=== PATIENT | female | born 1950 | race Caucasian/White ===

== ENCOUNTER → 2017-11-12 09:29 | Outpatient (CLI) | payer OTHER, SELFPAY ==
[2017-11-12 10:06] LABS: Hemoglobin A1c 7.7 % (4.2-6.3)
== END ==
PROVIDERS: Family Provider Family Medicine; PCP Family Medicine; Visit Provider Family Medicine
DX: E11.65 Type 2 diabetes mellitus with hyperglycemia (principal)
CPT/HCPCS: 36415; 83036

== ENCOUNTER → 2018-03-01 11:09 | Outpatient (CLI) | payer OTHER, SELFPAY ==
[2018-03-01 12:26] LABS: AST(SGOT) 36 U/L (15-37); Alanine Aminotransfer ALT/SGPT 44 U/L (13-56); Albumin, Serum 3.6 g/dL (3.2-5.0); Alkaline Phosphatase 64 U/L (45-117); Bilirubin, Direct 0.11 mg/dL (0.00-0.30); Cholesterol 213 mg/dL (200); Globulin 3.9 g/dL (2.2-4.2); High Density Lipoprotein 36 mg/dL; Protein, Total 7.5 g/dL (6.4-8.2); Triglycerides 576 mg/dL
== END ==
PROVIDERS: Family Provider Family Medicine; PCP Family Medicine; Visit Provider Family Medicine
DX: E78.5 Hyperlipidemia, unspecified (principal); E11.65 Type 2 diabetes mellitus with hyperglycemia
CPT/HCPCS: 36415; 80061; 80076

== ENCOUNTER → 2018-03-08 12:14 | Outpatient (CLI) | payer OTHER, SELFPAY ==
[2018-03-08 12:41] LABS: Erythrocyte Sedimentation Rate 14 mm/hr (0-30)
[2018-03-08 12:59] LABS: Hemoglobin A1c 8.4 % (4.2-6.3)
[2018-03-08 13:03] LABS: Rheumatoid Factor < 10.0 IU/mL (<15)
[2018-03-09 14:48] LABS: ANTINUCLEAR ANTIBODIES DIRECT Negative (Negative)
== END ==
PROVIDERS: Family Provider Family Medicine; PCP Family Medicine; Visit Provider Family Medicine
DX: E11.65 Type 2 diabetes mellitus with hyperglycemia (principal); M25.50 Pain in unspecified joint
CPT/HCPCS: 36415; 83036; 85652; 86038; 86431

== ENCOUNTER → 2018-04-25 10:04 | Outpatient (CLI) | payer OTHER, SELFPAY ==
--- NOTE | 2018-04-25 10:07 | BI_ITS ---
MAMMOGRAPHY - BILATERAL SCREENING REASON FOR EXAM: Female, 67 years old. Routine annual screening examination. PERTINENT HISTORY: Non-contributory. History of bilateral excisional breast biopsy. TECHNIQUE: Digital bilateral breast deedee (3D mammographic acquisition) in the CC and MLO projections. 2-D mediolateral oblique (MLO) and craniocaudad (CC) views of both breasts were obtained. CAD: Full Field Digital Mammography with Computer Added Detection was performed. COMPARISON: Comparison is made with prior examination dated April 22, 2017. FINDINGS: Breast Composition: The breasts are almost entirely fatty. There are no dominant masses or suspicious calcifications. Stable 6 mm well-defined nodule in the mid lateral aspect of the left breast. This most likely represents a small lymph node. No other significant abnormalities are identified. There has been no significant change since the prior study. BI/SCREENING MAMM (CAD), BILAT IMPRESSION: Stable bilateral screening mammogram. Yearly follow-up mammogram recommended. (A) ASSESSMENT CATEGORY: BIRADS Category 2: Benign. A letter regarding these results will be sent to the patient by the facility within 30 days. Approximately 10% of breast cancers are not detected by mammography. A normal mammogram should not delay biopsy of a clinically suspicious abnormality. [id number] Electronically Signed: Geoffrey Al MD at 13:20 EDT Tel [phone], Service support ,
--- NOTE | 2018-04-25 10:12 | BI_ITS ---
MAMMOGRAPHY - BILATERAL SCREENING REASON FOR EXAM: Female, 67 years old. Routine annual screening examination. PERTINENT HISTORY: Non-contributory. History of bilateral excisional breast biopsy. TECHNIQUE: Digital bilateral breast ford (3D mammographic acquisition) in the CC and MLO projections. 2-D mediolateral oblique (MLO) and craniocaudad (CC) views of both breasts were obtained. CAD: Full Field Digital Mammography with Computer Added Detection was performed. COMPARISON: Comparison is made with prior examination dated April 22, 2017. FINDINGS: Breast Composition: The breasts are almost entirely fatty. There are no dominant masses or suspicious calcifications. Stable 6 mm well-defined nodule in the mid lateral aspect of the left breast. This most likely represents a small lymph node. No other significant abnormalities are identified. There has been no significant change since the prior study. BI/Bilat Brst Screen [place] Add-On IMPRESSION: Stable bilateral screening mammogram. Yearly follow-up mammogram recommended. (A) ASSESSMENT CATEGORY: BIRADS Category 2: Benign. A letter regarding these results will be sent to the patient by the facility within 30 days. Approximately 10% of breast cancers are not detected by mammography. A normal mammogram should not delay biopsy of a clinically suspicious abnormality. [id number] Electronically Signed: Geoffrey Al MD at 13:20 EDT Tel [phone], Service support ,
== END ==
PROVIDERS: Family Provider Family Medicine; PCP Family Medicine; Visit Provider Obstetrics & Gynecology
DX: Z12.31 Encounter for screening mammogram for malignant neoplasm of breast (principal)
CPT/HCPCS: 77063; 77067

== ENCOUNTER → 2018-05-18 15:40 | Outpatient (CLI) | payer OTHER, SELFPAY ==
[2018-05-24 14:39] LABS: HPV APTIMA, High Risk Positive (Negative)
== END ==
PROVIDERS: Family Provider Family Medicine; PCP Family Medicine; Referring Provider Nurse Practitioner Women's Health; Visit Provider Nurse Practitioner Women's Health
DX: Z12.4 Encounter for screening for malignant neoplasm of cervix (principal)
CPT/HCPCS: 88175; G0145

== ENCOUNTER → 2018-06-08 08:28 | Outpatient (CLI) | payer OTHER, SELFPAY | PROVIDERS: Family Provider Family Medicine; PCP Family Medicine; Referring Provider Family Medicine; Visit Provider Family Medicine | DX: E11.65 Type 2 diabetes mellitus with hyperglycemia (principal) | CPT/HCPCS: 36415; 83036 ==

== ENCOUNTER 2018-09-28 13:00 | Outpatient (RCR) | payer OTHER, SELFPAY ==
[2018-07-22 10:37] VITALS: BMI 36.2
--- NOTE | 2018-09-06 10:14 | HP.PTEVAL_ITS ---
Patient's Visit Information JANESSA TORREZ is a 68 year old F referred to Physical Therapy by INDU Cohen with a diagnosis of lumbar IVDD, lumbar radiculopathy. Date of Evaluation: 09/01/18 Physical Therapist: Jonathan Melgoza DPT - Visit Plan Frequency: 2-3x /Week Duration: 4-6 Weeks Plan: Start with modalies to reduce symptoms. Pt. to be re assessment by Ariana Cantu PT with a more Sammy approach. Plan of care being swith to Ariana Cantu at this point in time. - Subjective Findings: Pt. is here today for here initial evaluation with diagnosis of lumbar radiculopathy, IVDD or lumbar region. Pt. reports having increased pain for a few months now, but has become worse recently. She was going to chiropractor and would have relief for 1 week or so. Pt. has stopped going to chiropractor as consistently. Pt. has pain in lumbar spine and down both legs at times,but R is worse than left. Pt. reports pain does not extend below her knee anymore. She reports she was having N/T in her feet, but has relieved since seeing chiropractor. Pt. reprots having initial relief with chiro, but is not fully better. pt. has greatest pain in her hips currently. Pt. is hopeful to reduce symptosm in order to get back to all recreational dancing. - Pain lumbar spine Pain Intensity (Out of 10): 4 Pain Intensity Range: 2, 8 BLEs Pain Intensity (Out of 10): 4 Pain Intensity Range: 2, 8 - Objective POSTURE: Pt. has generally slouched posture. Pt. has reduced lumbar lordosis. Equal illiac crest heights bilaterally. PALPATION: pt. has increasd pain with palpation of lumbar erector spine and spring testing of L1-S1 (hypomobiltiy noted). NEURO: pt. has normal sensation of bilateral LEs. Pt. has normal DTR of bilateral LEs. Pt. is able to rise on her heels and toes without LOB, but did require balance aide. ROM: LUMBAR SPINE: Flexion- min loss increase NW, Ext mod/max loss increase NW, SB min loss bilat NE, rotation min loss bilat NE. Pt. has greatest problems with attempts to extend. Pt. has tight bilateral HS. Pt. has tight bilateral hip flexors. Tight piriformis bilaterally. Pt. has pain with bilateral hip IR and ER (but not groin pain). MMT: PT. has 5/5 strength of bilateral LEs, except hip abd 4/5 and hip ext 4/5. Core strength- poor. GAIT: Pt. has reduced step length bilaterally. Pt. has minimal arm swing and gaurded posture with gait. Pt. reports increased pain with walking and standing. STAIRS: Pt. is able to negotiate with 1 HR with reciprocal pattern. - Special Tests L/S Slump test left side: Negative L/S Slump test right side: Negative L/S Left Straight Leg Raise: Negative L/S Right Straight Leg Raise: Negative Lumbar Standing: Flexion - Mechanical Response: No effect Lumbar Standing: Flexion - Symptoms During Testing: Increases Lumbar Standing: Flexion - Symptoms After Testing: No worse Lumbar Standing: Extension - Mechanical Response: No effect Lumbar Standing: Extension - Symptoms During Testing: Increases Lumbar Standing: Extension - Symptoms After Testing: No worse Comments:: limited ROM with extension Lumbar Standing: Right Side Glides - Mechanical Response: No effect Lumbar Standing: Right Side [place] - Symptoms During Testing: No effect Lumbar Standing: Right Side [place] - Symptoms After Testing: No effect Lumbar Standing: Left Side [place] - Mechanical Response: No effect Lumbar Standing: Left Side [place] - Symptoms During Testing: No effect Lumbar Standing: Left Side [place] - Symptoms After Testing: No effect Comments:: Pt. unable to lie on stomach today. Lumbar Static: Slouched Sit - Mechanical Response: No effect Lumbar Static: Slouched Sit - Symptoms During Testing: No effect Lumbar Static: Slouched Sit - Symptoms After Testing: No effect Lumbar Static: Sitting Erect - Mechanical Response: No effect Lumbar Static: Sitting Erect - Symptoms During Testing: No effect Lumbar Static: Sitting Erect - Symptoms After Testing: No effect - Goals Goal 1:: Pt. to be I with HEP. Goal Time Frame: 4-6 Weeks Goal 2:: Pt. to have increased lumbar ROM by 25% in all directions without increase in symptoms. Goal Time Frame: 4-6 Weeks Goal 3:: Pt. to sleep throughout the night with 0-2/10 pain in lumbar spine and BLEs allowing for increased quality of life. Goal Time Frame: 4-6 Weeks Goal 4:: Pt. to have increased core strength by 1/2 grade, reducing stress applied to lumbar spine with all functional mobility. Goal Time Frame: 4-6 Weeks Goal 5:: Pt. to be educated in prophalxis techniques. Goal Time Frame: 4-6 Weeks Goal 6:: Pt. to resume dancing without increase in symptoms. Goal Time Frame: 4-6 Weeks - Rehabilitation Potential Physical Therapy Diagnosis: Pt. has signs and symptoms consistent with lumbar IVDD and lumbar radiculopathy. Pt. has very limited ROM into ext and did not appear to have a dirctional preference this date. Pt. has radiating symptoms into LEs. Pt. would benefit from PT to increase lumbar ROM, increase core/BLE strengthening and to reduce her lumbar pain. Rehabilitation Potential: Good - Anticipated Interventions Patient/Client Instruction: Educate patient on: Condition, Plan of Care, Risk Factors, Benefits of Fitness Program For the Purpose of:: To improve decision making, To facilitate caregiver knowledge, To improve self management, To prevent re-injury, To improve ability to perform tasks related to life management, To improve tolerance to ADL's Therapeutic Exercise to Include: Strength training, Power training, Endurance training, Balance training, Coordination, Body mechanics, Postural training, Flexibilty training, Passive ROM, Active ROM, Dynamic Lumbar Stabilization, Sammy Exercises For the Purpose of:: To decrease pain, To decrease swelling/inflammation, To increase ROM, To increase oxygenation perfusion, To improve muscle performance and motor function, To decrease level of supervision to perform tasks, To improve health of tissue, To decrease soft tissue restriction, To increase flexibility/ROM Manual Therapy Techniques to Include: Mobilization, Passive ROM, Functional dry needling, Soft tissue mobilization For the Purpose of:: To decrease pain, To decrease swelling/inflammation, To increase ROM, To improve nutrient delivery to tissue TENS: Yes IF ES: Yes Cryotherapy (ice pack, ice massage): Yes Thermo therapy (hot pack): Yes Ultrasound (thermal/non thermal): Yes For the Purpose of:: To decrease pain, To decrease swelling/inflammation, To increase ROM, To improve nutrient delivery to tissue Thank you for the opportunity to evaluate your patient. For Medicare and Medicare HMO plans, please review the plan of care and approve it. It will need to be FAXED BACK to us at [phone] for Medicare purposes. For Medicare only, by signing this I certify the plan of care. Please let me know if there are questions or concerns regarding this plan of care. Physician Signature: Date:
--- NOTE | 2018-09-28 13:45 | HP.PTDCSUM ---
HP - PT D/C Summary It has been my pleasure to treat JANESSA TORREZ under orders from INDU Cohen, for the diagnosis of lumbar IVDD, lumbar radiculopathy for a total of 10 visit(s). Discharge Date: Please see the following information for a summary of their discharge status. - Subjective Subjective: PATIENT REPORTS HER BACK ISN'T HURTING ANYMORE AND HER LEGS AREN'T SORE. STATES SHE THINKS SHE IS GETTING MORE USE TO THE EX'S. BECOMING MORE ACTIVE AND SOMETIMES FORGETS GOOD POSTURE AND BODY MECHANICS BECAUSE SHE DOESN'T HAVE PAIN. PATIENT REPORTS SHE DID HER EX'S YESTERDAY BUT DIDN'T TRY DANCING - IS STILL SICK. I KNOW I AM A LOT BETTER. PATIENT IS REPORTING CONTINUED IMPROVEMENT. - Pain lumbar spine Pain Intensity (Out of 10): 0 BLEs Pain Intensity (Out of 10): 0 - Overall Improvement % Improvement: 90 - Objective Objective/Function: ALL GOALS MET. PATIENT NO LONGER HAS C/O LBP, HAS BEEN TAUGHT PROPER POSTURE CONROL/BODY MECHANICS AND IS INDEP WITH A HOME PROGRAM. UPON EXAM TODAY: PALPATION: NO TENDERNESS WITH PALPATION OF LUMBAR, BUTTOCK OR HIP REGIONS. ROM: LUMBAR SPINE: Flexion- NIL - NE, Ext mod- NE, RIGHT SG - MIN - NE, LEFT SG - NIL. ARSALAN TESTING - NEGATIVE KAYLA. DURAL TESTING - NEGATIVE KAYLA. MMT: KAYLA LE STRENGTH 5/5 WITH MMT'ING. Core strength- FAIR MINUS. OTHER: BACK OSWESTRY HAS IMPROVED FROM 23 TO 10. - Goals Goal 1:: Pt. to be I with HEP. Goal Progress: Goal Met Goal 2:: Pt. to have increased lumbar ROM by 25% in all directions without increase in symptoms. Goal Progress: Goal Met Goal 3:: Pt. to sleep throughout the night with 0-2/10 pain in lumbar spine and BLEs allowing for increased quality of life. Goal Progress: Goal Met Goal 4:: Pt. to have increased core strength by 1/2 grade, reducing stress applied to lumbar spine with all functional mobility. Goal Progress: Goal Met Goal 5:: Pt. to be educated in prophalxis techniques. Goal Progress: Goal Met Goal 6:: Pt. to resume dancing without increase in symptoms. Goal Progress: Progressing - Plan Plan: D/C TO [facility] HOME PROGRAM. PATIENT IS AGREEABLE. - D/C Information If there are questions or concerns regarding this patient's physical therapy, please feel free to call me at [phone]. Thank you for the referral of this patient. Sincerely, Ariana Cantu PT, Cert MDT
--- OUTSIDE RECORDS SUMMARY | 2018-11-05 20:05 | XMS RPT_ITS ---
:1950 Author Organization OHIP Care Team Providers Name Role Phone Kali Dueñas Attending Unavailable Kali Dueñas Referring Unavailable Kali Deuñas Primary Care Unavailable Sarah William Attending Unavailable Kali Dueñas Primary Care Unavailable Sarah William Attending Unavailable Kali Dueñas Referring Unavailable Kali Dueñas Attending Unavailable Kali Dueñas Referring Unavailable Kali Dueñas Primary Care Unavailable Chanda Sanz Attending Unavailable Chanda Sanz Referring Unavailable Kali Dueñas Primary Care Unavailable Kali Dueñas Attending Unavailable Kali Dueñas Referring Unavailable Kali Dueñas Primary Care Unavailable Kali Dueñas Attending Unavailable SpenserKali Primary Care Unavailable Kali Smith PA-C Attending Unavailable Grayson Dueñasmond Primary Care Unavailable Chanda Sanz Attending Unavailable Kali Dueñas Referring Unavailable PROBLEMS PROBLEMS DATE TYPE CONDITION / CODE ATTENDING STATUS SOURCE 07/22/2018 Unknown R87.619 - Marcaisha, Active [facility] abnormal Hospital cytological Repository findings in specimens from cervix uteri / R87.619(ICD-10) 06/08/2018 Unknown E11.65 - Type 2 Kali Dueñas Active [place] diabetes mellitus [facility] with hyperglycemia Hospital / E11.65(ICD-10) Repository 05/18/2018 Unknown R10.2 - Pelvic and Chanda Sanz Active [place] perineal pain / Community R10.2(ICD-10) Hospital Repository 03/08/2018 Unknown M25.50 - Pain in Kali Dueñas Active [place] unspecified joint / Community M25.50(ICD-10) Hospital Repository 03/01/2018 Unknown E78.5 - Kali Dueñas Active [place] Hyperlipidemia, [facility] unspecified / Hospital E78.5(ICD-10) Repository PROCEDURES PROCEDURES No Procedure Records FoundRESULTS RESULTS INITAL EVALUATION (1) Observed: 09/06/2018 Status: F Source: [place] - PT 10:14 AM [facility] REPOSITORY [facility] [place] [address] / REHABILITATION SERVICES INITIAL EVALUATION MR#: [id number] Acct: [id number] Name: ASHWINI TORREZ Rep #: [id number] : 1950 68 From: Jonathan Melgoza DPT Referring Dr.: Kali GRIGGS Status: REG RCR Insurance: [facility] SELF PAY INSURANCE Patient's Visit Information ASHWINI TORREZ is a 68 year old F referred to Physical Therapy by INDU Cohen with a diagnosis of lumbar IVDD, lumbar radiculopathy. Date of Evaluation: 09/01/18 Physical Therapist: Jonathan Melgoza DPT - Visit Plan Frequency: 2-3x /Week Duration: 4-6 Weeks Plan: Start with modalies to reduce symptoms. Pt. to be re assessment by Ariana Cantu PT with a more Sammy approach. Plan of care being swith to Ariana Cantu at this point in time. - Subjective Findings: Pt. is here today for here initial evaluation with diagnosis of lumbar radiculopathy, IVDD or lumbar region. Pt. reports having increased pain for a few months now, but has become worse recently. She was going to chiropractor and would have relief for 1 week or so. Pt. has stopped going to chiropractor as consistently. Pt. has pain in lumbar spine and down both legs at times,but R is worse than left. Pt. reports pain does not extend below her knee anymore. She reports she was having N/T in her feet, but has relieved since seeing chiropractor. Pt. reprots having initial relief with chiro, but is not fully better. pt. has greatest pain in her hips currently. Pt. is hopeful to reduce symptosm in order to get back to all recreational dancing. - Pain lumbar spine Pain Intensity (Out of 10): 4 Pain Intensity Range: 2, 8 BLEs Pain Intensity (Out of 10): 4 Pain Intensity Range: 2, 8 - Objective POSTURE: Pt. has generally slouched posture. Pt. has reduced lumbar lordosis. Equal illiac crest heights bilaterally. PALPATION: pt. has increasd pain with palpation of lumbar erector spine and spring testing of L1-S1 (hypomobiltiy noted). NEURO: pt. has normal sensation of bilateral LEs. Pt. has normal DTR of bilateral LEs. Pt. is able to rise on her heels and toes without LOB, but did require balance aide. ROM: LUMBAR SPINE: Flexion- min loss increase NW, Ext mod/max loss increase NW, SB min loss bilat NE, rotation min loss bilat NE. Pt. has greatest problems with attempts to extend. Pt. has tight bilateral HS. Pt. has tight bilateral hip flexors. Tight piriformis bilaterally. Pt. has pain with bilateral hip IR and ER (but not groin pain). MMT: PT. has 5/5 strength of bilateral LEs, except hip abd 4/5 and hip ext 4/5. Core strength- poor. GAIT: Pt. has reduced step length bilaterally. Pt. has minimal arm swing and gaurded posture with gait. Pt. reports increased pain with walking and standing. STAIRS: Pt. is able to negotiate with 1 HR with reciprocal pattern. - Special Tests L/S Slump test left side: Negative L/S Slump test right side: Negative L/S Left Straight Leg Raise: Negative L/S Right Straight Leg Raise: Negative Lumbar Standing: Flexion - Mechanical Response: No effect Lumbar Standing: Flexion - Symptoms During Testing: Increases Lumbar Standing: Flexion - Symptoms After Testing: No worse Lumbar Standing: Extension - Mechanical Response: No effect Lumbar Standing: Extension - Symptoms During Testing: Increases Lumbar Standing: Extension - Symptoms After Testing: No worse Comments:: limited ROM with extension Lumbar Standing: Right Side Glides - Mechanical Response: No effect Lumbar Standing: Right Side [place] - Symptoms During Testing: No effect Lumbar Standing: Right Side [place] - Symptoms After Testing: No effect Lumbar Standing: Left Side [place] - Mechanical Response: No effect Lumbar Standing: Left Side [place] - Symptoms During Testing: No effect Lumbar Standing: Left Side [place] - Symptoms After Testing: No effect Comments:: Pt. unable to lie on stomach today. Lumbar Static: Slouched Sit - Mechanical Response: No effect Lumbar Static: Slouched Sit - Symptoms During Testing: No effect Lumbar Static: Slouched Sit - Symptoms After Testing: No effect Lumbar Static: Sitting Erect - Mechanical Response: No effect Lumbar Static: Sitting Erect - Symptoms During Testing: No effect Lumbar Static: Sitting Erect - Symptoms After Testing: No effect - Goals Goal 1:: Pt. to be I with HEP. Goal Time Frame: 4-6 Weeks Goal 2:: Pt. to have increased lumbar ROM by 25% in all directions without increase in symptoms. Goal Time Frame: 4-6 Weeks Goal 3:: Pt. to sleep throughout the night with 0-2/10 pain in lumbar spine and BLEs allowing for increased quality of life. Goal Time Frame: 4-6 Weeks Goal 4:: Pt. to have increased core strength by 1/2 grade, reducing stress applied to lumbar spine with all functional mobility. Goal Time Frame: 4-6 Weeks Goal 5:: Pt. to be educated in prophalxis techniques. Goal Time Frame: 4-6 Weeks Goal 6:: Pt. to resume dancing without increase in symptoms. Goal Time Frame: 4-6 Weeks - Rehabilitation Potential Physical Therapy Diagnosis: Pt. has signs and symptoms consistent with lumbar IVDD and lumbar radiculopathy. Pt. has very limited ROM into ext and did not appear to have a dirctional preference this date. Pt. has radiating symptoms into LEs. Pt. would benefit from PT to increase lumbar ROM, increase core/BLE strengthening and to reduce her lumbar pain. Rehabilitation Potential: Good - Anticipated Interventions Patient/Client Instruction: Educate patient on: Condition, Plan of Care, Risk Factors, Benefits of Fitness Program For the Purpose of:: To improve decision making, To facilitate caregiver knowledge, To improve self management, To prevent re-injury, To improve ability to perform tasks related to life management, To improve tolerance to ADL's Therapeutic Exercise to Include: Strength training, Power training, Endurance training, Balance training, Coordination, Body mechanics, Postural training, Flexibilty training, Passive ROM, Active ROM, Dynamic Lumbar Stabilization, Sammy Exercises For the Purpose of:: To decrease pain, To decrease swelling/inflammation, To increase ROM, To increase oxygenation perfusion, To improve muscle performance and motor function, To decrease level of supervision to perform tasks, To improve health of tissue, To decrease soft tissue restriction, To increase flexibility/ROM Manual Therapy Techniques to Include: Mobilization, Passive ROM, Functional dry needling, Soft tissue mobilization For the Purpose of:: To decrease pain, To decrease swelling/inflammation, To increase ROM, To improve nutrient delivery to tissue TENS: Yes IF ES: Yes Cryotherapy (ice pack, ice massage): Yes Thermo therapy (hot pack): Yes Ultrasound (thermal/non thermal): Yes For the Purpose of:: To decrease pain, To decrease swelling/inflammation, To increase ROM, To improve nutrient delivery to tissue Thank you for the opportunity to evaluate your patient. For Medicare and Medicare HMO plans, please review the plan of care and approve it. It will need to be FAXED BACK to us at [phone] for Medicare purposes. For Medicare only, by signing this I certify the plan of care. Please let me know if there are questions or concerns regarding this plan of care. 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 [place] [address] OFFICE VISIT Date of Service: 05/18/18 MR#: [id number] Acct: [id number] Name: ASHWINI TORREZ Rep #: [id number] : 1950 Provider: JENNIFER Sanz Age/Sex: 67/F Location: [facility] Status: Signed with Addenda ADDENDUM by JENNIFER Sanz on 08/29/18 at 1640 Addendum entered and electronically signed by SHANKAR Mccabe 08/29/18 16:40: Rectal exam was deferred. No masses palpated Assessment AND Plan Problems 1. Encounter for gynecological examination with abnormal finding Z01.411 2. 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 Pelvic pain in female R10.2 4. Atrophic vaginitis N95.2 5. Recurrent UTI N39.0 Plan - SHANKAR Mccabe Completed breast and pelvic exam Reviewed diet and exercise Pap thin prep pap with HPV Mammogram recent Ultrasound Colonoscopy up to date Bone density follow with PCP Macrobid 100mg postcoidally Rx start premarin vaginal cream OTC lubricant with intercourse RTO 1 year, prn with problems Chanda Sanz CORPORATE TAX MANAGER Orders Orders: Medications New: nitrofurantoin monohyd/m-cryst 100 mg 100 mg PO after intercourse; must administer with a meal/food 30 caps 0RF Discontinued: conjugated estrogens Discontinued Reason: Peasized amount at vaginal opening every othe Order Changed r night X 4 weeks then twice a week 30 grams 2RF 08/29/18 1640 <Electronically signed by Chanda CHAPARRO> Date Chanda Sanz SPINNING FRAME CLEANER-C cc: * Signed Intake Vital Signs05/18/18 Height 5 ft 3 in 05/18/18 Weight: 201 lb 05/18/18 Body Mass Index (BMI) 35.6 05/18/18 Blood Pressure 162/98 H Intake Visit Reasons: ANNUAL Chief Complaint: est annual Respiratory Care Technician Required: No Is patient in pain?: No Allergies acetaminophen [From NyQuil] Allergy (Verified 05/18/18 09:51) Hives amoxicillin [From Augmentin] Allergy (Verified 05/18/18 09:51) Hives cefprozil [From Cefzil] Allergy (Verified 05/18/18 09:51) Hives clavulanic acid [From Augmentin] Allergy (Verified 05/18/18 09:51) Hives dextromethorphan [From NyQuil] Allergy (Verified 05/18/18 09:51) Hives doxylamine [From NyQuil] Allergy (Verified 05/18/18 09:51) Hives erythromycin base Allergy (Verified 05/18/18 09:51) Hives gatifloxacin [From Tequin] Allergy (Verified 05/18/18 09:51) Hives ibuprofen [From DayQuil Sinus Pressure/Pain] Allergy (Verified 05/18/18 09:51) Other Iodinated Contrast- Oral and IV Dye [CONTRASTS] Allergy (Verified 05/18/18 09:51) Hives lincomycin Allergy (Verified 05/18/18 09:51) Hives metoclopramide [From Reglan] Allergy (Verified 05/18/18 09:51) Other pseudoephedrine [From NyQuil] Allergy (Verified 05/18/18 09:51) Hives CHOLESTEROL MEDS Allergy (Uncoded 05/18/18 09:51) Other Medications Budesonide/Formoterol 160/4.5 [Symbicort 160/4.5 Mcg Inhaler (SP)] 2 puff INHALATION BID PRN 05/21/16 [History Confirmed 05/18/18] Calcium Carbonate [Calcium] 600 mg PO DAILY 05/21/16 [History Confirmed 05/18/18] Lisinopril/Hydrochlorothiazide [Zestoretic 20/12.5 Tablet] 1 tab PO BID 05/21/16 [History Confirmed 05/18/18] Metformin HCl [Metformin HCl ER] 1,000 mg PO DAILY 05/21/16 [History Confirmed 05/23/17] Metformin HCl [Metformin HCl ER] 500 mg PO QHS 05/21/16 [History Confirmed 05/18/18] Montelukast [Singulair] 10 mg PO DAILY 05/21/16 [History Confirmed 05/23/17] Simvastatin [Zocor] 40 mg PO DAILY 05/21/16 [History Confirmed 05/18/18] Hydroxyzine HCl 25 mg PO DAILY 01/31/17 [History Confirmed 05/23/17] Phenazopyridine HCl [Pyridium] 200 mg PO BID PRN PRN #10 tab 05/23/17 [Rx] cetirizine 10 mg capsule PO cap 05/18/18 [History Confirmed 05/18/18] conjugated estrogens 0.625 mg/gram vaginal cream See Rx Instructions .ROUTE .COMPLEX #30 g 05/18/18 [Rx Confirmed 05/18/18] methylcellulose (laxative) 500 mg tablet 500 mg PO ONCE 05/18/18 [History Confirmed 05/18/18] multivitamin,lx-dsml-ubpwnnlt tablet 1 tab PO DAILY 05/18/18 [History Confirmed 05/18/18] nitrofurantoin monohydrate/macrocrystals 100 mg capsule 100 mg PO .COMPLEX #30 cap 05/18/18 [Rx Confirmed 05/18/18] omeprazole 40 mg capsule,delayed release 40 mg PO DAILY 05/18/18 [History Confirmed 05/18/18] Is last menstrual period known: No Post menopausal: Yes Patient : No : No PFSH Medical History Arthritis (Acute) Asthma (Acute) Carotid stenosis (Acute) Diabetes (Acute) Gastrointestinal problem (Acute) High triglycerides (Acute) Hyperlipidemia (Acute) Mass of both breasts on mammogram (Acute) Hypertension (Chronic) Surgical History H/O oophorectomy (Acute) H/O tubal ligation (Acute) History of ear surgery (Acute) Hx of cholecystectomy (Acute) fallopian tube surgery (Acute) Family History Father No problems noted. Mother CVA (cerebral vascular accident) Heart disease Sister Cancer lung Social History Smoking Status: Never smoker alcohol intake: never substance use type: does not use caffeine: Yes what type of physical activity do you participate in: walking seatbelt use: always do you feel safe at home: Yes additional social history: [employer]- Patient is retired Pregancy History 3 Elective abortions Hx Para 0 Spontaneous abortions 3 HPI ANNUAL: Details: ASHWINI TORREZ is a 67 year old who presents for annual exam. Recurrent UTI but only after intercourse. Affecting marriage. Also states vaginal dryness problematic. She is also have pain in lower left abdomen and feels lumps. Sister with colon cancer/mets Last PAP: 2016 neg pap with positive HPV History of abnormal PAP: yes Last mammogram: 04/2018 History of abnormal mammogram: no Colon cancer screenin-rpt 10 years Other preventative health care screenings: BMD with PCP Female Reproductive History Menopausal Treatment: Yes HRT (Took oral short time after menopause but many years ago) ROS Const Constitutional: Denies fatigue, weight gain or weight loss Cardio Card: Denies chest pain Resp Resp: Denies cough or shortness of breath with activity GI GI: Denies abdominal pain, constipation, change in stools, vomiting or bloating : Reports as per HPI; denies urinary frequency, pelvic pain, urinary urgency, vaginal discharge, vaginal itching, urinary incontinence or difficulty urinating Exam Const General: cooperative, healthy appearing, no acute distress, well developed Orientation: alert, oriented to person, oriented to place HENMT Head: normal to inspection Neck Neck: normal visual inspection Thyroid: thyroid normal Lymphatic: no lymphadenopathy noted Chest Breast inspection: normal inspection of the breasts, normal inspection of the axillae Breast palpation: normal palpation of the breasts, normal palpation of the axillae, no axillary lymphadenopathy Resp Effort AND Inspection: normal respiratory effort GI Palpation: soft, nontender, no masses Rectal Exam: mass, deferred External Female Exam: normal external appearance Urethra: normal palpation, other (slightly dilated) Speculum Exam - Vagina: normal vaginal discharge, atrophic vaginal mucosa Speculum Exam - Cervix: normal appearance of the cervix (pap collected) Bimanual Exam- Vagina AND Uterus: normal bimanual exam, uterine size normal, uterine shape normal, uterus non-tender Bimanual Exam- Adnexa, other: normal adnexae, no adnexal masses, adnexae non-tender, cystocele Pelvic Support: cystocele mild Neuro General: alert, oriented x3 Psych Affect: normal affect Assessment AND Plan Problems 1. Encounter for gynecological examination with abnormal finding Z01.411 2. 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 Pelvic pain in female R10.2 4. Atrophic vaginitis N95.2 5. Recurrent UTI N39.0 Plan Completed breast and pelvic exam Reviewed diet and exercise Pap thin prep pap with HPV Mammogram recent Ultrasound Colonoscopy up to date Bone density follow with PCP Macrobid 100mg postcoidally Rx start premarin vaginal cream OTC lubricant with intercourse RTO 1 year, prn with problems Chanda Sanz CORPORATE TAX MANAGER Orders Orders: Medications New: nitrofurantoin monohyd/m-cryst 100 mg 100 mg PO after intercourse; must administer with a meal/food 30 caps 0RF Discontinued: Coding Level of Care Code Off vis,est,prev 65+yrs Diagnoses Encounter for gynecological examination with abnormal finding Z01.411 Gynecological examination findings: abnormal findings PRESENT History of HPV infection Z86.19 Pelvic pain in female R10.2 Atrophic vaginitis N95.2 Recurrent UTI N39.0 05/18/18 1047 <Electronically signed by Chanda CHAPARRO> Date Chanda CHAPARRO Cosigner Signature: Date (if applicable) CC: ORNAMENTAL IRONWORKING SUPERVISOR OFFICE VISIT Observed: 07/22/2018 Status: F Source: [place] REPORT 11:10 AM [facility] REPOSITORY [facility] [address] [place] [address] OFFICE VISIT Date of Service: 07/22/18 MR#: [id number] Acct: [id number] Name: ASHWINI TORREZ Lawrence Rep #: [id number] : 1950 Provider: Sarah William MD Age/Sex: 67/F Location: [facility] Status: Signed Intake Vital Signs07/22/18 Height 5 ft 3 in 07/22/18 Weight: 204 lb 8 oz 07/22/18 Body Mass Index (BMI) 36.2 07/22/18 Blood Pressure 118/80 Intake Visit Reasons: COLP Respiratory Care Technician Required: No Is patient in pain?: No Allergies acetaminophen [From NyQuil] Allergy (Verified 07/22/18 10:37) Hives amoxicillin [From Augmentin] Allergy (Verified 07/22/18 10:37) Hives cefprozil [From Cefzil] Allergy (Verified 07/22/18 10:37) Hives clavulanic acid [From Augmentin] Allergy (Verified 07/22/18 10:37) Hives dextromethorphan [From NyQuil] Allergy (Verified 07/22/18 10:37) Hives doxylamine [From NyQuil] Allergy (Verified 07/22/18 10:37) Hives erythromycin base Allergy (Verified 07/22/18 10:37) Hives gatifloxacin [From Tequin] Allergy (Verified 07/22/18 10:37) Hives ibuprofen [From DayQuil Sinus Pressure/Pain] Allergy (Verified 07/22/18 10:37) Other Iodinated Contrast- Oral and IV Dye [CONTRASTS] Allergy (Verified 07/22/18 10:37) Hives lincomycin Allergy (Verified 07/22/18 10:37) Hives metoclopramide [From Reglan] Allergy (Verified 07/22/18 10:37) Other pseudoephedrine [From NyQuil] Allergy (Verified 07/22/18 10:37) Hives CHOLESTEROL MEDS Allergy (Uncoded 05/18/18 09:51) Other Medications Budesonide/Formoterol 160/4.5 [Symbicort 160/4.5 Mcg Inhaler (SP)] 2 puff INHALATION BID PRN 05/21/16 [History Confirmed 07/22/18] Calcium Carbonate [Calcium] 600 mg PO DAILY 05/21/16 [History Confirmed 07/22/18] Lisinopril/Hydrochlorothiazide [Zestoretic 20/12.5 Tablet] 1 tab PO BID 05/21/16 [History Confirmed 07/22/18] Metformin HCl [Metformin HCl ER] 1,000 mg PO DAILY 05/21/16 [History Confirmed 07/22/18] Metformin HCl [Metformin HCl ER] 500 mg PO QHS 05/21/16 [History Confirmed 07/22/18] Montelukast [Singulair] 10 mg PO DAILY 05/21/16 [History Confirmed 07/22/18] Simvastatin [Zocor] 40 mg PO DAILY 05/21/16 [History Confirmed 07/22/18] Hydroxyzine HCl 25 mg PO DAILY 01/31/17 [History Confirmed 07/22/18] Phenazopyridine HCl [Pyridium] 200 mg PO BID PRN PRN #10 tab 05/23/17 [Rx Confirmed 07/22/18] cetirizine 10 mg capsule PO cap 05/18/18 [History Confirmed 07/22/18] estradiol 0.01% (0.1 mg/gram) vaginal cream See Rx Instructions VAGINAL .COMPLEX #42.5 g 05/18/18 [Rx Confirmed 07/22/18] methylcellulose (laxative) 500 mg tablet 500 mg PO ONCE 05/18/18 [History Confirmed 07/22/18] multivitamin,ga-fmtj-mawldbpv tablet 1 tab PO DAILY 05/18/18 [History Confirmed 07/22/18] nitrofurantoin monohydrate/macrocrystals 100 mg capsule 100 mg PO .COMPLEX #30 cap 05/18/18 [Rx Confirmed 07/22/18] omeprazole 40 mg capsule,delayed release 40 mg PO DAILY 05/18/18 [History Confirmed 07/22/18] Is last menstrual period known: No Post menopausal: No Patient : No : No PFSH PFSH Medical History Arthritis (Acute) Asthma (Acute) Carotid stenosis (Acute) Diabetes (Acute) Gastrointestinal problem (Acute) High triglycerides (Acute) Hyperlipidemia (Acute) Mass of both breasts on mammogram (Acute) Hypertension (Chronic) Surgical History H/O oophorectomy (Acute) H/O tubal ligation (Acute) History of ear surgery (Acute) Hx of cholecystectomy (Acute) fallopian tube surgery (Acute) Family History Father No problems noted. Mother CVA (cerebral vascular accident) Heart disease Sister Cancer lung Social History Smoking Status: Never smoker alcohol intake: never substance use type: does not use caffeine: Yes what type of physical activity do you participate in: walking seatbelt use: always do you feel safe at home: Yes additional social history: [employer]- Patient is retired Pregancy History 3 Elective abortions Hx Para 0 Spontaneous abortions 3 HPI COLP: Details: ASHWINI TORREZ is a 67 year old who presents for colposcopy. she has a history of normal paps but now has a new partner for several years and had an ascus hpv positive pap smear. she denies any bleeding f ROS Const Constitutional: Reports system reviewed and no additional complaints, except as docu; denies chills, fever(s), weight loss or weight gain GI GI: Reports as per HPI; denies vomiting, nausea, constipation, cramping, bloating or abdominal pain : Reports as per HPI; denies vaginal dryness, vaginal discharge, urinary urgency, urinary frequency or urinary incontinence Exam Const General: cooperative, healthy appearing, comfortable, well developed Orientation: alert HENMT Head: normal to inspection Resp Effort AND Inspection: normal respiratory effort GI Inspection: normal to inspection, non-distended Palpation: soft, no hepatosplenomegaly, no guarding External Female Exam: normal external appearance, normal appearance of the urethra Urethra: normal appearance of the urethra Speculum Exam - Vagina: normal appearance of the vagina, normal vaginal discharge, no lesions Speculum Exam - Cervix: normal appearance of the cervix, nontender Bimanual Exam- Vagina AND Uterus: No cervical tenderness, normal bimanual exam, uterine mobility normal, uterine consistency normal, uterine shape normal, uterine size normal, uterus non-tender Bimanual Exam- Adnexa, other: normal adnexae, no adnexal masses Office Procedures Colposcopy Colposcopy Reason for colposcopy: ASCUS, positive HR HPV types Pap/AILEEN history: no prior abnormal pap Consent Signed: Yes Time out performed: Yes Time: 11:07 Acetowhite epithelium (cervix): none Punctation (cervix): none Mosaicism (cervix): none Abnormal vessels (cervix): none Biopsies (cervix): none Acetowhite epithelium (vagina): none Punctation (vagina): none Mosaicism (vagina): none Cervix+upper/adj vagina: Yes biopsy Details: adequate colopscopy SCJ fully visualized repeat pap hpv in 1 year Assessment AND Plan Problems 1. ASCUS with positive high risk HPV cervical R87.610; R87.810 first abnormal pap ever, neg colp. repeat pap/hpv in 1 year due to new partner in the last few years, recommend pap/hpv until age 70-75. discussed ep management vs screening patient prefers screening Plan neg colpl see problem list details, repeat pap hpv 1 year Orders Orders: Coding Level of Care Code Off vis,est,level 3 Diagnoses ASCUS with positive high risk HPV cervical R87.610; R87.810 Additional Codes Colposcopy - Cervix+upper/adj vagina: Yes ([id number]) 07/22/18 1110 <Electronically signed by Sarah William MD> Date Sarah William MD Cosigner Signature: Date (if applicable) CC: HEMOGLOBIN A1C Collected: 06/08/2018 Status: F Source: [place] 8:35 AM [facility] REPOSITORY TYPE CODE TESTS RESULT OUT OF RANGE REFERENCE UNITS LAB L501.9985 4.2-6.3 % High HGB A1C 7.0 Performed By: #### L501.9985 #### [facility] [place], [address] PAP IG HPV APTIMA Collected: 05/18/2018 Status: F Source: [place] 18,45 10:00 AM [facility] REPOSITORY Order Comment: CYTOLOGY INFORMATION: - CLINICAL INFORMATION: - DATE LMP/MENOPAUSE: ANNUAL LMP - COLLECTION VIAL: Thin Prep Vial - R D INTERNSHIP SOURCE: CERVICAL/ENDOCERVICAL - COLLECTION TECHNIQUE: BRUSH/SPATULA Specimen Comment: [id number] Specimen Comment: Source.............Cervix;Endocervix Specimen Comment: No. of containers..01 ThinPrep Vial TYPE CODE TESTS RESULT OUT OF REFERENCE UNITS RANGE LAB L7400.0800 . High DIAGN Comment Result Comment: EPITHELIAL CELL ABNORMALITY. ATYPICAL SQUAMOUS CELLS OF UNDETERMINED SIGNIFICANCE. CELLULAR CHANGES ASSOCIATED WITH ATROPHY ARE PRESENT. LAB L7400.0900 . Normal ADEQ Comment Result Comment: Satisfactory for evaluation. Endocervical component may not be distinguished in cases of atrophy. LAB L7400.1400 . Normal PERFORM Comment Result Comment: Regina Osorio, Television Analyzer (ASCP) LAB L7400.1700 . Normal SIGN Comment Result Comment: Ned Roman MD (Charles), Pathologist LAB L7400.1720 . Normal Path prov. Comment ICD9 Result Comment: R87.610 LAB L7400.2575 . Normal TEST METHOD Comment Result Comment: This liquid based ThinPrep(R) pap test was screened with the use of an image guided system. LAB L7400.2600 . Normal . COMM LAB L7400.2700 . Normal PAPSMR Comment Result Comment: The Pap smear is a screening test designed to aid in the detection of premalignant and malignant conditions of the uterine cervix. It is not a diagnostic procedure and should not be used as the sole means of detecting cervical cancer. Both false-positive and false-negative reports do occur. LAB L7400.2760 Negative High HPV APTIMA, HR Positive Result Comment: This test detects fourteen high-risk HPV types (16/18/31/33/35/39/45/ 51/52/56/58/59/66/68) without differentiation. Performed at: [address] [place] [id number] Construction Plumber: Jessica Wang MD, Phone: [phone] Performed at: [address] [id number] Construction Plumber: Micaela Gutierrez MD, Phone: [phone] Performed at: [address] [id number] Construction Plumber: Micaela Gutierrez MD, Phone: [phone] Performed By: #### L7400.0280 #### [facility] (refer to report for specific site) refer to report for address and phone number Observed: 04/27/2018 Status: F Source: [place] URINE CULTURE 8:38 PM [facility] REPOSITORY Sp. Request/Comment: - Specimen received in preservative Culture Result - >=100,000 CFU/ml Escherichia coli --> ABNORMAL ALERT ORGANISM: Escherichia coli METHOD: Minimum inhibitory concentration(Vitek) Antibiotic Interp OTTONIEL Status Ampicillin RESISTANT >=32 F Gentamicin SUSCEPTIBLE <=1 F Trimeth sulfameth SUSCEPTIBLE <=20 F Cefazolin SUSCEPTIBLE <=4 F CLSI breakpoints for therapy of uncomplicated UTI's due to E.coli, K.pneumoniae, and P.mirabilis were applied and may be used to predict the activity of oral agents(cefaclor, cefdinir, cefpodoxime, cefp rozil, cefuroxime, cephalexin, loracarbef). Ciprofloxacin SUSCEPTIBLE <=0.25 F Nitrofurantoin SUSCEPTIBLE <=16 F Cefepime SUSCEPTIBLE <=1 F Piperacillin/Tazobac SUSCEPTIBLE <=4 F Ampicillin Sulbact INTERMEDIATE 16 F Ceftriaxone SUSCEPTIBLE <=1 F Meropenem SUSCEPTIBLE <=0.25 F Ertapenem SUSCEPTIBLE <=0.5 F Performed By: #### URCUL #### [facility] [address] [place], [place] [address] CNOV Observed: 04/27/2018 Status: COMPLETED Source: [place] 8:30 PM [facility] REPOSITORY Office Visit (WSTR) ASHWINI TORREZ ([id number]) 1950 F Date Time Provider Department 04/27/18 8:30 PM OBED FAJARDO [facility] During your visit today, we recorded the following information about you: Temperature Pulse Respiration Blood pressure 98.9 degrees 76/minute 16/minute 122/84 Weight 91.6 kg Obed Fajardo MD 04/27/2018 8:44 PM Signed Patient presents with: Urinary Frequency: burning with urination, lower back pain x 2 days HPI: Symptoms for since yesterday. Dysuria: Yes Frequency: Yes Hematuria: No Nausea: No Fever or chills: No Back pain: Yes, mid lower back Abdominal pain: suprapubic Prior UTI: Yes, feels similar Personal history of kidney stones: once in 1970s PAST MEDICAL HISTORY Diagnosis Date - Asthma - Carotid stenosis - Diabetes mellitus, type 2 (HCC) - Hyperlipidemia - Hypertension - Sliding hiatal hernia PAST SURGICAL HISTORY Procedure Laterality Date - BREAST BIOPSY Bilateral benign - CHOLECYSTECTOMY - F SALPINGO-OOPHORECTOMY Left - PAST SURGICAL HISTORY OF left TM repair - TUBAL LIGATION MEDICATIONS: Current Outpatient Prescriptions: metFORMIN (GLUCOPHAGE) 500 mg tablet Take 500 mg by mouth daily with breakfast. simvastatin (ZOCOR) 40 mg tablet Take 40 mg by mouth daily at bedtime. lisinopril-hydrochlorothiazide (PRINZIDE,ZESTORETIC) 20-12.5 mg per tablet Take 1 tablet by mouth once daily. montelukast sodium (SINGULAIR ORAL) Take by mouth. HYDROXYZINE PAMOATE ORAL Take by mouth. Omeprazole 40 mg capsule Take 40 mg by mouth once daily. FA/mv,Ca,iron,min/lycopene/lut (MULTIVITAL ORAL) Take by mouth. calcium carbonate/vitamin D3 (CALCIUM 500 + D ORAL) Take by mouth. cetirizine HCl (ZYRTEC ORAL) Take by mouth. pioglitazone (ACTOS) 30 mg tablet Take 30 mg by mouth once daily. ubidecarenone (CO Q-10 ORAL) Take by mouth. glimepiride (AMARYL) 4 mg tablet Take 4 mg by mouth daily with breakfast. No current facility-administered medications for this visit. ALLERGIES: ALLERGIES Allergen Reactions - Augmentin [Amoxicil* Rash - Cefzil [Cefprozil] Rash - Dayquil Allergy 12-* Hives - Erythromycin Rash - Ivp Dye [Iodine] Other: See Comments knot on head - Lincomycin Rash - Reglan [Metoclopram* Intolerance - Tequin [Gatifloxaci* Rash VITALS: BP 122/84 Pulse 76 Temp 37.2 ?C (98.9 ?F) (Tympanic) Resp 16 Wt 91.6 kg (202 lb) PHYSICAL EXAM: GEN: alert, uncomfortable, rocking in her seat, accompanied by her . HEENT: EOMI, conjunctiva clear, moist mucous membranes HEART: regular rate and rhythm, no murmurs LUNGS: clear to auscultation, no wheezes or crackles, no increased WOB ABDOMEN: Soft, obese, no masses, no suprapubic tenderness BACK: No CVA tenderness, points to lower lumbar as area of pain. ASSESSMENT/PLAN: 1. Urinary frequency - ICD9: 788.41, ICD10: R35.0 - UA positive for large johanny esterase and hematuria - UA DIP, URINE (POC) - URINE CULTURE - SULFAMETHOXAZOLE 800 MG-TRIMETHOPRIM 160 MG TABLET. Reports no issues with hyperkalemia, sometimes it is low. Requests - PHENAZOPYRIDINE 200 MG TABLET Obed Fajardo MD Referring Provider: SELF [200] Allergies As of Date: 04/27/2018 Noted Allergy Reaction AUGMENTIN (AMOXICILLIN-POT CLAVUL*04/27/2018 2 - Rash CEFZIL (CEFPROZIL) 04/27/2018 2 - Rash DAYQUIL ALLERGY 12-HR 04/27/2018 4 - Hives ERYTHROMYCIN 04/27/2018 2 - Rash IVP DYE (IODINE) 04/27/2018 14 - Other: See Comments Comments: knot on head LINCOMYCIN 04/27/2018 2 - Rash REGLAN (METOCLOPRAMIDE HCL) 04/27/2018 5 - Intolerance TEQUIN (GATIFLOXACIN) 04/27/2018 2 - Rash Date Reviewed: 04/27/2018 Reviewed by: Jodie Cuba Ma - Fully Assessed Reason for Visit: Urinary Frequency [1086] Cmt: burning with urination, lower back pain x 2 days Primary Visit Diagnosis:Urinary frequency [R35.0] Order(s):UA DIP, URINE (POC) [1145023] Order #: [id number] #:[id number] URINE CULTURE [SQURCUL] Order #: [id number] sulfamethoxazole-trimethoprim (BACTRIM DS) 800-160 mg per tabletTake 1 tablet by mouth twice daily for 5 days.Disp: 10 tabletRfl: 0 phenazopyridine (PYRIDIUM) 200 mg tabletTake 1 tablet by mouth three times daily as needed (bladder pain) for up to 3 days.Disp: 9 tabletRfl: 0 Prescriptions as of 04/27/2018 Sig: METFORMIN 500 MG TABLET Take 500 mg by mouth daily wi* SIMVASTATIN 40 MG TABLET Take 40 mg by mouth daily at * LISINOPRIL 20 MG-HYDROCHLOROT* Take 1 tablet by mouth once d* SINGULAIR ORAL Take by mouth. HYDROXYZINE PAMOATE ORAL Take by mouth. OMEPRAZOLE 40 MG CAPSULE,JOSE* Take 40 mg by mouth once serena* MULTIVITAL ORAL Take by mouth. CALCIUM 500 + D ORAL Take by mouth. ZYRTEC ORAL Take by mouth. PIOGLITAZONE 30 MG TABLET Take 30 mg by mouth once serena* CO Q-10 ORAL Take by mouth. GLIMEPIRIDE 4 MG TABLET Take 4 mg by mouth daily with* SULFAMETHOXAZOLE 800 MG-TRIME* Take 1 tablet by mouth twice * PHENAZOPYRIDINE 200 MG TABLET Take 1 tablet by mouth three * Problem List As Of Date: 04/27/2018 (None) Prescriptions ordered this encounter Disp Refills Start End SULFAMETHOXAZOLE 800 MG-TRIMETHOPRIM* 10 t* 0 04/27/2018 05/02/2018 Route: ORAL Sig: Take 1 tablet by mouth twice daily for 5 days. PHENAZOPYRIDINE 200 MG TABLET 9 ta* 0 04/27/2018 04/30/2018 Route: ORAL Sig: Take 1 tablet by mouth three times daily as needed (bladder pain) for up to 3 days. Encounter Status:Closed by OBED FAJARDO MD on 04/27/18 PROGRESS Observed: 04/27/2018 Status: COMPLETED Source: [place] 8:28 PM [facility] [place] REPOSITORY O ID: [id number] Author: Obed Fajardo Service: (none) Author Type: Physician Type: Progress Notes Filed: 04/27/2018 8:44 PM Note Text: Patient presents with: Urinary Frequency: burning with urination, lower back pain x 2 days HPI: Symptoms for since yesterday. Dysuria: Yes Frequency: Yes Hematuria: No Nausea: No Fever or chills: No Back pain: Yes, mid lower back Abdominal pain: suprapubic Prior UTI: Yes, feels similar Personal history of kidney stones: once in 1970s PAST MEDICAL HISTORY Diagnosis Date - Asthma - Carotid stenosis - Diabetes mellitus, type 2 (HCC) - Hyperlipidemia - Hypertension - Sliding hiatal hernia PAST SURGICAL HISTORY Procedure Laterality Date - BREAST BIOPSY Bilateral benign - CHOLECYSTECTOMY - F SALPINGO-OOPHORECTOMY Left - PAST SURGICAL HISTORY OF left TM repair - TUBAL LIGATION MEDICATIONS: Current Outpatient Prescriptions: metFORMIN (GLUCOPHAGE) 500 mg tablet Take 500 mg by mouth daily with breakfast. simvastatin (ZOCOR) 40 mg tablet Take 40 mg by mouth daily at bedtime. lisinopril-hydrochlorothiazide (PRINZIDE,ZESTORETIC) 20-12.5 mg per tablet Take 1 tablet by mouth once daily. montelukast sodium (SINGULAIR ORAL) Take by mouth. HYDROXYZINE PAMOATE ORAL Take by mouth. Omeprazole 40 mg capsule Take 40 mg by mouth once daily. FA/mv,Ca,iron,min/lycopene/lut (MULTIVITAL ORAL) Take by mouth. calcium carbonate/vitamin D3 (CALCIUM 500 + D ORAL) Take by mouth. cetirizine HCl (ZYRTEC ORAL) Take by mouth. pioglitazone (ACTOS) 30 mg tablet Take 30 mg by mouth once daily. ubidecarenone (CO Q-10 ORAL) Take by mouth. glimepiride (AMARYL) 4 mg tablet Take 4 mg by mouth daily with breakfast. No current facility-administered medications for this visit. ALLERGIES: ALLERGIES Allergen Reactions - Augmentin [Amoxicil* Rash - Cefzil [Cefprozil] Rash - Dayquil Allergy 12-* Hives - Erythromycin Rash - Ivp Dye [Iodine] Other: See Comments knot on head - Lincomycin Rash - Reglan [Metoclopram* Intolerance - Tequin [Gatifloxaci* Rash VITALS: BP 122/84 Pulse 76 Temp 37.2 ?C (98.9 ?F) (Tympanic) Resp 16 Wt 91.6 kg (202 lb) PHYSICAL EXAM: GEN: alert, uncomfortable, rocking in her seat, accompanied by her . HEENT: EOMI, conjunctiva clear, moist mucous membranes HEART: regular rate and rhythm, no murmurs LUNGS: clear to auscultation, no wheezes or crackles, no increased WOB ABDOMEN: Soft, obese, no masses, no suprapubic tenderness BACK: No CVA tenderness, points to lower lumbar as area of pain. ASSESSMENT/PLAN: 1. Urinary frequency - ICD9: 788.41, ICD10: R35.0 - UA positive for large johanny esterase and hematuria - UA DIP, URINE (POC) - URINE CULTURE - SULFAMETHOXAZOLE 800 MG-TRIMETHOPRIM 160 MG TABLET. Reports no issues with hyperkalemia, sometimes it is low. Requests - PHENAZOPYRIDINE 200 MG TABLET Obed Fajardo MD BILAT BRST SCREEN Observed: 04/25/2018 Status: F Source: [place] ADD[place]ON 10:12 AM [facility] REPOSITORY [facility] Imaging Services [address] [place] [address] Bilat Brst Screen [place] Add-On MR#: [id number] Acct: [id number] Name: ASHWINI TORREZ Rep #: [id number] : 1950 F 67 From: Geoffrey Al MD PCP: Kali Dueñas MD Status: REG CLI Study: Bilat Brst Screen [place] Add-On Date of Exam: 04/25/18 Exam# [id number] Ordering Dr: Sarah William MD MAMMOGRAPHY - BILATERAL SCREENING REASON FOR EXAM: Female, 67 years old. Routine annual screening examination. PERTINENT HISTORY: Non-contributory. History of bilateral excisional breast biopsy. TECHNIQUE: Digital bilateral breast ford (3D mammographic acquisition) in the CC and MLO projections. 2-D mediolateral oblique (MLO) and craniocaudad (CC) views of both breasts were obtained. CAD: Full Field Digital Mammography with Computer Added Detection was performed. COMPARISON: Comparison is made with prior examination dated April 22, 2017. FINDINGS: Breast Composition: The breasts are almost entirely fatty. There are no dominant masses or suspicious calcifications. Stable 6 mm well-defined nodule in the mid lateral aspect of the left breast. This most likely represents a small lymph node. No other significant abnormalities are identified. There has been no significant change since the prior study. BI/Bilat Brst Screen [place] Add-On IMPRESSION: Stable bilateral screening mammogram. Yearly follow-up mammogram recommended. (A) ASSESSMENT CATEGORY: BIRADS Category 2: Benign. A letter regarding these results will be sent to the patient by the facility within 30 days. Approximately 10% of breast cancers are not detected by mammography. A normal mammogram should not delay biopsy of a clinically suspicious abnormality. [id number] Electronically Signed: Geoffrey Al MD at 13:20 EDT Tel [phone], Service support , CC: Kali Dueñas MD; Sarah William MD Work Ticket Distributor: Signed SCREENING MAMM (CAD), Observed: 04/25/2018 Status: F Source: [place] 10:07 AM [facility] REPOSITORY [facility] Imaging Services [address] [place] [address] SCREENING MAMM (CAD), BILAT MR#: [id number] Acct: [id number] Name: ASHWINI TORREZ Rep #: [id number] : 1950 F 67 From: Geoffrey Al MD PCP: Kali Dueñas MD Status: REG CLI Study: SCREENING MAMM (CAD), BILAT Date of Exam: 04/25/18 Exam# [id number] Ordering Dr: Sarah William MD MAMMOGRAPHY - BILATERAL SCREENING REASON FOR EXAM: Female, 67 years old. Routine annual screening examination. PERTINENT HISTORY: Non-contributory. History of bilateral excisional breast biopsy. TECHNIQUE: Digital bilateral breast ford (3D mammographic acquisition) in the CC and MLO projections. 2-D mediolateral oblique (MLO) and craniocaudad (CC) views of both breasts were obtained. CAD: Full Field Digital Mammography with Computer Added Detection was performed. COMPARISON: Comparison is made with prior examination dated April 22, 2017. FINDINGS: Breast Composition: The breasts are almost entirely fatty. There are no dominant masses or suspicious calcifications. Stable 6 mm well-defined nodule in the mid lateral aspect of the left breast. This most likely represents a small lymph node. No other significant abnormalities are identified. There has been no significant change since the prior study. BI/SCREENING MAMM (CAD), BILAT IMPRESSION: Stable bilateral screening mammogram. Yearly follow-up mammogram recommended. (A) ASSESSMENT CATEGORY: BIRADS Category 2: Benign. A letter regarding these results will be sent to the patient by the facility within 30 days. Approximately 10% of breast cancers are not detected by mammography. A normal mammogram should not delay biopsy of a clinically suspicious abnormality. [id number] Electronically Signed: Geoffrey Al MD at 13:20 EDT Tel [phone], Service support , CC: Kali Dueñas MD; Sarah William MD Work Ticket Distributor: Signed ERYTHROCYTE SED RATE Collected: 03/08/2018 Status: F Source: [place] 12:20 PM [facility] REPOSITORY TYPE CODE TESTS RESULT OUT OF RANGE REFERENCE UNITS LAB L102.0000 0-30 mm/hr Normal SED RATE 14 Performed By: #### L101.9900 #### [facility] [address] [place], [place], [id number] HEMOGLOBIN A1C Collected: 03/08/2018 Status: F Source: [place] 12:20 PM [facility] REPOSITORY TYPE CODE TESTS RESULT OUT OF RANGE REFERENCE UNITS LAB L501.9985 4.2-6.3 % High HGB A1C 8.4 Performed By: #### L501.9985 #### [facility] [address] [place], [place], [address] RHEUMATOID FACTOR Collected: 03/08/2018 Status: F Source: [place] 12:20 PM [facility] REPOSITORY TYPE CODE TESTS RESULT OUT OF RANGE REFERENCE UNITS LAB L505.7010 <15 IU/mL Normal RHEUMATOID FAC < 10.0 Performed By: #### L505.7010 #### [facility] [address] [place], [place], [address] ANTINUCLEAR ANTIBODIES Collected: 03/08/2018 Status: F Source: [place] 12:20 PM [facility] REPOSITORY TYPE CODE TESTS RESULT OUT OF RANGE REFERENCE UNITS LAB L3100.5475 Negative Normal Negative ROSEMARY-DIRECT Result Comment: Performed at: - [facility] [id number] Construction Plumber: Guero Dawson PhD, Phone: [phone] Performed By: #### L3100.5475 #### [facility] (refer to report for specific site) refer to report for address and phone number LIVER PROFILE Collected: 03/01/2018 Status: F Source: [place] 11:14 AM [facility] REPOSITORY TYPE CODE TESTS RESULT OUT OF RANGE REFERENCE UNITS LAB L501.1500 6.4-8.2 g/dL Normal T PROT 7.5 LAB L501.1800 3.2-5.0 g/dL Normal ALB 3.6 LAB L501.1950 2.2-4.2 g/dL Normal GLOB 3.9 LAB L501.4100 15-37 U/L Normal AST 36 LAB L501.4305 45-117 U/L Normal ALK P 64 LAB L501.4405 13-56 U/L Normal ALT 44 LAB L501.4600 0.20-1.00 mg/dL Normal T BILI 0.50 LAB L501.4700 0.00-0.30 mg/dL Normal D BILI 0.11 Performed By: #### L500.3400, L500.4100 #### [facility] [address] [place], [place], [address] LIPID PROFILE Collected: 03/01/2018 Status: F Source: [place] 11:14 AM [facility] REPOSITORY TYPE CODE TESTS RESULT OUT OF RANGE REFERENCE UNITS LAB L501.4900 200 mg/dL High CHOL 213 Result Comment: <200 mg/dL Desirable 200-240 mg/dL Borderline >240 mg/dL High Risk LAB L501.5000 mg/dL High TRIG 576 Result Comment: The drugs N-Acetylcysteine and Metamizole may falsely depress this assay. TRIGLYCERIDE IS GREATER THAN 400 mg/dL. LDL RESULT IS INVALID AND WILL NOT BE REPORTED. Serum Triglycerides Reference Interval Normal <150 mg/dL Borderline high 150 - 199 mg/dL High 200 - 499 mg/dL Very High > or = 500 mg/dL LAB L501.6400 mg/dL Low HDL 36 Result Comment: The drugs N-Acetylcysteine and Metamizole may falsely depress this assay. Reference Range HDL <40 mg/dL Low HDL Cholesterol HDL >or= 60 mg/dL High HDL Cholesterol LAB L501.6500 0-130 mg/dL Test Normal not performed LDL LAB L501.6600 5-40 mg/dL Test Normal not performed VLDL Performed By: #### L500.3400, L500.4100 #### [facility] [address] [place], [address] HEMOGLOBIN A1C Collected: 11/12/2017 Status: F Source: [place] 9:34 AM [facility] REPOSITORY TYPE CODE TESTS RESULT OUT OF RANGE REFERENCE UNITS LAB L501.9985 4.2-6.3 % High HGB A1C 7.7 Performed By: #### L501.9985 #### [facility] [address] [place], [address] ALLERGIES ALLERGIES DATE TYPE / CODE NAME / CODE REACTION SEVERITY SOURCE Drug Iodinated Hives Unknown [place] 8 Allergy/878975767( Contrast- Oral [facility]OM[facility]) and IV Hospital Dye/G313382415(RX Repository NORM) Drug acetaminophen/F00 Hives Unknown [place] 8 Allergy/378229070( 7495185(RXNORM) [facility]) Hospital Repository Drug pseudoephedrine/F Hives Unknown [place] 8 Allergy/602202301( 785624541(RXNORM) [facility]) Hospital Repository Drug ibuprofen/W008073 Other Unknown [place] 8 Allergy/304121664( 377(RXNORM) [facility]) Hospital Repository Drug erythromycin Hives Unknown [place] 8 Allergy/119785903( base/C746025267(R [facility]OM[facility]) XNORM) Hospital Repository Drug clavulanic Hives Unknown [place] 8 Allergy/494671933( acid/Y051450062(R [facility]) XNORM) Hospital Repository Drug cefprozil/D835331 Hives Unknown [place] 8 Allergy/830028036( 623(RXNORM) [facility] SNOMED CT) Hospital Repository Drug amoxicillin/F0060 Hives Unknown [place] 8 Allergy/562427727( 35731(RXNORM) [facility] SNOMED CT) Hospital Repository Drug dextromethorphan/ Hives Unknown [place] 8 Allergy/437441888( [id number](RXNORM [facility]) ) Hospital Repository Drug metoclopramide/F0 Other Unknown [place] 8 Allergy/936196371( 13460390(RXNORM) [facility] SNOMED CT) Hospital Repository Drug doxylamine/L38768 Hives Unknown [place] 8 Allergy/952682834( 4789(RXNORM) [facility] SNOMED CT) Hospital Repository Drug lincomycin/G91811 Hives Unknown [place] 8 Allergy/984592104( 4867(RXNORM) [facility] SNOMED CT) Hospital Repository Drug gatifloxacin/F006 Hives Unknown [place] 8 Allergy/666748288( 128586(RXNORM) [facility] SNOMED CT) Hospital Repository Miscellaneous CHOLESTEROL MEDS Other Unknown [place] 8 Allergy/826537053( [facility] SNOM[facility]) Hospital Repository ENCOUNTERS ENCOUNTERS ADMIT/DISCHARGE ACCOUNT ADMITTING ENCOUNTER LOCATION SOURCE NUMBER CLASS 09/09/2018 [id number] [facility] ing:PT Repository 07/22/2018/07/22/20 [id number] Ambulatory BMSBuilding:B [place] [facility] Hospital Repository 06/08/2018 [id number] Ambulatory [facility] Hospital ing:LAB Repository 05/18/2018 [id number] Ambulatory [facility] Hospital ing:LABSPEC Repository 05/18/2018/05/18/20 [id number] Ambulatory BMSBuilding:B [place] 18 [facility] Hospital Repository 04/27/2018/04/28/20 [id number] Ambulatory [address] Repository 04/25/2018 [id number] Ambulatory [facility] Hospital ing:OPBI Repository 03/08/2018 [id number] [facility] ing:LAB Repository 03/01/2018 [id number] [facility] ing:LAB Repository 11/12/2017 [id number] [facility] ing:LAB.FUTUR Repository E PAYERS PAYERS ENCOUNTER GUARANTOR PAYER SUBSCRIBER SOURCE 09/09/2018 ASHWINI Bravo Primary RODY Jay [id number] Insurance:MEDICAL LILLEYDOB: [facility] [id number], [place] Number: Repository [address]Imw: 330 [id number] [phone] () Date:[id number] [address] [place] [id number]: 09/09/2018 Secondary NOT GIVENUNK [place] Insurance:SELF PAY [facility] Number: Effective Repository Date:2018-08-29 07/22/2018 ASHWINI Bravo Primary RODY Jay [id number] Insurance:MEDICAL LILLEYDOB: [facility] [id number], [place] Number: Repository [address]Ncg: 330 [id number] [phone] () Date:[id number] [address] [address]OX: 07/22/2018 Secondary NOT GIVENUNK [place] Insurance:SELF PAY [facility] Number: Effective Repository Date:2018-07-22 06/08/2018 ASHWINI Lawrence Primary RODY Jay [id number] Insurance:MEDICAL LILLEYDOB: [facility] [id number], [place] Number: Repository [address]Dak: 330 [id number] [phone] () Date:[id number] [address] [address]TK: 06/08/2018 Secondary NOT GIVENUNK [place] Insurance:SELF PAY [facility] Number: Effective Repository Date:2018-06-08 05/18/2018 ASHWINI C Primary Rody Alvarado [place] [id number] Insurance:MEDICAL [place]D[facility] 2128[place]08-[place], [place] Number: Repository [id number]: 330 [id number] [phone] (HP) Date:6865-01-15IW [address] [place] [phone]: 05/18/2018 Secondary NOT GIVENUNK [place] Insurance:SELF PAY [facility] Number: Effective Repository Date:2018-05-18 05/18/2018 Ashwini C Primary Rody A [place] [id number] Insurance:MEDICAL LilleyDOB: [facility] 1967-18-[place] Number: Repository [address]Wgp: 330 [id number] [phone] (HP) Date:7801-31-90GD [address] [place] [phone]: 05/18/2018 Secondary NOT GIVENUNK [place] Insurance:SELF PAY [facility] Number: Effective Repository Date:2018-05-18 04/25/2018 Ashwini C Primary Rody Alvarado [place] [id number] Insurance:MEDICAL LilleyDOB: [facility] [id number] Number: Repository [id number]: 330 [id number] [phone] (HP) Date:2916-56-25XM [address] [place] [phone]: 04/25/2018 Secondary NOT GIVENUNK [place] Insurance:SELF PAY [facility] Number: Effective Repository Date:2018-04-05 03/08/2018 Ashwini C Primary Rody Alvarado [place] [id number] Insurance:MEDICAL LilleyDOB: [facility] 0820[place]07[place] Number: Repository [id number]: 330 [id number] [phone] (HP) Date:6650-84-75YW [address] [place] [phone]: 03/08/2018 Secondary NOT GIVENUNK [place] Insurance:SELF PAY [facility] Number: Effective Repository Date:2018-03-08 03/01/2018 Ashwini Bravo Primary Rody [id number] [facility] [id number], [place] Number: Repository [id number]: 330 [id number] [phone] () Date:[id number] [address] [phone]: 03/01/2018 Secondary NOT GIVENUNK [place] Insurance:SELF PAY [facility] Number: Effective Repository Date:2018-03-01 11/12/2017 Ashwini Bravo Primary Rody Jay [id number] Insurance:MEDICAL [facility] 0768-24-[place]OX[place] Number: Repository [id number]: [phone] [id number] [phone] () Date:[id number] [address] [phone]: 11/12/2017 Secondary NOT GIVENUNK [place] Insurance:SELF PAY [facility] Number: Effective Repository Date:2017-11-10
== END 2018-09-28 19:00 | disposition home or self-care (01) ==
LOC: PT 13:00
PROVIDERS: Family Provider Family Medicine; PCP Family Medicine; Visit Provider Physician Assistant Surgical
DX: M51.36 Other intervertebral disc degeneration, lumbar region (principal); M54.16 Radiculopathy, lumbar region
CPT/HCPCS: 97014; 97035; 97110; 97161; 97530; G0283

== ENCOUNTER → 2018-11-30 07:58 | Outpatient (CLI) | payer OTHER, SELFPAY ==
[2018-07-22 10:37] VITALS: BMI 36.2
--- NOTE | 2018-11-30 08:08 | US_ITS ---
STUDY: ABDOMINAL ULTRASOUND REASON FOR EXAM: Female, 68 years old. Atherosclerotic aorta TECHNIQUE: Transabdominal ultrasound was performed with real-time and static sanders scale imaging. COMPARISON: None. FINDINGS: Liver: The liver measures 18.5 cm. Evidence of hepatic steatosis. There is no intrahepatic biliary ductal diliatation. There is no demonstrated mass lesion. Gallbladder:: Gallbladder surgically absent. Common Bile Duct (C.B.D.): The common bile duct measures 3.3 mm. Pancreas: There is normal echogenicity of the pancreas. Spleen: Normal size of the spleen. The spleen measures 9.3 cm. Right Kidney: The right kidney measures 10.3 cm. Normal renal cortex. The renal cortex measures 1.4 cm. Benign-appearing cyst 10 x 9 x 5 mm. There is no right hydronephrosis. Left Kidney: The left kidney measures 13.2 cm. Normal renal cortex. The renal cortex measures 1.3 cm. There is no demonstrated renal mass or cyst. There is no left hydronephrosis. 6 mm left renal mid polar calyceal calculus. Aorta: Nondilated, greatest dimension 19 mm. Mild to moderate calcified atherosclerotic plaque is visible. Normal flow, normal arterial waveforms. I.V.C.: The IVC is patent. US/Abdomen Complete IMPRESSION: Cholecystectomy. Evidence of hepatic steatosis with mild hepatomegaly. Simple appearing cyst of the right kidney with a greatest dimension of 10 mm. 6 mm nonobstructing calyceal calculus of the left kidney. Nondilated abdominal aorta with evidence of atherosclerosis. Electronically Signed: Todd Condon MD at 17:46 EDT Tel , Service support ,
== END ==
PROVIDERS: Family Provider Family Medicine; PCP Family Medicine; Referring Provider Family Medicine; Visit Provider Family Medicine
DX: I70.0 Atherosclerosis of aorta (principal)
CPT/HCPCS: 76700

== ENCOUNTER → 2018-12-13 08:15 | Outpatient (CLI) | payer OTHER, SELFPAY ==
[2018-07-22 10:37] VITALS: BMI 36.2
[2018-12-13 12:09] LABS: AST(SGOT) 28 U/L (15-37); Alanine Aminotransfer ALT/SGPT 33 U/L (13-56); Albumin, Serum 3.9 g/dL (3.2-5.0); Alkaline Phosphatase 79 U/L (45-117); Bilirubin, Direct 0.11 mg/dL (0.00-0.30); Cholesterol 172 mg/dL (200); Globulin 3.9 g/dL (2.2-4.2); High Density Lipoprotein 39 mg/dL; Protein, Total 7.8 g/dL (6.4-8.2); Triglycerides 267 mg/dL; Very Low Density Lipoprotein 53 mg/dL (5-40)
== END ==
PROVIDERS: Family Provider Family Medicine; PCP Family Medicine; Referring Provider Family Medicine; Visit Provider Family Medicine
DX: E78.5 Hyperlipidemia, unspecified (principal); E11.65 Type 2 diabetes mellitus with hyperglycemia
CPT/HCPCS: 36415; 80061; 80076; 83036

== ENCOUNTER → 2019-05-05 09:34 | Outpatient (CLI) | payer MEDICARE, OTHER, SELFPAY ==
[2018-07-22 10:37] VITALS: BMI 36.2
--- NOTE | 2019-05-05 09:37 | BI_ITS ---
MAMMOGRAPHY - BILATERAL SCREENING REASON FOR EXAM: Female, 68 years old. Routine annual screening examination. PERTINENT HISTORY: Non-contributory. Remote bilateral excisional breast biopsies. TECHNIQUE: Digital bilateral breast mirian (3D mammographic acquisition) in the CC and MLO projections. 2-D mediolateral oblique (MLO) and craniocaudad (CC) views of both breasts were obtained. CAD: Full Field Digital Mammography with Computer Added Detection was performed. COMPARISON: Comparison is made with prior examination of April 25, 2018 and April 22, 2017. FINDINGS: Breast Composition: The breasts are almost entirely fatty. There are no dominant masses or suspicious calcifications. Stable appearing 7.3 mm millimeter nodule in the central lateral portion of the right breast. This has the appearance of a lymph node. This is unchanged. No other significant abnormalities are identified. There has been no significant change since the prior study. BI/SCREEN MAMM (CAD) W/MIRIAN BILAT IMPRESSION: Stable bilateral screening mammogram. Yearly follow-up mammogram recommended. (A) ASSESSMENT CATEGORY: BIRADS Category 2: Benign. A letter regarding these results will be sent to the patient by the facility within 30 days. Approximately 10% of breast cancers are not detected by mammography. A normal mammogram should not delay biopsy of a clinically suspicious abnormality. [id number] Electronically Signed: Geoffrey Al, at 12:20 EDT , Service support ,
== END ==
PROVIDERS: Family Provider Family Medicine; PCP Family Medicine; Referring Provider Obstetrics & Gynecology; Visit Provider Obstetrics & Gynecology
DX: Z12.31 Encounter for screening mammogram for malignant neoplasm of breast (principal)
CPT/HCPCS: 77063; 77067

== ENCOUNTER → 2019-05-22 15:48 | Outpatient (CLI) | payer MEDICARE, OTHER, SELFPAY ==
[2019-05-22 11:36] VITALS: BMI 36.2
[2019-05-25 16:02] LABS: HPV APTIMA, High Risk Positive (Negative)
== END ==
PROVIDERS: Family Provider Family Medicine; PCP Family Medicine; Referring Provider Nurse Practitioner Women's Health; Visit Provider Nurse Practitioner Women's Health
DX: Z12.4 Encounter for screening for malignant neoplasm of cervix (principal); R87.610 Atypical squamous cells of undetermined significance on cytologic smear of cervix (ASC-US)
CPT/HCPCS: 87624; 88175; G0145

== ENCOUNTER → 2019-05-23 11:21 | Outpatient (CLI) | payer MEDICARE, OTHER, SELFPAY ==
[2019-05-22 11:36] VITALS: BMI 36.2
--- NOTE | 2019-05-23 11:24 | RAD_ITS ---
STUDY: X-RAY CHEST REASON FOR EXAM: Female, 68 years old. Cough, asthma TECHNIQUE: PA and lateral views of the chest. COMPARISON: None. FINDINGS: The lungs are clear and expanded. There is no demonstrated pleural abnormality. Normal size heart. Normal mediastinum and alonso. Normal visualized pulmonary arteries. There are calcified plaques of the aortic arch. There are diffuse degenerative changes of the visualized thoracic spine. Normal visualized ribs, clavicles, and shoulders. There is no demonstrated abnormality of the visualized soft tissue structures of the upper abdomen. RAD/Chest PA and Lateral IMPRESSION: Calcified plaques of the aortic arch. Degenerative changes of the thoracic spine. No acute cardiopulmonary disease process is seen. Electronically Signed: Gabriel Richard MD at 17:53 EDT , Service support ,
== END ==
PROVIDERS: Family Provider Family Medicine; PCP Family Medicine; Visit Provider Family Medicine
DX: R05 Cough (principal); J45.901 Unspecified asthma with (acute) exacerbation
CPT/HCPCS: 71046

== ENCOUNTER → 2019-05-29 14:41 | Outpatient (CLI) | payer MEDICARE, OTHER, SELFPAY ==
[2019-05-22 11:36] VITALS: BMI 36.2
[2019-05-29 18:03] LABS: AST(SGOT) 19 U/L (15-37); Alanine Aminotransfer ALT/SGPT 37 U/L (13-56); Albumin, Serum 3.6 g/dL (3.2-5.0); Alkaline Phosphatase 68 U/L (45-117); Bilirubin, Direct 0.09 mg/dL (0.00-0.30); Globulin 3.8 g/dL (2.2-4.2); Lipase 151 U/L (73-393); Protein, Total 7.4 g/dL (6.4-8.2)
== END ==
PROVIDERS: Family Provider Family Medicine; PCP Family Medicine; Referring Provider Internal Medicine Gastroenterology; Visit Provider Internal Medicine Gastroenterology
DX: R10.9 Unspecified abdominal pain (principal)
CPT/HCPCS: 36415; 80076; 83690

== ENCOUNTER → 2019-07-01 07:28 | Outpatient (CLI) | payer MEDICARE, OTHER, SELFPAY ==
[2019-05-22 11:36] VITALS: BMI 36.2
[2019-07-01 08:52] LABS: Absolute Lymphocyte Count 4.07 X10^3/uL (0.83-4.51); Absolute Neutrophil Count 4.7 X10^3/uL (2.0-7.7); Basophil# 0.04 X10^3/uL; Basophil% 0.4 % (0-1); Eosinophil# 0.28 X10^3/uL; Eosinophils% 2.8 % (0-5); Hematocrit 38.9 % (37-47); Hemoglobin 12.6 g/dL (12.0-15.0); Lymphocyte # 4.07 X10^3/ul (4.0); Lymphocyte % 40.6 % (19-41); Mean Corp Hgb Conc 32.4 g/dL (32-36); Mean Corpuscular Hgb 29.6 pg (27.0-32.0); Mean Corpuscular Volume 91.5 fL (81-99); Mean Platelet Vol. 9.8 fl (6.2-12.0); Monocyte# 0.85 X10^3/uL; Monocyte% 8.5 % (0-10); NRBC Flagged by Analyzer 0 % (0-5); Neutrophil # 4.74 X10^3/uL (2.7-7.7); Neutrophil % 47.3 % (47-70); POSITIVE MORPHOLOGY YES; Platelet Count 319 K/mm3 (150-450); RBC Distribution Width CV 13.6 % (11.6-14.6); RBC Distribution Width SD 45.4 fl (35.1-43.9); Red Blood Count 4.25 M/mm3 (4.2-5.4)
[2019-07-01 08:55] LABS: Color, Urine Yellow (Yellow); Glucose, Dipstick Normal (Normal); Ketone-Dipstick Negative (Negative); Leukocyte Esterase-Dipstick 100 /ul (Negative); Nitrite-Dipstick Negative (Negative); Occult Blood-Urine Negative /ul (Negative); Protein-Dipstick 15 mg/dl (Negative); Urine Bilirubin Dipstick Negative (Negative); Urine Clarity Clear (Clear); Urine Urobilinogen Normal (Normal)
[2019-07-01 08:57] LABS: Differential Indicated SCAN CRITERIA MET
[2019-07-01 09:12] LABS: Hemoglobin A1c 7.3 % (4.2-6.3)
[2019-07-01 09:19] LABS: Reactive Lymphocyte 1+
[2019-07-01 09:29] LABS: ALB/GLOB Ratio 0.9 RATIO (0.9-2.4); AST(SGOT) 23 U/L (15-37); Alanine Aminotransfer ALT/SGPT 35 U/L (13-56); Albumin, Serum 3.6 g/dL (3.2-5.0); Alkaline Phosphatase 59 U/L (45-117); Anion Gap 10 (5-15); BUN 19 mg/dL (7-18); BUN/Creat Ratio 19.7 RATIO (10-20); Calcium,Total 8.8 mg/dL (8.5-10.1); Chloride 98 mmol/L (98-107); Cholesterol 214 mg/dL (200); Creatinine, Serum 0.97 mg/dL (0.55-1.02); EST Glomerular Filtration Rate 61 mL/min (>60); Est Glom Filt Rate - Afr Amer 74 mL/min (>60); Globulin 3.8 g/dL (2.2-4.2); Glucose 144 mg/dL (74-106); High Density Lipoprotein 36 mg/dL; Potassium 3.5 mmol/L (3.5-5.1); Protein, Total 7.4 g/dL (6.4-8.2); Sodium Level 137 mmol/L (136-145); Triglycerides 368 mg/dL; Very Low Density Lipoprotein 74 mg/dL (5-40)
== END ==
PROVIDERS: Family Provider Family Medicine; PCP Family Medicine; Referring Provider Family Medicine; Visit Provider Family Medicine
DX: Z00.00 Encounter for general adult medical examination without abnormal findings (principal); E11.65 Type 2 diabetes mellitus with hyperglycemia; E78.5 Hyperlipidemia, unspecified; I10 Essential (primary) hypertension
CPT/HCPCS: 36415; 80053; 80061; 81002; 83036; 85025

== ENCOUNTER 2019-10-06 16:00 | Outpatient (RCR) | payer MEDICARE, SELFPAY ==
[2019-05-22 11:36] VITALS: BMI 36.2
--- NOTE | 2019-09-28 10:20 | HP.PTEVAL_ITS ---
Patient's Visit Information JANESSA TORREZ is a 69 year old F referred to Physical Therapy by Kali Smith PA-C with a diagnosis of LUMBAR RADICULOPATHY, LEFT HIP OA, BURSITIS. Date of Evaluation: 09/28/19 Physical Therapist: Ariana Cantu PT, Cert MDT - Visit Plan Frequency: 2-3x /Week Duration: 4-6 Weeks Plan: AQUATIC THERAPY FOR HIP AND BACK PAIN RELIEF, POSTURE CORRECTION/STRENGTHENING, INSTRUCTION IN APPROPRIATE BODY MECHANICS AND ACTIVITY MODIFICATIONS. DLS STARTING WITH A NEUTRAL SPINE PROGRESSING ROM TOLERATED. KAYLA LE ROM, STRETCHING AND STRENGTHENING. HEP INSTRUCTION. - Subjective Findings: Work/Leisure: RETIRED. LIKES TO DANCE INCLUDING LINE DANCING. Disability: NO. Present symptoms: LOW BACK PAIN, KAYLA HIP PAIN LEFT > RIGHT AND LEFT LATERAL THIGH PAIN. INTERMITTENT PAINS IN KAYLA LEGS AND FEET. LEFT THIGH NUMBNESS AND TINGLING AND LEFT FINGERS SOMETIMES. Present since: COUPLE MONTHS AGO. CHRONIC. Pain Scale: WORST 8/10, LEAST 3/10. Currently: 5/10. Commenced as a result of: NO APPARENT REASON. Symptoms at onset: INCREASED LOW BACK PAIN. Worse: LIFTING STANDING IN ONE PLACE FOR A LONG TIME, DOING DISHES, WALKING. Better: HEAT ON LOW BACK. Disturbed sleep: YES. Previous history/Previous treatment: PHYSICAL THERAPY. H/O CHIROPRACTIC TREATMENTS (ABOUT 6 VISITS TOTAL). NO INJECTIONS. NO BACK SURGERY. NO HIP SURGERY. Treatment this episode: MALOXACAM - HELPS SOME. Coughing/sneezing/straining: POSITIVE. Gait: WALKING A MILE A DAY AT THE [facility]. HAS WORKED UP TO A MILE. SEEMS TO HAVE HELPED THE HIP. GETTING TO ONE MILE IS DIFFICULT. Difficulty initiating urinatin: NO. Accidents: NO. Unexplained weight loss: NO. Imaging: RECENT HIP, KNEE AND LOW BACK X-RAYS. PATEINT REPORTS SHE HAS A LOT OF ARTHRITIS IN HER LOW BACK, A LITTLE HIP OA AND KNEES LOOKED PRETTY GOOD. MRI PENDING OF LOW BACK NEXT WEEK. PMH: HIGH CHOLESTEROL, HTN, ASTHMA, NIDDM. Recent major surgery: NO - Objective Sitting/Standing Posture: POOR. Lateral shift: NO. Active Correction of posture: BETTER. Other Observations: INDEP GAIT INTO PT WITH DECREASED KAYLA STRIDE LENGTH. NO ASSISTIVE DEVICES. NO LOB. INDEP TRANSFER SIT TO STAND WITHOUT UE ASSIST BUT DIFFICULT. Motor deficit: KAYLA LE'S GROSSLY 5/5 WITH MMT'ING EXCEPT HIPS 4/5. PATIENT DENIED INCREASED C/O HIP PAIN WITH LE MMT'ING BUT HIP TESTING PRODUCES INCREASED LBP. Sensory deficit: KAYLA LE LIGHT TOUCH SENSATION IS INTACT AND SYMMETRICAL. ROM deficit: TIGHT KAYLA HIP FLEXORS. MILD HS AND GASTROC TIGHTNESS KAYLA. Reflexes: UNABLE TO ELICIT KAYLA LE DTR'S. Dural Signs: NEGATIVE KAYLA LE DURAL TESTING. Lumbar mvmt loss: flex - NIL. ext - HAY. R SG - MOD. L SG - MOD. Core strength: POOR. Palpation: MILD TENDERNESS OF LOW BACK AND KAYLA HIPS INTO KAYLA LAT THIGHS. TREATMENT: NEUROMUSCULAR REEDUCATION - RETRAINING OF MVMT AND POSTURE FOR SITTING, LYING AND STANDING ACTIVITIES. - Goals Goal 1:: DECREASE C/O LOW BACK AND KAYLA LE SX'S. Goal Time Frame: 4-6 Weeks Goal 2:: IMPROVE LIFTING, WALKING, SITTING, STANDING, SLEEP, SOCIAL LIFE, TRAVEL AND HOMEMAKING FUNCTION Goal Time Frame: 4-6 Weeks Goal 3:: INSTRUCT IN PROPHYLAXIS Goal Time Frame: 4-6 Weeks - Rehabilitation Potential Rehabilitation Potential: Fair - Anticipated Interventions Patient/Client Instruction: Educate patient on: Condition, Plan of Care, Risk Factors, Benefits of Fitness Program For the Purpose of:: To improve self management Therapeutic Exercise to Include: Strength training, Body mechanics, Postural training, Flexibilty training, Neuromotor development, Dynamic Lumbar Stabilization For the Purpose of:: To decrease pain, To increase ROM, To improve muscle performance and motor function, To increase tolerance to activity/condition/position, To improve ability of physical actions for home/community/work/leisure Thank you for the opportunity to evaluate your patient. For Medicare and Medicare HMO plans, please review the plan of care and approve it. It will need to be FAXED BACK to us at [phone] for Medicare purposes. For Medicare only, by signing this I certify the plan of care. Please let me know if there are questions or concerns regarding this plan of care. Physician Signature:__ Date:
--- NOTE | 2019-12-17 11:22 | HP.PT.NRP ---
JANESSA TORREZ was seen in my office for initial evaluation on 09/28/19. The following Plan of Care was established for this patient: Initial Frequency: 2-3x /Week Initial Duration: 4-6 Weeks Patient/Client Instruction: Educate patient on: Condition, Plan of Care, Risk Factors, Benefits of Fitness Program For the Purpose of:: To improve self management Therapeutic Exercise to Include: Strength training, Body mechanics, Postural training, Flexibilty training, Neuromotor development, Dynamic Lumbar Stabilization For the Purpose of:: To decrease pain, To increase ROM, To improve muscle performance and motor function, To increase tolerance to activity/condition/position, To improve ability of physical actions for home/community/work/leisure This patient was last seen in our office 10/06/19. Pertinent comments regarding their Physical therapy will appear below: This patient has not returned to Physical Therapy and is appropriate to return to MD for further follow-up as needed. At this point I will be discontinuing this patient from physical therapy. I would be happy to see this patient again in the future if found appropriate by the physician. Thank you! Arinaa Cantu, PT, Cert MDT
== END 2019-10-06 19:00 | disposition home or self-care (01) ==
LOC: PT 16:00
PROVIDERS: PCP Family Medicine; Referring Provider Physician Assistant Surgical; Visit Provider Physician Assistant Surgical
DX: M70.62 Trochanteric bursitis, left hip (principal); M16.12 Unilateral primary osteoarthritis, left hip
CPT/HCPCS: 97112; 97113; 97162

== ENCOUNTER → 2020-01-05 13:15 | Outpatient (CLI) | payer MEDICARE, SELFPAY ==
[2020-01-02 15:04] VITALS: BMI 36.2
--- NOTE | 2020-01-05 13:17 | US_ITS ---
STUDY: ULTRASOUND TRANSVAGINAL CLINICAL: Female, 69 years old. PELVIC PAIN LEFT LOWER QUADRANT PAIN. TECHNIQUE: Transabdominal and Transvaginal COMPARISON: None. FINDINGS: Normal uterine size measuring 5.3 cm in maximal craniocaudal dimension. There are no myometrial masses. Normal endometrial thickness measuring 2.3 mm. There are no endometrial masses, and there is no fluid in the endometrial cavity. Normal uterine cervix. There is nonvisualization of the right ovary. The patient status post left oophorectomy. There is no free fluid in the pelvis. US/Pelvic (Non ) IMPRESSION: No discrete solid or cystic lesions identified. Nonvisualization of the right ovary. Electronically Signed: Monika Florian MD at 14:38 EDT Tel , Service support ,
--- NOTE | 2020-01-05 13:17 | US_ITS ---
STUDY: ULTRASOUND TRANSVAGINAL CLINICAL: Female, 69 years old. PELVIC PAIN LEFT LOWER QUADRANT PAIN. TECHNIQUE: Transabdominal and Transvaginal COMPARISON: None. FINDINGS: Normal uterine size measuring 5.3 cm in maximal craniocaudal dimension. There are no myometrial masses. Normal endometrial thickness measuring 2.3 mm. There are no endometrial masses, and there is no fluid in the endometrial cavity. Normal uterine cervix. There is nonvisualization of the right ovary. The patient status post left oophorectomy. There is no free fluid in the pelvis. US/Transvaginal Non- IMPRESSION: No discrete solid or cystic lesions identified. Nonvisualization of the right ovary. Electronically Signed: Monika Florian MD at 14:38 EDT Tel , Service support ,
--- OUTSIDE RECORDS SUMMARY | 2020-05-28 16:08 | XMS RPT_ITS | CCD ---
:1950 External Reference #:[id number] Author Organization [facility] Care Team Providers Name Role Phone Hollis Bacon Primary Care Provider Reyna Diaz Unavailable EBER Mena RN, A Unavailable Unavailable Yvon REHABILITATION SPECIALIST, S Unavailable Yvon REHABILITATION SPECIALIST, S Unavailable Nataliia CHANEY, E Unavailable Allergies Reported Allergen Reaction(s) Severity Date of Location Onset Amoxicillin / Rash 04-27-2018 - [facility] Clavulanate (44173) amoxicillin / Critical, 04-01-2017 - [place] clavulanate [facility] [place] (40177) cefprozil Rash 04-27-2018 - [facility] (35121) cefprozil Critical, 04-01-2017 - [facility] [place] (45868) Chlorpheniramine / Hives 04-27-2018 - [facility] Pseudoephedrine (96855) Contrast media Critical, 04-01-2017 - [facility] [place] (68405) Erythromycin Rash 04-27-2018 - [facility] (29210) erythromycin Critical, 04-01-2017 - [facility] [place] (40158) gatifloxacin Rash 04-27-2018 - [facility] (27762) gatifloxacin Critical, 04-01-2017 - [facility] [place] (64659) Iodine Other: See 04-27-2018 - [facility] Comments (92853) Lincomycin Rash Critical 04-01-2017 - [place] [facility] [place] (69603) lincomycin Critical, 04-01-2017 - [facility] [place] (85239) Metoclopramide Intolerance 04-27-2018 - [facility] kelsi (93510) metoclopramide Critical, 04-01-2017 - [place] [facility] (19911) sulfamethoxazole / Critical, [facility]-01-[facility] (40276) VICKS DAYQUIL/NYQUIL Critical, 04-01-2017 - [facility]GH [facility] (16588) Medications Medication Name Sig Date Prescriber Location Albuterol albuterol (PROVENTIL) 03-09-2020 [facility] 2.5 mg /3 mL (0.083 %) (4419 5) nebulizer solution INHALE WITH 1 VIAL IN NEBULIZER EVERY SIX HOURS NEEDED 0 03/09/2020 Active Albuterol Sulfate 0.63 mg/3 mL nebulizer [facility] Pro vider [facility] (65831) solution 1 Ampule. 0 Active Comment: 1 Ampule. INHALE WITH 1 VIAL IN NEBULI ZER EVERY SIX HOURS NEEDED budesonide / SYMBICORT 160-4.5 MCG/ACT AERO 04-01-2017 [place] [facility] formoterol use as directed C are (62199) BUDESONIDE-FORMOTEROL FUMARATE [id number] Chanda Ramirez Benson REHABILITATION SPECIALIST SYMBICORT 160-4.5 MCG/ACT AERO use as 04-01-2017 [facility] directed BUDESONIDE-FORMOTEROL (74540) FUMARATE [id number] Chanda S Yvon REHABILITATION SPECIALIST SYMBICORT 160-4.5 MCG/ACT AERO use as 04-01-2017 [facility] directed BUDESONIDE-FORMOTEROL (31061) FUMARATE [id number] Chanda S Yvon REHABILITATION SPECIALIST SYMBICORT 160-4.5 MCG/ACT AERO use as 04-01-2017 [facility] [facility] directed BUDESONIDE-FORMOTEROL (49799) FUMARATE [id number] Chanda S Yvon REHABILITATION SPECIALIST calcium carbonate / CALCIUM 500 + D 500-125 04-01-2017 [place] [facility] vitamin D MG-UNIT TABS One tablet by C are (39355) mouth daily CALCIUM CARBONATE-VITAMIN D [id number] Chanda Sanz REHABILITATION SPECIALIST CALCIUM 500 + D 500-125 MG-UNIT TABS 04-01-2017 [facility] (91117) One tablet by mouth daily CALCIUM CARBONATE-VITAMIN D [id number] Chanda Milans REHABILITATION SPECIALIST CALCIUM 500 + D 500-125 MG-UNIT TABS 04-01-2017 [facility] (16808) One tablet by mouth daily CALCIUM CARBONATE-VITAMIN D 07810804066 Chanda Milans REHABILITATION SPECIALIST CALCIUM 500 + D 500-125 MG-UNIT TABS 04-01-2017 [facility][1]s [facility] [place] (44921) One tablet by mouth daily CALCIUM CARBONATE-VITAMIN D 68900293849 Chanda Milans REHABILITATION SPECIALIST CALCIUM 500 + D 500-125 MG-UNIT TABS 04-01-2017 [facility] (13429) One tablet by mouth daily CALCIUM CARBONATE-VITAMIN D 61718142949 Chanda Sanz REHABILITATION SPECIALIST Calcium Carbonate / calcium carbonate/vitamin D3 [facility] vitamin D3 (CALCIUM 500 + D ORAL) Take (07566) by mouth. 0 Active calcium carbonate/vitamin D3 (CALCIUM 500 + D Cc f [facility] (93648) ORAL) Take by mouth. 0 Active calcium carbonate/vitamin D3 (CALCIUM 500 + D Cc f [facility] (72397) ORAL) Take by mouth. 0 Active calcium carbonate/vitamin D3 (CALCIUM 500 + D Cc f [facility] (01281) ORAL) Take by mouth. 0 Active calcium carbonate/vitamin D3 (CALCIUM 500 + D Cc f [facility] (01381) ORAL) Take by mouth. 0 Active calcium carbonate/vitamin D3 (CALCIUM 500 + D Cc f [facility] (11967) ORAL) Take by mouth. 0 Active Comment: Take by mouth. cetirizine ZYRTEC ALLERGY 10 MG CAPS use 04-01-2017 [facility]'s [facility] [place] as directed (4469 1) CETIRIZINE HCL [id number] Chanda Milans REHABILITATION SPECIALIST ZYRTEC ALLERGY 10 MG CAPS use 04-01-2017 [facility] [place] as directed (24872) CETIRIZINE HCL 10777190946 Chandasuzie Milans REHABILITATION SPECIALIST cetirizine HCl (ZYRTEC ORAL) [facility] Provider [facility] Take by mouth. 0 Active (48204) cetirizine HCl (ZYRTEC ORAL) [facility] Take by mouth. 0 Active (75906) cetirizine HCl (ZYRTEC ORAL) [facility] Take by mouth. 0 Active (16459) cetirizine HCl (ZYRTEC ORAL) [facility] Take by mouth. 0 Active (82561) cetirizine HCl (ZYRTEC ORAL) [facility] Take by mouth. 0 Active (14732) cetirizine HCl (ZYRTEC ORAL) [facility] Take by mouth. 0 Active (95576) Comment: Take by mouth. FA/mv,Ca,iron,min/lycopene/lut FA/mv,Ca,iron,min/lycopene/lut [facility] (MULTIVITAL ORAL) (MULTIVITAL ORAL) Take by mouth. [facility] 0 Active (31992) FA/mv,Ca,iron,min/lycopene/lut (MULTIVITAL [facility] (75298) ORAL) Take by mouth. 0 Active FA/mv,Ca,iron,min/lycopene/lut (MULTIVITAL [facility] (79618) ORAL) Take by mouth. 0 Active FA/mv,Ca,iron,min/lycopene/lut (MULTIVITAL [facility] (16950) ORAL) Take by mouth. 0 Active FA/mv,Ca,iron,min/lycopene/lut (MULTIVITAL [facility] (30907) ORAL) Take by mouth. 0 Active FA/mv,Ca,iron,min/lycopene/lut (MULTIVITAL [facility] (79514) ORAL) Take by mouth. 0 Active Comment: Take by mouth. glimepiride glimepiride (AMARYL) [address] [facility] (92677) Take 4 mg by mouth daily with breakfast. 0 Active Comment: Take 4 mg by mouth daily wit h breakfast. hydroCHLOROthiazide / LISINOPRIL-HYDROCHLOROTHIAZIDE 04-01-2017 [place] lisinopril 20-12.5 MG TABS One tablet by [facility]'s [facility] [place] mouth twice daily (99298) LISINOPRIL-HYDROCHLOROTHIAZIDE [id number] Chanda Sanz REHABILITATION SPECIALIST lisinopril-hydrochlorothiazide [facility] Provider [facility] (PRINZIDE,ZESTORETIC) 20-12.5 mg per tablet (38837) Take 1 tablet by mouth once daily. 0 Active Comment: Take 1 tablet by mouth once daily. hydrOXYzine HYDROXYZINE PAMOATE 25 MG CAPS 04-01-2017 [facility] One tablet by mouth daily (4 4691) HYDROXYZINE PAMOATE 35079891905 Chanda Sanz REHABILITATION SPECIALIST HYDROXYZINE PAMOATE ORAL Take by [facility] Provider [facility] (21288) mouth. 0 Active HYDROXYZINE PAMOATE ORAL Take by [facility] Provider [facility] (10220) mouth. 0 Active HYDROXYZINE PAMOATE ORAL Take by [facility] Provider [facility] (12883) mouth. 0 Active HYDROXYZINE PAMOATE ORAL Take by [facility] Provider [facility] (72407) mouth. 0 Active HYDROXYZINE PAMOATE ORAL Take by [facility] Provider [facility] (37579) mouth. 0 Active HYDROXYZINE PAMOATE ORAL Take by [facility] Provider [facility] (27873) mouth. 0 Active Comment: Take by mouth. metFORMIN METFORMIN HCL 500 MG TABS Take 04-01-2017 [facility] two tablets by mouth in the (00983) morning and one before bed METFORMIN HCL [id number] Chanda Sanz REHABILITATION SPECIALIST metFORMIN (GLUCOPHAGE) 500 mg tablet [facility] Provide r [facility] (48262) Take 500 mg by mouth twice daily with meals. 0 Active Comment: Take 500 mg by mouth twice d aily with meals. montelukast MONTELUKAST SODIUM 10 MG TABS 04-01-2017 [facility] One tablet by mouth daily (4 4691) MONTELUKAST SODIUM [id number] Chanda S Yvon REHABILITATION SPECIALIST montelukast sodium (SINGULAIR ORAL) [facility] Provider [facility] (96696) Take by mouth. 0 Active montelukast sodium (SINGULAIR ORAL) [facility] Provider [facility] (21478) Take by mouth. 0 Active montelukast sodium (SINGULAIR ORAL) [facility] Provider [facility] [place] (47343) Take by mouth. 0 Active montelukast sodium (SINGULAIR ORAL) [facility] Provider [facility] [place] (44520) Take by mouth. 0 Active montelukast sodium (SINGULAIR ORAL) [facility] Provider [facility] (16239) Take by mouth. 0 Active montelukast sodium (SINGULAIR ORAL) [facility] Provider [facility] (14539) Take by mouth. 0 Active Comment: Take by mouth. MULTIPLE VITAMINS-MINERALS CENTRUM SILVER 50+WOMEN 04-01-2017 [place] [facility] TABS One tablet by mouth Car e (65804) daily MULTIPLE VITAMINS-MINERALS [id number] Chanda S Yvon REHABILITATION SPECIALIST CENTRUM SILVER 50+WOMEN TABS One tablet 04-01-2017 [facility] [place] (63784) by mouth daily MULTIPLE VITAMINS-MINERALS [id number] Chanda S Yvon REHABILITATION SPECIALIST CENTRUM SILVER 50+WOMEN TABS One tablet 04-01-2017 [facility] [place] (87086) by mouth daily MULTIPLE VITAMINS-MINERALS [id number] Chanda S Yvon REHABILITATION SPECIALIST MULTIPLE VITAMINS-MINERALS CENTRUM SILVER 50+WOMEN 04-01-2017 [place] [facility] TABS One tablet by mouth Car e (47254) daily MULTIPLE VITAMINS-MINERALS [id number] Chanda S Benson REHABILITATION SPECIALIST CENTRUM SILVER 50+WOMEN TABS One tablet 04-01-2017 [facility] (32250) by mouth daily MULTIPLE VITAMINS-MINERALS [id number] Chanda S Benson REHABILITATION SPECIALIST omeprazole OMEPRAZOLE 40 MG CPDR One 04-01-2017 [facility] [place] tablet by mouth daily (59165 ) OMEPRAZOLE [id number] Chanda Sanz REHABILITATION SPECIALIST Comment: Take 40 mg by mouth once rosette ly. pioglitazone pioglitazone (ACTOS) 30 mg [facility] Provider [facility] (60961) tablet Take 30 mg by mouth once daily. 0 Active Comment: Take 30 mg by mouth once rosette ly. simvastatin SIMVASTATIN 40 MG TABS One 04-01-2017 [facility] [place] tablet by mouth daily (60239 ) SIMVASTATIN 54088331437 Chanda Sanz REHABILITATION SPECIALIST Comment: Take 40 mg by mouth daily at bedtime. ubidecarenone (CO Q-10 ubidecarenone (CO Q-[address] [facility] [facility] ORAL) ORAL) Take by mouth. 0 (4419 5) Active ubidecarenone (CO Q-10 ORAL) Take by mouth. 0 Cc f Provider [facility] (30510) Active ubidecarenone (CO Q-10 ORAL) Take by mouth. 0 Cc f Provider [facility] (53444) Active ubidecarenone (CO Q-10 ORAL) Take by mouth. 0 Cc f Provider [facility] (50189) Active ubidecarenone (CO Q-10 ORAL) Take by mouth. 0 Cc f Provider [facility] (31688) Active ubidecarenone (CO Q-10 ORAL) Take by mouth. 0 Cc f Provider [facility] (16784) Active Comment: Take by mouth. Problems Active Problems Category Problem Name Status Date Location Unclassified Venereal disease screening Active 04-01-2017 - [facility] [place] (15226) Unclassified Screening mammography Active 04-01-2017 - [facility] [place] (86878) Unclassified Gynecologic examination Active 04-01-2017 [facility] [place] (30278) Past or Other Problems Category Problem Name Status Date Location Viral infection Human papilloma virus Completed 04-07-2017 - [facility] [place] infection (12410) Results Result Name Value Range Unit Interpretation Flag Date Location cnpn on 2020-05-22 CNPN Telephone ([facility]) Normal 05-22-2020 [facility] ASHWINI BARON ([id number]) 1950 [facility] Date Time Provider Department (36700) 05/22/20 JAJA SANTIAGO During your visit today, we recorded the following informati on about you: Jaja Santiago RN BUS VAN DRIVER.YULY 05/22/2020 7:50 AM Signed FYI: left a message for the patient to l et her know that our system is back up and running, if she would like to keep her origi nal appointment with me (this morning at 8:40). I have asked her to call if she is coming. Otherwise, I would see her on 05/30 where she was rescheduled to. Jaja Santiago RN BUS VAN DRIVER.RESIDENTIAL THERAPIST Allergies As of Date: 05/22/2020 Noted Allergy Reaction AUGMENTIN (AMOXICILLIN-POT CLAVUL*04/27/2018 2 - Rash CEFZIL (CEFPROZIL) 04/27/2018 2 - Rash DAYQUIL ALLERGY 12-HR 04/27/2018 4 - Hives ERYTHROMYCIN 04/27/2018 2 - Rash IVP DYE (IODINE) 04/27/2018 14 - Other: See Comments Comments: knot on head LINCOMYCIN 04/27/2018 2 - Rash REGLAN (METOCLOPRAMIDE HCL) 04/27/2018 5 - Intolerance TEQUIN (GATIFLOXACIN) 04/27/2018 2 - Rash Date Reviewed: 04/29/2020 Reviewed by: Tyshawn (Rn) EBER Guevara - Fully Assessed Reason for Visit: Appointment [186] Cmt: original appointment time available Prescriptions as of 05/22/2020 Sig: ALBUTEROL SULFATE 2.5 MG/3 ML* INHALE WITH 1 VIAL IN NEBULIZ * ALBUTEROL SULFATE 0.63 MG/3 M* 1 Ampule. METFORMIN 500 MG TABLET Take 500 mg by mouth twice da* SIMVASTATIN 40 MG TABLET Take 40 mg by mouth daily at * LISINOPRIL 20 MG-HYDROCHLOROT* Take 1 tablet by mouth once d * SINGULAIR ORAL Take by mouth. HYDROXYZINE PAMOATE ORAL Take by mouth. OMEPRAZOLE 40 MG CAPSULE,JOSE* Take 40 mg by mouth once serena * MULTIVITAL ORAL Take by mouth. CALCIUM 500 + D ORAL Take by mouth. ZYRTEC ORAL Take by mouth. PIOGLITAZONE 30 MG TABLET Take 30 mg by mouth once serena* CO Q-10 ORAL Take by mouth. GLIMEPIRIDE 4 MG TABLET Take 4 mg by mouth daily with* Problem List As Of Date: 05/22/2020 (None) Encounter Status:Closed by JAJA SANTIAGO CNP on 05/22/20 surgical pathology on 2020-04-29 SURGICAL Specimen originated from [facility] Normal 04-29-2020 [facility] Specimen #: [id number] Clinic Submitting Physician: CODY EDGAR MD [facility] ([id number]) FINAL DIAGNOSIS 1. Antrum, biopsy (A) - Antral mucosa with reactive gastropa thy. - No morphologic evidence of Helicobacter pylori. 2. Random colon, biopsy (B) - Colonic mucosa with no diagn ostic alteration. - No morphologic evidence of microscopic colitis. SR/dss 05/01/2020 Joel Merida MD, Ph.D. (Electronic Signature) SPECIMEN SUBMITTED A: ANTRUM, BIOPSY H/H B: RANDOM COLON, BIOPSY CLINICAL DATA R14.0, R10.10, Z80.0 GROSS DESCRIPTION A. Received in formalin is one piece of lewis, soft tissue leila suring 0.4 x 0.2 x 0.2 cm. Totally submitted in one cassette. B. Received in formalin are multiple pieces of lewis, soft t issue aggregating to 1.5 x 1.0 x 0.1 cm. Totally submitted in three cassettes. Gross examination performed at [facility], [address] [place] [address] GMR 04/30/2020 9:19:04 AM Date of Report: 05/01/2020 Date of Procedure: 04/29/2020 Date of Receipt: 04/29/2020 Submitted by: CODY EDGAR MD Location: W010 Diagnostic interpretation performed at [facility], [address] [place] [address]. CLIA Number: [id number] pt ed on 2020-04-29 PT ED HNO ID: [id number] Normal 04-29-2020 [facility] Author: Tyshawn Guevara RN [facility] ([id number]) Service: Nursing Author Type: Registered Nurse Type: Patient Education Filed: 04/29/2020 10:21 AM Note Text: POST OP LEARNING RESPONSE INSTRUCTION PROVIDED TO: Patient METHOD OF INSTRUCTION: Individual instruction Written instruction - handouts Verbal instruction PATIENT / FAMILY RESPONSE: Information received as demonstra mya by interest and questions FOLLOW-UP PLAN: Patient instructed to call with any further issues SUPPLEMENTAL MATERIAL: None REFERRAL (RECOMMENDATION): None Electronically Signed By: Tyshawn Guevara RN In Department: AMBULATORY SURGERY PT ED HNO ID: [id number] Normal 04-29-2020 [facility] Author: Tyshawn Guevara RN [facility] ([id number]) Service: Nursing Author Type: Registered Nurse Type: Patient Education Filed: 04/29/2020 9:06 AM Note Text: PRE OP LEARNING ASSESSMENT PROCEDURE/SURGERY: GI PROCEDURES: Colonoscopy and EGD READINESS TO LEARN COGNITIVE ABILITY: Alert and oriented MOTIVATION TO LEARN: Eager Interested FAMILY SUPPORT: Unable to assess - Family not present PATIENT LEARNS BEST BY: Individual Instruction Verbal Instruction FACTORS AFFECTING LEARNING: None PHYSICAL LIMITATIONS AFFECTING LEARNING: None Electronically Signed By: Tyshawn Guevara RN In Department: AMBULATORY SURGERY Discharge Instructions were reviewed pre-operatively with th e patient. All questions and concerns were addressed. Tyshawn Guevara RN nursing prog on NURSING PROG HNO ID: [id number] Normal 04-29-20 [facility] Author: Tyshawn Guevara RN [facility] ([id number]) Service: Nursing Author Type: Registered Nurse Type: Nursing Progress Note Filed: 04/29/2020 11:12 AM Note Text: Patient did not experience a fall prior to discharge. Patient did not experience a burn prior to discharge. Tyshawn Guevara RN NURSING PROG HNO ID: [id number] Normal 04-29-20 [facility] Author: Tyshawn FloresRn) EBER Guevara [facility] ([id number]) Service: Nursing Author Type: Registered Nurse Type: Nursing Progress Note Filed: 04/29/2020 10:01 AM Note Text: Pt into Endo recovery room in satisfactory condition. Restin g on left side. Pt. sleepy but arousable. Abdomen soft, no complaints. Will continue to monitor. NURSING PROG HNO ID: [id number] Normal 04-29-20 [facility] Author: Maci FloresRnOrquidea Horowitz RN [facility] ([id number]) Service: Nursing Author Type: Registered Nurse Type: Nursing Progress Note Filed: 04/29/2020 9:51 AM Note Text: Patient did not experience a fall within the Intraoperative area. Patient did not experience a burn within the Intraoperative area. Maci Horowitz RN NURSING PROG HNO ID: [id number] Normal 04-29-20 [facility] Author: Tyshawn FloresRn) EBER Guevara [facility] ([id number]) Service: Nursing Author Type: Registered Nurse Type: Nursing Progress Note Filed: 04/29/2020 10:24 AM Note Text: [facility] PRE-OP NURSING HAND OFF NOTE [facility] Hand off given to Maci Horowitz RN. Hand off was communicated verbally and at the patient's beds benedicto and all questions were answered. FALLS/BANERJEE Patient did not experience a fall within the Preoperative ar ea. Patient did not experience a burn within the Preoperative ar ea. Tyshawn Guevara RN history physical on 2020-04-29 HISTORY HNO ID: [id number] Normal 04-29-2020 [facility] Author: Cody [facility] Service: Gastroenterology [facility] Author Type: Physician ([id number]) Type: HANDP Filed: 04/29/2020 9:21 AM Note Text: PROCEDURAL SEDATION HISTORY AND PHYSICAL EXAM SERVICE DATE: 04/29/2020 SERVICE TIME: 9:21 AM Subjective HPI: This is a 69 year old female who presents with a family history of colon cancer and multiple upper and lower GI complaints PAST ANESTHESIA HISTORY: No history of adverse event PAST MEDICAL HISTORY Diagnosis Date - Asthma - Carotid stenosis - Delayed emergence from general anesthesia deep anesthesia - Diabetes mellitus, type 2 (HCC) - Hyperlipidemia - Hypertension - Sliding hiatal hernia PAST SURGICAL HISTORY Procedure Laterality Date - BREAST BIOPSY Bilateral benign - BREAST SURGERY HX - CHOLECYSTECTOMY - COLONOSCOPY 05/2017 - EGD 04/2017 - F SALPINGO-OOPHORECTOMY Left - PAST SURGICAL HISTORY OF left TM repair - TUBAL LIGATION Prior to Admission medications as of 04/29/20 0903 Medication Sig Last Dose Taking metFORMIN (GLUCOPHAGE) 500 mg tablet Take 500 mg by mouth tw ice daily with meals. 04/28/2020 at Unknown time Yes lisinopril-hydrochlorothiazide (PRINZIDE,ZESTORETIC) 20-12.5 mg per tablet Take 1 tablet by mouth once daily. 04/28/2020 at Unknown time Yes montelukast sodium (SINGULAIR ORAL) Take by mouth. 04/28/2020 at Unknown time Yes HYDROXYZINE PAMOATE ORAL Take by mouth. 04/28/2020 at Unknown time Yes Omeprazole 40 mg capsule Take 40 mg by mouth once daily. 04/16 at Unknown time Yes FA/mv,Ca,iron,min/lycopene/lut (MULTIVITAL ORAL) Take by parish th. Past Week at Unknown time Yes cetirizine HCl (ZYRTEC ORAL) Take by mouth. Past Week at [facility] nown time Yes pioglitazone (ACTOS) 30 mg tablet Take 30 mg by mouth once d aily. 04/28/2020 at Unknown time Yes ubidecarenone (CO Q-10 ORAL) Take by mouth. 04/28/2020 at [facility] nown time Yes glimepiride (AMARYL) 4 mg tablet Take 4 mg by mouth daily wi th breakfast. 04/28/2020 at Unknown time Yes albuterol (PROVENTIL) 2.5 mg /3 mL (0.083 %) nebulizer solut ion INHALE WITH 1 VIAL IN NEBULIZER EVERY SIX HOURS NEEDED Unknown a t Unknown time Albuterol Sulfate 0.63 mg/3 mL nebulizer solution 1 Ampule. Unknown at Unknown time simvastatin (ZOCOR) 40 mg tablet Take 40 mg by mouth daily a t bedtime. calcium carbonate/vitamin D3 (CALCIUM 500 + D ORAL) Take by mouth. Unknown at Unknown time ALLERGIES Allergen Reactions - Augmentin [Amoxicil* Rash - Cefzil [Cefprozil] Rash - Dayquil Allergy 12-* Hives - Erythromycin Rash - Ivp Dye [Iodine] Other: See Comments knot on head - Lincomycin Rash - Reglan [Metoclopram* Intolerance - Tequin [Gatifloxaci* Rash Objective PHYSICAL EXAM: The remainder of the physical exam is noncont ributory. AIRWAY: Airway Visualization of Uvula: Yes Mouth opening greater than 2 fingerbreadths: Yes Neck Full Range of Motion: Yes LUNGS: Lungs clear to auscultation, Good diaphragmatic excur samara CARDIAC: Normal S1 and S2; no rubs, murmurs, or gallops Assessment/Plan ASA Class: ASA Class:: Patient with mild systemic disease Active Problems: * No active hospital problems. * Resolved Problems: * No resolved hospital problems. * Provisional Diagnosis/Treatment Plan: Family history of colo n cancer and multiple upper and lower GI complaints/EGD and colonoscopy SEDATION GOAL: Moderate SIGNATURE: Cody Edgar MD PATIENT NAME: Ashwini Baron DATE: April 29, 2020 TIME: 9:21 AM PAGER: No panel information on 2020-04-29 Supervisor Laundry Pierre [facility] 04-29-2020 [facility] Gastrointestinal Endoscopy ([id number]) Patient Name: Ashwini Baron Procedure Date: 04/29/2020 8:23 AM Date of : 1950 Admit Type: Ambulatory Age: 69 Gender: Female Note Status: Finalized Sedation Initiated: 924 AM Procedure: Colonoscopy Indications: Family history of colon cancer in a fi rst-degree relative, Change in bowel habits Providers: Cody Edgar MD Patient Profile: This is a 69 year old female. Refer to note in patient chart for documentation of hist ory and physical. Last Colonoscopy: 5 years ago . Referring Physician: Kali Bacon MD Medicines: Fentanyl 100 micrograms IV, Midazolam 5 mg IV Complications: No immediate complications. Estimated blood loss: Minimal. Requesting Provider: Procedure: Pre-Anesthesia Assessment: - Prior to the procedure, a History and Physical was performed, and patient medications and allergies were reviewed. The patient is competent . The risks and benefits of the procedure and the s edation options and risks were discussed with t he patient. All questions were answered and informe d consent was obtained. Patient identification and pr oposed procedure were verified by the physicia n in the procedure room. Mental Status Examinati on: alert and oriented. Airway Examination: normal or opharyngeal airway and neck mobility. Respiratory E xamination: clear to auscultation. CV Examination: normal. Prophylactic Antibiotics: The patient d oes not require prophylactic antibiotics. Prior Anticoagulants: The patient has taken n o previous anticoagulant or antiplatelet agents. A SA Grade Assessment: II - A patient with mild sy stemic disease. After reviewing the risks and benefits, the patient was deemed in satisfactory cond ition to undergo the procedure. The anesthesia p kacy was to use moderate sedation / analgesia (cons cious sedation). Immediately prior to adminis tration of medications, the patient was re-assesse d for adequacy to receive sedatives. The hear t rate, respiratory rate, oxygen saturations, b lood pressure, adequacy of pulmonary ventila tion, and response to care were monitored through out the procedure. The physical status of the p atient was re-assessed after the procedure. After I obtained informed consent, the scope was passed under direct vision. Throughout the procedure, the patient's blood pressure , pulse, and oxygen saturations were monitored sammie nuously. The Colonoscope was introduced through the anus and advanced to the cecum, identified by th e appendiceal orifice, IC valve and transillumination . The colonoscopy was performed without diffi culty. The patient tolerated the procedure well. T yuni quality of the bowel preparation was adequate. The ileocecal valve, appendiceal orifice, and rectum were photographed. Findings: The colon (entire examined portion) appeared normal. Bio psies for histology were taken with a cold forceps from the entire colon for evaluation of microscopic colitis. Estimated blood loss was minimal. Impression: - The entire examined colon is normal. Biopsied. Recommendation: - Discharge patient to home. - Written discharge instructions were p rovided to the patient. - Resume previous diet. - Repeat colonoscopy in 5 years for arlette veillance. - Return to nurse practitioner at the n ext available appointment.Jaja Santiago RESIDENTIAL THERAPIST - [facility]. The signs and symptoms of potential delayed complications were discussed wi th the patient. Return to normal activities to borden. Written discharge instructions were pro vided to the patient. - Continue present medications. Attending Participation: I personally performed the entire procedure. I was prese nt and participated during the entire procedure, including non- ngo portions, and during the administration and monitoring of Moderate Sedation. Scope In: 9:34:19 AM Scope Out: 9:51:13 AM MD Cody Sheikh MD 04/29/2020 10:04:15 AM This report has been signed electronically by Cody ramirez MD Number of Addenda: 0 Note Initiated On: 04/29/2020 8:23 AM Estimated Blood Loss: Estimated blood loss was minimal. 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 Refer to note in patient chart for documentation of hist ory and physical. Referring Physician: Kali Bacon MD Medicines: Fentanyl 50 micrograms IV, Midazolam 5 mg IV Complications: No immediate complications. Estimated blood loss: Minimal. Requesting Provider: Procedure: Pre-Anesthesia Assessment: - Prior to the procedure, a History and Physical was performed, and patient medications and allergies were reviewed. The patient is competent . The risks and benefits of the procedure and the s edation options and risks were discussed with t he patient. All questions were answered and informe d consent was obtained. Patient identification and pr oposed procedure were verified by the physicia n in the procedure room. Mental Status Examinati on: alert and oriented. Airway Examination: normal or opharyngeal airway and neck mobility. Respiratory E xamination: clear to auscultation. CV Examination: normal. Prophylactic Antibiotics: The patient d oes not require prophylactic antibiotics. Prior Anticoagulants: The patient has taken n o previous anticoagulant or antiplatelet agents. A SA Grade Assessment: II - A patient with mild sy stemic disease. After reviewing the risks and benefits, the patient was deemed in satisfactory cond ition to undergo the procedure. The anesthesia p kacy was to use moderate sedation / analgesia (cons cious sedation). Immediately prior to adminis tration of medications, the patient was re-assesse d for adequacy to receive sedatives. The hear t rate, respiratory rate, oxygen saturations, b lood pressure, adequacy of pulmonary ventila tion, and response to care were monitored through out the procedure. The physical status of the p atient was re-assessed after the procedure. After obtaining informed consent, the e ndoscope was passed under direct vision. Throughout the procedure, the patient's blood pressure , pulse, and oxygen saturations were monitored sammie nuously. The Endoscope was introduced through the mo ut, and advanced to the third part of duodenum. The upper GI endoscopy was accomplished without diff iculty. The patient tolerated the procedure well. Findings: The examined esophagus was normal. Scattered mild inflammation characterized by adherent bl ood was found in the entire examined stomach. Biopsies were taken with a cold forceps for histology. Estimated blood loss was minimal. The examined duodenum was normal. Impression: - Normal esophagus. - Gastritis. Biopsied. - Normal examined duodenum. Recommendation: - Discharge patient to home. - Written discharge instructions were p rovided to the patient. - Resume previous diet. - Return to nurse practitioner at the n ext available appointment. Jaja Santiago RESIDENTIAL THERAPIST Attending Participation: I personally performed the entire procedure. I was prese nt and participated during the entire procedure, including non- ngo portions, and during the administration and monitoring of Moderate Sedation. Scope In: 9:25:13 AM Scope Out: 9:32:10 AM MD Cody Sheikh MD 04/29/2020 9:34:59 AM This report has been signed electronically by Cody ramirez MD Number of Addenda: 0 Note Initiated On: 04/29/2020 8:24 AM Estimated Blood Loss: Estimated blood loss was minimal. progress on 2020-03 PROGRESS HNO ID: [id number] Normal 03-18-2020 [facility] Author: Kaela Estrada [facility] Service: ? ([id number]) Author Type: Physician Nutrition And Dietetics Instructor Type: Progress Notes Filed: 03/17/2020 11:34 PM Note Text: HISTORY AND PHYSICAL Ashwini Baron 1950 REFERRING PHYSICIAN: Kali Bacon,* CHIEF COMPLAINT: No chief complaint on file. HPI: The patient is a 69 year old female referred for endosc opy. Ashwini notes a family history of colon cancer, and a long-standing personal history of GI complaints. She describes recent changes in emily wel habits, currently notes constipation. She additionally notes dysphag ia, stomach swelling, and [facility] abdominal discomfort [facility] She denies specific aggravating or alleviating factors. She is s /p cholecystectomy. Ashwini has undergone prior endoscopy in 2017, records not curr ently available for review. She denies polyps or other concerning findings at that time. She is interested in establishing with Gastroente rology through [facility]. Patient denies chest pain, shortness of breath or recent hos pitalization. Denies problems with sedation in the past. PAST MEDICAL HISTORY Diagnosis Date - Asthma - Carotid stenosis - Diabetes mellitus, type 2 (HCC) - Hyperlipidemia - Hypertension - Sliding hiatal hernia PAST SURGICAL HISTORY Procedure Laterality Date - BREAST BIOPSY Bilateral benign - CHOLECYSTECTOMY - COLONOSCOPY 05/2017 - EGD 04/2017 - F SALPINGO-OOPHORECTOMY Left - PAST SURGICAL HISTORY OF left TM repair - TUBAL LIGATION Current Outpatient Medications Medication Sig - Albuterol Sulfate 0.63 mg/3 mL nebulizer solution 1 Ampule . - simvastatin (ZOCOR) 40 mg tablet Take 40 mg by mouth daily at bedtime. - lisinopril-hydrochlorothiazide (PRINZIDE,ZESTORETIC) 20-12 .5 mg per tablet Take 1 tablet by mouth once daily. - montelukast sodium (SINGULAIR ORAL) Take by mouth. - FA/mv,Ca,iron,min/lycopene/lut (MULTIVITAL ORAL) Take by m outh. - calcium carbonate/vitamin D3 (CALCIUM 500 + D ORAL) Take b y mouth. - cetirizine HCl (ZYRTEC ORAL) Take by mouth. - pioglitazone (ACTOS) 30 mg tablet Take 30 mg by mouth once daily. - ubidecarenone (CO Q-10 ORAL) Take by mouth. - glimepiride (AMARYL) 4 mg tablet Take 4 mg by mouth daily with breakfast. - albuterol (PROVENTIL) 2.5 mg /3 mL (0.083 %) nebulizer mat ution INHALE WITH 1 VIAL IN NEBULIZER EVERY SIX HOURS NEEDED - metFORMIN (GLUCOPHAGE) 500 mg tablet Take 500 mg by mouth twice daily with meals. - HYDROXYZINE PAMOATE ORAL Take by mouth. - Omeprazole 40 mg capsule Take 40 mg by mouth once daily. No current facility-administered medications for this visit. ALLERGIES: Augmentin [Amoxicillin-Pot Clavulanate], Cefzil [ Cefprozil], Dayquil Allergy 12-Hr, Erythromycin, Ivp Dye [Iodine], Linco mycin, Reglan [Metoclopramide Hcl], and Tequin [Gatifloxacin] PERSONAL HISTORY: Social History Tobacco Use - Smoking status: Never Smoker - Smokeless tobacco: Never Used Substance Use Topics - Alcohol use: Not on file - Drug use: Not on file FAMILY HISTORY: FAMILY HISTORY Problem Relation Age of Onset - Colon Cancer Sister 67 - Thyroid Cancer Brother - Cancer Sister vaginal REVIEW OF SYMPTOMS: The review of systems data was entered by the nurse and revmarleni moon by ne Nursing Notes: Rachael Gardner LPN 03/12/2020 4:16 PM Signed REVIEW OF SYSTEMS: General: The patient NOTES fatigue, NOTES weight loss, NOTES weight gain, denies feeling hot, and denies feelings of cold. Eyes: The patient denies glaucoma, denies eye injury/surgery , wears glasses or contacts. Ear/Nose/Throat: The patient NOTES allergies, denies hayfeve r, NOTES ear infections, and denies bloody noses. Cardiovascular: The patient denies chest pain, denies heart disease, NOTES high blood pressure,denies cardiac stent, denies prior heart attack, denies irregular heart beat, NOTES high cholesterol, denies poor circulation, denies heart failure, other cardiac issues, NOT ES claudication, denies cold feet, denies peripheral arterial s tent. Respiratory: The patient denies tuberculosis, NOTES pneumoni a, NOTES frequent cough, denies pulmonary embolism, NOTES shortness o f breath, and denies coughing up blood. Gastrointestinal: The patient denies difficulty swallowing, NOTES acid reflux, NOTES ulcers, denies vomiting, denies jaundice/ hepatitis, NOTES gallbladder problems, denies black or tarry stools, NO PITA hemorrhoids, denies bleeding from rectum, denies diverticuli tis, NOTES constipation, NOTES diarrhea, denies loss of stool control, and denies hernias. Kidney/Bladder: The patient NOTES kidney stones, NOTES urine infections, and denies bloody urine. Skin: The patient denies a history of skin cancer, denies bleeding/changing moles, and denies a history of skin rash. Neurologic: The patient denies a history of epilepsy/convuls ions, NOTES headaches, NOTES head/spinal injuries, and denies stro ke/TIA. Psychiatric: The patient denies psychiatric medications, den ies depression, and denies voices, denies substance abuse. Endocrine: The patient denies thyroid disorders, NOTES diabe pita, and denies hormonal problems. Hematologic: The patient denies a history of bruising, denie s bleeding, and denies anemia, denies blood clots. Infections: The patient NOTES a history of measles and mumps , denies rheumatic fever, and denies sexually transmitted diseases. Musculoskeletal: The patient NOTES back pain/injury, NOTES b ack problems, NOTES sciatica, NOTES knee/foot trouble, NOTES art hritis, or denies gout. When was patient's last Mammogram screening? 2019 Last Colonoscopy: 2017 Rachael Gardner LPN I have confirmed and edited as necessary, the PFSH and ROS o btained by others. PHYSICAL EXAMINATION: General: The patient is 69 year old female, well nourished, well hydrated in no acute distress. The patient is oriented to time, place , and person. VITALS: Blood pressure 126/76, pulse 83, temperature 37.1 ?C (98.8 ?F), weight 95.9 kg (211 lb 6.4 oz), SpO2 96 %. There is no heigh t or weight on file to calculate BMI. HEENT: Normal cephalic, ataumatic, pupils are equally round, sclera are anicteric, mucous membranes are moist, oropharynx is clear. Neck has no masses, asymmetry or lymphadenopathy. Respiratory: Clear to auscultation and percussion. Normal re spiratory excursion and pattern. Cardiac: Examination is regular rate and rhythm. Normal S1/S 2 Abdominal exam: Soft, nontender, with no palpable masses. No hepatosplenomegaly. No palpable hernias. Extremities: no clubbing, cyanosis or edema. No adenopathy. LABORATORY VALUES: As Noted RADIOLOGIC STUDIES: As Noted Assessment IMPRESSION: constipation, upper abdominal discomfort. PLAN: Patient requesting to have procedures done with GI [facility], will set her up with Dr. Edgar. I have reviewed my findings with the physician. Will plan for upper and lower endoscopy. We discu ssed the risks and benefits of the planned endoscopy. I have informed the patient that complications can occur including failure to complete t he endoscopy and perforation. The patient had the opportunity to ask ques tions concerning the planned endoscopy. My staff has also explaine d the procedure to the patient in understandable terms and has giv en the patient printed material concerning the procedure. The patient freel y consents to surgery. I plan to use Golytely bowel preparation The patient was offered a surgery/procedure at a [facility] facility. I have counseled the patient regarding the risk of exposure to and/or potential harm posed by the COVID-19 virus with havin g a surgery/procedure at this time versus the risk of delaying t he surgery/procedure. It is not possible to know either the ris k of delaying the surgery or procedure or chance of getting an infection w ith perfect accuracy, but a joint decision was made between the patient and myself to proceed at this time with endoscopy. Diagnoses: (R19.4) Change in bowel habits (primary encounter diagnosis) (K59.00) Constipation, unspecified constipation type (R10.11, R10.12) Bilateral upper abdominal pain (R13.10) Dysphagia, unspecified type Kaela Estrada PA-C hosp on 2020-03-12 HOSP Patient:Ashwini Baron Normal 03-12-20 [facility] MRN: [facility] ([id number]) Height:No patient height recorded for this patient. Weight:No patient weight recorded within the last 30 days. Outpatient Medications as of 04/29/20: albuterol (PROVENTIL) 2.5 mg /3 mL (0.083 %) nebulizer solut ion Albuterol Sulfate 0.63 mg/3 mL nebulizer solution metFORMIN (GLUCOPHAGE) 500 mg tablet simvastatin (ZOCOR) 40 mg tablet lisinopril-hydrochlorothiazide (PRINZIDE,ZESTORETIC) 20-12.5 mg per tablet montelukast sodium (SINGULAIR ORAL) HYDROXYZINE PAMOATE ORAL Omeprazole 40 mg capsule FA/mv,Ca,iron,min/lycopene/lut (MULTIVITAL ORAL) calcium carbonate/vitamin D3 (CALCIUM 500 + D ORAL) cetirizine HCl (ZYRTEC ORAL) pioglitazone (ACTOS) 30 mg tablet ubidecarenone (CO Q-10 ORAL) glimepiride (AMARYL) 4 mg tablet Admission/Clinic Administered Medications as of 04/29/20: lactated ringers infusion Problem List: No problem list on file for this patient. Allergies: Augmentin [Amoxicillin-Pot Clavulanate] Cefzil [Cefprozil] Dayquil Allergy 12-Hr Erythromycin Ivp Dye [Iodine] Lincomycin Reglan [Metoclopramide Hcl] Tequin [Gatifloxacin] Date Verified: 04/29/20 Lab Values No results within the last 30 days for the following basenam es: K,HCT No progress notes entered within the past 30 days cnpn on 2020-03-12 CNPN Telephone (SEAN) Normal 03-12-2020 [facility] ASHWINI BARON ([id number]) 1950 [facility] Time Provider Department ([id number]) 03/12/20 CODY EDGAR During your visit today, we recorded the following informati on about you: Vahe Askew 03/12/2020 4:33 PM Signed 04-29-2020 Colon EGD Vahe Askew Allergies As of Date: 03/12/2020 Noted Allergy Reaction AUGMENTIN (AMOXICILLIN-POT CLAVUL*04/27/2018 2 - Rash CEFZIL (CEFPROZIL) 04/27/2018 2 - Rash DAYQUIL ALLERGY 12-HR 04/27/2018 4 - Hives ERYTHROMYCIN 04/27/2018 2 - Rash IVP DYE (IODINE) 04/27/2018 14 - Other: See Comments Comments: knot on head LINCOMYCIN 04/27/2018 2 - Rash REGLAN (METOCLOPRAMIDE HCL) 04/27/2018 5 - Intolerance TEQUIN (GATIFLOXACIN) 04/27/2018 2 - Rash Date Reviewed: 03/12/2020 Reviewed by: Cody Edgar - Fully Assessed Reason for Visit: 04-29-2020 Colon EGD [Other] Prescriptions as of 03/12/2020 Sig: ALBUTEROL SULFATE 2.5 MG/3 ML* INHALE WITH 1 VIAL IN NEBULIZ * ALBUTEROL SULFATE 0.63 MG/3 M* 1 Ampule. PEG 3350-ELECTROLYTES 236 GRA* Take 4,000 mL by mouth one ti * METFORMIN 500 MG TABLET Take 500 mg by mouth twice da* SIMVASTATIN 40 MG TABLET Take 40 mg by mouth daily at * LISINOPRIL 20 MG-HYDROCHLOROT* Take 1 tablet by mouth once d * SINGULAIR ORAL Take by mouth. HYDROXYZINE PAMOATE ORAL Take by mouth. OMEPRAZOLE 40 MG CAPSULE,JOSE* Take 40 mg by mouth once serena * MULTIVITAL ORAL Take by mouth. CALCIUM 500 + D ORAL Take by mouth. ZYRTEC ORAL Take by mouth. PIOGLITAZONE 30 MG TABLET Take 30 mg by mouth once serena* CO Q-10 ORAL Take by mouth. GLIMEPIRIDE 4 MG TABLET Take 4 mg by mouth daily with* Problem List As Of Date: 03/12/2020 (None) Encounter Status:Closed by VAHE ASKEW on 05/01/20 cnov on 2020-03-12 CNOV Office Visit (SEAN) Normal 03-12-[address] [place] [address] [facility] ASHWINI BARON ([id number]) 1950 [facility] Date Time Provider Department ([id number]) 03/12/20 3:30 PM KAELA ESTRADA During your visit today, we recorded the following informati on about you: Temperature Pulse Blood pressure Weight 98.8 degrees 83/minute 126/76 95.9 kg Rachael Jj BURCIAGA 03/12/2020 4:16 PM Signed REVIEW OF SYSTEMS: General: The patient NOTES fatigue, NOTES weight loss, NOTES weight gain, denies feeling hot, and denies feelings of cold. Eyes: The patient denies glaucoma, denies eye injury/surgery , wears glasses or contacts. Ear/Nose/Throat: The patient NOTES allergies, denies hayfeve r, NOTES ear infections, and denies bloody noses. Cardiovascular: The patient denies chest pain, denies heart disease, NOTES high blood pressure,denies cardiac stent, denies prior heart attack, denies irregular heart beat, NOTES high choleste rol, denies poor circulation, denies heart failure, other cardiac issues, NOTES claudica tion, denies cold feet, denies peripheral arterial stent. Respiratory: The patient denies tuberculosis, NOTES pneumoni a, NOTES frequent cough, denies pulmonary embolism, NOTES shortness o f breath, and denies coughing up blood. Gastrointestinal: The patient denies difficulty swallowing, NOTES acid reflux, NOTES ulcers, denies vomiting, denies jaundice/hepat itis, NOTES gallbladder problems, denies black or tarry stoo ls, NOTES hemorrhoids, denies bleeding from rectum, denies diverticulitis, NOTES constipat ion, NOTES diarrhea, denies loss of stool control, and denies hernias. Kidney/Bladder: The patient NOTES kidney stones, NOTES urine infections, and denies bloody urine. Skin: The patient denies a history of skin cancer, denies bleeding/changing moles, and denies a history of skin rash. Neurologic: The patient denies a history of epilepsy/convuls ions, NOTES headaches, NOTES head/spinal injuries, and denies stroke/TIA . Psychiatric: The patient denies psychiatric medications, den ies depression, and denies voices, denies substance abuse. Endocrine: The patient denies thyroid disorders, NOTES diabe pita, and denies hormonal problems. Hematologic: The patient denies a history of bruising, denie s bleeding, and denies anemia, denies blood clots. Infections: The patient NOTES a history of measles and mumps , denies rheumatic fever, and denies sexually transmitted diseases. Musculoskeletal: The patient NOTES back pain/injury, NOTES b ack problems, NOTES sciatica, NOTES knee/foot trouble, NOTES arthritis, or denies gout. When was patient's last Mammogram screening? 2019 Last Colonoscopy: 2017 Rachael Estrada PA-C 03/17/2020 11:34 PM Signed HISTORY AND PHYSICAL Ashwini Baron 1950 REFERRING PHYSICIAN: Kali Bacon,* CHIEF COMPLAINT: No chief complaint on file. HPI: The patient is a 69 year old female referre d for endoscopy. Ashwini notes a family history of colon cancer, and a long-standing personal history of GI complaints. She describes recent changes in bowel habits, cu rrently notes constipation. She additionally notes dysphagia, stomach swelling, and upper abdominal discomfort particularly at [employer] [facility]. She denies specific aggravating or alleviating factors. She is s/p cholecystectomy. Ashwini has undergone prior end oscopy in 2017, records not currently available for review. She denies polyps or other concerning findings at that time. She is interested in establishing with Gastroenterology through [facility] . Patient denies chest pain, shortness of breath or recent hos pitalization. Denies problems with sedation in the past. PAST MEDICAL HISTORY Diagnosis Date - Asthma - Carotid stenosis - Diabetes mellitus, type 2 (HCC) - Hyperlipidemia - Hypertension - Sliding hiatal hernia PAST SURGICAL HISTORY Procedure Laterality Date - BREAST BIOPSY Bilateral benign - CHOLECYSTECTOMY - COLONOSCOPY 05/2017 - EGD 04/2017 - F SALPINGO-OOPHORECTOMY Left - PAST SURGICAL HISTORY OF left TM repair - TUBAL LIGATION Current Outpatient Medications Medication Sig - Albuterol Sulfate 0.63 mg/3 mL nebulizer solution 1 Ampule . - simvastatin (ZOCOR) 40 mg tablet Take 40 mg by mouth daily at bedtime. - lisinopril-hydrochlorothiazide (PRINZIDE,ZESTORETIC) 20-12.5 mg per tablet Take 1 tablet by mouth once daily. - montelukast sodium (SINGULAIR ORAL) Take by mouth. - FA/mv,Ca,iron,min/lycopene/lut (MULTIVITAL ORAL) Take by m outh. - calcium carbonate/vitamin D3 (CALCIUM 500 + D ORAL) Take b y mouth. - cetirizine HCl (ZYRTEC ORAL) Take by mouth. - pioglitazone (ACTOS) 30 mg tablet Take 30 mg by mouth once daily. - ubidecarenone (CO Q-10 ORAL) Take by mouth. - glimepiride (AMARYL) 4 mg tablet Take 4 mg by mouth serena y with breakfast. - albuterol (PROVENTIL) 2.5 mg /3 mL (0.083 %) nebulizer solution INHALE WITH 1 VIAL IN NEBULIZER EVERY SIX HOURS NEEDED - metFORMIN (GLUCOPHAGE) 500 mg tablet Take 500 mg by mouth twice daily with meals. - HYDROXYZINE PAMOATE ORAL Take by mouth. - Omeprazole 40 mg capsule Take 40 mg by mouth once daily. No current facility-administered medications for this visit. ALLERGIES: Augmentin [Amoxic illin-Pot Clavulanate], Cefzil [Cefprozil], Dayquil Allergy 12-Hr, Erythromycin, Ivp Dye [Iodine], Lincomycin, R eglan [Metoclopramide Hcl], and Tequin [Gatifloxacin] PERSONAL HISTORY: Social History Tobacco Use - Smoking status: Never Smoker - Smokeless tobacco: Never Used Substance Use Topics - Alcohol use: Not on file - Drug use: Not on file FAMILY HISTORY: FAMILY HISTORY Problem Relation Age of Onset - Colon Cancer Sister 67 - Thyroid Cancer Brother - Cancer Sister vaginal REVIEW OF SYMPTOMS: The review of systems data was entered by the nurse and revi ewed by ne Nursing Notes: Rachael Gardner LPN 03/12/2020 4:16 PM Signed REVIEW OF SYSTEMS: General: The patient NOTES fatigue, NOTES weight loss, NOTES weight gain, denies feeling hot, and denies feelings of cold. Eyes: The patient denies glaucoma, denies eye injury/surgery , wears glasses or contacts. Ear/Nose/Throat: The patient NOTES allergies, denies hayfeve r, NOTES ear infections, and denies bloody noses. Cardiovascular: The patient denies chest pain, denies heart disease, NOTES high blood pressure,denies cardiac stent, denies prior heart attack, denies irregular heart beat, NOTES high choleste rol, denies poor circulation, denies heart failure, other cardiac issues, NOTES claudica tion, denies cold feet, denies peripheral arterial stent. Respiratory: The patient denies tuberculosis, NOTES pneumoni a, NOTES frequent cough, denies pulmonary embolism, NOTES shortness o f breath, and denies coughing up blood. Gastrointestinal: The patient denies difficulty swallowing, NOTES acid reflux, NOTES ulcers, denies vomiting, denies jaundice/hepat itis, NOTES gallbladder problems, denies black or tarry stoo ls, NOTES hemorrhoids, denies bleeding from rectum, denies diverticulitis, NOTES constipat ion, NOTES diarrhea, denies loss of stool control, and denies hernias. Kidney/Bladder: The patient NOTES kidney stones, NOTES urine infections, and denies bloody urine. Skin: The patient denies a history of skin cancer, denies bleeding/changing moles, and denies a history of skin rash. Neurologic: The patient denies a history of epilepsy/convuls ions, NOTES headaches, NOTES head/spinal injuries, and denies stroke/TIA . Psychiatric: The patient denies psychiatric medications, den ies depression, and denies voices, denies substance abuse. Endocrine: The patient denies thyroid disorders, NOTES diabe pita, and denies hormonal problems. Hematologic: The patient denies a history of bruising, denie s bleeding, and denies anemia, denies blood clots. Infections: The patient NOTES a history of measles and mumps , denies rheumatic fever, and denies sexually transmitted diseases. Musculoskeletal: The patient NOTES back pain/injury, NOTES b ack problems, NOTES sciatica, NOTES knee/foot trouble, NOTES arthritis, or denies gout. When was patient's last Mammogram screening? 2019 Last Colonoscopy: 2017 Rachael Gardner LPN I have confirmed and edited as necessary , the PFSH and ROS obtained by others. PHYSICAL EXAMINATION: General: The patient is 69 year old female, well josé manuel shed, well hydrated in no acute distress. The patient is oriented to time, place, a nd person. VITALS: Blood pressure 126/76, pulse 83, temperature 37.1 ?C (98.8 ?F), weight 95.9 kg (211 lb 6.4 oz), SpO2 96 %. There is no height or weight on file to calculate BMI. HEENT: Normal cephalic, ataumatic, pupils are equally round, sclera are anicteric, mucous membranes are moist, oropharynx is clear. Neck has no masses, asymmetry or lymphadenopathy. Respiratory: Clear to auscultation and percussion. Normal re spiratory excursion and pattern. Cardiac: Examination is regular rate and rhythm. Normal S1/S 2 Abdominal exam: Soft, nontender, with no palpable masses. No hepatosplenomegaly. No palpable hernias. Extremities: no clubbing, cyanosis or edema. No adenopathy. LABORATORY VALUES: As Noted RADIOLOGIC STUDIES: As Noted Assessment IMPRESSION: constipation, upper abdominal discomfort. PLAN: Patient requesting to have procedures done with GI physician, will set her up with Dr. Edgar. I have reviewed my findings wi th the physician. Will plan for upper and lower endoscopy. We discussed the risks a nd benefits of the planned endoscopy. I have informed the patient that comp lications can occur including failure to complete the endoscopy and perforation. The patient had the opportunity to ask questions concerning the planned endoscopy. My staff has also explained the procedure to the pa dina in understandable terms and has given the patient printed material concerning the pr ocedure. The patient freely consents to surgery. I plan to use Golytely bowel preparation The patient was offered a surgery/procedure at a [facility] facility. I have counseled the patient regarding the risk of exposure to and/or potential harm posed by the COVID-19 virus with having a s urgery/procedure at this time versus the risk of delaying the surgery/procedur e. It is not possible to know either the risk of delaying the surgery or procedure o r chance of getting an infection with perfect accuracy, but a joint decision was ma de between the patient and myself to proceed at this time with endoscopy. Diagnoses: (R19.4) Change in bowel habits (primary encounter diagnosis) (K59.00) Constipation, unspecified constipation type (R10.11, R10.12) Bilateral upper abdominal pain (R13.10) Dysphagia, unspecified type Kaela Estrada PA-C Referring Provider: KALI BACON [[id number]] Allergies As of Date: 03/12/2020 Noted Allergy Reaction AUGMENTIN (AMOXICILLIN-POT CLAVUL*04/27/2018 2 - Rash CEFZIL (CEFPROZIL) 04/27/2018 2 - Rash DAYQUIL ALLERGY 12-HR 04/27/2018 4 - Hives ERYTHROMYCIN 04/27/2018 2 - Rash IVP DYE (IODINE) 04/27/2018 14 - Other: See Comments Comments: knot on head LINCOMYCIN 04/27/2018 2 - Rash REGLAN (METOCLOPRAMIDE HCL) 04/27/2018 5 - Intolerance TEQUIN (GATIFLOXACIN) 04/27/2018 2 - Rash Date Reviewed: 03/12/2020 Reviewed by: Cody Edgar - Fully Assessed Primary Visit Diagnosis:Change in bowel habits [R19.4] Other Visit Diagnoses:Constipation, unspecified constipation type [K59.00] Bilateral upper abdominal pain [R10.11, R10.12] Dysphagia, unspecified type [R13.10] Order(s):[] peg 3350-Electrolytes (GOLYTE LY) 236-22.74-6.74 -5.86 gram suspensionTake 4,000 mL by mouth one time only for 1 dose.Di sp: 1 BottleRfl: 0 EGD [[id number]] Order #: [id number] COLONOSCOPY - DIAGNOSTIC [0055957] Order #: [id number] Prescriptions as of 03/12/2020 Sig: ALBUTEROL SULFATE 0.63 MG/3 M* 1 Ampule. SIMVASTATIN 40 MG TABLET Take 40 mg by mouth daily at * LISINOPRIL 20 MG-HYDROCHLOROT* Take 1 tablet by mouth once d * SINGULAIR ORAL Take by mouth. MULTIVITAL ORAL Take by mouth. CALCIUM 500 + D ORAL Take by mouth. ZYRTEC ORAL Take by mouth. PIOGLITAZONE 30 MG TABLET Take 30 mg by mouth once serena* CO Q-10 ORAL Take by mouth. GLIMEPIRIDE 4 MG TABLET Take 4 mg by mouth daily with* ALBUTEROL SULFATE 2.5 MG/3 ML* INHALE WITH 1 VIAL IN NEBULIZ * PEG 3350-ELECTROLYTES 236 GRA* Take 4,000 mL by mouth one ti * METFORMIN 500 MG TABLET Take 500 mg by mouth twice da* HYDROXYZINE PAMOATE ORAL Take by mouth. OMEPRAZOLE 40 MG CAPSULE,JOSE* Take 40 mg by mouth once serena * Problem List As Of Date: 03/12/2020 (None) Visit Notes: >> Rachael Gardner LPN guillermo Mar 12, 2020 4:14 PM Status: Signed REVIEW OF SYSTEMS: General: The patient NOTES fatigue, NOTES weight loss, NOTES weight gain, denies feeling hot, and denies feelings of cold. Eyes: The patient denies glaucoma, denies eye injury/surgery , wears glasses or contacts. Ear/Nose/Throat: The patient NOTES allergies, denies hayfeve r, NOTES ear infections, and denies bloody noses. Cardiovascular: The patient denies chest pain, denies heart disease, NOTES high blood pressure,denies cardiac stent, denies prior heart attack, denies irregular heart beat, NOTES high cholesterol, denies poor circulation, denies heart failure, other cardiac issues, NOT ES claudication, denies cold feet, denies peripheral arterial s tent. Respiratory: The patient denies tuberculosis, NOTES pneumoni a, NOTES frequent cough, denies pulmonary embolism, NOTES shortness o f breath, and denies coughing up blood. Gastrointestinal: The patient denies difficulty swallowing, NOTES acid reflux, NOTES ulcers, denies vomiting, denies jaundice/ hepatitis, NOTES gallbladder problems, denies black or tarry stools, NO PITA hemorrhoids, denies bleeding from rectum, denies diverticuli tis, NOTES constipation, NOTES diarrhea, denies loss of stool control, and denies hernias. Kidney/Bladder: The patient NOTES kidney stones, NOTES urine infections, and denies bloody urine. Skin: The patient denies a history of skin cancer, denies bleeding/changing moles, and denies a history of skin rash. Neurologic: The patient denies a history of epilepsy/convuls ions, NOTES headaches, NOTES head/spinal injuries, and denies stro ke/TIA. Psychiatric: The patient denies psychiatric medications, den ies depression, and denies voices, denies substance abuse. Endocrine: The patient denies thyroid disorders, NOTES diabe pita, and denies hormonal problems. Hematologic: The patient denies a history of bruising, denie s bleeding, and denies anemia, denies blood clots. Infections: The patient NOTES a history of measles and mumps , denies rheumatic fever, and denies sexually transmitted diseases. Musculoskeletal: The patient NOTES back pain/injury, NOTES b ack problems, NOTES sciatica, NOTES knee/foot trouble, NOTES art hritis, or denies gout. When was patient's last Mammogram screening? 2019 Last Colonoscopy: 2017 Rachael Gardner [facility] Prescriptions ordered this encounter Disp Refills Start End PEG 3350-ELECTROLYTES 236 GRAM-22.74* 1 Emily* 0 03/12/2020 Route: ORAL Sig: Take 4,000 mL by mouth one time only for 1 dose. Encounter Status:Closed by KAELA ESTRADA PA-C on 03/17/20 lab report: pap i-g hpv hi risk on 2017-04-07 GE use only - for Positive Negative High 04-07-2017 - [place] [facility] import 04-07-2017 Ca re (56005) when terms are not otherwise specified HPV HC,HGH RISK Positive Negative High 04-07-2017 - [facility] 04-07-2017 Care (446 91) office visit: new annual on 2017-04-01 Documentation of Done Invalid 04-01-2017 [facility] current medications Interpretation Code 04-01-2017 [facility] (procedure) (63454) Fall risk No Invalid [facility] Code 7 [facility] (65728) Protein mass conc Done 04-01-2017 - [place] 04-01-2017 [facility] (47441) Tobacco smoking Never smoker 04-01-2017 - [place] status DEIS 04-01-2017 [facility] (76804) Tobacco smoking Never Invalid 04-01-2017 [facility] Interpretation Code 04-01-20 [facility] (44746) Tobacco use CPHS Never smoker Invalid 04-01-2017 [place] Interpretation Code 04-01-2017 [facility] (85431) lab report: ct/ng wch by pcr on 2017-04-01 C. trachomatis DNA Negative Negative 04-01-2017 [place] CLAUDIA+probe Ql (U) 04-01-2017 [facility] (88285) Chlamydia Negative Negative Invalid 04-01-2017 - [facility] [place] trachomatis DNA Interpretation 7 [facility] [Presence] in Code (06702 ) Urine by Probe and target amplification method N. gonorrhoeae DNA Negative Negative Invalid 04-01-2017 [place] CLAUDIA+probe Ql (Unsp Interpretation 2016 [facility] spec) Code (58021) office visit: new annual on 2013-08-16 Breast Mammogram Normal Invalid 08-16-2013 - [place] screening Bilateral Interpretation Code 08-16-2013 [facility] (06998) MG Breast Normal [facility] Bilateral 08-16-2013 [facility] (86743) General Normal Invalid 08-16-2013 - [place] categories Interpretation Code 4 [facility] [Interpretation] (44 661) of Cervical or vaginal smear or scraping by Cyto stain General Normal 08-16-2013 - [place] gtmarquita categories Cyto 08-16-2013 [facility] stain Interp (89707) (Cervical or vaginal smear or scraping) Vital Signs Vital Sign Description Value / Unit Date Location The following section is limited to 5 en tries per type and includes entries from the following time range: 20170401 - 20170316 7. BMI (Body Mass Index) 34.29 kg/m2 04-01-2017 - 04-01-2017 [facility] (76420) Body Temperature 97.1 [degF] 04-01-2017 - 04-01-2017 [place] [facility] (75959) Body Temperature 97.11 [degF] 04-01-2017 - 04-01-2017 [place] [facility] (24220) BP Diastolic 93 mm[Hg] 04-01-2017 - 04-01-2017 [facility] (45774) BP Systolic 156 mm[Hg] 04-01-2017 - 04-01-2017 [place] [facility] (88943) Height 160.02 cm 04-01-2017 - 04-01-2017 [place] [facility] (27934) Pulse (Heart Rate) 68 /min 04-01-2017 - 04-01-2017 [facility] (46912) Respiratory Rate 16 /min 04-01-2017 - 04-01-2017 [place] [facility] (73368) Weight 87.82 kg 04-01-2017 - 04-01-2017 [place] [facility] (43639) Encounters Date Type Reason Provider Location 05-23-2020 - [facility] 05-23-2020 procedure 04-30-2020 - [facility] 04-30-2020 procedure 04-29-2020 - Patient encounter [facility] Provider [facility] 04-29-2020 procedure 05-23-2020 Results Only [facility] 04-30-2020 Results Only [facility] 04-29-2020 - [facility] 05-22-2020 - Telephone encounter Jaja Santiago Gastro enterology 05-22-2020 Comment: Appointment (original appoin tment time available) 03-12-2020 - 03-12-2020 Telephone encounter Cody potts General Surgery Comment: 04-29-2020 Colon EGD Procedures Procedure Name Date Provider Location PT ED PATIENT INFORMATION 05-23-2020 [facility] (34001) PT ED PATIENT INFORMATION 04-30-2020 Jaja [facility] (32248) Esophagogastroduodenoscopy transoral 04-29-2020 [facility] Provide r [facility] diagnostic (41727) Colonoscopy flx dx w/collj spec when 04-29-2020 [facility] Provide r [facility] pfrmd (06171) Gynecologic examination 04-01-2017 [facility] (96600) Screening mammography 04-01-2017 [facility] (11263) Venereal disease screening 04-01-2017 [facility] (91430) Plan of Treatment Plan Description Date Location INFLUENZA (#1) INFLUENZA (#1) 2020 - [facility] 04-16-2020 (09342) ADVANCE DIRECTIVE ADVANCE DIRECTIVE 2017 - [facility] DISCUSSION DISCUSSION 2017 (90291) BONE DENSITY BONE DENSITY 2017 - [facility] 2017 (92974) PNEUMOVAX AGE 65 AND PNEUMOVAX AGE 65 AND 2017 - [facility] OVER WITH 5YR LOOKBACK OVER WITH 5YR LOOKBACK 2017 (4 1935) (#1) (#1) Appointment Appointment 04-01-2017 - [place] [facility] 04-01-2017 Care (34215) *GC/Chlamydia *GC/Chlamydia 04-01-2017 - [facility] 04-01-2017 Care (82112) Mammogram, Screening, Mammogram, Screening, 04-01-2017 - [facility] both breasts both breasts 04-01-2017 Care (92469) SHINGRIX VACCINE (1 of SHINGRIX VACCINE (1 of 2002 - [facility] 2) 2) 2002 (70202) COLORECTAL CANCER COLORECTAL CANCER 2002 - [facility] inic SCREENING,SEE MODIFIER SCREENING,SEE MODIFIER 2002 (4 6972) DIABETES SCREEN DIABETES SCREEN 1997 - [facility] 1997 (21889) LIPID SCREEN LIPID SCREEN 1997 - [facility] 1997 (92261) MAMMOGRAM MAMMOGRAM 1992 - [facility] 1992 (13801) DTAP,TDAP,TD (1 - Tdap) DTAP,TDAP,TD (1 - Tdap) 1971 - [facility] 1971 (48627) HEPATITIS C SCREENING HEPATITIS C SCREENING 1970 - [facility] 1970 (87699) PT ED PATIENT no information [facility] INFORMATION (14904) no information [facility] (01969) no information [facility] (02285) Payers Payer Name Policy Number Location [employer] MEDICARE [id number] [facility] (44 195) The following information is from the original human readable contentNo Payer Records Found Social History Type Social History Date Location Description Tobacco smoking status Never smoker 04-29-2020 - [facility] NHIS 04-29-2020 (05516) Tobacco use and Never used 04-29-2020 - [facility] exposure 04-29-2020 (49066) Sex Assigned At Not on file [facility] (85152) Exposure to SARS-CoV-2 Not sure [facility] (event) (05030) Sex Assigned At Female [facility] (55687) The following information is from the original human [employer] Mediaable contentNo Social History Records Found Advance Directives Documents on File Type Date 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 This clinical summary was aggregated from multiple sources. Caution should be exercised in using it in the provision of clinical care. This summary normalizes information from multiple sources, and as a consequence, information in this document may materially changethe coding, format and clinical context of patient data. In addition, data may be omittedin some cases. CLINICAL DECISIONS SHOULD BE BASED ON THE PRIMARY CLINICAL RECORDS. [facility] provides no warranty or guarantee of the accuracy or completeness of information in this document. UNRECOGNIZED CONTENT PROVIDED BELOW FOR UNRECOGNIZED SECTION Source Comments In the event this information is protected by the Federal Confidentiality of Alcohol and Drug Abuse Patient Records regulations: The Federal rules restrict any use of the information to criminally investigate or prosecute any alcohol or drug abuse patient.[facility] the event this information is protected by the Federal Confidentiality of Alcohol and Drug Abuse Patient Records regulations: The Federal rules restrict any use of the information to criminally investigate or prosecute any alcohol or drug abuse patient.[facility] the event this information is protected by the Federal Confidentiality of Alcohol and Drug Abuse Patient Records regulations: The Federal rules restrict any use of the information to criminally investigate or prosecute any alcohol or drug abuse patient.[facility] the event this information is protected by the Federal Confidentiality of Alcohol and Drug Abuse Patient Records regulations: The Federal rules restrict any use of the information to criminally investigate or prosecute any alcohol or drug abuse patient.[facility] the event this information is protected by the Federal Confidentiality of Alcohol and Drug Abuse Patient Records regulations: The Federal rules restrict any use of the information to criminally investigate or prosecute any alcohol or drug abuse patient.[facility] the event this information is protected by the Federal Confidentiality of Alcohol and Drug Abuse Patient Records regulations: The Federal rules restrict any use of the information to criminally investigate or prosecute any alcohol or drug abuse patient.[facility] UNRECOGNIZED CONTENT PROVIDED BELOW FOR UNRECOGNIZED SECTION Reason for Visit Reason Onset Date Comments 04-29-2020 Colon EGD 03/12/2020 Reason Comments Appointment original appointment time av ailable UNRECOGNIZED CONTENT PROVIDED BELOW FOR UNRECOGNIZED SECTION Miscellaneous Notes Telephone Encounter - Vahe Askew - 03/12/2020 4:33 PM [id number] Colon EGD Vahe Askew documented in this encounterTelephone Encounter - Jaja Santiago - 05/22/2020 7:48 AM EDTFYI: left a message for the patient to let her know that our system is back up and running, if she would like to keep her original appointment with me (this morning at 8:40). I have asked her to call if she is coming. Otherwise, I would see her on 05/30 where she was rescheduled to. Jaja Santiago RN BUS VAN DRIVER.RESIDENTIAL THERAPIST documented in this encounter UNRECOGNIZED CONTENT PROVIDED BELOW FOR UNRECOGNIZED SECTION INFORMATION SOURCE DATE CREATED AUTHOR AUTHOR'S ORGANIZATIO N 05/22/2020 [facility] Saravanan smith
== END ==
PROVIDERS: PCP Family Medicine; Referring Provider Nurse Practitioner Women's Health; Visit Provider Nurse Practitioner Women's Health
DX: R10.2 Pelvic and perineal pain (principal)
CPT/HCPCS: 76830; 76856

== ENCOUNTER → 2020-03-02 08:14 | Outpatient (CLI) | payer MEDICARE, SELFPAY ==
[2020-01-02 15:04] VITALS: BMI 36.2
[2020-03-02 09:07] LABS: Hemoglobin A1c 7.1 % (3.8-5.6)
[2020-03-02 09:09] LABS: AST(SGOT) 28 U/L (15-37); Alanine Aminotransfer ALT/SGPT 34 U/L (13-56); Albumin, Serum 3.8 g/dL (3.2-5.0); Alkaline Phosphatase 72 U/L (45-117); Anion Gap 10 (5-15); BUN 24 mg/dL (7-18); BUN/Creat Ratio 23.5 RATIO (10-20); Calcium,Total 8.9 mg/dL (8.5-10.1); Chloride 96 mmol/L (98-107); Cholesterol 232 mg/dL (200); Creatinine, Serum 1.02 mg/dL (0.55-1.02); EST Glomerular Filtration Rate 57 mL/min (>60); Est Glom Filt Rate - Afr Amer 69 mL/min (>60); Globulin 3.9 g/dL (2.2-4.2); Glucose 160 mg/dL (74-106); High Density Lipoprotein 32 mg/dL; Potassium 3.6 mmol/L (3.5-5.1); Protein, Total 7.7 g/dL (6.4-8.2); Sodium Level 132 mmol/L (136-145); Triglycerides 500 mg/dL
== END ==
PROVIDERS: PCP Family Medicine; Referring Provider Family Medicine; Visit Provider Family Medicine
DX: E11.65 Type 2 diabetes mellitus with hyperglycemia (principal); E78.5 Hyperlipidemia, unspecified; I10 Essential (primary) hypertension
CPT/HCPCS: 36415; 80053; 80061; 83036

== ENCOUNTER → 2020-05-27 12:49 | Outpatient (CLI) | payer MEDICARE, SELFPAY ==
[2020-05-27 09:52] VITALS: BMI 36.2
[2020-06-06 15:20] LABS: HPV APTIMA, High Risk POSITIVE
== END ==
PROVIDERS: PCP Family Medicine; Visit Provider Nurse Practitioner Women's Health
DX: R87.610 Atypical squamous cells of undetermined significance on cytologic smear of cervix (ASC-US) (principal); R87.810 Cervical high risk human papillomavirus (HPV) DNA test positive; Z12.4 Encounter for screening for malignant neoplasm of cervix
CPT/HCPCS: 87624; 88175; G0145

== ENCOUNTER → 2020-06-05 12:24 | Outpatient (CLI) | payer MEDICARE, SELFPAY ==
[2020-01-02 15:04] VITALS: BMI 36.2
[2020-05-27 09:52] VITALS: BMI 36.2
--- NOTE | 2020-06-05 12:25 | BI_ITS ---
MAMMOGRAPHY - BILATERAL SCREENING REASON FOR EXAM: Female, 69 years old. Routine annual screening examination. PERTINENT HISTORY: Non-contributory. History of prior bilateral excisional breast biopsies. TECHNIQUE: Digital bilateral breast mirian (3D mammographic acquisition) in the CC and MLO projections. 2-D mediolateral oblique (MLO) and craniocaudad (CC) views of both breasts were obtained. CAD: Full Field Digital Mammography with Computer Added Detection was performed. COMPARISON: Comparison is made with prior study dated 05/05/2019 and 04/25/2018. FINDINGS: Breast Composition: The breasts are almost entirely fatty. There are no dominant masses or suspicious calcifications. Stable 7.5 mm well-defined nodule in the central slightly lateral aspect of the right breast. This most likely represents a small lymph node. No other significant abnormalities are identified. There has been no significant change since the prior study. BI/SCREEN MAMM (CAD) W/MIRIAN BILAT IMPRESSION: Stable bilateral screening mammogram. Yearly follow-up mammogram recommended. (A) ASSESSMENT CATEGORY: BIRADS Category 2: Benign. A letter regarding these results will be sent to the patient by the facility within 30 days. Approximately 10% of breast cancers are not detected by mammography. A normal mammogram should not delay biopsy of a clinically suspicious abnormality. [id number] Electronically Signed: Geoffrey Al, at 14:23 EDT , Service support ,
== END ==
PROVIDERS: PCP Family Medicine; Referring Provider Obstetrics & Gynecology; Visit Provider Obstetrics & Gynecology
DX: Z12.31 Encounter for screening mammogram for malignant neoplasm of breast (principal)
CPT/HCPCS: 77063; 77067

== ENCOUNTER → 2020-07-06 07:19 | Outpatient (CLI) | payer MEDICARE, SELFPAY ==
[2020-07-03 10:33] VITALS: BMI 36.6
--- NOTE | 2020-07-06 07:20 | MRI_ITS ---
STUDY: MRI LUMBAR SPINE WITHOUT CONTRAST REASON FOR EXAM: Female, 69 years old. low back pain, bilat leg pain TECHNIQUE: Standardized fat and water weighted pulse sequences were obtained in the sagittal and axial planes. COMPARISON: None FINDINGS: T12-L1: Normal endplates. Normal disc height, hydration and morphology. Normal bilateral facet joints. Normal central canal and bilateral lateral recesses. Normal bilateral intervertebral neural foramina. Normal lumbar lordosis. There is no substantial scoliosis. Normal conus medullaris that terminates at the L1-2: Normal endplates. Normal disc height, hydration and morphology. Normal bilateral facet joints. Normal central canal and bilateral lateral recesses. Normal bilateral intervertebral neural foramina. L2-3: Normal endplates. Normal disc height, hydration and morphology. Normal bilateral facet joints. Normal central canal and bilateral lateral recesses. Normal bilateral intervertebral neural foramina. L3-4: Preserved disc space is present with mild broad-based disc bulge and facet arthropathy resulting in mild spinal canal narrowing. No significant foraminal narrowing is evident. L4-5: Bilateral facet arthropathy with minimal anterolisthesis of L4 and L5 present partially uncovering the disc space with compounding ligamentum flavum hypertrophy resulting in moderate spinal canal narrowing and lateral recess narrowing at this level. L5-S1: Disc desiccation with left paracentral disc bulge and facet arthropathy resulting in moderate to severe lateral recess narrowing and severe spinal canal narrowing due to predominantly epidural lipomatosis and associated left severe foraminal narrowing. Normal visualized sacral ala. Normal visualized paraspinous soft tissue structures. MRI/Spine Lumbar (Routine) IMPRESSION: 1. Severe left L5/S1 foraminal narrowing with associated facet arthropathy and left paracentral disc bulge and compounding epidural lipomatosis resulting in severe left lateral recess and spinal canal narrowing, clinically correlate for descending S1 and exiting L5 left radiculopathy. 2. Additional degenerative changes as described above. Electronically Signed: Chas Montemayor DO at 10:09 EST , Service support ,
== END ==
PROVIDERS: PCP Family Medicine; Referring Provider Orthopaedic Surgery; Visit Provider Orthopaedic Surgery
DX: M54.5 Low back pain (principal); M79.605 Pain in left leg
CPT/HCPCS: 72148

== ENCOUNTER → 2020-07-20 07:04 | Outpatient (CLI) | payer MEDICARE, SELFPAY ==
[2020-07-03 10:33] VITALS: BMI 36.6
[2020-07-20 07:48] LABS: Absolute Lymphocyte Count 4.11 X10^3/uL (0.83-4.51); Absolute Neutrophil Count 5.6 X10^3/uL (2.0-7.7); Basophil# 0.05 X10^3/uL; Basophil% 0.5 % (0-1); Eosinophil# 0.17 X10^3/uL; Eosinophils% 1.6 % (0-5); Hematocrit 39.8 % (37-47); Hemoglobin 13.2 g/dL (12.0-15.0); Lymphocyte # 4.11 X10^3/ul (4.0); Lymphocyte % 38.2 % (19-41); Mean Corp Hgb Conc 33.2 g/dL (32-36); Mean Corpuscular Hgb 29.3 pg (27.0-32.0); Mean Corpuscular Volume 88.4 fL (81-99); Mean Platelet Vol. 9.6 fl (6.2-12.0); Monocyte# 0.83 X10^3/uL; Monocyte% 7.7 % (0-10); NRBC Flagged by Analyzer 0 % (0-5); Neutrophil # 5.57 X10^3/uL (2.7-7.7); Neutrophil % 51.6 % (47-70); Platelet Count 315 K/mm3 (150-450); RBC Distribution Width CV 13.5 % (11.6-14.6); RBC Distribution Width SD 43.5 fl (35.1-43.9); White Blood Count 10.8 K/mm3 (4.4-11.0)
[2020-07-20 08:17] LABS: ALB/GLOB Ratio 0.9 RATIO (0.9-2.4); AST(SGOT) 24 U/L (15-37); Alanine Aminotransfer ALT/SGPT 30 U/L (13-56); Albumin, Serum 3.6 g/dL (3.2-5.0); Alkaline Phosphatase 75 U/L (45-117); Anion Gap 9 (5-15); BUN 21 mg/dL (7-18); BUN/Creat Ratio 22.4 RATIO (10-20); Calcium,Total 9.3 mg/dL (8.5-10.1); Chloride 95 mmol/L (98-107); Cholesterol 194 mg/dL (200); Creatinine, Serum 0.94 mg/dL (0.55-1.02); EST Glomerular Filtration Rate 63 mL/min (>60); Est Glom Filt Rate - Afr Amer 77 mL/min (>60); Glucose 168 mg/dL (74-106); High Density Lipoprotein 35 mg/dL; Potassium 3.4 mmol/L (3.5-5.1); Protein, Total 7.6 g/dL (6.4-8.2); Sodium Level 133 mmol/L (136-145); Triglycerides 487 mg/dL
[2020-07-20 09:24] LABS: Hemoglobin A1c 7.3 % (3.8-5.6)
== END ==
PROVIDERS: PCP Family Medicine; Referring Provider Family Medicine; Visit Provider Family Medicine
DX: Z00.00 Encounter for general adult medical examination without abnormal findings (principal); E11.65 Type 2 diabetes mellitus with hyperglycemia; E78.5 Hyperlipidemia, unspecified; I10 Essential (primary) hypertension
CPT/HCPCS: 36415; 80053; 80061; 83036; 85025

== ENCOUNTER → 2020-11-26 13:51 | Outpatient (CLI) | payer MEDICARE, SELFPAY ==
[2020-10-17 10:32] VITALS: BMI 36.6
[2020-11-26 14:32] LABS: Amphetamine Urine VISTA NEGATIVE (<1000 ng/mL); Barbiturate Urine VISTA NEGATIVE (< 200 ng/mL); Benzodiazepine Urine VISTA NEGATIVE (< 200 ng/mL); Cocaine Urine VISTA NEGATIVE (< 300 ng/mL); Ecstacy Urine VISTA NEGATIVE (< 500 ng/mL); Methadone Urine VISTA NEGATIVE (< 300 ng/mL); PCP Urine VISTA NEGATIVE (< 25 ng/mL); THC Urine VISTA NEGATIVE (< 50 ng/mL); Vista UDS pH Range 7
== END ==
PROVIDERS: PCP Family Medicine; Referring Provider Anesthesiology Pain Medicine; Visit Provider Anesthesiology Pain Medicine
DX: F11.20 Opioid dependence, uncomplicated (principal)
CPT/HCPCS: 80307

== ENCOUNTER → 2021-03-18 14:52 | Outpatient (CLI) | payer MEDICARE, SELFPAY ==
[2020-10-17 10:32] VITALS: BMI 36.6
--- NOTE | 2021-03-18 14:55 | RAD_ITS ---
STUDY: X-RAY - CERVICAL SPINE REASON FOR EXAM: Female, 70 years old. NECK PAIN TECHNIQUE: 3 view(s) of the cervical spine were obtained. COMPARISON: None FINDINGS: No acute fracture, dislocation or osseous destruction. Cervical straightening. No significant scoliosis. No spondylolisthesis. Atlantoaxial articulation intact. Odontoid intact. Lateral masses well aligned. Mid cervical spine facet arthrosis. Minimal disc height loss. Mild endplate spondylosis. No significant soft tissue swelling. Normal lung apices. RAD/Cerv Spine 2 or 3 Views IMPRESSION: Cervical spine acutely intact Cervical straightening with degenerative features Electronically Signed: Abraham Barlow DO at 9:43 EDT Tel , Service support ,
== END ==
PROVIDERS: PCP Family Medicine; Referring Provider Anesthesiology Pain Medicine; Visit Provider Anesthesiology Pain Medicine
DX: M54.2 Cervicalgia (principal)
CPT/HCPCS: 72040

== ENCOUNTER → 2021-05-28 16:20 | Outpatient (CLI) | payer MEDICARE, SELFPAY ==
[2021-06-03 17:02] LABS: HPV Reflexed? NOT INDICATED
== END ==
PROVIDERS: PCP Family Medicine; Referring Provider Nurse Practitioner Women's Health; Visit Provider Nurse Practitioner Women's Health
DX: R87.610 Atypical squamous cells of undetermined significance on cytologic smear of cervix (ASC-US) (principal); R87.810 Cervical high risk human papillomavirus (HPV) DNA test positive
CPT/HCPCS: 88175; G0145

== ENCOUNTER → 2021-06-09 09:55 | Outpatient (CLI) | payer MEDICARE, SELFPAY ==
[2020-10-17 10:32] VITALS: BMI 36.6
--- NOTE | 2021-06-09 09:58 | BI_ITS ---
MAMMOGRAPHY - BILATERAL SCREENING REASON FOR EXAM: Female, 70 years old. Routine annual screening examination. PERTINENT HISTORY: Non-contributory. Remote bilateral excisional breast biopsy. TECHNIQUE: Digital bilateral breast mirian (3D mammographic acquisition) in the CC and MLO projections. 2-D mediolateral oblique (MLO) and craniocaudad (CC) views of both breasts were obtained. CAD: Full Field Digital Mammography with Computer Added Detection was performed. COMPARISON: Comparison is made with prior study dated 06/05/2020 and 05/05/2019. FINDINGS: Breast Composition: The breasts are almost entirely fatty. There are no dominant masses or suspicious calcifications. Stable 7.5 mm well-defined nodule in the central slightly lateral aspect of the right breast. This most likely represents a small lymph node. Stable benign-appearing bilateral axillary lymph nodes. No other significant abnormalities are identified. There has been no significant change since the prior study. BI/SCRN MAMM (CAD)W/MIRIAN BILAT IMPRESSION: Stable bilateral screening mammogram. Yearly follow-up mammogram recommended. (A) ASSESSMENT CATEGORY: BIRADS Category 2: Benign. A letter regarding these results will be sent to the patient by the facility within 30 days. Approximately 10% of breast cancers are not detected by mammography. A normal mammogram should not delay biopsy of a clinically suspicious abnormality. [id number] Electronically Signed: Geoffrey Al MD at 12:53 EDT , Service support ,
== END ==
PROVIDERS: PCP Family Medicine; Referring Provider Obstetrics & Gynecology; Visit Provider Obstetrics & Gynecology
DX: Z12.31 Encounter for screening mammogram for malignant neoplasm of breast (principal)
CPT/HCPCS: 77063; 77067

== ENCOUNTER → 2021-06-11 08:54 | Outpatient (CLI) | payer MEDICARE, SELFPAY ==
[2021-06-11 11:12] LABS: Hemoglobin A1c 6.8 % (3.8-5.6)
[2021-06-11 11:28] LABS: ALB/GLOB Ratio 0.9 RATIO (0.9-2.4); AST(SGOT) 20 U/L (15-37); Alanine Aminotransfer ALT/SGPT 24 U/L (13-56); Albumin, Serum 3.8 g/dL (3.2-5.0); Alkaline Phosphatase 68 U/L (45-117); Anion Gap 8 (5-15); BUN 20 mg/dL (7-18); BUN/Creat Ratio 21.3 RATIO (10-20); Calcium,Total 9.7 mg/dL (8.5-10.1); Chloride 97 mmol/L (98-107); Cholesterol 170 mg/dL (200); Creatinine, Serum 0.94 mg/dL (0.55-1.02); EST Glomerular Filtration Rate 63 mL/min (>60); Est Glom Filt Rate - Afr Amer 76 mL/min (>60); Globulin 4.1 g/dL (2.2-4.2); Glucose 164 mg/dL (74-106); High Density Lipoprotein 36 mg/dL; Potassium 3.7 mmol/L (3.5-5.1); Protein, Total 7.9 g/dL (6.4-8.2); Sodium Level 136 mmol/L (136-145); Triglycerides 275 mg/dL; Very Low Density Lipoprotein 55 mg/dL (5-40)
== END ==
PROVIDERS: PCP Family Medicine; Referring Provider Family Medicine; Visit Provider Family Medicine
DX: E11.65 Type 2 diabetes mellitus with hyperglycemia (principal); I10 Essential (primary) hypertension; N39.0 Urinary tract infection, site not specified; R35.0 Frequency of micturition; E78.5 Hyperlipidemia, unspecified
CPT/HCPCS: 36415; 80053; 80061; 83036; 87086; 87088; 87186

== ENCOUNTER → 2021-06-20 12:22 | Outpatient (CLI) | payer MEDICARE, SELFPAY | PROVIDERS: PCP Family Medicine; Visit Provider Obstetrics & Gynecology | DX: N39.0 Urinary tract infection, site not specified (principal) | CPT/HCPCS: 87086 ==

== ENCOUNTER → 2021-07-03 12:11 | Outpatient (CLI) | payer MEDICARE, SELFPAY ==
--- NOTE | 2021-07-03 12:12 | US_ITS ---
STUDY: ULTRASOUND OF THE FEMALE PELVIS - COMPLETE REASON FOR EXAM: Female, 70 years old. Pelvic pressure LMP: Patient is postmenopausal. TECHNIQUE: Transabdominal and Transvaginal TECHNICAL QUALITY: Adequate. COMPARISON: None. FINDINGS: The uterus is anteverted and is in a midline position. The uterus measures 5.2 cm x 2.6 cm x 1.6 cm. Normal uterine cervix. The endometrium measures 2 mm in thickness, and is hyperechoic. There is no demonstrated endometrial mass. There is a 1.1 cm x 1.2 cm x 0.5 cm fibroid in the uterine cervix. I.U.D. - The patient does not have an I.U.D. The right ovary is non-visualized. The patient is status post left nephrectomy. There is no fluid in the cul-de-sac. The pre void volume of the bladder was 175 ml. US/Transvaginal Non- IMPRESSION: 1.1 cm x 1.2 cm x 0.5 cm fibroid in the uterine cervix. Electronically Signed: Geoffrey Al MD at 15:33 EST , Service support ,
--- NOTE | 2021-07-03 12:12 | US_ITS ---
STUDY: ULTRASOUND OF THE FEMALE PELVIS - COMPLETE REASON FOR EXAM: Female, 70 years old. Pelvic pressure LMP: Patient is postmenopausal. TECHNIQUE: Transabdominal and Transvaginal TECHNICAL QUALITY: Adequate. COMPARISON: None. FINDINGS: The uterus is anteverted and is in a midline position. The uterus measures 5.2 cm x 2.6 cm x 1.6 cm. Normal uterine cervix. The endometrium measures 2 mm in thickness, and is hyperechoic. There is no demonstrated endometrial mass. There is a 1.1 cm x 1.2 cm x 0.5 cm fibroid in the uterine cervix. I.U.D. - The patient does not have an I.U.D. The right ovary is non-visualized. The patient is status post left nephrectomy. There is no fluid in the cul-de-sac. The pre void volume of the bladder was 175 ml. US/Pelvic (Non ) IMPRESSION: 1.1 cm x 1.2 cm x 0.5 cm fibroid in the uterine cervix. Electronically Signed: Geoffrey Al MD at 15:33 EST , Service support ,
== END ==
PROVIDERS: PCP Family Medicine; Referring Provider Obstetrics & Gynecology; Visit Provider Obstetrics & Gynecology
DX: R10.2 Pelvic and perineal pain (principal)
CPT/HCPCS: 76830; 76856

== ENCOUNTER 2021-09-26 14:01 | Outpatient (CLI) | payer MEDICARE, SELFPAY ==
--- NOTE | 2021-09-26 14:06 | US_ITS ---
STUDY: RENAL ULTRASOUND - COMPLETE REASON FOR EXAM: Female, 71 years old. Flank pain and fever TECHNIQUE: Ultrasound evaluation of the kidneys was performed with real-time and static fairchild-scale imaging. COMPARISON: None. FINDINGS: RIGHT KIDNEY: Normal location of the right kidney, which is normal in size. The right kidney measures 9.5 x 5.4 x 4.4 cm. There is a normal cortex of the right kidney. The renal cortex measures 1.0 cm. There is no right renal mass or cyst. There are no right renal calculi. There is no right hydronephrosis. DISTAL RIGHT URETER: There is non-visualization of the distal right ureter. There is no demonstrated right ureterovesical junction calculus. There is a visualized right ureteral jet. LEFT KIDNEY: Normal location of the left kidney, which is normal in size. The left kidney measures 12.7 x 5.5 x 5.4 cm. There is a normal cortex of the left kidney. The renal cortex measures 1.7 cm. There is no left renal mass or cyst. There are no left renal calculi. There is no left hydronephrosis. DISTAL LEFT URETER: There is non-visualization of the distal left ureter. There is no demonstrated left ureterovesical junction calculus. There is a visualized left ureteral jet. AORTA: There is no elongation or tortuosity of the abdominal aorta. I.V.C.: The IVC is patent. BLADDER: The bladder is incompletely distended US/Kidney and Bladder IMPRESSION: No suspicious sonographic findings Electronically Signed: Buck Joseph MD at 15:21 EST ,
== END 2021-09-26 23:59 | disposition home or self-care (01) ==
PROVIDERS: PCP Family Medicine; Referring Provider Urology; Visit Provider Urology
DX: R35.0 Frequency of micturition (principal); N39.0 Urinary tract infection, site not specified; Z87.442 Personal history of urinary calculi
CPT/HCPCS: 76770

== ENCOUNTER 2021-10-28 12:16 | Outpatient (CLI) | payer MEDICARE, SELFPAY ==
[2021-10-28 13:25] LABS: BUP Internal Control LINE = VALID (VALID); Buprenorphine Drug Screen Negative (<10 ng/mL)
[2021-10-28 13:35] LABS: Amphetamine Urine VISTA NEGATIVE (<1000 ng/mL); Barbiturate Urine VISTA NEGATIVE (< 200 ng/mL); Benzodiazepine Urine VISTA NEGATIVE (< 200 ng/mL); Cocaine Urine VISTA NEGATIVE (< 300 ng/mL); Ecstacy Urine VISTA NEGATIVE (< 500 ng/mL); Methadone Urine VISTA NEGATIVE (< 300 ng/mL); PCP Urine VISTA NEGATIVE (< 25 ng/mL); THC Urine VISTA NEGATIVE (< 50 ng/mL); Vista UDS pH Range 6
== END 2021-10-28 23:59 | disposition home or self-care (01) ==
LOC: LAB 12:18
PROVIDERS: PCP Family Medicine; Referring Provider Anesthesiology Pain Medicine; Visit Provider Anesthesiology Pain Medicine
DX: F11.20 Opioid dependence, uncomplicated (principal)
CPT/HCPCS: 80307

== ENCOUNTER → 2021-12-17 | Outpatient (CLI) | payer MEDICARE, SELFPAY ==
[2021-12-17 08:12] LABS: Absolute Lymphocyte Count 4.03 X10^3/uL (0.83-4.51); Absolute Neutrophil Count 6.4 X10^3/uL (2.0-7.7); Basophil# 0.04 X10^3/uL; Basophil% 0.3 % (0-1); Eosinophil# 0.12 X10^3/uL; Hematocrit 40.2 % (37-47); Hemoglobin 13.1 g/dL (12.0-15.0); Lymphocyte # 4.03 X10^3/ul (0.83-4.51); Mean Corp Hgb Conc 32.6 g/dL (32-36); Mean Corpuscular Hgb 28.9 pg (27.0-32.0); Mean Corpuscular Volume 88.7 fL (81-99); Mean Platelet Vol. 9.7 fl (6.2-12.0); Monocyte# 0.83 X10^3/uL; Monocyte% 7.2 % (0-10); NRBC Flagged by Analyzer 0 % (0-5); Neutrophil # 6.42 X10^3/uL (2.7-7.7); POSITIVE MORPHOLOGY YES; Platelet Count 328 K/mm3 (150-450); RBC Distribution Width CV 13.5 % (11.6-14.6); RBC Distribution Width SD 43.8 fl (35.1-43.9); Red Blood Count 4.53 M/mm3 (4.2-5.4); White Blood Count 11.5 K/mm3 (4.4-11.0)
[2021-12-17 08:16] LABS: Differential Indicated SCAN CRITERIA MET
[2021-12-17 08:47] LABS: ALB/GLOB Ratio 0.9 RATIO (0.9-2.4); AST(SGOT) 16 U/L (15-37); Alanine Aminotransfer ALT/SGPT 21 U/L (13-56); Albumin, Serum 3.6 g/dL (3.2-5.0); Alkaline Phosphatase 69 U/L (45-117); Anion Gap 8 (5-15); BUN 27 mg/dL (7-18); BUN/Creat Ratio 30.1 RATIO (10-20); Chloride 96 mmol/L (98-107); Cholesterol 204 mg/dL (200); EST Glomerular Filtration Rate 66 mL/min (>60); Est Glom Filt Rate - Afr Amer 80 mL/min (>60); Glucose 156 mg/dL (74-106); High Density Lipoprotein 38 mg/dL; Potassium 3.6 mmol/L (3.5-5.1); Protein, Total 7.6 g/dL (6.4-8.2); Sodium Level 135 mmol/L (136-145); Triglycerides 250 mg/dL; Very Low Density Lipoprotein 50 mg/dL (5-40)
[2021-12-17 09:05] LABS: Hemoglobin A1c 6.9 % (3.8-5.6)
== END | disposition home or self-care (01) ==
LOC: LAB 07:35
PROVIDERS: PCP Family Medicine; Visit Provider Family Medicine
DX: Z00.00 Encounter for general adult medical examination without abnormal findings (principal); E11.65 Type 2 diabetes mellitus with hyperglycemia; E78.5 Hyperlipidemia, unspecified; I10 Essential (primary) hypertension
CPT/HCPCS: 36415; 80053; 80061; 83036; 85025

== ENCOUNTER → 2022-01-20 | Outpatient (CLI) | payer MEDICARE, SELFPAY ==
[2022-01-20 11:18] LABS: Amphetamine Urine VISTA NEGATIVE (<1000 ng/mL); Barbiturate Urine VISTA NEGATIVE (< 200 ng/mL); Benzodiazepine Urine VISTA NEGATIVE (< 200 ng/mL); Cocaine Urine VISTA NEGATIVE (< 300 ng/mL); Ecstacy Urine VISTA NEGATIVE (< 500 ng/mL); Methadone Urine VISTA NEGATIVE (< 300 ng/mL); PCP Urine VISTA NEGATIVE (< 25 ng/mL); THC Urine VISTA NEGATIVE (< 50 ng/mL); Vista UDS pH Range 7
== END | disposition home or self-care (01) ==
PROVIDERS: PCP Family Medicine; Referring Provider Anesthesiology Pain Medicine; Visit Provider Anesthesiology Pain Medicine
DX: F11.20 Opioid dependence, uncomplicated (principal)
CPT/HCPCS: 80307

== ENCOUNTER → 2022-06-10 | Outpatient (CLI) | payer MEDICARE, SELFPAY ==
--- NOTE | 2022-06-10 09:10 | BI_ITS ---
MAMMOGRAPHY - BILATERAL SCREENING REASON FOR EXAM: Female, 71 years old. Routine annual screening examination. PERTINENT HISTORY: Non-contributory. History of prior bilateral excisional breast biopsies. TECHNIQUE: Digital bilateral breast mirian (3D mammographic acquisition) in the CC and MLO projections. 2-D mediolateral oblique (MLO) and craniocaudad (CC) views of both breasts were obtained. CAD: Full Field Digital Mammography with Computer Added Detection was performed. COMPARISON: Comparison is made with prior study dated 06/09/2021 and 06/05/2020. FINDINGS: Breast Composition: The breasts are almost entirely fatty. There are no dominant masses or suspicious calcifications. Stable 7 mm well-defined nodule in the central slightly lateral aspect of the this most likely represents a small lymph node. No other significant abnormalities are identified. There has been no significant change since the prior study. BI/SCRN MAMM (CAD)W/MIRIAN BILAT IMPRESSION: Stable bilateral screening mammogram. Yearly follow-up mammogram recommended. (A) ASSESSMENT CATEGORY: BIRADS Category 2: Benign. A letter regarding these results will be sent to the patient by the facility within 30 days. Approximately 10% of breast cancers are not detected by mammography. A normal mammogram should not delay biopsy of a clinically suspicious abnormality. [id number] Electronically Signed: Geoffrey Al MD at 10:26 EDT ,
== END | disposition home or self-care (01) ==
LOC: OPBI 09:09
PROVIDERS: PCP Family Medicine; Visit Provider Nurse Practitioner Women's Health
DX: Z12.31 Encounter for screening mammogram for malignant neoplasm of breast (principal)
CPT/HCPCS: 77063; 77067

== ENCOUNTER → 2022-07-24 | Outpatient (CLI) | payer MEDICARE, SELFPAY ==
[2022-07-24 08:52] LABS: ALB/GLOB Ratio 0.9 RATIO (0.9-2.4); AST(SGOT) 13 U/L (15-37); Alanine Aminotransfer ALT/SGPT 21 U/L (13-56); Albumin, Serum 3.5 g/dL (3.2-5.0); Alkaline Phosphatase 74 U/L (45-117); Anion Gap 6 (5-15); BUN 26 mg/dL (7-18); BUN/Creat Ratio 26.2 RATIO (10-20); Calcium,Total 9.3 mg/dL (8.5-10.1); Chloride 95 mmol/L (98-107); Cholesterol 221 mg/dL (200); Creatinine, Serum 0.99 mg/dL (0.55-1.02); EST Glomerular Filtration Rate 59 mL/min (>60); Est Glom Filt Rate - Afr Amer 71 mL/min (>60); Globulin 4.1 g/dL (2.2-4.2); Glucose 142 mg/dL (74-106); High Density Lipoprotein 44 mg/dL; Potassium 3.5 mmol/L (3.5-5.1); Protein, Total 7.6 g/dL (6.4-8.2); Sodium Level 135 mmol/L (136-145); Triglycerides 212 mg/dL; Very Low Density Lipoprotein 42 mg/dL (5-40)
[2022-07-24 08:59] LABS: Hemoglobin A1c 7.2 % (3.8-5.6)
== END | disposition home or self-care (01) ==
LOC: LAB 07:04
PROVIDERS: PCP Family Medicine; Visit Provider Family Medicine
DX: E11.65 Type 2 diabetes mellitus with hyperglycemia (principal); E78.5 Hyperlipidemia, unspecified; I10 Essential (primary) hypertension
CPT/HCPCS: 36415; 80053; 80061; 83036

== ENCOUNTER → 2022-09-08 | Outpatient (CLI) | payer MEDICARE, SELFPAY ==
[2022-09-14 17:02] LABS: HPV APTIMA, High Risk Positive (Negative)
== END | disposition home or self-care (01) ==
LOC: LABSPEC 13:25
PROVIDERS: PCP Family Medicine; Visit Provider Nurse Practitioner Women's Health
DX: Z12.4 Encounter for screening for malignant neoplasm of cervix (principal); R87.619 Unspecified abnormal cytological findings in specimens from cervix uteri
CPT/HCPCS: 87624; 88175; G0145

== ENCOUNTER → 2022-10-01 | Outpatient (CLI) | payer MEDICARE, SELFPAY ==
--- NOTE | 2022-10-01 14:46 | RAD_ITS ---
STUDY: X-RAY - LEFT SHOULDER REASON FOR EXAM: Female, 72 years old. Left shoulder pain. TECHNIQUE: 4 view(s) of the shoulder. COMPARISON: None. FINDINGS: Osteopenia. Mild arthrosis of the glenohumeral joint. Moderate arthrosis of the AC joint. Normal acromion. Normal humeral head and visualized proximal humerus. The soft tissue structures are unremarkable. Normal visualized pulmonary apex. RAD/Shoulder min 2 Views IMPRESSION: Osteopenia with mild arthrosis of the glenohumeral joint and moderate arthrosis at the AC joint. No acute abnormality or erosive changes. Electronically Signed: Galen Layton, at 10:15 EST ,
== END | disposition home or self-care (01) ==
LOC: RAD 14:40
PROVIDERS: PCP Family Medicine; Referring Provider Anesthesiology Pain Medicine; Visit Provider Anesthesiology Pain Medicine
DX: M25.512 Pain in left shoulder (principal)
CPT/HCPCS: 73030

== ENCOUNTER 2022-10-08 01:58 | Emergency (ER) | payer MEDICARE, SELFPAY ==
[2022-10-08 01:59] VITALS: PULSE 91; RESP 17; RESP 27; TEMP 36.6; O2SAT 98; O2SAT 99; BMI 38.2
--- NOTE | 2022-10-08 02:06 | EKG12_ITS ---
Test Reason : CP Blood Pressure : / mmHG Vent. Rate : 092 BPM Atrial Rate : 092 BPM P-R Int : 144 ms QRS Dur : 084 ms QT Int : 362 ms P-R-T Axes : 024 -03 082 degrees QTc Int : 447 ms Sinus rhythm with Premature atrial complexes with Aberrant conduction Nonspecific ST and T wave abnormality Abnormal ECG Confirmed by BRENTON CHANEY, DAYANNA ([id number]), order editor KAELA VAZ ([id number]) on 10/09/2022 12:40:42 PM Referred By: BRIANA Confirmed By:DAYANNA FARRIS MD
--- NOTE | 2022-10-08 02:06 | RAD_ITS ---
STUDY: X-RAY CHEST REASON FOR EXAM: Female, 72 years old. chest pain TECHNIQUE: Single AP portable view of the chest. COMPARISON: May 23, 2019. FINDINGS: No focal infiltrates or effusions. No pneumothorax. Normal size heart. Normal mediastinum and alonso. Normal visualized pulmonary arteries. Atherosclerotic calcification of the aortic arch. Normal visualized thoracic spine. Normal visualized ribs, clavicles, and shoulders. There is no demonstrated abnormality of the visualized soft tissue structures of the upper abdomen. RAD/Chest 1 View (Portable) IMPRESSION: No acute cardiopulmonary disease. Electronically Signed: Mendez Whitehead MD at 2:43 EST Reading Location ID and State: [id number] / , Service support ,
[2022-10-08 02:18] LABS: Absolute Lymphocyte Count 7.08 X10^3/uL (0.83-4.51); Absolute Neutrophil Count 5.1 X10^3/uL (2.0-7.7); Basophil# 0.04 X10^3/uL; Basophil% 0.3 % (0-1); Differential Indicated SCAN CRITERIA MET; Eosinophil# 0.25 X10^3/uL; Eosinophils% 1.8 % (0-5); Hematocrit 41.2 % (37-47); Hemoglobin 13.2 g/dL (12.0-15.0); Lymphocyte # 7.08 X10^3/ul (0.83-4.51); Lymphocyte % 52.2 % (19-41); Mean Corpuscular Volume 87.3 fL (81-99); Mean Platelet Vol. 9.7 fl (6.2-12.0); Monocyte% 7.4 % (0-10); NRBC Flagged by Analyzer 0 % (0-5); Neutrophil # 5.14 X10^3/uL (2.7-7.7); Neutrophil % 37.9 % (47-70); POSITIVE DIFFERENTIAL YES; POSITIVE MORPHOLOGY YES; Platelet Count 377 K/mm3 (150-450); RBC Distribution Width CV 13.8 % (11.6-14.6); RBC Distribution Width SD 44.5 fl (35.1-43.9); Red Blood Count 4.72 M/mm3 (4.2-5.4); White Blood Count 13.6 K/mm3 (4.4-11.0)
[2022-10-08 02:38] LABS: Anion Gap 12 (5-15); BUN 17 mg/dL (7-18); BUN/Creat Ratio 18.1 RATIO (10-20); Calcium,Total 9.3 mg/dL (8.5-10.1); Chloride 95 mmol/L (98-107); Creatinine, Serum 0.94 mg/dL (0.55-1.02); EST Glomerular Filtration Rate 63 mL/min (>60); Est Glom Filt Rate - Afr Amer 76 mL/min (>60); Estimated Creatinine Clearance 46.07 ml/min; Glucose 157 mg/dL (74-106); Potassium 3.4 mmol/L (3.5-5.1); Sodium Level 135 mmol/L (136-145); Troponin-I HS 12 pg/mL (3.0-54.0)
[2022-10-08 02:39] LABS: Atypical Lymphocyte RARE %; Differential Comment SCANNED
[2022-10-08] MEDS: LORazepam 2 MG/ML Syringe 1 MG IV (02:39)
[2022-10-08] MEDS: Labetalol (Prefilled) 20 MG/4 ML IV (02:40)
[2022-10-08 02:45] VITALS: BP 170/75
[2022-10-08 02:55] VITALS: BP 152/65
[2022-10-08 02:57] LABS: Magnesium 1.1 mg/dL (1.6-2.6); Thyroid Stim Hormone (TSH) 2.08 uIU/mL (0.358-3.74)
[2022-10-08] MEDS: Potassium Chloride Oral Tablet 20 MEQ 40 MEQ PO (03:08)
[2022-10-08] MEDS: Aspirin 325 MG Tablet PO (03:08)
[2022-10-08 04:08] VITALS: BP 160/60; PULSE 75; RESP 18
[2022-10-08 04:32] LABS: Troponin-I HS 20 pg/mL (3.0-54.0)
--- NOTE | 2022-10-08 04:57 | ED.RN ---
MD OBSERVED PT MOVING LEGS AND C/O KINZA RESTLESS LEGS,FEELS THAT IT IS WORSE WITH THE MAGNESIUM INFUSION. MD INSTRUCTED TO DISCONTINUE MAG BOULUS. MARISOL PRATER.
--- NOTE | 2022-10-08 05:28 | EX.ED.DYSGE1 ---
HPI History of Present Illness Chief Complaint: Chest Pain Narrative Narrative: Patient is a 72-year-old female with past medical history of hypertension and hyperlipidemia and type 2 diabetes. She states that she has severe osteoarthritis and does not sleep well. She states this evening she was up-and-down and then noticed some midsternal chest discomfort. She states that there was mild shortness of breath associated with this but no nausea vomiting or diaphoresis. She states that the pain occurred around 2 AM and with concern this could be cardiac she presented to the hospital by approximately 230. She also reports that upon arrival she has been having spontaneous improvement of symptoms. Patient also makes note that she has been having left arm pain for approximately 1 to 2 weeks with no excessive activity or trauma. She states she was already evaluated her family doctor secondary to this and states that the pain in the left arm with this morning's chest discomfort is the same as it has been [facility] Medical History Arthritis Asthma Carotid stenosis Diabetes Gastrointestinal problem H/o difficulty anesthesia Hiatal hernia High triglycerides Hyperlipidemia Hypertension Mass of both breasts on mammogram Stomach inflammation Home Medications budesonide-formoterol HFA 160 mcg-4.5 mcg/actuation aerosol inhaler 2 puff inhalation BID PRN Asthma 05/21/16 [History Last Taken 05/21/16] calcium carbonate 600 mg calcium (1,500 mg) tablet 600 mg PO DAILY 05/21/16 [History Last Taken 05/21/16] lisinopril 20 mg-hydrochlorothiazide 12.5 mg tablet 1 tab PO BID 05/21/16 [History Last Taken 05/21/16] montelukast 10 mg tablet 10 mg PO DAILY 05/21/16 [History Last Taken 05/21/16] simvastatin 20 mg tablet 40 mg PO DAILY 05/21/16 [History Last Taken 05/21/16] cetirizine 10 mg capsule (Zyrtec) 10 mg PO DAILY 05/18/18 [History Last Taken Unknown] multivitamin,ve-rjbs-zhlrahzm (Complete Multivitamin tablet) 1 tab PO DAILY 05/18/18 [History Last Taken Unknown] omeprazole 40 mg capsule,delayed release 40 mg PO DAILY 05/18/18 [History Last Taken Unknown] Al hyd-Mg tr-alg ac-sod bicarb 80 mg-14.2 mg chewable tablet (Gaviscon) tab PO 05/22/19 [History Last Taken Unknown] ascorbic acid (vitamin C) 500 mg tablet 500 mg PO DAILY 05/22/19 [History Last Taken Unknown] coenzyme Q10 75 mg capsule (Ultra CoQ10) 75 mg PO DAILY 05/22/19 [History Last Taken Unknown] glimepiride 4 mg tablet 4 mg PO QAM 05/22/19 [History Last Taken Unknown] metformin 1,000 mg 24 hr tablet,extended release 1,000 mg PO BID 05/22/19 [History Last Taken Unknown] pioglitazone 30 mg tablet (Actos) 30 mg PO DAILY 05/22/19 [History Last Taken Unknown] tramadol 50 mg tablet 50 mg PO BID 05/27/20 [History Last Taken Unknown] phenazopyridine 100 mg tablet (Pyridium) 100 mg PO TID PRN pain 6 doses #6 tabs 06/11/21 [Rx Last Taken Unknown] melatonin 5 mg capsule 5 mg PO QHS 09/08/22 [History Last Taken Unknown] magnesium oxide 400 mg (241.3 mg magnesium) tablet 400 mg PO DAILY 14 days #14 tabs 10/08/22 [Rx Last Taken Unknown] Allergy/AdvReac Type Severity Reaction Status Date / Time doxycycline Allergy Mild unknown Verified 09/08/22 10:54 sulfamethoxazole Allergy Mild unknown Verified 09/08/22 10:54 [From Bactrim] trimethoprim [From Bactrim] Allergy Mild unknown Verified 09/08/22 10:54 acetaminophen [From NyQuil] Allergy Hives Verified 09/08/22 10:54 amoxicillin [From Augmentin] Allergy Hives Verified 09/08/22 10:54 cefprozil [From Cefzil] Allergy Hives Verified 09/08/22 10:54 clavulanic acid Allergy Hives Verified 09/08/22 10:54 [From Augmentin] dextromethorphan Allergy Hives Verified 09/08/22 10:54 [From NyQuil] doxylamine [From NyQuil] Allergy Hives Verified 09/08/22 10:54 erythromycin base Allergy Hives Verified 09/08/22 10:54 gatifloxacin [From Tequin] Allergy Hives Verified 09/08/22 10:54 ibuprofen Allergy Other Verified 09/08/22 10:54 [From DayQuil Sinus Pressure/Pain] Iodinated Contrast Media Allergy Hives Verified 09/08/22 10:54 [CONTRASTS] lincomycin Allergy Hives Verified 09/08/22 10:54 metoclopramide [From Reglan] Allergy Other Verified 09/08/22 10:54 pseudoephedrine [From NyQuil] Allergy Hives Verified 09/08/22 10:54 morphine AdvReac Intermediate tachycardia Verified 09/08/22 10:54 CHOLESTEROL MEDS Allergy Other Uncoded 09/08/22 10:54 Family History Father No problems noted. Mother CVA (cerebral vascular accident) Heart disease Sister Colon cancer Diabetes Brother Thyroid disorder Thyroid cancer Sister Cancer vaginal Diabetes Brother Diabetes Surgical History fallopian tube surgery H/O oophorectomy H/O tubal ligation History of ear surgery Hx of cholecystectomy Social History household members: spouse housing: house Smoking Status: Never smoker alcohol intake: never substance use type: does not use caffeine: Yes what type of physical activity do you participate in: walking frequency: 3-4 times per week seatbelt use: always do you feel safe at home: Yes additional social history: [place] Patient and both retired [employer] ED Constitutional Constitutional ED: Denies chills or fever(s) ENT ENT ED: Denies sore throat Cardiovascular Cardiovascular: Reports chest pain; Denies palpitations or racing heartbeat Respiratory/Chest Respiratory/Chest: Reports dyspnea; Denies cough Gastrointestinal Gastrointestinal: Denies abdominal pain, diarrhea, nausea or vomiting Genitourinary Genitourinary ED: Denies dysuria Musculoskeletal Musculoskeletal: Reports other Details: Positive left arm pain ; Denies myalgias Integumentary Denies rash Neurologic Neurologic: Denies headache(s) Hematologic/Lymphatic Hematologic/Lymphatic: Denies easy bleeding or easy bruising EXAM Physical Exam Const Vital Signs: 10/08/22 01:59 10/08/22 01:59 10/08/22 02:07 Temperature 97.9 F Temperature Source Temporal Pulse Rate 91 Respiratory Rate 27 H 17 Blood Pressure Blood Pressure Mean Pulse Ox 99 98 Oxygen Delivery Method Room Air Room Air Room Air 10/08/22 02:45 10/08/22 02:55 10/08/22 04:08 Temperature Temperature Source Pulse Rate 75 Respiratory Rate 18 Blood Pressure 170/75 H 152/65 H 160/60 H Blood Pressure Mean 106 94 93 Pulse Ox Oxygen Delivery Method Positive well nourished, well developed and obese General Appearance ED: well developed Nutritional Appearance: obese Eyes PERRL and EOMs intact bilaterally Neck supple Neck Narrative: Carotid pulses equal and symmetric Chest Wall palpation of chest normal Chest Narrative: No bony deformity or crepitus noted Resp normal respiratory effort and clear to auscultation bilaterally Cardio regular rate and regular rhythm Rate: other Other Details: Radial pulses are plus 2 out of 4 bilaterally are equal and GI normal to inspection, nondistended, normoactive bowel sounds, non-tender, non-distended and no masses GI Narrative: No voluntary guarding or rigidity no pulsatile mass Auscultation: normoactive bowel sounds Palpation: soft Extremity Extremity Narrative: +1-2 pitting edema to the bilateral lower extremities that is equal and symmetric. Negative Homans' sign bilaterally Neuro oriented x3 and CN's II-XII intact bilaterally Sensorium / Orientation: alert Psych Psych Narrative: Patient has a nervous/anxious affect Skin no rashes or lesions noted MDM MDM MDM Narrative Medical decision making narrative: Patient presented to the ER extremely hypertensive with a blood pressure of 206 systolically. She does have a history of hypertension and is also in pain and feeling nervous/anxious so this could be a physiologic response. However with the accelerated hypertension and her report of chest discomfort this could also be vasospasm/constriction from the elevated hypertension. Secondary to this she was given labetalol and Ativan. The blood pressure reduced by 25% to his systolic value of approximately 150. Her initial troponin was 12 and the 2-hour delta change by 8 which is not clinically significant as we are looking for a value of greater than 20 in the delta range. Chest x-ray revealed no acute lung pathology and there are also no signs of acute kidney injury. Patient does have a decreased potassium slightly at 3.4 as well as magnesium at 1.1. These were replaced and patient did have improvement of her PVCs. Therefore at this time as underlying lung pathology has been ruled out with x-ray patient does not have a elevation to her delta troponin by greater than 20 points and there are no signs of acute kidney injury or endorgan damage from hypertension and this has been treated and reduced appropriately she is otherwise safe for discharge. Please note the patient does report relief/resolution of her chest discomfort prior to discharge Lab Data Attestation: I reviewed the patient's lab results. Labs: Laboratory Results - last 24 hr 10/08/22 10/08/22 10/08/22 02:05 02:05 02:05 WBC 13.6 H RBC 4.72 Hgb 13.2 Hct 41.2 MCV 87.3 MCH 28.0 MCHC 32.0 RDW Std Deviation 44.5 H RDW Coeff of Deny 13.8 Plt Count 377 MPV 9.7 Immature Gran % (Auto) 0.400 Neut % (Auto) 37.9 L Lymph % (Auto) 52.2 H Page % (Auto) 7.4 Eos % (Auto) 1.8 Baso % (Auto) 0.3 Absolute Neuts (auto) 5.1 Absolute Lymphs (auto) 7.08 H Nucleated RBC % 0 Differential Comment SCANNED Atypical Lymphocytes RARE Sodium 135 L Potassium 3.4 L Chloride 95 L Carbon Dioxide 28.0 Anion Gap 12 BUN 17 Creatinine 0.94 Estim Creat Clear Calc 46.07 Est GFR (MDRD) Af Amer 76 Est GFR (MDRD) Non-Af 63 BUN/Creatinine Ratio 18.1 Glucose 157 H Calcium 9.3 Magnesium 1.1 L Troponin I High Sens 12 TSH 2.08 10/08/22 04:05 WBC RBC Hgb Hct MCV MCH MCHC RDW Std Deviation RDW Coeff of Deny Plt Count MPV Immature Gran % (Auto) Neut % (Auto) Lymph % (Auto) Page % (Auto) Eos % (Auto) Baso % (Auto) Absolute Neuts (auto) Absolute Lymphs (auto) Nucleated RBC % Differential Comment Atypical Lymphocytes Sodium Potassium Chloride Carbon Dioxide Anion Gap BUN Creatinine Estim Creat Clear Calc Est GFR (MDRD) Af Amer Est GFR (MDRD) Non-Af BUN/Creatinine Ratio Glucose Calcium Magnesium Troponin I High Sens 20 TSH Radiography Diagnostic Testing: Clinical Impression(s) from Imaging Studies Chest X-Ray 10/08/22 02:06 IMPRESSION: No acute cardiopulmonary disease. Electronically Signed: Mendez Whitehead MD at 2:43 EST Reading Location ID and State: [id number] / , Service support , Chest x-ray as interpreted by the emergency medicine physician reveals no acute infiltrate pneumothorax or pleural effusion Discharge Plan Triage Chief Complaint: Chest Pain ED Provider: Beltran Miranda Dx/Rx/DC Orders Clinical Impression: Accelerated hypertension, DM type 2 (diabetes mellitus, type 2), Nonspecific chest pain, Hypomagnesemia, PVC (premature ventricular contraction) Instructions: Controlling High Blood Pressure, ED Chest Pain, Uncertain Cause Prescriptions: New magnesium oxide 400 mg (241.3 mg magnesium) tablet 400 mg PO DAILY 14 Days Qty: 14 0RF No Action multivitamin,kd-qrrw-nlhjesdx tablet tablet 1 tab PO DAILY omeprazole 40 mg capsule,delayed release(DR/EC) 40 mg PO DAILY Zyrtec 10 mg capsule 10 mg PO DAILY ascorbic acid (vitamin C) 500 mg tablet 500 mg PO DAILY pioglitazone [Actos] 30 mg tablet 30 mg PO DAILY Ultra CoQ10 75 mg capsule 75 mg PO DAILY Gaviscon 80-14.2 mg tablet,chewable PO glimepiride 4 mg tablet 4 mg PO QAM tramadol 50 mg tablet 50 mg PO BID phenazopyridine [Pyridium] 100 mg tablet 100 mg PO TID PRN (Reason: pain) Qty: 6 0RF melatonin 5 mg capsule 5 mg PO QHS lisinopril-hydrochlorothiazide 1 TABLET tablet 1 tab PO BID calcium carbonate 600 MG tablet 600 mg PO DAILY simvastatin 20 MG tablet 40 mg PO DAILY montelukast 10 MG tablet 10 mg PO DAILY budesonide-formoterol 1 INHALER inhaler 2 puff Inhalation BID PRN (Reason: Asthma) metformin 1,000 mg tablet,ER verito.retention 24 hr 1,000 mg PO BID Primary Care Provider: Kali Dueñas Referrals: Kali Dueñas MD [Primary Care Provider] - Activity Restrictions/Additional Instructions: Please continue your blood pressure medication as directed by your doctor but please keep track of it once a day to ensure you do not need any further medication added. If you have any further concerns or worsening of symptoms please return to the ER for repeat evaluation Disposition Disposition: Home, Self Care
[2022-10-08 05:47] VITALS: BP 175/81; PULSE 74; RESP 20; O2SAT 96
== END 2022-10-08 05:47 | disposition home or self-care (01) ==
PROVIDERS: Emergency Provider Emergency Medicine; PCP Family Medicine; Visit Provider Emergency Medicine
DX: I10 Essential (primary) hypertension (principal); E11.9 Type 2 diabetes mellitus without complications; R07.9 Chest pain, unspecified; E83.42 Hypomagnesemia; I49.3 Ventricular premature depolarization; E78.5 Hyperlipidemia, unspecified; E66.9 Obesity, unspecified; J45.909 Unspecified asthma, uncomplicated; Z79.899 Other long term (current) drug therapy; Z79.84 Long term (current) use of oral hypoglycemic drugs
CPT/HCPCS: 71045; 80048; 83735; 84443; 84484; 85025; 93005; 96365; 96366; 96375; 99284; A4216

== ENCOUNTER 2022-11-10 10:24 | Day surgery (SDC) | payer MEDICARE, SELFPAY ==
[2022-11-04 10:59] LABS: Absolute Lymphocyte Count 3.41 X10^3/uL (0.83-4.51); Absolute Neutrophil Count 9.1 X10^3/uL (2.0-7.7); Basophil# 0.03 X10^3/uL; Basophil% 0.2 % (0-1); Eosinophil# 0.02 X10^3/uL; Eosinophils% 0.1 % (0-5); Hematocrit 38.2 % (37-47); Hemoglobin 12.3 g/dL (12.0-15.0); Lymphocyte # 3.41 X10^3/ul (0.83-4.51); Lymphocyte % 25.4 % (19-41); Mean Corp Hgb Conc 32.2 g/dL (32-36); Mean Corpuscular Hgb 27.8 pg (27.0-32.0); Mean Corpuscular Volume 86.4 fL (81-99); Mean Platelet Vol. 9.6 fl (6.2-12.0); NRBC Flagged by Analyzer 0 % (0-5); Neutrophil # 9.08 X10^3/uL (2.7-7.7); Neutrophil % 67.6 % (47-70); Platelet Count 367 K/mm3 (150-450); RBC Distribution Width CV 13.9 % (11.6-14.6); RBC Distribution Width SD 44.1 fl (35.1-43.9); Red Blood Count 4.42 M/mm3 (4.2-5.4); White Blood Count 13.4 K/mm3 (4.4-11.0)
[2022-11-04 11:24] LABS: Anion Gap 10 (5-15); BUN 36 mg/dL (7-18); BUN/Creat Ratio 31.9 RATIO (10-20); Calcium,Total 9.3 mg/dL (8.5-10.1); Chloride 97 mmol/L (98-107); Creatinine, Serum 1.13 mg/dL (0.55-1.02); EST Glomerular Filtration Rate 51 mL/min (>60); Est Glom Filt Rate - Afr Amer 61 mL/min (>60); Glucose 218 mg/dL (74-106); Potassium 4.1 mmol/L (3.5-5.1); Sodium Level 135 mmol/L (136-145)
[2022-11-09 13:09] VITALS: BMI 35.9
--- NOTE | 2022-11-10 13:13 | ECHOCS_ITS ---
Reason For Study: CAD/ASHD Procedure This was a 2D Doppler, Color Flow transthoracic echocardiogram. The study was technically difficult. Contrast injection was performed. Exam performed in department. Left Ventricle Normal LV size. Left ventricular systolic function is hyperdynamic. The estimated ejection fraction is 70 %. Stage 1 diastolic dysfunction. No regional wall motion abnormalities noted. Right Ventricle Normal RV size. Normal systolic function. Atria Normal left atrium. Normal right atrium. Mitral Valve Mitral valve not well visualized. Tricuspid Valve The tricuspid valve is not well visualized. Great Vessels Normal aortic root. The pulmonary artery is normal size. Normal inferior vena cava. Pericardium/Pleural No pericardial effusion. Medication Diluted definity 2ml given slow IV push to enhance endocardial definition. MMode/2D Measurements & Calculations LVOT diam: 1.8 cm Ao root diam: 2.8 cm LAV(MOD-bp): 50.3 ml LVOT area: 2.4 cm2 LAV(MOD-bp) Indexed: 26.1 ml/m2 LAV(MOD-sp2): 44.7 ml LAV(MOD-sp4): 55.1 ml LA A4 area: 20.1 cm2 RA A4 area: 11.2 cm2 Time Measurements MV dec time: 0.21 sec Doppler Measurements & Calculations MV E max nikolai: 113.0 cm/sec Lat Peak E' Nikolai: 10.5 cm/sec Med Peak E' Nikolai: 12.2 cm/sec MV A max nikolai: 134.4 cm/sec E/E' lat: 10.7 E/E' med: 9.3 MV E/A: 0.84 MV V2 max: 131.9 cm/sec MV dec slope: 602.5 cm/sec2 Ao V2 max: 188.5 cm/sec MV max P.0 mmHg Ao max P.3 mmHg MV V2 mean: 80.2 cm/sec Ao V2 mean: 131.1 cm/sec MV mean P.0 mmHg Ao mean P.7 mmHg MV V2 VTI: 32.5 cm Ao V2 VTI: 41.2 cm BINH(V,D): 1.4 cm2 LV V1 max: 107.3 cm/sec LV V1 max P.6 mmHg ECHO/Echo Complete W/ Contrast Interpretation Summary Normal LV size. Left ventricular systolic function is hyperdynamic. The estimated ejection fraction is 70 %. Stage 1 diastolic dysfunction. Contrast injection was performed. Ordering Physician: Leo Rubio Referring Physician: Leo Rubio Performed By: Faith Lakhani RCS
--- NOTE | 2022-11-10 18:07 | CL.D_ITS ---
Patient Name: JANESSA TORREZ CARO Study Date: 11/10/2022 Performing: Leo Rubio MD Ht: 63 inches 160.02 cm : 1950 Wt: 203.3 lbs 92.08 kg Age: 72 Gender: female BSA: 1.95 PROCEDURE(S) PERFORMED [id number])[facility] CLINICAL PROFILE AND INDICATIONS Indications: Worsening Angina Heart Failure: None Stress/Imaging Stress/Image Study Performed: No CAD Presentations: Unstable angina. CONCLUSIONS Severe triple-vessel disease with very calcified LAD and circumflex artery and totally occluded right coronary artery with left to right collaterals severe disease noted in the proximal and mid LAD and proximal circumflex artery RECOMMENDATIONS Surgery consult for coronary revascularization DESCRIPTION OF PROCEDURE The patient arrived to the procedure lab. The risks and benefits of the procedure as well as a full description of our services here and current unavailability of surgical backup were fully explained to the patient and/or their significant other prior to the catheterization. The Timeout was completed, verifying the correct patient and procedure. The patient's procedural site was prepped and draped in the usual fashion. Local anesthetic was given subcutaneously to right radial region with Lidocaine 2%. Using a modified Seldinger technique, arterial access was obtained via the right radial artery, a 6Fr sheath was inserted. Left Coronary Artery selective angiography was performed in multiple views using a 5 Fr. 4.0 [place] catheter.The arterial sheath was pulled and a TR Band was applied for hemostasis CORONARY ANGIOGRAPHY DOMINANCE: Right Dominant LEFT HEART ASSESSMENT Left Ventricular Ejection Fraction: by Echo 55 % Normal LV wall motion Normal Left Ventricular systolic function LEFT MAIN: Moderate calcification LEFT ANTERIOR DESCENDING ARTERY: There is a severely calcified vessel with mid segment stenosis of approximately 80% long lesion and distal mild disease and collateralizing the posterior descending artery. CIRCUMFLEX ARTERY: Nondominant but medium size vessel with significant calcification involving the proximal region of approximately 70% prior to the bifurcation to the obtuse marginal branch in the AV groove branch. RIGHT CORONARY ARTERY: Dominant vessel which is totally occluded severely calcified with mid segment filling via homocollaterals and distal segment filling via left to right collaterals COMPLICATIONS No Complications PROCEDURE MEDICATIONS Fentanyl 25 mcg IV Versed 0.5 mg IV Fentanyl 25 mcg IV Versed 0.5 mg IV Versed 1 mg IV Fentanyl 25 mcg IV Versed 1 mg IV Aspirin (325mg) 1 Tabs PO 11/10/2022 11:30:01 Benadryl 50 mg IV @ 11/10/2022 12:14:12 Heparin given IA 11/10/2022 12:36:36 Nitro 200 mcg IA 11/10/2022 12:48:21 Solu-medrol 125 mg IV 11/10/2022 12:14:00 SUMMARY OF HEMODYNAMIC DATA Time AIR REST ECG 10:51:58 Art 143/60 (90) 12:23:07 AO 190/75 (125) SA 12:38:15 Signed By Leo Rubio MD On 11/10/2022 18:07:14 Leo Rubio MD
== END 2022-11-10 14:46 | disposition home or self-care (01) ==
PROVIDERS: PCP Family Medicine; Referring Provider Internal Medicine Cardiovascular Disease; Visit Provider Internal Medicine Cardiovascular Disease
DX: I25.110 Atherosclerotic heart disease of native coronary artery with unstable angina pectoris (principal); E11.9 Type 2 diabetes mellitus without complications; J45.909 Unspecified asthma, uncomplicated; I10 Essential (primary) hypertension; E78.5 Hyperlipidemia, unspecified; Z79.84 Long term (current) use of oral hypoglycemic drugs; Z79.899 Other long term (current) drug therapy
CPT/HCPCS: 36415; 80048; 85025; 93306; 93454; 99152; 99153; C1894; J7040; Q9957; A4216; C1769; C8929

== ENCOUNTER → 2022-11-25 | Outpatient (CLI) | payer MEDICARE, SELFPAY ==
[2022-11-25 13:01] LABS: Amphetamine Urine VISTA NEGATIVE (<1000 ng/mL); Barbiturate Urine VISTA NEGATIVE (< 200 ng/mL); Benzodiazepine Urine VISTA NEGATIVE (< 200 ng/mL); Cocaine Urine VISTA NEGATIVE (< 300 ng/mL); Ecstacy Urine VISTA NEGATIVE (< 500 ng/mL); Methadone Urine VISTA NEGATIVE (< 300 ng/mL); PCP Urine VISTA NEGATIVE (< 25 ng/mL); THC Urine VISTA NEGATIVE (< 50 ng/mL); Vista UDS pH Range 5
== END | disposition home or self-care (01) ==
LOC: LAB 11:11
PROVIDERS: PCP Family Medicine; Referring Provider Anesthesiology Pain Medicine; Visit Provider Anesthesiology Pain Medicine
DX: Z79.899 Other long term (current) drug therapy (principal)
CPT/HCPCS: 80307

== ENCOUNTER 2022-12-22 03:36 | Emergency (ER) | payer MEDICARE, SELFPAY ==
[2022-12-22 03:37] VITALS: BP 156/76; PULSE 88; RESP 18; TEMP 36.8; O2SAT 97
--- NOTE | 2022-12-22 04:04 | RAD_ITS ---
INDICATION: bloating, belching, recent CABG EXAMINATION/TECHNIQUE: X-RAY - XR Abdomen Series W/ Chest 1 View COMPARISON: : FINDINGS: --Chest: LINES/DEVICES: None. LUNGS: No consolidation, edema or effusion. No pneumothorax. MEDIASTINUM AND CARDIOVASCULAR STRUCTURES: Cardiac silhouette not enlarged. Central airways and mediastinal contour are unremarkable. Sternal wires are noted. BONES AND SOFT TISSUES: No acute findings. --Abdomen: BOWEL GAS PATTERN: Non-obstructive. No bowel or stomach distention. FREE AIR: None visualized. ORGANOMEGALY: Not seen. CALCIFICATIONS: No abnormal calcifications observed. BONES AND SOFT TISSUES: There is mild levoscoliosis of the lumbar spine. RAD/Acute Abdomen Inc Chest IMPRESSION: Negative chest and abdominal series. Electronically Signed: Ronnie Sun MD at 5:05 EDT ,
--- NOTE | 2022-12-22 04:05 | EKG12_ITS ---
Test Reason : DYSRHYTHMIA Blood Pressure : / mmHG Vent. Rate : 082 BPM Atrial Rate : 082 BPM P-R Int : 164 ms QRS Dur : 092 ms QT Int : 414 ms P-R-T Axes : 026 -21 116 degrees QTc Int : 483 ms Normal sinus rhythm Inferior infarct , age undetermined T wave abnormality, consider anterolateral ischemia Abnormal ECG Confirmed by VIN CHANEY, ILIANA ([id number]), proposal editor KAELA VAZ ([id number]) on 12/23/2022 12:53:45 P M Referred By: ARGENIS Confirmed By:JAYNA BANUELOS MD
--- NOTE | 2022-12-22 04:06 | EDS_ITS ---
HPI History of Present Illness Chief Complaint: Abd Pain Detail of Chief Complaint: Belching Informant: patient and spouse/S.O. Onset/Context/Timing Onset: Hours (4-5) Narrative Narrative: Patient states she has been belching for 5 hours straight or more. Started about an hour after she ate dinner, she states she ate very little but it included a banana. She states she tried simethicone and then [place] and she cannot stop. She feels a little bloated. She has no other symptoms. She had a CABG 4.5 weeks ago at [facility]. She states she has been recovering well. She denies any chest pain shortness of breath. She states the last couple days her asthma has been flared up a little bit, she called her heart doctor and they called her in some Lasix to take in case she had been developing some fluid buildup that was causing her breathing difficulty. She states she is not short of breath now. She states she has had issues with belching in the past but never not been able to stop like this. She has been having normal bowel movements and urinating normally. [facility] Medical History Arthritis Asthma Carotid stenosis Diabetes Gastrointestinal problem H/o difficulty anesthesia Hiatal hernia High triglycerides Hyperlipidemia Hypertension Mass of both breasts on mammogram Postoperative atrial fibrillation Stomach inflammation Home Medications budesonide-formoterol HFA 160 mcg-4.5 mcg/actuation aerosol inhaler 2 puff inhalation BID PRN Asthma 05/21/16 [History Last Taken 05/21/16] calcium carbonate 600 mg calcium (1,500 mg) tablet 600 mg PO DAILY 05/21/16 [History Last Taken 05/21/16] montelukast 10 mg tablet 10 mg PO DAILY 05/21/16 [History Last Taken 05/21/16] simvastatin 20 mg tablet 40 mg PO DAILY 05/21/16 [History Last Taken 05/21/16] cetirizine 10 mg capsule (Zyrtec) 10 mg PO DAILY 05/18/18 [History Last Taken Unknown] multivitamin,qr-dwhn-dfhiigol (Complete Multivitamin tablet) 1 tab PO DAILY 05/18/18 [History Last Taken Unknown] Al hyd-Mg tr-alg ac-sod bicarb 80 mg-14.2 mg chewable tablet (Gaviscon) tab PO 05/22/19 [History Last Taken Unknown] ascorbic acid (vitamin C) 500 mg tablet 500 mg PO DAILY 05/22/19 [History Last Taken Unknown] coenzyme Q10 75 mg capsule (Ultra CoQ10) 75 mg PO DAILY 05/22/19 [History Last Taken Unknown] glimepiride 4 mg tablet 4 mg PO QAM 05/22/19 [History Last Taken 11/10/22] metformin 1,000 mg 24 hr tablet,extended release 1,000 mg PO BID 05/22/19 [History Last Taken Unknown] melatonin 5 mg capsule 5 mg PO QHS 09/08/22 [History Last Taken Unknown] magnesium oxide 400 mg (241.3 mg magnesium) tablet 400 mg PO DAILY 14 days #14 tabs 10/08/22 [Rx Last Taken Unknown] albuterol sulfate 90 mcg/actuation aerosol inhaler 2 puff inhalation Q6H PRN Shortness Of Breath Or Wheezing 11/04/22 [History Last Taken Unknown] omeprazole 40 mg capsule,delayed release 20 mg PO BID 11/04/22 [History Last Taken Unknown] amiodarone 200 mg tablet 200 mg PO DAILY 12/21/22 [History Last Taken Unknown] aspirin 81 mg tablet,delayed release (Adult Low Dose Aspirin) 81 mg PO DAILY 12/21/22 [History Last Taken Unknown] empagliflozin 10 mg tablet (Jardiance) 10 mg PO DAILY 12/21/22 [History Last Taken Unknown] furosemide 40 mg tablet 40 mg PO DAILY 12/21/22 [History Last Taken Unknown] lisinopril 5 mg tablet 5 mg PO DAILY 12/21/22 [History Last Taken Unknown] metoprolol tartrate 25 mg tablet 25 mg PO BID 12/21/22 [History Last Taken Unknown] oxycodone 5 mg tablet 5 mg PO Q6H PRN 12/21/22 [History Last Taken Unknown] potassium chloride 20 mEq tablet,extended release 20 meq PO DAILY 12/21/22 [History Last Taken Unknown] Allergy/AdvReac Type Severity Reaction Status Date / Time doxycycline Allergy Mild unknown Verified 11/04/22 09:25 sulfamethoxazole Allergy Mild unknown Verified 11/04/22 09:25 [From Bactrim] trimethoprim [From Bactrim] Allergy Mild unknown Verified 11/04/22 09:25 acetaminophen [From NyQuil] Allergy Hives Verified 11/04/22 09:25 amoxicillin [From Augmentin] Allergy Hives Verified 11/04/22 09:25 cefprozil [From Cefzil] Allergy Hives Verified 11/04/22 09:25 clavulanic acid Allergy Hives Verified 11/04/22 09:25 [From Augmentin] dextromethorphan Allergy Hives Verified 11/04/22 09:25 [From NyQuil] doxylamine [From NyQuil] Allergy Hives Verified 11/04/22 09:25 erythromycin base Allergy Hives Verified 11/04/22 09:25 gatifloxacin [From Tequin] Allergy Hives Verified 11/04/22 09:25 ibuprofen Allergy Other Verified 11/04/22 09:25 [From DayQuil Sinus Pressure/Pain] Iodinated Contrast Media Allergy Hives Verified 11/04/22 09:25 [CONTRASTS] lincomycin Allergy Hives Verified 11/04/22 09:25 metoclopramide [From Reglan] Allergy Other Verified 11/04/22 09:25 pseudoephedrine [From NyQuil] Allergy Hives Verified 11/04/22 09:25 Nagxcfc-AEK-MlF Reductase Allergy Other Verified 11/30/22 13:52 Inhibitor morphine AdvReac Intermediate tachycardia Verified 11/04/22 09:25 Family History Father No problems noted. Mother CVA (cerebral vascular accident) Heart disease Sister Colon cancer Diabetes Brother Thyroid disorder Thyroid cancer Sister Cancer vaginal Diabetes Brother Diabetes Surgical History fallopian tube surgery H/O oophorectomy H/O tubal ligation History of coronary artery bypass graft x 3 (~11/26/22) History of ear surgery Hx of cholecystectomy Social History household members: spouse housing: house Smoking Status: Never smoker alcohol intake: never substance use type: does not use caffeine: Yes what type of physical activity do you participate in: walking frequency: 3-4 times per week seatbelt use: always do you feel safe at home: Yes additional social history: [place] Patient and both retired ROS ROS ED Constitutional Constitutional ED: Denies chills or fever(s) Eyes Eyes: Denies change in vision or diplopia ENT ENT ED: Denies rhinorrhea or sore throat Cardiovascular Cardiovascular: Denies chest pain or palpitations Respiratory/Chest Respiratory/Chest: Denies cough or dyspnea Gastrointestinal Gastrointestinal: Reports as per HPI, abdominal pain, belching and bloating; Denies diarrhea, nausea or vomiting Genitourinary Genitourinary ED: Denies dysuria or hematuria Musculoskeletal Musculoskeletal: Denies back pain or neck pain Integumentary Denies abscess or rash Neurologic Neurologic: Denies headache(s), paresthesias or weakness Psychiatric Psychiatric: Denies anxiety or suicidal thoughts EXAM Physical Exam Const Vital Signs: 12/22/22 03:37 Temperature 98.2 F Temperature Source Temporal Pulse Rate 88 Respiratory Rate 18 Blood Pressure 156/76 H Blood Pressure Mean 102 Pulse Ox 97 Positive well nourished, well developed and obese General Appearance ED: well developed and NAD Nutritional Appearance: obese HEENT Reports moist mucous membranes normocephalic and atraumatic Eyes PERRL and EOMs intact bilaterally Neck full ROM and supple Resp normal respiratory effort and clear to auscultation bilaterally Cardio regular rate, regular rhythm and no murmurs GI non-tender GI Narrative: Mildly distended but soft and nontender abdomen, wire site and epigastrium are benign and well-healing. No signs of cellulitis/infection. Recurrent belching. Inspection: abdominal distention Auscultation: normoactive bowel sounds Palpation: soft Back/Spine no CVA tenderness General Back: other FROM Extremity normal to inspection General Extremety ED: Negative for edema, pulses abnormal or tenderness General Extremity: Negative for edema or pulses abnormal Neuro oriented x3, CN's II-XII intact bilaterally and no sensory deficits noted Sensorium / Orientation: awake and alert Motor Exam: strength 5/5 throughout Skin no rashes or lesions noted and no wounds MDM MDM MDM Narrative Medical decision making narrative: Given that she is a relatively elderly female with a history of coronary disease although she just had a CABG, cardiac etiologies are in the differential although thought less likely to be the case here since she has no other symptoms. Her cardiac work-up is unremarkable. She does have some nonspecific T wave flattening and inversions, however she just had cardiac surgery and her last EKG was prior to that. Therefore I think those changes are insignificant in context and more likely due to the fact that she had cardiac surgery. Her troponin is negative after having 5 or 6 hours of constant belching, ruling out acute coronary syndrome from intensive purposes. I did an acute abdominal series, shows a nonspecific bowel gas pattern, no signs of an obstruction, pneumomediastinum, pneumothorax, or any other acute chest abnormality, 4 views of my interpretation. Radiology in agreement. On reevaluation she is belching less but still having some occasional belching. I gave her a teaspoon of baking soda dissolved in about 5 ounces of water, and she will be discharged with instructions for supportive care. My suspicion is that eating the banana because this, I gave her a list of other foods to avoid before bed. Lab Data Attestation: I reviewed the patient's lab results. Labs: Laboratory Results - last 24 hr 12/22/22 12/22/22 04:15 04:15 WBC 10.2 RBC 4.33 Hgb 11.5 L Hct 36.6 L MCV 84.5 MCH 26.6 L MCHC 31.4 L RDW Std Deviation 43.8 RDW Coeff of Deny 14.2 Plt Count 408 MPV 8.7 Immature Gran % (Auto) 0.300 Neut % (Auto) 51.2 Lymph % (Auto) 31.0 [place] % (Auto) 10.2 H Eos % (Auto) 6.5 H Baso % (Auto) 0.8 Absolute Neuts (auto) 5.2 Absolute Lymphs (auto) 3.15 Nucleated RBC % 0 Sodium 135 L Potassium 3.6 Chloride 98 Carbon Dioxide 27.0 Anion Gap 10 BUN 24 H Creatinine 1.22 H Est GFR (MDRD) Af Amer 56 L Est GFR (MDRD) Non-Af 46 L BUN/Creatinine Ratio 19.7 Glucose 175 H Calcium 9.4 Total Bilirubin 0.30 AST 14 L ALT 20 Alkaline Phosphatase 138 H Troponin I High Sens 7 Total Protein 7.8 Albumin 3.7 Globulin 4.1 Albumin/Globulin Ratio 0.9 Radiography Diagnostic Testing: Clinical Impression(s) from Imaging Studies Acute Abdomen Series 12/22/22 04:04 IMPRESSION: Negative chest and abdominal series. Electronically Signed: Ronnie Sun MD at 5:05 EDT , Rhythm Strip Rhythm Strip: Sinus Rhythm Rate: 80 Ectopy: None EKG Initial EKG: Attestation: I personally reviewed and interpreted this EKG as follows: Interpretation: Sinus Rhythm, No Acute Injury Pattern and Non-Specific ST Changes Prior: Changed (But latest old EKG was pre-CABG) Discharge Plan Triage Chief Complaint: Abd Pain ED Provider: Al Perez Dx/Rx/DC Orders Clinical Impression: Belching Instructions: Low-Fiber Diet Prescriptions: No Action multivitamin,of-nvdj-wyzoaujp tablet tablet 1 tab PO DAILY Zyrtec 10 mg capsule 10 mg PO DAILY omeprazole 40 mg capsule,delayed release(DR/EC) 20 mg PO BID ascorbic acid (vitamin C) 500 mg tablet 500 mg PO DAILY Ultra CoQ10 75 mg capsule 75 mg PO DAILY Gaviscon 80-14.2 mg tablet,chewable PO glimepiride 4 mg tablet 4 mg PO QAM melatonin 5 mg capsule 5 mg PO QHS albuterol sulfate 90 mcg/actuation HFA aerosol inhaler 2 puff inhalation Q6H PRN (Reason: Shortness Of Breath Or Wheezing) calcium carbonate 600 MG tablet 600 mg PO DAILY simvastatin 20 MG tablet 40 mg PO DAILY montelukast 10 MG tablet 10 mg PO DAILY budesonide-formoterol 1 INHALER inhaler 2 puff Inhalation BID PRN (Reason: Asthma) metformin 1,000 mg tablet,ER verito.retention 24 hr 1,000 mg PO BID magnesium oxide 400 mg (241.3 mg magnesium) tablet 400 mg PO DAILY 14 Days Qty: 14 0RF amiodarone 200 mg tablet 200 mg PO DAILY aspirin [Adult Low Dose Aspirin] 81 mg tablet,delayed release (DR/EC) 81 mg PO DAILY Jardiance 10 mg tablet 10 mg PO DAILY furosemide 40 mg tablet 40 mg PO DAILY lisinopril 5 mg tablet 5 mg PO DAILY metoprolol tartrate 25 mg tablet 25 mg PO BID oxycodone 5 mg tablet 5 mg PO Q6H PRN potassium chloride 20 mEq tablet extended release 20 meq PO DAILY Primary Care Provider: Kali Dueñas Referrals: Kali Dueñas MD [Primary Care Provider] - 3-5 Days if not improving Activity Restrictions/Additional Instructions: Some foods and drinks can also cause more frequent belching. These include carbonated drinks, alcohol, and foods high in starch, sugar, or fiber that cause gas. Common culprits ?include: * beans * lentils * broccoli * peas * onions * cabbage * cauliflower * bananas * raisins * whole-wheat bread Disposition Disposition: Home, Self Care
[2022-12-22 04:21] LABS: Absolute Lymphocyte Count 3.15 X10^3/uL (0.83-4.51); Absolute Neutrophil Count 5.2 X10^3/uL (2.0-7.7); Basophil# 0.08 X10^3/uL; Basophil% 0.8 % (0-1); Eosinophil# 0.66 X10^3/uL; Eosinophils% 6.5 % (0-5); Hematocrit 36.6 % (37-47); Hemoglobin 11.5 g/dL (12.0-15.0); Lymphocyte # 3.15 X10^3/ul (0.83-4.51); Mean Corp Hgb Conc 31.4 g/dL (32-36); Mean Corpuscular Hgb 26.6 pg (27.0-32.0); Mean Corpuscular Volume 84.5 fL (81-99); Mean Platelet Vol. 8.7 fl (6.2-12.0); Monocyte# 1.04 X10^3/uL; Monocyte% 10.2 % (0-10); NRBC Flagged by Analyzer 0 % (0-5); Neutrophil # 5.21 X10^3/uL (2.7-7.7); Neutrophil % 51.2 % (47-70); Platelet Count 408 K/mm3 (150-450); RBC Distribution Width CV 14.2 % (11.6-14.6); RBC Distribution Width SD 43.8 fl (35.1-43.9); Red Blood Count 4.33 M/mm3 (4.2-5.4); White Blood Count 10.2 K/mm3 (4.4-11.0)
[2022-12-22 04:39] LABS: ALB/GLOB Ratio 0.9 RATIO (0.9-2.4); AST(SGOT) 14 U/L (15-37); Alanine Aminotransfer ALT/SGPT 20 U/L (13-56); Albumin, Serum 3.7 g/dL (3.2-5.0); Alkaline Phosphatase 138 U/L (45-117); Anion Gap 10 (5-15); BUN 24 mg/dL (7-18); BUN/Creat Ratio 19.7 RATIO (10-20); Calcium,Total 9.4 mg/dL (8.5-10.1); Chloride 98 mmol/L (98-107); Creatinine, Serum 1.22 mg/dL (0.55-1.02); EST Glomerular Filtration Rate 46 mL/min (>60); Est Glom Filt Rate - Afr Amer 56 mL/min (>60); Globulin 4.1 g/dL (2.2-4.2); Glucose 175 mg/dL (74-106); Potassium 3.6 mmol/L (3.5-5.1); Protein, Total 7.8 g/dL (6.4-8.2); Sodium Level 135 mmol/L (136-145); Troponin-I HS 7 pg/mL (3.0-54.0)
[2022-12-22 05:42] VITALS: BMI 34.5
== END 2022-12-22 05:52 | disposition home or self-care (01) ==
PROVIDERS: Emergency Provider Emergency Medicine; PCP Family Medicine; Visit Provider Emergency Medicine
DX: R14.2 Eructation (principal); I25.10 Atherosclerotic heart disease of native coronary artery without angina pectoris; E66.9 Obesity, unspecified; Z95.1 Presence of aortocoronary bypass graft
CPT/HCPCS: 74022; 80053; 84484; 85025; 93005; 99285

== ENCOUNTER 2023-01-04 18:50 | Emergency (ER) | payer MEDICARE, SELFPAY ==
[2023-01-04 18:51] VITALS: BP 169/87; PULSE 95; RESP 18; TEMP 36.2; O2SAT 97
[2023-01-04 19:22] VITALS: PULSE 89; RESP 18; O2SAT 99; BMI 34.4
--- NOTE | 2023-01-04 19:52 | EX.ED.DYSGE1 ---
HPI History of Present Illness Chief Complaint: Hypertension Informant: patient Narrative Narrative: Patient had high blood pressure at home today. Anywhere from the 160s systolic to 180/100. She states she was here a week or 2 ago, she actually saw myself, for recurrent belching that she could not stop from. She said that started again this morning. It is better now, but she was very anxious and stressed out about it, and started getting tingling around her lips, and checked her blood pressure a few times and as a result of all of that she came here. She took an extra dose of her lisinopril and an extra dose of her metoprolol which are the only medication she is on for blood pressure right now. She denies any chest pain, shortness of breath, abdominal pain, lightheadedness, syncope, or any other acute symptoms. [facility] Medical History Arthritis Asthma Carotid stenosis Diabetes Gastrointestinal problem H/o difficulty anesthesia Hiatal hernia High triglycerides Hyperlipidemia Hypertension Mass of both breasts on mammogram Postoperative atrial fibrillation Stomach inflammation Home Medications budesonide-formoterol HFA 160 mcg-4.5 mcg/actuation aerosol inhaler 2 puff inhalation BID PRN Asthma 05/21/16 [History Last Taken 05/21/16] calcium carbonate 600 mg calcium (1,500 mg) tablet 600 mg PO DAILY 05/21/16 [History Last Taken 05/21/16] montelukast 10 mg tablet 10 mg PO DAILY 05/21/16 [History Last Taken 05/21/16] simvastatin 20 mg tablet 40 mg PO DAILY 05/21/16 [History Last Taken 05/21/16] cetirizine 10 mg capsule (Zyrtec) 10 mg PO DAILY 05/18/18 [History Last Taken Unknown] multivitamin,[id number] (Complete Multivitamin tablet) 1 tab PO DAILY 05/18/18 [History Last Taken Unknown] Al hyd-Mg tr-alg ac-sod bicarb 80 mg-14.2 mg chewable tablet (Gaviscon) 1 tab PO DAILY 05/22/19 [History Last Taken Unknown] ascorbic acid (vitamin C) 500 mg tablet 500 mg PO DAILY 05/22/19 [History Last Taken Unknown] coenzyme Q10 75 mg capsule (Ultra CoQ10) 75 mg PO DAILY 05/22/19 [History Last Taken Unknown] glimepiride 4 mg tablet 4 mg PO QAM 05/22/19 [History Last Taken 11/10/22] metformin 1,000 mg 24 hr tablet,extended release 1,000 mg PO BID 05/22/19 [History Last Taken Unknown] albuterol sulfate 90 mcg/actuation aerosol inhaler 2 puff inhalation Q6H PRN Shortness Of Breath Or Wheezing 11/04/22 [History Last Taken Unknown] omeprazole 40 mg capsule,delayed release 20 mg PO BID 11/04/22 [History Last Taken Unknown] aspirin 81 mg tablet,delayed release (Adult Low Dose Aspirin) 81 mg PO DAILY 12/21/22 [History Last Taken Unknown] empagliflozin 10 mg tablet (Jardiance) 10 mg PO DAILY 12/21/22 [History Last Taken Unknown] lisinopril 5 mg tablet 5 mg PO DAILY 12/21/22 [History Last Taken 01/04/23 16:30] metoprolol tartrate 25 mg tablet 25 mg PO BID 12/21/22 [History Last Taken 01/04/23 16:30] potassium chloride 20 mEq tablet,extended release 20 meq PO DAILY PRN vitamin 12/21/22 [History Last Taken Unknown] melatonin 5 mg tablet 5 mg PO QHS 01/04/23 [History Last Taken Unknown] tramadol 50 mg tablet 50 mg PO TID PRN Pain 01/04/23 [History Last Taken Unknown] Allergy/AdvReac Type Severity Reaction Status Date / Time doxycycline Allergy Mild unknown Verified 11/04/22 09:25 sulfamethoxazole Allergy Mild unknown Verified 11/04/22 09:25 [From Bactrim] trimethoprim [From Bactrim] Allergy Mild unknown Verified 11/04/22 09:25 acetaminophen [From NyQuil] Allergy Hives Verified 11/04/22 09:25 amoxicillin [From Augmentin] Allergy Hives Verified 11/04/22 09:25 cefprozil [From Cefzil] Allergy Hives Verified 11/04/22 09:25 clavulanic acid Allergy Hives Verified 11/04/22 09:25 [From Augmentin] dextromethorphan Allergy Hives Verified 11/04/22 09:25 [From NyQuil] doxylamine [From NyQuil] Allergy Hives Verified 11/04/22 09:25 erythromycin base Allergy Hives Verified 11/04/22 09:25 gatifloxacin [From Tequin] Allergy Hives Verified 11/04/22 09:25 ibuprofen Allergy Other Verified 11/04/22 09:25 [From DayQuil Sinus Pressure/Pain] Iodinated Contrast Media Allergy Hives Verified 11/04/22 09:25 [CONTRASTS] lincomycin Allergy Hives Verified 11/04/22 09:25 metoclopramide [From Reglan] Allergy Other Verified 11/04/22 09:25 pseudoephedrine [From NyQuil] Allergy Hives Verified 11/04/22 09:25 Dcnsiej-RJH-BoC Reductase Allergy Other Verified 11/30/22 13:52 Inhibitor morphine AdvReac Intermediate tachycardia Verified 11/04/22 09:25 Family History Father No problems noted. Mother CVA (cerebral vascular accident) Heart disease Sister Colon cancer Diabetes Brother Thyroid disorder Thyroid cancer Sister Cancer vaginal Diabetes Brother Diabetes Surgical History fallopian tube surgery H/O oophorectomy H/O tubal ligation History of coronary artery bypass graft x 3 (~11/26/22) History of ear surgery Hx of cholecystectomy Social History household members: spouse housing: house Smoking Status: Never smoker alcohol intake: never substance use type: does not use caffeine: Yes what type of physical activity do you participate in: walking frequency: 3-4 times per week seatbelt use: always do you feel safe at home: Yes additional social history: [place] Patient and both retired ROS ROS ED Constitutional Constitutional ED: Denies chills or fever(s) Eyes Eyes: Denies change in vision or diplopia ENT ENT ED: Reports other Details: Tingling in lips gone ; Denies rhinorrhea or sore throat Cardiovascular Cardiovascular: Denies chest pain or palpitations Respiratory/Chest Respiratory/Chest: Denies cough or dyspnea Gastrointestinal Gastrointestinal: Denies abdominal pain, diarrhea, nausea or vomiting Genitourinary Genitourinary ED: Denies dysuria or hematuria Musculoskeletal Musculoskeletal: Denies back pain or neck pain Integumentary Denies abscess or rash Neurologic Neurologic: Denies headache(s), paresthesias or weakness Psychiatric Psychiatric: Reports anxiety; Denies suicidal thoughts EXAM Physical Exam Const Vital Signs: 01/04/23 18:51 01/04/23 19:22 01/04/23 19:22 Temperature 97.2 F L Temperature Source Temporal Pulse Rate 95 89 Respiratory Rate 18 18 Respiratory Pattern Normal Blood Pressure 169/87 H Blood Pressure Mean 114 Pulse Ox 97 99 Oxygen Delivery Method Room Air Room Air Positive well nourished, well developed and obese General Appearance ED: well developed and NAD Nutritional Appearance: obese HEENT Reports moist mucous membranes normocephalic and atraumatic Eyes PERRL and EOMs intact bilaterally Neck full ROM and supple Resp normal respiratory effort and clear to auscultation bilaterally Cardio regular rate, regular rhythm and no murmurs GI non-tender and non-distended Auscultation: normoactive bowel sounds Palpation: soft Back/Spine no CVA tenderness General Back: other FROM Extremity normal to inspection General Extremety ED: Negative for edema, pulses abnormal or tenderness General Extremity: Negative for edema or pulses abnormal Neuro oriented x3, CN's II-XII intact bilaterally and no sensory deficits noted Sensorium / Orientation: awake and alert Motor Exam: strength 5/5 throughout Psych Mood & Affect: anxious Skin no rashes or lesions noted and no wounds MDM MDM MDM Narrative Medical decision making narrative: Patient blood pressure is 180 in triage, on reevaluation it is 169/87. I reassured her. Emergent treatment is not indicated, however she is very anxious about it and I think giving her a single dose of clonidine 0.1 mg will not cause her harm and will help bring her pressure down for now. She has no symptoms of endorgan damage, and her blood pressure is only been up for hours so no need to run any tests right now which I explained to her. Follow-up advised and keeping a log of her pressures. Discharge Plan Triage Chief Complaint: Hypertension ED Provider: Al Perez Dx/Rx/DC Orders Clinical Impression: Episode of hypertension Instructions: Hypertension Dc Prescriptions: No Action multivitamin,zm-smqb-juypvooh tablet tablet 1 tab PO DAILY Zyrtec 10 mg capsule 10 mg PO DAILY omeprazole 40 mg capsule,delayed release(DR/EC) 20 mg PO BID ascorbic acid (vitamin C) 500 mg tablet 500 mg PO DAILY Ultra CoQ10 75 mg capsule 75 mg PO DAILY Gaviscon 80-14.2 mg tablet,chewable 1 tab PO DAILY glimepiride 4 mg tablet 4 mg PO QAM albuterol sulfate 90 mcg/actuation HFA aerosol inhaler 2 puff inhalation Q6H PRN (Reason: Shortness Of Breath Or Wheezing) calcium carbonate 600 MG tablet 600 mg PO DAILY simvastatin 20 MG tablet 40 mg PO DAILY montelukast 10 MG tablet 10 mg PO DAILY budesonide-formoterol 1 INHALER inhaler 2 puff Inhalation BID PRN (Reason: Asthma) metformin 1,000 mg tablet,ER verito.retention 24 hr 1,000 mg PO BID tramadol 50 mg Tablet 50 mg PO TID PRN (Reason: Pain) melatonin 5 mg Tablet 5 mg PO QHS aspirin [Adult Low Dose Aspirin] 81 mg tablet,delayed release (DR/EC) 81 mg PO DAILY Jardiance 10 mg tablet 10 mg PO DAILY lisinopril 5 mg tablet 5 mg PO DAILY metoprolol tartrate 25 mg tablet 25 mg PO BID potassium chloride 20 mEq tablet extended release 20 meq PO DAILY PRN (Reason: vitamin) Primary Care Provider: Kali Dueñas Referrals: Doctor,Your [Non-Staff] - 5-7 Days Disposition Disposition: Home, Self Care
[2023-01-04] MEDS: cloNIDine HCl 0.1 MG Tablet PO (20:00)
[2023-01-04 20:02] VITALS: BP 165/62; PULSE 79; RESP 18; O2SAT 98
[2023-01-04 20:26] LABS: Bedside Glucose 144 mg/dL (74-106)
--- NOTE | 2023-01-04 20:30 | EKG12_ITS ---
Test Reason : GEN ILL Blood Pressure : / mmHG Vent. Rate : 090 BPM Atrial Rate : 090 BPM P-R Int : 180 ms QRS Dur : 090 ms QT Int : 384 ms P-R-T Axes : 033 -22 059 degrees QTc Int : 469 ms Normal sinus rhythm Inferior infarct , age undetermined Abnormal ECG Confirmed by JANET CHANEY, JAMES ([id number]), newspaper managing editor KAELA VAZ ([id number]) on 01/06/2023 2:06:21 PM Referred By: ROBYN Confirmed By:JAMES GONZALES MD
== END 2023-01-04 20:13 | disposition home or self-care (01) ==
PROVIDERS: Emergency Provider Emergency Medicine; PCP Family Medicine; Visit Provider Emergency Medicine
DX: I10 Essential (primary) hypertension (principal); E11.9 Type 2 diabetes mellitus without complications; E78.5 Hyperlipidemia, unspecified; Z79.899 Other long term (current) drug therapy; F41.9 Anxiety disorder, unspecified; E66.9 Obesity, unspecified
CPT/HCPCS: 82962; 93005; 99284; A4216

== ENCOUNTER → 2023-02-11 | Outpatient (CLI) | payer MEDICARE, SELFPAY ==
--- NOTE | 2023-02-11 14:49 | VDLE_ITS ---
Reason For Study: Left leg swelling Procedure LEFT This is a venous duplex using B-mode, color CFV is compressible, spontaneous, phasic, flow and spectral Doppler. competent, and demonstrates normal Exam performed in department. augmentation. A preliminary report was called and/or faxed FV is compressible, spontaneous, phasic, to Dr. Ornelas. competent and demonstrates normal augmentation. POP V is compressible, spontaneous, phasic, competent and demonstrates normal augmentation. T/P Trunk is compressible. PTV is compressible. LT PerV is compressible. GSV was previously harvested. VL/Venous Duplex US, Unilateral Interpretation Summary Deep veins of the left lower extremity are patent and compressible segmentally. There is no evidence of left lower extremity deep vein thrombosis. Valvular competence appears intac t within the proximal deep venous system on the left . The left great saphenous vein is absent, havin g been previously harvested. Ordering Physician: sIai Ornelas Referring Physician: Kali Dueñas Performed By: Theresa Burch RVT
== END | disposition home or self-care (01) ==
LOC: CVS 14:40
PROVIDERS: PCP Family Medicine; Visit Provider Orthopaedic Surgery
DX: R22.42 Localized swelling, mass and lump, left lower limb (principal)
CPT/HCPCS: 93971

== ENCOUNTER 2023-03-11 09:43 | Outpatient (RCR) | payer MEDICARE, SELFPAY ==
[2023-03-11 10:17] VITALS: BP 176/83; PULSE 87; RESP 16; TEMP 36.1; BMI 31.8
--- NOTE | 2023-03-11 11:35 | PCM.WC.HP ---
History of Present Illness Date of Service: 03/11/23 Chief Complaint: Bilateral Buttock Ulcer History of Wound: Ms. Baron is a 72-year-old referred to the wound center due to nonhealing bilateral buttock ulcers. 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 Sitting a lot because she was advised not to lay in bed. She states that she has used several products but over the last 3 weeks, started using hydrogel which was prescribed by her PCP. Some improvement with hydrogel. She states that she has also been making extra effort to keep the area clean and avoid pressure to the area. History of diabetes mellitus and her most recent A1c was 7.4. Takes a protein supplement at least daily and tries to optimize her protein intake as well. She generally feels well. No nausea, vomiting, change in bowel habits, chills or fever. [facility] Medical History (Updated 03/11/23 @ 12:[address] Lamine Payan MD) Arthritis Asthma Carotid stenosis Diabetes Gastrointestinal problem H/o difficulty anesthesia Hiatal hernia High triglycerides Hyperlipidemia Hypertension Mass of both breasts on mammogram Postoperative atrial fibrillation Pressure ulcer of left buttock, stage 2 Pressure ulcer of right buttock, stage 2 Stomach inflammation Home Medications budesonide-formoterol HFA 160 mcg-4.5 mcg/actuation aerosol inhaler 2 puff inhalation BID PRN Asthma 05/21/16 [History Last Taken 05/21/16] montelukast 10 mg tablet 10 mg PO DAILY 05/21/16 [History Last Taken 05/21/16] simvastatin 20 mg tablet 40 mg PO DAILY 05/21/16 [History Last Taken 05/21/16] cetirizine 10 mg capsule (Zyrtec) 10 mg PO DAILY PRN allergy symptoms 05/18/18 [History Last Taken Unknown] multivitamin,pj-dpcx-fembffsa (Complete Multivitamin tablet) 1 tab PO DAILY 05/18/18 [History Last Taken Unknown] Al hyd-Mg tr-alg ac-sod bicarb 80 mg-14.2 mg chewable tablet (Gaviscon) 1 tab PO DAILY PRN GAS 05/22/19 [History Last Taken Unknown] ascorbic acid (vitamin C) 500 mg tablet 500 mg PO DAILY 05/22/19 [History Last Taken Unknown] coenzyme Q10 75 mg capsule (Ultra CoQ10) 100 mg PO DAILY 05/22/19 [History Last Taken Unknown] metformin 1,000 mg 24 hr tablet,extended release 1,000 mg PO BID 05/22/19 [History Last Taken Unknown] albuterol sulfate 90 mcg/actuation aerosol inhaler 2 puff inhalation Q6H PRN Shortness Of Breath Or Wheezing 11/04/22 [History Last Taken Unknown] omeprazole 40 mg capsule,delayed release 20 mg PO BID 11/04/22 [History Last Taken Unknown] aspirin 81 mg tablet,delayed release (Adult Low Dose Aspirin) 81 mg PO DAILY 12/21/22 [History Last Taken Unknown] empagliflozin 10 mg tablet (Jardiance) 10 mg PO DAILY 12/21/22 [History Last Taken Unknown] lisinopril 5 mg tablet 5 mg PO DAILY 12/21/22 [History Last Taken 01/04/23 16:30] metoprolol tartrate 25 mg tablet 25 mg PO BID 12/21/22 [History Last Taken 01/04/23 16:30] tramadol 50 mg tablet 50 mg PO TID PRN Pain 01/04/23 [History Last Taken Unknown] budesonide-formoterol HFA 160 mcg-4.5 mcg/actuation aerosol inhaler (Symbicort) 1 inh inhalation BID PRN SOB 03/11/23 [History Last Taken Unknown] fluticasone propionate 50 mcg/actuation nasal spray,suspension (Flonase Allergy Relief) 2 spray intranasal DAILY 03/11/23 [History Last Taken Unknown] glimepiride 4 mg tablet (Amaryl) 4 mg PO DAILY 03/11/23 [History Last Taken Unknown] melatonin 5 mg capsule 5 mg PO DAILY 03/11/23 [History Last Taken Unknown] omega 3-rhd-ouh-fish oil 300 mg-1,000 mg capsule (Fish Oil) 1 cap PO DAILY 03/11/23 [History Last Taken Unknown] sucralfate 1 gram tablet (Carafate) 1 g PO TID 03/11/23 [History Last Taken Unknown] Allergy/AdvReac Type Severity Reaction Status Date / Time doxycycline Allergy Mild unknown Verified 03/11/23 11:15 sulfamethoxazole Allergy Mild unknown Verified 03/11/23 11:15 [From Bactrim] trimethoprim [From Bactrim] Allergy Mild unknown Verified 03/11/23 11:15 acetaminophen [From NyQuil] Allergy Hives Verified 03/11/23 11:15 amoxicillin [From Augmentin] Allergy Hives Verified 03/11/23 11:15 cefprozil [From Cefzil] Allergy Hives Verified 03/11/23 11:15 clavulanic acid Allergy Hives Verified 03/11/23 11:15 [From Augmentin] dextromethorphan Allergy Hives Verified 03/11/23 11:15 [From NyQuil] doxylamine [From NyQuil] Allergy Hives Verified 03/11/23 11:15 erythromycin base Allergy Hives Verified 03/11/23 11:15 gatifloxacin [From Tequin] Allergy Hives Verified 03/11/23 11:15 ibuprofen Allergy Other Verified 03/11/23 11:15 [From DayQuil Sinus Pressure/Pain] Iodinated Contrast Media Allergy Hives Verified 03/11/23 11:15 [CONTRASTS] lincomycin Allergy Hives Verified 03/11/23 11:15 metoclopramide [From Reglan] Allergy Other Verified 03/11/23 11:15 pseudoephedrine [From NyQuil] Allergy Hives Verified 03/11/23 11:15 Ivdawht-ZJK-[id number] Reductase Allergy Other Verified 01/25/23 12:56 Inhibitor morphine AdvReac Intermediate tachycardia Verified 01/25/23 12:56 Family History Father No problems noted. Mother CVA (cerebral vascular accident) Heart disease Sister Colon cancer Diabetes Brother Thyroid disorder Thyroid cancer Sister Cancer vaginal Diabetes Brother Diabetes Surgical History fallopian tube surgery H/O oophorectomy H/O tubal ligation History of coronary artery bypass graft x 3 (~11/26/22) History of ear surgery Hx of cholecystectomy Social History household members: spouse housing: house Smoking Status: Never smoker alcohol intake: never substance use type: does not use caffeine: Yes what type of physical activity do you participate in: walking frequency: 3-4 times per week seatbelt use: always do you feel safe at home: Yes additional social history: Ross Patient and both retired ROS Constitutional Constitutional: Denies change in weight, daytime sleepiness, fatigue, headache(s), increased appetite, lethargy, malaise or night sweats Eyes Eyes: Denies change in eye color, change in vision, discharge from eye(s), discongugate gaze, double vision, dry eyes or erythema ENT HEENT: Denies dysphagia, epistaxis, facial pain, halitosis, headache(s), hearing loss, hoarseness or lip swelling Cardiovascular Cardiovascular: Denies chest pain at rest, chest pain with activity, claudication, clubbing, cold extremities, cyanosis or dyspnea at rest Respiratory/Chest Respiratory/Chest: Denies difficulty clearing secretions, excessive phlegm production, hemoptysis, hoarseness, inability to speak or pain on inspiration Gastrointestinal Gastrointestinal: Denies change in bowel habits, chewing difficulty, cramping, diarrhea, dry heaves, dyspepsia, dysphagia or early satiety Genitourinary Genitourinary: Denies abdominal discomfort, burning urination or flank pain Musculoskeletal Musculoskeletal: Denies difficulty walking, extremity pain, muscle cramps, muscle spasms, muscle weakness or neck pain Integumentary Integumentary: Reports skin ulcer; Denies bleeding lesions, change in pigmentation, dry skin, furuncle, jaundice or skin swelling Neurologic Neurologic: Denies behavior changes, burning sensations, convulsions, focal weakness, frequent falls, lack of coordination, loss of vision or memory loss Psychiatric Psychiatric: Denies behavioral changes, change in appetite, cognitive impairment, confusion, difficulty concentrating, hallucinations, irritability or memory loss Endocrine Endocrinology: Denies cold intolerance, deepening of the voice, excessive sweating, flushing, increase in ring/shoe/hat size, palpitations or polyphagia Allergic/Immunologic Allergic/Immunologic: Denies lip swelling, seasonal rhinorrhea, throat swelling, tongue swelling, eczemia or wheezing Vital Signs Vital Signs Vital Signs: 03/11/23 10:17 Temperature 97 F L Temperature Source Temporal Pulse Rate 87 Respiratory Rate 16 Blood Pressure 176/83 H Blood Pressure Mean 114 Blood Pressure Source Monitor Blood Pressure Position Sitting Blood Pressure Location Left Arm Oxygen Delivery Method Room Air Weight Weight: 180 lb Body Mass Index (BMI) 31.8 Physical Exam Const alert, oriented x3 and no apparent distress General Appearance: cooperative, comfortable and well kempt HEENT normocephalic and head/scalp atraumatic Eyes EOMs intact bilaterally Neck full ROM and supple General: normal visual inspection Resp normal respiratory effort and normal air movement Effort and Inspection: able to speak in complete sentences Cardio regular rate and regular rhythm GI soft to palpation, non-tender and non-distended Extremity no pedal edema Skin Wounds: wounds noted Neuro oriented x3, CN's II-XII intact bilaterally, moves all extremities and no focal motor deficits Psych mental status grossly normal, thought process normal, cooperative, affect normal and speech normal Debridement Note Debridement Note Wound debrided: Left buttock Wound Grade/Stage: Stage II Type of Debridement: Excisional debridement Anesthesia Used: 4% Lidocaine Solution Depth: Down to and including healthy tissue and in the subcutaneous layer Percentage of wound debrided: 100 Instrument Used: 3mm curette Tissue Removed: Slough and devitalized tissue Severity: Fat Layer Exposed Amount of bleeding with debridement: Mild Bleeding Controlled with: Pressure Patient tolerated procedure: Patient tolerated procedure well Post-Debridement Measurements and Additional Note: Post-Debridement Measurements/Treatment - Nurse 1 - General Ulcer Assessment Start: 03/11/23 10:15 Freq: Status: Active Protocol: SOM Activity Type Activity Date Activity User E-sign Co-sign Detail Recorded Client Recorded Date Recorded By Document 03/11/23 10:17 [facility] [id number] 03/11/23 10:35 [facility] 03/11/23 10:17 - Today's Visit Information Type of service Initial Visit Arrival Mode Ambulatory, Walker Transfer Assistance None Accompanied by Patient Identification Verified (Name & Yes ) Patient Requires Transmission-Based No Precautions Finger Stick Blood Sugar(mg/dl) (if 160's indicated): Blood Sugar Stated by Patient Height and Weight Height 5 ft 3 in Weight 180 lb Weight in Pounds 180.0 lbs Body Mass Index (BMI) 31.8 BMI Classification Obese BSA - Shania 1.85 Vital Signs Temperature (97.8 F-99.1 F) 97 F L Temperature Source Temporal Pulse Rate (60-100) 87 Pulse Location Monitor Respiratory Rate (12-18) 16 Respiratory rate source Observation Oxygen Delivery Method Room Air Blood Pressure (90/60-120/80) 176/83 H Blood Pressure Mean 114 Source Monitor Position Sitting Blood Pressure Location Left Arm History Since Last Visit- (Skip if this is Patient's initial visit) Left Footwear Regular Shoe Right Footwear Regular Shoe Pain Scale: 0-10 Numeric Is Patient Pain Free? Yes Communication Assessment Preferred language Khmer Paver Required No Able to Read Yes Able to Write Yes Communication Tools None Right Hearing Abillity Normal Left Hearing Abillity Normal Visual Assistive Devices None Teaching Assessment Preferences Verbal,Written, Audio/Visual, Demonstration Barriers to Learning None Readiness To Learn Excellent Willingness to Engage in Self Management High Activies Readiness to Engage in Self Management High Activities Anxiety Level Calm Cooperation Cooperative Perception Coherent Interest in Health Problem Asks Questions Education Importance Acknowledges Need Does Patient Smoke tobacco or other No substances Is Patient Diabetic Yes Functional Assessment Recent Decline in Ability to Perform Denies Any Declines Culture/Sikh/Finishing [employer] Cultural/Sikh Needs that may affect No Treatment Plan Teaching: Wound Center *Welcome to the Wound Center -Person Taught Patient, Significant Other -Teaching Method Discussion -Response to teaching Verbalize understanding Welcome to the Wound Care Center English CAN - Nurse 1 - General Ulcer Measurement Start: 03/11/23 10:15 Freq: Status: Active Protocol: Activity Type Activity Date Activity User E-sign Co-sign Detail Recorded Client Recorded Date Recorded By Document 03/11/23 10:17 [facility] [id number] 03/11/23 10:35 [facility] 03/11/23 10:17 Wound Center Nurse 1 #2- R BUTTOCK CLUSTER -Combined with other wound No -Current Size (cm) - Length 1.7 -Current Size (cm) - Width 1.8 -Current Size (cm) - Depth 0.1 -Total Square Cm 3.06 -Date of Last Picture (Recall this 03/11/23 field) -Photo Taken Yes -Epithelialization None Present -Tunneling No -Undermining/Tunneling No -Circular Undermining No -Exudate Amt Medium -Exudate Type Serosanguineous -Wound Margin Distinct, Outline Attached -Granulation Amt Medium (34-66%) -Granulation Quality Red -Slough/Fibrin Yes -Necrosis Amt Medium (34-66%) -Necrotic Tissue Type Adherent Slough -Texture (Yahaira-wound Skin Appearance) Assessed -Moisture (Yahaira-wound Skin Appearance) Assessed -Color (Yahaira-wound Skin Appearance) Assessed, Erythema -Temperature (Yahaira-wound Skin No Abnormality Appearance) (Pt Warm) -Tenderness on Palpation (Yahaira-wound No Skin Appearance) -Ulcer Cleansing Rinsed/ Irrigated with Saline -Foul Odor after Cleansing No -Anesthetic Used 5% Lidocaine Gel #1 L BUTTOCK -Combined with other wound No -Current Size (cm) - Length 1.3 -Current Size (cm) - Width 0.8 -Current Size (cm) - Depth 0.1 -Total Square Cm 1.04 -Date of Last Picture (Recall this 03/11/23 field) -Photo Taken Yes -Epithelialization None Present -Tunneling No -Undermining/Tunneling No -Circular Undermining No -Exudate Amt Medium -Exudate Type Serosanguineous -Wound Margin Flat & Intact -Granulation Amt Large (67-100%) -Granulation Quality Red -Slough/Fibrin Yes -Necrosis Amt Small (1-33%) -Necrotic Tissue Type Adherent Slough -Texture (Yahaira-wound Skin Appearance) Assessed -Moisture (Yahaira-wound Skin Appearance) Assessed -Color (Yahaira-wound Skin Appearance) Assessed, Erythema -Temperature (Yahaira-wound Skin No Abnormality Appearance) (Pt Warm) -Tenderness on Palpation (Yahaira-wound No Skin Appearance) -Ulcer Cleansing Rinsed/ Irrigated with Saline -Foul Odor after Cleansing No -Anesthetic Used 5% Lidocaine Gel WC - Nurse 2 - General Ulcer CM Notes Start: 03/11/23 10:15 Freq: Status: Active Protocol: Activity Type Activity Date Activity User E-sign Co-sign Detail Recorded Client Recorded Date Recorded By Document 03/11/23 10:49 [facility] [id number] 03/11/23 10:57 [facility] 03/11/23 10:49 Wound Center Nurse 2 #2- R BUTTOCK CLUSTER -Time 10:49 -Correct Patient Yes -Correct Side, Site, Position Yes -Correct Procedure Yes -Procedure Performed Yes -Type of Procedure Debridement -Clinical Debridement Subcutaneous -Tissue Removed Subcutaneous -Post Debridement (cm) - Length 2.0 -Post Debridement (cm) - Width 2.0 -Post Debridement (cm) - Depth 0.1 -Total Square (Post) (cm) 4.00 -Area of Debridement (cm) - Length 2.0 -Area of Debridement (cm) - Width 2.0 -Total Square (Area) (cm) 4.00 -Tunneling No -Undermining/Tunneling No -Circular Undermining No -Wound/Ulcer Outcome Not Healed -Ulcer Cleansing Rinsed/ Irrigated with Saline -Foul Odor after Cleansing No -Bioengineered Tissue No -Bleeding Controlled with Pressure -Treatment Response Procedure Tolerated Well -Offloading No -Debridement - Subq, 1st 20sq cm Yes #1 L BUTTOCK -Time 10:50 -Correct Patient Yes -Correct Side, Site, Position Yes -Correct Procedure Yes -Procedure Performed Yes -Type of Procedure Debridement -Clinical Debridement Subcutaneous -Tissue Removed Subcutaneous -Post Debridement (cm) - Length 1.5 -Post Debridement (cm) - Width 0.6 -Post Debridement (cm) - Depth 0.1 -Total Square (Post) (cm) 0.90 -Area of Debridement (cm) - Length 1.5 -Area of Debridement (cm) - Width 0.6 -Total Square (Area) (cm) 0.90 -Tunneling No -Undermining/Tunneling No -Circular Undermining No -Wound/Ulcer Outcome Not Healed -Ulcer Cleansing Rinsed/ Irrigated with Saline -Foul Odor after Cleansing No -Bioengineered Tissue No -Bleeding Controlled with Pressure -Treatment Response Procedure Tolerated Well -Offloading No -Debridement - Subq, 1st 20sq cm No Pain Scale: 0-10 Numeric Is Patient Pain Free? Yes - Nurse 3 - General Ulcer D/C NN Start: 03/11/23 10:15 Freq: Status: Active Protocol: Activity Type Activity Date Activity User E-sign Co-sign Detail Recorded Client Recorded Date Recorded By Document 03/11/23 11:06 [facility] [id number] 03/11/23 11:08 [facility] 03/11/23 11:06 Wound Care Center Nurse 3 #2- R BUTTOCK CLUSTER -Ulcer Cleansing Rinsed/ Irrigated with Saline -Foul Odor after Cleansing No -Primary Dressing Applied Mepilex Border, NonAdherent Contact Layer, Promogran -Other Dressing PER RB RN -Mepilex Border 2 -Promogran 4 #1 L BUTTOCK -Ulcer Cleansing Rinsed/ Irrigated with Saline -Foul Odor after Cleansing No -Primary Dressing Applied Mepilex Border, NonAdherent Contact Layer, Promogran -Other Dressing DRSG PER RB RN -Mepilex Border 0 -Promogran 0 Treatment Response Procedure Tolerated Well Pain Scale: 0-10 Numeric Is Patient Pain Free? Yes WC - Visit Discharge Discharge Condition Stable Ambulatory Status Ambulatory, Walker Transportation Private Auto Accompanied by Additional Wound Wound debrided: Right buttock cluster Wound Grade/Stage: Stage II Type of Debridement: Excisional debridement Anesthesia Used: 5% Lidocaine Gel Depth: Down to and including healthy tissue and in the subcutaneous layer Percentage of wound debrided: 100 Instrument Used: 3mm curette Tissue Removed: Slough and devitalized tissue Severity: Fat Layer Exposed Amount of bleeding with debridement: Mild Bleeding Controlled with: Pressure Patient tolerated procedure: Patient tolerated procedure well Charges/Coding Visit Charges Office Visits / Consults: [id number] OV L3 New Procedures Integumentary [id number]: [id number] Dahlia subq tissue 20 sq cm/< Assessment/Plan Assessment/Plan (1) Pressure ulcer of right buttock, stage 2: CODE(S): L89.312 - Pressure ulcer of right buttock, stage 2 (2) Pressure ulcer of left buttock, stage 2: CODE(S): L89.322 - Pressure ulcer of left buttock, stage 2 (3) DM type 2 (diabetes mellitus, type 2): CODE(S): E11.9 - Type 2 diabetes mellitus without complications PLAN: Plan Debridement done as documented above, procedure was well-tolerated. Good granulation tissue and no clinical concerns for infection. Start Promogran, cover with Adaptic and foam dressing, change daily to twice daily depending on drainage. Continue offloading, optimal protein intake and diabetes control. Her questions were answered and she was advised to call with any further questions or concerns. Follow-up in a week or sooner if needed.
== END 2023-03-15 23:59 | disposition home or self-care (01) ==
LOC: WC 09:43
PROVIDERS: PCP Family Medicine; Referring Provider Family Medicine; Visit Provider Internal Medicine
DX: L89.322 Pressure ulcer of left buttock, stage 2 (principal); L89.312 Pressure ulcer of right buttock, stage 2; E11.9 Type 2 diabetes mellitus without complications; Z95.1 Presence of aortocoronary bypass graft; Z79.84 Long term (current) use of oral hypoglycemic drugs; E78.5 Hyperlipidemia, unspecified; I10 Essential (primary) hypertension; Z79.899 Other long term (current) drug therapy
CPT/HCPCS: 11042; 99203; G0463

== ENCOUNTER → 2023-03-12 | Outpatient (CLI) | payer MEDICARE, SELFPAY ==
[2023-03-12 07:18] LABS: Hematocrit 38.6 % (37-47); Hemoglobin 11.7 g/dL (12.0-15.0); Mean Corp Hgb Conc 30.3 g/dL (32-36); Mean Corpuscular Hgb 23.5 pg (27.0-32.0); Mean Corpuscular Volume 77.5 fL (81-99); Mean Platelet Vol. 9.6 fl (6.2-12.0); Platelet Count 444 K/mm3 (150-450); RBC Distribution Width CV 16.3 % (11.6-14.6); RBC Distribution Width SD 45.8 fl (35.1-43.9); Red Blood Count 4.98 M/mm3 (4.2-5.4); White Blood Count 9.6 K/mm3 (4.4-11.0)
[2023-03-12 07:37] LABS: Anion Gap 8 (5-15); BUN 20 mg/dL (7-18); BUN/Creat Ratio 23.9 RATIO (10-20); Calcium,Total 9.1 mg/dL (8.5-10.1); Chloride 102 mmol/L (98-107); Creatinine, Serum 0.84 mg/dL (0.55-1.02); EST Glomerular Filtration Rate 71 mL/min (>60); Est Glom Filt Rate - Afr Amer 86 mL/min (>60); Glucose 151 mg/dL (74-106); Potassium 3.8 mmol/L (3.5-5.1); Sodium Level 138 mmol/L (136-145)
--- NOTE | 2023-03-12 12:00 | EKG12_ITS ---
Test Reason : PREOP Blood Pressure : / mmHG Vent. Rate : 086 BPM Atrial Rate : 086 BPM P-R Int : 148 ms QRS Dur : 084 ms QT Int : 388 ms P-R-T Axes : 025 -25 080 degrees QTc Int : 464 ms Normal sinus rhythm Inferior infarct , age undetermined Abnormal ECG Confirmed by JANET CHANEY, JAMES ([id number]), telegraph editor KAELA VAZ ([id number]) on 03/13/2023 7:39:55 AM Referred By: Isai Ornelas Confirmed By:JAMES GNOZALES MD
[2023-03-12 18:29] LABS: Hemoglobin A1c 7.6 % (3.8-5.6)
== END | disposition home or self-care (01) ==
PROVIDERS: PCP Family Medicine; Referring Provider Orthopaedic Surgery; Visit Provider Orthopaedic Surgery
DX: Z01.810 Encounter for preprocedural cardiovascular examination (principal)
CPT/HCPCS: 36415; 80048; 83036; 85027; 93005

== ENCOUNTER → 2023-03-15 | Outpatient (CLI) | payer MEDICARE, SELFPAY ==
[2023-03-15 07:40] LABS: Hemoglobin A1c 7.5 % (3.8-5.6)
== END | disposition home or self-care (01) ==
LOC: LAB.FUTURE 06:52 → LAB 06:58
PROVIDERS: PCP Family Medicine; Referring Provider Orthopaedic Surgery; Visit Provider Orthopaedic Surgery
DX: E11.9 Type 2 diabetes mellitus without complications (principal)
CPT/HCPCS: 36415; 83036

== ENCOUNTER → 2023-04-02 | Outpatient (CLI) | payer MEDICARE, SELFPAY ==
--- NOTE | 2023-04-02 08:53 | VDLE_ITS ---
Reason For Study: LLE PAin RIGHT LEFT CFV is compressible, spontaneous, phasic, CFV is compressible, spontaneous, phasic, competent and demonstrates normal competent, and demonstrates normal augmentation. augmentation. Procedure FV is compressible, spontaneous, phasic, This is a venous duplex using B-mode, color competent and demonstrates normal flow and spectral Doppler. augmentation. Exam performed in department. POP V is compressible, spontaneous, phasic, The exam was diagnostic. competent and demonstrates normal A preliminary report was called and/or faxed augmentation. to [facility]. T/P Trunk is compressible. PTV is compressible. LT PerV is compressible. LT GSV - HX of [place] for CABG. VL/Venous Duplex US, Unilateral Interpretation Summary Deep veins of the left lower extremity are patent and compressible segmentally. There is no evidence of left lower extremity deep vein thrombosis. Valvular competence appears intac t within the proximal deep venous system on the left . The left great saphenous vein is absent, havin g been previously harvested. Ordering Physician: Grayson Smith Referring Physician: Kali Dueñas Performed By: Bandar Powers RVT
== END | disposition home or self-care (01) ==
LOC: CVS 08:50
PROVIDERS: PCP Family Medicine; Referring Provider Physician Assistant Surgical; Visit Provider Physician Assistant Surgical
DX: R22.42 Localized swelling, mass and lump, left lower limb (principal)
CPT/HCPCS: 93971

== ENCOUNTER 2023-04-08 10:30 | Outpatient (RCR) | payer MEDICARE, SELFPAY ==
[2023-03-16 00:43] VITALS: BP 176/83; PULSE 87; RESP 16; TEMP 36.1; BMI 31.8
[2023-03-18 11:08] VITALS: BP 162/72; PULSE 90; RESP 16; TEMP 36.3; BMI 31.8
--- NOTE | 2023-03-18 12:31 | PN.PCM_ITS ---
History of Present Illness Date of Service: 03/18/23 Chief Complaint: Bilateral Buttock Ulcer History of Wound: Ms. Baron is a 72-year-old referred to the wound center due to nonhealing bilateral buttock ulcers. 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 Sitting a lot because she was advised not to lay in bed. She states that she has used several products but over the last 3 weeks, started using hydrogel which was prescribed by her PCP. Some improvement with hydrogel. She states that she has also been making extra effort to keep the area clean and avoid pressure to the area. History of diabetes mellitus and her most recent A1c was 7.4. Takes a protein supplement at least daily and tries to optimize her protein intake as well. She generally feels well. No nausea, vomiting, change in bowel habits, chills or fever. Progress of Wound: No new concerns at this time. Some improvement noted. Has been trying to offload as much as possible. Objective Data Objective Data Vital Signs: Vital Signs Temp Pulse Resp BP O2 Del Method 97.3 F L 90 16 162/72 H Room Air 03/18/23 11:08 03/18/23 11:08 03/18/23 11:08 03/18/23 11:08 03/18/23 11:08 Oxygen Delivery Method Room Air Weight: 180 lb Body Mass Index (BMI) 31.8 Charges/Coding Procedures Integumentary 111xxx-113xx: 30359 Dahlia subq tissue 20 sq cm/< Physical Exam Const alert, oriented x3 and no apparent distress General Appearance: cooperative, comfortable and well kempt HEENT normocephalic and head/scalp atraumatic Eyes EOMs intact bilaterally Neck full ROM and supple General: normal visual inspection Resp normal respiratory effort Effort and Inspection: able to speak in complete sentences Cardio regular rate and regular rhythm GI soft to palpation Extremity no pedal edema Skin Wounds: wounds noted Neuro oriented x3, CN's II-XII intact bilaterally, moves all extremities and no focal motor deficits Psych mental status grossly normal, thought process normal, cooperative, affect normal and speech normal Debridement Note Debridement Note Wound debrided: Left buttock Wound Grade/Stage: Stage II Type of Debridement: Excisional debridement Anesthesia Used: 4% Lidocaine Solution Depth: Down to and including healthy tissue and in the subcutaneous layer Percentage of wound debrided: 100 Instrument Used: 3mm curette Tissue Removed: Slough and devitalized tissue Severity: Fat Layer Exposed Amount of bleeding with debridement: Mild Bleeding Controlled with: Pressure Patient tolerated procedure: Patient tolerated procedure well Post-Debridement Measurements and Additional Note: Post-Debridement Measurements/Treatment [facility] Nurse 1 - General Ulcer Assessment Start: 03/18/23 11:08 Freq: Status: Active Protocol: SOM Activity Type Activity Date Activity User E-sign Co-sign Detail Recorded Client Recorded Date Recorded By Document 03/18/23 11:08 [facility] [id number] 03/18/23 11:20 [facility] 03/18/23 11:08 - Today's Visit Information Type of service Follow-up Visit (Physician/UNDER CUTTER ) Arrival Mode Ambulatory, Walker Transfer Assistance None Accompanied by Patient Identification Verified (Name & Yes ) Patient Requires Transmission-Based No Precautions Height and Weight Body Mass Index (BMI) 31.8 BMI Classification Obese Vital Signs Temperature (97.8 F-99.1 F) 97.3 F L Temperature Source Temporal Pulse Rate (60-100) 90 Pulse Location Monitor Respiratory Rate (12-18) 16 Respiratory rate source Observation Oxygen Delivery Method Room Air Blood Pressure (90/60-120/80) 162/72 H Blood Pressure Mean (mm Hg) 102 Source Monitor Position Sitting Blood Pressure Location Right Arm History Since Last Visit- (Skip if this is Patient's initial visit) Have you changed medications since your No last visit? Any new allergies or adverse reactions No Had a fall/change in ADL's that may No increase risk of falls Signs or symptoms of abuse and/or No neglect since last visit Have you been in the hospital since your Yes last visit? Has dressing in place as prescribed Yes Has compression in place as prescribed N/A Has offloadiing in place as prescribed N/A Experienced any changes in pain level or No management Left Footwear Regular Shoe Right Footwear Regular Shoe Pain Scale: 0-10 Numeric Is Patient Pain Free? Yes [facility] Nurse 1 - General Ulcer Measurement Start: 03/18/23 11:08 Freq: Status: Active Protocol: Activity Type Activity Date Activity User E-sign Co-sign Detail Recorded Client Recorded Date Recorded By Document 03/18/23 11:08 [facility] [id number] 03/18/23 11:20 [facility] 03/18/23 11:08 Wound Center Nurse 1 #2- R BUTTOCK CLUSTER -Combined with other wound No -Current Size (cm) - Length 1.6 -Current Size (cm) - Width 1.4 -Current Size (cm) - Depth 0.1 -Total Square Cm 2.24 -Date of Last Picture (Recall this 03/18/23 field) -Photo Taken Yes -Epithelialization Medium 34-66% -Tunneling No -Undermining/Tunneling No -Circular Undermining No -Exudate Amt Medium -Exudate Type Serosanguineous -Wound Margin Flat & Intact -Granulation Amt Medium (34-66%) -Granulation Quality Red -Slough/Fibrin Yes -Necrosis Amt Medium (34-66%) -Necrotic Tissue Type Adherent Slough -Texture (Yahaira-wound Skin Appearance) Assessed, Scarring -Moisture (Yahaira-wound Skin Appearance) Assessed -Color (Yahaira-wound Skin Appearance) Assessed, Erythema -Temperature (Yahaira-wound Skin No Abnormality Appearance) (Pt Warm) -Tenderness on Palpation (Yahaira-wound No Skin Appearance) -Ulcer Cleansing Rinsed/ Irrigated with Saline -Foul Odor after Cleansing No -Anesthetic Used 5% Lidocaine Gel #1 L BUTTOCK -Combined with other wound No -Current Size (cm) - Length 1.1 -Current Size (cm) - Width 0.4 -Current Size (cm) - Depth 0.1 -Total Square Cm 0.44 -Date of Last Picture (Recall this 03/18/23 field) -Photo Taken Yes -Epithelialization Small 1-33% -Tunneling No -Undermining/Tunneling No -Circular Undermining No -Exudate Amt Medium -Exudate Type Serosanguineous -Wound Margin Distinct, Outline Attached -Granulation Amt Medium (34-66%) -Granulation Quality Red -Slough/Fibrin Yes -Necrosis Amt Medium (34-66%) -Necrotic Tissue Type Adherent Slough -Texture (Yahaira-wound Skin Appearance) Assessed, Scarring -Moisture (Yahaira-wound Skin Appearance) Assessed -Color (Yahaira-wound Skin Appearance) Assessed, Erythema -Temperature (Yahaira-wound Skin No Abnormality Appearance) (Pt Warm) -Tenderness on Palpation (Yahaira-wound No Skin Appearance) -Ulcer Cleansing Rinsed/ Irrigated with Saline -Foul Odor after Cleansing No -Anesthetic Used 5% Lidocaine Gel WC - Nurse 2 - General Ulcer CM Notes Start: 08/03/23 11:08 Freq: Status: Active Protocol: Activity Type Activity Date Activity User E-sign Co-sign Detail Recorded Client Recorded Date Recorded By Document 03/18/23 11:34 MW [id number] 03/18/23 11:39 MW 03/18/23 11:34 Wound Center Nurse 2 #2- R BUTTOCK CLUSTER -Time 11:34 -Correct Patient Yes -Correct Side, Site, Position Yes -Correct Procedure Yes -Procedure Performed Yes -Type of Procedure Debridement -Clinical Debridement Subcutaneous -Tissue Removed Subcutaneous -Post Debridement (cm) - Length 1.1 -Post Debridement (cm) - Width 0.3 -Post Debridement (cm) - Depth 0.1 -Total Square (Post) (cm) 0.33 -Area of Debridement (cm) - Length 1.1 -Area of Debridement (cm) - Width 0.3 -Total Square (Area) (cm) 0.33 -Tunneling No -Undermining/Tunneling No -Circular Undermining No -Wound/Ulcer Outcome Not Healed -Ulcer Cleansing Rinsed/ Irrigated with Saline -Foul Odor after Cleansing No -Bioengineered Tissue No -Bleeding Controlled with Pressure -Treatment Response Procedure Tolerated Well -Offloading No -Debridement - Subq, 1st 20sq cm Yes #1 L BUTTOCK -Time 11:35 -Correct Patient Yes -Correct Side, Site, Position Yes -Correct Procedure Yes -Procedure Performed Yes -Type of Procedure Debridement -Clinical Debridement Subcutaneous -Tissue Removed Subcutaneous -Post Debridement (cm) - Length 1.2 -Post Debridement (cm) - Width 0.3 -Post Debridement (cm) - Depth 0.1 -Total Square (Post) (cm) 0.36 -Area of Debridement (cm) - Length 1.2 -Area of Debridement (cm) - Width 0.3 -Total Square (Area) (cm) 0.36 -Tunneling No -Undermining/Tunneling No -Circular Undermining No -Wound/Ulcer Outcome Not Healed -Ulcer Cleansing Rinsed/ Irrigated with Saline -Foul Odor after Cleansing No -Bioengineered Tissue No -Bleeding Controlled with Pressure -Treatment Response Procedure Tolerated Well -Offloading No -Debridement - Subq, 1st 20sq cm No Pain Scale: 0-10 Numeric Is Patient Pain Free? Yes WC - Nurse 3 - General Ulcer D/C NN Start: 03/18/23 11:08 Freq: Status: Active Protocol: Activity Type Activity Date Activity User E-sign Co-sign Detail Recorded Client Recorded Date Recorded By Document 03/18/23 11:43 MW [id number] 03/18/23 11:44 MW 03/18/23 11:43 Wound Care Center Nurse 3 #2- R BUTTOCK CLUSTER -Ulcer Cleansing Rinsed/ Irrigated with Saline -Foul Odor after Cleansing No -Negative Pressure Wound Therapy N/A -Primary Dressing Applied Mepilex Border, NonAdherent Contact Layer, Promogran -Mepilex Border 1 -Promogran 1 #1 L BUTTOCK -Ulcer Cleansing Rinsed/ Irrigated with Saline -Foul Odor after Cleansing No -Negative Pressure Wound Therapy N/A -Other Dressing promogran, mepilex Treatment Response Procedure Tolerated Well Pain Scale: 0-10 Numeric Is Patient Pain Free? Yes Teaching: Wound Center Dressing Your Wound -Person Taught Patient,Family -Teaching Method Discussion, Demonstration -Response to teaching Verbalize understanding WC - Visit Discharge Discharge Condition Stable Ambulatory Status Ambulatory, Walker Transportation Private Auto Accompanied by Medication Reconcilliation completed & No provided to patient/care provider Clinical Summary of Care Provided Yes Additional Wound Wound debrided: Right buttock cluster Wound Grade/Stage: Stage II Type of Debridement: Excisional debridement Anesthesia Used: 5% Lidocaine Gel Depth: Down to and including healthy tissue and in the subcutaneous layer Percentage of wound debrided: 100 Instrument Used: 3mm curette Tissue Removed: Slough and devitalized tissue Severity: Fat Layer Exposed Amount of bleeding with debridement: Mild Bleeding Controlled with: Pressure Patient tolerated procedure: Patient tolerated procedure well Assessment/Plan Assessment/Plan (1) Pressure ulcer of right buttock, stage 2: CODE(S): L89.312 - Pressure ulcer of right buttock, stage 2 (2) Pressure ulcer of left buttock, stage 2: CODE(S): L89.322 - Pressure ulcer of left buttock, stage 2 (3) DM type 2 (diabetes mellitus, type 2): CODE(S): E11.9 - Type 2 diabetes mellitus without complications PLAN: Plan Debridement done as documented above, procedure was well-tolerated. Some improvement noted. Continue Promogran, cover with Adaptic and foam dressing, change daily to twice daily depending on drainage. Continue offloading, optimal protein intake and diabetes control. Her questions were answered and she was advised to call with any further questions or concerns. Follow-up in a week or sooner if needed.
[2023-03-25 10:52] VITALS: BP 151/70; PULSE 82; RESP 16; TEMP 36.1; BMI 31.8
--- NOTE | 2023-03-25 13:01 | PN.PCM_ITS ---
History of Present Illness Date of Service: 03/25/23 Chief Complaint: Bilateral Buttock Ulcer History of Wound: Ms. Baron is a 72-year-old referred to the wound center due to nonhealing bilateral buttock ulcers. 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 Sitting a lot because she was advised not to lay in bed. She states that she has used several products but over the last 3 weeks, started using hydrogel which was prescribed by her PCP. Some improvement with hydrogel. She states that she has also been making extra effort to keep the area clean and avoid pressure to the area. History of diabetes mellitus and her most recent A1c was 7.4. Takes a protein supplement at least daily and tries to optimize her protein intake as well. She generally feels well. No nausea, vomiting, change in bowel habits, chills or fever. Progress of Wound: No new concerns at this time. Right is largely healed, left with minimal area left. Objective Data Objective Data Vital Signs: Vital Signs Temp Pulse Resp BP O2 Del Method 97 F L 82 16 151/70 H Room Air 03/25/23 10:52 03/25/23 10:52 03/25/23 10:52 03/25/23 10:52 03/25/23 10:52 Oxygen Delivery Method Room Air Weight: 180 lb Body Mass Index (BMI) 31.8 Charges/Coding Procedures Integumentary 111xxx-113xx: 10685 Dahlia subq tissue 20 sq cm/< Physical Exam Const alert, oriented x3 and no apparent distress General Appearance: cooperative, comfortable and well kempt HEENT normocephalic and head/scalp atraumatic Eyes EOMs intact bilaterally Neck full ROM and supple General: normal visual inspection Resp normal respiratory effort Effort and Inspection: able to speak in complete sentences Cardio regular rate and regular rhythm GI soft to palpation Extremity no pedal edema Skin Wounds: wounds noted Neuro oriented x3, CN's II-XII intact bilaterally, moves all extremities and no focal motor deficits Psych mental status grossly normal, thought process normal, cooperative, affect normal and speech normal Debridement Note Debridement Note Wound debrided: Left buttock Wound Grade/Stage: Stage II Type of Debridement: Excisional debridement Anesthesia Used: 4% Lidocaine Solution Depth: Down to and including healthy tissue and in the subcutaneous layer Percentage of wound debrided: 100 Instrument Used: 3mm curette Tissue Removed: Slough and devitalized tissue Severity: Fat Layer Exposed Amount of bleeding with debridement: Mild Bleeding Controlled with: Pressure Patient tolerated procedure: Patient tolerated procedure well Post-Debridement Measurements and Additional Note: Post-Debridement Measurements/Treatment - Nurse 1 - General Ulcer Assessment Start: 03/18/23 11:08 Freq: Status: Active Protocol: JUAN [email or web address] Activity Type Activity Date Activity User E-sign Co-sign Detail Recorded Client Recorded Date Recorded By Document 03/18/23 11:08 [facility] [id number] 03/18/23 11:20 BM Document 03/25/23 10:52 [facility] [id number] 03/25/23 11:02 BMF 03/18/23 03/25/23 11:08 10:52 - Today's Visit Information Type of service Follow-up Visit Follow-up Visit (Physician/REGIONAL RECRUITER (Physician/REGIONAL RECRUITER ) ) Arrival Mode Ambulatory, Ambulatory, Walker Walker Transfer Assistance None None Transfer Assist (Other) Accompanied by Patient Identification Verified (Name & Yes Yes ) Patient Requires Transmission-Based No No Precautions Height and Weight Body Mass Index (BMI) 31.8 31.8 BMI Classification Obese Obese Vital Signs Temperature (97.8 F-99.1 F) 97.3 F L 97 F L Temperature Source Temporal Temporal Pulse Rate (60-100) 90 82 Pulse Location Monitor Monitor Respiratory Rate (12-18) 16 16 Respiratory rate source Observation Observation Oxygen Delivery Method Room Air Room Air Blood Pressure (90/60-120/80) 162/72 H 151/70 H Blood Pressure Mean (mm Hg) 102 97 Source Monitor Monitor Position Sitting Sitting Blood Pressure Location Right Arm Right Arm History Since Last Visit- (Skip if this is Patient's initial visit) Have you changed medications since your No No last visit? Any new allergies or adverse reactions No No Had a fall/change in ADL's that may No No increase risk of falls Signs or symptoms of abuse and/or No No neglect since last visit Have you been in the hospital since your Yes No last visit? Has dressing in place as prescribed Yes Yes Has compression in place as prescribed N/A N/A Has offloadiing in place as prescribed N/A N/A Experienced any changes in pain level or No No management Left Footwear Regular Shoe Regular Shoe Right Footwear Regular Shoe Regular Shoe Pain Scale: 0-10 Numeric Is Patient Pain Free? Yes Yes WC - Nurse 1 - General Ulcer Measurement Start: 03/18/23 11:08 Freq: Status: Active Protocol: Activity Type Activity Date Activity User E-sign Co-sign Detail Recorded Client Recorded Date Recorded By Document 03/18/23 11:08 [facility] [id number] 03/18/23 11:20 BM Document 03/25/23 10:52 [facility] [id number] 03/25/23 11:02 BMF 03/18/23 03/25/23 11:08 10:52 Wound Center Nurse 1 #2- R BUTTOCK CLUSTER -Combined with other wound No No -Current Size (cm) - Length 1.6 0 -Current Size (cm) - Width 1.4 0 -Current Size (cm) - Depth 0.1 0 -Total Square Cm 2.24 0 -Date of Last Picture (Recall this 03/18/23 03/25/23 field) -Photo Taken Yes Yes -Epithelialization Medium 34-66% Large 67-100% -Tunneling No -Undermining/Tunneling No -Circular Undermining No -Exudate Amt Medium None Present -Exudate Type Serosanguineous -Wound Margin Flat & Intact -Granulation Amt Medium (34-66%) -Granulation Quality Red -Slough/Fibrin Yes -Necrosis Amt Medium (34-66%) -Necrotic Tissue Type Adherent Slough -Texture (Yahaira-wound Skin Appearance) Assessed, Assessed, Scarring Scarring -Moisture (Yahaira-wound Skin Appearance) Assessed Assessed -Color (Yahaira-wound Skin Appearance) Assessed, Assessed Erythema -Temperature (Yahaira-wound Skin No Abnormality No Abnormality Appearance) (Pt Warm) (Pt Warm) -Tenderness on Palpation (Yahaira-wound No No Skin Appearance) -Ulcer Cleansing Rinsed/ Rinsed/ Irrigated with Irrigated with Saline Saline -Foul Odor after Cleansing No No -Anesthetic Used 5% Lidocaine 5% Lidocaine Gel Gel #1 L BUTTOCK -Combined with other wound No No -Current Size (cm) - Length 1.1 0.1 -Current Size (cm) - Width 0.4 0.1 -Current Size (cm) - Depth 0.1 0.1 -Total Square Cm 0.44 0.01 -Date of Last Picture (Recall this 03/18/23 03/25/23 field) -Photo Taken Yes Yes -Epithelialization Small 1-33% Large 67-100% -Tunneling No No -Undermining/Tunneling No No -Circular Undermining No No -Exudate Amt Medium None Present -Exudate Type Serosanguineous -Wound Margin Distinct, Distinct, Outline Outline Attached Attached -Granulation Amt Medium (34-66%) -Granulation Quality Red -Slough/Fibrin Yes -Necrosis Amt Medium (34-66%) -Necrotic Tissue Type Adherent Slough -Texture (Yahaira-wound Skin Appearance) Assessed, Assessed, Scarring Scarring -Moisture (Yahaira-wound Skin Appearance) Assessed Assessed -Color (Yahaira-wound Skin Appearance) Assessed, Assessed Erythema -Temperature (Yahaira-wound Skin No Abnormality No Abnormality Appearance) (Pt Warm) (Pt Warm) -Tenderness on Palpation (Yahaira-wound No No Skin Appearance) -Ulcer Cleansing Rinsed/ Rinsed/ Irrigated with Irrigated with Saline Saline -Foul Odor after Cleansing No No -Anesthetic Used 5% Lidocaine 5% Lidocaine Gel Gel WC - Nurse 2 - General Ulcer CM Notes Start: 03/18/23 11:08 Freq: Status: Active Protocol: Activity Type Activity Date Activity User E-sign Co-sign Detail Recorded Client Recorded Date Recorded By Document 03/18/23 11:34 MW [id number] 03/18/23 11:39 MW Document 03/25/23 11:10 MW [id number] 03/25/23 11:12 MW 03/18/23 03/25/23 11:34 11:10 Wound Center Nurse 2 #2- R BUTTOCK CLUSTER -Time 11:34 11:11 -Correct Patient Yes Yes -Correct Side, Site, Position Yes Yes -Correct Procedure Yes Yes -Procedure Performed Yes No -Type of Procedure Debridement -Clinical Debridement Subcutaneous -Tissue Removed Subcutaneous -Post Debridement (cm) - Length 1.1 0.1 -Post Debridement (cm) - Width 0.3 0.1 -Post Debridement (cm) - Depth 0.1 0.1 -Total Square (Post) (cm) 0.33 0.01 -Area of Debridement (cm) - Length 1.1 -Area of Debridement (cm) - Width 0.3 -Total Square (Area) (cm) 0.33 -Tunneling No No -Undermining/Tunneling No -Circular Undermining No No -Wound/Ulcer Outcome Not Healed Not Healed -Ulcer Cleansing Rinsed/ Irrigated with Saline -Foul Odor after Cleansing No -Bioengineered Tissue No -Bleeding Controlled with Pressure -Treatment Response Procedure Tolerated Well -Offloading No -Debridement - Subq, 1st 20sq cm Yes #1 L BUTTOCK -Time 11:35 11:11 -Correct Patient Yes Yes -Correct Side, Site, Position Yes Yes -Correct Procedure Yes Yes -Procedure Performed Yes Yes -Type of Procedure Debridement Debridement -Clinical Debridement Subcutaneous Epidermis / Dermis -Tissue Removed Subcutaneous Epidermis -Post Debridement (cm) - Length 1.2 0.9 -Post Debridement (cm) - Width 0.3 0.2 -Post Debridement (cm) - Depth 0.1 0.1 -Total Square (Post) (cm) 0.36 0.18 -Area of Debridement (cm) - Length 1.2 0.9 -Area of Debridement (cm) - Width 0.3 0.2 -Total Square (Area) (cm) 0.36 0.18 -Tunneling No No -Undermining/Tunneling No No -Circular Undermining No No -Wound/Ulcer Outcome Not Healed Not Healed -Ulcer Cleansing Rinsed/ Rinsed/ Irrigated with Irrigated with Saline Saline -Foul Odor after Cleansing No No -Bioengineered Tissue No No -Bleeding Controlled with Pressure Pressure -Treatment Response Procedure Procedure Tolerated Well Tolerated Well -Offloading No No -Debridement - Open, 1st 20sq cm Yes -Debridement - Subq, 1st 20sq cm No Pain Scale: 0-10 Numeric Is Patient Pain Free? Yes Yes - Nurse 3 - General Ulcer D/C NN Start: 03/18/23 11:08 Freq: Status: Active Protocol: Activity Type Activity Date Activity User E-sign Co-sign Detail Recorded Client Recorded Date Recorded By Document 03/18/23 11:43 MW [id number] 03/18/23 11:44 MW Document 03/25/23 11:24 DL [id number] 03/25/23 11:25 DL 03/18/23 03/25/23 11:43 11:24 Wound Care Center Nurse 3 #2- R BUTTOCK CLUSTER -Ulcer Cleansing Rinsed/ Rinsed/ Irrigated with Irrigated with Saline Saline -Foul Odor after Cleansing No -Negative Pressure Wound Therapy N/A -Primary Dressing Applied Mepilex Border, Mepilex Border, NonAdherent NonAdherent Contact Layer, Contact Layer Promogran -Mepilex Border 1 1 -Promogran 1 #1 L BUTTOCK -Ulcer Cleansing Rinsed/ Rinsed/ Irrigated with Irrigated with Saline Saline -Foul Odor after Cleansing No No -Negative Pressure Wound Therapy N/A -Primary Dressing Applied NonAdherent Contact Layer, Promogran -Other Dressing promogran, mepilex mepilex -Promogran 1 Treatment Response Procedure Procedure Tolerated Well Tolerated Well Pain Scale: 0-10 Numeric Is Patient Pain Free? Yes Yes Teaching: Wound Center Dressing Your Wound -Person Taught Patient,Family -Teaching Method Discussion, Demonstration -Response to teaching Verbalize understanding WC - Visit Discharge Discharge Condition Stable Stable Ambulatory Status Ambulatory, Ambulatory Walker Transportation Private Auto Private Auto Accompanied by Medication Reconcilliation completed & No provided to patient/care provider Clinical Summary of Care Provided Yes Assessment/Plan Assessment/Plan (1) Pressure ulcer of right buttock, stage 2: CODE(S): L89.312 - Pressure ulcer of right buttock, stage 2 (2) Pressure ulcer of left buttock, stage 2: CODE(S): L89.322 - Pressure ulcer of left buttock, stage 2 (3) DM type 2 (diabetes mellitus, type 2): CODE(S): E11.9 - Type 2 diabetes mellitus without complications PLAN: Plan Debridement done as documented above, procedure was well-tolerated. Right is healed, left with minimal area left. Continue Promogran, cover with Adaptic and foam dressing, change daily to twice daily depending on drainage. Continue offloading, optimal protein intake and diabetes control. Her questions were answered and she was advised to call with any further questions or concerns. Follow-up in 2 weeks or sooner if needed. This note was generated with [employer] software. It may contain incorrect words, spelling, and punctuation that were not noted in checking the note before signing.
[2023-04-08 10:42] VITALS: BP 156/71; PULSE 89; RESP 16; TEMP 36.3; BMI 31.8
--- NOTE | 2023-04-08 12:43 | PCM.WC.PN ---
History of Present Illness Date of Service: 04/08/23 Chief Complaint: Bilateral Buttock Ulcer History of Wound: Ms. Baron is a 72-year-old referred to the wound center due to nonhealing bilateral buttock ulcers. 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 Sitting a lot because she was advised not to lay in bed. She states that she has used several products but over the last 3 weeks, started using hydrogel which was prescribed by her PCP. Some improvement with hydrogel. She states that she has also been making extra effort to keep the area clean and avoid pressure to the area. History of diabetes mellitus and her most recent A1c was 7.4. Takes a protein supplement at least daily and tries to optimize her protein intake as well. She generally feels well. No nausea, vomiting, change in bowel habits, chills or fever. Progress of Wound: No new concerns at this time. Healed. Objective Data Objective Data Vital Signs: Vital Signs Temp Pulse Resp BP O2 Del Method 97.3 F L 89 16 156/71 H Room Air 04/08/23 10:42 04/08/23 10:42 04/08/23 10:42 04/08/23 10:42 04/08/23 10:42 Oxygen Delivery Method Room Air Weight: 180 lb Body Mass Index (BMI) 31.8 Charges/Coding Visit Charges Office Visits / Consults: 14840 OV L3 Est Physical Exam Const alert, oriented x3 and no apparent distress General Appearance: cooperative, comfortable and well kempt HEENT normocephalic and head/scalp atraumatic Eyes EOMs intact bilaterally Neck full ROM and supple General: normal visual inspection Resp normal respiratory effort Effort and Inspection: able to speak in complete sentences GI soft to palpation Extremity no pedal edema Neuro oriented x3, CN's II-XII intact bilaterally, moves all extremities and no focal motor deficits Psych mental status grossly normal, thought process normal, cooperative, affect normal and speech normal Debridement Note Debridement Note Post-Debridement Measurements and Additional Note: Post-Debridement Measurements/Treatment WC - Nurse 1 - General Ulcer Assessment Start: 03/18/23 11:08 Freq: Status: Active Protocol: JUAN [email or web address] Activity Type Activity Date Activity User E-sign Co-sign Detail Recorded Client Recorded Date Recorded By Document 03/18/23 11:08 [facility] [id number] 03/18/23 11:20 [facility] Document 03/25/23 10:52 [facility] [id number] 03/25/23 11:02 [facility] Document 04/08/23 10:42 [facility] [id number] 04/08/23 10:51 [facility] 03/18/23 03/25/23 04/08/23 11:08 10:52 10:42 - Today's Visit Information Type of service Follow-up Visit Follow-up Visit Follow-up Visit (Physician/UNDERGROUND HEAVY EQUIPMENT OPERATOR (Physician/UNDERGROUND HEAVY EQUIPMENT OPERATOR (Physician/UNDERGROUND HEAVY EQUIPMENT OPERATOR ) ) ) Arrival Mode Ambulatory, Ambulatory, Ambulatory Walker Walker Transfer Assistance None None None Transfer Assist (Other) Accompanied by Patient Identification Verified (Name & Yes Yes Yes ) Patient Requires Transmission-Based No No No Precautions Height and Weight Body Mass Index (BMI) 31.8 31.8 31.8 BMI Classification Obese Obese Obese Vital Signs Temperature (97.8 F-99.1 F) 97.3 F L 97 F L 97.3 F L Temperature Source Temporal Temporal Temporal Pulse Rate (60-100) 90 82 89 Pulse Location Monitor Monitor Monitor Respiratory Rate (12-18) 16 16 16 Respiratory rate source Observation Observation Observation Oxygen Delivery Method Room Air Room Air Room Air Blood Pressure (90/60-120/80) 162/72 H 151/70 H 156/71 H Blood Pressure Mean (mm Hg) 102 97 99 Source Monitor Monitor Monitor Position Sitting Sitting Sitting Blood Pressure Location Right Arm Right Arm Right Arm History Since Last Visit- (Skip if this is Patient's initial visit) Have you changed medications since your No No Yes last visit? Any new allergies or adverse reactions No No No Had a fall/change in ADL's that may No No No increase risk of falls Signs or symptoms of abuse and/or No No No neglect since last visit Have you been in the hospital since your Yes No No last visit? Has dressing in place as prescribed Yes Yes Yes Has compression in place as prescribed N/A N/A N/A Has offloadiing in place as prescribed N/A N/A N/A Experienced any changes in pain level or No No No management Left Footwear Regular Shoe Regular Shoe Regular Shoe Right Footwear Regular Shoe Regular Shoe Regular Shoe Pain Scale: 0-10 Numeric Is Patient Pain Free? Yes Yes Yes - Nurse 1 - General Ulcer Measurement Start: 03/18/23 11:08 Freq: Status: Active Protocol: Activity Type Activity Date Activity User E-sign Co-sign Detail Recorded Client Recorded Date Recorded By Document 03/18/23 11:08 [facility] [id number] 03/18/23 11:20 BM Document 03/25/23 10:52 [facility] [id number] 03/25/23 11:02 BM Document 04/08/23 10:42 [facility] [id number] 04/08/23 10:51 BM 03/18/23 03/25/23 04/08/23 11:08 10:52 10:42 Wound Center Nurse 1 #2- R BUTTOCK CLUSTER -Combined with other wound No No No -Current Size (cm) - Length 1.6 0 0.1 -Current Size (cm) - Width 1.4 0 0.1 -Current Size (cm) - Depth 0.1 0 0.1 -Total Square Cm 2.24 0 0.01 -Date of Last Picture (Recall this 03/18/23 03/25/23 04/08/23 field) -Photo Taken Yes Yes Yes -Epithelialization Medium 34-66% Large 67-100% Large 67-100% -Tunneling No -Undermining/Tunneling No -Circular Undermining No -Exudate Amt Medium None Present -Exudate Type Serosanguineous -Wound Margin Flat & Intact -Granulation Amt Medium (34-66%) -Granulation Quality Red -Slough/Fibrin Yes -Necrosis Amt Medium (34-66%) -Necrotic Tissue Type Adherent Slough -Texture (Yahaira-wound Skin Appearance) Assessed, Assessed, Assessed, Scarring Scarring Scarring -Moisture (Yahaira-wound Skin Appearance) Assessed Assessed Assessed -Color (Yahaira-wound Skin Appearance) Assessed, Assessed Assessed Erythema -Temperature (Yahaira-wound Skin No Abnormality No Abnormality No Abnormality Appearance) (Pt Warm) (Pt Warm) (Pt Warm) -Tenderness on Palpation (Yahaira-wound No No No Skin Appearance) -Ulcer Cleansing Rinsed/ Rinsed/ Irrigated with Irrigated with Saline Saline -Foul Odor after Cleansing No No -Anesthetic Used 5% Lidocaine 5% Lidocaine Gel Gel #1 L BUTTOCK -Combined with other wound No No No -Current Size (cm) - Length 1.1 0.1 0.1 -Current Size (cm) - Width 0.4 0.1 0.1 -Current Size (cm) - Depth 0.1 0.1 0.1 -Total Square Cm 0.44 0.01 0.01 -Date of Last Picture (Recall this 03/18/23 03/25/23 04/08/23 field) -Photo Taken Yes Yes Yes -Epithelialization Small 1-33% Large 67-100% Large 67-100% -Tunneling No No -Undermining/Tunneling No No -Circular Undermining No No -Exudate Amt Medium None Present -Exudate Type Serosanguineous -Wound Margin Distinct, Distinct, Outline Outline Attached Attached -Granulation Amt Medium (34-66%) -Granulation Quality Red -Slough/Fibrin Yes -Necrosis Amt Medium (34-66%) -Necrotic Tissue Type Adherent Slough -Texture (Yahaira-wound Skin Appearance) Assessed, Assessed, Assessed, Scarring Scarring Scarring -Moisture (Yahaira-wound Skin Appearance) Assessed Assessed Assessed -Color (Yahaira-wound Skin Appearance) Assessed, Assessed Assessed Erythema -Temperature (Yahaira-wound Skin No Abnormality No Abnormality No Abnormality Appearance) (Pt Warm) (Pt Warm) (Pt Warm) -Tenderness on Palpation (Yahaira-wound No No No Skin Appearance) -Ulcer Cleansing Rinsed/ Rinsed/ Irrigated with Irrigated with Saline Saline -Foul Odor after Cleansing No No -Anesthetic Used 5% Lidocaine 5% Lidocaine Gel Gel WC - Nurse 2 - General Ulcer CM Notes Start: 03/18/23 11:08 Freq: Status: Active Protocol: Activity Type Activity Date Activity User E-sign Co-sign Detail Recorded Client Recorded Date Recorded By Document 03/18/23 11:34 MW [id number] 03/18/23 11:39 MW Document 03/25/23 11:10 MW [id number] 03/25/23 11:12 MW Document 04/08/23 11:02 MW Desktop 04/08/23 11:04 MW 03/18/23 03/25/23 04/08/23 11:34 11:10 11:02 Wound Center Nurse 2 #2- R BUTTOCK CLUSTER -Time 11:34 11:11 11:03 -Correct Patient Yes Yes Yes -Correct Side, Site, Position Yes Yes Yes -Correct Procedure Yes Yes Yes -Procedure Performed Yes No No -Type of Procedure Debridement -Clinical Debridement Subcutaneous -Tissue Removed Subcutaneous -Post Debridement (cm) - Length 1.1 0.1 0 -Post Debridement (cm) - Width 0.3 0.1 0 -Post Debridement (cm) - Depth 0.1 0.1 0 -Total Square (Post) (cm) 0.33 0.01 0 -Area of Debridement (cm) - Length 1.1 -Area of Debridement (cm) - Width 0.3 -Total Square (Area) (cm) 0.33 -Tunneling No No -Undermining/Tunneling No -Circular Undermining No No -Wound/Ulcer Outcome Not Healed Not Healed Healed- Epithelialized -Ulcer Cleansing Rinsed/ Irrigated with Saline -Foul Odor after Cleansing No -Bioengineered Tissue No -Bleeding Controlled with Pressure -Treatment Response Procedure Tolerated Well -Offloading No -Debridement - Subq, 1st 20sq cm Yes #1 L BUTTOCK -Time 11:35 11:11 11:03 -Correct Patient Yes Yes Yes -Correct Side, Site, Position Yes Yes Yes -Correct Procedure Yes Yes Yes -Procedure Performed Yes Yes No -Type of Procedure Debridement Debridement -Clinical Debridement Subcutaneous Epidermis / Dermis -Tissue Removed Subcutaneous Epidermis -Post Debridement (cm) - Length 1.2 0.9 0 -Post Debridement (cm) - Width 0.3 0.2 0 -Post Debridement (cm) - Depth 0.1 0.1 0 -Total Square (Post) (cm) 0.36 0.18 0 -Area of Debridement (cm) - Length 1.2 0.9 -Area of Debridement (cm) - Width 0.3 0.2 -Total Square (Area) (cm) 0.36 0.18 -Tunneling No No -Undermining/Tunneling No No -Circular Undermining No No -Wound/Ulcer Outcome Not Healed Not Healed Healed- Epithelialized -Ulcer Cleansing Rinsed/ Rinsed/ Irrigated with Irrigated with Saline Saline -Foul Odor after Cleansing No No -Bioengineered Tissue No No -Bleeding Controlled with Pressure Pressure -Treatment Response Procedure Procedure Tolerated Well Tolerated Well -Offloading No No -Debridement - Open, 1st 20sq cm Yes -Debridement - Subq, 1st 20sq cm No Pain Scale: 0-10 Numeric Is Patient Pain Free? Yes Yes Yes WC - Nurse 3 - General Ulcer D/C NN Start: 03/18/23 11:08 Freq: Status: Active Protocol: Activity Type Activity Date Activity User E-sign Co-sign Detail Recorded Client Recorded Date Recorded By Document 03/18/23 11:43 MW [id number] 03/18/23 11:44 MW Document 03/25/23 11:24 DL [id number] 03/25/23 11:25 DL Document 04/08/23 11:07 MW Desktop 04/08/23 11:08 MW 03/18/23 03/25/23 04/08/23 11:43 11:24 11:07 Wound Care Center Nurse 3 #2- R BUTTOCK CLUSTER -Ulcer Cleansing Rinsed/ Rinsed/ Irrigated with Irrigated with Saline Saline -Foul Odor after Cleansing No -Negative Pressure Wound Therapy N/A -Primary Dressing Applied Mepilex Border, Mepilex Border, Mepilex Border NonAdherent NonAdherent Contact Layer, Contact Layer Promogran -Mepilex Border 1 1 1 -Promogran 1 #1 L BUTTOCK -Ulcer Cleansing Rinsed/ Rinsed/ Irrigated with Irrigated with Saline Saline -Foul Odor after Cleansing No No -Negative Pressure Wound Therapy N/A -Primary Dressing Applied NonAdherent Contact Layer, Promogran -Other Dressing promogran, mepilex mepilex mepilex -Promogran 1 Treatment Response Procedure Procedure Procedure Tolerated Well Tolerated Well Tolerated Well Pain Scale: 0-10 Numeric Is Patient Pain Free? Yes Yes Yes Teaching: Wound Center Dressing Your Wound -Person Taught Patient,Family Patient,Family -Teaching Method Discussion, Discussion, Demonstration Demonstration -Response to teaching Verbalize Verbalize understanding understanding WC - Visit Discharge Discharge Condition Stable Stable Stable Ambulatory Status Ambulatory, Ambulatory Ambulatory,Cane Walker Transportation Private Auto Private Auto Private Auto Accompanied by Medication Reconcilliation completed & No No provided to patient/care provider Clinical Summary of Care Provided Yes Yes Notes: healed, discharged from clinic Assessment/Plan Assessment/Plan (1) Pressure ulcer of right buttock, stage 2: CODE(S): L89.312 - Pressure ulcer of right buttock, stage 2 (2) Pressure ulcer of left buttock, stage 2: CODE(S): L89.322 - Pressure ulcer of left buttock, stage 2 (3) DM type 2 (diabetes mellitus, type 2): CODE(S): E11.9 - Type 2 diabetes mellitus without complications PLAN: Plan Healed. No new concerns at this time. Moisturize adequately and cover with foam dressing x 2 weeks. Continue offloading, optimal protein intake and diabetes control. Her questions were answered and she was advised to call with any further questions or concerns. Discharge from the wound center. This note was generated with [employer] dictation software. It may contain incorrect words, spelling, and punctuation that were not noted in checking the note before signing.
== END 2023-04-15 23:59 | disposition home or self-care (01) ==
LOC: WC 10:30
PROVIDERS: PCP Family Medicine; Referring Provider Family Medicine; Visit Provider Internal Medicine
DX: L89.322 Pressure ulcer of left buttock, stage 2 (principal); L89.312 Pressure ulcer of right buttock, stage 2; E11.9 Type 2 diabetes mellitus without complications; Z95.1 Presence of aortocoronary bypass graft
CPT/HCPCS: 11042; 97597; 99212; G0463

== ENCOUNTER → 2023-08-19 | Outpatient (CLI) | payer MEDICARE, SELFPAY ==
--- NOTE | 2023-08-19 08:41 | BI_ITS ---
MAMMOGRAPHY - BILATERAL SCREENING REASON FOR EXAM: Female, 72 years old. Routine annual screening examination. PERTINENT HISTORY: Non-contributory. TECHNIQUE: Digital bilateral breast mirian (3D mammographic acquisition) in the CC and MLO projections. 2-D mediolateral oblique (MLO) and craniocaudad (CC) views of both breasts were obtained. CAD: Full Field Digital Mammography with Computer Added Detection was performed. COMPARISON: Comparison is made with prior study dated June 10, 2022 and June 09, 2021. FINDINGS: Breast Composition: The breasts are almost entirely fatty. There are no dominant masses or suspicious calcifications. Stable 7 mm well-defined nodule in the central slightly lateral aspect of the right breast. Stable fat-containing bilateral axillary lymph nodes. No other significant abnormalities are identified. There has been no significant change since the prior study. BI/SCRN MAMM (CAD)W/MIRIAN BILAT IMPRESSION: Stable bilateral screening mammogram. Yearly follow-up mammogram recommended. (A) ASSESSMENT CATEGORY: BIRADS Category 2: Benign. A letter regarding these results will be sent to the patient by the facility within 30 days. Approximately 10% of breast cancers are not detected by mammography. A normal mammogram should not delay biopsy of a clinically suspicious abnormality. [id number] Electronically Signed: Geoffrey Al MD at 13:45 EST ,
== END | disposition home or self-care (01) ==
PROVIDERS: PCP Family Medicine; Referring Provider Nurse Practitioner Women's Health; Visit Provider Nurse Practitioner Women's Health
DX: Z12.31 Encounter for screening mammogram for malignant neoplasm of breast (principal)
CPT/HCPCS: 77063; 77067

== ENCOUNTER → 2023-09-15 | Outpatient (CLI) | payer MEDICARE, SELFPAY ==
[2023-09-15 14:06] LABS: Amphetamine Urine VISTA NEGATIVE (<1000 ng/mL); Barbiturate Urine VISTA NEGATIVE (< 200 ng/mL); Benzodiazepine Urine VISTA NEGATIVE (< 200 ng/mL); Cocaine Urine VISTA NEGATIVE (< 300 ng/mL); Ecstacy Urine VISTA NEGATIVE (< 500 ng/mL); Methadone Urine VISTA NEGATIVE (< 300 ng/mL); PCP Urine VISTA NEGATIVE (< 25 ng/mL); THC Urine VISTA NEGATIVE (< 50 ng/mL); Vista UDS pH Range 5
== END | disposition home or self-care (01) ==
PROVIDERS: PCP Family Medicine; Referring Provider Anesthesiology Pain Medicine; Visit Provider Anesthesiology Pain Medicine
DX: F11.20 Opioid dependence, uncomplicated (principal)
CPT/HCPCS: 80307

== ENCOUNTER → 2023-09-17 | Outpatient (CLI) | payer MEDICARE, SELFPAY ==
[2023-09-23 15:08] LABS: HPV APTIMA, High Risk Negative (Negative)
== END | disposition home or self-care (01) ==
LOC: LABSPEC 16:53
PROVIDERS: PCP Family Medicine; Referring Provider Obstetrics & Gynecology; Visit Provider Obstetrics & Gynecology
DX: B37.2 Candidiasis of skin and nail (principal); Z12.4 Encounter for screening for malignant neoplasm of cervix
CPT/HCPCS: 87070; 87205; 87624; 88175; G0145

== ENCOUNTER → 2023-10-18 | Outpatient (CLI) | payer MEDICARE, SELFPAY ==
--- NOTE | 2023-10-18 07:51 | CDU_ITS ---
Reason For Study: Lt Carotid Bruit Rt. Velocities/BP Lt. Velocities/BP Prox CCA 72.8/12.6 cm/sec. Prox CCA 94.2/21.2 cm/sec. Mid CCA 83.9/13.9 cm/sec. Mid CCA 71.8/15.2 cm/sec. Dist CCA 77.7/12.6 cm/sec. Dist CCA 82.7/11.5 cm/sec. Prox ICA 189.4/31.4 cm/sec. Prox ICA 368.1/75.7 cm/sec. Mid ICA 73.4/19.6 cm/sec. Mid ICA 210.7/39.7 cm/sec. Dist ICA 57.6/12.0 cm/sec. Dist ICA 57.2/19.3 cm/sec. Rt. ICA/CCA = 2.3. Lt. ICA/CCA = 5.1. Prox ECA 346.4/24.7 cm/sec. Prox ECA 354.3/28.6 cm/sec. Rt. Vert. 54.4/13.9 cm/sec. Lt. Vert. 53.7/12.7 cm/sec. Right Extracranial There is heterogeneous, irregular atherosclerotic plaque noted in the right common carotid artery. There is heterogeneous, irregular atherosclerotic plaque noted in the right internal carotid artery. The atherosclerotic plaque causes acoustic shadowing. There is heterogeneous, irregular atherosclerotic plaque noted in the right external carotid artery. Antegrade flow is noted in the right vertebral artery. Left Extracranial There is heterogeneous, irregular atherosclerotic plaque noted in the left common carotid artery. There is heterogeneous, irregular atherosclerotic plaque noted in the left internal carotid artery. The atherosclerotic plaque causes acoustic shadowing. There is heterogeneous, irregular atherosclerotic plaque noted in the left external carotid artery. Antegrade flow is noted in the left vertebral artery. Procedure Carotid Duplex [id number]. This is a Carotid Duplex examination using B-mode, color flow and specral Doppler. The exam was diagnostic. Exam performed in department. VL/Carotid Duplex Ultrasound Interpretation Summary Moderate (50-69%) stenosis right extracranial internal carotid. Severe (>70%) stenosis left extracranial internal carotid. Patent and antegrade vertebrals bilaterally. Ordering Physician: Kailyn Max Referring Physician: Kali Dueñas Performed By: Bandar Powers RVT
--- OUTSIDE RECORDS SUMMARY | 2023-10-18 08:05 | XMS RPT_ITS | CCD ---
Author Name Unknown Address [address] [place] [address] Organization [facility] Care Team Providers Care Soil Field Technician Name Role Phone EBER Mena RN, Judi Alvarado Unavailable Unavailabl e Yvon HEALTHCARE ANALYST, Chanda S Unavailable Yvon HEALTHCARE ANALYST, Chanda S Unavailable Sarah William MD Unavailable [phone] Mariama Bacon MD Primary Care Provider Guero Diaz Unavailable Mariama Bacon MD Primary Care Provider Guero Diaz Unavailable Mariama Bacon MD Primary Care Provider Guero Diaz Unavailable Mariama Bacon Primary Care Provider AZIKEN, ADRIANNE Attending Unavailable JORDI, MARIAMA Primary Care Unavailable JORDI, MARIAMA Primary Care Unavailable AZIKEN, ADRIANNE Attending Unavailable LESKOSKY, ELSIE Referring Unavailable JORDI, MARIAMA Primary Care Unavailable LESKOSKY, ELSIE Referring Unavailable JORDI, MARIAMA Primary Care Unavailable LESKOSKY, ELSIE Referring Unavailable JORDI, MARIAMA Primary Care Unavailable ISABELLA CAPPS Referring Unavailable JORDI, MARIAMA Primary Care Unavailable LESKOSKY, ELSIE Referring Unavailable JORDI, MARIAMA Primary Care Unavailable LESKOSKY, ELSIE Referring Unavailable JORDI, MARIAMA Primary Care Unavailable LESKOSKY, ELSIE Referring Unavailable JORDI, MARIAMA Primary Care Unavailable AZIKEN, ADRIANNE Admitting Unavailable AZIKEN, ADRIANNE Attending Unavailable JORDI, MARIAMA Primary Care Unavailable XAVIER TORRES Consulting Unavailable ISABELLA CAPPS Consulting Unavailable LESELSIE SCHNEIDER Referring Unavailable JORDI, MARIAMA Primary Care Unavailable MONICA ORELLANA Attending Unavailable MONICA ORELLANA Referring Unavailable JORDI, MARIAMA Primary Care Unavailable ELSIE SMYTH Attending Unavailable JORDI, MARIAMA Primary Care Unavailable ALEJANDRA OLEARY Attending Unavailable JORDI, MARIAMA Primary Care Unavailable JORDI, MARIAMA JENNIFER Primary Care Unavailab HUEY Hansen Attending Unavailable LY, ERIKA Referring Unavailable LY, ERIKA Referring Unavailable JORDI, MARIAMA RODRIGUEZ Primary Care Unavailab le Jordi CHANEY, Mariama Rodriguez Primary Care Provider Guero Diaz Unavailable Guero Diaz MD F Unavailable [phone] Mariama Bacon MD Primary Care Provider MARIAMA BACON Primary Care Unavailab le MARIAMA BACON Referring Unavailab le JORDI, MARIAMA RODRIGUEZ Primary Care Unavailab le MICKY ERIKA Attending Unavailable MARIAMA BACON Referring Unavailab le JORDI, MARIAMA RODRIGUEZ Primary Care Unavailab le JORDI, MARIAMA RODRIGUEZ Primary Care Unavailab le JORDI, MARIAMA RODRIGUEZ Primary Care Unavailab le JORDI, MARIAMA RODRIGUEZ Primary Care Unavailab le JORDI, MARIAMA RODRIGUEZ Primary Care Unavailab le MARIAMA BACON Referring Unavailab le JORDIMARIAMA Primary Care Unavailab le JORDIMARIAMA Primary Care Unavailab le JORDI, MARIAMA RODRIGUEZ Primary Care Unavailab le JORDI, MARIAMA RODRIGUEZ Primary Care Unavailab le JORDI, MARIAMA RODRIGUEZ Primary Care Unavailab le HARLAN MARINA Attending Unavailable MARIAMA BACON Attending Unavailab le JORDI, MARIAMA RODRIGUEZ Primary Care Unavailab le JORDIMARIAMA Attending Unavailab le JORDI, MARIAMA RODRIGUEZ Primary Care Unavailab le JORDIMARIAMA Attending Unavailab le JORDI, MARIAMA RODRIGUEZ Primary Care Unavailab le JORDIMARIAMA Attending Unavailab le JORDI, MARIAMA RODRIGUEZ Primary Care Unavailab le LILIBETH, YOMAIRA Attending Unavailable MARIAMA BACON Primary Care Unavailab le JORDI, MARIAMA RODRIGUEZ Attending Unavailab le MARIAMA BACON Primary Care Unavailab le MARIAMA BACON Attending Unavailab le JORDI, MARIAMA RODRIGUEZ Primary Care Unavailab le MARIAMA BACON Attending Unavailab le JORDI, MARIAMA RODRIGUEZ Primary Care Unavailab le JORDIMARIAMA Attending Unavailab le JORDI, MARIAMA RODRIGUEZ Primary Care Unavailab le Allergies Allergy Classification Reported Allergen(s) Allergy Type Date of Onset Reaction(s) Facility (5 sources) amoxicillin / clavulanate drug allergy 04-01-20 17 [facility] (5 sources) cefprozil drug allergy 04-01-20 17 [facility] (5 sources) Contrast media drug allergy 04-01-20 [facility] (8 sources) erythromycin; Translations: [ERYTHROMYCIN] drug allergy 04-01-20 17 [facility] (5 sources) gatifloxacin drug allergy 04-01-20 17 [facility] (20 sources) lincomycin; Translations: [LINCOMYCIN] drug allergy 02-01-20 17 Baetriz Jimenez [facility] (5 sources) lincomycin drug allergy 04-01-20 17 [facility] (5 sources) metoclopramide drug allergy 04-01-20 17 [facility] (5 sources) sulfamethoxazole / trimethoprim drug allergy 04-01-20 17 [facility] (5 sources) VICKS DAYQUIL/NYQUIL COUGH drug allergy 04-01-20 17 [facility] (20 sources) Amoxicillin / Clavulanate; Translations: [AMOXICILLIN-POT CLAVULANATE] Drug Allergy 04-27-20 [facility] Work Phone: (20 sources) cefprozil; Translations: [CEFPROZIL] Drug Allergy 04-27-20 [facility] Work Phone: (20 sources) Chlorpheniramine / Pseudoephedrine; Translations: [DAYQUIL ALLERGY 12-HR] Drug Allergy 04-27-20 18 [place] Work Phone: (20 sources) Erythromycin Drug Allergy 04-01-20 17 [facility] Work Phone: (20 sources) gatifloxacin; Translations: [GATIFLOXACIN] Drug Allergy 04-27-20 18 Rash [facility] Work Phone: (20 sources) Iodine; Translations: [IODINE] Drug Allergy 04-27-20 18 Other: See Comments, Unknown [facility] Work Phone: (20 sources) Metoclopramide; Translations: [METOCLOPRAMIDE HCL] Drug Allergy 04-27-20 18 Intolerance [facility] Work Phone: (20 sources) Clavulanate; Translations: [CLAVULANIC ACID] Drug Allergy 02-01-20 17 [place] (20 sources) Dextromethorphan; Translations: [DEXTROMETHORPHAN] Drug Allergy 02-01-20 17 [place] (20 sources) Doxycycline; Translations: [DOXYCYCLINE] Drug Allergy 11-29-19 19 Unknown, Vomiting, Vomiting Only [facility] (20 sources) Doxylamine; Translations: [DOXYLAMINE] Drug Allergy 02-01-20 17 [place] (15 sources) Ibuprofen; Translations: [IBUPROFEN] Drug Allergy 02-01-20 17 Other: See [facility] (20 sources) Metoclopramide; Translations: [METOCLOPRAMIDE] Drug Allergy 02-01-20 17 Other: See Comments, Other, Unknown [facility] (20 sources) Morphine; Translations: [MORPHINE] Drug Allergy 07-24-20 20 Other: See Comments, [facility] (20 sources) Pseudoephedrine; Translations: [PSEUDOEPHEDRINE] Drug Allergy 02-01-20 17 [place] (20 sources) Sulfamethoxazole; Translations: [SULFAMETHOXAZOLE] Drug Allergy 05-22-20 19 [facility] (20 sources) Sulfamethoxazole / Trimethoprim; Translations: [SULFAMETHOXAZOLE-T RIMETHOPRIM] Drug Allergy 04-01-20 17 Other: See Comments, Unknown [facility] (20 sources) Trimethoprim; Translations: [TRIMETHOPRIM] Drug Allergy 05-22-20 19 [facility] (20 sources) Iodinated Contrast Media; Translations: [IODINATED CONTRAST MEDIA] Drug Allergy 05-22-20 19 [place] (16 sources) Amoxicillin Drug Allergy 02-01-20 17 [facility] (16 sources) Cefprozil Allergy to substance 02-01-20 17 [facility] (16 sources) Gatifloxacin Allergy to substance 02-01-20 17 [facility] (16 sources) HMG-CoA reductase inhibitor Drug Allergy 02-01-20 17 [facility] (16 sources) Sulfamethoxazole Allergy to substance 05-22-20 19 Unknown [facility] (14 sources) [id number] -Apap Propensity to adverse reactions 11-21-19 23 [facility] (20 sources) HMG-CoA reductase inhibitor; Translations: [VMHLEIC-BAL-LMX REDUCTASE INHIBITORS] Drug Allergy 02-01-20 [facility] (12 sources) Acetaminophen; Translations: [ACETAMINOPHEN] Drug Allergy 04-07-20 23 Unknown [facility] Medications Current Medications Medication Drug Class(es) Dates Sig (Normalized) Sig (Original) acetaminophen 500 mg oral tablet (2 sources) Start: 12-01-2022 End: 12-11-2022 take 2 tablets by mouth every eight hours acetaminophen (Tylenol) 500 MG tablet Take 2 tablets (1,000 mg) by mouth in the morning and 2 tablets (1,000 mg) at noon and 2 tablets (1,000 mg) before bedtime. Do all this for 10 days. 60 tablet 0 12/01/2022 12/11/2022 Active aluminum hydroxide 80 mg / magnesium trisilicate 14.2 mg chewable tablet (16 sources) Alum Hydroxide-M ag Trisilicate 80-14.2 MG chewable tablet Chew 1 tablet daily. 0 Active amLODIPine 5 mg oral tablet (13 sources) Dihydropyridine Calcium Channel Ghulam Start: 07-12-2023 End: 07-11-2024 take 1 tablet by mouth once daily amLODIPine (NORVASC) 5 mg tablet Take 1 tablet by mouth once daily. 90 tablet 3 07/12/2023 07/11/2024 Active Completed/Discontinued Medications Medication Drug Class(es) Dates Sig (Normalized) Sig (Original) albuterol 0.83 mg/ml inhalation solution (20 sources) beta2-Adrenergic Agonist Start: 03-09-2020 End: 01-27-2023 take 1 dose by inhalation every six hours as needed albuterol (PROVENTIL) 2.5 mg /3 mL (0.083 %) nebulizer solution INHALE WITH 1 VIAL IN NEBULIZER EVERY SIX HOURS NEEDED 30 mL 3 01/27/2023 Active Problems Active Problems Problem Classification Problem Date Documented Da te Episodic/Chronic Administrative/social admission (3 sources) Patient encounter status; Translations: [Other specified counseling] Onset: 07-21-2023 07-21-2023 Episodic Asthma (20 sources) Mild intermittent asthma; Translations: [Mild intermittent asthma, uncomplicated] Onset: 03-01-2017 Chronic Cardiac dysrhythmias (20 sources) Multiple premature ventricular complexes; Translations: [Ventricular premature depolarization] Onset: 12-30-2022 12-30-2022 Chronic Chronic ulcer of skin (1 source) Pressure ulcer of buttock stage 3; Translations: [Pressure ulcer of unspecified buttock, stage 3] Chronic Complication of device; implant or graft (2 sources) Atherosclerosis of coronary artery bypass graft(s) without angina pectoris; Translations: [Atherosclerosis of coronary artery bypass graft(s) without angina pectoris] Onset: 11-26-2022 Chronic Complications of surgical procedures or medical care (14 sources) Delayed recovery from general anesthesia; Translations: [Other complications of anesthesia, initial encounter] Onset: 11-20-2022 11-20-2022 Episodic Coronary atherosclerosis and other heart disease (20 sources) Coronary arteriosclerosis; Translations: [Atherosclerotic heart disease of atka coronary artery with other forms of angina pectoris] Onset: 11-18-2022 Chronic Diabetes mellitus without complication (20 sources) Diabetes mellitus type 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; Translations: [Type 2 diabetes mellitus without complications] Onset: 05-22-2022 05-22-2022 Chronic Disorders of lipid metabolism (20 sources) Hypercholesterolemia; Translations: [Pure hypercholesterolemia, unspecified] Onset: 07-24-2022 Chronic Essential hypertension (20 sources) Essential hypertension; Translations: [Essential (primary) hypertension] Onset: 03-01-2017 Chronic Gastritis and duodenitis (1 source) Bile-induced gastritis; Translations: [Other gastritis without bleeding] 04-20-2023 Episodic Mycoses (2 sources) Candidiasis of skin; Translations: [Candidiasis of skin and nail] 06-12-2023 Episodic Other diseases of bladder and urethra (20 sources) Overactive bladder; Translations: [Overactive bladder] Onset: 12-30-2022 12-30-2022 Chronic Other ear and sense organ disorders (1 source) Otitis externa of bilateral ears; Translations: [Unspecified otitis externa, bilateral] 04-14-2023 Chronic Other gastrointestinal disorders (1 source) Abdominal bloating; Translations: [Abdominal distension (gaseous)] 04-20-2023 Episodic Other gastrointestinal disorders (2 sources) Belching symptom; Translations: [Eructation] 01-06-2023 Episodic Other lower respiratory disease (2 sources) Dyspnea; Translations: [Shortness of breath] Episodic Other lower respiratory disease (2 sources) Shortness of breath; Translations: [Shortness of breath] Onset: 12-22-2022 Episodic Other non-traumatic joint disorders (1 source) Shoulder pain; Translations: [Pain in left shoulder] Episodic Other nutritional; endocrine; and metabolic disorders (20 sources) Hypomagnesemia; Translations: [Hypomagnesemia] Onset: 12-30-2022 12-30-2022 Chronic Other screening for suspected conditions (not mental disorders or infectious disease) (20 sources) Abnormal cervical Papanicolaou smear; Translations: [Unspecified abnormal cytological findings in specimens from cervix uteri] Onset: 06-16-2022 12-30-2022 Episodic Other skin disorders (1 source) Eruption; Translations: [Rash and other nonspecific skin eruption] 06-24-2023 Episodic Other upper respiratory disease (20 sources) Allergic rhinitis; Translations: [Allergic rhinitis, unspecified] Onset: 06-05-2019 07-30-2022 Chronic Peripheral and visceral atherosclerosis (20 sources) Atherosclerosis of aorta; Translations: [Atherosclerosis of aorta] Onset: 11-23-2018 12-30-2022 Chronic Screening and history of mental health and substance abuse codes (1 source) Encounter for screening for depression; Translations: [Encounter for screening for depression] Onset: 07-21-2023 Episodic Unclassified (3 sources) Venereal disease screening ; Translations: [Encounter for screening for infections with a predominantly sexual mode of transmission] Onset: 04-01-2017 04-01-2017 Unclassified (3 sources) Screening mammography ; Translations: [Encounter for screening mammogram for malignant neoplasm of breast] Onset: 04-01-2017 04-01-2017 Unclassified (3 sources) Gynecologic examination ; Translations: [Encounter for gynecological examination (general) (routine) without abnormal findings] Onset: 04-01-2017 04-01-2017 Unclassified (2 sources) Post-op; Translations: [Post-op] Onset: 12-10-2022 Unclassified (1 source) Sinus Problem Onset: 05-10-2023 Past or Other Problems Problem Classification Problem Date Documented Da te Episodic/Chronic Genitourinary symptoms and ill-defined conditions (20 sources) Bladder pain; Translations: [Other symptoms and signs involving the genitourinary system] Onset: 12-30-2022 12-30-2022 Episodic Other gastrointestinal disorders (20 sources) Burping; Translations: [Eructation] Onset: 12-29-2022 12-30-2022 Episodic Other gastrointestinal disorders (2 sources) Eructation; Translations: [Belching symptom] Onset: 12-30-2022 Episodic Other non-traumatic joint disorders (20 sources) Multiple joint pain; Translations: [Pain in unspecified joint] Onset: 03-07-2018 Episodic Other non-traumatic joint disorders (1 source) Pain in left shoulder; Translations: [Acute pain of left shoulder] Onset: 09-24-2022 Episodic Residual codes; unclassified (20 sources) Insomnia; Translations: [Insomnia, unspecified] Onset: 01-26-2018 07-30-2022 Episodic Residual codes; unclassified (20 sources) History of clinical finding in subject; Translations: [Personal history of other specified conditions] Onset: 11-20-2022 11-20-2022 Episodic Residual codes; unclassified (20 sources) Family history of cancer of colon; Translations: [Family history of malignant neoplasm of digestive organs] Onset: 12-30-2022 12-30-2022 Episodic Spondylosis; intervertebral disc disorders; other back problems (20 sources) Spinal stenosis; Translations: [Spinal stenosis, site unspecified] Onset: 06-24-2020 07-30-2022 Episodic Viral infection (3 sources) Human papilloma virus infection; Translations: [Papillomavirus as the cause of diseases classified elsewhere] Onset: 04-07-2017 04-07-2017 Episodic Results Test Name Value Interpretation Reference Range Facil ity Vital Signs Date Time Vital Sign Value Performing Clinician Facility 07-21-2023 10:38-0500 Body height 160 cm Mariama Bacon MD Work Phone: [facility] 07-21-2023 10:38-0500 Body temperature 97.59 [degF] Mariama Bacon MD Work Phone: [facility] 07-21-2023 10:38-0500 Body weight 82.46 kg Mariama Bacon MD Work Phone: [facility] 07-21-2023 10:38-0500 Diastolic blood pressure 74 mm[Hg] Mariama Bacon MD Work Phone: [facility] 07-21-2023 10:38-0500 Heart rate 68 /min Mariama Bacon MD Work Phone: [facility] 07-21-2023 10:38-0500 Respiratory rate 18 /min Mariama Bacon MD Work Phone: [facility] 07-21-2023 10:38-0500 SaO2% (BldA) [Mass fraction] 100 % Mariama Bacon MD Work Phone: [facility] 07-21-2023 10:38-0500 Systolic blood pressure 134 mm[Hg] Mariama Bacon MD Work Phone: [facility] 07-12-2023 13:35-0500 Body height 160 cm Mariama Bacon MD Work Phone: [facility] 07-12-2023 13:35-0500 Body temperature 97.59 [degF] Mariama Bacon MD Work Phone: [facility] 07-12-2023 13:35-0500 Body weight 82.37 kg Mariama Bacon MD Work Phone: [facility] 07-12-2023 13:35-0500 Diastolic blood pressure 82 mm[Hg] Mariama Bacon MD Work Phone: [facility] 07-12-2023 13:35-0500 Heart rate 74 /min Mariama Bacon MD Work Phone: [facility] 07-12-2023 13:35-0500 Respiratory rate 18 /min Mariama Bacon MD Work Phone: [facility] 07-12-2023 13:35-0500 SaO2% (BldA) [Mass fraction] 97 % Mariama Bacon MD Work Phone: [facility] 07-12-2023 13:35-0500 Systolic blood pressure 138 mm[Hg] Mariama Bacon MD Work Phone: [facility] 07-10-2023 10:48-0500 Body temperature 97.5 [degF] Marva Praisler-Wood HOSIERY LOOPER.ECONOMIC DEVELOPER Work Phone: [facility] 07-10-2023 10:48-0500 Body weight 82.56 kg Marva Praisler-Wood HOSIERY LOOPER.ECONOMIC DEVELOPER Work Phone: [facility] 07-10-2023 10:48-0500 Diastolic blood pressure 80 mm[Hg] Marva Praisler-Wood HOSIERY LOOPER.ECONOMIC DEVELOPER Work Phone: [facility] 07-10-2023 10:48-0500 Heart rate 84 /min Marva Praisler-Wood HOSIERY LOOPER.ECONOMIC DEVELOPER Work Phone: [facility] 07-10-2023 10:48-0500 Respiratory rate 18 /min Marva Praisler-Wood HOSIERY LOOPER.ECONOMIC DEVELOPER Work Phone: [facility] 07-10-2023 10:48-0500 SaO2% (BldA) [Mass fraction] 100 % Marva Praisler-Wood HOSIERY LOOPER.ECONOMIC DEVELOPER Work Phone: [facility] 07-10-2023 10:48-0500 Systolic blood pressure 170 mm[Hg] Marva Praisler-Wood HOSIERY LOOPER.ECONOMIC DEVELOPER Work Phone: [facility] 06-24-2023 08:35-0500 Body temperature 98.2 [degF] Savita Paul HOSIERY LOOPER.ECONOMIC DEVELOPER Work Phone: [facility] 06-24-2023 08:35-0500 Body weight 80.74 kg Savita Paul HOSIERY LOOPER.ECONOMIC DEVELOPER Work Phone: [facility] 06-24-2023 08:35-0500 Diastolic blood pressure 69 mm[Hg] Savita Paul HOSIERY LOOPER.ECONOMIC DEVELOPER Work Phone: [facility] 06-24-2023 08:35-0500 Heart rate 97 /min Savita Paul HOSIERY LOOPER.ECONOMIC DEVELOPER Work Phone: [facility] 06-24-2023 08:35-0500 Respiratory rate 20 /min Savita Paul HOSIERY LOOPER.ECONOMIC DEVELOPER Work Phone: [facility] 06-24-2023 08:35-0500 SaO2% (BldA) [Mass fraction] 98 % Savita Paul HOSIERY LOOPER.ECONOMIC DEVELOPER Work Phone: [facility] 06-24-2023 08:35-0500 Systolic blood pressure 149 mm[Hg] Savita Paul HOSIERY LOOPER.ECONOMIC DEVELOPER Work Phone: [facility] 06-12-2023 08:18-0400 Body temperature 97.3 [degF] Anum Pelkie HOSIERY LOOPER.ECONOMIC DEVELOPER Work Phone: [facility] 06-12-2023 08:18-0400 Body weight 81.01 kg Anum Ryan HOSIERY LOOPER.ECONOMIC DEVELOPER Work Phone: [facility] 06-12-2023 08:18-0400 Diastolic blood pressure 76 mm[Hg] Anum Ryan HOSIERY LOOPER.ECONOMIC DEVELOPER Work Phone: [facility] 06-12-2023 08:18-0400 Heart rate 91 /min Anum Pelkie HOSIERY LOOPER.ECONOMIC DEVELOPER Work Phone: [facility] 06-12-2023 08:18-0400 Respiratory rate 21 /min Anum Ryan HOSIERY LOOPER.ECONOMIC DEVELOPER Work Phone: [facility] 06-12-2023 08:18-0400 SaO2% (BldA) [Mass fraction] 99 % Anum Ryan HOSIERY LOOPER.ECONOMIC DEVELOPER Work Phone: [facility] 06-12-2023 08:18-0400 Systolic blood pressure 144 mm[Hg] Anum Ryan HOSIERY LOOPER.ECONOMIC DEVELOPER Work Phone: [facility] 05-17-2023 11:27-0400 Body temperature 97.9 [degF] Marva Praisler-Wood HOSIERY LOOPER.ECONOMIC DEVELOPER Work Phone: [facility] 05-17-2023 11:27-0400 Body weight 81.92 kg Marva Praisler-Wood HOSIERY LOOPER.ECONOMIC DEVELOPER Work Phone: [facility] 05-17-2023 11:27-0400 Diastolic blood pressure 84 mm[Hg] Marva Praisler-Wood HOSIERY LOOPER.ECONOMIC DEVELOPER Work Phone: [facility] 05-17-2023 11:27-0400 Heart rate 89 /min Marva Praisler-Wood HOSIERY LOOPER.ECONOMIC DEVELOPER Work Phone: [facility] 05-17-2023 11:27-0400 Respiratory rate 18 /min Marva Praisler-Wood HOSIERY LOOPER.ECONOMIC DEVELOPER Work Phone: [facility] 05-17-2023 11:27-0400 SaO2% (BldA) [Mass fraction] 99 % Marva Praisler-Wood HOSIERY LOOPER.ECONOMIC DEVELOPER Work Phone: [facility] 05-17-2023 11:27-0400 Systolic blood pressure 179 mm[Hg] Marva Praisler-Wood HOSIERY LOOPER.ECONOMIC DEVELOPER Work Phone: [facility] 04-20-2023 09:03-0400 Body weight 80.74 kg Harlan Sybil HOSIERY LOOPER.ECONOMIC DEVELOPER Work Phone: [facility] 04-20-2023 09:03-0400 Diastolic blood pressure 75 mm[Hg] Harlan Sybil HOSIERY LOOPER.ECONOMIC DEVELOPER Work Phone: [facility] 04-20-2023 09:03-0400 Heart rate 89 /min Harlan Sybil HOSIERY LOOPER.ECONOMIC DEVELOPER Work Phone: [facility] 04-20-2023 09:03-0400 Systolic blood pressure 127 mm[Hg] Harlan Sybil HOSIERY LOOPER.ECONOMIC DEVELOPER Work Phone: [facility] 04-14-2023 12:04-0400 Body temperature 98.01 [degF] Chula Crooks HOSIERY LOOPER.ECONOMIC DEVELOPER Work Phone: [facility] 04-14-2023 12:04-0400 Body weight 81.92 kg Chula Crooks HOSIERY LOOPER.ECONOMIC DEVELOPER Work Phone: [facility] 04-14-2023 12:04-0400 Diastolic blood pressure 72 mm[Hg] Chula Crooks HOSIERY LOOPER.ECONOMIC DEVELOPER Work Phone: [facility] 04-14-2023 12:04-0400 Heart rate 95 /min Chula Crooks HOSIERY LOOPER.ECONOMIC DEVELOPER Work Phone: [facility] 04-14-2023 12:04-0400 Respiratory rate 21 /min Chula Crooks HOSIERY LOOPER.ECONOMIC DEVELOPER Work Phone: [facility] 04-14-2023 12:04-0400 SaO2% (BldA) [Mass fraction] 98 % Chula Crooks HOSIERY LOOPER.ECONOMIC DEVELOPER Work Phone: [facility] 04-14-2023 12:04-0400 Systolic blood pressure 140 mm[Hg] Chula Crooks HOSIERY LOOPER.ECONOMIC DEVELOPER Work Phone: [facility] 02-10-2023 10:15-0400 Body height 160 cm Mariama Bacon MD Work Phone: [facility] 02-10-2023 10:15-0400 Body temperature 96.91 [degF] Mariama Bacon MD Work Phone: [facility] 02-10-2023 10:15-0400 Body weight 85 kg Mariama Bacon MD Work Phone: [facility] 02-10-2023 10:15-0400 Diastolic blood pressure 78 mm[Hg] Mariama Bacon MD Work Phone: [facility] 02-10-2023 10:15-0400 Heart rate 90 /min Mariama Bacon MD Work Phone: [facility] 02-10-2023 10:15-0400 Respiratory rate 14 /min Mariama Bacon MD Work Phone: [facility] 02-10-2023 10:15-0400 SaO2% (BldA) [Mass fraction] 99 % Mariama Bacon MD Work Phone: [facility] 02-10-2023 10:15-0400 Systolic blood pressure 142 mm[Hg] Mariama Bacon MD Work Phone: [facility] 01-14-2023 14:50-0400 Diastolic blood pressure 67 mm[Hg] Erika Ly DO Work Phone: [facility] 01-14-2023 14:50-0400 Heart rate 94 /min Erika Ly DO Work Phone: [facility] 01-14-2023 14:50-0400 Respiratory rate 22 /min Erika Ly DO Work Phone: [facility] 01-14-2023 14:50-0400 SaO2% (BldA) [Mass fraction] 100 % Erika Ly DO Work Phone: [facility] 01-14-2023 14:50-0400 Systolic blood pressure 134 mm[Hg] Erika Ly DO Work Phone: [facility] 01-14-2023 14:20-0400 Body temperature 97 [degF] Erika Ly DO Work Phone: [facility] 12-10-2022 09:44-0400 Body height 160 cm Elsie Munguiamiguel HOSIERY LOOPER - ECONOMIC DEVELOPER Work Phone: [facility] [employer] 12-10-2022 09:44-0400 Body mass index (BMI) [Ratio] 35.61 kg/m2 Elsie Ezramiguel HOSIERY LOOPER - ECONOMIC DEVELOPER Work Phone: [facility] [employer] 12-10-2022 09:44-0400 Body temperature 98.2 [degF] Elsie Smyth HOSIERY LOOPER - ECONOMIC DEVELOPER Work Phone: [facility] [employer] 12-10-2022 09:44-0400 Body weight 91.17 kg Elsie Smyth HOSIERY LOOPER - ECONOMIC DEVELOPER Work Phone: [facility] [employer] 12-10-2022 09:44-0400 Diastolic blood pressure 79 mm[Hg] Elsie Smyth HOSIERY LOOPER - ECONOMIC DEVELOPER Work Phone: [facility] [employer] 12-10-2022 09:44-0400 Heart rate 78 /min Elsie Smyth HOSIERY LOOPER - ECONOMIC DEVELOPER Work Phone: [facility] [employer] 12-10-2022 09:44-0400 Systolic blood pressure 151 mm[Hg] Elsie Smyth HOSIERY LOOPER - ECONOMIC DEVELOPER Work Phone: [facility] [employer] 11-18-2022 14:53-0400 Body height 160 cm Adrianne Sethi MD Work Phone: [facility] [employer] 11-18-2022 14:53-0400 Body mass index (BMI) [Ratio] 34.9 kg/m2 Adrianne Sethi MD Work Phone: [facility] [employer] 11-18-2022 14:53-0400 Body temperature 97.3 [degF] Adrianne Sethi MD Work Phone: [facility] [employer] 11-18-2022 14:53-0400 Body weight 89.36 kg Adrianne Sethi MD Work Phone: [facility] [employer] 11-18-2022 14:53-0400 Diastolic blood pressure 64 mm[Hg] Adrianne Sethi MD Work Phone: [facility] [employer] 11-18-2022 14:53-0400 Heart rate 80 /min Adrianne Sethi MD Work Phone: [facility] [employer] 11-18-2022 14:53-0400 Systolic blood pressure 140 mm[Hg] Adrianne Sethi MD Work Phone: [facility] [employer] 09-24-2022 08:54-0500 Body temperature 96.8 [degF] Yomaira Mcelroy APRN.ECONOMIC DEVELOPER Work Phone: [facility] 09-24-2022 08:54-0500 Body weight 92.9 kg Yomaira Mcelroy HOSIERY LOOPER.ECONOMIC DEVELOPER Work Phone: [facility] 09-24-2022 08:54-0500 Diastolic blood pressure 84 mm[Hg] Yomaira Mcelroy HOSIERY LOOPER.ECONOMIC DEVELOPER Work Phone: [facility] 09-24-2022 08:54-0500 Heart rate 88 /min Yomaira Mcelroy HOSIERY LOOPER.ECONOMIC DEVELOPER Work Phone: [facility] 09-24-2022 08:54-0500 Respiratory rate 14 /min Yomaira Mcelroy HOSIERY LOOPER.ECONOMIC DEVELOPER Work Phone: [facility] 09-24-2022 08:54-0500 SaO2% (BldA) [Mass fraction] 99 % Yomaira Mcelroy HOSIERY LOOPER.ECONOMIC DEVELOPER Work Phone: [facility] 09-24-2022 08:54-0500 Systolic blood pressure 138 mm[Hg] Yomaira Mcelroy HOSIERY LOOPER.ECONOMIC DEVELOPER Work Phone: [facility] 07-30-2022 09:10-0500 Body height 160 cm Mariama Bacon MD Work Phone: [facility] 07-30-2022 09:10-0500 Body temperature 97.11 [degF] Mariama Bacon MD Work Phone: [facility] 07-30-2022 09:10-0500 Body weight 90.08 kg Mariama Bacon MD Work Phone: [facility] 07-30-2022 09:10-0500 Diastolic blood pressure 76 mm[Hg] Mariama Bacon MD Work Phone: [facility] 07-30-2022 09:10-0500 Heart rate 76 /min Mariama Bacon MD Work Phone: [facility] 07-30-2022 09:10-0500 Respiratory rate 18 /min Mariama Bacon MD Work Phone: [facility] 07-30-2022 09:10-0500 SaO2% (BldA) [Mass fraction] 98 % Mariama Bacon MD Work Phone: [facility] 07-30-2022 09:10-0500 Systolic blood pressure 126 mm[Hg] Mariama Bacon MD Work Phone: [facility] 04-01-2017 08:28-0400 BMI (Body Mass Index) 34.29 kg/m2 Chanda Sanz NP [facility] 04-01-2017 08:28-0400 Body Temperature 97.1 [degF] Chanda Sanz HEALTHCARE ANALYST [facility] 04-01-2017 08:28-0400 Body Temperature 97.11 [degF] Chanda Sanz HEALTHCARE ANALYST [facility] 04-01-2017 08:28-0400 BP Diastolic 93 mm[Hg] Chanda Sanz HEALTHCARE ANALYST [facility] 04-01-2017 08:28-0400 BP Systolic 156 mm[Hg] Chanda Sanz HEALTHCARE ANALYST [facility] 04-01-2017 08:28-0400 Height 160.02 cm Chanda Sanz NP [facility] 04-01-2017 08:28-0400 Pulse (Heart Rate) 68 /min Chanda Sanz HEALTHCARE ANALYST [facility] 04-01-2017 08:28-0400 Respiratory Rate 16 /min Chanda Sanz HEALTHCARE ANALYST [facility] 04-01-2017 08:28-0400 Weight 87.82 kg Chanda Sanz HEALTHCARE ANALYST [facility] Encounters Encounter Date Encounter Type Care Provider Facility Start: 09-01-2023 End: 09-01-2023 ambulatory MARIAMA BACON Facility:[id number] Start: 08-30-2023 End: 08-30-2023 ambulatory MARIAMA BACON Facility:[facility] Start: 2023 End: 2023 ambulatory MARIAMA BACON Facility:[facility] Start: 07-22-2023 End: 07-23-2023 ambulatory MARIAMA BACON Facility:[facility] Start: 07-21-2023 End: 07-21-2023 ambulatory MARIAMA BACON Facility:[id number] Start: 07-21-2023 Encounter for genera l adult medical examination without abnormal findings MARIAMA BACON [facility] Start: 07-21-2023 End: 07-21-2023 Patient encounter procedure Mariama Bacon MD Work Phone: [facility] [place] Procedures Date Procedure Procedure Detail Performing Clinician Start: 05-17-2023 Urnls dip stick/tablet rgnt auto w/o microscopy Marycruz Rockwell HOSIERY LOOPER.ECONOMIC DEVELOPER Work Phone: Start: 04-14-2023 Urnls dip stick/tablet rgnt auto w/o microscopy Marycruz Rockwell HOSIERY LOOPER.ECONOMIC DEVELOPER Work Phone: Start: 01-14-2023 End: 01-14-2023 Cytp slctv cell enhancement interpj xcpt c/v Erika Ly DO Work Phone: Start: 01-14-2023 Esophagogastroduodenoscopy transoral diagnostic Erika Ly DO Work Phone: Start: 01-14-2023 Gluc bld gluc mntr dev cleared fda spec home use Huey Skinner MD Start: 01-06-2023 Radiologic exam abdomen 2 views Catherin e Ly DO Work Phone: Start: 12-22-2022 Radiologic exam chest 2 views Monica Orellana HOSIERY LOOPER - ECONOMIC DEVELOPER Work Phone: Start: 12-10-2022 Follow-up visit Follow-up ELSIE SMYTH Start: 11-29-2022 Radiologic exam chest single view Elsie Smyth HOSIERY LOOPER - ECONOMIC DEVELOPER Work Phone: Start: 11-28-2022 Radiologic exam abdomen 1 view Isabella Capps MD Start: 11-28-2022 Radiologic exam chest single view Elsie Smyth HOSIERY LOOPER - ECONOMIC DEVELOPER Work Phone: Start: 11-27-2022 Radiologic exam chest single view Elsie Smyth HOSIERY LOOPER - ECONOMIC DEVELOPER Work Phone: Start: 11-26-2022 Radiologic exam chest single view Elsie Smyth HOSIERY LOOPER - ECONOMIC DEVELOPER Work Phone: Start: 11-20-2022 Lipid 1996 panel - Serum or Plasma Ach 1 Start: 06-10-2022 Mammography Adrianne Sethi MD Work Phone: Start: 12-17-2021 Comprehensive metabolic 2000 panel - Serum or Plasma Mariama Bacon MD Work Phone: Start: 12-17-2021 Hemoglobin A1c/Hemoglobin.total in Blood Mariama Bacon MD Work Phone: Start: 12-17-2021 Lipid panel Mariama Bacon MD Work Phone: Start: 04-29-2020 Colonoscopy Mariama Bacon MD Work Phone: Start: 04-01-2017 Gynecologic examination Routine gynecological examination Chanda Sanz HEALTHCARE ANALYST Start: 04-01-2017 Screening mammography Mammogram yearly screening Chanda Sanz HEALTHCARE ANALYST Start: 04-01-2017 Venereal disease screening Std screening Chanda Milan s HEALTHCARE ANALYST History of coronary artery bypass grafting S/P CABG x 3 Elsie Smyth HOSIERY LOOPER - ECONOMIC DEVELOPER Work Phone: Plan of Treatment Date Care Activity Detail Author Start: 04-29-2030 Screening for malignant neoplasm of colon [facility] Start: 04-29-2025 Colonoscopy COLONOSCOPY [facility] Start: 04-29-2025 COLORECTAL CANCER SCREENING COLORECTAL CANCER SCREENING [facility] Start: 07-21-2024 Annual PCP Team Chronic Disease Visit Annual PCP Team Chronic Disease Visit [facility] Start: 07-12-2024 Annual PCP Team Chronic Disease Visit Annual PCP Team Chronic Disease Visit [facility] Start: 05-10-2024 Annual PCP Team Chronic Disease Visit Annual PCP Team Chronic Disease Visit [facility] Start: 04-20-2024 BP CONTROLLED (<130/80) BP CONTROLLED (<130/80) [facility] Start: 02-23-2024 ANNUAL PCP TEAM CHRONIC DISEASE VISIT ANNUAL PCP TEAM CHRONIC DISEASE VISIT [facility] Start: 02-11-2024 ANNUAL PCP TEAM CHRONIC DISEASE VISIT ANNUAL PCP TEAM CHRONIC DISEASE VISIT [facility] Start: 01-28-2024 ANNUAL PCP TEAM CHRONIC DISEASE VISIT ANNUAL PCP TEAM CHRONIC DISEASE VISIT [facility] Start: 01-26-2024 Hepatitis B surface antibody level LDL CHOLESTEROL [facility] Start: 12-31-2023 ANNUAL PCP TEAM CHRONIC DISEASE VISIT ANNUAL PCP TEAM CHRONIC DISEASE VISIT [facility] Start: 11-21-2023 Hepatitis B surface antibody level LDL CHOLESTEROL [facility] Start: 11-21-2023 Lipid panel Lipid Panel [facility] Start: 09-24-2023 ANNUAL PCP TEAM CHRONIC DISEASE VISIT ANNUAL PCP TEAM CHRONIC DISEASE VISIT [facility] Start: 09-24-2023 BP CONTROLLED (<130/80) BP CONTROLLED (<130/80) [facility] Start: 07-30-2023 ANNUAL PCP TEAM CHRONIC DISEASE VISIT ANNUAL PCP TEAM CHRONIC DISEASE VISIT [facility] Start: 07-30-2023 BP CONTROLLED (<130/80) BP CONTROLLED (<130/80) [facility] Start: 07-27-2023 Hemoglobin A1c/Hemoglobin.total in Blood HBA1C [facility] Start: 07-21-2023 End: 10-20-2023 CBC W Auto Differential panel - Blood CBC + DIFF Lab Routine Screening for deficiency anemia Expected: 07/21/2023, Expires: 10/20/2023 [facility] Work Phone: Immunizations Immunization Date Immunization Notes Care Provider Ernesto castellanos 05-17-2023 influenza (HD-IIV4) vaccine, age 65+ yr, high dose, quadrivalent, PF (FLUZONE HIGH-DOSE) Mariama Bacon MD Work Phone: [facility] 06-11-2022 COVID-19 booster vac cine, age 12+ yr, bivalent (MODERNA) Yomaira Mcelroy APRN.ECONOMIC DEVELOPER Work Phone: [facility] 06-01-2022 influenza, high-dose , quadrivalent vaccine (FLUZONE HIGH DOSE QUADRIVALENT) Yomaira Mcelroy APRN.ECONOMIC DEVELOPER Work Phone: [facility] 06-01-2022 influenza virus vacc ine, unspecified formulation Marva Madera APRN.ECONOMIC DEVELOPER Work Phone: [facility] 12-02-2021 COVID-19 original vaccine, full dose, monovalent (MODERNA) Yomaira Mcelroy APRN.ECONOMIC DEVELOPER Work Phone: [facility] 07-11-2021 COVID-19 original vaccine, full dose, monovalent (MODERNA) Yomaira Lilibeth HOSIERY LOOPER.ECONOMIC DEVELOPER Work Phone: [facility] 05-12-2021 influenza, high-dose , quadrivalent vaccine (FLUZONE HIGH DOSE QUADRIVALENT) Yomaira Mcelroy HOSIERY LOOPER.ECONOMIC DEVELOPER Work Phone: [facility] 11-15-2020 COVID-19 original vaccine, full dose, monovalent (MODERNA) Yomaira Mcelroy HOSIERY LOOPER.ECONOMIC DEVELOPER Work Phone: [facility] 10-18-2020 COVID-19 original vaccine, full dose, monovalent (MODERNA) Yomaira Lilibeth HOSIERY LOOPER.ECONOMIC DEVELOPER Work Phone: [facility] 05-22-2020 influenza nasal, unspecified formulation Yomaira Mcelroy HOSIERY LOOPER.ECONOMIC DEVELOPER Work Phone: [facility] 05-22-2020 influenza, high-dose , quadrivalent vaccine (FLUZONE HIGH DOSE QUADRIVALENT) Yomaira Mcelroy HOSIERY LOOPER.ECONOMIC DEVELOPER Work Phone: [facility] 01-25-2020 zoster vaccine recombinant Yomaira Lilibeth HOSIERY LOOPER.ECONOMIC DEVELOPER Work Phone: [facility] 01-25-2020 zoster vaccine, live Yomaira S zymrudyki HOSIERY LOOPER.ECONOMIC DEVELOPER Work Phone: [facility] 10-26-2019 zoster vaccine recombinant Yomaira Lilibeth HOSIERY LOOPER.ECONOMIC DEVELOPER Work Phone: [facility] 10-26-2019 zoster vaccine, live Yomaira S zymrudyki HOSIERY LOOPER.ECONOMIC DEVELOPER Work Phone: [facility] 06-28-2019 pneumococcal conjuga te vaccine, 13 valent Yomaira Mcelroy HOSIERY LOOPER.ECONOMIC DEVELOPER Work Phone: [facility] 06-13-2018 pneumococcal polysaccharide vaccine, 23 valent Yomaira Mcelroy HOSIERY LOOPER.ECONOMIC DEVELOPER Work Phone: [facility] 06-08-2018 influenza nasal, unspecified formulation Yomaira Mcelroy HOSIERY LOOPER.ECONOMIC DEVELOPER Work Phone: [facility] Payers Date Payer Category Payer Medicare [facility] AARP MEDICAR E [facility] AARP MEDICARE HMO [id number] 2020-Present [phone] [address] [place] [address] HMO [id number] 2020 Medicare [id number] 2020 Medicare [id number] Social History Date Type Detail Facility Start: 04-27-2018 End: 07-30-2022 Tobacco smoking status NHIS Never smoked tobacco [facility] Work Phone: Start: 04-27-2018 End: 07-30-2022 Tobacco use and exposure Smokeless tobacco non-user [facility] Work Phone: Start: 1950 Sex Assigned At Female [facility] Start: 07-30-2022 End: 07-21-2023 Alcohol intake Ex-drinker (finding) [facility] Start: 07-30-2022 History SDOH Alcohol Std Drinks 0 [facility] Start: 07-30-2022 History SDOH Social Connections Phone 5 [facility] Start: 07-30-2022 History SDOH Social Connections Roman Catholic 3 [facility] Start: 07-30-2022 History SDOH Social Connections Membership 2 [facility] Start: 07-30-2022 History SDOH Social Connections Meetings 1 [facility] Start: 11-18-2022 End: 12-10-2022 Alcohol intake Lifetime non-drinker (finding) [facility] Start: 1950 Sex Assigned At Not on file [facility] Start: 11-08-2022 End: 12-22-2022 Exposure to SARS-CoV-2 (event) Not sure [facility] Start: 07-30-2022 End: 12-30-2022 History of Social function [facility] Start: 07-30-2022 End: 12-30-2022 Social connection and isolation panel [facility] Do you belong to any clubs or organizations such as jewish groups, unions, fraternal or athletic groups, or school groups? No [facility] Are you now , , , , never or living with a partner? [facility] Frequency of Alcohol Consumption Not on file [facility] Do you feel stress - tense, restless, nervous, or anxious, or unable to sleep at night because your mind is troubled all the time - these days [OSQ] Not at all [facility] (I/We) worried wheth er (my/our) food would run out before (I/we) got money to buy more. Never true [facility] Start: 05-02-2020 Gender identity Identifies as female gender (finding) [facility] Start: 05-02-2020 Sexual orientation Heterosexual (finding) [facility] Medical Equipment Procedure Code Equipment Code Equipment Origin al Text Equipment Identifier Dates Start: 12-07-2022 Clinical Notes 03-06-2022 to 09-01-2023 Patient InstructionsMariama Bacon MD - 07/21/2023 11:00 AM Wilson Canela LPN - 07/21/2023 10:24 AM Mariama Peña MD - 07/12/2023 1:52 PM ESTPatient Instructions Note Date & Type Note Facility 09-01-2023 Note HNO ID: [id number] Author: MARIAMA BACON MD Service: ? Author Type: Physician Type: Progress Notes Filed: 09/01/2023 13:16 Note Text: This note was created using [employer]. Subjective Ashwini Baron is a 73 year old female. Presents today with rash to her groin region extending up into her abdominal folds and posteriorly around her rectum. She was treated with ketoconazole cream and 1 Diflucan previously through [facility]. This has not helped her symptoms much. Review of Systems All other systems reviewed and are negative. Objective BP 138/82 (BP Site: Right Arm, BP Position: Sitting, BP Cuff Size: Regular Adult) Pulse 76 Temp 36.4 ?C (97.6 ?F) (Temporal) Resp 18 Ht 160 cm (5' 3 ) Wt 83.1 kg (183 lb 3.2 oz) SpO2 98% BMI 32.45 kg/m? Physical Exam Vitals reviewed. Constitutional: Appearance: Normal appearance. HENT: Head: Normocephalic and atraumatic. Nose: Nose normal. Eyes: Extraocular Movements: Extraocular movements intact. Pupils: Pupils are equal, round, and reactive to light. Cardiovascular: Rate and Rhythm: Normal rate and regular rhythm. Pulmonary: Effort: Pulmonary effort is normal. Breath sounds: Normal breath sounds. Abdominal: General: Bowel sounds are normal. Palpations: Abdomen is soft. Musculoskeletal: General: Normal range of motion. Cervical back: Normal range of motion and neck supple. Skin: General: Skin is warm and dry. Capillary Refill: Capillary refill takes less than 2 seconds. Findings: Rash present. Comments: Extensive rash mycotic in nature, throughout the groin region extending up to the abdominal folds. Neurological: General: No focal deficit present. Mental Status: She is alert and oriented to person, place, and time. Mental status is at baseline. Psychiatric: Mood and Affect: Mood normal. Behavior: Behavior normal. Assessment and Plan Encounter Diagnosis ICD-10-CM 1. Jennie rash of groin B37.89 2. Intertrigo L30.4 ketoconazole (NIZORAL) 2 % cream Clean gently with soap and water. Air dry region. Apply ketoconazole cream twice daily. Treat with Diflucan orally twice weekly for 4 weeks. Follow-up in 1 month as needed. Mariama Bacon MD [facility] 09-01-2023 Note HNO ID: [id number] Author: WILSON SHIPLEY LPN Service: ? Author Type: LICENSED NURSE Type: Progress Notes Filed: 09/01/2023 13:16 Note Text: Patient is in office with complaint of rash in groin area. Patient states that she believed that area was a yeast infection and went to Urgent Care and prescribed Diflucan and Clotrimazole. Patient then went back to Urgent Care and they stated it was believed to be bacterial, therefore they prescribed patient Keflex 500 mg three times a day, Ketoconazole Cream, and Triamcinolone Cream. Patient started Keflex on 08-30-2023. Patient states that the rash is in her groin, mateo area, and around her rectum. No refills needed Wilson Shipley LPN September 01, 2023 11:16 AM [facility] 08-30-2023 Note HNO ID: [id number] Author: RUSH CAO APRN.ECONOMIC DEVELOPER Service: ? Author Type: Nurse Practitioner Type: Progress Notes Filed: 08/30/2023 08:25 Note Text: Subjective HPI HPI Ashwini Baron is a 73 year old female who presents today for CC of rash on groin for 1.5 weeks. Rx for diflucan and clotrimazole last week did not help. Seen 1.5 months ago for rash on shoulders, rx for steroid cream helped but continues to have itching. Denies fever. .Patient presents with: Rash: Yeast infection x1.5 weeks, across shoulders and mid back PAST MEDICAL HISTORY Diagnosis Date Asthma Carotid stenosis Delayed emergence from general anesthesia deep anesthesia 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) 05/22/2022 Diabetes mellitus, type 2 (HCC) Hyperlipidemia Hypertension Sliding hiatal hernia PAST SURGICAL HISTORY Procedure Laterality Date BREAST BIOPSY Bilateral benign BREAST SURGERY HX CHOLECYSTECTOMY COLONOSCOPY 05/2017 COLONOSCOPY SCREENING 2019 EGD 04/2017 EGD DIAGNOSTIC 01/2023 F SALPINGO-OOPHORECTOMY Left PAST SURGICAL HISTORY OF left TM repair TUBAL LIGATION ALLERGIES Metoclopramide, Sulfamethoxazole-Trimethoprim, Morphine, Acetaminophen, Augmentin [Amoxicillin-Pot Clavulanate], Cefzil [Cefprozil], Dayquil Allergy 12-Hr, Dextromethorphan, Doxylamine, Erythromycin, Iodinated Contrast Media, Ivp Dye [Iodine], Lincomycin, Pseudoephedrine, Reglan [Metoclopramide Hcl], Fbixteq-Gnd-Eec Reductase Inhibitors, Tequin [Gatifloxacin], and Doxycycline MEDICATIONS cephALEXin (KEFLEX) 500 mg capsule Take 1 capsule by mouth three times a day for 7 days. ketoconazole (NIZORAL) 2 % cream Apply to affected area once daily for 10 days. triamcinolone acetonide (KENALOG) 0.1 % cream Apply 1 application to affected area three times a day for 10 days. Apply sparingly to area for rash/itching. clotrimazole (LOTRIMIN) 1 % cream Apply to affected area two times a day for 7 days. sucralfate (CARAFATE) 1 gram tablet Take 1 g by mouth three times a day. 1/2 hour before meals lisinopril (ZESTRIL) 10 mg tablet Take 1 tablet by mouth two times a day. metFORMIN (GLUCOPHAGE) 500 mg tablet Take 2 tablets by mouth two times a day with meals. montelukast (SINGULAIR) 10 mg tablet Take 1 tablet by mouth daily at bedtime. glimepiride (AMARYL) 4 mg tablet Take 1 tablet by mouth daily with breakfast. tiZANidine (ZANAFLEX) 2 mg tablet Take 2 tablets by mouth every 8 hours as needed. amLODIPine (NORVASC) 5 mg tablet Take 1 tablet by mouth once daily. rosuvastatin (CRESTOR) 10 mg tablet Take 1 tablet by mouth daily at bedtime. triamcinolone acetonide (KENALOG) 0.1 % cream Apply 1 application to affected area three times a day. Apply sparingly to area for rash/itching. budesonide (PULMICORT) 0.5 mg/2 mL nebulizer solution mix 2 ampules with saline and apply twice daily hydroCHLOROthiazide 12.5 mg tablet Take by mouth. bwgdvqur-zvxlcmlle-gmzbwgzewzahex (CORTISPORIN) 3.5-10,000-1 mg/mL-unit/mL-% otic suspension Use 3 Drops in both ears four times daily. pioglitazone (ACTOS) 45 mg tablet Take 1 tablet by mouth once daily. gel base no.41, bulk, (HYDROGEL) gel 1 Dose once daily. omeprazole (PRILOSEC) 40 mg capsule Take 1 capsule by mouth twice daily. budesonide-formoterol (SYMBICORT) 160-4.5 mcg/actuation inhaler Inhale 2 Puffs as instructed twice daily. albuterol (PROVENTIL) 2.5 mg /3 mL (0.083 %) nebulizer solution INHALE WITH 1 VIAL IN NEBULIZER EVERY SIX HOURS NEEDED metoprolol tartrate, short acting, (LOPRESSOR) 25 mg tablet Take 1 tablet by mouth twice daily. lancets (ONE TOUCH DELICA) 33 gauge 1 Each once daily. blood sugar diagnostic (ONETOUCH ULTRA TEST) test strip 1 Strip before meals and at bedtime. Use as instructed aspirin, enteric coated (ASPIRIN, ENTERIC COATED) 81 mg EC tablet Take 81 mg by mouth once daily. blood sugar diagnostic (ONETOUCH ULTRA TEST) test strip Monitor blood sugar daily and as needed. lancets (TRUEPLUS LANCETS) 33 gauge Monitor blood sugar daily and as needed. ascorbic acid, vitamin C, (VITAMIN C) 500 mg tablet Take by mouth. multivitamin tablet Take by mouth. traMADol (ULTRAM) 50 mg tablet Take 50 mg by mouth every 6 hours as needed for pain. methylcellulose (CITRUCEL ORAL) Take by mouth. diclofenac (VOLTAREN) 1 % topical gel Apply to affected area four times daily. mag carb/aluminum hydrox/algin (GAVISCON ORAL) Take by mouth. B-complex with vitamin C (SUPER B COMPLEX-VITAMIN C ORAL) Take by mouth. FA/mv,Ca,iron,min/lycopene/lut (MULTIVITAL ORAL) Take by mouth. calcium carbonate/vitamin D3 (CALCIUM 500 + D ORAL) Take by mouth. cetirizine HCl (ZYRTEC ORAL) Take by mouth. ubidecarenone (CO Q-10 ORAL) Take by mouth. FAMILY HISTORY Problem Relation Age of Onset Colon Cancer Sister 67 Thyroid Cancer Brother Cancer Sister vaginal Social History Tobacco Use Smoking status: Never Smokeless tobacco: Never Vaping Us (more content not included)... [facility] 2023 Note HNO ID: [id number] Author: TOAN CHANEL PA Service: ? Author Type: Physician Sewer Cleaner Type: Progress Notes Filed: 2023 12:45 Note Text: This note was created using Tuniiter. Subjective Ashwini Baron is a 73 year old female. HPI 73-year-old female presents for rash. Patient states that she noticed a rash under her right breast and along her groin/panty line over the past few days. She has a history of yeast infections in these areas. She states she usually needs cream and Diflucan to help get rid of it. She was seen by her ops manager back in May for this and treated with clotrimazole and Diflucan. She states that this helped with her symptoms. Patient states that yesterday she noticed she had a small spot under her right breast. She states that she started putting some cream on the area that she had leftover which helped. She states that she now has run out of the cream. She also has rash redness and itching noted along her panty line/groin. No vaginal discharge or rash. No vaginal pain. No recent antibiotics or steroids. No fevers. PAST MEDICAL HISTORY Diagnosis Date Asthma Carotid stenosis Delayed emergence from general anesthesia deep anesthesia 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) 05/22/2022 Diabetes mellitus, type 2 (HCC) Hyperlipidemia Hypertension Sliding hiatal hernia PAST SURGICAL HISTORY Procedure Laterality Date BREAST BIOPSY Bilateral benign BREAST SURGERY HX CHOLECYSTECTOMY COLONOSCOPY 05/2017 COLONOSCOPY SCREENING 2019 EGD 04/2017 EGD DIAGNOSTIC 01/2023 F SALPINGO-OOPHORECTOMY Left PAST SURGICAL HISTORY OF left TM repair TUBAL LIGATION ALLERGIES Metoclopramide, Sulfamethoxazole-Trimethoprim, Morphine, Acetaminophen, Augmentin [Amoxicillin-Pot Clavulanate], Cefzil [Cefprozil], Clavulanic Acid, Dayquil Allergy 12-Hr, Dextromethorphan, Doxylamine, Erythromycin, Iodinated Contrast Media, Ivp Dye [Iodine], Lincomycin, Pseudoephedrine, Reglan [Metoclopramide Hcl], Feeyogp-Tcw-Zui Reductase Inhibitors, Tequin [Gatifloxacin], Doxycycline, Sulfamethoxazole, and Trimethoprim MEDICATIONS sucralfate (CARAFATE) 1 gram tablet Take 1 g by mouth three times a day. 1/2 hour before meals lisinopril (ZESTRIL) 10 mg tablet Take 1 tablet by mouth two times a day. metFORMIN (GLUCOPHAGE) 500 mg tablet Take 2 tablets by mouth two times a day with meals. montelukast (SINGULAIR) 10 mg tablet Take 1 tablet by mouth daily at bedtime. glimepiride (AMARYL) 4 mg tablet Take 1 tablet by mouth daily with breakfast. tiZANidine (ZANAFLEX) 2 mg tablet Take 2 tablets by mouth every 8 hours as needed. amLODIPine (NORVASC) 5 mg tablet Take 1 tablet by mouth once daily. rosuvastatin (CRESTOR) 10 mg tablet Take 1 tablet by mouth daily at bedtime. triamcinolone acetonide (KENALOG) 0.1 % cream Apply 1 application to affected area three times a day. Apply sparingly to area for rash/itching. budesonide (PULMICORT) 0.5 mg/2 mL nebulizer solution mix 2 ampules with saline and apply twice daily hydroCHLOROthiazide 12.5 mg tablet Take by mouth. tkluiavv-dxriwvrpl-kainldlnlenfjh (CORTISPORIN) 3.5-10,000-1 mg/mL-unit/mL-% otic suspension Use 3 Drops in both ears four times daily. pioglitazone (ACTOS) 45 mg tablet Take 1 tablet by mouth once daily. gel base no.41, bulk, (HYDROGEL) gel 1 Dose once daily. omeprazole (PRILOSEC) 40 mg capsule Take 1 capsule by mouth twice daily. budesonide-formoterol (SYMBICORT) 160-4.5 mcg/actuation inhaler Inhale 2 Puffs as instructed twice daily. albuterol (PROVENTIL) 2.5 mg /3 mL (0.083 %) nebulizer solution INHALE WITH 1 VIAL IN NEBULIZER EVERY SIX HOURS NEEDED metoprolol tartrate, short acting, (LOPRESSOR) 25 mg tablet Take 1 tablet by mouth twice daily. lancets (ONE TOUCH DELFreezing Point) 33 gauge 1 Each once daily. blood sugar diagnostic (ONETOUCH ULTRA TEST) test strip 1 Strip before meals and at bedtime. Use as instructed aspirin, enteric coated (ASPIRIN, ENTERIC COATED) 81 mg EC tablet Take 81 mg by mouth once daily. blood sugar diagnostic (ONETOUCH ULTRA TEST) test strip Monitor blood sugar daily and as needed. lancets (TRUEPLUS LANCETS) 33 gauge Monitor blood sugar daily and as needed. ascorbic acid, vitamin C, (VITAMIN C) 500 mg tablet Take by mouth. multivitamin tablet Take by mouth. traMADol (ULTRAM) 50 mg tablet Take 50 mg by mouth every 6 hours as needed for pain. methylcellulose (CITRUCEL ORAL) Take by mouth. diclofenac (VOLTAREN) 1 % topical gel Apply to affected area four times daily. mag carb/aluminum hydrox/algin (GAVISCON ORAL) Take by mouth. B-complex with vitamin C (SUPER B COMPLEX-VITAMIN C ORAL) Take by mouth. FA/mv,Ca,iron,min/lycopene/lut (MULTIVITAL ORAL) Take by mouth. calcium carbonate/vitamin D3 (CALCIUM 500 + D ORAL) Take by mouth. cetirizine HCl (ZYRTEC ORAL) Take by mouth. ubidecarenone (CO Q-10 ORAL) Take by mouth. clotrimazole (LOTRIMIN) 1 % cream Appl (more content not included)... [facility] 07-21-2023 Note HNO ID: [id number] Author: Mariama Bacon MD Service: ? Author Type: Physician Type: Progress Notes Filed: 07/21/2023 11:26 AM Note Text: Subjective Ashwini Baron is a 72 year old female. Ashwini presents today for her Medicare wellness visit. Review of Systems Constitutional: Negative. HENT: Negative. Eyes: Negative. Respiratory: Negative. Cardiovascular: Negative. Gastrointestinal: Negative. Endocrine: Negative. Genitourinary: Negative. Musculoskeletal: Negative. Skin: Negative. Allergic/Immunologic: Negative. Neurological: Negative. Hematological: Negative. Psychiatric/Behavioral: Negative. PAST SURGICAL HISTORY Procedure Laterality Date BREAST BIOPSY Bilateral benign BREAST SURGERY HX CHOLECYSTECTOMY COLONOSCOPY 05/2017 COLONOSCOPY SCREENING 2019 EGD 04/2017 EGD DIAGNOSTIC 01/2023 F SALPINGO-OOPHORECTOMY Left PAST SURGICAL HISTORY OF left TM repair TUBAL LIGATION PAST MEDICAL HISTORY Diagnosis Date Asthma Carotid stenosis Delayed emergence from general anesthesia deep anesthesia 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) 05/22/2022 Diabetes mellitus, type 2 (HCC) Hyperlipidemia Hypertension Sliding hiatal hernia FAMILY HISTORY Problem Relation Age of Onset Colon Cancer Sister 67 Thyroid Cancer Brother Cancer Sister vaginal Social History Tobacco Use Smoking status: Never Smokeless tobacco: Never Vaping Use Vaping Use: Never used Substance Use Topics Alcohol use: Not Currently Drug use: Not Currently ALLERGIES Allergen Reactions Metoclopramide Unknown Sulfamethoxazole-Tr* Unknown Morphine Unknown Acetaminophen Unknown Augmentin [Amoxicil* Rash Cefzil [Cefprozil] Rash Clavulanic Acid Hives Dayquil Allergy 12-* Hives Dextromethorphan Hives Doxylamine Hives Erythromycin Rash Iodinated Contrast * Hives Ivp Dye [Iodine] Unknown knot on head Lincomycin Rash Pseudoephedrine Hives Reglan [Metoclopram* Intolerance Wvxiwun-Wrk-Aii Red* Unknown Other reaction(s): Other Tequin [Gatifloxaci* Rash Doxycycline Unknown, Vomiting Sulfamethoxazole Unknown Trimethoprim Unknown MEDICATIONS: sucralfate (CARAFATE) 1 gram tablet Take 1 g by mouth three times a day. 1/2 hour before meals amLODIPine (NORVASC) 5 mg tablet Take 1 tablet by mouth once daily. rosuvastatin (CRESTOR) 10 mg tablet Take 1 tablet by mouth daily at bedtime. clotrimazole (LOTRIMIN) 1 % cream Apply to affected area two times a day. triamcinolone acetonide (KENALOG) 0.1 % cream Apply 1 application to affected area three times a day. Apply sparingly to area for rash/itching. budesonide (PULMICORT) 0.5 mg/2 mL nebulizer solution mix 2 ampules with saline and apply twice daily hydroCHLOROthiazide 12.5 mg tablet Take by mouth. jsaugfnq-zorcqitgf-uhfcnlixjoxnpv (CORTISPORIN) 3.5-10,000-1 mg/mL-unit/mL-% otic suspension Use 3 Drops in both ears four times daily. pioglitazone (ACTOS) 45 mg tablet Take 1 tablet by mouth once daily. gel base no.41, bulk, (HYDROGEL) gel 1 Dose once daily. budesonide-formoterol (SYMBICORT) 160-4.5 mcg/actuation inhaler Inhale 2 Puffs as instructed twice daily. albuterol (PROVENTIL) 2.5 mg /3 mL (0.083 %) nebulizer solution INHALE WITH 1 VIAL IN NEBULIZER EVERY SIX HOURS NEEDED metoprolol tartrate, short acting, (LOPRESSOR) 25 mg tablet Take 1 tablet by mouth twice daily. lancets (ONE TOUCH DELFreezing Point) 33 gauge 1 Each once daily. blood sugar diagnostic (ONETOUCH ULTRA TEST) test strip 1 Strip before meals and at bedtime. Use as instructed aspirin, enteric coated (ASPIRIN, ENTERIC COATED) 81 mg EC tablet Take 81 mg by mouth once daily. blood sugar diagnostic (ONETOUCH ULTRA TEST) test strip Monitor blood sugar daily and as needed. lancets (TRUEPLUS LANCETS) 33 gauge Monitor blood sugar daily and as needed. ascorbic acid, vitamin C, (VITAMIN C) 500 mg tablet Take by mouth. multivitamin tablet Take by mouth. traMADol (ULTRAM) 50 mg tablet Take 50 mg by mouth every 6 hours as needed for pain. methylcellulose (CITRUCEL ORAL) Take by mouth. diclofenac (VOLTAREN) 1 % topical gel Apply to affected area four times daily. mag carb/aluminum hydrox/algin (GAVISCON ORAL) Take by mouth. B-complex with vitamin C (SUPER B COMPLEX-VITAMIN C ORAL) Take by mouth. FA/mv,Ca,iron,min/lycopene/lut (MULTIVITAL ORAL) Take by mouth. calcium carbonate/vitamin D3 (CALCIUM 500 + D ORAL) Take by mouth. cetirizine HCl (ZYRTEC ORAL) Take by mouth. ubidecarenone (CO Q-10 ORAL) Take by mouth. lisinopril (ZESTRIL) 10 mg tablet Take 1 tablet by mouth two times a day. metFORMIN (GLUCOPHAGE) 500 mg tablet Take 2 tablets by mouth two times a day with meals. montelukast (SINGULAIR) 10 mg tablet Take 1 tablet by mouth daily at bedtime. glimepiride (AMARYL) 4 mg tablet Take 1 tablet by mouth daily with breakfast. omeprazole (PRILOSEC) 40 mg capsule Take 1 capsule by mouth twice daily. Al (more content not included)... [facility] 07-21-2023 Note HNO ID: [id number] Author: Wilson Shipley LPN Service: ? Author Type: LICENSED NURSE Type: Progress Notes Filed: 07/21/2023 11:26 AM Note Text: [employer]TE[employer]CE Urine Albumin:Creatinine Ratio declined Diabetic Foot Exam declined Spirometry declined Hepatitis C Screening declined DTaP,Tdap,Td Vaccine(1 - Tdap) declined Mammogram Screening states will schedule Bone Density Screening Dilated Retinal Exam Dr. Alex Shipley LPN July 21, 2023 10:38 AM [facility] 07-21-2023 Instructions Mariama Bacon MD - 07/21/2023 11:09 AM EST Screening schedule The following prevention plan is recommended: Urine Albumin:Creatinine Ratio Never done Diabetic Foot Exam Never done Spirometry Never done Hepatitis C Screening Never done DTaP,Tdap,Td Vaccine(1 - Tdap) Never done Mammogram Screening Never done Bone Density Screening Never done Advance Directive Discussion Never done Depression Assessment Never done Dilated Retinal Exam due on 10/16/2022 WHAT YOU CAN DO TO PREVENT FALLS Many falls can be prevented. By making some changes, you can lower your chances of falling. Four things YOU can do to prevent falls for you* and your caregiver 1. Begin a regular exercise program Exercise is one of the most important ways to lower your chances of falling. It makes you stronger and helps you feel better. Exercises that improve balance and coordination (like Saroj Chi) are the most helpful. Lack of exercise leads to weakness and increases your chances of falling. Ask your doctor or health care provider about the best type of exercise program for you. 2. Have your health care provider review your medicines Have your doctor or pharmacist review all the medicines you take, even vlvt-zbe-nsikpar medicines. As you get older, the way medicines work in your body can change. Some medicines, or combinations of medicines, can make you sleepy or dizzy and can cause you to fall. 3. Have your vision checked Have your eyes checked by an eye doctor at least once a year. You may be wearing the wrong glasses or have a condition like glaucoma or cataracts that limits your vision. Poor vision can increase your chances of falling. 4. Make your home safer About half of all falls happen at home. To make your home safer: Remove things you can trip over (like papers, books, clothes, and shoes) from stairs and places where you walk. Remove small throw rugs or use double-sided tape to keep the rugs from slipping. Keep items you use often in cabinets you can reach easily without using a step stool. Have grab bars put in next to your toilet and in the tub or shower. Use non-slip mats in the bathtub and on shower floors. Improve the lighting in your home. As you get older, you need brighter lights to see well. Hang light-weight curtains or shades to reduce glare. Have handrails and lights put in on all staircases. Wear shoes both inside and outside the house. Avoid going barefoot or wearing slippers. For more information, contact: Centers for Disease Control and Prevention www.cdc.gov/injury * This information may not apply if you have certain medical conditions. documented in this encounter [facility] 07-21-2023 History of Present illness Narrative Subjective Ashwini Baron is a 72 year old female. Ashwini presents today for her Medicare wellness visit. Review of Systems Constitutional: Negative. HENT: Negative. Eyes: Negative. Respiratory: Negative. Cardiovascular: Negative. Gastrointestinal: Negative. Endocrine: Negative. Genitourinary: Negative. Musculoskeletal: Negative. Skin: Negative. Allergic/Immunologic: Negative. Neurological: Negative. Hematological: Negative. Psychiatric/Behavioral: Negative. PAST SURGICAL HISTORY Procedure Laterality Date BREAST BIOPSY Bilateral benign BREAST SURGERY HX CHOLECYSTECTOMY COLONOSCOPY 05/2017 COLONOSCOPY SCREENING 2019 EGD 04/2017 EGD DIAGNOSTIC 01/2023 F SALPINGO-OOPHORECTOMY Left PAST SURGICAL HISTORY OF left TM repair TUBAL LIGATION PAST MEDICAL HISTORY Diagnosis Date Asthma Carotid stenosis Delayed emergence from general anesthesia deep anesthesia 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) 05/22/2022 Diabetes mellitus, type 2 (HCC) Hyperlipidemia Hypertension Sliding hiatal hernia FAMILY HISTORY Problem Relation Age of Onset Colon Cancer Sister 67 Thyroid Cancer Brother Cancer Sister vaginal Social History Tobacco Use Smoking status: Never Smokeless tobacco: Never Vaping Use Vaping Use: Never used Substance Use Topics Alcohol use: Not Currently Drug use: Not Currently ALLERGIES Allergen Reactions Metoclopramide Unknown Sulfamethoxazole-Tr* Unknown Morphine Unknown Acetaminophen Unknown Augmentin [Amoxicil* Rash Cefzil [Cefprozil] Rash Clavulanic Acid Hives Dayquil Allergy 12-* Hives Dextromethorphan Hives Doxylamine Hives Erythromycin Rash Iodinated Contrast * Hives Ivp Dye [Iodine] Unknown knot on head Lincomycin Rash Pseudoephedrine Hives Reglan [Metoclopram* Intolerance Iebhabh-Lqv-Epe Red* Unknown Other reaction(s): Other Tequin [Gatifloxaci* Rash Doxycycline Unknown, Vomiting Sulfamethoxazole Unknown Trimethoprim Unknown MEDICATIONS: sucralfate (CARAFATE) 1 gram tablet Take 1 g by mouth three times a day. 1/2 hour before meals amLODIPine (NORVASC) 5 mg tablet Take 1 tablet by mouth once daily. rosuvastatin (CRESTOR) 10 mg tablet Take 1 tablet by mouth daily at bedtime. clotrimazole (LOTRIMIN) 1 % cream Apply to affected area two times a day. triamcinolone acetonide (KENALOG) 0.1 % cream Apply 1 application to affected area three times a day. Apply sparingly to area for rash/itching. budesonide (PULMICORT) 0.5 mg/2 mL nebulizer solution mix 2 ampules with saline and apply twice daily hydroCHLOROthiazide 12.5 mg tablet Take by mouth. engvgliu-siymzaphg-toxnzuwfwwkgeg (CORTISPORIN) 3.5-10,000-1 mg/mL-unit/mL-% otic suspension Use 3 Drops in both ears four times daily. pioglitazone (ACTOS) 45 mg tablet Take 1 tablet by mouth once daily. gel base no.41, bulk, (HYDROGEL) gel 1 Dose once daily. budesonide-formoterol (SYMBICORT) 160-4.5 mcg/actuation inhaler Inhale 2 Puffs as instructed twice daily. albuterol (PROVENTIL) 2.5 mg /3 mL (0.083 %) nebulizer solution INHALE WITH 1 VIAL IN NEBULIZER EVERY SIX HOURS NEEDED metoprolol tartrate, short acting, (LOPRESSOR) 25 mg tablet Take 1 tablet by mouth twice daily. lancets (ONE TOUCH DELFreezing Point) 33 gauge 1 Each once daily. blood sugar diagnostic (ONETOUCH ULTRA TEST) test strip 1 Strip before meals and at bedtime. Use as instructed aspirin, enteric coated (ASPIRIN, ENTERIC COATED) 81 mg EC tablet Take 81 mg by mouth once daily. blood sugar diagnostic (ONETOUCH ULTRA TEST) test strip Monitor blood sugar daily and as needed. lancets (TRUEPLUS LANCETS) 33 gauge Monitor blood sugar daily and as needed. ascorbic acid, vitamin C, (VITAMIN C) 500 mg tablet Take by mouth. multivitamin tablet Take by mouth. traMADol (ULTRAM) 50 mg tablet Take 50 mg by mouth every 6 hours as needed for pain. methylcellulose (CITRUCEL ORAL) Take by mouth. diclofenac (VOLTAREN) 1 % topical gel Apply to affected area four times daily. mag carb/aluminum hydrox/algin (GAVISCON ORAL) Take by mouth. B-complex with vitamin C (SUPER B COMPLEX-VITAMIN C ORAL) Take by mouth. FA/mv,Ca,iron,min/lycopene/lut (MULTIVITAL ORAL) Take by mouth. calcium carbonate/vitamin D3 (CALCIUM 500 + D ORAL) Take by mouth. cetirizine HCl (ZYRTEC ORAL) Take by mouth. ubidecarenone (CO Q-10 ORAL) Take by mouth. lisinopril (ZESTRIL) 10 mg tablet Take 1 tablet by mouth two times a day. metFORMIN (GLUCOPHAGE) 500 mg tablet Take 2 tablets by mouth two times a day with meals. montelukast (SINGULAIR) 10 mg tablet Take 1 tablet by mouth daily at bedtime. glimepiride (AMARYL) 4 mg tablet Take 1 tablet by mouth daily with breakfast. omeprazole (PRILOSEC) 40 mg capsule Take 1 capsule by mouth twice daily. Allergies, past surgical history, family history and past medical history were reviewed per this encounter. Medications were reviewed and verified. Objective BP 134/74 (BP Site: Left Arm, BP Position: Sitting, BP Cuff Size: Regular Adult) Pulse 68 Temp 36.4 C (97.6 F) (Temporal) Resp 18 Ht 160 cm (5' 3 ) Wt 82.5 kg (181 lb 12.8 oz) SpO2 100% BMI 32.20 kg/m Physical Exam Vitals reviewed. Constitutional: Appearance: Normal appearance. HENT: Head: Normocephalic and atraumatic. Nose: Nose normal. Eyes: Extraocular Movements: Extraocular movements intact. Pupils: Pupils are equal, round, and reactive to light. Cardiovascular: Rate and Rhythm: Normal rate and regular rhythm. Pulmonary: Effort: Pulmonary effort is normal. Breath sounds: Normal breath sounds. Abdominal: General: Bowel sounds are normal. Palpations: Abdomen is soft. Musculoskeletal: General: Normal range of motion. Cervical back: Normal range of motion and neck supple. Skin: General: Skin is warm and dry. Capillary Refill: Capillary refill takes less than 2 seconds. Neurological: General: No focal deficit present. Mental Status: She is alert and oriented to person, place, and time. Mental status is at baseline. Psychiatric: Mood and Affect: Mood normal. Behavior: Behavior normal. Assessment and Plan Encounter Diagnosis ICD-10-CM 1. Wellness examination Z00.00 2. Encounter for screening for depression Z13.31 DEPRESSION SCREENING/ASSESSMENT 3. Encounter for counseling regarding advance directives Z71.89 ADVANCE CARE PLAN DISCUSSION 4. Hypertension, unspecified type I10 lisinopril (ZESTRIL) 10 mg tablet COMP METABOLIC PANEL 5. Essential (primary) hypertension I10 6. Arteriosclerosis of coronary artery I25.10 7. Paroxysmal atrial fibrillation (HCC) I48.0 8. 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) E11.9 COMP METABOLIC PANEL HGB A1C 9. Screening for deficiency anemia Z13.0 CBC + DIFF 10. Pure hypercholesterolemia E78.00 COMP METABOLIC PANEL LIPID PANEL BASIC All open preventative health maintenance topics discussed with patient in detail. This includes risks and benefits regarding vaccines, cancer screening, healthy life style, and diet. Medicare Health Risk Assessment General Health Exercise: Minutes/Day 0 min Exercise: Days/Week 0 days Alcohol: Daily Use Alcohol: Drinks/Day Patient does not drink Alcohol: 6 or more drinks Feel off balance Concerns: Teeth/Dentures Concerns: Sexual function Troubled by feelings Frequency: Eating healthy diet ADLs requiring help Safety precautions in home/vehicle Smoke, vape, chews tobacco Difficulty hearing Difficulty seeing Current Providers Specialists: I have reviewed specialist-related care of the patient in the medical record. Medical/Family history review Reviewed and updated problem list, medical/surgical/family/social history, medications, and allergies. Opioid use review Opioid Medications (last 90 days) Some values may be hidden. Unless noted otherwise, only the newest values recorded on each date are displayed. Opioid Medications traMADol (ULTRAM) 50 mg tablet Dose: 50 mg EVERY 6 HOURS NEEDED Starting date: (active) Prescribed No opioid use on file in the last 90 days Does patient have risk factors for opioid abuse? Yes Pain overview Current pain concerns and treatment plan reviewed. Patient not currently experiencing pain. Depression screening Depression Screening PHQ-2 Score 07/21/2023 0 Depression screening tool completed and reviewed. Based on score and interview, patient is not at risk for depression. Screening tool discussed with patient, and I recommended no further intervention at this time. Cognitive screening Mini Cog Score: 5 Cognitive screening reviewed and no further action needed (score 3-5) Functional Observation Was the patient's timed Up & Go test unsteady or ? 12 seconds? Yes Advance Care Planning Surrogate decision maker documented and/or advance directives scanned in chart Measurements BP 134/74 Pulse 68 Temp (Src) 97.6 (Temporal) Resp 18 Ht 5' 3 (1.60m) Wt 181 lb 12.8 oz (82.5kg) SpO2 100% BMI 32.21 kg/(m^2). Additional screenings: Hearing Screening (Inadequate exam) Right ear: Left ear: Vision Screening (Inadequate exam) Assessment/Plan Medicare annual wellness visit, subsequent (Z00.00) - Counseled on healthy diet and regular exercise - Fall avoidance information provided - Personalized prevention plan provided [employer]INTENANCE Urine Albumin:Creatinine Ratio declined Diabetic Foot Exam declined Spirometry declined Hepatitis C Screening declined DTaP,Tdap,Td Vaccine(1 - Tdap) declined Mammogram Screening states will schedule Bone Density Screening Dilated Retinal Exam Dr. Alex Shipley LPN July 21, 2023 10:38 AM documented in this encounter [facility] 07-12-2023 Note HNO ID: [id number] Author: Mariama Bacon MD Service: ? Author Type: Physician Type: Progress Notes Filed: 07/12/2023 2:27 PM Note Text: Subjective Ashwini Baron is a 72 year old female. Ashwini presents today for elevated blood pressure readings. Her hydrochlorothiazide was stopped by her rn appeals due to it drying out her nose subsequently her blood pressure readings have been much higher. She was seen in [facility] and was informed to raise her lisinopril to 10 mg twice daily. She has yet to start this. Review of Systems Constitutional: Negative. HENT: Negative. Eyes: Negative. Respiratory: Negative. Cardiovascular: Negative. Gastrointestinal: Negative. Endocrine: Negative. Genitourinary: Negative. Musculoskeletal: Negative. Skin: Negative. Allergic/Immunologic: Negative. Neurological: Negative. Hematological: Negative. Psychiatric/Behavioral: Negative. PAST SURGICAL HISTORY Procedure Laterality Date BREAST BIOPSY Bilateral benign BREAST SURGERY HX CHOLECYSTECTOMY COLONOSCOPY 05/2017 COLONOSCOPY SCREENING 2019 EGD 04/2017 EGD DIAGNOSTIC 01/2023 F SALPINGO-OOPHORECTOMY Left PAST SURGICAL HISTORY OF left TM repair TUBAL LIGATION PAST MEDICAL HISTORY Diagnosis Date Asthma Carotid stenosis Delayed emergence from general anesthesia deep anesthesia 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) 05/22/2022 Diabetes mellitus, type 2 (HCC) Hyperlipidemia Hypertension Sliding hiatal hernia FAMILY HISTORY Problem Relation Age of Onset Colon Cancer Sister 67 Thyroid Cancer Brother Cancer Sister vaginal Social History Tobacco Use Smoking status: Never Smokeless tobacco: Never Vaping Use Vaping Use: Never used Substance Use Topics Alcohol use: Not Currently Drug use: Not Currently ALLERGIES Allergen Reactions Metoclopramide Other: See Comments Sulfamethoxazole-Tr* Other: See Comments Morphine Other: See Comments Acetaminophen Unknown Augmentin [Amoxicil* Rash Cefzil [Cefprozil] Rash Clavulanic Acid Hives Dayquil Allergy 12-* Hives Dextromethorphan Hives Doxylamine Hives Erythromycin Rash Iodinated Contrast * Hives Ivp Dye [Iodine] Other: See Comments knot on head Lincomycin Rash Pseudoephedrine Hives Reglan [Metoclopram* Intolerance Qttfany-Fyu-Mul Red* Unknown Other reaction(s): Other Tequin [Gatifloxaci* Rash Doxycycline Unknown, Vomiting Sulfamethoxazole Unknown Trimethoprim Unknown MEDICATIONS: lisinopril (ZESTRIL) 10 mg tablet Take 1 tablet by mouth once daily. (Patient taking differently: Take 10 mg by mouth two times a day.) clotrimazole (LOTRIMIN) 1 % cream Apply to affected area two times a day. triamcinolone acetonide (KENALOG) 0.1 % cream Apply 1 application to affected area three times a day. Apply sparingly to area for rash/itching. budesonide (PULMICORT) 0.5 mg/2 mL nebulizer solution mix 2 ampules with saline and apply twice daily vvwlpmbv-nevxozium-acyphpooqbmxra (CORTISPORIN) 3.5-10,000-1 mg/mL-unit/mL-% otic suspension Use 3 Drops in both ears four times daily. pioglitazone (ACTOS) 45 mg tablet Take 1 tablet by mouth once daily. gel base no.41, bulk, (HYDROGEL) gel 1 Dose once daily. budesonide-formoterol (SYMBICORT) 160-4.5 mcg/actuation inhaler Inhale 2 Puffs as instructed twice daily. albuterol (PROVENTIL) 2.5 mg /3 mL (0.083 %) nebulizer solution INHALE WITH 1 VIAL IN NEBULIZER EVERY SIX HOURS NEEDED metoprolol tartrate, short acting, (LOPRESSOR) 25 mg tablet Take 1 tablet by mouth twice daily. lancets (ONE TOUCH DELICA) 33 gauge 1 Each once daily. blood sugar diagnostic (ONETOUCH ULTRA TEST) test strip 1 Strip before meals and at bedtime. Use as instructed aspirin, enteric coated (ASPIRIN, ENTERIC COATED) 81 mg EC tablet Take 81 mg by mouth once daily. blood sugar diagnostic (ONETOUCH ULTRA TEST) test strip Monitor blood sugar daily and as needed. lancets (TRUEPLUS LANCETS) 33 gauge Monitor blood sugar daily and as needed. metFORMIN (GLUCOPHAGE) 500 mg tablet Take 2 tablets by mouth twice daily with meals. ascorbic acid, vitamin C, (VITAMIN C) 500 mg tablet Take by mouth. multivitamin tablet Take by mouth. montelukast (SINGULAIR) 10 mg tablet Take 1 tablet by mouth daily at bedtime. glimepiride (AMARYL) 4 mg tablet Take 1 tablet by mouth daily with breakfast. traMADol (ULTRAM) 50 mg tablet Take 50 mg by mouth every 6 hours as needed for pain. methylcellulose (CITRUCEL ORAL) Take by mouth. diclofenac (VOLTAREN) 1 % topical gel Apply to affected area four times daily. mag carb/aluminum hydrox/algin (GAVISCON ORAL) Take by mouth. B-complex with vitamin C (SUPER B COMPLEX-VITAMIN C ORAL) Take by mouth. FA/mv,Ca,iron,min/lycopene/lut (MULTIVITAL ORAL) Take by mouth. calcium carbonate/vitamin D3 (CALCIUM 500 + D ORAL) Take by mouth. cetirizine HCl (ZYRTEC ORAL) Take by mouth. ubidecarenone (CO Q-10 ORAL) Take by mouth. (more content not included)... [facility] 07-12-2023 Note HNO ID: [id number] Author: Wilson Shipley LPN Service: ? Author Type: LICENSED NURSE Type: Progress Notes Filed: 07/12/2023 2:27 PM Note Text: Patient in the office today for a follow up exam after being seen at [facility] on 07/10/2023 for hypertension. Lisinopril was increased to 10 mg BID instead of once daily. Patient states her BP was 196/100. Patient states that rn appeals informed her to stop taking Hydrochlorothiazide because it was drying her nose out. Patient has not been taking medication for a little over a month Patient states she has a follow up with cardiology in September. Patient also has complaint of numbness in left hand up to mid back. Patient has been seeing chiropractor, and states he manipulated it and it went away but it is now back. No refills needed Wilson Shipley LPN July 12, 2023 1:35 PM [facility] 07-12-2023 History of Present illness Narrative Subjective Ashwini Baron is a 72 year old female. Ashwini presents today for elevated blood pressure readings. Her hydrochlorothiazide was stopped by her rn appeals due to it drying out her nose subsequently her blood pressure readings have been much higher. She was seen in [facility] [place] and was informed to raise her lisinopril to 10 mg twice daily. She has yet to start this. Review of Systems Constitutional: Negative. HENT: Negative. Eyes: Negative. Respiratory: Negative. Cardiovascular: Negative. Gastrointestinal: Negative. Endocrine: Negative. Genitourinary: Negative. Musculoskeletal: Negative. Skin: Negative. Allergic/Immunologic: Negative. Neurological: Negative. Hematological: Negative. Psychiatric/Behavioral: Negative. PAST SURGICAL HISTORY Procedure Laterality Date BREAST BIOPSY Bilateral benign BREAST SURGERY HX CHOLECYSTECTOMY COLONOSCOPY 05/2017 COLONOSCOPY SCREENING 2019 EGD 04/2017 EGD DIAGNOSTIC 01/2023 F SALPINGO-OOPHORECTOMY Left PAST SURGICAL HISTORY OF left TM repair TUBAL LIGATION PAST MEDICAL HISTORY Diagnosis Date Asthma Carotid stenosis Delayed emergence from general anesthesia deep anesthesia 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) 05/22/2022 Diabetes mellitus, type 2 (HCC) Hyperlipidemia Hypertension Sliding hiatal hernia FAMILY HISTORY Problem Relation Age of Onset Colon Cancer Sister 67 Thyroid Cancer Brother Cancer Sister vaginal Social History Tobacco Use Smoking status: Never Smokeless tobacco: Never Vaping Use Vaping Use: Never used Substance Use Topics Alcohol use: Not Currently Drug use: Not Currently ALLERGIES Allergen Reactions Metoclopramide Other: See Comments Sulfamethoxazole-Tr* Other: See Comments Morphine Other: See Comments Acetaminophen Unknown Augmentin [Amoxicil* Rash Cefzil [Cefprozil] Rash Clavulanic Acid Hives Dayquil Allergy 12-* Hives Dextromethorphan Hives Doxylamine Hives Erythromycin Rash Iodinated Contrast * Hives Ivp Dye [Iodine] Other: See Comments knot on head Lincomycin Rash Pseudoephedrine Hives Reglan [Metoclopram* Intolerance Gfbzdxd-Wnj-Pxk Red* Unknown Other reaction(s): Other Tequin [Gatifloxaci* Rash Doxycycline Unknown, Vomiting Sulfamethoxazole Unknown Trimethoprim Unknown MEDICATIONS: lisinopril (ZESTRIL) 10 mg tablet Take 1 tablet by mouth once daily. (Patient taking differently: Take 10 mg by mouth two times a day.) clotrimazole (LOTRIMIN) 1 % cream Apply to affected area two times a day. triamcinolone acetonide (KENALOG) 0.1 % cream Apply 1 application to affected area three times a day. Apply sparingly to area for rash/itching. budesonide (PULMICORT) 0.5 mg/2 mL nebulizer solution mix 2 ampules with saline and apply twice daily xrxlesgm-obvemistx-jbqvyjfmmmekwy (CORTISPORIN) 3.5-10,000-1 mg/mL-unit/mL-% otic suspension Use 3 Drops in both ears four times daily. pioglitazone (ACTOS) 45 mg tablet Take 1 tablet by mouth once daily. gel base no.41, bulk, (HYDROGEL) gel 1 Dose once daily. budesonide-formoterol (SYMBICORT) 160-4.5 mcg/actuation inhaler Inhale 2 Puffs as instructed twice daily. albuterol (PROVENTIL) 2.5 mg /3 mL (0.083 %) nebulizer solution INHALE WITH 1 VIAL IN NEBULIZER EVERY SIX HOURS NEEDED metoprolol tartrate, short acting, (LOPRESSOR) 25 mg tablet Take 1 tablet by mouth twice daily. lancets (ONE TOUCH DELICA) 33 gauge 1 Each once daily. blood sugar diagnostic (ONETOUCH ULTRA TEST) test strip 1 Strip before meals and at bedtime. Use as instructed aspirin, enteric coated (ASPIRIN, ENTERIC COATED) 81 mg EC tablet Take 81 mg by mouth once daily. blood sugar diagnostic (ONETOUCH ULTRA TEST) test strip Monitor blood sugar daily and as needed. lancets (TRUEPLUS LANCETS) 33 gauge Monitor blood sugar daily and as needed. metFORMIN (GLUCOPHAGE) 500 mg tablet Take 2 tablets by mouth twice daily with meals. ascorbic acid, vitamin C, (VITAMIN C) 500 mg tablet Take by mouth. multivitamin tablet Take by mouth. montelukast (SINGULAIR) 10 mg tablet Take 1 tablet by mouth daily at bedtime. glimepiride (AMARYL) 4 mg tablet Take 1 tablet by mouth daily with breakfast. traMADol (ULTRAM) 50 mg tablet Take 50 mg by mouth every 6 hours as needed for pain. methylcellulose (CITRUCEL ORAL) Take by mouth. diclofenac (VOLTAREN) 1 % topical gel Apply to affected area four times daily. mag carb/aluminum hydrox/algin (GAVISCON ORAL) Take by mouth. B-complex with vitamin C (SUPER B COMPLEX-VITAMIN C ORAL) Take by mouth. FA/mv,Ca,iron,min/lycopene/lut (MULTIVITAL ORAL) Take by mouth. calcium carbonate/vitamin D3 (CALCIUM 500 + D ORAL) Take by mouth. cetirizine HCl (ZYRTEC ORAL) Take by mouth. ubidecarenone (CO Q-10 ORAL) Take by mouth. amLODIPine (NORVASC) 5 mg tablet Take 1 tablet by mouth once daily. rosuvastatin (CRESTOR) 10 mg tablet Take 1 tablet by mouth daily at bedtime. hydroCHLOROthiazide 12.5 mg tablet Take by mouth. (Patient not taking: Reported on 07/10/2023) omeprazole (PRILOSEC) 40 mg capsule Take 1 capsule by mouth twice daily. Allergies, past surgical history, family history and past medical history were reviewed per this encounter. Medications were reviewed and verified. Objective BP 138/82 (BP Site: Left Arm, BP Position: Sitting, BP Cuff Size: Regular Adult) Pulse 74 Temp 36.4 C (97.6 F) (Temporal) Resp 18 Ht 160 cm (5' 3 ) Wt 82.4 kg (181 lb 9.6 oz) SpO2 97% BMI 32.17 kg/m Physical Exam Vitals reviewed. Constitutional: Appearance: Normal appearance. HENT: Head: Normocephalic and atraumatic. Nose: Nose normal. Eyes: Extraocular Movements: Extraocular movements intact. Pupils: Pupils are equal, round, and reactive to light. Cardiovascular: Rate and Rhythm: Normal rate and regular rhythm. Pulmonary: Effort: Pulmonary effort is normal. Breath sounds: Normal breath sounds. Abdominal: General: Bowel sounds are normal. Palpations: Abdomen is soft. Musculoskeletal: General: Normal range of motion. Cervical back: Normal range of motion and neck supple. Skin: General: Skin is warm and dry. Capillary Refill: Capillary refill takes less than 2 seconds. Neurological: General: No focal deficit present. Mental Status: She is alert and oriented to person, place, and time. Mental status is at baseline. Psychiatric: Mood and Affect: Mood normal. Behavior: Behavior normal. Assessment and Plan Encounter Diagnosis ICD-10-CM 1. Hypertension, essential I10 2. Pure hypercholesterolemia E78.00 Continue lisinopril 20 mg daily. Add Norvasc 5 mg daily. Continue to hold hydrochlorothiazide. Monitor blood pressure regularly. Change Zocor to Crestor due to interaction with Norvasc. Mariama Bacon MD Patient in the office today for a follow up exam after being seen at [facility] on 07/10/2023 for hypertension. Lisinopril was increased to 10 mg BID instead of once daily. Patient states her BP was 196/100. Patient states that rn appeals informed her to stop taking Hydrochlorothiazide because it was drying her nose out. Patient has not been taking medication for a little over a month Patient states she has a follow up with cardiology in September. Patient also has complaint of numbness in left hand up to mid back. Patient has been seeing chiropractor, and states he manipulated it and it went away but it is now back. No refills needed Wilosn Shipley LPN July 12, 2023 1:35 PM documented in this encounter [facility] 07-10-2023 Note HNO ID: [id number] Author: Marva Madera APRN.ECONOMIC DEVELOPER Service: ? Author Type: Nurse Practitioner Type: Progress Notes Filed: 07/10/2023 11:25 AM Note Text: Subjective Blood Pressure Pertinent negatives include no chest pain, orthopnea, palpitations or shortness of breath. Ashwini Baron is a 72 year old female who presents for concern about elevated blood pressure readings for the past week. BPs at home have been 180-190s over 95-100. She is currently taking: Lisinopril 10 mg daily Metoprolol 25 mg daily. Was previously taking lisinopril 20 mg BID, this was reduced after a recent cardiac procedure. She was previously on HCTZ 12.5 mg daily, her ENT had her stop taking this due to nasal dryness and he is concerned she has Sjogren's syndrome. She has a PCP and a laborer tree tapping. She can see her PCP the first week of July. She denies any current symptoms of concern regarding BP. Review of Systems Constitutional: Negative for chills and fever. Respiratory: Negative for cough and shortness of breath. Cardiovascular: Negative for chest pain, palpitations and orthopnea. Neurological: Negative for dizziness. BP 170/80 Pulse 84 Temp 36.4 ?C (97.5 ?F) Resp 18 Wt 82.6 kg (182 lb) SpO2 100% BMI 32.24 kg/m? PAST MEDICAL HISTORY Diagnosis Date Asthma Carotid stenosis Delayed emergence from general anesthesia deep anesthesia 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) 05/22/2022 Diabetes mellitus, type 2 (HCC) Hyperlipidemia Hypertension Sliding hiatal hernia PAST SURGICAL HISTORY Procedure Laterality Date BREAST BIOPSY Bilateral benign BREAST SURGERY HX CHOLECYSTECTOMY COLONOSCOPY 05/2017 COLONOSCOPY SCREENING 2019 EGD 04/2017 EGD DIAGNOSTIC 01/2023 F SALPINGO-OOPHORECTOMY Left PAST SURGICAL HISTORY OF left TM repair TUBAL LIGATION ALLERGIES Metoclopramide, Sulfamethoxazole-Trimethoprim, Morphine, Acetaminophen, Augmentin [Amoxicillin-Pot Clavulanate], Cefzil [Cefprozil], Clavulanic Acid, Dayquil Allergy 12-Hr, Dextromethorphan, Doxylamine, Erythromycin, Iodinated Contrast Media, Ivp Dye [Iodine], Lincomycin, Pseudoephedrine, Reglan [Metoclopramide Hcl], Hjqqspq-Azb-Eks Reductase Inhibitors, Tequin [Gatifloxacin], Doxycycline, Sulfamethoxazole, and Trimethoprim MEDICATIONS clotrimazole (LOTRIMIN) 1 % cream Apply to affected area two times a day. triamcinolone acetonide (KENALOG) 0.1 % cream Apply 1 application to affected area three times a day. Apply sparingly to area for rash/itching. budesonide (PULMICORT) 0.5 mg/2 mL nebulizer solution mix 2 ampules with saline and apply twice daily sucralfate (CARAFATE) 1 gram tablet Take 1 tablet by mouth three times daily. Take on empty stomach and avoid eating or drinking for 30 mins after taking. lisinopril (ZESTRIL) 10 mg tablet Take 1 tablet by mouth every afternoon. bbkpzzon-wlniqkjuc-razwgxmnjilqor (CORTISPORIN) 3.5-10,000-1 mg/mL-unit/mL-% otic suspension Use 3 Drops in both ears four times daily. pioglitazone (ACTOS) 45 mg tablet Take 1 tablet by mouth once daily. gel base no.41, bulk, (HYDROGEL) gel 1 Dose once daily. budesonide-formoterol (SYMBICORT) 160-4.5 mcg/actuation inhaler Inhale 2 Puffs as instructed twice daily. albuterol (PROVENTIL) 2.5 mg /3 mL (0.083 %) nebulizer solution INHALE WITH 1 VIAL IN NEBULIZER EVERY SIX HOURS NEEDED metoprolol tartrate, short acting, (LOPRESSOR) 25 mg tablet Take 1 tablet by mouth twice daily. lancets (ONE [employer]) 33 gauge 1 Each once daily. blood sugar diagnostic (ONETOUCH ULTRA TEST) test strip 1 Strip before meals and at bedtime. Use as instructed aspirin, enteric coated (ASPIRIN, ENTERIC COATED) 81 mg EC tablet Take 81 mg by mouth once daily. blood sugar diagnostic (ONETOUCH ULTRA TEST) test strip Monitor blood sugar daily and as needed. lancets (TRUEPLUS LANCETS) 33 gauge Monitor blood sugar daily and as needed. metFORMIN (GLUCOPHAGE) 500 mg tablet Take 2 tablets by mouth twice daily with meals. ascorbic acid, vitamin C, (VITAMIN C) 500 mg tablet Take by mouth. multivitamin tablet Take by mouth. simvastatin (ZOCOR) 40 mg tablet Take 1 tablet by mouth daily at bedtime. montelukast (SINGULAIR) 10 mg tablet Take 1 tablet by mouth daily at bedtime. glimepiride (AMARYL) 4 mg tablet Take 1 tablet by mouth daily with breakfast. traMADol (ULTRAM) 50 mg tablet Take 50 mg by mouth every 6 hours as needed for pain. methylcellulose (CITRUCEL ORAL) Take by mouth. diclofenac (VOLTAREN) 1 % topical gel Apply to affected area four times daily. mag carb/aluminum hydrox/algin (GAVISCON ORAL) Take by mouth. B-complex with vitamin C (SUPER B COMPLEX-VITAMIN C ORAL) Take by mouth. FA/mv,Ca,iron,min/lycopene/lut (MULTIVITAL ORAL) Take by mouth. calcium carbonate/vitamin D3 (CALCIUM 500 + D ORAL) Take by mouth. cetirizine HCl (ZYRTEC ORAL) Take by mouth. ubidecarenone (CO Q-10 ORAL) Take by mouth. elis (more content not included)... [facility] 07-10-2023 Instructions Marva Madera, PATRICIA.ECONOMIC DEVELOPER - 07/10/2023 11:25 AM EST ASSESSMENT/PLAN: 1. Hypertension, unspecified type - ICD9: 401.9, ICD10: I10 - Uncontrolled - Continue current medications - Increase lisinopril to 10 mg TWICE daily instead of once daily. Follow up with PCP or laborer tree tapping for further concerns. - LISINOPRIL 10 MG TABLET - Follow-up with your PCP in 3-5 days if symptoms have not improved or sooner if symptoms worsen - Discussed red flags and need for immediate medical evaluation if any occur. - Discussed supportive care treatment with fluids, rest and analgesia. - Discussed expected course of illness Marva Madera APRN.ECONOMIC DEVELOPER documented in this encounter [facility] 07-10-2023 History of Present illness Narrative Subjective Blood Pressure Pertinent negatives include no chest pain, orthopnea, palpitations or shortness of breath. Ashwini Baron is a 72 year old female who presents for concern about elevated blood pressure readings for the past week. BPs at home have been 180-190s over 95-100. She is currently taking: Lisinopril 10 mg daily Metoprolol 25 mg daily. Was previously taking lisinopril 20 mg BID, this was reduced after a recent cardiac procedure. She was previously on HCTZ 12.5 mg daily, her ENT had her stop taking this due to nasal dryness and he is concerned she has Sjogren's syndrome. She has a PCP and a laborer tree tapping. She can see her PCP the first week of July. She denies any current symptoms of concern regarding BP. Review of Systems Constitutional: Negative for chills and fever. Respiratory: Negative for cough and shortness of breath. Cardiovascular: Negative for chest pain, palpitations and orthopnea. Neurological: Negative for dizziness. BP 170/80 Pulse 84 Temp 36.4 C (97.5 F) Resp 18 Wt 82.6 kg (182 lb) SpO2 100% BMI 32.24 kg/m PAST MEDICAL HISTORY Diagnosis Date Asthma Carotid stenosis Delayed emergence from general anesthesia deep anesthesia 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) 05/22/2022 Diabetes mellitus, type 2 (HCC) Hyperlipidemia Hypertension Sliding hiatal hernia PAST SURGICAL HISTORY Procedure Laterality Date BREAST BIOPSY Bilateral benign BREAST SURGERY HX CHOLECYSTECTOMY COLONOSCOPY 05/2017 COLONOSCOPY SCREENING 2019 EGD 04/2017 EGD DIAGNOSTIC 01/2023 F SALPINGO-OOPHORECTOMY Left PAST SURGICAL HISTORY OF left TM repair TUBAL LIGATION ALLERGIES Metoclopramide, Sulfamethoxazole-Trimethoprim, Morphine, Acetaminophen, Augmentin [Amoxicillin-Pot Clavulanate], Cefzil [Cefprozil], Clavulanic Acid, Dayquil Allergy 12-Hr, Dextromethorphan, Doxylamine, Erythromycin, Iodinated Contrast Media, Ivp Dye [Iodine], Lincomycin, Pseudoephedrine, Reglan [Metoclopramide Hcl], Iqqzusp-Ucc-Jrm Reductase Inhibitors, Tequin [Gatifloxacin], Doxycycline, Sulfamethoxazole, and Trimethoprim MEDICATIONS clotrimazole (LOTRIMIN) 1 % cream Apply to affected area two times a day. triamcinolone acetonide (KENALOG) 0.1 % cream Apply 1 application to affected area three times a day. Apply sparingly to area for rash/itching. budesonide (PULMICORT) 0.5 mg/2 mL nebulizer solution mix 2 ampules with saline and apply twice daily sucralfate (CARAFATE) 1 gram tablet Take 1 tablet by mouth three times daily. Take on empty stomach and avoid eating or drinking for 30 mins after taking. lisinopril (ZESTRIL) 10 mg tablet Take 1 tablet by mouth every afternoon. xyrhcixg-ktdfawrgl-kholhwmnfnxqzf (CORTISPORIN) 3.5-10,000-1 mg/mL-unit/mL-% otic suspension Use 3 Drops in both ears four times daily. pioglitazone (ACTOS) 45 mg tablet Take 1 tablet by mouth once daily. gel base no.41, bulk, (HYDROGEL) gel 1 Dose once daily. budesonide-formoterol (SYMBICORT) 160-4.5 mcg/actuation inhaler Inhale 2 Puffs as instructed twice daily. albuterol (PROVENTIL) 2.5 mg /3 mL (0.083 %) nebulizer solution INHALE WITH 1 VIAL IN NEBULIZER EVERY SIX HOURS NEEDED metoprolol tartrate, short acting, (LOPRESSOR) 25 mg tablet Take 1 tablet by mouth twice daily. lancets (ONE TOUCH DELICA) 33 gauge 1 Each once daily. blood sugar diagnostic (ONETOUCH ULTRA TEST) test strip 1 Strip before meals and at bedtime. Use as instructed aspirin, enteric coated (ASPIRIN, ENTERIC COATED) 81 mg EC tablet Take 81 mg by mouth once daily. blood sugar diagnostic (ONETOUCH ULTRA TEST) test strip Monitor blood sugar daily and as needed. lancets (TRUEPLUS LANCETS) 33 gauge Monitor blood sugar daily and as needed. metFORMIN (GLUCOPHAGE) 500 mg tablet Take 2 tablets by mouth twice daily with meals. ascorbic acid, vitamin C, (VITAMIN C) 500 mg tablet Take by mouth. multivitamin tablet Take by mouth. simvastatin (ZOCOR) 40 mg tablet Take 1 tablet by mouth daily at bedtime. montelukast (SINGULAIR) 10 mg tablet Take 1 tablet by mouth daily at bedtime. glimepiride (AMARYL) 4 mg tablet Take 1 tablet by mouth daily with breakfast. traMADol (ULTRAM) 50 mg tablet Take 50 mg by mouth every 6 hours as needed for pain. methylcellulose (CITRUCEL ORAL) Take by mouth. diclofenac (VOLTAREN) 1 % topical gel Apply to affected area four times daily. mag carb/aluminum hydrox/algin (GAVISCON ORAL) Take by mouth. B-complex with vitamin C (SUPER B COMPLEX-VITAMIN C ORAL) Take by mouth. FA/mv,Ca,iron,min/lycopene/lut (MULTIVITAL ORAL) Take by mouth. calcium carbonate/vitamin D3 (CALCIUM 500 + D ORAL) Take by mouth. cetirizine HCl (ZYRTEC ORAL) Take by mouth. ubidecarenone (CO Q-10 ORAL) Take by mouth. lisinopril (ZESTRIL) 10 mg tablet Take 1 tablet by mouth once daily. hydroCHLOROthiazide 12.5 mg tablet Take by mouth. (Patient not taking: Reported on 07/10/2023) omeprazole (PRILOSEC) 40 mg capsule Take 1 capsule by mouth twice daily. FAMILY HISTORY Problem Relation Age of Onset Colon Cancer Sister 67 Thyroid Cancer Brother Cancer Sister vaginal Social History Tobacco Use Smoking status: Never Smokeless tobacco: Never Vaping Use Vaping Use: Never used Substance Use Topics Alcohol use: Not Currently Drug use: Not Currently Objective Physical Exam Vitals and nursing note reviewed. Constitutional: General: She is not in acute distress. Appearance: Normal appearance. She is not ill-appearing. Cardiovascular: Rate and Rhythm: Normal rate and regular rhythm. Heart sounds: Normal heart sounds. Pulmonary: Effort: Pulmonary effort is normal. No respiratory distress. Breath sounds: Normal breath sounds. No wheezing or rales. Skin: General: Skin is warm and dry. Findings: No erythema or rash. Neurological: Mental Status: She is alert. ASSESSMENT/PLAN: 1. Hypertension, unspecified type - ICD9: 401.9, ICD10: I10 - Uncontrolled - Continue current medications - Increase lisinopril to 10 mg TWICE daily instead of once daily. Follow up with PCP or laborer tree tapping for further concerns. - LISINOPRIL 10 MG TABLET - Follow-up with your PCP in 3-5 days if symptoms have not improved or sooner if symptoms worsen - Discussed red flags and need for immediate medical evaluation if any occur. - Discussed supportive care treatment with fluids, rest and analgesia. - Discussed expected course of illness Marva Madera APRN.ECONOMIC DEVELOPER documented in this encounter [facility] 06-29-2023 Miscellaneous Notes Pt notified that medication is a non covered medication and will need to purchase out of pocket. Yajaira Forbes LPN [employer] submitted for Lotrisone cream. Will await further response from pt's insurance. Yajaira Forbes LPN documented in this encounter [facility] 06-24-2023 Note HNO ID: [id number] Author: Savita Miller APRN.YULY Service: ? Author Type: Nurse Practitioner Type: Progress Notes Filed: 06/24/2023 8:59 AM Note Text: Subjective The history is provided by the patient. No language tutor was used. HPI Ashwini Baron is a 72 year old female who presents today for CC of itchy rash on back for a week. She was recently tested for allergies and rash developed after. She was mildly allergic to mold. She also has a rash under breast. H/o yeast infection 2 months ago. BP 149/69 Pulse 97 Temp 36.8 ?C (98.2 ?F) Resp 20 Wt 80.7 kg (178 lb) SpO2 98% BMI 31.53 kg/m? Social History Tobacco Use Smoking status: Never Smokeless tobacco: Never Vaping Use Vaping Use: Never used Substance Use Topics Alcohol use: Not Currently Drug use: Not Currently PAST MEDICAL HISTORY Diagnosis Date Asthma Carotid stenosis Delayed emergence from general anesthesia deep anesthesia 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) 05/22/2022 Diabetes mellitus, type 2 (HCC) Hyperlipidemia Hypertension Sliding hiatal hernia I have confirmed and edited as necessary, the [facility] Review of Systems Constitutional: Negative for chills and fever. Respiratory: Negative for shortness of breath. Musculoskeletal: Negative for joint pain and myalgias. Skin: Positive for itching and rash. All other systems reviewed and are negative. Objective Physical Exam Vitals and nursing note reviewed. Pulmonary: Effort: Pulmonary effort is normal. Skin: General: Skin is warm and dry. Findings: Erythema and rash present. Rash is papular. Comments: Blue line - Erythematous pruritc well demarcated plaques, with raised scaly border -Red lines, papaular, erythematous, papular Neurological: Mental Status: She is alert and oriented to person, place, and time. Psychiatric: Mood and Affect: Affect normal. ASSESSMENT/PLAN: 1. Rash - ICD9: 782.1, ICD10: R21 Rash on back appears to be irritant dermatitis Pepcid/zyrtec Triamcinolone cream If no improvement follow up with dermatology 2. Tinea cruris - ICD9: 110.3, ICD10: B35.6 CLotriamzole cream as ordered Antifungal powder Follow up with dermatology if no improvement. Diagnosis and treatment plan were discussed and questions were answered to the patient's satisfaction. Pt acknowledged understanding of concepts and follow up plan. Specific signs and symptoms that would indicate the need for higher level of care were discussed in detail warranting prompt ER evaluation. Savita Miller APRN.CNP [facility] 06-24-2023 Instructions Savita Miller APRN.CNP - 06/24/2023 8:48 AM EST Zyrtec 10 mg twice a day for 10 day Pepcid 20 mgt twice a day for 10 day Triamcinolone twice a day for itchy rash Clotrimazole under breast twice a day until rash is gone and then use for a week later Zeasorb powder for yeast infection Follow up with dermatology if no improvment documented in this encounter [facility] 06-24-2023 History of Present illness Narrative Images from the original note were not included. Subjective The history is provided by the patient. No language tutor was used. HPI Ashwini Baron is a 72 year old female who presents today for CC of itchy rash on back for a week. She was recently tested for allergies and rash developed after. She was mildly allergic to mold. She also has a rash under breast. H/o yeast infection 2 months ago. BP 149/69 Pulse 97 Temp 36.8 C (98.2 F) Resp 20 Wt 80.7 kg (178 lb) SpO2 98% BMI 31.53 kg/m Social History Tobacco Use Smoking status: Never Smokeless tobacco: Never Vaping Use Vaping Use: Never used Substance Use Topics Alcohol use: Not Currently Drug use: Not Currently PAST MEDICAL HISTORY Diagnosis Date Asthma Carotid stenosis Delayed emergence from general anesthesia deep anesthesia 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) 05/22/2022 Diabetes mellitus, type 2 (HCC) Hyperlipidemia Hypertension Sliding hiatal hernia I have confirmed and edited as necessary, the [facility] Review of Systems Constitutional: Negative for chills and fever. Respiratory: Negative for shortness of breath. Musculoskeletal: Negative for joint pain and myalgias. Skin: Positive for itching and rash. All other systems reviewed and are negative. Objective Physical Exam Vitals and nursing note reviewed. Pulmonary: Effort: Pulmonary effort is normal. Skin: General: Skin is warm and dry. Findings: Erythema and rash present. Rash is papular. Comments: Blue line - Erythematous pruritc well demarcated plaques, with raised scaly border -Red lines, papaular, erythematous, papular Neurological: Mental Status: She is alert and oriented to person, place, and time. Psychiatric: Mood and Affect: Affect normal. ASSESSMENT/PLAN: 1. Rash - ICD9: 782.1, ICD10: R21 Rash on back appears to be irritant dermatitis Pepcid/zyrtec Triamcinolone cream If no improvement follow up with dermatology 2. Tinea cruris - ICD9: 110.3, ICD10: B35.6 CLotriamzole cream as ordered Antifungal powder Follow up with dermatology if no improvement. Diagnosis and treatment plan were discussed and questions were answered to the patient's satisfaction. Pt acknowledged understanding of concepts and follow up plan. Specific signs and symptoms that would indicate the need for higher level of care were discussed in detail warranting prompt ER evaluation. Savita Miller APRN.YULY documented in this encounter [facility] 06-12-2023 Note HNO ID: [id number] Author: Anum Davis APRN.CNP Service: ? Author Type: Nurse Practitioner Type: Progress Notes Filed: 06/12/2023 8:34 AM Note Text: This note was created using Songfor. Subjective Ashwini Baron is a 72 year old female. HPI patient states last Wednesday that she had went off her allergy medicine and then started with a skin rash. For the last 3 days she started noticing a itchy red rash underneath her breast and in the groin area. She has tried ecbw-ddr-keumfly creams that are not helping her much. Review of Systems Skin: Positive for rash. Objective BP 144/76 Pulse 91 Temp 36.3 ?C (97.3 ?F) Resp 21 Wt 81 kg (178 lb 9.6 oz) SpO2 99% BMI 31.64 kg/m? Physical Exam Pulmonary: Effort: Pulmonary effort is normal. Skin: Findings: Rash (under b/l breast and groin area) present. Neurological: Mental Status: She is alert. ASSESSMENT/PLAN: 1. Skin yeast infection - ICD9: 112.3, ICD10: B37.2 Diflucan 1 dose Lotrisone cream BID x 7 days Follow up as needed. Anum Davis APRN.CNP Medical Decision Making: Problems: Low: Acute, uncomplicated illness or injury Risk: Low: Low risk from testing/treatment Moderate: Drug management Medical Decision Making Level: 3 - Low [facility] 06-12-2023 History of Present illness Narrative This note was created using Songfor. Subjective Ashwini Baron is a 72 year old female. HPI patient states last Wednesday that she had went off her allergy medicine and then started with a skin rash. For the last 3 days she started noticing a itchy red rash underneath her breast and in the groin area. She has tried jtnt-txt-qhvpzkl creams that are not helping her much. Review of Systems Skin: Positive for rash. Objective BP 144/76 Pulse 91 Temp 36.3 C (97.3 F) Resp 21 Wt 81 kg (178 lb 9.6 oz) SpO2 99% BMI 31.64 kg/m Physical Exam Pulmonary: Effort: Pulmonary effort is normal. Skin: Findings: Rash (under b/l breast and groin area) present. Neurological: Mental Status: She is alert. ASSESSMENT/PLAN: 1. Skin yeast infection - ICD9: 112.3, ICD10: B37.2 Diflucan 1 dose Lotrisone cream BID x 7 days Follow up as needed. Anum Davis APRN.CNP Medical Decision Making: Problems: Low: Acute, uncomplicated illness or injury Risk: Low: Low risk from testing/treatment Moderate: Drug management Medical Decision Making Level: 3 - Low documented in this encounter [facility] 05-25-2023 Miscellaneous Notes Pharmacy faxed requesting the following refill. Requested Prescriptions Pending Prescriptions Disp Refills fluticasone (FLONASE) 50 mcg/actuation nasal spray [Pharmacy Med Name: fluticasone propionate 50 mcg/actuation nasal spray,suspension] 16 g 2 Sig: Use 2 Sprays in each nostril once daily. Patient last appointment: 05/10/2023 NOV 07/21/2023 Patient Phone numbers: [phone] (home) [phone] (work) Request is for script(s) to be escript to pharmacy. Mojgan Chen LPN documented in this encounter [facility] 05-21-2023 Miscellaneous Notes Noted and agree with both initial provider and RN encounter today Pt called and is notified of providers results and instructions. Pt states she was left a message and sent a MYChart message that her urine specimen was contaminated with E coli and she needed to come in an give another sample. I let her know that no the urine culture did not show any evidence of infection. I told her the one from 04/14 had e coli and maybe she was looking at or listening to that message. Pt was adamant that the message had been left for this urine culture. I told her I could not find anything anywhere to confirm this and gave her the only message I could find, which is this one. Tanya Melchor, RN Left message for patient with negative results and recommendations.Venice Rothman LPN Left message for patient to return call for results and recommendations.Venice Rothman LPN ----- Message from Marva Madera APRN.ECONOMIC DEVELOPER sent at 05/18/2023 2:25 PM EDT ----- Urine culture did not show any evidence of infection. Recommend follow up with PCP to ensure hematuria has resolved. Marva Madera CNP documented in this encounter [facility] 05-17-2023 Note HNO ID: [id number] Author: Marva Madera APRN.YULY Service: ? Author Type: Nurse Practitioner Type: Progress Notes Filed: 05/17/2023 11:48 AM Note Text: Subjective UTI Associated symptoms include frequency. Pertinent negatives include no chills, no nausea, no vomiting, no hematuria and no urgency. Ashwini Baron is a 72 year old female who presents with urinary frequency for the past 4 days. She states she has overactive bladder so it may just be that, however she had a bad UTI over memorial day so wanted to get her urine checked. She denies dysuria, urgency, or back pain or fever. She has not taken any medication for this at home. Review of Systems Constitutional: Negative for chills and fever. Gastrointestinal: Negative for abdominal pain, nausea and vomiting. Genitourinary: Positive for frequency. Negative for dysuria, hematuria and urgency. Musculoskeletal: Negative for back pain. BP 179/84 Pulse 89 Temp 36.6 ?C (97.9 ?F) Resp 18 Wt 81.9 kg (180 lb 9.6 oz) SpO2 99% BMI 31.99 kg/m? PAST MEDICAL HISTORY Diagnosis Date Asthma Carotid stenosis Delayed emergence from general anesthesia deep anesthesia 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) 05/22/2022 Diabetes mellitus, type 2 (HCC) Hyperlipidemia Hypertension Sliding hiatal hernia PAST SURGICAL HISTORY Procedure Laterality Date BREAST BIOPSY Bilateral benign BREAST SURGERY HX CHOLECYSTECTOMY COLONOSCOPY 05/2017 COLONOSCOPY SCREENING 2019 EGD 04/2017 EGD DIAGNOSTIC 01/2023 F SALPINGO-OOPHORECTOMY Left PAST SURGICAL HISTORY OF left TM repair TUBAL LIGATION ALLERGIES Metoclopramide, Sulfamethoxazole-Trimethoprim, Morphine, Acetaminophen, Augmentin [Amoxicillin-Pot Clavulanate], Cefzil [Cefprozil], Clavulanic Acid, Dayquil Allergy 12-Hr, Dextromethorphan, Doxylamine, Erythromycin, Iodinated Contrast Media, Ivp Dye [Iodine], Lincomycin, Pseudoephedrine, Reglan [Metoclopramide Hcl], Dchysux-Lbt-Akg Reductase Inhibitors, Tequin [Gatifloxacin], Doxycycline, Sulfamethoxazole, and Trimethoprim MEDICATIONS sucralfate (CARAFATE) 1 gram tabletTake 1 tablet by mouth three times daily. Take on empty stomach and avoid eating or drinking for 30 mins after taking.Disp: 90 tabletRfl: 11 hydroCHLOROthiazide 12.5 mg tabletTake by mouth.Disp: Rfl: lisinopril (ZESTRIL) 10 mg tabletTake 1 tablet by mouth every afternoon.Disp: Rfl: eioiismu-ehlunjuza-mxptowotuixueo (CORTISPORIN) 3.5-10,000-1 mg/mL-unit/mL-% otic suspensionUse 3 Drops in both ears four times daily.Disp: 10 mLRfl: 0 pioglitazone (ACTOS) 45 mg tabletTake 1 tablet by mouth once daily.Disp: 90 tabletRfl: 3 fluticasone (FLONASE ALLERGY RELIEF) 50 mcg/actuation nasal sprayUse 2 Sprays in each nostril once daily.Disp: 16 gRfl: 2 gel base no.41, bulk, (HYDROGEL) gel1 Dose once daily.Disp: 100 gRfl: 1 omeprazole (PRILOSEC) 40 mg capsuleTake 1 capsule by mouth twice daily.Disp: 180 capsuleRfl: 3 budesonide-formoterol (SYMBICORT) 160-4.5 mcg/actuation inhalerInhale 2 Puffs as instructed twice daily.Disp: 10.2 gRfl: 3 albuterol (PROVENTIL) 2.5 mg /3 mL (0.083 %) nebulizer solutionINHALE WITH 1 VIAL IN NEBULIZER EVERY SIX HOURS NEEDEDDisp: 30 mLRfl: 3 metoprolol tartrate, short acting, (LOPRESSOR) 25 mg tabletTake 1 tablet by mouth twice daily.Disp: 180 tabletRfl: 3 lancets (ONE TOUCH DELICA) 33 gauge1 Each once daily.Disp: 100 EachRfl: 3 blood sugar diagnostic (ONETOUCH ULTRA TEST) test strip1 Strip before meals and at bedtime. Use as instructedDisp: 100 EachRfl: 3 aspirin, enteric coated (ASPIRIN, ENTERIC COATED) 81 mg EC tabletTake 81 mg by mouth once daily.Disp: Rfl: blood sugar diagnostic (ONETOUCH ULTRA TEST) test stripMonitor blood sugar daily and as needed.Disp: 100 EachRfl: 3 lancets (TRUEPLUS LANCETS) 33 gaugeMonitor blood sugar daily and as needed.Disp: 100 EachRfl: 3 metFORMIN (GLUCOPHAGE) 500 mg tabletTake 2 tablets by mouth twice daily with meals.Disp: 360 tabletRfl: 3 ascorbic acid, vitamin C, (VITAMIN C) 500 mg tabletTake by mouth.Disp: Rfl: multivitamin tabletTake by mouth.Disp: Rfl: simvastatin (ZOCOR) 40 mg tabletTake 1 tablet by mouth daily at bedtime.Disp: 90 tabletRfl: 3 montelukast (SINGULAIR) 10 mg tabletTake 1 tablet by mouth daily at bedtime.Disp: 90 tabletRfl: 3 glimepiride (AMARYL) 4 mg tabletTake 1 tablet by mouth daily with breakfast.Disp: 90 tabletRfl: 3 traMADol (ULTRAM) 50 mg tabletTake 50 mg by mouth every 6 hours as needed for pain.Disp: Rfl: methylcellulose (CITRUCEL ORAL)Take by mouth.Disp: Rfl: diclofenac (VOLTAREN) 1 % topical gelApply to affected area four times daily.Disp: Rfl: mag carb/aluminum hydrox/algin (GAVISCON ORAL)Take by mouth.Disp: Rfl: B-complex with vitamin C (SUPER B COMPLEX-VITAMIN C ORAL)Take by mouth.Disp: Rfl: FA/mv,Ca,iron,min/lycopene/lut (MULTIVITAL ORAL)Take by mouth.Disp: Rfl: calcium carbonate/vitamin D3 (CALCIUM 500 (more content not included)... [facility] 05-17-2023 Instructions Marva Madera APRN.ECONOMIC DEVELOPER - 05/17/2023 11:48 AM EDT ASSESSMENT/PLAN: 1. Urinary frequency - ICD9: 788.41, ICD10: R35.0 - UA DIP, URINE (POC)- normal in office, will send for culture, no medication prescribed today. - URINE CULTURE Marva Madera APRN.ECONOMIC DEVELOPER documented in this encounter [facility] 05-17-2023 History of Present illness Narrative Subjective UTI Associated symptoms include frequency. Pertinent negatives include no chills, no nausea, no vomiting, no hematuria and no urgency. Ashwini Baron is a 72 year old female who presents with urinary frequency for the past 4 days. She states she has overactive bladder so it may just be that, however she had a bad UTI over memorial day so wanted to get her urine checked. She denies dysuria, urgency, or back pain or fever. She has not taken any medication for this at home. Review of Systems Constitutional: Negative for chills and fever. Gastrointestinal: Negative for abdominal pain, nausea and vomiting. Genitourinary: Positive for frequency. Negative for dysuria, hematuria and urgency. Musculoskeletal: Negative for back pain. BP 179/84 Pulse 89 Temp 36.6 C (97.9 F) Resp 18 Wt 81.9 kg (180 lb 9.6 oz) SpO2 99% BMI 31.99 kg/m PAST MEDICAL HISTORY Diagnosis Date Asthma Carotid stenosis Delayed emergence from general anesthesia deep anesthesia 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) 05/22/2022 Diabetes mellitus, type 2 (HCC) Hyperlipidemia Hypertension Sliding hiatal hernia PAST SURGICAL HISTORY Procedure Laterality Date BREAST BIOPSY Bilateral benign BREAST SURGERY HX CHOLECYSTECTOMY COLONOSCOPY 05/2017 COLONOSCOPY SCREENING 2019 EGD 04/2017 EGD DIAGNOSTIC 01/2023 F SALPINGO-OOPHORECTOMY Left PAST SURGICAL HISTORY OF left TM repair TUBAL LIGATION ALLERGIES Metoclopramide, Sulfamethoxazole-Trimethoprim, Morphine, Acetaminophen, Augmentin [Amoxicillin-Pot Clavulanate], Cefzil [Cefprozil], Clavulanic Acid, Dayquil Allergy 12-Hr, Dextromethorphan, Doxylamine, Erythromycin, Iodinated Contrast Media, Ivp Dye [Iodine], Lincomycin, Pseudoephedrine, Reglan [Metoclopramide Hcl], Qdpvoah-Jxy-Dqk Reductase Inhibitors, Tequin [Gatifloxacin], Doxycycline, Sulfamethoxazole, and Trimethoprim MEDICATIONS sucralfate (CARAFATE) 1 gram tablet^Take 1 tablet by mouth three times daily. Take on empty stomach and avoid eating or drinking for 30 mins after taking.^Disp: 90 tablet^Rfl: 11 hydroCHLOROthiazide 12.5 mg tablet^Take by mouth.^Disp: ^Rfl: lisinopril (ZESTRIL) 10 mg tablet^Take 1 tablet by mouth every afternoon.^Disp: ^Rfl: ntppjcmc-qokcyscyg-tffpfztgijzzaq (CORTISPORIN) 3.5-10,000-1 mg/mL-unit/mL-% otic suspension^Use 3 Drops in both ears four times daily.^Disp: 10 mL^Rfl: 0 pioglitazone (ACTOS) 45 mg tablet^Take 1 tablet by mouth once daily.^Disp: 90 tablet^Rfl: 3 fluticasone (FLONASE ALLERGY RELIEF) 50 mcg/actuation nasal spray^Use 2 Sprays in each nostril once daily.^Disp: 16 g^Rfl: 2 gel base no.41, bulk, (HYDROGEL) gel^1 Dose once daily.^Disp: 100 g^Rfl: 1 omeprazole (PRILOSEC) 40 mg capsule^Take 1 capsule by mouth twice daily.^Disp: 180 capsule^Rfl: 3 budesonide-formoterol (SYMBICORT) 160-4.5 mcg/actuation inhaler^Inhale 2 Puffs as instructed twice daily.^Disp: 10.2 g^Rfl: 3 albuterol (PROVENTIL) 2.5 mg /3 mL (0.083 %) nebulizer solution^INHALE WITH 1 VIAL IN NEBULIZER EVERY SIX HOURS NEEDED^Disp: 30 mL^Rfl: 3 metoprolol tartrate, short acting, (LOPRESSOR) 25 mg tablet^Take 1 tablet by mouth twice daily.^Disp: 180 tablet^Rfl: 3 lancets (ONE TOUCH DELICA) 33 gauge^1 Each once daily.^Disp: 100 Each^Rfl: 3 blood sugar diagnostic (ONETOUCH ULTRA TEST) test strip^1 Strip before meals and at bedtime. Use as instructed^Disp: 100 Each^Rfl: 3 aspirin, enteric coated (ASPIRIN, ENTERIC COATED) 81 mg EC tablet^Take 81 mg by mouth once daily.^Disp: ^Rfl: blood sugar diagnostic (ONETOUCH ULTRA TEST) test strip^Monitor blood sugar daily and as needed.^Disp: 100 Each^Rfl: 3 lancets (TRUEPLUS LANCETS) 33 gauge^Monitor blood sugar daily and as needed.^Disp: 100 Each^Rfl: 3 metFORMIN (GLUCOPHAGE) 500 mg tablet^Take 2 tablets by mouth twice daily with meals.^Disp: 360 tablet^Rfl: 3 ascorbic acid, vitamin C, (VITAMIN C) 500 mg tablet^Take by mouth.^Disp: ^Rfl: multivitamin tablet^Take by mouth.^Disp: ^Rfl: simvastatin (ZOCOR) 40 mg tablet^Take 1 tablet by mouth daily at bedtime.^Disp: 90 tablet^Rfl: 3 montelukast (SINGULAIR) 10 mg tablet^Take 1 tablet by mouth daily at bedtime.^Disp: 90 tablet^Rfl: 3 glimepiride (AMARYL) 4 mg tablet^Take 1 tablet by mouth daily with breakfast.^Disp: 90 tablet^Rfl: 3 traMADol (ULTRAM) 50 mg tablet^Take 50 mg by mouth every 6 hours as needed for pain.^Disp: ^Rfl: methylcellulose (CITRUCEL ORAL)^Take by mouth.^Disp: ^Rfl: diclofenac (VOLTAREN) 1 % topical gel^Apply to affected area four times daily.^Disp: ^Rfl: mag carb/aluminum hydrox/algin (GAVISCON ORAL)^Take by mouth.^Disp: ^Rfl: B-complex with vitamin C (SUPER B COMPLEX-VITAMIN C ORAL)^Take by mouth.^Disp: ^Rfl: FA/mv,Ca,iron,min/lycopene/lut (MULTIVITAL ORAL)^Take by mouth.^Disp: ^Rfl: calcium carbonate/vitamin D3 (CALCIUM 500 + D ORAL)^Take by mouth.^Disp: ^Rfl: cetirizine HCl (ZYRTEC ORAL)^Take by mouth.^Disp: ^Rfl: ubidecarenone (CO Q-10 ORAL)^Take by mouth.^Disp: ^Rfl: FAMILY HISTORY Problem Relation Age of Onset Colon Cancer Sister 67 Thyroid Cancer Brother Cancer Sister vaginal Social History Tobacco Use Smoking status: Never Smokeless tobacco: Never Vaping Use Vaping Use: Never used Substance Use Topics Alcohol use: Not Currently Drug use: Not Currently Objective Physical Exam Vitals and nursing note reviewed. Constitutional: General: She is not in acute distress. Appearance: Normal appearance. She is not ill-appearing. Cardiovascular: Rate and Rhythm: Normal rate and regular rhythm. Heart sounds: Normal heart sounds. Pulmonary: Effort: Pulmonary effort is normal. Breath sounds: Normal breath sounds. Abdominal: General: There is no distension. Palpations: Abdomen is soft. There is no mass. Tenderness: There is no abdominal tenderness. There is no right CVA tenderness, left CVA tenderness or guarding. Skin: General: Skin is warm and dry. Neurological: Mental Status: She is alert. ASSESSMENT/PLAN: 1. Urinary frequency - ICD9: 788.41, ICD10: R35.0 - UA DIP, URINE (POC)- normal in office, will send for culture, no medication prescribed today. - URINE CULTURE Marva Madera APRN.ECONOMIC DEVELOPER documented in this encounter [facility] 05-11-2023 Note HNO ID: [id number] Author: Mariama Bacon MD Service: ? Author Type: Physician Type: Progress Notes Filed: 05/11/2023 4:46 PM Note Text: This note was created using Yoogaiariter. Subjective Ashwini Baron is a 72 year old female.Patient is in office with complaint of recurrent sinus congestion. Patient was seen at Urgent Care for UTI and ear infection beginning of this month. Ear did not seem any better after antibiotics. Patient then went to [facility] stated she still had an ear infection, and was given an antibiotic. Ear infection did not get any better, so she went to ENT again and was given antibiotic and steroids. Patient states she finished antibiotics yesterday and steroid today. Patient has complaint of ongoing sinus congestion, dry nose, denies sore throat, and denies fever. Review of Systems Constitutional: Negative. HENT: Positive for sinus pressure and sinus pain. Eyes: Negative. Respiratory: Negative. Cardiovascular: Negative. Gastrointestinal: Negative. Endocrine: Negative. Genitourinary: Negative. Musculoskeletal: Negative. Skin: Negative. Allergic/Immunologic: Negative. Neurological: Negative. Hematological: Negative. Psychiatric/Behavioral: Negative. Objective BP 124/82 (BP Site: Left Arm, BP Position: Sitting, BP Cuff Size: Regular Adult) Pulse 86 Temp 36.7 ?C (98 ?F) (Temporal) Resp 18 Ht 160 cm (5' 3 ) Wt 80.7 kg (178 lb) SpO2 99% BMI 31.53 kg/m? Physical Exam Vitals reviewed. Constitutional: Appearance: Normal appearance. HENT: Head: Normocephalic and atraumatic. Nose: Nose normal. Eyes: Extraocular Movements: Extraocular movements intact. Pupils: Pupils are equal, round, and reactive to light. Cardiovascular: Rate and Rhythm: Normal rate and regular rhythm. Pulmonary: Effort: Pulmonary effort is normal. Breath sounds: Normal breath sounds. Abdominal: General: Bowel sounds are normal. Palpations: Abdomen is soft. Musculoskeletal: General: Normal range of motion. Cervical back: Normal range of motion and neck supple. Skin: General: Skin is warm and dry. Capillary Refill: Capillary refill takes less than 2 seconds. Neurological: General: No focal deficit present. Mental Status: She is alert and oriented to person, place, and time. Mental status is at baseline. Psychiatric: Mood and Affect: Mood normal. Behavior: Behavior normal. Assessment and Plan Encounter Diagnosis ICD-10-CM 1. History of paranasal sinus pain Z87.09 Discontinue Flonase. Nasal lubricant such as Vaseline or triple antibiotic ointment okay. Saline nasal spray. Monitor for improvement of symptoms. Consult to ENT if symptoms continue. Mariama Bacon MD [facility] 05-10-2023 Note HNO ID: [id number] Author: Wilson Shipley LPN Service: ? Author Type: LICENSED NURSE Type: Progress Notes Filed: 05/11/2023 4:46 PM Note Text: Patient is in office with complaint of recurrent sinus congestion. Patient was seen at Urgent Care for UTI and ear infection beginning of this month. Ear did not seem any better after antibiotics. Patient then went to [facility] stated she still had an ear infection, and was given an antibiotic. Ear infection did not get any better, so she went to ENT again and was given antibiotic and steroids. Patient states she finished antibiotics yesterday and steroid today. Patient has complaint of ongoing sinus congestion, dry nose, denies sore throat, and denies fever. No refills needed Wilson Shipley LPN May 10, 2023 4:04 PM [facility] 04-20-2023 Note HNO ID: [id number] Author: Harlan Marina APRN.ECONOMIC DEVELOPER Service: ? Author Type: Nurse Practitioner Type: Progress Notes Filed: 04/20/2023 9:44 AM Note Text: DEPARTMENT OF GASTROENTEROLOGY - FOLLOW UP REASON FOR VISIT Ashwini Baron is a 72 year old female who is scheduled for follow up of upper abdominal pain. HISTORY OF PRESENT ILLNESS Ashwini Baron is a 72 year old female who presents today for follow up of upper abdominal pain. Pertinent Workup to Date: 01/06/23 Dr. Arredondo- belching, bloating. Plan was KUB, EGD. BID PPI temporarily. Small, frequent low fat meals. Simethicone. Eat slowly, avoid straws. 01/14/23: - Multiple plaques in the middle third of the esophagus and in the lower third of the esophagus. Brushings performed. - Bilious gastric fluid. - Mod gastritis. Biopsied. - Normal examined duodenum. Biopsied. A. Duodenum, biopsy - Duodenal mucosa with no significant diagnostic alteration. - No evidence of celiac disease or duodenitis. B. Stomach, biopsy: - Oxyntic mucosa with no significant diagnostic alteration. - No morphologic evidence of Helicobacter pylori organisms. A - ESOPHAGEAL BRUSH: Negative for malignant cells. Fungal organisms morphologically consistent with Jennie species. Placed on 14 days Diflucan Colon due 2024 KUB 01/06/23: unremarkable On atbs for a UTI, macrobid 01/25/23 LFTs WNL Ultram, metformin, BID omep Symptoms: She was doing well on TID Carafate. Ran out a few weeks ago with returning. Not much pain. More belching, bloating. Not much nausea. Gas x helps a little. Diflucan not very helpful for this sx. No notable food triggers. No trouble with spicy foods, dairy. She has been taking Tramadol for years for fibromyalgia. Was tried on hydrocodone after recent knee surgery which worsened sx. No oral NSAIDs. Still on the 40mg BID omeprazole. PAST MEDICAL HISTORY Diagnosis Date Asthma Carotid stenosis Delayed emergence from general anesthesia deep anesthesia 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) 05/22/2022 Diabetes mellitus, type 2 (HCC) Hyperlipidemia Hypertension Sliding hiatal hernia PAST SURGICAL HISTORY Procedure Laterality Date BREAST BIOPSY Bilateral benign BREAST SURGERY HX CHOLECYSTECTOMY COLONOSCOPY 05/2017 COLONOSCOPY SCREENING 2019 EGD 04/2017 EGD DIAGNOSTIC 01/2023 F SALPINGO-OOPHORECTOMY Left PAST SURGICAL HISTORY OF left TM repair TUBAL LIGATION Allergies: Metoclopramide Other: See Comments Sulfamethoxazole-Tr* Other: See Comments Morphine Other: See Comments Augmentin [Amoxicil* Rash Cefzil [Cefprozil] Rash Clavulanic Acid Hives Dayquil Allergy 12-* Hives Dextromethorphan Hives Doxylamine Hives Erythromycin Rash Iodinated Contrast * Hives Ivp Dye [Iodine] Other: See Comments Comment:knot on head Lincomycin Rash Pseudoephedrine Hives Reglan [Metoclopram* Intolerance Ekdezab-Ajk-Xox Red* Unknown Comment:Other reaction(s): Other Tequin [Gatifloxaci* Rash Doxycycline Unknown, Vomiting Sulfamethoxazole Unknown Trimethoprim Unknown Current Outpatient Medications Medication Sig Dispense Refill hydroCHLOROthiazide 12.5 mg tablet Take by mouth. lisinopril (ZESTRIL) 10 mg tablet Take 1 tablet by mouth every afternoon. nitrofurantoin monohydrate and macrocrystal (MACROBID) 100 mg capsule Take 1 capsule by mouth twice daily with meals for 7 days. 14 capsule 0 pioglitazone (ACTOS) 45 mg tablet Take 1 tablet by mouth once daily. 90 tablet 3 fluticasone (FLONASE ALLERGY RELIEF) 50 mcg/actuation nasal spray Use 2 Sprays in each nostril once daily. 16 g 2 gel base no.41, bulk, (HYDROGEL) gel 1 Dose once daily. 100 g 1 omeprazole (PRILOSEC) 40 mg capsule Take 1 capsule by mouth twice daily. 180 capsule 3 budesonide-formoterol (SYMBICORT) 160-4.5 mcg/actuation inhaler Inhale 2 Puffs as instructed twice daily. 10.2 g 3 albuterol (PROVENTIL) 2.5 mg /3 mL (0.083 %) nebulizer solution INHALE WITH 1 VIAL IN NEBULIZER EVERY SIX HOURS NEEDED 30 mL 3 metoprolol tartrate, short acting, (LOPRESSOR) 25 mg tablet Take 1 tablet by mouth twice daily. 180 tablet 3 lancets (ONE TOUCH DELICA) 33 gauge 1 Each once daily. 100 Each 3 blood sugar diagnostic (ONETOUCH ULTRA TEST) test strip 1 Strip before meals and at bedtime. Use as instructed 100 Each 3 aspirin, enteric coated (ASPIRIN, ENTERIC COATED) 81 mg EC tablet Take 81 mg by mouth once daily. blood sugar diagnostic (ONETOUCH ULTRA TEST) test strip Monitor blood sugar daily and as needed. 100 Each 3 lancets (TRUEPLUS LANCETS) 33 gauge Monitor blood sugar daily and as needed. 100 Each 3 metFORMIN (GLUCOPHAGE) 500 mg tablet Take 2 tablets by mouth twice daily with meals. 360 tablet 3 ascorbic acid, vitamin C, (VITAMIN C) 500 mg tablet Take by mouth. multivitamin tablet Take by mouth. simvastatin (ZOCOR) 40 mg tablet Take 1 tablet by mouth daily at bedtime. 90 tablet 3 montelukast (SINGULAI (more content not included)... [facility] 04-20-2023 History of Present illness Narrative DEPARTMENT OF GASTROENTEROLOGY - FOLLOW UP REASON FOR VISIT Ashwini Baron is a 72 year old female who is scheduled for follow up of upper abdominal pain. HISTORY OF PRESENT ILLNESS Ashwini Baron is a 72 year old female who presents today for follow up of upper abdominal pain. Pertinent Workup to Date: LS 01/06/23 Dr. Arredondo- belching, bloating. Plan was KUB, EGD. BID PPI temporarily. Small, frequent low fat meals. Simethicone. Eat slowly, avoid straws. 01/14/23: - Multiple plaques in the middle third of the esophagus and in the lower third of the esophagus. Brushings performed. - Bilious gastric fluid. - Mod gastritis. Biopsied. - Normal examined duodenum. Biopsied. A. Duodenum, biopsy - Duodenal mucosa with no significant diagnostic alteration. - No evidence of celiac disease or duodenitis. B. Stomach, biopsy: - Oxyntic mucosa with no significant diagnostic alteration. - No morphologic evidence of Helicobacter pylori organisms. A - ESOPHAGEAL BRUSH: Negative for malignant cells. Fungal organisms morphologically consistent with Jennie species. Placed on 14 days Diflucan Colon due 2024 KUB 01/06/23: unremarkable On atbs for a UTI, macrobid 01/25/23 LFTs WNL Ultram, metformin, BID omep Symptoms: She was doing well on TID Carafate. Ran out a few weeks ago with returning. Not much pain. More belching, bloating. Not much nausea. Gas x helps a little. Diflucan not very helpful for this sx. No notable food triggers. No trouble with spicy foods, dairy. She has been taking Tramadol for years for fibromyalgia. Was tried on hydrocodone after recent knee surgery which worsened sx. No oral NSAIDs. Still on the 40mg BID omeprazole. PAST MEDICAL HISTORY Diagnosis Date Asthma Carotid stenosis Delayed emergence from general anesthesia deep anesthesia 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) 05/22/2022 Diabetes mellitus, type 2 (HCC) Hyperlipidemia Hypertension Sliding hiatal hernia PAST SURGICAL HISTORY Procedure Laterality Date BREAST BIOPSY Bilateral benign BREAST SURGERY HX CHOLECYSTECTOMY COLONOSCOPY 05/2017 COLONOSCOPY SCREENING 2019 EGD 04/2017 EGD DIAGNOSTIC 01/2023 F SALPINGO-OOPHORECTOMY Left PAST SURGICAL HISTORY OF left TM repair TUBAL LIGATION Allergies: Metoclopramide Other: See Comments Sulfamethoxazole-Tr* Other: See Comments Morphine Other: See Comments Augmentin [Amoxicil* Rash Cefzil [Cefprozil] Rash Clavulanic Acid Hives Dayquil Allergy 12-* Hives Dextromethorphan Hives Doxylamine Hives Erythromycin Rash Iodinated Contrast * Hives Ivp Dye [Iodine] Other: See Comments Comment:knot on head Lincomycin Rash Pseudoephedrine Hives Reglan [Metoclopram* Intolerance Ztwrmyc-Vjk-Wrj Red* Unknown Comment:Other reaction(s): Other Tequin [Gatifloxaci* Rash Doxycycline Unknown, Vomiting Sulfamethoxazole Unknown Trimethoprim Unknown Current Outpatient Medications Medication Sig Dispense Refill hydroCHLOROthiazide 12.5 mg tablet Take by mouth. lisinopril (ZESTRIL) 10 mg tablet Take 1 tablet by mouth every afternoon. nitrofurantoin monohydrate and macrocrystal (MACROBID) 100 mg capsule Take 1 capsule by mouth twice daily with meals for 7 days. 14 capsule 0 pioglitazone (ACTOS) 45 mg tablet Take 1 tablet by mouth once daily. 90 tablet 3 fluticasone (FLONASE ALLERGY RELIEF) 50 mcg/actuation nasal spray Use 2 Sprays in each nostril once daily. 16 g 2 gel base no.41, bulk, (HYDROGEL) gel 1 Dose once daily. 100 g 1 omeprazole (PRILOSEC) 40 mg capsule Take 1 capsule by mouth twice daily. 180 capsule 3 budesonide-formoterol (SYMBICORT) 160-4.5 mcg/actuation inhaler Inhale 2 Puffs as instructed twice daily. 10.2 g 3 albuterol (PROVENTIL) 2.5 mg /3 mL (0.083 %) nebulizer solution INHALE WITH 1 VIAL IN NEBULIZER EVERY SIX HOURS NEEDED 30 mL 3 metoprolol tartrate, short acting, (LOPRESSOR) 25 mg tablet Take 1 tablet by mouth twice daily. 180 tablet 3 lancets (ONE TOUCH DELICA) 33 gauge 1 Each once daily. 100 Each 3 blood sugar diagnostic (ONETOUCH ULTRA TEST) test strip 1 Strip before meals and at bedtime. Use as instructed 100 Each 3 aspirin, enteric coated (ASPIRIN, ENTERIC COATED) 81 mg EC tablet Take 81 mg by mouth once daily. blood sugar diagnostic (ONETOUCH ULTRA TEST) test strip Monitor blood sugar daily and as needed. 100 Each 3 lancets (TRUEPLUS LANCETS) 33 gauge Monitor blood sugar daily and as needed. 100 Each 3 metFORMIN (GLUCOPHAGE) 500 mg tablet Take 2 tablets by mouth twice daily with meals. 360 tablet 3 ascorbic acid, vitamin C, (VITAMIN C) 500 mg tablet Take by mouth. multivitamin tablet Take by mouth. simvastatin (ZOCOR) 40 mg tablet Take 1 tablet by mouth daily at bedtime. 90 tablet 3 montelukast (SINGULAIR) 10 mg tablet Take 1 tablet by mouth daily at bedtime. 90 tablet 3 glimepiride (AMARYL) 4 mg tablet Take 1 tablet by mouth daily with breakfast. 90 tablet 3 traMADol (ULTRAM) 50 mg tablet Take 50 mg by mouth every 6 hours as needed for pain. methylcellulose (CITRUCEL ORAL) Take by mouth. diclofenac (VOLTAREN) 1 % topical gel Apply to affected area four times daily. mag carb/aluminum hydrox/algin (GAVISCON ORAL) Take by mouth. B-complex with vitamin C (SUPER B COMPLEX-VITAMIN C ORAL) Take by mouth. FA/mv,Ca,iron,min/lycopene/lut (MULTIVITAL ORAL) Take by mouth. calcium carbonate/vitamin D3 (CALCIUM 500 + D ORAL) Take by mouth. cetirizine HCl (ZYRTEC ORAL) Take by mouth. ubidecarenone (CO Q-10 ORAL) Take by mouth. chxqwwsx-yeaflxvez-xiyrkscjzvocfu (CORTISPORIN) 3.5-10,000-1 mg/mL-unit/mL-% otic suspension Use 3 Drops in both ears four times daily. 10 mL 0 lisinopril (ZESTRIL) 5 mg tablet Take 1 tablet by mouth once daily. (Patient not taking: Reported on 04/14/2023) 90 tablet 3 empagliflozin (JARDIANCE) 10 mg tablet Take 1 tablet by mouth daily with breakfast. 90 tablet 3 No current facility-administered medications for this visit. Facility-Administered Medications Ordered in Other Visits Medication Dose Route Frequency Provider Last Rate Last Admin lactated ringers iv infusion 50 mL/hr INTRAVENOUS CONTINUOUS Huey Skinner MD Social History Tobacco Use Smoking status: Never Smokeless tobacco: Never Vaping Use Vaping Use: Never used Substance Use Topics Alcohol use: Not Currently Drug use: Not Currently FAMILY HISTORY Problem Relation Age of Onset Colon Cancer Sister 67 Thyroid Cancer Brother Cancer Sister vaginal REVIEW OF SYSTEMS Cardiovascular: No chest pain Respiratory: Negative for cough, wheezing and shortness of breath Gastrointestinal : See above Psychiatric: No problems PHYSICAL EXAMINATION BP 127/75 Pulse 89 Wt 80.7 kg (178 lb) BMI 31.53 kg/m General Appearance: Well appearing, alert, in no acute distress, gait steady. Eyes: Pupils equal, no scleral icterus Lungs: breath sounds clear to auscultation bilaterally Heart: regular rate and rhythm Abdomen: not distended, normal bowel sounds, soft and depressible, no guarding or rebound, no palpable mass, non TTP Neuro: alert, oriented x 3, pleasant and in no acute distress Psych: pleasant affect, calm Assessment IMPRESSION Ms. Baron is a 72 year old female who presents for follow up of chronic belching, UGI bloating. Recent EGD for this found bile gastritis and esophageal candidiasis. She did not respond much to Diflucan or BID omeprazole (no heartburn or dysphagia at this time) but did find Carafate helpful (taken TID.) Belching has worsened since she ran out about 2 weeks ago. She notes mild constipation (chronic Tramadol use for fibromyalgia.) Will resume Carafate 2-4 times daily, can try liquid or tablet form. Will add on Miralax to treat mild constipation which may be further limiting gastric emptying. Discussed need for low fat diet to reduce bile excess. PLAN -BID-TID Carafate tablets (can make into slurry if needed) -Start daily Miralax -Continue BID omeprazole for now. Once feeling better can try to reduce to once daily dosing -Low fat diet Harlan Marina APRN.CNP 04/20/2023 9:15 AM documented in this encounter [facility] 04-16-2023 Miscellaneous Notes Patient has a lot allergies, offered to change to cipro, after providing Black Box warning does not to take. Since she is not having a rash, sob, throat swelling, will continue macrobid. Savita Miller APRN.YULY Pt called in and reports she was in [facility] yesterday and was given Macrobid for a UTI. She states a few hours after taking the medication her mouth and nose were very dry, had stomach pains, dizzy, drowsy, elevated BP. Pt denies rash, swelling, struggling to breath, or SOB. She says she hasn't taken today's dose because she still doesn't feel right, and she is worried it will make her feel like that again. Pt was asked if she had taken Macrobid before, and she reports that she has and it didn't have this effect. She states she has a lot of allergies and she never knows how she will react to medication. Pt is asking if the provider will send a different medication to [facility] in [place] for her. Please call and advise. documented in this encounter [facility] 04-14-2023 Note HNO ID: [id number] Author: Chula Crooks APRN.ECONOMIC DEVELOPER Service: ? Author Type: Nurse Practitioner Type: Progress Notes Filed: 04/14/2023 12:39 PM Note Text: This note was created using Yoogaiariter. Subjective Ashwini Baron is a 72 year old female. 72 year old female with PMH HTN, hypercholesteremia, afib, asthma, DM (Actos) overactive bladder presents for illness. UTI Acute onset earlier in the week ( 3 days ago) Suprapubic pressure +urgency Endorses she utilized Miconazole Denies vaginal bleeding. Denies vaginal discharge Denies fever or chills Denies recent coitus. Ears Bilateral Feel stuffy Of note, patient Had knee surgery March 17 Dr. Nayak for pain management. The history is provided by the patient. No language tutor was used. UTI This is a new problem. The current episode started more than 2 days ago. The problem occurs every urination. The problem has not changed since onset.The pain is at a severity of 4/10. The pain is mild. There has been no fever. She is Not sexually active. Associated symptoms include chills, frequency, urgency and flank pain. Pertinent negatives include no sweats, no nausea, no vomiting, no discharge, no hematuria, no hesitancy and no possible . She has tried nothing for the symptoms. Her past medical history is significant for catheterization (knee surgery 03/17/23). Her past medical history does not include kidney stones, single kidney, urological procedure, recurrent UTIs or urinary stasis. PAST MEDICAL HISTORY Diagnosis Date - Asthma - Carotid stenosis - Delayed emergence from general anesthesia deep anesthesia - 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) 05/22/2022 - Diabetes mellitus, type 2 (HCC) - Hyperlipidemia - Hypertension - Sliding hiatal hernia PAST SURGICAL HISTORY Procedure Laterality Date - BREAST BIOPSY Bilateral benign - BREAST SURGERY HX - CHOLECYSTECTOMY - COLONOSCOPY 05/2017 - EGD 04/2017 - F SALPINGO-OOPHORECTOMY Left - PAST SURGICAL HISTORY OF left TM repair - TUBAL LIGATION ALLERGIES Metoclopramide, Sulfamethoxazole-Trimethoprim, Morphine, Augmentin [Amoxicillin-Pot Clavulanate], Cefzil [Cefprozil], Clavulanic Acid, Dayquil Allergy 12-Hr, Dextromethorphan, Doxylamine, Erythromycin, Iodinated Contrast Media, Ivp Dye [Iodine], Lincomycin, Pseudoephedrine, Reglan [Metoclopramide Hcl], Sxyxglb-Hcu-Lrv Reductase Inhibitors, Tequin [Gatifloxacin], Doxycycline, Sulfamethoxazole, and Trimethoprim MEDICATIONS - hydroCHLOROthiazide 12.5 mg tabletTake by mouth.Disp: Rfl: - lisinopril (ZESTRIL) 10 mg tabletTake 1 tablet by mouth every afternoon.Disp: Rfl: - pioglitazone (ACTOS) 45 mg tabletTake 1 tablet by mouth once daily.Disp: 90 tabletRfl: 3 - fluticasone (FLONASE ALLERGY RELIEF) 50 mcg/actuation nasal sprayUse 2 Sprays in each nostril once daily.Disp: 16 gRfl: 2 - gel base no.41, bulk, (HYDROGEL) gel1 Dose once daily.Disp: 100 gRfl: 1 - omeprazole (PRILOSEC) 40 mg capsuleTake 1 capsule by mouth twice daily.Disp: 180 capsuleRfl: 3 - budesonide-formoterol (SYMBICORT) 160-4.5 mcg/actuation inhalerInhale 2 Puffs as instructed twice daily.Disp: 10.2 gRfl: 3 - albuterol (PROVENTIL) 2.5 mg /3 mL (0.083 %) nebulizer solutionINHALE WITH 1 VIAL IN NEBULIZER EVERY SIX HOURS NEEDEDDisp: 30 mLRfl: 3 - metoprolol tartrate, short acting, (LOPRESSOR) 25 mg tabletTake 1 tablet by mouth twice daily.Disp: 180 tabletRfl: 3 - empagliflozin (JARDIANCE) 10 mg tabletTake 1 tablet by mouth daily with breakfast.Disp: 90 tabletRfl: 3 - lancets (ONE TOUCH DELFreezing Point) 33 gauge1 Each once daily.Disp: 100 EachRfl: 3 - blood sugar diagnostic (ONETOUCH ULTRA TEST) test strip1 Strip before meals and at bedtime. Use as instructedDisp: 100 EachRfl: 3 - sucralfate (CARAFATE) 100 mg/mL suspensionTake 10 mL by mouth three times daily before meals.Disp: 2700 mLRfl: 0 - aspirin, enteric coated (ASPIRIN, ENTERIC COATED) 81 mg EC tabletTake 81 mg by mouth once daily.Disp: Rfl: - blood sugar diagnostic (ONETOUCH ULTRA TEST) test stripMonitor blood sugar daily and as needed.Disp: 100 EachRfl: 3 - lancets (TRUEPLUS LANCETS) 33 gaugeMonitor blood sugar daily and as needed.Disp: 100 EachRfl: 3 - metFORMIN (GLUCOPHAGE) 500 mg tabletTake 2 tablets by mouth twice daily with meals.Disp: 360 tabletRfl: 3 - ascorbic acid, vitamin C, (VITAMIN C) 500 mg tabletTake by mouth.Disp: Rfl: - multivitamin tabletTake by mouth.Disp: Rfl: - simvastatin (ZOCOR) 40 mg tabletTake 1 tablet by mouth daily at bedtime.Disp: 90 tabletRfl: 3 - montelukast (SINGULAIR) 10 mg tabletTake 1 tablet by mouth daily at bedtime.Disp: 90 tabletRfl: 3 - glimepiride (AMARYL) 4 mg tabletTake 1 tablet by mouth daily with breakfast.Disp: 90 tabletRfl: 3 - traMADol (ULTRAM) 50 mg tabletTake 50 mg by mouth every 6 hours as needed for pain.Disp: Rfl: - methylcellulose (CITRUCEL ORAL)Take by mouth.Disp: Rfl: (more content not included)... [facility] 04-14-2023 History of Present illness Narrative This note was created using Yoogaiariter. Subjective Ashwini Baron is a 72 year old female. 72 year old female with PMH HTN, hypercholesteremia, afib, asthma, DM (Actos) overactive bladder presents for illness. UTI Acute onset earlier in the week ( 3 days ago) Suprapubic pressure +urgency Endorses she utilized Miconazole Denies vaginal bleeding. Denies vaginal discharge Denies fever or chills Denies recent coitus. Ears Bilateral Feel stuffy Of note, patient Had knee surgery March 17 Dr. Nayak for pain management. The history is provided by the patient. No language tutor was used. UTI This is a new problem. The current episode started more than 2 days ago. The problem occurs every urination. The problem has not changed since onset.The pain is at a severity of 4/10. The pain is mild. There has been no fever. She is Not sexually active. Associated symptoms include chills, frequency, urgency and flank pain. Pertinent negatives include no sweats, no nausea, no vomiting, no discharge, no hematuria, no hesitancy and no possible . She has tried nothing for the symptoms. Her past medical history is significant for catheterization (knee surgery 03/17/23). Her past medical history does not include kidney stones, single kidney, urological procedure, recurrent UTIs or urinary stasis. PAST MEDICAL HISTORY Diagnosis Date Asthma Carotid stenosis Delayed emergence from general anesthesia deep anesthesia 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) 05/22/2022 Diabetes mellitus, type 2 (HCC) Hyperlipidemia Hypertension Sliding hiatal hernia PAST SURGICAL HISTORY Procedure Laterality Date BREAST BIOPSY Bilateral benign BREAST SURGERY HX CHOLECYSTECTOMY COLONOSCOPY 05/2017 EGD 04/2017 F SALPINGO-OOPHORECTOMY Left PAST SURGICAL HISTORY OF left TM repair TUBAL LIGATION ALLERGIES Metoclopramide, Sulfamethoxazole-Trimethoprim, Morphine, Augmentin [Amoxicillin-Pot Clavulanate], Cefzil [Cefprozil], Clavulanic Acid, Dayquil Allergy 12-Hr, Dextromethorphan, Doxylamine, Erythromycin, Iodinated Contrast Media, Ivp Dye [Iodine], Lincomycin, Pseudoephedrine, Reglan [Metoclopramide Hcl], Octcixj-Zyb-Wtz Reductase Inhibitors, Tequin [Gatifloxacin], Doxycycline, Sulfamethoxazole, and Trimethoprim MEDICATIONS hydroCHLOROthiazide 12.5 mg tablet^Take by mouth.^Disp: ^Rfl: lisinopril (ZESTRIL) 10 mg tablet^Take 1 tablet by mouth every afternoon.^Disp: ^Rfl: pioglitazone (ACTOS) 45 mg tablet^Take 1 tablet by mouth once daily.^Disp: 90 tablet^Rfl: 3 fluticasone (FLONASE ALLERGY RELIEF) 50 mcg/actuation nasal spray^Use 2 Sprays in each nostril once daily.^Disp: 16 g^Rfl: 2 gel base no.41, bulk, (HYDROGEL) gel^1 Dose once daily.^Disp: 100 g^Rfl: 1 omeprazole (PRILOSEC) 40 mg capsule^Take 1 capsule by mouth twice daily.^Disp: 180 capsule^Rfl: 3 budesonide-formoterol (SYMBICORT) 160-4.5 mcg/actuation inhaler^Inhale 2 Puffs as instructed twice daily.^Disp: 10.2 g^Rfl: 3 albuterol (PROVENTIL) 2.5 mg /3 mL (0.083 %) nebulizer solution^INHALE WITH 1 VIAL IN NEBULIZER EVERY SIX HOURS NEEDED^Disp: 30 mL^Rfl: 3 metoprolol tartrate, short acting, (LOPRESSOR) 25 mg tablet^Take 1 tablet by mouth twice daily.^Disp: 180 tablet^Rfl: 3 empagliflozin (JARDIANCE) 10 mg tablet^Take 1 tablet by mouth daily with breakfast.^Disp: 90 tablet^Rfl: 3 lancets (ONE TOUCH DELICA) 33 gauge^1 Each once daily.^Disp: 100 Each^Rfl: 3 blood sugar diagnostic (ONETOUCH ULTRA TEST) test strip^1 Strip before meals and at bedtime. Use as instructed^Disp: 100 Each^Rfl: 3 sucralfate (CARAFATE) 100 mg/mL suspension^Take 10 mL by mouth three times daily before meals.^Disp: 2700 mL^Rfl: 0 aspirin, enteric coated (ASPIRIN, ENTERIC COATED) 81 mg EC tablet^Take 81 mg by mouth once daily.^Disp: ^Rfl: blood sugar diagnostic (ONETOUCH ULTRA TEST) test strip^Monitor blood sugar daily and as needed.^Disp: 100 Each^Rfl: 3 lancets (TRUEPLUS LANCETS) 33 gauge^Monitor blood sugar daily and as needed.^Disp: 100 Each^Rfl: 3 metFORMIN (GLUCOPHAGE) 500 mg tablet^Take 2 tablets by mouth twice daily with meals.^Disp: 360 tablet^Rfl: 3 ascorbic acid, vitamin C, (VITAMIN C) 500 mg tablet^Take by mouth.^Disp: ^Rfl: multivitamin tablet^Take by mouth.^Disp: ^Rfl: simvastatin (ZOCOR) 40 mg tablet^Take 1 tablet by mouth daily at bedtime.^Disp: 90 tablet^Rfl: 3 montelukast (SINGULAIR) 10 mg tablet^Take 1 tablet by mouth daily at bedtime.^Disp: 90 tablet^Rfl: 3 glimepiride (AMARYL) 4 mg tablet^Take 1 tablet by mouth daily with breakfast.^Disp: 90 tablet^Rfl: 3 traMADol (ULTRAM) 50 mg tablet^Take 50 mg by mouth every 6 hours as needed for pain.^Disp: ^Rfl: methylcellulose (CITRUCEL ORAL)^Take by mouth.^Disp: ^Rfl: diclofenac (VOLTAREN) 1 % topical gel^Apply to affected area four times daily.^Disp: ^Rfl: mag carb/aluminum hydrox/algin (GAVISCON ORAL)^Take by mouth.^Disp: ^Rfl: B-complex with vitamin C (SUPER B COMPLEX-VITAMIN C ORAL)^Take by mouth.^Disp: ^Rfl: FA/mv,Ca,iron,min/lycopene/lut (MULTIVITAL ORAL)^Take by mouth.^Disp: ^Rfl: calcium carbonate/vitamin D3 (CALCIUM 500 + D ORAL)^Take by mouth.^Disp: ^Rfl: cetirizine HCl (ZYRTEC ORAL)^Take by mouth.^Disp: ^Rfl: ubidecarenone (CO Q-10 ORAL)^Take by mouth.^Disp: ^Rfl: nitrofurantoin monohydrate and macrocrystal (MACROBID) 100 mg capsule^Take 1 capsule by mouth twice daily with meals for 7 days.^Disp: 14 capsule^Rfl: 0 pzxarkea-sjejuuurq-iqtxtfyzulmirf (CORTISPORIN) 3.5-10,000-1 mg/mL-unit/mL-% otic suspension^Use 3 Drops in both ears four times daily.^Disp: 10 mL^Rfl: 0 lisinopril (ZESTRIL) 5 mg tablet^Take 1 tablet by mouth once daily.^Disp: 90 tablet^Rfl: 3 (Patient not taking: Reported on 04/14/2023) FAMILY HISTORY Problem Relation Age of Onset Colon Cancer Sister 67 Thyroid Cancer Brother Cancer Sister vaginal Social History Tobacco Use Smoking status: Never Smokeless tobacco: Never Vaping Use Vaping Use: Never used Substance Use Topics Alcohol use: Not Currently Drug use: Not Currently Review of Systems Constitutional: Positive for chills and fatigue. Negative for fever. HENT: Positive for ear pain. Eyes: Negative for pain, discharge, redness and itching. Respiratory: Negative for apnea, cough, choking and chest tightness. Cardiovascular: Negative for chest pain, palpitations and leg swelling. Gastrointestinal: Negative for nausea and vomiting. Genitourinary: Positive for dysuria, flank pain, frequency and urgency. Negative for hematuria and hesitancy. Musculoskeletal: Positive for back pain. Negative for arthralgias. Skin: Negative for color change, pallor and wound. Allergic/Immunologic: Positive for food allergies and immunocompromised state. Neurological: Negative for dizziness, facial asymmetry, light-headedness and headaches. Hematological: Negative for adenopathy. Does not bruise/bleed easily. Psychiatric/Behavioral: Negative for agitation and behavioral problems. Objective BP 140/72 Pulse 95 Temp 36.7 C (98 F) Resp 21 Wt 81.9 kg (180 lb 9.6 oz) SpO2 98% BMI 31.99 kg/m Physical Exam Vitals and nursing note reviewed. Constitutional: General: She is not in acute distress. Appearance: Normal appearance. She is obese. She is not ill-appearing, toxic-appearing or diaphoretic. Comments: Appears uncomfortable, but non toxic HENT: Head: Normocephalic and atraumatic. Ears: Comments: B/L EAC swollen and erythematous TM intact and not bulging Nose: Nose normal. No congestion or rhinorrhea. Mouth/Throat: Mouth: Mucous membranes are moist. Pharynx: No oropharyngeal exudate or posterior oropharyngeal erythema. Eyes: General: Right eye: No discharge. Left eye: No discharge. Extraocular Movements: Extraocular movements intact. Conjunctiva/sclera: Conjunctivae normal. Pupils: Pupils are equal, round, and reactive to light. Cardiovascular: Rate and Rhythm: Normal rate and regular rhythm. Pulses: Normal pulses. Heart sounds: Normal heart sounds. No murmur heard. No friction rub. Pulmonary: Effort: Pulmonary effort is normal. No respiratory distress. Breath sounds: Normal breath sounds. No stridor. No wheezing, rhonchi or rales. Chest: Chest wall: No tenderness. Abdominal: General: Abdomen is flat. There is no distension. Palpations: Abdomen is soft. There is no mass. Tenderness: There is no abdominal tenderness. There is no right CVA tenderness, left CVA tenderness, guarding or rebound. Hernia: No hernia is present. Musculoskeletal: General: No swelling, tenderness, deformity or signs of injury. Normal range of motion. Cervical back: Normal range of motion and neck supple. No rigidity. Right lower leg: No edema. Left lower leg: No edema. Lymphadenopathy: Cervical: No cervical adenopathy. Skin: General: Skin is warm and dry. Coloration: Skin is not jaundiced or pale. Findings: No bruising, erythema, lesion or rash. Neurological: General: No focal deficit present. Mental Status: She is alert and oriented to person, place, and time. Cranial Nerves: No cranial nerve deficit. Sensory: No sensory deficit. Motor: No weakness. Coordination: Coordination normal. Gait: Gait normal. Psychiatric: Mood and Affect: Mood normal. Behavior: Behavior normal. Thought Content: Thought content normal. Judgment: Judgment normal. Assessment and Plan ASSESSMENT/PLAN: 1. UTI symptoms - ICD9: 788.99, ICD10: R39.9 (primary diagnosis) X 3 days Knee surgery 03/18/23 (cather) Urine dip +leuks +hematuria Will start on Macrobid. Urine culture sent. - UA DIP, URINE (POC) - URINE CULTURE 2. Otitis externa of both ears, unspecified chronicity, unspecified type - ICD9: 380.10, ICD10: H60.93 RX Polytrim [place] APRN.ECONOMIC DEVELOPER documented in this encounter [facility] 04-13-2023 Miscellaneous Notes She took the 9:00 AM that day. Thank you! That would be fine because she could pull together all the previous records and come up with a plan for the patient even if virtual. Monica Aburto RN Harlan would you be able to see this patient in person in a VV slot? Please advise Thank you Discussed over the phone pt is having upper abdominal bloating. She does not feel she is having any trouble with BM's, having BM daily with use of stool softeners. She is asking for urgent appt. Advised pt she may schedule with ECONOMIC DEVELOPER and would send this to scheduling. Please try and get pt in soon with whomever is available. Thank you. Monica Aburto RN Patient calling for an urgent appointment with Dr. Arredondo This past Wednesday experienced the onset of sudden air bubble that came up/won't go away She has tried to make herself vomit, but can't Feels bloated and concerned that the belching is going to start again like the last time. She is able to drink fluids ok, has to be very careful with what solid foods she eats She has been off of the Carafate for about 1 - 1 1/2 weeks now Please call back to (OK to leave message on voicemail) documented in this encounter [facility] 04-06-2023 Miscellaneous Notes Patient called requesting the following refill. Requested Prescriptions Pending Prescriptions Disp Refills pioglitazone (ACTOS) 45 mg tablet 90 tablet 3 Sig: Take 1 tablet by mouth once daily. Patient last appointment: 02/22/2023 Patient Phone numbers: [phone] (home) [phone] (work) Request is for script(s) to be escript to [facility] pharmacy. Ewa Mclain LPN documented in this encounter [facility] 04-01-2023 Miscellaneous Notes I left a message for patient Ashwini to return call to office. Ewa Mclain LPN April 01, 2023 2:47 PM Have patient check on the prices for Ozempic, Trulicity, bydurion, or Mounjaro Patient's Rody called to report they checked with insurance and Farxiga is going to cost $160 per month , so it is basically the same cost as Jardiance. Ewa Mclain LPN April 01, 2023 10:18 AM I spoke with patient Ashwini. I told her what Dr Bacon said in his note below. Ashwini wrote down the name Farxiga and said she will contact her insurance company to see if they cover that medication. She will call back once she gets an answer. Ewa Mclain LPN March 31, 2023 11:41 AM Not appropriate to restart Actos. Check with insurance to see if they cover Farxiga better. Ashwini Baron's Rody called today. : 1950 Allergies: Metoclopramide, Sulfamethoxazole-Trimethoprim, Morphine, Augmentin [Amoxicillin-Pot Clavulanate], Cefzil [Cefprozil], Clavulanic Acid, Dayquil Allergy 12-Hr, Dextromethorphan, Doxylamine, Erythromycin, Iodinated Contrast Media, Ivp Dye [Iodine], Lincomycin, Pseudoephedrine, Reglan [Metoclopramide Hcl], Lgewodc-Oye-Xwd Reductase Inhibitors, Tequin [Gatifloxacin], Doxycycline, Sulfamethoxazole, and Trimethoprim (home) [phone] (work) [phone] (cell) Reason for call: Rody called about Ashwini's diabetic medication. Patient had triple bypass surgery at [facility] earlier this year. During that time her Actos 45 mg daily was discontinued and she was put on Jardiance 10 mg daily instead. Now the Jardiance Rx has really jumped up in chahal and is $165.00 per month. Rody is asking if Dr Bacon will switch Ashwini back to the Actos? Patient last appointment: 02/22/2023 The patients preferred pharmacy has been captured for this encounter? [facility]. Ewa Mclain LPN documented in this encounter [facility] 02-23-2023 Miscellaneous Notes DENIED, The requested medication/product is excluded from Part D prescription coverage. Unable to notify patient, phone just rang. PENDING, Hydrogel gel [place]: [id number] INDU Cover My Meds documented in this encounter [facility] 02-22-2023 Miscellaneous Notes Signed and dated surgical clearance along with patient's last office note successfully faxed today to [facility] at fax number [phone]. Fax confirmation received and all documentation to be scanned into patient's chart. Laura Lyons LPN February 22, 2023 6:03 PM documented in this encounter [facility] 02-22-2023 Note HNO ID: [id number] Author: Mariama Bacon MD Service: ? Author Type: Physician Type: Progress Notes Filed: 02/22/2023 3:30 PM Note Text: This note was created using [employer]. Subjective Ashwini Baron is a 72 year old female. Ashwini presents today for preop clearance for upcoming left knee replacement. She has had no prior difficulties with anesthesia. She denies any cardiac, neurologic, or pulmonary symptoms. She has previously been cleared by cardiology. Review of Systems Constitutional: Negative. HENT: Negative. Eyes: Negative. Respiratory: Negative. Cardiovascular: Negative. Gastrointestinal: Negative. Endocrine: Negative. Genitourinary: Negative. Musculoskeletal: Negative. Skin: Negative. Allergic/Immunologic: Negative. Neurological: Negative. Hematological: Negative. Psychiatric/Behavioral: Negative. Objective BP 138/72 (BP Site: Right Arm, BP Position: Sitting, BP Cuff Size: Regular Adult) Pulse 86 Temp 36.2 ?C (97.1 ?F) (Temporal) Resp 18 Ht 160 cm (5' 3 ) Wt 85.2 kg (187 lb 12.8 oz) SpO2 98% BMI 33.27 kg/m? Physical Exam Vitals reviewed. Constitutional: Appearance: Normal appearance. HENT: Head: Normocephalic and atraumatic. Nose: Nose normal. Eyes: Extraocular Movements: Extraocular movements intact. Pupils: Pupils are equal, round, and reactive to light. Cardiovascular: Rate and Rhythm: Normal rate and regular rhythm. Pulmonary: Effort: Pulmonary effort is normal. Breath sounds: Normal breath sounds. Abdominal: General: Bowel sounds are normal. Palpations: Abdomen is soft. Musculoskeletal: General: Normal range of motion. Cervical back: Normal range of motion and neck supple. Skin: General: Skin is warm and dry. Capillary Refill: Capillary refill takes less than 2 seconds. Neurological: General: No focal deficit present. Mental Status: She is alert and oriented to person, place, and time. Mental status is at baseline. Psychiatric: Mood and Affect: Mood normal. Behavior: Behavior normal. Assessment and Plan Encounter Diagnosis ICD-10-CM 1. Preop examination Z01.818 Patient is medically maximized for procedure. She is cleared for surgery Mariama Bacon MD [facility] 02-22-2023 Note HNO ID: [id number] Author: Wilson Shipley LPN Service: ? Author Type: LICENSED NURSE Type: Progress Notes Filed: 02/22/2023 3:30 PM Note Text: Patient is in office for surgical clearance. Patient will be having a left knee arthroscopy with partial medial menisectomy under general anesthesia at [facility] [place]. Date is unknown at this time, for clearance had to be completed prior to scheduling. Wilson ShipleyPATRICA February 22, 2023 3:04 PM [facility] 02-10-2023 Note HNO ID: [id number] Author: Mariama Bacon MD Service: ? Author Type: Physician Type: Progress Notes Filed: 02/10/2023 10:55 AM Note Text: This note was created using Yoogai[employer]. Subjective Ashwini Baron is a 72 year old female. Ashwini presents today for pressure ulcer to her buttocks. She has been sitting and sleeping in a chair due to her recent heart surgery. Cannot sleep in bed because it is uncomfortable. Review of Systems Constitutional: Negative. HENT: Negative. Eyes: Negative. Respiratory: Negative. Cardiovascular: Negative. Gastrointestinal: Negative. Endocrine: Negative. Genitourinary: Negative. Musculoskeletal: Negative. Skin: Negative. Allergic/Immunologic: Negative. Neurological: Negative. Hematological: Negative. Psychiatric/Behavioral: Negative. Objective BP 142/78 (BP Site: Left Arm, BP Position: Sitting) Pulse 90 Temp 36.1 ?C (96.9 ?F) (Temporal) Resp 14 Ht 160 cm (5' 3 ) Wt 85 kg (187 lb 6.4 oz) SpO2 99% BMI 33.20 kg/m? Physical Exam Vitals reviewed. Constitutional: Appearance: Normal appearance. HENT: Head: Normocephalic and atraumatic. Nose: Nose normal. Eyes: Extraocular Movements: Extraocular movements intact. Pupils: Pupils are equal, round, and reactive to light. Cardiovascular: Rate and Rhythm: Normal rate and regular rhythm. Pulmonary: Effort: Pulmonary effort is normal. Breath sounds: Normal breath sounds. Abdominal: General: Bowel sounds are normal. Palpations: Abdomen is soft. Musculoskeletal: General: Normal range of motion. Cervical back: Normal range of motion and neck supple. Skin: General: Skin is warm and dry. Capillary Refill: Capillary refill takes less than 2 seconds. Comments: Patient with bilateral buttock superficial pressure wounds with small area of wound down to and including subcutaneous tissue on the right buttock. Neurological: General: No focal deficit present. Mental Status: She is alert and oriented to person, place, and time. Mental status is at baseline. Psychiatric: Mood and Affect: Mood normal. Behavior: Behavior normal. Assessment and Plan Encounter Diagnosis ICD-10-CM 1. Pressure injury of buttock, stage 3, unspecified laterality (HCC) L89.303 Treat wound with honey/hydrocolloid dressing. Change daily. Wound care instructions given. Follow-up in 2 weeks for recheck. Mariama Bacon MD [facility] 02-10-2023 Note HNO ID: [id number] Author: Ewa Mclain LPN Service: ? Author Type: LICENSED NURSE Type: Progress Notes Filed: 02/10/2023 10:55 AM Note Text: Patient is here today for a pressure ulcer she has on her buttock She had heart surgery and November 26 2022, after that she was not aloud to sleep in her bed she had to sleep in a recliner chair which she is still sleeping in. Now she has a pressure ulcer right in the middle on both sides of her buttocks, it is hurting her and making it difficult to sit due to the discomfort She has been doing physical therapy and since she started it her left ankle has been swelling Also after 2 physical therapy sessions her left knee became painful, she found out she has a torn meniscus and lots of arthritis and needs surgery Ewa Mclain LPN February 10, 2023 10:13 AM [facility] 02-10-2023 History of Present illness Narrative This note was created using Tuniiter. Subjective Ashwini Baron is a 72 year old female. Ashwini presents today for pressure ulcer to her buttocks. She has been sitting and sleeping in a chair due to her recent heart surgery. Cannot sleep in bed because it is uncomfortable. Review of Systems Constitutional: Negative. HENT: Negative. Eyes: Negative. Respiratory: Negative. Cardiovascular: Negative. Gastrointestinal: Negative. Endocrine: Negative. Genitourinary: Negative. Musculoskeletal: Negative. Skin: Negative. Allergic/Immunologic: Negative. Neurological: Negative. Hematological: Negative. Psychiatric/Behavioral: Negative. Objective BP 142/78 (BP Site: Left Arm, BP Position: Sitting) Pulse 90 Temp 36.1 C (96.9 F) (Temporal) Resp 14 Ht 160 cm (5' 3 ) Wt 85 kg (187 lb 6.4 oz) SpO2 99% BMI 33.20 kg/m Physical Exam Vitals reviewed. Constitutional: Appearance: Normal appearance. HENT: Head: Normocephalic and atraumatic. Nose: Nose normal. Eyes: Extraocular Movements: Extraocular movements intact. Pupils: Pupils are equal, round, and reactive to light. Cardiovascular: Rate and Rhythm: Normal rate and regular rhythm. Pulmonary: Effort: Pulmonary effort is normal. Breath sounds: Normal breath sounds. Abdominal: General: Bowel sounds are normal. Palpations: Abdomen is soft. Musculoskeletal: General: Normal range of motion. Cervical back: Normal range of motion and neck supple. Skin: General: Skin is warm and dry. Capillary Refill: Capillary refill takes less than 2 seconds. Comments: Patient with bilateral buttock superficial pressure wounds with small area of wound down to and including subcutaneous tissue on the right buttock. Neurological: General: No focal deficit present. Mental Status: She is alert and oriented to person, place, and time. Mental status is at baseline. Psychiatric: Mood and Affect: Mood normal. Behavior: Behavior normal. Assessment and Plan Encounter Diagnosis ICD-10-CM 1. Pressure injury of buttock, stage 3, unspecified laterality ([facility]) L89.303 Treat wound with honey/hydrocolloid dressing. Change daily. Wound care instructions given. Follow-up in 2 weeks for recheck. Mariama Bacon MD Patient is here today for a pressure ulcer she has on her buttock She had heart surgery and November 26 2022, after that she was not aloud to sleep in her bed she had to sleep in a recliner chair which she is still sleeping in. Now she has a pressure ulcer right in the middle on both sides of her buttocks, it is hurting her and making it difficult to sit due to the discomfort She has been doing physical therapy and since she started it her left ankle has been swelling Also after 2 physical therapy sessions her left knee became painful, she found out she has a torn meniscus and lots of arthritis and needs surgery Ewa Mclain LPN February 10, 2023 10:13 AM documented in this encounter [facility] 01-28-2023 Miscellaneous Notes No PA required, plans prefers brand name. PENDING, budesonide-formoterol (SYMBICORT) 160-4.5 mcg/actuation inhaler PA Submitted via [employer] documented in this encounter [facility] 01-27-2023 Note HNO ID: [id number] Author: Mariama Bacon MD Service: ? Author Type: Physician Type: Progress Notes Filed: 01/27/2023 10:17 AM Note Text: This note was created using Tuniiter. Subjective Ashwini Baron is a 72 year old female. Ashwini presents today for follow-up for multiple medical problems. See list. Her chronic medical problems been stable. She had recent treatment with GI for yeast infection to her esophagus. This is much improved. Sugars have been stable. Her A1c was slightly increased at 7.3. She is working to improve her diabetic diet. Review of Systems Constitutional: Negative. HENT: Negative. Eyes: Negative. Respiratory: Negative. Cardiovascular: Negative. Gastrointestinal: Negative. Endocrine: Negative. Genitourinary: Negative. Musculoskeletal: Negative. Skin: Negative. Allergic/Immunologic: Negative. Neurological: Negative. Hematological: Negative. Psychiatric/Behavioral: Negative. Objective BP 132/78 (BP Site: Left Arm, BP Position: Sitting, BP Cuff Size: Regular Adult) Pulse 74 Temp 36.2 ?C (97.1 ?F) (Temporal) Resp 18 Ht 160 cm (5' 3 ) Wt 82.9 kg (182 lb 12.8 oz) SpO2 97% BMI 32.38 kg/m? Physical Exam Vitals reviewed. Constitutional: Appearance: Normal appearance. HENT: Head: Normocephalic and atraumatic. Nose: Nose normal. Eyes: Extraocular Movements: Extraocular movements intact. Pupils: Pupils are equal, round, and reactive to light. Cardiovascular: Rate and Rhythm: Normal rate and regular rhythm. Pulmonary: Effort: Pulmonary effort is normal. Breath sounds: Normal breath sounds. Abdominal: General: Bowel sounds are normal. Palpations: Abdomen is soft. Musculoskeletal: General: Normal range of motion. Cervical back: Normal range of motion and neck supple. Skin: General: Skin is warm and dry. Capillary Refill: Capillary refill takes less than 2 seconds. Neurological: General: No focal deficit present. Mental Status: She is alert and oriented to person, place, and time. Mental status is at baseline. Psychiatric: Mood and Affect: Mood normal. Behavior: Behavior normal. Assessment and Plan Encounter Diagnosis ICD-10-CM 1. Type 2 diabetes mellitus without complication, without long-term current use of insulin (HCC) E11.9 lancets (ONE TOUCH DELICA) 33 gauge blood sugar diagnostic (ONETOUCH ULTRA TEST) test strip Stable 2. Aortic atherosclerosis ([facility]) I70.0 Stable 3. Paroxysmal atrial fibrillation ([facility]) I48.0 Stable 4. Essential (primary) hypertension I10 5. Hypercholesterolemia E78.00 Continue present medications. Follow-up with orthopedics for knee pain. Esophageal infection improved with Diflucan. Follow-up in 6 months for wellness visit. Mariama Bacon MD [facility] 01-27-2023 Note HNO ID: [id number] Author: Wilson Shipley LPN Service: ? Author Type: LICENSED NURSE Type: Progress Notes Filed: 01/27/2023 10:17 AM Note Text: Patient is in office today for 6 month exam. Patient is experiencing discomfort in left knee. Unable to bear weight. Wilson Shipley LPN January 27, 2023 9:44 AM [facility] 01-18-2023 Miscellaneous Notes Left detailed VM for pt regarding the results of EGD with orders placed for Diflucan. Asked for return call if any additional questions. Also, pt has viewed this result on [employer]. Monica Aburto RN ----- Message from Erika Arredondo DO sent at 01/18/2023 3:49 PM EDT ----- Please review path from EGD with pt which reveals normal small bowel, normal gastric, and +brushings for esophageal jennie. Will treat with diflucan x 14 days. Repeat EGD PRN Thanks cl documented in this encounter [facility] 01-18-2023 Miscellaneous Notes Patient is coming in office on 01-27-2023 for 6 month follow up. Patient states she always has lab work drawn before visit. Patient requesting orders Wilson Shipley LPN January 18, 2023 10:29 AM documented in this encounter [facility] 01-14-2023 History and physical note HISTORY AND PHYSICAL Ashwini Baron, 72 year old female Current history and physical on file: No Is a new History and Physical required for today's visit? Yes Indication for procedure: Other belching PROCEDURE(S) SCHEDULED FOR: EGD (Esophagogastroduodenoscopy) with or without biopsies, removal of polyps or lesions, dilation ( any means), treatment of bleeding ( any means), Barrx treatment of Vamsi's Esophagus, image tube placement or cryo therapy treatment based on clinical findings. BASELINE BEHAVIOR: Calm BASELINE ORIENTATION: A & O x3 All medications and allergies reviewed: Yes Skin Assessment: Warm dry mucus membranes pink Airway/Respiratory Assessment: Airway: visualization of the uvula- Yes Mouth: opening greater than 2 fingerbreadths- Yes Neck: full range of motion- Yes Breath sounds clear/equal- Yes Cardiac Assessment: Regular rate and rhythm without murmur Abdominal Assessment: Abdomen soft, non-tender, no masses or organomegaly. Sedation Plan: MAC Additional Comments: None Erika Arredondo DO documented in this encounter [facility] 01-06-2023 Note HNO ID: [id number] Author: RT Jackelyn(R) Service: Radiology Author Type: Wet Milling Wheel Operator Type: Progress Notes Filed: 01/06/2023 12:04 PM Note Text: Radiology Service Progress Note PATIENT NAME: Ashwini Baron DATE OF SERVICE: January 06, 2023 TIME: 12:03 PM PATIENT IDENTITY VERIFICATION COMPLETED USING TWO (2) IDENTIFIERS: Name and Date of confirmed by patient verbally and Name and Date of confirmed by identification band. FALL SCREENING: Has the patient had 2 falls in the last year or 1 fall with injury or currently using an Ambulatory Assistive Device (Walker, Cane, Wheelchair, Crutches, etc.)? No PATIENT GENDER DATA: Female. status: : No status: NO. PATIENT RELEVANT IMPLANT DATA REVIEWED: Not Applicable RADIOLOGY DEPARTMENT: General X-ray: Exam(s) Completed: Abdomen X-Ray: Abdomen PERIPHERAL IV DATA: Not applicable SIGNED BY: RT Jackelyn(R) January 06, 2023 12:03 PM [facility] 01-06-2023 Note HNO ID: [id number] Author: Erika Arredondo, DO Service: ? Author Type: Physician Type: Progress Notes Filed: 01/06/2023 2:02 PM Note Text: Chief Compliant: Consultation requested by Dr. Mariama Bacon MD for an opinion regarding belching. My final recommendations will be communicated back to the requesting physician by way of shared Medical record or letter to requesting physician via US mail. HPI: Ashwini Baron is a 72 year old female with PMH significant for asthma, CAD s/p recent CABG in 12/06, DM, HTN, HLD, GERD on chronic PPI, small hiatal hernia, gastritis, hx of drug induced pancreatitis, OA who presents for belching. Pt reports symptoms mostly started after her CABG. Describes as constant belching. Lasted for up to 8 hours at times. Usually occurs after eating but no particular foods. Symptoms were better when she was on liquid diet. Has mild constipation currently but mostly controlled with metamucil. +bloating. Denies any significant nausea, vomiting, regurgitation, GERD on chronic PPI-20 mg BID, sob, cp, palpitations, abd pain, diarrhea, signs of bleeding, anorexia, wt loss. Has tried simethicone with no significant relief. Last EGD/colonoscopy in 2019-reviewed. No fam hx of GI malignancy. Reviewed most recent labs and imaging. 12/30/22 consult to GI placed per Dr. Bacon for c/o belching OV notes per Dr. Bacon as follows: Patient is in office with complaint constipation, gas, belching, and bloating. She has only been drinking Ensure She has not had any solid food since December 22 If she eats anything solid she gets sick and has belching, bloating, flatulence, constipation with little round hard balls of feces She took 2 Dulcolax this morning and she finally had a BM today and it was very hard stool 12/22/22 Negative chest and abdominal series. 12/22/22 ER visit notes as follows: Patient states she has been belching for 5 hours straight or more. Started about an hour after she ate dinner, she states she ate very little but it included a banana. She states she tried simethicone and then [place] and she cannot stop. She feels a little bloated. She has no other symptoms. She had a CABG 4.5 weeks ago at [facility]. She states she has been recovering well. She denies any chest pain shortness of breath. She states the last couple days her asthma has been flared up a little bit, she called her heart doctor and they called her in some Lasix to take in case she had been developing some fluid buildup that was causing her breathing difficulty. She states she is not short of breath now. She states she has had issues with belching in the past but never not been able to stop like this. She has been having normal bowel movements and urinating normally 04/29/20 Upper GI endoscopy and colonoscopy were done for Upper abdominal pain, Dysphagia, Gastro-esophageal reflux disease and Family history of colon cancer in a first-degree relative, Change in bowel habits, per Cody Edgar MD Normal esophagus. Gastritis. Biopsied. Normal examined duodenum The colon (entire examined portion) appeared normal. Biopsies for histology were taken with a cold forceps from the entire colon for evaluation of microscopic colitis. Path as follows: Antral mucosa with reactive gastropathy. - No morphologic evidence of Helicobacter pylori. Random colon, biopsy Colonic mucosa with no diagnostic alteration. - No morphologic evidence of microscopic colitis. Last labs as follows: Component 12/01/22 11/30/22 11/29/22 11/28/22 11/27/22 11/26/22 Auto WBC 10.2 10.1 9.2 9.1 8.1 11.2 High RBC 3.65 Low 3.46 Low 3.29 Low 3.12 Low 3.36 Low 3.27 Low Hemoglobin 10.6 Low 9.7 Low 9.5 Low 9.0 Low 9.7 Low 9.1 Low Hematocrit 31.2 Low 29.8 Low 28.5 Low 26.8 Low 28.8 Low 28.0 Low MCV 85.4 86.1 86.5 86.0 85.6 85.8 MCH 29.1 28.0 28.8 28.9 29.0 27.8 MCHC 34.0 32.5 33.3 33.6 33.9 32.4 RDW 15.0 High 14.9 High 14.6 High 15.0 High 15.0 High 14.7 High Platelets 375 295 226 188 201 203 MPV 7.3 Low 7.4 7.2 Low 7.8 7.7 7.0 Low Component 12/01/22 11/30/22 11/30/22 11/29/22 11/28/22 11/27/22 SODIUM 136 134 Low 133 Low 132 Low 132 Low 137 POTASSIUM 3.6 3.8 3.5 3.2 Low 3.4 Low 3.5 CHLORIDE 97 Low 96 Low 98 98 102 106 CARBON DIOXIDE 28 31 High 28 24 23 22 UREA NITROGEN 23 High 24 High 21 High 21 High 18 High 11 CREATININE 1.17 High 1.27 High 1.10 High 0.94 0.99 0.71 GLUCOSE 136 High 179 High 149 High 189 High 160 High 125 High CALCIUM 9.1 8.8 8.3 Low 8.1 Low 8.3 Low 8.2 Low ANION GAP 11 7 7 9 7 9 eGFR 50.3 Low 45.6 Low 54.2 Low 65.4 61.5 >90.0 ALLERGIES Allergen Reactions Metoclopramide Other: See Comments Sulfamethoxazole-Tr* Other: See Comments Morphine Other: See Comments Augmentin [Amoxicil* Rash Cefzil [Cefprozil] Rash Clavulanic Acid Hives Dayquil Allergy 12-* Hives Dextromethorphan Hives Doxylamine Hives Erythromycin Rash Ibuprofen Other: See Comments Iodinated Cont (more content not included)... [facility] 01-06-2023 History of Present illness Narrative Radiology Service Progress Note PATIENT NAME: Ashwini Baron DATE OF SERVICE: January 06, 2023 TIME: 12:03 PM PATIENT IDENTITY VERIFICATION COMPLETED USING TWO (2) IDENTIFIERS: Name and Date of confirmed by patient verbally and Name and Date of confirmed by identification band. FALL SCREENING: Has the patient had 2 falls in the last year or 1 fall with injury or currently using an Ambulatory Assistive Device (Walker, Cane, Wheelchair, Crutches, etc.)? No PATIENT GENDER DATA: Female. status: : No status: NO. PATIENT RELEVANT IMPLANT DATA REVIEWED: Not Applicable RADIOLOGY DEPARTMENT: General X-ray: Exam(s) Completed: Abdomen X-Ray: Abdomen PERIPHERAL IV DATA: Not applicable SIGNED BY: RT Jackelyn(R) January 06, 2023 12:03 PM documented in this encounter [facility] 12-31-2022 Note HNO ID: [id number] Author: Mariama Bacon MD Service: ? Author Type: Physician Type: Progress Notes Filed: 12/31/2022 3:00 PM Note Text: This note was created using Yoogaiariter. Subjective Ashwini Baron is a 72 year old female.Patient is in office with complaint constipation, gas, belching, and bloating. She has only been drinking Ensure She has not had any solid food since December 22 If she eats anything solid she gets sick and has belching, bloating, flatulence, constipation with little round hard balls of feces She took 2 Dulcolax this morning and she finally had a BM today and it was very hard stool Review of Systems Constitutional: Negative. HENT: Negative. Eyes: Negative. Respiratory: Negative. Cardiovascular: Negative. Gastrointestinal: Negative. Endocrine: Negative. Genitourinary: Negative. Musculoskeletal: Negative. Skin: Negative. Allergic/Immunologic: Negative. Neurological: Negative. Hematological: Negative. Psychiatric/Behavioral: Negative. Objective BP 138/72 (BP Site: Right Arm, BP Position: Sitting) Pulse 88 Temp 36.5 ?C (97.7 ?F) (Temporal) Resp 14 Ht 160 cm (5' 3 ) Wt 86.1 kg (189 lb 12.8 oz) SpO2 99% BMI 33.62 kg/m? Physical Exam Vitals reviewed. Constitutional: Appearance: Normal appearance. HENT: Head: Normocephalic and atraumatic. Nose: Nose normal. Eyes: Extraocular Movements: Extraocular movements intact. Pupils: Pupils are equal, round, and reactive to light. Cardiovascular: Rate and Rhythm: Normal rate and regular rhythm. Pulmonary: Effort: Pulmonary effort is normal. Breath sounds: Normal breath sounds. Abdominal: General: Bowel sounds are normal. There is distension. Palpations: Abdomen is soft. Tenderness: There is abdominal tenderness. Musculoskeletal: General: Normal range of motion. Cervical back: Normal range of motion and neck supple. Skin: General: Skin is warm and dry. Capillary Refill: Capillary refill takes less than 2 seconds. Neurological: General: No focal deficit present. Mental Status: She is alert and oriented to person, place, and time. Mental status is at baseline. Psychiatric: Mood and Affect: Mood normal. Behavior: Behavior normal. Assessment and Plan Encounter Diagnosis ICD-10-CM 1. Belching R14.2 CONSULT TO GASTROENTEROLOGY Mariama Bacon MD [facility] 12-30-2022 Note HNO ID: [id number] Author: Ewa Mclain LPN Service: ? Author Type: LICENSED NURSE Type: Progress Notes Filed: 12/31/2022 3:00 PM Note Text: Patient is in office with complaint constipation, gas, belching, and bloating. She has only been drinking Ensure She has not had any solid food since December 22 If she eats anything solid she gets sick and has belching, bloating, flatulence, constipation with little round hard balls of feces She took 2 Dulcolax this morning and she finally had a BM today and it was very hard stool The home care nurse called yesterday to report that Ashwini has been having all these symptoms plus itchy skin with hives, her renal function has declined and she has pain and swelling in her left knee, she has been using cold packs and Voltaren gel on it Ewa Mclain LPN December 30, 2022 3:02 PM [facility] 12-25-2022 Telephone encounter Note Returned patient's call. Patient reportedly has been belching since this AM. This has been intermittent for the last few days. She had visited an ED but was not offered any treatment. Patient states that she drank some diet coke this AM and feels that it may have started at that point. Suggested to patient to avoid carbonated beverages and give it some time for the gas to dissipate. Also asked patient to continue to take her simethicone and prilosec. Will DC reglan because it has made patient jittery, also DC amio and diflucan, in case these meds are possibly causing GI distress. Patient's reported high BP was taken prior to her taking any of her BP medications. She has since taken both her BB and ACEi. Patient has appointment scheduled with her PCP. Suggested that patient may need a GI specialist to assess if the problem continues. PATRICIA Ramirez CNP 12/25/22 [facility] 12-25-2022 Miscellaneous Notes Returned patient's call. Patient reportedly has been belching since this AM. This has been intermittent for the last few days. She had visited an ED but was not offered any treatment. Patient states that she drank some diet coke this AM and feels that it may have started at that point. Suggested to patient to avoid carbonated beverages and give it some time for the gas to dissipate. Also asked patient to continue to take her simethicone and prilosec. Will DC reglan because it has made patient jittery, also DC amio and diflucan, in case these meds are possibly causing GI distress. Patient's reported high BP was taken prior to her taking any of her BP medications. She has since taken both her BB and ACEi. Patient has appointment scheduled with her PCP. Suggested that patient may need a GI specialist to assess if the problem continues. PATRICIA Ramirez CNP 12/25/22 documented in this encounter [facility] 12-25-2022 Miscellaneous Notes Patient phoned office crying to this nurse that her stomach pain is so bad that she doesn't know what to due, she went to the ER and is unable to get into Dr. Bacon until next Wednesday. Patient stated that [facility] did nothing for her. This nurse stated that unfortunately Dr. Bacon is out of the office, and due to her pain she needs to go to the ER. This nurse also informed patient that if she was not happy with the care she received there, that there are other hospitals she can go to. Patient thanked nurse Wilson Shilpey LPN December 25, 2022 10:41 AM documented in this encounter [facility] 12-10-2022 History of Present illness Narrative Images from the original note were not included. [facility] Group: [facility] [address] [facility] [address] Dept: [phone] Dept Loc: [phone] Visit type: Established patient Reason for Visit: Post-op and Follow-up Assessment and Plan 1. S/P CABG x 3 2. 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 -Antifungal powder prescribed for under breasts. -Refill of zofran, though nausea has improved. -Doing well with Home Health PT, discussed Cardiac Rehab in [place] when Home PT signs off. -Reviewed home BP and weight logs. BP slightly elevated in office but will not change medications at this time. Has been stable at home. -Asked to continue to monitor BP and weight. -Patient to reach out to Dr. Rubio for Cardiology follow up within next month. -DC lasix and K supplement. Educated on signs of fluid overload. POD# 14 Day from Discharge (12/01/22) # 09 -Reviewed current meds: DC lasix and K. No refill on oxycodone, patient to return to Pain Management regimen. -Surgical Incisions: healing appropriately, well approximated, no s/s of infection. -Physical therapy as outlined in discharge instructions.Not ready for Cardiac Rehab and Not ready to drive. -Acute Post-Operative Pain controlled. Patient taking narcotic opioid medication. Tx plan: Continue to use narcotic/opioid analgesic medication, Over The Counter-Tylenol (acetaminophen) 500 mg 1-2 tablets every 6 hours. No more than 4,000 mg in 24 hour period, Over The Counter-Motrin (ibuprofen) 200-400 mg by mouth every 4-6 hours (or) 600-800mg every 8 hours. No more than 3,200 mg per day, Over The Counter-pain patches (Salon pas) may used as needed next to incision but not directly on your incision, and Ice packs applied for 20 minutes, then off for at least 20 minutes before reapplying. Weight restriction measures 1-4 weeks from date of surgery- 10lbs weight restriction: 5-8 weeks from date of surgery- 20lbs weight restriction: 9-12 weeks from date of surgery-30lbs weight restriction approximate end date: Disposition: Follow up with [facility] in 2 weeks. Patient to schedule Cardiology appointment with Dr. Rubio within next month. Patient verbalized understanding of plan and stated they would call if any questions or concerns arise. Treatment Team: PCP: MARIAMA BACON Subjective HPI: Ashwini Baron is a 72 y.o. female referred by Dr. Rubio for severe multi vessel disease. She has a PMHx that includes HTN, HLD, asthma, and hiatal hernia. Per note, pt presented to ED for chest discomfort work up lead to a heart catheterization on 11/10/22 which showed severe triple-vessel disease. Echocardiogram showed EF of 70%. She was seen by Dr. Sethi in the OP setting. Underwent CABG x3 (SMITH-LAD, SVG-OM, SVG-RPDA), L[facility]. Her postoperative course included afib, reverted to NSR with Amio, will d/c on PO taper. Will also d/c on Lasix 40mg PO x5 days with K supp. 12/10/22: Patient presents to office today for post-op follow up. Overall doing well. Activity increasing and working with Home Health PT. Incisions healing nicely. Pain has been well controlled. She took her last oxycodone today. Discussed pain regimen and patient prefers to return to her previous Pain Management regimen. Ok to do so, she has an appointment with them in about a month but has tramadol at home. Reviewed BP and weight logs. Discussed going to Cardiac Rehab once Home Health PT signs off. Patient will schedule Cardiology appointment with Dr. Rubio in [place]. Patient recovery going well, only complaint is that she is not able to sleep flat in bed yet. Encouraged that this will come with time. Review of Systems Constitutional: Positive for fatigue. Negative for chills, diaphoresis and fever. Respiratory: Negative for cough, shortness of breath and wheezing. Cardiovascular: Negative for chest pain, palpitations and leg swelling. Gastrointestinal: Positive for nausea. Negative for abdominal distention, abdominal pain, constipation, diarrhea and vomiting. Neurological: Negative for dizziness, syncope and light-headedness. Allergies Allergen Reactions Cefprozil Hives and Rash Erythromycin Rash Gatifloxacin Hives and Rash Lincomycin Hives and Rash Metoclopramide Other Other reaction(s): Intolerance, Intolerance, Other: See Comments Morphine Other reaction(s): Other: See Comments, Other: See Comments, tachycardia Amoxicillin Other reaction(s): Hives Bactrim [Sulfamethoxazole-Trimethoprim] Clavulanic Acid Hives Dayquil Severe + Vapocool [[id number]] Hives Dextromethorphan Hives Doxylamine Hives Iodinated Contrast Media Hives Pseudoephedrine Hives Statins Other reaction(s): Other Doxycycline Unknown and Vomiting Only Other reaction(s): Unknown, Vomiting Sulfamethoxazole Unknown Other reaction(s): Unknown Trimethoprim Unknown Other reaction(s): Unknown Outpatient Medications Prior to Visit Medication Sig Dispense Refill acetaminophen (Tylenol) 500 MG tablet Take 2 tablets (1,000 mg) by mouth in the morning and 2 tablets (1,000 mg) at noon and 2 tablets (1,000 mg) before bedtime. Do all this for 10 days. 60 tablet 0 albuterol 0.63 MG/3ML nebulizer solution Take 1 ampule by nebulization every 6 hours as needed. Alum Hydroxide-Mag Trisilicate 80-14.2 MG chewable tablet Chew 1 tablet daily. amiodarone (Pacerone) 200 MG tablet Take 2 tablets (400 mg) by mouth 2 times daily for 5 days, THEN 2 tablets (400 mg) daily for 7 days, THEN 1 tablet (200 mg) daily. 64 tablet 0 ascorbic acid (Vitamin C) 500 MG tablet Take 500 mg by mouth daily. aspirin 81 MG EC tablet Take 1 tablet (81 mg) by mouth daily. Do not start before December 02, 2022. 30 tablet 2 budesonide-formoterol (Symbicort) 160-4.5 MCG/ACT inhaler Inhale 2 puffs in the morning and 2 puffs in the evening. calcium 500 MG tablet Take 500 mg by mouth daily. cetirizine (ZyrTEC) 10 MG tablet Take 10 mg by mouth daily. coenzyme Q-10 75 MG capsule Take 1 capsule by mouth daily. empagliflozin (Jardiance) 10 MG Take 1 tablet (10 mg) by mouth daily. 30 tablet 1 glimepiride (Amaryl) 4 MG tablet Take 4 mg by mouth every morning (before breakfast). lisinopril 5 MG tablet Take 1 tablet (5 mg) by mouth daily. Do not start before December 02, 2022. 30 tablet 1 Melatonin 5 MG capsule Take 1 capsule by mouth Nightly as needed. metFORMIN (Glucophage) 500 MG tablet Take 2 tablets by mouth in the morning and 2 tablets in the evening. Take with meals. metoprolol tartrate (Lopressor) 25 MG tablet Take 1 tablet (25 mg) by mouth 2 times daily. 60 tablet 1 montelukast (Singulair) 10 MG tablet Take 1 tablet by mouth Nightly. Multiple Vitamin (MULTI-VITAMIN DAILY PO) Take 1 tablet by mouth daily. omega-3 (Fish Oil) 1000 MG capsule Take 1,000 mg by mouth daily. omeprazole (PriLOSEC) [address] capsule Take 20 mg by mouth in the morning and 20 mg in the evening. simvastatin (Zocor) 40 MG tablet Take 1 tablet by mouth Nightly. furosemide (Lasix) 40 MG tablet Take 1 tablet (40 mg) by mouth daily for 5 days. Do not start before December 02, 2022. 5 tablet 0 ondansetron (Zofran) 4 MG tablet Take 2 tablets (8 mg) by mouth every 8 hours as needed for nausea or vomiting for up to 7 days. 20 tablet 0 potassium chloride CR (Klor-Con M20) 20 MEQ ER tablet Take 1 tablet (20 mEq) by mouth daily. Do not crush or chew. 5 tablet 0 No facility-administered medications prior to visit. Past Medical History: Diagnosis Date Arthritis Asthma Carotid stenosis Coronary artery disease Diabetes mellitus (HCC) Hiatal hernia Hyperlipidemia Hypertension Objective Patient reported: No flowsheet data found. Vitals: 12/10/22 0944 BP: (!) 151/79 Pulse: 78 Temp: 36.8 C (98.2 F) Wt Readings from Last 3 Encounters: 12/10/22 201 lb (91.2 kg) 12/01/22 204 lb (92.5 kg) 11/20/22 195 lb 12.8 oz (88.8 kg) Physical Exam Vitals reviewed. Constitutional: General: She is not in acute distress. Appearance: She is not ill-appearing or diaphoretic. Cardiovascular: Rate and Rhythm: Normal rate and regular rhythm. Pulses: Normal pulses. Heart sounds: No murmur heard. Pulmonary: Effort: Pulmonary effort is normal. Breath sounds: No wheezing, rhonchi or rales. Abdominal: General: There is no distension. Palpations: Abdomen is soft. Tenderness: There is no abdominal tenderness. Musculoskeletal: Right lower leg: No edema. Left lower leg: Edema present. Skin: General: Skin is warm and dry. Capillary Refill: Capillary refill takes less than 2 seconds. Neurological: General: No focal deficit present. Mental Status: She is alert and oriented to person, place, and time. Data Reviewed and Summarized Labs/Imaging/Testing: reviewed EMR, see A&P for pertinent diagnostic results related to office visit PATRICIA Ramirez CNP documented in this encounter [facility] 12-07-2022 Miscellaneous Notes LAST OFFICE VISIT: 09/24/2022 NEXT SCHEDULED OFFICE: 01/27/2023 Pharmacy and frequency verified with patient's today. Requested Prescriptions Pending Prescriptions Disp Refills blood sugar diagnostic (ONETOUCH ULTRA TEST) test strip 100 Each 3 Sig: Monitor blood sugar daily and as needed. lancets (TRUEPLUS LANCETS) 33 gauge 100 Each 3 Sig: Monitor blood sugar daily and as needed. Laura Lyons LPN December 07, 2022 10:20 AM documented in this encounter [facility] 12-01-2022 Note Education completed yesterday with DM educator [facility] 12-01-2022 Note Discharge Summary: C ardiothoracic Surgery Ashwini Baron, 72 y.o., 1950 ADMIT DATE: 11/26/2022 DISCHARGE DATE: 12/01/2022 DISCHARGING SURGEON: Adrianne Sethi MD, Office Number: [phone] PRIMARY CARE PHYSICIAN: MARIAMA BACON TREATMENT TEAM: Olive Picker: VISIT STATUS: Admission CODE STATUS: Full Code SURGERY: 11/26/2022 [place]: CABG x 3 SMITH-LAD, SVG-OM, SVG-RPDA, L [facility] HOSPITAL COURSE: Ashwini Baron is a 72 y.o. female referred by Dr. Rubio for severe multi vessel disease. She has a PMHx that includes HTN, HLD, asthma, and hiatal hernia. Per note, pt presented to ED for chest discomfort work up lead to a heart catheterization on 11/10/22 which showed severe triple-vessel disease. Echocardiogram showed EF of 70%. She was seen by Dr. Sethi in the OP setting. Underwent CABG x3 (SMITH-LAD, SVG-OM, SVG-RPDA), [facility]. Her postoperative course included afib, reverted to NSR with Amio, will d/c on PO taper. Will also d/c on Lasix 40mg PO x5 days with K supp. DIAGNOSTICS: BP (!) 152/62 (BP Location: Left arm, Patient Position: Sitting) Pulse 82 Temp 37.1 ?C (98.8 ?F) (Temporal) Resp 16 Ht 5' 3 (1.6 m) Wt 204 lb (92.5 kg) SpO2 93% PF 96 L/min BMI 36.14 kg/m? Recent Labs 11/29/22 0003 11/30/22 0000 11/30/22 2122 12/01/22 0005 CREATININE 0.94 1.10* 1.27* 1.17* HGB 9.5* 9.7* -- 10.6* PLT 226 295 -- 375 WBC 9.2 10.1 -- 10.2 NA 132* 133* 134* 136 K 3.2* 3.5 3.8 3.6 DISCHARGE DIAGNOSES: Severe MVCAD s/p CABGx3 HTN HLD DM Asthma Carotid stenosis Hiatal hernia Post operative Pulm Management: Normal Post-operative Course Post-operative Atrial Fibrillation: [x]Yes [] No Acute blood loss anemia DISCHARGE MEDICATIONS: Medication List START taking these medications acetaminophen 500 MG tablet Commonly known as: Tylenol Take 2 tablets (1,000 mg) by mouth in the morning and 2 tablets (1,000 mg) at noon and 2 tablets (1,000 mg) before bedtime. Do all this for 10 days. amiodarone 200 MG tablet Commonly known as: Pacerone Take 2 tablets (400 mg) by mouth 2 times daily for 5 days, THEN 2 tablets (400 mg) daily for 7 days, THEN 1 tablet (200 mg) daily. Start taking on: December 01, 2022 aspirin 81 MG EC tablet Take 1 tablet (81 mg) by mouth daily. Do not start before December 02, 2022. Start taking on: December 02, 2022 empagliflozin 10 MG Commonly known as: Jardiance Take 1 tablet (10 mg) by mouth daily. furosemide 40 MG tablet Commonly known as: Lasix Take 1 tablet (40 mg) by mouth daily for 5 days. Do not start before December 02, 2022. Start taking on: December 02, 2022 lisinopril 5 MG tablet Take 1 tablet (5 mg) by mouth daily. Do not start before December 02, 2022. Start taking on: December 02, 2022 metoprolol tartrate 25 MG tablet Commonly known as: Lopressor Take 1 tablet (25 mg) by mouth 2 times daily. oxyCODONE 5 MG immediate release tablet Commonly known as: Roxicodone Take 1 tablet (5 mg) by mouth every 6 hours as needed for severe pain (7-10) for up to 7 days. potassium chloride CR 20 MEQ ER tablet Commonly known as: Klor-Con M20 Take 1 tablet (20 mEq) by mouth daily. Do not crush or chew. CONTINUE taking these medications albuterol 0.63 MG/3ML nebulizer solution Alum Hydroxide-Mag Trisilicate 80-14.2 MG chewable tablet ascorbic acid 500 MG tablet Commonly known as: Vitamin C budesonide-formoterol 160-4.5 MCG/ACT inhaler Commonly known as: Symbicort calcium 500 MG tablet cetirizine 10 MG tablet Commonly known as: ZyrTEC coenzyme Q-10 75 MG capsule glimepiride 4 MG tablet Commonly known as: Amaryl Melatonin 5 MG capsule metFORMIN 500 MG tablet Commonly known as: Glucophage montelukast 10 MG tablet Commonly known as: Singulair MULTI-VITAMIN DAILY PO omega-3 1000 MG capsule Commonly known as: Fish Oil omeprazole [address] capsule Commonly known as: PriLOSEC simvastatin 40 MG tablet Commonly known as: Zocor STOP taking these medications amLODIPine 5 MG tablet Commonly known as: Norvasc chlorhexidine 0.12 % solution Commonly known as: Peridex GAVISCON PO lisinopril-hydroCHLOROthiazide 20-12.5 MG tablet metoprolol succinate XL 50 MG 24 hr tablet Commonly known as: Toprol-XL mupirocin 2 % ointment Commonly known as: Bactroban pioglitazone 30 MG tablet Commonly known as: Actos traMADol 50 MG tablet Commonly known as: Ultram Where to Get Your Medications These medications were sent to [facility] [address] [place] [address] Hours: Wednesday to Wednesday 10 am to 6 pm amiodarone 200 MG tablet aspirin 81 MG EC tablet empagliflozin 10 MG furosemide 40 MG tablet lisinopril 5 MG tablet metoprolol tartrate 25 MG tablet oxyCODONE 5 MG immediate release tablet potassium chloride CR 20 MEQ ER tablet You can get these medications from any pharmacy You don't need a prescription for these medications acetaminophen 500 MG tablet D (more content not included)... [facility] 12-01-2022 Note Cardiothoracic Surge ry/CCM Progress Note PATIENT NAME: Ashwini Baron DATE: 12/01/22 HPI: Ashwini Baron is a 72 y.o. female referred by Dr. Rubio for severe multi vessel disease. She has a PMHx that includes HTN, HLD, asthma, and hiatal hernia. Per note, pt presented to ED for chest discomfort work up lead to a heart catheterization on 11/10/22 which showed severe triple-vessel disease. Echocardiogram showed EF of 70%. She was seen by Dr. Sethi in the OP setting. Plan was made for CABG. Surgery/Procedure: 11/26/2022 Jossie: CABG x 3 SMITH-LAD, SVG-OM, SVG-RPDA, L EVH Interval History: 12/01/22, POD# 5: VSS overnight, NSR on tele. On RA overnight. She had difficulty sleeping overnight, Remeron gave her restless legs. She is hoping to discharge home today. +BM Review of Systems Constitutional: Positive for fatigue. Negative for diaphoresis and fever. Respiratory: Negative for cough, shortness of breath and wheezing. Cardiovascular: Negative for chest pain, palpitations and leg swelling. Gastrointestinal: Negative for abdominal distention, abdominal pain, constipation, diarrhea, nausea and vomiting. Skin: Negative for color change, pallor and rash. Psychiatric/Behavioral: Positive for sleep disturbance. Objective: Vitals: BP: (!) 157/67, MAP (mmHg): 94, BP Method: Automatic Heart Rate: 79 Resp: 18 Temp: 37.2 ?C (98.9 ?F), Temp Source: Temporal BMI (Calculated): 36.15 CXR: BMP: Recent Labs 11/29/22 0003 11/30/22 0000 11/30/222 12/01/22 0005 NA 132* 133* 134* 136 K 3.2* 3.5 3.8 3.6 CL 98 98 96* 97* CO2 24 28 31* 28 BUN 21* 21* 24* 23* CREATININE 0.94 1.10* 1.27* 1.17* CALCIUM 8.1* 8.3* 8.8 9.1 MG 1.3* 1.7 1.5* -- CBC: Recent Labs 11/29/22 0003 11/30/22 0000 12/01/22 0005 WBC 9.2 10.1 10.2 HGB 9.5* 9.7* 10.6* HCT 28.5* 29.8* 31.2* PLT 226 295 375 MCV 86.5 86.1 85.4 RDW 14.6* 14.9* 15.0* INR: No results for input(s): INR in the last 72 hours. Physical Exam Cardiovascular: Rate and Rhythm: Normal rate and regular rhythm. Heart sounds: Normal heart sounds. No murmur heard. No friction rub. Pulmonary: Effort: Pulmonary effort is normal. Breath sounds: No decreased breath sounds, wheezing or rhonchi. Skin: General: Skin is warm and dry. Capillary Refill: Capillary refill takes less than 2 seconds. Findings: Bruising and ecchymosis present. Comments: Surgical Incisions: well approximate; clean dry with no drainage noted. Surrounding skin no redness, warmth, or signs of infection noted. Neurological: Mental Status: She is alert. Psychiatric: Behavior: Behavior is cooperative. Assessment: Severe MVCAD s/p CABGx3 HTN HLD DM Asthma Carotid stenosis Hiatal hernia Post operative Pulm Management: Normal Post-operative Course Post-operative Atrial Fibrillation: [x]Yes [] No Acute blood loss anemia Plan: Patient Status: Telemetry ASA/Statin Metoprolol 25mg BID Amio 400mg BID Lasix 40mg PO daily Lisinopril 5mg daily - will titrate up outpt as BP allows PT/OT, progressive mobility PT recs: Home with assist PRN, Home with Home health PT Pulmonary hygiene: IS and Acapella GI prophy: PO protonix DVT prophy:TEDs, SCDs, and Heparin SubQ Disposition: d/c home today Central Line: []Yes [x] No Arterial Line: []Yes [x] No Fraga: []Yes [x] No Restraints: []Yes [x] No Patient discussed and plan of day developed from multidisciplinary rounds between Cardiothoracic Surgery (Cardiothoracic Surgeon, DALY) and Critical Care Attending Cardiac Core Medications: ASA, Statin, and BB EF: 11/26/22- 55% Blood Conservation: None noted in post-operative period Olive Picker: [facility] 11-30-2022 Note Received referral an d reviewed chart. Phase II Cardiac Rehab Referral discussed with Ashwini Baron. Cardiac Rehab education provided and reviewed handout. Patient interested but prefers [facility] due to location. Given [facility] information. Patient will contact [facility] to schedule cardiac rehab when appropriate. [facility] 11-30-2022 Note Cardiothoracic Surge ry/CCM Progress Note PATIENT NAME: Ashwini Baron DATE: 11/30/22 HPI: Ashwini Baron is a 72 y.o. female referred by Dr. Rubio for severe multi vessel disease. She has a PMHx that includes HTN, HLD, asthma, and hiatal hernia. Per note, pt presented to ED for chest discomfort work up lead to a heart catheterization on 11/10/22 which showed severe triple-vessel disease. Echocardiogram showed EF of 70%. She was seen by Dr. Sethi in the OP setting. Plan was made for CABG. Surgery/Procedure: 11/26/2022 Jossie: CABG x 3 SMITH-LAD, SVG-OM, SVG-RPDA, L EVH Interval History: 11/30/22, POD# 4: Hypertensive overnight, other VSS, afebrile. NSR on tele, no recurrence of Afib. On RA. Needs BM. Review of Systems Constitutional: Positive for fatigue. Negative for diaphoresis and fever. Respiratory: Negative for cough, shortness of breath and wheezing. Cardiovascular: Negative for chest pain, palpitations and leg swelling. Gastrointestinal: Positive for constipation. Negative for abdominal distention, abdominal pain, diarrhea, nausea and vomiting. Skin: Negative for color change, pallor and rash. Psychiatric/Behavioral: Positive for sleep disturbance. Objective: Vitals: BP: (!) 163/76, MAP (mmHg): 98, BP Method: Automatic Heart Rate: 78 Resp: 20 Temp: 36.4 ?C (97.5 ?F), Temp Source: Temporal BMI (Calculated): 36.59 CXR: BMP: Recent Labs 11/28/22 0011 11/29/22 0003 11/30/22 0000 NA 132* 132* 133* K 3.4* 3.2* 3.5 CL 102 98 98 CO2 23 24 28 BUN 18* 21* 21* CREATININE 0.99 0.94 1.10* CALCIUM 8.3* 8.1* 8.3* MG 1.6 1.3* 1.7 CBC: Recent Labs 11/28/22 0011 11/29/22 0003 11/30/22 0000 WBC 9.1 9.2 10.1 HGB 9.0* 9.5* 9.7* HCT 26.8* 28.5* 29.8* PLT 188 226 295 MCV 86.0 86.5 86.1 RDW 15.0* 14.6* 14.9* INR: Recent Labs 11/28/22 0011 INR 1.0 Physical Exam Cardiovascular: Rate and Rhythm: Normal rate and regular rhythm. Heart sounds: Normal heart sounds. No murmur heard. No friction rub. Pulmonary: Effort: Pulmonary effort is normal. Breath sounds: No decreased breath sounds, wheezing or rhonchi. Skin: General: Skin is warm and dry. Capillary Refill: Capillary refill takes less than 2 seconds. Findings: Bruising and ecchymosis present. Comments: Surgical Incisions: well approximate; clean dry with no drainage noted. Surrounding skin no redness, warmth, or signs of infection noted. Neurological: Mental Status: She is alert. Psychiatric: Behavior: Behavior is cooperative. Assessment: Severe MVCAD s/p CABGx3 HTN HLD DM Asthma Carotid stenosis Hiatal hernia Post operative Pulm Management: Normal Post-operative Course Post-operative Atrial Fibrillation: [x]Yes [] No Acute blood loss anemia Plan: Patient Status: Telemetry ASA/Statin Up titrate BB- Metoprolol 25mg BID Amio 400mg BID Decrease Lasix 40mg IVP to once daily Lactulose today D/C IJ PT/OT, progressive mobility PT recs: Home with assist PRN, Home with Home health PT Pulmonary hygiene: IS and Acapella GI prophy: PO protonix DVT prophy:TEDs, SCDs, and Heparin SubQ Disposition: home likely 1-2 days Central Line: [x]Yes [] No Arterial Line: []Yes [x] No Fraga: []Yes [x] No Restraints: []Yes [x] No Patient discussed and plan of day developed from multidisciplinary rounds between Cardiothoracic Surgery (Cardiothoracic Surgeon, DALY) and Critical Care Attending Cardiac Core Medications: ASA, Statin, and BB EF: 11/26/22- 55% Blood Conservation: None noted in post-operative period Olive Picker: [facility] 11-29-2022 Note Start PACC Note Home Health Referral Educated patient and spouse on Home Care and services available. Patient offered choice of available HHC and agreeable to SN/PT services with [facility]. Care Types: [facility] Program Isolation Precautions: No active isolations Social Determinates of Health: Tobacco Use: Low Risk Smoking Tobacco Use: Never Smokeless Tobacco Use: Never Passive Exposure: Not on file Social History Substance and Sexual Activity Alcohol Use Never Social History Substance and Sexual Activity Drug Use Never Does the patient have any financial resource strain? No Does the patient have any food insecurities? No Does the patient have any housing instabilities? No If any of the above is noted as yes - consider a THIRD OFFICER evaluation once the patient returns home. START PATIENT REGISTRATION INFORMATION Order Information Order Signing Physician: Adrianne Sethi MD Service Ordered RN ?: Yes Service Ordered PT ?: Yes Service Ordered OT ?: No Service Ordered ST ?: No Service Ordered THIRD OFFICER?:No Service Ordered DECK SPECIALIST?: No Following Physician: Adrianne Sethi MD Following Physician Overseeing Physician: (Required for Residents only) Agreeable to Follow? Yes Date/Time of Call 11/29/22 2:02 PM, Spoke with: OFFICE CLOSED Care Coordination SOC Call from [facility] Required?: No Same Day SOC?: No Primary Care Physician: MARIAMA BACON Primary Care Physician Primary Care Physician Address: [address] [place] [phone] Visit Instructions: N/A Service Discharge Location Type: Home with Home Health Care Service Facility Name: N/A Service Floor Facility: N/A Service Room No: N/A Demographics Patient Last Name: Loraine Patient First Name: Ashwini Language/Communication Barrier:NO Service Address: [address] [place] [address] Service City: [facility] ST: [place] Service ZIP: [address] Service (home) Other phone numbers: Telephone Information: Emergency Contact: Extended Emergency Contact Information Primary Emergency Contact: Rody Baron Relation: Spouse Admission Information Admit Date: 11/26/2022 Patient status at discharge: Inpatient Admitting Diagnosis Atherosclerotic heart disease of [place]ka coronary artery without angina pectoris [I25.10] CAD in [place]ka artery [I25.10] Caregiver Information Caregiver First Name: RODY Caregiver Last Name: LORAINE Caregiver Relationship to Patient SPOUSE Caregiver Caregiver Notes: N/A [employer] List No END PATIENT REGISTRATION INFORMATION Pt Home Health goal TO REMAIN AT HOME COVID Status 1. Do you have any upper respiratory symptoms (cough, SOB, Fever)? No 2. Have you been exposed to anyone with COVID-19 Virus? No Answer only if pending or positive for COVID-19? 1. Agreeable to wear PPE at each visit? No 2. Is the hospital supplying them with PPE upon Discharge? No Start PACC Summary General Report/ Additional Comments Ashwini Baron is a 72 y.o. female referred by Dr. Rubio for severe multi vessel disease. She has a PMHx that includes HTN, HLD, asthma, and hiatal hernia. Per note, pt presented to ED for chest discomfort work up lead to a heart catheterization on 11/10/22 which showed severe triple-vessel disease. Echocardiogram showed EF of 70%. She was seen by Dr. Sethi in the OP setting. Plan was made for CABG. Discharge Date: 12/01/2022 Referral Source-PACC: (Hospital/Unit): [facility] / T1-102/T1-102 A End PACC Note [facility] 11-29-2022 Note [facility] Respiratory Care Department Progress Note As part of the Respiratory Assessment Program (RAP), the following Respiratory Therapist evaluation has been completed, including a chart review and clinical/physical assessment. Respiratory Therapist RAP Evaluation Guideline Points 0 1 2 3 4 Points Strongly Consider History Factor No Pulmonary conditions Stable Pulmonary condition(s) Surgery or Intervention that may impact Pulmonary system (at risk) Surgery or Intervention that is impacting Pulmonary system Active Exacerbation of Pulmonary Condition 1 Respiratory Pattern Regular, RR= 12-18 DAY or Increased RR= 19-24 Irregular, or RR= 25-30 SOB, talk in short sentences, or RR= 31-35 Severe SOB, accessory muscle use, one word answers, or RR>35 0 Aerosol Med(s), High Flow O2 Breath Sounds Clear Diminished in 1 lobe Diminished in ? 2 lobes Adventitious breath sounds Coarse crackles, Wheezes, or Diminished in >2 lobes 2 Aerosol Med(s), Bronchial Hygiene, Hyperinflation Cough & Sputum Strong cough, no secretion retention or production Weak cough, no secretion retention or production Weak cough, w/ production (less often than Q2hr), or secretion retention No cough, w/ secretion retention or production (less often than Q2hr) Significant secretion production (more often than Q2hr) or mucus plug 0 Aerosol Med(s), Bronchial Hygiene, Hyperinflation Level of Activity Ambulatory Ambulatory with Assist Up in chair or edge of bed (dangle) Non-ambulatory, bedridden with active ROM Completely paralyzed or without active ROM 1 Triage 5 0-2 Triage 4 3-5 Triage 3 6-10 Triage 2 11-14 Triage 1 ?15 Total Triage Score = 3 RT to enter/modify frequency of treatment order in EMR/EHR to match this RAP evaluation. Based on this RAP evaluation the following therapy is being initiated: duoneb At the following frequency: PRN Comments: Pt takes PRN txs at home. Plus has refused the last 3 txs Thank you for involving Respiratory in the care of this patient, [facility] 11-28-2022 Note [facility] Respiratory Care Department Progress Note Comment or reasoning for refusal: Patient was seen in attempts to fulfill CPAP/BiPAP/AutoPAP order. Patient refused PAP therapy/study at this time. Patient was educated on medical need and reasoning for physician order to ensure patient was making an informed medical decision. All of the patient's questions were answered at this time and patient was informed that if the patient changes their mind regarding wearing PAP to hit their call light or inform their nurse to contact Respiratory. A second, consecutive night of refusing PAP therapy/study results in order completion in the EMR. If future CPAP/BiPAP/AutoPAP therapy or study is indicated please place another order in the EMR and the assigned Respiratory Therapist will reattempt to fulfill orders. Thank you for involving Respiratory in the care of this patient, [facility] 11-27-2022 Note Nutrition Assessment Type and Reason for Visit: Initial, Consult, Patient Education (s/p open heart surgery) Nutrition Recommendations/Plan: Continue NATALEE diet as ordered. If PO intake is consistently >75% at meals, can order cardiac diet restrictions Per MNT protocol, will order Ensure HP BID to promote adequate PO intake and postsurgical healing (160 kcal, 16 g protein, 8 oz each) Provided heart healthy and diabetes handouts at bedside with [facility] RD phone number. Will return, as able, prior to discharge to assess education needs RD will monitor and follow weekly Malnutrition Assessment: Malnutrition Status: At risk for malnutrition (Comment) (s/p open heart surgery) Context: Acute Illness Findings of the 6 clinical characteristics of malnutrition: Energy Intake: Unable to assess Weight Loss: No significant weight loss (per documented weight hx) Fluid Accumulation: No significant fluid accumulation [employer] Strength: Not Performed Nutrition Assessment: Pt with PMH including HTN, HLD, asthma, and hiatal hernia, DM, arthritis, CAD, hx of heart cath on 11/10/22 which showed severe triple-vessel disease presented on 11/26/22 for planned surgery and underwent CABG x3. POD 1. Extubated with diet ordered. At time of RD visit, pt sleeping restfully- RD did not disturb. Provided heart healthy and diabetes diet handouts on bedside table, with [facility] RD phone number Estimated Daily Nutrient Needs: Energy Requirements Based On: Kcal/kg Weight Used for Energy Requirements: [place] (25-30 kcal/kg) Weight for Energy Calculation (kg): 52.3 kg Total Energy Requirements (kcals/day): 7549-9353 Weight Used for Protein Requirements: [place] (1.2-1.5 g/kg) Weight in Kg Used for Protein Requirements: 52.3 kg Estimated Total Protein (g/day): 63-78 Estimated Daily Total Fluid (ml/day): per MD Nutrition Related Findings: Nutrition History: Unable to assess. GI symptoms: Unable to assess at this time. Felipe Scale Score: 19 .Wound Type: Multiple, Surgical Incision Net IO Since Admission: 908.43 mL [11/27/22 1232] Peripheral Vascular (WDL): Exceptions to WDL Bowel Sounds (All Quadrants): Hypoactive Abdomen Inspection: Soft, Rounded Labs and meds reviewed: acetaminophen, 1,000 mg, Oral, q8h aspirin, 81 mg, Oral, Daily chlorhexidine, 15 mL, Mouth/Throat, BID heparin, 5,000 Units, SubCUTAneous, BID ipratropium-albuterol, 3 mL, Nebulization, q6h ketorolac, 30 mg, IntraVENous, 4 times per day Lidocaine, 1 patch, TransDERmal, Daily mometasone-formoterol, 2 puff, Inhalation, BID mupirocin, , Nasal, BID pantoprazole, 40 mg, Oral, qAM AC polyethylene glycol (PEG) 3350, 17 g, Oral, Daily simvastatin, 40 mg, Oral, Nightly traMADol, 50 mg, Oral, BID vancomycin, 1,500 mg, IntraVENous, q12h insulin regular, 1-50 Units/hr, Last Rate: 5 Units/hr (11/27/22 1206) niCARdipine, 3-15 mg/hr, Last Rate: 2.5 mg/hr (11/27/22 0532) BMP: Recent Labs 11/26/22 1043 11/27/22 0017 NA 139 137 K 3.1* 3.5 CL 104 106 CO2 24 22 BUN 13 11 CREATININE 0.72 0.71 GLUCOSE 161* 125* CALCIUM 9.0 8.2* MG 2.5* 1.5* PHOS 3.5 -- Recent Labs 11/27/22 0506 11/27/22 0602 11/27/22 0723 11/27/22 0843 11/27/22 1107 11/27/22 1206 POCGLU 129* 157* 190* 159* 166* 187* Lab Results Component Value Date HGBA1C 8.0 (H) 11/20/2022 No results found for: VITD25 No results found for: ZINC Current Nutrition Therapies: Adult diet Regular; No Added Salt (3-4 gm) Current Oral Intake Average Meal Intake: Unable to assess Average Supplements Intake: None Ordered Anthropometric Measures: Height: 160 cm (5' 3 ) Current Body Weight: 93.7 kg (206 lb 9.1 oz) Admission Body Weight: 88.5 kg (195 lb) (stated) Usual Body Weight: (203# on 11/10/22, 205# on 09/08/22, 198# on 07/30/22) [place] Body Weight (lbs) (Calculated): 115 lbs [place] Body Weight (Kg) (Calculated): 52 kg % [place] Body Weight (Calculated): 179.6 % BMI (kg/m2) (Calculated): 36.6 BMI Categories: Obese Class 2 (BMI 35.0 -39.9) Wt Readings from Last 10 Encounters: 11/27/22 93.7 kg (206 lb 9.1 oz) 11/20/22 88.8 kg (195 lb 12.8 oz) 11/18/22 89.4 kg (197 lb) 10/26/19 95.3 kg (210 lb) Nutrition Diagnosis: Increased nutrient needs related to increase demand for energy/nutrients as evidenced by wounds (surgical) Nutrition Interventions: Nutrition Education/Counseling: Education needed, Education initiated Coordination of Nutrition Care: Continue to monitor while inpatient Goals: Goals: PO intake 75% or greater, prior to discharge Nutrition Monitoring and Evaluation: Food/Nutrient Intake Outcomes: Food and Nutrient Intake, Supplement Intake Physical Signs/Symptoms Outcomes: Biochemical Data, GI Status, Nausea or Vomiting, Fluid Status or Edema, Skin, Weight Discharge Planning: Too soon to determine Parris Judd RD, LD Contact: *[phone] or via [facility]26[facility]22 Note Central Venous Line: Date/Time: 11/26/2022 7:05 AM A central venous line was placed in the Procedural for the following indication(s): CVP monitoring. Sterility preparation included the following: provider hand hygiene performed prior to central venous catheter insertion, all 5 sterile barriers used (gloves, gown, cap, mask, large sterile drape) during central venous catheter insertion, antiseptic used during central venous catheter insertion and skin prep agent completely dried prior to procedure. The patient was placed in Trendelenburg position. Right internal jugular vein was prepped. The site was prepped with Chlorhexidine. Size: 8 Prydeinig Length: 16 Catheter type: introducer Number of Lumens: single lumen During the procedure, the following specific steps were taken: target vein identified, needle advanced into vein and blood aspirated and guidewire advanced into vein. Procedure performed using ultrasound guidance - Image permanently retained with wire or catheter in vein. Sterile gel and probe cover used in ultrasound-guided central venous catheter insertion. Intravenous verification was obtained by ultrasound. Post insertion care included: all ports aspirated, all ports flushed easily, guidewire removed intact, Biopatch applied, line sutured in place and dressing applied. During the procedure the patient experienced: patient tolerated procedure well with no complications. A non-oximetric, 7.5 (size) Pulmonary Artery Catheter (PAC) was placed through the Introducer CVL in the right internal jugular vein.. Staffing Performed: anesthesiologist Anesthesiologist: Rainer Goyal MD [facility] 11-26-2022 Note Patient: Ashwini Baron Procedure Summary Date: 11/26/22 Room / Location: [address] Operating Room Anesthesia Start: 654 Anesthesia Stop: 1130 Procedures: CABG WITH CHERI (Chest) Echocardiography transesophageal real-time Diagnosis: Atherosclerotic heart disease of atka coronary artery without angina pectoris (Atherosclerotic heart disease of [place]ka coronary artery without angina pectoris [I25.10]) Surgeons: Adrianne Sethi MD Responsible Provider: Rainer Goyal MD Anesthesia Type: general ASA Status: 4 Anesthesia Type: general Vitals Value Taken Time BP 108 38 11/26/22 1135 Temp 97 11/26/22 1135 Pulse 63 11/26/22 1134 Resp 20 11/26/22 1134 SpO2 90 % 11/26/22 1134 Vitals shown include unvalidated device data. Anesthesia Post Evaluation Patient location during evaluation: ICU Patient participation: complete - patient cannot participate Level of consciousness: intubated and sedated Pain management: adequate Airway patency: patent Dental Injury: no Cardiovascular status: acceptable and hemodynamically stable Respiratory status: acceptable, ETT, intubated and ventilator Hydration status: acceptable Nausea/Vomiting: controlled No notable events documented. Patient can be discharged once all PACU criteria has been met. [facility] 11-26-2022 Note Patient: Ashwini Baron Procedure Summary Date: 11/26/22 Room / Location: [address] Operating Room Anesthesia Start: 654 Anesthesia Stop: 1130 Procedures: CABG WITH CHERI (Chest) Echocardiography transesophageal real-time Diagnosis: Atherosclerotic heart disease of [place]ka coronary artery without angina pectoris (Atherosclerotic heart disease of [place] coronary artery without angina pectoris [I25.10]) Surgeons: Adrianne Sethi MD Responsible Provider: Rainer Goyal MD Anesthesia Type: general ASA Status: 4 Anesthesia Type: general Vitals Value Taken Time BP 108 38 11/26/22 1133 Temp 97 11/26/22 1133 Pulse 62 11/26/22 1132 Resp 16 11/26/22 1132 SpO2 96 % 11/26/22 1132 Vitals shown include unvalidated device data. Anesthesia Post Evaluation Patient location during evaluation: ICU Patient participation: complete - patient cannot participate Post-procedure mental status: sedated/intubated. Pain score: 0 Pain management: adequate Multimodal analgesia pain management approach Airway patency: patent Two or more strategies used to mitigate risk of obstructive sleep apnea Cardiovascular status: hemodynamically stable Respiratory status: acceptable, intubated, ventilator and ETT Hydration status: acceptable No notable events documented. MIPS #430 PONV Patient received an inhalational anesthetic (4554F) Patient does not exhibit three or more risk factors for PONV (X0430)) MIPS # 424 Perioperative Temperature Management Anesthesia time was 60 minutes or longer (4255F) Anesthesai administered was General (inhalational or TIVA) or Neuraxial block (X0424) At least one body temperature greater than 95.8F/35.5C achieved within the 30 mins immediately prior to or the 15 minutes immediately following anesthesia end time ([id number]) MIPS #477 Multimodal Pain Management Not emergent case Patient was not administered multimodal pain management Intubated patient MIPS #404 Anesthesiology Smoking Abstinence The patient is not a current smoker (e.g. cigarette, cigar, pipe, e-cigarette/vaping/marijuana) If no stop here (XX404) I completed my handoff to the receiving clinician during which we: 1. Identified the patient 2. Identified the responsible provider 3. Reviewed the pertinent medical history 4. Discussed the surgical course 5. Reviewed intra-op anesthesia management and issues during anesthesia 6. Set expectations for post-procedure period 7. Allowed opportunity for questions and acknowledgement of understanding. [facility] 11-26-2022 Note Patient recently see n in clinic No changes to H and P Consent obtained. Adrianne Sethi MD Cardiothoracic Surgery [facility] 11-26-2022 Note Arterial Line: Date/Time: 11/26/2022 6:55 AM An arterial line was placed Procedure performed using ultrasound guidance - Image permanently retained with wire or catheter in vein.in the Procedural for the following indication(s): continuous blood pressure monitoring and blood sampling needed. A 20 gauge (size), 1 and 3/4 inch (length), Arrow (type) catheter was placed, into the Left radial artery, secured by Tegaderm and tape. Staffing Performed: [facility] Anesthesiologist: Rainer Goyal MD Resident/SUPPLY CATALOGUER: Cody De La Paz APRN - SUPPLY CATALOGUER [facility] 11-26-2022 Note Airway Date/Time: 11/26/2022 6:58 AM Urgency: scheduled Airway not difficult General Information and Staff Patient location during procedure: Procedural Anesthesiologist: Rainer Goyal MD Resident/SUPPLY CATALOGUER: Cody De La Paz APRN - SUPPLY CATALOGUER Performed: SRNA Indications and Patient Condition Indications for airway management: anesthesia Sedation level: Asleep Preoxygenated: yes Patient position: sniffing Mask difficulty assessment: 1 - vent by mask Final Airway Details Final airway type: endotracheal airway Successful airway: ETT Cuffed: yes Successful intubation technique: direct laryngoscopy Facilitating devices/methods: intubating stylet Endotracheal tube insertion site: oral Blade: Abi Blade size: #3 Cormack-Lehane Classification: grade IIa - partial view of glottis Placement verified by: chest auscultation and capnometry Measured from: lips Number of attempts at approach: 1 [facility] 11-26-2022 Note PA Catheter Placemen t: Date/Time: 11/26/2022 7:23 AM A PA catheter was placed in the OR for the following indication(s): CVP monitoring. Staffing Performed: anesthesiologist Completed: patient identified, IV checked, site marked, risks and benefits discussed, surgical consent, monitors and equipment checked, pre-op evaluation and timeout performed Procedure Information Sterility preparation included the following: provider hand hygiene performed prior to central venous catheter insertion, all 5 sterile barriers used (gloves, gown, cap, mask, large sterile drape) during central venous catheter insertion and skin prep agent completely dried prior to procedure. The site was prepped with ChloraPrep. Skin prep agent completely dried prior to procedure. The patient was placed in Trendelenburg position. PA catheter laterality: Right Site: internal jugular vein PA catheter placement: distal introducer port Introducer size: 8.5 Fr Catheter size: 7.5 Catheter type: non-oximetric Successful placement with 1 attempt(s) The PAC placement was confirmed by pressure tracing changes and transduced waveform. Post insertion care included: dressing applied, line secured and line sutured. Procedure was uneventful. [facility] 11-26-2022 Note DATE OF PROCEDURE: PREOPERATIVE DIAGNOSIS: Coronary artery disease POSTOPERATIVE DIAGNOSIS: Coronary artery disease PROCEDURE: 1. Coronary artery bypass grafting x 3 - Left internal mammary artery to the left anterior descending - Saphenous vein graft to the obtuse marginal - Saphenous vein graft to the right posterior descending artery 2. Endoscopic vein harvest, left lower extremity SURGEON: Adrianne Sethi MD [employer] TEACHER: RUBIA Berrios COMPLICATIONS: None intra-op CONDITION: Stable DESCRIPTION OF PROCEDURE: The patient was prepped and draped in the appropriate manner, having undergone general endotracheal anesthetic in addition to Humboldt-Rubi catheter placement, arterial line, and fraga catheter placement. An antibiotic and a beta ghulam were administered pre-operatively and documented. Incision and conduit harvest/preparation: A midline sternotomy incision was utilized in standard fashion. The sternum was divided with the oscillating saw. The left internal mammary artery was taken down with clips and bovie cauterization. Papaverine was used. The left lower extremity saphenous vein was harvested via the endoscopic approach. The patient was fully heparinized prior to dividing and prepping the mammary. Cannulation and cardiopulmonary bypass: After cannulation, the patient was placed on cardiopulmonary bypass support and drifted to ~34 degrees. Ascending aortic cross-clamp was applied. Antegrade cardioplegia (microplegia) was delivered till the heart was arrested in diastole. Cardioplegia was re-administered every 20 minutes while the ascending aorta was cross clamped. Aortic canula: 21 Fr soft flow angled cannula in distal ascending aorta Venous canula: 29/29 Fr triple stage cannula via right atrial appendage Cardioplegia: Antegrade via cannula in the mid ascending aorta. Coronary artery bypass: Bypasses were performed to the atka arterial targets using the conduits listed above with 7-0 Prolene distally and 6-0 Prolene proximally to the ascending aorta. The left internal mammary artery was anastomosed to the LAD with 7-0 Prolene. CPB wean and decannulation: The patient was given a dose of warm blood cardioplegia. Valsalva breaths were mechanically administered and the aorta was unclamped. The heart returned to normal sinus rhythm. Pacing wire was not placed. The DLP left in place as a root vent. The patient was rewarmed and weaned from cardiopulmonary bypass support without difficulty. Protamine was administered and cannulas were removed without difficulty. Two 24 Fr eduardo drains were placed, one in the left pleural space and one in the mediastinum. Closure: Hemostasis was achieved. The sternum and incision were closed with sternal wires, running 0, 2-0 and 4-0 stitches. Dressings applied, and the patient was transferred to the cardiovascular intensive care unit in stable condition. Cardiopulmonary bypass time: 70 minutes Cross clamp time: 58 minutes Intra-op CHERI: Normal EF Adrianne Sethi MD Cardiothoracic Surgery [facility] 11-20-2022 Note Patient: Ashwini Baron Procedure Information Date/Time: 11/26/22 0700 Procedures: CABG WITH CHERI (Chest) Echocardiography transesophageal real-time Location: [facility] Operating Room Surgeons: Adrianne Sethi MD Past Medical History: Past Medical History: No date: Arthritis No date: Asthma No date: Carotid stenosis No date: Coronary artery disease No date: Diabetes mellitus (HCC) No date: Hiatal hernia No date: Hyperlipidemia No date: Hypertension Past Surgical History: Past Surgical History: No date: BREAST LUMPECTOMY; Bilateral Comment: non cancerous No date: CARDIAC CATHETERIZATION No date: CATARACT EXTRACTION; Bilateral No date: CHOLECYSTECTOMY No date: EAR SURGERY No date: OOPHORECTOMY No date: TUBAL LIGATION Social History: TOBACCO: reports that she has never smoked. She has never used smokeless tobacco. ETOH: reports no history of alcohol use. Social History Substance and Sexual Activity Drug Use Never Family History: Family History Problem Relation Name Age of Onset ? Stroke Mother ? Heart disease Mother ? Colon cancer Sister ? Diabetes Sister ? Thyroid cancer Brother Screening: Postmenopausal Clinical information reviewed: Tobacco Allergies Meds Med Hx Surg Hx OB Status Fam Hx Soc Hx Physical Exam Airway Mallampati: II TM distance: >3 FB Neck ROM: full Mouth Open: normalendotracheal tube not in place Cardiovascular Dental (+) Missing Pulmonary Abdominal Anesthesia (+) Delayed emergence from anesthesia (+) History of motion sickness Anesthesia Plan ASA 4 general The patient is not a current smoker. Anesthetic plan and risks discussed with patient. patient is NPO Insulin Sliding Scale: low RENE Screening YES - POSITIVE SCREEN PER SLEEP REFERRAL PROTOCOL Labs: No results found for: WBC, HGB, HCT, MCV, PLT No results found for: NA, K, CL, CO2, BUN, CREATININE, GLUCOSE, CALCIUM, PROT, BILIRUBINFL, ALKPHOS, AST, ALT, EGFR, GLOB Pain Score: 6 Pt underwent a heart catheterization on 11/10/22 which showed severe triple-vessel disease. Echocardiogram showed EF of 70%. No results found for this or any previous visit. ECG 11/20/2022 IMPRESSION: Sinus rhythm PVCs Borderline left axis deviation [facility] 11-20-2022 Note Comprehensive PreSur gical History and Physical ? Name: Ashwini Baron : 1950 (Age-72 y.o.) Date of Service: Pt seen/examined on 11/20/2022 Procedure Information Date/Time: 11/26/22 0700 Procedures: CABG WITH CHERI (Chest) Echocardiography transesophageal real-time Location: [address] Operating Room Surgeons: Adrianne Sethi MD Chief Complaint: Diagnosis: Atherosclerotic heart disease of atka coronary artery without angina pectoris [I25.10] History Of Present Illness: 72 y.o. female who we are asked to see/evaluate by Dr. Sethi for pre-operative evaluation prior to . ? Case: [id number] Date/Time: 11/26/22 07 Procedures: CABG WITH CHERI (Chest) [59785 CPT(R)] Echocardiography transesophageal real-time [74993 CPT(R)] Anesthesia type: General Diagnosis: Atherosclerotic heart disease of atka coronary artery without angina pectoris [I25.10] Pre-op diagnosis: Atherosclerotic heart disease of atka coronary artery without angina pectoris [I25.10] Location: [address] Operating Room Surgeons: Adrianne Sethi MD From office visit with Dr. Sethi: Ashwini Baron is a 72 y.o. female referred by Dr. Rubio for severe multi vessel disease. Per note, pt presented to ED for chest discomfort. She stated that she had been getting chest tightness whenever she walked around and it was associated with some shortness of breath. In the ED, she was noted to have markedly elevated blood pressures which was brought down with labetalol and ativan. Cardiac enzymes and EKG were normal. Pt underwent a heart catheterization on 11/10/22 which showed severe triple-vessel disease. Echocardiogram showed EF of 70%. Pt is here now for an evaluation. Pt currently c/o intermittent chest tightness. Patient reports exertional chest pain/shortness of breath. Denies dizziness, syncope, lightheadedness. Denies fever, chills, weakness or fatigue. Patient denies any recent illness, infections, or wounds. Patient denies abdominal pain, vomiting, diarrhea, or constipation. Reports intermittent nausea, typically after taking her blood pressure medications. 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 Patient denies hx of CHF, LA, TIA/CVA, COPD, RENE, DVT/PE. Past Medical History: Past Medical History: No date: Arthritis No date: Asthma No date: Carotid stenosis No date: Coronary artery disease No date: Diabetes mellitus (HCC) No date: Hiatal hernia No date: Hyperlipidemia No date: Hypertension Past Surgical History: Past Surgical History: No date: BREAST LUMPECTOMY; Bilateral Comment: non cancerous No date: CARDIAC CATHETERIZATION No date: CATARACT EXTRACTION; Bilateral No date: CHOLECYSTECTOMY No date: EAR SURGERY No date: OOPHORECTOMY No date: TUBAL LIGATION Medications Prior to Admission: Current Outpatient Medications on File Prior to Visit Medication Sig Dispense Refill albuterol 0.63 MG/3ML nebulizer solution Take 1 ampule by nebulization every 6 hours as needed. Alum Hydroxide-Mag Carbonate (GAVISCON PO) Take by mouth. amLODIPine (Norvasc) 5 MG tablet Take 5 mg by mouth daily. ascorbic acid (Vitamin C) 500 MG tablet Take 500 mg by mouth daily. budesonide-formoterol (Symbicort) 160-4.5 MCG/ACT inhaler Inhale 2 puffs in the morning and 2 puffs in the evening. calcium 500 MG tablet Take 500 mg by mouth daily. cetirizine (ZyrTEC) 10 MG tablet Take 10 mg by mouth daily. coenzyme Q-10 75 MG capsule Take 1 capsule by mouth daily. glimepiride (Amaryl) 4 MG tablet Take 4 mg by mouth every morning (before breakfast). lisinopril-hydroCHLOROthiazide 20-12.5 MG tablet Take 1 tablet by mouth 2 times daily. Melatonin 5 MG capsule Take 1 capsule by mouth Nightly as needed. metFORMIN (Glucophage) 500 MG tablet Take 2 tablets by mouth in the morning and 2 tablets in the evening. Take with meals. metoprolol succinate XL (Toprol-XL) 50 MG 24 hr tablet Take 50 mg by mouth daily. montelukast (Singulair) 10 MG tablet Take 1 tablet by mouth Nightly. Multiple Vitamin (MULTI-VITAMIN DAILY PO) Take 1 tablet by mouth daily. omega-3 (Fish Oil) 1000 MG capsule Take 1,000 mg by mouth daily. omeprazole (PriLOSEC) [address] capsule Take 20 mg by mouth in the morning and 20 mg in the evening. pioglitazone (Actos) 30 MG tablet Take 30 mg by mouth daily. simvastatin (Zocor) 40 MG tablet Take 1 tablet by mouth Nightly. traMADol (Ultram) 50 MG tablet Take 50 mg by mouth 2 times daily. Alum Hydroxide-Mag Trisilicate 80-14.2 MG chewable tablet Chew 1 tablet daily. chlorhexidine (Peridex) 0.12 % solution Use 15 mL in the mouth or throat See administration instructions for 2 doses. Swish and spit the night before surgery and AM of surgery. 30 mL 0 mupirocin (Bactroban) 2 % ointment Apply topically See administration instructions for 2 doses. Apply to inside of nostrils night before surgery and AM of surgery. 1 Tube 0 No current facility-administered medi (more content not included)... [facility] 11-20-2022 Note Comprehensive PreSur gical History and Physical ? Name: Ashwini Baron : 1950 (Age-72 y.o.) Date of Service: Pt seen/examined on 11/20/2022 Procedure Information Date/Time: 11/26/22 0700 Procedures: CABG WITH CHERI (Chest) Echocardiography transesophageal real-time Location: [address] Operating Room Surgeons: Adrianne Sethi MD Chief Complaint: Diagnosis: Atherosclerotic heart disease of atka coronary artery without angina pectoris [I25.10] History Of Present Illness: 72 y.o. female who we are asked to see/evaluate by Dr. Sethi for pre-operative evaluation prior to . ? Case: [id number] Date/Time: 11/26/22 07 Procedures: CABG WITH CHERI (Chest) [71042 CPT(R)] Echocardiography transesophageal real-time [21566 CPT(R)] Anesthesia type: General Diagnosis: Atherosclerotic heart disease of atka coronary artery without angina pectoris [I25.10] Pre-op diagnosis: Atherosclerotic heart disease of atka coronary artery without angina pectoris [I25.10] Location: [address] Operating Room Surgeons: Adrianne Sethi MD From office visit with Dr. Sethi: Ashwini Baron is a 72 y.o. female referred by Dr. Rubio for severe multi vessel disease. Per note, pt presented to ED for chest discomfort. She stated that she had been getting chest tightness whenever she walked around and it was associated with some shortness of breath. In the ED, she was noted to have markedly elevated blood pressures which was brought down with labetalol and ativan. Cardiac enzymes and EKG were normal. Pt underwent a heart catheterization on 11/10/22 which showed severe triple-vessel disease. Echocardiogram showed EF of 70%. Pt is here now for an evaluation. Pt currently c/o intermittent chest tightness. Patient reports exertional chest pain/shortness of breath. Denies dizziness, syncope, lightheadedness. Denies fever, chills, weakness or fatigue. Patient denies any recent illness, infections, or wounds. Patient denies abdominal pain, vomiting, diarrhea, or constipation. Reports intermittent nausea, typically after taking her blood pressure medications. 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 Patient denies hx of CHF, LA, TIA/CVA, COPD, RENE, DVT/PE. Past Medical History: Past Medical History: No date: Arthritis No date: Asthma No date: Carotid stenosis No date: Coronary artery disease No date: Diabetes mellitus (HCC) No date: Hiatal hernia No date: Hyperlipidemia No date: Hypertension Past Surgical History: Past Surgical History: No date: BREAST LUMPECTOMY; Bilateral Comment: non cancerous No date: CARDIAC CATHETERIZATION No date: CATARACT EXTRACTION; Bilateral No date: CHOLECYSTECTOMY No date: EAR SURGERY No date: OOPHORECTOMY No date: TUBAL LIGATION Medications Prior to Admission: Current Outpatient Medications on File Prior to Visit Medication Sig Dispense Refill albuterol 0.63 MG/3ML nebulizer solution Take 1 ampule by nebulization every 6 hours as needed. Alum Hydroxide-Mag Carbonate (GAVISCON PO) Take by mouth. amLODIPine (Norvasc) 5 MG tablet Take 5 mg by mouth daily. ascorbic acid (Vitamin C) 500 MG tablet Take 500 mg by mouth daily. budesonide-formoterol (Symbicort) 160-4.5 MCG/ACT inhaler Inhale 2 puffs in the morning and 2 puffs in the evening. calcium 500 MG tablet Take 500 mg by mouth daily. cetirizine (ZyrTEC) 10 MG tablet Take 10 mg by mouth daily. coenzyme Q-10 75 MG capsule Take 1 capsule by mouth daily. glimepiride (Amaryl) 4 MG tablet Take 4 mg by mouth every morning (before breakfast). lisinopril-hydroCHLOROthiazide 20-12.5 MG tablet Take 1 tablet by mouth 2 times daily. Melatonin 5 MG capsule Take 1 capsule by mouth Nightly as needed. metFORMIN (Glucophage) 500 MG tablet Take 2 tablets by mouth in the morning and 2 tablets in the evening. Take with meals. metoprolol succinate XL (Toprol-XL) 50 MG 24 hr tablet Take 50 mg by mouth daily. montelukast (Singulair) 10 MG tablet Take 1 tablet by mouth Nightly. Multiple Vitamin (MULTI-VITAMIN DAILY PO) Take 1 tablet by mouth daily. omega-3 (Fish Oil) 1000 MG capsule Take 1,000 mg by mouth daily. omeprazole (PriLOSEC) [address] capsule Take 20 mg by mouth in the morning and 20 mg in the evening. pioglitazone (Actos) 30 MG tablet Take 30 mg by mouth daily. simvastatin (Zocor) 40 MG tablet Take 1 tablet by mouth Nightly. traMADol (Ultram) 50 MG tablet Take 50 mg by mouth 2 times daily. Alum Hydroxide-Mag Trisilicate 80-14.2 MG chewable tablet Chew 1 tablet daily. chlorhexidine (Peridex) 0.12 % solution Use 15 mL in the mouth or throat See administration instructions for 2 doses. Swish and spit the night before surgery and AM of surgery. 30 mL 0 mupirocin (Bactroban) 2 % ointment Apply topically See administration instructions for 2 doses. Apply to inside of nostrils night before surgery and AM of surgery. 1 Tube 0 No current facility-administered medi (more content not included)... [facility] 11-19-2022 Telephone encounter Note Surg proc orders placed. Meds sent to [facility] in [place]. PATRICIA Ramirez CNP 11/19/22 [facility] 11-19-2022 Miscellaneous Notes Surg proc orders placed. Meds sent to [facility] in [place]. PATRICIA Ramirez CNP 11/19/22 Patient is scheduled for a CABG and CHERI on 11/26/22 @ 7 am. PAT is 11/20/22 @ [address]. Please place surg proc orders. Please e-scribe nasal ointment and mouth rinse. Thank you. documented in this encounter [facility] 11-18-2022 Telephone encounter Note Patient is scheduled for a CABG and CHERI on 11/26/22 @ 7 am. PAT is 11/20/22 @ [address]pm. Please place surg proc orders. Please e-scribe nasal ointment and mouth rinse. Thank you. [facility] 11-18-2022 History of Present illness Narrative Images from the original note were not included. [facility]ARDIOVASC[facility]ORACIC SURGERY [address] [facility] [address] Dept: [phone] Dept Loc: [phone] Visit type: New Reason for Visit: Coronary artery disease Assessment and plan 72 F with multivessel coronary artery disease CAD: Coronary artery disease: I discussed with her and her the indications, risks, benefits, and perioperative course of a coronary artery bypass grafting. I discussed alternatives including no intervention, medical therapy only, and percutaneous coronary intervention with medications. A surgical revascularization is recommended in her case. On my review of the coronary angiogram, she does have good targets and will need 3-4 vessel bypass grafts. She is quite functional and is of low risk. She is agreeable. A modified juliette's test performed on the left forearm showed significant perfusion of the palm via the radial artery and not the ulnar artery. The risks of the procedure/s include but are not limited to, bleeding, infection, pneumonia, respiratory failure, prolonged Intensive Care Unit stay, multiorgan failure, renal failure needing temporary and/or permanent dialysis, cerebrovascular accident, pulmonary embolism, deep venous thrombosis, cardiac failure or ischemia or arrhythmia, and . History of carotid artery disease: Known carotid artery disease. Bilateral bruits noted on examination. Diabetes: Medically managed on oral medications Adrianne Sethi MD Cardiothoracic Surgery History of Present Illness Ashwini Baron is a 72 y.o. female referred by Dr. Rubio for severe multi vessel disease. Per note, pt presented to ED for chest discomfort. She stated that she had been getting chest tightness whenever she walked around and it was associated with some shortness of breath. In the ED, she was noted to have markedly elevated blood pressures which was brought down with labetalol and ativan. Cardiac enzymes and EKG were normal. Pt underwent a heart catheterization on 11/10/22 which showed severe triple-vessel disease. Echocardiogram showed EF of 70%. Pt is here now for an evaluation. Pt currently c/o intermittent chest tightness. Past Medical History Past Medical History: Diagnosis Date Arthritis Asthma Carotid stenosis Diabetes mellitus (HCC) Hiatal hernia Hyperlipidemia Hypertension Past Surgical History Past Surgical History: Procedure Laterality Date CHOLECYSTECTOMY EAR SURGERY OOPHORECTOMY TUBAL LIGATION Family History Family History Problem Relation Name Age of Onset Stroke Mother Heart disease Mother Colon cancer Sister Diabetes Sister Thyroid cancer Brother Social History Social History Tobacco Use Smoking status: Never Smokeless tobacco: Never Substance Use Topics Alcohol use: Never Drug use: Never Allergies Allergies Allergen Reactions Cefprozil Hives and Rash Erythromycin Rash Gatifloxacin Hives and Rash Lincomycin Hives and Rash Metoclopramide Other Other reaction(s): Intolerance, Intolerance, Other: See Comments Morphine Other reaction(s): Other: See Comments, Other: See Comments, tachycardia Amoxicillin Other reaction(s): Hives Clavulanic Acid Hives Dextromethorphan Hives Doxylamine Hives Iodinated Contrast Media Hives Pseudoephedrine Hives Statins Other reaction(s): Other Doxycycline Unknown and Vomiting Only Other reaction(s): Unknown, Vomiting Sulfamethoxazole Unknown Other reaction(s): Unknown Trimethoprim Unknown Other reaction(s): Unknown Medications Current Outpatient Medications: albuterol 0.63 MG/3ML nebulizer solution, Take 1 ampule by nebulization every 6 hours as needed., Disp: , Rfl: Alum Hydroxide-Mag Trisilicate 80-14.2 MG chewable tablet, Chew 1 tablet daily., Disp: , Rfl: amLODIPine (Norvasc) 5 MG tablet, Take 5 mg by mouth daily., Disp: , Rfl: ascorbic acid (Vitamin C) 500 MG tablet, Take 500 mg by mouth daily., Disp: , Rfl: budesonide-formoterol (Symbicort) 160-4.5 MCG/ACT inhaler, Inhale 2 puffs in the morning and 2 puffs in the evening., Disp: , Rfl: calcium 500 MG tablet, Take 500 mg by mouth daily., Disp: , Rfl: cetirizine (ZyrTEC) 10 MG tablet, Take 10 mg by mouth daily., Disp: , Rfl: coenzyme Q-10 75 MG capsule, Take 1 capsule by mouth daily., Disp: , Rfl: glimepiride (Amaryl) 4 MG tablet, Take 4 mg by mouth every morning (before breakfast)., Disp: , Rfl: lisinopril-hydroCHLOROthiazide 20-12.5 MG tablet, Take 1 tablet by mouth 2 times daily., Disp: , Rfl: Melatonin 5 MG capsule, Take 1 capsule by mouth Nightly as needed., Disp: , Rfl: metFORMIN (Glucophage) 500 MG tablet, Take 2 tablets by mouth in the morning and 2 tablets in the evening. Take with meals., Disp: , Rfl: metoprolol succinate XL (Toprol-XL) 50 MG 24 hr tablet, Take 50 mg by mouth daily., Disp: , Rfl: montelukast (Singulair) 10 MG tablet, Take 1 tablet by mouth Nightly., Disp: , Rfl: Multiple Vitamin (MULTI-VITAMIN DAILY PO), Take 1 tablet by mouth daily., Disp: , Rfl: omeprazole (PriLOSEC) [address] capsule, Take 20 mg by mouth in the morning and 20 mg in the evening., Disp: , Rfl: pioglitazone (Actos) 30 MG tablet, Take 30 mg by mouth daily., Disp: , Rfl: simvastatin (Zocor) 40 MG tablet, Take 1 tablet by mouth Nightly., Disp: , Rfl: traMADol (Ultram) 50 MG tablet, Take 50 mg by mouth 2 times daily., Disp: , Rfl: Review of Systems Review of Systems Respiratory: Positive for chest tightness (intermittent). All other systems reviewed and are negative. Physical Exam Vitals: BP (!) 140/64 (BP Location: Left arm, Patient Position: Sitting, BP Cuff Size: Large adult) Pulse 80 Temp 36.3 C (97.3 F) (Temporal) Ht 1.6 m (5' 3 ) Wt 89.4 kg (197 lb) BMI 34.90 kg/m Constitutional: General: Not in acute distress. Appearance: Normal appearance. Not toxic-appearing. Ear, nose, mouth: Bilateral external ear and nose normal. Nose: Nose normal. Mouth: Appearance normal, no bleeding, moist mucus membranes Eyes: General: No scleral icterus. No discharge from bilateral eyes Extraocular Movements: Extraocular movements intact. Pupils equal and reactive bilaterally Cardiovascular: Heart: Regular rhythm. Normal heart sounds. Vascular: Bilateral carotid bruit. Edema: Mild edema in bilateral lower extremities Pulmonary: Effort: Pulmonary effort is normal. No respiratory distress. Breath sounds: Normal breath sounds. No wheezing. Chest wall: No tenderness. Abdominal: Appearance: Not distended Palpations: There is no abdominal tenderness, no guarding. Musculoskeletal: Bilateral upper and lower extremities: Normal range of motion, no deformity Head: Normocephalic and atraumatic. Neck: Normal range of motion and neck supple. No muscular tenderness. Lymphadenopathy: Cervical: No cervical adenopathy. Skin: General: Skin is warm and dry. Coloration: Skin is not jaundiced. Neurological: General: No focal deficit present. Cranial Nerves: No obvious cranial nerve deficit. Psychiatric: Mood and Affect: Mood normal. Thought Content: Thought content normal. Patient has good judgement and insight Mental Status: Alert and oriented to place, person, and time. Labs No results found for: WBC, HGB, PLT, NA, K, CREATININE Imaging Cardiac Catheterization 11/10/22 Echocardiogram 11/10/22 STS Risk of Mortality:1.259% Renal Failure:1.384% Permanent Stroke:1.626% Prolonged Ventilation:5.311% DSW Infection:0.200% Reoperation:1.268% Morbidity or Mortality:8.630% Short Length of Stay:42.613% Long Length of Stay:3.669% Treatment Team: PCP: Mariama Bacon MD Cardiology: Leo Rubio MD Disclaimer INFORMED CONSENT:The nature and purpose of the proposed treatment or procedure have been discussed. The risks and benefits of the proposed treatment or procedures have been reviewed. Alternatives have been reviewed in addition to the risks and benefits of not receiving treatments or undergoing procedures. Pursuant to this discussion, the patient agrees to undergo the proposed treatment or procedure. Captured images seen in this note from are not a substitute for a comprehensive interpretation of the entire data set as reflected by the interpreting physician with regard to radiology, echocardiography, and other diagnostic images. This note may have been dictated using ReferStar Practice Edition 2.6 and/or StockStreams Voice Recognition Feature. The document was proofread, however unrecognized voice recognition ward aide errors may be present. documented in this encounter [facility] 10-23-2022 Miscellaneous Notes Last Office Visit: 09-24-2022 Next Scheduled Office Visit: 01-27-2023 Requested Prescriptions Pending Prescriptions Disp Refills albuterol (PROVENTIL) 2.5 mg /3 mL (0.083 %) nebulizer solution 30 mL 3 Sig: INHALE WITH 1 VIAL IN NEBULIZER EVERY SIX HOURS NEEDED Wilson Shipley LPN October 23, 2022 2:58 PM documented in this encounter [facility] 09-24-2022 Note HNO ID: [id number] Author: Yomaira Mcelroy APRN.ECONOMIC DEVELOPER Service: ? Author Type: Nurse Practitioner Type: Progress Notes Filed: 09/24/2022 11:35 AM Note Text: This note was created using Yoogaiariter. Subjective Ashwini Baron is a 72 year old female who presents for concerns of intense left shoulder pain that started 2 weeks ago. She is now unable to lift her left arm. He denies any known trauma or injury. She states that she feels that it came on gradually but is not really sure because she states she also suffers from fibromyalgia and osteoarthritis. She states that her pain is present all the time but is worse when she moves her arm. She denies any numbness, tingling, or weakness in her hands. She states that she first noticed pain in her left bicep and tricep and states that they felt tender to the touch. She states that she previously had left shoulder bursitis but states that this pain feels different. She states she has been using Voltaren gel and Biofreeze topically. She states that both helped a little bit . She has been using Tylenol as well. She is on chronic tramadol due to back and sciatic pain that she receives through pain management. Review of Systems Constitutional: Negative for chills, diaphoresis, fatigue, fever and unexpected weight change. HENT: Negative for congestion, dental problem, ear discharge, ear pain, hearing loss and trouble swallowing. Eyes: Negative. Negative for pain, discharge and itching. Respiratory: Negative for chest tightness and shortness of breath. Cardiovascular: Negative for chest pain, palpitations and leg swelling. Gastrointestinal: Negative for abdominal pain, blood in stool, constipation, diarrhea and vomiting. Endocrine: Negative. Negative for cold intolerance, heat intolerance, polydipsia, polyphagia and polyuria. Genitourinary: Negative for difficulty urinating, dysuria, flank pain, hematuria and urgency. Musculoskeletal: Positive for arthralgias, back pain and myalgias. Negative for gait problem and joint swelling. Skin: Negative for color change, pallor, rash and wound. Allergic/Immunologic: Negative for immunocompromised state. Neurological: Negative for dizziness, weakness, numbness and headaches. Hematological: Negative. Negative for adenopathy. Does not bruise/bleed easily. Psychiatric/Behavioral: Negative for behavioral problems, self-injury and suicidal ideas. The patient is not nervous/anxious. Objective BP 138/84 (BP Site: Left Arm, BP Cuff Size: Regular Adult) Pulse 88 Temp 36 ?C (96.8 ?F) (Temporal) Resp 14 Wt 92.9 kg (204 lb 12.8 oz) SpO2 99% BMI 36.28 kg/m? Physical Exam Constitutional: Appearance: Normal appearance. She is obese. HENT: Head: Normocephalic and atraumatic. Right Ear: External ear normal. Left Ear: External ear normal. Nose: Nose normal. Mouth/Throat: Mouth: Mucous membranes are moist. Pharynx: Oropharynx is clear. Eyes: Extraocular Movements: Extraocular movements intact. Conjunctiva/sclera: Conjunctivae normal. Pupils: Pupils are equal, round, and reactive to light. Cardiovascular: Rate and Rhythm: Normal rate and regular rhythm. Pulses: Normal pulses. Heart sounds: Normal heart sounds. Pulmonary: Effort: Pulmonary effort is normal. Breath sounds: Normal breath sounds. Abdominal: General: Bowel sounds are normal. Palpations: Abdomen is soft. Musculoskeletal: Left shoulder: Tenderness present. No swelling or bony tenderness. Decreased range of motion. Decreased strength. Cervical back: Normal range of motion and neck supple. Comments: Painful range of motion; abduction, internal and external rotation; positive drop arm test Skin: General: Skin is warm and dry. Capillary Refill: Capillary refill takes less than 2 seconds. Neurological: General: No focal deficit present. Mental Status: She is alert and oriented to person, place, and time. Mental status is at baseline. Psychiatric: Mood and Affect: Mood normal. Behavior: Behavior normal. Assessment and Plan ASSESSMENT/PLAN: 1. Acute pain of left shoulder - ICD9: 719.41, ICD10: M25.512 Likely musculoskeletal in origin. Rx ibuprofen (clarified allergies) Conservative management Recommend referral to ortho if persistent pain; patient to call to tell us where she wants referral sent. Ashwini Baron is to follow up in 6 months. Discussed need for taking all medications as prescribed, increasing activity level as tolerated, and lowering sodium and processed food intake at today's visit. Patient is aware to call the office or send communication via Cumed for questions or concerns regarding today's appointment or follow up. Yomaira Mcelroy APRN.[facility] 09-24-2022 History of Present illness Narrative This note was created using Yoogaiariter. Subjective Ashwini Baron is a 72 year old female who presents for concerns of intense left shoulder pain that started 2 weeks ago. She is now unable to lift her left arm. He denies any known trauma or injury. She states that she feels that it came on gradually but is not really sure because she states she also suffers from fibromyalgia and osteoarthritis. She states that her pain is present all the time but is worse when she moves her arm. She denies any numbness, tingling, or weakness in her hands. She states that she first noticed pain in her left bicep and tricep and states that they felt tender to the touch. She states that she previously had left shoulder bursitis but states that this pain feels different. She states she has been using Voltaren gel and Biofreeze topically. She states that both helped a little bit . She has been using Tylenol as well. She is on chronic tramadol due to back and sciatic pain that she receives through pain management. Review of Systems Constitutional: Negative for chills, diaphoresis, fatigue, fever and unexpected weight change. HENT: Negative for congestion, dental problem, ear discharge, ear pain, hearing loss and trouble swallowing. Eyes: Negative. Negative for pain, discharge and itching. Respiratory: Negative for chest tightness and shortness of breath. Cardiovascular: Negative for chest pain, palpitations and leg swelling. Gastrointestinal: Negative for abdominal pain, blood in stool, constipation, diarrhea and vomiting. Endocrine: Negative. Negative for cold intolerance, heat intolerance, polydipsia, polyphagia and polyuria. Genitourinary: Negative for difficulty urinating, dysuria, flank pain, hematuria and urgency. Musculoskeletal: Positive for arthralgias, back pain and myalgias. Negative for gait problem and joint swelling. Skin: Negative for color change, pallor, rash and wound. Allergic/Immunologic: Negative for immunocompromised state. Neurological: Negative for dizziness, weakness, numbness and headaches. Hematological: Negative. Negative for adenopathy. Does not bruise/bleed easily. Psychiatric/Behavioral: Negative for behavioral problems, self-injury and suicidal ideas. The patient is not nervous/anxious. Objective BP 138/84 (BP Site: Left Arm, BP Cuff Size: Regular Adult) Pulse 88 Temp 36 C (96.8 F) (Temporal) Resp 14 Wt 92.9 kg (204 lb 12.8 oz) SpO2 99% BMI 36.28 kg/m Physical Exam Constitutional: Appearance: Normal appearance. She is obese. HENT: Head: Normocephalic and atraumatic. Right Ear: External ear normal. Left Ear: External ear normal. Nose: Nose normal. Mouth/Throat: Mouth: Mucous membranes are moist. Pharynx: Oropharynx is clear. Eyes: Extraocular Movements: Extraocular movements intact. Conjunctiva/sclera: Conjunctivae normal. Pupils: Pupils are equal, round, and reactive to light. Cardiovascular: Rate and Rhythm: Normal rate and regular rhythm. Pulses: Normal pulses. Heart sounds: Normal heart sounds. Pulmonary: Effort: Pulmonary effort is normal. Breath sounds: Normal breath sounds. Abdominal: General: Bowel sounds are normal. Palpations: Abdomen is soft. Musculoskeletal: Left shoulder: Tenderness present. No swelling or bony tenderness. Decreased range of motion. Decreased strength. Cervical back: Normal range of motion and neck supple. Comments: Painful range of motion; abduction, internal and external rotation; positive drop arm test Skin: General: Skin is warm and dry. Capillary Refill: Capillary refill takes less than 2 seconds. Neurological: General: No focal deficit present. Mental Status: She is alert and oriented to person, place, and time. Mental status is at baseline. Psychiatric: Mood and Affect: Mood normal. Behavior: Behavior normal. Assessment and Plan ASSESSMENT/PLAN: 1. Acute pain of left shoulder - ICD9: 719.41, ICD10: M25.512 Likely musculoskeletal in origin. Rx ibuprofen (clarified allergies) Conservative management Recommend referral to ortho if persistent pain; patient to call to tell us where she wants referral sent. Ashwini Baron is to follow up in 6 months. Discussed need for taking all medications as prescribed, increasing activity level as tolerated, and lowering sodium and processed food intake at today's visit. Patient is aware to call the office or send communication via Cumed for questions or concerns regarding today's appointment or follow up. Yomaira Mcelroy APRN.YULY documented in this encounter [facility] 09-09-2022 Miscellaneous Notes Returned call from Rody, patient's . Rody stated 3 of patient's medications were refilled with the wrong directions. This nurse verified medications, dose, directions and pharmacy. Patient's med list updated. Medications verified: Lisinopril-Hydrochlorothiazide 20-12.5 mg tablet: 1 Tablet twice a day Metformin 500 mg tablet: 2 Tablets twice a day Omeprazole 20 mg capsule: 1 capsule in the morning and 1 capsule in the evening LAST OFFICE VISIT: 07/30/22 Requested Prescriptions Pending Prescriptions Disp Refills metFORMIN (GLUCOPHAGE) 500 mg tablet 360 tablet 3 Sig: Take 2 tablets by mouth twice daily with meals. lisinopril-hydroCHLOROthiazide (PRINZIDE,ZESTORETIC) 20-12.5 mg per tablet 180 tablet 3 Sig: Take 1 tablet by mouth twice daily. omeprazole (PRILOSEC) 20 mg capsule 180 capsule 3 Sig: Take 1 capsule by mouth twice daily. Laura Lyons LPN September 09, 2022 6:08 PM documented in this encounter [facility] 09-05-2022 Note HNO ID: [id number] Author: Izzy Raymundo PA-C Service: ? Author Type: Physician Sewer Cleaner Type: Progress Notes Filed: 09/05/2022 1:53 PM Note Text: This note was created using Yoogaiariter. Subjective Ashwini Baron is a 72 year old female. HPI Patient presents with right eye pain and redness since this morning. She had COVID the beginning of August tested positive on a home test. She has gotten over that. She denies any drainage or discharge coming from the eye. She is sensitive to light. No recent fevers. She does not wear contacts. She does wear glasses. No visual changes. Review of Systems Constitutional: Negative. HENT: Negative. Eyes: Positive for photophobia, pain and redness. Negative for discharge, itching and visual disturbance. Respiratory: Negative. Cardiovascular: Negative. Gastrointestinal: Negative. All other systems reviewed and are negative. PAST MEDICAL HISTORY Diagnosis Date Asthma Carotid stenosis Delayed emergence from general anesthesia deep anesthesia 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) 05/22/2022 Diabetes mellitus, type 2 (HCC) Hyperlipidemia Hypertension Sliding hiatal hernia Current Outpatient Medications Medication Sig Dispense Refill ascorbic acid, vitamin C, (VITAMIN C) 500 mg tablet Take by mouth. multivitamin tablet Take by mouth. metFORMIN (GLUCOPHAGE) 500 mg tablet Take 1 tablet by mouth twice daily with meals. 180 tablet 3 simvastatin (ZOCOR) 40 mg tablet Take 1 tablet by mouth daily at bedtime. 90 tablet 3 lisinopril-hydroCHLOROthiazide (PRINZIDE,ZESTORETIC) 20-12.5 mg per tablet Take 1 tablet by mouth once daily. 90 tablet 3 montelukast (SINGULAIR) 10 mg tablet Take 1 tablet by mouth daily at bedtime. 90 tablet 3 omeprazole (PRILOSEC) 20 mg capsule Take 1 capsule by mouth once daily. 90 capsule 3 budesonide-formoterol (SYMBICORT) 160-4.5 mcg/actuation inhaler Inhale 2 Puffs as instructed twice daily. 10.2 g 3 pioglitazone (ACTOS) 45 mg tablet Take 1 tablet by mouth once daily. 90 tablet 3 glimepiride (AMARYL) 4 mg tablet Take 1 tablet by mouth daily with breakfast. 90 tablet 3 fluticasone (FLONASE ALLERGY RELIEF) 50 mcg/actuation nasal spray Use 2 Sprays in each nostril once daily. 16 g 2 traMADol (ULTRAM) 50 mg tablet Take 50 mg by mouth every 6 hours as needed for pain. methylcellulose (CITRUCEL ORAL) Take by mouth. diclofenac (VOLTAREN) 1 % topical gel Apply to affected area four times daily. mag carb/aluminum hydrox/algin (GAVISCON ORAL) Take by mouth. B-complex with vitamin C (SUPER B COMPLEX-VITAMIN C ORAL) Take by mouth. albuterol (PROVENTIL) 2.5 mg /3 mL (0.083 %) nebulizer solution INHALE WITH 1 VIAL IN NEBULIZER EVERY SIX HOURS NEEDED Albuterol Sulfate 0.63 mg/3 mL nebulizer solution 1 Ampule. FA/mv,Ca,iron,min/lycopene/lut (MULTIVITAL ORAL) Take by mouth. calcium carbonate/vitamin D3 (CALCIUM 500 + D ORAL) Take by mouth. cetirizine HCl (ZYRTEC ORAL) Take by mouth. ubidecarenone (CO Q-10 ORAL) Take by mouth. gentamicin (GENTAK) 0.3 % ophthalmic solution Use 2 Drops in the right eye every 4 hours for 7 days. 5 mL 0 No current facility-administered medications for this visit. PAST SURGICAL HISTORY Procedure Laterality Date BREAST BIOPSY Bilateral benign BREAST SURGERY HX CHOLECYSTECTOMY COLONOSCOPY 05/2017 EGD 04/2017 F SALPINGO-OOPHORECTOMY Left PAST SURGICAL HISTORY OF left TM repair TUBAL LIGATION FAMILY HISTORY Problem Relation Age of Onset Colon Cancer Sister 67 Thyroid Cancer Brother Cancer Sister vaginal Social History Tobacco Use Smoking status: Never Smokeless tobacco: Never Vaping Use Vaping Use: Never used Substance Use Topics Alcohol use: Not Currently Drug use: Not Currently Objective BP 132/82 Pulse 97 Temp 36.3 ?C (97.3 ?F) (Tympanic) Resp 18 Wt 92.4 kg (203 lb 9.6 oz) SpO2 98% BMI 36.07 kg/m? Physical Exam Vitals reviewed. Constitutional: Appearance: Normal appearance. HENT: Head: Normocephalic and atraumatic. Right Ear: Tympanic membrane, ear canal and external ear normal. Left Ear: Tympanic membrane, ear canal and external ear normal. Nose: Nose normal. Mouth/Throat: Mouth: Mucous membranes are moist. Pharynx: Oropharynx is clear. Eyes: Comments: Patient has injection of the sclera with some tearing. No significant erythema or swelling of the conjunctive a. PERRLA and EOMI. After tetracaine and fluorescein staining there is no foreign body or abrasion noted. Cardiovascular: Rate and Rhythm: Normal rate and regular rhythm. Heart sounds: Normal heart sounds. Pulmonary: Effort: Pulmonary effort is normal. Breath sounds: Normal breath sounds. Musculoskeletal: Cervical back: Neck supple. Lymphadenopathy: Cervical: No cervical adenopathy. Neurological: Mental Status: She is alert. Assessment and Plan ASSESSMENT/PLAN: 1. Eye redness - ICD9: 379.93, ICD10: H57.89 (more content not included)... [facility] 07-30-2022 History of Present illness Narrative This note was created using Songfor. Subjective Ashwini Baron is a 71 year old female. Ashwini presents today for her Medicare wellness exam Review of Systems Constitutional: Negative. HENT: Negative. Eyes: Negative. Respiratory: Negative. Cardiovascular: Negative. Gastrointestinal: Negative. Endocrine: Negative. Genitourinary: Negative. Musculoskeletal: Positive for back pain and myalgias. Skin: Negative. Allergic/Immunologic: Negative. Neurological: Negative. Hematological: Negative. Psychiatric/Behavioral: Negative. Objective BP 126/76 (BP Site: Left Arm, BP Position: Sitting, BP Cuff Size: Large Adult) Pulse 76 Temp 36.2 C (97.1 F) (Temporal) Resp 18 Ht 160 cm (5' 3 ) Wt 90.1 kg (198 lb 9.6 oz) SpO2 98% BMI 35.18 kg/m Physical Exam Vitals reviewed. Constitutional: Appearance: Normal appearance. HENT: Head: Normocephalic and atraumatic. Nose: Nose normal. Eyes: Extraocular Movements: Extraocular movements intact. Pupils: Pupils are equal, round, and reactive to light. Cardiovascular: Rate and Rhythm: Normal rate and regular rhythm. Pulmonary: Effort: Pulmonary effort is normal. Breath sounds: Normal breath sounds. Abdominal: General: Bowel sounds are normal. Palpations: Abdomen is soft. Musculoskeletal: General: Tenderness present. Normal range of motion. Cervical back: Normal range of motion and neck supple. Skin: General: Skin is warm and dry. Capillary Refill: Capillary refill takes less than 2 seconds. Neurological: General: No focal deficit present. Mental Status: She is alert and oriented to person, place, and time. Mental status is at baseline. Psychiatric: Mood and Affect: Mood normal. Behavior: Behavior normal. Assessment and Plan Ashwini was seen today for medicare wellness exam. Diagnoses and all orders for this visit: Wellness examination Essential (primary) hypertension Hypercholesterolemia 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) Mild intermittent asthma without complication Polyarthralgia Other orders - metFORMIN (GLUCOPHAGE) 500 mg tablet; Take 1 tablet by mouth twice daily with meals. - simvastatin (ZOCOR) 40 mg tablet; Take 1 tablet by mouth daily at bedtime. - lisinopril-hydroCHLOROthiazide (PRINZIDE,ZESTORETIC) 20-12.5 mg per tablet; Take 1 tablet by mouth once daily. - montelukast (SINGULAIR) 10 mg tablet; Take 1 tablet by mouth daily at bedtime. - omeprazole (PRILOSEC) 20 mg capsule; Take 1 capsule by mouth once daily. - budesonide-formoterol (SYMBICORT) 160-4.5 mcg/actuation inhaler; Inhale 2 Puffs as instructed twice daily. - pioglitazone (ACTOS) 45 mg tablet; Take 1 tablet by mouth once daily. - glimepiride (AMARYL) 4 mg tablet; Take 1 tablet by mouth daily with breakfast. - fluticasone (FLONASE ALLERGY RELIEF) 50 mcg/actuation nasal spray; Use 2 Sprays in each nostril once daily. Medicare Yearly Visit Current Outpatient Medications Medication Sig ascorbic acid, vitamin C, (VITAMIN C) 500 mg tablet Take by mouth. fluticasone (FLONASE) 50 mcg/actuation nasal spray Apply to affected area. multivitamin tablet Take by mouth. omeprazole (PRILOSEC) 20 mg capsule Take by mouth. pioglitazone (ACTOS) 45 mg tablet Take by mouth. traMADol (ULTRAM) 50 mg tablet Take 50 mg by mouth every 6 hours as needed for pain. methylcellulose (CITRUCEL ORAL) Take by mouth. diclofenac (VOLTAREN) 1 % topical gel Apply to affected area four times daily. mag carb/aluminum hydrox/algin (GAVISCON ORAL) Take by mouth. B-complex with vitamin C (SUPER B COMPLEX-VITAMIN C ORAL) Take by mouth. budesonide-formoterol (SYMBICORT) 160-4.5 mcg/actuation inhaler Inhale 2 Puffs as instructed twice daily. albuterol (PROVENTIL) 2.5 mg /3 mL (0.083 %) nebulizer solution INHALE WITH 1 VIAL IN NEBULIZER EVERY SIX HOURS NEEDED Albuterol Sulfate 0.63 mg/3 mL nebulizer solution 1 Ampule. metFORMIN (GLUCOPHAGE) 500 mg tablet Take 500 mg by mouth twice daily with meals. simvastatin (ZOCOR) 40 mg tablet Take 40 mg by mouth daily at bedtime. lisinopril-hydrochlorothiazide (PRINZIDE,ZESTORETIC) 20-12.5 mg per tablet Take 1 tablet by mouth once daily. montelukast sodium (SINGULAIR ORAL) Take by mouth. FA/mv,Ca,iron,min/lycopene/lut (MULTIVITAL ORAL) Take by mouth. calcium carbonate/vitamin D3 (CALCIUM 500 + D ORAL) Take by mouth. cetirizine HCl (ZYRTEC ORAL) Take by mouth. ubidecarenone (CO Q-10 ORAL) Take by mouth. glimepiride (AMARYL) 4 mg tablet Take 4 mg by mouth daily with breakfast. No current facility-administered medications for this visit. Medications reviewed: Yes Ashwini denies regular aerobic exercise. She watches her diet for sodium, low fat and low cholesterol most of the time. End of Live Planning discussed including patients advanced directive wishes: Yes I am willing to follow Ashwini advanced directives. Depression screen She in the past two weeks denies having felt down, depressed, hopeless, or with little interest or pleasure in doing things. Functional Ability/Safety Screen 1. Was the patient's timed Up and Go test unsteady or longer than 30 seconds? Yes 2. Does the patient need help with the phone, transportation, shopping,preparing meals, housework, laundry, medications or managing money? No 3. Does your home have rungs in the hallway, lack of grab bars in the bathroom, lack of handrails on the stairs or have poor lighting? Yes BP 126/76 Pulse 76 Temp (Src) 97.1 (Temporal) Resp 18 Ht 5' 3 (1.60m) Wt 198 lb 9.6 oz (90.1kg) SpO2 98% BMI 35.19 kg/(m^2). Mariama Bacon MD documented in this encounter [facility] 06-30-2022 Nurse Note [facility] [facility] documented in this encounter [facility] 03-06-[address] Woodruff office called this nurse stating that patient is requesting a sleep assessment. 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)- Primary Atherosclerotic heart disease of atka coronary artery without angina pectoris [facility] Diagnosis 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)- Primary Type II or unspecified type diabetes mellitus without mention of complication, not stated as uncontrolled [facility] Diagnosis S/P CABG x 3- Primary Postsurgical aortocoronary bypass status 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) [facility] Diagnosis SOB (shortness of breath) Shortness of breath [facility] Diagnosis Pressure injury of buttock, stage 3, unspecified laterality (HCC)- Primary documented in this encounter [facility]* Diagnosis 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)- Primary Type II or unspecified type diabetes mellitus without mention of complication, not stated as uncontrolled documented in this encounter [facility] note* Diagnosis UTI symptoms- Primary Other symptoms involving urinary system Otitis externa of both ears, unspecified chronicity, unspecified type documented in this encounter [facility] note* Diagnosis Belching- Primary Flatulence, eructation, and gas pain Bloating Flatulence, eructation, and gas pain Bile reflux gastritis Other specified gastritis without mention of hemorrhage documented in this encounter [facility] note* Diagnosis Urinary frequency- Primary documented in this encounter [facility] note* Diagnosis Skin yeast infection- Primary Candidiasis of skin and nails documented in this encounter [facility] note* Diagnosis Belching symptom Flatulence, eructation, and gas pain documented in this encounter [facility] note* Diagnosis Belching symptom Flatulence, eructation, and gas pain documented in this encounter [facility] note* Diagnosis Rash- Primary Rash and other nonspecific skin eruption Tinea cruris Dermatophytosis of groin and perianal area documented in this encounter [facility] note* Diagnosis Hypertension, unspecified type- Primary documented in this encounter [facility] note* Diagnosis Hypertension, essential- Primary Unspecified essential hypertension Pure hypercholesterolemia documented in this encounter [facility] note* Diagnosis Wellness examination- Primary Encounter for screening for depression Encounter for counseling regarding advance directives Hypertension, unspecified type Essential (primary) hypertension Unspecified essential hypertension Arteriosclerosis of coronary artery Coronary atherosclerosis of unspecified type of vessel, atka or graft Paroxysmal atrial fibrillation (HCC) Atrial fibrillation 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) Screening for deficiency anemia Screening for other and unspecified deficiency anemia Pure hypercholesterolemia documented in this encounter [facility] for referral (narrative)* Diagnostic Procedure Only (Routine) - Closed Specialty Diagnoses / Procedures Referred By Donavon t Referred To Contact XR IMAGING Diagnoses Belching symptom Procedures XR ABDOMEN 2V ROUTINE SUPINE W UPRIGHT/DECUB/CTL RADIOLOGIC EXAM ABDOMEN 2 [place] [address] [address] [place] [id number] [place] [address] Referral ID Status Reason Start Date Expiration Date V isits Requested Visits Authorized [id number] Closed Auto-Generate d Referral 01/06/2023 02/05/2024 1 1 [facility] for referral (narrative)* Outpatient Procedure (Routine) - Closed Specialty Diagnoses / Procedures Referred By Contac t Referred To Contact Diagnoses Belching symptom Procedures EGD DIAGNOSTIC ESOPHAGOGASTRODUODENOSCOPY [place] [address] [place] [address] Av Procedure [id number] [place] [address] Referral ID Status Reason Start Date Expiration Date V isits Requested Visits Authorized [id number] Closed Auto-Generate d Referral 01/14/2023 04/14/2023 1 1 [facility] for visit Narrative* Outpatient Procedure (Routine) - Closed Specialty Diagnoses / Procedures Referred By Contac t Referred To Contact Diagnoses Belching symptom Procedures EGD DIAGNOSTIC ESOPHAGOGASTRODUODENOSCOPY [place] [address] [place] [address] Av Procedure [address] [place] [address] Referral ID Status Reason Start Date Expiration Date V isits Requested Visits Authorized [id number] Closed Auto-Generate d Referral 01/14/2023 04/14/2023 1 1 [facility] Advance Directives No Advanced Directives Records FoundDocuments on File Type Date Recorded Patient Employment Adjudicator Expl anation Advance Directive(s) 09/18/2020 7:55 AM Advance Directive(s) 04/29/2020 8:26 AM Advance Directive(s) 04/12/2020 10:04 AM Documents on File Type Date Recorded Patient Employment Adjudicator Expl anation Advance Directive(s) 09/18/2020 7:55 AM Documents on File Type Date Recorded Patient Employment Adjudicator Expl anation Advance Directive(s) 09/18/2020 7:55 AM Latest Code Status on File Code Status Date Activated Date Inactivated Comments Full Code 11/26/2022 5:47 AM Latest Code Status on File Code Status Date Activated Date Inactivated Comments Full Code 11/26/2022 5:47 AM 12/01/2022 4:05 PM Documents on File Type Date Recorded Patient Employment Adjudicator Expl anation Advance Directives and Livin g Will 12/02/2022 10:05 AM Documents on File Type Date Recorded Patient Employment Adjudicator Expl anation Advance Directives and Livin g Will 12/02/2022 10:05 AM Latest Code Status on File Code Status Date Activated Date Inactivated Comments Full Code 11/26/2022 5:47 AM 12/01/2022 4:05 PM Reason for Referral Specialty Diagnoses / Procedures Referred By Contac t Referred To Contact Mariama Bacon MD [address] [place] [address] Referral ID Status Reason Start Date Expiration Date V isits Requested Visits Authorized [id number] Pending Review 1 1 Referral ID Status Reason Start Date Expiration Date V isits Requested Visits Authorized [id number] Pending Review 1 1 Specialty Diagnoses / Procedures Referred By Contac t Referred To Contact Abraham [place] MD [address] [facility] [place] [address] Referral ID Status Reason Start Date Expiration Date Visits Re quested Visits Authorized [id number] Closed 1 1 Specialty Diagnoses / Procedures Referred By Contac t Referred To Contact Elsie Smyth, PATRICIA - ECONOMIC DEVELOPER [address] [facility] [place] [address] Referral ID Status Reason Start Date Expiration Date Visits Re quested Visits Authorized [id number] Closed 1 1 Summary Purpose Family History No Family History Records FoundNo Family History Records FoundNo Family History Records FoundNo Family History Records Found Medications Administered Section Inactive Administered Medications - up to 3 most recent administrations Medication Order MAR Action Action Date Dose Rate Site NaCl 0.9% iv infusion 30 mL/hr, INTRAVENOUS, CONTINUOUS, Starting on Odilia 01/14/23 at 1330, Until Odilia 01/14/23 at 1515, Preprocedure Restarted 01/14/2023 2:16 PM EDT Additional Source Comments Source Comments (unrecognize d section and content) In the event this informatio n is protected by the Federal Confidentiality of Alcohol and Drug Abuse Patient Records regulations: The Federal rules restrict any use of the information to criminally investigate or prosecute any alcohol or drug abuse patient.[facility] event this information is protected by the Federal Confidentiality of Alcohol and Drug Abuse Patient Records regulations: The Federal rules restrict any use of the information to criminally investigate or prosecute any alcohol or drug abuse patient.[facility] the event this information is protected by the Federal Confidentiality of Alcohol and Drug Abuse Patient Records regulations: The Federal rules restrict any use of the information to criminally investigate or prosecute any alcohol or drug abuse patient.[facility] the event this information is protected by the Federal Confidentiality of Alcohol and Drug Abuse Patient Records regulations: The Federal rules restrict any use of the information to criminally investigate or prosecute any alcohol or drug abuse patient.[facility] the event this information is protected by the Federal Confidentiality of Alcohol and Drug Abuse Patient Records regulations: The Federal rules restrict any use of the information to criminally investigate or prosecute any alcohol or drug abuse patient.[facility] the event this information is protected by the Federal Confidentiality of Alcohol and Drug Abuse Patient Records regulations: The Federal rules restrict any use of the information to criminally investigate or prosecute any alcohol or drug abuse patient.[facility] the event this information is protected by the Federal Confidentiality of Alcohol and Drug Abuse Patient Records regulations: The Federal rules restrict any use of the information to criminally investigate or prosecute any alcohol or drug abuse patient.[facility] the event this information is protected by the Federal Confidentiality of Alcohol and Drug Abuse Patient Records regulations: The Federal rules restrict any use of the information to criminally investigate or prosecute any alcohol or drug abuse patient.[facility] the event this information is protected by the Federal Confidentiality of Alcohol and Drug Abuse Patient Records regulations: The Federal rules restrict any use of the information to criminally investigate or prosecute any alcohol or drug abuse patient.[facility] the event this information is protected by the Federal Confidentiality of Alcohol and Drug Abuse Patient Records regulations: The Federal rules restrict any use of the information to criminally investigate or prosecute any alcohol or drug abuse patient.[facility] the event this information is protected by the Federal Confidentiality of Alcohol and Drug Abuse Patient Records regulations: The Federal rules restrict any use of the information to criminally investigate or prosecute any alcohol or drug abuse patient.[facility] the event this information is protected by the Federal Confidentiality of Alcohol and Drug Abuse Patient Records regulations: The Federal rules restrict any use of the information to criminally investigate or prosecute any alcohol or drug abuse patient.[facility] the event this information is protected by the Federal Confidentiality of Alcohol and Drug Abuse Patient Records regulations: The Federal rules restrict any use of the information to criminally investigate or prosecute any alcohol or drug abuse patient.[facility] the event this information is protected by the Federal Confidentiality of Alcohol and Drug Abuse Patient Records regulations: The Federal rules restrict any use of the information to criminally investigate or prosecute any alcohol or drug abuse patient.[facility] the event this information is protected by the Federal Confidentiality of Alcohol and Drug Abuse Patient Records regulations: The Federal rules restrict any use of the information to criminally investigate or prosecute any alcohol or drug abuse patient.[facility] the event this information is protected by the Federal Confidentiality of Alcohol and Drug Abuse Patient Records regulations: The Federal rules restrict any use of the information to criminally investigate or prosecute any alcohol or drug abuse patient.[facility] the event this information is protected by the Federal Confidentiality of Alcohol and Drug Abuse Patient Records regulations: The Federal rules restrict any use of the information to criminally investigate or prosecute any alcohol or drug abuse patient.[facility] the event this information is protected by the Federal Confidentiality of Alcohol and Drug Abuse Patient Records regulations: The Federal rules restrict any use of the information to criminally investigate or prosecute any alcohol or drug abuse patient.[facility] the event this information is protected by the Federal Confidentiality of Alcohol and Drug Abuse Patient Records regulations: The Federal rules restrict any use of the information to criminally investigate or prosecute any alcohol or drug abuse patient.[facility] the event this information is protected by the Federal Confidentiality of Alcohol and Drug Abuse Patient Records regulations: The Federal rules restrict any use of the information to criminally investigate or prosecute any alcohol or drug abuse patient.[facility] the event this information is protected by the Federal Confidentiality of Alcohol and Drug Abuse Patient Records regulations: The Federal rules restrict any use of the information to criminally investigate or prosecute any alcohol or drug abuse patient.[facility] the event this information is protected by the Federal Confidentiality of Alcohol and Drug Abuse Patient Records regulations: The Federal rules restrict any use of the information to criminally investigate or prosecute any alcohol or drug abuse patient.[facility] the event this information is protected by the Federal Confidentiality of Alcohol and Drug Abuse Patient Records regulations: The Federal rules restrict any use of the information to criminally investigate or prosecute any alcohol or drug abuse patient.[facility] the event this information is protected by the Federal Confidentiality of Alcohol and Drug Abuse Patient Records regulations: The Federal rules restrict any use of the information to criminally investigate or prosecute any alcohol or drug abuse patient.[facility] the event this information is protected by the Federal Confidentiality of Alcohol and Drug Abuse Patient Records regulations: The Federal rules restrict any use of the information to criminally investigate or prosecute any alcohol or drug abuse patient.[facility] the event this information is protected by the Federal Confidentiality of Alcohol and Drug Abuse Patient Records regulations: The Federal rules restrict any use of the information to criminally investigate or prosecute any alcohol or drug abuse patient.[facility] the event this information is protected by the Federal Confidentiality of Alcohol and Drug Abuse Patient Records regulations: The Federal rules restrict any use of the information to criminally investigate or prosecute any alcohol or drug abuse patient.[facility] the event this information is protected by the Federal Confidentiality of Alcohol and Drug Abuse Patient Records regulations: The Federal rules restrict any use of the information to criminally investigate or prosecute any alcohol or drug abuse patient.[facility] the event this information is protected by the Federal Confidentiality of Alcohol and Drug Abuse Patient Records regulations: The Federal rules restrict any use of the information to criminally investigate or prosecute any alcohol or drug abuse patient.[facility] the event this information is protected by the Federal Confidentiality of Alcohol and Drug Abuse Patient Records regulations: The Federal rules restrict any use of the information to criminally investigate or prosecute any alcohol or drug abuse patient.[facility] the event this information is protected by the Federal Confidentiality of Alcohol and Drug Abuse Patient Records regulations: The Federal rules restrict any use of the information to criminally investigate or prosecute any alcohol or drug abuse patient.[facility] the event this information is protected by the Federal Confidentiality of Alcohol and Drug Abuse Patient Records regulations: The Federal rules restrict any use of the information to criminally investigate or prosecute any alcohol or drug abuse patient.[facility] the event this information is protected by the Federal Confidentiality of Alcohol and Drug Abuse Patient Records regulations: The Federal rules restrict any use of the information to criminally investigate or prosecute any alcohol or drug abuse patient.[facility] the event this information is protected by the Federal Confidentiality of Alcohol and Drug Abuse Patient Records regulations: The Federal rules restrict any use of the information to criminally investigate or prosecute any alcohol or drug abuse patient.[facility] the event this information is protected by the Federal Confidentiality of Alcohol and Drug Abuse Patient Records regulations: The Federal rules restrict any use of the information to criminally investigate or prosecute any alcohol or drug abuse patient.[facility] the event this information is protected by the Federal Confidentiality of Alcohol and Drug Abuse Patient Records regulations: The Federal rules restrict any use of the information to criminally investigate or prosecute any alcohol or drug abuse patient.[facility] the event this information is protected by the Federal Confidentiality of Alcohol and Drug Abuse Patient Records regulations: The Federal rules restrict any use of the information to criminally investigate or prosecute any alcohol or drug abuse patient.[facility] the event this information is protected by the Federal Confidentiality of Alcohol and Drug Abuse Patient Records regulations: The Federal rules restrict any use of the information to criminally investigate or prosecute any alcohol or drug abuse patient.[facility] the event this information is protected by the Federal Confidentiality of Alcohol and Drug Abuse Patient Records regulations: The Federal rules restrict any use of the information to criminally investigate or prosecute any alcohol or drug abuse patient.[facility] Reason for Visit (unrecogniz ed section and content) Reason Comments Medicare Wellness Exam Reason Onset Date Comments Refill Request 09/09/2022 Reason Comments Pain (Shoulder Pain) Left shoulder pain x 2 weeks sore to touch unable to lift arm above head Reason Onset Date Comments Refill Request 10/23/2022 Reason Comments New Patient Reason Onset Date Comments Surgery Scheduling 11/18/2022 Specialty Diagnoses / Procedures Referred By Contac t Referred To Contact Diagnoses 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] Procedures NM CABG W/ARTERIAL GRAFT SINGLE ARTERIAL GRAFT NM ECHO TRANSESOPHAG R-T 2D W/PRB IMG ACQUISJ I&R CABG WITH CHERI Echocardiography transesophageal real-time Adrianne Sethi MD [address] [place] [address] [address] [place] [address] [address] [place] [address] Referral ID Status Reason Start Date Expiration Date Visits Re quested Visits Authorized [id number] 1 Reason Onset Date Comments Refill Request 12/07/2022 Reason Comments Post-op Follow-up Reason Comments Patient Update Reason Comments Orders Reason Comments Results Reason Comments No PA required for Symbicort Reason Comments Acute Visit pressure ulcer on bu ttock Reason Comments Surgical Clearance Reason Comments Hydrogel gel is excluded from plan Reason Onset Date Comments Refill Request 04/06/2023 Reason Comments UTI Low back and bladder pain x 1 dayBilateral ear pain x 2 days Reason Comments Patient Update Medication Problem Reason Comments Abdominal Pain Reason Comments UTI Frequency Reason Comments Refill Request Reason Comments Rash Bilateral rash under breasts and groin x 3 days Reason Comments Radio Gen RMP Specialty Diagnoses / Procedures Referred By Contac t Referred To Contact XR IMAGING Diagnoses Belching symptom Procedures XR ABDOMEN 2V ROUTINE SUPINE W UPRIGHT/DECUB/CTL RADIOLOGIC EXAM ABDOMEN 2 VIEWS Ly, [place] [address] [place] [address] [place] [address] Referral ID Status Reason Start Date Expiration Date V isits Requested Visits Authorized [id number] Closed Auto-Generate d Referral 01/06/2023 02/05/2024 1 1 Reason Comments Rash On shoulders back an d sides, x 1.5 wks rash underbreasts Reason Comments Insurance Authorization Reason Comments Blood Pressure Elevated readings al l week Reason Comments Follow Up Reason Comments Medicare Wellness Exam Care Teams (unrecognized sec tion and content) Soil Field Technician Relationship Specialty Start Date End Date Mariama Bacon MD [address] [place] [address] PCP - General Family Medicine 04/27/18 Guero Diaz E [facility] [address] [place] [address] Gastroenterology 03/12/20 Soil Field Technician Relationship Specialty Start Date End Date Mariama Bacon MD [address] [place] [address] PCP - General Family Medicine 04/27/18 Guero Diaz [facility] [address] [place] [address] Gastroenterology 03/12/20 Soil Field Technician Relationship Specialty Start Date End Date Mariama Bacon MD [address] [place] [address] PCP - General Family Medicine 04/27/18 Guero Diaz E [facility] [address] [place] [address] Gastroenterology 03/12/20 Soil Field Technician Relationship Specialty Start Date End Date Mariama Bacon MD [address] [place] [address] PCP - General Family Medicine 04/27/[address] Guero [address] [facility] [address] [place] [address] Gastroenterology 03/12/20 Soil Field Technician Relationship Specialty Start Date End Date Mariama Bacon MD [address] [place] [address] PCP - General Family Medicine 04/27/18 Guero Diaz [address] [facility] [address] [place] [address] Gastroenterology 03/12/20 Soil Field Technician Relationship Specialty Start Date End Date Mariama Bacon MD [address] [place] [address] PCP - General Family Medicine 04/27/18 Guero Diaz [address] [place] [address] Gastroenterology 03/12/20 Soil Field Technician Relationship Specialty Start Date End Date Mariama Bacon MD [address] [place] [address] PCP - General Family Medicine 04/27/18 Guero Diaz [address] [place] [address] Gastroenterology 03/12/20 Soil Field Technician Relationship Specialty Start Date End Date Mariama Bacon MD [address] [place] [address] PCP - General Family Medicine 04/27/18 Guero Diaz [address] [place] [address] Gastroenterology 03/12/20 Soil Field Technician Relationship Specialty Start Date End Date Mariama Bacon [address] [facility] [place] [facility] [address] PCP - General 10/26/19 Soil Field Technician Relationship Specialty Start Date End Date Mariama Bacon [address] [facility] [place] [facility] [address] PCP - General 10/26/19 Soil Field Technician Relationship Specialty Start Date End Date Mariama Bacon [address] [facility] [place] [facility] [address] PCP - General 10/26/19 Soil Field Technician Relationship Specialty Start Date End Date Mariama Bacon [address] [facility] [place] [address] PCP - General 10/26/19 Soil Field Technician Relationship Specialty Start Date End Date Mariama Bacon [address] [facility] [place] [facility] [address] PCP - General 10/26/19 Soil Field Technician Relationship Specialty Start Date End Date Mariama Bacon [address] [facility] [place] [facility] [address] PCP - General 10/26/19 Soil Field Technician Relationship Specialty Start Date End Date JordiMariama MD [address] [place] [address] PCP - General Family Medicine 04/27/[address] [facility] [address] [place] [address] Gastroenterology 03/12/20 Soil Field Technician Relationship Specialty Start Date End Date Mariama Bacon [address] [place] [address] PCP - General 10/26/19 Soil Field Technician Relationship Specialty Start Date End Date Mariama Bacon MD [address] [place] [address] PCP - General Family Medicine 04/27/18 Guero Diaz [facility] [address] [place] [address] Gastroenterology 03/12/20 Soil Field Technician Relationship Specialty Start Date End Date JordiMariama Keerthi [address] [facility] [address] PCP - General 10/26/19 Soil Field Technician Relationship Specialty Start Date End Date Mariama Bacon MD [address] [place] [address] PCP - General Family Medicine 04/27/18 Guero Diaz E [facility] [address] [place] [address] Gastroenterology 03/12/20 Soil Field Technician Relationship Specialty Start Date End Date Mariama Bacon [address] [facility] [address] PCP - General 10/26/19 Soil Field Technician Relationship Specialty Start Date End Date Mariama Bacon MD [address] [place] [address] PCP - General Family Medicine 04/27/18 Guero Diaz E [facility] [address] [place] [address] Gastroenterology 03/12/20 Soil Field Technician Relationship Specialty Start Date End Date Mariama Bacon MD [address] [place] [address] PCP - General Family Medicine 04/27/18 Guero Diaz [address] [facility] [address] [place] [address] Gastroenterology 03/12/20 Soil Field Technician Relationship Specialty Start Date End Date Mariama Bacon MD [address] [place] [address] PCP - General Family Medicine 04/27/18 Guero Diaz [address] [facility] [address] [place] [address] Gastroenterology 03/12/20 Soil Field Technician Relationship Specialty Start Date End Date Mariama Bacon MD [address] [place] [address] PCP - General Family Medicine 04/27/18 Guero iDaz [address] [facility] [address] [place] [address] Gastroenterology 03/12/20 Soil Field Technician Relationship Specialty Start Date End Date Mariama Bacon MD [address] [place] [address] PCP - General Family Medicine 04/27/18 Guero Diaz [address] [facility] [address] [place] [address] Gastroenterology 03/12/20 Soil Field Technician Relationship Specialty Start Date End Date Mariama Bacon MD [address] [place] [address] PCP - General Family Medicine 04/27/18 Guero Diaz [address] [facility] [address] [place] [address] Gastroenterology 03/12/20 Soil Field Technician Relationship Specialty Start Date End Date Mariama Bacon MD [address] [place] [address] PCP - General Family Medicine 04/27/18 Guero Diaz [address] [place] [address] Gastroenterology 03/12/20 Soil Field Technician Relationship Specialty Start Date End Date Mariama Bacon MD [address] [place] [address] PCP - General Family Medicine 04/27/18 Guero Diaz [address] [facility] [address] [place] [address] Gastroenterology 03/12/20 Soil Field Technician Relationship Specialty Start Date End Date Mariama Bacon MD [address] [place] [address] PCP - General Family Medicine 04/27/18 Guero Diaz [address] [facility] [address] [place] [address] Gastroenterology 03/12/20 Soil Field Technician Relationship Specialty Start Date End Date Mariama Bacon MD [address] [place] [address] PCP - General Family Medicine 04/27/18 Guero Diaz [address] [facility] [address] [place] [address] Gastroenterology 03/12/20 Soil Field Technician Relationship Specialty Start Date End Date Mariama Bacon MD [address] [place] [address] PCP - General Family Medicine 04/27/18 Guero Diaz [address] [facility] [address] [place] [address] Gastroenterology 03/12/20 Soil Field Technician Relationship Specialty Start Date End Date Mariama Bacon MD [address] [place] [address] PCP - General Family Medicine 04/27/18 Guero Diaz [address] [employer] [address] [place] [address] Gastroenterology 03/12/20 Soil Field Technician Relationship Specialty Start Date End Date Mariama Bacon MD [address] [place] [address] PCP - General Family Medicine 04/27/18 Guero Diaz [address] [facility] [address] [place] [address] Gastroenterology 03/12/20 Soil Field Technician Relationship Specialty Start Date End Date Mariama Bacon MD [address] [place] [address] PCP - General Family Medicine 04/27/18 Guero Diaz [address] [facility] [address] [place] [address] Gastroenterology 03/12/20 Soil Field Technician Relationship Specialty Start Date End Date Mariama Bacon MD [address] [place] [address] PCP - General Family Medicine 04/27/18 Guero Diaz MD [address] [facility] [address] [place] [address] Gastroenterology 03/12/20 Soil Field Technician Relationship Specialty Start Date End Date Mariama Bacon MD [address] [place] [address] PCP - General Family Medicine 04/27/18 Guero Diaz MD [address] [facility] [address] [place] [address] Gastroenterology 03/12/20 Soil Field Technician Relationship Specialty Start Date End Date Mariama Bacon MD [address] [place] [address] PCP - General Family Medicine 04/27/18 Guero Diaz MD [address] [facility] [address] [place] [address] Gastroenterology 03/12/20 Soil Field Technician Relationship Specialty Start Date End Date Mariama Bacon MD [address] [place], [place] [address] PCP - General Family Medicine 04/27/18 Guero Diaz MD [address] [facility] [address] [place] [address] Gastroenterology 03/12/20 Soil Field Technician Relationship Specialty Start Date End Date Mariama Bacon MD [address] [place] [address] PCP - General Family Medicine 04/27/18 Guero Diaz MD [address] [facility] [address] [place] [address] Gastroenterology 03/12/20 Soil Field Technician Relationship Specialty Start Date End Date Mariama Bacon MD [address] [place] [address] PCP - General Family Medicine 04/27/18 Guero Diaz MD [address] [facility] [address] [place] [address] Gastroenterology 03/12/20 Soil Field Technician Relationship Specialty Start Date End Date Mariama Bacon MD [address] [place] [address] PCP - General Family Medicine 04/27/18 Guero Diaz MD [address] [facility] [address] [place] [address] Gastroenterology 03/12/20 Soil Field Technician Relationship Specialty Start Date End Date Mariama Bacon MD [address] [place], [place] [address] PCP - General Family Medicine 04/27/18 Guero Diaz MD [address] [facility] [address] [place] [address] Gastroenterology 03/12/20 Soil Field Technician Relationship Specialty Start Date End Date Mariama Bacon MD [address] [place] [address] PCP - General Family Medicine 04/27/18 Guero Diaz MD [address] [facility] [address] [place] [address] Gastroenterology 03/12/20 Soil Field Technician Relationship Specialty Start Date End Date Mariama Bacon MD [address] [place] [address] PCP - General Family Medicine 04/27/18 Guero Diaz MD [address] [facility] [address] [place] [address] Gastroenterology 03/12/20 Soil Field Technician Relationship Specialty Start Date End Date Mariama Bacon MD [address] [place] [address] PCP - General Family Medicine 04/27/18 Guero Diaz MD [address] [facility] [address] [place] [address] Gastroenterology 03/12/20 Soil Field Technician Relationship Specialty Start Date End Date Mariama Bacon MD [address] [place], [place] [address] PCP - General Family Medicine 04/27/18 Guero Diaz MD [address] [facility] [address] [place] [address] Gastroenterology 03/12/20 INFORMATION SOURCE (unrecogn ized section and content) DATE CREATED AUTHOR AUTHOR'S ORGANIZ ATION 01/25/2023 [facility] DATE CREATED AUTHOR AUTHOR'S ORGANIZ ATION 08/30/[address] [facility] DATE CREATED AUTHOR AUTHOR'S ORGANIZ ATION 09/02/2023 [facility] nter FOR RECORDS PERTAINING TO PATIENTS WHO ARE OR HAVE BEEN ENROLLED IN A CHEMICAL DEPENDENCY/SUBSTANCEABUSE PROGRAM, SOME INFORMATION MAY BE OMITTED. This clinical summary was aggregated from multiple sources. Caution should be exercised in using it in the provision of clinical care. This summary normalizes information from multiple sources, and as a consequence, information in this document may materially change the coding, format and clinical context of patient data. In addition, data may be omitted in some cases. CLINICAL DECISIONS SHOULD BE BASED ON THE PRIMARY CLINICAL RECORDS. [employer] [facility]. provides no warranty or guarantee of the accuracy or completeness of information in this document.
== END | disposition home or self-care (01) ==
LOC: CVS 07:51
PROVIDERS: PCP Family Medicine; Referring Provider Physician Assistant Medical; Visit Provider Physician Assistant Medical
DX: R09.89 Other specified symptoms and signs involving the circulatory and respiratory systems (principal)
CPT/HCPCS: 93880

== ENCOUNTER → 2023-10-27 | Outpatient (CLI) | payer MEDICARE, SELFPAY ==
[2023-10-27 13:25] LABS: Creatinine, Serum 0.85 mg/dL (0.55-1.02); EST Glomerular Filtration Rate 70 mL/min (>60); Est Glom Filt Rate - Afr Amer 85 mL/min (>60)
--- OUTSIDE RECORDS SUMMARY | 2023-10-27 20:39 | XMS RPT_ITS | CCD ---
Author Name Unknown Address [id number] [place] [address] Organization [facility] Care Team Providers Care Door Manager Name Role Phone EBER Mena RN, Judi Alvarado Unavailable Unavailabl e Yvon ASSISTANT SOFTBALL COACH, Chanda S Unavailable Yvon ASSISTANT SOFTBALL COACH, Chanda S Unavailable Sarah William MD Unavailable [...] Consulting Unavailable LESELSIE SCHNEIDER Referring Unavailable JORDI, AMRIAMA Primary Care Unavailable MONICA ORELLANA Attending Unavailable MONCIA ORELLANA Referring Unavailable JORDI, MARIAMA Primary Care [...] Diaz Unavailable Guero Diaz MD F Unavailable Mariama Bacon MD Primary Care Provider MARIAMA BACON Primary Care Unavailab le MARIAMA BACON Referring Unavailab le JORDI, MARIAMA RODRIGEUZ Primary Care Unavailab le MICKY ERIKA Attending Unavailable MARIAMA BACON Referring Unavailab le JORDI, MARIAMA RODRIGUEZ Primary Care Unavailab le JORDI, MARIAMA RODRIGUEZ Primary Care Unavailab le JORDI, MARIAMA RODRIGUEZ Primary Care Unavailab le JORDI, MARIAMA RODRIGUEZ Primary Care Unavailab le JRODI, MARIAMA RODRIGUEZ Primary Care Unavailab le MARIAMA [...] amoxicillin / clavulanate drug allergy 04-01-20 17 [facility] (5 sources) cefprozil drug allergy 04-01-20 17 [facility] (5 sources) Contrast media drug allergy 04-01-20 [facility] (8 sources) erythromycin; Translations: [ERYTHROMYCIN] drug allergy 04-01-20 17 [facility] (5 sources) gatifloxacin drug allergy 04-01-20 17 [facility] (20 sources) lincomycin; Translations: [LINCOMYCIN] drug allergy 02-01-20 17 Beatriz Jimenez [facility] (5 sources) lincomycin drug allergy 04-01-20 17 [facility] (5 sources) metoclopramide drug allergy 04-01-20 17 [facility] (5 sources) sulfamethoxazole / trimethoprim drug allergy 04-01-20 17 [facility] (5 sources) VICKS DAYQUIL/NYQUIL COUGH drug allergy 04-01-20 17 [facility] (20 sources) Amoxicillin / Clavulanate; Translations: [AMOXICILLIN-POT CLAVULANATE] Drug Allergy 04-27-20 [facility] Work Phone: (20 sources) cefprozil; Translations: [CEFPROZIL] Drug Allergy 04-27-20 [facility] Work Phone: (20 sources) Chlorpheniramine / Pseudoephedrine; Translations: [DAYQUIL ALLERGY 12-HR] Drug Allergy 04-27-[address] [facility] Work Phone: (20 sources) Erythromycin Drug Allergy 04-01-20 17 [facility] Work Phone: (20 sources) gatifloxacin; Translations: [GATIFLOXACIN] Drug Allergy 04-27-20 18 Rash [facility] Work Phone: (20 sources) Iodine; Translations: [IODINE] Drug Allergy 04-27-20 18 Other: See Comments, Unknown [facility] Work Phone: (20 sources) Metoclopramide; Translations: [METOCLOPRAMIDE HCL] Drug Allergy 04-27-20 18 Intolerance [facility] Work Phone: (20 sources) Clavulanate; Translations: [CLAVULANIC ACID] Drug Allergy 02-01-[address] [facility] (20 sources) Dextromethorphan; Translations: [DEXTROMETHORPHAN] Drug Allergy 02-01-[address] [facility] (20 sources) Doxycycline; Translations: [DOXYCYCLINE] Drug Allergy 11-29-19 19 Unknown, Vomiting, Vomiting Only [facility] (20 sources) Doxylamine; Translations: [DOXYLAMINE] Drug Allergy 02-01-[address] [facility] (15 sources) Ibuprofen; Translations: [IBUPROFEN] Drug Allergy 02-01-20 17 Other: See [facility] (20 sources) Metoclopramide; Translations: [METOCLOPRAMIDE] Drug Allergy 02-01-20 17 Other: See Comments, Other, Unknown [facility] (20 sources) Morphine; Translations: [MORPHINE] Drug Allergy 07-24-20 20 Other: See Comments, [facility] (20 sources) Pseudoephedrine; Translations: [PSEUDOEPHEDRINE] Drug Allergy 02-01-[address] [facility] (20 sources) Sulfamethoxazole; Translations: [SULFAMETHOXAZOLE] Drug Allergy 05-22-20 19 [facility] (20 sources) Sulfamethoxazole / Trimethoprim; Translations: [SULFAMETHOXAZOLE-T RIMETHOPRIM] Drug Allergy 04-01-20 17 Other: See Comments, Unknown [facility] (20 sources) Trimethoprim; Translations: [TRIMETHOPRIM] Drug Allergy 05-22-20 19 [facility] (20 sources) Iodinated Contrast Media; Translations: [IODINATED CONTRAST MEDIA] Drug Allergy 05-22-[address] [facility] (16 sources) Amoxicillin Drug Allergy 02-01-20 17 [facility] (16 sources) Cefprozil Allergy to substance 02-01-20 17 [facility] (16 sources) Gatifloxacin Allergy to substance 02-01-20 17 [facility] (16 sources) HMG-CoA reductase inhibitor Drug Allergy 02-01-20 17 [facility] (16 sources) Sulfamethoxazole Allergy to substance 05-22-20 19 Unknown [facility] (14 sources) Otsduwozhvxmo-Yd-Zs -Apap Propensity to adverse reactions 11-21-19 23 [facility] (20 sources) HMG-CoA reductase inhibitor; Translations: [FZWDMNK-ILF-XOL REDUCTASE INHIBITORS] Drug Allergy 02-01-20 [facility] (12 sources) Acetaminophen; Translations: [ACETAMINOPHEN] Drug Allergy 04-07-20 23 Unknown [facility] Medications Current Medications Medication Drug Class(es) Dates [...] Coronary arteriosclerosis; Translations: [Atherosclerotic heart disease of [place] coronary artery with other forms of angina [...] 160 cm Mariama Bacon MD Work Phone: [facility] 07-21-2023 10:38-0500 Body temperature 97.59 [degF] Mariama Bacon MD Work Phone: [facility] 07-21-2023 10:38-0500 Body weight 82.46 kg Mariama Bacon MD Work Phone: [facility] 07-21-2023 10:38-0500 Diastolic blood pressure 74 mm[Hg] Mariama Bacon MD Work Phone: [facility] 07-21-2023 10:38-0500 Heart rate 68 /min Mariama Bacon MD Work Phone: [facility] 07-21-2023 10:38-0500 Respiratory rate 18 /min Mariama Bacon MD Work Phone: [facility] 07-21-2023 10:38-0500 SaO2% (BldA) [Mass fraction] 100 % Mariama Bacon MD Work Phone: [facility] 07-21-2023 10:38-0500 Systolic blood pressure 134 mm[Hg] Mariama Bacon MD Work Phone: [facility] 07-12-2023 13:35-0500 Body height 160 cm Mariama Bacon MD Work Phone: [facility] 07-12-2023 13:35-0500 Body temperature 97.59 [degF] Mariama Bacon MD Work Phone: [facility] 07-12-2023 13:35-0500 Body weight 82.37 kg Mariama Bacon MD Work Phone: [facility] 07-12-2023 13:35-0500 Diastolic blood pressure 82 mm[Hg] Mariama Bacon MD Work Phone: [facility] 07-12-2023 13:35-0500 Heart rate 74 /min Mariama Bacon MD Work Phone: [facility] 07-12-2023 13:35-0500 Respiratory rate 18 /min Mariama Bacon MD Work Phone: [facility] 07-12-2023 13:35-0500 SaO2% (BldA) [Mass fraction] 97 % Mariama Bacon MD Work Phone: [facility] 07-12-2023 13:35-0500 Systolic blood pressure 138 mm[Hg] Mariama Bacon MD Work Phone: [facility] 07-10-2023 10:48-0500 Body temperature 97.5 [degF] Marva Praisler-Wood ASSEMBLY PERSON.VAULT PERSON Work Phone: [facility] 07-10-2023 10:48-0500 Body weight 82.56 kg Marva Praisler-Wood ASSEMBLY PERSON.VAULT PERSON Work Phone: [facility] 07-10-2023 10:48-0500 Diastolic blood pressure 80 mm[Hg] Marva Praisler-Wood ASSEMBLY PERSON.VAULT PERSON Work Phone: [facility] 07-10-2023 10:48-0500 Heart rate 84 /min Marva Praisler-Wood ASSEMBLY PERSON.VAULT PERSON Work Phone: [facility] 07-10-2023 10:48-0500 Respiratory rate 18 /min Marva Praisler-Wood ASSEMBLY PERSON.VAULT PERSON Work Phone: [facility] 07-10-2023 10:48-0500 SaO2% (BldA) [Mass fraction] 100 % Marva Praisler-Wood ASSEMBLY PERSON.VAULT PERSON Work Phone: [facility] 07-10-2023 10:48-0500 Systolic blood pressure 170 mm[Hg] Marva Praisler-Wood ASSEMBLY PERSON.VAULT PERSON Work Phone: [facility] 06-24-2023 08:35-0500 Body temperature 98.2 [degF] Savita Paul ASSEMBLY PERSON.VAULT PERSON Work Phone: [facility] 06-24-2023 08:35-0500 Body weight 80.74 kg Savita Paul ASSEMBLY PERSON.VAULT PERSON Work Phone: [facility] 06-24-2023 08:35-0500 Diastolic blood pressure 69 mm[Hg] Savita Paul ASSEMBLY PERSON.VAULT PERSON Work Phone: [facility] 06-24-2023 08:35-0500 Heart rate 97 /min Savita Paul ASSEMBLY PERSON.VAULT PERSON Work Phone: [facility] 06-24-2023 08:35-0500 Respiratory rate 20 /min Savita Paul ASSEMBLY PERSON.VAULT PERSON Work Phone: [facility] 06-24-2023 08:35-0500 SaO2% (BldA) [Mass fraction] 98 % Savita Pual ASSEMBLY PERSON.VAULT PERSON Work Phone: [facility] 06-24-2023 08:35-0500 Systolic blood pressure 149 mm[Hg] Savita Paul ASSEMBLY PERSON.VAULT PERSON Work Phone: [facility] 06-12-2023 08:18-0400 Body temperature 97.3 [degF] Anum Milford ASSEMBLY PERSON.VAULT PERSON Work Phone: [facility] 06-12-2023 08:18-0400 Body weight 81.01 kg Anum Milford ASSEMBLY PERSON.VAULT PERSON Work Phone: [facility] 06-12-2023 08:18-0400 Diastolic blood pressure 76 mm[Hg] Anum Ryan ASSEMBLY PERSON.VAULT PERSON Work Phone: [facility] 06-12-2023 08:18-0400 Heart rate 91 /min Anum Milford ASSEMBLY PERSON.VAULT PERSON Work Phone: [facility] 06-12-2023 08:18-0400 Respiratory rate 21 /min Anum Ryan ASSEMBLY PERSON.VAULT PERSON Work Phone: [facility] 06-12-2023 08:18-0400 SaO2% (BldA) [Mass fraction] 99 % Anum Milford ASSEMBLY PERSON.VAULT PERSON Work Phone: [facility] 06-12-2023 08:18-0400 Systolic blood pressure 144 mm[Hg] Anum Milford ASSEMBLY PERSON.VAULT PERSON Work Phone: [facility] 05-17-2023 11:27-0400 Body temperature 97.9 [degF] Marva Praisler-Wood ASSEMBLY PERSON.VAULT PERSON Work Phone: [facility] 05-17-2023 11:27-0400 Body weight 81.92 kg Marva Praisler-Wood ASSEMBLY PERSON.VAULT PERSON Work Phone: [facility] 05-17-2023 11:27-0400 Diastolic blood pressure 84 mm[Hg] Marva Praisler-Wood ASSEMBLY PERSON.VAULT PERSON Work Phone: [facility] 05-17-2023 11:27-0400 Heart rate 89 /min Marva Praisler-Wood ASSEMBLY PERSON.VAULT PERSON Work Phone: [facility] 05-17-2023 11:27-0400 Respiratory rate 18 /min Marva Praisler-Wood ASSEMBLY PERSON.VAULT PERSON Work Phone: [facility] 05-17-2023 11:27-0400 SaO2% (BldA) [Mass fraction] 99 % Marva Praisler-Wood ASSEMBLY PERSON.VAULT PERSON Work Phone: [facility] 05-17-2023 11:27-0400 Systolic blood pressure 179 mm[Hg] Marva Praisler-Wood ASSEMBLY PERSON.VAULT PERSON Work Phone: [facility] 04-20-2023 09:03-0400 Body weight 80.74 kg Harlan Sybil ASSEMBLY PERSON.VAULT PERSON Work Phone: [facility] 04-20-2023 09:03-0400 Diastolic blood pressure 75 mm[Hg] Harlan Sybil ASSEMBLY PERSON.VAULT PERSON Work Phone: [facility] 04-20-2023 09:03-0400 Heart rate 89 /min Harlan Sybil ASSEMBLY PERSON.VAULT PERSON Work Phone: [facility] 04-20-2023 09:03-0400 Systolic blood pressure 127 mm[Hg] Harlan Sybil ASSEMBLY PERSON.VAULT PERSON Work Phone: [facility] 04-14-2023 12:04-0400 Body temperature 98.01 [degF] Chula Crooks ASSEMBLY PERSON.VAULT PERSON Work Phone: [facility] 04-14-2023 12:04-0400 Body weight 81.92 kg Chula Crooks ASSEMBLY PERSON.VAULT PERSON Work Phone: [facility] 04-14-2023 12:04-0400 Diastolic blood pressure 72 mm[Hg] Chula Crooks ASSEMBLY PERSON.VAULT PERSON Work Phone: [facility] 04-14-2023 12:04-0400 Heart rate 95 /min Chula Crooks ASSEMBLY PERSON.VAULT PERSON Work Phone: [facility] 04-14-2023 12:04-0400 Respiratory rate 21 /min Chula Crooks ASSEMBLY PERSON.VAULT PERSON Work Phone: [facility] 04-14-2023 12:04-0400 SaO2% (BldA) [Mass fraction] 98 % Chula Crooks ASSEMBLY PERSON.VAULT PERSON Work Phone: [facility] 04-14-2023 12:04-0400 Systolic blood pressure 140 mm[Hg] Chula Crooks ASSEMBLY PERSON.VAULT PERSON Work Phone: [facility] 02-10-2023 10:15-0400 Body height 160 cm Mariama Bacon MD Work Phone: [facility] 02-10-2023 10:15-0400 Body temperature 96.91 [degF] Mariama Bacon MD Work Phone: [facility] 02-10-2023 10:15-0400 Body weight 85 kg Mariama Bacon MD Work Phone: [facility] 02-10-2023 10:15-0400 Diastolic blood pressure 78 mm[Hg] Mariama Bacon MD Work Phone: [facility] 02-10-2023 10:15-0400 Heart rate 90 /min Mariama Bacon MD Work Phone: [facility] 02-10-2023 10:15-0400 Respiratory rate 14 /min Mariama Bacon MD Work Phone: [facility] 02-10-2023 10:15-0400 SaO2% (BldA) [Mass fraction] 99 % Mariama Bacon MD Work Phone: [facility] 02-10-2023 10:15-0400 Systolic blood pressure 142 mm[Hg] Mariama Bacon MD Work Phone: [facility] 01-14-2023 14:50-0400 Diastolic blood pressure 67 mm[Hg] Erika Ly DO Work Phone: [facility] 01-14-2023 14:50-0400 Heart rate 94 /min Erika Ly DO Work Phone: [facility] 01-14-2023 14:50-0400 Respiratory rate 22 /min Erika Ly DO Work Phone: [facility] 01-14-2023 14:50-0400 SaO2% (BldA) [Mass fraction] 100 % Erika Ly DO Work Phone: [facility] 01-14-2023 14:50-0400 Systolic blood pressure 134 mm[Hg] Erika Ly DO Work Phone: [facility] 01-14-2023 14:20-0400 Body temperature 97 [degF] Erika Ly DO Work Phone: [facility] 12-10-2022 09:44-0400 Body height 160 cm Elsie Munguiamiguel ASSEMBLY PERSON - VAULT PERSON Work Phone: [facility] 12-10-2022 09:44-0400 Body mass index (BMI) [Ratio] 35.61 kg/m2 Elsie Ezramiguel ASSEMBLY PERSON - VAULT PERSON Work Phone: [facility] 12-10-2022 09:44-0400 Body temperature 98.2 [degF] Elsie Smyth ASSEMBLY PERSON - VAULT PERSON Work Phone: [facility] 12-10-2022 09:44-0400 Body weight 91.17 kg Elsie Smyth ASSEMBLY PERSON - VAULT PERSON Work Phone: [facility] 12-10-2022 09:44-0400 Diastolic blood pressure 79 mm[Hg] Elsie Smyth ASSEMBLY PERSON - VAULT PERSON Work Phone: [facility] 12-10-2022 09:44-0400 Heart rate 78 /min Elsie Smyth ASSEMBLY PERSON - VAULT PERSON Work Phone: [facility] 12-10-2022 09:44-0400 Systolic blood pressure 151 mm[Hg] Elsie Smyth ASSEMBLY PERSON - VAULT PERSON Work Phone: [facility] 11-18-2022 14:53-0400 Body height 160 cm Adrianne Sethi MD Work Phone: [facility] 11-18-2022 14:53-0400 Body mass index (BMI) [Ratio] 34.9 kg/m2 Adrianne Sethi MD Work Phone: [facility] 11-18-2022 14:53-0400 Body temperature 97.3 [degF] Adrianne Sethi MD Work Phone: [facility] 11-18-2022 14:53-0400 Body weight 89.36 kg Adrianne Sethi MD Work Phone: [facility] 11-18-2022 14:53-0400 Diastolic blood pressure 64 mm[Hg] Adrianne Sethi MD Work Phone: [facility] 11-18-2022 14:53-0400 Heart rate 80 /min Adrianne Sethi MD Work Phone: [facility] 11-18-2022 14:53-0400 Systolic blood pressure 140 mm[Hg] Adrianne Sethi MD Work Phone: [facility] 09-24-2022 08:54-0500 Body temperature 96.8 [degF] Yomaira Mcelroy APRN.VAULT PERSON Work Phone: [facility] 09-24-2022 08:54-0500 Body weight 92.9 kg Yomaira Mcelroy ASSEMBLY PERSON.VAULT PERSON Work Phone: [facility] 09-24-2022 08:54-0500 Diastolic blood pressure 84 mm[Hg] Yomaira Mcelroy ASSEMBLY PERSON.VAULT PERSON Work Phone: [facility] 09-24-2022 08:54-0500 Heart rate 88 /min Yomaira Mcelroy ASSEMBLY PERSON.VAULT PERSON Work Phone: [facility] 09-24-2022 08:54-0500 Respiratory rate 14 /min Yomaira Mcelroy ASSEMBLY PERSON.VAULT PERSON Work Phone: [facility] 09-24-2022 08:54-0500 SaO2% (BldA) [Mass fraction] 99 % Yomaira Mcelroy ASSEMBLY PERSON.VAULT PERSON Work Phone: [facility] 09-24-2022 08:54-0500 Systolic blood pressure 138 mm[Hg] Yomaira Mcelroy ASSEMBLY PERSON.VAULT PERSON Work Phone: [facility] 07-30-2022 09:10-0500 Body height 160 cm Mariama Bacon MD Work Phone: [facility] 07-30-2022 09:10-0500 Body temperature 97.11 [degF] Mariama Bacon MD Work Phone: [facility] 07-30-2022 09:10-0500 Body weight 90.08 kg Mariama Bacon MD Work Phone: [facility] 07-30-2022 09:10-0500 Diastolic blood pressure 76 mm[Hg] Mariama Bacon MD Work Phone: [facility] 07-30-2022 09:10-0500 Heart rate 76 /min Mariama Bacon MD Work Phone: [facility] 07-30-2022 09:10-0500 Respiratory rate 18 /min Mariama Bacon MD Work Phone: [facility] 07-30-2022 09:10-0500 SaO2% (BldA) [Mass fraction] 98 % Mariama Bacon MD Work Phone: [facility] 07-30-2022 09:10-0500 Systolic blood pressure 126 mm[Hg] Mariama Bacon MD Work Phone: [facility] 04-01-2017 08:28-0400 BMI (Body Mass Index) 34.29 kg/m2 Chanda Sanz NP [facility] 04-01-2017 08:28-0400 Body Temperature 97.1 [degF] Chanda Sanz ASSISTANT SOFTBALL COACH [facility] 04-01-2017 08:28-0400 Body Temperature 97.11 [degF] Chanda Sanz ASSISTANT SOFTBALL COACH [facility] 04-01-2017 08:28-0400 BP Diastolic 93 mm[Hg] Chanda Sanz ASSISTANT SOFTBALL COACH [facility] 04-01-2017 08:28-0400 BP Systolic 156 mm[Hg] Chanda Sanz ASSISTANT SOFTBALL COACH [facility] 04-01-2017 08:28-0400 Height 160.02 cm Chanda Sanz NP [facility] 04-01-2017 08:28-0400 Pulse (Heart Rate) 68 /min Chanda Sanz ASSISTANT SOFTBALL COACH [facility] 04-01-2017 08:28-0400 Respiratory Rate 16 /min Chanda Sanz ASSISTANT SOFTBALL COACH [facility] 04-01-2017 08:28-0400 Weight 87.82 kg Chanda Sanz ASSISTANT SOFTBALL COACH [facility] Encounters Encounter Date Encounter Type Care Provider Facility Start: 09-01-2023 End: 09-01-2023 ambulatory MARIAMA BACON Facility:[id number] Start: 08-30-2023 End: 08-30-2023 ambulatory MARIAMA BACON Facility:[facility] Start: 2023 End: 2023 ambulatory MARIAMA BACON Facility:[facility] Start: 07-22-2023 End: 07-23-2023 ambulatory MARIAMA BACON Facility:[facility] Start: 07-21-2023 End: 07-21-2023 ambulatory MARIAMA BACON Facility:[id number] Start: 07-21-2023 Encounter for genera l adult medical examination without abnormal findings MARIAMA BACON [facility] Start: 07-21-2023 End: 07-21-2023 Patient encounter procedure Mariama Bacon MD Work Phone: [facility] Procedures Date Procedure Procedure Detail Performing Clinician Start: 05-17-2023 Urnls dip stick/tablet rgnt auto w/o microscopy Marycruz Rockwell ASSEMBLY PERSON.VAULT PERSON Work Phone: Start: 04-14-2023 Urnls dip stick/tablet rgnt auto w/o microscopy Marycruz Rockwell ASSEMBLY PERSON.VAULT PERSON Work Phone: Start: 01-14-2023 End: 01-14-2023 Cytp [...] Radiologic exam chest 2 views Monica Orellana ASSEMBLY PERSON - VAULT PERSON Work Phone: Start: 12-10-2022 Follow-up visit Follow-up ELSIE SMYTH Start: 11-29-2022 Radiologic exam chest single view Elsie Smyth ASSEMBLY PERSON - VAULT PERSON Work Phone: Start: 11-28-2022 Radiologic exam abdomen 1 view sIabella Capps MD Start: 11-28-2022 Radiologic exam chest single view Elsie Smyth ASSEMBLY PERSON - VAULT PERSON Work Phone: Start: 11-27-2022 Radiologic exam chest single view Elsie Smyth ASSEMBLY PERSON - VAULT PERSON Work Phone: Start: 11-26-2022 Radiologic exam chest single view Elsie Smyth ASSEMBLY PERSON - VAULT PERSON Work Phone: Start: 11-20-2022 Lipid 1996 panel [...] Gynecologic examination Routine gynecological examination Chanda Sanz ASSISTANT SOFTBALL COACH Start: 04-01-2017 Screening mammography Mammogram yearly screening Chanda Sanz ASSISTANT SOFTBALL COACH Start: 04-01-2017 Venereal disease screening Std screening Chanda Milan s ASSISTANT SOFTBALL COACH History of coronary artery bypass grafting S/P CABG x 3 Elsie Smyth ASSEMBLY PERSON - VAULT PERSON Work Phone: Plan of Treatment Date Care Activity Detail Author Start: 04-29-2030 Screening for malignant neoplasm of colon [facility] Start: 04-29-2025 Colonoscopy COLONOSCOPY [facility] Start: 04-29-2025 COLORECTAL CANCER SCREENING COLORECTAL CANCER SCREENING [facility] Start: 07-21-2024 Annual PCP Team Chronic Disease Visit Annual PCP Team Chronic Disease Visit [facility] Start: 07-12-2024 Annual PCP Team Chronic Disease Visit Annual PCP Team Chronic Disease Visit [facility] Start: 05-10-2024 Annual PCP Team Chronic Disease Visit Annual PCP Team Chronic Disease Visit [facility] Start: 04-20-2024 BP CONTROLLED (<130/80) BP CONTROLLED (<130/80) [facility] Start: 02-23-2024 ANNUAL PCP TEAM CHRONIC DISEASE VISIT ANNUAL PCP TEAM CHRONIC DISEASE VISIT [facility] Start: 02-11-2024 ANNUAL PCP TEAM CHRONIC DISEASE VISIT ANNUAL PCP TEAM CHRONIC DISEASE VISIT [facility] Start: 01-28-2024 ANNUAL PCP TEAM CHRONIC DISEASE VISIT ANNUAL PCP TEAM CHRONIC DISEASE VISIT [facility] Start: 01-26-2024 Hepatitis B surface antibody level LDL CHOLESTEROL [facility] Start: 12-31-2023 ANNUAL PCP TEAM CHRONIC DISEASE VISIT ANNUAL PCP TEAM CHRONIC DISEASE VISIT [facility] Start: 11-21-2023 Hepatitis B surface antibody level LDL CHOLESTEROL [facility] Start: 11-21-2023 Lipid panel Lipid Panel [facility] Start: 09-24-2023 ANNUAL PCP TEAM CHRONIC DISEASE VISIT ANNUAL PCP TEAM CHRONIC DISEASE VISIT [facility] Start: 09-24-2023 BP CONTROLLED (<130/80) BP CONTROLLED (<130/80) [facility] Start: 07-30-2023 ANNUAL PCP TEAM CHRONIC DISEASE VISIT ANNUAL PCP TEAM CHRONIC DISEASE VISIT [facility] Start: 07-30-2023 BP CONTROLLED (<130/80) BP CONTROLLED (<130/80) [facility] Start: 07-27-2023 Hemoglobin A1c/Hemoglobin.total in Blood HBA1C [facility] Start: 07-21-2023 End: 10-20-2023 CBC W Auto Differential panel - Blood CBC + DIFF Lab Routine Screening for deficiency anemia Expected: 07/21/2023, Expires: 10/20/2023 [facility] Work Phone: Immunizations Immunization Date Immunization Notes Care Provider Ernesto castellanos 05-17-2023 influenza (HD-IIV4) vaccine, age 65+ yr, high dose, quadrivalent, PF (FLUZONE HIGH-DOSE) Mariama Bacon MD Work Phone: [facility] 06-11-2022 COVID-19 booster vac cine, age 12+ yr, bivalent (MODERNA) Yomaira Mcelroy APRN.VAULT PERSON Work Phone: [facility] 06-01-2022 influenza, high-dose , quadrivalent vaccine (FLUZONE HIGH DOSE QUADRIVALENT) Yomaira Mcelroy APRN.VAULT PERSON Work Phone: [facility] 06-01-2022 influenza virus vacc ine, unspecified formulation Marva Madera APRN.VAULT PERSON Work Phone: [facility] 12-02-2021 COVID-19 original vaccine, full dose, monovalent (MODERNA) Yomaira Mcelroy APRN.VAULT PERSON Work Phone: [facility] 07-11-2021 COVID-19 original vaccine, full dose, monovalent (MODERNA) Yomaira Lilibeth ASSEMBLY PERSON.VAULT PERSON Work Phone: [facility] 05-12-2021 influenza, high-dose , quadrivalent vaccine (FLUZONE HIGH DOSE QUADRIVALENT) Yomaira Mcelroy ASSEMBLY PERSON.VAULT PERSON Work Phone: [facility] 11-15-2020 COVID-19 original vaccine, full dose, monovalent (MODERNA) Yomaira Mcelroy ASSEMBLY PERSON.VAULT PERSON Work Phone: [facility] 10-18-2020 COVID-19 original vaccine, full dose, monovalent (MODERNA) Yomaira Lilibeth ASSEMBLY PERSON.VAULT PERSON Work Phone: [facility] 05-22-2020 influenza nasal, unspecified formulation Yomaira Mcelroy ASSEMBLY PERSON.VAULT PERSON Work Phone: [facility] 05-22-2020 influenza, high-dose , quadrivalent vaccine (FLUZONE HIGH DOSE QUADRIVALENT) Yomaira Mcelroy ASSEMBLY PERSON.VAULT PERSON Work Phone: [facility] 01-25-2020 zoster vaccine recombinant Yomaira Lilibeth ASSEMBLY PERSON.VAULT PERSON Work Phone: [facility] 01-25-2020 zoster vaccine, live Yomaira S zymrudyki ASSEMBLY PERSON.VAULT PERSON Work Phone: [facility] 10-26-2019 zoster vaccine recombinant Yomaira Lilibeth ASSEMBLY PERSON.VAULT PERSON Work Phone: [facility] 10-26-2019 zoster vaccine, live Yomaira S zymrudyki ASSEMBLY PERSON.VAULT PERSON Work Phone: [facility] 06-28-2019 pneumococcal conjuga te vaccine, 13 valent Yomaira Mcelroy ASSEMBLY PERSON.VAULT PERSON Work Phone: [facility] 06-13-2018 pneumococcal polysaccharide vaccine, 23 valent Yomaira Mcelroy ASSEMBLY PERSON.VAULT PERSON Work Phone: [facility] 06-08-2018 influenza nasal, unspecified formulation Yomaira Mcelroy ASSEMBLY PERSON.VAULT PERSON Work Phone: [facility] Payers Date Payer Category Payer Medicare [facility] AARP MEDICAR E [facility] AARP MEDICARE HMO [id number] 2020-Present [phone] [address] [address] [place] [address] HMO [id number] 2020 Medicare [id number] 2020 Medicare [id number] Social History Date Type Detail Facility Start: 04-27-2018 End: 07-30-2022 Tobacco smoking status NHIS Never smoked tobacco [facility] Work Phone: Start: 04-27-2018 End: 07-30-2022 Tobacco use and exposure Smokeless tobacco non-user [facility] Work Phone: Start: 1950 Sex Assigned At Female [facility] Start: 07-30-2022 End: 07-21-2023 Alcohol intake Ex-drinker (finding) [facility] Start: 07-30-2022 History SDOH Alcohol Std Drinks 0 [facility] Start: 07-30-2022 History SDOH Social Connections Phone 5 [facility] Start: 07-30-2022 History SDOH Social Connections Orthodoxy 3 [facility] Start: 07-30-2022 History SDOH Social Connections Membership 2 [facility] Start: 07-30-2022 History SDOH Social Connections Meetings 1 [facility] Start: 11-18-2022 End: 12-10-2022 Alcohol intake Lifetime non-drinker (finding) [facility] Start: 1950 Sex Assigned At Not on file [facility] Start: 11-08-2022 End: 12-22-2022 Exposure to SARS-CoV-2 (event) Not sure [facility] Start: 07-30-2022 End: 12-30-2022 History of Social function [facility] Start: 07-30-2022 End: 12-30-2022 Social connection and isolation panel [facility] Do you belong to any clubs or organizations such as mandaen groups, unions, fraternal or athletic groups, or school groups? No [facility] Are you now , , , , never or living with a partner? [facility] Frequency of Alcohol Consumption Not on file [facility] Do you feel stress - tense, restless, nervous, or anxious, or unable to sleep at night because your mind is troubled all the time - these days [OSQ] Not at all [facility] (I/We) worried wheth er (my/our) food would run out before (I/we) got money to buy more. Never true [facility] Start: 05-02-2020 Gender identity Identifies as female gender (finding) [facility] Start: 05-02-2020 Sexual orientation Heterosexual (finding) [facility] Medical Equipment Procedure Code Equipment Code Equipment Origin al Text Equipment Identifier Dates Start: 12-07-2022 Clinical Notes 03-06-2022 to 09-01-2023 Patient InstructionsMariama Bacon MD - 07/21/2023 11:00 AM Wilson Canela LPN - 07/21/2023 10:24 AM Mariama Peña MD - 07/12/2023 1:52 PM ESTPatient Instructions Note Date & Type Note Facility 09-01-2023 Note HNO ID: [id number] Author: MARIAMA BACON MD Service: ? Author Type: Physician Type: Progress Notes Filed: 09/01/2023 13:16 Note Text: This note was created using [employer]. Subjective Ashwini Baron is a 73 year [...] 1 month as needed. Mariama Bacon MD [facility] 09-01-2023 Note HNO ID: [id number] Author: WILSON SHIPLEY LPN Service: ? Author [...] Shipley LPN September 01, 2023 11:16 AM [facility] 08-30-2023 Note HNO ID: [id number] Author: RUSH CAO APRN.VAULT PERSON Service: ? Author Type: Nurse Practitioner Type: [...] Dye [Iodine], Lincomycin, Pseudoephedrine, Reglan [Metoclopramide Hcl], Bccxxdv-Qsh-Luy Reductase Inhibitors, Tequin [Gatifloxacin], and Doxycycline MEDICATIONS [...] hydroCHLOROthiazide 12.5 mg tablet Take by mouth. ircitwka-gnaewwbjz-wyrquhotnlfxnc (CORTISPORIN) 3.5-10,000-1 mg/mL-unit/mL-% otic suspension Use 3 [...] Never Vaping Us (more content not included)... [facility] 2023 Note HNO ID: [id number] Author: TOAN CHANEL PA Service: ? Author Type: Physician Academic Vice President Type: Progress Notes Filed: 2023 12:45 Note Text: This note was created using [employer]. Subjective Ashwini Baron is a 73 year [...] of it. She was seen by her civil structural designer back in May for this and treated [...] Dye [Iodine], Lincomycin, Pseudoephedrine, Reglan [Metoclopramide Hcl], Wcxgtku-Cnh-Uti Reductase Inhibitors, Tequin [Gatifloxacin], Doxycycline, Sulfamethoxazole, and [...] hydroCHLOROthiazide 12.5 mg tablet Take by mouth. dwuruknv-nrxlhrdpx-jsvrzfxcfgkvhn (CORTISPORIN) 3.5-10,000-1 mg/mL-unit/mL-% otic suspension Use 3 [...] by mouth twice daily. lancets (ONE TOUCH DELAdvisor Client Match) 33 gauge 1 Each once daily. blood [...] % cream Appl (more content not included)... [facility] 07-21-2023 Note HNO ID: [id number] Author: Mariama Bacon MD Service: ? Author [...] Lincomycin Rash Pseudoephedrine Hives Reglan [Metoclopram* Intolerance Pghfuva-Rro-Dvk Red* Unknown Other reaction(s): Other Tequin [Gatifloxaci* [...] hydroCHLOROthiazide 12.5 mg tablet Take by mouth. rcvjvzkz-zwwzpmvnc-vvuhqtghhvxuct (CORTISPORIN) 3.5-10,000-1 mg/mL-unit/mL-% otic suspension Use 3 [...] by mouth twice daily. lancets (ONE TOUCH DELAdvisor Client Match) 33 gauge 1 Each once daily. blood [...] twice daily. Al (more content not included)... [facility] 07-21-2023 Note HNO ID: [id number] Author: Wilson Shipley LPN Service: ? Author Type: LICENSED NURSE Type: Progress Notes Filed: 07/21/2023 11:26 AM Note Text: DUE HE[employer] MAINTENANCE Urine Albumin:Creatinine Ratio declined Diabetic Foot Exam declined Spirometry declined Hepatitis C Screening declined DTaP,Tdap,Td Vaccine(1 - Tdap) declined Mammogram Screening states will schedule Bone Density Screening Dilated Retinal Exam Dr. Alex Shipley LPN July 21, 2023 10:38 AM [facility] 07-21-2023 Instructions Mariama Bacon MD [...] review all the medicines you take, even debs-gkc-rlfjulk medicines. As you get older, the way [...] certain medical conditions. documented in this encounter [facility] 07-21-2023 History of Present illness Narrative Subjective [...] Lincomycin Rash Pseudoephedrine Hives Reglan [Metoclopram* Intolerance Livvaln-Rik-Aem Red* Unknown Other reaction(s): Other Tequin [Gatifloxaci* [...] hydroCHLOROthiazide 12.5 mg tablet Take by mouth. moupokiz-pgncurtxp-gwourcxrtemnna (CORTISPORIN) 3.5-10,000-1 mg/mL-unit/mL-% otic suspension Use 3 [...] by mouth twice daily. lancets (ONE TOUCH DELAdvisor Client Match) 33 gauge 1 Each once daily. blood [...] 2023 10:38 AM documented in this encounter [facility] 07-12-2023 Note HNO ID: [id number] Author: Mariama Bacon MD Service: ? Author Type: Physician Type: Progress Notes Filed: 07/12/2023 2:27 PM Note Text: Subjective Ashwini Baron is a 72 year old female. Ashwini presents today for elevated blood pressure readings. Her hydrochlorothiazide was stopped by her lens mounter due to it drying out her nose [...] Lincomycin Rash Pseudoephedrine Hives Reglan [Metoclopram* Intolerance Hsheejg-Saj-Lky Red* Unknown Other reaction(s): Other Tequin [Gatifloxaci* [...] ampules with saline and apply twice daily dglzkybb-mchzykuyw-opkeaekhbdvlgn (CORTISPORIN) 3.5-10,000-1 mg/mL-unit/mL-% otic suspension Use 3 [...] Take by mouth. (more content not included)... [facility] 07-12-2023 Note HNO ID: [id number] Author: Wilson Shipley LPN Service: ? Author Type: LICENSED NURSE Type: Progress Notes Filed: 07/12/2023 2:27 PM Note Text: Patient in the office today for a follow up exam after being seen at [facility] on 07/10/2023 for hypertension. Lisinopril was increased to 10 mg BID instead of once daily. Patient states her BP was 196/100. Patient states that lens mounter informed her to stop taking Hydrochlorothiazide because [...] Shipley LPN July 12, 2023 1:35 PM [facility] 07-12-2023 History of Present illness Narrative Subjective Ashwini Baron is a 72 year old female. Ashwini presents today for elevated blood pressure readings. Her hydrochlorothiazide was stopped by her lens mounter due to it drying out her nose subsequently her blood pressure readings have been much higher. She was seen in [facility] and was informed to raise her lisinopril [...] Lincomycin Rash Pseudoephedrine Hives Reglan [Metoclopram* Intolerance Remiold-Adt-Wpn Red* Unknown Other reaction(s): Other Tequin [Gatifloxaci* [...] ampules with saline and apply twice daily ptokzbqp-cyxfsujjp-jnrgcmwdgmsvcx (CORTISPORIN) 3.5-10,000-1 mg/mL-unit/mL-% otic suspension Use 3 [...] follow up exam after being seen at [facility] on 07/10/2023 for hypertension. Lisinopril was increased to 10 mg BID instead of once daily. Patient states her BP was 196/100. Patient states that lens mounter informed her to stop taking Hydrochlorothiazide because [...] 2023 1:35 PM documented in this encounter [facility] 07-10-2023 Note HNO ID: [id number] Author: Marva Madera APRN.VAULT PERSON Service: ? Author Type: Nurse Practitioner Type: [...] syndrome. She has a PCP and a meat apprentice. She can see her PCP the first [...] Dye [Iodine], Lincomycin, Pseudoephedrine, Reglan [Metoclopramide Hcl], Ejjsbya-Nwu-Tmz Reductase Inhibitors, Tequin [Gatifloxacin], Doxycycline, Sulfamethoxazole, and [...] Take 1 tablet by mouth every afternoon. isdfhdkb-hnmmjifqb-ygtfbpjrulhlth (CORTISPORIN) 3.5-10,000-1 mg/mL-unit/mL-% otic suspension Use 3 [...] tablet by mouth twice daily. lancets (ONE [employer]aCloud) 33 gauge 1 Each once daily. blood [...] by mouth. elis (more content not included)... [facility] 07-10-2023 Instructions Marva Madera, PATRICIA.VAULT PERSON - 07/10/2023 11:25 AM EST ASSESSMENT/PLAN: 1. Hypertension, unspecified type - ICD9: 401.9, ICD10: I10 - Uncontrolled - Continue current medications - Increase lisinopril to 10 mg TWICE daily instead of once daily. Follow up with PCP or meat apprentice for further concerns. - LISINOPRIL 10 MG TABLET - Follow-up with your PCP in 3-5 days if symptoms have not improved or sooner if symptoms worsen - Discussed red flags and need for immediate medical evaluation if any occur. - Discussed supportive care treatment with fluids, rest and analgesia. - Discussed expected course of illness Marva Madera APRN.VAULT PERSON documented in this encounter [facility] 07-10-2023 History of Present illness Narrative Subjective [...] syndrome. She has a PCP and a meat apprentice. She can see her PCP the first [...] Dye [Iodine], Lincomycin, Pseudoephedrine, Reglan [Metoclopramide Hcl], Yadazgp-Rnq-Itc Reductase Inhibitors, Tequin [Gatifloxacin], Doxycycline, Sulfamethoxazole, and [...] Take 1 tablet by mouth every afternoon. jbdinjzq-reubvgmjh-qynkjzukwtucfg (CORTISPORIN) 3.5-10,000-1 mg/mL-unit/mL-% otic suspension Use 3 [...] once daily. Follow up with PCP or meat apprentice for further concerns. - LISINOPRIL 10 MG TABLET - Follow-up with your PCP in 3-5 days if symptoms have not improved or sooner if symptoms worsen - Discussed red flags and need for immediate medical evaluation if any occur. - Discussed supportive care treatment with fluids, rest and analgesia. - Discussed expected course of illness Marva Madera APRN.VAULT PERSON documented in this encounter [facility] 06-29-2023 Miscellaneous Notes Pt notified that medication is a non covered medication and will need to purchase out of pocket. Yajaira Forbes LPN Electronic PA submitted for Lotrisone cream. Will await further response from pt's insurance. Yajaira Forbes LPN documented in this encounter [facility] 06-24-2023 Note HNO ID: [id number] Author: Savita Miller APRN.YULY Service: ? Author Type: Nurse Practitioner Type: Progress Notes Filed: 06/24/2023 8:59 AM Note Text: Subjective The history is provided by the patient. No first aid officer was used. HPI Ashwini Baron is a [...] have confirmed and edited as necessary, the [facility] Review of Systems Constitutional: Negative for chills [...] warranting prompt ER evaluation. Savita Miller APRN.CNP [facility] 06-24-2023 Instructions Savita Miller APRN.CNP - 06/24/2023 [...] if no improvment documented in this encounter [facility] 06-24-2023 History of Present illness Narrative Images from the original note were not included. Subjective The history is provided by the patient. No first aid officer was used. HPI Ashwini Baron is a [...] have confirmed and edited as necessary, the [facility] Review of Systems Constitutional: Negative for chills [...] Savita Miller APRN.YULY documented in this encounter [facility] 06-12-2023 Note HNO ID: [id number] Author: Anum Davis APRN.CNP Service: ? Author Type: Nurse Practitioner Type: Progress Notes Filed: 06/12/2023 8:34 AM Note Text: This note was created using [employer]. Subjective Ashwini Baron is a 72 year old female. HPI patient states last Wednesday that she had went off her allergy medicine and then started with a skin rash. For the last 3 days she started noticing a itchy red rash underneath her breast and in the groin area. She has tried hfox-qqf-jvwblmo creams that are not helping her much. [...] Medical Decision Making Level: 3 - Low [facility] 06-12-2023 History of Present illness Narrative This note was created using [employer]. Subjective Ashwini Baron is a 72 year old female. HPI patient states last Wednesday that she had went off her allergy medicine and then started with a skin rash. For the last 3 days she started noticing a itchy red rash underneath her breast and in the groin area. She has tried zzdv-vtm-bymttqs creams that are not helping her much. [...] 3 - Low documented in this encounter [facility] 05-25-2023 Miscellaneous Notes Pharmacy faxed requesting the following refill. Requested Prescriptions Pending Prescriptions Disp Refills fluticasone (FLONASE) 50 mcg/actuation nasal spray [Pharmacy Med Name: fluticasone propionate 50 mcg/actuation nasal spray,suspension] 16 g 2 Sig: Use 2 Sprays in each nostril once daily. Patient last appointment: 05/10/2023 NOV 07/21/2023 Patient Phone numbers: [phone] (home) [phone] (work) Request is for script(s) to be escript to pharmacy. Mojgan Chen LPN documented in this encounter [facility] 05-21-2023 Miscellaneous Notes Noted and agree with [...] Rothman LPN ----- Message from Marva Madera APRN.VAULT PERSON sent at 05/18/2023 2:25 PM EDT ----- Urine culture did not show any evidence of infection. Recommend follow up with PCP to ensure hematuria has resolved. Marva Madera CNP documented in this encounter [facility] 05-17-2023 Note HNO ID: [id number] Author: Marva Madera APRN.YULY Service: ? Author [...] Dye [Iodine], Lincomycin, Pseudoephedrine, Reglan [Metoclopramide Hcl], Nkzhzpe-Efy-Ubs Reductase Inhibitors, Tequin [Gatifloxacin], Doxycycline, Sulfamethoxazole, and Trimethoprim MEDICATIONS sucralfate (CARAFATE) 1 gram tabletTake 1 tablet by mouth three times daily. Take on empty stomach and avoid eating or drinking for 30 mins after taking.Disp: 90 tabletRfl: 11 hydroCHLOROthiazide 12.5 mg tabletTake by mouth.Disp: Rfl: lisinopril (ZESTRIL) 10 mg tabletTake 1 tablet by mouth every afternoon.Disp: Rfl: malifexf-bhtaljifn-hhrqpxkhxogite (CORTISPORIN) 3.5-10,000-1 mg/mL-unit/mL-% otic suspensionUse 3 Drops [...] D3 (CALCIUM 500 (more content not included)... [facility] 05-17-2023 Instructions Marva Madera APRN.VAULT PERSON - 05/17/2023 11:48 AM EDT ASSESSMENT/PLAN: 1. Urinary frequency - ICD9: 788.41, ICD10: R35.0 - UA DIP, URINE (POC)- normal in office, will send for culture, no medication prescribed today. - URINE CULTURE Marva Madera APRN.VAULT PERSON documented in this encounter [facility] 05-17-2023 History of Present illness Narrative Subjective [...] Dye [Iodine], Lincomycin, Pseudoephedrine, Reglan [Metoclopramide Hcl], Ijsjvdp-Pub-Rky Reductase Inhibitors, Tequin [Gatifloxacin], Doxycycline, Sulfamethoxazole, and Trimethoprim MEDICATIONS sucralfate (CARAFATE) 1 gram tablet^Take 1 tablet by mouth three times daily. Take on empty stomach and avoid eating or drinking for 30 mins after taking.^Disp: 90 tablet^Rfl: 11 hydroCHLOROthiazide 12.5 mg tablet^Take by mouth.^Disp: ^Rfl: lisinopril (ZESTRIL) 10 mg tablet^Take 1 tablet by mouth every afternoon.^Disp: ^Rfl: hgdbrmjv-duiajotii-bprdvpeogvpkud (CORTISPORIN) 3.5-10,000-1 mg/mL-unit/mL-% otic suspension^Use 3 Drops [...] prescribed today. - URINE CULTURE Marva Madera APRN.VAULT PERSON documented in this encounter [facility] 05-11-2023 Note HNO ID: [id number] Author: Mariama Bacon MD Service: ? Author Type: Physician Type: Progress Notes Filed: 05/11/2023 4:46 PM Note Text: This note was created using [employer]. Subjective Ashwini Baron is a 72 year old female.Patient is in office with complaint of recurrent sinus congestion. Patient was seen at Urgent Care for UTI and ear infection beginning of this month. Ear did not seem any better after antibiotics. Patient then went to [place] [facility] stated she still had an ear [...] ENT if symptoms continue. Mariama Bacon MD [facility] 05-10-2023 Note HNO ID: [id number] Author: Wilson Shipley LPN Service: ? Author Type: LICENSED NURSE Type: Progress Notes Filed: 05/11/2023 4:46 PM Note Text: Patient is in office with complaint of recurrent sinus congestion. Patient was seen at Urgent Care for UTI and ear infection beginning of this month. Ear did not seem any better after antibiotics. Patient then went to [facility] stated she still had an ear [...] Shipley LPN May 10, 2023 4:04 PM [facility] 04-20-2023 Note HNO ID: [id number] Author: Harlan Marina APRN.VAULT PERSON Service: ? Author Type: Nurse Practitioner Type: [...] Lincomycin Rash Pseudoephedrine Hives Reglan [Metoclopram* Intolerance Blabpoa-Fqs-Jrd Red* Unknown Comment:Other reaction(s): Other Tequin [Gatifloxaci* [...] 3 montelukast (SINGULAI (more content not included)... [facility] 04-20-2023 History of Present illness Narrative DEPARTMENT [...] Lincomycin Rash Pseudoephedrine Hives Reglan [Metoclopram* Intolerance Opurmpt-Mpz-Kpj Red* Unknown Comment:Other reaction(s): Other Tequin [Gatifloxaci* [...] ubidecarenone (CO Q-10 ORAL) Take by mouth. mxsdimkj-urudvpxne-ukqxcqpnfnfarp (CORTISPORIN) 3.5-10,000-1 mg/mL-unit/mL-% otic suspension Use 3 [...] 04/20/2023 9:15 AM documented in this encounter [facility] 04-16-2023 Miscellaneous Notes Patient has a lot [...] will send a different medication to [facility] in [place] for her. Please call and advise. documented in this encounter [facility] 04-14-2023 Note HNO ID: [id number] Author: Chula Crooks APRN.VAULT PERSON Service: ? Author Type: Nurse Practitioner Type: Progress Notes Filed: 04/14/2023 12:39 PM Note Text: This note was created using [employer]. Subjective Ashwini Baron is a 72 year [...] history is provided by the patient. No first aid officer was used. UTI This is a new [...] Dye [Iodine], Lincomycin, Pseudoephedrine, Reglan [Metoclopramide Hcl], Vvvldgy-Kds-Flc Reductase Inhibitors, Tequin [Gatifloxacin], Doxycycline, Sulfamethoxazole, and [...] 90 tabletRfl: 3 - lancets (ONE TOUCH DELAdvisor Client Match) 33 gauge1 Each once daily.Disp: 100 EachRfl: [...] by mouth.Disp: Rfl: (more content not included)... [facility] 04-14-2023 History of Present illness Narrative This note was created using [employer]. Subjective Ashwini Baron is a 72 year [...] history is provided by the patient. No first aid officer was used. UTI This is a new [...] Dye [Iodine], Lincomycin, Pseudoephedrine, Reglan [Metoclopramide Hcl], Rtaoxkj-Hxg-Pku Reductase Inhibitors, Tequin [Gatifloxacin], Doxycycline, Sulfamethoxazole, and [...] meals for 7 days.^Disp: 14 capsule^Rfl: 0 jedwaadb-zuqqfjntu-usnsoqcnqvjyqw (CORTISPORIN) 3.5-10,000-1 mg/mL-unit/mL-% otic suspension^Use 3 Drops [...] 380.10, ICD10: H60.93 RX Polytrim Chula Crooks APRN.VAULT PERSON documented in this encounter [facility] 04-13-2023 Miscellaneous Notes She took the 9:00 [...] appt. Advised pt she may schedule with VAULT PERSON and would send this to scheduling. Please [...] message on voicemail) documented in this encounter [facility] 04-06-2023 Miscellaneous Notes Patient called requesting the following refill. Requested Prescriptions Pending Prescriptions Disp Refills pioglitazone (ACTOS) 45 mg tablet 90 tablet 3 Sig: Take 1 tablet by mouth once daily. Patient last appointment: 02/22/2023 Patient Phone numbers: [phone] (home) [phone] (work) Request is for script(s) to be escript to [facility]. Ewa Mclain LPN documented in this encounter [facility] 04-01-2023 Miscellaneous Notes I left a message [...] Dye [Iodine], Lincomycin, Pseudoephedrine, Reglan [Metoclopramide Hcl], Zvhbdgd-Fms-Jkx Reductase Inhibitors, Tequin [Gatifloxacin], Doxycycline, Sulfamethoxazole, and Trimethoprim (home) [phone] (work) [phone] (cell) Reason for call: Rody called about Ashwini's diabetic medication. Patient had triple bypass surgery at [facility] earlier this year. During that time [...] been captured for this encounter? [facility]. Ewa Mclain LPN documented in this encounter [facility] 02-23-2023 Miscellaneous Notes DENIED, The requested medication/product is excluded from Part D prescription coverage. Unable to notify patient, phone just rang. PENDING, Hydrogel gel [place]: [id number] INDU Cover My Meds documented in this encounter [facility] 02-22-2023 Miscellaneous Notes Signed and dated surgical clearance along with patient's last office note successfully faxed today to [facility] at fax number [phone]. Fax confirmation received and all documentation to be scanned into patient's chart. Laura Lyons LPN February 22, 2023 6:03 PM documented in this encounter [facility] 02-22-2023 Note HNO ID: [id number] Author: Mariama Bacon MD Service: ? Author Type: Physician Type: Progress Notes Filed: 02/22/2023 3:30 PM Note Text: This note was created using Starfish Retention Solutionsriter. Subjective Ashwini Baron is a 72 year [...] is cleared for surgery Mariama Bacon MD [facility] 02-22-2023 Note HNO ID: [id number] Author: Wilson Shipley LPN Service: ? Author Type: LICENSED NURSE Type: Progress Notes Filed: 02/22/2023 3:30 PM Note Text: Patient is in office for surgical clearance. Patient will be having a left knee arthroscopy with partial medial menisectomy under general anesthesia at [facility]. Date is unknown at this time, for clearance had to be completed prior to scheduling. Wilson ShipleyPATRICA February 22, 2023 3:04 PM [facility] 02-10-2023 Note HNO ID: [id number] Author: Mariama Bacon MD Service: ? Author Type: Physician Type: Progress Notes Filed: 02/10/2023 10:55 AM Note Text: This note was created using [employer]. Subjective Ashwini Baron is a 72 year [...] 2 weeks for recheck. Mariama Bacon MD [facility] 02-10-2023 Note HNO ID: [id number] Author: Ewa Mclain LPN Service: ? Author [...] Mclain LPN February 10, 2023 10:13 AM [facility] 02-10-2023 History of Present illness Narrative This note was created using Soumter. 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 Change [...] 2023 10:13 AM documented in this encounter [facility] 01-28-2023 Miscellaneous Notes No PA required, plans prefers brand name. PENDING, budesonide-formoterol (SYMBICORT) 160-4.5 mcg/actuation inhaler PA Submitted via [employer] documented in this encounter [facility] 01-27-2023 Note HNO ID: [id number] Author: Mariama Bacon MD Service: ? Author Type: Physician Type: Progress Notes Filed: 01/27/2023 10:17 AM Note Text: This note was created using Soumter. Subjective Ashwini Baron is a 72 year [...] TEST) test strip Stable 2. Aortic atherosclerosis ([facility]) I70.0 Stable 3. Paroxysmal atrial fibrillation ([facility]) I48.0 Stable 4. Essential (primary) hypertension I10 5. Hypercholesterolemia E78.00 Continue present medications. Follow-up with orthopedics for knee pain. Esophageal infection improved with Diflucan. Follow-up in 6 months for wellness visit. Mariama Bacon MD [facility] 01-27-2023 Note HNO ID: [id number] Author: Wilson Shipley LPN Service: ? Author Type: LICENSED NURSE Type: Progress Notes Filed: 01/27/2023 10:17 AM Note Text: Patient is in office today for 6 month exam. Patient is experiencing discomfort in left knee. Unable to bear weight. Wilson Shipley LPN January 27, 2023 9:44 AM [facility] 01-18-2023 Miscellaneous Notes Left detailed VM for pt regarding the results of EGD with orders placed for Diflucan. Asked for return call if any additional questions. Also, pt has viewed this result on [employer]. Monica Aburto RN ----- Message from Erika Arredondo DO sent at 01/18/2023 3:49 PM EDT ----- Please review path from EGD with pt which reveals normal small bowel, normal gastric, and +brushings for esophageal jennie. Will treat with diflucan x 14 days. Repeat EGD PRN Thanks cl documented in this encounter [facility] 01-18-2023 Miscellaneous Notes Patient is coming in office on 01-27-2023 for 6 month follow up. Patient states she always has lab work drawn before visit. Patient requesting orders Wilson Shipley LPN January 18, 2023 10:29 AM documented in this encounter [facility] 01-14-2023 History and physical note HISTORY AND [...] Erika Arredondo DO documented in this encounter [facility] 01-06-2023 Note HNO ID: [id number] Author: RT Jackelyn(R) Service: Radiology Author Type: Continuous Improvement Black Belt Type: Progress Notes Filed: 01/06/2023 12:04 PM [...] RT Jackelyn(R) January 06, 2023 12:03 PM [facility] 01-06-2023 Note HNO ID: [id number] Author: Erika Arredondo, DO Service: ? Author [...] She states she tried simethicone and then Belia-[place] and she cannot stop. She feels a [...] Comments Iodinated Cont (more content not included)... [facility] 01-06-2023 History of Present illness Narrative Radiology [...] 2023 12:03 PM documented in this encounter [facility] 12-31-2022 Note HNO ID: [id number] Author: Mariama Bacon MD Service: ? Author Type: Physician Type: Progress Notes Filed: 12/31/2022 3:00 PM Note Text: This note was created using [employer]. Subjective Ashwini Baron is a 72 year [...] R14.2 CONSULT TO GASTROENTEROLOGY Mariama Bacon MD [facility] 12-30-2022 Note HNO ID: [id number] Author: Ewa Mclain LPN Service: ? Author [...] Mclain LPN December 30, 2022 3:02 PM [facility] 12-25-2022 Telephone encounter Note Returned [...] the problem continues. PATRICIA Ramirez CNP 12/25/22 [facility] 12-25-2022 Miscellaneous Notes Returned patient's call. Patient [...] Ramirez CNP 12/25/22 documented in this encounter [facility] 12-25-2022 Miscellaneous Notes Patient phoned office crying to this nurse that her stomach pain is so bad that she doesn't know what to due, she went to the ER and is unable to get into Dr. Bacon until next Wednesday. Patient stated that [facility] did nothing for her. This nurse stated that unfortunately Dr. Bacon is out of the office, and due to her pain she needs to go to the ER. This nurse also informed patient that if she was not happy with the care she received there, that there are other hospitals she can go to. Patient thanked nurse Wilson Shipley LPN December 25, 2022 10:41 AM documented in this encounter [facility] 12-10-2022 History of Present illness Narrative Images from the original note were not included. [facility]: [facility] [address] [facility] [address] Dept: [phone] Dept Loc: [phone] Visit type: Established patient Reason for Visit: Post-op and Follow-up Assessment and Plan 1. S/P CABG x 3 2. 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 -Antifungal powder prescribed for under breasts. -Refill of zofran, though nausea has improved. -Doing well with Home Health PT, discussed Cardiac Rehab in [place] when Home PT signs off. -Reviewed home [...] schedule Cardiology appointment with Dr. Rubio in [place]. Patient recovery going well, only complaint is [...] Clavulanic Acid Hives Dayquil Severe + Vapocool [Sbzwshduptlvl-Vk-Jl-Apap] Hives Dextromethorphan Hives Doxylamine Hives Iodinated Contrast [...] PATRICIA Ramirez CNP documented in this encounter [facility] 12-07-2022 Miscellaneous Notes LAST OFFICE VISIT: 09/24/2022 [...] 2022 10:20 AM documented in this encounter [facility] 12-01-2022 Note Education completed yesterday with DM educator [facility] 12-01-2022 Note Discharge Summary: C ardiothoracic Surgery Ashwini Baron, 72 y.o., 1950 ADMIT DATE: 11/26/2022 DISCHARGE DATE: 12/01/2022 DISCHARGING SURGEON: Adrianne Sethi MD, Office Number: [phone] PRIMARY CARE PHYSICIAN: MARIAMA BACON TREATMENT TEAM: Tool Procurement Coordinator: VISIT STATUS: Admission CODE STATUS: Full Code [...] Underwent CABG x3 (SMITH-LAD, SVG-OM, SVG-RPDA), E [facility]. Her postoperative course included afib, [...] Your Medications These medications were sent to [facility] [address] [place] [address] Hours: Wednesday to Wednesday 10 am to [...] MG tablet D (more content not included)... [facility] 12-01-2022 Note Cardiothoracic Surge ry/CCM Progress [...] Blood Conservation: None noted in post-operative period Tool Procurement Coordinator: [facility] 11-30-2022 Note Received referral an d reviewed chart. Phase II Cardiac Rehab Referral discussed with Ashwini Baron. Cardiac Rehab education provided and reviewed handout. Patient interested but prefers [facility] due to location. Given [facility] information. Patient will contact [facility] to schedule cardiac rehab when appropriate. [facility] 11-30-2022 Note Cardiothoracic Surge ry/CCM Progress [...] Blood Conservation: None noted in post-operative period Tool Procurement Coordinator: [facility] 11-29-2022 Note Start PACC Note Home Health Referral Educated patient and spouse on Home Care and services available. Patient offered choice of available HHC and agreeable to SN/PT services with [facility]. Care Types: [facility] Program Isolation Precautions: No [...] is noted as yes - consider a WEB PRESS OPERATOR evaluation once the patient returns home. START PATIENT REGISTRATION INFORMATION Order Information Order Signing Physician: Adrianne Sethi MD Service Ordered RN ?: Yes Service Ordered PT ?: Yes Service Ordered OT ?: No Service Ordered ST ?: No Service Ordered WEB PRESS OPERATOR?:No Service Ordered SATIN FINISHER?: No Following Physician: Adrianne Sethi MD Following Physician Overseeing Physician: (Required for Residents only) Agreeable to Follow? Yes Date/Time of Call 11/29/22 2:02 PM, Spoke with: OFFICE CLOSED Care Coordination SOC Call from [facility] Required?: No Same Day SOC?: No Primary Care Physician: MARIAMA BACON Primary Care Physician Primary Care Physician Address: [address] [place] [id number] Visit Instructions: N/A Service Discharge Location Type: Home with Home Health Care Service Facility Name: N/A Service Floor Facility: N/A Service Room No: N/A Demographics Patient Last Name: Loraine Patient First Name: Ashwini Language/Communication Barrier:NO Service Address: [address] [place] [address] Service City: [facility] ST: [place] Service [place]IP: [address] Service (home) Other phone numbers: Telephone Information: Emergency Contact: Extended Emergency Contact Information Primary Emergency Contact: Rody Baron Relation: Spouse Admission Information Admit Date: 11/26/2022 Patient status at discharge: Inpatient Admitting Diagnosis Atherosclerotic heart disease of picayune coronary artery without angina pectoris [I25.10] CAD in picayune artery [I25.10] Caregiver Information Caregiver First Name: RODY Caregiver Last Name: LORAINE Caregiver Relationship to Patient SPOUSE Caregiver Caregiver Notes: N/A [employer] [place] Mailing-Tech List No END PATIENT REGISTRATION INFORMATION Pt [...] CABG. Discharge Date: 12/01/2022 Referral Source-PACC: (Hospital/Unit): [facility] / T1-102/T1-102 A End PACC Note [facility] 11-29-2022 Note [facility] Respiratory Care Department Progress Note As part [...] Respiratory in the care of this patient, [facility] 11-28-2022 Note [facility] Respiratory Care Department Progress Note Comment or [...] Respiratory in the care of this patient, [facility] 11-27-2022 Note Nutrition Assessment Type and [...] healthy and diabetes handouts at bedside with [facility] RD phone number. Will return, as able, [...] hx) Fluid Accumulation: No significant fluid accumulation Necktie Maker Strength: Not Performed Nutrition Assessment: Pt with [...] diabetes diet handouts on bedside table, with [facility] RD phone number Estimated Daily Nutrient Needs: Energy Requirements Based On: Kcal/kg Weight Used for Energy Requirements: Edison (25-30 kcal/kg) Weight for Energy Calculation (kg): 52.3 kg Total Energy Requirements (kcals/day): 4965-8840 Weight Used for Protein Requirements: Edison (1.2-1.5 g/kg) Weight in Kg Used for [...] 11/10/22, 205# on 09/08/22, 198# on 07/30/22) Edison Body Weight (lbs) (Calculated): 115 lbs Edison Body Weight (Kg) (Calculated): 52 kg % Edison Body Weight (Calculated): 179.6 % BMI (kg/m2) [...] to determine Parris Judd RD, LD Contact: *[phone] or [facility]22 Note Central Venous Line: Date/Time: 11/26/2022 [...] site was prepped with Chlorhexidine. Size: 8 Setswana Length: 16 Catheter type: introducer Number of [...] Staffing Performed: anesthesiologist Anesthesiologist: Rainer Goyal MD [facility] 11-26-2022 Note Patient: Ashwini Baron Procedure Summary Date: 11/26/22 Room / Location: [address] Operating Room Anesthesia Start: 654 Anesthesia Stop: 1130 Procedures: CABG WITH CHERI (Chest) Echocardiography transesophageal real-time Diagnosis: Atherosclerotic heart disease of picayune coronary artery without angina pectoris (Atherosclerotic heart disease of picayune coronary artery without angina pectoris [I25.10]) Surgeons: [...] once all PACU criteria has been met. [facility] 11-26-2022 Note Patient: Ashwini Baron Procedure Summary Date: 11/26/22 Room / Location: [address] Operating Room Anesthesia Start: 654 Anesthesia Stop: 1130 Procedures: CABG WITH CHERI (Chest) Echocardiography transesophageal real-time Diagnosis: Atherosclerotic heart disease of picayune coronary artery without angina pectoris (Atherosclerotic heart disease of picayune coronary artery without angina pectoris [I25.10]) Surgeons: [...] opportunity for questions and acknowledgement of understanding. [facility] 11-26-2022 Note Patient recently see n in clinic No changes to H and P Consent obtained. Adrianne Sethi MD Cardiothoracic Surgery [facility] 11-26-2022 Note Arterial Line: Date/Time: 11/26/2022 [...] secured by Tegaderm and tape. Staffing Performed: [facility] Anesthesiologist: Rainer Goyal MD Resident/BUTADIENE CONVERTOR OPERATOR: Cody De La Paz APRN - BUTADIENE CONVERTOR OPERATOR [facility] 11-26-2022 Note Airway Date/Time: 11/26/2022 6:58 AM Urgency: scheduled Airway not difficult General Information and Staff Patient location during procedure: Procedural Anesthesiologist: Rainer Goyal MD Resident/BUTADIENE CONVERTOR OPERATOR: Cody De La Paz APRN - BUTADIENE CONVERTOR OPERATOR Performed: SRNA Indications and Patient Condition Indications [...] lips Number of attempts at approach: 1 [facility] 11-26-2022 Note PA Catheter Placemen t: [...] secured and line sutured. Procedure was uneventful. [facility] 11-26-2022 Note DATE OF PROCEDURE: PREOPERATIVE DIAGNOSIS: Coronary artery disease POSTOPERATIVE DIAGNOSIS: Coronary artery disease PROCEDURE: 1. Coronary artery bypass grafting x 3 - Left internal mammary artery to the left anterior descending - Saphenous vein graft to the obtuse marginal - Saphenous vein graft to the right posterior descending artery 2. Endoscopic vein harvest, left lower extremity SURGEON: Adrianne Sethi MD AIRPORT SKILLED MAINTENANCE SUPERVISOR: RUBIA Berrios COMPLICATIONS: None intra-op CONDITION: Stable DESCRIPTION OF PROCEDURE: The patient was prepped and draped in the appropriate manner, having undergone general endotracheal anesthetic in addition to Romney-Rubi catheter placement, arterial line, and fraga catheter [...] artery bypass: Bypasses were performed to the picayune arterial targets using the conduits listed above [...] Normal EF Adrianne Sethi MD Cardiothoracic Surgery [facility] 11-20-2022 Note Patient: Ashwini Baron Procedure Information Date/Time: 11/26/22 0700 Procedures: CABG WITH CHERI (Chest) Echocardiography transesophageal real-time Location: [facility] Operating Room Surgeons: Adrianne Sethi MD Past [...] Sinus rhythm PVCs Borderline left axis deviation [facility] 11-20-2022 Note Comprehensive PreSur gical History and Physical ? Name: Ashwnii Baron : 1950 (Age-72 y.o.) Date of Service: Pt seen/examined on 11/20/2022 Procedure Information Date/Time: 11/26/22 0700 Procedures: CABG WITH CHERI (Chest) Echocardiography transesophageal real-time Location: [address] Operating Room Surgeons: Adrianne Sethi MD Chief Complaint: Diagnosis: Atherosclerotic heart disease of picayune coronary artery without angina pectoris [I25.10] History Of Present Illness: 72 y.o. female who we are asked to see/evaluate by Dr. Sethi for pre-operative evaluation prior to . ? Case: [id number] Date/Time: 11/26/22 07 Procedures: CABG WITH CHERI (Chest) [27387 CPT(R)] Echocardiography transesophageal real-time [27490 CPT(R)] Anesthesia type: General Diagnosis: Atherosclerotic heart disease of picayune coronary artery without angina pectoris [I25.10] Pre-op diagnosis: Atherosclerotic heart disease of picayune coronary artery without angina pectoris [I25.10] Location: [address] Operating Room Surgeons: Adrianne Sethi MD [...] taking her blood pressure medications. States her meat apprentice and surgeon are aware. Patient denies hx of CHF, VT, TIA/CVA, COPD, RENE, DVT/PE. Past Medical History: [...] current facility-administered medi (more content not included)... [facility] 11-20-2022 Note Comprehensive PreSur gical History and Physical ? Name: Ashwini Baron : 1950 (Age-72 y.o.) Date of Service: Pt seen/examined on 11/20/2022 Procedure Information Date/Time: 11/26/22 0700 Procedures: CABG WITH CHERI (Chest) Echocardiography transesophageal real-time Location: [address] Operating Room Surgeons: Adrianne Sethi MD Chief Complaint: Diagnosis: Atherosclerotic heart disease of picayune coronary artery without angina pectoris [I25.10] History Of Present Illness: 72 y.o. female who we are asked to see/evaluate by Dr. Sethi for pre-operative evaluation prior to . ? Case: [id number] Date/Time: 11/26/22 07 Procedures: CABG WITH CHERI (Chest) [82485 CPT(R)] Echocardiography transesophageal real-time [61895 CPT(R)] Anesthesia type: General Diagnosis: Atherosclerotic heart disease of picayune coronary artery without angina pectoris [I25.10] Pre-op diagnosis: Atherosclerotic heart disease of picayune coronary artery without angina pectoris [I25.10] Location: [address] Operating Room Surgeons: Adrianne Sethi MD [...] taking her blood pressure medications. States her meat apprentice and surgeon are aware. Patient denies hx of CHF, VT, TIA/CVA, COPD, RENE, DVT/PE. Past Medical History: [...] current facility-administered medi (more content not included)... [facility] 11-19-2022 Telephone encounter Note Surg proc orders placed. Meds sent to [facility] in [place]. PATRICIA Ramirez CNP 11/19/22 [facility] 11-19-2022 Miscellaneous Notes Surg proc orders placed. Meds sent to [facility] in [place]. PATRICIA Ramirez CNP 11/19/22 Patient is scheduled for a CABG and CHERI on 11/26/22 @ 7 am. PAT is 11/20/22 @ [address]. Please [address] surg proc orders. Please e-scribe nasal ointment and mouth rinse. Thank you. documented in this encounter [facility] 11-18-2022 Telephone encounter Note Patient is scheduled for a CABG and CHERI on 11/26/22 @ 7 am. PAT is 11/20/22 @ [address]pm. Please [address] surg proc orders. Please e-scribe nasal ointment and mouth rinse. Thank you. [facility] 11-18-2022 History of Present illness Narrative Images from the original note were not included. [facility]ARDIOV[facility]ORAC[facility] SURGERY [address] [facility] [address] Dept: [phone] Dept Loc: [phone] Visit type: New Reason for Visit: Coronary [...] This note may have been dictated using [employer] Practice Edition 2.6 and/or [employer] Voice Recognition Feature. The document was proofread, however unrecognized voice recognition inspector and clerk errors may be present. documented in this encounter [facility] 10-23-2022 Miscellaneous Notes Last Office Visit: 09-24-2022 Next Scheduled Office Visit: 01-27-2023 Requested Prescriptions Pending Prescriptions Disp Refills albuterol (PROVENTIL) 2.5 mg /3 mL (0.083 %) nebulizer solution 30 mL 3 Sig: INHALE WITH 1 VIAL IN NEBULIZER EVERY SIX HOURS NEEDED Wilson Shipley LPN October 23, 2022 2:58 PM documented in this encounter [facility] 09-24-2022 Note HNO ID: [id number] Author: Yomaira Mcelroy APRN.VAULT PERSON Service: ? Author Type: Nurse Practitioner Type: Progress Notes Filed: 09/24/2022 11:35 AM Note Text: This note was created using Star[employer] Ret[employer]. Subjective Ashwini Baron is a 72 year [...] call the office or send communication via Live[employer] for questions or concerns regarding today's appointment or follow up. Yomaira Mcelroy APRN.[facility] 09-24-2022 History of Present illness Narrative This note was created using [employer]. Subjective Ashwini Baron is a 72 year [...] call the office or send communication via [employer] for questions or concerns regarding today's appointment or follow up. Yomaira Mcelroy APRN.YULY documented in this encounter [facility] 09-09-2022 Miscellaneous Notes Returned call from Rody, [...] 2022 6:08 PM documented in this encounter [facility] 09-05-2022 Note HNO ID: [id number] Author: Izzy Raymundo PA-C Service: ? Author Type: Physician Academic Vice President Type: Progress Notes Filed: 09/05/2022 1:53 PM Note Text: This note was created using [employer]. Subjective Ashwini Baron is a 72 year [...] 379.93, ICD10: H57.89 (more content not included)... [facility] 07-30-2022 History of Present illness Narrative This note was created using [employer]. Subjective Ashwini Baron is a 71 year [...] Mariama Bacon MD documented in this encounter [facility] 06-30-2022 Nurse Note Eugenie at [facility] is faxing A1C from 12-17-21 documented in this encounter [facility] [facility] Woodruff office called this nurse stating that patient is requesting a sleep assessment. 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 (HCC)- Primary Atherosclerotic heart disease of picayune coronary artery without angina pectoris [facility] Diagnosis 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)- Primary Type II or unspecified type diabetes mellitus without mention of complication, not stated as uncontrolled [facility] Diagnosis S/P CABG x 3- Primary Postsurgical aortocoronary bypass status 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 (HCC) [facility] Diagnosis SOB (shortness of breath) Shortness of breath [facility] Diagnosis Pressure injury of buttock, stage 3, unspecified laterality (HCC)- Primary documented in this encounter [facility] note* Diagnosis 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)- Primary Type II or unspecified type diabetes mellitus without mention of complication, not stated as uncontrolled documented in this encounter [facility] note* Diagnosis UTI symptoms- Primary Other symptoms involving urinary system Otitis externa of both ears, unspecified chronicity, unspecified type documented in this encounter [facility] note* Diagnosis Belching- Primary Flatulence, eructation, and gas pain Bloating Flatulence, eructation, and gas pain Bile reflux gastritis Other specified gastritis without mention of hemorrhage documented in this encounter [facility] note* Diagnosis Urinary frequency- Primary documented in this encounter [facility] note* Diagnosis Skin yeast infection- Primary Candidiasis of skin and nails documented in this encounter [facility] note* Diagnosis Belching symptom Flatulence, eructation, and gas pain documented in this encounter [facility] note* Diagnosis Belching symptom Flatulence, eructation, and gas pain documented in this encounter [facility] note* Diagnosis Rash- Primary Rash and other nonspecific skin eruption Tinea cruris Dermatophytosis of groin and perianal area documented in this encounter [facility] note* Diagnosis Hypertension, unspecified type- Primary documented in this encounter [facility] note* Diagnosis Hypertension, essential- Primary Unspecified essential hypertension Pure hypercholesterolemia documented in this encounter [facility] note* Diagnosis Wellness examination- Primary Encounter for screening for depression Encounter for counseling regarding advance directives Hypertension, unspecified type Essential (primary) hypertension Unspecified essential hypertension Arteriosclerosis of coronary artery Coronary atherosclerosis of unspecified type of vessel, picayune or graft Paroxysmal atrial fibrillation (HCC) Atrial fibrillation 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) Screening for deficiency anemia Screening for other and unspecified deficiency anemia Pure hypercholesterolemia documented in this encounter [facility] for referral (narrative)* Diagnostic Procedure Only (Routine) - Closed Specialty Diagnoses / Procedures Referred By Donavon t Referred To Contact XR IMAGING Diagnoses Belching symptom Procedures XR ABDOMEN 2V ROUTINE SUPINE W UPRIGHT/DECUB/CTL RADIOLOGIC EXAM ABDOMEN [place] [address] [id number] [facility] [place] [address] Referral ID Status Reason Start Date Expiration Date V isits Requested Visits Authorized [id number] Closed Auto-Generate d Referral 01/06/2023 02/05/2024 1 1 [facility] for referral (narrative)* Outpatient Procedure (Routine) - Closed Specialty Diagnoses / Procedures Referred By Contac t Referred To Contact Diagnoses Belching symptom Procedures EGD DIAGNOSTIC ESOPHAGOGASTRODUODENOSCOPY TRANS[place] [address] [place] [address] Av Procedure [address] [place] [address] Referral ID Status Reason Start Date Expiration Date V isits Requested Visits Authorized [id number] Closed Auto-Generate d Referral 01/14/2023 04/14/2023 1 1 [facility] for visit Narrative* Outpatient Procedure (Routine) - Closed Specialty Diagnoses / Procedures Referred By Contac t Referred To Contact Diagnoses Belching symptom Procedures EGD DIAGNOSTIC ESOPHAGOGASTRODUODENOSCOPY TR[place] [address] [place] [address] Av Procedure [address] [place] [address] Referral ID Status Reason Start Date Expiration Date V isits Requested Visits Authorized [id number] Closed Auto-Generate d Referral 01/14/2023 04/14/2023 1 1 [facility] Advance Directives No Advanced Directives Records FoundDocuments on File Type Date Recorded Patient Park Keeper Expl anation Advance Directive(s) 09/18/2020 7:55 AM Advance Directive(s) 04/29/2020 8:26 AM Advance Directive(s) 04/12/2020 10:04 AM Documents on File Type Date Recorded Patient Park Keeper Expl anation Advance Directive(s) 09/18/2020 7:55 AM Documents on File Type Date Recorded Patient Park Keeper Expl anation Advance Directive(s) 09/18/2020 7:55 AM Latest Code Status on File Code Status Date Activated Date Inactivated Comments Full Code 11/26/2022 5:47 AM Latest Code Status on File Code Status Date Activated Date Inactivated Comments Full Code 11/26/2022 5:47 AM 12/01/2022 4:05 PM Documents on File Type Date Recorded Patient Park Keeper Expl anation Advance Directives and Livin g Will 12/02/2022 10:05 AM Documents on File Type Date Recorded Patient Park Keeper Expl anation Advance Directives and Livin g Will 12/02/2022 10:05 AM Latest Code Status on File Code Status Date Activated Date Inactivated Comments Full Code 11/26/2022 5:47 AM 12/01/2022 4:05 PM Reason for Referral Specialty Diagnoses / Procedures Referred By Contac t Referred To Contact Mariama Bacon MD [address] [place] [address] Referral ID Status Reason Start Date Expiration Date V isits Requested Visits Authorized [id number] Pending Review 1 1 Referral ID Status Reason Start Date Expiration Date V isits Requested Visits Authorized [id number] Pending Review 1 1 Specialty Diagnoses / Procedures Referred By Contac t Referred To Contact Abraham Harris MD [address] [facility] [place] [address] Referral ID Status Reason Start Date Expiration Date Visits Re quested Visits Authorized [id number] Closed 1 1 Specialty Diagnoses / Procedures Referred By Contac t Referred To Contact Elsie Smyth, PATRICIA - VAULT PERSON [address] [facility] [place] [address] Referral ID Status Reason Start Date Expiration Date Visits Re quested Visits Authorized [id number] Closed 1 1 Summary Purpose Family History [...] or prosecute any alcohol or drug abuse patient.[facility] the event this information is protected by the Federal Confidentiality of Alcohol and Drug Abuse Patient Records regulations: The Federal rules restrict any use of the information to criminally investigate or prosecute any alcohol or drug abuse patient.[facility] the event this information is protected by the Federal Confidentiality of Alcohol and Drug Abuse Patient Records regulations: The Federal rules restrict any use of the information to criminally investigate or prosecute any alcohol or drug abuse patient.[facility] the event this information is protected by the Federal Confidentiality of Alcohol and Drug Abuse Patient Records regulations: The Federal rules restrict any use of the information to criminally investigate or prosecute any alcohol or drug abuse patient.[facility] the event this information is protected by the Federal Confidentiality of Alcohol and Drug Abuse Patient Records regulations: The Federal rules restrict any use of the information to criminally investigate or prosecute any alcohol or drug abuse patient.[facility] event this information is protected by the Federal Confidentiality of Alcohol and Drug Abuse Patient Records regulations: The Federal rules restrict any use of the information to criminally investigate or prosecute any alcohol or drug abuse patient.[facility] the event this information is protected by the Federal Confidentiality of Alcohol and Drug Abuse Patient Records regulations: The Federal rules restrict any use of the information to criminally investigate or prosecute any alcohol or drug abuse patient.[facility] the event this information is protected by the Federal Confidentiality of Alcohol and Drug Abuse Patient Records regulations: The Federal rules restrict any use of the information to criminally investigate or prosecute any alcohol or drug abuse patient.[facility] the event this information is protected by the Federal Confidentiality of Alcohol and Drug Abuse Patient Records regulations: The Federal rules restrict any use of the information to criminally investigate or prosecute any alcohol or drug abuse patient.[facility] the event this information is protected by the Federal Confidentiality of Alcohol and Drug Abuse Patient Records regulations: The Federal rules restrict any use of the information to criminally investigate or prosecute any alcohol or drug abuse patient.[facility] the event this information is protected by the Federal Confidentiality of Alcohol and Drug Abuse Patient Records regulations: The Federal rules restrict any use of the information to criminally investigate or prosecute any alcohol or drug abuse patient.[facility] the event this information is protected by the Federal Confidentiality of Alcohol and Drug Abuse Patient Records regulations: The Federal rules restrict any use of the information to criminally investigate or prosecute any alcohol or drug abuse patient.[facility] the event this information is protected by the Federal Confidentiality of Alcohol and Drug Abuse Patient Records regulations: The Federal rules restrict any use of the information to criminally investigate or prosecute any alcohol or drug abuse patient.[facility] the event this information is protected by the Federal Confidentiality of Alcohol and Drug Abuse Patient Records regulations: The Federal rules restrict any use of the information to criminally investigate or prosecute any alcohol or drug abuse patient.[facility] the event this information is protected by the Federal Confidentiality of Alcohol and Drug Abuse Patient Records regulations: The Federal rules restrict any use of the information to criminally investigate or prosecute any alcohol or drug abuse patient.[facility] the event this information is protected by the Federal Confidentiality of Alcohol and Drug Abuse Patient Records regulations: The Federal rules restrict any use of the information to criminally investigate or prosecute any alcohol or drug abuse patient.[facility] the event this information is protected by the Federal Confidentiality of Alcohol and Drug Abuse Patient Records regulations: The Federal rules restrict any use of the information to criminally investigate or prosecute any alcohol or drug abuse patient.[facility] the event this information is protected by the Federal Confidentiality of Alcohol and Drug Abuse Patient Records regulations: The Federal rules restrict any use of the information to criminally investigate or prosecute any alcohol or drug abuse patient.[facility] the event this information is protected by the Federal Confidentiality of Alcohol and Drug Abuse Patient Records regulations: The Federal rules restrict any use of the information to criminally investigate or prosecute any alcohol or drug abuse patient.[facility] the event this information is protected by the Federal Confidentiality of Alcohol and Drug Abuse Patient Records regulations: The Federal rules restrict any use of the information to criminally investigate or prosecute any alcohol or drug abuse patient.[facility] the event this information is protected by the Federal Confidentiality of Alcohol and Drug Abuse Patient Records regulations: The Federal rules restrict any use of the information to criminally investigate or prosecute any alcohol or drug abuse patient.[facility] the event this information is protected by the Federal Confidentiality of Alcohol and Drug Abuse Patient Records regulations: The Federal rules restrict any use of the information to criminally investigate or prosecute any alcohol or drug abuse patient.[facility] the event this information is protected by [...] or prosecute any alcohol or drug abuse patient.[facility] the event this information is protected by the Federal Confidentiality of Alcohol and Drug Abuse Patient Records regulations: The Federal rules restrict any use of the information to criminally investigate or prosecute any alcohol or drug abuse patient.[facility] the event this information is protected by the Federal Confidentiality of Alcohol and Drug Abuse Patient Records regulations: The Federal rules restrict any use of the information to criminally investigate or prosecute any alcohol or drug abuse patient.[facility] the event this information is protected by the Federal Confidentiality of Alcohol and Drug Abuse Patient Records regulations: The Federal rules restrict any use of the information to criminally investigate or prosecute any alcohol or drug abuse patient.[facility] the event this information is protected by the Federal Confidentiality of Alcohol and Drug Abuse Patient Records regulations: The Federal rules restrict any use of the information to criminally investigate or prosecute any alcohol or drug abuse patient.[facility] the event this information is protected by the Federal Confidentiality of Alcohol and Drug Abuse Patient Records regulations: The Federal rules restrict any use of the information to criminally investigate or prosecute any alcohol or drug abuse patient.[facility] the event this information is protected by the Federal Confidentiality of Alcohol and Drug Abuse Patient Records regulations: The Federal rules restrict any use of the information to criminally investigate or prosecute any alcohol or drug abuse patient.[facility] the event this information is protected by the Federal Confidentiality of Alcohol and Drug Abuse Patient Records regulations: The Federal rules restrict any use of the information to criminally investigate or prosecute any alcohol or drug abuse patient.[facility] the event this information is protected by the Federal Confidentiality of Alcohol and Drug Abuse Patient Records regulations: The Federal rules restrict any use of the information to criminally investigate or prosecute any alcohol or drug abuse patient.[facility] the event this information is protected by the Federal Confidentiality of Alcohol and Drug Abuse Patient Records regulations: The Federal rules restrict any use of the information to criminally investigate or prosecute any alcohol or drug abuse patient.[facility] the event this information is protected by the Federal Confidentiality of Alcohol and Drug Abuse Patient Records regulations: The Federal rules restrict any use of the information to criminally investigate or prosecute any alcohol or drug abuse patient.[facility] the event this information is protected by the Federal Confidentiality of Alcohol and Drug Abuse Patient Records regulations: The Federal rules restrict any use of the information to criminally investigate or prosecute any alcohol or drug abuse patient.[facility] the event this information is protected by the Federal Confidentiality of Alcohol and Drug Abuse Patient Records regulations: The Federal rules restrict any use of the information to criminally investigate or prosecute any alcohol or drug abuse patient.[facility] the event this information is protected by the Federal Confidentiality of Alcohol and Drug Abuse Patient Records regulations: The Federal rules restrict any use of the information to criminally investigate or prosecute any alcohol or drug abuse patient.[facility] the event this information is protected by the Federal Confidentiality of Alcohol and Drug Abuse Patient Records regulations: The Federal rules restrict any use of the information to criminally investigate or prosecute any alcohol or drug abuse patient.[facility] the event this information is protected by the Federal Confidentiality of Alcohol and Drug Abuse Patient Records regulations: The Federal rules restrict any use of the information to criminally investigate or prosecute any alcohol or drug abuse patient.[facility] Reason for Visit (unrecogniz ed section and [...] To Contact Diagnoses 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] Procedures OK CABG W/ARTERIAL GRAFT SINGLE ARTERIAL GRAFT OK ECHO TRANSESOPHAG R-T 2D W/PRB IMG ACQUISJ I&R CABG WITH CHERI Echocardiography transesophageal real-time Adrianne Sethi MD [address] [place] [address] [address] [place] [address] [address] [place] [address] Referral ID Status Reason Start Date Expiration Date Visits Re quested Visits Authorized [id number] 1 1 Reason Onset Date Comments Refill [...] EXAM ABDOMEN 2 VIEWS Ly, [place] [address] [place] [address] [place] [id number] Referral ID Status Reason Start Date Expiration Date V isits Requested Visits Authorized [id number] Closed Auto-Generate d Referral 01/06/2023 02/05/2024 1 1 Reason Comments Rash On shoulders back an d sides, x 1.5 wks rash underbreasts Reason Comments Insurance Authorization Reason Comments Blood Pressure Elevated readings al l week Reason Comments Follow Up Reason Comments Medicare Wellness Exam Care Teams (unrecognized sec tion and content) Door Manager Relationship Specialty Start Date End Date Mariama Bacon MD [address] [place] [address] PCP - General Family Medicine 04/27/18 Guero Diaz E [facility] [address] [place] [address] Gastroenterology 03/12/20 Door Manager Relationship Specialty Start Date End Date Mariama Bacon MD [address] [place] [address] PCP - General Family Medicine 04/27/18 Guero Diaz [facility] [address] [place] [address] Gastroenterology 03/12/20 Door Manager Relationship Specialty Start Date End Date Mariama Bacon MD [address] [place] [address] PCP - General Family Medicine 04/27/18 Guero Diaz E [facility] [address] [place] [address] Gastroenterology 03/12/20 Door Manager Relationship Specialty Start Date End Date Mariama Bacon MD [address] [place] [address] PCP - General Family Medicine 04/27/18 [address]ero Diaz [address] [place] [address] Gastroenterology 03/12/20 Door Manager Relationship Specialty Start Date End Date Mariama Bacon MD [address] [place] [address] PCP - General Family Medicine 04/27/18 Guero Diaz [address] [place] [address] Gastroenterology 03/12/20 Door Manager Relationship Specialty Start Date End Date Mariama Bacon MD [address] [place] [address] PCP - General Family Medicine 04/27/18 Guero Diaz [address] [place] [address] Gastroenterology 03/12/20 Door Manager Relationship Specialty Start Date End Date Mariama Bacon MD [address] [place] [address] PCP - General Family Medicine 04/27/18 [address] [place] [address] Gastroenterology 03/12/20 Door Manager Relationship Specialty Start Date End Date Mariama Bacon MD [address] [place] [address] PCP - General Family Medicine 04/27/18 [address] [place] [address] Gastroenterology 03/12/20 Door Manager Relationship Specialty Start Date End Date Mariama Bacon [address] [place] [place] [address] PCP - General 10/26/19 Door Manager Relationship Specialty Start Date End Date Mariama Bacon [address] [facility] [place] [address] PCP - General 10/26/19 Door Manager Relationship Specialty Start Date End Date Mariama Bacon [address] [facility] [place] [address] PCP - General 10/26/19 Door Manager Relationship Specialty Start Date End Date Mariama Bacon [address] [facility] [place] [address] PCP - General 10/26/19 Door Manager Relationship Specialty Start Date End Date Mariama Bacon [address] [facility] [place] [address] PCP - General 10/26/19 Door Manager Relationship Specialty Start Date End Date Mariama Bacon [address] [facility] [place] [address] PCP - General 10/26/19 Door Manager Relationship Specialty Start Date End Date JordiMariama MD [address] [place] [address] PCP - General Family Medicine 04/27/[address] [place] [address] Gastroenterology 03/12/20 Door Manager Relationship Specialty Start Date End Date Mariama Bacon [address] [place] [address] PCP - General 10/26/19 Door Manager Relationship Specialty Start Date End Date Mariama Bacon MD [address] [place] [address] PCP - General Family Medicine 04/27/18 Guero Diaz [address] [place] [address] Gastroenterology 03/12/20 Door Manager Relationship Specialty Start Date End Date JordiMariama Keerthi [address] [facility] [place] [address] PCP - General 10/26/19 Door Manager Relationship Specialty Start Date End Date Mariama Bacon MD [address] [place] [address] PCP - General Family Medicine 04/27/18 Guero Diaz E [address] [facility] [address] [place] [address] Gastroenterology 03/12/20 Door Manager Relationship Specialty Start Date End Date Mariama Bacon [address] [facility] [place] [address] PCP - General 10/26/19 Door Manager Relationship Specialty Start Date End Date Mariama Bacon MD [address] [place] [address] PCP - General Family Medicine 04/27/18 Guero Diaz E [address] [place] [address] Gastroenterology 03/12/20 Door Manager Relationship Specialty Start Date End Date Mariama Bacon MD [address] [place] [address] PCP - General Family Medicine 04/27/18 Guero Diaz [address] [place] [address] Gastroenterology 03/12/20 Door Manager Relationship Specialty Start Date End Date Mariama Bacon MD [address] [place] [address] PCP - General Family Medicine 04/27/18 Guero Diaz [address] [place] [address] Gastroenterology 03/12/20 Door Manager Relationship Specialty Start Date End Date Mariama Bacon MD [address] [place] [address] PCP - General Family Medicine 04/27/18 Guero Diaz [address] [place] [address] Gastroenterology 03/12/20 Door Manager Relationship Specialty Start Date End Date Mariama Bacon MD [address] [place] [address] PCP - General Family Medicine 04/27/18 Guero Diaz [address] [place] [address] Gastroenterology 03/12/20 Door Manager Relationship Specialty Start Date End Date Mariama Bacon MD [address] [place] [address] PCP - General Family Medicine 04/27/18 Guero Diaz [address] [place] [address] Gastroenterology 03/12/20 Door Manager Relationship Specialty Start Date End Date Mariama Bacon MD [address] [place] [address] PCP - General Family Medicine 04/27/18 Guero Diaz [address] [place] [address] Gastroenterology 03/12/20 Door Manager Relationship Specialty Start Date End Date Mariama Bacon MD [address] [place] [address] PCP - General Family Medicine 04/27/18 Guero Diaz [address] [facility] [address] [place] [address] Gastroenterology 03/12/20 Door Manager Relationship Specialty Start Date End Date Mariama Bacon MD [address] [place] [address] PCP - General Family Medicine 04/27/18 Guero Diaz [address] [facility] [address] [place] [address] Gastroenterology 03/12/20 Door Manager Relationship Specialty Start Date End Date Mariama Bacon MD [address] [place] [address] PCP - General Family Medicine 04/27/18 Guero Diaz [address] [facility] [address] [place] [address] Gastroenterology 03/12/20 Door Manager Relationship Specialty Start Date End Date Mariama Bacon MD [address] [place] [address] PCP - General Family Medicine 04/27/18 Guero Diaz [address] [place] [address] Gastroenterology 03/12/20 Door Manager Relationship Specialty Start Date End Date Mariama Bacon MD [address] [place] [address] PCP - General Family Medicine 04/27/18 Guero Diaz [address] [employer] [address] [place] [address] Gastroenterology 03/12/20 Door Manager Relationship Specialty Start Date End Date Mariama Bacon MD [address] [place] [address] PCP - General Family Medicine 04/27/18 Guero Diaz [address] [facility] [address] [place] [address] Gastroenterology 03/12/20 Door Manager Relationship Specialty Start Date End Date Mariama Bacon MD [address] [place] [address] PCP - General Family Medicine 04/27/18 Guero Diaz [address] [place] [address] Gastroenterology 03/12/20 Door Manager Relationship Specialty Start Date End Date Mariama Bacon MD [address] [place] [address] PCP - General Family Medicine 04/27/18 Guero Diaz MD [address] [place] [address] Gastroenterology 03/12/20 Door Manager Relationship Specialty Start Date End Date Mariama Bacon MD [address] [place] [address] PCP - General Family Medicine 04/27/18 Guero Diaz MD [address] [facility] [address] [place] [address] Gastroenterology 03/12/20 Door Manager Relationship Specialty Start Date End Date Mariama Bacon MD [address] [place] [address] PCP - General Family Medicine 04/27/18 Guero Diaz MD [address] [facility] [address] [place] [address] Gastroenterology 03/12/20 Door Manager Relationship Specialty Start Date End Date Mariama Bacon MD [address] [place], [place] [id number] PCP - General Family Medicine 04/27/18 Guero Diaz MD [address] [place] [address] Gastroenterology 03/12/20 Door Manager Relationship Specialty Start Date End Date Mariama Bacon MD [address] [place] [address] PCP - General Family Medicine 04/27/18 Guero Diaz MD [address] [place] [address] Gastroenterology 03/12/20 Door Manager Relationship Specialty Start Date End Date Mariama Bacon MD [address] [place] [address] PCP - General Family Medicine 04/27/18 Guero Diaz MD [address] [facility] [address] [place] [address] Gastroenterology 03/12/20 Door Manager Relationship Specialty Start Date End Date Mariama Bacon MD [address] [place] [address] PCP - General Family Medicine 04/27/18 Guero Diaz MD [address] [facility] [address] [place] [address] Gastroenterology 03/12/20 Door Manager Relationship Specialty Start Date End Date Mariama Bacon MD [address] [place], [place] [address] PCP - General Family Medicine 04/27/18 Guero Diaz MD [address] [place] [address] Gastroenterology 03/12/20 Door Manager Relationship Specialty Start Date End Date Mariama Bacon MD [address] [place] [address] PCP - General Family Medicine 04/27/18 Guero Diaz MD [address] [place] [address] Gastroenterology 03/12/20 Door Manager Relationship Specialty Start Date End Date Mariama Bacon MD [address] [place] [address] PCP - General Family Medicine 04/27/18 Guero Diaz MD [address] [facility] [address] [place] [address] Gastroenterology 03/12/20 Door Manager Relationship Specialty Start Date End Date Mariama Bacon MD [address] [place] [address] PCP - General Family Medicine 04/27/18 Guero Diaz MD [address] [facility] [address] [place] [address] Gastroenterology 03/12/20 Door Manager Relationship Specialty Start Date End Date Mariama Bacon MD [address] [place], [place] [address] PCP - General Family Medicine 04/27/18 Guero Diaz MD [address] [place] [address] Gastroenterology 03/12/20 INFORMATION SOURCE (unrecogn ized section and content) DATE CREATED AUTHOR AUTHOR'S ORGANIZ ATION 01/25/2023 [facility] DATE CREATED AUTHOR AUTHOR'S ORGANIZ ATION 08/30/2023 [facility] DATE CREATED AUTHOR AUTHOR'S ORGANIZ ATION 09/02/2023 [facility] nter FOR RECORDS PERTAINING TO PATIENTS WHO [...] BE BASED ON THE PRIMARY CLINICAL RECORDS. [employer] [facility]. provides no warranty or guarantee of the accuracy or completeness of information in this document.
== END | disposition home or self-care (01) ==
LOC: LAB 11:53
PROVIDERS: PCP Family Medicine; Referring Provider Physician Assistant; Visit Provider Physician Assistant
DX: R09.89 Other specified symptoms and signs involving the circulatory and respiratory systems (principal); I48.91 Unspecified atrial fibrillation; E11.9 Type 2 diabetes mellitus without complications; I97.89 Other postprocedural complications and disorders of the circulatory system, not elsewhere classified; I10 Essential (primary) hypertension
CPT/HCPCS: 36415; 82565

== ENCOUNTER → 2023-11-12 | Outpatient (CLI) | payer MEDICARE, SELFPAY ==
--- NOTE | 2023-11-12 07:45 | CT_ITS ---
STUDY: CTA HEAD AND NECK WITH CONTRAST REASON FOR EXAM: Female, 73 years old. Left ICA stenosis and gt;70%, operative planning RADIATION DOSAGE (If Supplied By Facility): CTDIvol = ( 28.32 ) mGy, DLP = ( 1457.41 ) mGycm TECHNIQUE: CT angiography was performed with a multi-detector CT scanner. Data acquisition was obtained from the skull base through the vertex following intravenous administration of 100mL Isovue 370. MIP images were reconstructed from the axial data set. Post-processing of the angiographic images was performed, with multiplanar reformation and 3D reconstruction. Individualized dose optimization techniques were used for this CT. COMPARISON: No relevant priors. FINDINGS: Normal bilateral petrous carotid arteries. Normal right cavernous carotid artery with a normal supraclinoid bifurcation. Normal left cavernous carotid artery with a normal supraclinoid bifurcation. Normal right A1 segments of the anterior cerebral artery. Normal left A1 segments of the anterior cerebral artery. Normal intact anterior communicating artery (ACOM). Normal bilateral A2 segments of the anterior cerebral arteries. Normal right M1 and M2 segments of the middle cerebral arteries, with a normal M1 bifurcation. Normal left M1 and M2 segments of the middle cerebral arteries, with a normal M1 bifurcation. Normal right posterior communicating artery (PCOM). Normal left posterior communicating artery (PCOM). Normal bilateral vertebral arteries. Normal basilar artery with a normal basilar bifurcation. The visualized bilateral superior cerebellar (SCA) arteries are normal. Normal bilateral P1, P2 and visualized P3 segments of the posterior cerebral arteries. There is no demonstrated aneurysm of the [place] of [place]. 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 Mild degree of cerebral atrophy. AORTIC ARCH: There is atherosclerotic calcific plaque formation of the aortic arch and great vessels arising from the aortic arch, without a hemodynamically significant stenosis. There is a normal origin of the brachiocephalic, left common carotid, and left subclavian arteries. Prior CABG. Atherosclerotic plaque formation at the origin of the right brachiocephalic artery as well as the left subclavian and left common carotid artery. RIGHT CAROTID ARTERIES: Normal right common carotid artery (CCA). Normal right common carotid bulb. There is extensive atherosclerotic plaque formation of the origin of the right internal carotid artery with an estimated stenosis of greater than 70%. Atherosclerotic plaque formation in the cervical portion of the right internal carotid artery. Normal origin of the right external carotid artery (ECA). LEFT CAROTID ARTERIES: Normal left common carotid artery (CCA). Normal left common carotid bulb. There is severe atherosclerotic plaque formation of the origin of the left internal carotid artery with a near complete occlusion. Mild atherosclerotic plaque formation in the cervical portion of the left internal carotid artery. Normal origin of the left external carotid artery (ECA). VERTEBRAL ARTERIES: There is enhancement within the bilateral vertebral arteries with a small right vertebral artery, and a dominant left vertebral artery. CT/CTA Head AND Neck W/ Contrast IMPRESSION: Calcific plaque at the origin of the left internal carotid artery causing a high grade stenosis greater than 90%. Greater than 70% stenosis at the origin of the right internal carotid artery. Electronically Signed: Geoffrey Al MD at 9:20 EDT ,
== END | disposition home or self-care (01) ==
LOC: CT 07:44
PROVIDERS: PCP Family Medicine; Referring Provider Physician Assistant; Visit Provider Physician Assistant
DX: I77.9 Disorder of arteries and arterioles, unspecified (principal)
CPT/HCPCS: 70496; 70498; Q9967

== ENCOUNTER 2024-01-25 05:22 | Inpatient (IN) | payer MEDICARE, SELFPAY ==
--- NOTE | 2024-01-13 10:05 | EKG12_ITS ---
Test Reason : PREOP Blood Pressure : / mmHG Vent. Rate : 087 BPM Atrial Rate : 087 BPM P-R Int : 148 ms QRS Dur : 088 ms QT Int : 388 ms P-R-T Axes : 019 -17 092 degrees QTc Int : 466 ms Normal sinus rhythm NSST T WAVE CHANGES POSSIBLY LVH ABNORMAL Confirmed by Isai Fairbanks ([id number]), mapping editor SHAILESH MUNOZ ([id number]) on 01/17/2024 6:57:12 AM Referred By: Abraham Gilbert Confirmed By:Isai Fairbanks
[2024-01-13 10:27] LABS: Hematocrit 34.9 % (37-47); Hemoglobin 10.5 g/dL (12.0-15.0); Mean Corp Hgb Conc 30.1 g/dL (32-36); Mean Corpuscular Hgb 24.2 pg (27.0-32.0); Mean Corpuscular Volume 80.6 fL (81-99); Mean Platelet Vol. 9.4 fl (6.2-12.0); Platelet Count 361 K/mm3 (150-450); RBC Distribution Width CV 15.7 % (11.6-14.6); RBC Distribution Width SD 45.2 fl (35.1-43.9); Red Blood Count 4.33 M/mm3 (4.2-5.4); White Blood Count 8.9 K/mm3 (4.4-11.0)
[2024-01-13 11:09] LABS: Anion Gap 9 (5-15); BUN 19 mg/dL (7-18); Calcium,Total 9.2 mg/dL (8.5-10.1); Chloride 103 mmol/L (98-107); Creatinine, Serum 0.83 mg/dL (0.55-1.02); EST Glomerular Filtration Rate 72 mL/min (>60); Est Glom Filt Rate - Afr Amer 87 mL/min (>60); Glucose 118 mg/dL (74-106); Potassium 3.8 mmol/L (3.5-5.1); Sodium Level 137 mmol/L (136-145)
[2024-01-13 11:10] LABS: Hemoglobin A1c 6.6 % (3.8-5.6)
[2024-01-25] VITALS (48 sets, daily range): BP systolic 76–150; BP diastolic 28–89; PULSE 60–83; RESP 16–32; TEMP 36.1–37.1; O2SAT 91–100; BMI 34.7
[2024-01-25] MEDS: Lactated Ringers 1,000 ML 15 ML IV ×2 (06:35→12:01)
[2024-01-25] MEDS: Vancomycin IV 1,000 MG/200 ML BAG 200 MG IV (06:36)
--- NOTE | 2024-01-25 07:51 | HP.PCM_ITS ---
HPI - General General Date of Admission: 01/25/24 HPI Narrative JANESSA TORREZ, is a 73 F who presents with carotid stenosis that has been followed with serial imaging for several years. recently has reached threshold for treatment and has appropriate anatomy for TCAR. [facility] Medical History (Updated 01/25/24 @ 07:[address] Abraham Gilbert MD) Preop testing Wears glasses Anxiety Rash Restless legs History of hiatal hernia Heartburn Gastric reflux History of IBS Non-smoker History of edema History of echocardiogram Cardiology follow-up encounter Left carotid bruit Pressure ulcer of left buttock, stage 2 Pressure ulcer of right buttock, stage 2 Postoperative atrial fibrillation H/o difficulty anesthesia Stomach inflammation Hiatal hernia Mass of both breasts on mammogram Carotid stenosis High triglycerides Hyperlipidemia Hypertension Gastrointestinal problem Diabetes Asthma Arthritis Home Medications ?Medication ?Instructions ?Recorded ?Last Taken ?Type budesonide-formoterol HFA 160 2 puff inhalation BID PRN Asthma 05/21/16 05/21/16 History mcg-4.5 mcg/actuation aerosol inhaler montelukast 10 mg tablet 10 mg PO DAILY ASTHMA 05/21/16 01/24/24 22:00 History cetirizine 10 mg capsule (Zyrtec) 10 mg PO DAILY PRN allergy symptoms 05/18/18 01/24/24 08:00 History 5 mg Al hyd-Mg tr-alg ac-sod bicarb 80 1 tab PO DAILY PRN GAS 05/22/19 01/22/24 History mg-14.2 mg chewable tablet (Gaviscon) metformin 1,000 mg 24 hr 1,000 mg PO BID DIABETES 05/22/19 01/24/24 20:00 History tablet,extended release (gastric reten.) albuterol sulfate 90 mcg/actuation 2 puff inhalation Q6H PRN 11/04/22 01/22/24 History aerosol inhaler Shortness Of Breath Or Wheezing aspirin 81 mg tablet,delayed 81 mg PO DAILY HEART HEALTH 12/21/22 01/25/24 04:45 History release (Adult Low Dose Aspirin) metoprolol tartrate 25 mg tablet 25 mg PO BID HTN 12/21/22 01/24/24 22:00 History tramadol 50 mg tablet 50 mg PO 4X/DAY PRN Pain 01/04/23 01/25/24 04:45 History glimepiride 4 mg tablet (Amaryl) 4 mg PO DAILY DIABETES 03/11/23 01/24/24 08:00 History amlodipine 5 mg tablet (Norvasc) 5 mg PO DAILY HTN 09/17/23 01/24/24 20:00 History nystatin 100,000 unit/gram topical 1 applic topical TID YEAST 09/17/23 Unknown Rx powder (Nystop) INFECTION #45 ea rosuvastatin 10 mg tablet (Crestor) 10 mg PO DAILY HLD 09/17/23 01/24/24 20:00 History omeprazole 40 mg capsule,delayed 40 mg PO BID GERD 10/12/23 01/24/24 20:00 History release ticagrelor 90 mg tablet (Brilinta) 90 mg PO BID HEART HEALTH #60 tabs 11/18/23 01/25/24 04:45 Rx pioglitazone 45 mg tablet (Actos) 45 mg PO DAILY DIABETES 01/11/24 01/24/24 08:00 History lisinopril 20 1 tab PO DAILY htn 01/25/24 01/25/24 04:45 History mg-hydrochlorothiazide 12.5 mg tablet Allergy/AdvReac Type Severity Reaction Status Date / Time doxycycline Allergy Mild unknown Verified 01/25/24 06:06 sulfamethoxazole (From Allergy Mild unknown Verified 01/25/24 06:06 Bactrim) trimethoprim (From Bactrim) Allergy Mild unknown Verified 01/25/24 06:06 amoxicillin (From Augmentin) Allergy Hives Verified 01/25/24 06:06 cefprozil (From Cefzil) Allergy Hives Verified 01/25/24 06:06 clavulanic acid (From Allergy Hives Verified 01/25/24 06:06 Augmentin) dextromethorphan (From Allergy Hives Verified 01/25/24 06:06 NyQuil) doxylamine (From NyQuil) Allergy Hives Verified 01/25/24 06:06 erythromycin base Allergy Hives Verified 01/25/24 06:06 gatifloxacin (From Tequin) Allergy Hives Verified 01/25/24 06:06 lincomycin Allergy Hives Verified 01/25/24 06:06 metoclopramide (From Reglan) Allergy Other Verified 01/25/24 06:06 pseudoephedrine (From NyQuil) Allergy Hives Verified 01/25/24 06:06 morphine AdvReac Intermediate tachycardia Verified 01/25/24 06:06 Family History Father No problems noted. Mother CVA (cerebral vascular accident) Heart disease Sister Colon cancer Diabetes Brother Thyroid disorder Thyroid cancer Sister Cancer vaginal Diabetes Brother Diabetes Surgical History (Updated 01/11/24 @ 08:52 by Marcela Gurrola) History of colonoscopy History of esophagogastroduodenoscopy (EGD) History of cardiac catheterization H/O removal of cyst History of lumpectomy History of cataract surgery H/O knee surgery History of coronary artery bypass graft x 3 (~11/26/22) fallopian tube surgery Hx of cholecystectomy H/O oophorectomy H/O tubal ligation History of ear surgery Social History household members: spouse housing: house Smoking Status: Never smoker alcohol intake: never substance use type: does not use caffeine: Yes what type of physical activity do you participate in: walking frequency: 3-4 times per week seatbelt use: always do you feel safe at home: Yes additional social history: [employer] Patient and both retired ROS Constitutional Constitutional: Denies chills, fever(s), frequent falls, lethargy or weakness Eyes Eyes: Denies blind spots, change in vision or loss of vision ENT HEENT: Denies bleeding gums, hoarseness or sore throat Cardiovascular Cardiovascular: Denies abdominal pain, bluish discoloration of hand/feet, chest pain with activity, claudication, cold extremities, cyanosis, dyspnea on exertion, erythema on extremities, irregular heart rhythm, leg edema, leg ulcers, numbness in extremities or weakness in extremities Respiratory/Chest Respiratory/Chest: Denies cough, excessive phlegm production, shortness of breath at rest, shortness of breath with exertion or wheezing Gastrointestinal Gastrointestinal: Denies anorexia, change in stool character, constipation, diarrhea, melena or rectal bleeding Genitourinary Genitourinary: Denies dysuria or hematuria Musculoskeletal Musculoskeletal: Denies abnormal gait Integumentary Integumentary: Reports other Details: ; Denies erythema, non-healing lesions or wounds Neurologic Neurologic: Denies abnormal speech, focal weakness, headache(s), loss of vision, numbness, paresthesias or sensory deficit Hematologic/Lymphatic Hematologic/Lymphatic: Denies easy bleeding, easy bruising or lymphadenopathy Vital Signs Vital Signs Vital Signs: 01/25/24 06:15 01/25/24 06:18 Temperature 97.6 F L Temperature Source Temporal Pulse Rate 75 Respiratory Rate 18 Respiratory Pattern Normal Blood Pressure 140/66 H Blood Pressure Mean 90 Blood Pressure Source Monitor Blood Pressure Position Semi-Fowlers Blood Pressure Location Left Arm Pulse Ox 97 Oxygen Delivery Method Room Air Weight Weight: 196 lb 3.2 oz Body Mass Index (BMI) 34.7 Physical Exam Const alert, oriented x3, no apparent distress and healthy appearing General Appearance: cooperative; Negative for combative or lethargic Orientation / Consciousness: awake Exam Limitations: no limitations HEENT Head and Scalp: normocephalic and atraumatic Eyes EOMs intact bilaterally General Eye: normal appearance of both eyes Neck full ROM, no lymphadenopathy and thyroid normal General: trachea midline; Negative for tenderness Thyroid: thyroid normal Resp normal respiratory effort and no use of accessory muscles Effort and Inspection: Negative for labored, stridor or audible wheezes Cardio regular rate, regular rhythm and no murmurs Back/Spine Cervical Spine: cervical ROM normal Extremity full ROM, normal capillary refill and no clubbing, cyanosis or edema Skin no rashes or lesions noted and no wounds Neuro oriented x3, CN's II-XII intact bilaterally, no focal motor deficits and no sensory deficits noted Psych thought process normal, cooperative, affect normal, speech normal and activity/motor behavior normal Results Lab / Micro Data 01/13/24 09:57 01/13/24 09:57 Assessment & Plan Assessment/Plan (1) Carotid stenosis, left: PLAN: -left TCAR
[2024-01-25 07:59] LABS: Bedside Glucose 155 mg/dL (74-106)
--- NOTE | 2024-01-25 10:47 | OP.PCM_ITS ---
Report of Operation Date of Procedure: 01/25/24 Pre-Operative Diagnosis: left carotid stenosis Post-Operative Diagnosis: same Surgery/Procedure Performed:: left TCAR Surgeon: Abraham Gilbert Type of Anesthesia: General Estimated Blood Loss (mL): 15 Description of Procedure: HPI: Patient is a 73-year-old female with left carotid artery stenosis which has been followed with serial surveillance imaging. The degree of stenosis has gradually become more severe and she now has greater than 70% stenosis by duplex with CTA revealing over 80% stenosis. She has a lesion that is appropriate for either endarterectomy or stenting and the patient has discussed and considered her options and wishes to proceed with transcarotid artery stenting. Description of procedure: Upon obtaining informed consent and verification correct patient procedure site patient was taken to the [facility] where she was placed under general anesthesia. She was then positioned prepped and draped in usual sterile fashion a time was performed. Transverse incision was made 1 fingerbreadth superior to the clavicle and Bovie electrocautery was dissect down through subcutaneous tissue to the platysma. The platysma was then divided self-retaining retractors put in position. Bovie dissection was then carried down to the lateral edge of the sternocleidomastoid which was mobilized and retracted medially exposing the carotid sheath. Sharp dissection was then used to dissect free the jugular vein and retracted laterally exposing the common carotid artery. Care was taken to identify and protect the vagus nerve. Sharp dissection was then used to dissect free the proximal common carotid artery which was soft and free of any significant plaque. A right angle was then used to place a vessel loop proximally around the proximal common carotid artery. A 5-0 Prolene pursestring suture was then placed at the intended access site and the patient was heparinized and allowed to circulate for 3 minutes. ACT was obtained to confirm adequate anticoagulation with further heparin dosing based on results. Next under ultrasound guidance the right common femoral vein was accessed with a micropuncture needle and wire. This then changed out for micropuncture sheath through which a [employer] wire advanced and the micropuncture sheath exchanged for the silk Road venous return sheath. Next the silk Road specific micropuncture needle and wire were used to access the common carotid artery antegrade fashion and the needle was then exchanged for the micropuncture sheath. Through the micropuncture sheath hand-injection carotid angiogram was performed revealing satisfactory positioning with no extravasation or dissection. This also confirmed the location of the lesion and help determine the level location of the bifurcation. Next the J-wire was advanced stopping inferior to the proximal edge of the plaque in the distal common carotid artery. The micropuncture sheath was then exchanged for the silk [address] 8 Algerian arterial access sheath was advanced in the position and secured with silk sutures. Multiple oblique views were obtained to confirm satisfactory sheath positioning and give the most optimal view of the carotid bifurcation anatomy. Next the flow reversal system was attached and confirmed to have adequate flow. Next the common carotid artery was occluded with a vessel loop and continued flow reversal confirmed. Using the 014 wire we navigated across the internal carotid artery lesion advancing the wire into the distal internal carotid artery beyond the plaque. A [address] 4.5 x 25 angioplasty balloon was then advanced in position centered on the lesion and then inflated to nominal and then deflated and withdrawn. An en route tapered 8-6 x 30 carotid stent was then advanced in the position centered on the lesion and then deployed. The portion of the stent and the most severe area of stenosis did not have full expansion so the 4.5 angioplasty balloon was then readvanced and inflated to burst pressure and then deflated withdrawn. Radiographically the stent had better expansion and the allotted period of time for flow reversal was allowed to elapse. Completion angiography was performed which revealed brisk contrast transit with no extravasation or dissection and no significant residual stenosis. The wire was then withdrawn and the flow reversal system detached return blood in the tubing through the 8 Algerian femoral vein sheath. The 8 [place] sheath was then withdrawn and manual pressure held for 5 minutes with satisfactory stasis observed. The pursestring in the common carotid artery was then secured as the arterial sheath was withdrawn and satisfactory stasis was noted. The vessel was interrogated with Doppler and found to be patent with low resistance signal both proximal to and distal to the repair site. Heparin was then reversed with protamine and the incision inspected for hemostasis. Andrade topical hemostatic was applied and a 19 [place] [address] ROLANDO was placed via separate stab incision and laid adjacent to the common carotid vessel. The incision was then closed with 3-0 Vicryl, 4 Monocryl and Dermabond for the skin. At the conclusion the case the patient was awake from anesthesia moving all extremities to command cranial nerves intact. She was then taken the recovery room with anticipated admission to the intensive care unit for hemodynamic and neurologic monitoring. Grafts/Implants Used: tapered 6-8 x 30 enroute
[2024-01-25 11:08] LABS: ACT Activated Clotting Time 281 sec (74-137)
[2024-01-25 11:08] LABS: ACT Activated Clotting Time 336 sec (74-137)
[2024-01-25] MEDS: Norepinephrine 8 MG in 0.9% Normal Saline (250mL Bag) 242 ML 9.4 MG CONT INF (11:45)
[2024-01-25] MEDS: 0.9% Normal Saline (1000mL) 1,000 ML 100 ML IV ×2 (14:21→20:15)
[2024-01-25] MEDS: Acetaminophen 500 MG Tablet 1000 MG PO ×2 (14:23→19:58)
[2024-01-25] MEDS: Insulin Lispro 100 UNIT/ML INSULN.PEN SC ×2 (16:20→20:01)
[2024-01-25] MEDS: metFORMIN HCl 1,000 MG Tablet 1000 MG PO (16:20)
[2024-01-25 16:41] LABS: Bedside Glucose 221 mg/dL (74-106)
[2024-01-25] MEDS: traMADol 50 MG Tablet PO (18:31)
[2024-01-25] MEDS: Albuterol 2.5 MG/3 ML VIAL.NEB. INHALATION (18:52)
[2024-01-25] MEDS: Budesonide Respules 0.5 MG/2 ML AMPUL.NEB. INHALATION (18:52)
[2024-01-25] MEDS: HYDROmorphone 0.5 MG/0.5 ML SYRINGE IV (19:48)
[2024-01-25] MEDS: TICAGRELOR 90 MG TABLET PO (19:58)
[2024-01-25] MEDS: Pantoprazole Sodium 40 MG Tablet PO (19:58)
[2024-01-25] MEDS: Atorvastatin Calcium 20 MG Tablet PO (19:59)
[2024-01-25 20:30] LABS: Bedside Glucose 236 mg/dL (74-106)
[2024-01-25] MEDS: oxyCODONE 5 MG Tablet PO (22:51)
[2024-01-26] VITALS (51 sets, daily range): BP systolic 73–146; BP diastolic 30–86; PULSE 62–95; RESP 18–29; TEMP 36.2–36.8; O2SAT 91–100; BMI 35.8
[2024-01-26] MEDS: HYDROmorphone 0.5 MG/0.5 ML SYRINGE IV ×2 (00:25→03:30)
[2024-01-26] MEDS: 0.9% Saline Lock 10 ML Syringe IV ×3 (00:26→20:04)
[2024-01-26 03:45] LABS: Absolute Lymphocyte Count 1.51 X10^3/uL (0.83-4.51); Absolute Neutrophil Count 8.4 X10^3/uL (2.0-7.7); Basophil# 0.04 X10^3/uL; Basophil% 0.3 % (0-1); Eosinophils% 13.6 % (0-5); Hematocrit 29.9 % (37-47); Hemoglobin 9.2 g/dL (12.0-15.0); Lymphocyte # 1.51 X10^3/ul (0.83-4.51); Lymphocyte % 12.1 % (19-41); Mean Corp Hgb Conc 30.8 g/dL (32-36); Mean Corpuscular Volume 77.9 fL (81-99); Mean Platelet Vol. 9.3 fl (6.2-12.0); Monocyte# 0.77 X10^3/uL; Monocyte% 6.2 % (0-10); NRBC Flagged by Analyzer 0 % (0-5); Neutrophil # 8.37 X10^3/uL (2.7-7.7); Neutrophil % 67.2 % (47-70); POSITIVE MORPHOLOGY YES; Platelet Count 385 K/mm3 (150-450); RBC Distribution Width CV 15.3 % (11.6-14.6); RBC Distribution Width SD 43.4 fl (35.1-43.9); Red Blood Count 3.84 M/mm3 (4.2-5.4); White Blood Count 12.5 K/mm3 (4.4-11.0)
[2024-01-26 03:53] LABS: Differential Indicated SCAN CRITERIA MET
[2024-01-26 05:02] LABS: Differential Comment SCANNED
[2024-01-26] MEDS: oxyCODONE 5 MG Tablet PO ×2 (06:23→21:20)
[2024-01-26] MEDS: 0.9% Normal Saline (1000mL) 1,000 ML 100 ML IV (06:24)
[2024-01-26] MEDS: Acetaminophen 500 MG Tablet 1000 MG PO ×3 (06:24→21:18)
[2024-01-26] MEDS: Albuterol 2.5 MG/3 ML VIAL.NEB. INHALATION ×3 (06:50→19:06)
[2024-01-26] MEDS: Budesonide Respules 0.5 MG/2 ML AMPUL.NEB. INHALATION ×2 (06:50→19:06)
[2024-01-26] MEDS: Pantoprazole Sodium 40 MG Tablet PO ×2 (07:40→21:19)
[2024-01-26] MEDS: Pioglitazone Hydrochloride 45 MG Tablet PO (07:41)
[2024-01-26] MEDS: Aspirin E.C. 81 MG Tablet PO (07:41)
[2024-01-26] MEDS: Glimepiride 4 MG Tablet PO (07:41)
[2024-01-26] MEDS: TICAGRELOR 90 MG TABLET PO ×2 (07:41→21:19)
[2024-01-26] MEDS: metFORMIN HCl 1,000 MG Tablet 1000 MG PO ×2 (07:41→17:02)
[2024-01-26] MEDS: Montelukast 10 MG Tablet PO (07:41)
[2024-01-26] MEDS: Enoxaparin 40 MG/0.4 ML Syringe SC (07:42)
[2024-01-26 08:16] LABS: Bedside Glucose 158 mg/dL (74-106)
--- NOTE | 2024-01-26 10:00 | CASEMGMT ---
EBER BASSETT Assessment Face to Face with patient for initial transition planning/care coordination assessment. EBER BASSETT introduced self and role at [facility], pt voices understanding. Pt is A&Ox4 and is resting comfortably in the chair and is calm. Pt at bedside. Care providers, pharmacy, and demographics verified. Admitting dx: Lt Carotid Stenosis LACE Strata: 2 PCP: Kali Dueñas Specialists: Vladimir (Vascular), Noel (PM), [facility], [facility] Preferred Pharmacy: [facility] Insurance: [facility] Prescription Benefit: Yes LNOK: Lambert Baron (H) Living Arrangements: Pt lives with her in a ranch style home with a basement with handrails and 2 steps to enter ADLs/IADLs: Mainly independent. Pt states that she has chronic back pain and that her assists with IADLs at times Transportation: Self, DME: Walk in shower with GB and chair. Working BGM and supplies. BP Cuff. Pulse Ox. Nebulizer. Cane. HHC/SNF: Denies SNF history or needs. Pt states that she had HHC through [facility] 1 year ago and states that she has a poor experience and does not want HHC again. Pt has a history at the wound center but states that she has not needed to follow there any longer. Pt?s goal: Home no needs Plan: Home with pt . Pt states that she feels safe discharging home once she is medically ready. Pt denies the need for HHC or OP therapy at this time. Pt states that she plans to follow up with Dr. Issa in 2 weeks in regard to her chronic pain. Pt states that PM is not controlling her pain any longer. PT is pending. CM to follow to ensure a safe DC home once the pt is medically cleared. Magdi Merino RN, CM
[2024-01-26 10:14] LABS: Bedside Glucose 149 mg/dL (74-106)
--- NOTE | 2024-01-26 11:38 | PCM.PN.SRG ---
Subjective Subjective Patient was seen resting in the chair this morning. She complains of a lot of arthritis pain which is at her baseline, she notes discomfort/itching from the adhesive at the incision site but otherwise no pain there. She denies any headache. Her BP remain low, she is still requiring levophed to support. Hgb overall stable, expected postoperative decrease at 9.2 this morning. She has not had any motor weakness, dysarthria, facial droop, sensory changes, vision loss. Objective Data Objective Data Vital Signs: Vital Signs Temp Pulse Resp BP Pulse Ox O2 Del Method O2 Flow Rate 97.2 F L 71 20 H 98/43 L 96 Room Air 2 01/26/24 08:00 01/26/24 11:00 01/26/24 11:00 01/26/24 11:15 01/26/24 11:00 01/26/24 11:25 01/26/24 08:00 Oxygen Flow Rate (L/min) 2 Oxygen Delivery Method Room Air Weight: 202 lb 6.15 oz Body Mass Index (BMI) 35.8 Intake & Output: Intake and Output for Last 24 Hours 01/24/24 01/25/24 01/26/24 23:59 23:59 23:59 Intake Total 3174.30 / 3183.70 1667.96 / 1667.96 Output Total 1330 / 1330 640 / 640 Balance 1844.30 / 1853.70 1027.96 / 1027.96 Lab / Micro Data 01/26/24 03:38 01/13/24 09:57 Labs: Laboratory Results - last 24 hr 01/25/24 16:14: POC Glucose 221 H 01/25/24 20:00: POC Glucose 236 H 01/26/24 03:38: WBC 12.5 H, RBC 3.84 L, Hgb 9.2 L, Hct 29.9 L, MCV 77.9 L, MCH 24.0 L, MCHC 30.8 L, RDW Std Deviation 43.4, RDW Coeff of Deny 15.3 H, Plt Count 385, MPV 9.3, Immature Gran % (Auto) 0.600, Neut % (Auto) 67.2, Lymph % (Auto) 12.1 L, Sierra % (Auto) 6.2, Eos % (Auto) 13.6 H, Baso % (Auto) 0.3, Absolute Neuts (auto) 8.4 H, Absolute Lymphs (auto) 1.51, Nucleated RBC % 0, Differential Comment SCANNED 01/26/24 07:39: POC Glucose 158 H 01/26/24 09:54: POC Glucose 149 H Physical Exam Const alert and oriented x3 General Appearance: cooperative HEENT normocephalic, head/scalp atraumatic, hearing grossly normal bilaterally, external ears normal and external nose normal Eyes EOMs intact bilaterally General Eye: normal appearance of both eyes Neck Neck Narrative: L neck incision site satisfactory in appearance, minimal ecchymosis. Sanguineous drainage in the ROLANDO drain. No bleeding or drainage from the incision site. No focal swelling. Resp normal respiratory effort, no retractions and no use of accessory muscles Effort and Inspection: able to speak in complete sentences; Negative for labored, stridor or audible wheezes Cardio regular rate and regular rhythm Extremity normal to inspection and no clubbing, cyanosis or edema Skin no rashes or lesions noted Neuro oriented x3, CN's II-XII intact bilaterally, moves all extremities, no focal motor deficits and no sensory deficits noted Speech: speech normal Psych mental status grossly normal Appearance: grossly normal Attitude: engaged Activity / Motor Behavior: appropriate eye contact Speech: normal speech Mood & Affect: anxious Assessment & Plan Assessment/Plan (1) Carotid stenosis, left: PLAN: Plan She is s/p L TCAR POD#1. ROLANDO drain was removed without issue. Incision site is satisfactory in appearance. She has been hypotensive following surgery and remains on levophed, continue to wean as able with goal systolic BP >90. Continue to hold home BP meds. Will continue to monitor. Okay for normal diet.
--- NOTE | 2024-01-26 17:34 | NURSING ---
patient complaining of some soreness in throat when eating meat for dinner and sandwich for lunch, states other foods and liquids going ok. Patient also lightheaded when standing, this improves after a few seconds. Encouraged patient to continue drinking fluids and move slow when rising from laying to sitting and standing positions. INDU Hurtado notified. Continue to monitor.
[2024-01-26] MEDS: traMADol 50 MG Tablet PO (20:03)
[2024-01-26] MEDS: Atorvastatin Calcium 20 MG Tablet PO (21:19)
[2024-01-26 21:51] LABS: Bedside Glucose 115 mg/dL (74-106)
[2024-01-27] VITALS (12 sets, daily range): BP systolic 93–146; BP diastolic 42–59; PULSE 57–89; RESP 14–26; TEMP 36.1–36.4; O2SAT 95–98; BMI 36.3
[2024-01-27] MEDS: Mag Hydrox/Al Hydrox/Simeth 30 ML UDC PO (02:00)
[2024-01-27] MEDS: Acetaminophen 500 MG Tablet 1000 MG PO (04:38)
[2024-01-27] MEDS: oxyCODONE 5 MG Tablet PO (04:39)
[2024-01-27] MEDS: Budesonide Respules 0.5 MG/2 ML AMPUL.NEB. INHALATION (07:08)
[2024-01-27] MEDS: Albuterol 2.5 MG/3 ML VIAL.NEB. INHALATION (07:08)
[2024-01-27 08:09] LABS: Bedside Glucose 107 mg/dL (74-106)
--- NOTE | 2024-01-27 08:21 | PCM.PN.SRG ---
Subjective Subjective Patient was seen this morning sitting in bedside chair. She had a lot of anxiety overnight, did not sleep much. Otherwise, no complaints. She has been off of levophed for over 12 hours and her BPs have remained stable and improved. Her home BP meds are still being held. Objective Data Objective Data Vital Signs: Vital Signs Temp Pulse Resp BP Pulse Ox O2 Del Method O2 Flow Rate 97.5 F L 57 L 14 133/59 H 96 Room Air 2 01/27/24 02:07 01/27/24 07:00 01/27/24 07:00 01/27/24 07:00 01/27/24 07:00 01/27/24 07:00 01/26/24 08:00 Oxygen Flow Rate (L/min) 2 Oxygen Delivery Method Room Air Weight: 205 lb 7.533 oz Body Mass Index (BMI) 36.3 Intake & Output: Intake and Output for Last 24 Hours 01/25/24 01/26/24 01/27/24 23:59 23:59 23:59 Intake Total 3174.30 / 3183.70 3475.80 / 3525.80 200 / 200 Output Total 1330 / 1330 640 / 640 0 / 0 Balance 1844.30 / 1853.70 2835.80 / 2885.80 200 / 200 Lab / Micro Data 01/26/24 03:38 01/13/24 09:57 Labs: Laboratory Results - last 24 hr 01/26/24 09:54: POC Glucose 149 H 01/26/24 21:30: POC Glucose 115 H 01/27/24 07:48: POC Glucose 107 H Physical Exam Const alert and oriented x3 General Appearance: cooperative HEENT normocephalic, head/scalp atraumatic, hearing grossly normal bilaterally, external ears normal and external nose normal Eyes EOMs intact bilaterally General Eye: normal appearance of both eyes Neck Neck Narrative: L neck incision site satisfactory in appearance, minimal ecchymosis. Minimal sanguineous drainage on the bandage covering the drain site. No focal swelling. Resp normal respiratory effort, no retractions and no use of accessory muscles Effort and Inspection: able to speak in complete sentences; Negative for labored, stridor or audible wheezes Cardio regular rate and regular rhythm Extremity normal to inspection and no clubbing, cyanosis or edema Skin no rashes or lesions noted Neuro oriented x3, CN's II-XII intact bilaterally, moves all extremities, no focal motor deficits and no sensory deficits noted Speech: speech normal Psych mental status grossly normal Appearance: grossly normal Attitude: engaged Activity / Motor Behavior: appropriate eye contact Speech: normal speech Mood & Affect: anxious Assessment & Plan Assessment/Plan (1) Carotid stenosis, left: PLAN: Plan She is s/p L TCAR POD#2. Incision site remains satisfactory in appearance. Her BPs are now 120-130s systolic. She has been off of levophed for over 12 hours. Will continue to hold home BP medications at discharge and have her monitor her pressures at home. She will continue Brilinta for 30 days postop. Plan for discharge this morning.
--- NOTE | 2024-01-27 08:29 | PCM.DC.SUM ---
Providers Date of Admission: 01/25/24 Primary Care Physician: Dr. Kali Dueñas MD Reason For Visit: LEFT CAROTID STENOSIS Diagnosis Discharge Diagnosis (1) Carotid stenosis, left: Status: Acute Code(s): I65.22 - Occlusion and stenosis of left carotid artery Plan She is s/p L TCAR POD#2. Incision site remains satisfactory in appearance. Her BPs are now 120-130s systolic. She has been off of levophed for over 12 hours. Will continue to hold home BP medications at discharge and have her monitor her pressures at home. She will continue Brilinta for 30 days postop. Plan for discharge this morning. Medications at Discharge Home Medications budesonide-formoterol HFA 160 mcg-4.5 mcg/actuation aerosol inhaler 2 puff inhalation BID PRN Asthma 05/21/16 montelukast 10 mg tablet 10 mg PO DAILY ASTHMA 05/21/16 cetirizine 10 mg capsule (Zyrtec) 10 mg PO DAILY PRN allergy symptoms 05/18/18 Al hyd-Mg tr-alg ac-sod bicarb 80 mg-14.2 mg chewable tablet (Gaviscon) 1 tab PO DAILY PRN GAS 05/22/19 metformin 1,000 mg 24 hr tablet,extended release (gastric reten.) 1,000 mg PO BID DIABETES 05/22/19 albuterol sulfate 90 mcg/actuation aerosol inhaler 2 puff inhalation Q6H PRN Shortness Of Breath Or Wheezing 11/04/22 aspirin 81 mg tablet,delayed release (Adult Low Dose Aspirin) 81 mg PO DAILY HEART HEALTH 12/21/22 metoprolol tartrate 25 mg tablet 25 mg PO BID HTN 12/21/22 tramadol 50 mg tablet 50 mg PO 4X/DAY PRN Pain 01/04/23 glimepiride 4 mg tablet (Amaryl) 4 mg PO DAILY DIABETES 03/11/23 amlodipine 5 mg tablet (Norvasc) 5 mg PO DAILY HTN 09/17/23 nystatin 100,000 unit/gram topical powder (Nystop) 1 applic topical TID YEAST INFECTION #45 ea 09/17/23 rosuvastatin 10 mg tablet (Crestor) 10 mg PO DAILY HLD 09/17/23 omeprazole 40 mg capsule,delayed release 40 mg PO BID GERD 10/12/23 ticagrelor 90 mg tablet (Brilinta) 90 mg PO BID HEART HEALTH #60 tabs 11/18/23 pioglitazone 45 mg tablet (Actos) 45 mg PO DAILY DIABETES 01/11/24 lisinopril 20 mg-hydrochlorothiazide 12.5 mg tablet 1 tab PO DAILY htn 01/25/24 docusate sodium 100 mg capsule 100 mg PO BID PRN PRN Constipation 5 days #10 caps 01/27/24 oxycodone 5 mg tablet 5 mg PO Q8H PRN PRN Pain Score 4-10 3 days #9 tabs 01/27/24 Hospital Course Summary of Care Provided Hospital Course: Ashwini Baron is a 73 y/o female who underwent L TCAR on 01/25/24. She tolerated the procedure well. She was routinely admitted to the ICU postoperatively for hemodynamic and neurologic monitoring. Postoperatively, she was hypotensive and required levophed to maintain her pressures. She was able to be weaned off of the levophed on 01/26/24 evening. Her ROLANDO drain was removed on 01/25 without issue. She has remained neurologically intact throughout her admission without any hoarseness, tongue deviation, difficulty swallowing. The incision site has remained satisfactory in appearance. She is tolerating a normal diet, ambulating without difficulty, voiding without difficulty. She has not had any unilateral BOLANOS. She is medically stable for discharge home today. Her blood pressures have remained below 140 systolic so her home BP meds have been held. She has been advised to check her BP twice daily and restart her home blood pressure medications once her systolic pressures are greater than 140. She has outpatient follow-up scheduled in the office on 02/10/24. Physical Exam Const alert and oriented x3 General Appearance: cooperative HEENT normocephalic, head/scalp atraumatic, hearing grossly normal bilaterally, external ears normal and external nose normal Eyes EOMs intact bilaterally General Eye: normal appearance of both eyes Neck Neck Narrative: L neck incision site satisfactory in appearance, minimal ecchymosis. Minimal sanguineous drainage on the bandage covering the drain site. No focal swelling. Resp normal respiratory effort, no retractions and no use of accessory muscles Effort and Inspection: able to speak in complete sentences; Negative for labored, stridor or audible wheezes Cardio regular rate and regular rhythm Extremity normal to inspection and no clubbing, cyanosis or edema Extremity Narrative: R groin puncture site with mild ecchymosis, no significant swelling. No erythema. No bleed-through on the dressing. Skin no rashes or lesions noted Neuro oriented x3, CN's II-XII intact bilaterally, moves all extremities, no focal motor deficits and no sensory deficits noted Speech: speech normal Psych mental status grossly normal Appearance: grossly normal Attitude: engaged Activity / Motor Behavior: appropriate eye contact Speech: normal speech Mood & Affect: anxious Weight / BMI Weight Weight: 205 lb 7.533 oz Body Mass Index (BMI) 36.3 ABG / Lab / Microbiology Data 01/26/24 03:38 01/13/24 09:57 Laboratory: Laboratory Results - last 24 hr 01/26/24 09:54: POC Glucose 149 H 01/26/24 21:30: POC Glucose 115 H 01/27/24 07:48: POC Glucose 107 H Meaningful Use Info Meaningful Use Meaningful Use Diagnoses (Choose all that apply): None applicable Ischemic Stroke Statin Dosing Therapy Reference: STATIN DOSE THERAPY REFERENCE: * Patients > 75 years receive moderate or high dose statin therapy. * Patients 75 years or YOUNGER should receive HIGH intensity statin dose unless contraindicated. You will be required to document reason for non-treatment if statin daily dose does not meet guidelines. HIGH DOSE STATIN THERAPY DAILY Atorvastatin > than or = to 40 mg Rosuvastatin > than or = to 20 mg Amlodipine + Atorvastatin > than or = to 2.5/40 mg Ezetimibe + Simvastatin 10/80 mg Simvastatin 80mg Discharge Plan Admission Admit Date/Time: 01/25/24 05:22 Primary Reason for Your Visit: Left Carotid Stenting Attending Provider: Abraham Gilbert Primary Care Provider: Kali Dueñas Consulting Providers: Abraham Padron Instructions Additional Instructions / Restrictions: You have a small bandage over the site from which the surgical drain was removed. You may remove this bandage tomorrow. As long as there is no residual drainage, you may leave this open to air. If you do notice some continued drainage, you may re-cover with a Band-Aid. Your incision site is covered with surgical glue which will continue to protect it. The surgical glue will peel/flake off on its own over the next few weeks. Please do not pick at it. You may shower tomorrow. It is okay for soap and water to rinse over the incision site, pat to dry. Do not submerge the incision site in water such as to take a bath or go swimming etc. for 3 weeks. Do not lift greater than 20 pounds for 3 weeks. Otherwise, please continue with activity as tolerated. Do not drive until you can turn your head well enough to safely check your blind spots. I have prescribed a prescription pain medication oxycodone 5 mg tablets to be taken by mouth every 8 hours as needed for pain. Do not take in combination with any other prescription pain medications. You may take this in addition to Tylenol or ibuprofen as allowed. You have had lower blood pressures following surgery. Due to this, your Metoprolol, Lisinopril-hydrochlorothiazide, and Amlodipine have been placed on hold. Please check your blood pressures twice daily at home (morning and evening). When your systolic blood pressure (top number) is greater than 140, please restart your blood pressure medications one at a time as we discussed at the time of your discharge. If you have any questions or concerns about this, please contact the office. You are scheduled for follow-up in the office on 02/10/24. If you need to change this appointment for have any other questions or concerns please contact the office at [phone]. Discharge Orders/Prescriptions Prescriptions: New docusate sodium 100 mg Capsule 100 mg PO BID PRN PRN (Reason: Constipation) 5 Days Qty: 10 0RF oxycodone 5 mg Tablet 5 mg PO Q8H PRN PRN (Reason: Pain Score 4-10) 3 Days Qty: 9 0RF Continued Zyrtec 10 mg capsule 10 mg PO DAILY PRN (Reason: allergy symptoms) omeprazole 40 mg capsule,delayed release(DR/EC) 40 mg PO BID Gaviscon 80-14.2 mg tablet,chewable 1 tab PO DAILY PRN (Reason: GAS) albuterol sulfate 90 mcg/actuation HFA aerosol inhaler 2 puff inhalation Q6H PRN (Reason: Shortness Of Breath Or Wheezing) rosuvastatin [Crestor] 10 mg tablet 10 mg PO DAILY nystatin [Nystop] 100,000 unit/gram powder 1 applic topical TID Qty: 45 7RF Brilinta 90 mg tablet 90 mg PO BID Qty: 60 0RF montelukast 10 MG tablet 10 mg PO DAILY budesonide-formoterol 1 INHALER inhaler 2 puff Inhalation BID PRN (Reason: Asthma) metformin 1,000 mg tablet,ER verito.retention 24 hr 1,000 mg PO BID tramadol 50 mg Tablet 50 mg PO 4X/DAY PRN (Reason: Pain) glimepiride [Amaryl] 4 mg tablet 4 mg PO DAILY pioglitazone [Actos] 45 mg tablet 45 mg PO DAILY aspirin [Adult Low Dose Aspirin] 81 mg tablet,delayed release (DR/EC) 81 mg PO DAILY Held amlodipine [Norvasc] 5 mg tablet 5 mg PO DAILY Hold Instructions: Resume on 01/29/24. Hold until systolic BP >140 lisinopril-hydrochlorothiazide 20-12.5 mg tablet 1 tab PO DAILY Hold Instructions: Resume on 01/30/24. Hold until systolic BP >140 metoprolol tartrate 25 mg tablet 25 mg PO BID Hold Instructions: Resume on 01/28/24. Hold until systolic BP >140 Disposition Disposition (needs filled in before D/C Order can be placed): Home, Self Care
[2024-01-27] MEDS: TICAGRELOR 90 MG TABLET PO (08:42)
[2024-01-27] MEDS: Pioglitazone Hydrochloride 45 MG Tablet PO (08:42)
[2024-01-27] MEDS: Montelukast 10 MG Tablet PO (08:42)
[2024-01-27] MEDS: metFORMIN HCl 1,000 MG Tablet 1000 MG PO (08:42)
[2024-01-27] MEDS: Pantoprazole Sodium 40 MG Tablet PO (08:43)
[2024-01-27] MEDS: Aspirin E.C. 81 MG Tablet PO (08:43)
[2024-01-27] MEDS: Glimepiride 4 MG Tablet PO (08:43)
== END 2024-01-27 09:29 | disposition home or self-care (01) | DRG 36 ==
LOC: ACINP 05:22 → ICU 10:49
PROVIDERS: Anesthesiology; Admitting Provider Surgery Trauma Surgery; PCP Family Medicine; Referring Provider Surgery Trauma Surgery; Visit Provider Surgery Trauma Surgery
PROC: 037L3DZ Dilation of Left Internal Carotid Artery with Intraluminal Device, Percutaneous Approach (ICD-10-PCS; CPT 37236; principal; 2024-01-25 07:00)
DX: I65.22 Occlusion and stenosis of left carotid artery (principal); E11.9 Type 2 diabetes mellitus without complications; I10 Essential (primary) hypertension; E78.5 Hyperlipidemia, unspecified; M19.90 Unspecified osteoarthritis, unspecified site; I95.81 Postprocedural hypotension; Z79.82 Long term (current) use of aspirin; Z79.84 Long term (current) use of oral hypoglycemic drugs; Z79.899 Other long term (current) drug therapy
CPT/HCPCS: 36415; 37215; 76937; 80048; 82962; 83036; 85025; 85027; 85347; 86850; 86900; 86901; 93005; 94640; 94668; 94762; 97162; 97166; 97802; 99252; A4648; C1725; C1769; C1876; C1884; C1894; J7030; J7050; J7120; Q9967; A4216; G0463; J2405

== ENCOUNTER → 2024-02-09 | Outpatient (CLI) | payer MEDICARE, SELFPAY ==
--- NOTE | 2024-02-09 07:54 | CDU_ITS ---
Reason For Study: s/p L TCAR Rt. Velocities/BP Lt. Velocities/BP Prox CCA 76.2/15.7 cm/sec. Prox CCA 91.1/27.4 cm/sec. Mid CCA 64.1/16.8 cm/sec. Mid CCA 82.3/18.6 cm/sec. Dist CCA 106.5/15.2 cm/sec. Dist CCA 85.6/19.7 cm/sec. Prox ICA 156.1/13.9 cm/sec. Proximal stent. Mid ICA 80.7/22.1 cm/sec. Prox ICA 148.4/35.2 cm/sec. Dist ICA 168.2/36.4 cm/sec. Mid ICA 177.5/41.7 cm/sec. Rt. ICA/CCA = 2.6. Dist ICA 161.3/41.7 cm/sec. Prox ECA 236.6/20.8 cm/sec. Stent noted from the proximal ICA to mid Rt. Vert. 19.2/16.6 cm/sec. ICA. Lt. ICA/CCA = 2.2. Prox ECA 187.2/19.1 cm/sec. Lt. Vert. 57.5/16 cm/sec. Right Extracranial There is heterogeneous, irregular atherosclerotic plaque noted in the right common carotid artery. There is heterogeneous, irregular atherosclerotic plaque noted in the right internal carotid artery. There is heterogeneous, irregular atherosclerotic plaque noted in the right external carotid artery. Antegrade flow is noted in the right vertebral artery. Left Extracranial Stent noted distal CCA to mid ICA. There is heterogeneous, irregular atherosclerotic plaque noted in the left internal carotid artery. There is heterogeneous, irregular atherosclerotic plaque noted in the left external carotid artery. Antegrade flow is noted in the left vertebral artery. Procedure Carotid Duplex [id number]. This is a Carotid Duplex examination using B-mode, color flow and specral Doppler. The exam was diagnostic. Exam performed in department. VL/Carotid Duplex Ultrasound Interpretation Summary Moderate (50-69%) stenosis right extracranial internal carotid. Mild (<70%) stenosis left extracranial internal carotid. Patent and antegrade vertebrals bilaterally. Ordering Physician: Genesis Carbajal Referring Physician: Genesis Carbajal Performed By: Gege Bernabe RVT
== END | disposition home or self-care (01) ==
LOC: CVS 07:50
PROVIDERS: PCP Family Medicine; Referring Provider Physician Assistant; Visit Provider Physician Assistant
DX: Z48.812 Encounter for surgical aftercare following surgery on the circulatory system (principal); I65.22 Occlusion and stenosis of left carotid artery
CPT/HCPCS: 93880

== ENCOUNTER → 2024-05-03 | Outpatient (CLI) | payer MEDICARE, SELFPAY ==
[2024-05-03 17:31] LABS: Absolute Lymphocyte Count 2.27 X10^3/uL (0.83-4.51); Absolute Neutrophil Count 3.6 X10^3/uL (2.0-7.7); Basophil# 0.04 X10^3/uL; Basophil% 0.6 % (0-1); Eosinophil# 0.14 X10^3/uL; Hematocrit 34.5 % (37-47); Hemoglobin 9.9 g/dL (12.0-15.0); Lymphocyte # 2.27 X10^3/ul (0.83-4.51); Lymphocyte % 32.3 % (19-41); Mean Corp Hgb Conc 28.7 g/dL (32-36); Mean Corpuscular Hgb 21.7 pg (27.0-32.0); Mean Corpuscular Volume 75.7 fL (81-99); Mean Platelet Vol. 9.8 fl (6.2-12.0); Monocyte# 0.93 X10^3/uL; Monocyte% 13.2 % (0-10); NRBC Flagged by Analyzer 0 % (0-5); Neutrophil # 3.62 X10^3/uL (2.7-7.7); Neutrophil % 51.6 % (47-70); Platelet Count 386 K/mm3 (150-450); RBC Distribution Width CV 16.3 % (11.6-14.6); RBC Distribution Width SD 44.3 fl (35.1-43.9); Red Blood Count 4.56 M/mm3 (4.2-5.4)
== END | disposition home or self-care (01) ==
LOC: LAB 15:01
PROVIDERS: PCP Family Medicine; Referring Provider Physician Assistant Medical; Visit Provider Physician Assistant Medical
DX: D64.9 Anemia, unspecified (principal)
CPT/HCPCS: 36415; 85025

== ENCOUNTER → 2024-05-10 | Outpatient (CLI) | payer MEDICARE, SELFPAY ==
[2024-05-10 11:54] LABS: Absolute Lymphocyte Count 3.56 X10^3/uL (0.83-4.51); Absolute Neutrophil Count 4.3 X10^3/uL (2.0-7.7); Basophil# 0.04 X10^3/uL; Basophil% 0.5 % (0-1); Eosinophil# 0.14 X10^3/uL; Eosinophils% 1.6 % (0-5); Hematocrit 33.7 % (37-47); Hemoglobin 9.8 g/dL (12.0-15.0); Lymphocyte # 3.56 X10^3/ul (0.83-4.51); Mean Corp Hgb Conc 29.1 g/dL (32-36); Mean Corpuscular Hgb 22.1 pg (27.0-32.0); Mean Corpuscular Volume 75.9 fL (81-99); Mean Platelet Vol. 8.4 fl (6.2-12.0); Monocyte# 0.62 X10^3/uL; Monocyte% 7.1 % (0-10); NRBC Flagged by Analyzer 0 % (0-5); Neutrophil # 4.31 X10^3/uL (2.7-7.7); Neutrophil % 49.6 % (47-70); Platelet Count 399 K/mm3 (150-450); RBC Distribution Width CV 16.3 % (11.6-14.6); RBC Distribution Width SD 44.5 fl (35.1-43.9); Red Blood Count 4.44 M/mm3 (4.2-5.4); White Blood Count 8.7 K/mm3 (4.4-11.0)
== END | disposition home or self-care (01) ==
LOC: LAB 11:34
PROVIDERS: PCP Family Medicine; Referring Provider Physician Assistant Medical; Visit Provider Physician Assistant Medical
DX: D64.9 Anemia, unspecified (principal)
CPT/HCPCS: 36415; 85025

== ENCOUNTER → 2024-07-12 | Outpatient (CLI) | payer MEDICARE, SELFPAY ==
--- NOTE | 2024-07-12 09:57 | CDU_ITS ---
Reason For Study: S/P L TCAR Rt. Velocities/BP Lt. Velocities/BP Prox CCA 61.4/9.8 cm/sec. Prox CCA 58.8/13.4 cm/sec. Mid CCA 91.1/14.4 cm/sec. Mid CCA Prox to Stent, 66.2/19.5 cm/s Dist CCA 100.3/21.7 cm/sec. Dist CCA Prox Stent, 71.1/18.1 cm/s. Prox ICA 207.5/38.8 cm/sec. Prox ICA Mid Stent, 136.3/30.1 cm/s Mid ICA 84.8/8 cm/sec. Prox ICA Dist Stent, 115.6/24.9 cm/s Dist ICA 117.5/17.7 cm/sec. Mid ICA Dist to Stent, 83.2/14.4 cm/s. Rt. ICA/CCA = 2.3. Dist ICA 75.8/14.7 cm/sec. Prox ECA 238.9/0.0 cm/sec. Lt. ICA/CCA = 2.1. Rt. Vert. 38.2/7.1 cm/sec. Prox ECA 429.5/19.9 cm/sec. Lt. Vert. 48.7/19.5 cm/sec. Right Extracranial There is heterogeneous, irregular atherosclerotic plaque noted in the right common carotid artery. There is heterogeneous, irregular atherosclerotic plaque noted in the right internal carotid artery. There is heterogeneous, irregular atherosclerotic plaque noted in the right external carotid artery. Antegrade flow is noted in the right vertebral artery. Left Extracranial There is intimal thickening but no significant atherosclerotic plaque noted in the left common carotid artery. There is heterogeneous, irregular atherosclerotic plaque noted in the left internal carotid artery. The atherosclerotic plaque causes acoustic shadowing. There is heterogeneous, irregular atherosclerotic plaque noted in the left external carotid artery. Antegrade flow is noted in the left vertebral artery. Procedure Carotid Duplex [id number]. This is a Carotid Duplex examination using B-mode, color flow and specral Doppler. Exam performed in department. VL/Carotid Duplex Ultrasound Interpretation Summary Moderate (50-69%) stenosis right extracranial internal carotid. Mild (<70%) stenosis left extracranial internal carotid. Patent and antegrade vertebrals bilaterally. Ordering Physician: Genesis Carbajal Referring Physician: Grayson Dueñas M.D. Performed By: Theresa uBrch RVT and Student
== END | disposition home or self-care (01) ==
LOC: CVS 09:54
PROVIDERS: PCP Family Medicine; Referring Provider Physician Assistant; Visit Provider Physician Assistant
DX: Z48.812 Encounter for surgical aftercare following surgery on the circulatory system (principal); I65.22 Occlusion and stenosis of left carotid artery; Z95.828 Presence of other vascular implants and grafts
CPT/HCPCS: 93880

== ENCOUNTER → 2024-07-17 | Outpatient (CLI) | payer MEDICARE, SELFPAY ==
--- NOTE | 2024-07-17 19:26 | MRI_ITS ---
HISTORY: back pain into buttocks, legs and feet x 4 yrs. TECHNIQUE: Multiplanar and multisequence MR images of the lumbar spine were obtained without intravenous contrast. 121 images. COMPARISON: XR 02/03/2024, MR 07/06/2020. FINDINGS: VERTEBRAE: Vertebral body heights maintained. Mild degenerative endplate changes at L3-4, L4-5, and L5-S1. ALIGNMENT: 3 mm anterolisthesis of L4-5. CONUS: Normal morphology and position of the conus medullaris at the lower L1 level. INTERVERTEBRAL DISCS: T12-L1: No significant posterior disc protrusion, central canal stenosis, or foraminal narrowing based on the sagittal images. L1-2, L2-3: Minimal disc bulges with mild facet arthropathy resulting in no significant central canal stenosis and minimal bilateral foraminal narrowing, progressed from prior. L3-4: Increased mild disc bulge with facet arthropathy superimposed on a developmentally narrow spinal canal resulting in moderate central canal stenosis and mild bilateral foraminal narrowing. L4-5: Increased size of left paracentral and foraminal disc protrusion with facet arthropathy superimposed on a developmentally narrow spinal canal resulting in left L4 and L5 nerve root impingement, severe central canal stenosis, and moderate left greater than right foraminal narrowing. L5-S1: Left paracentral disc protrusion with facet arthropathy resulting in left S1 nerve root abutment/impingement, mild narrowing of the thecal sac in combination with prominent epidural fat, moderate left, and mild right foraminal narrowing similar to prior. SOFT TISSUES: Posterior subcutaneous edema noted. Sigmoid diverticulosis present. MRI/Spine Lumbar (Routine) IMPRESSION: Mild interval progression of multilevel degenerative disc disease in the lumbar spine. Moderate spinal canal stenosis and mild bilateral foraminal narrowing of L3-4. Severe spinal canal stenosis, left nerve root impingement, and moderate left greater than right foraminal narrowing at L4-5. Left nerve root abutment or impingement with left greater than right foraminal narrowing at L5-S1. Electronically Signed: Erika King MD at 9:38 EST ,
== END | disposition home or self-care (01) ==
PROVIDERS: PCP Family Medicine; Referring Provider Orthopaedic Surgery Orthopaedic Surgery of the Spine; Visit Provider Orthopaedic Surgery Orthopaedic Surgery of the Spine
DX: M43.16 Spondylolisthesis, lumbar region (principal)
CPT/HCPCS: 72148

== ENCOUNTER 2024-08-31 09:00 | Day surgery (SDC) | payer MEDICARE, SELFPAY ==
[2024-08-31 10:44] LABS: Absolute Lymphocyte Count 2.62 X10^3/uL (0.83-4.51); Absolute Neutrophil Count 7.1 X10^3/uL (2.0-7.7); Basophil# 0.05 X10^3/uL; Basophil% 0.5 % (0-1); Eosinophil# 0.19 X10^3/uL; Eosinophils% 1.7 % (0-5); Hematocrit 32.5 % (37-47); Hemoglobin 9.4 g/dL (12.0-15.0); Lymphocyte # 2.62 X10^3/ul (0.83-4.51); Lymphocyte % 24.1 % (19-41); Mean Corp Hgb Conc 28.9 g/dL (32-36); Mean Corpuscular Hgb 20.4 pg (27.0-32.0); Mean Corpuscular Volume 70.7 fL (81-99); Mean Platelet Vol. 9.2 fl (6.2-12.0); Monocyte# 0.86 X10^3/uL; Monocyte% 7.9 % (0-10); NRBC Flagged by Analyzer 0 % (0-5); Neutrophil % 65.4 % (47-70); Platelet Count 517 K/mm3 (150-450); RBC Distribution Width CV 16.6 % (11.6-14.6); RBC Distribution Width SD 41.8 fl (35.1-43.9); White Blood Count 10.9 K/mm3 (4.4-11.0)
[2024-08-31 10:57] LABS: Partial Thromboplast Time 26.8 Seconds (24.1-36.2); Prothrombin Time (Protime)PT. 13.2 SECONDS (11.7-14.9)
[2024-08-31 11:04] LABS: Magnesium 1.4 mg/dL (1.6-2.6)
[2024-08-31 11:08] LABS: Anion Gap 9 (5-15); BUN 27 mg/dL (7-18); Calcium,Total 9.5 mg/dL (8.5-10.1); Chloride 97 mmol/L (98-107); EST Glomerular Filtration Rate 65 mL/min (>60); Est Glom Filt Rate - Afr Amer 79 mL/min (>60); Glucose 163 mg/dL (74-106); Potassium 3.7 mmol/L (3.5-5.1); Sodium Level 132 mmol/L (136-145)
[2024-08-31 11:45] LABS: Hemoglobin A1c 7.7 % (3.8-5.6)
[2024-08-31 11:47] LABS: HIV - WCH Non-Reactive (Nonreactive); Hepatitis B Surface Antibody Reactive; Hepatitis C Antibody Non-Reactive (Nonreactive)
[2024-09-01 05:07] LABS: Hepatitis A AB, Total Negative (Negative)
== END 2024-09-01 09:30 | disposition home or self-care (01) ==
LOC: SDC 10-19 15:49
PROVIDERS: Anesthesiology; PCP Family Medicine; Referring Provider Orthopaedic Surgery Orthopaedic Surgery of the Spine; Visit Provider Orthopaedic Surgery Orthopaedic Surgery of the Spine
DX: Z01.818 Encounter for other preprocedural examination (principal)
CPT/HCPCS: 36415; 80048; 83036; 83735; 85025; 85610; 85730; 86703; 86706; 86708; 86803; 86850; 86900; 86901; 87081; 93005

== ENCOUNTER → 2024-09-11 | Outpatient (CLI) | payer MEDICARE, SELFPAY | END | disposition home or self-care (01) | LOC: PSN 08:25 | PROVIDERS: PCP Family Medicine; Referring Provider Physician Assistant Medical; Visit Provider Physician Assistant Medical | DX: I97.89 Other postprocedural complications and disorders of the circulatory system, not elsewhere classified (principal); I48.91 Unspecified atrial fibrillation | CPT/HCPCS: 93225; 93226 ==

== ENCOUNTER → 2024-09-18 | Outpatient (CLI) | payer MEDICARE, SELFPAY ==
[2024-09-22 10:18] LABS: HPV Reflexed? NOT INDICATED
== END | disposition home or self-care (01) ==
LOC: LABSPEC 16:23
PROVIDERS: PCP Family Medicine; Referring Provider Nurse Practitioner Women's Health; Visit Provider Nurse Practitioner Women's Health
DX: Z12.4 Encounter for screening for malignant neoplasm of cervix (principal); R87.610 Atypical squamous cells of undetermined significance on cytologic smear of cervix (ASC-US); R87.810 Cervical high risk human papillomavirus (HPV) DNA test positive
CPT/HCPCS: 88175; G0145

== ENCOUNTER → 2024-09-21 | Outpatient (CLI) | payer MEDICARE, SELFPAY ==
--- NOTE | 2024-09-21 09:30 | BI_ITS ---
PROCEDURE: SCRN MAMM (CAD)W/MIRIAN BILAT REASON FOR EXAM: F, Age 74 y/o, presents with annual screening mammogram. TECHNIQUE: Bilateral screening digital breast tomosynthesis with 2D and 3D images. Computer aided detection. COMPARISON: 08/19/2023, 06/10/2022. FINDINGS: There are scattered areas of fibroglandular density. No suspicious masses, areas of developing architectural distortion, or suspicious calcifications. BI/SCRN MAMM (CAD)W/MIRIAN BILAT IMPRESSION: There is no mammographic evidence of malignancy in either breast. BI-RADS 1: NEGATIVE. RECOMMEND ANNUAL MAMMOGRAPHIC SCREENING. Follow-up code: Routine Follow-up The patient will be notified of the results by letter. Reading Location: [id number]
== END | disposition home or self-care (01) ==
LOC: OPBI 09:28
PROVIDERS: PCP Family Medicine; Referring Provider Orthopaedic Surgery Orthopaedic Surgery of the Spine; Visit Provider Orthopaedic Surgery Orthopaedic Surgery of the Spine
DX: Z12.31 Encounter for screening mammogram for malignant neoplasm of breast (principal)
CPT/HCPCS: 77063; 77067

== ENCOUNTER → 2024-10-11 | Outpatient (CLI) | payer MEDICARE, SELFPAY | END | disposition home or self-care (01) | PROVIDERS: PCP Family Medicine; Referring Provider Anesthesiology Pain Medicine; Visit Provider Anesthesiology Pain Medicine | DX: F11.20 Opioid dependence, uncomplicated (principal) ==

== ENCOUNTER → 2024-10-25 | Outpatient (CLI) | payer MEDICARE, SELFPAY | END | disposition home or self-care (01) | PROVIDERS: PCP Family Medicine; Referring Provider Obstetrics & Gynecology; Visit Provider Obstetrics & Gynecology | DX: R68.89 Other general symptoms and signs (principal) | CPT/HCPCS: 87086 ==

== ENCOUNTER → 2025-01-16 | Outpatient (CLI) | payer MEDICARE, SELFPAY ==
--- NOTE | 2025-01-16 09:51 | CDU_ITS ---
Reason For Study Reason For Study: S/P left TCAR Rt. Velocities/BP Lt. Velocities/BP Prox CCA 61.7/9.7 cm/sec. Prox CCA 65.4/10.2 cm/sec. Mid CCA 52.2/6.9 cm/sec. Mid CCA Prox to Stent, 71.6/13.9 cm/sec. Dist CCA 65.5/13.5 cm/sec. Dist CCA Prox Stent, 74/16.3 cm/sec. Prox ICA 184.8/21.5 cm/sec. Prox ICA Mid Stent, 122.6/24.1 cm/sec. Mid ICA 66.6/13.6 cm/sec. Prox ICA Dist Stent, 133/26.7 cm/sec. Dist ICA 60.8/11.5 cm/sec. Mid ICA Dist to Stent, 91.6/17.3 cm/sec. Rt. ICA/CCA = 3.54. Dist ICA 74.1/13.9 cm/sec. Prox ECA 483.2/34. cm/sec. Lt. ICA/CCA = 1.86. Rt. Vert. 15.9/3.3 cm/sec. Prox ECA 113.8/20.6 cm/sec. Lt. Vert. 68.5/13.5 cm/sec. Right Extracranial There is heterogeneous, irregular atherosclerotic plaque noted in the right common carotid artery. There is heterogeneous, irregular atherosclerotic plaque noted in the right internal carotid artery. There is heterogeneous, irregular atherosclerotic plaque noted in the right external carotid artery. Antegrade flow is noted in the right vertebral artery. Left Extracranial There is intimal thickening but no significant atherosclerotic plaque noted in the left common carotid artery. There is heterogeneous, irregular atherosclerotic plaque noted in the left internal carotid artery. The atherosclerotic plaque causes acoustic shadowing. CCA distal to ICA prox, stent noted. There is heterogeneous, irregular atherosclerotic plaque noted in the left external carotid artery. Antegrade flow is noted in the left vertebral artery. Procedure Carotid Duplex 64056. This is a Carotid Duplex examination using B-mode, color flow and specral Doppler. Exam performed in department. VL/Carotid Duplex Ultrasound Interpretation Summary Moderate (50-69%) stenosis right extracranial internal carotid. Mild (<70%) stenosis left extracranial internal carotid. Patent and antegrade vertebrals bilaterally. Ordering Physician: Genesis Carbajal Referring Physician: Kali Dueñas Performed By: Theresa Burch RVT
== END | disposition home or self-care (01) ==
LOC: CVS 09:48
PROVIDERS: PCP Family Medicine; Referring Provider Physician Assistant; Visit Provider Physician Assistant
DX: Z48.812 Encounter for surgical aftercare following surgery on the circulatory system (principal)
CPT/HCPCS: 93880

== ENCOUNTER 2025-01-31 11:42 | Inpatient (IN) | payer MEDICARE, SELFPAY ==
--- NOTE | 2025-01-22 07:39 | EKG12_ITS ---
Test Reason : PREOP Blood Pressure : */* mmHG Vent. Rate : 87 BPM Atrial Rate : 87 BPM P-R Int : 150 ms QRS Dur : 82 ms QT Int : 382 ms P-R-T Axes : 35 -23 98 degrees QTcB Int : 459 ms Normal sinus rhythm Inferior infarct , age undetermined Abnormal ECG When compared with ECG of 31-Aug-2024 09:36, Inferior infarct is now Present Confirmed by Isai Fairbanks ([id number]), editor magazine SHAILESH MUNOZ ([id number]) on 01/22/2025 10:43:40 AM Referred By: Dominic Issa Confirmed By: Isai Fairbanks
[2025-01-22 08:17] LABS: Absolute Lymphocyte Count 2.79 X10^3/uL (0.83-4.51); Basophil# 0.03 X10^3/uL; Basophil% 0.3 % (0-1); Eosinophil# 0.22 X10^3/uL; Hematocrit 37.9 % (37-47); Hemoglobin 12.7 g/dL (12.0-15.0); Lymphocyte # 2.79 X10^3/ul (0.83-4.51); Lymphocyte % 25.7 % (19-41); Mean Corp Hgb Conc 33.5 g/dL (32-36); Mean Corpuscular Hgb 29.9 pg (27.0-32.0); Mean Corpuscular Volume 89.2 fL (81-99); Mean Platelet Vol. 10.2 fl (6.2-12.0); Monocyte# 0.79 X10^3/uL; Monocyte% 7.3 % (0-10); NRBC Flagged by Analyzer 0 % (0-5); Neutrophil # 6.96 X10^3/uL (2.7-7.7); Neutrophil % 64.1 % (47-70); Platelet Count 276 K/mm3 (150-450); RBC Distribution Width CV 13.7 % (11.6-14.6); RBC Distribution Width SD 44.5 fl (35.1-43.9); Red Blood Count 4.25 M/mm3 (4.2-5.4); White Blood Count 10.9 K/mm3 (4.4-11.0)
[2025-01-22 08:51] LABS: Hemoglobin A1c 6.5 % (<=5.6)
[2025-01-22 08:53] LABS: Magnesium 0.9 mg/dL (1.5-2.2)
[2025-01-22 09:23] LABS: Anion Gap 16 (5-15); BUN 14 mg/dL (4-19); BUN/Creat Ratio 18.6 RATIO (10-20); Calcium,Total 9.2 mg/dL (7.6-11.0); Carbon Dioxide 25.4 mmol/L (21.0-32.0); Chloride 98 mmol/L (98-108); Creatinine, Serum 0.77 mg/dL (0.70-1.20); EST Glomerular Filtration Rate 81 (>60); Glucose 139 mg/dL (70-99); HIV Nonreactive (Nonreactive); Potassium 3.6 mmol/L (3.3-5.1); Sodium Level 139 mmol/L (133-145)
--- NOTE | 2025-01-22 13:29 | PAT.ANESEVAL ---
Pre-Assessment Diagnosis/Proposed Procedure Planned Operative Procedure(s): 360 Lumbar Fusion L4-5, possible cement augmentation Anesthesia History Anesthesia History - technology development intern: Anesthesia History - technology development intern Hx Hospitalization Yes: 09-25-24 sepsis 01/17/25 08:53 [facility] main Any Problems With Anesthesia Yes: slow to wake up 01/17/25 08:53 Cholinesterase deficiency No 01/17/25 08:53 You/Your Family Experience No 01/17/25 08:53 fever (hyperthermia) with Relationship Recent Exposure to Contagious No 01/25/24 06:15 Disease Does patient have nerve No 01/17/25 08:53 stimulator Patient instructed to have device shut off --Does patient have Pacemaker or ICD? When Was Last Pacemaker Check QUESTION #4 FULL TEXT: You/Your Family Experience fever (hyperthermia) with Anesthesia Last Oral Intake Last Oral intake: Last Oral Intake NPO since Meds taken in AM with sips of water? Meds patient instructed to take am of surgery PONV PONV - technology development intern: PONV - technology development intern Female Yes 01/17/25 08:53 HX of Motion Sickness Yes 01/17/25 08:53 HX of N/V After Surgery No 01/17/25 08:53 Non-Smoker Yes 01/17/25 08:53 Duration of Surgery greater Yes 01/17/25 08:53 than 60 minutes Number of Risk Factors 4 01/17/25 08:53 PONV Score Severe Risk 01/17/25 08:53 Height & Weight Height & Weight: Anesthesia: Height & Weight Height 5 ft 3 in 12/25/24 15:40 Respiratory Assessment Respiratory Assessment - technology development intern: Respiratory Tract Infection Hx - technology development intern Hx Respiratory Tract Infection No 01/17/25 08:53 STOP Sleep Apnea STOP Sleep Apnea - technology development intern: STOP Sleep Apnea - technology development intern Hx Hypertension Yes: on meds 01/17/25 08:53 Hx Sleep Apnea No 01/17/25 08:53 CPAP BIPAP Do you snore loudly (louder No 01/17/25 08:53 than talking or can be heard Do you often feel tired/ No 01/17/25 08:53 fatigued/ sleepy during daytime? Has anyone observed you stop No 01/17/25 08:53 breathing during sleep? STOP Results Negative 01/17/25 08:53 QUESTION #5 FULL TEXT : Do you snore loudly (louder than talking or can be heard through closed doors)? Tobacco Use History Tobacco Use History - technology development intern: Tobacco Use History - technology development intern Tobacco Use Smoking Status Never smoker 01/17/25 08:53 Hx Tobacco Use No 01/17/25 08:53 Years Smoking Packs Smoked per Day Smoking Cessation Date was within the last 15 years Hx Smoking Cessation Date Hx Smoking Cessation Counseling Hematologic Medial History Hematologic Hx - technology development intern: Hematologic Medical Hx - admittance attendant Hx of Blood Transfusion No 01/17/25 08:53 Hx of Transfusion in last 3 No 01/17/25 08:53 Months Date of Last Transfusion (if within last 3 months) Ever experience any problems No 01/17/25 08:53 with transfusion(s)? Specify any problems Hx of Preganancy in last 3 No 01/17/25 08:53 Months Nurse Filling Out Transfusion JZOLLBROOKE 01/17/25 08:53 & Questions: Date: 01/17/25 01/17/25 08:53 Time: 08:55 01/17/25 08:53 Patient unable to answer at this time (ie. confused, unrespo /Reproduction History /Reproductive History - technology development intern: /Reproductive Hx- technology development intern Hx Now No 01/17/25 08:53 Gestational Age (in weeks): EDC: Hx Hx Para Hx Section SAB No 01/17/25 08:53 PFSH Medical History (Updated 01/17/25 @ 09:21 by Laura Nieves) Sepsis Post-menopausal Depression Walker as ambulation aid Bladder disease Low iron Back pain Dietary restriction History of pain when walking History of transesophageal echocardiography (CHERI) Wears glasses Anxiety Restless legs History of hiatal hernia Gastric reflux History of IBS Non-smoker History of edema History of echocardiogram Cardiology follow-up encounter Left carotid bruit Postoperative atrial fibrillation H/o difficulty anesthesia Stomach inflammation Carotid stenosis Hyperlipidemia Hypertension Diabetes Asthma Arthritis Home Medications ?Medication ?Instructions ?Recorded ?Last Taken ?Type montelukast 10 mg tablet 10 mg PO QHS ASTHMA 05/21/16 01/24/24 22:00 History cetirizine 10 mg capsule (Zyrtec) 5 mg PO DAILY allergy symptoms 05/18/18 01/24/24 08:00 History 5 mg Al hyd-Mg tr-alg ac-sod bicarb 80 1 tab PO DAILY PRN GAS 05/22/19 01/22/24 History mg-14.2 mg chewable tablet (Gaviscon) metformin 1,000 mg 24 hr 1,000 mg PO BID DIABETES 05/22/19 01/24/24 20:00 History tablet,extended release (gastric reten.) albuterol sulfate 90 mcg/actuation 2 puff inhalation Q6H PRN 11/04/22 01/22/24 History aerosol inhaler Shortness Of Breath Or Wheezing aspirin 81 mg tablet,delayed 81 mg PO DAILY HEART HEALTH 12/21/22 01/25/24 04:45 History release (Adult Low Dose Aspirin) tramadol 50 mg tablet 50 mg PO 4X/DAY Pain 01/04/23 01/25/24 04:45 History glimepiride 4 mg tablet (Amaryl) 4 mg PO DAILY DIABETES 03/11/23 01/24/24 08:00 History rosuvastatin 10 mg tablet (Crestor) 10 mg PO QHS HLD 09/17/23 01/24/24 20:00 History omeprazole 40 mg capsule,delayed 40 mg PO BID GERD 10/12/23 01/24/24 20:00 History release pioglitazone 45 mg tablet (Actos) 45 mg PO DAILY DIABETES 01/11/24 01/24/24 08:00 History lisinopril 20 1 tab PO DAILY htn 01/25/24 01/25/24 04:45 History mg-hydrochlorothiazide 12.5 mg tablet triamcinolone acetonide 0.1 % 1 applic topical QDAY PRN SKIN 05/03/24 Unknown History topical cream ipratropium 0.5 mg-albuterol 3 mg 3 ml inhalation Q20M PRN shortness 08/29/24 Unknown History (2.5 mg base)/3 mL nebulization of breath or wheezing soln nystatin 100,000 unit/gram topical 1 applic topical TID PRN YEAST 09/18/24 Unknown Rx powder (Nystop) INFECTION #15 mg sitagliptin phosphate 100 mg 100 mg PO QDAY diabetic 10/25/24 Unknown History tablet (Januvia) acetaminophen 500 mg tablet 1,000 mg PO TID PRN pain 01/17/25 Unknown History (Tylenol Extra Strength) calcium carb-ergocalciferol (vit 2 tab PO BID supplement 01/17/25 Unknown History D2) 500 mg (1,250 mg)-200 unit tablet multivitamin with minerals-folic 1 tab PO DAILY supplement 01/17/25 Unknown History acid 120 mcg chewable tablet (Adult Multivitamin Gummies) Allergy/AdvReac Type Severity Reaction Status Date / Time doxycycline Allergy Mild unknown Verified 01/17/25 08:27 sulfamethoxazole (From Allergy Mild unknown Verified 01/17/25 08:27 Bactrim) trimethoprim (From Bactrim) Allergy Mild unknown Verified 01/17/25 08:27 amoxicillin (From Augmentin) Allergy Hives Verified 01/17/25 08:27 cefprozil (From Cefzil) Allergy Hives Verified 01/17/25 08:27 clavulanic acid (From Allergy Hives Verified 01/17/25 08:27 Augmentin) dextromethorphan (From Allergy Hives Verified 01/17/25 08:27 NyQuil) doxylamine (From NyQuil) Allergy Hives Verified 01/17/25 08:27 erythromycin base Allergy Hives Verified 01/17/25 08:27 gatifloxacin (From Tequin) Allergy Hives Verified 01/17/25 08:27 lincomycin Allergy Hives Verified 01/17/25 08:27 metoclopramide (From Reglan) Allergy Other Verified 01/17/25 08:27 pseudoephedrine (From NyQuil) Allergy Hives Verified 01/17/25 08:27 empagliflozin (From AdvReac Severe UTI/sepsis Verified 01/17/25 08:27 Jardiance) morphine AdvReac Intermediate tachycardia Verified 01/17/25 08:27 Family History Father No problems noted. Mother CVA (cerebral vascular accident) Heart disease Sister Colon cancer Diabetes Brother Thyroid disorder Thyroid cancer Sister Cancer vaginal Diabetes Brother Diabetes Surgical History Hx of vascular surgery Hx of right cataract extraction Hx of left cataract extraction History of colonoscopy History of esophagogastroduodenoscopy (EGD) History of cardiac catheterization H/O removal of cyst History of lumpectomy H/O knee surgery History of coronary artery bypass graft x 3 (~11/26/22) fallopian tube surgery Hx of cholecystectomy H/O oophorectomy H/O tubal ligation History of ear surgery Social History household members: spouse housing: house Smoking Status: Never smoker alcohol intake: never substance use type: does not use caffeine: Yes what type of physical activity do you participate in: walking frequency: 3-4 times per week seatbelt use: always do you feel safe at home: Yes additional social history: [place] Patient and both retired Audit: Pertinent Findings Pertinent Findings EKG Perinent findings: 01/22/2025. Normal sinus rhythm 87 bpm inferior infarct, age undetermined. Echo (EF%) pertinent findings: 11/10/2022. EF 70%. Consult pertinent findings: Cardiology 11/28/2024. History of coronary artery bypass graft x 3. 11/26/2022. No further symptoms of chest pain. Continue medical management. Postoperative atrial fibrillation after CABG. Patient has not had any recurrence. Hypertension. Recommendation Anesthesia Recommendation Anesthesia recommendation: OPTIMIZED for anesthesia
[2025-01-23 05:07] LABS: Hepatitis A AB, Total Negative (Negative)
[2025-01-31] VITALS (19 sets, daily range): BP systolic 101–180; BP diastolic 45–89; PULSE 78–94; RESP 14–28; TEMP 35.8–36.8; O2SAT 89–98; BMI 34.2
--- OUTSIDE RECORDS SUMMARY | 2025-01-31 05:26 | XMS RPT_ITS | CCD ---
Author Organization [facility] Care Team Providers Care Broom Bundler Name Role Phone EBER Mena RN, Judi Alvarado Unavailable Unavailabl e Yvon HYDROLOGIC MODELER, Chanda S Unavailable [phone] Yvon HYDROLOGIC MODELER, Chanda S Unavailable [phone] Sarah William MD Unavailable [phone] Kali Bacon MD Primary Care Provider Guero Diaz Unavailable Kali Bacon MD Primary Care Provider Guero Diaz Unavailable Kali Bacon MD Primary Care Provider Guero Diaz Unavailable Dr. Kali Bacon Primary Care Provider Dr. Kali Bacon Referring Provider SHANKAR Sanz NP Attending Provider [phone] Dr. Kali Bacon Primary Care Provider Dr. Kali Bacon Referring Provider Yvon RODRIGUEZ NP-Lawrence Armas Attending Provider [phone] Dr. Sarah William Attending Provider [phone] Dr. Leo Rubio Attending Provider [phone] Kali Bacon Primary Care Provider ADRIANNE SETHI Attending Unavailable KALI BACON Primary Care Unavailable KALI BACON Primary Care Unavailable AZIKEN, ADRIANNE Attending Unavailable LESKOSKY, ELSIE Referring Unavailable JORDI, KALI Primary Care Unavailable LESKOSKY, ELSIE Referring Unavailable JORDI, KALI Primary Care Unavailable LESKOSKY, ELSIE Referring Unavailable JORDI, KALI Primary Care Unavailable DESMETT, ISABELLA Referring Unavailable JORDI, KALI Primary Care Unavailable LESKOSKY, ELSIE Referring Unavailable JORDI, KALI Primary Care Unavailable LESKOSKY, ELSIE Referring Unavailable JORDI, KALI Primary Care Unavailable LESKOSKY, ELSIE Referring Unavailable JORDI, KALI Primary Care Unavailable AZIKEN, ADRIANNE Admitting Unavailable AZIKEN, ADRIANNE Attending Unavailable JORDI, KALI Primary Care Unavailable BRIAN, XAVIER Consulting Unavailable DESMETT, ISABELLA Consulting Unavailable LESKOSKY, ELSIE Referring Unavailable JORDI, KALI Primary Care Unavailable JECKEL MONICA Attending Unavailable JECKEL MONICA Referring Unavailable JORDI, KALI Primary Care Unavailable LESKOSKY, ELSIE Attending Unavailable JORDI, KALI Primary Care Unavailable ALEJANDRA OLEARY Attending Unavailable JORDI, KALI Primary Care Unavailable JORDI, KALI JENNIFER Primary Care Unavailab HUEY Hansen Attending Unavailable LY, TOSIN Referring Unavailable LY, TOSIN Referring Unavailable JORDI, KALI JENNIFER Primary Care Unavailab Dr. Kali Perry Primary Care Provider Dr. Kali Bacon Referring Provider Mansoor GRGIGS, PA Migdalia Rose Attending Provider Kali Bacon MD Primary Care Provider Guero Diaz Unavailable Dr. Kali Bacon Primary Care Provider Dr. Kali Bacon Referring Provider Dr. Lamine Payan Attending Provider [phone] Lamine Payan Other Provider [phone] Dr. Leo Rubio Attending Provider Dr. Isai Ornelas Referring Provider Guero Diaz MD Unavailable Kali Bacon MD Primary Care Provider Dr. Kali Bacon Primary Care Provider Dr. Kali Bacon Referring Provider Dr. Sarah William Attending Provider [phone] Mansoor GRIGGS, PA Migdalia Rose Attending Provider Dr. Abraham Gilbert Attending Provider [phone] Dr. Kali Bacon Primary Care Provider Dr. Kali Bacon Referring Provider Dr. Sarah William Attending Provider [phone] Mansoor GRIGGS, PA Migdalia Rose Attending Provider Dr. Abraham Gilbert Attending Provider [phone] INDU Severino Referring Provider INDU Carbajal Attending Provider [phone] Kali Bacon MD Primary Care Provider Raul RN, Kaela Unavailable Unavailable Joel Acuna Unavailable Felicitas VELÁZQUEZ, Lovely R Unavailable Unavailable Dr. Kali Bacon MD Primary Care Provider Raven PAGenesis Attending Provider [phone] Raven GRIGGS Genesis Referring Provider [phone] Dr. Abraham Gilbert MD Attending Provider [phone] Dr. Dominic Issa MD Attending Provider Dr. Dominic Issa MD Referring Provider Dr. Kali Bacon MD Referring Provider Dr. Yany Amrendariz MD Attending Provider Migdalia Severino Attending Provider [phone] Migdalia Severino Referring Provider [phone] Ramiro CHANEY, Dr. Bailey Attending Provider [phone] vYon RODRIGUEZ-CChanda Attending Provider [phone] Yvon HYDROLOGIC MODELER-C, Chanda Referring Provider Noel CHANEY, Dr. Escobar Attending Provider Noel CHANEY, Dr. Escobar Referring Provider Jordi CHANEY, Dr. Bass Primary Care Provider Carbajal PA, Genesis Attending Provider Raven PA, Genesis Referring Provider Vladimir CHANEY, Dr. Rosario Attending Provider Luis Manuel CHANEY, Dr. Alfaro Attending Provider Luis Manuel CHANEY, Dr. Alfaro Referring Provider Jordi CHANEY, Dr. Bass Referring Provider Marcello CHANEY, Dr. Slade Attending Provider MaxMigdalia Pena Attending Provider Migdalia Severino Referring Provider Ramiro CHANEY, Dr. Bailey Attending Provider [place] HYDROLOGIC MODELER-C, Chanda Attending Provider Yvon HYDROLOGIC MODELER-C, Chanda Referring Provider Noel CHANEY, Dr. Escobar Attending Provider Noel CHANEY, Dr. Escobar Referring Provider Dr. Monica Rothman DO Attending Provider Dr. Monica Rothman DO Referring Provider MONICA BEY Attending KALI Lemus [facility] HALIE Guerin Referring Unavailable Felicitas RN, Lovely Bacon MD, Dr. Bass Primary Care Provider Luis Manuel CHANEY, Dr. Alfaro Attending Provider Dr. Dominic Issa MD Referring Provider Dr. Kali Bacon MD Referring Provider Ramiro CHANEY, Dr. Bailey Attending Provider Raven PA, Genesis Attending Provider Raven GRIGGS, Genesis Referring Provider Vladimir CHANEY, Dr. Rosario Attending Provider Dr. Kali Bacon MD Primary Care Provider Luis Manuel CHANEY, Dr. Alfaro Attending Provider KALI BACON Attending Unavailab le JORDI, KALI RODRIGUEZ Primary Care Unavailab le JORDI, KALI RODRIGUEZ Attending Unavailab le JORDI, KALI RODRIGUEZ Primary Care Unavailab le JORDI, KALI RODRIGUEZ Attending Unavailab le JORDI, KALI RODRIGUEZ Primary Care Unavailab le JORDI, KALI RODRIGUEZ Referring Unavailab le JORDI, KALI RODRIGUEZ Primary Care Unavailab le JORDI, KALI RODRIGUEZ Attending Unavailab le JORDI, KALI RODRIGUEZ Primary Care Unavailab le JORDI, KALI RODRIGUEZ Primary Care Unavailab le JORDI, KALI RODRIGUEZ Attending Unavailab le JORDI, KALI RODRIGUEZ Primary Care Unavailab le JORDI, KALI RODRIGUEZ Attending Unavailab le JORDI, KALI RODRIGUEZ Primary Care Unavailab le JORDI, KALI RODRIGUEZ Attending Unavailab le JORDI, KALI RODRIGUEZ Primary Care Unavailab le JORDI, KALI RODRIGUEZ Referring Unavailab le JORDI, KALI RODRIGUEZ Primary Care Unavailab le JORDI, KALI RODRIGUEZ Attending Unavailab le JORDI, KALI RODRIGUEZ Primary Care Unavailab le Migdalia Severino Referring Unavail able Migdalia Severino Attending Unavail able Jordi, Kali Primary Care Unavailable Carbajal, Genesis Attending Unavailable Carbajal, Genesis Referring Unavailable Jordi, Kali Primary Care Unavailable Issa, Dominic Attending Unavailable Issa, Dominic Referring Unavailable Jordi, Kali Primary Care Unavailable Carbajal, Genesis Referring Unavailable Carbajal, Genesis Attending Unavailable Jordi, Kali Primary Care Unavailable Issa, Dominic Referring Unavailable Issa, Dominic Attending Unavailable Jordi, Kali Primary Care Unavailable Jordi, Kali Primary Care Unavailable Yvon HYDROLOGIC MODELER, Chanda Attending Unavailable Yvon HYDROLOGIC MODELER, Chanda Referring Unavailable Issa, Dominic Referring Unavailable Issa, Dominic Admitting Unavailable Issa, Dominic Attending Unavailable Jordi, Kali Primary Care Unavailable Jordi, Kali Referring Unavailable Jordi, Kali Primary Care Unavailable Mansoor GRIGGS, Migdalia Rose Attending Unavail able Jordi, Kali Referring Unavailable Jordi, Kali Primary Care Unavailable Vande Velde Monica Attending Unavailabl e Issa, Dominic Attending Unavailable Jordi, Kali Referring Unavailable Jordi, Kali Primary Care Unavailable Jordi, Kali Referring Unavailable Jordi, Kali Primary Care Unavailable Yvon HYDROLOGIC MODELER, Chanda Attending Unavailable Issa, Dominic Attending Unavailable Jordi, Kali Referring Unavailable Jordi, Kali Primary Care Unavailable Jordi, Kali Primary Care Unavailable Vandmaira Lomeli Monica Attending Unavailabl e Vande Velde, Monica Referring Unavailabl e Jordi, Kali Primary Care Unavailable Basali Ayman Attending Unavailable Basali, Ayman Referring Unavailable Jordi, Kali Primary Care Unavailable Yvon HYDROLOGIC MODELER, Chanda Attending Unavailable [place] HYDROLOGIC MODELER, Chanda Referring Unavailable Jordi, Kali Primary Care Unavailable Carbajal, Genesis Attending Unavailable Carbajal, Genesis Referring Unavailable Jordi, Kali Primary Care Unavailable Migdalia Severino Referring Unavail able Migdalia Severino Attending Unavail able Jordi, Kali Referring Unavailable Carbajal, Genesis Attending Unavailable Jordi, Kali Primary Care Unavailable Jordi, Kali Primary Care Unavailable Ramiro, Leo Attending Unavailable Issa, Dominic Attending Unavailable Jordi, Kali Referring Unavailable Jordi, Kali Primary Care Unavailable Ramiro, Leo Attending Unavailable Jordi, Kali Referring Unavailable Jordi, Kali Primary Care Unavailable Issa, Dominic Referring Unavailable Issa, Dominic Admitting Unavailable Issa, Dominic Attending Unavailable Abelardo Aguilar Consulting Unavailable Jordi, Kali Primary Care Unavailable Issa, Dominic Referring Unavailable Issa, Dominic Attending Unavailable Jordi, Kali Primary Care Unavailable Jordi, Kali Primary Care Unavailable Ramiro, Leo Attending Unavailable Issa, Dominic Attending Unavailable Jordi, Kali Referring Unavailable Jordi, Kali Primary Care Unavailable Jordi, Kali Referring Unavailable Migdalia Severino Attending Unavail able Jordi, Kali Primary Care Unavailable Jordi, Kali Referring Unavailable Carbajal, Genesis Attending Unavailable Jordi, Kali Primary Care Unavailable Ramiro, Bolivar Attending Unavailable Jordi, Kali Primary Care Unavailable Migdalia Severino Referring Unavail able Abraham Gilbert Attending Unavailable Jordi, Kali Primary Care Unavailable Vladimir Abraham Attending Unavailable Carbajal, Genesis Referring Unavailable Jordi, Kali Primary Care Unavailable [place], Abraham Attending Unavailable CarbajalAlexGenesis Referring Unavailable Jordi, Kali Primary Care Unavailable Dominic Issa Referring Unavailable Yany Armendariz Attending Unavailable Jordi, Kali Primary Care Unavailable Dominic Issa Attending Unavailable Jordi, Kali Referring Unavailable Jordi, Kali Primary Care Unavailable Migdalia Severino Attending Unavail able Migdalia Severino Referring Unavail able Jordi, Kali Primary Care Unavailable JORDI, KALI JENNIFER Primary Care Unavailab le SALVADOR, FANNY Attending Unavailable KALI BACON Primary Care Unavailab le JORDI, KALI RODRIGUEZ Referring Unavailab le JORDIKALI Primary Care Unavailab le SALVADOR, FANNY Referring Unavailable JORDIKALI Primary Care Unavailab HALIE Guerin Attending Unavailable KALI BACON Primary Care Unavailab le JORDI, KALI RODRIGUEZ Primary Care Unavailab le KALI BACON Referring Unavailab le KALI BACON Referring Unavailab le JORDIKALI Primary Care Unavailab le KALI BACON Referring Unavailab le JORDIKALI Primary Care Unavailab le YOVANY BARRONIANNA Referring Unavailable KALI BACON Primary Care Unavailab AMBAR Oleary Admitting Unavailable KALI BACON Primary Care Unavailab LUDMILA Velazco Attending Unavailabl e KALI BACON Primary Care Unavailab le JORDIKALI Primary Care Unavailab le JORDIKALI Primary Care Unavailab le JORDI, KALI RODRIGUEZ Primary Care Unavailab le JORDIKALI Referring Unavailab le JORDIKALI Primary Care Unavailab le JORDI, KALI RODRIGUEZ Primary Care Unavailab le JORDIKALI Referring Unavailab le JORDIKALI Referring Unavailab le JORDI, KALI RODRIGUEZ Primary Care Unavailab le JORDI, KALI RODRIGUEZ Primary Care Unavailab le JORDI, KALI RODRIGUEZ Primary Care UnavailKALI Nelson Referring Unavailab FANNY Harley Attending Unavailable KALI BACON Referring Unavailab KALI Perry Primary Care Unavailab le Allergies Allergy Classification Reported Allergen(s) Allergy Type Date of Onset Reaction(s) Facility Acetaminophen (2 sources) Acetaminophen Drug Allergy 04-07-20 23 Unknown [facility] Adrenergic Agonists (2 sources) Pseudoephedrine Drug [facility] 02-01-20 [facility] Amoxicillin / Clavulanate (2 sources) Amoxicillin / Clavulanate Drug Allergy 04-27-20 18 Rash [facility] Cephalosporins (antibiotic) (2 sources) cefprozil Drug Allergy 04-27-20 18 Rash [facility] Chlorpheniramine / Pseudoephedrine (2 sources) Chlorpheniramine / Pseudoephedrine Drug Allergy 04-27-20 18 [facility] Dextromethorphan (2 sources) Dextromethorphan Drug Allergy 02-01-20 17 [facility] DOPamine Antagonists (4 sources) Metoclopramide Drug Allergy 02-01-20 17 Unknown, Intolerance [facility] Doxycycline (2 sources) Doxycycline Drug Allergy 11-29-19 19 Unknown, Vomiting [facility] Doxylamine (2 sources) Doxylamine Drug Allergy 02-01-20 17 [facility] Iodine (and Iodine containting drugs) (2 sources) Iodine Drug Allergy 04-27-20 18 Unknown [facility] Lincomycin (2 sources) Lincomycin Drug Allergy 04-27-20 18 Rash [facility] Macrolides (antibiotic) (2 sources) Erythromycin Drug Allergy 04-27-20 18 Rash [facility] Opioid Agonists (2 sources) Morphine Drug Allergy 07-24-20 20 Unknown [facility] Quinolones (antibiotic) (2 sources) gatifloxacin Drug Allergy 04-27-20 18 Rash [facility] Sulfamethoxazole / Trimethoprim (2 sources) Sulfamethoxazole / Trimethoprim Drug Allergy 04-01-20 17 Unknown [facility] (5 sources) amoxicillin / clavulanate drug allergy 04-01-20 17 [facility] (5 sources) cefprozil drug allergy 04-01-20 17 [facility] (5 sources) Contrast media drug allergy 04-01-20 17 [facility] (9 sources) erythromycin; Translations: [ERYTHROMYCIN] drug allergy 04-01-20 17 [facility] (5 sources) gatifloxacin drug allergy 04-01-20 17 [facility] (20 sources) lincomycin; Translations: [LINCOMYCIN] drug allergy 02-01-20 17 [facility] (5 sources) lincomycin drug allergy 04-01-20 17 [facility] (5 sources) metoclopramide drug allergy 04-01-20 17 [facility] (5 sources) sulfamethoxazole / trimethoprim drug allergy 04-01-20 17 [facility] (5 sources) VICKS DAYQUIL/NYQUIL COUGH drug allergy 04-01-20 17 [facility] (20 sources) Acetaminophen; Translations: [ACETAMINOPHEN] Drug Allergy 07-24-20 21 Unknown [facility] (20 sources) Amoxicillin Drug Allergy 02-01-20 17 [facility] (20 sources) cefprozil; Translations: [CEFPROZIL] Drug Allergy 04-27-20 18 [facility] Work Phone: (20 sources) Clavulanate; Translations: [CLAVULANIC ACID] Drug Allergy 02-01-20 17 [facility] (20 sources) Dextromethorphan; Translations: [DEXTROMETHORPHAN] Drug Allergy 02-01-20 17 [facility] (20 sources) Doxycycline; Translations: [DOXYCYCLINE] Drug Allergy 11-29-19 19 Unknown, Vomiting, Vomiting Only [facility] (20 sources) Doxylamine; Translations: [DOXYLAMINE] Drug Allergy 02-01-20 17 [facility] (20 sources) Erythromycin Drug Allergy 04-01-20 17 [facility] Work Phone: (20 sources) gatifloxacin; Translations: [GATIFLOXACIN] Drug Allergy 04-27-20 18 [facility] Work Phone: (20 sources) Ibuprofen; Translations: [IBUPROFEN] Drug Allergy 02-01-20 17 Other: See Comments [facility] (20 sources) Metoclopramide; Translations: [METOCLOPRAMIDE] Drug Allergy 02-01-20 17 Other: See Comments, Other, Unknown [facility] (20 sources) Morphine; Translations: [MORPHINE] Drug Allergy 07-24-20 20 Other: See Comments, [facility] (20 sources) Pseudoephedrine; Translations: [PSEUDOEPHEDRINE] Drug Allergy 02-01-20 17 [facility] (20 sources) Sulfamethoxazole; Translations: [SULFAMETHOXAZOLE] Drug Allergy 05-22-20 19 [facility] (20 sources) Trimethoprim; Translations: [TRIMETHOPRIM] Drug Allergy 05-22-20 19 [facility] (20 sources) Iodinated Contrast Media; Translations: [IODINATED CONTRAST MEDIA] Allergy to substance 05-22-20 19 [facility] (7 sources) CHOLESTEROL MEDS Allergy to substance 07-24-20 21 Other [facility] (20 sources) Amoxicillin / Clavulanate; Translations: [AMOXICILLIN-POT CLAVULANATE] Drug Allergy 04-27-20 18 [facility] Work Phone: (20 sources) Chlorpheniramine / Pseudoephedrine; Translations: [DAYQUIL ALLERGY 12-HR] Drug Allergy 04-27-20 18 [facility] Work Phone: [phone] (20 sources) Iodine; Translations: [IODINE] Drug Allergy 04-27-20 18 Other: See Comments, [facility] Work Phone: (20 sources) Metoclopramide; Translations: [METOCLOPRAMIDE HCL] Drug Allergy 04-27-20 18 [facility] Work Phone: (20 sources) Sulfamethoxazole / Trimethoprim; Translations: [SULFAMETHOXAZOLE-T RIMETHOPRIM] Drug Allergy 04-01-20 17 Other: See Comments, [facility] (16 sources) Cefprozil Allergy to substance 02-01-20 17 [facility] (16 sources) Gatifloxacin Allergy to substance 02-01-20 17 [facility] (16 sources) HMG-CoA reductase inhibitor Drug Allergy 02-01-20 17 [facility] (16 sources) Sulfamethoxazole Allergy to substance 05-22-20 19 [facility] (14 sources) Jwzowdufgjfkn-Dj-Pi -Apap Propensity to adverse reactions 11-21-19 23 [facility] (13 sources) Vyjrmeh-Xmj-Ksm Reductase Inhibitor Allergy to substance 12-01-19 23 Other [facility] (20 sources) HMG-CoA reductase inhibitor; Translations: [XAYRYQD-HMU-DAE REDUCTASE INHIBITORS] Drug Allergy 02-01-20 Unknown [facility] (20 sources) empagliflozin; Translations: [EMPAGLIFLOZIN] Drug Allergy 10-26-19 Unknown [facility] (1 source) Amoxicillin Drug Allergy 01-27-20 [facility] (1 source) cefprozil Drug Allergy 01-27-20 [facility] (1 source) Clavulanate Drug Allergy 01-27-20 [facility] (1 source) Dextromethorphan Drug Allergy 01-27-20 [facility] (1 source) Doxycycline Drug Allergy 01-27-20 [facility] (1 source) Doxylamine Drug Allergy 01-27-20 [facility] (1 source) empagliflozin Drug Allergy 01-27-20 [facility] (1 source) Erythromycin Drug Allergy 01-27-20 [facility] (1 source) gatifloxacin Drug Allergy 01-27-20 [facility] (1 source) Metoclopramide Drug Allergy 01-27-20 [facility] (1 source) Morphine Drug Allergy 01-27-20 [facility] (1 source) Pseudoephedrine Drug Allergy 01-27-20 [facility] (1 source) Sulfamethoxazole Drug Allergy 01-27-20 [facility] (1 source) Trimethoprim Drug Allergy 01-27-20 [facility] Medications Current Medications Medication Drug Class(es) Dates Sig (Normalized) Sig (Original) acetaminophen 500 mg oral tablet (4 sources) Start: 01-17-2025 take 2 tablets by mouth three times daily as needed for pain Acetaminophen (Tylenol Extra Strength) 500 mg tablet Active 1000 mg PO THREE TIMES A DAY as needed for pain January 17, 2025 12:00am Start: 12-01-2022 End: 12-11-2022 take 2 tablets by mouth every eight hours acetaminophen (Tylenol) 500 MG tablet Take 2 tablets (1,000 mg) by mouth in the morning and 2 tablets (1,000 mg) at noon and 2 tablets (1,000 mg) before bedtime. Do all this for 10 days. 60 tablet 0 12/01/2022 12/11/2022 Active Al Hyd-Mg Tr-Alg Ac-Sod Bicarb (Gaviscon) 80-14.2 mg tablet,chewable (4 sources) Start: 05-22-2019 Al Hyd-Mg Tr-Alg Ac-Sod Bicarb (Gaviscon) 80-14.2 mg tablet,chewable Active 1 {tbl} PO DAILY as needed for GAS May 22, 2019 12:00am albuterol 0.83 mg/ml inhalation solution (20 sources) beta2-Adrener gic Agonist Start: 07-26-2024 End: 08-29-2024 take 1 dose by inhalation every six hours as needed albuterol (PROVENTIL) 2.5 mg /3 mL (0.083 %) nebulizer solution INHALE WITH 1 VIAL IN NEBULIZER EVERY SIX HOURS NEEDED 90 mL 3 08/29/2024 Active Start: 11-04-2022 Albuterol Sulf ate 90 mcg/actuation HFA aerosol inhaler Active 2 NMA INHALATION EVERY 6 HOURS as needed for Shortness Of Breath Or Wheezing November 04, 2022 12:00am Start: 11-04-2022 take 1 puff(s) by in halation every six hours Albuterol Sulfate Active 2 PUFF INHALATION EVERY 6 HOURS November 04, 2022 12:00am Start: 03-09-2020 End: 01-27-2023 take 1 dose by inhalation every six hours as needed albuterol (PROVENTIL) 2.5 mg /3 mL (0.083 %) nebulizer solution INHALE WITH 1 VIAL IN NEBULIZER EVERY SIX HOURS NEEDED 30 mL 3 01/27/2023 Active albuterol 0.63 M G/3ML nebulizer solution Take 1 ampule by nebulization every 6 hours as needed. 0 Active End: 10-24-2022 Albuterol Sulfate 0.63 mg/3 mL nebulizer solution 1 Ampule. 0 10/24/2022 Discontinued Comment on above: INHALE WITH 1 VIAL I N NEBULIZER EVERY SIX HOURS NEEDED 1 Ampule. albuterol 0.833 mg/ml / ipratropium bromide 0.167 mg/ml inhalation solution (5 sources) Anticholinergic, beta2-Adrenergic Agonist Start: 08-29-2024 Ipratropium-Albuterol 0.5 mg-3 mg(2.5 mg base)/3 mL solution for nebulization Active 3 mL INHALATION Q20M as needed for shortness of breath or wheezing August 29, 2024 1:00am for 3 doses aluminum hydroxide 80 mg / magnesium trisilicate 14.2 mg chewable tablet (20 sources) Start: 05-22-2019 Al Hyd-Mg Tr-Alg Ac-Sod Bicarb (Gaviscon) 80-14.2 mg tablet,chewable Active 1 {tbl} PO DAILY as needed for GAS May 21, 2019 11:00pm Start: 05-22-2019 Al Hyd-Mg Tr-A lg Ac-Sod Bicarb (Gaviscon) 80-14.2 mg tablet,chewable Active TABLET PO May 22, 2019 12:00am amiodarone hydrochloride 200 mg oral tablet (6 sources) Antiarrhythmic Start: 12-21-2022 take 200 mg by mouth once daily Amiodarone Active 200 MG PO DAILY December 21, 2022 12:00am Start: 12-01-2022 End: 01-12-2023 take 2 tablets by mouth twice daily, then take 2 tablets by mouth once daily, then take 1 tablet by mouth once daily amiodarone (Pacerone) 200 MG tablet Take 2 tablets (400 mg) by mouth 2 times daily for 5 days, THEN 2 tablets (400 mg) daily for 7 days, THEN 1 tablet (200 mg) daily. 64 tablet 0 12/01/2022 12/25/2022 Discontinued (Therapy completed) aspirin 81 mg delayed release oral tablet (20 sources) Platelet Aggregation Inhibitor, Nonsteroidal Anti-inflammatory Drug Start: 12-02-2022 End: 03-02-2023 Aspirin (Adult Low Dose Aspirin) 81 mg tablet,delayed release (DR/EC) Active 81 mg PO DAILY December 21, 2022 12:00am Comment on above: Take 81 mg by mouth once daily. benzocaine/benzet hon Cl (DERMOPLAST ANTIBACTERIAL TOPICAL) (20 sources) benzocaine/benze th on Cl (DERMOPLAST ANTIBACTERIAL TOPICAL) Apply to affected area as needed. Active benzonatate 100 mg oral capsule (20 sources) Non-narcotic Antitussive Start: 09-20-2024 take 1 capsule by mouth every eight hours as needed benzonatate (TESSALON PERLE) 100 mg capsule Take 1 capsule by mouth three times a day as needed. 30 capsule 09/20/2024 Active budesonide 0.25 mg/ml inhalation suspension (20 sources) Corticosteroid Start: 06-11-2023 budesonide (PULMICORT) 0.5 mg/2 mL nebulizer solution mix 2 ampules with saline and apply twice daily 06/11/2023 Active Comment on above: mix 2 ampules with s jayshree and apply twice daily 168 hr buprenorphine 0.005 mg/hr transdermal system (4 sources) Partial Opioid Agonist Start: 05-28-2021 apply 1 dose transdermal route every week Buprenorphine Active 1 PATCH TD Q7D May 27, 2021 11:00pm Calcium (16 sources) Phosphate Binder, Calcium take 1 tablet by mouth once daily calcium 500 MG tablet Take 500 mg by mouth daily. 0 Suspended take 1 tablet by mouth once serena y calcium 500 MG tablet Take 500 mg by mouth daily. 0 Active Calcium Carbonate-Vitamin D2 500 mg(1,250mg) -200 unit tablet (2 sources) Start: 01-17-2025 Calcium Carbonate-Vitamin D2 500 mg(1,250mg) -200 unit tablet Active 2 {tbl} PO TWICE A DAY January 17, 2025 12:00am cetirizine hydrochloride 10 mg oral capsule (20 sources) Histamine-1 Receptor Antagonist Start: 05-18-2018 take 5 mg by mouth once daily Cetirizine (Zyrtec) 10 mg capsule Active 5 mg PO DAILY May 18, 2018 12:00am Start: 05-18-2018 take 1 capsule by mo [facility] once daily Cetirizine (Zyrtec) 10 mg capsule Active 10 MG PO DAILY May 18, 2018 12:00am Start: 05-18-2018 Cetirizine (Zy rtec) 10 mg capsule Active PO May 17, 2018 11:00pm Start: 04-01-2017 ZYRTEC ALLERGY 10 MG CAPS use as directed CETIRIZINE HCL [id number] Chanda Sanz HYDROLOGIC MODELER Start: 04-01-2017 ZYRTEC ALLERGY 10 MG CAPS use as directed CETIRIZINE HCL [id number] Chanda Sanz HYDROLOGIC MODELER take 1 tablet by parish once daily cetirizine HCl (ZYRTEC ORAL) Take 1 tablet by mouth once daily. Active cetirizine HCl ( ZYRTEC ORAL) Take by mouth. Active cetirizine HCl ( ZYRTEC ORAL) Take by mouth. 0 Active Comment on above: Take by mouth. ciprofloxacin 500 mg oral tablet (20 sources) Quinolone Antimicrobial Start: 09-29-19 End: 10-08-19 take 1 tablet by mouth twice daily ciprofloxacin HCl (CIPRO) 500 mg tablet Take 1 tablet by mouth two times a day for 9 days. 18 tablet 09/29/2024 10/08/2024 Active Start: 05-23-2017 End: 05-18-2018 take 1 tablet by mouth twice daily Ciprofloxacin Hcl 500 MG tablet Discontinued 500 mg PO TWICE A DAY May 23, 2017 12:00am May 18, 2018 10:08am diclofenac sodium 0.01 mg/mg topical gel (20 sources) Nonsteroidal Anti-inflammatory Drug diclofenac (VOLTAREN) 1 % topical gel Apply to affected area four times daily. Active Comment on above: Apply to affected ar ea four times daily. docosahexaenoic acid 120 mg / eicosapentaenoic acid 180 mg oral capsule (14 sources) take 1 capsule by mouth once daily omega-3 (Fish Oil) 1000 MG capsule Take 1,000 mg by mouth daily. 0 Active estradiol 0.1 mg/ml vaginal cream (20 sources) Estrogen Start: 021 Estradiol (Estrace) 0.01 % (0.1 mg/gram) cream Active 0 VAGINAL .COMPLEX 42.5 July 24, 2021 12:00am 1-2g every night vaginally x 2 weeks, then 1-3x weekly for maintenance Start: 05-18-2018 End: 05-22-2019 Estradiol (Estrace) 0.01 % ( 0.1 mg/gram) cream Discontinued 0 VAGINAL .COMPLEX 42.5 May 18, 2018 12:00am May 22, 2019 11:18am pea sized amount VAGINAL every other day X 4 weeks then twice a week; Start: 05-18-2018 End: 05-22-2019 Estradiol (Estrace) 0.01 % ( 0.1 mg/gram) cream Discontinued 0 VAGINAL .COMPLEX 42.5 May 18, 2018 12:00am May 22, 2019 11:18am pea sized amount VAGINAL every other day X 4 weeks then twice a week; fluconazole 150 mg oral tablet (20 sources) Azole Antifungal Start: 10-09-2024 End: 10-10-2024 take 1 tablet by mouth once daily fluconazole (DIFLUCAN) 150 mg tablet Indications: Vaginal itching Take 1 tablet by mouth once daily for 1 day. 1 tablet 10/09/2024 10/10/2024 Active Start: 09-01-2023 take 1 tablet by [facility] two times weekly fluconazole (DIFLUCAN) 150 mg tablet Take 1 tablet by mouth two times a week. 8 tablet 09/01/2023 Active Start: 06-12-2023 End: 06-13-2023 take 1 tablet by mouth once daily fluconazole (DIFLUCAN) 150 mg tablet Take 1 tablet by mouth once daily for 1 day. 1 tablet 0 06/12/2023 06/13/2023 Active Start: 01-18-2023 End: 02-01-2023 take 2 tablets by mouth once daily fluconazole (DIFLUCAN) 100 mg tablet Take 2 tablets by mouth once daily for 14 days. 28 tablet 0 01/18/2023 02/01/2023 Active Start: 12-14-2022 End: 12-28-2022 take 1 tablet by mouth once daily fluconazole (Diflucan) 100 MG tablet Take 1 tablet (100 mg) by mouth daily for 14 days. 14 tablet 0 12/14/2022 12/25/2022 Discontinued (Therapy completed) Comment on above: Take 2 tablets by mo [facility] once daily for 14 days. Take 1 tablet by parish th once daily for 1 day. Take 1 tablet by parish th two times a week. furosemide 40 mg oral tablet (6 sources) Loop Diuretic Start: 12-21-2022 End: 12-29-2022 take 1 tablet by mouth once daily furosemide (Lasix) 40 MG tablet Take 1 tablet (40 mg) by mouth daily for 8 days. 8 tablet 0 12/21/2022 12/29/2022 Active Start: 12-02-2022 End: 12-10-2022 take 1 tablet by mouth once daily furosemide (Lasix) 40 MG tablet Take 1 tablet (40 mg) by mouth daily for 5 days. Do not start before December 02, 2022. 5 tablet 0 12/02/2022 12/10/2022 Discontinued (Therapy completed) gel base no.41, bulk, (HYDROGEL) gel (20 sources) Start: 02-22-2023 gel base no.41, bulk, (HYDROGEL) gel 1 Dose once daily. 100 g 1 02/22/2023 Active Comment on above: 1 Dose once daily. gentamicin 3 mg/ml ophthalmic solution (1 source) Start: 09-05-2022 End: 09-12-2022 take 2 drop(s) into the eye(s) every four hours gentamicin (GENTAK) 0.3 % ophthalmic solution Use 2 Drops in the right eye every 4 hours for 7 days. 5 mL 0 09/05/2022 09/12/2022 Active Comment on above: Use 2 Drops in the r ight eye every 4 hours for 7 days. glimepiride 4 mg oral tablet (20 sources) Sulfonylurea Start: 05-22-2019 End: 09-18-2024 take 1 tablet by mouth once daily at breakfast glimepiride (AMARYL) 4 mg tablet Take 1 tablet by mouth daily with breakfast. 90 tablet 3 09/18/2024 Active Comment on above: Take 4 mg by mouth d aily with breakfast. Take 1 tablet by [facility] daily with breakfast. honey-hydrocolloid dressing (MEDIHONEY, HYDROCOLLOID-HONEY,) 4 X 5 bndg (5 sources) Start: 02-10-2023 End: 03-12-2023 honey-hydrocoll oid dressing (MEDIHONEY, HYDROCOLLOID-HO SHIRLEY,) 4 X 5 bndg Apply 1 Each to affected area once daily. 30 Each 1 02/10/2023 03/12/2023 Active Comment on above: Apply 1 Each to affe cted area once daily. hydroCHLOROthiazide 12.5 mg / lisinopril 20 mg oral tablet (20 sources) Thiazide Diuretic, Angiotensin Converting Enzyme Inhibitor Start: 01-24-2024 End: 01-23-2025 take 1 tablet by mouth once daily lisinopril-hydr oCHLOROthiazide (ZESTORETIC) 20-12.5 mg per tablet Take 1 tablet by mouth once daily. 90 tablet 3 01/24/2024 Active Start: 07-30-2022 End: 09-09-2022 take 1 tablet by mouth once daily lisinopril-hydroCHLOROthiazide (PRINZIDE,ZESTORETIC) 20-12.5 mg per tablet Take 1 tablet by mouth once daily. 90 tablet 3 07/30/2022 09/09/2022 Discontinued Start: 05-21-2016 End: 01-26-2023 Lisinopril-Hydrochlorothiazi de 1 TABLET tablet Discontinued 1 {tbl} PO TWICE A DAY May 21, 2016 12:00am December 21, 2022 11:07am Start: 05-21-2016 End: 12-21-2022 take 1 tablet by mouth twice daily Lisinopril-Hydrochlorothiazide Discontin ued 1 TABLET PO TWICE A DAY May 21, 2016 12:00am December 21, 2022 11:07am Comment on above: Take 1 tablet by [facility] once daily. Take 1 tablet by [facility] twice daily. hydrOXYzine hydrochloride 25 mg oral tablet (20 sources) Antihistamine Start: 09-29-19 take 1 tablet by mouth every twelve hours as needed hydrOXYzine HCl (ATARAX) 25 mg tablet Take 1 tablet by mouth every 12 hours as needed for anxiety. 15 tablet 09/29/2024 Active Start: 04-01-2017 take 1 tablet by [facility] once daily HYDROXYZINE PAMOATE 25 MG CAPS One tablet by mouth daily HYDROXYZINE PAMOATE [id number] Chanda Sanz NP Start: 01-31-2017 End: 05-22-2019 take 1 tablet by mouth once daily Hydroxyzine Hcl 25 MG tablet Discontinued 25 mg PO DAILY January 31, 2017 12:00am May 22, 2019 11:19am End: 07-30-2022 HYDROXYZINE PAMOATE ORAL German e by mouth. 0 07/30/2022 Discontinued HYDROXYZINE PAMO ATE ORAL Take by mouth. 0 Active Comment on above: Take by mouth. ibuprofen 800 mg oral tablet (1 source) Nonsteroidal Anti-inflammatory Drug Start: 3 End: 3 take 1 tablet by mouth every eight hours as needed ibuprofen (MOTRIN) 800 mg tablet Take 1 tablet by mouth three times daily as needed for pain for up to 7 days. 21 tablet 0 09/24/2022 10/01/2022 Active Comment on above: Take 1 tablet by [facility] three times daily as needed for pain for up to 7 days. ketoconazole 20 mg/ml topical cream (20 sources) Azole Antifungal Start: 02-03-202 4 ketoconazole (NIZORAL) 2 % cream Apply to affected area once daily for 10 days. 09/18/2023 Active Comment on above: Apply to affected ar ea once daily for 10 days. lidocaine 0.04 mg/mg medicated patch (20 sources) Antiarrhythmic, Amide Local Anesthetic lidocaine (SALONPAS) 4 % patch Apply 1 application as directed once daily. Active mag carb/aluminum hydrox/algin (GAVISCON ORAL) (20 sources) mag carb/aluminu m hydrox/algin (GAVISCON ORAL) Take 1 tablet by mouth as needed. Active mag carb/aluminu m hydrox/algin (GAVISCON ORAL) Take by mouth. Active mag carb/aluminu m hydrox/algin (GAVISCON ORAL) Take by mouth. 0 Active Comment on above: Take by mouth. magnesium oxide 500 mg oral tablet (9 sources) Start: 01-29-2025 take 1 tablet by mouth once daily Magnesium Oxide 500 mg magnesium tab Take 1 tablet by mouth once daily. 30 tablet 1 01/29/2025 Active Start: 01-24-2025 End: 01-29-2025 take 1 tablet by mouth once daily Magnesium Oxide 500 mg magnesium tab Take 1 tablet by mouth once daily. 10 tablet 1 01/24/2025 01/29/2025 Discontinued Start: 10-08-2022 take 400 mg by mouth once serena y Magnesium Oxide Active 400 MG PO DAILY 14 October 08, 2022 1:00am metFORMIN hydrochloride 500 mg oral tablet (20 sources) Biguanide Start: 09-10-2022 End: 07-24-2024 take 2 tablets by mouth twice daily at mealtime metFORMIN (GLUCOPHAGE) 500 mg tablet Take 2 tablets by mouth two times a day with meals. 360 tablet 3 07/24/2024 Active Start: 07-30-2022 End: 09-09-2022 take 1 tablet by mouth twice daily at mealtime metFORMIN (GLUCOPHAGE) 500 mg tablet Take 1 tablet by mouth twice daily with meals. 180 tablet 3 07/30/2022 09/09/2022 Discontinued Start: 05-22-2019 take 1 tablet by [facility] twice daily Metformin 1,000 mg tablet,ER verito.retention 24 hr Active 1000 mg PO TWICE A DAY May 22, 2019 11:19am Start: 04-01-2017 METFORMIN HCL 500 MG TABS Take two tablets by mouth in the morning and one before bed METFORMIN HCL [id number] Chanda Sanz JENNIFER Start: 05-21-2016 End: 05-22-2019 take 1 tablet by mouth every twenty-four hours at bedtime Metformin 500 MG tablet,ER verito.retention 24 hr Discontinued 500 mg PO AT BEDTIME May 21, 2016 12:00am May 22, 2019 11:19am Start: 05-21-2016 End: 05-22-2019 take 1 tablet by mouth once daily Metformin 1,000 MG tablet,ER verito.retention 24 hr Discontinued 1000 mg PO DAILY May 21, 2016 12:00am May 22, 2019 11:22am Comment on above: Take 500 mg by mouth twice daily with meals. Take 1 tablet by parish twice daily with meals. Take 2 tablets by mo ut twice daily with meals. Take 2 tablets by mo ut two times a day with meals. methylcellulose 500 mg oral tablet (20 sources) Start: 05-18-20 take 1 tablet by mouth once Methylcellulose (Laxative) (Citrucel) 500 mg tablet Active 500 MG PO ONCE May 17, 2018 11:00pm End: 08-21-2024 methylcellulose (CITRUCEL OR AL) Take by mouth. 08/21/2024 Discontinued methylcellulose (CITRUCEL ORAL) Take by mouth. Active methylcellulose (CITRUCEL ORAL) Take by mouth. 0 Active Comment on above: Take by mouth. miconazole nitrate 20 mg/ml vaginal cream (4 sources) Azole Antifungal Start: 09-29-2024 End: 10-06-2024 miconazole (MONISTAT) 2 % vaginal cream Use 1 Applicator vaginally daily at bedtime for 7 doses. 45 g 09/29/2024 10/06/2024 Active montelukast 10 mg oral tablet (20 sources) Leukotriene Receptor Antagonist Start: 12-11-2024 montelukast (SINGULAIR) 10 mg tablet TAKE 1 TABLET AT BEDTIME 90 tablet 3 12/11/2024 Active Start: 05-21-2016 End: 01-24-2024 montelukast (SINGULAIR) 10 m g tablet TAKE 1 TABLET AT BEDTIME 90 tablet 3 12/11/2024 Active End: 07-30-2022 montelukast sodium (SINGULAI R ORAL) Take by mouth. 0 07/30/2022 Discontinued montelukast sodi um (SINGULAIR ORAL) Take by mouth. 0 Active Comment on above: Take by mouth. Take 1 tablet by [facility] daily at bedtime. Multiple Vitamin (MULTI-VITAMIN DAILY PO) (16 sources) take 1 tablet by mouth once daily Multiple Vitamin (MULTI-VITAMIN DAILY PO) Take 1 tablet by mouth daily. 0 Suspended take 1 tablet by mouth once serena y Multiple Vitamin (MULTI-VITAMIN DAILY PO) Take 1 tablet by mouth daily. 0 Active Multivit With Min-Folic Acid (Adult Multivitamin Gummies) 120 mcg tablet,chewable (2 sources) Start: 01-17-2025 take 1 tablet by mouth once daily Multivit With Min-Folic Acid (Adult Multivitamin Gummies) 120 mcg tablet,chewable Active 1 {tbl} PO DAILY January 17, 2025 12:00am multivitamin,pi-qztj-ffhv rals tablet (20 sources) Start: 05-18-2018 take 1 tablet by mouth once daily multivitamin,tx-iron-min erals tablet Active 1 TABLET PO DAILY May 18, 2018 9:53am Start: 05-18-2018 take 1 tablet by [facility] once daily multivitamin,fg-ucko-rqqfkclh tablet Act luis 1 TABLET PO DAILY May 18, 2018 12:00am Start: 05-18-2018 take 1 tablet by parish [facility] once daily multivitamin,nx-bhdo-awsdujfe tablet Act luis 1 TABLET PO DAILY May 17, 2018 11:00pm nitrofurantoin, macrocrystals 25 mg / nitrofurantoin, monohydrate 75 mg oral capsule (20 sources) Nitrofuran Antibacterial Start: 09-03-2024 End: 09-08-2024 take 1 capsule by mouth twice daily nitrofurantoin monohydrate and macrocrystal (MACROBID) 100 mg capsule Take 1 capsule by mouth two times a day for 5 days. 10 capsule 09/03/2024 09/08/2024 Active Start: 04-14-2023 End: 04-21-2023 take 1 capsule by mouth twice daily at mealtime nitrofurantoin monohydrate and macrocrystal (MACROBID) 100 mg capsule Take 1 capsule by mouth twice daily with meals for 7 days. 14 capsule 0 04/14/2023 04/21/2023 Active Start: 05-18-2018 End: 10-17-2020 take 1 capsule by mouth at mealtime Nitrofurantoin Monohyd/M-Cryst 100 mg capsule Discontinued 100 mg PO .COMPLEX May 18, 2018 12:00am October 17, 2020 11:33am 100 mg PO after intercourse; must administer with a meal/food Comment on above: Take 1 capsule by [facility] twice daily with meals for 7 days. nystatin 100 unt/mg topical powder (20 sources) Polyene Antifungal Start: 09-17-2023 NYSTOP powder APPLY TO THE AFFECTED AREA(S) THREE TIMES DAILY 10/28/2023 Active Start: 09-17-2023 End: 09-18-2024 Nystatin (Nystop) 100,000 un it/gram powder Discontinued 1 NMA TOPICAL THREE TIMES A DAY 2024 10:30am August 29, 2024 10:14am Start: 12-10-2022 End: 12-10-2023 nystatin (Mycostatin) 082077 UNIT/GM powder Apply to affected area 3 times daily 15 g 0 12/10/2022 12/10/2023 Active Comment on above: APPLY TO THE AFFECTE D AREA(S) THREE TIMES DAILY omeprazole 40 mg delayed release oral capsule (20 sources) Proton Pump Inhibitor Start: 01-06-2023 End: 01-25-2025 omeprazole (PRILOSEC) 40 mg capsule TAKE 1 CAPSULE TWICE DAILY 180 capsule 3 01/25/2025 Active Start: 11-04-2022 End: 10-12-2023 Omeprazole 40 mg capsule,del ayed release(DR/EC) Discontinued 20 mg PO TWICE A DAY November 04, 2022 9:26am October 12, 2023 2:36pm Start: 11-04-2022 End: 10-12-2023 take 20 mg by mouth twice daily Omeprazole Discontinued 20 MG PO TWICE A DAY November 04, 2022 9:26am October 12, 2023 2:36pm Start: 09-10-2022 End: 01-27-2023 take 1 capsule by mouth twice daily omeprazole (PRILOSEC) 20 mg capsule Take 1 capsule by mouth twice daily. 180 capsule 3 09/10/2022 01/27/2023 Discontinued Start: 06-23-2021 End: 09-09-2022 take 1 capsule by mouth once daily omeprazole (PRILOSEC) 20 mg capsule Take 1 capsule by mouth once daily. 90 capsule 3 07/30/2022 09/09/2022 Discontinued Start: 04-01-2017 End: 11-04-2022 take 1 capsule by mouth once daily Omeprazole 40 mg capsule,delayed release(DR/EC) Discontinued 40 mg PO DAILY May 18, 2018 12:00am November 04, 2022 9:29am Comment on above: Take 40 mg by mouth once daily. Take 1 capsule by mo [facility] once daily. Take by mouth. Take 1 capsule by [facility] twice daily. ondansetron 4 mg oral tablet (3 sources) Serotonin-3 Receptor Antagonist Start: 023 End: take 2 tablets by mouth every eight hours as needed for nausea and vomiting ondansetron (Zofran) 4 MG tablet Take 2 tablets (8 mg) by mouth every 8 hours as needed for nausea or vomiting for up to 7 days. 20 tablet 0 12/10/2022 12/17/2022 Active pioglitazone 45 mg oral tablet (20 sources) Peroxisome Proliferator Receptor alpha Agonist, Peroxisome Proliferator Receptor gamma Agonist, Thiazolidinedione Start: 021 End: take 1 tablet by mouth once daily pioglitazone (ACTOS) 45 mg tablet Indications: 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) Take 1 tablet by mouth once daily. 90 tablet 3 01/24/2024 Active Start: 05-22-2019 End: 12-21-2022 take 1 tablet by mouth once daily Pioglitazone (Actos) 30 mg tablet Discontinued 30 mg PO DAILY May 22, 2019 12:00am December 21, 2022 11:11am Comment on above: Take 30 mg by mouth once daily. Take 1 tablet by [facility] once daily. Take by mouth. Take 45 mg by mouth once daily. polyethylene glycol 3350 57021 mg powder for oral solution (9 sources) Osmotic Laxative Start: 5 End: polyethylene glycol 3350 17 gram packet Take 1 Packet by mouth once daily. Dissolve dose in 4 - 8 ounces of liquid and take as directed. 30 Packet 09/30/2024 10/30/2024 Active polyethylene glycol 3350 328913 mg / potassium chloride 2970 mg / sodium bicarbonate 6740 mg / sodium chloride 5860 mg / sodium sulfate 35089 mg powder for oral solution (1 source) Osmotic Laxative Start: End: peg 3350-Electrolytes (GOLYTELY) 236-22.74-6.74 -5.86 gram suspension Indications: Family history of colon cancer Take 4,000 mL by mouth one time only for 1 dose. Refer to printed prep instructions from your provider. 4000 mL 09/14/2024 09/14/2024 Active predniSONE 20 mg oral tablet (20 sources) Start: take 3 tablets by mouth once daily, then take 2 tablets by mouth once daily, then take 1 tablet by mouth once daily, then take 0.5 tablet by mouth once daily predniSONE (DELTASONE) 20 mg tablet Take 3 tablets by mouth once daily. X3d, then 2 po every day x 3d then 1 po every day x 3d, then 1/2 po every day x 4d 20 tablet 09/20/2024 Active Start: 09-16-2024 End: 09-19-2024 take 1 tablet by mouth once daily predniSONE (DELTASONE) 20 mg tablet Indications: Asthma with acute exacerbation, unspecified asthma severity, unspecified whether persistent Take 1 tablet by mouth once daily for 3 days. 3 tablet 09/16/2024 09/19/2024 Active rosuvastatin calcium 10 mg oral tablet (20 sources) HMG-CoA Reductase Inhibitor Start: 07-12-2023 End: 07-26-2025 take 1 tablet by mouth once daily at bedtime rosuvastatin (CRESTOR) 10 mg tablet Take 1 tablet by mouth daily at bedtime. 90 tablet 3 07/26/2024 07/26/2025 Active Comment on above: Take 1 tablet by [facility] daily at bedtime. sennosides, assisted 8.6 mg oral tablet (9 sources) Start: 09-29-2024 End: 10-29-2024 take 1 tablet by mouth twice daily senna (SENOKOT) 8.6 mg tab Take 1 tablet by mouth two times a day. 60 tablet 09/29/2024 10/29/2024 Active SITagliptin 100 mg oral tablet (20 sources) Dipeptidyl Peptidase 4 Inhibitor Start: 10-02-2024 End: 10-02-2025 take 1 tablet by mouth once daily SITagliptin phosphate (JANUVIA) 100 mg tablet Take 1 tablet by mouth once daily. 90 tablet 3 10/02/2024 10/02/2025 Active sucralfate 1000 mg oral tablet (20 sources) Aluminum Complex Start: 03-11-2023 End: 10-12-2023 take 1 tablet by mouth three times daily before mealtime sucralfate (CARAFATE) 1 gram tablet Take 1 g by mouth three times a day. 1/2 hour before meals 07/19/2023 Active Start: 01-14-2023 End: 04-14-2023 take 10 mL by mouth three times daily before mealtime sucralfate (CARAFATE) 100 mg/mL suspension Take 10 mL by mouth three times daily before meals. 2700 mL 0 01/14/2023 04/14/2023 Start: 05-29-2020 End: 07-30-2022 take 1 tablet by mouth four times daily sucralfate (CARAFATE) 1 gram tablet Take 1 tablet by mouth four times daily. 60 tablet 2 05/29/2020 07/30/2022 Discontinued Comment on above: Take 1 tablet by parish [facility] four times daily. Take 10 mL by mouth three times daily before meals. Take 1 tablet by parish th three times daily. Take on empty stomach and avoid eating or drinking for 30 mins after taking. Take 1 g by mouth th ree times a day. 1/2 hour before meals traMADol hydrochloride 50 mg oral tablet (20 sources) Opioid Agonist Start: 01-04-2023 take 1 tablet by mouth four times daily Tramadol 50 mg Tablet Active 50 mg PO 4 TIMES DAILY January 04, 2023 12:00am Start: 01-04-2023 take 50 mg by mouth three times daily Tramadol Active 50 MG PO THREE TIMES A DAY January 04, 2023 12:00am Start: 05-27-2020 End: 12-21-2022 take 1 tablet by mouth twice daily Tramadol 50 mg tablet Discontinued 50 mg PO TWICE A DAY May 27, 2020 12:00am December 21, 2022 11:11am take 1 tablet by [facility] every six hours as needed traMADol (ULTRAM) 50 mg tablet Take 50 mg by mouth every 6 hours as needed for pain. Active Comment on above: Take 50 mg by mouth every 6 hours as needed for pain. triamcinolone acetonide 1 mg/ml topical cream (20 sources) Corticosteroid Start: 05-03-2024 Triamcinolone Acetonide 0.1 % cream Active 1 NMA TOPICAL daily as needed for SKIN May 03, 2024 12:00am Start: 06-24-2023 triamcinolone acetonide (KENALOG) 0.1 % cream Apply 1 application to affected area three times a day. Apply sparingly to area for rash/itching. 30 g 0 06/24/2023 Active triamcinolone ac etonide (KENALOG) 0.1 % cream APPLY TO THE AFFECTED AREA(S) 1-2X DAILY OR WHEN RASH IS FLARED Active Comment on above: Apply 1 application to affected area three times a day. Apply sparingly to area for rash/itching. ubidecarenone (CO Q-10 ORAL) (20 sources) take 1 tablet by mouth once daily ubidecarenone (CO Q-10 ORAL) Take 1 tablet by mouth once daily. Active ubidecarenone (C O Q-10 ORAL) Take by mouth. Active ubidecarenone (C O Q-10 ORAL) Take by mouth. 0 Active Comment on above: Take by mouth. vitamin b12 1 mg/ml injectable solution (15 sources) Vitamin B12 Start: 12-26-2024 inject 1 dose by intramuscular injection once 1,000 mcg, INTRAMUSCULAR, ONCE, 1 dose, On Wed12/26/24 at 0900 Start: 11-28-2024 inject 1 dose by int ramuscular injection once 1,000 mcg, INTRAMUSCULAR, ONCE, 1 dose, On Wed11/28/24 at 1000 Start: 11-27-2024 take 1 tablet by mouth once da swathi cyanocobalamin (VITAMIN B- 12) 1,000 mcg tab Indications: Iron deficiency anemia, unspecified iron deficiency anemia type , Other dietary vitamin B12 deficiency anemia Take 1 tablet by mouth once daily. 90 tablet 3 11/27/2024 Active Start: 11-21-2024 End: 11-21-2024 inject 1 dose by intramuscular injection once 1,000 mcg, INTRAMUSCULAR, ONCE, 1 dose, On Wed11/21/24 at 1000 Start: 11-14-2024 End: 11-14-2024 inject 1 dose by intramuscular injection once 1,000 mcg, INTRAMUSCULAR, ONCE, 1 dose, On Wed11/14/24 at 0830 Start: 11-06-2024 End: 11-06-2024 inject 1 dose by intramuscular injection once 1,000 mcg, INTRAMUSCULAR, ONCE, 1 dose, On Wed11/06/24 at 1000 Completed/Discontinued Medications Medication Drug Class(es) Dates Sig (Normalized) Sig (Original) acetaminophen 325 mg / HYDROcodone bitartrate 5 mg oral tablet (20 sources) Opioid Agonist Start: 08-29-2024 End: 11-28-2024 Hydrocodone-Acetami nophen 5-325 mg tablet Discontinued 0.5 {tbl} PO .DAILY PRN as needed for pain August 29, 2024 1:00am November 28, 2024 1:28pm take 1 tablet by [facility] every eight hours as needed HYDROcodone-acetaminophen (NORCO) 5-325 mg per tablet Take 1 tablet by mouth every 8 hours as needed for pain. Active Alum Hydroxide-Mag Carbonate (GAVISCON PO) (9 sources) Alum Hydroxide-M ag Carbonate (GAVISCON PO) Take by mouth. 0 Suspended Alum Hydroxide-M ag Carbonate (GAVISCON PO) Take by mouth. 0 Active amLODIPine 5 mg oral tablet (20 sources) Dihydropyridine Calcium Channel Ghulam Start: 09-17-2023 End: 08-29-2024 Amlodipine (Norvasc) 5 mg tablet Discontinued 5 mg PO DAILY September 17, 2023 1:00am August 29, 2024 10:07am On Hold: Resume on 01/29/24. Hold until systolic BP >140 Start: 07-12-2023 End: 01-23-2025 take 1 tablet by mouth once daily amLODIPine (NORVASC) 5 mg tablet Take 1 tablet by mouth once daily. 90 tablet 3 01/24/2024 08/21/2024 Discontinued Start: 11-10-2022 End: 12-21-2022 take 1 tablet by mouth once daily Amlodipine 5 mg tablet Discontinued 5 mg PO DAILY 90 November 10, 2022 12:00am December 21, 2022 11:09am Comment on above: Take 1 tablet by [facility] once daily. ascorbic acid 500 mg oral tablet (20 sources) Vitamin C Start: 09-06-2017 End: 08-21-2024 take 1 tablet by mouth once daily Ascorbic Acid (Vitamin C) 500 mg tablet Discontinued 500 mg PO DAILY May 22, 2019 12:00am January 11, 2024 8:29am take 1 tablet by mouth once serena y ascorbic acid (Vitamin C) 500 MG tablet Take 500 mg by mouth daily. 0 Active Comment on above: Take by mouth. B-complex with vitamin C (SUPER B COMPLEX-VITAMIN C ORAL) (20 sources) End: 08-21-2024 B-complex with vitamin C (SUPER B COMPLEX-VITAMIN C ORAL) Take by mouth. 08/21/2024 Discontinued B-complex with v itamin C (SUPER B COMPLEX-VITAMIN C ORAL) Take by mouth. Active B-complex with v itamin C (SUPER B COMPLEX-VITAMIN C ORAL) Take by mouth. 0 Active Comment on above: Take by mouth. bacitracin 0.5 unt/mg topical ointment (18 sources) Start: 11-01-2023 End: 08-21-2024 bacitracin 500 unit/gram ointment Apply to affected area two times a day. 60 g 2 11/01/2023 08/21/2024 Discontinued Comment on above: Apply to affected ar ea two times a day. betamethasone 0.5 mg/ml / clotrimazole 10 mg/ml topical cream (2 sources) Azole Antifungal, Corticosteroid Start: 06-12-2023 End: 06-19-2023 clotrimazole-betamethas one (LOTRISONE) cream Apply 1 application to affected area two times a day for 7 days. 45 g 0 06/12/2023 06/19/2023 Comment on above: Apply 1 application to affected area two times a day for 7 days. Budesonide-Formoterol (20 sources) Corticosteroid, beta2-Adrenergic Agonist Start: 10-12-2023 End: 01-11-2024 Budesonide-Formoterol (Symbicort) 160-4.5 mcg/actuation HFA aerosol inhaler Discontinued 1 NMA INHALATION ONCE October 12, 2023 1:00am January 11, 2024 8:30am Start: 10-12-2023 End: 01-11-2024 Budesonide-Formoterol (Symbi linda) 160-4.5 mcg/actuation HFA aerosol inhaler Discontinued 1 NMA INHALATION ONCE October 12, 2023 12:00am January 11, 2024 7:30am Start: 10-12-2023 Budesonide-For moterol (Symbicort) 160-4.5 mcg/actuation HFA aerosol inhaler Active 1 INH INHALATION ONCE October 12, 2023 1:00am Start: 10-12-2023 Budesonide-For moterol (Symbicort) 160-4.5 mcg/actuation HFA aerosol inhaler Active 1 INH INHALATION ONCE October 12, 2023 12:00am Start: 03-11-2023 End: 09-17-2023 Budesonide-Formoterol (Symbi linda) 160-4.5 mcg/actuation HFA aerosol inhaler Discontinued 1 NMA INHALATION TWICE A DAY as needed for SOB March 11, 2023 12:00am September 17, 2023 11:15am Start: 03-11-2023 End: 09-17-2023 Budesonide-Formoterol (Symbi linda) 160-4.5 mcg/actuation HFA aerosol inhaler Discontinued 1 NMA INHALATION TWICE A DAY as needed for SOB March 10, 2023 11:00pm September 17, 2023 10:15am Start: 03-11-2023 End: 09-17-2023 Budesonide-Formoterol (Symbi linda) 160-4.5 mcg/actuation HFA aerosol inhaler Discontinued 1 INH INHALATION TWICE A DAY March 11, 2023 12:00am September 17, 2023 11:15am Start: 03-11-2023 End: 09-17-2023 Budesonide-Formoterol (Symbi linda) 160-4.5 mcg/actuation HFA aerosol inhaler Discontinued 1 INH INHALATION TWICE A DAY March 10, 2023 11:00pm September 17, 2023 10:15am Start: 03-11-2023 Budesonide-For moterol (Symbicort) 160-4.5 mcg/actuation HFA aerosol inhaler Active 1 INH INHALATION TWICE A DAY March 10, 2023 11:00pm Start: 03-11-2023 Budesonide-For moterol (Symbicort) 160-4.5 mcg/actuation HFA aerosol inhaler Active 1 INH INHALATION TWICE A DAY March 11, 2023 12:00am Start: 01-27-2023 take 2 puff(s) by in halation twice daily budesonide-formoterol (SYMBICORT) 160-4.5 mcg/actuation inhaler Inhale 2 Puffs as instructed twice daily. 10.2 g 3 01/27/2023 Active Start: 07-30-2022 End: 01-27-2023 take 2 puff(s) by inhalation twice daily budesonide-formoterol (SYMBICORT) 160-4.5 mcg/actuation inhaler Inhale 2 Puffs as instructed twice daily. 10.2 g 3 07/30/2022 01/27/2023 Discontinued Start: 07-30-2022 take 2 puff(s) by in halation in the morning budesonide-formoterol (Symbicort) 160-4.5 MCG/ACT inhaler Inhale 2 puffs in the morning and 2 puffs in the evening. 0 07/30/2022 Active Start: 07-30-2022 take 2 puff(s) by in halation twice daily budesonide-formoterol (SYMBICORT) 160-4.5 mcg/actuation inhaler Inhale 2 Puffs as instructed twice daily. 10.2 g 3 07/30/2022 Active Start: 04-01-2017 SYMBICORT 160- 4.5 MCG/ACT AERO use as directed BUDESONIDE-FORMOTEROL FUMARATE [id number] Chanda Sanz HYDROLOGIC MODELER Start: 04-01-2017 SYMBICORT 160- 4.5 MCG/ACT AERO use as directed BUDESONIDE-FORMOTEROL FUMARATE [id number] Chanda Sanz HYDROLOGIC MODELER Start: 05-21-2016 End: 08-29-2024 Budesonide-Formoterol 1 INHA LER inhaler Discontinued 2 NMA INHALATION TWICE A DAY as needed for Asthma May 21, 2016 12:00am August 29, 2024 10:09am Start: 05-21-2016 End: 08-29-2024 Budesonide-Formoterol 1 INHA LER inhaler Discontinued 2 NMA INHALATION TWICE A DAY as needed for Asthma May 20, 2016 11:00pm August 29, 2024 9:09am Start: 05-21-2016 take 1 puff(s) by in halation twice daily Budesonide-Formoterol Active 2 PUFF INHALATION TWICE A DAY May 21, 2016 12:00am Start: 05-21-2016 take 1 puff(s) by in halation twice daily Budesonide-Formoterol Active 2 PUFF INHALATION TWICE A DAY May 20, 2016 11:00pm Start: 05-21-2016 take 1 puff(s) by in halation twice daily Budesonide-Formoterol Active 2 PUFF INHALATION TWICE A DAY May 20, 2016 11:00pm End: 07-30-2022 take 2 puff(s) by inhalation twice daily budesonide-formoterol (SYMBICORT) 160-4.5 mcg/actuation inhaler Inhale 2 Puffs as instructed twice daily. 0 07/30/2022 Discontinued take 2 puff(s) by in halation twice daily budesonide-formoterol (SYMBICORT) 160-4.5 mcg/actuation inhaler Inhale 2 Puffs as instructed twice daily. 0 Active Comment on above: Inhale 2 Puffs as in structed twice daily. calcium carbonate 1500 mg oral tablet (20 sources) Start: 05-21-2016 End: 03-11-2023 take 1 tablet by mouth once daily Calcium Carbonate 600 MG tablet Discontinued 600 mg PO DAILY May 21, 2016 12:00am March 11, 2023 11:17am calcium carbonate / vitamin D (5 sources) Start: 04-01-2017 take 1 tablet by mouth once daily CALCIUM 500 + D 500-125 MG-UNIT TABS One tablet by mouth daily CALCIUM CARBONATE-VITAMIN D [id number] Chanda Sanz NP Calcium Carbonate / vitamin D3 (20 sources) End: 08-21-2024 calcium carbonate/vitamin D3 (CALCIUM 500 + D ORAL) Take by mouth. 08/21/2024 Discontinued calcium carbonat e/vitamin D3 (CALCIUM 500 + D ORAL) Take by mouth. Active calcium carbonat e/vitamin D3 (CALCIUM 500 + D ORAL) Take by mouth. 0 Active Comment on above: Take by mouth. calcium chloride 0.0014 meq/ml / potassium chloride 0.004 meq/ml / sodium chloride 0.103 meq/ml / sodium lactate 0.028 meq/ml injectable solution (1 source) Start: 2024 End: 2024 take 30 mL intravenously every hour 30 mL/hr, INTRAVENOUS, CONTINUOUS, Starting on Wed11/15/24 at 1100, Until Wed11/15/24 at 1339, Preprocedure chlorhexidine gluconate 1.2 mg/ml mouthwash (10 sources) Start: 2022 take 15 mL by mouth in the morning chlorhexidine (Peridex) 0.12 % solution Use 15 mL in the mouth or throat See administration instructions for 2 doses. Swish and spit the night before surgery and AM of surgery. 30 mL 0 11/19/2022 Suspended clotrimazole 10 mg/ml topical cream (5 sources) Azole Antifungal Start: 2022 clotrimazole (LOTRIMIN) 1 % cream Apply to affected area two times a day. 45 g 1 06/24/2023 Active Comment on above: Apply to affected ar ea two times a day. diazePAM 5 mg oral tablet (20 sources) Benzodiazepine Start: 2023 End: 2023 take 1 tablet by mouth at bedtime as needed for anxiety Diazepam (Valium) 5 mg tablet Discontinued 5 mg PO AT BEDTIME as needed for anxiety 1 February 11, 2024 12:00am February 11, 2024 12:00am February 12, 2024 12:12am Start: 07-05-2020 End: 07-24-2020 Diazepam (Valium) 5 mg table t Discontinued 5 mg PO ONCE as needed for anxiety July 05, 2020 1:00am July 24, 2020 11:17am take 45 minutes prior to MRI [place] 8-Sxg-Nrd-Fish Oil (15 sources) Start: 03-11-2023 End: 01-11-2024 [place] 7-Qbh-Kmn-Fish Oil (Fi sh Oil) 300-1,000 mg capsule Discontinued 1 NMA PO DAILY March 11, 2023 12:00am January 11, 2024 8:33am Start: 03-11-2023 End: 01-11-2024 [place] 4-Ldb-Wft-Fish Oil (Fi sh Oil) 300-1,000 mg capsule Discontinued 1 NMA PO DAILY March 10, 2023 11:00pm January 11, 2024 7:33am Start: 03-11-2023 take 300-1000 mg by mouth once daily [place] 1-Sjq-Kjf-Fish Oil (Fish Oil) 300-1,000 mg capsule Active 1 CAP PO DAILY March 10, 2023 11:00pm Start: 03-11-2023 take 300-1000 mg by mouth once daily [place] 7-Iwx-Wec-Fish Oil (Fish Oil) 300-1,000 mg capsule Active 1 CAP PO DAILY March 11, 2023 12:00am docusate sodium 100 mg oral capsule (10 sources) Start: 08-29-2024 End: 11-28-2024 take 1 capsule by mouth once daily Docusate Sodium 100 mg Capsule Discontinued 100 mg PO DAILY August 29, 2024 1:00am November 28, 2024 1:27pm Start: 01-27-2024 End: 08-29-2024 take 1 capsule by mouth twice daily as needed for constipation Docusate Sodium 100 mg Capsule Discontinued 100 mg PO TWICE DAILY NEEDED as needed for Constipation 05 20January 27, 2024 12:00am August 29, 2024 10:14am empagliflozin 10 mg oral tablet (20 sources) Sodium-Glucose Cotransporter 2 Inhibitor Start: 09-04-2024 End: 10-25-2024 take 1 tablet by mouth once daily in the morning Empagliflozin (Jardiance) 10 mg tablet Discontinued 10 mg PO EVERY MORNING September 06, 2024 1:00am October 25, 2024 8:21am Start: 12-01-2022 End: 09-17-2023 take 1 tablet by mouth once daily Empagliflozin (Jardiance) 10 mg tablet Discontinued 10 mg PO DAILY December 21, 2022 12:00am September 17, 2023 11:18am Comment on above: Take 10 mg by mouth daily with breakfast. Take 1 tablet by parish th daily with breakfast. estrogens, conjugated (assisted) 0.625 mg/ml vaginal cream (20 sources) Estrogen Start: 05-18-2018 End: 05-18-2018 Conjugated Estrogens (Premarin) 0.625 mg/gram cream Discontinued 0 .Route .COMPLEX May 18, 2018 12:00am May 18, 2018 1:37pm Peasized amount at vaginal opening every other night X 4 weeks then twice a week FA/mv,Ca,iron,min/lycop onofre/lut (MULTIVITAL ORAL) (20 sources) End: 08-21-2024 FA/mv,Ca,iron,min/lycope ne/lut (MULTIVITAL ORAL) Take by mouth. 08/21/2024 Discontinued FA/mv,Ca,iron,mi n/lycopene/lut (MULTIVITAL ORAL) Take by mouth. Active FA/mv,Ca,iron,mi n/lycopene/lut (MULTIVITAL ORAL) Take by mouth. 0 Active Comment on above: Take by mouth. fluticasone propionate 0.05 mg/actuat metered dose nasal spray (20 sources) Corticosteroid Start: 03-11-2023 End: 01-11-2024 take 50 ug nasal route once daily Fluticasone Propionate (Flonase Allergy Relief) 50 mcg/actuation spray,suspension Discontinued 2 NMA INTRANASAL DAILY March 11, 2023 12:00am January 11, 2024 8:30am administer into each nostril Start: 03-11-2023 take 1 spray(s) nasa l route once daily Fluticasone Propionate (Flonase Allergy Relief) 50 mcg/actuation spray,suspension Active 2 SPRAY INTRANASAL DAILY March 11, 2023 12:00am administer into each nostril Start: 07-30-2022 End: 06-12-2023 take 2 spray(s) nasal route once daily fluticasone (FLONASE) 50 mcg/actuation nasal spray Use 2 Sprays in each nostril once daily. 16 g 2 05/25/2023 06/12/2023 Discontinued Start: 06-05-2019 End: 07-30-2022 fluticasone (FLONASE) 50 mcg/actuation nasal spray Apply to affected area. 0 06/05/2019 07/30/2022 Discontinued Comment on above: Use 2 Sprays in each nostril once daily. Apply to affected ar ea. hydroCHLOROthiazide 12.5 mg oral tablet (20 sources) Thiazide Diuretic Start : 04-07 End: 01-23 take 1 tablet by mouth once daily Hydrochlorothiazide 12.5 mg tablet Discontinued 12.5 mg PO DAILY April 07, 2023 12:00am September 17, 2023 11:19am Comment on above: Take by mouth. hydrocortisone 10 mg/ml / neomycin 3.5 mg/ml / polymyxin b 90611 unt/ml otic suspension (20 sources) Aminoglycoside Antibacterial, Polymyxin-class Antibacterial, Corticosteroid Start : 04-14 End: 08-21 ovyszaku-acmdygszl-vcckt cortisone (CORTISPORIN) 3.5-10,000-1 mg/mL-unit/mL-% otic suspension Use 3 Drops in both ears four times daily. 10 mL 04/14/2023 08/21/2024 Discontinued Comment on above: Use 3 Drops in both ears four times daily. 10 ml iron sucrose 20 mg/ml injection (5 sources) Parenteral Iron Replacement Start : 09-11 End: 09-11 200 mg, INTRAVENOUS, ONCE, 1 dose, On Wed09/11/24 at 1000, May administer up to 200 mg via IV push over 5-10 minutes. Please conduct a 30 minute post-dose observation. Start: 09-08-2024 End: 09-08-2024 200 mg, INTRAVENOUS, ONCE, 1 dose, On Wed09/08/24 at 1430, May administer up to 200 mg via IV push over 5-10 minutes. Please conduct a 30 minute post-dose observation. Start: 09-06-2024 End: 09-06-2024 200 mg, INTRAVENOUS, ONCE, 1 dose, On Wed09/06/24 at 1330, May administer up to 200 mg via IV push over 5-10 minutes. Please conduct a 30 minute post-dose observation. Start: 09-01-2024 End: 09-01-2024 200 mg, INTRAVENOUS, ONCE, 1 dose, On Wed09/01/24 at 1330, May administer up to 200 mg via IV push over 5-10 minutes. Please conduct a 30 minute post-dose observation. Start: 08-30-2024 End: 08-30-2024 200 mg, INTRAVENOUS, ONCE, 1 dose, On Wed08/30/24 at 1300, May administer up to 200 mg via IV push over 5-10 minutes. Please conduct a 30 minute post-dose observation. iron sucrose 200 mg in NaCl 0.9% 100 mL (3 sources) Start: 08-22-2024 End: 2024 iron sucrose 200 mg in NaCl 0.9% 100 mL Inject 200 mg intravenously as directed for 5 doses. 1000 mg 08/22/2024 2024 Discontinued Start: 08-22-2024 iron sucrose 2 00 mg in NaCl 0.9% 100 mL Inject 200 mg intravenously as directed for 5 doses. 1000 mg 08/22/2024 Active lisinopril 10 mg oral tablet (20 sources) Angiotensin Converting Enzyme Inhibitor Start: 07-21-2023 End: 01-25-2024 take 1 tablet by mouth twice daily Lisinopril 10 mg tablet Discontinued 10 mg PO TWICE A DAY October 12, 2023 2:33pm January 25, 2024 6:09am Start: 04-07-2023 End: 10-12-2023 take 1 tablet by mouth once daily Lisinopril 10 mg tablet Discontinued 10 mg PO DAILY September 17, 2023 1:00am October 12, 2023 2:36pm Start: 12-02-2022 End: 12-09-2023 take 1 tablet by mouth once daily Lisinopril 5 mg tablet Discontinued 5 mg PO DAILY December 21, 2022 12:00am April 07, 2023 11:45am Comment on above: Take 5 mg by mouth o nce daily. Take 1 tablet by parish th once daily. Take 1 tablet by parish th every afternoon. Take 1 tablet by parish th two times a day. melatonin 5 mg oral capsule (20 sources) Start: 03-11-2023 End: 01-11-2024 take 1 capsule by mouth once daily Melatonin 5 mg capsule Discontinued 5 mg PO DAILY March 11, 2023 12:00am January 11, 2024 8:31am Start: 01-04-2023 End: 01-25-2023 take 1 tablet by mouth at bedtime Melatonin 5 mg Tablet Discontinued 5 mg PO AT BEDTIME January 04, 2023 12:00am January 25, 2023 1:01pm Start: 09-08-2022 take 1 capsule by mo [facility] once daily as needed Melatonin 5 MG capsule Take 1 capsule by mouth Nightly as needed. 0 09/08/2022 Active Start: 09-08-2022 Melatonin Acti ve MG PO September 08, 2022 12:00am metoclopramide 10 mg oral tablet (3 sources) Dopamine-2 Receptor Antagonist Start: 12-22-2022 End: 12-22-2023 metoclopramide (Reglan) 10 MG tablet Take 1 tablet (10 mg) by mouth in the morning and 1 tablet (10 mg) at noon and 1 tablet (10 mg) in the evening. Take with meals. 90 tablet 11 12/22/2022 12/25/2022 Discontinued (Therapy completed) metoprolol tartrate 25 mg oral tablet (20 sources) beta-Adrenergic Ghulam Start: 12-21-2022 End: 08-29-2024 Metoprolol Tartrate 25 mg tablet Discontinued 25 mg PO TWICE A DAY December 21, 2022 12:00am August 29, 2024 10:10am On Hold: Resume on 01/28/24. Hold until systolic BP >140 Start: 12-01-2022 End: 08-21-2024 take 1 tablet by mouth twice daily metoprolol tartrate, short acting, (LOPRESSOR) 25 mg tablet Take 1 tablet by mouth two times a day. 180 tablet 3 01/24/2024 08/21/2024 Discontinued Start: 11-10-2022 End: 12-21-2022 take 1 tablet by mouth once daily Metoprolol Succinate (Toprol Xl) 50 mg tablet extended release 24 hr Discontinued 50 mg PO DAILY November 10, 2022 12:00am December 21, 2022 11:08am Comment on above: Take 25 mg by mouth twice daily. Take 1 tablet by parish twice daily. MULTIPLE VITAMINS-MINERALS (3 sources) Start: 04-01-2017 take 1 tablet by mouth once daily CENTRUM SILVER 50+WOMEN TABS One tablet by mouth daily MULTIPLE VITAMINS-MINERALS [id number] Chanda S [place] HYDROLOGIC MODELER MULTIPLE VITAMINS-MINERALS (2 sources) Start: 04-01-2017 take 1 tablet by mouth once daily CENTRUM SILVER 50+WOMEN TABS One tablet by mouth daily MULTIPLE VITAMINS-MINERALS [id number] Chanda S [place] HYDROLOGIC MODELER multivitamin tablet (20 sources) Start: 08-16-1969 End: 08-21-2024 multivitamin tablet Take by mouth. 08/16/1969 08/21/2024 Discontinued Start: 08-16-1969 multivitamin t ablet Take by mouth. 08/16/1969 Active Start: 08-16-1969 multivitamin t ablet Take by mouth. 0 08/16/1969 Active Comment on above: Take by mouth. Multivitamin,Tx-Iron-Min erals (Complete Multivitamin) tablet (5 sources) Start: 05-18-2018 End: 01-11-2024 Multivitamin,Lk-Zqkf-Msxvkkp s (Complete Multivitamin) tablet Discontinued 1 {tbl} PO DAILY May 18, 2018 12:00am January 11, 2024 8:32am Start: 05-18-2018 End: 01-11-2024 Multivitamin,Rw-Paga-Bxlhukr s (Complete Multivitamin) tablet Discontinued 1 {tbl} PO DAILY May 17, 2018 11:00pm January 11, 2024 7:32am mupirocin 0.02 mg/mg topical ointment (10 sources) RNA Synthetase Inhibitor Antibacterial Start: 11-19-2022 mupirocin (Bactr oban) 2 % ointment Apply topically See administration instructions for 2 doses. Apply to inside of nostrils night before surgery and AM of surgery. 1 Tube 0 11/19/2022 Suspended Pndd-Ekehr2-Losqcpu n Sod-Aloe (Nasogel) 0.9 % gel (9 sources) Start: 09-17-2023 End: 10-12-2023 Mmzy-Sglti7-Jkwndzso Sod-Aloe (Nasogel) 0.9 % gel Discontinued NMA INTRANASAL September 17, 2023 1:00am October 12, 2023 2:36pm Start: 09-17-2023 End: 10-12-2023 Rxpq-Coeja4-Cqypaltq Sod-Parag e (Nasogel) 0.9 % gel Discontinued NMA INTRANASAL September 17, 2023 12:00am October 12, 2023 1:36pm Start: 09-17-2023 End: 10-12-2023 Litz-Rvjap7-Nrgkykym Sod-Parag e (Nasogel) 0.9 % gel Discontinued EACH INTRANASAL September 17, 2023 1:00am October 12, 2023 2:36pm Start: 09-17-2023 End: 10-12-2023 Hlrn-Cifpd1-Lvccjkvs Sod-Parag e (Nasogel) 0.9 % gel Discontinued EACH INTRANASAL September 17, 2023 12:00am October 12, 2023 1:36pm Start: 09-17-2023 Tnle-Hcgaw4-Eb aluron Sod-Aloe (Nasogel) 0.9 % gel Active EACH INTRANASAL September 17, 2023 12:00am nitrofurantoin, macrocrystals 100 mg oral capsule (20 sources) Nitrofuran Antibacterial Start: 06-11-2021 End: 06-18-2021 take 1 capsule by mouth twice daily at mealtime Nitrofurantoin Macrocrystal 100 mg capsule Discontinued 100 mg PO TWICE A DAY 14 June 11, 2021 12:00am June 17, 2021 12:00am June 18, 2021 12:01am administer with food (meal or snack) oxybutynin chloride 5 mg oral tablet (20 sources) Cholinergic Muscarinic Antagonist Start: 07-16-2021 End: 08-15-2021 take 1 tablet by mouth twice daily Oxybutynin Chloride 5 mg tablet Discontinued 5 mg PO TWICE A DAY 60 July 16, 2021 1:00am August 14, 2021 1:00am August 15, 2021 1:01am oxyCODONE hydrochloride 5 mg oral tablet (7 sources) Opioid Agonist Start: 01-27-2024 End: 02-03-2024 take 1 tablet by mouth every eight hours as needed for pain Oxycodone 5 mg Tablet Discontinued 5 mg PO EVERY 8 HOURS NEEDED as needed for Pain Score 4-10 9 3 January 27, 2024 February 03, 2024 2:33pm Start: 12-21-2022 take 5 mg by mouth e very six hours Oxycodone Active 5 MG PO EVERY 6 HOURS December 21, 2022 12:00am Start: 12-01-2022 End: 12-08-2022 take 1 tablet by mouth every six hours as needed for pain oxyCODONE (Roxicodone) 5 MG immediate release tablet Indications: CAD in [place] artery Take 1 tablet (5 mg) by mouth every 6 hours as needed for severe pain (7-10) for up to 7 days. 28 tablet 0 12/01/2022 12/08/2022 Active phenazopyridine hydrochloride 100 mg oral tablet (20 sources) Start: 06-11-2021 End: 11-04-2022 take 1 tablet by mouth three times daily as needed for pain Phenazopyridine (Pyridium) 100 mg tablet Discontinued 100 mg PO THREE TIMES A DAY as needed for pain June 11, 2021 12:00am November 04, 2022 9:29am Start: 05-23-2017 End: 05-22-2019 take 1 tablet by mouth twice daily as needed for pain Phenazopyridine 200 MG tablet Discontinued 200 mg PO TWICE DAILY NEEDED as needed for Pain May 23, 2017 12:00am May 22, 2019 11:20am potassium chloride 20 meq extended release oral tablet (19 sources) Start: 12-21-2022 End: 01-25-2023 take 1 tablet by mouth once daily as needed Potassium Chloride 20 mEq tablet extended release Discontinued 20 meq PO DAILY as needed for vitamin December 21, 2022 12:00am January 25, 2023 1:01pm Start: 12-01-2022 End: 12-10-2022 take 1 tablet by mouth once daily potassium chloride CR (Klor-Con M20) 20 MEQ ER tablet Take 1 tablet (20 mEq) by mouth daily. Do not crush or chew. 5 tablet 0 12/01/2022 12/10/2022 Discontinued (Therapy completed) simvastatin 40 mg oral tablet (20 sources) HMG-CoA Reductase Inhibitor Start: 04-01-2017 End: 07-12-2023 take 1 tablet by mouth once daily at bedtime simvastatin (ZOCOR) 40 mg tablet Take 1 tablet by mouth daily at bedtime. 90 tablet 3 07/30/2022 07/12/2023 Discontinued Start: 05-21-2016 End: 09-17-2023 take 2 tablets by mouth once daily Simvastatin 20 MG tablet Discontinued 40 mg PO DAILY May 21, 2016 12:00am September 17, 2023 11:14am Start: 05-21-2016 End: 09-17-2023 take 40 mg by mouth once daily Simvastatin Discontinue d 40 MG PO DAILY May 21, 2016 12:00am September 17, 2023 11:14am Comment on above: Take 40 mg by mouth daily at bedtime. Take 1 tablet by parish th daily at bedtime. ticagrelor 90 mg oral tablet (20 sources) Start: 4 End: 5 take 1 tablet by mouth twice daily Ticagrelor (Brilinta) 90 mg tablet Discontinued 90 mg PO TWICE A DAY 60 January 27, 2024 5:48pm February 23, 2024 12:56pm tiZANidine 2 mg oral capsule (20 sources) Central alpha-2 Adrenergic Agonist Start: 4 End: take 1 capsule by mouth every eight hours as needed Tizanidine (Zanaflex) 2 mg capsule Discontinued 2 mg PO Q8H as needed May 03, 2024 12:00am August 29, 2024 10:11am Start: 07-21-2023 End: 08-21-2024 take 2 tablets by mouth every eight hours as needed tiZANidine (ZANAFLEX) 2 mg tablet Take 2 tablets by mouth every 8 hours as needed. 30 tablet 07/21/2023 08/21/2024 Discontinued Comment on above: Take 2 tablets by mo uth every 8 hours as needed. ubidecarenone 75 mg oral capsule (20 sources) Start: 05-22-2019 End: 01-11-2024 Coenzyme Q10 (Ultra Coq10) 75 mg capsule Discontinued 100 mg PO DAILY May 22, 2019 12:00am January 11, 2024 8:30am Start: 05-22-2019 Coenzyme Q10 ( Ultra Coq10) 75 mg capsule Active 75 MG PO DAILY May 22, 2019 12:00am Problems Active Problems Problem Classification Problem Date Documented Da te Episodic/Chronic Administrative/social admission (3 sources) Patient encounter status; Translations: [Other specified counseling] 07-21-2023 Episodic Asthma (20 sources) Asthma; Translations: [Unspecified asthma, uncomplicated] Onset: 03-01-2017 Chronic Benign neoplasm of uterus (20 sources) Uterine leiomyoma; Translations: [Leiomyoma of uterus, unspecified] 07-16-2021 Episodic Cancer of cervix (20 sources) Atypical squamous cells of undetermined significance on cervical Papanicolaou smear; Translations: [Atypical squamous cells of undetermined significance on cytologic smear of cervix (ASC-US)] 06-30-2022 Episodic Comment on above: first abnormal pap e antonella, neg colp(2018). 2019 ASCUS, +HPV. Repeat pap/HPV 2020 LGSIL. 2022 LGSIL +HPV, colp. Cardiac dysrhythmias (20 sources) Multiple premature ventricular complexes; Translations: [Ventricular premature depolarization] Onset: 12-30-2022 10-08-2022 Chronic Chronic ulcer of skin (20 sources) Pressure ulcer of buttock stage 3; Translations: [Pressure ulcer of unspecified buttock, stage 3] Chronic Complication of device; implant or graft (2 sources) Atherosclerosis of coronary artery bypass graft(s) without angina pectoris; Translations: [Atherosclerosis of coronary artery bypass graft(s) without angina pectoris] Onset: 11-26-2022 Chronic Coronary atherosclerosis and other heart disease (20 sources) Coronary arteriosclerosis; Translations: [Atherosclerotic heart disease of [place] coronary artery without angina pectoris] Onset: 11-18-2022 11-10-2022 Chronic Deficiency and other anemia (11 sources) Anemia; Translations: [Anemia, unspecified] 08-13-2024 Episodic Deficiency and other anemia (20 sources) Vitamin B12 deficiency anemia due to dietary causes; Translations: [Other dietary vitamin B12 deficiency anemia] Onset: 11-06-2024 11-06-2024 Episodic Deficiency and other anemia (2 sources) Nutritional anemia; Translations: [Vitamin B12 deficiency anemia, unspecified] 11-20-2024 Episodic Deficiency and other anemia (1 source) Vitamin B12 deficiency anemia, unspecified; Translations: [Anemia due to vitamin B12 deficiency, unspecified B12 deficiency type] Onset: 11-20-2024 Episodic Deficiency and other anemia (3 sources) Anemia, unspecified; Translations: [Anemia, unspecified type] Onset: 05-31-2024 Episodic Deficiency and other anemia (1 source) Other dietary vitamin B12 deficiency anemia; Translations: [Other dietary vitamin B12 deficiency anemia] Onset: 11-06-2024 Episodic Diabetes mellitus without complication (20 sources) Type 2 diabetes mellitus; Translations: [Type 2 diabetes mellitus without complications] Onset: 05-22-2022 05-22-2022 Chronic Disorders of lipid metabolism (20 sources) Hypercholesterolemia; Translations: [Pure hypercholesterolemia, unspecified] Onset: 07-24-2022 Chronic Essential hypertension (20 sources) Hypertensive disorder; Translations: [Essential (primary) hypertension] Onset: 03-01-2017 Chronic Gastritis and duodenitis (1 source) Bile-induced gastritis; Translations: [Other gastritis without bleeding] 04-20-2023 Episodic Mycoses (15 sources) Candidiasis of skin; Translations: [Candidiasis of skin and nail] 06-12-2023 Episodic Comment on above: nystop Nonspecific chest pain (20 sources) Chest pain; Translations: [Chest pain, unspecified] 10-08-2022 Episodic Occlusion or stenosis of precerebral arteries (20 sources) Carotid artery stenosis; Translations: [Occlusion and stenosis of unspecified carotid artery] Onset: 02-10-2024 10-27-2023 Chronic Comment on above: CTA- images reviewed , left ICA 82% stenosis, mild calcification; right ICA no significant stenosis, CCA 62% stenosis calcified s/p L TCAR CTA- images reviewed , left ICA 82% stenosis, mild calcification; right ICA no significant stenosis, CCA 62% stenosis calcified-scan 01-16-25 Osteoporosis (4 sources) Osteoporosis; Translations: [Age-related osteoporosis without current pathological fracture] 12-26-2024 Chronic Other acquired deformities (10 sources) Lumbar spondylolisthesis; Translations: [Spondylolisthesis, lumbar region] 02-03-2024 Episodic Other aftercare (1 source) Removal of sutures done; Translations: [Encounter for removal of sutures] 10-02-2024 Episodic Other aftercare (5 sources) Surgical follow-up; Translations: [Encounter for surgical aftercare following surgery on the circulatory system] 01-27-2024 Episodic Other aftercare (1 source) Encounter for surgical aftercare following surgery on the circulatory system; Translations: [Encounter for surgical aftercare following surgery on the circulatory system] Onset: 01-19-2025 Episodic Other and unspecified benign neoplasm (2 sources) Change in skin lesion; Translations: [Melanocytic nevi, unspecified] 09-04-2024 Episodic Other circulatory disease (20 sources) Stented artery; Translations: [Presence of other vascular implants and grafts] Onset: 02-16-2024 02-16-2024 Chronic Other circulatory disease (1 source) Presence of other vascular implants and grafts; Translations: [Presence of other vascular implants and grafts] Onset: 02-10-2024 Chronic Other circulatory disease (8 sources) Carotid bruit; Translations: [Other specified symptoms and signs involving the circulatory and respiratory systems] 10-12-2023 Episodic Other circulatory disease (3 sources) Other specified symptoms and signs involving the circulatory and respiratory systems; Translations: [Other symptoms involving cardiovascular system] 10-12-2023 Episodic Other connective tissue disease (4 sources) Pain in right arm; Translations: [Pain in right arm] 11-20-2024 Episodic Other connective tissue disease (1 source) Pain in right arm; Translations: [Right arm pain] Onset: 11-20-2024 Episodic Other diseases of bladder and urethra (20 sources) Overactive bladder; Translations: [Overactive bladder] Onset: 12-30-2022 09-08-2022 Chronic Comment on above: Olivia. Tried acupu ncture/somewhat helpful Other diseases of bladder and urethra (4 sources) Overactive bladder; Translations: [Hypertonicity of bladder] 09-17-2023 Chronic Other ear and sense organ disorders (1 source) Otitis externa of bilateral ears; Translations: [Unspecified otitis externa, bilateral] 04-14-2023 Chronic Other female genital disorders (1 source) Pruritus of vagina; Translations: [Other specified noninflammatory disorders of vagina] 10-09-2024 Episodic Other female genital disorders (8 sources) Atrophic vulva; Translations: [Atrophy of vulva] 10-25-2024 Episodic Other gastrointestinal disorders (1 source) Eructation; Translations: [Belching symptom] Onset: 01-14-2023 Episodic Other gastrointestinal disorders (1 source) Abdominal bloating; Translations: [Abdominal distension (gaseous)] 04-20-2023 Episodic Other gastrointestinal disorders (2 sources) Belching symptom; Translations: [Eructation] 01-06-2023 Episodic Other lower respiratory disease (2 sources) Dyspnea; Translations: [Shortness of breath] Episodic Other lower respiratory disease (2 sources) Shortness of breath; Translations: [Shortness of breath] Onset: 12-22-2022 Episodic Other nervous system disorders (1 source) Other chronic pain; Translations: [Chronic bilateral low back pain without sciatica] Onset: 09-25-2024 Chronic Other non-traumatic joint disorders (1 source) Shoulder pain; Translations: [Pain in left shoulder] Episodic Other nutritional; endocrine; and metabolic disorders (20 sources) Hypomagnesemia; Translations: [Hypomagnesemia] Onset: 12-30-2022 10-08-2022 Chronic Other nutritional; endocrine; and metabolic disorders (2 sources) Hypomagnesemia; Translations: [Hypomagnesemia] Onset: 09-26-2024 Chronic Other skin disorders (2 sources) Eruption; Translations: [Rash and other nonspecific skin eruption] 06-24-2023 Episodic Other upper respiratory disease (20 sources) Allergic rhinitis; Translations: [Allergic rhinitis, unspecified] Onset: 06-05-2019 07-30-2022 Chronic Other upper respiratory infections (1 source) Acute upper respiratory infection; Translations: [Acute upper respiratory infection, unspecified] 09-16-2024 Episodic Peripheral and visceral atherosclerosis (20 sources) Atherosclerosis of aorta; Translations: [Atherosclerosis of aorta] Onset: 11-23-2018 12-30-2022 Chronic Residual codes; unclassified (20 sources) Abnormal cytology findings; Translations: [Low grade squamous intraepithelial lesion (LGSIL)] 07-25-2021 Episodic Comment on above: 2022 pap hpv 1 year: 2023 neg pap and HPV Residual codes; unclassified (1 source) Family history of malignant neoplasm of digestive organs; Translations: [Family history of colon cancer] Onset: 11-15-2024 Episodic Residual codes; unclassified (1 source) Other general symptoms and signs; Translations: [Other general symptoms and signs] Onset: 11-04-2024 Episodic Spondylosis; intervertebral disc disorders; other back problems (2 sources) Degeneration of lumbar intervertebral disc; Translations: [Degeneration of intervertebral disc of lumbar region with discogenic back pain] 08-21-2024 Chronic Sprains and strains (2 sources) Strain of muscle of right upper arm; Translations: [Strain of unspecified muscle, fascia and tendon at shoulder and upper arm level, right arm, initial encounter] Onset: 11-20-2024 11-20-2024 Episodic Substance-related disorders (1 source) Opioid dependence, uncomplicated; Translations: [Opioid dependence, uncomplicated] Onset: 12-05-2024 Chronic Unclassified (3 sources) Venereal disease screening ; [...] Translations: [Post-op] Onset: 12-10-2022 Unclassified (1 source) Low back pain, unspecified; Translations: [Low back pain, unspecified] Onset: 12-25-2024 Unclassified (1 source) Chronic bilateral low back pain without sciatica; Translations: [Chronic bilateral low back pain without sciatica] Onset: 09-25-2024 Past or Other Problems Problem Classification Problem Date Documented Da te Episodic/Chronic Acute and unspecified renal failure (20 sources) Acute renal failure syndrome; Translations: [Acute kidney failure, unspecified] Onset: 09-27-2024 09-27-2024 Episodic Bacterial infection; unspecified site (20 sources) Bacteremia caused by Gram-negative bacteria; Translations: [Bacteremia] Onset: 09-27-2024 09-27-2024 Episodic Complications of surgical procedures or medical care (20 sources) Delayed recovery from general anesthesia; Translations: [Other complications of anesthesia, initial encounter] Onset: 11-20-2022 11-20-2022 Episodic Comment on above: AFTER CABG Conditions associated with dizziness or vertigo (1 source) Dizziness and giddiness; Translations: [Lightheadedness] Onset: 09-25-2024 Episodic Coronary atherosclerosis and other heart disease (10 sources) Presence of aortocoronary bypass graft; Translations: [Personal history of surgery to heart and great vessels, presenting hazards to health] Onset: 11-14-2022 01-25-2023 Episodic Deficiency and other anemia (20 sources) Iron deficiency anemia; Translations: [Iron deficiency anemia, unspecified] Onset: 2024 08-22-2024 Episodic Deficiency and other anemia (3 sources) Iron deficiency anemia, unspecified; Translations: [Iron deficiency anemia, unspecified iron deficiency anemia type] Onset: 07-26-2024 Episodic Deficiency and other anemia (1 source) Other iron deficiency anemias; Translations: [Other iron deficiency anemia] Onset: 2024 Episodic Fluid and electrolyte disorders (20 sources) Hypokalemia; Translations: [Hypokalemia] Onset: 09-26-2024 09-26-2024 Episodic Genitourinary symptoms and ill-defined conditions (20 sources) Bladder pain; Translations: [Other symptoms and signs involving the genitourinary system] Onset: 12-30-2022 07-16-2021 Episodic Malaise and fatigue (1 source) Weakness; Translations: [Generalized weakness] Onset: 09-04-2024 Episodic Other acquired deformities (2 sources) Spondylolisthesis, lumbar region; Translations: [Spondylolisthesis, lumbar region] Onset: 02-23-2024 Episodic Other and unspecified benign neoplasm (1 source) Melanocytic nevi, unspecified; Translations: [Change in mole] Onset: 09-20-2024 Episodic Other connective tissue disease (1 source) Fibromyalgia; Translations: [Fibromyalgia] Onset: 09-25-2024 Episodic Other gastrointestinal disorders (20 sources) Burping; Translations: [Eructation] Onset: 12-29-2022 12-22-2022 Episodic Other nervous system disorders (20 sources) Abnormal gait; Translations: [Unspecified abnormalities of gait and mobility] Onset: 09-26-2024 09-26-2024 Episodic Other non-traumatic joint disorders (20 sources) Multiple joint pain; Translations: [Pain in unspecified joint] Onset: 03-07-2018 Episodic Other screening for suspected conditions (not mental disorders or infectious disease) (20 sources) Abnormal cervical Papanicolaou smear; Translations: [Unspecified abnormal cytological findings in specimens from cervix uteri] Onset: 06-16-2022 07-25-2021 Episodic Residual codes; unclassified (20 sources) Family history of cancer of colon; Translations: [Family history of malignant neoplasm of digestive organs] Onset: 12-30-2022 05-27-2020 Episodic Comment on above: sister Residual codes; unclassified (20 sources) Insomnia; Translations: [Insomnia, unspecified] Onset: 01-26-2018 07-30-2022 Episodic Residual codes; unclassified (20 sources) History of clinical finding in subject; Translations: [Personal history of other specified conditions] Onset: 11-20-2022 11-20-2022 Episodic Screening and history of mental health and substance abuse codes (2 sources) Encounter for screening for depression; Translations: [Encounter for screening examination for other mental health and behavioral disorders] Onset: 07-26-2024 Episodic Septicemia (except in labor) (2 sources) Sepsis due to Escherichia coli; Translations: [Sepsis due to Escherichia coli [E. coli]] Onset: 09-25-2024 10-02-2024 Episodic Spondylosis; intervertebral disc disorders; other back problems (20 sources) Spinal stenosis; Translations: [Spinal stenosis, site unspecified] Onset: 06-24-2020 07-30-2022 Episodic Unclassified (20 sources) H/o difficulty anesthesia 03-16-2022 Comment on above: too much anesthesia x2 Unclassified (20 sources) fallopian tube surgery 03-16-2022 Urinary tract infections (20 sources) Pyelonephritis; Translations: [Tubulo-interstitia l nephritis, not specified as acute or chronic] Onset: 09-26-2024 09-26-2024 Episodic Viral infection (3 sources) Human papilloma virus infection; Translations: [Papillomavirus as the cause of diseases classified elsewhere] Onset: 04-07-2017 04-07-2017 Episodic Results Test Name Value Interpretation Reference Range Facility Magnesium SerPl-mCncon 01-27 Magnesium [Mass/Vol] 1.3 mg/dL Low 1.7-2.3 [facility] Comment on above: Order Comment: Speci men Type: BLOOD SPECIMENOrdering Facility: [facility] Address: [address] [place] [address] Performed By: #### 1 [id number] ####[facility] LABCLIA [id number] [place] [address] [place] Orthopedic Visit Reporton Orthopedic Visit Report [facility] [address] [place] [address] OFFICE VISIT Date of Service: 01/26/25 MR#: [id number] Acct: [id number] Name: JANESSA BARON Rep #: [id number] : 1950 Provider: Dr. Dominic Issa MD Age/Sex: 74/F Location: [facility] [email or web address] Status: Signed Intake Vital Signs 12/25/24 15:40 Height 5 ft 3 in Intake Visit Reasons: lumbar spine Chief Complaint: pre-op Accompanied by: Allergies doxycycline Allergy (Mild, Verified 01/26/25 12:55) unknown sulfamethoxazole (From Bactrim) Allergy (Mild, Verified 01/26/25 12:55) unknown trimethoprim (From Bactrim) Allergy (Mild, Verified 01/26/25 12:55) unknown amoxicillin (From Augmentin) Allergy (Verified 01/26/25 12:55) Hives cefprozil (From Cefzil) Allergy (Verified 01/26/25 12:55) Hives clavulanic acid (From Augmentin) Allergy (Verified 01/26/25 12:55) Hives dextromethorphan (From NyQuil) Allergy (Verified 01/26/25 12:55) Hives doxylamine (From NyQuil) Allergy (Verified 01/26/25 12:55) Hives erythromycin base Allergy (Verified 01/26/25 12:55) Hives gatifloxacin (From Tequin) Allergy (Verified 01/26/25 12:55) Hives lincomycin Allergy (Verified 01/26/25 12:55) Hives metoclopramide (From Reglan) Allergy (Verified 01/26/25 12:55) Other pseudoephedrine (From NyQuil) Allergy (Verified 01/26/25 12:55) Hives empagliflozin (From Jardiance) Adverse Reaction (Severe, Verified 01/26/25 12:55) UTI/sepsis morphine Adverse Reaction (Intermediate, Verified 01/26/25 12:55) tachycardia Medications ???Medication ???Instructions ???Recorded ???Confirmed ???Type montelukast 10 mg tablet 10 mg PO QHS ASTHMA 05/21/1601/26 History cetirizine 10 mg capsule (Zyrtec) 5 mg PO DAILY allergy symptoms 01/26/25 History Al hyd-Mg tr-alg ac-sod bicarb 80 1 tab PO DAILY PRN GAS 05/22/19 0 01/26/25 History mg-14.2 mg chewable tablet (Gaviscon) metformin 1,000 mg 24 hr 1,000 mg PO BID DIABETES 05/22/19 01/26/25 History tablet,extended release (gastric reten.) albuterol sulfate 90 mcg/actuation 2 puff inhalation Q6H PRN 01/26/25 History aerosol inhaler Shortness Of Breath Or Wheezing aspirin 81 mg tablet,delayed 81 mg PO DAILY HEART HEALTH 01/26/25 History release (Adult Low Dose Aspirin) tramadol 50 mg tablet 50 mg PO 4X/DAY Pain 01/04/2301/14 History glimepiride 4 mg tablet (Amaryl) 4 mg PO DAILY DIABETES 03/11/23 History rosuvastatin 10 mg tablet (Crestor) 10 mg PO QHS HLD 09/17/2301/26 History omeprazole 40 mg capsule,delayed 40 mg PO BID GERD 10/12/23 5 History release pioglitazone 45 mg tablet (Actos) 45 mg PO DAILY DIABETES 01/11/24 01/26/25 History lisinopril 20 1 tab PO DAILY htn 01/25/24 History mg-hydrochlorothiazide 12.5 mg tablet triamcinolone acetonide 0.1 % 1 applic topical QDAY PRN SKIN 01/26/25 History topical cream ipratropium 0.5 mg-albuterol 3 mg 3 ml inhalation Q20M PRN shortnes s 08/29/24 01/26/25 History (2.5 mg base)/3 mL nebulization of breath or wheezing soln nystatin 100,000 unit/gram topical 1 applic topical TID PRN YEAST 0 09/18/24 01/26/25 Rx powder (Nystop) INFECTION #15 mg sitagliptin phosphate 100 mg 100 mg PO QDAY diabetic 10/25/24 0 01/26/25 History tablet (Januvia) acetaminophen 500 mg tablet 1,000 mg PO TID PRN pain 01/17/25 01/26/25 History (Tylenol Extra Strength) calcium carb-ergocalciferol (vit 2 tab PO BID supplement 01/17/25 0 01/26/25 History D2) 500 mg (1,250 mg)-200 unit tablet multivitamin with minerals-folic 1 tab PO DAILY supplement 01/17/25 01/26/25 History acid 120 mcg chewable tablet (Adult Multivitamin Gummies) Have you fallen in the past year?: No PFSH Medical History Sepsis Post-menopausal Depression Walker as ambulation aid Bladder disease Low iron Back pain Dietary restriction History of pain when walking History of transesophageal echocardiography (CHERI) Wears glasses Anxiety Restless legs History of hiatal hernia Gastric reflux History of IBS Non-smoker History of edema History of echocardiogram Cardiology follow-up encounter Left carotid bruit Postoperative atrial fibrillation H/o difficulty anesthesia Stomach inflammation Carotid stenosis Hyperlipidemia Hypertension Diabetes Asthma Arthritis Surgical History Hx of vascular surgery Hx of right cataract extraction Hx of left cataract extraction History of colonoscopy History of esophagogastroduodenoscop y (EGD) History of cardiac catheterization H/O removal of cyst History of lumpectomy H/O knee surger (more content not included)... Normal [facility] CNOVon 01-24-2025 CNOV Office Visit (FAMMAS ) ----- JANESSA BARON ([id number]) 1950 F Date Time Provider Department 01/24/25 2:10 PM KALI BACON During your visit today, we recorded the following information about you: Temperature Pulse Respiration Blood pressure 97.1 degrees 80/minute 18/minute 124/78 Weight Height 87.1 kg 1.6 m Spring Shipley LPN 01/24/2025 2:53 PM Signed Patient is in office for pre surgical clearance. Patient is having 360 Lumbar fusion L4-L5 on 01-31-2025. Physician performing procedure is [facility]. Magnesium low at 0.9 per labs completed 01-22-2025 by surgeon Spring Shipley LPN January 24, 2025 2:03 PM Kali Bacon MD 01/24/2025 2:53 PM Signed Subjective Janessa Baron is a 74-year-old female with a history of DM, presenting for follow-up on recent lab results and EKG findings. EKG Abnormalities: - Recent EKG showed an inferior myocardial infarction, age undetermined. - Previous EKG in September also indicated an inferior infarct. - Denies chest pain, dyspnea, or neurological symptoms. - No known history of TN. - Followed by cardiology; last visit was a yearly checkup with Dr. Pastor, who reported everything was okay. Magnesium Deficiency: - Recent lab work showed critically low magnesium levels. - Started taking OTC magnesium supplements two days ago. - Denies palpitations, seizures, or tetany. - Reports dizziness on two occasions, yesterday and a few days prior, which she attributes to low magnesium levels. Vitamin B12 Deficiency: - History of low vitamin B12 levels. - Receiving monthly vitamin B12 injections; missed the most recent injection scheduled the day before surgery. Iron Deficiency: - History of low iron levels, treated with infusions. - Recent recheck in October showed improved iron levels. DM: - Last A1c was 6.5. - Denies hypoglycemic episodes. Weight Management: - Weight fluctuates between 189-192 lbs. - Actively trying to maintain weight. Surgical History: - Scheduled for L4-L5 lumbar fusion surgery. - Reports difficulty waking up from anesthesia in the past, but denies any issues with hypotension during procedures. - History of carotid stenting; recent carotid artery scan was normal. Review of Systems GENERAL: No weight loss, malaise or fevers. HEENT: Negative for frequent or significant headaches, no changes in vision or hearing, no nose bleeds or other nasal problems NECK: Negative for lumps, goiter, pain and significant neck swelling RESPIRATORY: Negative for cough, dyspnea or shortness of breath CARDIOVASCULAR: Negative for chest pain, leg swelling, CHF or palpitations GI: No nausea, vomiting, diarrhea, heartburn, abdominal pain, blood in stool or black stool GENITOURINARY: No history of dysuria, frequency or incontinence MUSCULOSKELETAL: Positive for back pain and muscle pain in the arm, negative for joint pain or swelling SKIN: Negative for lesions, rash and itching PSYCH: Negative for anxiety or depression HEMATOLOGY/LYMPHOLOGY: No bleeding concerns NEURO: Positive for dizziness, negative for headaches, syncope, paralysis, seizures or tremors ENDOCRINE: No history of polydipsia, increased thirst or other endocrine symptoms. PAST SURGICAL HISTORY Procedure Laterality Date BREAST BIOPSY Bilateral benign BREAST SURGERY HX CHOLECYSTECTOMY COLONOSCOPY 05/2017 COLONOSCOPY SCREENING 2019 EGD 04/2017 EGD DIAGNOSTIC 01/2023 F SALPINGO-OOPHORECTOMY Left IR RT HEART CATH 11/10/2022 PAST SURGICAL HISTORY OF left TM repair PAST SURGICAL HISTORY OF Left 12/1991 Repair of hole in left eardrum PAST SURGICAL HISTORY OF 06/03/1998 Scalp - removal of sebaceaous cyst PAST SURGICAL HISTORY OF 11/26/2022 Triple Bypass PAST SURGICAL HISTORY OF 01/25/2024 Left carotid artery stint REMV CATARACT EXTRACAP,INSERT LENS Left REMV CATARACT EXTRACAP,INSERT LENS Right TUBAL LIGATION PAST MEDICAL HISTORY Diagnosis Date Asthma (HCC) Carotid stenosis Delayed emergence from general anesthesia deep anesthesia 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) 05/22/2022 Diabetes mellitus, type 2 (HCC) Hyperlipidemia Hypertension Sliding hiatal hernia FAMILY HISTORY Problem Relation Age of Onset Heart Mother Stroke Mother Emphysema Father Heart Father Heart Attack Father Colon Cancer Sister 67 Diabetes Sister Diabetes Sister Heart Sister Thyroid Cancer Brother Social History Tobacco Use Smoking status: Never Smokeless tobacco: Never Vaping Use Vaping status: Never Used Substance Use Topics Alcohol use: Not Currently Drug use: Not Currently ALLERGIES Allergen Reactions Empagliflozin Unknown Metoclopramide Unknown Sulfamethoxazole-Tr* Unknown Morphine Unknown Augmentin [Amoxicil* Rash Cefzil [Cefprozil] Rash Dayquil Allergy 12-* Hives Dextro (more content not included)... Normal [facility] Hepatitis A AB, Totalon 01-14 HEPATITIS A,TOT Negative Normal Negative [facility] Comment on above: Result Comment: Comm ent: The HAV total antibody assay detects both IgG and IgM but does not differentiate between them. A negative result suggests susceptibility to infection. A positive result could be due to vaccination, previously resolved infection or active infection. Testing for HAV IgM should be performed if active HAV infection is suspected. [facility] offers profiles that will automatically reflex positive HAV total antibody results to IgM (e.g., panel #[id number] HAV Antibody w/ Rfx). Performed at: [address] [id number] Computer Programmer Analyst: Guero Dawson PhD, Phone: [phone] Performed By: #### L [id number] #### [facility] [address] [facility] [place], [address] MRSA/SAID NASAL SCREENon MRSA+SAID SCRN Reason for Exam: pre op MRSA MRSA Negative S. AUREUS S. aureus Negative Normal [facility] Comment on above: Performed By: #### L [id number] #### [facility] [address] [place], [address] 12 Lead EKGon 01-22-[address] [facility] [address] [place] [address] 12 Lead EKG 01/22/25 0753 MR#: [id number] Acct: [id number] Name: JANESSA BARON Rep #: [id number] : 1950 74 From: Isai Fairbanks MD Attending Dr: Dr. Dominic Issa MD Status: PRE IN Ordering Dr: Dominic Issa MD Date: 01/22/25 Location: [facility] Sex: F C Admitted: Test Reason : PREOP Blood Pressure : */* mmHG Vent. Rate : 87 BPM Atrial Rate : 87 BPM P-R Int : 150 ms QRS Dur : 82 ms QT Int : 382 ms P-R-T Axes : 35 -23 98 degrees QTcB Int : 459 ms Normal sinus rhythm Inferior infarct , age undetermined Abnormal ECG When compared with ECG of 31-Aug-2024 09:36, Inferior infarct is now Present Confirmed by Isai Fairbanks ([id number]), manager editorial SHAILESH MUNOZ ([id number]) on 01/22/2025 10:43:40 AM Referred By: Dominic Issa Confirmed By: Isai Fairbanks 01/22/25 1043 Date Isai Fairbanks MD CC: Dr. Dominic Issa MD; Dr. Kali Bacon MD Signed Normal [facility] Basic Metabolic Profile (BMP )on 01-22-2025 BUN/CRE 18.6 RATIO Normal 10-20 [facility] Comment on above: Performed By: #### L 503.6030 #### [facility] [address] [place], [address] Calcium [Mass/Vol] 9.2 mg/dL Normal 7.6-11.0 [facility] Comment on above: Performed By: #### L 503.6030 #### [facility] [address] [place], [address] Chloride [Moles/Vol] 98 mmol/L Normal 98-108 [facility] Comment on above: Performed By: #### L 503.6030 #### [facility] [address] [place], [address] CO2 [Moles/Vol] 25.4 mmol/L Normal 21.0-32.0 [facility] Comment on above: Performed By: #### L 503.6030 #### [facility] [address] [place], [address] Creatinine [Mass/Vol] 0.77 mg/dL Normal 0.70-1.20 [facility] Comment on above: Performed By: #### L 503.6030 #### [facility] [address] [place], [address] GAP 16 High 5-15 [facility] Comment on above: Performed By: #### L 503.6030 #### [facility] [address] [place], [address] GFR/1.73 sq M.predicted among non-blacks MDRD (S/P/Bld) [Vol rate/Area] 81 mL/min/{1.73_m2} Normal >60 [facility] Comment on above: Result Comment: mL/m in/1.73m2 CKD-EPI Creatinine Equation (2020) Performed By: #### L 503.6030 #### [facility] [address] [place], [address] Glucose [Mass/Vol] 139 mg/dL High 70-99 [facility] Comment on above: Performed By: #### L 503.6030 #### [facility] [address] [place], [address] Potassium [Moles/Vol] 3.6 mmol/L Normal 3.3-5.1 [facility] Comment on above: Performed By: #### L 503.6030 #### [facility] [address] [place], [address] Sodium [Moles/Vol] 139 mmol/L Normal 133-145 [facility] Comment on above: Performed By: #### L 503.6030 #### [facility] [address] [place], [address] Urea nitrogen [Mass/Vol] 14 mg/dL Normal 4-19 [facility] Comment on above: Performed By: #### L 503.6030 #### [facility] [address] [place], [address] CBC W/Diff, Automatedon 06-0 9-2025 Absolute Lymph 2.79 X10 3/uL Normal 0.83-4.51 [facility] Comment on above: Performed By: #### L 503.6030 #### [facility] [address] [place], [address] Absolute Neut 7.0 X10 3/uL Normal 2.0-7.7 [facility] Comment on above: Performed By: #### L 503.6030 #### [facility] [address] [place], [address] Basophils/100 WBC (Bld) 0.3 % Normal 0-1 [facility] Comment on above: Performed By: #### L 503.6030 #### [facility] [address] [place], [address] Eosinophils/100 WBC (Bld) 2.0 % Normal 0-5 [facility] Comment on above: Performed By: #### L 503.6030 #### [facility] [address] [place], [address] Erythrocyte distribution width (RBC) [Ratio] 13.7 % Normal 11.6-14.6 [facility] Comment on above: Performed By: #### L 503.6030 #### [facility] [address] [place], [address] Hematocrit (Bld) [Volume fraction] 37.9 % Normal 37-47 [facility] Comment on above: Performed By: #### L 503.6030 #### [facility] [address] [place], [address] Hemoglobin (Bld) [Mass/Vol] 12.7 g/dL Normal 12.0-15.0 [facility] Comment on above: Performed By: #### L 503.6030 #### [facility] [address] [place], [address] IG% 0.600 Normal 0.0-0.9 [facility] Comment on above: Result Comment: IG% - Immature Granulocytes (promyelocytes, myelocytes and metamyelocytes) > 1% indicates that a LEFT SHIFT is Present. Performed By: #### L 503.6030 #### [facility] [address] [place], [address] Lymphocytes/100 WBC (Bld) 25.7 % Normal 19-41 [facility] Comment on above: Performed By: #### L 503.6030 #### [facility] [address] [place], [address] MCH (RBC) [Entitic mass] 29.9 pg Normal 27.0-32.0 [facility] Comment on above: Performed By: #### L 503.6030 #### [facility] [address] [place], [address] MCHC (RBC) [Mass/Vol] 33.5 g/dL Normal 32-36 [facility] Comment on above: Performed By: #### L 503.6030 #### [facility] [address] [place], [address] MCV (RBC) [Entitic vol] 89.2 fL Normal 81-99 [facility] Comment on above: Performed By: #### L 503.6030 #### [facility] [address] [place], [address] Monocytes/100 WBC (Bld) 7.3 % Normal 0-10 [facility] Comment on above: Performed By: #### L 503.6044 #### [facility] [address] [place], [address] Neutrophils/100 WBC (Bld) 64.1 % Normal 47-70 [facility] Comment on above: Performed By: #### L 503.6030 #### [facility] [address] [place], [address] Nucleated RBC (Bld) [#/Vol] 0 10*3/uL Normal 0-5 [facility] Comment on above: Performed By: #### L 503.6030 #### [facility] [address] [place], [address] Platelet mean volume (Bld) [Entitic vol] 10.2 fL Normal 6.2-12.0 [facility] Comment on above: Performed By: #### L 503.6030 #### [facility] [address] [place], [address] Platelets (Bld) [#/Vol] 276 10*3/uL Normal 150-450 [facility] Comment on above: Performed By: #### L 503.6030 #### [facility] [address] [place], [address] RBC (Bld) [#/Vol] 4.25 10*6/uL Normal 4.2-5.4 [facility] Comment on above: Performed By: #### L 503.6030 #### [facility] [address] [place], [address] RDW SD 44.5 fl High 35.1-43.9 [facility] Comment on above: Performed By: #### L [id number] #### [facility] [address] [place], [address] WBC (Bld) [#/Vol] 10.9 10*3/uL Normal 4.4-11.0 [facility] Comment on above: Performed By: #### L 503.6030 #### [facility] [address] [place], [place], [address] HIVon 01-22-2025 HIV Non-Reactive Normal Nonreactive [facility] Comment on above: Result Comment: Non- Reactive Reactive Repeatedly reactive samples must be confirmed according to CDC recommended confirmatory algorithms. The subresults for either HIVAG or AHIV can be used as an aid in the selection of the confirmation algorithm for reactive samples. Send out specimens with Reactive results to [facility] for confirmation. Order the HIV antibody detection and differentiation: [id number] Performed By: #### L 503.6030 #### [facility] [address] [place], [place], [address] Hemoglobin A1con 01-22-2025 HbA1c (Bld) [Mass fraction] 6.5 % High <=5.6 [facility] Comment on above: Result Comment: Norm al < 5.7 % Prediabetic 5.7 - 6.4 % Diabetic >or= 6.5 % Please note range changes. Performed By: #### L 503.6030 #### [facility] [address] [place], [place], [address] MR/PAT.ANEon 01-22-2025 MR/PAT.ANE [facility] Medical Records Department [address] [place] [address] PAT - Anesthesia 01/22/25 1329 MR#: [id number] Acct: [id number] Name: JANESSA BARON Rep #: [id number] : 1950 74 From: Guilherme Freeman MD PCP: Dr. Kali Bacon MD Status:PRE IN Y Race: C Location: [facility] Pre-Assessment Diagnosis/Proposed Procedure Planned Operative Procedure(s): 360 Lumbar Fusion L4-5, possible cement augmentation Anesthesia History Anesthesia History - system controller: Anesthesia History - system controller Hx Hospitalization Yes: 09-25-24 sepsis 01/17/25 08:53 [facility] Any Problems With Anesthesia Yes: slow to wake up 01/17/25 08:53 Cholinesterase deficiency No 01/17/25 08:53 You/Your Family Experience No 01/17/25 08:53 fever (hyperthermia) with Relationship Recent Exposure to Contagious No 01/25/24 06:15 Disease Does patient have nerve No 01/17/25 08:53 stimulator Patient instructed to have device shut off --Does patient have Pacemaker or ICD? When Was Last Pacemaker Check QUESTION #4 FULL TEXT: You/Your Family Experience fever (hyperthermia) with Anesthesia Last Oral Intake Last Oral intake: Last Oral Intake NPO since Meds taken in AM with sips of water? Meds patient instructed to take am of surgery PONV PONV - system controller: PONV - system controller Female Yes 01/17/25 08:53 HX of Motion Sickness Yes 01/17/25 08:53 HX of N/V After Surgery No 01/17/25 08:53 Non-Smoker Yes 01/17/25 08:53 Duration of Surgery greater Yes 01/17/25 08:53 than 60 minutes Number of Risk Factors 4 01/17/25 08:53 PONV Score Severe Risk 01/17/25 08:53 Height Weight Height Weight: Anesthesia: Height Weight Height 5 ft 3 in 12/25/24 15:40 Respiratory Assessment Respiratory Assessment - system controller: Respiratory Tract Infection Hx - system controller Hx Respiratory Tract Infection No 01/17/25 08:53 STOP Sleep Apnea STOP Sleep Apnea - system controller: STOP Sleep Apnea - system controller Hx Hypertension Yes: on meds 01/17/25 08:53 Hx Sleep Apnea No 01/17/25 08:53 CPAP BIPAP Do you snore loudly (louder No 01/17/25 08:53 than talking or can be heard Do you often feel tired/ No 01/17/25 08:53 fatigued/ sleepy during daytime? Has anyone observed you stop No 01/17/25 08:53 breathing during sleep? STOP Results Negative 01/17/25 08:53 QUESTION #5 FULL TEXT : Do you snore loudly (louder than talking or can be heard through closed doors)? 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 Specify any problems Hx of Preganancy in last 3 No 01/17/25 08:53 Months Nurse Filling Out Transfusion JZOLLINGE 01/17/25 08:53 Questions: Date: 01/17/25 01/17/25 08:53 Time: 08:55 01/17/25 08:53 Patient unable to answer at this time (ie. confused, unrespo /Reproduction History /Reproductive History - system controller: /Reproductive Hx- system controller Hx Now No 01/17/25 08:53 Gestational Age (in weeks): EDC: Hx Hx Para Hx Section SAB No 01/17/25 08:53 PFSH Medical History (Updated 01/17/25 @ 09:21 by Laura Nieves) Sepsis Post-menopausal Depression Walker as ambulation aid Bladder disease Low iron Back pain Dietary restriction History of pain when walking History of transesophageal echocardiography (CHERI) Wears glasses Anxiety Restless legs History of hiatal hernia Gastric reflux History of IBS Non-smoker History of edema History of echocardiogram Cardiology follow-up encounter Left carotid bruit Postoperative atrial fibrillation H/o difficulty anesthesia Stomach inflammation Carotid stenosis Hyperlipidemia Hypertension Diabetes Asthma Arthritis Home Medications ???Medication ???Instructions ???Recorded ???Last Taken ???Type montelukast 10 mg tablet 10 mg PO QHS ASTHMA 05/21/1601/23 22:00 History cetirizine 10 mg capsule (Zyrtec) 5 mg PO DAILY allergy symp (more content not included)... Normal [facility] Magnesiumon 01-22-2025 Magnesium [Mass/Vol] 0.9 mg/dL Invalid Interpretation Code 1.5-2.2 [facility] Comment on above: Result Comment: Crit ical Result(s) Called at 0853: by: LELA LE TO GLENNA. ??Results read back by same. Performed By: #### L 503.6030 #### [facility] [address] [place], [place], [address] Type AND Screen - PAT ONLYon 01-22-2025 Ab SCREEN GEL Negative Normal [facility] Comment on above: Order Comment: Reaso n for Laboratory Test pre [id number] FUSION Performed By: #### L 503.6030 #### [facility] [address] [place], [place], [address] Duplex ultrasound of carotid artery reportOrdered By: Abraham Gilbert on 01-18-2025 Study report [facility] [address] [place] [address] Carotid Duplex Ultrasound 01/16/25 0956 MR#: [id number] Acct: [id number] Name: JANESSA BARON Rep #:[id number] : 1950 74 From: Abraham Cazares Attending Dr: INDU Acuña Stat us: REG CLI Ordering Dr: Genesis Carbajal Date: Location: [facility] Sex: F C Admitted: Reason For Study Reason For Study: S/P left TCAR Rt. Velocities/BP Lt. Velocities/BP Prox CCA 61.7/9.7 cm/sec. Prox CCA 65.4/10.2 cm/sec. Mid CCA 52.2/6.9 cm/sec. Mid CCA Prox to Stent, 71.6/13.9 cm/sec. Dist CCA 65.5/13.5 cm/sec. Dist CCA Prox Stent, 74/16.3 cm/sec. Prox ICA 184.8/21.5 cm/sec. Prox ICA Mid Stent, 122.6/24.1 cm/sec. Mid ICA 66.6/13.6 cm/sec. Prox ICA Dist Stent, 133/26.7 cm/sec. Dist ICA 60.8/11.5 cm/sec. Mid ICA Dist to Stent, 91.6/17.3 cm/sec. Rt. ICA/CCA = 3.54. Dist ICA 74.1/13.9 cm/sec. Prox ECA 483.2/34. cm/sec. Lt. ICA/CCA = 1.86. Rt. Vert. 15.9/3.3 cm/sec. Prox ECA 113.8/20.6 cm/sec. Lt. Vert. 68.5/13.5 cm/sec. Right Extracranial There is heterogeneous, irregular atherosclerotic plaque noted in the right common carotid artery. There is heterogeneous, irregular atherosclerotic plaque noted in the right internal carotid artery. There is heterogeneous, irregular atherosclerotic plaque noted in the right external carotid artery. Antegrade flow is noted in the right vertebral artery. Left Extracranial There is intimal thickening but no significant atherosclerotic plaque noted in the left common carotid artery. There is heterogeneous, irregular atherosclerotic plaque noted in the left internal carotid artery. The atherosclerotic plaque causes acoustic shadowing. CCA distal to ICA prox, stent noted. There is heterogeneous, irregular atherosclerotic plaque noted in the left external carotid artery. Antegrade flow is noted in the left vertebral artery. Procedure Carotid Duplex 76781. This is a Carotid Duplex examination using B-mode, color flow and specral Doppler. Exam performed in department. VL/Carotid Duplex Ultrasound Interpretation Summary Moderate (50-69%) stenosis right extracranial internal carotid. Mild (<70%) stenosis left extracranial internal carotid. Patent and antegrade vertebrals bilaterally. ___ Ordering Physician: Genesis Carbajal Referring Physician: Kali Bacon Performed By: Theresa Burch RVT 01/18/25 1041 Date _ Abraham Gilbert MD CC: INDU Acuña; Dr. Kali Bacon MD ~ Date Dictated: 01/16/25955 Date Transcribed: 01/18/25 1041 Construction Executive: Signed [facility] Work Phone: Carotid Duplex Ultrasoundon 01-16-2025 Carotid Duplex Ultrasound [facility] [address] [place] [address] Carotid Duplex Ultrasound 01/16/25955 MR#: [id number] Acct: [id number] Name: JANESSA BARON Rep #: [id number] : 1950 74 From: Abraham Gilbert MD Attending Dr: INDU Acuña Status: REG CLI Ordering Dr: Genesis Carbajal Date: 01/16/25 Location: [facility] Sex: F C Admitted: Reason For Study Reason For Study: S/P left TCAR Rt. Velocities/BP Lt. Velocities/BP Prox CCA 61.7/9.7 cm/sec. Prox CCA 65.4/10.2 cm/sec. Mid CCA 52.2/6.9 cm/sec. Mid CCA Prox to Stent, 71.6/13.9 cm/sec. Dist CCA 65.5/13.5 cm/sec. Dist CCA Prox Stent, 74/16.3 cm/sec. Prox ICA 184.8/21.5 cm/sec. Prox ICA Mid Stent, 122.6/24.1 cm/sec. Mid ICA 66.6/13.6 cm/sec. Prox ICA Dist Stent, 133/26.7 cm/sec. Dist ICA 60.8/11.5 cm/sec. Mid ICA Dist to Stent, 91.6/17.3 cm/sec. Rt. ICA/CCA = 3.54. Dist ICA 74.1/13.9 cm/sec. Prox ECA 483.2/34. cm/sec. Lt. ICA/CCA = 1.86. Rt. Vert. 15.9/3.3 cm/sec. Prox ECA 113.8/20.6 cm/sec. Lt. Vert. 68.5/13.5 cm/sec. Right Extracranial There is heterogeneous, irregular atherosclerotic plaque noted in the right common carotid artery. There is heterogeneous, irregular atherosclerotic plaque noted in the right internal carotid artery. There is heterogeneous, irregular atherosclerotic plaque noted in the right external carotid artery. Antegrade flow is noted in the right vertebral artery. Left Extracranial There is intimal thickening but no significant atherosclerotic plaque noted in the left common carotid artery. There is heterogeneous, irregular atherosclerotic plaque noted in the left internal carotid artery. The atherosclerotic plaque causes acoustic shadowing. CCA distal to ICA prox, stent noted. There is heterogeneous, irregular atherosclerotic plaque noted in the left external carotid artery. Antegrade flow is noted in the left vertebral artery. Procedure Carotid Duplex 10297. This is a Carotid Duplex examination using B-mode, color flow and specral Doppler. Exam performed in department. VL/Carotid Duplex Ultrasound Interpretation Summary Moderate (50-69%) stenosis right extracranial internal carotid. Mild (<70%) stenosis left extracranial internal carotid. Patent and antegrade vertebrals bilaterally. ___ Ordering Physician: Genesis Carbajal Referring Physician: Kali Bacon Performed By: Theresa Burch RVT 01/18/25 1041 Date Abraham Gilbert MD CC: INDU Acuña; Dr. Kali Bacon MD Date Dictated: 01/16/25 0956 Date Transcribed: 01/18/25 104 Construction Executive: Signed [facility] ----- JANESSA BARON ([id number]) 1950 F Date Time Provider Department 12/26/24 KALI BACON During your visit today, we recorded the following information about you: Spring Shipley LPN 12/27/2024 9:54 AM Addendum Patients phoned office requesting that patient be placed on Calcium with vitamin D per Dr. Issa with ortho. This nurse advised for Dr. Issa to fax our office the results of testing that indicated that patient is going to need this medication. This nurse provided fax number to Spring Shipley LPN December 26, 2024 4:25 PM Spring Shipley LPN 12/27/2024 9:55 AM Signed Patients phoned office. Results for bone density are in patients chart from August. If patient is in need of appointment to discuss Calcium and Vitamin D, this nurse will contact to inform Spring Shipley LPN December 27, 2024 9:55 AM Kali Bacon MD 12/28/2024 2:41 PM Signed Calcium plus vitamin D is an [id number] medication. Spring Shipley LPN 12/29/2024 11:34 AM Signed Patient notified of information Spring Shipley LPN December 29, 2024 11:34 AM Allergies As of Date: 12/26/2024 Noted Allergy Reaction EMPAGLIFLOZIN 10/25/2024 16 - Unknown METOCLOPRAMIDE 01/31/2017 16 - Unknown SULFAMETHOXAZOLE-TRIMETHO PRIM 04/01/2017 16 - Unknown MORPHINE 07/24/2020 16 - Unknown AUGMENTIN (AMOXICILLIN-POT CLAVUL*04/27/2018 2 - Rash CEFZIL (CEFPROZIL) 04/27/2018 2 - Rash DAYQUIL ALLERGY 12-HR 04/27/2018 4 - Hives DEXTROMETHORPHAN 01/31/2017 4 - Hives DOXYLAMINE 01/31/2017 4 - Hives ERYTHROMYCIN 04/27/2018 2 - Rash IODINATED CONTRAST MEDIA 05/22/2019 4 - Hives IVP DYE (IODINE) 04/27/2018 16 - Unknown Comments: knot on head LINCOMYCIN 04/27/2018 2 - Rash PSEUDOEPHEDRINE 01/31/2017 4 - Hives REGLAN (METOCLOPRAMIDE HCL) 04/27/2018 5 - Intolerance [id number]-IYB REDUCTASE INHIBIT*01/31/2017 16 - Unknown Comments: Other reaction(s): Other TEQUIN (GATIFLOXACIN) 04/27/2018 2 - Rash DOXYCYCLINE 11/28/2018 16 - Unknown 11 - Vomiting Date Reviewed: 12/26/2024 Reviewed by: Patito Mckeon LPN - Fully Assessed Reason for Visit: Patient Question [1477] Prescriptions as of 12/29/2024 - montelukast (SINGULAIR) 10 mg tablet TAKE 1 TABLET AT BEDTIME - lancets (ONE TOUCH DELICA) 33 gauge 1 each once daily. - cyanocobalamin (VITAMIN B-12) 1,000 mcg tab Take 1 tablet by mouth once daily. - triamcinolone acetonide (KENALOG) 0.1 % cream APPLY TO THE AFFECTED AREA(S) 1-2X DAILY OR WHEN RASH IS FLARED - SITagliptin phosphate (JANUVIA) 100 mg tablet Take 1 tablet by mouth once daily. - hydrOXYzine HCl (ATARAX) 25 mg tablet Take 1 tablet by mouth every 12 hours as needed for anxiety. - predniSONE (DELTASONE) 20 mg tablet Take 3 tablets by mouth once daily. X3d, then 2 po every day x 3d then 1 po every day x 3d, then 1/2 po every day x 4d - benzonatate (TESSALON PERLE) 100 mg capsule Take 1 capsule by mouth three times a day as needed. - glimepiride (AMARYL) 4 mg tablet Take 1 tablet by mouth daily with breakfast. - HYDROcodone-acetaminophen (NORCO) 5-325 mg per tablet Take 1 tablet by mouth every 8 hours as needed for pain. - benzocaine/benzethon Cl (DERMOPLAST ANTIBACTERIAL TOPICAL) Apply to affected area as needed. - lidocaine (SALONPAS) 4 % patch Apply 1 application as directed once daily. - albuterol (PROVENTIL) 2.5 mg /3 mL (0.083 %) nebulizer solution INHALE WITH 1 VIAL IN NEBULIZER EVERY SIX HOURS NEEDED - rosuvastatin (CRESTOR) 10 mg tablet Take 1 tablet by mouth daily at bedtime. - metFORMIN (GLUCOPHAGE) 500 mg tablet Take 2 tablets by mouth two times a day with meals. - blood sugar diagnostic ([employer] ULTRA TEST) test strip Monitor blood sugar daily and as needed. - omeprazole (PRILOSEC) 40 mg capsule Take 1 capsule by mouth two times a day. - pioglitazone (ACTOS) 45 mg tablet Take 1 tablet by mouth once daily. - lisinopril-hydroCHLOROthi azide (ZESTORETIC) 20-12.5 mg per tablet Take 1 tablet by mouth once daily. - ketoconazole (NIZORAL) 2 % cream Apply to affected area once daily for 10 days. - NYSTOP powder APPLY TO THE AFFECTED AREA(S) THREE TIMES DAILY - sucralfate (CARAFATE) 1 gram tablet Take 1 g by mouth three times a day. 1/2 hour before meals - budesonide (PULMICORT) 0.5 mg/2 mL nebulizer solution mix 2 ampules with saline and apply twice daily - gel base no.41, bulk, (HYDROGEL) gel 1 Dose once daily. - blood sugar diagnostic ([employer]terisTOUCH ULTRA TEST) test strip 1 Strip before meals and at bedtime. Use as instructed - aspirin, enteric coated (ASPIRIN, ENTERIC COATED) 81 mg EC tablet Take 81 mg by mouth once daily. - traMADol (ULTRAM) 50 mg tablet Take 50 mg by mouth every 6 hours as needed for pain. - diclofenac (VOLTAREN) 1 % topical gel Apply to affected area four times daily. - mag carb/aluminum hydrox/algin (more content not included)... Normal [facility] L/S Spine Min 4 Viewson 12-14 L/S Spine Min [address] [facility] Imaging Services [address] [place] [address] L/S Spine Min 4 Views MR#: [id number] Acct: [id number] Name: JANESSA BARON Rep #: [id number] : 1950 F 74 From: Rainer Campuzano MD PCP: Dr. Kali Bacon MD Status: DEP AMB Study: L/S Spine Min 4 Views Date of Exam: 12/25/24 Exam# [id number] Ordering Dr: Lynne Miller PROCEDURE: L/S SPINE MIN 4 VIEWS 12/25/2024 REASON FOR EXAM: PAIN TECHNIQUE: Four views; AP, lateral, flexion-extension COMPARISON: 02/03/2024 FINDINGS: 5 [id number] lumbar vertebral body types identified. Mild leftward curvature with slight left pelvic tilt again seen. No acute fracture identified. Aortoiliac atherosclerotic calcification again noted. L3-4 mild disc space narrowing and degenerative endplate change L4-5 with again similar appearing anterolisthesis L4 on L5 and disc space narrowing with degenerative endplate changes L5-S1 spondylosis/discogenic change again seen. No evidence of instability. Multilevel bilateral facet degenerative changes again noted. RAD/L/S Spine Min 4 Views IMPRESSION: No acute fracture identified. Spondylosis/discogenic change with spondylolisthesis as above not significantly changed. Mild leftward curvature with slight left pelvic tilt again seen. Reading Location: [id number] CC: INDU Mendoza; Dr. Kali Bacon MD Construction Executive: Signed Normal [facility] Orthopedic Visit Reporton Orthopedic Visit Report [facility] [address] [place] [address] OFFICE VISIT Date of Service: 12/25/24 MR#: [id number] Acct: [id number] Name: JANESSA BARON Rep #: [id number] : 1950 Provider: Dr. Dominic Issa MD Age/Sex: 74/F Location: [facility] [place] Status: Signed Intake Vital Signs 11/28/24 13:17 12/25/24 15:40 Height 5 ft 3 in 5 ft 3 in Weight: 193 lb BMI 34.2 BP 154/69 H Blood Pressure Location Lt brachial Position Sitting Respiration 16 Pulse 78 Pulse Source Monitor Intake Visit Reasons: lumbar spine Chief Complaint: Annual Accompanied by: Is patient in pain?: Yes Pain scale (1-10): 7 Allergies doxycycline Allergy (Mild, Verified 12/25/24 15:43) unknown sulfamethoxazole (From Bactrim) Allergy (Mild, Verified 12/25/24 15:43) unknown trimethoprim (From Bactrim) Allergy (Mild, Verified 12/25/24 15:43) unknown amoxicillin (From Augmentin) Allergy (Verified 12/25/24 15:43) Hives cefprozil (From Cefzil) Allergy (Verified 12/25/24 15:43) Hives clavulanic acid (From Augmentin) Allergy (Verified 12/25/24 15:43) Hives dextromethorphan (From NyQuil) Allergy (Verified 12/25/24 15:43) Hives doxylamine (From NyQuil) Allergy (Verified 12/25/24 15:43) Hives erythromycin base Allergy (Verified 12/25/24 15:43) Hives gatifloxacin (From Tequin) Allergy (Verified 12/25/24 15:43) Hives lincomycin Allergy (Verified 12/25/24 15:43) Hives metoclopramide (From Reglan) Allergy (Verified 12/25/24 15:43) Other pseudoephedrine (From NyQuil) Allergy (Verified 12/25/24 15:43) Hives empagliflozin (From Jardiance) Adverse Reaction (Severe, Verified 12/25/24 15:43) UTI/sepsis morphine Adverse Reaction (Intermediate, Verified 12/25/24 15:43) tachycardia Medications ???Medication ???Instructions ???Recorded ???Confirmed ???Type montelukast 10 mg tablet 10 mg PO QHS ASTHMA 05/21/1612/25 History cetirizine 10 mg capsule (Zyrtec) 5 mg PO DAILY allergy symptoms 12/25/24 History Al hyd-Mg tr-alg ac-sod bicarb 80 1 tab PO DAILY PRN GAS 05/22/19 0 12/25/24 History mg-14.2 mg chewable tablet (Gaviscon) metformin 1,000 mg 24 hr 1,000 mg PO BID DIABETES 05/22/19 12/25/24 History tablet,extended release (gastric reten.) albuterol sulfate 90 mcg/actuation 2 puff inhalation Q6H PRN 12/25/24 History aerosol inhaler Shortness Of Breath Or Wheezing aspirin 81 mg tablet,delayed 81 mg PO DAILY HEART HEALTH 12/25/24 History release (Adult Low Dose Aspirin) tramadol 50 mg tablet 50 mg PO 4X/DAY Pain 01/04/2312/14 History glimepiride 4 mg tablet (Amaryl) 4 mg PO DAILY DIABETES 03/11/23 History rosuvastatin 10 mg tablet (Crestor) 10 mg PO QHS HLD 09/17/2312/25 History omeprazole 40 mg capsule,delayed 40 mg PO BID GERD 10/12/23 5 History release pioglitazone 45 mg tablet (Actos) 45 mg PO DAILY DIABETES 01/11/24 12/25/24 History lisinopril 20 1 tab PO DAILY htn 01/25/24 History mg-hydrochlorothiazide 12.5 mg tablet triamcinolone acetonide 0.1 % 1 applic topical QDAY PRN SKIN 12/25/24 History topical cream ipratropium 0.5 mg-albuterol 3 mg 3 ml inhalation Q20M PRN shortnes s 08/29/24 12/25/24 History (2.5 mg base)/3 mL nebulization of breath or wheezing soln nystatin 100,000 unit/gram topical 1 applic topical TID PRN YEAST 0 09/18/24 12/25/24 Rx powder (Nystop) INFECTION #15 mg sitagliptin phosphate 100 mg 100 mg PO QDAY 10/25/24 12/25/24 H istory tablet (Januvia) Have you fallen in the past year?: No PFSH Medical History Sepsis Post-menopausal Depression Walker as ambulation aid Bladder disease Low iron Back pain Dietary restriction History of pain when walking History of transesophageal echocardiography (CHERI) Wears glasses Anxiety Restless legs History of hiatal hernia Gastric reflux History of IBS Non-smoker History of edema History of echocardiogram Cardiology follow-up encounter Left carotid bruit Pressure ulcer of left buttock, stage 2 Pressure ulcer of right buttock, stage 2 Postoperative atrial fibrillation H/o difficulty anesthesia Stomach inflammation Carotid stenosis Hyperlipidemia Hypertension Diabetes Asthma Arthritis Surgical History Hx of vascular surgery Hx of right cataract extraction Hx of left cataract extraction History of colonoscopy History of esophagogastroduodenoscop y (EGD) History of cardiac catheterization H/O removal of cyst History of lumpectomy H/O knee surgery History of coronary artery bypass graft x 3 ( 11/26/22) (more content not included)... Normal [facility] Cardiology Visit Reporton Cardiology Visit Report [facility] [address] [place], [place] [address] OFFICE VISIT Date of Service: 11/28/24 MR#: [id number] Acct: [id number] Name: JANESSA BARON Rep #: [id number] : 1950 Provider: Dr. Leo Rubio MD Age/Sex: 74/F Location: [facility] [place] Status: Signed HPI HPI History of Present Illness Details: Janessa Baron is a 74-year-old lady with a history of coronary artery disease diagnosed in October 2022. She had undergone a Heart catheterization demonstrated severe triple-vessel disease with a very calcified LAD and circumflex and a totally occluded RCA with [id number] collaterals with disease noted in the proximal and mid LAD and proximal circumflex. Patient was recommended for surgical consult for coronary revascularization. On November 26, 2022 at [facility], she underwent bypass surgery with SMITH to the LAD, SVG to the obtuse marginal, SVG to the right posterior descending. Following that in January 2024 she underwent a left carotid endarterectomy and has been doing well since. She denies any chest pain or shortness with or paroxysmal nocturnal dyspnea pedal edema no neck arm or jaw discomfort suggest angina. She had been complaining of some palpitations and underwent a 24-hour Holter monitor which demonstrated sinus rhythm with occasional PVCs and PACs. Her Jardiance has been discontinued. Intake Vital Signs 10/12/23 13:31 10/25/24 08:12 11/28/24 13:17 Height 5 ft 3 in 5 ft 3 in 5 ft 3 in Weight: 193 lb BMI 34.2 BP 154/69 H Blood Pressure Location Lt brachial Position Sitting Respiration 16 Pulse 78 Pulse Source Monitor Intake Visit Reasons: 1 Y FU Quiller Operator Required: No Accompanied by: Significant Other Is patient in pain?: No Allergies doxycycline Allergy (Mild, Verified 11/28/24 13:27) unknown sulfamethoxazole (From Bactrim) Allergy (Mild, Verified 11/28/24 13:27) unknown trimethoprim (From Bactrim) Allergy (Mild, Verified 11/28/24 13:27) unknown amoxicillin (From Augmentin) Allergy (Verified 11/28/24 13:27) Hives cefprozil (From Cefzil) Allergy (Verified 11/28/24 13:27) Hives clavulanic acid (From Augmentin) Allergy (Verified 11/28/24 13:27) Hives dextromethorphan (From NyQuil) Allergy (Verified 11/28/24 13:27) Hives doxylamine (From NyQuil) Allergy (Verified 11/28/24 13:27) Hives erythromycin base Allergy (Verified 11/28/24 13:27) Hives gatifloxacin (From Tequin) Allergy (Verified 11/28/24 13:27) Hives lincomycin Allergy (Verified 11/28/24 13:27) Hives metoclopramide (From Reglan) Allergy (Verified 11/28/24 13:27) Other pseudoephedrine (From NyQuil) Allergy (Verified 11/28/24 13:27) Hives empagliflozin (From Jardiance) Adverse Reaction (Severe, Verified 11/28/24 13:27) UTI/sepsis morphine Adverse Reaction (Intermediate, Verified 11/28/24 13:27) tachycardia Medications ???Medication ???Instructions ???Recorded ???Confirmed ???Type montelukast 10 mg tablet 10 mg PO QHS ASTHMA 05/21/1611/28 History cetirizine 10 mg capsule (Zyrtec) 5 mg PO DAILY allergy symptoms 11/28/24 History Al hyd-Mg tr-alg ac-sod bicarb 80 1 tab PO DAILY PRN GAS 05/22/19 0 11/28/24 History mg-14.2 mg chewable tablet (Gaviscon) metformin 1,000 mg 24 hr 1,000 mg PO BID DIABETES 05/22/19 11/28/24 History tablet,extended release (gastric reten.) albuterol sulfate 90 mcg/actuation 2 puff inhalation Q6H PRN 11/28/24 History aerosol inhaler Shortness Of Breath Or Wheezing aspirin 81 mg tablet,delayed 81 mg PO DAILY HEART HEALTH 11/28/24 History release (Adult Low Dose Aspirin) tramadol 50 mg tablet 50 mg PO 4X/DAY Pain 01/04/2311/14 History glimepiride 4 mg tablet (Amaryl) 4 mg PO DAILY DIABETES 03/11/23 History rosuvastatin 10 mg tablet (Crestor) 10 mg PO QHS HLD 09/17/2311/28 History omeprazole 40 mg capsule,delayed 40 mg PO BID GERD 10/12/23 5 History release pioglitazone 45 mg tablet (Actos) 45 mg PO DAILY DIABETES 01/11/24 11/28/24 History lisinopril 20 1 tab PO DAILY htn 01/25/24 History mg-hydrochlorothiazide 12.5 mg tablet triamcinolone acetonide 0.1 % 1 applic topical QDAY PRN SKIN 11/28/24 History topical cream ipratropium 0.5 mg-albuterol 3 mg 3 ml inhalation Q20M PRN shortnes s 08/29/24 11/28/24 History (2.5 mg base)/3 mL nebulization of breath or wheezing soln nystatin 100,000 unit/gram topical 1 applic topical TID PRN YEAST 0 09/18/24 11/28/24 Rx powder (Nystop) INFECTION #15 mg sitagliptin phosphate 100 mg 100 mg PO QDAY 10/25/24 11/28/24 H istory tablet (Januvia) Have you fallen in the past year?: No [facility] Medical History Sepsis Post-menopausal (more content not included)... Normal [facility] HbA1c (Bld)on 11-25-2024 Average glucose Estimated from glycated hemoglobin (Bld) [Mass/Vol] 140 mg/dL Normal [facility] Comment on above: Order Comment: Speci men Type: BLOOD SPECIMEN Ordering Facility: [facility] Address: [address] [place] [address] Result Comment: eAG: (Estimated average glucose) is a calculated value from HgbA1c and is safety representative of the average blood glucose level in the last 2-3 month period. Performed By: #### 2 132-9, 2284-8 #### [facility] CLIA [id number] [address] [place] [address] [place] [address] [place] HbA1c (Bld) [Mass fraction] 6.5 % High 4.3-5.6 [facility] Comment on above: Order Comment: Speci men Type: BLOOD SPECIMEN Ordering Facility: [facility] Address: [address] [place] [address] Result Comment: Carlito [place] Diabetes Association guidelines indicate that patients with HgbA1c in the range 5.7-6.4% are at increased risk for development of diabetes, and intervention by lifestyle modification may be beneficial. HgbA1c greater or equal to 6.5% is considered diagnostic of diabetes. Performed By: #### 2 132-9, 2284-8 #### [facility] CLIA [id number] [address] [place] [address] OF [facility] Yadiel 11-21-2024 CNPN Telephone (ANASTACIA) ----- JANESSA BARON ([id number]) 1950 F Date Time Provider Department 11/21/24 FANNY BARRON During your visit today, we recorded the following information about you: Jodie Cardoza 11/21/2024 12:57 PM Addendum 11/05 AVS was updated on 11/07. Found notes this afternoon when checking how often QMO B12 would be given. weekly b12 x4 followed by monthly x2 - check labs 3 months OV with labs in 3 months, CBC, iron studies, b12, copper, zinc added to AVS on 11/07 and have been scheduled with patient. Jodie Cardoza 11/21/2024 12:56 PM Signed Patient called stating that she had B12 injection last week and felt nauseas and dizzy. She had another today and states she is feeling the same way. She is asking if there is something she should do or continue injections. Please advise. Fanny Barron 11/27/2024 2:41 PM Signed Returned call to patient. No answer. LVM to return call to office. Reaction to b12 injection is usual. Her B12 was very low (<150) so I would prefer to continue however since she has now received 3 doses would be OK with proceeding with just PO 1,000mcg daily. Rx sent to her pharmacy. Fanny Barron APRN.YULY Gargsavanah Patito Ramirez LPN 11/27/2024 3:00 PM Signed Left message with pts. to have pt contact office concerning B-12 injections. PATRICA Gross Pamela S, LPN 11/30/2024 8:48 AM Signed Pt. Will continue coming in for her B-12 injections as directed. Patito Mckeon LPN Allergies As of Date: 11/21/2024 Noted Allergy Reaction EMPAGLIFLOZIN 10/25/2024 16 - Unknown METOCLOPRAMIDE 01/31/2017 16 - Unknown SULFAMETHOXAZOLE-TRIMETHO PRIM 04/01/2017 16 - Unknown MORPHINE 07/24/2020 16 - Unknown AUGMENTIN (AMOXICILLIN-POT CLAVUL*04/27/2018 2 - Rash CEFZIL (CEFPROZIL) 04/27/2018 2 - Rash DAYQUIL ALLERGY 12-HR 04/27/2018 4 - Hives DEXTROMETHORPHAN 01/31/2017 4 - Hives DOXYLAMINE 01/31/2017 4 - Hives ERYTHROMYCIN 04/27/2018 2 - Rash IODINATED CONTRAST MEDIA 05/22/2019 4 - Hives IVP DYE (IODINE) 04/27/2018 16 - Unknown Comments: knot on head LINCOMYCIN 04/27/2018 2 - Rash PSEUDOEPHEDRINE 01/31/2017 4 - Hives REGLAN (METOCLOPRAMIDE HCL) 04/27/2018 5 - Intolerance CZQNYJD-IYL-RRA REDUCTASE INHIBIT*01/31/2017 16 - Unknown Comments: Other reaction(s): Other TEQUIN (GATIFLOXACIN) 04/27/2018 2 - Rash DOXYCYCLINE 11/28/2018 16 - Unknown 11 - Vomiting Date Reviewed: 11/20/2024 Reviewed by: Spring Shipley LPN - Fully Assessed Reason for Visit: Patient Question [1477] Primary Visit Diagnosis:Iron deficiency anemia, unspecified iron deficiency anemia type [D50.9] Other Visit Diagnosis:Other dietary vitamin B12 deficiency anemia [D51.3] Order(s):cyanocobalamin (VITAMIN B-12) 1,000 mcg tabTake 1 tablet by mouth once daily.Disp: 90 tabletRfl: 3 Prescriptions as of 11/30/2024 - cyanocobalamin (VITAMIN B-12) 1,000 mcg tab Take 1 tablet by mouth once daily. - triamcinolone acetonide (KENALOG) 0.1 % cream APPLY TO THE AFFECTED AREA(S) 1-2X DAILY OR WHEN RASH IS FLARED - SITagliptin phosphate (JANUVIA) 100 mg tablet Take 1 tablet by mouth once daily. - hydrOXYzine HCl (ATARAX) 25 mg tablet Take 1 tablet by mouth every 12 hours as needed for anxiety. - predniSONE (DELTASONE) 20 mg tablet Take 3 tablets by mouth once daily. X3d, then 2 po every day x 3d then 1 po every day x 3d, then 1/2 po every day x 4d - benzonatate (TESSALON PERLE) 100 mg capsule Take 1 capsule by mouth three times a day as needed. - glimepiride (AMARYL) 4 mg tablet Take 1 tablet by mouth daily with breakfast. - HYDROcodone-acetaminophen (NORCO) 5-325 mg per tablet Take 1 tablet by mouth every 8 hours as needed for pain. - benzocaine/benzethon Cl (DERMOPLAST ANTIBACTERIAL TOPICAL) Apply to affected area as needed. - lidocaine (SALONPAS) 4 % patch Apply 1 application as directed once daily. - albuterol (PROVENTIL) 2.5 mg /3 mL (0.083 %) nebulizer solution INHALE WITH 1 VIAL IN NEBULIZER EVERY SIX HOURS NEEDED - rosuvastatin (CRESTOR) 10 mg tablet Take 1 tablet by mouth daily at bedtime. - metFORMIN (GLUCOPHAGE) 500 mg tablet Take 2 tablets by mouth two times a day with meals. - blood sugar diagnostic ([employer] ULTRA TEST) test strip Monitor blood sugar daily and as needed. - montelukast (SINGULAIR) 10 mg tablet Take 1 tablet by mouth daily at bedtime. - omeprazole (PRILOSEC) 40 mg capsule Take 1 capsule by mouth two times a day. - pioglitazone (ACTOS) 45 mg tablet Take 1 tablet by mouth once daily. - lisinopril-hydroCHLOROthi azide (ZESTORETIC) 20-12.5 mg per tablet Take 1 tablet by mouth once daily. - ketoconazole (NIZORAL) 2 % cream Apply to affected area once daily for 10 days. - NYSTOP powder APPLY TO THE AFFECTED AREA(S) THREE TIMES DAILY - sucralfate (CARAFATE) 1 gram tablet Take 1 g by mouth three times a day. 1/2 hour before (more content not included)... Normal [facility] CNOVon 11-20-2024 CNOV Office Visit (FAMMAS ) ----- JANESSA BARON ([id number]) 1950 F Date Time Provider Department 11/20/24 4:10 PM KALI BACONNMJames During your visit today, we recorded the following information about you: Temperature Pulse Respiration Blood pressure 97.6 degrees 80/minute 18/minute 108/68 Weight Height 86.6 kg 1.6 m Spring Shipley LPN 11/20/2024 4:31 PM Signed Patient is in office with complaint of increased right arm pain. Patient states that arm has been hurting for a few weeks. Denies injury. No refills needed Spring Shipley LPN November 20, 2024 4:10 PM Kali Bacon MD 11/20/2024 4:31 PM Signed Pavel Maradiaga is a 74-year-old female with a history of DM, presenting for right upper arm pain . Right Upper Arm Pain: - Sharp pain in the right upper arm, between the elbow and shoulder, x3 weeks. - Onset after moving the arm in a certain way; thought it was a muscle pull. - Pain is persistent; uses lidocaine patches for relief. - Takes acetaminophen and tramadol daily for back pain, unsure if it helps the arm pain. - Denies known trauma. Low B12 Levels: - Recent lab work showed low B12 levels, described as almost undetectable. - Takes omeprazole BID. - Receiving B12 injections; next injection scheduled for tomorrow. - Recent hospitalization with abnormal lab results. - Iron levels improved after 5 infusions. - Reports feeling better overall, with some weight loss. - Blood sugar levels have improved; A1c test scheduled for the . 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 Review of Systems GENERAL: Positive for mild weight loss, denies malaise or fevers. HEENT: Negative for frequent or significant headaches, no changes in vision or hearing, no nose bleeds or other nasal problems NECK: Negative for lumps, goiter, pain and significant neck swelling RESPIRATORY: Negative for cough, dyspnea or shortness of breath CARDIOVASCULAR: Negative for chest pain, leg swelling, CHF or palpitations GI: No nausea, vomiting, diarrhea, heartburn, abdominal pain, blood in stool or black stool GENITOURINARY: No history of dysuria, frequency or incontinence MUSCULOSKELETAL: Positive for upper arm muscle pain and back pain; negative for joint pain or swelling SKIN: Negative for lesions, rash and itching PSYCH: Negative for anxiety or depression HEMATOLOGY/LYMPHOLOGY: No bleeding concerns NEURO: No history of headaches, syncope, paralysis, seizures or tremors ENDOCRINE: No history of polydipsia, increased thirst or other endocrine symptoms PAST SURGICAL HISTORY Procedure Laterality Date BREAST BIOPSY Bilateral benign BREAST SURGERY HX CHOLECYSTECTOMY COLONOSCOPY 05/2017 COLONOSCOPY SCREENING 2019 EGD 04/2017 EGD DIAGNOSTIC 01/2023 F SALPINGO-OOPHORECTOMY Left IR RT HEART CATH 11/10/2022 PAST SURGICAL HISTORY OF left TM repair PAST SURGICAL HISTORY OF Left 12/1991 Repair of hole in left eardrum PAST SURGICAL HISTORY OF 06/03/1998 Scalp - removal of sebaceaous cyst PAST SURGICAL HISTORY OF 11/26/2022 Triple Bypass PAST SURGICAL HISTORY OF 01/25/2024 Left carotid artery stint REMV CATARACT EXTRACAP,INSERT LENS Left REMV CATARACT EXTRACAP,INSERT LENS Right TUBAL LIGATION PAST MEDICAL HISTORY Diagnosis Date Asthma (HCC) Carotid stenosis Delayed emergence from general anesthesia deep anesthesia 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) 05/22/2022 Diabetes mellitus, type 2 (HCC) Hyperlipidemia Hypertension Sliding hiatal hernia FAMILY HISTORY Problem Relation Age of Onset Heart Mother Stroke Mother Emphysema Father Heart Father Heart Attack Father Colon Cancer Sister 67 Diabetes Sister Diabetes Sister Heart Sister Thyroid Cancer Brother Social History Tobacco Use Smoking status: Never Smokeless tobacco: Never Vaping Use Vaping status: Never Used Substance Use Topics Alcohol use: Not Currently Drug use: Not Currently ALLERGIES Allergen Reactions Empagliflozin Unknown Metoclopramide Unknown Sulfamethoxazole-Tr* Unknown Morphine Unknown Augmentin [Amoxicil* Rash Cefzil [Cefprozil] Rash Dayquil Allergy 12-* Hives Dextromethorphan Hives Doxylamine Hives Erythromycin Rash Iodinated Contrast * Hives Ivp Dye [Iodine] Unknown knot on head Lincomycin Rash Pseudoephedrine Hives Reglan [Metoclopram* Intolerance Wxznbhb-Kzd-Lbu Red* Unknown Other reaction(s): Other Tequin [Gatifloxaci* Rash Doxycycline Unknown, Vomiting MEDICATIONS: triamcinolone acetonide (KENALOG) 0.1 % cream APPLY TO THE AFFECTED AREA(S) 1-2X DAILY OR WHEN RASH IS FLARED SITagliptin phosphate (JANUVIA) 100 mg tablet Take 1 tablet by mouth once daily. hydrOXYzine HCl (ATARAX) 25 mg tablet Take 1 tablet by mouth every 12 hours as needed for anxiety. predniSONE (DELTASONE) 20 mg tablet Take 3 tablets by mouth once (more content not included)... [facility] XR HUMERUS 2V AP/LAT RTon XR HUMERUS 2V AP/LAT RT * * *Final Report* * * DATE OF EXAM: Nov 20 2024 4:40PM [id number] - XR HUMERUS 2V AP/LAT RT / PROCEDURE REASON: Right arm pain * * * * Physician Interpretation * * * * XR HUMERUS 2V AP/LAT RT Ordering Physician: KALI BACON 11/20/2024 4:40 PM RIGHT HUMERUS Clinical Statement: Pain FINDINGS: 2 views of the right humerus were obtained. There were no prior studies available for comparison. The humerus is intact. There are no acute fractures. IMPRESSION: No acute abnormalities. Construction Executive: LOUIS Transcribe Date/Time: Nov 20 2024 4:51P Dictated by : HAMLET ARELLANO MD This examination was interpreted and the report reviewed and electronically signed by: HAMLET ARELLANO MD on Nov 20 2024 4:52PM EST [id number] [facility] XR Humerus - right AP and La teralon 11-20-2024 IMPRESSION: No acute abnormalities. Construction Executive: PSCB Transcribe Date/Time: Nov 20 2024 4:51P Dictated by : HAMLET ARELLANO MD This examination was interpreted and the report reviewed and electronically signed by: HAMLET ARELLANO MD on Nov 20 2024 4:52PM EST [facility] * * *Final Report* * * DATE OF EXAM: Nov 20 2024 4:40PM [id number] - XR HUMERUS 2V AP/LAT RT / PROCEDURE REASON: Right arm pain * * * * Physician Interpretation * * * * XR HUMERUS 2V AP/LAT RT Ordering Physician: KALI BACON 11/20/2024 4:40 PM RIGHT HUMERUS Clinical Statement: Pain FINDINGS: 2 views of the right humerus were obtained. There were no prior studies available for comparison. The humerus is intact. There are no acute fractures. [facility] Provider, Dee Augustin - 11/20/2024 * * *Final Report* * * DATE OF EXAM: Nov 20 2024 4:40PM [id number] - XR HUMERUS 2V AP/LAT RT / PROCEDURE REASON: Right arm pain * * * * Physician Interpretation * * * * XR HUMERUS 2V AP/LAT RT Ordering Physician: KALI BACON 11/20/2024 4:40 PM RIGHT HUMERUS Clinical Statement: Pain FINDINGS: 2 views of the right humerus were obtained. There were no prior studies available for comparison. The humerus is intact. There are no acute fractures. IMPRESSION IMPRESSION: No acute abnormalities. Construction Executive: PSCB Transcribe Date/Time: Nov 20 2024 4:51P Dictated by : HAMLET ARELLANO MD This examination was interpreted and the report reviewed and electronically signed by: HAMLET ARELLANO MD on Nov 20 2024 4:52PM [facility] Radiology Study observation (narrative) [facility] XR Humerus - right AP and La teralOrdered By: Ccf Provider on 11-20-2024 [facility] ANES POSTPROC EVALon 025 ANES POSTPROC EVAL HNO ID: [id number] Author: MONICA BEY MD Service: Anesthesiology Author Type: Anesthesiologist Type: Anesthesia Postprocedure Evaluation Filed: 11/15/2024 14:15 Note Text: POST ANESTHESIA EVALUATION NOTE : 1950 Procedure Summary Date: 11/15/24 Room / Location: [facility] Endoscopy Anesthesia Start: 1256 Anesthesia Stop: 3 Procedures: EGD DIAGNOSTIC COLONOSCOPY DIAGNOSTIC Diagnosis: Iron deficiency anemia, unspecified iron deficiency anemia type Family history of colon cancer (Iron deficiency anemia) (Iron deficiency anemia) Scheduled Providers: Marce Larkin MD; Abraham Sampson APRN.INSPECTOR FINAL [employer]SEMBL[employer]LECT[employer]ICAL; Monica Bey MD Responsible Provider: Monica Bey MD Anesthesia Type: MAC ASA Status: 3 Anesthesia Type: MAC Last Vitals Vitals Value Taken Time BP 122/61 11/15/24 1410 Temp 36.6 ?C (97.9 ?F) 11/15/24 1410 HR SpO2 80 11/15/24 1410 Resp 20 11/15/24 1410 SpO2 98 % 11/15/24 1410 Post Anesthesia Patient Status Patient Evaluation: PACU. PACU/ICU Patient Condition: stable. Anticipated Disposition: phase 2 then home. Neurological Status: aware and responsive. Pulmonary Status: breathing comfortably on room air Airway Control: returned to baseline unsupported. Cardiovascular Status: stable. Pain Management: clinically adequate - multimodal analgesia pain management approach Postoperative Hydration: acceptable. Intraoperative Events: no significant anesthesia events Post Operative Nausea/Vomiting Status: no significant post operative nausea or vomiting Recommendation: continue current plan of care. Anesthesia Observations No Documentation SIGNATURE: Monica Bey MD PATIENT NAME: Janessa Baron DATE: November 15, 2024 TIME: 2:15 PM CSN: [id number] Normal [facility] ANES PRE-OPon 11-15-2024 ANES PRE-OP HNO ID: [id number] Author: MONICA BEY MD Service: Anesthesiology Author Type: Anesthesiologist Type: Anesthesia Preprocedure Evaluation Filed: 11/15/2024 12:20 Note Text: ANESTHESIOLOGY DAY OF SURGERY NOTE : 1950 Procedure Information Date/Time: 11/15/24 1330 Scheduled providers: Marce Larkin MD; Radha Banks MD; Abraham Sampson APRN.INSPECTOR [employer] Procedures: EGD DIAGNOSTIC COLONOSCOPY DIAGNOSTIC Location: [facility] Endoscopy Estimated body mass index is 32.77 kg/m? as calculated from the following: Height as of this encounter: 160 cm (5' 3). Weight as of this encounter: 83.9 kg (185 lb). Most recent hematocrit and potassium results: Hematocrit 40.0 11/04/2024 Hematocrit (POCT) 44 09/25/2024 Potassium 3.6 11/04/2024 Potassium (POCT) 3.5 09/25/2024 Relevant Problems CARDIO (+) Aortic atherosclerosis (+) Arteriosclerosis of coronary artery (+) Essential (primary) hypertension (+) Multiple premature ventricular complexes (+) Paroxysmal atrial fibrillation (HCC) (+) Stenosis of carotid artery ENDO (+) Diabetes 1.5, managed as type 2 (HCC) (+) Type 2 diabetes mellitus without complication, without long-term current use of insulin (HCC) -RENAL (+) REJI (acute kidney injury) (+) Pyelonephritis NEURO-PSYCH (+) History of motion sickness PULMONARY (+) Asthma (HCC) I - PHYSICAL EVALUATION AIRWAY Patient intubated: No. Tracheostomy tube not present Mallampati: II. TM distance: <3 FB. Neck ROM: full ROM without neurological symptoms. Mouth opening: adequate. Short neck: no. Thick neck: no DENTAL Dental findings: teeth intact. Additional exam findings: yes. CARDIOVASCULAR Rhythm: regular Rate: normal PULMONARY Breath sounds clear to auscultation. II - ANESTHESIA PLAN ASA Score: 3 Anesthetic Plan: MAC The patient is not a current smoker. NPO Status: adequate Beta Ghulam Monitoring Plan Monitoring plan: standard ASA. Post Procedure Analgesic Plan Postoperative analgesic plan: multimodal analgesia. Informed Consent Anesthetic risks, benefits, alternatives, personnel and consent discussed: yes. Patient / Responsible Alliance Party agrees to proceed: yes Patient / Surrogate agrees to blood products: blood products not planned DNR status not reviewed with patient and/or family prior to surgery. Significant changes in the patient condition since the History and Physical, not otherwise documented in primary service progress note: no. Potential Anesthesia issues that may suggest increased risk of complications or contraindication to planned procedure: none. Vitals Value Taken Time BP 148/68 11/15/24 1109 Pulse 81 11/15/24 1109 Resp 17 11/15/24 1109 Temp 36.2 ?C (97.2 ?F) 11/15/24 1109 SpO2 98 % 11/15/24 1109 Outpatient Medications as of 11/15/2024 Medication Sig SITagliptin phosphate (JANUVIA) 100 mg tablet Take 1 tablet by mouth once daily. glimepiride (AMARYL) 4 mg tablet Take 1 tablet by mouth daily with breakfast. HYDROcodone-acetaminophen (NORCO) 5-325 mg per tablet Take 1 tablet by mouth every 8 hours as needed for pain. lidocaine (SALONPAS) 4 % patch Apply 1 application as directed once daily. rosuvastatin (CRESTOR) 10 mg tablet Take 1 tablet by mouth daily at bedtime. metFORMIN (GLUCOPHAGE) 500 mg tablet Take 2 tablets by mouth two times a day with meals. omeprazole (PRILOSEC) 40 mg capsule Take 1 capsule by mouth two times a day. pioglitazone (ACTOS) 45 mg tablet Take 1 tablet by mouth once daily. lisinopril-hydroCHLOROthi azide (ZESTORETIC) 20-12.5 mg per tablet Take 1 tablet by mouth once daily. aspirin, enteric coated (ASPIRIN, ENTERIC COATED) 81 mg EC tablet Take 81 mg by mouth once daily. traMADol (ULTRAM) 50 mg tablet Take 50 mg by mouth every 6 hours as needed for pain. diclofenac (VOLTAREN) 1 % topical gel Apply to affected area four times daily. hydrOXYzine HCl (ATARAX) 25 mg tablet Take 1 tablet by mouth every 12 hours as needed for anxiety. predniSONE (DELTASONE) 20 mg tablet Take 3 tablets by mouth once daily. X3d, then 2 po every day x 3d then 1 po every day x 3d, then 1/2 po every day x 4d (Patient not taking: Reported on 11/14/2024) benzonatate (TESSALON PERLE) 100 mg capsule Take 1 capsule by mouth three times a day as needed. benzocaine/benzethon Cl (DERMOPLAST ANTIBACTERIAL TOPICAL) Apply to affected area as needed. albuterol (PROVENTIL) 2.5 mg /3 mL (0.083 %) nebulizer solution INHALE WITH 1 VIAL IN NEBULIZER EVERY SIX HOURS NEEDED blood sugar diagnostic (ArterisTOUCH ULTRA TEST) test strip Monitor blood sugar daily and as needed. montelukast (SINGULAIR) 10 mg tablet Take 1 tablet by mouth daily at bedtime. ketoconazole (NIZORAL) 2 % cream Apply to affected area once daily for 10 days. NYSTOP powder APPLY TO THE AFFECTED AREA(S) THREE TIMES DAILY sucralfate (CARAFATE) 1 gram tablet Take 1 g by mouth three times a day. 1/2 hour before meals budesonide (PUL (more content not included)... Normal [facility] Colonoscopyon 11-15-2024 Colonoscopy [facility] Gastrointestinal Endoscopy Patient Name: Janessa Baron Procedure Date: 11/15/2024 12:49 PM Date of : 1950 Admit Type: Outpatient Age: 74 Room: [facility] Gender: Female Note Status: Finalized Attending MD: Marce Larkin MD, [id number] Procedure: Colonoscopy Indications: Iron deficiency anemia Providers: Marce Larkin MD Patient Profile: Refer to note in patient chart for documentation of history and physical. Last Colonoscopy: 3 years ago. Referring Physician: Halie Jin (Referring MD) Medicines: See the Anesthesia note for documentation of the administered medications Complications: No immediate complications. Requesting Provider: Procedure: Pre-Anesthesia Assessment: - Monitored anesthesia care under the supervision of a INSPECTOR [employer] was determined to be medically necessary for this procedure based on review of the patient's medical history, medications, and prior anesthesia history. After I obtained informed consent, the scope was passed under direct vision. Throughout the procedure, the patient's blood pressure, pulse, and oxygen saturations were monitored continuously. The Colonoscope was introduced through the anus and advanced to the cecum, identified by the appendiceal orifice, IC valve and transillumination. The colonoscopy was performed without difficulty. The patient tolerated the procedure well. The quality of the bowel preparation was inadequate. The appendiceal orifice and the rectum were photographed. Scope Withdrawal Time: 0 hours 6 minutes 12 seconds Moderate Sedation: MAC anesthesia was administered by the anesthesia team. Total Procedure Duration: 0 hours 14 minutes 19 seconds Findings: The perianal and digital rectal examinations were normal. Non-bleeding internal hemorrhoids were found. Impression: - Preparation of the colon was inadequate. - Non-bleeding internal hemorrhoids. - No specimens collected. Recommendation: - Discharge patient to home (ambulatory). - Resume previous diet. - Continue present medications. - Repeat colonoscopy in 3 - 5 years for surveillance - suboptimal colon cleanse and family history of colon cancer. - Return to referring provider at the next available appointment. - Patient has a contact number available for emergencies. The signs and symptoms of potential delayed complications were discussed with the patient. Return to normal activities tomorrow. Written discharge instructions were provided to the patient. Procedure Code(s): --- Professional --- 94304, Colonoscopy, flexible; diagnostic, including collection of specimen(s) by brushing or washing, when performed (separate procedure) Diagnosis Code(s): --- Professional --- D50.9, Iron deficiency anemia, unspecified K64.8, Other hemorrhoids CPT copyright 2020 [employer]. All rights reserved. The codes documented in this report are preliminary and upon in house cra review may be revised to meet current compliance requirements. Attending Participation: I personally performed the entire procedure. Scope In: 1:14:00 PM Scope Out: 1:28:19 PM MD Marce Fischer MD 11/15/2024 1:37:03 PM This report has been signed electronically by Marce Larkin MD Number of Addenda: 0 Note Initiated On: 11/15/2024 12:49 PM Estimated Blood Loss: Estimated blood loss: none. Normal [facility] EGD Study observation Heather nieto 11-15-2024 [facility] Gastrointestinal Endoscopy Patient Name: Janessa Baron Procedure Date: 11/15/2024 12:49 PM Date of : 1950 Admit Type: Outpatient Age: 74 Room: [facility] Gender: Female Note Status: Finalized Attending MD: Marce Larkin MD, [id number] Procedure: Upper GI endoscopy Indications: Iron deficiency anemia Providers: Marce Larkin MD Patient Profile: Refer to note in patient chart for documentation of history and physical. Referring Physician: Halie Jin (Referring MD) Medicines: See the Anesthesia note for documentation of the administered medications Complications: No immediate complications. Requesting Provider: Procedure: Pre-Anesthesia Assessment: - Monitored anesthesia care under the supervision of a INSPECTOR [employer] was determined to be medically necessary for this procedure based on review of the patient's medical history, medications, and prior anesthesia history. After obtaining informed consent, the endoscope was passed under direct vision. Throughout the procedure, the patient's blood pressure, pulse, and oxygen saturations were monitored continuously. The Endoscope was introduced through the mouth, and advanced to the second part of duodenum. The upper GI endoscopy was accomplished without difficulty. The patient tolerated the procedure well. Moderate Sedation: MAC anesthesia was administered by the anesthesia team. Total Procedure Duration: 0 hours 5 minutes 19 seconds Findings: The first portion of the duodenum and second portion of the duodenum were normal. Localized mildly radial streaking erythematous mucosa without bleeding was found in the gastric antrum. Biopsies were taken with a cold forceps for Helicobacter pylori testing. Verification of patient identification for the specimen was done by the nurse. Estimated blood loss was minimal. retained bile noted in stomach The examined esophagus was normal. Impression: - Normal first portion of the duodenum and second portion of the duodenum. - Erythematous mucosa in the antrum. Biopsied for H pylori, retained bile noted in stomach. - Normal esophagus. Recommendation: - Discharge patient to home (ambulatory). - Resume previous diet. - Continue present medications. - - Follow up with Yajaira Jin NP, may be via televisit for discussion of pathology results Procedure Code(s): --- Professional --- 08506, Esophagogastroduodenoscop y, flexible, transoral; with biopsy, single or multiple Diagnosis Code(s): --- Professional --- D50.9, Iron deficiency anemia, unspecified K31.89, Other diseases of stomach and duodenum CPT copyright 2020 [employer]. All rights reserved. The codes documented in this report are preliminary and upon in house cra review may be revised to meet current compliance requirements. Attending Participation: I personally performed the entire procedure. Scope In: 1:01:27 PM Scope Out: 1:06:46 PM MD Marce Fischer MD 11/15/2024 1:11:02 PM This report has been signed electronically by Marce Larkin MD Number of Addenda: 0 Note Initiated On: 11/15/2024 12:49 PM Estimated Blood Loss: Estimated blood loss was minimal. PROVATION [facility] Radiology Study observation (narrative) [facility] Flexible sigmoidoscopy study on 11-15-2024 [facility] Gastrointestinal Endoscopy Patient Name: Janessa Baron Procedure Date: 11/15/2024 12:49 PM Date of : 1950 Admit Type: Outpatient Age: 74 Room: [facility] Gender: Female Note Status: Finalized Attending MD: Marce Larkin MD, [id number] Procedure: Colonoscopy Indications: Iron deficiency anemia Providers: Marce Larkin MD Patient Profile: Refer to note in patient chart for documentation of history and physical. Last Colonoscopy: 3 years ago. Referring Physician: Halie Jin (Referring MD) Medicines: See the Anesthesia note for documentation of the administered medications Complications: No immediate complications. Requesting Provider: Procedure: Pre-Anesthesia Assessment: - Monitored anesthesia care under the supervision of a INSPECTOR [employer] was determined to be medically necessary for this procedure based on review of the patient's medical history, medications, and prior anesthesia history. After I obtained informed consent, the scope was passed under direct vision. Throughout the procedure, the patient's blood pressure, pulse, and oxygen saturations were monitored continuously. The Colonoscope was introduced through the anus and advanced to the cecum, identified by the appendiceal orifice, IC valve and transillumination. The colonoscopy was performed without difficulty. The patient tolerated the procedure well. The quality of the bowel preparation was inadequate. The appendiceal orifice and the rectum were photographed. Scope Withdrawal Time: 0 hours 6 minutes 12 seconds Moderate Sedation: MAC anesthesia was administered by the anesthesia team. Total Procedure Duration: 0 hours 14 minutes 19 seconds Findings: The perianal and digital rectal examinations were normal. Non-bleeding internal hemorrhoids were found. Impression: - Preparation of the colon was inadequate. - Non-bleeding internal hemorrhoids. - No specimens collected. Recommendation: - Discharge patient to home (ambulatory). - Resume previous diet. - Continue present medications. - Repeat colonoscopy in 3 - 5 years for surveillance - suboptimal colon cleanse and family history of colon cancer. - Return to referring provider at the next available appointment. - Patient has a contact number available for emergencies. The signs and symptoms of potential delayed complications were discussed with the patient. Return to normal activities tomorrow. Written discharge instructions were provided to the patient. Procedure Code(s): --- Professional --- 30349, Colonoscopy, flexible; diagnostic, including collection of specimen(s) by brushing or washing, when performed (separate procedure) Diagnosis Code(s): --- Professional --- D50.9, Iron deficiency anemia, unspecified K64.8, Other hemorrhoids CPT copyright 2020 [employer]. All rights reserved. The codes documented in this report are preliminary and upon in house cra review may be revised to meet current compliance requirements. Attending Participation: I personally performed the entire procedure. Scope In: 1:14:00 PM Scope Out: 1:28:19 PM MD Marce Fischer MD 11/15/2024 1:37:03 PM This report has been signed electronically by Marce Larkin MD Number of Addenda: 0 Note Initiated On: 11/15/2024 12:49 PM Estimated Blood Loss: Estimated blood loss: none. PROVATION [facility] Radiology Study observation (narrative) [facility] GLUCOSE, BLOOD (POC)on 11-15 Glucose [Mass/Vol] 133 mg/dL Abnormal 74 - 99 mg/dL [facility] Comment on above: Location:[address], [address] The Accu-Chek Inform II glucose meter has not been approved for testing on patients receiving intensive medical intervention or therapy and results from this point of care glucose test should not be used for patient management decisions in these cases. Inaccurate results may also occur from other interfering factors, such as N-acetylcysteine (blood concentrations of greater than 5mg/dL), galactose, extremes of hematocrit (<10 or >65), or high doses of ascorbic acid (vitamin C) greater than 3mg/dL. Consider alternate testing mechanisms (e.g. core lab, blood gas instrument) in the above situations. Interpretation and review of laboratory results Abnormal [facility] HISTORY PHYSICALon HISTORY PHYSICAL HNO ID: [id number] Author: MARCE LARKIN MD Service: General Surgery Author Type: Physician Type: H&P Filed: 11/15/2024 11:34 Note Text: HISTORY AND PHYSICAL Janessa Baron : 1950 REFERRING PHYSICIAN: Fanny Barron [address] [facility] [id number] CHIEF COMPLAINT: Patient presents with: colon consult HPI: Janessa is a 74 year old female referred for endoscopy. Janessa notes chronic MY. Last HANDH 08/21/24 9.5 AND 31.9. Plts 437. She notes 5 surgeries in the 1.5 year including: triple bypass 11/26/2022, torn meniscus, L carotid surg 01/25/24, cholecystectomy. Was due to have L4/L5 laminectomy but was postponed d/t elevated A1C. Janessa denies abdominal pain.. Janessa denies diarrhea. Janessa notes recent history of constipation. -while getting iron infusions. Completed all 5 infusions AND not on oral iron -was using fiber for relief Janessa denies a change in bowel habits. Janessa denies melena. Janessa denies bright red blood per rectum. Janessa denies hemorrhoids. Janessa notes family history of colon issues. Colon cancer in sister Janessa notes occasional heartburn. Janessa denies dysphagia. Janessa denies a history of ulcers/ peptic ulcer disease. Medical history is significant for HTN, CAD, PAF, asthma, and T2DM. Follows with [facility]. Last OV 09/06/24. Hx of CABG x 3 in 2022. She also had a left carotid artery stent placed summer. Post-op A.Fib- wore a holter monitor which was turned in on 09/11/24 with no evidence of A Fib. Janessa has undergone prior endoscopy. Last colonoscopy was 04/[address] Edgar at [facility]. Sedation:Fentanyl 100 micrograms IV, Midazolam 5 mg IV Impression: - The entire examined colon is normal. Biopsied. Last EGD was at [place] with Dr. Arredondo 01/2023. Sedation: MAC Impression: - Multiple plaques in the middle third of the esophagus and in the lower third of the esophagus. Brushings performed. - Bilious gastric fluid. - Gastritis. Biopsied. - Normal examined duodenum. Biopsied. FINAL DIAGNOSIS A - ESOPHAGEAL BRUSH: Negative for malignant cells. 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 CURRENT MEDICATIONS Current Outpatient Medications Medication Sig HYDROcodone-acetaminophen (NORCO) 5-325 mg per tablet Take 1 tablet by mouth every 8 hours as needed for pain. benzocaine/benzethon Cl (DERMOPLAST ANTIBACTERIAL TOPICAL) Apply to affected area as needed. lidocaine (SALONPAS) 4 % patch Apply 1 application as directed once daily. empagliflozin (JARDIANCE) 10 mg tablet Take 1 tablet by mouth daily with breakfast. albuterol (PROVENTIL) 2.5 mg /3 mL (0.083 %) nebulizer solution INHALE WITH 1 VIAL IN NEBULIZER EVERY SIX HOURS NEEDED rosuvastatin (CRESTOR) 10 mg tablet Take 1 tablet by mouth daily at bedtime. metFORMIN (GLUCOPHAGE) 500 mg tablet Take 2 tablets by mouth two times a day with meals. blood sugar diagnostic (ONETOUCH ULTRA TEST) test strip Monitor blood sugar daily and as needed. glimepiride (AMARYL) 4 mg tablet Take 1 tablet by mouth daily with breakfast. montelukast (SINGULAIR) 10 mg tablet Take 1 tablet by mouth daily at bedtime. omeprazole (PRILOSEC) 40 mg capsule Take 1 capsule by mouth two times a day. pioglitazone (ACTOS) 45 mg tablet Take 1 tablet by mouth once daily. lisinopril-hydroCHLOROthi azide (ZESTORETIC) 20-12.5 mg per tablet Take 1 tablet by mouth once daily. ketoconazole (NIZORAL) 2 % cream Apply to affected area once daily for 10 days. NYSTOP powder APPLY TO THE AFFECTED AREA(S) THREE TIMES DAILY sucralfate (CARAFATE) 1 gram tablet Take 1 g by mouth three times a day. 1/2 hour before meals budesonide (PULMICORT) 0.5 mg/2 mL nebulizer solution mix 2 ampules with saline and apply twice daily gel base no.41, bulk, (HYDROGEL) gel 1 Dose once daily. lancets (ONE TOUCH DELICA) 33 gauge 1 Each once daily. blood sugar diagnostic (ONETOUCH ULTRA TEST) test strip 1 Strip before meals and at bedtime. Use as instructed aspirin, enteric coated (ASPIRIN, ENTERIC COATED) 81 mg EC tablet Take 81 mg by mouth once daily. lancets (TRUEPLUS LANCETS) 33 gauge Monitor blood sugar daily and as needed. traMADol (ULTRAM) 50 mg tablet Take 50 mg by mouth every 6 hours as needed for pain. diclofenac (VOLTAREN) 1 % topical gel Apply to affected area four times daily. mag carb/aluminum hydrox/algin (GAVISCON ORAL) Take 1 tablet by mouth as needed. cetirizine HCl (ZYRTEC ORAL) Take 1 tablet by mouth once daily. ubidecarenone (CO Q-10 ORAL) Take by mouth. peg 3350-Electrolytes (GOLYTELY) 236-22.74-6.74 -5.86 gram suspension Take 4,000 mL by mouth one time only for 1 dose. Refer to printed prep instructions from your provider. No current facility-administered medications for this visit. ALLERGIES: Metoclopramide, Sulfamethoxazole-Trimetho prim, Morphine, Acetaminophen, Augmentin [Amoxicillin-Pot Clavulanate], Cefzil [Cefprozil], Dayquil Allergy 12-Hr, Dextromethorphan, Doxylamine, Erythro (more content not included)... Normal [facility] Pathology biopsy report Lorenzo (Tiss)on 11-15-2024 AP DISCLAIMER [facility] Comment on above: Order Comment: Speci men Type: TISSUE SPECIMEN Ordering Facility: [facility] Address: [address] [place] [address] Result Comment: Zina taveras Developed Test (LDT) Disclaimer: Performance characteristics of immunohistochemical, immunofluorescent, and chromogenic in-situ hybridization tests have been determined by the performing laboratory within [facility]'s [facility] Pathology and Laboratory Medicine Department ([facility], [place], [facility], [facility], [facility], [facility], [facility], or [facility]) in a manner consistent with CLIA requirements. One or more of these tests may not have been cleared or approved by the FDA. [facility] is regulated under CLIA as qualified to perform high-complexity testing. These tests are used for clinical purposes. These should not be regarded as investigational or for research. Positive and negative controls stain appropriately. Performed By: #### 6 6121-5 #### [facility] CLIA [id number] [address] [place] [address] OF [facility] CLIA [id number] [address] [place] [address] STATES OF [place] CASE REPORT Normal [facility] Comment on above: Order Comment: Speci men Type: TISSUE SPECIMEN Ordering Facility: [facility] Address: [address] [place] [address] Result Comment: Surg ica Pathology Report Case: [id number] Authorizing Provider: Marce Larkin MD Collected: 11/15/2024 01:05 PM Ordering Location: [facility] Endoscopy Received: 11/15/2024 03:05 PM Pathologist: Barrington Ramírez MD Specimen: Stomach, Antrum, Biopsy Performed By: #### 6 6121-5 #### [facility] CLIA [id number] [address] [facility] CLIA [id number] [address] [place] [address] FINAL DIAGNOSIS [facility] Comment on above: Order Comment: Speci men Type: TISSUE SPECIMEN Ordering Facility: [facility] Address: [address] [place] [address] Result Comment: A. James eligio, antrum, biopsy: - Gastric oxyntic type mucosa with no pathologic diagnostic abnormality. at 1114 EDT Performed By: #### 6 6121-5 #### [facility] CLIA [id number] CHAVEZ [place] [address] LAB CLIA [id number] [address] [place] [address] OF [place] FINAL PERFORMING LAB Normal [facility] Comment on above: Order Comment: Speci men Type: TISSUE SPECIMEN Ordering Facility: [facility] Address: [address] [place] [address] Result Comment: Diag nostic interpretation performed at: [facility], [place] [address] CLIA# [id number] Staff Scientist: Barrington Ramírez MD Performed By: #### 6 6121-5 #### [facility] CLIA [id number] [place] [address] OF [place] [facility] CLIA [id number] [address] [place] [address] OF [place] GROSS DESCRIPTION [facility] Comment on above: Order Comment: Speci men Type: TISSUE SPECIMEN Ordering Facility: [facility] Address: [address] [place] [address] Result Comment: A. S tomach, Antrum, Biopsy Received in formalin is one piece of lewis-pink, soft tissue measuring 0.2 x 0.2 x 0.2 cm. Totally submitted in one cassette. [facility] November 15, 2024 7:11 PM Gross examination performed at [facility], [address] [place] [address] Performed By: #### 6 6121-5 #### [facility] CLIA [id number] [address] [place] [address] [place] [facility] CLIA [id number] [address] [place] [address] OF [place] Upper GI endoscopyon 025 Upper GI endoscopy [facility] Gastrointestinal Endoscopy Patient Name: Janessa Baron Procedure Date: 11/15/2024 12:49 PM Date of : 1950 Admit Type: Outpatient Age: 74 Room: [facility] Gender: Female Note Status: Finalized Attending MD: Marce Larkin MD, [id number] Procedure: Upper GI endoscopy Indications: Iron deficiency anemia Providers: Marce Larkin MD Patient Profile: Refer to note in patient chart for documentation of history and physical. Referring Physician: Halie Jin (Referring MD) Medicines: See the Anesthesia note for documentation of the administered medications Complications: No immediate complications. Requesting Provider: Procedure: Pre-Anesthesia Assessment: - Monitored anesthesia care under the supervision of a INSPECTOR [employer] was determined to be medically necessary for this procedure based on review of the patient's medical history, medications, and prior anesthesia history. After obtaining informed consent, the endoscope was passed under direct vision. Throughout the procedure, the patient's blood pressure, pulse, and oxygen saturations were monitored continuously. The Endoscope was introduced through the mouth, and advanced to the second part of duodenum. The upper GI endoscopy was accomplished without difficulty. The patient tolerated the procedure well. Moderate Sedation: MAC anesthesia was administered by the anesthesia team. Total Procedure Duration: 0 hours 5 minutes 19 seconds Findings: The first portion of the duodenum and second portion of the duodenum were normal. Localized mildly radial streaking erythematous mucosa without bleeding was found in the gastric antrum. Biopsies were taken with a cold forceps for Helicobacter pylori testing. Verification of patient identification for the specimen was done by the nurse. Estimated blood loss was minimal. retained bile noted in stomach The examined esophagus was normal. Impression: - Normal first portion of the duodenum and second portion of the duodenum. - Erythematous mucosa in the antrum. Biopsied for H pylori, retained bile noted in stomach. - Normal esophagus. Recommendation: - Discharge patient to home (ambulatory). - Resume previous diet. - Continue present medications. - - Follow up with Yajaira Jin NP, may be via televisit for discussion of pathology results Procedure Code(s): --- Professional --- 24608, Esophagogastroduodenoscop y, flexible, transoral; with biopsy, single or multiple Diagnosis Code(s): --- Professional --- D50.9, Iron deficiency anemia, unspecified K31.89, Other diseases of stomach and duodenum CPT copyright 2020 [employer]. All rights reserved. The codes documented in this report are preliminary and upon in house cra review may be revised to meet current compliance requirements. Attending Participation: I personally performed the entire procedure. Scope In: 1:01:27 PM Scope Out: 1:06:46 PM MD Marce Fischer MD 11/15/2024 1:11:02 PM This report has been signed electronically by Marce Larkin MD Number of Addenda: 0 Note Initiated On: 11/15/2024 12:49 PM Estimated Blood Loss: Estimated blood loss was minimal. Normal [facility] 11-08-2024 [facility] Telephone (TechLoanerS) ----- LORAINEJANESSA Lawrence ([id number]) 1950 F Date Time Provider Department 11/08/24 KALI BACON During your visit today, we recorded the following information about you: Harmony Haas LPN 11/08/2024 5:23 PM Signed Patient left a message stating she needs instructions for diabetic medication dosing prior to colonoscopy on 11/15/24. Please advise. Harmony Haas LPN November 08, 2024 5:23 PM Kali Bacon MD 11/09/2024 11:21 AM Signed Hold Amaryl once she starts fasting. Okay to take metformin and Januvia Ramos Solis LPN 11/09/2024 11:51 AM Signed Patient notified of information, verbalized understanding. No questions, comments, or concerns at this time. Ramos Solis LPN November 09, 2024 11:51 AM Allergies As of Date: 11/08/2024 Noted Allergy Reaction METOCLOPRAMIDE 01/31/2017 16 - Unknown SULFAMETHOXAZOLE-TRIMETHO PRIM 04/01/2017 16 - Unknown MORPHINE 07/24/2020 16 - Unknown ACETAMINOPHEN 04/07/2023 16 - Unknown AUGMENTIN (AMOXICILLIN-POT CLAVUL*04/27/2018 2 - Rash CEFZIL (CEFPROZIL) 04/27/2018 2 - Rash DAYQUIL ALLERGY 12-HR 04/27/2018 4 - Hives DEXTROMETHORPHAN 01/31/2017 4 - Hives DOXYLAMINE 01/31/2017 4 - Hives ERYTHROMYCIN 04/27/2018 2 - Rash IODINATED CONTRAST MEDIA 05/22/2019 4 - Hives IVP DYE (IODINE) 04/27/2018 16 - Unknown Comments: knot on head LINCOMYCIN 04/27/2018 2 - Rash PSEUDOEPHEDRINE 01/31/2017 4 - Hives REGLAN (METOCLOPRAMIDE HCL) 04/27/2018 5 - Intolerance LHPFILO-FOS-HKP REDUCTASE INHIBIT*01/31/2017 16 - Unknown Comments: Other reaction(s): Other TEQUIN (GATIFLOXACIN) 04/27/2018 2 - Rash DOXYCYCLINE 11/28/2018 16 - Unknown 11 - Vomiting Date Reviewed: 11/07/2024 Reviewed by: Fanny Barron - Fully Assessed Reason for Visit: Patient Question [1916] Cmt: DM meds with COLONOSCOPY Prescriptions as of 11/09/2024 - SITagliptin phosphate (JANUVIA) 100 mg tablet Take 1 tablet by mouth once daily. - hydrOXYzine HCl (ATARAX) 25 mg tablet Take 1 tablet by mouth every 12 hours as needed for anxiety. - predniSONE (DELTASONE) 20 mg tablet Take 3 tablets by mouth once daily. X3d, then 2 po every day x 3d then 1 po every day x 3d, then 1/2 po every day x 4d - benzonatate (TESSALON PERLE) 100 mg capsule Take 1 capsule by mouth three times a day as needed. - glimepiride (AMARYL) 4 mg tablet Take 1 tablet by mouth daily with breakfast. - HYDROcodone-acetaminophen (NORCO) 5-325 mg per tablet Take 1 tablet by mouth every 8 hours as needed for pain. - benzocaine/benzethon Cl (DERMOPLAST ANTIBACTERIAL TOPICAL) Apply to affected area as needed. - lidocaine (SALONPAS) 4 % patch Apply 1 application as directed once daily. - albuterol (PROVENTIL) 2.5 mg /3 mL (0.083 %) nebulizer solution INHALE WITH 1 VIAL IN NEBULIZER EVERY SIX HOURS NEEDED - rosuvastatin (CRESTOR) 10 mg tablet Take 1 tablet by mouth daily at bedtime. - metFORMIN (GLUCOPHAGE) 500 mg tablet Take 2 tablets by mouth two times a day with meals. - blood sugar diagnostic (ArterisTOUCH ULTRA TEST) test strip Monitor blood sugar daily and as needed. - montelukast (SINGULAIR) 10 mg tablet Take 1 tablet by mouth daily at bedtime. - omeprazole (PRILOSEC) 40 mg capsule Take 1 capsule by mouth two times a day. - pioglitazone (ACTOS) 45 mg tablet Take 1 tablet by mouth once daily. - lisinopril-hydroCHLOROthi azide (ZESTORETIC) 20-12.5 mg per tablet Take 1 tablet by mouth once daily. - ketoconazole (NIZORAL) 2 % cream Apply to affected area once daily for 10 days. - NYSTOP powder APPLY TO THE AFFECTED AREA(S) THREE TIMES DAILY - sucralfate (CARAFATE) 1 gram tablet Take 1 g by mouth three times a day. 1/2 hour before meals - budesonide (PULMICORT) 0.5 mg/2 mL nebulizer solution mix 2 ampules with saline and apply twice daily - gel base no.41, bulk, (HYDROGEL) gel 1 Dose once daily. - lancets (ONE TOUCH DELICA) 33 gauge 1 Each once daily. - blood sugar diagnostic (ONETOUCH ULTRA TEST) test strip 1 Strip before meals and at bedtime. Use as instructed - aspirin, enteric coated (ASPIRIN, ENTERIC COATED) 81 mg EC tablet Take 81 mg by mouth once daily. - lancets (TRUEPLUS LANCETS) 33 gauge Monitor blood sugar daily and as needed. - traMADol (ULTRAM) 50 mg tablet Take 50 mg by mouth every 6 hours as needed for pain. - diclofenac (VOLTAREN) 1 % topical gel Apply to affected area four times daily. - mag carb/aluminum hydrox/algin (GAVISCON ORAL) Take 1 tablet by mouth as needed. - cetirizine HCl (ZYRTEC ORAL) Take 1 tablet by mouth once daily. - ubidecarenone (CO Q-10 ORAL) Take 1 tablet by mouth once daily. Problem List As Of Date 11/08/2024 Noted Resolved Type 2 diabetes mellitus without complication, *05/22/2022 Allergic rhinitis [J30.9] 06/05/2019 Asthma [J45.909] 03/01/2017 Essential (primary) hypertension [I10] 03/01/2017 Hypercholes (more content not included)... [facility] CNOVSPon 11-06-2024 CNOVSP Visit (SP) Office (ANA[place]) ----- LORAINEJANESSA PHILLIP ([id number]) 1950 F Date Time Provider Department 11/06/24 9:30 AM FANNY BARRON During your visit today, we recorded the following information about you: Temperature Pulse Blood pressure Weight 98.4 degrees 88/minute 144/79 88.5 kg Fanny Barron 11/07/2024 11:28 AM Signed Progress Note Janessa Baron 1950 Encounter date: 09/05/2024 HPI: Janessa Baron is a 74 year old female with PMHx of HTN, HLD, a-fib, CAD, asthma, T2DM, spinal stenosis and DDD. Presents today as a referral by her PCP Dr. Bacon for further management of iron deficiency anemia identified on preoperative exam. She reports fatigue today. Feels a bit overwhelmed by everything going on at the moment with appts and drs visits between her and her . Noted 5 surgeries all in 1 year, triple bypass 11/26/2022, torn meniscus, L carotid surg 01/25/24, cholecystectomy. She was started on IV iron, has received 2 doses out of 3 planned. Tolerating well thus fa but has not noticed any improvements in symptoms at this time. Has never received IV iron or blood transfusions in the past that she is aware of. No PO iron use. She is on PPI. Denies current CP, SOB, CP. No unintentional weight loss, appetite is good. Just a lot going on recently. No energy. Denies headaches or dizziness. Denies fevers. Current UTI currently on macrobid, started on Wednesday. Carpal tunnel in L hand. Endorses RLS. No PICA or ice cravings. Denies abd pains. No changes in bowel habits. Denies hematochezia, hematuria. Was supposed to have back surgery next week which was postponed due to elevated A1C. Constant pain every day L4/L5l. Limiting mobility. She is currently working to lower A1C. Due for repeat colonoscopy. Encouraged her to schedule. Sister with colon ca. Denies personal hx od cancers, blood or bleeding disorders. Interval Hx: Recent admission for urosepsis. Had no urinary symptoms or s/s of infection, which really concerns her as she does not know what to look for to prevent in the future. She was taking her to appt at [facility] Main and collapse outside hospital. Spent 5 days admitted. Completed IV iron series, last dose on 09/11/24. Tolerated well. Improvement in Hgb.She denies bleeding. No hematuria, hematochezia. No changes in bowel or bladder habits. B12 less that 150 on latest labs. Reviewed with her today. PAST MEDICAL HISTORY Diagnosis Date Asthma Carotid stenosis Delayed emergence from general anesthesia deep anesthesia 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) 05/22/2022 Diabetes mellitus, type 2 (HCC) Hyperlipidemia Hypertension Sliding hiatal hernia PAST SURGICAL HISTORY Procedure Laterality Date BREAST BIOPSY Bilateral benign BREAST SURGERY HX CHOLECYSTECTOMY COLONOSCOPY 05/2017 COLONOSCOPY SCREENING 2019 EGD 04/2017 EGD DIAGNOSTIC 01/2023 F SALPINGO-OOPHORECTOMY Left IR RT HEART CATH 11/10/2022 PAST SURGICAL HISTORY OF left TM repair PAST SURGICAL HISTORY OF Left 12/1991 Repair of hole in left eardrum PAST SURGICAL HISTORY OF 06/03/1998 Scalp - removal of sebaceaous cyst PAST SURGICAL HISTORY OF 11/26/2022 Triple Bypass PAST SURGICAL HISTORY OF 01/25/2024 Left carotid artery stint REMV CATARACT EXTRACAP,INSERT LENS Left REMV CATARACT EXTRACAP,INSERT LENS Right TUBAL LIGATION Current Outpatient Medications Medication Sig Dispense Refill SITagliptin phosphate (JANUVIA) 100 mg tablet Take 1 tablet by mouth once daily. 90 tablet 3 hydrOXYzine HCl (ATARAX) 25 mg tablet Take 1 tablet by mouth every 12 hours as needed for anxiety. 15 tablet 0 predniSONE (DELTASONE) 20 mg tablet Take 3 tablets by mouth once daily. X3d, then 2 po every day x 3d then 1 po every day x 3d, then 1/2 po every day x 4d 20 tablet 0 benzonatate (TESSALON PERLE) 100 mg capsule Take 1 capsule by mouth three times a day as needed. 30 capsule 0 glimepiride (AMARYL) 4 mg tablet Take 1 tablet by mouth daily with breakfast. 90 tablet 3 HYDROcodone-acetaminophen (NORCO) 5-325 mg per tablet Take 1 tablet by mouth every 8 hours as needed for pain. benzocaine/benzethon Cl (DERMOPLAST ANTIBACTERIAL TOPICAL) Apply to affected area as needed. lidocaine (SALONPAS) 4 % patch Apply 1 application as directed once daily. albuterol (PROVENTIL) 2.5 mg /3 mL (0.083 %) nebulizer solution INHALE WITH 1 VIAL IN NEBULIZER EVERY SIX HOURS NEEDED 90 mL 3 rosuvastatin (CRESTOR) 10 mg tablet Take 1 tablet by mouth daily at bedtime. 90 tablet 3 metFORMIN (GLUCOPHAGE) 500 mg tablet Take 2 tablets by mouth two times a day with meals. 360 tablet 3 montelukast (SINGULAIR) 10 mg tablet Take 1 tablet by mouth daily at bedtime. 90 tablet 3 omeprazole (PRILOSEC) 40 mg capsule Take 1 capsule by mouth two times a day. 180 capsule 3 pioglitazone (ACTOS) 45 mg tablet Take 1 (more content not included)... Normal [facility] CBC W Auto Differential pane l (Bld)on 11-04-2024 Basophils (Bld) [#/Vol] 0.04 10*3/uL Normal <0.11 [facility] Comment on above: Order Comment: Speci men Type: BLOOD SPECIMEN Ordering Facility: [facility] Address: [address] [place] [place] [address] Performed By: #### 2 132-9, 8 #### [facility] CLIA [id number] [address] [place] [address] [place] Basophils/100 WBC (Bld) 0.3 % Normal [facility] Comment on above: Order Comment: Speci men Type: BLOOD SPECIMEN Ordering Facility: [facility] Address: [address] [place] [address] Performed By: #### 2 1329, 2284-03 #### [facility] CLIA [id number] [address] [place] [address] [place] Differential cell count method Nom (Bld) Auto Normal [facility] Comment on above: Order Comment: Speci men Type: BLOOD SPECIMEN Ordering Facility: [facility] Address: [address] [place] [address] Performed By: #### 2 1329, 2284-03 #### [facility] CLIA [id number] [address] [place] [address] [place] Eosinophils (Bld) [#/Vol] 0.16 10*3/uL Normal <0.46 [facility] Comment on above: Order Comment: Speci men Type: BLOOD SPECIMEN Ordering Facility: [facility] Address: [address] [place] [address] Performed By: #### 2 1329, 2284-03 #### [facility] CLIA [id number] [address] [place] [address] [place] Eosinophils/100 WBC (Bld) 1.4 % Normal [facility] Comment on above: Order Comment: Speci men Type: BLOOD SPECIMEN Ordering Facility: [facility] Address: [address] [place] [address] Performed By: #### 2 1329, 2284-03 #### [facility] CLIA [id number] [address] [id number] [address] [place] Erythrocyte distribution width (RBC) [Ratio] 22.8 % High 11.5-15.0 [facility] Comment on above: Order Comment: Speci men Type: BLOOD SPECIMEN Ordering Facility: [facility] Address: [address] [place] [address] Performed By: #### 2 132-9, 8 #### [facility] CLIA [id number] [address] [place] [address] [place] Hematocrit (Bld) [Volume fraction] 40.0 % Normal 36.0-46.0 [facility] Comment on above: Order Comment: Speci men Type: BLOOD SPECIMEN Ordering Facility: [facility] Address: [address] [place] [address] Performed By: #### 2 132-9, 8 #### [facility] CLIA [id number] [address] [place] [address] [place] Hemoglobin (Bld) [Mass/Vol] 12.8 g/dL Normal 11.5-15.5 [facility] Comment on above: Order Comment: Speci men Type: BLOOD SPECIMEN Ordering Facility: [facility] Address: [address] [place] [address] Performed By: #### 2 132-9, 2284-03 #### [facility] CLIA [id number] [address] [place] [address] [place] Immature granulocytes (Bld) [#/Vol] 0.05 10*3/uL Normal <0.10 [facility] Comment on above: Order Comment: Speci men Type: BLOOD SPECIMEN Ordering Facility: [facility] Address: [address] [place] [address] Performed By: #### 2 132-9, 8 #### [facility] CLIA [id number] [address] [place] [address] [place] Immature granulocytes/100 WBC (Bld) 0.4 % Normal [facility] Comment on above: Order Comment: Speci men Type: BLOOD SPECIMEN Ordering Facility: [facility] Address: [address] [place] [address] Performed By: #### 2 132-9, 8 #### [facility] CLIA [id number] [address] [place] [address] [place] Lymphocytes (Bld) [#/Vol] 3.45 10*3/uL Normal 1.00-4.00 [facility] Comment on above: Order Comment: Speci men Type: BLOOD SPECIMEN Ordering Facility: [facility] Address: [address] [place] [address] Performed By: #### 2 132-9, 8 #### [facility] CLIA [id number] [address] [place] [address] [place] Lymphocytes/100 WBC (Bld) 30.2 % Normal [facility] Comment on above: Order Comment: Speci men Type: BLOOD SPECIMEN Ordering Facility: [facility] Address: [address] [place] [address] Performed By: #### 2 132-9, 8 #### [facility] CLIA [id number] [address] [place] [address] [place] MCH (RBC) [Entitic mass] 26.4 pg Normal 26.0-34.0 [facility] Comment on above: Order Comment: Speci men Type: BLOOD SPECIMEN Ordering Facility: [facility] Address: [address] [place] [address] Performed By: #### 2 132-9, 8 #### [facility] CLIA [id number] [address] [place] [address] [place] MCHC (RBC) [Mass/Vol] 32.0 g/dL Normal 30.5-36.0 [facility] Comment on above: Order Comment: Speci men Type: BLOOD SPECIMEN Ordering Facility: [facility] Address: [address] [place] [address] Performed By: #### 2 132-9, 8 #### [facility] CLIA [id number] [address] [place] [address] [place] MCV (RBC) [Entitic vol] 82.5 fL Normal 80.0-100.0 [facility] Comment on above: Order Comment: Speci men Type: BLOOD SPECIMEN Ordering Facility: [facility] Address: [address] [place] [address] Performed By: #### 2 132-9, 8 #### [facility] CLIA [id number] [address] [place] [address] [place] Monocytes (Bld) [#/Vol] 0.86 10*3/uL Normal <0.87 [facility] Comment on above: Order Comment: Speci men Type: BLOOD SPECIMEN Ordering Facility: [facility] Address: [address] [place] [address] Performed By: #### 2 132-9, 2284-03 #### [facility] CLIA [id number] [address] [place] [address] [place] Monocytes/100 WBC (Bld) 7.5 % Normal [facility] Comment on above: Order Comment: Speci men Type: BLOOD SPECIMEN Ordering Facility: [facility] Address: [address] [place] [address] Performed By: #### 2 132-9, 8 #### [facility] CLIA [id number] [address] [place] [address] [place] Neutrophils (Bld) [#/Vol] 6.87 10*3/uL Normal 1.45-7.50 [facility] Comment on above: Order Comment: Speci men Type: BLOOD SPECIMEN Ordering Facility: [facility] Address: [address] [place] [address] Performed By: #### 2 132-9, 8 #### [facility] CLIA [id number] [address] [place] [address] [place] Neutrophils/100 WBC (Bld) 60.2 % Normal [facility] Comment on above: Order Comment: Speci men Type: BLOOD SPECIMEN Ordering Facility: [facility] Address: [address] [place] [address] Performed By: #### 2 132-9, 2283-8 #### [facility] CLIA [id number] [address] [place] [address] [place] Nucleated RBC (Bld) [#/Vol] 10*3/uL Normal <0.01 [facility] Comment on above: Order Comment: Speci men Type: BLOOD SPECIMEN Ordering Facility: [facility] Address: [address] [place] [address] Performed By: #### 2 132-9, 8 #### [facility] CLIA [id number] [address] [place] [address] [place] Nucleated RBC/100 WBC (Bld) [Ratio] 0.0 /100 WBC Normal [facility] Comment on above: Order Comment: Speci men Type: BLOOD SPECIMEN Ordering Facility: [facility] Address: [address] [place] [address] Performed By: #### 2 132-9, 8 #### [facility] CLIA [id number] [address] [place] [address] [place] Platelet mean volume (Bld) [Entitic vol] 10.4 fL Normal 9.0-12.7 [facility] Comment on above: Order Comment: Speci men Type: BLOOD SPECIMEN Ordering Facility: [facility] Address: [address] [place] [address] Performed By: #### 2 132-9, 8 #### [facility] CLIA [id number] [address] [place] [address] [place] Platelets (Bld) [#/Vol] 322 10*3/uL Normal 150-400 [facility] Comment on above: Order Comment: Speci men Type: BLOOD SPECIMEN Ordering Facility: [facility] Address: [address] [place] [address] Performed By: #### 2 132-9, 8 #### [facility] CLIA [id number] [address] [place] [address] [place] RBC (Bld) [#/Vol] 4.85 10*6/uL Normal 3.90-5.20 [facility] Comment on above: Order Comment: Speci men Type: BLOOD SPECIMEN Ordering Facility: [facility] Address: [address] [place] [address] Performed By: #### 2 132-9, 8 #### [facility] CLIA [id number] [address] [place] [address] [place] WBC (Bld) [#/Vol] 11.43 10*3/uL High 3.70-11.00 [facility] Comment on above: Order Comment: Speci men Type: BLOOD SPECIMEN Ordering Facility: [facility] Address: [address] [place] [address] Performed By: #### 2 132-9, 2284-03 #### [facility] CLIA [id number] [address] [place] [address] [place] COPPER BLOODon 11-04-2024 Copper [Mass/Vol] 78 ug/dL Low 80-155 [facility] Comment on above: Order Comment: Speci men Type: BLOOD SPECIMEN Ordering Facility: [facility] Address: [address] [place] [address] Result Comment: This test was developed, and its performance characteristics determined by the [facility] Department of Pathology and Laboratory Medicine. It has not been cleared or approved by the FDA. The [facility] Department of Pathology and Laboratory Medicine is regulated under CLIA as qualified to perform high-complexity testing. This test is used for clinical purposes. It should not be regarded as investigational or for research. Performed By: #### 5 763-8, COPPER #### [facility] CLIA [id number] [address] [place], [place] [address] [place] Comprehensive metabolic 2000 panelon 11-04-2024 Albumin [Mass/Vol] 4.4 g/dL Normal 3.9-4.9 [facility] Comment on above: Order Comment: Speci men Type: BLOOD SPECIMEN Ordering Facility: [facility] Address: [address] [place] [address] Performed By: #### 2 132-9, 2283-8 #### [facility] CLIA [id number] [address] [place] [address] [place] ALP [Catalytic activity/Vol] 72 U/L Normal 34-123 [facility] Comment on above: Order Comment: Speci men Type: BLOOD SPECIMEN Ordering Facility: [facility] Address: [address] [place] [address] Performed By: #### 2 132-9, 8 #### [facility] CLIA [id number] [address] [place], [place] [address] [place] ALT [Catalytic activity/Vol] 13 U/L Normal 7-38 [facility] Comment on above: Order Comment: Speci men Type: BLOOD SPECIMEN Ordering Facility: [facility] Address: [address] [place] [address] Performed By: #### 2 132-9, 8 #### [facility] CLIA [id number] [address] [place], [place] [address] [place] Anion gap [Moles/Vol] 15 mmol/L Normal 8-15 [facility] Comment on above: Order Comment: Speci men Type: BLOOD SPECIMEN Ordering Facility: [facility] Address: [address] [place] [address] Performed By: #### 2 132-9, 2283-8 #### [facility] CLIA [id number] [address] [place], [place] [address] [place] AST [Catalytic activity/Vol] 14 U/L Normal 13-35 [facility] Comment on above: Order Comment: Speci men Type: BLOOD SPECIMEN Ordering Facility: [facility] Address: [address] [place] [address] Performed By: #### 2 132-9, 8 #### [facility] CLIA [id number] [address] [place] [address] [place] Bilirubin [Mass/Vol] 0.3 mg/dL Normal 0.2-1.3 [facility] Comment on above: Order Comment: Speci men Type: BLOOD SPECIMEN Ordering Facility: [facility] Address: [address] [place] [address] Performed By: #### 2 132-9, 8 #### [facility] CLIA [id number] [address] [place] [address] [place] Calcium [Mass/Vol] 9.5 mg/dL Normal 8.5-10.2 [facility] Comment on above: Order Comment: Speci men Type: BLOOD SPECIMEN Ordering Facility: [facility] Address: [address] [place] [address] Performed By: #### 2 132-9, 8 #### [facility] CLIA [id number] [address] [place] [address] [place] Chloride [Moles/Vol] 97 mmol/L Low 98-107 [facility] Comment on above: Order Comment: Speci men Type: BLOOD SPECIMEN Ordering Facility: [facility] Address: [address] [place] [address] Performed By: #### 2 132-9, 8 #### [facility] CLIA [id number] [address] [place] [address] [place] CO2 [Moles/Vol] 25 mmol/L Normal 22-30 [facility] Comment on above: Order Comment: Speci men Type: BLOOD SPECIMEN Ordering Facility: [facility] Address: [address] [place] [address] Performed By: #### 2 132-9, 2283-8 #### [facility] CLIA [id number] [address] [place] [address] [place] Creatinine [Mass/Vol] 0.82 mg/dL Normal 0.58-0.96 [facility] Comment on above: Order Comment: Speci men Type: BLOOD SPECIMEN Ordering Facility: [facility] Address: [address] [place] [address] Performed By: #### 2 132-9, 2283-8 #### [facility] CLIA [id number] [address] [place] [address] [place] Creatinine and Glomerular filtration rate.predicted panel (S/P/Bld) 76 mL/min/1.73m??? Normal >=60 [facility] Comment on above: Order Comment: Juani men Type: BLOOD SPECIMEN Ordering Facility: [facility] Address: [address] [place] [address] Result Comment: Shauna mated Glomerular Filtration Rate (eGFR) is calculated using the 2020 CKD-EPI creatinine equation. This equation utilizes serum creatinine, sex, and age as parameters. The creatinine assay has traceable calibration to isotope dilution-mass spectrometry. Refer to KDIGO guidelines for clinical interpretation. In patients with unstable renal function, e.g. those with acute kidney injury, the eGFR may not accurately reflect actual GFR. Performed By: #### 2 132-9, 2283-8 #### [facility] CLIA [id number] [address] [place] [address] [place] Glucose [Mass/Vol] 143 mg/dL High 74-99 [facility] Comment on above: Order Comment: Speci men Type: BLOOD SPECIMEN Ordering Facility: [facility] Address: [address] [place] [address] Result Comment: The [place] Diabetes [employer] (ADA) provides guidance for cutoff values for fasting glucose and random glucose. The ADA defines fasting as no caloric intake for at least 8 hours. Fasting plasma glucose results between 100 to 125 mg/dL indicate increased risk for diabetes (prediabetes). Fasting plasma glucose results greater than or equal to 126 mg/dL meet the criteria for diagnosis of diabetes. In the absence of unequivocal hyperglycemia, results should be confirmed by repeat testing. In a patient with classic symptoms of hyperglycemia or hyperglycemic crisis, random plasma glucose results greater than or equal to 200 mg/dL meet the criteria for diagnosis of diabetes. Reference: Standards of Medical Care in Diabetes 2016, [place] [employer]. Diabetes Care. 2016.39(Suppl 1). Performed By: #### 2 132-9, 2284-03 #### [facility] CLIA [id number] [address] [place] [address] [place] Potassium [Moles/Vol] 3.6 mmol/L Low 3.7-5.1 [facility] Comment on above: Order Comment: Speci men Type: BLOOD SPECIMEN Ordering Facility: [facility] Address: [address] [place] [address] Performed By: #### 2 9, 2284-03 #### [facility] CLIA [id number] [address] [place] [address] [place] Protein [Mass/Vol] 7.4 g/dL Normal 6.3-8.0 [facility] Comment on above: Order Comment: Juani amelia Type: BLOOD SPECIMEN Ordering Facility: [facility] Address: [address] [place] [address] Performed By: #### 2 9, 2284-03 #### [facility] CLIA [id number] [address] [place] [address] [place] Sodium [Moles/Vol] 137 mmol/L Normal 136-144 [facility] Comment on above: Order Comment: Speci men Type: BLOOD SPECIMEN Ordering Facility: [facility] Address: [address] [place] [address] Performed By: #### 2 132-9, 2284-03 #### [facility] CLIA [id number] [address] [place] [address] [place] Urea nitrogen [Mass/Vol] 22 mg/dL High 7-21 [facility] Comment on above: Order Comment: Speci men Type: BLOOD SPECIMEN Ordering Facility: [facility] Address: [address] [place] [address] Performed By: #### 2 132-9, 2284-8 #### [facility] CLIA [id number] [address] [place] [address] [place] Ferritin SerPl-mCncon 2024 Ferritin [Mass/Vol] 131.0 ng/mL Normal 14.7-205.1 [facility] Comment on above: Order Comment: Speci men Type: BLOOD SPECIMEN Ordering Facility: [facility] Address: [address] [place] [address] Performed By: #### 2 132-9, 2284-8 #### [facility] CLIA [id number] [address] [place] [address] [place] Folate SerPl-mCncon 11-05-19 25 Folate [Mass/Vol] 20.0 ng/mL Normal >4.7 [facility] Comment on above: Order Comment: Speci men Type: BLOOD SPECIMEN Ordering Facility: [facility] Address: [address] [place] [address] Performed By: #### 2 132-9, 4-8 #### [facility] CLIA [id number] [address] [place] [address] [place] Iron and Iron binding capaci ty panelon 11-04-2024 Iron [Mass/Vol] 57 ug/dL Normal 41-186 [facility] Comment on above: Order Comment: Speci men Type: BLOOD SPECIMEN Ordering Facility: [facility] Address: [address] [place] [address] Performed By: #### 2 132-9, 2284-8 #### [facility] CLIA [id number] [address] [place] [address] [place] Iron binding capacity [Mass/Vol] 313 ug/dL Normal 232-386 [facility] Comment on above: Order Comment: Speci men Type: BLOOD SPECIMEN Ordering Facility: [facility] Address: [address] [place] [address] Performed By: #### 2 132-9, 2284-8 #### [facility] CLIA [id number] [address] [place] [address] [place] Iron/TIBC [Molar ratio] 18.2 % Normal 15.0-57.0 [facility] Comment on above: Order Comment: Speci men Type: BLOOD SPECIMEN Ordering Facility: [facility] Address: [address] [place] [address] Performed By: #### 2 132-9, 2283-8 #### [facility] CLIA [id number] [address] [place] [address] [place] Methylmalonate SerPl-sCncon 11-04-2024 Methylmalonate [Moles/Vol] 0.48 umol/L High <=0.40 [facility] Comment on above: Order Comment: Speci amelia Type: BLOOD SPECIMEN Ordering Facility: [facility] Address: [address] [place] [address] Result Comment: This test was developed, and its performance characteristics determined by the [facility] Department of Pathology and Laboratory Medicine. It has not been cleared or approved by the FDA. The [facility] Department of Pathology and Laboratory Medicine is regulated under CLIA as qualified to perform high-complexity testing. This test is used for clinical purposes. It should not be regarded as investigational or for research. Performed By: #### 1 3964-2 #### [facility] CLIA [id number] [address] [place] [address] [place] Vit B12 SerPl-mCncon 025 Cobalamin (Vitamin B12) [Mass/Vol] pg/mL Low 232-1245 [facility] Comment on above: Order Comment: Speci men Type: BLOOD SPECIMEN Ordering Facility: [facility] Address: [address] [place] [address] Result Comment: Resu lt rechecked. Performed By: #### 2 132-9, 2284-8 #### [facility] CLIA [id number] [address] [place] [address] [place] Zinc SerPl-mCncon 11-04-2024 Zinc [Mass/Vol] 62 ug/dL Normal 60-120 [facility] Comment on above: Order Comment: Speci men Type: BLOOD SPECIMEN Ordering Facility: [facility] Address: [address] [place] [address] Result Comment: This test was developed, and its performance characteristics determined by the [facility] Department of Pathology and Laboratory Medicine. It has not been cleared or approved by the FDA. The [facility] Department of Pathology and Laboratory Medicine is regulated under CLIA as qualified to perform high-complexity testing. This test is used for clinical purposes. It should not be regarded as investigational or for research. Performed By: #### 5 763-8, COPPER #### [facility] CLIA [id number] [address] [place] [address] [place] L3410.9998on 10-31-2024 [facility]. Normal [facility] Comment on above: Order Comment: [id number] TRAMADOL Result Comment: TEST RESULTS LIMITS Tramadol, Urine Tramadol Positive Pundky=144 Tramadol Conf, MS, UR >90638 ng/mL Ebniog=235 Tramadol detected; this finding can be consistent with use of medications that include Ultram, Topalgic, Tradol, Zydol, or generic formulations. Drugs listed are safety representative of common sources of the compound detected and are not intended to include all possible sources. Please Note: Drug test results should be interpreted in the context of clinical information. Patient metabolic variables, specific drug chemistry, and specimen characteristics can affect test outcome. Technical consultation is available if a test result is inconsistent with an expected outcome. Email: [email or web address] TESTING PERFORMED AT [facility]. ORIGINAL REPORT ON FILE IN LAB CONTAINS ADDITIONAL TEST SITE INFORMATION. Performed By: #### L 3410.9998 #### [facility] [address] [place], [place], [address] Urine Cultureon 10-26-2024 [facility] Culture exhibits no growth. Normal [facility] Comment on above: Performed By: #### L 503.6030 #### [facility] [address] [place], [place], [address] Laboratory - Chemistry and C hemistry - challengeOrdered By: Monica Lomeli on 10-25-2024 Bilirubin Ql (U) Negative [facility] Glucose Ql (U) Negative [facility] Ketones Ql (U) Negative [facility] pH (U) 5.0 [pH] [facility] Specific gravity (U) [Rel density] 1.010 [facility] Urobilinogen (U) [Mass/Vol] 0.7763090 mg/dL [facility] - Hematology and Cell countsOrdered By: Monica Lomeli on 10-25-2024 Hemoglobin Ql (U) Negative [facility] - Specimen inform ationOrdered By: Monica Lomeli on 10-25-2024 Clarity (U) Clear [facility] Color (U) Yellow [facility] - UrinalysisOrder ed By: Monica Lomeli on 10-25-2024 Nitrite Ql (U) Negative [facility] Protein Ql (U) Negative [facility] No Panel InformationOrdered By: Monica Lomeli on 10-25-2024 Urine Leukocytes Negatve [facility] Aircraft Servicer Office Visit Reporton 10-25-2024 Aircraft Servicer Office Visit Report [facility] [address], [address] [place] [address] OFFICE VISIT Date of Service: 10/25/24 MR#: [id number] Acct: [id number] Name: JANESSA BARON Rep #: [id number] : 1950 Provider: Dr. Monica Collins, DO Age/Sex: 74/F Location: [facility] [place] Status: Signed Intake Vital Signs 09/18/24 15:32 10/25/24 08:11 10/25/24 08:12 Height 5 ft 3 in 5 ft 3 in 5 ft 3 in Weight: 195 lb 4 oz BMI 34.5 BP 163/72 H Intake Visit Reasons: vaginal itching and rash Quiller Operator Required: No Is patient in pain?: No Allergies doxycycline Allergy (Mild, Verified 10/25/24 08:10) unknown sulfamethoxazole (From Bactrim) Allergy (Mild, Verified 10/25/24 08:10) unknown trimethoprim (From Bactrim) Allergy (Mild, Verified 10/25/24 08:10) unknown amoxicillin (From Augmentin) Allergy (Verified 10/25/24 08:10) Hives cefprozil (From Cefzil) Allergy (Verified 10/25/24 08:10) Hives clavulanic acid (From Augmentin) Allergy (Verified 10/25/24 08:10) Hives dextromethorphan (From NyQuil) Allergy (Verified 10/25/24 08:10) Hives doxylamine (From NyQuil) Allergy (Verified 10/25/24 08:10) Hives erythromycin base Allergy (Verified 10/25/24 08:10) Hives gatifloxacin (From Tequin) Allergy (Verified 10/25/24 08:10) Hives lincomycin Allergy (Verified 10/25/24 08:10) Hives metoclopramide (From Reglan) Allergy (Verified 10/25/24 08:10) Other pseudoephedrine (From NyQuil) Allergy (Verified 10/25/24 08:10) Hives empagliflozin (From Jardiance) Adverse Reaction (Severe, Verified 10/25/24 08:22) UTI/sepsis morphine Adverse Reaction (Intermediate, Verified 10/25/24 08:10) tachycardia Medications ???Medication ???Instructions ???Recorded ???Confirmed ???Type montelukast 10 mg tablet 10 mg PO QHS ASTHMA 05/21/1610/25 History cetirizine 10 mg capsule (Zyrtec) 5 mg PO DAILY allergy symptoms 10/25/24 History Al hyd-Mg tr-alg ac-sod bicarb 80 1 tab PO DAILY PRN GAS 05/22/19 0 10/25/24 History mg-14.2 mg chewable tablet (Gaviscon) metformin 1,000 mg 24 hr 1,000 mg PO BID DIABETES 05/22/19 10/25/24 History tablet,extended release (gastric reten.) albuterol sulfate 90 mcg/actuation 2 puff inhalation Q6H PRN 10/25/24 History aerosol inhaler Shortness Of Breath Or Wheezing aspirin 81 mg tablet,delayed 81 mg PO DAILY HEART HEALTH 10/25/24 History release (Adult Low Dose Aspirin) tramadol 50 mg tablet 50 mg PO 4X/DAY Pain 01/04/2310/14 History glimepiride 4 mg tablet (Amaryl) 4 mg PO DAILY DIABETES 03/11/23 History rosuvastatin 10 mg tablet (Crestor) 10 mg PO QHS HLD 09/17/2310/25 History omeprazole 40 mg capsule,delayed 40 mg PO BID GERD 10/12/23 5 History release pioglitazone 45 mg tablet (Actos) 45 mg PO DAILY DIABETES 01/11/24 10/25/24 History lisinopril 20 1 tab PO DAILY htn 01/25/24 History mg-hydrochlorothiazide 12.5 mg tablet triamcinolone acetonide 0.1 % 1 applic topical QDAY PRN SKIN 10/25/24 History topical cream docusate sodium 100 mg capsule 100 mg PO DAILY Constipation 08/2910/25/24 History hydrocodone-acetaminophen 5-325mg 0.5 tab PO .DAILY PRN PRN pain 10/25/24 History 5mg-325mg ipratropium 0.5 mg-albuterol 3 mg 3 ml inhalation Q20M PRN trudynes s 08/29/24 10/25/24 History (2.5 mg base)/3 mL nebulization of breath or wheezing soln nystatin 100,000 unit/gram topical 1 applic topical TID PRN YEAST 0 09/18/24 10/25/24 Rx powder (Nystop) INFECTION #15 mg sitagliptin phosphate 100 mg 100 mg PO QDAY 10/25/24 10/25/24 H istory tablet (Januvia) Post menopausal: No Patient : No : No PFSH Medical History (Updated 10/25/24 @ 13:[address] Monica Rothman, DO) Sepsis Post-menopausal Depression Walker as ambulation aid Bladder disease Low iron Back pain Dietary restriction History of pain when walking History of transesophageal echocardiography (CHERI) Wears glasses Anxiety Restless legs History of hiatal hernia Gastric reflux History of IBS Non-smoker History of edema History of echocardiogram Cardiology follow-up encounter Left carotid bruit Pressure ulcer of left buttock, stage 2 Pressure ulcer of right buttock, stage 2 Postoperative atrial fibrillation H/o difficulty anesthesia Stomach inflammation Carotid stenosis Hyperlipidemia Hypertension Diabetes Asthma Arthritis Surgical History Hx of vascular surgery Hx of right cataract extraction Hx of left cataract extraction History of colonoscopy History of esophagogastroduodenoscop y (EGD) History of cardiac catheterization H/O removal of cyst History of lumpectomy (more content not included)... Normal [facility] Urine cultureOrdered By: Gabbi Lomeli on 10-25-2024 Bacteria identified Cx Nom (U) Culture exhibits no growth. [facility] L3410.9998on 10-12-2024 [facility] Misc. COMMENT Normal . [facility] Comment on above: Order Comment: [id number] URINE TOXICOLOGY Result Comment: Test Ordered: [id number] 6+Oxycodone-Bund Amphetamines, Urine Negative ng/mL UI Reference Range: Lydymt=0923 Amphetamine test includes Amphetamine and Methamphetamine. Barbiturate Negative ng/mL UI Reference Range: Zzqyij=571 Benzodiazepines Negative ng/mL UI Reference Range: Nkrlpx=653 Cannabinoids Negative ng/mL UI Reference Range: Cutoff=20 Cocaine (Metabolite) Negative ng/mL UI Reference Range: Yrzljh=313 Opiates Negative ng/mL UI Reference Range: Rknfok=595 Opiate test includes Codeine, Morphine, Hydromorphone, Hydrocodone. Oxycodone/Oxymorphone, Urine Negative ng/mL UI Reference Range: Sifqeh=125 Test includes Oxycodone and Oxymorphone Effective November 13, 2024, this test will be discontinued. Please contact your [facility] safety representative for suggested replacement test options. Performed at: [facility] [address] [facility], [place], [place] [id number] Computer Programmer Analyst: Kathy Appiah PhD, Phone: [phone] Performed at: - [facility] [address] [id number] Computer Programmer Analyst: Guero Dawson PhD, Phone: [phone] Performed By: #### L 3410.9998 #### [facility] [address] [place] [address]. [place], [place], [id number] BACTERIAL VAGINOSIS NAATon 0 10-09-2024 Lactobacillus crispatus+gasseri+gabbi senii + Gardnerella vaginalis + Atopobium vaginae rRNA CLAUDIA+probe Ql (Vag fld) Not detected Normal Not detected [facility] Comment on above: Order Comment: Speci men Type: BLOOD SPECIMEN Ordering Facility: [facility] Address: [address] [place] [address] Performed By: #### 2 132-9, 2284-8 #### [facility] CLIA [id number] [address] [place] [address] [place] Bacteria Ur Culton Bacteria identified Cx Nom (U) ORGANISM ID: 1 <10,000 CFU/ml Normal urogenital karyna Normal [facility] Comment on above: Performed By: #### 6 30-4 ####[facility] [id number] [place] [address] [place] MADELINE/TRICHOMONAS NAATon 0 10-09-2024 C. glabrata RNA CLAUDIA+probe Ql (Vag fld) Not detected Normal Not detected [facility] Comment on above: Order Comment: Speci men Type: BLOOD SPECIMEN Ordering Facility: [facility] Address: [address] [place] [address] Performed By: #### 2 132-9, 2284-8 #### [facility] CLIA [id number] [address] [place] [address] [place] Madeline sp DNA CLAUDIA+probe Ql (Vag fld) Not detected Normal Not detected [facility] Comment on above: Order Comment: Speci men Type: BLOOD SPECIMEN Ordering Facility: [facility] Address: [address] [place] [address] Result Comment: The Madeline species group target includes C. albicans, C. tropicalis, C. parapsilosis, and C. dubliniensis. Performed By: #### 2 132-9, 2284-8 #### [facility] CLIA [id number] [address] [place] [address] [place] T. vaginalis DNA CLAUDIA+probe Ql (Unsp spec) Not detected Normal Not detected [facility] Comment on above: Order Comment: Speci men Type: BLOOD SPECIMEN Ordering Facility: [facility] Address: [address] [place] [address] Performed By: #### 2 132-9, 2284-8 #### [facility] CLIA [id number] [address] [place] [address] OF [place] CNOVon 10-09-2024 CNOV Office Visit ([facility]WSTR ) ----- JANESSA BARON ([id number]) 1950 F Date Time Provider Department 10/09/24 10:30 AM [facility]ULA VALENTINE During your visit today, we recorded the following information about you: Temperature Pulse Respiration Blood pressure 97.5 degrees 93/minute 18/minute 144/82 Weight 88.8 kg Chula Valentine, PATRICIA.[employer] 10/09/2024 11:55 AM Signed CC: Patient presents with: frequrncy : Frequency and some itching x 2 weeks HPI Janessa Baron is a 74 year old female who is s/p hospitalization for pyelonephritis and sepsis 09/25/24, who presents today for vaginal itching and positive home UTI tests x 2. She is fearful another infection will occur without her knowing so she took a home test yesterday and today with positive leukocytes. She denies dysuria, frequency, discharge or hematuria.She has low back pain but this is not new. During her hospitalization she reports being treated for a yeast infection with Diflucan twice. She was sent home on miconazole vaginal inserts x 7 days and Cipro for her urinary infection. She finished miconazole yesterday and will take the last Cipro today. She was told to be cautious about any symptoms of UTI and address them ZAY if she had concerns. She has history DM II. Review of Systems Constitutional: Negative for appetite change, chills and fever. Respiratory: Negative for cough, chest tightness, shortness of breath and wheezing. Cardiovascular: Negative for chest pain and palpitations. Gastrointestinal: Negative for abdominal pain, diarrhea, nausea and vomiting. Genitourinary: Negative for difficulty urinating, dysuria, flank pain, frequency, hematuria, pelvic pain, urgency, vaginal bleeding, vaginal discharge and vaginal pain. Vulvae pruritus Musculoskeletal: Positive for back pain. Negative for myalgias. Skin: Negative for color change and rash. Neurological: Negative for dizziness, syncope, weakness, light-headedness and headaches. PAST MEDICAL HISTORY Diagnosis Date Asthma Carotid stenosis Delayed emergence from general anesthesia deep anesthesia 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) 05/22/2022 Diabetes mellitus, type 2 (HCC) Hyperlipidemia Hypertension Sliding hiatal hernia PAST SURGICAL HISTORY Procedure Laterality Date BREAST BIOPSY Bilateral benign BREAST SURGERY HX CHOLECYSTECTOMY COLONOSCOPY 05/2017 COLONOSCOPY SCREENING 2019 EGD 04/2017 EGD DIAGNOSTIC 01/2023 F SALPINGO-OOPHORECTOMY Left IR RT HEART CATH 11/10/2022 PAST SURGICAL HISTORY OF left TM repair PAST SURGICAL HISTORY OF Left 12/1991 Repair of hole in left eardrum PAST SURGICAL HISTORY OF 06/03/1998 Scalp - removal of sebaceaous cyst PAST SURGICAL HISTORY OF 11/26/2022 Triple Bypass PAST SURGICAL HISTORY OF 01/25/2024 Left carotid artery stint REMV CATARACT EXTRACAP,INSERT LENS Left REMV CATARACT EXTRACAP,INSERT LENS Right TUBAL LIGATION ALLERGIES Metoclopramide, Sulfamethoxazole-Trimetho prim, Morphine, Acetaminophen, Augmentin [Amoxicillin-Pot Clavulanate], Cefzil [Cefprozil], Dayquil Allergy 12-Hr, Dextromethorphan, Doxylamine, Erythromycin, Iodinated Contrast Media, Ivp Dye [Iodine], Lincomycin, Pseudoephedrine, Reglan [Metoclopramide Hcl], Tulnxky-Ehx-Krt Reductase Inhibitors, Tequin [Gatifloxacin], and Doxycycline MEDICATIONS SITagliptin phosphate (JANUVIA) 100 mg tablet Take 1 tablet by mouth once daily. hydrOXYzine HCl (ATARAX) 25 mg tablet Take 1 tablet by mouth every 12 hours as needed for anxiety. polyethylene glycol 3350 17 gram packet Take 1 Packet by mouth once daily. Dissolve dose in 4 - 8 ounces of liquid and take as directed. senna (SENOKOT) 8.6 mg tab Take 1 tablet by mouth two times a day. predniSONE (DELTASONE) 20 mg tablet Take 3 tablets by mouth once daily. X3d, then 2 po every day x 3d then 1 po every day x 3d, then 1/2 po every day x 4d benzonatate (TESSALON PERLE) 100 mg capsule Take 1 capsule by mouth three times a day as needed. glimepiride (AMARYL) 4 mg tablet Take 1 tablet by mouth daily with breakfast. HYDROcodone-acetaminophen (NORCO) 5-325 mg per tablet Take 1 tablet by mouth every 8 hours as needed for pain. benzocaine/benzethon Cl (DERMOPLAST ANTIBACTERIAL TOPICAL) Apply to affected area as needed. lidocaine (SALONPAS) 4 % patch Apply 1 application as directed once daily. albuterol (PROVENTIL) 2.5 mg /3 mL (0.083 %) nebulizer solution INHALE WITH 1 VIAL IN NEBULIZER EVERY SIX HOURS NEEDED rosuvastatin (CRESTOR) 10 mg tablet Take 1 tablet by mouth daily at bedtime. metFORMIN (GLUCOPHAGE) 500 mg tablet Take 2 tablets by mouth two times a day with meals. blood sugar diagnostic ([employer] ULTRA TEST) test strip Monitor blood sugar daily and as needed. montelukast (SINGULAIR) 10 mg tablet Take 1 tablet by mouth daily at bedtime. omeprazole (PRILOSEC) 40 mg capsule Take 1 c (more content not included)... Normal [facility] UA DIP, URINE (POC)on 2024 BILIRUBIN UA (POCT) Negative Negative [facility] CLARITY UA (POCT) Clear [facility] COLOR UA (POCT) Yellow [facility] GLUCOSE UA (POCT) Negative Negative mg/dL [facility] Hemoglobin Ql (U) Negative Negative [facility] KETONE UA (POCT) Negative Negative mg/dL [facility] LEUKOCYTES UA (POCT) Negative Negative [facility] NITRITE UA (POCT) Negative Negative [facility] PH UA (POCT) 5 4.5 - 8.0 [facility] Protein Ql (U) Negative Negative mg/dL [facility] SPECIFIC GRAVITY UA (POCT) 1.015 1.005 - 1.030 [facility] UROBILINOGEN UA (POCT) 0.2 Normal E.U./dL [facility] Location:[address], [id number] [place] [address] POINT OF CARE [facility] CNOVon 10-02-2024 CNOV Office Visit (FAMMAS ) ----- JANESSA BARON ([id number]) 1950 F Date Time Provider Department 10/02/24 1:10 PM KALI BACON [facility] During your visit today, we recorded the following information about you: Temperature Pulse Respiration Blood pressure 97.3 degrees 88/minute 18/minute 128/82 Weight Height 88.3 kg 1.6 m Spring Shipley LPN 10/02/2024 2:48 PM Signed Patient is in office for suture removal. Patient was also recent in [facility] from 09-25-2024 to 09-29-2024 for Pyelonephritis. In ED, vital signs stable. EKG-normal sinus rhythm. HST . Chest x-ray-no acute abnormalities WCC 15K, K3.2, COVID/influenza/RSV negative.UA suggestive of UTI. Sepsis lactate was 3.9 after which infectious workup was undertaken including blood cultures , received IV fluids and ceftriaxone. Follow-up lactic acid improved to 2.2. 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 E. coli bacteremia-urinary source 2. Urinary tract infection-urine cultures positive for E. Coli Blood and urine cultures from 09/25/2024-positive for E. coli, pansensitive except for ampicillin Patient was recommended to discontinue empagliflozin due to recurrent UTIs which is a relative contraindication for SGLT2 inhibitor. START taking these medications ciprofloxacin HCl 500 mg tablet Commonly known as: CIPRO Take 1 tablet by mouth two times a day for 9 days. hydrOXYzine HCl 25 mg tablet Commonly known as: ATARAX Take 1 tablet by mouth every 12 hours as needed for anxiety. miconazole 2 % vaginal cream Commonly known as: MONISTAT Use 1 Applicator vaginally daily at bedtime for 7 doses. polyethylene glycol 3350 17 gram packet Take 1 Packet by mouth once daily. Dissolve dose in 4 - 8 ounces of liquid and take as directed. Start taking on: September 30, 2024 senna 8.6 mg Tab Commonly known as: SENOKOT Take 1 tablet by mouth two times a day. Patient states she continues to feel tired, but feeling better. Spring Shipley LPN October 02, 2024 1:01 PM Kali Bacon MD 10/02/2024 2:48 PM Signed Subjective Janessa Baron is a 74 year old female. Patient was also recent in [facility] from 09-25-2024 to 09-29-2024 for Pyelonephritis. In ED, vital signs stable. EKG-normal sinus rhythm. HST . Chest x-ray-no acute abnormalities WCC 15K, K3.2, COVID/influenza/RSV negative.UA suggestive of UTI. Sepsis lactate was 3.9 after which infectious workup was undertaken including blood cultures , received IV fluids and ceftriaxone. Follow-up lactic acid improved to 2.2. 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 E. coli bacteremia-urinary source 2. Urinary tract infection-urine cultures positive for E. Coli Blood and urine cultures from 09/25/2024-positive for E. coli, pansensitive except for ampicillin Patient was recommended to discontinue empagliflozin due to recurrent UTIs which is a relative contraindication for SGLT2 inhibitor. Additionally she presents for suture removal from biopsy completed. Review of Systems Constitutional: Negative. HENT: Negative. Eyes: Negative. Respiratory: Negative. Cardiovascular: Negative. Gastrointestinal: Negative. Endocrine: Negative. Genitourinary: Negative. Musculoskeletal: Negative. Skin: Negative. Allergic/Immunologic: Negative. Neurological: Negative. Hematological: Negative. Psychiatric/Behavioral: Negative. PAST SURGICAL HISTORY Procedure Laterality Date BREAST BIOPSY Bilateral benign BREAST SURGERY HX CHOLECYSTECTOMY COLONOSCOPY 05/2017 COLONOSCOPY SCREENING 2019 EGD 04/2017 EGD DIAGNOSTIC 01/2023 F SALPINGO-OOPHORECTOMY Left IR RT HEART CATH 11/10/2022 PAST SURGICAL HISTORY OF left TM repair PAST SURGICAL HISTORY OF Left 12/1991 Repair of hole in left eardrum PAST SURGICAL HISTORY OF 06/03/1998 Scalp - removal of sebaceaous cyst PAST SURGICAL HISTORY OF 11/26/2022 Triple Bypass PAST SURGICAL HISTORY OF 01/25/2024 Left carotid artery stint REMV CATARACT EXTRACAP,INSERT LENS Left REMV CATARACT EXTRACAP,INSERT LENS Right TUBAL LIGATION PAST MEDICAL HISTORY Diagnosis Date Asthma Carotid stenosis Delayed emergence from general anesthesia deep anesthesia 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) 05/22/2022 Diabetes mellitus, type 2 (HCC) Hyperlipidemia Hypertension Sliding hiatal hernia FAMILY HISTORY Problem Relation Age of Onset Heart Mother Stroke Mother Emphysema Father Heart Father Heart Attack Father Colon Cancer Sist (more content not included)... Normal [facility] Basic metabolic 2000 panelon 09-29-2024 Anion gap [Moles/Vol] 15 mmol/L Normal 8-15 [facility] Comment on above: Order Comment: Speci men Type: BLOOD SPECIMEN Ordering Facility: [facility] Address: [address] [place] [address] Performed By: #### 2 4321-2 #### [facility] CLIA [id number] [address] [place] [address] [place] Calcium [Mass/Vol] 8.3 mg/dL Low 8.5-10.2 [facility] Comment on above: Order Comment: Speci men Type: BLOOD SPECIMEN Ordering Facility: [facility] Address: [address] [place] [address] Performed By: #### 2 4321-2 #### [facility] CLIA [id number] [address] [place] [address] [place] Chloride [Moles/Vol] 105 mmol/L Normal 98-107 [facility] Comment on above: Order Comment: Speci men Type: BLOOD SPECIMEN Ordering Facility: [facility] Address: [address] [place] [address] Performed By: #### 2 4321-2 #### [facility] CLIA [id number] [address] [place] [address] [place] CO2 [Moles/Vol] 18 mmol/L Low 22-30 [facility] Comment on above: Order Comment: Speci men Type: BLOOD SPECIMEN Ordering Facility: [facility] Address: [address] [place] [address] Performed By: #### 2 4321-2 #### [facility] CLIA [id number] [address] [place] [address] [place] Creatinine [Mass/Vol] 0.94 mg/dL Normal 0.58-0.96 [facility] Comment on above: Order Comment: Speci men Type: BLOOD SPECIMEN Ordering Facility: [facility] Address: [address] [place] [address] Performed By: #### 2 4321-2 #### [facility] CLIA [id number] [address] [place] [address] [place] Creatinine and Glomerular filtration rate.predicted panel (S/P/Bld) 65 mL/min/1.73m??? Normal >=60 [facility] Comment on above: Order Comment: Gadiel cisneros Type: BLOOD SPECIMEN Ordering Facility: [facility] Address: [address] [place] [address] Result Comment: Shauna mated Glomerular Filtration Rate (eGFR) is calculated using the 2020 CKD-EPI creatinine equation. This equation utilizes serum creatinine, sex, and age as parameters. The creatinine assay has traceable calibration to isotope dilution-mass spectrometry. Refer to KDIGO guidelines for clinical interpretation. In patients with unstable renal function, e.g. those with acute kidney injury, the eGFR may not accurately reflect actual GFR. Performed By: #### 2 4321-2 #### [facility] CLIA [id number] [address] [place] [address] [place] Glucose [Mass/Vol] 154 mg/dL High 74-99 [facility] Comment on above: Order Comment: Gadiel cisneros Type: BLOOD SPECIMEN Ordering Facility: [facility] Address: [address] [place] [address] Result Comment: The [place] Diabetes [employer] (ADA) provides guidance for cutoff values for fasting glucose and random glucose. The ADA defines fasting as no caloric intake for at least 8 hours. Fasting plasma glucose results between 100 to 125 mg/dL indicate increased risk for diabetes (prediabetes). Fasting plasma glucose results greater than or equal to 126 mg/dL meet the criteria for diagnosis of diabetes. In the absence of unequivocal hyperglycemia, results should be confirmed by repeat testing. In a patient with classic symptoms of hyperglycemia or hyperglycemic crisis, random plasma glucose results greater than or equal to 200 mg/dL meet the criteria for diagnosis of diabetes. Reference: Standards of Medical Care in Diabetes 2016, [place] [employer]. Diabetes Care. 2016.39(Suppl 1). Performed By: #### 2 4321-2 #### [facility] CLIA [id number] [address] [place] [address] [place] Potassium [Moles/Vol] 4.0 mmol/L Normal 3.7-5.1 [facility] Comment on above: Order Comment: Gadiel cisneros Type: BLOOD SPECIMEN Ordering Facility: [facility] Address: [address] [place] [address] Performed By: #### 2 4321-2 #### [facility] CLIA [id number] [address] [place] [address] [place] Sodium [Moles/Vol] 138 mmol/L Normal 136-144 [facility] Comment on above: Order Comment: Speci men Type: BLOOD SPECIMEN Ordering Facility: [facility] Address: [address] [place] [address] Performed By: #### 2 4321-2 #### [facility] CLIA [id number] [address] [place] [address] [place] Urea nitrogen [Mass/Vol] 20 mg/dL Normal 7-21 [facility] Comment on above: Order Comment: Speci men Type: BLOOD SPECIMEN Ordering Facility: [facility] Address: [address] [place] [address] Performed By: #### 2 4321-2 #### [facility] CLIA [id number] [address] [place] [address] [place] CBC panel Auto (Bld)on 09-29 Erythrocyte distribution width (RBC) [Ratio] 25.3 % High 11.5-15.0 [facility] Comment on above: Order Comment: Speci men Type: BLOOD SPECIMEN Ordering Facility: [facility] Address: [address] [place] [address] Performed By: #### 2 132-9, 2283-8 #### [facility] CLIA [id number] [address] [place] [address] [place] Hematocrit (Bld) [Volume fraction] 36.2 % Normal 36.0-46.0 [facility] Comment on above: Order Comment: Speci men Type: BLOOD SPECIMEN Ordering Facility: [facility] Address: [address] [place] [address] Performed By: #### 2 132-9, 2284-8 #### [facility] CLIA [id number] [address] [place] [address] [place] Hemoglobin (Bld) [Mass/Vol] 10.9 g/dL Low 11.5-15.5 [facility] Comment on above: Order Comment: Speci men Type: BLOOD SPECIMEN Ordering Facility: [facility] Address: [address] [place] [address] Performed By: #### 2 132-9, 2283-8 #### [facility] CLIA [id number] [address] [place] [address] [place] MCH (RBC) [Entitic mass] 24.1 pg Low 26.0-34.0 [facility] Comment on above: Order Comment: Speci men Type: BLOOD SPECIMEN Ordering Facility: [facility] Address: [address] [place] [address] Performed By: #### 2 132-9, 8 #### [facility] CLIA [id number] [address] [place] [address] [place] MCHC (RBC) [Mass/Vol] 30.1 g/dL Low 30.5-36.0 [facility] Comment on above: Order Comment: Speci men Type: BLOOD SPECIMEN Ordering Facility: [facility] Address: [address] [place] [address] Performed By: #### 2 132-9, 8 #### [facility] CLIA [id number] [address] [place] [address] [place] MCV (RBC) [Entitic vol] 79.9 fL Low 80.0-100.0 [facility] Comment on above: Order Comment: Speci men Type: BLOOD SPECIMEN Ordering Facility: [facility] Address: [address] [place] [address] Performed By: #### 2 132-9, 8 #### [facility] CLIA [id number] [address] [place] [address] [place] Nucleated RBC (Bld) [#/Vol] 10*3/uL Normal <0.01 [facility] Comment on above: Order Comment: Speci men Type: BLOOD SPECIMEN Ordering Facility: [facility] Address: [address] [place] [address] Performed By: #### 2 132-9, 8 #### [facility] CLIA [id number] [address] [place] [address] [place] Platelet mean volume (Bld) [Entitic vol] 9.3 fL Normal 9.0-12.7 [facility] Comment on above: Order Comment: Speci men Type: BLOOD SPECIMEN Ordering Facility: [facility] Address: [address] [place] [address] Performed By: #### 2 132-9, 8 #### [facility] CLIA [id number] [address] [place] [address] [place] Platelets (Bld) [#/Vol] 266 10*3/uL Normal 150-400 [facility] Comment on above: Order Comment: Speci men Type: BLOOD SPECIMEN Ordering Facility: [facility] Address: [address] [place] [address] Performed By: #### 2 132-9, 8 #### [facility] CLIA [id number] [address] [place] [address] [place] RBC (Bld) [#/Vol] 4.53 10*6/uL Normal 3.90-5.20 [facility] Comment on above: Order Comment: Speci men Type: BLOOD SPECIMEN Ordering Facility: [facility] Address: [address] [place] [address] Performed By: #### 2 132-9, 8 #### [facility] CLIA [id number] [address] [place] [address] [place] WBC (Bld) [#/Vol] 9.22 10*3/uL Normal 3.70-11.00 [facility] Comment on above: Order Comment: Speci men Type: BLOOD SPECIMEN Ordering Facility: [facility] Address: [address] [place] [address] Performed By: #### 2 132-9, 2284-8 #### [facility] CLIA [id number] [address] [place] [address] [place] CNDSon 09-29-2024 CNDS HNO ID: [id number] Author: LUDMILA VELAZQUEZ MD Service: General Internal Medicine Author Type: Physician Type: Discharge Summary Filed: 09/29/2024 15:05 Note Text: DISCHARGE SUMMARY PATIENT NAME: Janessa Baron ADMISSION DATE: 09/25/2024 DISCHARGE DATE: 09/29/2024 ATTENDING PHYSICIAN: Ludmila Velazquez MD Code Status: Full Code PCP: Kali Bacon MD Highest Readmission Risk Score: 19 The 30 day readmissions risk score is derived from an internally validated risk model which evaluates patient level characteristics, utilization history, medication orders and lab results up until the day of discharge. Patients with a score of 40 or above are considered highest risk for readmission. Specific patient level drivers will be listed at the bottom of the summary. TRANSITIONS OF CARE CRITICAL ISSUES: STODDARD MEDICATION CHANGES: 1. Ciprofloxacin 500 mg twice daily for 9 days 2. Miconazole 2% vaginal cream at bedtime for 7 days 3. Hydroxyzine, MiraLAX, senna as needed Follow-up with PCP on 10/02/2024 REASON FOR HOSPITALIZATION/PRINCIPAL DIAGNOSES: E. coli bacteremia and UTI HOSPITAL PROBLEMS: Principal Problem: Pyelonephritis (POA: Yes) Active Problems: Type 2 diabetes mellitus without complication, without long-term current use of insulin (HCC) (POA: Yes) Essential (primary) hypertension (POA: Yes) Hypercholesterolemia (POA: Yes) Hypomagnesemia (POA: Yes) Paroxysmal atrial fibrillation (HCC) (POA: Yes) Hypokalemia (POA: Yes) Gait abnormality (POA: Unknown) Urinary tract infection without hematuria (POA: Unknown) E coli bacteremia (POA: Unknown) REJI (acute kidney injury) (HCC) (POA: Unknown) Chronic midline low back pain (POA: Unknown) HOSPITAL COURSE: Janessa Baron is a 74 year old female h/o chronic low back pain, HTN, CAD s/p CABG x 3 (11/2022), type 2 DM, carotid artery stenosis s/p stent, fibromyalgia.Apparently her had an appointment at [facility] and she accompanied him in car. After prolonged waiting in car, when she was getting out of car, felt lightheaded at which point she was helped by her and [facility] staff. Since patient continued to feel unwell, presented to ED. In ED, vital signs stable. EKG-normal sinus rhythm. HST . Chest x-ray-no acute abnormalities WCC 15K, K3.2, COVID/influenza/RSV negative.UA suggestive of UTI. Sepsis lactate was 3.9 after which infectious workup was undertaken including blood cultures , received IV fluids and ceftriaxone. Follow-up lactic acid improved to 2.2. 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 E. coli bacteremia-urinary source 2. Urinary tract infection-urine cultures positive for E. Coli Blood and urine cultures from 09/25/2024-positive for E. coli, pansensitive except for ampicillin Symptoms significantly improved on IV ceftriaxone. E. coli sensitive to ciprofloxacin. Patient received 5 days of IV ceftriaxone in hospital,prescribed ciprofloxacin 500 mg twice daily for 9 days after discharge. There was mention of rash to gatifloxacin in her allergy list but patient said she tolerated ciprofloxacin in past. Patient was advised to watch for side effects of ciprofloxacin Sepsis lactate improved from 3.9 on admission to 1.8 with IV fluids and antibiotics. Leukocytosis resolved, 15K to 9.2K. Patient was recommended to discontinue empagliflozin due to recurrent UTIs which is a relative contraindication for SGLT2 inhibitor. Blood glucose 140-180 on glimepiride 4 mg daily. Will discharge patient on glimepiride and metformin and follow-up with PCP was already scheduled for 10/02/2024. Patient was advised to discuss with her PCP regarding alternate diabetes medications for long-term management 3. REJI: BUN increased from 21 to 35 and creatinine from 0.7 to 1.3 after which patient received IV fluids. With IV fluids, creatinine improved to 0.8. Ultrasound kidneys/bladder-no hydronephrosis. Lisinopril/hydrochlorothi azide held during REJI but resumed after discharge. 4. Vaginal itching: Denied vaginal discharge. Likely due to antibiotic treatment. Received 3 doses of fluconazole 150 mg p.o. daily and prescribed Monistat vaginal cream at discharge. 5. Anxiety: Patient was overwhelmed with anxiety associated with a hospitalization. Significant improvement noted on Atarax 25 mg . Provided prescription at discharge 6. Chronic low back pain: CT lumbar spine showed multilevel degenerative changes throughout lumbar spine with canal stenosis at L4-L5. Follow-up with spine clinic as outpatient as needed. 7. DM2: HbA1c 07/16/2024-7.2.Recommended to discontinue empagliflozin due to recurrent UTI+ Possible lactic acidosis. Blood glucose 150-200. Continued glimepiride + ? Metformin at dischar (more content not included)... Normal [facility] NURSING PROGon 09-29-2024 NURSING PROG HNO ID: [id number] Author: MIGDALIA CALZADA RN Service: Nursing Author Type: Registered Nurse Type: Nursing Progress Note Filed: 09/29/2024 15:18 Note Text: Pt discharged home with no skilled needs. Pt verbalized an understanding of all d/c instructions. PIV removed. Pt left unit via d/c transport with all belongings. Normal [facility] Basic metabolic 2000 panelon 09-28-2024 Anion gap [Moles/Vol] 13 mmol/L Normal 8-15 [facility] Comment on above: Order Comment: Speci men Type: BLOOD SPECIMEN Ordering Facility: [facility] Address: [address] [place] [address] Performed By: #### 2 4321-2 #### [facility] CLIA [id number] [address] [place], [place] [address] [address] [address] [place] Calcium [Mass/Vol] 9.1 mg/dL Normal 8.5-10.2 [facility] Comment on above: Order Comment: Speci men Type: BLOOD SPECIMEN Ordering Facility: [facility] Address: [address] [place] [address] Performed By: #### 2 4321-2 #### [facility] CLIA [id number] [address] [place] [address] [place] Chloride [Moles/Vol] 101 mmol/L Normal 98-107 [facility] Comment on above: Order Comment: Speci men Type: BLOOD SPECIMEN Ordering Facility: [facility] Address: [address] [place] [address] Performed By: #### 2 4321-2 #### [facility] CLIA [id number] [address] [place] [address] [place] CO2 [Moles/Vol] 21 mmol/L Low 22-30 [facility] Comment on above: Order Comment: Speci men Type: BLOOD SPECIMEN Ordering Facility: [facility] Address: [address] [place] [address] Performed By: #### 2 4321-2 #### [facility] CLIA [id number] [address] [place] [address] [place] Creatinine [Mass/Vol] 1.22 mg/dL High 0.58-0.96 [facility] Comment on above: Order Comment: Speci men Type: BLOOD SPECIMEN Ordering Facility: [facility] Address: [address] [place] [address] Performed By: #### 2 4321-2 #### [facility] CLIA [id number] [address] [place] [address] [place] Creatinine and Glomerular filtration rate.predicted panel (S/P/Bld) 47 mL/min/1.73m??? Low >=60 [facility] Comment on above: Order Comment: Speci men Type: BLOOD SPECIMEN Ordering Facility: [facility] Address: [address] [place] [address] Result Comment: Shauna mated Glomerular Filtration Rate (eGFR) is calculated using the 2020 CKD-EPI creatinine equation. This equation utilizes serum creatinine, sex, and age as parameters. The creatinine assay has traceable calibration to isotope dilution-mass spectrometry. Refer to KDIGO guidelines for clinical interpretation. In patients with unstable renal function, e.g. those with acute kidney injury, the eGFR may not accurately reflect actual GFR. Performed By: #### 2 4321-2 #### [facility] CLIA [id number] [address] [place] [address] [place] Glucose [Mass/Vol] 179 mg/dL High 74-99 [facility] Comment on above: Order Comment: Gadiel cisneros Type: BLOOD SPECIMEN Ordering Facility: [facility] Address: [address] [place] [address] Result Comment: The [place] Diabetes [employer] (ADA) provides guidance for cutoff values for fasting glucose and random glucose. The ADA defines fasting as no caloric intake for at least 8 hours. Fasting plasma glucose results between 100 to 125 mg/dL indicate increased risk for diabetes (prediabetes). Fasting plasma glucose results greater than or equal to 126 mg/dL meet the criteria for diagnosis of diabetes. In the absence of unequivocal hyperglycemia, results should be confirmed by repeat testing. In a patient with classic symptoms of hyperglycemia or hyperglycemic crisis, random plasma glucose results greater than or equal to 200 mg/dL meet the criteria for diagnosis of diabetes. Reference: Standards of Medical Care in Diabetes 2016, [place] [employer]. Diabetes Care. 2016.39(Suppl 1). Performed By: #### 2 4321-2 #### [facility] CLIA [id number] [address] [place] [address] [place] Potassium [Moles/Vol] 4.3 mmol/L Normal 3.7-5.1 [facility] Comment on above: Order Comment: Gadiel cisneros Type: BLOOD SPECIMEN Ordering Facility: [facility] Address: [address] [place] [address] Performed By: #### 2 4321-2 #### [facility] CLIA [id number] [address] [place] [address] [place] Sodium [Moles/Vol] 135 mmol/L Low 136-144 [facility] Comment on above: Order Comment: Gadiel cisneros Type: BLOOD SPECIMEN Ordering Facility: [facility] Address: [address] [place] [address] Performed By: #### 2 4321-2 #### [facility] CLIA [id number] [address] [place] [address] [place] Urea nitrogen [Mass/Vol] 31 mg/dL High 7-21 [facility] Comment on above: Order Comment: Speci men Type: BLOOD SPECIMEN Ordering Facility: [facility] Address: [address] [place] [address] Performed By: #### 2 4321-2 #### [facility] CLIA [id number] [address] [place] [address] [place] CBC panel Auto (Bld)on 09-28 Erythrocyte distribution width (RBC) [Ratio] 25.5 % High 11.5-15.0 [facility] Comment on above: Order Comment: Speci men Type: BLOOD SPECIMEN Ordering Facility: [facility] Address: [address] [place] [address] Performed By: #### 2 132-9, 2283-8 #### [facility] CLIA [id number] [address] [place] [address] [place] Hematocrit (Bld) [Volume fraction] 39.5 % Normal 36.0-46.0 [facility] Comment on above: Order Comment: Speci men Type: BLOOD SPECIMEN Ordering Facility: [facility] Address: [address] [place] [address] Performed By: #### 2 132-9, 8 #### [facility] CLIA [id number] [address] [place] [address] [place] Hemoglobin (Bld) [Mass/Vol] 12.1 g/dL Normal 11.5-15.5 [facility] Comment on above: Order Comment: Speci men Type: BLOOD SPECIMEN Ordering Facility: [facility] Address: [address] [place] [address] Performed By: #### 2 132-9, 2283-8 #### [facility] CLIA [id number] [address] [place] [address] [place] MCH (RBC) [Entitic mass] 24.0 pg Low 26.0-34.0 [facility] Comment on above: Order Comment: Speci men Type: BLOOD SPECIMEN Ordering Facility: [facility] Address: [address] [place] [address] Performed By: #### 2 132-9, 8 #### [facility] CLIA [id number] [address] [place] [address] [place] MCHC (RBC) [Mass/Vol] 30.6 g/dL Normal 30.5-36.0 [facility] Comment on above: Order Comment: Speci men Type: BLOOD SPECIMEN Ordering Facility: [facility] Address: [address] [place] [address] Performed By: #### 2 132-9, 2284-03 #### [facility] CLIA [id number] [address] [place] [address] [place] MCV (RBC) [Entitic vol] 78.2 fL Low 80.0-100.0 [facility] Comment on above: Order Comment: Speci men Type: BLOOD SPECIMEN Ordering Facility: [facility] Address: [address] [place] [address] Performed By: #### 2 132-9, 8 #### [facility] CLIA [id number] [address] [place] [address] [place] Nucleated RBC (Bld) [#/Vol] 10*3/uL Normal <0.01 [facility] Comment on above: Order Comment: Speci men Type: BLOOD SPECIMEN Ordering Facility: [facility] Address: [address] [place] [address] Performed By: #### 2 132-9, 8 #### [facility] CLIA [id number] [address] [place] [address] [place] Platelet mean volume (Bld) [Entitic vol] 9.0 fL Normal 9.0-12.7 [facility] Comment on above: Order Comment: Speci men Type: BLOOD SPECIMEN Ordering Facility: [facility] Address: [address] [place] [address] Performed By: #### 2 132-9, 2283-8 #### [facility] CLIA [id number] [address] [place] [address] [place] Platelets (Bld) [#/Vol] 293 10*3/uL Normal 150-400 [facility] Comment on above: Order Comment: Speci men Type: BLOOD SPECIMEN Ordering Facility: [facility] Address: [address] [place] [address] Performed By: #### 2 132-9, 2283-8 #### [facility] CLIA [id number] [address] [place] [address] [place] RBC (Bld) [#/Vol] 5.05 10*6/uL Normal 3.90-5.20 [facility] Comment on above: Order Comment: Speci men Type: BLOOD SPECIMEN Ordering Facility: [facility] Address: [address] [place] [address] Performed By: #### 2 132-9, 2283-8 #### [facility] CLIA [id number] [address] [place] [address] [place] WBC (Bld) [#/Vol] 10.20 10*3/uL Normal 3.70-11.00 [facility] Comment on above: Order Comment: Speci men Type: BLOOD SPECIMEN Ordering Facility: [facility] Address: [address] [place] [address] Performed By: #### 2 132-9, 2283-8 #### [facility] CLIA [id number] [address] [place], [place] [address] [place] Basic metabolic 2000 panelon 09-27-2024 Anion gap [Moles/Vol] 14 mmol/L Normal 8-15 [facility] Comment on above: Order Comment: Speci men Type: BLOOD SPECIMEN Ordering Facility: [facility] Address: [address] [place] [address] Performed By: #### 2 4321-2 #### [facility] CLIA [id number] [address] [place], [place] [address] [place] Calcium [Mass/Vol] 9.3 mg/dL Normal 8.5-10.2 [facility] Comment on above: Order Comment: Speci men Type: BLOOD SPECIMEN Ordering Facility: [facility] Address: [address] [place] [address] Performed By: #### 2 4321-2 #### [facility] CLIA [id number] [address] [place] [address] [place] Chloride [Moles/Vol] 96 mmol/L Low 98-107 [facility] Comment on above: Order Comment: Speci men Type: BLOOD SPECIMEN Ordering Facility: [facility] Address: [address] [place] [address] Performed By: #### 2 4321-2 #### [facility] CLIA [id number] [address] [place] [address] [place] CO2 [Moles/Vol] 23 mmol/L Normal 22-30 [facility] Comment on above: Order Comment: Speci men Type: BLOOD SPECIMEN Ordering Facility: [facility] Address: [address] [place], [place] [address] Performed By: #### 2 4321-2 #### [facility] CLIA [id number] [address] [place] [address] [place] Creatinine [Mass/Vol] 1.29 mg/dL High 0.58-0.96 [facility] Comment on above: Order Comment: Speci men Type: BLOOD SPECIMEN Ordering Facility: [facility] Address: [address] [place] [address] Performed By: #### 2 4321-2 #### [facility] CLIA [id number] [address] [place] [address] [place] Creatinine and Glomerular filtration rate.predicted panel (S/P/Bld) 44 mL/min/1.73m??? Low >=60 [facility] Comment on above: Order Comment: Gadiel cisneros Type: BLOOD SPECIMEN Ordering Facility: [facility] Address: [address] [place] [address] Result Comment: Shauna mated Glomerular Filtration Rate (eGFR) is calculated using the 2020 CKD-EPI creatinine equation. This equation utilizes serum creatinine, sex, and age as parameters. The creatinine assay has traceable calibration to isotope dilution-mass spectrometry. Refer to KDIGO guidelines for clinical interpretation. In patients with unstable renal function, e.g. those with acute kidney injury, the eGFR may not accurately reflect actual GFR. Performed By: #### 2 4321-2 #### [facility] CLIA [id number] [address] [place] [address] [place] Glucose [Mass/Vol] 151 mg/dL High 74-99 [facility] Comment on above: Order Comment: Gadiel cisneros Type: BLOOD SPECIMEN Ordering Facility: [facility] Address: [address] [place] [address] Result Comment: The [place] [employer] (ADA) provides guidance for cutoff values for fasting glucose and random glucose. The ADA defines fasting as no caloric intake for at least 8 hours. Fasting plasma glucose results between 100 to 125 mg/dL indicate increased risk for diabetes (prediabetes). Fasting plasma glucose results greater than or equal to 126 mg/dL meet the criteria for diagnosis of diabetes. In the absence of unequivocal hyperglycemia, results should be confirmed by repeat testing. In a patient with classic symptoms of hyperglycemia or hyperglycemic crisis, random plasma glucose results greater than or equal to 200 mg/dL meet the criteria for diagnosis of diabetes. Reference: Standards of Medical Care in Diabetes 2016, [place] [employer]. Diabetes Care. 2016.39(Suppl 1). Performed By: #### 2 4321-2 #### [facility] CLIA [id number] [address] [place] [address] [place] Potassium [Moles/Vol] 3.5 mmol/L Low 3.7-5.1 [facility] Comment on above: Order Comment: Speci men Type: BLOOD SPECIMEN Ordering Facility: [facility] Address: [address] [place] [address] Performed By: #### 2 4321-2 #### [facility] CLIA [id number] [address] [place] [address] [place] Sodium [Moles/Vol] 133 mmol/L Low 136-144 [facility] Comment on above: Order Comment: Speci men Type: BLOOD SPECIMEN Ordering Facility: [facility] Address: [address] [place] [address] Performed By: #### 2 4321-2 #### [facility] CLIA [id number] [address] [place] [address] [place] Urea nitrogen [Mass/Vol] 35 mg/dL High 7-21 [facility] Comment on above: Order Comment: Speci men Type: BLOOD SPECIMEN Ordering Facility: [facility] Address: [address] [place] [address] Performed By: #### 2 4321-2 #### [facility] CLIA [id number] [address] [place] [address] [place] CBC panel Auto (Bld)on 09-27 Erythrocyte distribution width (RBC) [Ratio] 25.4 % High 11.5-15.0 [facility] Comment on above: Order Comment: Speci men Type: BLOOD SPECIMEN Ordering Facility: [facility] Address: [address] [place] [address] Performed By: #### 2 132-9, 2284-8 #### [facility] CLIA [id number] [address] [place] [address] [place] Hematocrit (Bld) [Volume fraction] 37.2 % Normal 36.0-46.0 [facility] Comment on above: Order Comment: Speci men Type: BLOOD SPECIMEN Ordering Facility: [facility] Address: [address] [place] [address] Performed By: #### 2 132-9, 8 #### [facility] CLIA [id number] [address] [place] [address] [place] Hemoglobin (Bld) [Mass/Vol] 11.4 g/dL Low 11.5-15.5 [facility] Comment on above: Order Comment: Speci men Type: BLOOD SPECIMEN Ordering Facility: [facility] Address: [address] [place] [address] Performed By: #### 2 132-9, 8 #### [facility] CLIA [id number] [address] [place] [address] [place] MCH (RBC) [Entitic mass] 23.8 pg Low 26.0-34.0 [facility] Comment on above: Order Comment: Speci men Type: BLOOD SPECIMEN Ordering Facility: [facility] Address: [address] [place] [address] Performed By: #### 2 132-9, 8 #### [facility] CLIA [id number] [address] [place] [address] [place] MCHC (RBC) [Mass/Vol] 30.6 g/dL Normal 30.5-36.0 [facility] Comment on above: Order Comment: Speci men Type: BLOOD SPECIMEN Ordering Facility: [facility] Address: [address] [place] [address] Performed By: #### 2 132-9, 2283-8 #### [facility] CLIA [id number] [address] [place] [address] [place] MCV (RBC) [Entitic vol] 77.5 fL Low 80.0-100.0 [facility] Comment on above: Order Comment: Speci men Type: BLOOD SPECIMEN Ordering Facility: [facility] Address: [address] [place] [address] Performed By: #### 2 132-9, 8 #### [facility] CLIA [id number] [address] [place] [address] [place] Nucleated RBC (Bld) [#/Vol] 10*3/uL Normal <0.01 [facility] Comment on above: Order Comment: Speci men Type: BLOOD SPECIMEN Ordering Facility: [facility] Address: [address] [place] [address] Performed By: #### 2 132-9, 8 #### [facility] CLIA [id number] [address] [place] [address] [place] Platelet mean volume (Bld) [Entitic vol] 9.4 fL Normal 9.0-12.7 [facility] Comment on above: Order Comment: Speci men Type: BLOOD SPECIMEN Ordering Facility: [facility] Address: [address] [place] [address] Performed By: #### 2 132-9, 8 #### [facility] CLIA [id number] [address] [place] [address] [place] Platelets (Bld) [#/Vol] 286 10*3/uL Normal 150-400 [facility] Comment on above: Order Comment: Speci men Type: BLOOD SPECIMEN Ordering Facility: [facility] Address: [address] [place] [address] Performed By: #### 2 132-9, 8 #### [facility] CLIA [id number] [address] [place] [address] [place] RBC (Bld) [#/Vol] 4.80 10*6/uL Normal 3.90-5.20 [facility] Comment on above: Order Comment: Speci men Type: BLOOD SPECIMEN Ordering Facility: [facility] Address: [address] [place] [address] Performed By: #### 2 132-9, 2283-8 #### [facility] CLIA [id number] [address] [place], [place] [address] [place] [address] [place] WBC (Bld) [#/Vol] 12.37 10*3/uL High 3.70-11.00 [facility] Comment on above: Order Comment: Speci men Type: BLOOD SPECIMEN Ordering Facility: [facility] Address: [address] [place] [address] Performed By: #### 2 132-9, 2284-8 #### [facility] CLIA [id number] [address] [place] [address] [place] US KIDNEY/BLADDERon 09-27-19 25 US KIDNEY/BLADDER * * *Final Report* * * DATE OF EXAM: Sep 27 2024 5:20PM [facility] [place] [facility] - US KIDNEY/BLADDER / PROCEDURE REASON: Kidney failure, acute * * * * Physician Interpretation * * * * EXAMINATION: RENAL ULTRASOUND CLINICAL HISTORY: Pyelonephritis. TECHNIQUE: Sonography of the kidneys and urinary bladder was performed. Images were obtained and stored in a permanent archive. MQ: [id number] COMPARISON: CT abdomen/pelvis 09/25/2024. RESULT: Right Kidney: -Renal length: 9.6 cm -Parenchyma: Normal parenchymal echogenicity. Normal parenchymal thickness. -Collecting system: No hydronephrosis. -Calculus: No echogenic, shadowing calculus. -Lesion: None. Left Kidney: -Renal length: 12.1 cm -Parenchyma: Normal parenchymal echogenicity. Normal parenchymal thickness. -Collecting system: No hydronephrosis. -Calculus: No echogenic, shadowing calculus. -Lesion: None. Bladder: Normal sonographic appearance. IMPRESSION: Normal sonographic appearance of the kidneys and bladder. Construction Executive: PSCB Transcribe Date/Time: Sep 27 2024 6:29P Dictated by : RADHA CONTE MD This examination was interpreted and the report reviewed and electronically signed by: NASIR GONGORA MD on Sep 27 2024 8:51PM EST [id number] [facility] CASE MGT INIT ASSESon 2024 CASE MGT BRANDON ROTHMAN HNO ID: [id number] Author: HI WALDRON LISW Service: Emergency Medicine Author Type: Cloth Desizing Range Tender Type: Care Mgt Initial Assessment Filed: 09/26/2024 11:37 Note Text: CARE MANAGEMENT: ASSESSMENT AND DISCHARGE PLAN SERVICE DATE: September 26, 2024 SERVICE TIME: 11:26 AM PCP: Kali Bacon MD Primary Contact: Extended Emergency Contact Information Primary Emergency Contact: rody baron Address: [address] [place], [place] [id number] [place] [address] Mobile Relation: Spouse Secondary Emergency Contact: Latrice Baron Address: [address] [place], [place] [id number] [place] [address] Mobile Relation: Daughter Admission Status: Inpatient Insurance Provider: [employer] MEDICARE HMO Discharge Planning requested by: Per Department Practice Potential Transition Plans Home Advance Directives Current Advance Directive: Health Care Power of Dairy Feed Worker In Chart: Yes Up To Date and Valid: Yes Current Living Arrangements and Support Lives with: Spouse/significant other Type of Residence: Private Residence (House) Does the patient have to climb stairs at home?: Yes (Pt says that she has one step to get into the house and then another step to get into the kitchen) Support: Spouse/significant other How do you manage to accomplish the following: Independent: Ambulation, Bathe/Shower, Dress, Meals/Meal Prep, Going to the bathroom, Medication Management, Transportation to appointments/community Current Services/Equipment Current Post-Acute Service(s): DME Current DME Type: Grab bars, Nebulizer, Rolling walker, Glucometer device and supplies Discharge Planning Patient Goal(s): Be able to go home, General wellness [place] of Choice Explained: [place] of Choice Given: No Reason Not Given: No placements necessary Are you interested in bedside delivery of your medications? No Discharge Planning Participant(s): Patient Patient/Family Comments: Caregiver Assessment: Caregiver is ready, willing and able to meet the patient's needs as recommended by the inter-professional team: No Caregiver needed Transport at Discharge: Transportation Arrangements: Car Needs Prior to Discharge: Needs Prior to Discharge: None Post-Acute Discharge Plan: CM met with pt at bedside and introduced self and role. Pt reports she is independent in all ADLs and primarily uses a walker to ambulate. She says that she still drives herself to and from her appointments or her does. Pt says that her will drive her home upon discharge. Pt denies any needs or concerns at this time. There are no skilled needs anticipated at this time. SIGNATURE: TEJINDER Alba PATIENT NAME: Janessa Baron DATE: September 26, 2024 TIME: 11:26 AM Normal [facility] CONSULTon 09-26-2024 CONSULT HNO ID: [id number] Author: RAS PITT MD Service: Geriatrics Author Type: Physician Type: Consults Filed: 09/26/2024 17:26 Note Text: Geriatric Medicine Service: Emergency Department Evaluation Consultation requested by the Emergency Department, who will receive Geriatric Medicine recommendations by way of the electronic medical record HISTORY OF PRESENT ILLNESS - This is a 74 year old female with a history of HTN, HLD, a fib not on AC, CAD, asthma, T2DM who presents to the ED on 09/25 after a syncopal episode and found to have gram negative sepsis likely urinary source. Patient was assisting her to get to an outpatient appointment when she had a moment of weakness while using her walker. Pt states she never lost consciousness but slowly slid to the ground in the parking garage. Has not had these sorts of episodes before. Denies recent fever, chills but had some vomiting at home that is otherwise unexplained. Workup in the ED patient was vitally stable. Found to have elevated Cr and leukocytosis to 1. Lactate 2.2 on admission. CTAP WO contrast completed with no acute fidings. 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 Blood cultures x 2 drawn with GNB x 2. UA with evidence of UTI. Patient was started on CTX and was admitted to medicine for further management. Concerns from Patient - Infection, back pain Concerns from Family - Weakness Concerns from Emergency Department - Infection Social History/ Social Support: What is your living situation?: Spouse If you are living at home, do you have any assistance?: Yes Previous Admissions: Any admissions or ED visits in the last six months?: No Number of admissions or ED visits in the last six months: 0 Mobility: Number of falls in the past 12 months: 1 Amount of physical activity: Moderate Medications: Number of medications: greater than 5 medications Patient is compliant with medications?: Yes Functional Evaluation: (I= independent, A= assistance, D= dependent) ? B-ADLs: Bathing: I, Dressing: I, Toileting: I, Transferring: I, Continence: I, Feeding: I (Noe Index): 6 I-ADLs: Ability to use phone: I, Shopping: I, Cooking: I, Housekeeping: I, Laundry: I, Transportation: I, Medications: I, Handle Finances: I (Gerry scale): 8 Cognitive Status: Patient is able to state date, month, and year?: Yes Mini-Cog Score: 5/5 -Three-item recall score: 3/3 -Clock drawing score: 2/2 The patient's allergies, current medications, past medical history, past surgical history, social history, and family history have been reviewed with the patient and have been updated as appropriate. Please see the relevant sections in [facility] EHR for appropriate details. ALLERGIES Allergen Reactions Metoclopramide Unknown Sulfamethoxazole-Tr* Unknown Morphine Unknown Acetaminophen Unknown Augmentin [Amoxicil* Rash Cefzil [Cefprozil] Rash Dayquil Allergy 12-* Hives Dextromethorphan Hives Doxylamine Hives Erythromycin Rash Iodinated Contrast * Hives Ivp Dye [Iodine] Unknown knot on head Lincomycin Rash Pseudoephedrine Hives Reglan [Metoclopram* Intolerance Uhwibsc-Not-Vxa Red* Unknown Other reaction(s): Other Tequin [Gatifloxaci* Rash Doxycycline Unknown, Vomiting Current Facility-Administered Medications Medication Dose Route Frequency insulin lispro injection (rapid acting) (HumaLOG) SUBCUTANEOUS w MEALS ceFEPime iv piggyback 2 g in D5W 50 mL (MAXIPIME) 2 g INTRAVENOUS q 12 H sodium chloride 0.9 % (flush) 2-10 mL (BD POSIFLUSH) 2-10 mL INTRAVENOUS DIRECTED PRN And perflutren lipid microspheres 1.1 mg/mL 1.3 mL injection (DEFINITY) 1.3 mL INTRAVENOUS DIRECTED PRN oxyCODONE IR 5 mg tab(s) (ROXICODONE) 5 mg ORAL q 4 H PRN NaCl 0.9% iv flush bag 20 mL INTRAVENOUS PRN empagliflozin 10 mg tab(s) (JARDIANCE) 10 mg ORAL DAILY WITH BREAKFAST glimepiride 4 mg tab(s) (AMARYL) 4 mg ORAL DAILY WITH BREAKFAST montelukast 10 mg tab(s) (SINGULAIR) 10 mg ORAL AT BEDTIME pantoprazole DR 40 mg tab(s) (PROTONIX) 40 mg ORAL BID AC (0600/1600) rosuvastatin 10 mg tab(s) (CRESTOR) 10 mg ORAL AT BEDTIME aspirin, enteric coated 81 mg tab(s) 81 mg ORAL DAILY lidocaine 4 % 1 Patch (SALONPAS) 1 Patch TRANSDERMAL DAILY dextrose 15 gram/32 mL 15 g (TRUEPLUS) 15 g ORAL PRN Or glucagon 1 mg injection 1 mg INTRAMUSCULAR PRN Or dextrose 10% iv bolus 12.5 g INTRAVENOUS PRN lidocaine patch - REMOVE OTHER DAILY And lidocaine - VERIFY PATCH OTHER q 8 H melatonin 6 mg tab(s) 6 mg ORAL DAILY (8 PM) Current Outpatient Medications Medication Sig predniSONE (DELTASONE) 20 mg tablet Take 3 tablets by mouth once daily. X3d, then 2 po every day x 3d then 1 po every day x 3d, then 1/2 po every day x 4d benzonatate (TESSALON PERLE) 100 mg capsule Take 1 capsule by mouth three times a day as needed. glimepiride (AMARYL) 4 mg tablet Take 1 tablet by mouth daily with breakfast. HY (more content not included)... Normal [facility] CT LUMBAR SPINE WO IVCONon 0 09-26-2024 CT LUMBAR SPINE WO IVCON * * *Final Report* * * DATE OF EXAM: Sep 26 2024 7:33AM [facility] 0508 - CT LUMBAR SPINE WO IVCON / PROCEDURE REASON: lumbar pain, BLE weakness * * * * Physician Interpretation * * * * EXAMINATION: CT LUMBAR SPINE WO IVCON CLINICAL HISTORY: lumbar pain, BLE weakness TECHNIQUE: Spiral, high resolution axial unenhanced images were obtained from the thoracolumbar junction to the sacrum with sagittal and coronal planar reconstructions. MQ: [id number] CT Radiation dose: Integrated Dose-Length Product (DLP) for this visit = 758 mGy*cm. CT Dose Reduction Employed: Automated exposure control (AEC) COMPARISON: CT abdomen and pelvis performed one day prior RESULT: Counting reference: Lumbosacral junction. For the purposes of this report, L4-5 is considered the level of the iliac crest and assume there are 5 lumbar-type vertebrae. Anatomic variant: None. Deflector Operator (topogram) images: No additional findings. Alignment: Mild diffuse levocurvature throughout the lumbar spine. Mild degenerative anterolisthesis of L4 on L5. Bone marrow /fracture: No evidence of acute fracture or traumatic malalignment. No aggressive/destructive osseous lesions are identified. Diffuse osteopenia. Paraspinal soft tissues: The paraspinal soft tissues planes are maintained. Lower thoracic spine: The visualized lower thoracic bony canal and foramina are patent. L1-L2: Degenerative disc and facet disease without evidence of substantial canal or foraminal stenosis. L2-L3: Mild degenerative disc and facet disease without evidence of substantial canal or foraminal stenosis. L3-L4: Mild degenerative disc disease as well as moderate right and mild left degenerative facet disease and ligamentum flavum thickening with likely mild to moderate canal stenosis and no evidence of foraminal stenosis. L4-L5: Mild to moderate degenerative disc disease with small posterior broad-based disc bulge, mild degenerative anterolisthesis of L4 on L5, as well as moderate to advanced bilateral degenerative facet hypertrophy and ligamentum flavum thickening resulting in advanced canal stenosis and likely moderate bilateral foraminal stenosis. L5-S1: Mild to moderate degenerative disc disease with posterior broad-based disc bulge and likely superimposed left lateral recess disc protrusion combined with moderate to advanced bilateral degenerative facet hypertrophy and ligamentum flavum thickening resulting in likely mild to moderate left foraminal stenosis as well as mild narrowing of the left lateral recess. No substantial central stenosis. Sacrum and iliac wings: Degenerative changes are present in the bilateral sacroiliac joints. Additional comments: Calcific atherosclerosis of the abdominal aorta and major branch vessels. Colonic diverticulosis. IMPRESSION: Multilevel degenerative changes are present throughout the lumbar spine with canal stenosis most pronounced and advanced at L4-L5 as well as at least moderate foraminal stenosis bilaterally at this level. No evidence of acute fracture or traumatic malalignment involving the lumbar spine. Anatomic Lumbar Variant: None. L4-5 is considered the level of the iliac crest and assume there are 5 lumbar-type vertebrae. Construction Executive: LOUIS Transcribe Date/Time: Sep 26 2024 7:36A Dictated by : COLIN DACOSTA MD This examination was interpreted and the report reviewed and electronically signed by: COLIN DACOSTA MD on Sep 26 2024 7:41AM EST [id number] Normal [facility] ECHOon 09-26-2024 Echocardiography Echocardiography Rep ort: Transthoracic Echo [facility] ER Date of service: 09/26/2024 9:24:54 AM PLANNER Ordering physician: AMBAR DAVIDSON Indication: Syncope Technologist: Roselyn Denny Interpreting physician: Bandar Cantrell MD PATIENT: Name: MRS. JANESSA BARON : 1950 Age: 74 years Gender: F History of hypertension, diabetes mellitus, arrhythmia and syncope. Primary rhythm: sinus. Height: 157.50 cm BSA: 1.97 m Weight: 88.90 kg BMI: 35.8 kg/m Heart rate 83 bpm Blood pressure 147/65 mmHg Technically difficult exam due to body habitus and suboptimal positioning. Color Doppler was utilized to interrogate the cardiac valves assessed and spectral Doppler was utilized to determine the flow velocities and pressure gradients reported in this exam. MEASUREMENTS: Value Indexed Normal Max aortic dimension 3.7 cm Ao < 3.8 Left atrial volume 49 ml (biplane A-L) 25 ml/m Tha <= 34 LV ID (diastole) 3.9 cm (2D) 1.96 cm/m LV ID (systole) 2.7 cm (2D) 1.38 cm/m IVS, leaflet tips 1.4 cm (2D) Posterior wall thickness 1.3 cm (2D) Left ventricular mass 188 g (2D) 95 g/m LV stroke volume 35 ml (2D 4-ch.) LV end diastolic volume 60 ml (2D 4-ch.) 30.2 ml/m 29<=EDVi<62 LV end systolic volume 25 ml (2D 4-ch.) 12.7 ml/m Ejection Fraction 58 % (2D 4-ch.) EF > 54 FINDINGS: LEFT VENTRICLE The left ventricle is normal in size. There is mild concentric left ventricular hypertrophy. Left ventricular systolic function is normal globally. Normal left ventricular diastolic function. Mitral annular lateral E/e': 7.0. Mitral annular septal E/e': 11.1. Wall Motion: All scored segments are normal. RIGHT VENTRICLE The right ventricle is normal in size. Right ventricular systolic function is normal globally. RV systolic tissue Doppler velocity is 11.0 cm/s. Tricuspid annular displacement is 1.6 cm. Estimated right ventricular systolic pressure is not reported due to an insufficient tricuspid regurgitation signal. Estimated right atrial pressure is 8 mmHg based on IVC assessment. LEFT ATRIUM The left atrial cavity is normal in size. Pulmonary Veins: The pulmonary venous pattern showed normal systolic flow. RIGHT ATRIUM The right atrial cavity is normal in size. Inferior Vena Cava: The inferior vena cava appears normal measuring 1.4 cm. The vessel decreases less than 50 percent with inspiration. MITRAL VALVE There is trace mitral valve regurgitation. There is mild thickening of the anterior mitral leaflet at the body. The pressure half time is 72 msec. The peak mitral E/A ratio is 0.70. The average mitral E/e' ratio is 9.1. The mitral flow deceleration time is 250 msec. TRICUSPID VALVE There is trace tricuspid valve regurgitation. There is no thickening. The hepatic venous pattern showed normal systolic flow. AORTIC VALVE There is no aortic valve regurgitation. There is no thickening. PULMONIC VALVE The pulmonic valve was not seen or not interrogated. There is trace pulmonic valve regurgitation. AORTA The visualized aorta is normal in size. Measurements - Sinus: 3.2 cm. Mid ascending aorta 3.7 cm. Mid arch 3.5 cm. PULMONARY ARTERIES The pulmonary arteries are unseen or not interrogated. PERICARDIUM There is no pericardial effusion. There is an epicardial fat pad. CONCLUSIONS: - Technically difficult exam due to body habitus and suboptimal positioning. - Exam indication: Syncope - The left ventricle is normal in size. There is mild concentric left ventricular hypertrophy. Left ventricular systolic function is normal. EF = 58 5% (2D 4-ch.) Normal left ventricular diastolic function. - The right ventricle is normal in size. Right ventricular systolic function is normal. Grossly normal RV size and function. - AV leaflet morphology not well visualized. No significant stenosis or regurgitation by doppler interrogation. - Estimated right ventricular systolic pressure is not reported due to an insufficient tricuspid regurgitation signal. Estimated right atrial pressure is 8 mmHg based on IVC assessment. - There are no significant valvular abnormalities appreciated on today's exam. - The patient has not had a prior CC echocardiographic exam for comparison. * * * Final * * * [facility] : [id number] Normal [facility] ED NOTEon 09-26-2024 ED NOTE HNO ID: [id number] Author: OSKAR LOMBARDO LPN Service: Nursing Author Type: LICENSED NURSE Type: ED Notes Filed: 09/26/2024 03:09 Note Text: Pt discovered naked and screaming in room by BEER Cortez. When asked why she was naked and screaming, pt stated I'm hot and I can't get your attention any other way. Pt was reminded again of the call light functions. DARON Fernandez MD notified. Normal [facility] ED NOTE HNO ID: [id number] Author: OSKAR LOMBARDO LPN Service: Nursing Author Type: LICENSED NURSE Type: ED Notes Filed: 09/26/2024 04:58 Note Text: Pt beginning to moan loud enough that she can be heard at the nurses station. Pt has been educated repeatedly on the appropriate use of call light. Pt continues to speak in child-like manner, referred to her feet as footsie tootsies. Normal [facility] ED PROV NOTEon 09-26-2024 ED PROV NOTE HNO ID: [id number] Author: ROSIO FERNANDEZ MD Service: ? Author Type: Physician Type: ED Provider Notes Filed: 09/26/2024 04:23 Note Text: ED CONTINUATION OF CARE NOTE Code Status: Full Code Assumed care from: Dr Nugent Presentation / Findings / Interventions / Plan / Items to Follow Up: syncope, flank pain, pyelo Patient placed in CDU for pyelonephritis. Given IV Rocephin. 04:10 am - notified of critical lab result, preliminary 1/2 blood cultures positive for gram-negative bacilli. Discussed with ED pharmacist, and patient received Rocephin approximately 12 hours ago which is adequate antibiotic coverage. Medical Decision Making Discussion with another provider: Dr Mccormick Spoke w/ Med QB who accepts pt for admission. Awaiting bed assignment and transfer to floor. SIGNATURE: Rosio Fernandez MD PATIENT NAME: Janessa Baron DATE: September 26, 2024 TIME: 4:12 AM PAGER/CONTACT #: ROSIO FERNANDEZ 09/26/24 0423 Normal [facility] HISTORY PHYSICALon HISTORY PHYSICAL HNO ID: [id number] Author: AMBAR DAVIDSON MD Service: General Internal Medicine Author Type: Physician Type: H&P Filed: 09/26/2024 06:21 Note Text: DEPARTMENT OF HOSPITAL MEDICINE HISTORY AND PHYSICAL EXAM SERVICE DATE: 09/26/2024 SERVICE TIME: 5:07 AM Primary Care Physician: Kali Bacon MD NIGHT AND WEEKEND COVERAGE: [facility] COVERAGE: Days: [phone], please page listed attending provider for patient issues. Nights: [phone], please page Team listed as covering under treatment team Subjective CHIEF COMPLAINT: fall/syncopal episode HPI: This is a 74 year old female with a history of HTN, HLD, a fib not on AC, CAD, asthma, T2DM who presents to the ED on 09/25 after a syncopal episode. Patient was assisting her to get to an outpatient appointment when she had a moment of weakness while using her walker. Pt states she never lost consciousness but slowly slid to the ground in the parking garage. Has not had these sorts of episodes before. Denies recent fever, chills but had some vomiting at home that is otherwise unexplained. Denies dysuria, abd pain. Mostly c/o chronic lumbar back pain and R sided hip pain. Patient states she started jardiance about one month ago. In the ED: - VSS, afebrile - CMP significant for Cr 1.01 (baseline 0.7-08), K 3.2 (repleted) - CBC significant for WBC 15.21 (79% neutrophils) - lactate 2.2 -> 1.8 - hsT 14 -> 16 -> 17 - EKG reviewed personally, SR with poor R wave progression - imaging findings include CXR without acute findings, CT A/P performed without contrast (no acute findings noted), CT head with small remote R PICA infarct but otherwise no acute findings - antibiotics ceftriaxone 1 g x1, blood cultures x2 drawn and positive with GNB x2 - given NS bolus 500+500, tramadol 50 mg x3, Kcl 40 mEq PAST MEDICAL HISTORY Diagnosis Date Asthma Carotid stenosis Delayed emergence from general anesthesia deep anesthesia 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) 05/22/2022 Diabetes mellitus, type 2 (HCC) Hyperlipidemia Hypertension Sliding hiatal hernia PAST SURGICAL HISTORY Procedure Laterality Date BREAST BIOPSY Bilateral benign BREAST SURGERY HX CHOLECYSTECTOMY COLONOSCOPY 05/2017 COLONOSCOPY SCREENING 2019 EGD 04/2017 EGD DIAGNOSTIC 01/2023 F SALPINGO-OOPHORECTOMY Left IR RT HEART CATH 11/10/2022 PAST SURGICAL HISTORY OF left TM repair PAST SURGICAL HISTORY OF Left 12/1991 Repair of hole in left eardrum PAST SURGICAL HISTORY OF 06/03/1998 Scalp - removal of sebaceaous cyst PAST SURGICAL HISTORY OF 11/26/2022 Triple Bypass PAST SURGICAL HISTORY OF 01/25/2024 Left carotid artery stint REMV CATARACT EXTRACAP,INSERT LENS Left REMV CATARACT EXTRACAP,INSERT LENS Right TUBAL LIGATION FAMILY HISTORY Problem Relation Age of Onset Heart Mother Stroke Mother Emphysema Father Heart Father Heart Attack Father Colon Cancer Sister 67 Diabetes Sister Diabetes Sister Heart Sister Thyroid Cancer Brother Social History Tobacco Use Smoking status: Never Smokeless tobacco: Never Vaping Use Vaping status: Never Used Substance Use Topics Alcohol use: Not Currently Drug use: Not Currently PRIOR TO ADMISSION MEDICATIONS: Prior to Admission Medications Prescriptions Last Dose Informant Patient Reported? Taking? HYDROcodone-acetaminophen (NORCO) 5-325 mg per tablet Yes No Sig: Take 1 tablet by mouth every 8 hours as needed for pain. NYSTOP powder Yes No Sig: APPLY TO THE AFFECTED AREA(S) THREE TIMES DAILY albuterol (PROVENTIL) 2.5 mg /3 mL (0.083 %) nebulizer solution No No Sig: INHALE WITH 1 VIAL IN NEBULIZER EVERY SIX HOURS NEEDED aspirin, enteric coated (ASPIRIN, ENTERIC COATED) 81 mg EC tablet Yes No Sig: Take 81 mg by mouth once daily. benzocaine/benzethon Cl (DERMOPLAST ANTIBACTERIAL TOPICAL) Yes No Sig: Apply to affected area as needed. benzonatate (TESSALON PERLE) 100 mg capsule No No Sig: Take 1 capsule by mouth three times a day as needed. blood sugar diagnostic (ONETOUCH ULTRA TEST) test strip No No Si Strip before meals and at bedtime. Use as instructed blood sugar diagnostic (ONETOUCH ULTRA TEST) test strip No No Sig: Monitor blood sugar daily and as needed. budesonide (PULMICORT) 0.5 mg/2 mL nebulizer solution Yes No Sig: mix 2 ampules with saline and apply twice daily cetirizine HCl (ZYRTEC ORAL) Yes No Sig: Take 1 tablet by mouth once daily. diclofenac (VOLTAREN) 1 % topical gel Yes No Sig: Apply to affected area four times daily. empagliflozin (JARDIANCE) 10 mg tablet No No Sig: Take 1 tablet by mouth daily with breakfast. gel base no.41, bulk, (HYDROGEL) gel No No Si Dose once daily. glimepiride (AMARYL) 4 mg tablet No No Sig: Take 1 tablet by mouth daily with breakfast. ketoconazole (NIZORAL) 2 % cream Yes No Sig: Apply to affected area once daily for 10 days. lancets (ONE TOUCH DELICA) 33 gauge No No (more content not included)... Normal [facility] NURSING PROGon 09-26-2024 NURSING PROG HNO ID: [id number] Author: FLORES MELENDREZ RN Service: Nursing Author Type: Registered Nurse Type: Nursing Progress Note Filed: 09/26/2024 18:23 Note Text: Transfer Note: PATIENT NAME: Janessa Baron Patient Location: Room: Patient transferred into room/unit in stable condition. Actions taken: Patient belongings with patient. Pt oriented to room and call light, verbalizes understanding. Normal [facility] Bacteria Bld Culton 09-25-19 25 Bacteria identified Cx [facility] (Bld) ORGANISM ID: 1 Escherichia coli GRAM STAIN: Gram negative bacilli ORGANISM ID: 1 (ESCHERICHIA COLI) ANTIBIOTIC INTERPRETATION OTTONIEL STATUS REFERENCE RANGE Ampicillin R >16 F Susceptible <=8 , Intermediate >8 , Resistant >16 Cefazolin S 2 F Susceptible <=2 , Intermediate >2 , Resistant >=8 Ceftriaxone S <=1 F Susceptible <=1 , Intermediate >1 , Resistant >=4 Cefepime S <=0.5 F Susceptible <=2 , Susceptible-Dose Dependent >2 , Resistant >=16 Ertapenem S <=0.25 F Susceptible <=0.5 , Intermediate >.5 , Resistant >1 Meropenem S <=0.5 F Susceptible <=1 , Intermediate >1 , Resistant >2 Amoxicillin Clav S 8 F Ampicillin/Sulbact I 16 F Piperacillin/Tazobac S <=2 F Gentamicin S <=2 F Susceptible <=2 , Intermediate >2 , Resistant >=8 Tobramycin S <=2 F Susceptible <4 , Intermediate >=4 , Resistant >=8 Trimeth sulfameth S <=0.5 F Ciprofloxacin S <=0.25 F Susceptible <0.5 , Intermediate >=.5 , Resistant >=1 Abnormal [facility] Comment on above: Performed By: #### I DBCGN, [id number] ####[facility] [id number] [place] [address] [place] Bacteria identified Cx Nom (Bld) ORGANISM ID: 1 Escherichia coli Refer to specimen collected on 09/25/2024 1651 ([id number]) GRAM STAIN: Gram negative bacilli Abnormal [facility] Comment on above: Performed By: #### 6 00-7 ####[facility] [id number] [place] [address] [place] Bacteria Ur Culton Bacteria identified Cx Nom (U) ORGANISM ID: 1 >=100,000 CFU/ml Escherichia coli ORGANISM ID: 1 (ESCHERICHIA COLI) ANTIBIOTIC INTERPRETATION OTTONIEL STATUS REFERENCE RANGE Ampicillin R >=32 F Susceptible <=8 , Intermediate >8 , Resistant >16 Cefazolin S <=4 F Susceptible 0-16 , Intermediate <0 or >16 , Resistant >16 For uncomplicated urinary tract infections, cefazolin results can be used to predict susceptibility or resistance to cephalexin. Ceftriaxone S <=1 F Susceptible <=1 , Intermediate >1 , Resistant >=4 Cefepime S <=1 F Susceptible <=2 , Susceptible-Dose Dependent >2 , Resistant >=16 Ertapenem S <=0.5 F Susceptible <=0.5 , Intermediate >.5 , Resistant >1 Meropenem S <=0.25 F Susceptible <=1 , Intermediate >1 , Resistant >2 Ampicillin/Sulbact I 16 F Susceptible <=8 , Intermediate >8 , Resistant >16 Piperacillin/Tazobac S <=4 F Susceptible <16 , Susceptible-Dose Dependent >=16 , Resistant >=32 Gentamicin S <=1 F Susceptible <=2 , Intermediate >2 , Resistant >=8 Tobramycin S <=1 F Susceptible <4 , Intermediate >=4 , Resistant >=8 Trimeth sulfameth S <=20 F Susceptible <=40 , Resistant >40 Ciprofloxacin S <=0.25 F Susceptible <0.5 , Intermediate >=.5 , Resistant >=1 Nitrofurantoin S <=16 F Susceptible <=32 , Intermediate >32 , Resistant >64 Abnormal [facility] Comment on above: Performed By: #### 2 4321-2 #### [facility] CLIA [id number] [address] [place] [address] [place] Basic metabolic 2000 panelon 09-25-2024 Anion gap [Moles/Vol] 13 mmol/L Normal 8-15 [facility] Comment on above: Order Comment: Speci men Type: BLOOD SPECIMEN Ordering Facility: [facility] Address: [address] [place] [address] Performed By: #### 2 4321-2 #### [facility] CLIA [id number] [address] [place] [address] [place] Calcium [Mass/Vol] 8.9 mg/dL Normal 8.5-10.2 [facility] Comment on above: Order Comment: Speci men Type: BLOOD SPECIMEN Ordering Facility: [facility] Address: [address] [place] [address] Performed By: #### 2 4321-2 #### [facility] CLIA [id number] [address] [place] [address] [place] Chloride [Moles/Vol] 97 mmol/L Low 98-107 [facility] Comment on above: Order Comment: Speci men Type: BLOOD SPECIMEN Ordering Facility: [facility] Address: [address] [place] [address] Performed By: #### 2 4321-2 #### [facility] CLIA [id number] [address] [place] [address] [place] CO2 [Moles/Vol] 26 mmol/L Normal 22-30 [facility] Comment on above: Order Comment: Speci men Type: BLOOD SPECIMEN Ordering Facility: [facility] Address: [address] [place] [address] Performed By: #### 2 4321-2 #### [facility] CLIA [id number] [address] [place] [address] [place] Creatinine [Mass/Vol] 1.01 mg/dL High 0.58-0.96 [facility] Comment on above: Order Comment: Speci men Type: BLOOD SPECIMEN Ordering Facility: [facility] Address: [address] [place] [address] Performed By: #### 2 4321-2 #### [facility] CLIA [id number] [address] [place] [address] [place] Creatinine and Glomerular filtration rate.predicted panel (S/P/Bld) 59 mL/min/1.73m??? Low >=60 [facility] Comment on above: Order Comment: Gadiel cisneros Type: BLOOD SPECIMEN Ordering Facility: [facility] Address: [address] [place] [address] Result Comment: Shauna mated Glomerular Filtration Rate (eGFR) is calculated using the 2020 CKD-EPI creatinine equation. This equation utilizes serum creatinine, sex, and age as parameters. The creatinine assay has traceable calibration to isotope dilution-mass spectrometry. Refer to KDIGO guidelines for clinical interpretation. In patients with unstable renal function, e.g. those with acute kidney injury, the eGFR may not accurately reflect actual GFR. Performed By: #### 2 4321-2 #### [facility] CLIA [id number] [address] [place] [address] [place] Glucose [Mass/Vol] 130 mg/dL High 74-99 [facility] Comment on above: Order Comment: Gadiel cisneros Type: BLOOD SPECIMEN Ordering Facility: [facility] Address: [address] [place] [address] Result Comment: The [place] Diabetes [employer] (ADA) provides guidance for cutoff values for fasting glucose and random glucose. The ADA defines fasting as no caloric intake for at least 8 hours. Fasting plasma glucose results between 100 to 125 mg/dL indicate increased risk for diabetes (prediabetes). Fasting plasma glucose results greater than or equal to 126 mg/dL meet the criteria for diagnosis of diabetes. In the absence of unequivocal hyperglycemia, results should be confirmed by repeat testing. In a patient with classic symptoms of hyperglycemia or hyperglycemic crisis, random plasma glucose results greater than or equal to 200 mg/dL meet the criteria for diagnosis of diabetes. Reference: Standards of Medical Care in Diabetes 2016, [place] [employer]. Diabetes Care. 2016.39(Suppl 1). Performed By: #### 2 4321-2 #### [facility] CLIA [id number] [address] [place] [address] [place] Potassium [Moles/Vol] 3.2 mmol/L Low 3.7-5.1 [facility] Comment on above: Order Comment: Speci men Type: BLOOD SPECIMEN Ordering Facility: [facility] Address: [address] [place] [address] Performed By: #### 2 4321-2 #### [facility] CLIA [id number] [address] [place] [address] [place] Sodium [Moles/Vol] 136 mmol/L Normal 136-144 [facility] Comment on above: Order Comment: Speci men Type: BLOOD SPECIMEN Ordering Facility: [facility] Address: [address] [place] [address] Performed By: #### 2 4321-2 #### [facility] CLIA [id number] [address] [place] [address] [place] Urea nitrogen [Mass/Vol] 30 mg/dL High 7-21 [facility] Comment on above: Order Comment: Speci men Type: BLOOD SPECIMEN Ordering Facility: [facility] Address: [address] [place] [address] Performed By: #### 2 4321-2 #### [facility] CLIA [id number] [address] [place] [address] [place] CBC W Auto Differential pane l (Bld)on 09-25-2024 Basophils (Bld) [#/Vol] 10*3/uL Normal <0.11 [facility] Comment on above: Order Comment: Speci men Type: BLOOD SPECIMEN Ordering Facility: [facility] Address: [address] [place] [address] Performed By: #### 2 132-9, 2284-8 #### [facility] CLIA [id number] [address] [place] [address] [place] Basophils/100 WBC (Bld) 0.1 % Normal [facility] Comment on above: Order Comment: Speci men Type: BLOOD SPECIMEN Ordering Facility: [facility] Address: [address] [place] [address] Performed By: #### 2 132-9, 8 #### [facility] CLIA [id number] [address] [place] [address] [place] Differential cell count method Nom (Bld) Auto Normal [facility] Comment on above: Order Comment: Speci men Type: BLOOD SPECIMEN Ordering Facility: [facility] Address: [address] [place] [address] Performed By: #### 2 132-9, 2284-03 #### [facility] CLIA [id number] [address] [place] [address] [place] Eosinophils (Bld) [#/Vol] 10*3/uL Normal <0.46 [facility] Comment on above: Order Comment: Speci men Type: BLOOD SPECIMEN Ordering Facility: [facility] Address: [address] [place] [address] Performed By: #### 2 132-9, 2284-03 #### [facility] CLIA [id number] [address] [place] [address] [place] Eosinophils/100 WBC (Bld) 0.1 % Normal [facility] Comment on above: Order Comment: Speci men Type: BLOOD SPECIMEN Ordering Facility: [facility] Address: [address] [place] [address] Performed By: #### 2 132-9, 8 #### [facility] CLIA [id number] [address] [place] [address] [place] Erythrocyte distribution width (RBC) [Ratio] 25.5 % High 11.5-15.0 [facility] Comment on above: Order Comment: Speci men Type: BLOOD SPECIMEN Ordering Facility: [facility] Address: [address] [place] [address] Performed By: #### 2 132-9, 8 #### [facility] CLIA [id number] [address] [place] [address] [place] Hematocrit (Bld) [Volume fraction] 38.8 % Normal 36.0-46.0 [facility] Comment on above: Order Comment: Speci men Type: BLOOD SPECIMEN Ordering Facility: [facility] Address: [address] [place] [address] Performed By: #### 2 132-9, 8 #### [facility] CLIA [id number] [address] [place] [address] [place] Hemoglobin (Bld) [Mass/Vol] 11.9 g/dL Normal 11.5-15.5 [facility] Comment on above: Order Comment: Speci men Type: BLOOD SPECIMEN Ordering Facility: [facility] Address: [address] [place] [address] Performed By: #### 2 132-9, 2284-03 #### [facility] CLIA [id number] [address] [place] [address] [place] Immature granulocytes (Bld) [#/Vol] 0.11 10*3/uL High <0.10 [facility] Comment on above: Order Comment: Speci men Type: BLOOD SPECIMEN Ordering Facility: [facility] Address: [address] [place] [address] Performed By: #### 2 132-9, 2284-03 #### [facility] CLIA [id number] [address] [place] [address] [place] Immature granulocytes/100 WBC (Bld) 0.7 % Normal [facility] Comment on above: Order Comment: Speci men Type: BLOOD SPECIMEN Ordering Facility: [facility] Address: [address] [place] [address] Performed By: #### 2 132-9, 8 #### [facility] CLIA [id number] [address] [place] [address] [place] Lymphocytes (Bld) [#/Vol] 2.00 10*3/uL Normal 1.00-4.00 [facility] Comment on above: Order Comment: Speci men Type: BLOOD SPECIMEN Ordering Facility: [facility] Address: [address] [place] [address] Performed By: #### 2 132-9, 8 #### [facility] CLIA [id number] [address] [place] [address] [place] Lymphocytes/100 WBC (Bld) 13.1 % Normal [facility] Comment on above: Order Comment: Speci men Type: BLOOD SPECIMEN Ordering Facility: [facility] Address: [address] [place] [address] Performed By: #### 2 132-9, 8 #### [facility] CLIA [id number] [address] [place] [address] [place] MCH (RBC) [Entitic mass] 23.7 pg Low 26.0-34.0 [facility] Comment on above: Order Comment: Speci men Type: BLOOD SPECIMEN Ordering Facility: [facility] Address: [address] [place] [address] Performed By: #### 2 132-9, 8 #### [facility] CLIA [id number] [address] [place] [address] [place] MCHC (RBC) [Mass/Vol] 30.7 g/dL Normal 30.5-36.0 [facility] Comment on above: Order Comment: Speci men Type: BLOOD SPECIMEN Ordering Facility: [facility] Address: [address] [place] [address] Performed By: #### 2 132-9, 8 #### [facility] CLIA [id number] [address] [place] [address] [place] MCV (RBC) [Entitic vol] 77.1 fL Low 80.0-100.0 [facility] Comment on above: Order Comment: Speci men Type: BLOOD SPECIMEN Ordering Facility: [facility] Address: [address] [place] [address] Performed By: #### 2 132-9, 8 #### [facility] CLIA [id number] [address] [place], [place] [id number] [place] Monocytes (Bld) [#/Vol] 1.06 10*3/uL High <0.87 [facility] Comment on above: Order Comment: Speci men Type: BLOOD SPECIMEN Ordering Facility: [facility] Address: [address] [place] [address] Performed By: #### 2 132-9, 8 #### [facility] CLIA [id number] [address] [place] [address] [place] Monocytes/100 WBC (Bld) 7.0 % Normal [facility] Comment on above: Order Comment: Speci men Type: BLOOD SPECIMEN Ordering Facility: [facility] Address: [address] [place] [address] Performed By: #### 2 132-9, 8 #### [facility] CLIA [id number] [address] [place] [address] [place] Neutrophils (Bld) [#/Vol] 12.01 10*3/uL High 1.45-7.50 [facility] Comment on above: Order Comment: Speci men Type: BLOOD SPECIMEN Ordering Facility: [facility] Address: [address] [place] [address] Performed By: #### 2 132-9, 8 #### [facility] CLIA [id number] [address] [place] [address] [place] Neutrophils/100 WBC (Bld) 79.0 % Normal [facility] Comment on above: Order Comment: Speci men Type: BLOOD SPECIMEN Ordering Facility: [facility] Address: [address] [place] [address] Performed By: #### 2 132-9, 8 #### [facility] CLIA [id number] [address] [place] [address] [place] Nucleated RBC (Bld) [#/Vol] 10*3/uL Normal <0.01 [facility] Comment on above: Order Comment: Speci men Type: BLOOD SPECIMEN Ordering Facility: [facility] Address: [address] [place] [address] Performed By: #### 2 132-9, 2284-03 #### [facility] CLIA [id number] [address] [place] [address] [place] Nucleated RBC/100 WBC (Bld) [Ratio] 0.0 /100 WBC Normal [facility] Comment on above: Order Comment: Speci men Type: BLOOD SPECIMEN Ordering Facility: [facility] Address: [address] [place] [address] Performed By: #### 2 132-9, 2284-03 #### [facility] CLIA [id number] [address] [place] [address] [place] Platelet mean volume (Bld) [Entitic vol] 8.7 fL Low 9.0-12.7 [facility] Comment on above: Order Comment: Speci men Type: BLOOD SPECIMEN Ordering Facility: [facility] Address: [address] [place] [address] Performed By: #### 2 132-9, 8 #### [facility] CLIA [id number] [address] [place] [address] [place] Platelets (Bld) [#/Vol] 296 10*3/uL Normal 150-400 [facility] Comment on above: Order Comment: Speci men Type: BLOOD SPECIMEN Ordering Facility: [facility] Address: [address] [place] [address] Performed By: #### 2 132-9, 8 #### [facility] CLIA [id number] [address] [place] [address] [place] RBC (Bld) [#/Vol] 5.03 10*6/uL Normal 3.90-5.20 [facility] Comment on above: Order Comment: Speci men Type: BLOOD SPECIMEN Ordering Facility: [facility] Address: [address] [place] [address] Performed By: #### 2 132-9, 2284-8 #### [facility] CLIA [id number] [address] [place] [address] [place] WBC (Bld) [#/Vol] 15.21 10*3/uL High 3.70-11.00 [facility] Comment on above: Order Comment: Speci men Type: BLOOD SPECIMEN Ordering Facility: [facility] Address: [address] [place] [address] Performed By: #### 2 132-9, 2284-8 #### [facility] CLIA [id number] [address] [place] [address] [place] ABD/PEL WO IVCONon 2024 CT ABD/PEL WO IVCON * * *Final Report* * * DATE OF EXAM: Sep 25 2024 5:53PM [facility] 0531 - CT ABD/PEL WO IVCON / PROCEDURE REASON: Abdominal abscess/infection suspected * * * * Physician Interpretation * * * * EXAMINATION: CT ABDOMEN AND PELVIS WITHOUT IV CONTRAST CLINICAL HISTORY: Near syncopal episode and abdominal pain. Suspected pyelonephritis TECHNIQUE: Non-IV contrast imaging of the abdomen and pelvis was performed using standard technique, scanning from just above the dome of the diaphragm to the symphysis pubis. Unenhanced imaging is limited for the evaluation of some intra-abdominal and pelvic pathology. MQ: CTAPWO_3 Contrast: IV: None Oral: None CT Radiation dose: Integrated Dose-length product (DLP) for this visit = 981 mGy*cm. CT Dose Reduction Employed: Automated exposure control (AEC) COMPARISON: None. RESULT: Abdomen / Pelvis: Liver: Unremarkable. Biliary: S/p cholecystectomy. Spleen: No splenomegaly. Pancreas: Atrophic Adrenals: No mass. Kidneys: No calculus, hydronephrosis or finding to suggest a cyst or mass in the unenhanced kidney. Partially duplicated left ureter. GI Tract: No bowel dilation. Mild diverticulosis Lymph Nodes: No lymphadenopathy. Mesentery/peritoneum: No ascites. Retroperitoneum: No mass. Vasculature: Marked aortoiliac atherosclerotic calcification Pelvis: No mass or ascites. 2 cm right ovarian cyst. Bones/Soft Tissues: No acute abnormality. Lower thorax: Unremarkable. Localizer images: No additional findings. IMPRESSION: No acute intra-abdominal or pelvic abnormality. Unenhanced scan is insensitive to focal renal parenchymal abnormalities including pyelonephritis. Construction Executive: [facility] Transcribe Date/Time: Sep 25 2024 7:01P Dictated by : ANGEL WHITMAN MD This examination was interpreted and the report reviewed and electronically signed by: ANGEL WHITMAN MD on Sep 25 2024 7:07PM EST [id number] Normal [facility] CT BRAIN WO IVCONon 09-25-19 CT BRAIN WO IVCON * * *Final Report* * * DATE OF EXAM: Sep 25 2024 5:53PM [facility] 0504 - CT BRAIN WO IVCON / PROCEDURE REASON: near syncope * * * * Physician Interpretation * * * * EXAMINATION: CT BRAIN WO IVCON CLINICAL HISTORY: Near syncopal episode TECHNIQUE: Serial axial images without IV contrast were obtained from the vertex to the foramen magnum. MQ: CTBWO_3 CT Radiation dose: Integrated Dose-Length Product (DLP) for this visit = 705 mGy*cm CT Dose Reduction Employed: mAs-kVp adjusted based on patient size-age COMPARISON: None. RESULT: Localizer images: Unremarkable. Post-operative change: None. Acute change: No evidence of an acute infarct or other acute parenchymal process. Hemorrhage: No evidence of acute intracranial hemorrhage. ECASS hemorrhagic transformation score: Not Applicable Mass Lesion / Mass Effect: There is no evidence of an intracranial mass or extraaxial fluid collection. No significant mass effect. Chronic change: Remote right PICA infarct. Parenchyma: There is no significant volume loss. The brain parenchyma is otherwise within normal limits for age. Ventricles: The ventricles are within normal limits of size and configuration for age. Paranasal sinuses and skull base: The visualized paranasal sinuses are grossly clear. The skull base and imaged soft tissues are unremarkable. IMPRESSION: No acute intracranial abnormalities. Small remote right PICA territory infarct. Construction Executive: [facility] Transcribe Date/Time: Sep 25 2024 6:11P Dictated by : MILDRED MAURICIO MD This examination was interpreted and the report reviewed and electronically signed by: MILDRED MAURICIO MD on Sep 25 2024 6:12PM EST [id number] Normal [facility] ECG COMPLETEon 09-25-2024 ECG COMPLETE Ventricular Rate : 8 4 BPM Atrial Rate : 84 BPM P-R Interval : 146 ms QRS Duration : 88 ms Q-T Interval : 358 ms QTC Calculation(Bazett) : 423 ms Calculated P Shields : 36 degrees Calculated R Shields : -25 degrees Calculated T Shields : 105 degrees NORMAL SINUS RHYTHM LEFT VENTRICULAR HYPERTROPHY WITH REPOLARIZATION ABNORMALITY ( R in aVL ) INFERIOR MYOCARDIAL INFARCTION , AGE UNDETERMINED ABNORMAL ECG NOTE: PLEASE SEE PHYSICIAN'S NOTE FROM E.D. VISIT Confirmed by MD ZAYAS CHRISTOPHER ([id number]), manager editorial AIDA MCKEON ([id number]) on 10/01/2024 1:02:07 PM NAME : JANESSA BARON PID : [id number] : 1950 Gender : Female Race : ORD : [id number] Procedure Date : Sep 25 2024 12:19:59 Edit Date : Oct 01 2024 13:02:09 Diagnosis: NORMAL SINUS RHYTHM LEFT VENTRICULAR HYPERTROPHY WITH REPOLARIZATION ABNORMALITY ( R in aVL ) INFERIOR MYOCARDIAL INFARCTION , AGE UNDETERMINED ABNORMAL ECG NOTE: PLEASE SEE PHYSICIAN'S NOTE FROM E.D. VISIT Confirmed by MD ZAYAS CHRISTOPHER ([id number]), manager editorial AIDA MCKEON ([id number]) on 10/01/2024 1:02:07 PM Test Reason : Chest Pain Location : 2 : EDNS E15-008 Overread By : MD ZAYAS CHRISTOPHER Edited By : AIDA MCKEON Referred By : , Acquired by : Jackelin goldberg [facility] ED NOTEon 09-25-2024 ED NOTE HNO ID: [id number] Author: OSKAR LOMBARDO LPN Service: Nursing Author Type: LICENSED NURSE Type: ED Notes Filed: 09/25/2024 23:09 Note Text: Pt still very vocal about having joint pain. Pt endorses feelings of frustration with this BUILDING CODE ADMINISTRATOR. 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 Responded with HEART. This nurse reminded Mrs. Baron that her behavior towards nursing staff will not be tolerated. Firm boundaries drawn with pt concerning care and communication. DARON Nugent MD notified. Normal [facility] ED NOTE HNO ID: [id number] Author: OSKAR LOMBARDO LPN Service: Nursing Author Type: LICENSED NURSE Type: ED Notes Filed: 09/25/2024 23:04 Note Text: Pt very vocal in expressing discomfort with this nurse. Pt moaning so loudly passersby can hear her through the closed door. Upon entering the room, pt shouted help me damn it! At this BUILDING CODE ADMINISTRATOR. When I attempted other methods of pain management, pt interrupted this nurse with intentional and repeated wailing. Eventually pt got within a couple of inches to this BUILDING CODE ADMINISTRATOR's face and screamed Get the hell out of here until you can actually do something! Pt continues to moan and wail despite reassurances from staff. DARON Nugent MD notified. Normal [facility] ED NOTE HNO ID: [id number] Author: ELLI PINEDA RN Service: Emergency Medicine Author Type: Registered Nurse Type: ED Notes Filed: 09/25/2024 22:32 Note Text: Nurse to nurse given to PATRICA Akins. Normal [facility] ED PROV NOTEon 09-25-2024 ED PROV NOTE HNO ID: [id number] Author: GAUTAM NUGENT MD Service: Emergency Medicine Author Type: Physician Type: ED Provider Notes Filed: 09/26/2024 01:07 Note Text: ED CONTINUATION OF CARE NOTE Code Status: Full Code Assumed care from: Dr Lawrence Zayas Presentation / Findings / Interventions / Plan / Items to Follow Up: [place] lightheaded with syncopal episode when getting out of the car on campus for her 's outpatient appointment. She also complained of abdominal pain. She is noted to have elevated heart rate and fever. Pending CT scan head, abd. Treated as for pyelonephritis with ceftriaxone, +1 LE, > 20 WBC on UA, WBC blood 15K. ED Course as of 09/26/24106 Others' Documentation WedSep 25, 2024 1231 EKG personally reviewed NSR 84, normal HI and QT intervals, narrow QRS, no ST/T concerning for ischemia; no prior for comparison. [CB] 1313 History: 74F CAD s/p CABG, DM2 presenting for lightheaded upon standing from car; no fall, lowered to ground by staff. No CP or SOB. Symptoms have resolved. [place] fine this morning. Recently started steroid taper for asthma flare. States to me abdominal pain; short duration yesterday, but now worse abdominal pain since the event. Exam: converses in full sentences but in child-like voice, no visible evidence of distress although appears uncomfortable and then yawning, here with , EOMI, moist mucous membranes, CTAB no WRR, RRR no MRG, abd soft, obese, tender periumbilical, no RG, pulses x 4, CALVILLO, no edema, no acute injuries/deformities. Assessment/MDM: 74F presenting for near-syncopal episode, now with abdominal pain. Difficult in obtaining history as patient with almost regressive behavior; warrants cautious workup- Thank you, Leo Zayas MD [facility] [place] [CB] ED Course User Index [CB] Leo Zayas MD Clinical Impressions as of 09/26/24106 Lightheadedness - resolved Fibromyalgia Spinal stenosis of lumbar region, unspecified whether neurogenic claudication present Chronic bilateral low back pain without sciatica Hypokalemia Hypomagnesemia Sepsis (HCC) Urinary tract infection without hematuria, site unspecified Pyelonephritis Medical Decision Making Placed in the observation unit for pyelonephritis. SIGNATURE: Gautam Nugent MD PATIENT NAME: Janessa Baron DATE: September 25, 2024 TIME: 5:08 PM PAGER/CONTACT #: GAUTAM NUGENT 09/26/24106 Normal [facility] ED PROV NOTE HNO ID: [id number] Author: LEO ZAYAS MD Service: Emergency Medicine Author Type: Physician Type: ED Provider Notes Filed: 09/26/2024 20:08 Note Text: ED Provider Note Patient Name: Janessa Baron : 1950 SERVICE DATE: 09/25/24 History Patient presents with: Dizziness: Pt states I was in the car for 3hrs and I tried to get up but I couldn't. I tried to use my rollator but my lowered me to the ground. Never passed out. Ms. Janessa Baron, a 74-year-old female, with a previous medical history of asthma, HTN, HLD, CAD s/p CABG x 3 (11/2022), type 2 DM, carotid artery stenosis s/p stent, fibromyalgia, who presents to the Emergency Department with a chief complaint of lightheadedness. Patient states that she was coming up to [facility] for her 's scheduled appointment today. Patient did not drive, and then had to wait another hour to have an wind cracking still operator parking at the main entrance of the [facility]. Patient states that upon getting out of the car she had a new felt lightheaded when standing up and felt globally weak. Patient was lowered to the ground by [facility] staff and her . Denies any traumatic injuries upon getting to the ground. Patient denies any preceding chest pain/shortness of breath prior to the episode. Patient states that she isbaseline wheeled walker dependent. Patient states when she woke up this morning she is in her usual state of health. Denies any recent hospitalizations illnesses. Presently patient denies any lightheadedness. Patient does endorse her chronic low back pain, states that she took her morning tramadol as well as to extrastrength strength Tylenol. She denies any acute worsening of the pain, denies bowel/bladder emptying difficulty, saddle anesthesia, numbness/paresthesias. Patient states he took all her prescribed medications this morning with breakfast. States that she recently started Jaurdiance for her diabetes, and prednisone for treatment of her asthma. Denies any other new medications including OTCs, or recent dose changes. History provided by: EMS personnel and spouse PAST MEDICAL HISTORY Diagnosis Date Asthma Carotid stenosis Delayed emergence from general anesthesia deep anesthesia 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) 05/22/2022 Diabetes mellitus, type 2 (HCC) Hyperlipidemia Hypertension Sliding hiatal hernia PAST SURGICAL HISTORY Procedure Laterality Date BREAST BIOPSY Bilateral benign BREAST SURGERY HX CHOLECYSTECTOMY COLONOSCOPY 05/2017 COLONOSCOPY SCREENING 2019 EGD 04/2017 EGD DIAGNOSTIC 01/2023 F SALPINGO-OOPHORECTOMY Left IR RT HEART CATH 11/10/2022 PAST SURGICAL HISTORY OF left TM repair PAST SURGICAL HISTORY OF Left 12/1991 Repair of hole in left eardrum PAST SURGICAL HISTORY OF 06/03/1998 Scalp - removal of sebaceaous cyst PAST SURGICAL HISTORY OF 11/26/2022 Triple Bypass PAST SURGICAL HISTORY OF 01/25/2024 Left carotid artery stint REMV CATARACT EXTRACAP,INSERT LENS Left REMV CATARACT EXTRACAP,INSERT LENS Right TUBAL LIGATION FAMILY HISTORY Problem Relation Age of Onset Heart Mother Stroke Mother Emphysema Father Heart Father Heart Attack Father Colon Cancer Sister 67 Diabetes Sister Diabetes Sister Heart Sister Thyroid Cancer Brother Social History Tobacco Use Smoking status: Never Smokeless tobacco: Never Vaping Use Vaping status: Never Used Substance and Sexual Activity Alcohol use: Not Currently Drug use: Not Currently Sexual activity: Not on file ALLERGIES Allergen Reactions Metoclopramide Unknown Sulfamethoxazole-Tr* Unknown Morphine Unknown Acetaminophen Unknown Augmentin [Amoxicil* Rash Cefzil [Cefprozil] Rash Dayquil Allergy 12-* Hives Dextromethorphan Hives Doxylamine Hives Erythromycin Rash Iodinated Contrast * Hives Ivp Dye [Iodine] Unknown knot on head Lincomycin Rash Pseudoephedrine Hives Reglan [Metoclopram* Intolerance Ecoynft-Abk-Ihk Red* Unknown Other reaction(s): Other Tequin [Gatifloxaci* Rash Doxycycline Unknown, Vomiting Review of Systems Constitutional: Negative for chills, fatigue and fever. HENT: Negative for congestion, rhinorrhea, sneezing, sore throat and trouble swallowing. Respiratory: Negative for cough, shortness of breath and wheezing. Cardiovascular: Negative for chest pain, palpitations and leg swelling. Gastrointestinal: Negative for abdominal distention, abdominal pain, diarrhea, nausea and vomiting. Genitourinary: Negative for difficulty urinating, dysuria, flank pain, frequency and urgency. Musculoskeletal: Positive for back pain (Chronic). Negative for gait problem and neck pain. Skin: Negative for wound. Neurological: Positive for weakness (Global, now resolved) and light-headedness (Resolved). Negative for dizziness and headaches. Physical Exam Vitals BP Pulse Temp Temp src Resp SpO2 (more content not included)... Normal [facility] GRAM NEGATIVE ORGANISM ID BY MICROARRAY (MeMeMe)on 09-25-2024 GRAM NEGATIVE ORGANISM ID BY MICROARRAY (VERIGENE) BCID INTERPRETATION: Escherichia coli detected by microarray. Confirmation and susceptibility testing to follow. Negative for Acinetobacter spp. and Pseudomonas aeruginosa by microarray. Abnormal [facility] Comment on above: Performed By: #### I DBCGN, 600-7 ####[facility] [id number] [place] [address] [place] HIGH SENSITIVITY TROPONIN T (INITIAL)on 09-25-2024 Troponin T.cardiac High sensitivity method [Mass/Vol] 14 ng/L High <12 [facility] Comment on above: Order Comment: Speci men Type: BLOOD SPECIMEN Ordering Facility: [facility] Address: [address] [place] [address] Performed By: #### 2 4321-2 #### [facility] CLIA [id number] [address] [place] [address] [place] HIGH SENSITIVITY TROPONIN T (SECOND)on 09-25-2024 Troponin T.cardiac High sensitivity method [Mass/Vol] 16 ng/L High <12 [facility] Comment on above: Order Comment: Speci men Type: BLOOD SPECIMEN Ordering Facility: [facility] Address: [address] [place] [address] Performed By: #### L [id number] #### [facility] CLIA [id number] [address] [place] [address] [place] HIGH SENSITIVITY TROPONIN T (THIRD) 3 HRS AFTER INITIALon 09-25-2024 Troponin T.cardiac High sensitivity method [Mass/Vol] 17 ng/L High <12 [facility] Comment on above: Order Comment: Speci men Type: BLOOD SPECIMEN Ordering Facility: [facility] Address: [address] [place] [address] Performed By: #### 2 4321-2 #### [facility] CLIA [id number] [address] [place] [address] [place] Magnesium SerPl-mCncon 09-25 Magnesium [Mass/Vol] 1.5 mg/dL Low 1.7-2.3 [facility] Comment on above: Order Comment: Specmarleni cisneros Type: BLOOD SPECIMEN Ordering Facility: [facility] Address: [address] [place] [address] Performed By: #### 2 4321-2 #### [facility] CLIA [id number] [address] [place] [address] [place] PT panel Coag (PPP)on 2024 INR Coag (PPP) [Relative time] 1.0 {INR} Normal 0.9-1.3 [facility] Comment on above: Order Comment: Gadiel cisneros Type: BLOOD SPECIMENOrdering Facility: [facility] Address: [address] [place] [address] Result Comment: Marina min K Antagonist (VKA) Therapeutic Range: INR 2 to 3 (Target INR of 2.5) Note: For patients treated with VKA drugs, such as warfarin, the [place] [employer] 2012 Guideline recommends a therapeutic INR range of 2 to 3 (target INR of 2.5). This recommendation includes high-risk patients with antiphospholipid syndrome with previous arterial or venous thromboembolism, current-generation mechanical or bioprosthetic aortic heart valve replacement. Note: Patients with mechanical aortic valve replacement and additional risk factors for thromboembolic events (atrial fibrillation, previous thromboembolism, LV dysfunction, hypercoagulable conditions) or an older generation mechanical AVR (i.e., ball in-Cage) or any mechanical MVR should have a INR therapeutic range of 2.5 to 3.5 (target INR of 3). Nya GH, et al. Chest 2012, 141:7S-47S Jamel RA, et al. [facility] 2017, 70: 252-289 Performed By: #### 3 4528-0, 88897-7 ####[facility] [id number] [facility] [place] [address] [place] PT Coag (PPP) [Time] 11.2 s Normal 9.7-13.0 [facility] Comment on above: Order Comment: Gadiel cisneros Type: BLOOD SPECIMENOrdering Facility: [facility] Address: [address] [place] [address] Performed By: #### 3 4528-0, 26682-8 ####[facility] [id number] [place] [address] [place] SEPSIS LACTATE W/ REFLEX (IN ITIAL)on 09-25-2024 Lactate [Moles/Vol] 2.2 mmol/L High <=2.0 [facility] Comment on above: Order Comment: Speci men Type: BLOOD SPECIMEN Ordering Facility: [facility] Address: [address] [place] [address] Performed By: #### 2 4321-2 #### [facility] CLIA [id number] [address] [place] [address] [place] SEPSIS LACTATE W/ REFLEX (SE COND)on 09-25-2024 Lactate [Moles/Vol] 1.8 mmol/L Normal <=2.0 [facility] Comment on above: Order Comment: Speci men Type: BLOOD SPECIMEN Ordering Facility: [facility] Address: [address] [place] [address] Performed By: #### 2 132-9, 2284-8 #### [facility] CLIA [id number] [address] [place] [address] [place] Urinalysis complete panel (U )on 09-25-2024 BACTERIA UL >9821 High Negative [facility] Comment on above: Order Comment: Speci men Type: BLOOD SPECIMEN Ordering Facility: [facility] Address: [address] [place] [address] Performed By: #### 2 4321-2 #### [facility] CLIA [id number] [address] [place] [address] [place] Bilirubin Ql (U) Negative Normal Negative [facility] Comment on above: Order Comment: Speci men Type: BLOOD SPECIMEN Ordering Facility: [facility] Address: [address] [place] [address] Performed By: #### 2 4321-2 #### [facility] CLIA [id number] [address] [place] [id number] [place] Clarity (Unsp spec) Clear Normal Clear [facility] Comment on above: Order Comment: Speci men Type: BLOOD SPECIMEN Ordering Facility: [facility] Address: [address] [place], [place] [address] Performed By: #### 2 4321-2 #### [facility] CLIA [id number] [address] [place] [address] [place] Color (U) Yellow Normal Yellow [facility] Comment on above: Order Comment: Speci men Type: BLOOD SPECIMEN Ordering Facility: [facility] Address: [address] [place] [address] Performed By: #### 2 4321-2 #### [facility] CLIA [id number] [address] [place] [address] [place] Epithelial cells LM.HPF (Urine sed) [#/Area] None Seen Normal [facility] Comment on above: Order Comment: Speci men Type: BLOOD SPECIMEN Ordering Facility: [facility] Address: [address] [place] [address] Performed By: #### 2 4321-2 #### [facility] CLIA [id number] [address] [place], [place] [address] [place] Glucose Test strip (U) [Mass/Vol] 3+ Abnormal Negative [facility] Comment on above: Order Comment: Speci men Type: BLOOD SPECIMEN Ordering Facility: [facility] Address: [address] [place] [id number] Performed By: #### 2 4321-2 #### [facility] CLIA [id number] [address] [place] [address] [place] Hemoglobin Ql (U) 1+ Abnormal Negative [facility] Comment on above: Order Comment: Speci men Type: BLOOD SPECIMEN Ordering Facility: [facility] Address: [address] [place], [place] [address] Performed By: #### 2 4321-2 #### [facility] CLIA [id number] [facility] [place] [address] [place] Hyaline casts (Urine sed) [#/Area] 1-3 /LPF Abnormal 0 /LPF [facility] Comment on above: Order Comment: Speci men Type: BLOOD SPECIMEN Ordering Facility: [facility] Address: [address] [place] [address] Performed By: #### 2 4321-2 #### [facility] CLIA [id number] [address] [place] [address] [place] Ketones Ql (U) Negative Normal Negative [facility] Comment on above: Order Comment: Speci men Type: BLOOD SPECIMEN Ordering Facility: [facility] Address: [address] [place] [address] Performed By: #### 2 4321-2 #### [facility] CLIA [id number] [address] [place] [address] [place] Leukocyte esterase Test strip Ql (U) 1+ Abnormal Negative [facility] Comment on above: Order Comment: Speci men Type: BLOOD SPECIMEN Ordering Facility: [facility] Address: [address] [place] [address] Performed By: #### 2 4321-2 #### [facility] CLIA [id number] [address] [place] [address] [place] Nitrite Ql (U) Negative Normal Negative [facility] Comment on above: Order Comment: Speci men Type: BLOOD SPECIMEN Ordering Facility: [facility] Address: [address] [place] [address] Performed By: #### 2 4321-2 #### [facility] CLIA [id number] [address] [place], [place] [address] [place] pH (U) 6.0 [pH] Normal <8.5 [facility] Comment on above: Order Comment: Speci men Type: BLOOD SPECIMEN Ordering Facility: [facility] Address: [address] [place] [address] Performed By: #### 2 4321-2 #### [facility] CLIA [id number] [address] [place] [address] [place] Protein (U) [Mass/Vol] 1+ Abnormal Negative [facility] Comment on above: Order Comment: Speci men Type: BLOOD SPECIMEN Ordering Facility: [facility] Address: [address] [place] [address] Performed By: #### 2 4321-2 #### [facility] CLIA [id number] [address] [place] [address] [place] RBC LM.HPF (Urine sed) [#/Area] 0-2 /HPF Normal 0-2 /HPF [facility] Comment on above: Order Comment: Speci men Type: BLOOD SPECIMEN Ordering Facility: [facility] Address: [address] [place] [address] Performed By: #### 2 4321-2 #### [facility] CLIA [id number] [address] [place] [address] [place] Specific gravity (U) [Rel density] 1.024 Normal 1.005-1.030 [facility] Comment on above: Order Comment: Speci men Type: BLOOD SPECIMEN Ordering Facility: [facility] Address: [address] [place] [address] Performed By: #### 2 4321-2 #### [facility] CLIA [id number] [address] [place] [address] [place] Urobilinogen Ql (U) 0.2 EU/dL Normal 0.2-1.0 EU/dL [facility] Comment on above: Order Comment: Speci men Type: BLOOD SPECIMEN Ordering Facility: [facility] Address: [address] [place] [address] Performed By: #### 2 4321-2 #### [facility] CLIA [id number] [address] [place] [address] [place] WBC LM.HPF (Urine sed) [#/Area] /[HPF] Abnormal 0-5 /HPF [facility] Comment on above: Order Comment: Speci men Type: BLOOD SPECIMEN Ordering Facility: [facility] Address: [address] [place] [address] Performed By: #### 2 4321-2 #### [facility] CLIA [id number] [address] [place] [address] [place] XR CHEST 2V FRONTAL/LATon XR CHEST 2V FRONTAL/LAT * * *Final Report* * * DATE OF EXAM: Sep 25 2024 3:17PM EGX [id number] - XR CHEST 2V FRONTAL/LAT / PROCEDURE REASON: Syncope/presyncope, cardiac cause suspected * * * * Physician Interpretation * * * * EXAMINATION: CHEST RADIOGRAPH (2 VIEW FRONTAL and LATERAL) CLINICAL HISTORY: Syncope/presyncope, cardiac cause suspected MQ: [id number]_6 EXAM DATE/TIME: 09/25/2024 3:17 PM COMPARISON: No relevant prior studies available. RESULT: Lines, tubes, and devices: None. Lungs and pleura: No consolidation. No lung mass. No pleural effusion. No pneumothorax. Cardiomediastinal silhouette: Status post median sternotomy. Mildly enlarged cardiomediastinal silhouette. Bones and soft tissues: Unremarkable. IMPRESSION: No acute radiographic abnormality. Construction Executive: PSCB Transcribe Date/Time: Sep 25 2024 3:32P Dictated by : JUVE WILBURN MD This examination was interpreted and the report reviewed and electronically signed by: CHLOE ACEVES MD on Sep 25 2024 3:42PM EST [id number] Normal [facility] aPTT PPPon 09-25-2024 aPTT Coag (PPP) [Time] 23.7 s Normal 23.0-32.4 [facility] Comment on above: Order Comment: Speci men Type: BLOOD SPECIMENOrdering Facility: [facility] Address: [address] [place] [address] [place] [address] Performed By: #### 3 4528-0, 95303-2 ####[facility] [id number] [facility] [place] [address] [place] PAP I-G w/rfx hrHPV-Aptimaon 09-22-2024 ADEQ Comment Normal . [facility] Comment on above: Order Comment: [id number] TRAMADOL Result Comment: Sati sfactory for evaluation. Endocervical and/or squamous metaplastic cells (endocervical component) are present. Performed By: #### L 3410.9998 #### [facility] [address] [place], [address] COMM . Normal . [facility] Comment on above: Order Comment: [id number] TRAMADOL Performed By: #### L 3410.9998 #### [facility] [address] [place], [address] COMMENT Comment Normal . [facility] Comment on above: Order Comment: [id number] TRAMADOL Result Comment: This liquid based ThinPrep(R) pap test was screened with the use of an image guided system. Performed By: #### L 3410.9998 #### [facility] [address] [place], [address] DIAG Comment Normal . [facility] Comment on above: Order Comment: [id number] TRAMADOL Result Comment: NEGA TIVE FOR INTRAEPITHELIAL LESION OR MALIGNANCY. CELLULAR CHANGES ASSOCIATED WITH ATROPHY ARE PRESENT. Performed By: #### L 3410.9998 #### [facility] [address] [place], [address] HPV RFLX Comment Normal . [facility] Comment on above: Order Comment: [id number] TRAMADOL Result Comment: The HPV DNA reflex criteria were not met with this specimen result therefore, no HPV testing was performed. Performed at: [address] [id number] Computer Programmer Analyst: Micaela Gutierrez MD, Phone: [phone] Performed By: #### L 3410.9998 #### [facility] [address] [place], [place], [address] PAPSMR Comment Normal . [facility] Comment on above: Order Comment: [id number] TRAMADOL Result Comment: The Pap smear is a screening test designed to aid in the detection of premalignant and malignant conditions of the uterine cervix. It is not a diagnostic procedure and should not be used as the sole means of detecting cervical cancer. Both false-positive and false-negative reports do occur. Performed By: #### L 3410.9998 #### [facility] [address] [place], [place], [address] PERFORM Comment Normal . [facility] Comment on above: Order Comment: [id number] TRAMADOL Result Comment: aMrilynn Hobson, Glass Technician Performed By: #### L 3410.9998 #### [facility] [address] [place], [place], [address] SCRN MAMM (CAD)W/MIRIAN BILATo n 09-21-2024 SCRN MAMM (CAD)W/MIRIAN BILAT [facility] [address] [facility] [facility] [place], [place] [address] SCRN MAMM (CAD)W/MIRIAN BILAT MR#: [id number] Acct: [id number] Name: JANESSA BARON Rep #: [id number] : 1950 F 74 From: Natalia Morris MD PCP: Dr. Kali Bacon MD Status: [facility] Study: SCRN MAMM (CAD)W/MIRIAN BILAT Date of Exam: 02/07 Exam# [id number] Ordering Dr: Chanda Sanz HYDROLOGIC MODELER HYDROLOGIC MODELER -C PROCEDURE: SCRN MAMM (CAD)W/MIRIAN BILAT REASON FOR EXAM: F, Age 74 y/o, presents with annual screening mammogram. TECHNIQUE: Bilateral screening digital breast tomosynthesis with 2D and 3D images. Computer aided detection. COMPARISON: 08/19/2023, 06/10/2022. FINDINGS: There are scattered areas of fibroglandular density. No suspicious masses, areas of developing architectural distortion, or suspicious calcifications. BI/SCRN MAMM (CAD)W/MIRIAN BILAT IMPRESSION: There is no mammographic evidence of malignancy in either breast. BI-RADS 1: NEGATIVE. RECOMMEND ANNUAL MAMMOGRAPHIC SCREENING. Follow-up code: Routine Follow-up The patient will be notified of the results by letter. Reading Location: [id number] CC: SHANKAR Sanz; Dr. Kali Bacon MD Construction Executive: Signed [facility] CNOVon 09-20-2024 CN Office Visit (FAMNMS ) ----- JANESSA BARON ([id number]) 1950 F Date Time Provider Department 09/20/24 1:00 PM KALI BACON During your visit today, we recorded the following information about you: Temperature Pulse Respiration Blood pressure 97.6 degrees 88/minute 18/minute 126/84 Weight Height 88.9 kg 1.575 m Spring Shipley LPN 09/20/2024 2:22 PM Signed Patient is in office for mole excision on left shoulder. No refills needed Spring Shipley LPN September 20, 2024 1:07 PM Kali Bacon MD 09/20/2024 2:22 PM Signed Subjective Janessa Baron is a 74 year old female. Janessa presents for mole biopsy for suspicious lesion to her left upper back PAST SURGICAL HISTORY Procedure Laterality Date BREAST BIOPSY Bilateral benign BREAST SURGERY HX CHOLECYSTECTOMY COLONOSCOPY 05/2017 COLONOSCOPY SCREENING 2019 EGD 04/2017 EGD DIAGNOSTIC 01/2023 F SALPINGO-OOPHORECTOMY Left IR RT HEART CATH 11/10/2022 PAST SURGICAL HISTORY OF left TM repair PAST SURGICAL HISTORY OF Left 12/1991 Repair of hole in left eardrum PAST SURGICAL HISTORY OF 06/03/1998 Scalp - removal of sebaceaous cyst PAST SURGICAL HISTORY OF 11/26/2022 Triple Bypass PAST SURGICAL HISTORY OF 01/25/2024 Left carotid artery stint REMV CATARACT EXTRACAP,INSERT LENS Left REMV CATARACT EXTRACAP,INSERT LENS Right TUBAL LIGATION PAST MEDICAL HISTORY Diagnosis Date Asthma Carotid stenosis Delayed emergence from general anesthesia deep anesthesia 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) 05/22/2022 Diabetes mellitus, type 2 (HCC) Hyperlipidemia Hypertension Sliding hiatal hernia FAMILY HISTORY Problem Relation Age of Onset Heart Mother Stroke Mother Emphysema Father Heart Father Heart Attack Father Colon Cancer Sister 67 Diabetes Sister Diabetes Sister Heart Sister Thyroid Cancer Brother Social History Tobacco Use Smoking status: Never Smokeless tobacco: Never Vaping Use Vaping status: Never Used Substance Use Topics Alcohol use: Not Currently Drug use: Not Currently ALLERGIES Allergen Reactions Metoclopramide Unknown Sulfamethoxazole-Tr* Unknown Morphine Unknown Acetaminophen Unknown Augmentin [Amoxicil* Rash Cefzil [Cefprozil] Rash Dayquil Allergy 12-* Hives Dextromethorphan Hives Doxylamine Hives Erythromycin Rash Iodinated Contrast * Hives Ivp Dye [Iodine] Unknown knot on head Lincomycin Rash Pseudoephedrine Hives Reglan [Metoclopram* Intolerance Ocwcmgz-Omu-Lgt Red* Unknown Other reaction(s): Other Tequin [Gatifloxaci* Rash Doxycycline Unknown, Vomiting MEDICATIONS: glimepiride (AMARYL) 4 mg tablet Take 1 tablet by mouth daily with breakfast. HYDROcodone-acetaminophen (NORCO) 5-325 mg per tablet Take 1 tablet by mouth every 8 hours as needed for pain. benzocaine/benzethon Cl (DERMOPLAST ANTIBACTERIAL TOPICAL) Apply to affected area as needed. lidocaine (SALONPAS) 4 % patch Apply 1 application as directed once daily. empagliflozin (JARDIANCE) 10 mg tablet Take 1 tablet by mouth daily with breakfast. albuterol (PROVENTIL) 2.5 mg /3 mL (0.083 %) nebulizer solution INHALE WITH 1 VIAL IN NEBULIZER EVERY SIX HOURS NEEDED rosuvastatin (CRESTOR) 10 mg tablet Take 1 tablet by mouth daily at bedtime. metFORMIN (GLUCOPHAGE) 500 mg tablet Take 2 tablets by mouth two times a day with meals. blood sugar diagnostic (ONETOUCH ULTRA TEST) test strip Monitor blood sugar daily and as needed. montelukast (SINGULAIR) 10 mg tablet Take 1 tablet by mouth daily at bedtime. omeprazole (PRILOSEC) 40 mg capsule Take 1 capsule by mouth two times a day. pioglitazone (ACTOS) 45 mg tablet Take 1 tablet by mouth once daily. lisinopril-hydroCHLOROthi azide (ZESTORETIC) 20-12.5 mg per tablet Take 1 tablet by mouth once daily. ketoconazole (NIZORAL) 2 % cream Apply to affected area once daily for 10 days. NYSTOP powder APPLY TO THE AFFECTED AREA(S) THREE TIMES DAILY sucralfate (CARAFATE) 1 gram tablet Take 1 g by mouth three times a day. 1/2 hour before meals budesonide (PULMICORT) 0.5 mg/2 mL nebulizer solution mix 2 ampules with saline and apply twice daily gel base no.41, bulk, (HYDROGEL) gel 1 Dose once daily. lancets (ONE TOUCH DELBinfire) 33 gauge 1 Each once daily. blood sugar diagnostic (ONETOUCH ULTRA TEST) test strip 1 Strip before meals and at bedtime. Use as instructed aspirin, enteric coated (ASPIRIN, ENTERIC COATED) 81 mg EC tablet Take 81 mg by mouth once daily. lancets (TRUEPLUS LANCETS) 33 gauge Monitor blood sugar daily and as needed. traMADol (ULTRAM) 50 mg tablet Take 50 mg by mouth every 6 hours as needed for pain. diclofenac (VOLTAREN) 1 % topical gel Apply to affected area four times daily. mag carb/aluminum hydrox/algin (GAVISCON ORAL) Take 1 tablet by mouth as needed. cetirizine HCl (ZYRTEC ORAL) Take 1 tabl (more content not included)... [facility] Pathology biopsy report Lorenzo (Tiss)on 09-20-2024 CASE REPORT [facility] Comment on above: Order Comment: Speci men Type: TISSUE SPECIMENOrdering Facility: [facility] Address: [address] [place] [address] Result Comment: Surg [facility] Pathology Report Case: [id number] Authorizing Provider: Kali Bacon MD Collected: 09/20/2024 01:35 PM Ordering Location: [facility] Received: 09/21/2024 07:58 AM [facility] [place] Pathologist: Wanda Gonsalves MD Specimen: Skin, Punch Biopsy, Left shoulder punch biopsy Performed By: #### 6 6121-5 ####[facility] LABORATORYCLIA [id number] [address] CLINICAL HISTORY Suspicious mole, lef t shoulder Normal [facility] Comment on above: Order Comment: Speci men Type: TISSUE SPECIMENOrdering Facility: [facility] Address: [address] [place] [address] Performed By: #### 6 6121-5 ####[facility] LABORATORYCLIA [id number] [address] DIAGNOSIS COMMENT Repeat sampling from a more viable tissue from the periphery of the lesion with adjacent uninvolved skin may be recommended, if clinically indicated. Clinical correlation is required. [facility] Comment on above: Order Comment: Speci men Type: TISSUE SPECIMENOrdering Facility: [facility] Address: [address] [place] [address] Performed By: #### 6 6121-5 ####[facility] LABORATORYCLIA [id number] [address] FINAL DIAGNOSIS [facility] Comment on above: Order Comment: Speci men Type: TISSUE SPECIMENOrdering Facility: [facility] Address: [address] [place] [address] Result Comment: A. L eft shoulder, punch biopsy: - Punch biopsy of skin showing completely ulcerated and necrotic epidermis with marked acute inflammation. Performed By: #### 6 6121-5 ####[facility] LABORATORYCLIA [id number] [address] FINAL PERFORMING LAB [facility] Comment on above: Order Comment: Speci men Type: TISSUE SPECIMENOrdering Facility: [facility] Address: [address] [place] [address] Result Comment: Diag nostic interpretation performed at: [facility], [address] [place] [address] CLIA# [id number] Staff Scientist: Wanda Gonsalves MD Performed By: #### 6 6121-5 ####[facility]ATORYCLIA [id number] [address] GROSS DESCRIPTION [facility] Comment on above: Order Comment: Speci men Type: TISSUE SPECIMENOrdering Facility: [facility] Address: [address] [place] [address] Result Comment: A. S kin, Punch Biopsy Received in formalin is a cylindrical segment of skin and subcutaneous tissue measuring 0.7 x 0.4 x 0.3 cm. The specimen is bisected. Totally submitted in one cassette. Gross examination performed at [facility] [address] [place] [address] JXM 09/21/24 10:02 AM Performed By: #### 6 6121-5 ####[facility]ORATORYCLIA [id number] [address] MICROSCOPIC DESCRIPTION [facility] Comment on above: Order Comment: Speci men Type: TISSUE SPECIMENOrdering Facility: [facility] Address: [address] [place] [address] Result Comment: Two H&E stained slides are examined. Intradepartmental consultation with Dr. Saman Bryant. Performed By: #### 6 6121-5 ####[facility]ORATORYCLIA [id number] [address] Color Maker Dyer Cyto stain Nom (C vx/Vag) [ID]Ordered By: Chanda Sanz on 09-18-2024 Pap Smear Performed By Comment . [facility] Comment on above: Jamari Marte totechnologist Cytology report Cyto stain D oc (Cvx/Vag)Ordered By: Chanda Sanz on 09-18-2024 Thin Prep Pap Smear Comment . [facility] Comment on above: The Pap smear is a s creening test designed to aid in thedetection of premalignant and malignant conditions of theuterine cervix. It is not a diagnostic procedure andshould not be used as the sole means of detecting cervicalcancer. Both false-positive and false-negative reports dooccur. Image-guided ThinPrep PapOrd ered By: Chanda Sanz on 09-18-2024 Pap Smear Note Comment . [facility] Comment on above: This liquid based Th inPrep(R) pap test was screened withthe use of an image guided system. Image-guided liquid-based Pa pOrdered By: Chanda Sanz on 09-18-2024 Pap Smear Diagnosis Comment . [facility] Comment on above: NEGATIVE FOR INTRAEP ITHELIAL LESION OR MALIGNANCY.CELLULAR CHANGES ASSOCIATED WITH ATROPHY ARE PRESENT. Image-guided liquid-based ce rvical Pap w high-risk HPV+reflex to HPV 16+18Ordered By: Chanda Sanz on 09-18-2024 Human Papillomavirus Screen Comment . [facility] Comment on above: The HPV DNA reflex c danelle were not met with this specimenresult therefore, no HPV testing was performed.Performed at: - [address] [id number] Director: Micaela Gutierrez MD, Phone: [phone] Laboratory - Chemistry and C hemistry - challengeOrdered By: Chanda Sanz on 09-18-2024 Bilirubin Ql (U) Negative [facility] Glucose Ql (U) 1000 g/dL [facility] Ketones Ql (U) Negative [facility] pH (U) 5.0 [pH] [facility] Specific gravity (U) [Rel density] 1.005 [facility] Urobilinogen (U) [Mass/Vol] Negative [facility] Laboratory - Hematology and Cell countsOrdered By: Chanda Sanz on 09-18-2024 Hemoglobin Ql (U) Negative [facility] Laboratory - Specimen inform ationOrdered By: Chanda Sanz on 09-18-2024 Clarity (U) Clear [facility] Color (U) Yellow [facility] Laboratory - UrinalysisOrder ed By: Chanda Sanz on 09-18-2024 Nitrite Ql (U) Negative [facility] Protein Ql (U) Negative [facility] No Panel InformationOrdered By: Chanda Sanz on 09-18-2024 Urine Leukocytes Negatve [facility] Urine Non-Hemolyzed Blood Negative [facility] [employer] Office Visit Reporton 09-18-2024 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 [address], [address] [place] [address] OFFICE VISIT Date of Service: 09/18/24 MR#: [id number] Acct: [id number] Name: JANESSA BARON Rep #: [id number] : 1950 Provider: SHANKAR membreno Age/Sex: 74/F Location: [facility] [place] [facility] Status: Signed Intake Vital Signs 05/03/24 14:23 09/06/24 11:30 09/18/24 15:24 09/18/24 15:32 Height 5 ft 3 in 5 ft 3 in 5 ft 3 in 5 ft 3 in Weight: 199 lb 198 lb 6 oz BMI 35.2 35.1 BP 135/79 H 138/70 H Blood Pressure Location Rt brachial Position Sitting Respiration 18 Pulse 99 Pulse Source Monitor Temp 97.5 F L Temperature Source Oral Pulse Oximetry (%) 96 Oxygen Delivery Method room air Intake Visit Reasons: Annual (CIGAR BANDER HAND) Chief Complaint: Annual Quiller Operator Required: No Is patient in pain?: No Allergies doxycycline Allergy (Mild, Verified 09/18/24 15:41) unknown sulfamethoxazole (From Bactrim) Allergy (Mild, Verified 09/18/24 15:41) unknown trimethoprim (From Bactrim) Allergy (Mild, Verified 09/18/24 15:41) unknown amoxicillin (From Augmentin) Allergy (Verified 09/18/24 15:41) Hives cefprozil (From Cefzil) Allergy (Verified 09/18/24 15:41) Hives clavulanic acid (From Augmentin) Allergy (Verified 09/18/24 15:41) Hives dextromethorphan (From NyQuil) Allergy (Verified 09/18/24 15:41) Hives doxylamine (From NyQuil) Allergy (Verified 09/18/24 15:41) Hives erythromycin base Allergy (Verified 09/18/24 15:41) Hives gatifloxacin (From Tequin) Allergy (Verified 09/18/24 15:41) Hives lincomycin Allergy (Verified 09/18/24 15:41) Hives metoclopramide (From Reglan) Allergy (Verified 09/18/24 15:41) Other pseudoephedrine (From NyQuil) Allergy (Verified 09/18/24 15:41) Hives morphine Adverse Reaction (Intermediate, Verified 09/18/24 15:41) tachycardia Medications ???Medication ???Instructions ???Recorded ???Confirmed ???Type montelukast 10 mg tablet 10 mg PO QHS ASTHMA 05/21/1609/18 History cetirizine 10 mg capsule (Zyrtec) 5 mg PO DAILY allergy symptoms 09/18/24 History Al hyd-Mg tr-alg ac-sod bicarb 80 1 tab PO DAILY PRN GAS 05/22/19 0 09/18/24 History mg-14.2 mg chewable tablet (Gaviscon) metformin 1,000 mg 24 hr 1,000 mg PO BID DIABETES 05/22/19 09/18/24 History tablet,extended release (gastric reten.) albuterol sulfate 90 mcg/actuation 2 puff inhalation Q6H PRN 09/18/24 History aerosol inhaler Shortness Of Breath Or Wheezing aspirin 81 mg tablet,delayed 81 mg PO DAILY HEART HEALTH 09/18/24 History release (Adult Low Dose Aspirin) tramadol 50 mg tablet 50 mg PO 4X/DAY Pain 01/04/2311/07 History glimepiride 4 mg tablet (Amaryl) 4 mg PO DAILY DIABETES 03/11/23 History rosuvastatin 10 mg tablet (Crestor) 10 mg PO QHS HLD 09/17/2309/18 History omeprazole 40 mg capsule,delayed 40 mg PO BID GERD 10/12/23 5 History release pioglitazone 45 mg tablet (Actos) 45 mg PO DAILY DIABETES 01/11/24 09/18/24 History lisinopril 20 1 tab PO DAILY htn 01/25/24 History mg-hydrochlorothiazide 12.5 mg tablet triamcinolone acetonide 0.1 % 1 applic topical QDAY PRN SKIN 09/18/24 History topical cream docusate sodium 100 mg capsule 100 mg PO DAILY Constipation 08/2909/18/24 History hydrocodone-acetaminophen 5-325mg 0.5 tab PO .DAILY PRN PRN pain 09/18/24 History 5mg-325mg ipratropium 0.5 mg-albuterol 3 mg 3 ml inhalation Q20M PRN shortnes s 08/29/24 09/18/24 History (2.5 mg base)/3 mL nebulization of breath or wheezing soln empagliflozin 10 mg tablet 10 mg PO QAM 09/06/24 09/18/24 His tory (Jardiance) nystatin 100,000 unit/gram topical 1 applic topical TID PRN YEAST 0 09/18/24 09/18/24 Rx powder (Nystop) INFECTION #15 mg Is last menstrual period known: No Post menopausal: Yes Patient : No : No PFSH Medical History Post-menopausal Depression Walker as ambulation aid Bladder disease Low iron Back pain Dietary restriction History of pain when walking History of transesophageal echocardiography (CHERI) Wears glasses Anxiety Restless legs History of hiatal hernia Gastric reflux History of IBS Non-smoker History of edema History of echocardiogram Cardiology follow-up encounter Left carotid bruit Pressure ulcer of left buttock, stage 2 Pressure ulcer of right buttock, stage 2 Postoperative atrial fibrillation H/o difficulty anesthesia Stomach inflammation Carotid stenosis Hyperlipidemia Hypertension Diabetes Asthma Arthritis Surgical History Hx of vascular surgery Hx of right cataract extract (more content not included)... Normal [facility] Service comment (Unsp spec) [Interp]Ordered By: Chanda Sanz on 09-18-2024 Pap Smear Comment (3) . . [facility] CNOVon 09-16-2024 CNOV Office Visit (WSTR ) ----- JANESSA BARON ([id number]) 1950 F Date Time Provider Department 09/16/24 9:00 AM [facility] During your visit today, we recorded the following information about you: Temperature Pulse Respiration Blood pressure 98.1 degrees 100/minute 21/minute 142/66 Weight 89.7 kg Daly Fajardo MD 09/16/2024 9:31 AM Signed Patient presents with: Cough: Chest congestion/burning, stuffy nose, sneezing x 2 days HPI: Feeling sick starting 2 days ago. Initial sore throat has moved to her chest. Positive symptoms: Cough, Nasal Congestion, sneezing, Shortness of breath, Chest tightness, Rhinorrhea, Fatigue, Negative symptoms: Fever, Body Aches, Headache, Nausea, Vomiting, Diarrhea, OTC: Cold Medicine, albuterol nebulizer, MEDICATIONS: Current Outpatient Medications Medication Sig HYDROcodone-acetaminophen (NORCO) 5-325 mg per tablet Take 1 tablet by mouth every 8 hours as needed for pain. benzocaine/benzethon Cl (DERMOPLAST ANTIBACTERIAL TOPICAL) Apply to affected area as needed. lidocaine (SALONPAS) 4 % patch Apply 1 application as directed once daily. empagliflozin (JARDIANCE) 10 mg tablet Take 1 tablet by mouth daily with breakfast. albuterol (PROVENTIL) 2.5 mg /3 mL (0.083 %) nebulizer solution INHALE WITH 1 VIAL IN NEBULIZER EVERY SIX HOURS NEEDED rosuvastatin (CRESTOR) 10 mg tablet Take 1 tablet by mouth daily at bedtime. metFORMIN (GLUCOPHAGE) 500 mg tablet Take 2 tablets by mouth two times a day with meals. blood sugar diagnostic (ArterisTOUCH ULTRA TEST) test strip Monitor blood sugar daily and as needed. glimepiride (AMARYL) 4 mg tablet Take 1 tablet by mouth daily with breakfast. montelukast (SINGULAIR) 10 mg tablet Take 1 tablet by mouth daily at bedtime. omeprazole (PRILOSEC) 40 mg capsule Take 1 capsule by mouth two times a day. pioglitazone (ACTOS) 45 mg tablet Take 1 tablet by mouth once daily. lisinopril-hydroCHLOROthi azide (ZESTORETIC) 20-12.5 mg per tablet Take 1 tablet by mouth once daily. ketoconazole (NIZORAL) 2 % cream Apply to affected area once daily for 10 days. NYSTOP powder APPLY TO THE AFFECTED AREA(S) THREE TIMES DAILY sucralfate (CARAFATE) 1 gram tablet Take 1 g by mouth three times a day. 1/2 hour before meals budesonide (PULMICORT) 0.5 mg/2 mL nebulizer solution mix 2 ampules with saline and apply twice daily gel base no.41, bulk, (HYDROGEL) gel 1 Dose once daily. lancets (ONE TOUCH DELBinfire) 33 gauge 1 Each once daily. blood sugar diagnostic (ArterisTOUCH ULTRA TEST) test strip 1 Strip before meals and at bedtime. Use as instructed aspirin, enteric coated (ASPIRIN, ENTERIC COATED) 81 mg EC tablet Take 81 mg by mouth once daily. lancets (TRUEPLUS LANCETS) 33 gauge Monitor blood sugar daily and as needed. traMADol (ULTRAM) 50 mg tablet Take 50 mg by mouth every 6 hours as needed for pain. diclofenac (VOLTAREN) 1 % topical gel Apply to affected area four times daily. mag carb/aluminum hydrox/algin (GAVISCON ORAL) Take 1 tablet by mouth as needed. cetirizine HCl (ZYRTEC ORAL) Take 1 tablet by mouth once daily. ubidecarenone (CO Q-10 ORAL) Take by mouth. No current facility-administered medications for this visit. ALLERGIES: ALLERGIES Allergen Reactions Metoclopramide Unknown Sulfamethoxazole-Tr* Unknown Morphine Unknown Acetaminophen Unknown Augmentin [Amoxicil* Rash Cefzil [Cefprozil] Rash Dayquil Allergy 12-* Hives Dextromethorphan Hives Doxylamine Hives Erythromycin Rash Iodinated Contrast * Hives Ivp Dye [Iodine] Unknown knot on head Lincomycin Rash Pseudoephedrine Hives Reglan [Metoclopram* Intolerance Dakqoxq-Bft-Cfs Red* Unknown Other reaction(s): Other Tequin [Gatifloxaci* Rash Doxycycline Unknown, Vomiting VITALS: BP 142/66 Pulse 100 Temp 36.7 ?C (98.1 ?F) Resp 21 Wt 89.7 kg (197 lb 12 oz) SpO2 97% BMI 35.93 kg/m? PHYSICAL EXAM: GEN: mildly ill appearing. Accompanied by her HEENT: PERRL, EOMI, conjunctiva clear Ears: RTM without erythema, bulge, or effusion. Left canal occluded by cerumen. Sinuses: non-tender frontal sinus, non-tender maxillary sinuses Throat: moist mucous membranes, no erythema, no exudate Neck: supple, no thyromegaly, no lymphadenopathy HEART: regular rate, regular rhythm, no murmurs LUNGS: clear to auscultation, no wheezes or crackles, no increased WOB Latest Ref Rng 07/27/2024 Hemoglobin A1C 4.3 - 5.6 % 7.2 (H) Latest Ref Rng 07/27/2024 eGFR >=60 mL/min/1.73m? 90 ASSESSMENT/PLAN: 1. URI, acute - ICD9: 465.9, ICD10: J06.9 (primary diagnosis) 2. Asthma with acute exacerbation, unspecified asthma severity, unspecified whether persistent - ICD9: 493.92, ICD10: J45.901 - suspect viral URI exacerbating asthma; differential includes COVID-19. She would like Paxlovid if positive for COVID. Interactions discussed (she would need t (more content not included)... Normal [facility] COVID AND INFLUENZA A/B AND RSV PCR, ROUTINEon 09-16-2024 SARS-CoV-2 (COVID-19) RNA CLAUDIA+probe Ql (Unsp spec) SARS-COV-2 (AGENT OF COVID-19) RNA: Not detected INFLUENZA A RNA: Not detected INFLUENZA B RNA: Not detected RESPIRATORY SYNCYTIAL VIRUS (RSV) RNA: Not detected Normal [facility] Comment on above: Performed By: #### C VFS ####[facility] LABCLIA [id number] [address] [place] Yadiel 09-15-2024 CNPN Telephone ([employer] (T/A)SWS) ----- JANESSA BARON ([id number]) 1950 F Date Time Provider Department 09/15/24 HALIE JINS During your visit today, we recorded the following information about you: Vahe Merino 09/15/2024 2:04 PM Signed 11-15-2024 Colon EGD [place] Provider went over all prep instructions and gave patient direct number to call with questions Vahe Merino Allergies As of Date: 09/15/2024 Noted Allergy Reaction METOCLOPRAMIDE 01/31/2017 16 - Unknown SULFAMETHOXAZOLE-TRIMETHO PRIM 04/01/2017 16 - Unknown MORPHINE 07/24/2020 16 - Unknown DELETED: ACETAMINOPHEN 04/07/2023 16 - Unknown AUGMENTIN (AMOXICILLIN-POT CLAVUL*04/27/2018 2 - Rash CEFZIL (CEFPROZIL) 04/27/2018 2 - Rash DAYQUIL ALLERGY 12-HR 04/27/2018 4 - Hives DEXTROMETHORPHAN 01/31/2017 4 - Hives DOXYLAMINE 01/31/2017 4 - Hives ERYTHROMYCIN 04/27/2018 2 - Rash IODINATED CONTRAST MEDIA 05/22/2019 4 - Hives IVP DYE (IODINE) 04/27/2018 16 - Unknown Comments: knot on head LINCOMYCIN 04/27/2018 2 - Rash PSEUDOEPHEDRINE 01/31/2017 4 - Hives REGLAN (METOCLOPRAMIDE HCL) 04/27/2018 5 - Intolerance [id number]-[id number] REDUCTASE INHIBIT*01/31/2017 16 - Unknown Comments: Other reaction(s): Other TEQUIN (GATIFLOXACIN) 04/27/2018 2 - Rash DOXYCYCLINE 11/28/2018 16 - Unknown 11 - Vomiting Date Reviewed: 09/14/2024 Reviewed by: Halie Jin APRN.GLASS FURNACE TENDER - Fully Assessed Reason for Visit: 11-15-2024 Colon EGD [Other] Prescriptions as of 12/01/2024 - cyanocobalamin (VITAMIN B-12) 1,000 mcg tab Take 1 tablet by mouth once daily. - triamcinolone acetonide (KENALOG) 0.1 % cream APPLY TO THE AFFECTED AREA(S) 1-2X DAILY OR WHEN RASH IS FLARED - SITagliptin phosphate (JANUVIA) 100 mg tablet Take 1 tablet by mouth once daily. - hydrOXYzine HCl (ATARAX) 25 mg tablet Take 1 tablet by mouth every 12 hours as needed for anxiety. - predniSONE (DELTASONE) 20 mg tablet Take 3 tablets by mouth once daily. X3d, then 2 po every day x 3d then 1 po every day x 3d, then 1/2 po every day x 4d - benzonatate (TESSALON PERLE) 100 mg capsule Take 1 capsule by mouth three times a day as needed. - glimepiride (AMARYL) 4 mg tablet Take 1 tablet by mouth daily with breakfast. - HYDROcodone-acetaminophen (NORCO) 5-325 mg per tablet Take 1 tablet by mouth every 8 hours as needed for pain. - benzocaine/benzethon Cl (DERMOPLAST ANTIBACTERIAL TOPICAL) Apply to affected area as needed. - lidocaine (SALONPAS) 4 % patch Apply 1 application as directed once daily. - albuterol (PROVENTIL) 2.5 mg /3 mL (0.083 %) nebulizer solution INHALE WITH 1 VIAL IN NEBULIZER EVERY SIX HOURS NEEDED - rosuvastatin (CRESTOR) 10 mg tablet Take 1 tablet by mouth daily at bedtime. - metFORMIN (GLUCOPHAGE) 500 mg tablet Take 2 tablets by mouth two times a day with meals. - blood sugar diagnostic (ONETOUCH ULTRA TEST) test strip Monitor blood sugar daily and as needed. - montelukast (SINGULAIR) 10 mg tablet Take 1 tablet by mouth daily at bedtime. - omeprazole (PRILOSEC) 40 mg capsule Take 1 capsule by mouth two times a day. - pioglitazone (ACTOS) 45 mg tablet Take 1 tablet by mouth once daily. - lisinopril-hydroCHLOROthi azide (ZESTORETIC) 20-12.5 mg per tablet Take 1 tablet by mouth once daily. - ketoconazole (NIZORAL) 2 % cream Apply to affected area once daily for 10 days. - NYSTOP powder APPLY TO THE AFFECTED AREA(S) THREE TIMES DAILY - sucralfate (CARAFATE) 1 gram tablet Take 1 g by mouth three times a day. 1/2 hour before meals - budesonide (PULMICORT) 0.5 mg/2 mL nebulizer solution mix 2 ampules with saline and apply twice daily - gel base no.41, bulk, (HYDROGEL) gel 1 Dose once daily. - lancets (ONE TOUCH DELICA) 33 gauge 1 Each once daily. - blood sugar diagnostic (ONETOUCH ULTRA TEST) test strip 1 Strip before meals and at bedtime. Use as instructed - aspirin, enteric coated (ASPIRIN, ENTERIC COATED) 81 mg EC tablet Take 81 mg by mouth once daily. - lancets (TRUEPLUS LANCETS) 33 gauge Monitor blood sugar daily and as needed. - traMADol (ULTRAM) 50 mg tablet Take 50 mg by mouth every 6 hours as needed for pain. - diclofenac (VOLTAREN) 1 % topical gel Apply to affected area four times daily. - mag carb/aluminum hydrox/algin (GAVISCON ORAL) Take 1 tablet by mouth as needed. - cetirizine HCl (ZYRTEC ORAL) Take 1 tablet by mouth once daily. - ubidecarenone (CO Q-10 ORAL) Take 1 tablet by mouth once daily. Problem List As Of Date 09/15/2024 Noted Resolved Diabetes mellitus type 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 (H*05/22/2022 Allergic rhinitis [J30.9] 06/05/2019 Asthma [J45.909] 03/01/2017 Essential (primary) hypertension [I10] 03/01/2017 Hypercholesterolemia [E78.00] 07/24/2022 Insomnia [G47.00] 01/26/2018 Polyarthralgia [M25.50] 03/07/2018 Spinal stenosis [M48.00] 06/24/2020 Aortic atherosclerosis (HCC) [I70.0] 11/23/2018 Abnormal (more content not included)... Normal [facility] CNOVon 09-14-2024 CNOV Office Visit (GENSWS ) ----- JANESSA BARON ([id number]) 1950 F Date Time Provider Department 09/14/24 9:00 AM HALIE JIN GENSWS During your visit today, we recorded the following information about you: Pulse Blood pressure Weight 89/minute 119/72 88.9 kg Halie Jin APRN.GLASS FURNACE TENDER 09/14/2024 9:46 AM Signed HISTORY AND PHYSICAL Janessa Baron : 1950 REFERRING PHYSICIAN: Fanny Barron [address] [facility] [address] CHIEF COMPLAINT: Patient presents with: colon consult HPI: Janessa is a 74 year old female referred for endoscopy. Janessa notes chronic MY. Last HANDH 08/21/24 9.5 AND 31.9. Plts 437. She notes 5 surgeries in the 1.5 year including: triple bypass 11/26/2022, torn meniscus, L carotid surg 01/25/24, cholecystectomy. Was due to have L4/L5 laminectomy but was postponed d/t elevated A1C. Janessa denies abdominal pain.. Janessa denies diarrhea. Janessa notes recent history of constipation. -while getting iron infusions. Completed all 5 infusions AND not on oral iron -was using fiber for relief Janessa denies a change in bowel habits. Janessa denies melena. Janessa denies bright red blood per rectum. Janessa denies hemorrhoids. Janessa notes family history of colon issues. Colon cancer in sister Janessa notes occasional heartburn. Janessa denies dysphagia. Janessa denies a history of ulcers/ peptic ulcer disease. Medical history is significant for HTN, CAD, PAF, asthma, and T2DM. Follows with [facility]. Last OV 09/06/24. Hx of CABG x 3 in 2022. She also had a left carotid artery stent placed summer. Post-op A.Fib- wore a holter monitor which was turned in on 09/11/24 with no evidence of A Fib. Janessa has undergone prior endoscopy. Last colonoscopy was 04/[address] Edgar at [facility]. Sedation:Fentanyl 100 micrograms IV, Midazolam 5 mg IV Impression: - The entire examined colon is normal. Biopsied. Last EGD was at [place] with Dr. Arredondo 01/2023. Sedation: MAC Impression: - Multiple plaques in the middle third of the esophagus and in the lower third of the esophagus. Brushings performed. - Bilious gastric fluid. - Gastritis. Biopsied. - Normal examined duodenum. Biopsied. FINAL DIAGNOSIS A - ESOPHAGEAL BRUSH: Negative for malignant cells. 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 Current Outpatient Medications Medication Sig HYDROcodone-acetaminophen (NORCO) 5-325 mg per tablet Take 1 tablet by mouth every 8 hours as needed for pain. benzocaine/benzethon Cl (DERMOPLAST ANTIBACTERIAL TOPICAL) Apply to affected area as needed. lidocaine (SALONPAS) 4 % patch Apply 1 application as directed once daily. empagliflozin (JARDIANCE) 10 mg tablet Take 1 tablet by mouth daily with breakfast. albuterol (PROVENTIL) 2.5 mg /3 mL (0.083 %) nebulizer solution INHALE WITH 1 VIAL IN NEBULIZER EVERY SIX HOURS NEEDED rosuvastatin (CRESTOR) 10 mg tablet Take 1 tablet by mouth daily at bedtime. metFORMIN (GLUCOPHAGE) 500 mg tablet Take 2 tablets by mouth two times a day with meals. blood sugar diagnostic (ONETOUCH ULTRA TEST) test strip Monitor blood sugar daily and as needed. glimepiride (AMARYL) 4 mg tablet Take 1 tablet by mouth daily with breakfast. montelukast (SINGULAIR) 10 mg tablet Take 1 tablet by mouth daily at bedtime. omeprazole (PRILOSEC) 40 mg capsule Take 1 capsule by mouth two times a day. pioglitazone (ACTOS) 45 mg tablet Take 1 tablet by mouth once daily. lisinopril-hydroCHLOROthi azide (ZESTORETIC) 20-12.5 mg per tablet Take 1 tablet by mouth once daily. ketoconazole (NIZORAL) 2 % cream Apply to affected area once daily for 10 days. NYSTOP powder APPLY TO THE AFFECTED AREA(S) THREE TIMES DAILY sucralfate (CARAFATE) 1 gram tablet Take 1 g by mouth three times a day. 1/2 hour before meals budesonide (PULMICORT) 0.5 mg/2 mL nebulizer solution mix 2 ampules with saline and apply twice daily gel base no.41, bulk, (HYDROGEL) gel 1 Dose once daily. lancets (ONE TOUCH DELICA) 33 gauge 1 Each once daily. blood sugar diagnostic (ONETOUCH ULTRA TEST) test strip 1 Strip before meals and at bedtime. Use as instructed aspirin, enteric coated (ASPIRIN, ENTERIC COATED) 81 mg EC tablet Take 81 mg by mouth once daily. lancets (TRUEPLUS LANCETS) 33 gauge Monitor blood sugar daily and as needed. traMADol (ULTRAM) 50 mg tablet Take 50 mg by mouth every 6 hours as needed for pain. diclofenac (VOLTAREN) 1 % topical gel Apply to affected area four times daily. mag carb/aluminum hydrox/algin (GAVISCON ORAL) Take 1 tablet by mouth as needed. cetirizine HCl (ZYRTEC ORAL) Take 1 tablet by mouth once daily. ubidecarenone (CO Q-10 ORAL) Take by mouth. peg 3350-Electrolytes (GOLYTELY) 236-22.74-6.74 -5.86 gram suspension Take 4,000 mL by mouth one time only for 1 dose. Refer to printed prep instructions from your provider. No current facility-administered m (more content not included)... Normal [facility] CNPNon 09-13-2024 CNPN Telephone (FAMMAS) ----- JANESSA BARON ([id number]) 1950 F Date Time Provider Department 09/13/24 KALI BACON FAMMAS During your visit today, we recorded the following information about you: Spring Shipley LPN 09/13/2024 2:06 PM Signed Patients phoned office stating that patient has been experiencing a rash all over body. states patient received Iron infusions at the same time she started Jardiance, and that is when rash began. Unsure if it was Jardiance or Iron causing rash Spring Shipley LPN September 13, 2024 2:06 PM Allergies As of Date: 09/13/2024 Noted Allergy Reaction METOCLOPRAMIDE 01/31/2017 16 - Unknown SULFAMETHOXAZOLE-TRIMETHO PRIM 04/01/2017 16 - Unknown MORPHINE 07/24/2020 16 - Unknown ACETAMINOPHEN 04/07/2023 16 - Unknown AUGMENTIN (AMOXICILLIN-POT CLAVUL*04/27/2018 2 - Rash CEFZIL (CEFPROZIL) 04/27/2018 2 - Rash DAYQUIL ALLERGY 12-HR 04/27/2018 4 - Hives DEXTROMETHORPHAN 01/31/2017 4 - Hives DOXYLAMINE 01/31/2017 4 - Hives ERYTHROMYCIN 04/27/2018 2 - Rash IODINATED CONTRAST MEDIA 05/22/2019 4 - Hives IVP DYE (IODINE) 04/27/2018 16 - Unknown Comments: knot on head LINCOMYCIN 04/27/2018 2 - Rash PSEUDOEPHEDRINE 01/31/2017 4 - Hives REGLAN (METOCLOPRAMIDE HCL) 04/27/2018 5 - Intolerance [id number] REDUCTASE INHIBIT*01/31/2017 16 - Unknown Comments: Other reaction(s): Other TEQUIN (GATIFLOXACIN) 04/27/2018 2 - Rash DOXYCYCLINE 11/28/2018 16 - Unknown 11 - Vomiting Date Reviewed: 09/11/2024 Reviewed by: Susanne Hawkins RN - Fully Assessed Prescriptions as of 09/13/2024 - HYDROcodone-acetaminophen (NORCO) 5-325 mg per tablet Take 1 tablet by mouth every 8 hours as needed for pain. - benzocaine/benzethon Cl (DERMOPLAST ANTIBACTERIAL TOPICAL) Apply to affected area as needed. - lidocaine (SALONPAS) 4 % patch Apply 1 application as directed once daily. - empagliflozin (JARDIANCE) 10 mg tablet Take 1 tablet by mouth daily with breakfast. - albuterol (PROVENTIL) 2.5 mg /3 mL (0.083 %) nebulizer solution INHALE WITH 1 VIAL IN NEBULIZER EVERY SIX HOURS NEEDED - rosuvastatin (CRESTOR) 10 mg tablet Take 1 tablet by mouth daily at bedtime. - metFORMIN (GLUCOPHAGE) 500 mg tablet Take 2 tablets by mouth two times a day with meals. - blood sugar diagnostic ([employer] ULTRA TEST) test strip Monitor blood sugar daily and as needed. - glimepiride (AMARYL) 4 mg tablet Take 1 tablet by mouth daily with breakfast. - montelukast (SINGULAIR) 10 mg tablet Take 1 tablet by mouth daily at bedtime. - omeprazole (PRILOSEC) 40 mg capsule Take 1 capsule by mouth two times a day. - pioglitazone (ACTOS) 45 mg tablet Take 1 tablet by mouth once daily. - lisinopril-hydroCHLOROthi azide (ZESTORETIC) 20-12.5 mg per tablet Take 1 tablet by mouth once daily. - ketoconazole (NIZORAL) 2 % cream Apply to affected area once daily for 10 days. - NYSTOP powder APPLY TO THE AFFECTED AREA(S) THREE TIMES DAILY - sucralfate (CARAFATE) 1 gram tablet Take 1 g by mouth three times a day. 1/2 hour before meals - budesonide (PULMICORT) 0.5 mg/2 mL nebulizer solution mix 2 ampules with saline and apply twice daily - gel base no.41, bulk, (HYDROGEL) gel 1 Dose once daily. - lancets (ONE TOUCH DELICA) 33 gauge 1 Each once daily. - blood sugar diagnostic (ONETOUCH ULTRA TEST) test strip 1 Strip before meals and at bedtime. Use as instructed - aspirin, enteric coated (ASPIRIN, ENTERIC COATED) 81 mg EC tablet Take 81 mg by mouth once daily. - lancets (TRUEPLUS LANCETS) 33 gauge Monitor blood sugar daily and as needed. - traMADol (ULTRAM) 50 mg tablet Take 50 mg by mouth every 6 hours as needed for pain. - diclofenac (VOLTAREN) 1 % topical gel Apply to affected area four times daily. - mag carb/aluminum hydrox/algin (GAVISCON ORAL) Take 1 tablet by mouth as needed. - cetirizine HCl (ZYRTEC ORAL) Take 1 tablet by mouth once daily. - ubidecarenone (CO Q-10 ORAL) Take by mouth. Problem List As Of Date 09/13/2024 Noted Resolved Diabetes mellitus type 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 (H*05/22/2022 Allergic rhinitis [J30.9] 06/05/2019 Asthma [J45.909] 03/01/2017 Essential (primary) hypertension [I10] 03/01/2017 Hypercholesterolemia [E78.00] 07/24/2022 Insomnia [G47.00] 01/26/2018 Polyarthralgia [M25.50] 03/07/2018 Spinal stenosis [M48.00] 06/24/2020 Aortic atherosclerosis (HCC) [I70.0] 11/23/2018 Abnormal cervical Papanicolaou smear [R87.619] 06/16/2022 Bladder pain [R39.89] 12/30/2022 Burping [R14.2] 12/29/2022 Arteriosclerosis of coronary artery [I25.10] 11/18/2022 Diabetes 1.5, 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 Normal [facility] Cardiology Visit Reporton Cardiology Visit Report [facility] [address] [place] [address] OFFICE VISIT Date of Service: 09/06/24 MR#: [id number] Acct: [id number] Name: JANESSA BARON Rep #: [id number] : 1950 Provider: INDU Lan Age/Sex: 74/F Location: [facility] [place] Status: Signed HPI HPI History of Present Illness Details: Janessa Baron is a 74-year-old lady with no previous cardiac history who referred herself to the emergency room for chest discomfort on 11/04/2022. She said that she had been getting chest tightness whenever she walked around and it was associated with some shortness of breath. In the emergency room she was noted to have markedly elevated blood pressure which was brought down with labetalol and Ativan. Cardiac enzymes were normal EKG was also noted to be normal She had described this as tightness radiating to her arm when she walks around [facility]. Her last lipid profile demonstrated total cholesterol 221 HDL of 44 and LDL 135. EKG demonstrates normal sinus rhythm with a rate of 80 bpm and occasional premature ventricular complexes noted. She underwent an echocardiogram which demonstrated left ventricular systolic function hyperdynamic with an estimated ejection fraction of 70%, stage I diastolic dysfunction. Heart catheterization demonstrated severe triple-vessel disease with a very calcified LAD and circumflex and a totally occluded RCA with [id number] collaterals with disease noted in the proximal and mid LAD and proximal circumflex. Patient was recommended for surgical consult for coronary revascularization. On November 26, 2022 at [facility], she underwent bypass surgery with SMITH to the LAD, SVG to the obtuse marginal, SVG to the right posterior descending. She had a LCEA in January of 2024. This was done by Dr. Gilbert. Pt has been having issues with constipation. She has been getting iron infusions. Her back surgery was postponed d/t her elevated Blood sugars. Intake Vital Signs 05/03/24 14:23 09/06/24 11:30 Height 5 ft 3 in 5 ft 3 in Weight: 199 lb BMI 35.2 BP 135/79 H Blood Pressure Location Rt brachial Position Sitting Respiration 18 Pulse 99 Pulse Source Monitor Temp 97.5 F L Temperature Source Oral Pulse Oximetry (%) 96 Oxygen Delivery Method room air Intake Visit Reasons: 4 M FU Is patient in pain?: Yes (back) Pain scale (1-10): 6 Allergies doxycycline Allergy (Mild, Verified 09/06/24 11:35) unknown sulfamethoxazole (From Bactrim) Allergy (Mild, Verified 09/06/24 11:35) unknown trimethoprim (From Bactrim) Allergy (Mild, Verified 09/06/24 11:35) unknown amoxicillin (From Augmentin) Allergy (Verified 09/06/24 11:35) Hives cefprozil (From Cefzil) Allergy (Verified 09/06/24 11:35) Hives clavulanic acid (From Augmentin) Allergy (Verified 09/06/24 11:35) Hives dextromethorphan (From NyQuil) Allergy (Verified 09/06/24 11:35) Hives doxylamine (From NyQuil) Allergy (Verified 09/06/24 11:35) Hives erythromycin base Allergy (Verified 09/06/24 11:35) Hives gatifloxacin (From Tequin) Allergy (Verified 09/06/24 11:35) Hives lincomycin Allergy (Verified 09/06/24 11:35) Hives metoclopramide (From Reglan) Allergy (Verified 09/06/24 11:35) Other pseudoephedrine (From NyQuil) Allergy (Verified 09/06/24 11:35) Hives morphine Adverse Reaction (Intermediate, Verified 09/06/24 11:35) tachycardia Medications ???Medication ???Instructions ???Recorded ???Confirmed ???Type montelukast 10 mg tablet 10 mg PO QHS ASTHMA 05/21/16 09/06/24 History cetirizine 10 mg capsule (Zyrtec) 5 mg PO DAILY allergy symptoms 05/18/18 09/06/24 History Al hyd-Mg tr-alg ac-sod bicarb 80 1 tab PO DAILY PRN GAS 05/22/19 09/06/24 History mg-14.2 mg chewable tablet (Gaviscon) metformin 1,000 mg 24 hr 1,000 mg PO BID DIABETES 05/22/19 09/06/24 History tablet,extended release (gastric reten.) albuterol sulfate 90 mcg/actuation 2 puff inhalation Q6H PRN 11/04/22 09/06/24 History aerosol inhaler Shortness Of Breath Or Wheezing aspirin 81 mg tablet,delayed 81 mg PO DAILY HEART HEALTH 12/21/22 09/06/24 History release (Adult Low Dose Aspirin) tramadol 50 mg tablet 50 mg PO 4X/DAY Pain 01/04/23 09/06/24 History glimepiride 4 mg tablet (Amaryl) 4 mg PO DAILY DIABETES 03/11/23 09/06/24 History rosuvastatin 10 mg tablet (Crestor) 10 mg PO QHS HLD 09/17/23 09/06/24 History omeprazole 40 mg capsule,delayed 40 mg PO BID GERD 10/12/23 09/06/24 History release pioglitazone 45 mg tablet (Actos) 45 mg PO DAILY DIABETES 01/11/24 09/06/24 History lisinopril 20 1 tab PO DAILY htn 01/25/24 09/06/24 History mg-hydrochlorothiazide 12.5 mg tablet triamcinolone acetonide 0.1 % 1 applic topical QDAY PRN SKIN 05/03/24 09/06/24 History topical cream docusate sodium 100 m (more content not included)... [facility] BD DXA - AXIAL SKELETONon BD DXA - AXIAL SKELETON * * *Final Report* * * DATE OF EXAM: Sep 05 2024 2:50PM RMB 0804 - BD DXA - AXIAL SKELETON B / PROCEDURE REASON: M81.0 * * * * Physician Interpretation * * * * EXAMINATION: DXA BONE DENSITOMETRY BD DXA - AXIAL SKELETON PATIENT DEMOGRAPHICS: Age: 74 years, Gender: Female SCANNER INFORMATION: DXA Model: [employer] - [employer] [id number] Date Scanned: 09/05/2024 2:50 PM CLINICAL HISTORY: DIAGNOSTIC M81.0. RISK FACTORS FOR OSTEOPOROSIS AND ASSOCIATED FRACTURES REPORTED BY THIS PATIENT: Please refer to Bone Health Questionnaire in the EMR CURRENT THERAPY: Please refer to Bone Health Questionnaire in the EMR TECHNICAL LIMITATIONS: RESULTS: Lumbar spine (L1, L2, L3, L4): 1.018 g/cm2, T-score -0.3, Z-score 2.0 Left Femoral Neck: 0.557 g/cm2, T-score -2.6, Z-score -0.7 Left Total Hip: 0.791 g/cm2, T-score -1.2, Z-score 0.4 Left Forearm, Distal 1/3 of Radius: 0.615 g/cm2, T-score -1.2, Z-score 1.1 No comparison data - the patient has not had a previous bone density in the [facility] or the previous bone density was performed on a different DXA machine (new, updated model or different location) within the [facility]. VERTEBRAL FRACTURE ASSESSMENT Not performed. TRABECULAR BONE ASSESSMENT TBS not performed: not ordered IMPRESSION: THE LOWEST T-SCORE IS -2.6 IN THE LEFT HIP 1) DIAGNOSIS (based on BMD alone): OSTEOPOROSIS Caution: Medical conditions other than osteoporosis may cause low bone density, such as osteomalacia or renal osteodystrophy. Clinical correlation is necessary. 2) FRACTURE RISK (based on FRAX): 10-year absolute fracture risk: - major osteoporotic fracture = 14 % - hip fracture = 3.8 % - A diagnosis of Osteoporosis, a 10 year probability of hip fracture greater than or equal to 3% or a 10 year probability of any major osteoporosis-related fracture greater than or equal to 20% should be considered for treatment. - DXA scanner generated FRAX calculations may slightly differ from online FRAX calculations due to differences in software versions. - All recommendations and calculations are to be considered as guidelines and should not replace sound clinical judgement - Caution: Fracture risk may be increased independent of BMD in patients with corticosteroid use, age greater than 65 years, or a history of prior fragility fracture. RECOMMENDATIONS: Follow-up in 2 years or as clinically indicated. Patients that are taking corticosteroids, are transplant recipients or have hyperparathyroidism should have annual follow-up. Follow-up scans should always be done on the same machine for accurate comparison. FOR MORE INFORMATION ABOUT DIAGNOSIS AND TREATMENT: [facility] Center for Osteoporosis and Metabolic Bone Disease:? www.ccf.org/arthritis/ost eo National Osteoporosis Foundation:? www.nof.org International Society of Clinical Densitometry www.iscd.org Construction Executive: LOUIS Transcribe Date/Time: Sep 05 2024 3:20P Dictated by : CAIT MACIAS MD This examination was interpreted and the report reviewed and electronically signed by: CAIT MACIAS MD on Sep 05 2024 3:26PM EST [id number] -2.6 [facility] CNOVSPon 09-05-2024 CNOVSP Visit (SP) Office (HEMAWS) ----- JANESSA BARON ([id number]) 1950 F Date Time Provider Department 09/05/24 10:30 AM FANNY BARRON During your visit today, we recorded the following information about you: Temperature Pulse Blood pressure Weight 98.7 degrees 92/minute 159/75 91.9 kg Height 1.58 m Fanny Barron 09/06/2024 1:37 PM Signed Progress Note Janessa Baron 1950 Encounter date: 09/05/2024 HPI: Janessa Baron is a 74 year old female with PMHx of HTN, HLD, a-fib, CAD, asthma, T2DM, spinal stenosis and DDD. Presents today as a referral by her PCP Dr. Bacon for further management of iron deficiency anemia identified on preoperative exam. She reports fatigue today. Feels a bit overwhelmed by everything going on at the moment with appts and drs visits between her and her . Noted 5 surgeries all in 1 year, triple bypass 11/26/2022, torn meniscus, L carotid surg 01/25/24, cholecystectomy. She was started on IV iron, has received 2 doses out of 3 planned. Tolerating well thus fa but has not noticed any improvements in symptoms at this time. Has never received IV iron or blood transfusions in the past that she is aware of. No PO iron use. She is on PPI. Denies current CP, SOB, CP. No unintentional weight loss, appetite is good. Just a lot going on recently. No energy. Denies headaches or dizziness. Denies fevers. Current UTI currently on macrobid, started on Ady. Carpal tunnel in L hand. Endorses RLS. No PICA or ice cravings. Denies abd pains. No changes in bowel habits. Denies hematochezia, hematuria. Was supposed to have back surgery next week which was postponed due to elevated A1C. Constant pain every day L4/L5l. Limiting mobility. She is currently working to lower A1C. Due for repeat colonoscopy. Encouraged her to schedule. Sister with colon ca. Denies personal hx od cancers, blood or bleeding disorders. PAST MEDICAL HISTORY Diagnosis Date Asthma Carotid stenosis Delayed emergence from general anesthesia deep anesthesia 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) 05/22/2022 Diabetes mellitus, type 2 (HCC) Hyperlipidemia Hypertension Sliding hiatal hernia PAST SURGICAL HISTORY Procedure Laterality Date BREAST BIOPSY Bilateral benign BREAST SURGERY HX CHOLECYSTECTOMY COLONOSCOPY 05/2017 COLONOSCOPY SCREENING 2019 EGD 04/2017 EGD DIAGNOSTIC 01/2023 F SALPINGO-OOPHORECTOMY Left IR RT HEART CATH 11/10/2022 PAST SURGICAL HISTORY OF left TM repair PAST SURGICAL HISTORY OF Left 12/1991 Repair of hole in left eardrum PAST SURGICAL HISTORY OF 06/03/1998 Scalp - removal of sebaceaous cyst PAST SURGICAL HISTORY OF 11/26/2022 Triple Bypass PAST SURGICAL HISTORY OF 01/25/2024 Left carotid artery stint REMV CATARACT EXTRACAP,INSERT LENS Left REMV CATARACT EXTRACAP,INSERT LENS Right TUBAL LIGATION Current Outpatient Medications Medication Sig Dispense Refill HYDROcodone-acetaminophen (NORCO) 5-325 mg per tablet Take 1 tablet by mouth every 8 hours as needed for pain. benzocaine/benzethon Cl (DERMOPLAST ANTIBACTERIAL TOPICAL) Apply to affected area as needed. lidocaine (SALONPAS) 4 % patch Apply 1 application as directed once daily. empagliflozin (JARDIANCE) 10 mg tablet Take 1 tablet by mouth daily with breakfast. 90 tablet 3 albuterol (PROVENTIL) 2.5 mg /3 mL (0.083 %) nebulizer solution INHALE WITH 1 VIAL IN NEBULIZER EVERY SIX HOURS NEEDED 90 mL 3 rosuvastatin (CRESTOR) 10 mg tablet Take 1 tablet by mouth daily at bedtime. 90 tablet 3 metFORMIN (GLUCOPHAGE) 500 mg tablet Take 2 tablets by mouth two times a day with meals. 360 tablet 3 glimepiride (AMARYL) 4 mg tablet Take 1 tablet by mouth daily with breakfast. 90 tablet 3 montelukast (SINGULAIR) 10 mg tablet Take 1 tablet by mouth daily at bedtime. 90 tablet 3 omeprazole (PRILOSEC) 40 mg capsule Take 1 capsule by mouth two times a day. 180 capsule 3 pioglitazone (ACTOS) 45 mg tablet Take 1 tablet by mouth once daily. 90 tablet 3 lisinopril-hydroCHLOROthi azide (ZESTORETIC) 20-12.5 mg per tablet Take 1 tablet by mouth once daily. 90 tablet 3 NYSTOP powder APPLY TO THE AFFECTED AREA(S) THREE TIMES DAILY budesonide (PULMICORT) 0.5 mg/2 mL nebulizer solution mix 2 ampules with saline and apply twice daily aspirin, enteric coated (ASPIRIN, ENTERIC COATED) 81 mg EC tablet Take 81 mg by mouth once daily. traMADol (ULTRAM) 50 mg tablet Take 50 mg by mouth every 6 hours as needed for pain. diclofenac (VOLTAREN) 1 % topical gel Apply to affected area four times daily. mag carb/aluminum hydrox/algin (GAVISCON ORAL) Take 1 tablet by mouth as needed. cetirizine HCl (ZYRTEC ORAL) Take 1 tablet by mouth once daily. nitrofurantoin monohydrate and macrocrystal (MACROBID) 100 mg capsule Take 1 capsule by mouth two times a day for 5 days. (Patient not taking: Reported (more content not included)... Normal [facility] DXA Skeletal system.axial Vi ews for bone densityOrdered By: [facility] Provider on 09-05-2024 LOWEST T-SCORE -2.6 [facility] DXA Skeletal system.axial Vi ews for bone densityon 09-05-2024 IMPRESSION: THE LOWEST T-SCORE IS -2.6 IN THE LEFT HIP 1) DIAGNOSIS (based on BMD alone): OSTEOPOROSIS Caution: Medical conditions other than osteoporosis may cause low bone density, such as osteomalacia or renal osteodystrophy. Clinical correlation is necessary. 2) FRACTURE RISK (based on FRAX): 10-year absolute fracture risk: - major osteoporotic fracture = 14 % - hip fracture = 3.8 % - A diagnosis of Osteoporosis, a 10 year probability of hip fracture greater than or equal to 3% or a 10 year probability of any major osteoporosis-related fracture greater than or equal to 20% should be considered for treatment. - DXA scanner generated FRAX calculations may slightly differ from online FRAX calculations due to differences in software versions. - All recommendations and calculations are to be considered as guidelines and should not replace sound clinical judgement - Caution: Fracture risk may be increased independent of BMD in patients with corticosteroid use, age greater than 65 years, or a history of prior fragility fracture. RECOMMENDATIONS: Follow-up in 2 years or as clinically indicated. Patients that are taking corticosteroids, are transplant recipients or have hyperparathyroidism should have annual follow-up. Follow-up scans should always be done on the same machine for accurate comparison. FOR MORE INFORMATION ABOUT DIAGNOSIS AND TREATMENT: [facility] Center for Osteoporosis and Metabolic Bone Disease:? www.ccf.org/arthritis/ost eo National Osteoporosis Foundation:? www.nof.org International Society of Clinical Densitometry www.iscd.org Construction Executive: LOUIS Transcribe Date/Time: Sep 05 2024 3:20P Dictated by : CAIT MACIAS MD This examination was interpreted and the report reviewed and electronically signed by: CAIT MACIAS MD on Sep 05 2024 3:26PM [facility] RADIOLOGY * * *Final Report* * * DATE OF EXAM: Sep 05 2024 2:50PM B 0804 - BD DXA - AXIAL SKELETON B / PROCEDURE REASON: M81.0 * * * * Physician Interpretation * * * * EXAMINATION: DXA BONE DENSITOMETRY BD DXA - AXIAL SKELETON PATIENT DEMOGRAPHICS: Age: 74 years, Gender: Female SCANNER INFORMATION: DXA Model: [place] [place] [employer] - [employer] [id number] Date Scanned: 09/05/2024 2:50 PM CLINICAL HISTORY: DIAGNOSTIC M81.0. RISK FACTORS FOR OSTEOPOROSIS AND ASSOCIATED FRACTURES REPORTED BY THIS PATIENT: Please refer to Bone Health Questionnaire in the EMR CURRENT THERAPY: Please refer to Bone Health Questionnaire in the EMR TECHNICAL LIMITATIONS: RESULTS: Lumbar spine (L1, L2, L3, L4): 1.018 g/cm2, T-score -0.3, Z-score 2.0 Left Femoral Neck: 0.557 g/cm2, T-score -2.6, Z-score -0.7 Left Total Hip: 0.791 g/cm2, T-score -1.2, Z-score 0.4 Left Forearm, Distal 1/3 of Radius: 0.615 g/cm2, T-score -1.2, Z-score 1.1 No comparison data - the patient has not had a previous bone density in the [facility] or the previous bone density was performed on a different DXA machine (new, updated model or different location) within the [facility]. VERTEBRAL FRACTURE ASSESSMENT Not performed. TRABECULAR BONE ASSESSMENT TBS not performed: not ordered [facility] Provider, Dee Augustin - 09/05/2024 * * *Final Report* * * DATE OF EXAM: Sep 05 2024 2:50PM RMB 0804 - BD DXA - AXIAL SKELETON B / PROCEDURE REASON: M81.0 * * * * Physician Interpretation * * * * EXAMINATION: DXA BONE DENSITOMETRY BD DXA - AXIAL SKELETON PATIENT DEMOGRAPHICS: Age: 74 years, Gender: Female SCANNER INFORMATION: DXA Model: [place] [employer] - [employer] Horizon [id number] Date Scanned: 09/05/2024 2:50 PM CLINICAL HISTORY: DIAGNOSTIC M81.0. RISK FACTORS FOR OSTEOPOROSIS AND ASSOCIATED FRACTURES REPORTED BY THIS PATIENT: Please refer to Bone Health Questionnaire in the EMR CURRENT THERAPY: Please refer to Bone Health Questionnaire in the EMR TECHNICAL LIMITATIONS: RESULTS: Lumbar spine (L1, L2, L3, L4): 1.018 g/cm2, T-score -0.3, Z-score 2.0 Left Femoral Neck: 0.557 g/cm2, T-score -2.6, Z-score -0.7 Left Total Hip: 0.791 g/cm2, T-score -1.2, Z-score 0.4 Left Forearm, Distal 1/3 of Radius: 0.615 g/cm2, T-score -1.2, Z-score 1.1 No comparison data - the patient has not had a previous bone density in the [facility] or the previous bone density was performed on a different DXA machine (new, updated model or different location) within the [facility]. VERTEBRAL FRACTURE ASSESSMENT Not performed. TRABECULAR BONE ASSESSMENT TBS not performed: not ordered IMPRESSION IMPRESSION: THE LOWEST T-SCORE IS -2.6 IN THE LEFT HIP 1) DIAGNOSIS (based on BMD alone): OSTEOPOROSIS Caution: Medical conditions other than osteoporosis may cause low bone density, such as osteomalacia or renal osteodystrophy. Clinical correlation is necessary. 2) FRACTURE RISK (based on FRAX): 10-year absolute fracture risk: - major osteoporotic fracture = 14 % - hip fracture = 3.8 % - A diagnosis of Osteoporosis, a 10 year probability of hip fracture greater than or equal to 3% or a 10 year probability of any major osteoporosis-related fracture greater than or equal to 20% should be considered for treatment. - DXA scanner generated FRAX calculations may slightly differ from online FRAX calculations due to differences in software versions. - All recommendations and calculations are to be considered as guidelines and should not replace sound clinical judgement - Caution: Fracture risk may be increased independent of BMD in patients with corticosteroid use, age greater than 65 years, or a history of prior fragility fracture. RECOMMENDATIONS: Follow-up in 2 years or as clinically indicated. Patients that are taking corticosteroids, are transplant recipients or have hyperparathyroidism should have annual follow-up. Follow-up scans should always be done on the same machine for accurate comparison. FOR MORE INFORMATION ABOUT DIAGNOSIS AND TREATMENT: [facility] Center for Osteoporosis and Metabolic Bone Disease:? www.ccf.org/arthritis/ost eo National Osteoporosis Foundation:? www.nof.org International Society of Clinical Densitometry www.iscd.org Construction Executive: [place] Transcribe Date/Time: Sep 05 2024 3:20P Dictated by : CAIT MACIAS MD This examination was interpreted and the report reviewed and electronically signed by: CAIT MACIAS MD on Sep 05 2024 3:26PM [facility] Study observation (narrative) [facility] CNOVon 09-04-2024 CNOV Office Visit (AMIRAHMAS ) ----- JANESSA BARON ([id number]) 1950 F Date Time Provider Department 09/04/24 3:10 PM KALI BACON During your visit today, we recorded the following information about you: Temperature Pulse Respiration Blood pressure 96.9 degrees 98/minute 18/minute 128/80 Weight Height 90.7 kg 1.6 m Kali Bacon, MD 09/04/2024 2:34 PM Signed Subjective Janessa Baron is a 74 year old female. Janessa presents today for follow-up for her diabetes. Her most recent A1c obtained 07 17 was 7.2. However she states in her surgeon's office her A1c was 7.7. He has refused to do surgery until her A1c is at 7. She reports her diabetic diet has been poor recently. Additionally she complains of suspicious mole to her left shoulder. Review of Systems Constitutional: Negative. HENT: Negative. [...] Never Smokeless tobacco: Never Vaping Use Vaping status: Never Used Substance Use Topics Alcohol use: Not Currently Drug use: Not Currently ALLERGIES Allergen Reactions Metoclopramide Unknown Sulfamethoxazole-Tr* Unknown Morphine Unknown Acetaminophen Unknown Augmentin [Amoxicil* Rash Cefzil [Cefprozil] Rash Dayquil Allergy 12-* Hives Dextromethorphan Hives Doxylamine Hives Erythromycin Rash Iodinated Contrast * Hives Ivp Dye [Iodine] Unknown knot on head Lincomycin Rash Pseudoephedrine Hives Reglan [Metoclopram* Intolerance Cfsxqbu-Zqu-Ebn Red* Unknown Other reaction(s): Other Tequin [Gatifloxaci* Rash Doxycycline Unknown, Vomiting MEDICATIONS: nitrofurantoin monohydrate and macrocrystal (MACROBID) 100 mg capsule Take 1 capsule by mouth two times a day for 5 days. albuterol (PROVENTIL) 2.5 mg /3 mL (0.083 %) nebulizer solution INHALE WITH 1 VIAL IN NEBULIZER EVERY SIX HOURS NEEDED rosuvastatin (CRESTOR) 10 mg tablet Take 1 tablet by mouth daily at bedtime. metFORMIN (GLUCOPHAGE) 500 mg tablet Take 2 tablets by mouth two times a day with meals. blood sugar diagnostic (ONETOUCH ULTRA TEST) test strip Monitor blood sugar daily and as needed. glimepiride (AMARYL) 4 mg tablet Take 1 tablet by mouth daily with breakfast. montelukast (SINGULAIR) 10 mg tablet Take 1 tablet by mouth daily at bedtime. omeprazole (PRILOSEC) 40 mg capsule Take 1 capsule by mouth two times a day. pioglitazone (ACTOS) 45 mg tablet Take 1 tablet by mouth once daily. lisinopril-hydroCHLOROthi azide (ZESTORETIC) 20-12.5 mg per tablet Take 1 tablet by mouth once daily. ketoconazole (NIZORAL) 2 % cream Apply to affected area once daily for 10 days. NYSTOP powder APPLY TO THE AFFECTED AREA(S) THREE TIMES DAILY sucralfate (CARAFATE) 1 gram tablet Take 1 g by mouth three times a day. 1/2 hour before meals budesonide (PULMICORT) 0.5 mg/2 mL nebulizer solution mix 2 ampules with saline and apply twice daily gel base no.41, bulk, (HYDROGEL) gel 1 Dose once daily. lancets (ONE TOUCH DELICA) 33 gauge 1 Each once daily. blood sugar diagnostic (ONETOUCH ULTRA TEST) test strip 1 Strip before meals and at bedtime. Use as instructed aspirin, enteric coated (ASPIRIN, ENTERIC COATED) 81 mg EC tablet Take 81 mg by mouth once daily. lancets (TRUEPLUS LANCETS) 33 gauge Monitor blood sugar daily and as needed. traMADol (ULTRAM) 50 mg tablet Take 50 mg by mouth every 6 hours as needed for pain. diclofenac (VOLTAREN) 1 % topical gel Apply to affected area four times daily. mag carb/aluminum hydrox/algin (GAVISCON ORAL) Take by mouth. cetirizine HCl (ZYRTEC ORAL) Take by mouth. ubidecarenone (CO Q-10 ORAL) Take by mouth. empagliflozin (JARDIANCE) 10 mg tablet Take 1 tablet by mouth daily with breakfast. Allergies, past surgical history, family history and past medical history were reviewed per this encounter. Medications were reviewed and verified. (more content not included)... [facility] Bacteria Ur Culton 5 Bacteria identified Cx Nom (U) CULTURE, URINE: Mixed microbiota, including predominantly: ORGANISM ID: 1 >=100,000 CFU/ml Escherichia coli ORGANISM ID: 1 (ESCHERICHIA COLI) ANTIBIOTIC INTERPRETATION OTTONIEL STATUS REFERENCE RANGE Ampicillin R >=32 F Susceptible <=8 , Intermediate >8 , Resistant >16 Cefazolin S <=4 F Susceptible 0-16 , Intermediate <0 or >16 , Resistant >16 For uncomplicated urinary tract infections, cefazolin results can be used to predict susceptibility or resistance to cephalexin. Ceftriaxone S <=1 F Susceptible <=1 , Intermediate >1 , Resistant >=4 Cefepime S <=1 F Susceptible <=2 , Susceptible-Dose Dependent >2 , Resistant >=16 Ertapenem S <=0.5 F Susceptible <=0.5 , Intermediate >.5 , Resistant >1 Meropenem S <=0.25 F Susceptible <=1 , Intermediate >1 , Resistant >2 Ampicillin/Sulbact I 16 F Susceptible <=8 , Intermediate >8 , Resistant >16 Piperacillin/Tazobac S <=4 F Susceptible <16 , Susceptible-Dose Dependent >=16 , Resistant >=32 Gentamicin S <=1 F Susceptible <=2 , Intermediate >2 , Resistant >=8 Tobramycin S <=1 F Susceptible <4 , Intermediate >=4 , Resistant >=8 Trimeth sulfameth S <=20 F Susceptible <=40 , Resistant >40 Ciprofloxacin S <=0.25 F Susceptible <0.5 , Intermediate >=.5 , Resistant >=1 Nitrofurantoin S <=16 F Susceptible <=32 , Intermediate >32 , Resistant >64 Abnormal [facility] Comment on above: Performed By: #### 6 30-4 ####[facility] LABCLIA [id number] [address] OF [facility] CNOVon 09-03-2024 CNOV Office Visit (UCWSTR ) ----- JANESSA BARON ([id number]) 1950 F Date Time Provider Department 09/03/24 8:15 AM MIKE CH[facility] During your visit today, we recorded the following information about you: Temperature Pulse Respiration Blood pressure 98.4 degrees 94/minute 20/minute 153/69 Weight 91 kg Mike Chanel PA 09/03/2024 8:36 AM Signed This note was created using [employer]. Subjective Janessa Baron is a 74 year old female. HPI 74-year-old female presents for UTI symptoms. Patient states she has been having burning with urination, pressure and frequency since yesterday. She denies any abdominal pain, back pain, vomiting or fevers. She has had UTIs in the past, none recently. She denies any blood in the urine. No history of kidney stones. No other complaint. PAST MEDICAL HISTORY Diagnosis Date Asthma Carotid [...] left TM repair TUBAL LIGATION ALLERGIES Metoclopramide, Sulfamethoxazole-Trimetho prim, Morphine, Acetaminophen, Augmentin [Amoxicillin-Pot Clavulanate], Cefzil [Cefprozil], Dayquil Allergy 12-Hr, Dextromethorphan, Doxylamine, Erythromycin, Iodinated Contrast Media, Ivp Dye [Iodine], Lincomycin, Pseudoephedrine, Reglan [Metoclopramide Hcl], Kmtrziq-Nea-Ngp Reductase Inhibitors, Tequin [Gatifloxacin], and Doxycycline MEDICATIONS albuterol (PROVENTIL) 2.5 mg /3 mL (0.083 %) nebulizer solution INHALE WITH 1 VIAL IN NEBULIZER EVERY SIX HOURS NEEDED rosuvastatin (CRESTOR) 10 mg tablet Take 1 tablet by mouth daily at bedtime. metFORMIN (GLUCOPHAGE) 500 mg tablet Take 2 tablets by mouth two times a day with meals. blood sugar diagnostic (ONETOUCH ULTRA TEST) test strip Monitor blood sugar daily and as needed. glimepiride (AMARYL) 4 mg tablet Take 1 tablet by mouth daily with breakfast. montelukast (SINGULAIR) 10 mg tablet Take 1 tablet by mouth daily at bedtime. omeprazole (PRILOSEC) 40 mg capsule Take 1 capsule by mouth two times a day. pioglitazone (ACTOS) 45 mg tablet Take 1 tablet by mouth once daily. lisinopril-hydroCHLOROthi azide (ZESTORETIC) 20-12.5 mg per tablet Take 1 tablet by mouth once daily. ketoconazole (NIZORAL) 2 % cream Apply to affected area once daily for 10 days. NYSTOP powder APPLY TO THE AFFECTED AREA(S) THREE TIMES DAILY sucralfate (CARAFATE) 1 gram tablet Take 1 g by mouth three times a day. 1/2 hour before meals budesonide (PULMICORT) 0.5 mg/2 mL nebulizer solution mix 2 ampules with saline and apply twice daily gel base no.41, bulk, (HYDROGEL) gel 1 Dose once daily. lancets (ONE TOUCH DELICA) 33 gauge 1 Each once daily. blood sugar diagnostic (ONETOUCH ULTRA TEST) test strip 1 Strip before meals and at bedtime. Use as instructed aspirin, enteric coated (ASPIRIN, ENTERIC COATED) 81 mg EC tablet Take 81 mg by mouth once daily. lancets (TRUEPLUS LANCETS) 33 gauge Monitor blood sugar daily and as needed. traMADol (ULTRAM) 50 mg tablet Take 50 mg by mouth every 6 hours as needed for pain. diclofenac (VOLTAREN) 1 % topical gel Apply to affected area four times daily. mag carb/aluminum hydrox/algin (GAVISCON ORAL) Take by mouth. cetirizine HCl (ZYRTEC ORAL) Take by mouth. ubidecarenone (CO Q-10 ORAL) Take by mouth. FAMILY HISTORY Problem Relation Age of Onset Colon Cancer Sister 67 Thyroid Cancer Brother Cancer Sister vaginal Social History Tobacco Use Smoking status: Never Smokeless tobacco: Never Vaping Use Vaping status: Never Used Substance Use Topics Alcohol use: Not Currently Drug use: Not Currently Review of Systems Constitutional: Negative for chills and fever. HENT: Negative for congestion, ear pain and sore throat. Respiratory: Negative for cough and shortness of breath. Cardiovascular: Negative for chest pain. Gastrointestinal: Negative for diarrhea and vomiting. Genitourinary: Positive for dysuria, frequency and urgency. Objective BP 153/69 Pulse 94 Temp 36.9 ?C (98.4 ?F) Resp 20 Wt 91 kg (200 lb 9.9 oz) SpO2 95% BMI 35.54 kg/m? Physical Exam Vitals and nursing note reviewed. Constitutional: General: She is not in acute distress. Appearance: Normal appearance. She is not toxic-appearing. HENT: Nose: Nose normal. Mouth/Throat: Mouth: Mucous membranes are moist. Eyes: Conjunctiva/sclera: Conjunctivae normal. Cardiovascular: Rate and Rhythm: Normal rate and regular rhythm. Pulmonary: E (more content not included)... Normal [facility] UA DIP, URINE (POC)on 2024 BILIRUBIN UA (POCT) Negative Negative [facility] CLARITY UA (POCT) Turbid [facility] COLOR UA (POCT) Yellow [facility] GLUCOSE UA (POCT) Negative Negative mg/dL [facility] Hemoglobin Ql (U) Trace-intact Abnormal Negative [facility] Interpretation and review of laboratory results Abnormal [facility] KETONE UA (POCT) Negative Negative mg/dL [facility] LEUKOCYTES UA (POCT) Small Abnormal Negative [facility] NITRITE UA (POCT) Negative Negative [facility] PH UA (POCT) 5.5 4.5 - 8.0 [facility] Protein Ql (U) Negative Negative mg/dL [facility] SPECIFIC GRAVITY UA (POCT) 1.010 1.005 - 1.030 [facility] UROBILINOGEN UA (POCT) 0.2 Normal E.U./dL [facility] Location:[address], [id number] [place] [address] POINT OF CARE [facility] Hepatitis A AB, Totalon 08-16 HEPATITIS A,TOT Negative Normal Negative [facility] Comment on above: Result Comment: Comm ent: The HAV total antibody assay detects both IgG and IgM but does not differentiate between them. A negative result suggests susceptibility to infection. A positive result could be due to vaccination, previously resolved infection or active infection. Testing for HAV IgM should be performed if active HAV infection is suspected. [facility] offers profiles that will automatically reflex positive HAV total antibody results to IgM (e.g., panel #[id number] HAV Antibody w/ Rfx). Performed at: [address] [id number] Computer Programmer Analyst: Guero Dawson PhD, Phone: [phone] Performed By: #### L 3410.9998 #### [facility] [address] [place], [place], [id number] MRSA/SAID NASAL SCREENon MRSA+SAID SCRN Reason for Exam: Ellen angely MRSA MRSA Negative S. AUREUS S. aureus Negative Normal [facility] Comment on above: Performed By: #### L 3410.9998 #### [facility] [address] [place], [place], [id number] Absolute neutrophil countOrd ered By: Dominic Issa on 08-31-2024 Neutrophils (Bld) [#/Vol] 7.1 10*3/uL 2.0-7.7 [facility] Basic Metabolic Profile (BMP )on 08-31-2024 BUN/CRE 30.0 RATIO High 10-20 [facility] Comment on above: Performed By: #### L 3890.6200, L3100.0300, L100.0100, M100.651, L3890.6005, BTSPAT, L500.2500, L3890.6300 #### [facility] [address] [place], [address] CA,Total 9.5 mg/dL Normal 8.5-10.1 [facility] Comment on above: Performed By: #### L 3890.6200, L3100.0300, L100.0100, M100.651, L3890.6005, BTSPAT, L500.2500, L3890.6300 #### [facility] [address] [place], [address] Chloride [Moles/Vol] 97 mmol/L Low 98-107 [facility] Comment on above: Performed By: #### L 3890.6200, L3100.0300, L100.0100, M100.651, L3890.6005, BTSPAT, L500.2500, L3890.6300 #### [facility] [address] [place], [address] CO2 [Moles/Vol] 26.0 mmol/L Normal 21.0-32.0 [facility] Comment on above: Performed By: #### L 3890.6200, L3100.0300, L100.0100, M100.651, L3890.6005, BTSPAT, L500.2500, L3890.6300 #### [facility] [address] [place], [address] Creatinine [Mass/Vol] 0.90 mg/dL Normal 0.55-1.02 [facility] Comment on above: Result Comment: The validity of the calculated GFR GFRAA in patients over 70 years has not been determined. Clinical correlation is essential. Performed By: #### L 3890.6200, L3100.0300, L100.0100, M100.651, L3890.6005, BTSPAT, L500.2500, L3890.6300 #### [facility] [address] [place], [address] EST GFR - AA 79 mL/min Normal >60 [facility] Comment on above: Result Comment: Afri can [place] GFR Calc Performed By: #### L 3890.6200, L3100.0300, L100.0100, M100.651, L3890.6005, BTSPAT, L500.2500, L3890.6300 #### [facility] [address] [place], [address] GAP 9 Normal 5-15 [facility] Comment on above: Performed By: #### L 3890.6200, L3100.0300, L100.0100, M100.651, L3890.6005, BTSPAT, L500.2500, L3890.6300 #### [facility] [address] [place], [place], [id number] GFR/1.73 sq M.predicted among non-blacks MDRD (S/P/Bld) [Vol rate/Area] 65 mL/min/{1.73_m2} Normal >60 [facility] Comment on above: Result Comment: Non- GFR Calc Performed By: #### L 3890.6200, L3100.0300, L100.0100, M100.651, L3890.6005, BTSPAT, L500.2500, L3890.6300 #### [facility] [address] [place], [address] Glucose [Mass/Vol] 163 mg/dL High 74-106 [facility] Comment on above: Result Comment: Fast ing Glucose result greater than or equal to 126 mg/dL suggests DIABETES MELLITUS per A.D.A. criteria. Performed By: #### L 3890.6200, L3100.0300, L100.0100, M100.651, L3890.6005, BTSPAT, L500.2500, L3890.6300 #### [facility] [address] [place], [address] Potassium [Moles/Vol] 3.7 mmol/L Normal 3.5-5.1 [facility] Comment on above: Performed By: #### L 3890.6200, L3100.0300, L100.0100, M100.651, L3890.6005, BTSPAT, L500.2500, L3890.6300 #### [facility] [address] [place], [address] Sodium [Moles/Vol] 132 mmol/L Low 136-145 [facility] Comment on above: Performed By: #### L 3890.6200, L3100.0300, L100.0100, M100.651, L3890.6005, BTSPAT, L500.2500, L3890.6300 #### [facility] [address] [place], [address] Urea nitrogen [Mass/Vol] 27 mg/dL High 03-02 [facility] Comment on above: Performed By: #### L 3890.6200, L3100.0300, L100.0100, M100.651, L3890.6005, BTSPAT, L500.2500, L3890.6300 #### [facility] [address] [place], [address] Basophil percentageOrdered B y: Dominic Issa on 08-31-2024 Basophils/100 WBC (Bld) 0.5 % 0- [facility] Blood urea nitrogen (BUN)/cr eatinine ratioOrdered By: Dominic Issa on 08-31-2024 Urea nitrogen/Creatinine [Mass ratio] 30.0 mg/mg High - [facility] CBC W/Diff, Automatedon 08-16 Absolute Lymph 2.62 X10 3/uL Normal 0.83-4.51 [facility] Comment on above: Performed By: #### L 3890.6200, L3100.0300, L100.0100, M100.651, L3890.6005, BTSPAT, L500.2500, L3890.6300 #### [facility] [address] [place], [address] Absolute Neut 7.1 X10 3/uL Normal 2.0-7.7 [facility] Comment on above: Performed By: #### L 3890.6200, L3100.0300, L100.0100, M100.651, L3890.6005, BTSPAT, L500.2500, L3890.6300 #### [facility] [address] [place], [address] Basophils/100 WBC (Bld) 0.5 % Normal 0-1 [facility] Comment on above: Performed By: #### L 3890.6200, L3100.0300, L100.0100, M100.651, L3890.6005, BTSPAT, L500.2500, L3890.6300 #### [facility] [address] [place], [address] Eosinophils/100 WBC (Bld) 1.7 % Normal 0-5 [facility] Comment on above: Performed By: #### L 3890.6200, L3100.0300, L100.0100, M100.651, L3890.6005, BTSPAT, L500.2500, L3890.6300 #### [facility] [address] [place], [address] Erythrocyte distribution width (RBC) [Ratio] 16.6 % High 11.6-14.6 [facility] Comment on above: Performed By: #### L 3890.6200, L3100.0300, L100.0100, M100.651, L3890.6005, BTSPAT, L500.2500, L3890.6300 #### [facility] [address] [place], [address] Hematocrit (Bld) [Volume fraction] 32.5 % Low 37-47 [facility] Comment on above: Performed By: #### L 3890.6200, L3100.0300, L100.0100, M100.651, L3890.6005, BTSPAT, L500.2500, L3890.6300 #### [facility] [address] [place], [address] Hemoglobin (Bld) [Mass/Vol] 9.4 g/dL Low 12.0-15.0 [facility] Comment on above: Performed By: #### L 3890.6200, L3100.0300, L100.0100, M100.651, L3890.6005, BTSPAT, L500.2500, L3890.6300 #### [facility] [address] [place], [address] IG% 0.400 Normal 0.0-0.9 [facility] Comment on above: Result Comment: IG% - Immature Granulocytes (promyelocytes, myelocytes and metamyelocytes) > 1% indicates that a LEFT SHIFT is Present. Performed By: #### L 3890.6200, L3100.0300, L100.0100, M100.651, L3890.6005, BTSPAT, L500.2500, L3890.6300 #### [facility] [address] [place], [address] Lymphocytes/100 WBC (Bld) 24.1 % Normal 19-41 [facility] Comment on above: Performed By: #### L 3890.6200, L3100.0300, L100.0100, M100.651, L3890.6005, BTSPAT, L500.2500, L3890.6300 #### [facility] [address] [place], [address] MCH (RBC) [Entitic mass] 20.4 pg Low 27.0-32.0 [facility] Comment on above: Performed By: #### L 3890.6200, L3100.0300, L100.0100, M100.651, L3890.6005, BTSPAT, L500.2500, L3890.6300 #### [facility] [address] [place], [address] MCHC (RBC) [Mass/Vol] 28.9 g/dL Low 32-36 [facility] Comment on above: Performed By: #### L 3890.6200, L3100.0300, L100.0100, M100.651, L3890.6005, BTSPAT, L500.2500, L3890.6300 #### [facility] [address] [facility] [place], [address] MCV (RBC) [Entitic vol] 70.7 fL Low 81-99 [facility] Comment on above: Performed By: #### L 3890.6200, L3100.0300, L100.0100, M100.651, L3890.6005, BTSPAT, L500.2500, L3890.6300 #### [facility] [address] [facility] [place], [address] Monocytes/100 WBC (Bld) 7.9 % Normal 0-10 [facility] Comment on above: Performed By: #### L 3890.6200, L3100.0300, L100.0100, M100.651, L3890.6005, BTSPAT, L500.2500, L3890.6300 #### [facility] [address] [place], [address] Neutrophils/100 WBC (Bld) 65.4 % Normal 47-70 [facility] Comment on above: Performed By: #### L 3890.6200, L3100.0300, L100.0100, M100.651, L3890.6005, BTSPAT, L500.2500, L3890.6300 #### [facility] [address] [place], [address] Nucleated RBC (Bld) [#/Vol] 0 10*3/uL Normal 0-5 [facility] Comment on above: Performed By: #### L 3890.6200, L3100.0300, L100.0100, M100.651, L3890.6005, BTSPAT, L500.2500, L3890.6300 #### [facility] [address] [place], [address] Platelet mean volume (Bld) [Entitic vol] 9.2 fL Normal 6.2-12.0 [facility] Comment on above: Performed By: #### L 3890.6200, L3100.0300, L100.0100, M100.651, L3890.6005, BTSPAT, L500.2500, L3890.6300 #### [facility] [address] [place], [address] Platelets (Bld) [#/Vol] 517 10*3/uL High 150-450 [facility] Comment on above: Performed By: #### L 3890.6200, L3100.0300, L100.0100, M100.651, L3890.6005, BTSPAT, L500.2500, L3890.6300 #### [facility] [address] [place], [address] RBC (Bld) [#/Vol] 4.60 10*6/uL Normal 4.2-5.4 [facility] Comment on above: Performed By: #### L 3890.6200, L3100.0300, L100.0100, M100.651, L3890.6005, BTSPAT, L500.2500, L3890.6300 #### [facility] [address] [place], [address] RDW SD 41.8 fl Normal 35.1-43.9 [facility] Comment on above: Performed By: #### L 3890.6200, L3100.0300, L100.0100, M100.651, L3890.6005, BTSPAT, L500.2500, L3890.6300 #### [facility] [address] [place], [address] WBC (Bld) [#/Vol] 10.9 10*3/uL Normal 4.4-11.0 [facility] Comment on above: Performed By: #### L 3890.6200, L3100.0300, L100.0100, M100.651, L3890.6005, BTSPAT, L500.2500, L3890.6300 #### [facility] [address] [facility] [place], [address] Carbon dioxide measurementOr dered By: Dominic Issa on 08-31-2024 CO2 [Moles/Vol] 26.0 mmol/L 21.0-32.0 [facility] Chloride measurementOrdered By: Dominic Issa on 08-31-2024 Chloride [Moles/Vol] 97 mmol/L Low 98-107 [facility] Eosinophil percentageOrdered By: Dominic Issa on 08-31-2024 Eosinophils/100 WBC (Bld) 1.7 % 0-5 [facility] Erythrocyte distribution wid th ratioOrdered By: Dominic Issa on 08-31-2024 Erythrocyte distribution width (RBC) [Ratio] 16.6 % High 11.6-14.6 [facility] Erythrocyte distribution wid th standard deviationOrdered By: Dominic Issa on 08-31-2024 Erythrocyte distribution width (RBC) [Entitic vol] 41.8 fL 35.1-43.9 [facility] Estimated glomerular filtrat ion rate (GFR) AmericanOrdered By: Dominic Issa on 08-31-2024 Estimated GFR (MDRD) Amer 79 mL/min >60 [facility] Comment on above: GFR Calc Glomerular filtration rate ( GFR) estimationOrdered By: Dominic Issa on 01-16-2025 Estimated GFR (MDRD) Non-Af Amer 65 mL/min >60 [facility] Comment on above: Non- GFR Calc Glucose measurementOrdered B y: Dominic Issa on 08-31-2024 Glucose [Mass/Vol] 163 mg/dL High 74-106 [facility] Comment on above: Fasting Glucose resu lt greater than or equal to 126 mg/dL suggests DIABETES MELLITUS per A.D.A. criteria. HBV surface IgG Ql (S)Ordere d By: Dominic Issa on 08-31-2024 Hepatitis B Surface Antibody Reactive [facility] Comment on above: Non Reactive: Incons istent with immunity less than <10 mIU/mL Reactive: Consistent with immunity greater than or equal to 10 mIU/mL HIV - WCHon 08-31-2024 HIV Non-Reactive Normal Nonreactive [facility] Comment on above: Order Comment: [id number] TRAMADOL Performed By: #### L 3410.9998 #### [facility] [address] [place], [address] HIV 1+2 Ab+HIV1 p24 Ag IA Ql Ordered By: Dominic Issa on 08-31-2024 HIV (1&2) Antibody Non-Reactive Nonreactive [facility] Hematocrit Auto (Bld) [Volum e fraction]Ordered By: Dominic Issa on 08-31-2024 Hematocrit (Bld) [Volume fraction] 32.5 % Low 37-47 [facility] Hemoglobin A1con 08-31-2024 HbA1c (Bld) [Mass fraction] 7.7 % High 3.8-5.6 [facility] Comment on above: Result Comment: Norm al < 5.7 % Prediabetic 5.7 - 6.4 % Diabetic >or= 6.5 % Please note range changes. Performed By: #### L 300.4310, L501.5200, L300.3900, L501.9985 #### [facility] [address] [place], [address] Hemoglobin A1c percentageOrd ered By: Alexx Felder on 08-31-2024 HbA1c (Bld) [Mass fraction] 7.7 % High 3.8-5.6 [facility] Comment on above: Normal < 5.7 % Predi abetic 5.7 - 6.4 % Diabetic >or= 6.5 % Please note range changes. Hemoglobin measurementOrdere d By: Dominic Issa on 08-31-2024 Hemoglobin (Bld) [Mass/Vol] 9.4 g/dL Low 12.0-15.0 [facility] Hepatitis A virus total anti body assayOrdered By: Dominic Issa on 08-31-2024 Hepatitis A Antibody Total Negative Negative [facility] Comment on above: Comment: The HAV tot al antibody assay detects both IgG andIgM but does not differentiate between them. A negativeresult suggests susceptibility to infection. A positiveresult could be due to vaccination, previously resolvedinfection or active infection. Testing for HAV IgM shouldbe performed if active HAV infection is suspected. [facility]offers profiles that will automatically reflex positive HAVtotal antibody results to IgM (e.g., panel #[id number] HAVAntibody w/ Rfx).Performed at: [address] [id number] Director: Guero Dawson PhD, Phone: [phone] Hepatitis B Surface Antibody on 08-31-2024 HEP B Surf Ab Reactive Normal [facility] Comment on above: Order Comment: [id number] TRAMADOL Result Comment: Non Reactive: Inconsistent with immunity less than <10 mIU/mL Reactive: Consistent with immunity greater than or equal to 10 mIU/mL Performed By: #### L 3410.9998 #### [facility] [address] [facility] [place], [address] Hepatitis C Antibodyon 08-31 Hepatitis C AB Non-Reactive Normal Nonreactive [facility] Comment on above: Order Comment: [id number] TRAMADOL Result Comment: Non Reactive: < 0.8 Equivocal: >/= 0.8 to < 1.0 Reactive: >/= 1.0 The CDC requires that a reactive/equivocal HCV antibody result be sent out for confirmation. HCV Quant by PCR testing. Performed By: #### L 3410.9998 #### [facility] [address] [place], [address] Hepatitis C virus antibody a ssayOrdered By: Dominic Issa on 08-31-2024 Hepatitis C Antibody Non-Reactive Nonreactive [facility] Comment on above: Non Reactive: < 0.8 Equivocal: >/= 0.8 to < 1.0 Reactive: >/= 1.0The CDC requires that a reactive/equivocal HCV antibody result be sent out for confirmation. HCV Quant by PCR testing. Immature granulocytes/100 WB C Auto (Bld)Ordered By: Dominic Issa on 08-31-2024 Immature granulocytes/100 WBC (Bld) 0.400 % 0.0-0.9 [facility] Comment on above: IG% - Immature Granu locytes (promyelocytes, myelocytes and metamyelocytes) > 1% indicates that a LEFT SHIFT is Present. International normalized rat io (INR) calculationOrdered By: Alexx Felder on 08-31-2024 INR Coag (Bld) [Relative time] 1.0 {INR} [facility] Lymphocytes Auto (Unsp spec) [#/Vol]Ordered By: Dominic Issa on 08-31-2024 Lymphocytes (Bld) [#/Vol] 2.62 10*3/uL 0.83-4.51 [facility] Lymphocytes/100 WBC Auto (Un sp spec)Ordered By: Dominic Issa on 08-31-2024 Lymphocytes/100 WBC (Bld) 24.1 % 19-41 [facility] MCV (mean corpuscular volume ) determinationOrdered By: Dominic Issa on 08-31-2024 MCV (RBC) [Entitic vol] 70.7 fL Low 81-99 [facility] MRSA screenOrdered By: Andrei Issa on 08-31-2024 Nasal Screen MRSA/MSSA [facility] Nasal Screen MRSA/MSSA [facility] Magnesiumon 08-31-2024 Magnesium [Mass/Vol] 1.4 mg/dL Low 1.6-2.6 [facility] Comment on above: Performed By: #### L 300.4310, L501.5200, L300.3900, L501.9985 #### [facility] [address] [place] [address]. [place], [address] Magnesium measurementOrdered By: Alexx Felder on 08-31-2024 Magnesium [Mass/Vol] 1.4 mg/dL Low 1.6-2.6 [facility] Mean corpuscular hemoglobin (MCH) determinationOrdered By: Dominic Issa on 08-31-2024 MCH (RBC) [Entitic mass] 20.4 pg Low 27.0-32.0 [facility] Mean corpuscular hemoglobin concentration (MCHC) determinationOrdered By: Dominic Issa on 08-31-2024 MCHC (RBC) [Mass/Vol] 28.9 g/dL Low 32-36 [facility] Mean platelet volume determi nationOrdered By: Dominic Issa on 08-31-2024 Platelet mean volume (Bld) [Entitic vol] 9.2 fL 6.2-12.0 [facility] Monocyte percentageOrdered B y: Dominic Issa on 08-31-2024 Monocytes/100 WBC (Bld) 7.9 % 0-10 [facility] Neutrophil percentageOrdered By: Dominic Issa on 08-31-2024 Neutrophils/100 WBC (Bld) 65.4 % 47-70 [facility] Nucleated red blood cell per centageOrdered By: Domniic Issa on 08-31-2024 Nucleated RBC/100 WBC (Bld) [Ratio] 0 % 0-5 [facility] Partial Thromboplast Timeon 08-31-2024 aPTT Coag (Bld) [Time] 26.8 s Normal 24.1-36.2 [facility] Comment on above: Performed By: #### L 300.4310, L501.5200, L300.3900, L501.9985 #### [facility] [address] [place] [address]. [place], [place], [id number] Platelet countOrdered By: Ricci Issa on 08-31-2024 Platelets (Bld) [#/Vol] 517 10*3/uL High 150-450 [facility] Potassium measurementOrdered By: Dominic Issa on 08-31-2024 Potassium [Moles/Vol] 3.7 mmol/L 3.5-5.1 [facility] Prothrombin Time w/INRon INR Coag (PPP) [Relative time] 1.0 {INR} Normal [facility] Comment on above: Performed By: #### L 300.4310, L501.5200, L300.3900, L501.9985 #### [facility] [address] [place], [address] PT Coag (PPP) [Time] 13.2 s Normal 11.7-14.9 [facility] Comment on above: Performed By: #### L 300.4310, L501.5200, L300.3900, L501.9985 #### [facility] [address] [place], [address] Prothrombin timeOrdered By: Alexx Felder on 08-31-2024 PT Coag (PPP) [Time] 13.2 s 11.7-14.9 [facility] RBC Auto (Bld) [#/Vol]Ordere d By: Dominic Issa on 08-31-2024 RBC (Bld) [#/Vol] 4.60 10*6/uL 4.2-5.4 [facility] Serum anion gap measurementO rdered By: Dominic Issa on 08-31-2024 Anion gap [Moles/Vol] 9 mmol/L 5-15 [facility] Serum or plasma calcium sandor urement (mass/volume)Ordered By: Dominic Issa on 08-31-2024 Calcium [Mass/Vol] 9.5 mg/dL 8.5-10.1 [facility] Serum or plasma creatinine m easurement (mass/volume)Ordered By: Dominic Issa on 08-31-2024 Creatinine [Mass/Vol] 0.90 mg/dL 0.55-1.02 [facility] Comment on above: The validity of the calculated GFR & GFRAA in patients over 70 years has not been determined. Clinical correlation is essential. Serum or plasma urea nitroge n measurement (mass/volume)Ordered By: Dominic Issa on 08-31-2024 Urea nitrogen [Mass/Vol] 27 mg/dL High 7-18 [facility] Sodium levelOrdered By: Serenity Issa on 08-31-2024 Sodium [Moles/Vol] 132 mmol/L Low 136-145 [facility] Type AND Screen - CECILIA AGRAWALon 08-31-2024 ABO and Rh group Nom (Bld) Blood group A Rh(D) positive Normal [facility] Comment on above: Order Comment: [id number] TRAMADOL Performed By: #### L 3410.9998 #### [facility] [place], [address] White blood cell (WBC) count Ordered By: Dominic Issa on 08-31-2024 WBC (Bld) [#/Vol] 10.9 10*3/uL 4.4-11.0 [facility] aPTT Coag (PPP) [Time]Ordere d By: Alexx Felder on 08-31-2024 aPTT Coag (Bld) [Time] 26.8 s 24.1-36.2 [facility] CNPNon 2024 CNPN Telephone (FAMPLA) ----- JANESSA BARON ([id number]) 1950 F Date Time Provider Department 08/24/24 KALI BACONA During your visit today, we recorded the following information about you: Allergies As of Date: 2024 Noted Allergy Reaction METOCLOPRAMIDE 01/31/2017 16 - Unknown SULFAMETHOXAZOLE-TRIMETHO PRIM 04/01/2017 16 - Unknown MORPHINE 07/24/2020 16 - Unknown ACETAMINOPHEN 04/07/2023 16 - Unknown AUGMENTIN (AMOXICILLIN-POT CLAVUL*04/27/2018 2 - Rash CEFZIL (CEFPROZIL) 04/27/2018 2 - Rash DAYQUIL ALLERGY 12-HR 04/27/2018 4 - Hives DEXTROMETHORPHAN 01/31/2017 4 - Hives DOXYLAMINE 01/31/2017 4 - Hives ERYTHROMYCIN 04/27/2018 2 - Rash IODINATED CONTRAST MEDIA 05/22/2019 4 - Hives IVP DYE (IODINE) 04/27/2018 16 - Unknown Comments: knot on head LINCOMYCIN 04/27/2018 2 - Rash PSEUDOEPHEDRINE 01/31/2017 4 - Hives REGLAN (METOCLOPRAMIDE HCL) 04/27/2018 5 - Intolerance SJEUSZP-YIB-KII REDUCTASE INHIBIT*01/31/2017 16 - Unknown Comments: Other reaction(s): Other TEQUIN (GATIFLOXACIN) 04/27/2018 2 - Rash DOXYCYCLINE 11/28/2018 16 - Unknown 11 - Vomiting Date Reviewed: 08/21/2024 Reviewed by: Spring Shipley LPN - Fully Assessed Primary Visit Diagnosis:Iron deficiency anemia, unspecified iron deficiency anemia type [D50.9] Prescriptions as of 2024 - iron sucrose 200 mg in NaCl 0.9% 100 mL Inject 200 mg intravenously as directed for 5 doses. - albuterol (PROVENTIL) 2.5 mg /3 mL (0.083 %) nebulizer solution INHALE WITH 1 VIAL IN NEBULIZER EVERY SIX HOURS NEEDED - rosuvastatin (CRESTOR) 10 mg tablet Take 1 tablet by mouth daily at bedtime. - metFORMIN (GLUCOPHAGE) 500 mg tablet Take 2 tablets by mouth two times a day with meals. - blood sugar diagnostic ([employer] ULTRA TEST) test strip Monitor blood sugar daily and as needed. - glimepiride (AMARYL) 4 mg tablet Take 1 tablet by mouth daily with breakfast. - montelukast (SINGULAIR) 10 mg tablet Take 1 tablet by mouth daily at bedtime. - omeprazole (PRILOSEC) 40 mg capsule Take 1 capsule by mouth two times a day. - pioglitazone (ACTOS) 45 mg tablet Take 1 tablet by mouth once daily. - lisinopril-hydroCHLOROthi azide (ZESTORETIC) 20-12.5 mg per tablet Take 1 tablet by mouth once daily. - ketoconazole (NIZORAL) 2 % cream Apply to affected area once daily for 10 days. - NYSTOP powder APPLY TO THE AFFECTED AREA(S) THREE TIMES DAILY - sucralfate (CARAFATE) 1 gram tablet Take 1 g by mouth three times a day. 1/2 hour before meals - budesonide (PULMICORT) 0.5 mg/2 mL nebulizer solution mix 2 ampules with saline and apply twice daily - gel base no.41, bulk, (HYDROGEL) gel 1 Dose once daily. - lancets (ONE TOUCH DELICA) 33 gauge 1 Each once daily. - blood sugar diagnostic (ONETOUCH ULTRA TEST) test strip 1 Strip before meals and at bedtime. Use as instructed - aspirin, enteric coated (ASPIRIN, ENTERIC COATED) 81 mg EC tablet Take 81 mg by mouth once daily. - lancets (TRUEPLUS LANCETS) 33 gauge Monitor blood sugar daily and as needed. - traMADol (ULTRAM) 50 mg tablet Take 50 mg by mouth every 6 hours as needed for pain. - diclofenac (VOLTAREN) 1 % topical gel Apply to affected area four times daily. - mag carb/aluminum hydrox/algin (GAVISCON ORAL) Take by mouth. - cetirizine HCl (ZYRTEC ORAL) Take by mouth. - ubidecarenone (CO Q-10 ORAL) Take by mouth. 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] 12/30/2022 Family history of malignant neoplasm of colon [*12/30/2022 History of motion sickness [Z87.898] 11/20/2022 Hypomagnesemia [E83.42] 12/30/2022 Multiple premature ventricular complexes [I49.3]12/30/2022 Overactive bladder [N32.81] 12/30/2022 Paroxysmal atrial fibrillation (HCC) [I48.0] 01/27/2023 Stenosis of carotid artery [I65.29] 02/16/2024 Internal carotid artery stent present [Z95.828] 02/16/2024 Iron deficiency anemia, unspecified [D50.9] 2024 Encounter Status:Closed by PATRICA SHIPLEY LAUREN on 08/24/24 [facility] Yadiel 08-22-2024 [place] Telephone (TechLoanerS) ----- JANESSA BARON ([id number]) 1950 F Date Time Provider Department 08/22/24 KALI BACON During your visit today, we recorded the following information about you: Spring Shipley LPN 08/22/2024 1:34 PM Signed This nurse phoned patient to inform of Hematology and Oncology referral. Patient stated she is scheduled on 09-05-2024 for appointment. This nurse faxed transfusion order to [facility] as well. Patient notified Spring Shipley LPN August 22, 2024 1:34 PM Ana Dawn LPN 08/22/2024 4:17 PM Signed Apt was made for the referral on 09/05/24. PCP sent an order for iron infusions as well. Can we go ahead and get those scheduled prior to you seeing her or wait? PATRICA Young Cathleen, RN 08/23/2024 9:35 AM Signed Fanny Barron CNP would be able to see this patient sooner if needed. EBER Villarreal Brianna 08/23/2024 1:38 PM Signed PCPs order is active. She can be scheduled for IV iron at any time. She was very low. Fanny Barron APRN.Guera Mcdowell 08/23/2024 2:44 PM Signed Nba can you enter beacon orders from the order under medications? We can work on getting patient scheduled once this has been done. Thank you, Patito Montelongo LPN 08/23/2024 4:03 PM Signed Spoke with Jodie in pharmacy, she said go ahead and get scheduled, she will reach out to physician to get ordered correctly. PATRICA Gross Angela 2024 8:17 AM Addendum Lvm for patient to return the call. When patient calls back please schedule IRON SUCROSE [address] JORDI Mcgowan And, please move HYDROLOGIC MODELER appointment to Fanny Barron CNP. Can be before or after she starts IRON. Liana Farias, RN Jodie Cardoza 2024 10:56 AM Signed Scheduled iron with patient Start email sent Rescheduled HYDROLOGIC MODELER with Fanny. Patient requested date during treatments due to surgery on 09/11. Last iron is 09/08. Allergies As of Date: 08/22/2024 Noted Allergy Reaction METOCLOPRAMIDE 01/31/2017 16 - Unknown SULFAMETHOXAZOLE-TRIMETHO PRIM 04/01/2017 16 - Unknown MORPHINE 07/24/2020 16 - Unknown ACETAMINOPHEN 04/07/2023 16 - Unknown AUGMENTIN (AMOXICILLIN-POT CLAVUL*04/27/2018 2 - Rash CEFZIL (CEFPROZIL) 04/27/2018 2 - Rash DAYQUIL ALLERGY 12-HR 04/27/2018 4 - Hives DEXTROMETHORPHAN 01/31/2017 4 - Hives DOXYLAMINE 01/31/2017 4 - Hives ERYTHROMYCIN 04/27/2018 2 - Rash IODINATED CONTRAST MEDIA 05/22/2019 4 - Hives IVP DYE (IODINE) 04/27/2018 16 - Unknown Comments: knot on head LINCOMYCIN 04/27/2018 2 - Rash PSEUDOEPHEDRINE 01/31/2017 4 - Hives REGLAN (METOCLOPRAMIDE HCL) 04/27/2018 5 - Intolerance OQYYALA-GWR-FIR REDUCTASE INHIBIT*01/31/2017 16 - Unknown Comments: Other reaction(s): Other TEQUIN (GATIFLOXACIN) 04/27/2018 2 - Rash DOXYCYCLINE 11/28/2018 16 - Unknown 11 - Vomiting Date Reviewed: 08/21/2024 Reviewed by: Spring Shipley LPN - Fully Assessed Reason for Visit: Patient Update [1234] Primary Visit Diagnosis:Iron deficiency anemia, unspecified iron deficiency anemia type [D50.9] Order(s):CONSULT TO HEMATOLOGY/ONCOLOGY [[id number]] Order #: [id number]: 1 FUTURE Prescriptions as of 2024 - albuterol (PROVENTIL) 2.5 mg /3 mL (0.083 %) nebulizer solution INHALE WITH 1 VIAL IN NEBULIZER EVERY SIX HOURS NEEDED - rosuvastatin (CRESTOR) 10 mg tablet Take 1 tablet by mouth daily at bedtime. - metFORMIN (GLUCOPHAGE) 500 mg tablet Take 2 tablets by mouth two times a day with meals. - blood sugar diagnostic (ONETOUCH ULTRA TEST) test strip Monitor blood sugar daily and as needed. - glimepiride (AMARYL) 4 mg tablet Take 1 tablet by mouth daily with breakfast. - montelukast (SINGULAIR) 10 mg tablet Take 1 tablet by mouth daily at bedtime. - omeprazole (PRILOSEC) 40 mg capsule Take 1 capsule by mouth two times a day. - pioglitazone (ACTOS) 45 mg tablet Take 1 tablet by mouth once daily. - lisinopril-hydroCHLOROthi azide (ZESTORETIC) 20-12.5 mg per tablet Take 1 tablet by mouth once daily. - ketoconazole (NIZORAL) 2 % cream Apply to affected area once daily for 10 days. - NYSTOP powder APPLY TO THE AFFECTED AREA(S) THREE TIMES DAILY - sucralfate (CARAFATE) 1 gram tablet Take 1 g by mouth three times a day. 1/2 hour before meals - budesonide (PULMICORT) 0.5 mg/2 mL nebulizer solution mix 2 ampules with saline and apply twice daily - gel base no.41, bulk, (HYDROGEL) gel 1 Dose once daily. - lancets (ONE TOUCH DELICA) 33 gauge 1 Each once daily. - blood sugar diagnostic (ONETOUCH ULTRA TEST) test strip 1 Strip before meals and at bedtime. Use as instructed - aspirin, enteric coated (ASPIRIN, ENTERIC COATED) 81 mg EC tablet Take 81 mg by mouth once daily. - lancets (TRUEPLUS LANCETS) 33 gauge Monitor blood sugar daily and as needed. - traMADol (ULTRAM) 50 m (more content not included)... Normal [facility] CBC W Auto Differential pane l (Bld)on 08-21-2024 Anisocytosis Ql (Bld) Present [facility] Basophils (Bld) [#/Vol] 0.00 10*3/uL [facility] Basophils/100 WBC (Bld) 0.0 % [facility] Differential cell count method Nom (Bld) Manual [facility] Eosinophils (Bld) [#/Vol] 0.45 10*3/uL [facility] Eosinophils/100 WBC (Bld) 4.0 % [facility] Erythrocyte distribution width (RBC) [Ratio] 16.4 % High 11.5 - 15.0 % [facility] Hematocrit (Bld) [Volume fraction] 31.9 % Low 36.0 - 46.0 % [facility] Hemoglobin (Bld) [Mass/Vol] 9.5 g/dL Low 11.5 - 15.5 g/dL [facility] Interpretation and review of laboratory results Abnormal [facility] Lymphocytes (Bld) [#/Vol] 4.02 10*3/uL High [facility] Lymphocytes/100 WBC (Bld) 36.0 % [facility] MCH (RBC) [Entitic mass] 21.2 pg Low 26.0 - 34.0 pg [facility] MCHC (RBC) [Mass/Vol] 29.8 g/dL Low 30.5 - 36.0 g/dL [facility] MCV (RBC) [Entitic vol] 71.0 fL Low 80.0 - 100.0 fL [facility] Monocytes (Bld) [#/Vol] 0.56 10*3/uL [facility] Monocytes/100 WBC (Bld) 5.0 % [facility] Neutrophils (Bld) [#/Vol] 6.14 10*3/uL [facility] Neutrophils/100 WBC (Bld) 55.0 % [facility] Nucleated RBC (Bld) [#/Vol] [facility] Nucleated RBC/100 WBC (Bld) [Ratio] 0.0 % /100 WBC [facility] Platelet mean volume (Bld) [Entitic vol] 8.7 fL Low 9.0 - 12.7 fL [facility] Platelets (Bld) [#/Vol] 437 10*3/uL High [facility] Platelets Estimate (Bld) [#/Vol] Increased [facility] Polychromasia LM Ql (Bld) Slight [facility] RBC (Bld) [#/Vol] 4.49 10*6/uL 3.90 - 5.2 0 m/uL [facility] Red Cell Morph Reviewed: see result s of individual morphologies [facility] WBC (Bld) [#/Vol] 11.16 10*3/uL High [facility] This is an appended report. These results have been appended to a previously verified report. [facility] Anisocytosis Ql (Bld) Present Normal [facility] Comment on above: Order Comment: Speci men Type: BLOOD SPECIMENOrdering Facility: [facility] [place] Address: [address] [place] [address] Performed By: #### 5 7021-8 ####[facility] LABORATORYCLIA [id number] [place] [address] [place] Basophils (Bld) [#/Vol] 0.00 10*3/uL Normal <0.11 [facility] Comment on above: Order Comment: Speci men Type: BLOOD SPECIMENOrdering Facility: [facility] Address: [address] [place] [address] Performed By: #### 5 7021-8 ####[facility] LABORATORYCLIA [id number] [address] [place] Basophils/100 WBC (Bld) 0.0 % Normal [facility] Comment on above: Order Comment: Speci men Type: BLOOD SPECIMENOrdering Facility: [facility] [facility] Address: [address] [place] [address] Performed By: #### 5 7021-8 ####[facility] LABORATORYCLIA [id number] [place] [address] [place] Differential cell count method Nom (Bld) Manual Normal [facility] Comment on above: Order Comment: Speci men Type: BLOOD SPECIMENOrdering Facility: [facility] Address: [address] [place] [address] Performed By: #### 5 7021-8 ####[facility] LABORATORYCLIA [id number] [place] [id number] [place] Eosinophils (Bld) [#/Vol] 0.45 10*3/uL Normal <0.46 [facility] Comment on above: Order Comment: Speci men Type: BLOOD SPECIMENOrdering Facility: [facility] Address: [address] [place] [address] Performed By: #### 5 7021-8 ####[facility] LABORATORYCLIA [id number] [place] [id number] [place] Eosinophils/100 WBC (Bld) 4.0 % Normal [facility] Comment on above: Order Comment: Speci men Type: BLOOD SPECIMENOrdering Facility: [facility] Address: [address] [place] [address] Performed By: #### 5 7021-8 ####[facility] LABORATORYCLIA [id number] [place] [address] [place] Erythrocyte distribution width (RBC) [Ratio] 16.4 % High 11.5-15.0 [facility] Comment on above: Order Comment: Speci men Type: BLOOD SPECIMENOrdering Facility: [facility] Address: [address] [place] [address] Performed By: #### 5 7021-8 ####[facility] LABORATORYCLIA [id number] [place] [address] [place] Hematocrit (Bld) [Volume fraction] 31.9 % Low 36.0-46.0 [facility] Comment on above: Order Comment: Speci men Type: BLOOD SPECIMENOrdering Facility: [facility] Address: [address] [place] [address] Performed By: #### 5 7021-8 ####[facility] LABORATORYCLIA [id number] [place] [id number] [place] Hemoglobin (Bld) [Mass/Vol] 9.5 g/dL Low 11.5-15.5 [facility] Comment on above: Order Comment: Speci men Type: BLOOD SPECIMENOrdering Facility: [facility] Address: [address] [place] [address] Performed By: #### 5 7021-8 ####[facility] LABORATORYCLIA [id number] [address] [place] Lymphocytes (Bld) [#/Vol] 4.02 10*3/uL High 1.00-4.00 [facility] Comment on above: Order Comment: Speci men Type: BLOOD SPECIMENOrdering Facility: [facility] Address: [address] [place] [address] Performed By: #### 5 7021-8 ####[facility] LABORATORYCLIA [id number] [address] [place] Lymphocytes/100 WBC (Bld) 36.0 % Normal [facility] Comment on above: Order Comment: Speci men Type: BLOOD SPECIMENOrdering Facility: [facility] Address: [address] [place] [address] Performed By: #### 5 7021-8 ####[facility]ORATORYCLIA [id number] [place] [address] [place] MCH (RBC) [Entitic mass] 21.2 pg Low 26.0-34.0 [facility] Comment on above: Order Comment: Speci men Type: BLOOD SPECIMENOrdering Facility: [facility] Address: [address] [place] [address] Performed By: #### 5 7021-8 ####[facility] LABORATORYCLIA [id number] [place] [address] [place] MCHC (RBC) [Mass/Vol] 29.8 g/dL Low 30.5-36.0 [facility] Comment on above: Order Comment: Speci men Type: BLOOD SPECIMENOrdering Facility: [facility] Address: [address] [place] [address] Performed By: #### 5 7021-8 ####[facility]ORATORYCLIA [id number] [place] [address] [place] MCV (RBC) [Entitic vol] 71.0 fL Low 80.0-100.0 [facility] Comment on above: Order Comment: Speci men Type: BLOOD SPECIMENOrdering Facility: [facility] Address: [address] [place] [address] Performed By: #### 5 7021-8 ####[facility] LABORATORYCLIA [id number] [place] [id number] [place] Monocytes (Bld) [#/Vol] 0.56 10*3/uL Normal <0.87 [facility] Comment on above: Order Comment: Speci men Type: BLOOD SPECIMENOrdering Facility: [facility] Address: [address] [place] [address] Performed By: #### 5 7021-8 ####[facility]ORATORYCLIA [id number] [place] [address] [place] Monocytes/100 WBC (Bld) 5.0 % Normal [facility] Comment on above: Order Comment: Speci men Type: BLOOD SPECIMENOrdering Facility: [facility] Address: [address] [place] [address] Performed By: #### 5 7021-8 ####[facility]ORATORYCLIA [id number] [place] [address] [place] Neutrophils (Bld) [#/Vol] 6.14 10*3/uL Normal 1.45-7.50 [facility] Comment on above: Order Comment: Speci men Type: BLOOD SPECIMENOrdering Facility: [facility] Address: [address] [place] [address] Performed By: #### 5 7021-8 ####[facility]ORATORYCLIA [id number] [place] [address] [place] Neutrophils/100 WBC (Bld) 55.0 % Normal [facility] Comment on above: Order Comment: Speci men Type: BLOOD SPECIMENOrdering Facility: [facility] Address: [address] [place] [address] Performed By: #### 5 7021-8 ####[facility]ORATORYCLIA [id number] [place] [address] [place] Nucleated RBC (Bld) [#/Vol] 10*3/uL Normal <0.01 [facility] Comment on above: Order Comment: Speci men Type: BLOOD SPECIMENOrdering Facility: [facility] Address: [address] [place] [address] Performed By: #### 5 7021-8 ####[facility]ORATORYCLIA [id number] [place] [address] [place] Nucleated RBC/100 WBC (Bld) [Ratio] 0.0 /100 WBC Normal [facility] Comment on above: Order Comment: Speci men Type: BLOOD SPECIMENOrdering Facility: [facility] Address: [address] [place] [address] Performed By: #### 5 7021-8 ####[facility]ORATORYCLIA [id number] [place] [address] [place] Platelet mean volume (Bld) [Entitic vol] 8.7 fL Low 9.0-12.7 [facility] Comment on above: Order Comment: Speci men Type: BLOOD SPECIMENOrdering Facility: [facility] Address: [address] [place] [address] Performed By: #### 5 7021-8 ####[facility]ATORYCLIA [id number] [place] [address] [place] Platelets (Bld) [#/Vol] 437 10*3/uL High 150-400 [facility] Comment on above: Order Comment: Speci men Type: BLOOD SPECIMENOrdering Facility: [facility] Address: [address] [place] [address] Performed By: #### 5 7021-8 ####[facility]ORATORYCLIA [id number] [place] [address] [place] Platelets Estimate (Bld) [#/Vol] Increased Normal [facility] Comment on above: Order Comment: Speci men Type: BLOOD SPECIMENOrdering Facility: [facility] Address: [address] [place] [address] Performed By: #### 5 7021-8 ####[facility]ORATORYCLIA [id number] [address] Polychromasia LM Ql (Bld) Slight Normal [facility] Comment on above: Order Comment: Speci men Type: BLOOD SPECIMENOrdering Facility: [facility] Address: [address] [place], [place] [address] [address] Performed By: #### 5 7021-8 ####[facility]ORATORYCLIA [id number] [address] [place] RBC (Bld) [#/Vol] 4.49 10*6/uL Normal 3.90-5.20 [facility] Comment on above: Order Comment: Speci men Type: BLOOD SPECIMENOrdering Facility: [facility] Address: [address] [place] [address] Performed By: #### 5 7021-8 ####[facility]ORATORYCLIA [id number] [address] RED CELL MORPH Reviewed: see result s of individual morphologies Normal [facility] Comment on above: Order Comment: Speci men Type: BLOOD SPECIMENOrdering Facility: [facility] Address: [facility] [place] [address] Performed By: #### 5 7021-8 ####[facility]ATORYCLIA [id number] [address] [place] WBC (Bld) [#/Vol] 11.16 10*3/uL High 3.70-11.00 [facility] Comment on above: Order Comment: Speci men Type: BLOOD SPECIMENOrdering Facility: [facility] Address: [address] [place], [place] [address] [address] Performed By: #### 5 7021-8 ####[facility] LABORATORYCLIA [id number] [place] [id number] [facility] CNOVon 08-21-2024 CNOV Office Visit ([facility] ) ----- JANESSA BARON ([id number]) 1950 F Date Time Provider Department 08/21/24 4:40 PM KALI BACON During your visit today, we recorded the following information about you: Temperature Pulse Respiration Blood pressure 96.9 degrees 102/minute 18/minute 126/76 Weight Height 91.2 kg 1.6 m Spring Shipley LPN 08/22/2024 9:45 AM Signed Patient is in office for pre surgical clearance. Patient is having 360 Lumbar fusion L4-5, cement augmentation possible on 09-11-2024. Physician performing procedure is Dr. Issa of [facility]. No refills needed. Spring Shipley LPN August 21, 2024 4:32 PM Kali Bacon MD 08/22/2024 9:45 AM Signed Subjective Janessa Baron is a 73 year old female. Janessa presents today for preop clearance for upcoming back surgery. She denies any problems with anesthesia with her last procedure. Additionally she denies any current cardiovascular, pulmonary, or neurological symptoms. She has already been cleared by her personal care service provider. She has appointment with cardiology on September 04. Her chronic medical problems have been stable. She did have recent drop in her hemoglobin. She has not yet completed iron studies. Review of Systems Constitutional: Negative. HENT: Negative. [...] Never Smokeless tobacco: Never Vaping Use Vaping status: Never Used Substance Use Topics Alcohol use: Not Currently Drug use: Not Currently ALLERGIES Allergen Reactions Metoclopramide Unknown Sulfamethoxazole-Tr* Unknown Morphine Unknown Acetaminophen Unknown Augmentin [Amoxicil* Rash Cefzil [Cefprozil] Rash Dayquil Allergy 12-* Hives Dextromethorphan Hives Doxylamine Hives Erythromycin Rash Iodinated Contrast * Hives Ivp Dye [Iodine] Unknown knot on head Lincomycin Rash Pseudoephedrine Hives Reglan [Metoclopram* Intolerance Rcwngvf-Cci-Dek Red* Unknown Other reaction(s): Other Tequin [Gatifloxaci* Rash Doxycycline Unknown, Vomiting MEDICATIONS: albuterol (PROVENTIL) 2.5 mg /3 mL (0.083 %) nebulizer solution INHALE WITH 1 VIAL IN NEBULIZER EVERY SIX HOURS NEEDED rosuvastatin (CRESTOR) 10 mg tablet Take 1 tablet by mouth daily at bedtime. metFORMIN (GLUCOPHAGE) 500 mg tablet Take 2 tablets by mouth two times a day with meals. blood sugar diagnostic ([employer] ULTRA TEST) test strip Monitor blood sugar daily and as needed. glimepiride (AMARYL) 4 mg tablet Take 1 tablet by mouth daily with breakfast. montelukast (SINGULAIR) 10 mg tablet Take 1 tablet by mouth daily at bedtime. omeprazole (PRILOSEC) 40 mg capsule Take 1 capsule by mouth two times a day. pioglitazone (ACTOS) 45 mg tablet Take 1 tablet by mouth once daily. lisinopril-hydroCHLOROthi azide (ZESTORETIC) 20-12.5 mg per tablet Take 1 tablet by mouth once daily. ketoconazole (NIZORAL) 2 % cream Apply to affected area once daily for 10 days. NYSTOP powder APPLY TO THE AFFECTED AREA(S) THREE TIMES DAILY sucralfate (CARAFATE) 1 gram tablet Take 1 g by mouth three times a day. 1/2 hour before meals budesonide (PULMICORT) 0.5 mg/2 mL nebulizer solution mix 2 ampules with saline and apply twice daily gel base no.41, bulk, (HYDROGEL) gel 1 Dose once daily. lancets (ONE TOUCH DELICA) 33 gauge 1 Each once daily. blood sugar diagnostic (ONETOUCH ULTRA TEST) test strip 1 Strip before meals and at bedtime. Use as instructed aspirin, enteric coated (ASPIRIN, ENTERIC COATED) 81 mg EC tablet Take 81 mg by mouth once daily. lancets (TRUEPLUS LANCETS) 33 gauge Monitor blood sugar daily and as needed. traMADol (ULTRAM) 50 mg tablet Take 50 mg by mouth every 6 hours as needed for pain. diclofenac (VOLTAREN) 1 % topical gel Apply to affected area four times daily. mag carb/aluminum hydrox/algin (GAVISCON ORAL) Take by mouth. ce (more content not included)... Normal [facility] Ferritin SerPl-mCncon 2024 Ferritin [Mass/Vol] 4.9 ng/mL Low 8.0-307.0 [facility] Comment on above: Order Comment: Gadiel cisneros Type: BLOOD SPECIMENOrdering Facility: [facility] Address: [address] [place] [address] Performed By: #### 2 276-4, 55513-7 ####[facility] LABORATORYCLIA [id number] [place] [address] [place] Iron and Iron binding capaci ty panelon 08-21-2024 Iron [Mass/Vol] 14 ug/dL Low 50-170 [facility] Comment on above: Order Comment: Gadiel cisneros Type: BLOOD SPECIMENOrdering Facility: [facility] Address: [address] [place] [address] Result Comment: Mary Jane ents treated with metal-binding drugs (e.g.deferoxamine) may have depressed iron values, as chelated iron may not properly react in the Siemens iron assay. Performed By: #### 2 276-4, 34841-2 ####[facility] LABORATORYCLIA [id number] [place] [address] [place] Iron binding capacity [Mass/Vol] 433 ug/dL Normal 221-481 [facility] Comment on above: Order Comment: Gadiel cisneros Type: BLOOD SPECIMENOrdering Facility: [facility] Address: [address] [place] [address] Performed By: #### 2 276-4, 09177-3 ####[facility] LABORATORYCLIA [id number] [place] [id number] [place] Iron/TIBC [Molar ratio] 3.2 % Low 22.0-44.0 [facility] Comment on above: Order Comment: Speci men Type: BLOOD SPECIMENOrdering Facility: [facility] Address: [facility] [address] Performed By: #### 2 276-4, 87931-6 ####[facility]ORATORYCLIA [id number] [place] [id number] [place] CNPNon 08-17-2024 CNPN Telephone (4CQ) ----- JANESSA BARON ([id number]) 1950 F Date Time Provider Department 08/17/24 KALI BACON 4CQ During your visit today, we recorded the following information about you: Allergies As of Date: 08/17/2024 Noted Allergy Reaction METOCLOPRAMIDE 01/31/2017 16 - Unknown SULFAMETHOXAZOLE-TRIMETHO PRIM 04/01/2017 16 - Unknown MORPHINE 07/24/2020 16 - Unknown ACETAMINOPHEN 04/07/2023 16 - Unknown AUGMENTIN (AMOXICILLIN-POT CLAVUL*04/27/2018 2 - Rash CEFZIL (CEFPROZIL) 04/27/2018 2 - Rash DAYQUIL ALLERGY 12-HR 04/27/2018 4 - Hives DEXTROMETHORPHAN 01/31/2017 4 - Hives DOXYLAMINE 01/31/2017 4 - Hives ERYTHROMYCIN 04/27/2018 2 - Rash IODINATED CONTRAST MEDIA 05/22/2019 4 - Hives IVP DYE (IODINE) 04/27/2018 16 - Unknown Comments: knot on head LINCOMYCIN 04/27/2018 2 - Rash PSEUDOEPHEDRINE 01/31/2017 4 - Hives REGLAN (METOCLOPRAMIDE HCL) 04/27/2018 5 - Intolerance NTBYCFG-MBP-VSE REDUCTASE INHIBIT*01/31/2017 16 - Unknown Comments: Other reaction(s): Other TEQUIN (GATIFLOXACIN) 04/27/2018 2 - Rash DOXYCYCLINE 11/28/2018 16 - Unknown 11 - Vomiting Date Reviewed: 07/26/2024 Reviewed by: Ramos Solis LPN - Fully Assessed Prescriptions as of 08/17/2024 - albuterol (PROVENTIL) 2.5 mg /3 mL (0.083 %) nebulizer solution INHALE WITH 1 VIAL IN NEBULIZER EVERY SIX HOURS NEEDED - rosuvastatin (CRESTOR) 10 mg tablet Take 1 tablet by mouth daily at bedtime. - metFORMIN (GLUCOPHAGE) 500 mg tablet Take 2 tablets by mouth two times a day with meals. - blood sugar diagnostic ([employer] ULTRA TEST) test strip Monitor blood sugar daily and as needed. - ticagrelor (BRILINTA) 90 mg tablet Take 90 mg by mouth two times a day. On hold until after procedure - amLODIPine (NORVASC) 5 mg tablet Take 1 tablet by mouth once daily. - glimepiride (AMARYL) 4 mg tablet Take 1 tablet by mouth daily with breakfast. - metoprolol tartrate, short acting, (LOPRESSOR) 25 mg tablet Take 1 tablet by mouth two times a day. - montelukast (SINGULAIR) 10 mg tablet Take 1 tablet by mouth daily at bedtime. - omeprazole (PRILOSEC) 40 mg capsule Take 1 capsule by mouth two times a day. - pioglitazone (ACTOS) 45 mg tablet Take 1 tablet by mouth once daily. - lisinopril-hydroCHLOROthi azide (ZESTORETIC) 20-12.5 mg per tablet Take 1 tablet by mouth once daily. - ketoconazole (NIZORAL) 2 % cream Apply to affected area once daily for 10 days. - NYSTOP powder APPLY TO THE AFFECTED AREA(S) THREE TIMES DAILY - bacitracin 500 unit/gram ointment Apply to affected area two times a day. - sucralfate (CARAFATE) 1 gram tablet Take 1 g by mouth three times a day. 1/2 hour before meals - tiZANidine (ZANAFLEX) 2 mg tablet Take 2 tablets by mouth every 8 hours as needed. - budesonide (PULMICORT) 0.5 mg/2 mL nebulizer solution mix 2 ampules with saline and apply twice daily - lmxxpdlw-rkpfslymh-yitqpm ortisone (CORTISPORIN) 3.5-10,000-1 mg/mL-unit/mL-% otic suspension Use 3 Drops in both ears four times daily. - gel base no.41, bulk, (HYDROGEL) gel 1 Dose once daily. - lancets (ONE TOUCH DELICA) 33 gauge 1 Each once daily. - blood sugar diagnostic ([employer] ULTRA TEST) test strip 1 Strip before meals and at bedtime. Use as instructed - aspirin, enteric coated (ASPIRIN, ENTERIC COATED) 81 mg EC tablet Take 81 mg by mouth once daily. - lancets (TRUEPLUS LANCETS) 33 gauge Monitor blood sugar daily and as needed. - ascorbic acid, vitamin C, (VITAMIN C) 500 mg tablet Take by mouth. - multivitamin tablet Take by mouth. - traMADol (ULTRAM) 50 mg tablet Take 50 mg by mouth every 6 hours as needed for pain. - methylcellulose (CITRUCEL ORAL) Take by mouth. - diclofenac (VOLTAREN) 1 % topical gel Apply to affected area four times daily. - mag carb/aluminum hydrox/algin (GAVISCON ORAL) Take by mouth. - B-complex with vitamin C (SUPER B COMPLEX-VITAMIN C ORAL) Take by mouth. - FA/mv,Ca,iron,min/lycopen e/lut (MULTIVITAL ORAL) Take by mouth. - calcium carbonate/vitamin D3 (CALCIUM 500 + D ORAL) Take by mouth. - cetirizine HCl (ZYRTEC ORAL) Take by mouth. - ubidecarenone (CO Q-10 ORAL) Take by mouth. Problem List As Of Date 08/17/2024 Noted Resolved Diabetes mellitus type 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 (H*05/22/2022 Allergic rhinitis [J30.9] 06/05/2019 Asthma [J45.909] 03/01/2017 Essential (primary) hypertension [I10] 03/01/2017 Hypercholesterolemia [E78.00] 07/24/2022 Insomnia [G47.00] 01/26/2018 Polyarthralgia [M25.50] 03/07/2018 Spinal stenosis [M48.00] 06/24/2020 Aortic atherosclerosis (HCC) [I70.0] 11/23/2018 Abnormal cervical Papanicolaou smear [R87.619] 06/16/2022 Bladder pain [R39.89] 12/30/2022 Burping [R14.2] 12/29/2022 Arteriosclerosis of coronary artery [I25.10] 11/18/2022 Diabetes 1.5, 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 Normal [facility] CNPNon 08-14-2024 CNPN Telephone (FAMPLA) ----- JANESSA BARON ([id number]) 1950 F Date Time Provider Department 08/14/24 KALI BACON During your visit today, we recorded the following information about you: Ramos Solis LPN 08/14/2024 9:41 AM Signed ----- Message from Kali Bacon MD sent at 08/13/2024 10:49 AM EST ----- CV is low with anemia. Check iron levels. Ramos Solis LPN 08/14/2024 9:43 AM Signed Patient notified of result information on My Chart. Notification will be sent to this nurse if message has not been read within 2 days. Patient will be contacted by another form of communication if notification of not reading My Chart message is received. Ramos Solis LPN August 14, 2024 9:42 AM Ramos Solis LPN 08/17/2024 3:12 PM Signed Patient notified of information, verbalized understanding. No questions, comments, or concerns at this time. Ramos Solis LPN August 17, 2024 3:12 PM Allergies As of Date: 08/14/2024 Noted Allergy Reaction METOCLOPRAMIDE 01/31/2017 16 - Unknown SULFAMETHOXAZOLE-TRIMETHO PRIM 04/01/2017 16 - Unknown MORPHINE 07/24/2020 16 - Unknown ACETAMINOPHEN 04/07/2023 16 - Unknown AUGMENTIN (AMOXICILLIN-POT CLAVUL*04/27/2018 2 - Rash CEFZIL (CEFPROZIL) 04/27/2018 2 - Rash DAYQUIL ALLERGY 12-HR 04/27/2018 4 - Hives DEXTROMETHORPHAN 01/31/2017 4 - Hives DOXYLAMINE 01/31/2017 4 - Hives ERYTHROMYCIN 04/27/2018 2 - Rash IODINATED CONTRAST MEDIA 05/22/2019 4 - Hives IVP DYE (IODINE) 04/27/2018 16 - Unknown Comments: knot on head LINCOMYCIN 04/27/2018 2 - Rash PSEUDOEPHEDRINE 01/31/2017 4 - Hives REGLAN (METOCLOPRAMIDE HCL) 04/27/2018 5 - Intolerance DZPCCNY-TDQ-WJW REDUCTASE INHIBIT*01/31/2017 16 - Unknown Comments: Other reaction(s): Other TEQUIN (GATIFLOXACIN) 04/27/2018 2 - Rash DOXYCYCLINE 11/28/2018 16 - Unknown 11 - Vomiting Date Reviewed: 07/26/2024 Reviewed by: Ramos Solis LPN - Fully Assessed Reason for Visit: Results [95] Prescriptions as of 08/17/2024 - albuterol (PROVENTIL) 2.5 mg /3 mL (0.083 %) nebulizer solution INHALE WITH 1 VIAL IN NEBULIZER EVERY SIX HOURS NEEDED - rosuvastatin (CRESTOR) 10 mg tablet Take 1 tablet by mouth daily at bedtime. - metFORMIN (GLUCOPHAGE) 500 mg tablet Take 2 tablets by mouth two times a day with meals. - blood sugar diagnostic ([employer] ULTRA TEST) test strip Monitor blood sugar daily and as needed. - ticagrelor (BRILINTA) 90 mg tablet Take 90 mg by mouth two times a day. On hold until after procedure - amLODIPine (NORVASC) 5 mg tablet Take 1 tablet by mouth once daily. - glimepiride (AMARYL) 4 mg tablet Take 1 tablet by mouth daily with breakfast. - metoprolol tartrate, short acting, (LOPRESSOR) 25 mg tablet Take 1 tablet by mouth two times a day. - montelukast (SINGULAIR) 10 mg tablet Take 1 tablet by mouth daily at bedtime. - omeprazole (PRILOSEC) 40 mg capsule Take 1 capsule by mouth two times a day. - pioglitazone (ACTOS) 45 mg tablet Take 1 tablet by mouth once daily. - lisinopril-hydroCHLOROthi azide (ZESTORETIC) 20-12.5 mg per tablet Take 1 tablet by mouth once daily. - ketoconazole (NIZORAL) 2 % cream Apply to affected area once daily for 10 days. - NYSTOP powder APPLY TO THE AFFECTED AREA(S) THREE TIMES DAILY - bacitracin 500 unit/gram ointment Apply to affected area two times a day. - sucralfate (CARAFATE) 1 gram tablet Take 1 g by mouth three times a day. 1/2 hour before meals - tiZANidine (ZANAFLEX) 2 mg tablet Take 2 tablets by mouth every 8 hours as needed. - budesonide (PULMICORT) 0.5 mg/2 mL nebulizer solution mix 2 ampules with saline and apply twice daily - eqeveget-vvlmlssyv-qcvroc ortisone (CORTISPORIN) 3.5-10,000-1 mg/mL-unit/mL-% otic suspension Use 3 Drops in both ears four times daily. - gel base no.41, bulk, (HYDROGEL) gel 1 Dose once daily. - lancets (ONE TOUCH DELICA) 33 gauge 1 Each once daily. - blood sugar diagnostic (ONETOUCH ULTRA TEST) test strip 1 Strip before meals and at bedtime. Use as instructed - aspirin, enteric coated (ASPIRIN, ENTERIC COATED) 81 mg EC tablet Take 81 mg by mouth once daily. - lancets (TRUEPLUS LANCETS) 33 gauge Monitor blood sugar daily and as needed. - ascorbic acid, vitamin C, (VITAMIN C) 500 mg tablet Take by mouth. - multivitamin tablet Take by mouth. - traMADol (ULTRAM) 50 mg tablet Take 50 mg by mouth every 6 hours as needed for pain. - methylcellulose (CITRUCEL ORAL) Take by mouth. - diclofenac (VOLTAREN) 1 % topical gel Apply to affected area four times daily. - mag carb/aluminum hydrox/algin (GAVISCON ORAL) Take by mouth. - B-complex with vitamin C (SUPER B COMPLEX-VITAMIN C ORAL) Take by mouth. - FA/mv,Ca,iron,min/lycopen e/lut (MULTIVITAL ORAL) Take by mouth. - calcium carbonate/vitamin D3 (CALCIUM 500 + D ORAL) Take by mouth. - cetirizine HCl (ZYRTEC ORAL) (more content not included)... [facility] Yadiel 08-13-2024 CNPN Telephone (FAMPLA) ----- LORAINEJANESSA ([id number]) 1950 F Date Time Provider Department 08/13/24 [facility] During your visit today, we recorded the following information about you: Allergies As of Date: 08/13/2024 Noted Allergy Reaction METOCLOPRAMIDE 01/31/2017 16 - Unknown SULFAMETHOXAZOLE-TRIMETHO PRIM 04/01/2017 16 - Unknown MORPHINE 07/24/2020 16 - Unknown ACETAMINOPHEN 04/07/2023 16 - Unknown AUGMENTIN (AMOXICILLIN-POT CLAVUL*04/27/2018 2 - Rash CEFZIL (CEFPROZIL) 04/27/2018 2 - Rash DAYQUIL ALLERGY 12-HR 04/27/2018 4 - Hives DEXTROMETHORPHAN 01/31/2017 4 - Hives DOXYLAMINE 01/31/2017 4 - Hives ERYTHROMYCIN 04/27/2018 2 - Rash IODINATED CONTRAST MEDIA 05/22/2019 4 - Hives IVP DYE (IODINE) 04/27/2018 16 - Unknown Comments: knot on head LINCOMYCIN 04/27/2018 2 - Rash PSEUDOEPHEDRINE 01/31/2017 4 - Hives REGLAN (METOCLOPRAMIDE HCL) 04/27/2018 5 - Intolerance QBTGLDF-GOU-QSX REDUCTASE INHIBIT*01/31/2017 16 - Unknown Comments: Other reaction(s): Other TEQUIN (GATIFLOXACIN) 04/27/2018 2 - Rash DOXYCYCLINE 11/28/2018 16 - Unknown 11 - Vomiting Date Reviewed: 07/26/2024 Reviewed by: Ramos Solis LPN - Fully Assessed Primary Visit Diagnosis:Anemia, unspecified type [D64.9] Order(s):IRON AND TIBC [SQIRON] Order #: [id number] FUTURE FERRITIN [SQFERR] Order #: [id number] FUTURE Prescriptions as of 08/13/2024 - albuterol (PROVENTIL) 2.5 mg /3 mL (0.083 %) nebulizer solution INHALE WITH 1 VIAL IN NEBULIZER EVERY SIX HOURS NEEDED - rosuvastatin (CRESTOR) 10 mg tablet Take 1 tablet by mouth daily at bedtime. - metFORMIN (GLUCOPHAGE) 500 mg tablet Take 2 tablets by mouth two times a day with meals. - blood sugar diagnostic ([employer] ULTRA TEST) test strip Monitor blood sugar daily and as needed. - ticagrelor (BRILINTA) 90 mg tablet Take 90 mg by mouth two times a day. On hold until after procedure - amLODIPine (NORVASC) 5 mg tablet Take 1 tablet by mouth once daily. - glimepiride (AMARYL) 4 mg tablet Take 1 tablet by mouth daily with breakfast. - metoprolol tartrate, short acting, (LOPRESSOR) 25 mg tablet Take 1 tablet by mouth two times a day. - montelukast (SINGULAIR) 10 mg tablet Take 1 tablet by mouth daily at bedtime. - omeprazole (PRILOSEC) 40 mg capsule Take 1 capsule by mouth two times a day. - pioglitazone (ACTOS) 45 mg tablet Take 1 tablet by mouth once daily. - lisinopril-hydroCHLOROthi azide (ZESTORETIC) 20-12.5 mg per tablet Take 1 tablet by mouth once daily. - ketoconazole (NIZORAL) 2 % cream Apply to affected area once daily for 10 days. - NYSTOP powder APPLY TO THE AFFECTED AREA(S) THREE TIMES DAILY - bacitracin 500 unit/gram ointment Apply to affected area two times a day. - sucralfate (CARAFATE) 1 gram tablet Take 1 g by mouth three times a day. 1/2 hour before meals - tiZANidine (ZANAFLEX) 2 mg tablet Take 2 tablets by mouth every 8 hours as needed. - budesonide (PULMICORT) 0.5 mg/2 mL nebulizer solution mix 2 ampules with saline and apply twice daily - cfisulaf-kosqiqpiy-baeyzf ortisone (CORTISPORIN) 3.5-10,000-1 mg/mL-unit/mL-% otic suspension Use 3 Drops in both ears four times daily. - gel base no.41, bulk, (HYDROGEL) gel 1 Dose once daily. - lancets (ONE TOUCH DELICA) 33 gauge 1 Each once daily. - blood sugar diagnostic ([employer] ULTRA TEST) test strip 1 Strip before meals and at bedtime. Use as instructed - aspirin, enteric coated (ASPIRIN, ENTERIC COATED) 81 mg EC tablet Take 81 mg by mouth once daily. - lancets (TRUEPLUS LANCETS) 33 gauge Monitor blood sugar daily and as needed. - ascorbic acid, vitamin C, (VITAMIN C) 500 mg tablet Take by mouth. - multivitamin tablet Take by mouth. - traMADol (ULTRAM) 50 mg tablet Take 50 mg by mouth every 6 hours as needed for pain. - methylcellulose (CITRUCEL ORAL) Take by mouth. - diclofenac (VOLTAREN) 1 % topical gel Apply to affected area four times daily. - mag carb/aluminum hydrox/algin (GAVISCON ORAL) Take by mouth. - B-complex with vitamin C (SUPER B COMPLEX-VITAMIN C ORAL) Take by mouth. - FA/mv,Ca,iron,min/lycopen e/lut (MULTIVITAL ORAL) Take by mouth. - calcium carbonate/vitamin D3 (CALCIUM 500 + D ORAL) Take by mouth. - cetirizine HCl (ZYRTEC ORAL) Take by mouth. - ubidecarenone (CO Q-10 ORAL) Take by mouth. Problem List As Of Date 08/13/2024 Noted Resolved Diabetes mellitus type 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 (H*05/22/2022 Allergic rhinitis [J30.9] 06/05/2019 Asthma [J45.909] 03/01/2017 Essential (primary) hypertension [I10] 03/01/2017 Hypercholesterolemia [E78.00] 07/24/2022 Insomnia [G47.00] 01/26/2018 Polyarthralgia [M25.50] 03/07/2018 Spinal stenosis [M48.00] 06/24/2020 Aortic atherosclerosis (HCC) [I70.0] 11/23/2018 Abnormal cervical Papanicolaou smear [R87.619] 06/16/2022 Bladder pain [R39.89] 12/30/2022 Burping [R14 (more content not included)... [facility] CBC W Auto Differential pane l (Bld)on 07-27-2024 Basophils (Bld) [#/Vol] 0.05 10*3/uL Normal <0.11 [facility] Comment on above: Order Comment: Speci men Type: BLOOD SPECIMEN Ordering Facility: [facility] Address: [address] [place] [address] Performed By: #### 2 132-9, 8 #### [facility] CLIA [id number] [address] [place] [address] [place] Basophils/100 WBC (Bld) 0.4 % Normal [facility] Comment on above: Order Comment: Speci men Type: BLOOD SPECIMEN Ordering Facility: [facility] Address: [address] [place] [address] Performed By: #### 2 132-9, 8 #### [facility] CLIA [id number] [address] [place] [address] [place] Differential cell count method Nom (Bld) Auto Normal [facility] Comment on above: Order Comment: Speci men Type: BLOOD SPECIMEN Ordering Facility: [facility] Address: [address] [place] [address] Performed By: #### 2 132-9, 8 #### [facility] CLIA [id number] [address] [place] [address] [place] Eosinophils (Bld) [#/Vol] 0.25 10*3/uL Normal <0.46 [facility] Comment on above: Order Comment: Speci men Type: BLOOD SPECIMEN Ordering Facility: [facility] Address: [address] [place] [address] Performed By: #### 2 132-9, 8 #### [facility] CLIA [id number] [address] [place] [address] [place] Eosinophils/100 WBC (Bld) 2.2 % Normal [facility] Comment on above: Order Comment: Speci men Type: BLOOD SPECIMEN Ordering Facility: [facility] Address: [address] [place] [address] Performed By: #### 2 132-9, 2283-8 #### [facility] CLIA [id number] [address] [place] [address] [place] Erythrocyte distribution width (RBC) [Ratio] 17.1 % High 11.5-15.0 [facility] Comment on above: Order Comment: Speci men Type: BLOOD SPECIMEN Ordering Facility: [facility] Address: [address] [place] [address] Performed By: #### 2 132-9, 8 #### [facility] CLIA [id number] [address] [place] [address] [place] Hematocrit (Bld) [Volume fraction] 34.1 % Low 36.0-46.0 [facility] Comment on above: Order Comment: Speci men Type: BLOOD SPECIMEN Ordering Facility: [facility] Address: [address] [place] [address] Performed By: #### 2 132-9, 8 #### [facility] CLIA [id number] [address] [place] [address] [place] Hemoglobin (Bld) [Mass/Vol] 9.7 g/dL Low 11.5-15.5 [facility] Comment on above: Order Comment: Speci men Type: BLOOD SPECIMEN Ordering Facility: [facility] Address: [address] [place] [address] Performed By: #### 2 132-9, 8 #### [facility] CLIA [id number] [address] [place] [address] [place] Immature granulocytes (Bld) [#/Vol] 0.05 10*3/uL Normal <0.10 [facility] Comment on above: Order Comment: Speci men Type: BLOOD SPECIMEN Ordering Facility: [facility] Address: [address] [place] [address] Performed By: #### 2 132-9, 8 #### [facility] CLIA [id number] [address] [place] [address] [place] Immature granulocytes/100 WBC (Bld) 0.4 % Normal [facility] Comment on above: Order Comment: Speci men Type: BLOOD SPECIMEN Ordering Facility: [facility] Address: [address] [place] [address] Performed By: #### 2 132-9, 8 #### [facility] CLIA [id number] [address] [place] [address] [place] Lymphocytes (Bld) [#/Vol] 3.60 10*3/uL Normal 1.00-4.00 [facility] Comment on above: Order Comment: Speci men Type: BLOOD SPECIMEN Ordering Facility: [facility] Address: [address] [place] [address] Performed By: #### 2 132-9, 8 #### [facility] CLIA [id number] [address] [place] [address] [place] Lymphocytes/100 WBC (Bld) 32.0 % Normal [facility] Comment on above: Order Comment: Speci men Type: BLOOD SPECIMEN Ordering Facility: [facility] Address: [address] [place] [address] Performed By: #### 2 132-9, 8 #### [facility] CLIA [id number] [address] [place] [address] [place] MCH (RBC) [Entitic mass] 21.7 pg Low 26.0-34.0 [facility] Comment on above: Order Comment: Speci men Type: BLOOD SPECIMEN Ordering Facility: [facility] Address: [address] [place] [address] Performed By: #### 2 132-9, 8 #### [facility] CLIA [id number] [address] [place] [address] [place] MCHC (RBC) [Mass/Vol] 28.4 g/dL Low 30.5-36.0 [facility] Comment on above: Order Comment: Speci men Type: BLOOD SPECIMEN Ordering Facility: [facility] Address: [address] [place] [address] Performed By: #### 2 132-9, 8 #### [facility] CLIA [id number] [address] [place] [address] [place] MCV (RBC) [Entitic vol] 76.1 fL Low 80.0-100.0 [facility] Comment on above: Order Comment: Speci men Type: BLOOD SPECIMEN Ordering Facility: [facility] Address: [address] [place] [address] Performed By: #### 2 132-9, 8 #### [facility] CLIA [id number] [address] [place] [address] [place] Monocytes (Bld) [#/Vol] 1.00 10*3/uL High <0.87 [facility] Comment on above: Order Comment: Speci men Type: BLOOD SPECIMEN Ordering Facility: [facility] Address: [address] [place] [address] Performed By: #### 2 132-9, 8 #### [facility] CLIA [id number] [address] [place] [address] [place] Monocytes/100 WBC (Bld) 8.9 % Normal [facility] Comment on above: Order Comment: Speci men Type: BLOOD SPECIMEN Ordering Facility: [facility] Address: [address] [place] [address] Performed By: #### 2 132-9, 8 #### [facility] CLIA [id number] [address] [place] [address] [place] Neutrophils (Bld) [#/Vol] 6.31 10*3/uL Normal 1.45-7.50 [facility] Comment on above: Order Comment: Speci men Type: BLOOD SPECIMEN Ordering Facility: [facility] Address: [address] [place] [address] Performed By: #### 2 132-9, 8 #### [facility] CLIA [id number] [address] [place] [address] [place] Neutrophils/100 WBC (Bld) 56.1 % Normal [facility] Comment on above: Order Comment: Speci men Type: BLOOD SPECIMEN Ordering Facility: [facility] Address: [address] [place] [address] Performed By: #### 2 132-9, 8 #### [facility] CLIA [id number] [address] [place] [address] [place] Nucleated RBC (Bld) [#/Vol] 10*3/uL Normal <0.01 [facility] Comment on above: Order Comment: Speci men Type: BLOOD SPECIMEN Ordering Facility: [facility] Address: [address] [place] [address] Performed By: #### 2 132-9, 8 #### [facility] CLIA [id number] [address] [place] [address] [place] Nucleated RBC/100 WBC (Bld) [Ratio] 0.0 /100 WBC Normal [facility] Comment on above: Order Comment: Speci men Type: BLOOD SPECIMEN Ordering Facility: [facility] Address: [address] [place] [address] Performed By: #### 2 132-9, 8 #### [facility] CLIA [id number] [address] [place] [address] [place] Platelet mean volume (Bld) [Entitic vol] 9.6 fL Normal 9.0-12.7 [facility] Comment on above: Order Comment: Speci men Type: BLOOD SPECIMEN Ordering Facility: [facility] Address: [address] [place] [address] Performed By: #### 2 132-9, 2284-8 #### [facility] CLIA [id number] [address] [place] [address] [place] Platelets (Bld) [#/Vol] 404 10*3/uL High 150-400 [facility] Comment on above: Order Comment: Speci men Type: BLOOD SPECIMEN Ordering Facility: [facility] Address: [address] [place] [address] Performed By: #### 2 132-9, 2284-8 #### [facility] CLIA [id number] [address] [place] [address] [place] RBC (Bld) [#/Vol] 4.48 10*6/uL Normal 3.90-5.20 [facility] Comment on above: Order Comment: Speci men Type: BLOOD SPECIMEN Ordering Facility: [facility] Address: [address] [place] [address] Performed By: #### 2 132-9, 2283-8 #### [facility] CLIA [id number] [address] [place] [address] [place] WBC (Bld) [#/Vol] 11.26 10*3/uL High 3.70-11.00 [facility] Comment on above: Order Comment: Speci men Type: BLOOD SPECIMEN Ordering Facility: [facility] Address: [address] [place] [address] Performed By: #### 2 132-9, 2284-8 #### [facility] CLIA [id number] [address] [place] [address] [place] Comprehensive metabolic 2000 panelon 07-27-2024 Albumin [Mass/Vol] 4.1 g/dL Normal 3.9-4.9 [facility] Comment on above: Order Comment: Speci men Type: BLOOD SPECIMEN Ordering Facility: [facility] Address: [address] [place] [address] Performed By: #### 2 132-9, 2283-8 #### [facility] CLIA [id number] [address] [place], [place] [address] [place] ALP [Catalytic activity/Vol] 79 U/L Normal 34-123 [facility] Comment on above: Order Comment: Speci men Type: BLOOD SPECIMEN Ordering Facility: [facility] Address: [address] [place] [address] Performed By: #### 2 132-9, 8 #### [facility] CLIA [id number] [address] [place], [place] [address] [place] ALT [Catalytic activity/Vol] 10 U/L Normal 7-38 [facility] Comment on above: Order Comment: Speci men Type: BLOOD SPECIMEN Ordering Facility: [facility] Address: [address] [place] [address] Performed By: #### 2 132-9, 8 #### [facility] CLIA [id number] [address] [place], [place] [address] [place] Anion gap [Moles/Vol] 15 mmol/L Normal 8-15 [facility] Comment on above: Order Comment: Speci men Type: BLOOD SPECIMEN Ordering Facility: [facility] Address: [address] [place] [address] Performed By: #### 2 132-9, 8 #### [facility] CLIA [id number] [address] [place], [place] [address] [place] AST [Catalytic activity/Vol] 16 U/L Normal 13-35 [facility] Comment on above: Order Comment: Speci men Type: BLOOD SPECIMEN Ordering Facility: [facility] Address: [address] [place] [address] Performed By: #### 2 132-9, 2283-8 #### [facility] CLIA [id number] [address] [id number] [address] [place] Bilirubin [Mass/Vol] 0.2 mg/dL Normal 0.2-1.3 [facility] Comment on above: Order Comment: Speci men Type: BLOOD SPECIMEN Ordering Facility: [facility] Address: [address] [place] [address] Performed By: #### 2 132-9, 8 #### [facility] CLIA [id number] [address] [place] [address] [place] Calcium [Mass/Vol] 9.6 mg/dL Normal 8.5-10.2 [facility] Comment on above: Order Comment: Speci men Type: BLOOD SPECIMEN Ordering Facility: [facility] Address: [address] [place] [address] Performed By: #### 2 132-9, 2284-03 #### [facility] CLIA [id number] [address] [place] [address] [place] Chloride [Moles/Vol] 96 mmol/L Low 98-107 [facility] Comment on above: Order Comment: Speci men Type: BLOOD SPECIMEN Ordering Facility: [facility] Address: [address] [place] [address] Performed By: #### 2 132-9, 2284-03 #### [facility] CLIA [id number] [address] [place] [address] [place] CO2 [Moles/Vol] 26 mmol/L Normal 22-30 [facility] Comment on above: Order Comment: Speci men Type: BLOOD SPECIMEN Ordering Facility: [facility] Address: [address] [place], [place] [address] Performed By: #### 2 132-9, 8 #### [facility] CLIA [id number] [address] [place], [place] [address] [place] Creatinine [Mass/Vol] 0.72 mg/dL Normal 0.58-0.96 [facility] Comment on above: Order Comment: Speci men Type: BLOOD SPECIMEN Ordering Facility: [facility] Address: [address] [place] [address] Performed By: #### 2 132-9, 2284-8 #### [facility] CLIA [id number] [address] [place] [address] [place] Creatinine and Glomerular filtration rate.predicted panel (S/P/Bld) 90 mL/min/1.73m??? Normal >=60 [facility] Comment on above: Order Comment: Gadiel cisneros Type: BLOOD SPECIMEN Ordering Facility: [facility] Address: [address] [place] [address] Result Comment: Shauna mated Glomerular Filtration Rate (eGFR) is calculated using the 2020 CKD-EPI creatinine equation. This equation utilizes serum creatinine, sex, and age as parameters. The creatinine assay has traceable calibration to isotope dilution-mass spectrometry. Refer to KDIGO guidelines for clinical interpretation. In patients with unstable renal function, e.g. those with acute kidney injury, the eGFR may not accurately reflect actual GFR. Performed By: #### 2 132-9, 2284-8 #### [facility] CLIA [id number] [address] [place] [address] [place] Glucose [Mass/Vol] 151 mg/dL High 74-99 [facility] Comment on above: Order Comment: Gadiel cisneros Type: BLOOD SPECIMEN Ordering Facility: [facility] Address: [address] [place] [address] Result Comment: The [place] [employer] (ADA) provides guidance for cutoff values for fasting glucose and random glucose. The ADA defines fasting as no caloric intake for at least 8 hours. Fasting plasma glucose results between 100 to 125 mg/dL indicate increased risk for diabetes (prediabetes). Fasting plasma glucose results greater than or equal to 126 mg/dL meet the criteria for diagnosis of diabetes. In the absence of unequivocal hyperglycemia, results should be confirmed by repeat testing. In a patient with classic symptoms of hyperglycemia or hyperglycemic crisis, random plasma glucose results greater than or equal to 200 mg/dL meet the criteria for diagnosis of diabetes. Reference: Standards of Medical Care in Diabetes 2016, [place] [employer]. Diabetes Care. 2016.39(Suppl 1). Performed By: #### 2 132-9, 8 #### [facility] CLIA [id number] [address] [place] [address] [place] Potassium [Moles/Vol] 4.1 mmol/L Normal 3.7-5.1 [facility] Comment on above: Order Comment: Speci men Type: BLOOD SPECIMEN Ordering Facility: [facility] Address: [address] [place] [address] Performed By: #### 2 132-9, 8 #### [facility] CLIA [id number] [address] [place] [address] [place] Protein [Mass/Vol] 7.5 g/dL Normal 6.3-8.0 [facility] Comment on above: Order Comment: Speci men Type: BLOOD SPECIMEN Ordering Facility: [facility] Address: [address] [place] [address] Performed By: #### 2 132-9, 8 #### [facility] CLIA [id number] [address] [place] [address] [place] Sodium [Moles/Vol] 137 mmol/L Normal 136-144 [facility] Comment on above: Order Comment: Speci men Type: BLOOD SPECIMEN Ordering Facility: [facility] Address: [address] [place] [address] Performed By: #### 2 132-9, 8 #### [facility] CLIA [id number] [address] [place], [place] [address] [place] Urea nitrogen [Mass/Vol] 21 mg/dL Normal 7-21 [facility] Comment on above: Order Comment: Speci men Type: BLOOD SPECIMEN Ordering Facility: [facility] Address: [address] [place], [place] [address] Performed By: #### 2 132-9, 8 #### [facility] CLIA [id number] [address] [place] [address] [place] HbA1c (Bld)on 07-27-2024 Average glucose Estimated from glycated hemoglobin (Bld) [Mass/Vol] 160 mg/dL Normal [facility] Comment on above: Order Comment: Gadiel cisneros Type: BLOOD SPECIMEN Ordering Facility: [facility] Address: [address] [place] [address] Result Comment: eAG: (Estimated average glucose) is a calculated value from HgbA1c and is safety representative of the average blood glucose level in the last 2-3 month period. Performed By: #### 2 4321-2 #### [facility] CLIA [id number] [address] [place] [address] [place] HbA1c (Bld) [Mass fraction] 7.2 % High 4.3-5.6 [facility] Comment on above: Order Comment: Gadiel cisneros Type: BLOOD SPECIMEN Ordering Facility: [facility] Address: [address] [place] [address] Result Comment: Amer [place] Diabetes Association guidelines indicate that patients with HgbA1c in the range 5.7-6.4% are at increased risk for development of diabetes, and intervention by lifestyle modification may be beneficial. HgbA1c greater or equal to 6.5% is considered diagnostic of diabetes. Performed By: #### 2 4321-2 #### [facility] CLIA [id number] [address] [place] [address] [place] Lipid 1996 panelon 4 Cholesterol [Mass/Vol] 209 mg/dL High <200 [facility] Comment on above: Order Comment: Gadiel cisneros Type: BLOOD SPECIMEN Ordering Facility: [facility] Address: [address] [place] [address] Result Comment: <200 mg/dL, Desirable 200-239 mg/dL, Borderline high >239 mg/dL, High Performed By: #### 2 132-9, 2284-8 #### [facility] CLIA [id number] [address] [place] [address] [place] Cholesterol in HDL [Mass/Vol] 40 mg/dL Normal >39 [facility] Comment on above: Order Comment: Gadiel cisneros Type: BLOOD SPECIMEN Ordering Facility: [facility] Address: [address] [place] [address] Result Comment: 40-5 9 mg/dL, Acceptable >59 mg/dL, High: Negative risk factor for coronary heart disease <40 mg/dL, Low: Positive risk factor for coronary heart disease Performed By: #### 2 132-9, 8 #### [facility] CLIA [id number] [address] [place] [address] OF [facility] Cholesterol in LDL [Mass/Vol] 112 mg/dL High <100 [facility] Comment on above: Order Comment: Gadiel cisneros Type: BLOOD SPECIMEN Ordering Facility: [facility] Address: [address] [place] [address] Result Comment: <100 mg/dL, Optimal 100-129 mg/dL, Near optimal/above optimal 130-159 mg/dL, Borderline high 160-189 mg/dL, High >189 mg/dL, Very high Secondary prevention optimal LDL Cholesterol levels are recommended to be < 70 mg/dL Performed By: #### 2 132-9, 8 #### [facility] CLIA [id number] [address] [place] [address] Cholesterol in LDL/Cholesterol in HDL [Mass ratio] 2.80 {ratio} High <2.54 [facility] Comment on above: Order Comment: Gadiel cisneros Type: BLOOD SPECIMEN Ordering Facility: [facility] Address: [address] [place] [address] Result Comment: Refe rence: 1. National Cholesterol Education Program ATP III Guideline At-A-Glance Quick Desk Reference: National Heart, Lung, and Blood [place]. National Institutes of Health. 2001: NIH Publication No. 01-3305. 2. An International Atherosclerosis Society position paper: global recommendations for the management of dyslipidemia: executive summary, Atherosclerosis. 2014: 232(2):410-413. Performed By: #### 2 132-9, 2283-8 #### [facility] CLIA [id number] [address] [place] [address] [place] Cholesterol in VLDL [Mass/Vol] 57 mg/dL High <30 [facility] Comment on above: Order Comment: Juani men Type: BLOOD SPECIMEN Ordering Facility: [facility] Address: [address] [place] [address] Performed By: #### 2 132-9, 8 #### [facility] CLIA [id number] [address] [place] [address] [place] Cholesterol non HDL [Mass/Vol] 169 mg/dL High <130 [facility] Comment on above: Order Comment: Juani men Type: BLOOD SPECIMEN Ordering Facility: [facility] Address: [address] [place] [address] Result Comment: <130 mg/dL, Optimal 130-159 mg/dL, Near optimal/above optimal 160-189 mg/dL, Borderline high 190-219 mg/dL, High >219 mg/dL, Very high Secondary prevention optimal non HDL Cholesterol levels are recommended to be <100 mg/dL Performed By: #### 2 132-9, 8 #### [facility] CLIA [id number] [address] [place] [address] [place] Cholesterol.total/Cho lesterol in HDL [Mass ratio] 5.23 {ratio} High <5.10 [facility] Comment on above: Order Comment: Speci men Type: BLOOD SPECIMEN Ordering Facility: [facility] Address: [address] [place] [address] Performed By: #### 2 132-9, 8 #### [facility] CLIA [id number] [address] [place] [address] [place] FASTING TIME 12 hrs Normal [facility] Comment on above: Order Comment: Juani men Type: BLOOD SPECIMEN Ordering Facility: [facility] Address: [address] [place] [address] Performed By: #### 2 132-9, 8 #### [facility] CLIA [id number] [address] [place] [address] [place] Triglyceride [Mass/Vol] 285 mg/dL High <150 [facility] Comment on above: Order Comment: Speci men Type: BLOOD SPECIMEN Ordering Facility: [facility] Address: [address] [place] [address] Result Comment: <150 mg/dL, Normal 150-199 mg/dL, Borderline high 200-499 mg/dL, High >499 mg/dL, Very high Performed By: #### 2 132-9, 2284-8 #### [facility] CLIA [id number] [address] [place] [address] [place] CNOVon 07-26-2024 CNOV Office Visit (FAMMAS ) ----- LORAINEJANESSA Lawrence ([id number]) 1950 F Date Time Provider Department 07/26/24 2:30 PM KALI BACON During your visit today, we recorded the following information about you: Temperature Pulse Respiration Blood pressure 97.9 degrees 98/minute 18/minute 134/82 Weight Height 92.1 kg 1.6 m Ramos Solis LPN 07/30/2024 8:49 PM Signed Due health maintenance Urine Albumin:Creatinine Ratio declined Diabetic Foot Exam declined Spirometry declined Hepatitis C Screening declined DTaP,Tdap,Td Vaccine(1 - Tdap) declined Mammogram Screening scheduled [place] 08/31/24 Bone Density Screening scheduled [place] 08/31/24 BP Controlled (<130/80) HbA1C ordered LDL Cholesterol ordered Discuss left trigger thumb and upcoming L4-L5 surgery Ramos Solis LPN July 26, 2024 2:17 PM Kali Bacon MD 07/30/2024 8:49 PM Signed Subjective Janessa Baron is a 73 year old female. Janessa presents today for for her Medicare wellness visit. Additionally she follows up for multiple medical problems. See list. Her chronic medical problems have been stable.She denies any cardiac symptoms. Blood pressures been under good control on her current regimen. Her A-fib has been stable without RVR. She reports her sugars have been under good control on her current medications. Review of Systems Constitutional: Negative. HENT: Negative. [...] Never Smokeless tobacco: Never Vaping Use Vaping status: Never Used Substance Use Topics Alcohol use: Not Currently Drug use: Not Currently ALLERGIES Allergen Reactions Metoclopramide Unknown Sulfamethoxazole-Tr* Unknown Morphine Unknown Acetaminophen Unknown Augmentin [Amoxicil* Rash Cefzil [Cefprozil] Rash Dayquil Allergy 12-* Hives Dextromethorphan Hives Doxylamine Hives Erythromycin Rash Iodinated Contrast * Hives Ivp Dye [Iodine] Unknown knot on head Lincomycin Rash Pseudoephedrine Hives Reglan [Metoclopram* Intolerance Adxvnte-Rec-Gbi Red* Unknown Other reaction(s): Other Tequin [Gatifloxaci* Rash Doxycycline Unknown, Vomiting MEDICATIONS: metFORMIN (GLUCOPHAGE) 500 mg tablet Take 2 tablets by mouth two times a day with meals. blood sugar diagnostic ([employer] ULTRA TEST) test strip Monitor blood sugar daily and as needed. ticagrelor (BRILINTA) 90 mg tablet Take 90 mg by mouth two times a day. On hold until after procedure amLODIPine (NORVASC) 5 mg tablet Take 1 tablet by mouth once daily. glimepiride (AMARYL) 4 mg tablet Take 1 tablet by mouth daily with breakfast. metoprolol tartrate, short acting, (LOPRESSOR) 25 mg tablet Take 1 tablet by mouth two times a day. montelukast (SINGULAIR) 10 mg tablet Take 1 tablet by mouth daily at bedtime. omeprazole (PRILOSEC) 40 mg capsule Take 1 capsule by mouth two times a day. pioglitazone (ACTOS) 45 mg tablet Take 1 tablet by mouth once daily. lisinopril-hydroCHLOROthi azide (ZESTORETIC) 20-12.5 mg per tablet Take 1 tablet by mouth once daily. ketoconazole (NIZORAL) 2 % cream Apply to affected area once daily for 10 days. NYSTOP powder APPLY TO THE AFFECTED AREA(S) THREE TIMES DAILY bacitracin 500 unit/gram ointment Apply to affected area two times a day. sucralfate (CARAFATE) 1 gram tablet Take 1 g by mouth three times a day. 1/2 hour before meals tiZANidine (ZANAFLEX) 2 mg tablet Take 2 tablets by mouth every 8 hours as needed. budesonide (PULMICORT) 0.5 mg/2 mL nebulizer solution mix 2 ampules with saline and apply twice daily fiihvyle-vuztuckht-nqbyqh ortisone (CORTISPORIN) 3.5-10,000-1 mg/mL-unit/mL-% otic suspension Use 3 Drops in both ears four times daily. gel base no.41, bulk, (HYDROGEL) gel 1 Dose once daily. lancets (ONE TOUCH DELICA) 33 gauge 1 Each once daily. blood sugar diagnostic (ONETOU (more content not included)... Normal [facility] Orthopedic Visit Reporton Orthopedic Visit Report [facility] [address] [place] [address] OFFICE VISIT Date of Service: 07/20/24 MR#: [id number] Acct: [id number] Name: JANESSA BARON Rep #: [id number] : 1950 Provider: Dr. Dominic Issa MD Age/Sex: 73/F Location: [facility] Status: Signed Intake Vital Signs 09/18/24 14:23 Height 5 ft 3 in Intake Visit Reasons: LUMBAR SPINE Allergies doxycycline Allergy (Mild, Verified 07/20/24 08:59) unknown sulfamethoxazole (From Bactrim) Allergy (Mild, Verified 07/20/24 08:59) unknown trimethoprim (From Bactrim) Allergy (Mild, Verified 07/20/24 08:59) unknown amoxicillin (From Augmentin) Allergy (Verified 07/20/24 08:59) Hives cefprozil (From Cefzil) Allergy (Verified 07/20/24 08:59) Hives clavulanic acid (From Augmentin) Allergy (Verified 07/20/24 08:59) Hives dextromethorphan (From NyQuil) Allergy (Verified 07/20/24 08:59) Hives doxylamine (From NyQuil) Allergy (Verified 07/20/24 08:59) Hives erythromycin base Allergy (Verified 07/20/24 08:59) Hives gatifloxacin (From Tequin) Allergy (Verified 07/20/24 08:59) Hives lincomycin Allergy (Verified 07/20/24 08:59) Hives metoclopramide (From Reglan) Allergy (Verified 07/20/24 08:59) Other pseudoephedrine (From NyQuil) Allergy (Verified 07/20/24 08:59) Hives morphine Adverse Reaction (Intermediate, Verified 07/20/24 08:59) tachycardia Medications ???Medication ???Instructions ???Recorded ???Confirmed ???Type budesonide-formoterol HFA 160 2 puff inhalation BID PRN Asthma 05/21/16 07/20/24 History mcg-4.5 mcg/actuation aerosol inhaler montelukast 10 mg tablet 10 mg PO DAILY ASTHMA 05/21/16 07/20/24 History cetirizine 10 mg capsule (Zyrtec) 10 mg PO DAILY PRN allergy symptoms 05/18/18 07/20/24 History Al hyd-Mg tr-alg ac-sod bicarb 80 1 tab PO DAILY PRN GAS 05/22/19 07/20/24 History mg-14.2 mg chewable tablet (Gaviscon) metformin 1,000 mg 24 hr 1,000 mg PO BID DIABETES 05/22/19 07/20/24 History tablet,extended release (gastric reten.) albuterol sulfate 90 mcg/actuation 2 puff inhalation Q6H PRN 11/04/22 07/20/24 History aerosol inhaler Shortness Of Breath Or Wheezing aspirin 81 mg tablet,delayed 81 mg PO DAILY HEART HEALTH 12/21/22 07/20/24 History release (Adult Low Dose Aspirin) metoprolol tartrate 25 mg tablet 25 mg PO BID HTN 12/21/22 07/20/24 History tramadol 50 mg tablet 50 mg PO 4X/DAY PRN Pain 01/04/23 07/20/24 History glimepiride 4 mg tablet (Amaryl) 4 mg PO DAILY DIABETES 03/11/23 07/20/24 History amlodipine 5 mg tablet (Norvasc) 5 mg PO DAILY HTN 09/17/23 07/20/24 History nystatin 100,000 unit/gram topical 1 applic topical TID YEAST 09/17/23 07/20/24 Rx powder (Nystop) INFECTION #45 ea rosuvastatin 10 mg tablet (Crestor) 10 mg PO DAILY HLD 09/17/23 07/20/24 History omeprazole 40 mg capsule,delayed 40 mg PO BID GERD 10/12/23 07/20/24 History release pioglitazone 45 mg tablet (Actos) 45 mg PO DAILY DIABETES 01/11/24 07/20/24 History lisinopril 20 1 tab PO DAILY htn 01/25/24 07/20/24 History mg-hydrochlorothiazide 12.5 mg tablet docusate sodium 100 mg capsule 100 mg PO BID PRN PRN Constipation 01/27/24 07/20/24 Rx 5 days #10 caps tizanidine 2 mg capsule (Zanaflex) 2 mg PO Q8H PRN 05/03/24 07/20/24 History triamcinolone acetonide 0.1 % 1 applic topical QDAY 05/03/24 07/20/24 History topical cream Have you fallen in the past year?: No PFSH Medical History Preop testing Wears glasses Anxiety Rash Restless legs History of hiatal hernia Heartburn Gastric reflux History of IBS Non-smoker History of edema History of echocardiogram Cardiology follow-up encounter Left carotid bruit Pressure ulcer of left buttock, stage 2 Pressure ulcer of right buttock, stage 2 Postoperative atrial fibrillation H/o difficulty anesthesia Stomach inflammation Hiatal hernia Mass of both breasts on mammogram Carotid stenosis High triglycerides Hyperlipidemia Hypertension Gastrointestinal problem Diabetes Asthma Arthritis Surgical History History of colonoscopy History of esophagogastroduodenoscop y (EGD) History of cardiac catheterization H/O removal of cyst History of lumpectomy History of cataract surgery H/O knee surgery History of coronary artery bypass graft x 3 ( 11/26/22) fallopian tube surgery Hx of cholecystectomy H/O oophorectomy H/O tubal ligation History of ear surgery Family History Father No problems noted. Mother CVA (cerebral vascular accident) Heart disease Sister Colon cancer Diabetes Brother Thyroid disorder Thyroid cancer Sister Cancer vag (more content not included)... Normal [facility] Spine Lumbar (Routine)on Spine Lumbar (Routine) [facility] [address] [place] [address] Spine Lumbar (Routine) MR#: [id number] Acct: [id number] Name: JANESSA BARON Rep #: [id number] : 1950 F 73 From: Tosin ramirez MD PCP: Dr. Kali Bacon MD Status: REG [facility] Study: Spine Lumbar (Routine) Date of Exam: 07/17/24 Exam# [id number] Ordering Dr: Dominic Issa MD [id number] HISTORY: back pain into buttocks, legs and feet x 4 yrs. TECHNIQUE: Multiplanar and multisequence MR images of the lumbar spine were obtained without intravenous contrast. 121 images. COMPARISON: XR 02/03/2024, MR 07/06/2020. FINDINGS: VERTEBRAE: Vertebral body heights maintained. Mild degenerative endplate changes at L3-4, L4-5, and L5-S1. ALIGNMENT: 3 mm anterolisthesis of L4-5. CONUS: Normal morphology and position of the conus medullaris at the lower L1 level. INTERVERTEBRAL DISCS: T12-L1: No significant posterior disc protrusion, central canal stenosis, or foraminal narrowing based on the sagittal images. L1-2, L2-3: Minimal disc bulges with mild facet arthropathy resulting in no significant central canal stenosis and minimal bilateral foraminal narrowing, progressed from prior. L3-4: Increased mild disc bulge with facet arthropathy superimposed on a developmentally narrow spinal canal resulting in moderate central canal stenosis and mild bilateral foraminal narrowing. L4-5: Increased size of left paracentral and foraminal disc protrusion with facet arthropathy superimposed on a developmentally narrow spinal canal resulting in left L4 and L5 nerve root impingement, severe central canal stenosis, and moderate left greater than right foraminal narrowing. L5-S1: Left paracentral disc protrusion with facet arthropathy resulting in left S1 nerve root abutment/impingement, mild narrowing of the thecal sac in combination with prominent epidural fat, moderate left, and mild right foraminal narrowing similar to prior. SOFT TISSUES: Posterior subcutaneous edema noted. Sigmoid diverticulosis present. MRI/Spine Lumbar (Routine) IMPRESSION: Mild interval progression of multilevel degenerative disc disease in the lumbar spine. Moderate spinal canal stenosis and mild bilateral foraminal narrowing of L3-4. Severe spinal canal stenosis, left nerve root impingement, and moderate left greater than right foraminal narrowing at L4-5. Left nerve root abutment or impingement with left greater than right foraminal narrowing at L5-S1. Electronically Signed: Tosin King MD at 9:38 EST Reading Location ID and State: [address] [place] [address] Tel , Service support , CC: Dr. Dominic Issa MD; Dr. Kali Bacon MD Construction Executive: Signed Normal [facility] Carotid Duplex Ultrasoundon 07-12-2024 Carotid Duplex Ultrasound [facility] [address] [place] [address] Carotid Duplex Ultrasound 07/12/24 1013 MR#: [id number] Acct: [id number] Name: JANESSA BARON Rep #: [id number] : 1950 73 From: Abraham Gilbert MD Attending Dr: INDU Acuña Status: REG CLI Ordering Dr: Genesis Carbajal Date: 07/12/24 Location: [facility] Sex: F C Admitted: Reason For Study: S/P L TCAR Rt. Velocities/BP Lt. Velocities/BP Prox CCA 61.4/9.8 cm/sec. Prox CCA 58.8/13.4 cm/sec. Mid CCA 91.1/14.4 cm/sec. Mid CCA Prox to Stent, 66.2/19.5 cm/s Dist CCA 100.3/21.7 cm/sec. Dist CCA Prox Stent, 71.1/18.1 cm/s. Prox ICA 207.5/38.8 cm/sec. Prox ICA Mid Stent, 136.3/30.1 cm/s Mid ICA 84.8/8 cm/sec. Prox ICA Dist Stent, 115.6/24.9 cm/s Dist ICA 117.5/17.7 cm/sec. Mid ICA Dist to Stent, 83.2/14.4 cm/s. Rt. ICA/CCA = 2.3. Dist ICA 75.8/14.7 cm/sec. Prox ECA 238.9/0.0 cm/sec. Lt. ICA/CCA = 2.1. Rt. Vert. 38.2/7.1 cm/sec. Prox ECA 429.5/19.9 cm/sec. Lt. Vert. 48.7/19.5 cm/sec. Right Extracranial There is heterogeneous, irregular atherosclerotic plaque noted in the right common carotid artery. There is heterogeneous, irregular atherosclerotic plaque noted in the right internal carotid artery. There is heterogeneous, irregular atherosclerotic plaque noted in the right external carotid artery. Antegrade flow is noted in the right vertebral artery. Left Extracranial There is intimal thickening but no significant atherosclerotic plaque noted in the left common carotid artery. There is heterogeneous, irregular atherosclerotic plaque noted in the left internal carotid artery. The atherosclerotic plaque causes acoustic shadowing. There is heterogeneous, irregular atherosclerotic plaque noted in the left external carotid artery. Antegrade flow is noted in the left vertebral artery. Procedure Carotid Duplex 37099. This is a Carotid Duplex examination using B-mode, color flow and specral Doppler. Exam performed in department. VL/Carotid Duplex Ultrasound Interpretation Summary Moderate (50-69%) stenosis right extracranial internal carotid. Mild (<70%) stenosis left extracranial internal carotid. Patent and antegrade vertebrals bilaterally. ___ Ordering Physician: Genesis Carbajal Referring Physician: Grayson Bacon M.D. Performed By: Theresa Burch RVT and Student 07/12/241733 Date Abraham Gilbert MD CC: INDU Acuña; Dr. Kali Bacon MD Date Dictated: 07/12/241012 Date Transcribed: 07/12/241733 Construction Executive: Signed Normal [facility] CBC W/Diff, Automatedon 09- Absolute Lymph 3.56 X10 3/uL Normal 0.83-4.51 [facility] Comment on above: Performed By: #### L 3410.9998 #### [facility] [address] [place], [address] Absolute Neut 4.3 X10 3/uL Normal 2.0-7.7 [facility] Comment on above: Performed By: #### L 3410.9998 #### [facility] [address] [place], [address] Basophils/100 WBC (Bld) 0.5 % Normal 0-1 [facility] Comment on above: Performed By: #### L 3410.9998 #### [facility] [address] [place], [address] Eosinophils/100 WBC (Bld) 1.6 % Normal 0-5 [facility] Comment on above: Performed By: #### L 3410.9998 #### [facility] [address] [place], [address] Erythrocyte distribution width (RBC) [Ratio] 16.3 % High 11.6-14.6 [facility] Comment on above: Performed By: #### L 3410.9998 #### [facility] [address] [place], [address] Hematocrit (Bld) [Volume fraction] 33.7 % Low 37-47 [facility] Comment on above: Performed By: #### L 3410.9998 #### [facility] [address] [place], [address] Hemoglobin (Bld) [Mass/Vol] 9.8 g/dL Low 12.0-15.0 [facility] Comment on above: Performed By: #### L 3410.9998 #### [facility] [address] [place], [address] IG% 0.200 Normal 0.0-0.9 [facility] Comment on above: Result Comment: IG% - Immature Granulocytes (promyelocytes, myelocytes and metamyelocytes) > 1% indicates that a LEFT SHIFT is Present. Performed By: #### L 3410.9998 #### [facility] [address] [place], [address] Lymphocytes/100 WBC (Bld) 41.0 % Normal 19-41 [facility] Comment on above: Performed By: #### L 3410.9998 #### [facility] [address] [place], [address] MCH (RBC) [Entitic mass] 22.1 pg Low 27.0-32.0 [facility] Comment on above: Performed By: #### L 3410.9998 #### [facility] [address] [place], [address] MCHC (RBC) [Mass/Vol] 29.1 g/dL Low 32-36 [facility] Comment on above: Performed By: #### L 3410.9998 #### [facility] [address] [place], [address] MCV (RBC) [Entitic vol] 75.9 fL Low 81-99 [facility] Comment on above: Performed By: #### L 3410.9998 #### [facility] [address] [place], [address] Monocytes/100 WBC (Bld) 7.1 % Normal 0-10 [facility] Comment on above: Performed By: #### L 3410.9998 #### [facility] [address] [place], [address] Neutrophils/100 WBC (Bld) 49.6 % Normal 47-70 [facility] Comment on above: Performed By: #### L 3410.9998 #### [facility] [address] [place], [address] Nucleated RBC (Bld) [#/Vol] 0 10*3/uL Normal 0-5 [facility] Comment on above: Performed By: #### L 3410.9998 #### [facility] [address] [place], [address] Platelet mean volume (Bld) [Entitic vol] 8.4 fL Normal 6.2-12.0 [facility] Comment on above: Performed By: #### L 3410.9998 #### [facility] [address] [place], [address] Platelets (Bld) [#/Vol] 399 10*3/uL Normal 150-450 [facility] Comment on above: Performed By: #### L 3410.9998 #### [facility] [address] [place], [address] RBC (Bld) [#/Vol] 4.44 10*6/uL Normal 4.2-5.4 [facility] Comment on above: Performed By: #### L 3410.9998 #### [facility] [address] [place], [address] RDW SD 44.5 fl High 35.1-43.9 [facility] Comment on above: Performed By: #### L 3410.9998 #### [facility] [address] [place], [address] WBC (Bld) [#/Vol] 8.7 10*3/uL Normal 4.4-11.0 [facility] Comment on above: Performed By: #### L 3410.9998 #### [facility] [address] [place], [address] Iron+Iron Binding Capacityon 05-05-2024 IRON Normal 50-170 [facility] Comment on above: Result Comment: ORALIA HAVE GREEN TOP Performed By: #### L 503.6030 #### [facility] [address] [place], [address] IRON SATURATION Normal 15.0-55.0 [facility] Comment on above: Result Comment: ORALIA HAVE GREEN TOP Performed By: #### L 551.6030 #### [facility] [address] [place], [address] TIBC Normal 250-450 [facility] Comment on above: Result Comment: ORALIA HAVE GREEN TOP Performed By: #### L 511.6030 #### [facility] [address] [place], [address] CBC W/Diff, Automatedon - Absolute Lymph 2.27 X10 3/uL Normal 0.83-4.51 [facility] Comment on above: Performed By: #### L 3410.9998 #### [facility] [address] [place], [address] Absolute Neut 3.6 X10 3/uL Normal 2.0-7.7 [facility] Comment on above: Performed By: #### L 3410.9998 #### [facility] [address] [place], [address] Basophils/100 WBC (Bld) 0.6 % Normal 0-1 [facility] Comment on above: Performed By: #### L 3410.9998 #### [facility] [address] [place], [address] Eosinophils/100 WBC (Bld) 2.0 % Normal 0-5 [facility] Comment on above: Performed By: #### L 3410.9998 #### [facility] [address] [place], [address] Erythrocyte distribution width (RBC) [Ratio] 16.3 % High 11.6-14.6 [facility] Comment on above: Performed By: #### L 3410.9998 #### [facility] [address] [place], [address] Hematocrit (Bld) [Volume fraction] 34.5 % Low 37-47 [facility] Comment on above: Performed By: #### L 3410.9998 #### [facility] [address] [place], [address] Hemoglobin (Bld) [Mass/Vol] 9.9 g/dL Low 12.0-15.0 [facility] Comment on above: Performed By: #### L 3410.9998 #### [facility] [address] [place], [address] IG% 0.300 Normal 0.0-0.9 [facility] Comment on above: Result Comment: IG% - Immature Granulocytes (promyelocytes, myelocytes and metamyelocytes) > 1% indicates that a LEFT SHIFT is Present. Performed By: #### L 3410.9998 #### [facility] [address] [place], [address] Lymphocytes/100 WBC (Bld) 32.3 % Normal 19-41 [facility] Comment on above: Performed By: #### L 3410.9998 #### [facility] [address] [place], [address] MCH (RBC) [Entitic mass] 21.7 pg Low 27.0-32.0 [facility] Comment on above: Performed By: #### L 3410.9998 #### [facility] [address] [place], [address] MCHC (RBC) [Mass/Vol] 28.7 g/dL Low 32-36 [facility] Comment on above: Performed By: #### L 3410.9998 #### [facility] [address] [place], [address] MCV (RBC) [Entitic vol] 75.7 fL Low 81-99 [facility] Comment on above: Performed By: #### L 3410.9998 #### [facility] [address] [place], [address] Monocytes/100 WBC (Bld) 13.2 % High 0-10 [facility] Comment on above: Performed By: #### L 3410.9998 #### [facility] [address] [place], [address] Neutrophils/100 WBC (Bld) 51.6 % Normal 47-70 [facility] Comment on above: Performed By: #### L [id number] #### [facility] [address] [place], [address] Nucleated RBC (Bld) [#/Vol] 0 10*3/uL Normal 0-5 [facility] Comment on above: Performed By: #### L 3410.9998 #### [facility] [address] [place], [address] Platelet mean volume (Bld) [Entitic vol] 9.8 fL Normal 6.2-12.0 [facility] Comment on above: Performed By: #### L 3410.9998 #### [facility] [address] [place], [address] Platelets (Bld) [#/Vol] 386 10*3/uL Normal 150-450 [facility] Comment on above: Performed By: #### L 3410.9998 #### [facility] [address] [place], [address] RBC (Bld) [#/Vol] 4.56 10*6/uL Normal 4.2-5.4 [facility] Comment on above: Performed By: #### L 3410.9998 #### [facility] [address] [place], [address] RDW SD 44.3 fl High 35.1-43.9 [facility] Comment on above: Performed By: #### L [id number] #### [facility] [address] [place], [address] WBC (Bld) [#/Vol] 7.0 10*3/uL Normal 4.4-11.0 [facility] Comment on above: Performed By: #### L [id number] #### [facility] [address] [place], [address] Cardiology Visit Reporton Cardiology Visit Report [facility] [address] [place] [address] OFFICE VISIT Date of Service: 05/03/24 MR#: [id number] Acct: [id number] Name: JANESSA BARON Rep #: [id number] : 1950 Provider: INDU Lan Age/Sex: 73/F Location: [facility] Status: Signed HPI [facility] History of Present Illness Details: Janessa Baron is a 73-year-old lady with no previous cardiac history who referred herself to the emergency room for chest discomfort on 11/04/2022. She said that she had been getting chest tightness whenever she walked around and it was associated with some shortness of breath. In the emergency room she was noted to have markedly elevated blood pressure which was brought down with labetalol and Ativan. Cardiac enzymes were normal EKG was also noted to be normal She had described this as tightness radiating to her arm when she walks around [facility]. Her last lipid profile demonstrated total cholesterol 221 HDL of 44 and LDL 135. EKG demonstrates normal sinus rhythm with a rate of 80 bpm and occasional premature ventricular complexes noted. She underwent an echocardiogram which demonstrated left ventricular systolic function hyperdynamic with an estimated ejection fraction of 70%, stage I diastolic dysfunction. Heart catheterization demonstrated severe triple-vessel disease with a very calcified LAD and circumflex and a totally occluded RCA with [id number] collaterals with disease noted in the proximal and mid LAD and proximal circumflex. Patient was recommended for surgical consult for coronary revascularization. On November 26, 2022 at [facility], she underwent bypass surgery with SMITH to the LAD, SVG to the obtuse marginal, SVG to the right posterior descending. She had a LCEA in January of 2024. Since then she has been having issues with her BP. She has lows. She only takes her BP medications if her BP is greater than 140. She will then take one pill to see what helps. She does not have any chest pain/heaviness. She does not have any worsening SOB. She does not have any palpitations. She is trying to walk more. She does have numbness in her legs. She is having pain her legs. She is seeing pain management. Intake Vital Signs 02/03/24 14:29 05/03/24 14:23 Height 5 ft 3 in 5 ft 3 in Weight: 195 lb BMI 34.5 BP 149/76 H Blood Pressure Location Lt brachial Position Sitting Respiration 18 Pulse 65 Pulse Source Monitor Pulse Oximetry (%) 98 Intake Visit Reasons: 6 M FU Quiller Operator Required: No Is patient in pain?: No Allergies doxycycline Allergy (Mild, Verified 05/03/24 14:24) unknown sulfamethoxazole (From Bactrim) Allergy (Mild, Verified 05/03/24 14:24) unknown trimethoprim (From Bactrim) Allergy (Mild, Verified 05/03/24 14:24) unknown amoxicillin (From Augmentin) Allergy (Verified 05/03/24 14:24) Hives cefprozil (From Cefzil) Allergy (Verified 05/03/24 14:24) Hives clavulanic acid (From Augmentin) Allergy (Verified 05/03/24 14:24) Hives dextromethorphan (From NyQuil) Allergy (Verified 05/03/24 14:24) Hives doxylamine (From NyQuil) Allergy (Verified 05/03/24 14:24) Hives erythromycin base Allergy (Verified 05/03/24 14:24) Hives gatifloxacin (From Tequin) Allergy (Verified 05/03/24 14:24) Hives lincomycin Allergy (Verified 05/03/24 14:24) Hives metoclopramide (From Reglan) Allergy (Verified 05/03/24 14:24) Other pseudoephedrine (From NyQuil) Allergy (Verified 05/03/24 14:24) Hives morphine Adverse Reaction (Intermediate, Verified 05/03/24 14:24) tachycardia Medications ???Medication ???Instructions ???Recorded ???Confirmed ???Type budesonide-formoterol HFA 160 2 puff inhalation BID PRN Asthma 05/21/16 05/03/24 History mcg-4.5 mcg/actuation aerosol inhaler montelukast 10 mg tablet 10 mg PO DAILY ASTHMA 05/21/16 05/03/24 History cetirizine 10 mg capsule (Zyrtec) 10 mg PO DAILY PRN allergy symptoms 05/18/18 05/03/24 History Al hyd-Mg tr-alg ac-sod bicarb 80 1 tab PO DAILY PRN GAS 05/22/19 05/03/24 History mg-14.2 mg chewable tablet (Gaviscon) metformin 1,000 mg 24 hr 1,000 mg PO BID DIABETES 05/22/19 05/03/24 History tablet,extended release (gastric reten.) albuterol sulfate 90 mcg/actuation 2 puff inhalation Q6H PRN 11/04/22 05/03/24 History aerosol inhaler Shortness Of Breath Or Wheezing aspirin 81 mg tablet,delayed 81 mg PO DAILY HEART HEALTH 12/21/22 05/03/24 History release (Adult Low Dose Aspirin) metoprolol tartrate 25 mg tablet 25 mg PO BID HTN 12/21/22 02/23/24 History tramadol 50 mg tablet 50 mg PO 4X/DAY PRN Pain 01/04/23 05/03/24 History glimepiride 4 mg tablet (Amaryl) 4 mg PO DAILY DIABETES 03/11/23 05/03/24 History amlodipine 5 mg tablet (Norvasc) 5 mg PO DAILY HTN 09/17/23 05/03/24 History nystatin 100,000 unit/gram to (more content not included)... Normal [facility] Surgery Visit Reporton 02-22 Surgery Visit Report [facility] [address] [place] [address] OFFICE VISIT Date of Service: 02/23/24 MR#: [id number] Acct: [id number] Name: JANESSA BARON Rep #: [id number] : 1950 Provider: INDU Acuña Age/Sex: 73/F Location: [facility] Status: Signed Intake Vital Signs 02/03/24 14:29 02/23/24 12:53 Height 5 ft 3 in Weight: 195 lb BP 150/71 H Blood Pressure Location Lt brachial Position Sitting Respiration 16 Pulse 83 Pulse Source Monitor Temp 98 F Temp Source Temporal Pulse Oximetry (%) 99 Oxygen Delivery Method room air Intake Visit Reasons: 2 W FU Chief Complaint: post op Is patient in pain?: Yes Allergies doxycycline Allergy (Mild, Verified 02/23/24 12:56) unknown sulfamethoxazole (From Bactrim) Allergy (Mild, Verified 02/23/24 12:56) unknown trimethoprim (From Bactrim) Allergy (Mild, Verified 02/23/24 12:56) unknown amoxicillin (From Augmentin) Allergy (Verified 02/23/24 12:56) Hives cefprozil (From Cefzil) Allergy (Verified 02/23/24 12:56) Hives clavulanic acid (From Augmentin) Allergy (Verified 02/23/24 12:56) Hives dextromethorphan (From NyQuil) Allergy (Verified 02/23/24 12:56) Hives doxylamine (From NyQuil) Allergy (Verified 02/23/24 12:56) Hives erythromycin base Allergy (Verified 02/23/24 12:56) Hives gatifloxacin (From Tequin) Allergy (Verified 02/23/24 12:56) Hives lincomycin Allergy (Verified 02/23/24 12:56) Hives metoclopramide (From Reglan) Allergy (Verified 02/23/24 12:56) Other pseudoephedrine (From NyQuil) Allergy (Verified 02/23/24 12:56) Hives morphine Adverse Reaction (Intermediate, Verified 02/23/24 12:56) tachycardia Medications ???Medication ???Instructions ???Recorded ???Confirmed ???Type budesonide-formoterol HFA 160 2 puff inhalation BID PRN Asthma 05/21/16 02/23/24 History mcg-4.5 mcg/actuation aerosol inhaler montelukast 10 mg tablet 10 mg PO DAILY ASTHMA 05/21/16 02/23/24 History cetirizine 10 mg capsule (Zyrtec) 10 mg PO DAILY PRN allergy symptoms 05/18/18 02/23/24 History Al hyd-Mg tr-alg ac-sod bicarb 80 1 tab PO DAILY PRN GAS 05/22/19 02/23/24 History mg-14.2 mg chewable tablet (Gaviscon) metformin 1,000 mg 24 hr 1,000 mg PO BID DIABETES 05/22/19 02/23/24 History tablet,extended release (gastric reten.) albuterol sulfate 90 mcg/actuation 2 puff inhalation Q6H PRN 11/04/22 02/23/24 History aerosol inhaler Shortness Of Breath Or Wheezing aspirin 81 mg tablet,delayed 81 mg PO DAILY HEART HEALTH 12/21/22 02/23/24 History release (Adult Low Dose Aspirin) metoprolol tartrate 25 mg tablet 25 mg PO BID HTN 12/21/22 02/23/24 History tramadol 50 mg tablet 50 mg PO 4X/DAY PRN Pain 01/04/23 02/23/24 History glimepiride 4 mg tablet (Amaryl) 4 mg PO DAILY DIABETES 03/11/23 02/23/24 History amlodipine 5 mg tablet (Norvasc) 5 mg PO DAILY HTN 09/17/23 02/23/24 History nystatin 100,000 unit/gram topical 1 applic topical TID YEAST 09/17/23 02/23/24 Rx powder (Nystop) INFECTION #45 ea rosuvastatin 10 mg tablet (Crestor) 10 mg PO DAILY HLD 09/17/23 02/23/24 History omeprazole 40 mg capsule,delayed 40 mg PO BID GERD 10/12/23 02/23/24 History release pioglitazone 45 mg tablet (Actos) 45 mg PO DAILY DIABETES 01/11/24 02/23/24 History lisinopril 20 1 tab PO DAILY htn 01/25/24 02/23/24 History mg-hydrochlorothiazide 12.5 mg tablet docusate sodium 100 mg capsule 100 mg PO BID PRN PRN Constipation 01/27/24 02/23/24 Rx 5 days #10 caps Have you fallen in the past year?: No Subjective Details: Janessa Baron is a 73 y/o female who returns to the office s/p L TCAR on 01/25/24 and returns today for reassessment of her incision site. At last OV, had removed spitting suture and placed steristips. Since then, the incision site has healed up. She has not noticed any further spitting sutures, drainage, swelling, redness, or discomfort. She continues to have fluctuating blood pressures, she was advised to contact her PCP about this last week for medication adjustments as needed which she did do and they are making necessary adjustments. She also reports that over the last week she was having fluctuating blood sugars as well as well which she felt was due to the Brilinta. She was also concerned the Brilinta was causing these BP fluctuations along with the dyspnea we had discussed at her last visit. She stopped taking the Brilinta last week. She was supposed to continue Brilinta for 30 days postop, her last day would have been tomorrow 02/23. She does feel like her sugars are starting to improve. Dyspnea seems to be improving as well. Objective Details: A Ox3, NAD RRR Nonlabored respirations L TCAR incision site is well-healed. No visible spitting sutures. No erythema, focal swelling (more content not included)... Normal [facility] CNOVon 02-16-2024 CNOV Office Visit (FAMMAS ) ----- JANESSA BARON ([id number]) 1950 F Date Time Provider Department 02/16/24 2:40 PM [facility] visit today, we recorded the following information about you: Temperature Pulse Respiration Blood pressure 98.4 degrees 88/minute 21/minute 138/74 Weight Height 87.1 kg 1.6 m Laura Lyons LPN 02/16/2024 3:47 PM Signed Patient in the office today with complaints of low blood pressure and elevated glucose. Patient had carotid stent placed 01/25/24 at [facility]. Patient is taking Brillinta for 30 days post op ending on 02/24/2024. She said she is having issues breathing and increasing her glucose levels. Patient wants to discuss options. Refills entered. Laura Lyons LPN February 16, 2024 2:48 PM Kali Bacon MD 02/16/2024 3:47 PM Signed Subjective Janessa Baron is a 73 year old female. Patient in the office today with complaints of low blood pressure and elevated glucose. Patient had carotid stent placed 01/25/24 at [facility]. Patient is taking Brillinta for 30 days post op ending on 02/24/2024. She said she is having issues breathing and increasing her glucose levels. She has 9 more days before she can stop the Brilinta. She has only been taking it once a day and taking an extra aspirin to compensate. Patient wants to discuss options. Review of Systems All other systems reviewed and are negative. PAST SURGICAL HISTORY Procedure Laterality Date BREAST [...] Unknown Augmentin [Amoxicil* Rash Cefzil [Cefprozil] Rash Dayquil Allergy 12-* Hives Dextromethorphan Hives Doxylamine Hives Erythromycin Rash Iodinated Contrast * Hives Ivp Dye [Iodine] Unknown knot on head Lincomycin Rash Pseudoephedrine Hives Reglan [Metoclopram* Intolerance [id number]-Qdb-Dnz Red* Unknown Other reaction(s): Other Tequin [Gatifloxaci* Rash Doxycycline Unknown, Vomiting MEDICATIONS: blood sugar diagnostic ([employer] ULTRA TEST) test strip Monitor blood sugar daily and as needed. ticagrelor (BRILINTA) 90 mg tablet Take 90 mg by mouth two times a day. On hold until after procedure amLODIPine (NORVASC) 5 mg tablet Take 1 tablet by mouth once daily. glimepiride (AMARYL) 4 mg tablet Take 1 tablet by mouth daily with breakfast. metFORMIN (GLUCOPHAGE) 500 mg tablet Take 2 tablets by mouth two times a day with meals. metoprolol tartrate, short acting, (LOPRESSOR) 25 mg tablet Take 1 tablet by mouth two times a day. montelukast (SINGULAIR) 10 mg tablet Take 1 tablet by mouth daily at bedtime. omeprazole (PRILOSEC) 40 mg capsule Take 1 capsule by mouth two times a day. pioglitazone (ACTOS) 45 mg tablet Take 1 tablet by mouth once daily. lisinopril-hydroCHLOROthi azide (ZESTORETIC) 20-12.5 mg per tablet Take 1 tablet by mouth once daily. ketoconazole (NIZORAL) 2 % cream Apply to affected area once daily for 10 days. NYSTOP powder APPLY TO THE AFFECTED AREA(S) THREE TIMES DAILY bacitracin 500 unit/gram ointment Apply to affected area two times a day. fluconazole (DIFLUCAN) 150 mg tablet Take 1 tablet by mouth two times a week. sucralfate (CARAFATE) 1 gram tablet Take 1 g by mouth three times a day. 1/2 hour before meals tiZANidine (ZANAFLEX) 2 mg tablet Take 2 tablets by mouth every 8 hours as needed. (Patient not taking: Reported on 01/24/2024) rosuvastatin (CRESTOR) 10 mg tablet Take 1 tablet by mouth daily at bedtime. budesonide (PULMICORT) 0.5 mg/2 mL nebulizer solution mix 2 ampules with saline and apply twice daily kclzazzs-efgynrshc-faaeix ortisone (CORTISPORIN) 3.5-10,000-1 mg/mL-unit/mL-% otic suspension Use 3 Drops in both ears four times daily. gel base no.41, bulk, (HYDROGEL) gel 1 Dose once daily. budesonide-formoterol (SYMBICORT) 160-4.5 mcg/actuation inhaler Inhale 2 Puffs as instructed twice daily. albuterol (PROVENTIL) 2.5 mg /3 mL (0.083 %) nebulizer solution INHALE W (more content not included)... Normal [facility] Surgery Visit Reporton 02-09 Surgery Visit Report [facility] [address] [place] [address]. [address] [place] [address] OFFICE VISIT Date of Service: 02/10/24 MR#: [id number] Acct: [id number] Name: JANESSA BARON Rep #: [id number] : 1950 Provider: INDU Acuña Age/Sex: 73/F Location: [facility] [place] Status: Signed Intake Vital Signs 10/12/23 13:31 02/03/24 14:29 02/10/24 11:19 Height 5 ft 3 in 5 ft 3 in Weight: 197 lb BP 168/77 H Blood Pressure Location Lt brachial Position Sitting Respiration 16 Pulse 84 Pulse Source Monitor Temp 97.1 F L Temp Source Temporal Pulse Oximetry (%) 99 Oxygen Delivery Method room air Intake Visit Reasons: 2-3 W [place] F/U Chief Complaint: post op Is patient in pain?: Yes Allergies doxycycline Allergy (Mild, Verified 02/10/24 11:23) unknown sulfamethoxazole (From Bactrim) Allergy (Mild, Verified 02/10/24 11:23) unknown trimethoprim (From Bactrim) Allergy (Mild, Verified 02/10/24 11:23) unknown amoxicillin (From Augmentin) Allergy (Verified 02/10/24 11:23) Hives cefprozil (From Cefzil) Allergy (Verified 02/10/24 11:23) Hives clavulanic acid (From Augmentin) Allergy (Verified 02/10/24 11:23) Hives dextromethorphan (From NyQuil) Allergy (Verified 02/10/24 11:23) Hives doxylamine (From NyQuil) Allergy (Verified 02/10/24 11:23) Hives erythromycin base Allergy (Verified 02/10/24 11:23) Hives gatifloxacin (From Tequin) Allergy (Verified 02/10/24 11:23) Hives lincomycin Allergy (Verified 02/10/24 11:23) Hives metoclopramide (From Reglan) Allergy (Verified 02/10/24 11:23) Other pseudoephedrine (From NyQuil) Allergy (Verified 02/10/24 11:23) Hives morphine Adverse Reaction (Intermediate, Verified 02/10/24 11:23) tachycardia Medications ???Medication ???Instructions ???Recorded ???Confirmed ???Type budesonide-formoterol HFA 160 2 puff inhalation BID PRN Asthma 05/21/16 02/10/24 History mcg-4.5 mcg/actuation aerosol inhaler montelukast 10 mg tablet 10 mg PO DAILY ASTHMA 05/21/16 02/10/24 History cetirizine 10 mg capsule (Zyrtec) 10 mg PO DAILY PRN allergy symptoms 05/18/18 02/10/24 History Al hyd-Mg tr-alg ac-sod bicarb 80 1 tab PO DAILY PRN GAS 05/22/19 02/10/24 History mg-14.2 mg chewable tablet (Gaviscon) metformin 1,000 mg 24 hr 1,000 mg PO BID DIABETES 05/22/19 02/10/24 History tablet,extended release (gastric reten.) albuterol sulfate 90 mcg/actuation 2 puff inhalation Q6H PRN 11/04/22 02/10/24 History aerosol inhaler Shortness Of Breath Or Wheezing aspirin 81 mg tablet,delayed 81 mg PO DAILY HEART HEALTH 12/21/22 02/10/24 History release (Adult Low Dose Aspirin) metoprolol tartrate 25 mg tablet 25 mg PO BID HTN 12/21/22 02/10/24 History tramadol 50 mg tablet 50 mg PO 4X/DAY PRN Pain 01/04/23 02/10/24 History glimepiride 4 mg tablet (Amaryl) 4 mg PO DAILY DIABETES 03/11/23 02/10/24 History amlodipine 5 mg tablet (Norvasc) 5 mg PO DAILY HTN 09/17/23 02/10/24 History nystatin 100,000 unit/gram topical 1 applic topical TID YEAST 09/17/23 02/10/24 Rx powder (Nystop) INFECTION #45 ea rosuvastatin 10 mg tablet (Crestor) 10 mg PO DAILY HLD 09/17/23 02/10/24 History omeprazole 40 mg capsule,delayed 40 mg PO BID GERD 10/12/23 02/10/24 History release pioglitazone 45 mg tablet (Actos) 45 mg PO DAILY DIABETES 01/11/24 02/10/24 History lisinopril 20 1 tab PO DAILY htn 01/25/24 02/10/24 History mg-hydrochlorothiazide 12.5 mg tablet docusate sodium 100 mg capsule 100 mg PO BID PRN PRN Constipation 01/27/24 02/10/24 Rx 5 days #10 caps ticagrelor 90 mg tablet (Brilinta) 90 mg PO BID HEART HEALTH #60 tabs 01/27/24 02/10/24 Rx diazepam 5 mg tablet (Valium) 5 mg PO QHS PRN anxiety 1 day #1 02/11/24 Rx TAB Have you fallen in the past year?: No Subjective Details: Janessa Baron is a 73 y/o female who presents today s/p L TCAR on 01/25/24. Following surgery she had blood pressures which were lower than normal so her home blood pressure medications were held at discharge. As instructed, she has been checking her blood pressure daily. She reports that she has not restarted taking any of her blood pressure medications on a daily basis as her pressures have remained generally <140; however, over the last few days she has had some higher readings, up to 190 at one time after which she did take both her metoprolol and amlodipine once and it came down. Over the last week, she has noticed a suture sticking through the incision site, it feels very irritating. She has not noticed any associated swelling, drainage, foul odor. She has not had any pain at the incision site. She has not had any nausea, vomiting, fevers, or chills. She has noticed an intermittent sensation of shortness of breath without any associated decrease in her O2 saturation (wh (more content not included)... Normal [facility] Carotid Duplex Ultrasoundon 02-09-2024 Carotid Duplex Ultrasound [facility] [address] [place] [address] Carotid Duplex Ultrasound 02/09/24 0809 MR#: [id number] Acct: [id number] Name: JANESSA BARON Rep #: [id number] : 1950 73 From: Abraham Gilbert MD Attending Dr: INDU Acuña Status: REG CLI Ordering Dr: Genesis Carbajal Date: 02/09/24 Location: [facility] Sex: F C Admitted: Reason For Study: s/p L TCAR Rt. Velocities/BP Lt. Velocities/BP Prox CCA 76.2/15.7 cm/sec. Prox CCA 91.1/27.4 cm/sec. Mid CCA 64.1/16.8 cm/sec. Mid CCA 82.3/18.6 cm/sec. Dist CCA 106.5/15.2 cm/sec. Dist CCA 85.6/19.7 cm/sec. Prox ICA 156.1/13.9 cm/sec. Proximal stent. Mid ICA 80.7/22.1 cm/sec. Prox ICA 148.4/35.2 cm/sec. Dist ICA 168.2/36.4 cm/sec. Mid ICA 177.5/41.7 cm/sec. Rt. ICA/CCA = 2.6. Dist ICA 161.3/41.7 cm/sec. Prox ECA 236.6/20.8 cm/sec. Stent noted from the proximal ICA to mid Rt. Vert. 19.2/16.6 cm/sec. ICA. Lt. ICA/CCA = 2.2. Prox ECA 187.2/19.1 cm/sec. Lt. Vert. 57.5/16 cm/sec. Right Extracranial There is heterogeneous, irregular atherosclerotic plaque noted in the right common carotid artery. There is heterogeneous, irregular atherosclerotic plaque noted in the right internal carotid artery. There is heterogeneous, irregular atherosclerotic plaque noted in the right external carotid artery. Antegrade flow is noted in the right vertebral artery. Left Extracranial Stent noted distal CCA to mid ICA. There is heterogeneous, irregular atherosclerotic plaque noted in the left internal carotid artery. There is heterogeneous, irregular atherosclerotic plaque noted in the left external carotid artery. Antegrade flow is noted in the left vertebral artery. Procedure Carotid Duplex [id number]. This is a Carotid Duplex examination using B-mode, color flow and specral Doppler. The exam was diagnostic. Exam performed in department. VL/Carotid Duplex Ultrasound Interpretation Summary Moderate (50-69%) stenosis right extracranial internal carotid. Mild (<70%) stenosis left extracranial internal carotid. Patent and antegrade vertebrals bilaterally. ___ Ordering Physician: Genesis Carbajal Referring Physician: Genesis Carbajal Performed By: Gege Bernabe Kelvin 02/14/2445 Date Abraham Gilbert MD CC: INDU Acuña; Dr. Kali Bacon MD Date Dictated: 02/09/24808 Date Transcribed: 02/14/24944 Construction Executive: Jacek [facility] 02-07-2024 [facility] Telephone ([facility]) ----- JANESSA BARON ([id number]) 1950 F Date Time Provider Department 02/07/24 KALI BACON During your visit today, we recorded the following information about you: Ewa Mclain LPN 02/07/2024 10:00 AM Signed Janessa Baron's Rody called today. : 1950 Allergies: Metoclopramide, Sulfamethoxazole-Trimetho prim, Morphine, Acetaminophen, Augmentin [Amoxicillin-Pot Clavulanate], Cefzil [Cefprozil], Dayquil Allergy 12-Hr, Dextromethorphan, Doxylamine, Erythromycin, Iodinated Contrast Media, Ivp Dye [Iodine], Lincomycin, Pseudoephedrine, Reglan [Metoclopramide Hcl], Czvvcix-Qac-Xoi Reductase Inhibitors, Tequin [Gatifloxacin], and Doxycycline (home) [phone] (work) [phone] (cell) Reason for call: Rody said Janessa was seen in the office by Dr Bacon on 01/24/24. She had a rash at that time on her arms, neck, back, and legs. The steroid medication is not working. Janessa wants to go to a [facility] and needs a referral. She would like to go see [facility] Dr Garrick Walters of [address], [place] [address] Patient last appointment: 01/24/2024 The patients preferred pharmacy has been captured for this encounter? no PATRICA Zendejas Raymond Gregory, MD 02/08/2024 3:31 PM Signed Addended by: KALI BACON on: 02/08/2024 03:31 PM Modules accepted: Orders Kali Bacon MD 02/08/2024 3:43 PM Signed Referral still placed please forward to Dr. Walters's office Ewa Mclain LPN 02/09/2024 2:29 PM Signed Referral faxed to: [facility] Dr Garrick Walters of [address], [place] [address] . Patient's Ross notified and he thanked me for the notification. Eaw Mclain LPN February 09, 2024 2:29 PM Allergies As of Date: 02/07/2024 Noted Allergy Reaction METOCLOPRAMIDE 01/31/2017 16 - Unknown SULFAMETHOXAZOLE-TRIMETHO PRIM 04/01/2017 16 - Unknown MORPHINE 07/24/2020 16 - Unknown ACETAMINOPHEN 04/07/2023 16 - Unknown AUGMENTIN (AMOXICILLIN-POT CLAVUL*04/27/2018 2 - Rash CEFZIL (CEFPROZIL) 04/27/2018 2 - Rash DAYQUIL ALLERGY 12-HR 04/27/2018 4 - Hives DEXTROMETHORPHAN 01/31/2017 4 - Hives DOXYLAMINE 01/31/2017 4 - Hives ERYTHROMYCIN 04/27/2018 2 - Rash IODINATED CONTRAST MEDIA 05/22/2019 4 - Hives IVP DYE (IODINE) 04/27/2018 16 - Unknown Comments: knot on head LINCOMYCIN 04/27/2018 2 - Rash PSEUDOEPHEDRINE 01/31/2017 4 - Hives REGLAN (METOCLOPRAMIDE HCL) 04/27/2018 5 - Intolerance [id number] REDUCTASE INHIBIT*01/31/2017 16 - Unknown Comments: Other reaction(s): Other TEQUIN (GATIFLOXACIN) 04/27/2018 2 - Rash DOXYCYCLINE 11/28/2018 16 - Unknown 11 - Vomiting Date Reviewed: 01/24/2024 Reviewed by: Laura Lyons LPN - Fully Assessed Reason for Visit: Referral Request [124] Primary Visit Diagnosis:Rash [R21] Order(s):CONSULT TO DERMATOLOGY [9006] Order #: [id number]: 1 FUTURE Prescriptions as of 02/09/2024 - ticagrelor (BRILINTA) 90 mg tablet Take 90 mg by mouth two times a day. On hold until after procedure - amLODIPine (NORVASC) 5 mg tablet Take 1 tablet by mouth once daily. - glimepiride (AMARYL) 4 mg tablet Take 1 tablet by mouth daily with breakfast. - metFORMIN (GLUCOPHAGE) 500 mg tablet Take 2 tablets by mouth two times a day with meals. - metoprolol tartrate, short acting, (LOPRESSOR) 25 mg tablet Take 1 tablet by mouth two times a day. - montelukast (SINGULAIR) 10 mg tablet Take 1 tablet by mouth daily at bedtime. - omeprazole (PRILOSEC) 40 mg capsule Take 1 capsule by mouth two times a day. - pioglitazone (ACTOS) 45 mg tablet Take 1 tablet by mouth once daily. - lisinopril-hydroCHLOROthi azide (ZESTORETIC) 20-12.5 mg per tablet Take 1 tablet by mouth once daily. - ketoconazole (NIZORAL) 2 % cream Apply to affected area once daily for 10 days. - NYSTOP powder APPLY TO THE AFFECTED AREA(S) THREE TIMES DAILY - bacitracin 500 unit/gram ointment Apply to affected area two times a day. - fluconazole (DIFLUCAN) 150 mg tablet Take 1 tablet by mouth two times a week. - sucralfate (CARAFATE) 1 gram tablet Take 1 g by mouth three times a day. 1/2 hour before meals - tiZANidine (ZANAFLEX) 2 mg tablet Take 2 tablets by mouth every 8 hours as needed. - rosuvastatin (CRESTOR) 10 mg tablet Take 1 tablet by mouth daily at bedtime. - budesonide (PULMICORT) 0.5 mg/2 mL nebulizer solution mix 2 ampules with saline and apply twice daily - bhgssrfb-ilccbmave-okxjue ortisone (CORTISPORIN) 3.5-10,000-1 mg/mL-unit/mL-% otic suspension Use 3 Drops in both ears four times daily. - gel base no.41, bulk, (HYDROGEL) gel 1 Dose once daily. - budesonide-formoterol (SYMBICORT) 160-4.5 mcg/actuation inhaler Inhale 2 Puffs as instructed twice serena (more content not included)... Normal [facility] L/S Spine Min 4 Viewson 06-2 0-2024 L/S Spine Min 4 Views [facility] Radiology [address] [place] [address] L/S Spine Min 4 Views MR#: [id number] Acct: [id number] Name: JANESSA BARON Rep #: [id number] : 1950 F 73 From: Galen Layton MD PCP: Dr. Kali Bacon MD Status: DEP AMB Study: L/S Spine Min 4 Views Date of Exam: 02/03/24 Exam# [id number] Ordering Dr: Dominic Issa MD [id number] STUDY: X-RAY - LUMBAR SPINE REASON FOR EXAM: Female, 73 years old. Low back pain. TECHNIQUE: 4 view(s) of the lumbar spine, including lateral flexion and extension views, were obtained. COMPARISON: MRI of the lumbar spine report dated July 06, 2020. FINDINGS: Osteopenia. Normal lumbar lordosis. Mild levoscoliosis. Diffuse moderate lower thoracic and lumbosacral facet sclerosis. 1 cm of anterolisthesis of anterolisthesis of L4 on L5. Loss of height of the T11 vertebral body. Diffuse intervertebral disc space narrowing most marked at T11-12, T12-L1, L3-L4 and to the greatest degree L4-L5 and L5-S1. Marked vascular calcification. RAD/L/S Spine Min 4 Views IMPRESSION: Osteopenia with moderate lower thoracic and lumbosacral spondylosis as described. Electronically Signed: Galen Layton MD at 13:59 EDT , CC: Dr. Dominic Issa MD; Dr. Kali Bacon MD Construction Executive: Signed Normal [facility] Orthopedic Visit Reporton Orthopedic Visit Report [facility] [address] [place] [address] OFFICE VISIT Date of Service: 02/03/24 MR#: [id number] Acct: [id number] Name: JANESSA BARON Rep #: [id number] : 1950 Provider: Dr. Dominic Issa MD Age/Sex: 73/F Location: [facility] Status: Signed Intake Vital Signs 01/25/24 06:18 01/25/24 14:20 02/03/24 14:29 Height 5 ft 3 in 5 ft 3 in 5 ft 3 in Weight: 196 lb BMI 34.7 Intake Visit Reasons: LUMBAR SPINE Accompanied by: Is patient in pain?: Yes Pain scale (1-10): 5 Allergies doxycycline Allergy (Mild, Verified 02/03/24 14:30) unknown sulfamethoxazole (From Bactrim) Allergy (Mild, Verified 02/03/24 14:30) unknown trimethoprim (From Bactrim) Allergy (Mild, Verified 02/03/24 14:30) unknown amoxicillin (From Augmentin) Allergy (Verified 02/03/24 14:30) Hives cefprozil (From Cefzil) Allergy (Verified 02/03/24 14:30) Hives clavulanic acid (From Augmentin) Allergy (Verified 02/03/24 14:30) Hives dextromethorphan (From NyQuil) Allergy (Verified 02/03/24 14:30) Hives doxylamine (From NyQuil) Allergy (Verified 02/03/24 14:30) Hives erythromycin base Allergy (Verified 02/03/24 14:30) Hives gatifloxacin (From Tequin) Allergy (Verified 02/03/24 14:30) Hives lincomycin Allergy (Verified 02/03/24 14:30) Hives metoclopramide (From Reglan) Allergy (Verified 02/03/24 14:30) Other pseudoephedrine (From NyQuil) Allergy (Verified 02/03/24 14:30) Hives morphine Adverse Reaction (Intermediate, Verified 02/03/24 14:30) tachycardia Medications ???Medication ???Instructions ???Recorded ???Confirmed ???Type budesonide-formoterol HFA 160 2 puff inhalation BID PRN Asthma 05/21/16 02/03/24 History mcg-4.5 mcg/actuation aerosol inhaler montelukast 10 mg tablet 10 mg PO DAILY ASTHMA 05/21/16 02/03/24 History cetirizine 10 mg capsule (Zyrtec) 10 mg PO DAILY PRN allergy symptoms 05/18/18 02/03/24 History Al hyd-Mg tr-alg ac-sod bicarb 80 1 tab PO DAILY PRN GAS 05/22/19 02/03/24 History mg-14.2 mg chewable tablet (Gaviscon) metformin 1,000 mg 24 hr 1,000 mg PO BID DIABETES 05/22/19 02/03/24 History tablet,extended release (gastric reten.) albuterol sulfate 90 mcg/actuation 2 puff inhalation Q6H PRN 11/04/22 02/03/24 History aerosol inhaler Shortness Of Breath Or Wheezing aspirin 81 mg tablet,delayed 81 mg PO DAILY [facility] 12/21/22 02/03/24 History release (Adult Low Dose Aspirin) metoprolol tartrate 25 mg tablet 25 mg PO BID HTN 12/21/22 01/25/24 History tramadol 50 mg tablet 50 mg PO 4X/DAY PRN Pain 01/04/23 02/03/24 History glimepiride 4 mg tablet (Amaryl) 4 mg PO DAILY DIABETES 03/11/23 02/03/24 History amlodipine 5 mg tablet (Norvasc) 5 mg PO DAILY HTN 09/17/23 01/25/24 History nystatin 100,000 unit/gram topical 1 applic topical TID YEAST 09/17/23 01/25/24 Rx powder (Nystop) INFECTION #45 ea rosuvastatin 10 mg tablet (Crestor) 10 mg PO DAILY HLD 09/17/23 02/03/24 History omeprazole 40 mg capsule,delayed 40 mg PO BID GERD 10/12/23 02/03/24 History release pioglitazone 45 mg tablet (Actos) 45 mg PO DAILY DIABETES 01/11/24 02/03/24 History lisinopril 20 1 tab PO DAILY htn 01/25/24 01/25/24 History mg-hydrochlorothiazide 12.5 mg tablet docusate sodium 100 mg capsule 100 mg PO BID PRN PRN Constipation 01/27/24 02/03/24 Rx 5 days #10 caps ticagrelor 90 mg tablet (Brilinta) 90 mg PO BID HEART Siriona #60 tabs 01/27/24 02/03/24 Rx PFSH Medical History Preop testing Wears glasses Anxiety Rash Restless legs History of hiatal hernia Heartburn Gastric reflux History of IBS Non-smoker History of edema History of echocardiogram Cardiology follow-up encounter Left carotid bruit Pressure ulcer of left buttock, stage 2 Pressure ulcer of right buttock, stage 2 Postoperative atrial fibrillation H/o difficulty anesthesia Stomach inflammation Hiatal hernia Mass of both breasts on mammogram Carotid stenosis High triglycerides Hyperlipidemia Hypertension Gastrointestinal problem Diabetes Asthma Arthritis Surgical History History of colonoscopy History of esophagogastroduodenoscop y (EGD) History of cardiac catheterization H/O removal of cyst History of lumpectomy History of cataract surgery H/O knee surgery History of coronary artery bypass graft x 3 ( 11/26/22) fallopian tube surgery Hx of cholecystectomy H/O oophorectomy H/O tubal ligation History of ear surgery Family History Father No problems noted. Mother CVA (cerebral vascular accident) Heart disease Sister Colon cancer Diabetes Brother Thyroid diso (more content not included)... Normal [facility] No Panel InformationOrdered By: Genesis Carbajal on 10-27-2023 Estimated GFR (MDRD) Amer 85 mL/min >60 [facility] Comment on above: GFR Calc Estimated GFR (MDRD) Non-Af Amer 70 mL/min >60 [facility] Comment on above: Non- GFR Calc Serum or plasma creatinine m easurement (mass/volume)Ordered By: Genesis Carbajal on 10-27-2023 Creatinine [Mass/Vol] 0.85 mg/dL 0.55-1.02 [facility] Comment on above: The validity of the calculated GFR & GFRAA in patients over 70 years has not been determined. Clinical correlation is essential. Cervical or vaginal specimen microscopic examination by liquid based cytology (reportOrdered By: Sarah William on 09-17-2023 Cytology report Cyto stain.thin prep Doc (Cvx/Vag) Comment . [facility] Comment on above: Criteria not met, HP V Genotype not performed.Performed at: - [facility] [id number] Director: Micaela Gutierrez MD, Phone: [phone] at: = - [facility] [address] [id number] Director: Micaela Gutierrez MD, Phone: [phone] Cervical or vagninal specime n microscopic examination by cytology stain (reported asOrdered By: Sarah William on 09-17-2023 Cytology report Cyto stain Doc (Cvx/Vag) Comment . [facility] Comment on above: The Pap smear is a s creening test designed to aid in thedetection of premalignant and malignant conditions of theuterine cervix. It is not a diagnostic procedure andshould not be used as the sole means of detecting cervicalcancer. Both false-positive and false-negative reports dooccur. Detection in cervical specim en of any of human papilloma virus (HPV) 16, 18, 31, 33,Ordered By: Sarah William on 09-17-2023 HPV 16+18+31+33+35+39+45+ 51+52+56+58+59+66+68 DNA Probe+sig amp Ql (Cvx) Negative Negative [facility] Comment on above: This nucleic acid am plification test detects fourteen high- risk HPV types (16,18,31,33,35,39,45,51,52,56,58,59,66,68)without differentiation. Gram stain for investigation of transfusion reactionOrdered By: Sarah William on 09-17-2023 Microscopic observation Gram stain Nom (Unsp spec) [facility] Microscopic observation Gram stain Nom (Unsp spec) [facility] Laboratory - CytologyOrdered By: Sarah William on 09-17-2023 Color Maker Dyer Cyto stain Nom (Cvx/Vag) [ID] Comment . [facility] Comment on above: Paulie Chandler, Cytot echnologist (ASCP) Laboratory - Miscellaneous t estsOrdered By: Sarah William on 09-17-2023 Service comment (Unsp spec) [Interp] . . [facility] No Panel InformationOrdered By: Sarah William on 09-17-2023 Genital Culture [facility] Genital Culture [facility] Thin prep Papanicolaou smear with manual screeningOrdered By: Sarah William on 09-17-2023 Thin prep Papanicolaou smear with manual screening Comment . [facility] Comment on above: NEGATIVE FOR INTRAEP ITHELIAL LESION OR MALIGNANCY. This liquid based Th inPrep(R) pap test was screened withthe use of an image guided system. Laboratory - Drug toxicology Ordered By: Shawn Cohen on 09-15-2023 Amphetamines Ql (U) Negative <1000 ng/mL [facility] Benzodiazepines Ql (U) Negative < 200 ng/mL [facility] Cannabinoids Screen Ql (U) Negative < 50 ng/mL [facility] Cocaine Ql (U) Negative < 300 ng/mL [facility] Opiates Ql (U) Negative < 300 ng/mL [facility] No Panel InformationOrdered By: Shawn Cohen on 09-15-2023 MDMA (Ecstasy) Screen Negative < 500 ng/mL [facility] Miscellaneous Test See comment [facility] Comment on above: TEST RESULTS LIMITST ramadol Positive Dsbnvo=519 Tramadol Conf, [place], [place] >[id number] Oxpewj=524 TESTING PERFORMED AT [facility]. ORIGINAL REPORT ON FILE IN LAB CONTAINS ADDITIONAL TEST SITE INFORMATION. Urine Barbiturates Screen Negative < 200 ng/mL [facility] Urine Drug Screen Comment [facility] Comment on above: CONFIRMATORY TESTING FOR ALL POSITIVE URINE DRUG SCREENRESULTS WILL ONLY BE SENT OUT UPON PHYSICIAN ORDER. VISTA Urine Drug Screen methods provide only preliminaryanalytical test results. A more specific alternate chemicalmethod must be used in order to obtain a confirmedanalytical result. Gas chromatography/mass spectrometery(GC/MS) is the preferred confirmatory method. Clinicalconsideration and professional judgement should be appliedto any drug of abuse test result, particularly whenpreliminary positive results are used. URINE TCA TESTING MUST BE ORDERED SEPARATELY. USE TESTMNEMONIC: [facility] Urine Methadone Screen Negative < 300 ng/mL [facility] Urine phencyclidine (PCP) de tectionOrdered By: Shawn Cohen on 09-15-2023 Phencyclidine Ql (U) Negative < 25 ng/mL [facility] UA DIP, URINE (POC)on 2022 BILIRUBIN UA (POCT) Negative Negative [facility] CLARITY UA (POCT) Clear [facility] COLOR UA (POCT) Yellow [facility] GLUCOSE UA (POCT) Negative Negative mg/dL [facility] Hemoglobin Ql (U) Negative Negative [facility] KETONE UA (POCT) Negative Negative mg/dL [facility] LEUKOCYTES UA (POCT) Negative Negative [facility] NITRITE UA (POCT) Negative Negative [facility] PH UA (POCT) 5.5 4.5 - 8.0 [facility] Protein Ql (U) Negative Negative mg/dL [facility] SPECIFIC GRAVITY UA (POCT) <=1.005 Abnormal 1.005 - 1.030 [facility] UROBILINOGEN UA (POCT) 0.2 E.U./dL Normal E.U./dL [facility] UA DIP, URINE (POC)on 2022 BILIRUBIN UA (POCT) Negative Negative [facility] CLARITY UA (POCT) Cloudy [facility] COLOR UA (POCT) Yellow [facility] GLUCOSE UA (POCT) Negative Negative mg/dL [facility] Hemoglobin Ql (U) Trace-intact Abnormal Negative [facility] KETONE UA (POCT) Negative Negative mg/dL [facility] LEUKOCYTES UA (POCT) Moderate Abnormal Negative [facility] NITRITE UA (POCT) Negative Negative [facility] PH UA (POCT) 6.5 4.5 - 8.0 [facility] Protein Ql (U) Negative Negative mg/dL [facility] SPECIFIC GRAVITY UA (POCT) 1.010 1.005 - 1.030 [facility] UROBILINOGEN UA (POCT) 0.2 E.U./dL Normal E.U./dL [facility] Whole blood hemoglobin A1c/t otal hemoglobin ratio (mass fraction)Ordered By: Isai Ornelas on 03-15-2023 HbA1c (Bld) [Mass fraction] 7.5 % 3.8-5.6 [facility] Comment on above: Normal < 5.7 % Predi abetic 5.7 - 6.4 % Diabetic >or= 6.5 % Please note range changes. Basophil percentageOrdered B y: Isai Ornelas on 03-12-2023 Chloride [Moles/Vol] 102 mmol/L 98-107 [facility] Glucose [Mass/Vol] 151 mg/dL 74-106 [facility] Comment on above: Fasting Glucose resu lt greater than or equal to 126 mg/dL suggests DIABETES MELLITUS per A.D.A. criteria. Potassium [Moles/Vol] 3.8 mmol/L 3.5-5.1 [facility] Sodium [Moles/Vol] 138 mmol/L 136-145 [facility] WBC (Bld) [#/Vol] 9.6 10*3/uL 4.4-11.0 [facility] Blood erythrocytes count (nu mber/volume)Ordered By: Isai Ornelas on 03-12-2023 RBC (Bld) [#/Vol] 4.98 10*6/uL 4.2-5.4 [facility] Blood hemoglobin measurement (mass/volume)Ordered By: Isai Ornelas on 03-12-2023 Hemoglobin (Bld) [Mass/Vol] 11.7 g/dL 12.0-15.0 [facility] Blood platelet mean volumeOr dered By: Isai Ornelas on 03-12-2023 Platelet mean volume (Bld) [Entitic vol] 9.6 fL 6.2-12.0 [facility] Determination of erythrocyte mean corpuscular volume (MCV)Ordered By: Isai Ornelas on 03-12-2023 MCV (RBC) [Entitic vol] 77.5 fL 81-99 [facility] Hematocrit Auto (Bld) [Volum e fraction]Ordered By: Isai Ornelas on 03-12-2023 Hematocrit (Bld) [Volume fraction] 38.6 % 37-47 [facility] Laboratory - Chemistry and C hemistry - challengeOrdered By: Isai Ornelas on 03-12-2023 CO2 [Moles/Vol] 28.0 mmol/L 21.0-32.0 [facility] Urea nitrogen/Creatinine [Mass ratio] 23.9 mg/mg 10-20 [facility] Laboratory - Hematology and Cell countsOrdered By: Isai Ornelas on 03-12-2023 Erythrocyte distribution width (RBC) [Entitic vol] 45.8 fL 35.1-43.9 [facility] Erythrocyte distribution width (RBC) [Ratio] 16.3 % 11.6-14.6 [facility] MCH (RBC) [Entitic mass] 23.5 pg 27.0-32.0 [facility] MCHC Auto (RBC) [Mass/Vol]Or dered By: Isai Ornelas on 03-12-2023 MCHC (RBC) [Mass/Vol] 30.3 g/dL 32-36 [facility] No Panel InformationOrdered By: Isai Ornelas on 03-12-2023 Estimated GFR (MDRD) Amer 86 mL/min >60 [facility] Comment on above: GFR Calc Estimated GFR (MDRD) Non-Af Amer 71 mL/min >60 [facility] Comment on above: Non- GFR Calc Platelets bldOrdered By: Ottoniel Ornelas on 03-12-2023 Platelets (Bld) [#/Vol] 444 10*3/uL 150-450 [facility] Serum or plasma calcium sandor urement (mass/volume)Ordered By: Isai Ornelas on 03-12-2023 Calcium [Mass/Vol] 9.1 mg/dL 8.5-10.1 [facility] Serum or plasma creatinine m easurement (mass/volume)Ordered By: Isai Ornelas on 03-12-2023 Creatinine [Mass/Vol] 0.84 mg/dL 0.55-1.02 [facility] Comment on above: The validity of the calculated GFR & GFRAA in patients over 70 years has not been determined. Clinical correlation is essential. Serum or plasma urea nitroge n measurement (mass/volume)Ordered By: Isai Ornelas on 03-12-2023 Urea nitrogen [Mass/Vol] 20 mg/dL 7-18 [facility] Thin prep Papanicolaou smear with manual screeningOrdered By: Isai Ornelas on 03-12-2023 Thin prep Papanicolaou smear with manual screening 8 5-15 [facility] Whole blood hemoglobin A1c/t otal hemoglobin ratio (mass fraction)Ordered By: Isai Ornelas on 03-12-2023 HbA1c (Bld) [Mass fraction] 7.6 % 3.8-5.6 [facility] Comment on above: Normal < 5.7 % Predi abetic 5.7 - 6.4 % Diabetic >or= 6.5 % Please note range changes. SURGICAL PATHOLOGYon 023 Case Report Surgical Pathology R eport Case: [id number] Authorizing Provider: Tosin Arredondo DO Collected: 01/14/2023 02:13 PM Ordering Location: Procedures Received: 01/14/2023 02:50 PM Pathologist: Mary Joy MD Specimens: A) - DUODENUM BIOPSY B) - STOMACH BIOPSY [facility] FINAL DIAGNOSIS A. Duodenum, biopsy - Duodenal mucosa with no significant diagnostic alteration. - No evidence of celiac disease or duodenitis. B. Stomach, biopsy: - Oxyntic mucosa with no significant diagnostic alteration. - No morphologic evidence of Helicobacter pylori organisms. [facility] Gross Description A. DUODENUM BIOPSY Received in formalin are two pieces of lewis-red, soft tissue aggregating to 0.6 x 0.2 x 0.2 cm. Totally submitted in one cassette. B. STOMACH BIOPSY Received in formalin is one piece of lewis, soft tissue measuring 0.8 x 0.2 x 0.2 cm. Totally submitted in one cassette. Gross examination performed at [facility], [facility] [place] [id number] January 14, 2023 9:32 PM [facility] Performing Lab Diagnostic interpret ation performed at [facility], [address] [address] CLIA# [id number] Staff Scientist: Jordan Kiser M.D. [facility] CYTOLOGY NON-GYNon 3 Case Report Medical Cytology Rep ort Case: [id number] Authorizing Provider: Tosin Arredondo DO Collected: 01/14/2023 02:14 PM Ordering Location: Procedures Received: 01/14/2023 02:50 PM Pathologist: Jose Fuentes MD Specimen: ESOPHAGEAL BRUSH [facility] FINAL DIAGNOSIS A - ESOPHAGEAL BRUSH : Negative for malignant cells. 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 [facility] Gross Description A. ESOPHAGEAL BRUSH 30 cc hazy colorless CytoLyt with brush with particles. ThinPrep prepared. [facility] Performing Lab Technical component, nursing program coordinator screening performed at [facility], [address] [facility] [address] CLIA# [id number] Diagnostic interpretation performed at [facility], [address], [facility] [address] CLIA# [id number] Staff Scientist: Jordan Kiser M.D. [facility] ANES POSTPROC EVALon 023 ANES POSTPROC EVAL HNO ID: [id number] Author: Huey Skinner MD Service: Anesthesiology Author Type: Anesthesiologist Type: Anesthesia Postprocedure Evaluation Filed: 01/14/2023 2:29 PM Note Text: POST ANESTHESIA EVALUATION NOTE : 1950 Procedure Summary Date: 01/14/23 Room / Location: Procedures Anesthesia Start: 1407 Anesthesia Stop: 1419 Procedure: EGD DIAGNOSTIC Diagnosis: Belching symptom (Eructation) Scheduled Providers: Tosin Arredondo DO; LIZANDRO Chapin; Huey Skinner MD; Tierra Barnes RN Responsible Provider: Huey Skinner MD Anesthesia Type: MAC ASA Status: 3 Anesthesia Type: MAC Last Vitals Vitals Value Taken Time BP See rn note 01/14/23 1428 Temp See rn note 01/14/23 1428 Pulse 93 01/14/23 1428 Resp 18 01/14/23 1428 SpO2 97 % 01/14/23 1428 Vitals shown include unvalidated device data. Post Anesthesia Patient Status Patient Evaluation: PACU. PACU/ICU Patient Condition: stable. Anticipated Disposition: phase 2 then home. Neurological Status: aware and responsive. Pulmonary Status: breathing comfortably on room air Airway Control: returned to baseline unsupported. Cardiovascular Status: stable. Pain Management: clinically adequate - multimodal analgesia pain management approach Postoperative Hydration: acceptable. Intraoperative Events: no significant anesthesia events Post Operative Nausea/Vomiting Status: no significant post operative nausea or vomiting Recommendation: continue current plan of care. Anesthesia Observations No Documentation SIGNATURE: Huey Skinner MD PATIENT NAME: Janessa Baron DATE: January 14, 2023 TIME: 2:28 PM CSN: [id number] [facility] ANES PRE-OPon 01-14-2023 ANES PRE-OP HNO ID: [id number] Author: Huey Skinner MD Service: Anesthesiology Author Type: Anesthesiologist Type: Anesthesia Preprocedure Evaluation Filed: 01/14/2023 1:45 PM Note Text: ANESTHESIOLOGY DAY OF SURGERY NOTE : 1950 Procedure Information Date/Time: 01/14/23 1330 Scheduled providers: Tosin Arredondo DO; LIZANDRO Chapin; Huey Skinner MD; Tierra Barnes RN Procedure: EGD DIAGNOSTIC Location: Procedures Estimated body mass index is 33.66 kg/m? as calculated from the following: Height as of 12/30/22: 160 cm (5' 3). Weight as of 01/06/23: 86.2 kg (190 lb). 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 Tracheostomy tube not present Mallampati: II. TM distance: >3 FB. Neck ROM: full ROM without neurological symptoms. Mouth opening: adequate. Short neck: no. Thick neck: no Chawla present: no Microretrognathia/Microna gthia/Recessed Chin: No DENTAL Normal dental observations. Dental findings: teeth intact. Additional exam findings: yes. CARDIOVASCULAR Rhythm: regular Rate: normal Peripheral edema not present. Weak pulses not present. PULMONARY Additional comments: Normal rate and rhythm, no accessory muscle usage . II - ANESTHESIA PLAN ASA Score: 3 Anesthetic Plan: MAC NPO Status: adequate Beta Ghulam Monitoring Plan Monitoring plan: Standard ASA. Post Procedure Analgesic Plan Postoperative analgesic plan: parenteral or oral opioids and multimodal analgesia. Informed Consent Anesthetic risks, benefits, alternatives, personnel and consent discussed: yes. Patient / Responsible Alliance Party agrees to proceed: yes Patient / Surrogate agrees to blood products: blood products not planned DNR status not reviewed with patient and/or family prior to surgery. Significant changes in the patient condition since the History and Physical, not otherwise documented in primary service progress note: no. Potential Anesthesia issues that may suggest increased risk of complications or contraindication to planned procedure: none. No vitals data found for the desired time range. Outpatient Medications as of 01/14/2023 Medication Sig - omeprazole (PRILOSEC) 40 mg capsule Take 1 capsule by mouth twice daily. - lisinopril (ZESTRIL) 5 mg tablet Take 5 mg by mouth once daily. - metoprolol tartrate, short acting, (LOPRESSOR) 25 mg tablet Take 25 mg by mouth twice daily. - empagliflozin (JARDIANCE) 10 mg tablet Take 10 mg by mouth daily with breakfast. - lancets (TRUEPLUS LANCETS) 33 gauge Monitor blood sugar daily and as needed. - metFORMIN (GLUCOPHAGE) 500 mg tablet Take 2 tablets by mouth twice daily with meals. - ascorbic acid, vitamin C, (VITAMIN C) 500 mg tablet Take by mouth. - multivitamin tablet Take by mouth. - glimepiride (AMARYL) 4 mg tablet Take 1 tablet by mouth daily with breakfast. - fluticasone (FLONASE ALLERGY RELIEF) 50 mcg/actuation nasal spray Use 2 Sprays in each nostril once daily. - traMADol (ULTRAM) 50 mg tablet Take 50 mg by mouth every 6 hours as needed for pain. - methylcellulose (CITRUCEL ORAL) Take by mouth. - diclofenac (VOLTAREN) 1 % topical gel Apply to affected area four times daily. - mag carb/aluminum hydrox/algin (GAVISCON ORAL) Take by mouth. - B-complex with vitamin C (SUPER B COMPLEX-VITAMIN C ORAL) Take by mouth. - FA/mv,Ca,iron,min/lycopen e/lut (MULTIVITAL ORAL) Take by mouth. - calcium carbonate/vitamin D3 (CALCIUM 500 + D ORAL) Take by mouth. - cetirizine HCl (ZYRTEC ORAL) Take by mouth. - aspirin, enteric coated (ASPIRIN, ENTERIC COATED) 81 mg EC tablet Take 81 mg by mouth once daily. - blood sugar diagnostic (RateItAllUCH ULTRA TEST) test strip Monitor blood sugar daily and as needed. - albuterol (PROVENTIL) 2.5 mg /3 mL (0.083 %) nebulizer solution INHALE WITH 1 VIAL IN NEBULIZER EVERY SIX HOURS NEEDED - lisinopril-hydroCHLOROthi azide (PRINZIDE,ZESTORETIC) 20-12.5 mg per tablet Take 1 tablet by mouth twice daily. - omeprazole (PRILOSEC) 20 mg capsule Take 1 capsule by mouth twice daily. - simvastatin (ZOCOR) 40 mg tablet Take 1 tablet by mouth daily at bedtime. - montelukast (SINGULAIR) 10 mg tablet Take 1 tablet by mouth daily at bedtime. - budesonide-formoterol (SYMBICORT) 160-4.5 mcg/actuation inhaler Inhale 2 Puffs as instructed twice daily. - pioglitazone (ACTOS) 45 mg tablet Take 1 tablet by mouth once daily. - ubidecarenone (CO Q-10 ORAL) Take by mouth. Facility-Administered Medications as of 01/14 (more content not included)... Normal [facility] CYTOLOGY NON-GYNon 3 CASE REPORT [facility] Comment on above: Order Comment: Speci men Type: BRONCHIAL BRUSHINGS SPECIMEN Ordering Facility: [facility] Address: [address] [place] [address] Result Comment: [facility] Cytology Report Case: [id number] Authorizing Provider: Tosin Arredondo DO Collected: 01/14/2023 02:14 PM Ordering Location: Procedures Received: 01/14/2023 02:50 PM Pathologist: Jose Fuentes MD Specimen: ESOPHAGEAL BRUSH Performed By: #### C YTONON #### [facility] CLIA [id number] [address] [place] [address] [place] [facility] CLIA [id number] [address] [facility] [place], [place] [id number] [place] [address] FINAL DIAGNOSIS [facility] Comment on above: Order Comment: Speci men Type: BRONCHIAL BRUSHINGS SPECIMEN Ordering Facility: [facility] Address: [address] [place] [address] Result Comment: A - ESOPHAGEAL BRUSH: Negative for malignant cells. 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 Performed By: #### C YTONON #### [facility] CLIA [id number] [address] [id number] [facility] CLIA [id number] [address] [place] [address] [facility] FINAL PERFORMING LAB Normal [facility] Comment on above: Order Comment: Speci men Type: BRONCHIAL BRUSHINGS SPECIMEN Ordering Facility: [facility] Address: [address] [address] Result Comment: Tech nical component, nursing program coordinator screening performed at [facility], [facility] [address] CLIA# [id number] Diagnostic interpretation performed at [facility], [facility] [address] CLIA# [id number] Staff Scientist: Jordan Kiser M.D. Performed By: #### C YTONON #### [facility] CLIA [id number] [facility] [address] [facility]ORY CLIA [id number] [address] [place] [id number] [place] [address] GROSS DESCRIPTION Normal [facility] Comment on above: Order Comment: Speci men Type: BRONCHIAL BRUSHINGS SPECIMEN Ordering Facility: [facility] Address: [address] Result Comment: A. E SOPHAGEAL BRUSH 30 cc hazy colorless CytoLyt with brush with particles. ThinPrep prepared. Performed By: #### C YTONON #### [facility] CLIA [id number] [facility] [address] [id number] [facility] CLIA [id number] [address] [place] [address] [place] EGD DIAGNOSTICon 01-14-2023 [facility] GLUCOSE, BLOOD (POC)on 06-01 -2023 Glucose [Mass/Vol] 140 mg/dL Abnormal 74 - 99 mg/dL [facility] HISTORY PHYSICALon HISTORY PHYSICAL HNO ID: [id number] Author: Tosin Arredondo DO Service: Gastroenterology Author Type: Physician Type: HANDP Filed: 01/14/2023 12:55 PM Note Text: HISTORY AND PHYSICAL Janessa Baron, 72 year old female Current history and physical on file: No Is a new History and Physical required for today's visit? Yes Indication for procedure: Other belching PROCEDURE(S) SCHEDULED FOR: EGD (Esophagogastroduodenosco py) with or without biopsies, removal of polyps or lesions, dilation ( any means), treatment of bleeding ( any means), Barrx treatment of Vamsi's Esophagus, image tube placement or cryo therapy treatment based on clinical findings. BASELINE BEHAVIOR: Calm BASELINE ORIENTATION: A AND O x3 All medications and allergies reviewed: Yes Skin Assessment: Warm dry mucus membranes pink Airway/Respiratory Assessment: Airway: visualization of the uvula- Yes Mouth: opening greater than 2 fingerbreadths- Yes Neck: full range of motion- Yes Breath sounds clear/equal- Yes Cardiac Assessment: Regular rate and rhythm without murmur Abdominal Assessment: Abdomen soft, non-tender, no masses or organomegaly. Sedation Plan: MAC Additional Comments: None Tosin Arredondo DO [facility] SURGICAL PATHOLOGYon 023 CASE REPORT [facility] Comment on above: Order Comment: Gadiel cisneros Type: TISSUE SPECIMEN Ordering Facility: [facility] Address: [address] [place] [address] Result Comment: Surg ica Pathology Report Case: [id number] Authorizing Provider: Tosin Arredondo DO Collected: 01/14/2023 02:13 PM Ordering Location: Procedures Received: 01/14/2023 02:50 PM Pathologist: Mary Joy MD Specimens: A) - DUODENUM BIOPSY B) - STOMACH BIOPSY Performed By: #### S #### [facility] CLIA [id number] [address] [facility] [address] OF [facility] FINAL DIAGNOSIS [facility] Comment on above: Order Comment: Gadiel cisneros Type: TISSUE SPECIMEN Ordering Facility: [facility] Address: [address] [address] Result Comment: A. D uodenum, biopsy - Duodenal mucosa with no significant diagnostic alteration. - No evidence of celiac disease or duodenitis. B. Stomach, biopsy: - Oxyntic mucosa with no significant diagnostic alteration. - No morphologic evidence of Helicobacter pylori organisms. Performed By: #### S #### [facility] CLIA [id number] [address] [place] [address] [place] FINAL PERFORMING LAB Normal [facility] Comment on above: Order Comment: Speci men Type: TISSUE SPECIMEN Ordering Facility: [facility] Address: [address] [place] [address] Result Comment: Diag nostic interpretation performed at [facility], [address] [place] [address] CLIA# [id number] Staff Scientist: Jordan Kiser M.D. Performed By: #### S #### [facility] CLIA [id number] [address] [place] [address] [place] GROSS DESCRIPTION [facility] Comment on above: Order Comment: Speci men Type: TISSUE SPECIMEN Ordering Facility: [facility] Address: [address] [place] [address] Result Comment: A. D UODENUM BIOPSY Received in formalin are two pieces of lewis-red, soft tissue aggregating to 0.6 x 0.2 x 0.2 cm. Totally submitted in one cassette. B. STOMACH BIOPSY Received in formalin is one piece of lewis, soft tissue measuring 0.8 x 0.2 x 0.2 cm. Totally submitted in one cassette. Gross examination performed at [facility], [address] [place] [address] January 14, 2023 9:32 PM Performed By: #### S #### [facility] CLIA [id number] [address] [place] [address] [place] Upper GI endoscopyon 023 Upper GI endoscopy [facility] Gastrointestinal Endoscopy Patient Name: Janessa Baron Procedure Date: 01/14/2023 1:58 PM Date of : 1950 Admit Type: Outpatient Age: 72 Room: [place] [address] Gender: Female Note Status: Finalized Attending MD: Tosin Arredondo DO Procedure: Upper GI endoscopy Indications: Eructation Providers: Tosin Arredondo DO Patient Profile: This is a 72 year old female. Refer to note in patient chart for documentation of history and physical. Referring Physician: Tosin Arredondo DO (Referring MD) Medicines: See the Anesthesia note for documentation of the administered medications Requesting Provider: Procedure: Pre-Anesthesia Assessment: - Prior to the procedure, a History and Physical was performed, and patient medications and allergies were reviewed. The patient's tolerance of previous anesthesia was also reviewed. The risks and benefits of the procedure and the sedation options and risks were discussed with the patient. All questions were answered, and informed consent was obtained. Prior Anticoagulants: The patient has taken no anticoagulant or antiplatelet agents. ASA Grade Assessment: III - A patient with severe systemic disease. After reviewing the risks and benefits, the patient was deemed in satisfactory condition to undergo the procedure. After obtaining informed consent, the endoscope was passed under direct vision. Throughout the procedure, the patient's blood pressure, pulse, and oxygen saturations were monitored continuously. The 3031 was introduced through the mouth, and advanced to the second part of duodenum. The upper GI endoscopy was accomplished without difficulty. The patient tolerated the procedure well. Moderate Sedation: MAC anesthesia was administered by the anesthesia team. Total Procedure Duration: 0 hours 5 minutes 8 seconds Findings: Multiple diminutive plaques were found in the middle third of the esophagus and in the lower third of the esophagus. Brushings for AYAH prep were obtained in the middle third of the esophagus and in the lower third of the esophagus. Estimated blood loss: none. The exam of the esophagus was otherwise normal. Bilious fluid was found in the gastric body. Moderate inflammation characterized by congestion (edema) and erythema was found in the gastric body. Biopsies were taken with a cold forceps for Helicobacter pylori testing. Biopsies were taken with a cold forceps for histology. Estimated blood loss was minimal. The examined duodenum was normal. Biopsies were taken with a cold forceps for histology. Biopsies for histology were taken with a cold forceps for evaluation of celiac disease. Estimated blood loss was minimal. Impression: - Multiple plaques in the middle third of the esophagus and in the lower third of the esophagus. Brushings performed. - Bilious gastric fluid. - Gastritis. Biopsied. - Normal examined duodenum. Biopsied. Recommendation: - Patient has a contact number available for emergencies. The signs and symptoms of potential delayed complications were discussed with the patient. Return to normal activities tomorrow. Written discharge instructions were provided to the patient. - Resume previous diet. - Continue present medications. - Await pathology results. - Repeat upper endoscopy is not recommended. - Return to referring physician. Procedure Code(s): --- Professional --- 07390, Esophagogastroduodenoscop y, flexible, transoral; with biopsy, single or multiple Diagnosis Code(s): --- Professional --- K22.89, Other specified disease of esophagus K29.70, Gastritis, unspecified, without bleeding R14.2, Eructation CPT copyright 2020 [employer]. All rights reserved. The codes documented in this report are preliminary and upon in house cra review may be revised to meet current compliance requirements. Attending Participation: I personally performed the entire procedure. Scope In: 2:11:18 PM Scope Out: 2:16:26 PM DO Tosin Ames DO 01/14/2023 2:20:32 PM This report has been signed electronically by Tosin Arredondo DO Number of Addenda: 0 Note Initiated On: 01/14/2023 1:58 PM Estimated Blood Loss: Estimated blood loss was minimal. Normal [facility] XR ABD 2V SUPINE W UPR/DECUB /CTLon 01-06-2023 XR ABD 2V SUPINE W UPR/DECUB/CTL * * *Final Report* * * DATE OF EXAM: Jan 06 2023 12:05PM X 5356 - XR ABD 2V SUPINE W UPR/DECUB/CTL / PROCEDURE REASON: Belching symptom * * * * Physician Interpretation * * * * XR ABD 2V SUPINE W UPR/DECUB/CTL PROVIDED HISTORY: Belching symptom COMPARISON: No previous similar exams are available for comparison TECHNIQUE: Supine and upright RESULT: Bowel gas pattern unremarkable with no renal stones seen. No free air is identified. Osseous structures appear grossly unremarkable IMPRESSION: No obstruction or free air seen Construction Executive: LOUIS Transcribe Date/Time: Jan 07 2023 7:08A Dictated by : DELILAH NY MD This examination was interpreted and the report reviewed and electronically signed by: DELILAH NY MD on Jan 07 2023 7:08AM EST [id number] [facility] XR ABDOMEN 2V ROUTINE SUPINE W UPRIGHT/DECUB/CTLon 01-06-2023 [facility] Glucose Glucometer (BldC) [M ass/Vol]Ordered By: Al Perez on 01-04-2023 Glucose [Mass/Vol] 144 mg/dL 74-106 [facility] Comment on above: MANAGEMENT OF PATIEN T CARE PER NURSING PROTOCOL 36on 12-25-2022 36 Called patient. Documented in separate encounter. Elsie Pedraza APRN - YULY 12/25/22 [facility] 36 Returned patient's c all. Patient reportedly has been belching since this [...] the problem continues. PATRICIA Ramirez CNP 12/25/22 [facility] 36 Home care nurse also calling in and patient blood pressure is 168/88 and does mention about her continuing burping and that the reglan is making patient anxious Please advise [facility] 36 Patient is calling in and patient is having bad gas bubbles ever since surgery. I do see that PATRICIA Batres addressed this on 12/22/22 but says nothing is working and wondering if any other suggestions? They are going to GI doctor on 5/17 Per Medardo note below - Advised she avoid high gas producing food - Added Simethicone - Added Reglan - Recommend she eat and follow with her known GI doctor Please advise [phone] Normal [facility] Absolute lymphocyte countOrd ered By: Dr. Perez on 12-22-2022 Lymphocytes Auto (Unsp spec) [#/Vol] 3.15 10*3/uL 0.83-4.51 [facility] Basophil percentageOrdered B y: Dr. Perez on 12-22-2022 Basophils/100 WBC (Bld) 0.8 % 0-1 [facility] Bilirubin [Mass/Vol] 0.30 mg/dL 0.20-1.00 [facility] Comment on above: For patients on eltr ombopag therapy, use of Dimension [place] TBIL is not recommended. Chloride [Moles/Vol] 98 mmol/L 98-107 [facility] Eosinophils/100 WBC (Bld) 6.5 % 0-5 [facility] Glucose [Mass/Vol] 175 mg/dL 74-106 [facility] Comment on above: Fasting Glucose resu lt greater than or equal to 126 mg/dL suggests DIABETES MELLITUS per A.D.A. criteria. Neutrophils (Bld) [#/Vol] 5.2 10*3/uL 2.0-7.7 [facility] Neutrophils/100 WBC (Bld) 51.2 % 47-70 [facility] Potassium [Moles/Vol] 3.6 mmol/L 3.5-5.1 [facility] Protein [Mass/Vol] 7.8 g/dL 6.4-8.2 [facility] Sodium [Moles/Vol] 135 mmol/L 136-145 [facility] WBC (Bld) [#/Vol] 10.2 10*3/uL 4.4-11.0 [facility] Blood erythrocytes count (nu mber/volume)Ordered By: Dr. Perez on 12-22-2022 RBC (Bld) [#/Vol] 4.33 10*6/uL 4.2-5.4 [facility] Blood hemoglobin measurement (mass/volume)Ordered By: Dr. Perez on 12-22-2022 Hemoglobin (Bld) [Mass/Vol] 11.5 g/dL 12.0-15.0 [facility] Blood lymphocytes/100 leukoc ytesOrdered By: Dr. Perez on 12-22-2022 Lymphocytes/100 WBC (Bld) 31.0 % 19-41 [facility] Blood monocytes/100 leukocyt esOrdered By: Dr. Perez on 12-22-2022 Monocytes/100 WBC (Bld) 10.2 % 0-10 [facility] Blood platelet mean volumeOr dered By: Dr. Perez on 12-22-2022 Platelet mean volume (Bld) [Entitic vol] 8.7 fL 6.2-12.0 [facility] Determination of erythrocyte mean corpuscular volume (MCV)Ordered By: Dr. Perez on 12-22-2022 MCV (RBC) [Entitic vol] 84.5 fL 81-99 [facility] Hematocrit Auto (Bld) [Volum e fraction]Ordered By: Dr. Perez on 12-22-2022 Hematocrit (Bld) [Volume fraction] 36.6 % 37-47 [facility] Laboratory - Chemistry and C hemistry - challengeOrdered By: Dr. Perez on 12-22-2022 ALP [Catalytic activity/Vol] 138 U/L 45-117 [facility] ALT [Catalytic activity/Vol] 20 U/L 13-56 [facility] CO2 [Moles/Vol] 27.0 mmol/L 21.0-32.0 [facility] Globulin (S) [Mass/Vol] 4.1 g/dL 2.2-4.2 [facility] Urea nitrogen/Creatinine [Mass ratio] 19.7 mg/mg 10-20 [facility] - Hematology and Cell countsOrdered By: Dr. Perez on 12-22-2022 Erythrocyte distribution width (RBC) [Entitic vol] 43.8 fL 35.1-43.9 [facility] Erythrocyte distribution width (RBC) [Ratio] 14.2 % 11.6-14.6 [facility] Immature granulocytes/100 WBC (Bld) 0.300 % 0.0-0.9 [facility] Comment on above: IG% - Immature Granu locytes (promyelocytes, myelocytes and metamyelocytes) > 1% indicates that a LEFT SHIFT is Present. MCH (RBC) [Entitic mass] 26.6 pg 27.0-32.0 [facility] Nucleated RBC/100 WBC (Bld) [Ratio] 0 % 0-5 [facility] MCHC Auto (RBC) [Mass/Vol]Or dered By: Dr. Perez on 12-22-2022 MCHC (RBC) [Mass/Vol] 31.4 g/dL 32-36 [facility] No Panel InformationOrdered By: Dr. Perez on 12-22-2022 Estimated GFR (MDRD) Amer 56 mL/min >60 [facility] Comment on above: GFR Calc Estimated GFR (MDRD) Non-Af Amer 46 mL/min >60 [facility] Comment on above: Non- GFR Calc Troponin I High Sensitivity 7 pg/mL 3.0-54.0 [facility] Comment on above: Please Note: New [place]andra t Units and Gender Specific Reference Ranges. For more information see Policy Stat Procedure [place] High Sensitivity Troponin (TNIH) and attachments. Office Visiton 12-22-2022 Follow-up visit [id number] Janessa Baron 1950 F Date Provider Department Center 12/22/2022 [id number] None Family History Problem Relation Age of Onset Stroke Mother Heart disease Mother Colon cancer Sister Diabetes Sister Thyroid cancer Brother Family Status - Relation Status Age at Mother Father Sister Brother Level of Service:[id number] HI POSTOP FOLLOW UP VISIT RELATED TO ORIGINAL PX Reason for Visit and Comments: Follow-up [[id number]] Normal [facility] Platelets bldOrdered By: Dr. Perez on 12-22-2022 Platelets (Bld) [#/Vol] 408 10*3/uL 150-450 [facility] Progress Noteon 12-22-2022 Progress Note [facility] Group: [facility] [address] [facility] [address] Dept: [phone] Dept Loc: [phone] Visit type: Established patient Reason for Visit: Follow-up Assessment and Plan 1. SOB (shortness of breath) 2. CAD in [place] artery 3. Belching - Advised she avoid high gas producing food - Added Simethicone - Added Reglan - Recommend she eat and follow with her known GI doctor Disposition: Patient verbalized understanding of plan and stated they would call if any questions or concerns arise. Treatment Team: PCP: KALI BACON Subjective HPI: Janessa Baron is a 72 y.o. female referred [...] CABG x3 (SMITH-LAD, SVG-OM, SVG-RPDA), LLE EVH. 11/26/2022 [place]: CABG x 3 SMITH-LAD, SVG-OM, SVG-RPDA, L EVH She has recovered well from her surgery and is known to Dr. Rubio - She now presents with increasing SOB and excessive belching that is self limiting, I ordered a CXR for her to rule out late pleural effusion that could be contributing to her SOB. She went to the [facility] ED yesterday and had a full work up and CAD was ruled out per the patient and . Now she is more concerned about the belching than anything else it started at 7pm las night and has not stopped. She has History of duodenal ulcer - no other history. She had an episode like this after her surgery and reglan worked for her allthough it is listed as an allergy she states that it just makes her irritable. Review of Systems Constitutional: Negative for diaphoresis, fatigue and fever. Respiratory: Positive for shortness of breath. Negative for cough and wheezing. Cardiovascular: Negative for chest pain, palpitations and leg swelling. Gastrointestinal: Negative for abdominal distention, constipation and diarrhea. Skin: Negative for color change, pallor and rash. Allergies Allergen Reactions Cefprozil Hives and Rash Erythromycin Rash Gatifloxacin Hives and Rash Lincomycin Hives and Rash Metoclopramide Other Other reaction(s): Intolerance, Intolerance, Other: See Comments Morphine Other reaction(s): Other: See Comments, Other: See Comments, tachycardia Amoxicillin Other reaction(s): Hives Bactrim [Sulfamethoxazole-Trimeth oprim] Clavulanic Acid Hives Dayquil Severe + Vapocool [Tszxsxigzpiai-Nw-Sr-Apap ] Hives Dextromethorphan Hives Doxylamine Hives Iodinated Contrast [...] mg) by mouth daily. 30 tablet 1 fluconazole (Diflucan) 100 MG tablet Take 1 tablet (100 mg) by mouth daily for 14 days. 14 tablet 0 furosemide (Lasix) 40 MG tablet Take 1 tablet (40 mg) by mouth daily for 8 days. 8 tablet 0 glimepiride (Amaryl) 4 MG tablet Take 4 mg by mouth every morning (before breakfast). lisinopril 5 MG tablet Take 1 tablet (5 mg) by mouth daily. 90 tablet 3 Melatonin 5 MG capsule Take 1 capsule by mouth Nightly as needed. metFORMIN (Glucophage) 500 MG tablet Take 2 tablets by mouth in the morning and 2 tablets in the evening. Take with meals. metoprolol tartrate (Lopressor) 25 MG tablet Take 1 tablet (25 mg) by mouth 2 times daily. 180 tablet 3 montelukast (Singulair) 10 MG tablet Take 1 tablet by mouth Nightly. Multiple Vitamin (MULTI-VITAMIN DAILY PO) Take 1 tablet by mouth daily. nystatin (Mycostatin) 916336 UNIT/GM powder Apply to affected area 3 times daily 15 g 0 omega-3 (Fish Oil) 1000 MG capsule Take 1,000 mg by mouth daily. om (more content not included)... Normal [facility] Serum or plasma albumin sandor urement (mass/volume)Ordered By: Dr. Perez on 12-22-2022 Albumin [Mass/Vol] 3.7 g/dL 3.2-5.0 [facility] Serum or plasma albumin/glob ulin mass ratioOrdered By: Dr. Perez on 12-22-2022 Albumin/Globulin [Mass ratio] 0.9 {ratio} 0.9-2.4 [facility] Serum or plasma calcium sandor urement (mass/volume)Ordered By: Dr. Perez on 12-22-2022 Calcium [Mass/Vol] 9.4 mg/dL 8.5-10.1 [facility] Serum or plasma creatinine m easurement (mass/volume)Ordered By: Dr. Perez on 12-22-2022 Creatinine [Mass/Vol] 1.22 mg/dL 0.55-1.02 [facility] Comment on above: The validity of the calculated GFR & GFRAA in patients over 70 years has not been determined. Clinical correlation is essential. Serum or plasma urea nitroge n measurement (mass/volume)Ordered By: Dr. Perez on 12-22-2022 Urea nitrogen [Mass/Vol] 24 mg/dL 7-18 [facility] Thin prep Papanicolaou smear with manual screeningOrdered By: Dr. Perez on 12-22-2022 Thin prep Papanicolaou smear with manual screening 14 U/L 15-37 [facility] Thin prep Papanicolaou smear with manual screening 10 5-15 [facility] XR Chest 2 Viewson 3 No acute cardiopulmonary disease. Report Dictated on Electronically Signed By: Sachin Lowe Electronically Signed Date/Time: 12/22/2022 4:29 PM EDT [facility] Patient Name: JANESSA BARON : 1950 Exam Date/Time: 12/22/2022 09:37 Procedure: XR CHEST 2 VIEWS Ordering Provider: BIANCHI JENNIFER Reason For Exam: sob CHEST X-RAY PA/LATERAL CLINICAL INDICATION: Shortness of breath Frontal and lateral plain films of the chest were obtained. COMPARISON: 12/01/2022 FINDINGS: The cardiac silhouette is within normal limits. No focal consolidation is seen within the lungs. No pleural effusion or pneumothorax is identified. Degenerative changes of the thoracic spine are noted. Sternotomy wires are again noted. [facility] Sachin Lowe MD - 12/22/2022 Patient Name: JANESSA BARON : 1950 Exam Date/Time: 12/22/2022 09:37 Procedure: XR CHEST 2 VIEWS Ordering Provider: BIANCHI JENNIFER Reason For Exam: sob CHEST X-RAY PA/LATERAL CLINICAL INDICATION: Shortness of breath Frontal and lateral plain films of the chest were obtained. COMPARISON: 12/01/2022 FINDINGS: The cardiac silhouette is within normal limits. No focal consolidation is seen within the lungs. No pleural effusion or pneumothorax is identified. Degenerative changes of the thoracic spine are noted. Sternotomy wires are again noted. IMPRESSION: No acute cardiopulmonary disease. Report Dictated on Electronically Signed By: Sachin Lowe Electronically Signed Date/Time: 12/22/2022 4:29 PM EDT [facility] Rad[facility] Study observation (narrative) [facility] XR Chest 2 ViewsOrdered By: Sachin Lowe on 12-22-2022 [facility] Work Phone: 36on 12-21-2022 36 Spoke with patient, states she has noticed increasing SOB over the last 2 days. At night she feels like she hears more crackles especially when laying flat. She is also getting more SOB and used her nebulizer 2x today. Reports an intermittent dry cough. She does not feel she is SOB all the time or specifically with activity, it is hard to associate the SOB. She denies any chest pain or one sided pain. She has not gained any weight and denies leg swelling. Discussed treatment options with patient. I will call in lasix prescription. Advised her to take 80 mg x1 today then 40 mg daily after that. She will see us in our office tomorrow morning and we will obtain a CXR. Advised patient that if her SOB gets worse or does not feel comfortable this evening/overnight she should go to the ED. She verbalized understanding. Normal [facility] 36 Pt states she is hav ing a productive cough with clear and sometimes yellow sputum. Pt is having shortness of breath at rest and with exertion, worse with inhalation. Pt states she hears wheezing when breathing. Pt denies chest pain, side pain, or fevers. Pt is unable to find finger pulse ox. Please advise. 11/26/2022 [place]: CABG x 3 SMITH-LAD, SVG-OM, SVG-RPDA, L EVH Pt is scheduled for post op on 12/24/22 with FERNANDO Ramirez. Normal [facility] 36on 12-14-2022 36 Sent 14 day course o f Diflucan - Also I sent the requested refills [facility] 36 Patient also states she seen PATRICIA Tyler on 12/10 and patient has a yeast infection under breast and nystatin was called in for her and it is not working- she says it is getting worse not better. It is spreading and getting more red and irritated. Patient is calling in and states she needs refills called into [facility] in [place] Lisinopril 5MG Metoprolol 25 MG Jardiance 10 MG Please advise [phone] [facility] Office Visiton 12-10-2022 Follow-up visit [id number] Janessa Baron 1950 F Date Provider Department Center 12/10/2022 [id number]-DWOYCRQAELSIE PEDRAZA [facility] CT None Family History Problem Relation Age of Onset Stroke Mother Heart disease Mother Colon cancer Sister Diabetes Sister Thyroid cancer Brother Family Status - Relation Status Age at Mother Father Sister Brother Level of Service:75941 HI POSTOP FOLLOW UP VISIT RELATED TO ORIGINAL PX Reason for Visit and Comments: Post-op [483] Follow-up [125195] Normal [facility] Progress Noteon 12-10-2022 Progress Note [facility] Medical Group: [facility] [address] [facility] [address] Dept: [phone] Dept Loc: [phone] Visit type: Established patient Reason for Visit: Post-op and Follow-up Assessment and Plan 1. S/P CABG x 3 2. 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 -Antifungal powder prescribed for under breasts. -Refill of zofran, though nausea has improved. -Doing well with Home Health PT, discussed Cardiac Rehab in [place] when Home PT signs off. -Reviewed home [...] questions or concerns arise. Treatment Team: PCP: KALI BACON Subjective HPI: Janessa Baron is a 72 y.o. female referred [...] schedule Cardiology appointment with Dr. Rubio in [place]. Patient recovery going well, only complaint is [...] Comments, tachycardia Amoxicillin Other reaction(s): Hives Bactrim [Sulfamethoxazole-Trimeth oprim] Clavulanic Acid Hives Dayquil Severe + Vapocool [Axppmoktdvquf-Oh-Si-Apap ] Hives Dextromethorphan Hives Doxylamine Hives Iodinated Contrast Media Hives Pseudoephedrine Hives Statins Other reaction(s): Other D (more content not included)... [place] [id number] 36 Instructed to call o ffice in am. [address] 12-07-2022 36 Pt states she is fee ling a little better. Her nausea has subsided and she is able to eat more. She states she does have trouble sleeping since she usually would sleep on her stomach but is now sleeping in a recliner. She states she does have some fatigue especially with visitors. Verified post op appointment. Pt states PT and HHC will be coming out today. Pt will call office with any additional questions or concerns. [place] [address] Left voicemail for p t to call office. Just wanted to see how pt is feeling. [address] 12-04-2022 36 Spoke to pt to check on Janessa. He states it was frustrating not getting the medication until 10pm last night when they called during the day. I apologized. He states patient's nausea is better but her taste is off and she has a decreased appetite. He states she is eating small amounts and drinking Ensure. Advised him that this is common after this surgery and it should get better. Advised him to call our office if her symptoms worsen or she is not eating. Will call pt on Wednesday to see how she is doing. [place] [id number] 36 Name of caller reque sting page:Rody Phone Number of caller: [phone] Facility requesting page: n/a Reason for Page: Has been trying to get a prescription of Zofran called in, patient is nauseous. Provider paged: Dr Harris Practice Name of paged provider: Cardiothoracic Surgery Time Page was sent or provider contacted: 8:08 pm Page Content: Please call Rody of Janessa Baron 54 at [phone] zofran was supposed to have been called in earlier but has not, patient is very nauseated [facility] 36 Name of caller reque sting page:Rody Phone Number of caller: [phone] Facility requesting page: Reason for Page: Pt is out of zofran Provider paged: Practice Name of paged provider: Cardiothoracic Surgery Page Placed to #: call center director finder Time Page was sent or provider contacted: 6:48 Page Content: Pt called into the office today due to being very nauseated and having dry heaves she was told the Zofran was being called in but it was not Normal [place] [address] Called and talked wi th pt- c/o being very nauseated and having dry heaves. Pt is able to keep Ensure and water down but has no appetite for solid food. Pt states Zofran worked for her after surgery while in hospital and is requesting for prescription to be called into her pharmacy. Verified pharmacy [facility] on [place], [place]. Normal [facility] 36 Lisa from [facility] called in and the patient has been nauseated and vomitting for a couple days. She has taken over the counter meds, but not working. She would like zofran or similar called in to the [facility] in [place] if possible. Normal [facility] 12-02-2022 [facility] Patient Choice Patient Name: JANESSA BARON Date of : 1950 [facility] 12-01-2022 JODEE Spoke with patient a nd at bedside, notified [facility] will be able to accept. No further discharge needs expressed. [facility] liaison aware of dc today. [facility] Progress Noteon 12-01-2022 Progress Note Physical Therapy Facility/Department: 1T Physical Therapy Daily Treatment Note NAME: Janessa Baron : 1950 Date of Service: 12/01/2022 Discharge Recommendations: Home with assist PRN, Home with Home health PT PT Equipment Recommendations Other: tbd Assessment Requires PT Follow-Up: Yes Assessment: Pt progressing towards goals. Able to recall and demonstrate all sternal precautions throughout Tx. Did not require any physical or verbal assistane for transfers; did utilize pillow for bracing prior to completing sit to stand. Pt able to walk to stair trial, complete stairs, and return to her room with Mid-I and without any standing or seated rest breaks; increased time required. Educated Pt on importance of continuing P&C exercises once she gets home 3-4x a day. Pt continues to demonstrate safe habits and understanding of precautions. Would be safe to return home with assist PRN and home health physical therapy. Performance Deficits/Impairments: Decreased functional mobility , Decreased coordination, Decreased endurance, Increased pain, Decreased strength, Decreased posture, Decreased body mechanics, Decreased high-level IADLs Treatment Diagnosis: decreased function and mobility due to sternal precautions Decision Making: Medium Complexity Barriers to Learning: pain Patient Diagnosis(es): The primary encounter diagnosis was CAD in [place] artery. A diagnosis of Coronary 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coronary bypass graft of [place] heart, unspecified whether angina present was also pertinent to this visit. has a past medical history of Arthritis, Asthma, Carotid stenosis, Coronary artery disease, Diabetes mellitus (HCC), Hiatal hernia, Hyperlipidemia, and Hypertension. has a past surgical history that includes External ear surgery; Cholecystectomy; Tubal ligation; Oophorectomy; Breast lumpectomy (Bilateral); Cataract extraction (Bilateral); and Cardiac catheterization. Restrictions Restrictions/Precautions Restrictions/Precautions: Fall Risk, General Precautions Required Braces or Orthoses?: No Lower Extremity Weight Bearing Restrictions Right Lower Extremity Weight Bearing: Weight Bearing As Tolerated Left Lower Extremity Weight Bearing: Weight Bearing As Tolerated Upper Extremity Weight Bearing Restrictions Right Upper Extremity Weight Bearing: Weight Bearing As Tolerated Left Upper Extremity Weight Bearing: Weight Bearing As Tolerated Position Activity Restriction Sternal Precautions: No Pushing, No Pulling, 10# Lifting Restrictions Sternal Precautions: YES- Pt able to recall 3/3 sternal precautions Other position/activity restrictions: 2L NC, tele Vision/Hearing Subjective General Chart Reviewed: Yes Patient Assessed for Rehabilitation Services: Yes Response To Previous Treatment: Patient with no complaints from previous session. Family / Caregiver Present: Yes () Diagnosis: CAD in [place] artery s/p CABG x3 11/26 Follows Commands: Within Functional Limits General Comment Comments: SPTA wore gloves this Tx Subjective Subjective: Pt in chair and agreeable to PT. Stated they've already taken 2 full laps around the reagan this morning and completed P&C exercises. C/o restless leg last evening and did not sleep well. RPE reported post Tx Patient Stated Goal: Cognition/Orientation Overall Cognitive Status: WFL Overall Orientation Status: Within Functional Limits Objective Transfers Sit to Stand: Modified independent Stand to sit: Modified independent Comment: x1 chair, able to demonstrate with sternal precations. Held on to pillow for bracing. Ambulation Ambulation: Yes Ambulation 1 Surface 1: Level tile Device 1: No device Assistance 1: Mod independent Quality of Gait 1: slow aurea, uneven step length, No LOB Quality of Gait Comment 1: decreased aurea, decreased step height and length, required increased time to complete distance. Distance (ft) 1: ~200ft Comments 1: Pt ambulated 200ft to stair trail with no AD to mimic PLOF Ambulation 2 Surface 2: Level tile Device 2: No device Assistance 2: Mod independent Quality of Gait 2: No LOB, uneven step length, slow aurea Quality of Gait Comment 2: decreased aurea, decreased step height and length, required increased time to complete distance. Distance (ft) 2: ~200ft Comments 2: Ambulation after stairs back to her room; did not require any sitting or standing rest breaks. Pt was able to complete sentences without intermittent respiration breaks. Stairs Rails 1: Left Device 1: No device Additional Factors: Reciprocal going up, Non-reciprocal going down, Increased time to complete Assistance 1: Mod independent Number of Steps 1: 4 Comment 1: Reciprocal ascending, non-reciprocal descending. Use of L handrail ascending; R descending. Reports she only has 2 entry steps at home. Balance Posture: Fair Sitting - Static: Good Sitting (more content not included)... Normal [facility] Progress Note ----- ----- Attestation signed by Xavier Larson MD at 12/01/2022 3:21 PM I performed a history and physical examination of the patient. I have reviewed the patient's chart including pertinent history, medications, labs, radiology, and other reports. I reviewed the DALY's note and agree with the documented findings and plan of care (with modifications noted if any). I have performed a substantive portion of the the medical decision making. BG stable, 158 this AM. Pt denies any new complaints. at bedside. She is for discharge today. Patient declined insulin. She also was hesitant to start GLP-1 due to her brother's history of thyroid cancer (uncertain of type). BP 120/59 (BP Location: Left arm, Patient Position: Sitting) Pulse 75 Temp 37 ?C (98.6 ?F) (Temporal) Resp 18 Ht 5' 3 (1.6 m) Wt 204 lb (92.5 kg) SpO2 96% PF 96 L/min BMI 36.14 kg/m? awake, alert, not in distress, RRR, chest incision intact, clear breath sounds, +edema, no focal deficits, normal mood and affect. Dx: T2DM with complications. CAD s/p CABG. Obesity Body mass index is 36.14 kg/m?. Plan: - will continue current subcutaneous insulin regimen with Lantus and Humalog while inpatient - continue blood glucose monitoring - discussed postop hyperglycemia management and goals of therapy - patient will be the following regimen: Metformin 5 mg twice daily, glimepiride 4 mg daily, and Jardiance 10 mg daily (new); discontinue pioglitazone - pt will follow up with PCP Total time 20 minutes which include review of records, counseling, management, and coordination of care as documented in note. ----- Department of Internal Medicine Division of Endocrinology, Diabetes, & Metabolism Endocrinology Note Patient Name: Janessa Baron : 1950 AGE: 72 y.o. Room/Bed: T1-102/T1-102 A Admission Date: 11/26/2022 Visit Date: 12/01/2022 Reason for Endocrine Consult: post op heart Provider/Team Requesting Consult: cts PCP: KALI BACON Outpt Computer Compositor: No ASSESSMENT: CABGx3 Stress hyperglycemia DM2 with hyperglycemia without intermediate teacher insulin use HTN HLP PLAN: Continue lantus 26 units QAM Keep humalog 6TID AC Continue med S.S. humalog TID with meals FSBG to occur AC/HS/PRN Treat hypoglycemia per protocol Change to carb controlled diet ICU goal <180 GMF goal <150 ANTICIPATED ENDOCRINE HOME GOING RECOMMENDATIONS: Optimized for Discharge from Endocrine standpoint: yes Home Going Endocrine Rx Recommendations-- Keep metformin 500mg po bid Start sglt2 jardiance 10 mg po daily Continue on glimipiride 4mg po daily Stop Actos! Patient does not want to start glp1- ozempic due to family hx of thyroid cancer Pt wishes to not start insulin jardiance are both 45$ /mo Patient agreeable to costs Dm educator to teach glp1 injections Outpt Follow Up-- PCP- lives in [place] SUBJECTIVE/HPI: CHIEF COMPLAINT: No chief complaint on file. CABGx3 Type of DM: 2 Onset of DM: over ten years Home DM Medication Regimen: metformin 500mg po bid, glimipiride 4 mg po daily, actos 30 po daily DM control (last A1c/glucose data): Lab Results Component Value Date HGBA1C 8.0 (H) 11/20/2022 BGL- 243-158 Resting in bed vss Is eating well all meals Had breakfast- no nv noted at bedside Dm educator saw pt yesterday Dc med rec changed for dc today Updated CTS team Spoke with nursing Review of Systems All other systems reviewed and are negative. ROS negative except for those mentioned in HPI. OBJECTIVE: Vitals: 12/01/22 0328 12/01/22 0450 12/01/22 0530 12/01/22 0808 BP: (!) 157/67 (!) 154/64 (!) 152/62 BP Location: Left arm Patient Position: Sitting Pulse: 79 73 82 Resp: 16 Temp: 37.2 ?C (98.9 ?F) 37.1 ?C (98.8 ?F) TempSrc: Temporal Temporal SpO2: 96% 93% Weight: 204 lb (92.5 kg) Height: PF: Physical Exam Vitals and nursing note reviewed. Constitutional: General: She is not in acute distress. Appearance: She is not toxic-appearing. HENT: Head: Normocephalic and atraumatic. Cardiovascular: Rate and Rhythm: Normal rate. Pulmonary: Effort: Pulmonary effort is normal. Abdominal: General: Bowel sounds are normal. Skin: General: Skin is warm and dry. Comments: Intact incision Neurological: General: No focal deficit present. Mental Status: She is alert and oriented to person, place, and time. Psychiatric: Mood and Affect: Mood normal. Behavior: Behavior is cooperative. 24 hour intake/output:No intake or output data in the 24 hours ending 12/01/22 0847 Diet: Adult diet Regular; No Added Salt (3-4 gm); 4 carb choices (60 gm/meal) Medications (as per EMR): HomeMeds: @MEDHMEDS@ Scheduled Meds:acetaminophen, 1,000 mg, Oral, q8h amiodarone, 400 mg, Oral, (more content not included)... Normal [facility] XR CHEST 1 VIEWon 12-01-2022 XR CHEST 1 VIEW Patient Name: JANESSA BARON : 1950 Exam Date/Time: 12/01/2022 05:18 Procedure: XR CHEST 1 VIEW Ordering Provider: PEDRAZA KYLE Reason For Exam: Shortness of breath Examination: Portable chest Indication: Shortness of breath Comparison: Previous day Findings: The cardiac silhouette is upper normal to slightly enlarged. Median sternotomy changes present with calcified aortic arch. The lungs are clear. Suspect minimal left basilar atelectasis. IMPRESSION: Impression: As above. Report Dictated on Electronically Signed By: Iris Pringle Electronically Signed Date/Time: 12/01/2022 7:47 AM EDT Normal [facility] [id number] 11-30-2022 [id number] Received notice that [facility] will be unable to staff this case. Discussed this with the patient and . Both were agreeable to have this sent out to other providers in the area. Educated patient and on Home Care and services available. Patient is agreeable to receiving home care services at this time. Patient was given choice of home care agencies available in the area and is agreeable to having referrals made with agencies that staff the patients service location. Referrals have been sent via [employer]. Liaison to discuss available agencies to accept case with patient upon receiving responses. [facility] Progress Noteon 11-30-2022 Progress Note Nutrition Assessment Type and Reason for Visit: Reassess Nutrition Recommendations/Plan: Continue NATALEE, 4 carb choices (60 g/meal) diet as ordered. If PO intake is improved to >75% at meals consistently, suggest adding cardiac diet restriction (low fat/low chol/high fiber/NATALEE) Continue ONS as ordered: Ensure HP BID Provided heart healthy and diabetes diet education as described in assessment RD will continue to monitor overall nutrition status and follow weekly Diet Education: Educated on heart healthy and diabetes diet Learners: Patient and Significant Other Readiness: Acceptance Method: Explanation and Handout Response: Verbalizes Understanding Contact name and number provided. Malnutrition Assessment: Malnutrition Status: At risk for malnutrition (Comment) Context: Acute Illness Findings of the 6 clinical characteristics of malnutrition: Energy Intake: Mild decrease in energy intake (Comment) Weight Loss: No significant weight loss Body Fat Loss: No significant body fat loss Muscle Mass Loss: No significant muscle mass loss Fluid Accumulation: Mild Extremities Chief Data Officer Strength: Not Performed Nutrition Assessment: Pt remains on HLU s/p CABG x3 on 11/26. Post up, pt had persistent gastric gas bubble on CXR: Attempted NGT placement to suction but patient was unable to tolerate it being in for very long. Now tolerating diet with minimal nausea and improved PO intake over the past couple of days. Pt also endorses consuming ONS well. She is seen ambulating in room and sitting in chair, spouse also present in room. Both indicate they have received information related to DM and heart healthy diet, however are receptive to RD review. RD provided additional copy of heart healthy diet handout with [facility] RD phone number and reviewed recommendations. Also provided plate method handout and reviewed recommendation for up to 60 g/meal carb diet, showed pt where portion sizes per serving can be found on handout and reviewed which foods contain carb. Pt and spouse verbalizedunderstanding. No questions at this time. Estimated Daily Nutrient Needs: Energy Requirements Based On: Kcal/kg Weight Used for Energy Requirements: [place] (25-30 kcal/kg) Weight for Energy Calculation (kg): 52.3 kg Total Energy Requirements (kcals/day): 7839-3339 Weight Used for Protein Requirements: [place] (1.2-1.5 g/kg) Weight in Kg Used for Protein Requirements: 52.3 kg Estimated Total Protein (g/day): 63-78 Estimated Daily Total Fluid (ml/day): per MD Nutrition Related Findings: Teeth: Intact Nutrition History: Independent of feeding and Lives with spouse at home. GI symptoms: minimal nausea Felipe Scale Score: 20 .Wound Type: Multiple, Surgical Incision Net IO Since Admission: 94.43 mL [11/30/22 1514] Peripheral Vascular (WDL): Exceptions to WDL RUE Edema: None, LUE Edema: None, RLE Edema: Non-pitting, LLE Edema: Non-pitting Bowel Sounds (All Quadrants): Active Abdomen Inspection: Soft, Rounded Labs and meds reviewed: acetaminophen, 1,000 mg, Oral, q8h amiodarone, 400 mg, Oral, BID aspirin, 81 mg, Oral, Daily chlorhexidine, 15 mL, Mouth/Throat, BID furosemide, 40 mg, IntraVENous, Daily heparin, 5,000 Units, SubCUTAneous, BID insulin glargine, 30 Units, SubCUTAneous, q AM insulin lispro, 0-12 Units, SubCUTAneous, TID WC insulin lispro, 8 Units, SubCUTAneous, TID WC Lidocaine, 1 patch, TransDERmal, Daily metoprolol tartrate, 25 mg, Oral, BID mirtazapine, 15 mg, Oral, Nightly mometasone-formoterol, 2 puff, Inhalation, BID pantoprazole, 40 mg, Oral, qAM AC polyethylene glycol (PEG) 3350, 17 g, Oral, Daily simvastatin, 40 mg, Oral, Nightly BMP: Recent Labs 11/28/22 0011 11/29/22 0003 11/30/22 0000 NA 132* 132* 133* K 3.4* 3.2* 3.5 CL 102 98 98 CO2 BUN 18* 21* 21* CREATININE 0.99 0.94 1.10* GLUCOSE 160* 189* 149* CALCIUM 8.3* 8.1* 8.3* MG 1.6 1.3* 1.7 Recent Labs 11/29/22 0751 11/29/22 1152 11/29/22 1641 11/29/22202711/30/22 0724 11/30/22 1144 POCGLU 232* 189* 81 119* 179* 146* Lab Results Component Value Date HGBA1C 8.0 (H) 11/20/2022 No results found for: VITD25 No results found for: ZINC Current Nutrition Therapies: Adult diet Regular; No Added Salt (3-4 gm); 4 carb choices (60 gm/meal) Current Oral Intake Average Meal Intake: (improving) Average Supplements Intake: 76-100% Anthropometric Measures: Height: 160 cm (5' 3) Current Body Weight: 93.7 kg (206 lb 9.1 oz) (11/30) Weight Source: Standing Scale Admission Body Weight: 88.5 kg (195 lb) (stated) Usual Body Weight: (203# on 11/10/22, 205# on 09/08/22, 198# on 07/30/22) [place] Body Weight (lbs) (Calculated): 115 lbs [place] Body Weight (Kg) (Calculated): 52 kg % [place] Body Weight (Calculated): 179.6 % BMI (kg/m2) (Calculated): 36.6 BMI Categories: Obese Class 2 (BMI 35.0 -39.9) Wt Readings from Last 10 Encounters: 11/30/22 93.7 kg (206 lb 8 oz) 11/20/22 88.8 (more content not included)... [facility] Progress Note ----- ----- Attestation signed by Girma Lazaro MD at 11/30/2022 5:12 PM I have personally performed a face to face diagnostic evaluation on this patient. In addition, I have reviewed the resident's/SALES AGENT TRADING STAMPS/HYDROLOGIC MODELER's care plan and agree with those findings I have performed a substantive portion of the the medical decision making. My findings are as follows: Denies complaints Feels better Blood glucose readings tightly controlled yesterday and she had hypoglycemia before dinner today Vitals: BP (!) 159/76 (BP Location: Left arm, Patient Position: Sitting) Pulse 57 Temp 37.1 ?C (98.7 ?F) (Temporal) Resp 18 Ht 5' 3 (1.6 m) Wt 206 lb 8 oz (93.7 kg) SpO2 (!) 88% PF 96 L/min BMI 36.58 kg/m? Respiratory: No respiratory distress, Cardiovascular System: No lower extremity edema Abdomen: obese A/P Type 2 diabetes with hyperglycemia without long-term insulin use Status post CABG Obesity Body mass index is 34.54 kg/m?. We will try to to lower the doses of insulin Decrease Lantus to 26 units every morning starting tomorrow Decrease Humalog to 6 units before meals with medium dose correction We will plan to discharge patient on metformin 1000 mg twice a day, Jardiance 10 mg daily, and Ozempic. Today she reported to me that her brother had thyroid cancer. She will call her brother and clarify what type of cancer. If its not medullary thyroid carcinoma then we will go ahead and prescribe Ozempic She was counseled about benefits and side effects of SGLT2 inhibitor She was counseled benefits and side effects of GLP-1 receptor agonist I spent 20 minutes with the pt which involved in coordination of care, medical evaluation, review of records, and/or counseling of the pt regarding his/her condition/disease state/prognosis on the date of this note. Old records including available PCP, ED notes and or other specialists notes are reviewed. LABs and/or imaging are reviewed as detailed in the resident's/SALES AGENT TRADING STAMPS/HYDROLOGIC MODELER's note ----- Per meds to beds- lantus pen 35$ / mo Priced just in case needed on DC Aminah Ly APRN - YULY [facility] Progress Note Physical Therapy Facility/Department: 1T Physical Therapy Daily Treatment Note NAME: Janessa Baron : 1950 Date of Service: 11/30/2022 Discharge Recommendations: Home with assist PRN, Home with Home health PT PT Equipment Recommendations Other: tbd Assessment Requires PT Follow-Up: Yes Assessment: Pt continues to progress towards goals. Pt able to recall sternal precautions and demonstrated understanding of these throughout Tx. Pt was able to ambulate ~[id number] without an AD this Tx and completed stair training at [facility]. Pt took x1 seated rest break after ambulation prior to stairs; SpO2% read 94%- no c/o SOB or discomfort. Pt did not have P&C booklet; SPTA provided pt/pt with one and demonstrated quickly d/t pt needing to use restroom. Will need to continue to educate and reattempt these exercises next Tx. Overall, pt demonstrated safe habbits and would be benefit to return home with assist PRN and home health PT. Performance Deficits/Impairments: Decreased functional mobility , Decreased coordination, Decreased endurance, Increased pain, Decreased strength, Decreased posture, Decreased body mechanics, Decreased high-level IADLs Treatment Diagnosis: decreased function and mobility due to sternal precautions Decision Making: Medium Complexity Barriers to Learning: pain Patient Diagnosis(es): The primary encounter diagnosis was CAD in [place] artery. A diagnosis of Coronary 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coronary bypass graft of [place] heart, unspecified whether angina present was also pertinent to this visit. has a past medical history of Arthritis, Asthma, Carotid stenosis, Coronary artery disease, Diabetes mellitus (HCC), Hiatal hernia, Hyperlipidemia, and Hypertension. has a past surgical history that includes External ear surgery; Cholecystectomy; Tubal ligation; Oophorectomy; Breast lumpectomy (Bilateral); Cataract extraction (Bilateral); and Cardiac catheterization. Restrictions Restrictions/Precautions Restrictions/Precautions: Fall Risk, General Precautions Required Braces or Orthoses?: No Lower Extremity Weight Bearing Restrictions Right Lower Extremity Weight Bearing: Weight Bearing As Tolerated Left Lower Extremity Weight Bearing: Weight Bearing As Tolerated Upper Extremity Weight Bearing Restrictions Right Upper Extremity Weight Bearing: Weight Bearing As Tolerated Left Upper Extremity Weight Bearing: Weight Bearing As Tolerated Position Activity Restriction Sternal Precautions: No Pushing, No Pulling, 10# Lifting Restrictions Sternal Precautions: YES- Pt able to recall 3/3 sternal precautions Other position/activity restrictions: 2L NC, tele Vision/Hearing Subjective General Chart Reviewed: Yes Patient Assessed for Rehabilitation Services: Yes Response To Previous Treatment: Patient with no complaints from previous session. Family / Caregiver Present: Yes () Diagnosis: CAD in [place] artery s/p CABG x3 11/26 Follows Commands: Within Functional Limits General Comment Comments: SPTA wore gloves this Tx Subjective Subjective: Pt seated in chair at entry, agreeable to ambulation and stair trial. Reported this would be her fourth or fifth walk of the day. Pt and stated they never received an exercises booklet. No c/o pain or discomfort today, pt stated her legs feel much stronger today. Patient Stated Goal: Cognition/Orientation Overall Cognitive Status: WFL Overall Orientation Status: Within Functional Limits Objective Transfers Sit to Stand: Supervision Stand to sit: Stand by assistance Comment: x1 Chair x1 Rollator; varied between supervison and SBA for safety. Pt able to maintain sternal precautions, x1 verbal reminder for safety. Ambulation Ambulation: Yes Ambulation 1 Surface 1: Level tile Device 1: No device Assistance 1: Standby assistance Quality of Gait 1: slow aurea, uneven step length, No LOB Quality of Gait Comment 1: decreased aurea, decreased step height and length, required increased time to complete distance. Distance (ft) 1: ~200ft Comments 1: Pt ambulated 200ft to stair trail with no AD to mimic PLOF; no c/o SOB but opted for a seated break prior to attempting stairs. SpO2% at 94% prior to stairs. Ambulation 2 Surface 2: Level tile Device 2: No device Assistance 2: Close supervision Quality of Gait 2: No LOB, uneven step length, slow aurea Quality of Gait Comment 2: decreased aurea, decreased step height and length, required increased time to complete distance. Distance (ft) 2: ~200ft Comments 2: Ambulation after stairs back to her room; did not require any sitting or standing rest breaks. Pt was able to complete sentences without intermittent respiration breaks. Stairs Rails 1: Left Device 1: No device Additional Factors: Non-reciprocal going up, Non-reciprocal going down, Increased time to complete Assistance 1: Contact guard N (more content not included)... [facility] Progress Note Occupational Therapy Facility/Department: T1 Occupational Therapy Treatment NAME: Janessa Baron : 1950 Date of Service: 11/30/2022 Discharge Recommendations: IP Rehab OT Equipment Recommendations Equipment Needed: (DME TBD NEXT LEVEL OF CARE) Assessment REQUIRES OT FOLLOW-UP: Yes Performance deficits / Impairments: Decreased functional mobility , Decreased ADL status, Decreased strength, Decreased safe awareness, Decreased endurance, Decreased balance, Decreased high-level IADLs Assessment: Pt presents with deficits listed above. Currently, Pt requires SBA/ CGA for functional mobility and transfers without the use of . Pt requires MIN A for Grooming and UB ADL due to decreased activity tolerance/ generalized weakness + verbal cues for good follow through with sternal precautions with UB ADLs. Pt requires MIN A for supine <> sit for trunk elevation. Pt requires SBA for LB Dressing with use of AE & MOD A for LB Bathing below thigh level. Noted- Pt with good support system (). Pt would be a good candidate for IP REHAB and would be able to tolerate 3 hours of therapy per day. Recommending IP REHAB in order to achieve highest level of function. Prognosis: Good Decision Making: Low Complexity Patient Diagnosis(es): The primary encounter diagnosis was CAD in [place] artery. A diagnosis of Coronary 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coronary bypass graft of [place] heart, unspecified whether angina present was also pertinent to this visit. has a past medical history of Arthritis, Asthma, Carotid stenosis, Coronary artery disease, Diabetes mellitus (HCC), Hiatal hernia, Hyperlipidemia, and Hypertension. has a past surgical history that includes External ear surgery; Cholecystectomy; Tubal ligation; Oophorectomy; Breast lumpectomy (Bilateral); Cataract extraction (Bilateral); and Cardiac catheterization. Restrictions Restrictions/Precautions Restrictions/Precautions: Fall Risk, General Precautions (Sternal Precautions) Required Braces or Orthoses?: No Lower Extremity Weight Bearing Restrictions Right Lower Extremity Weight Bearing: Weight Bearing As Tolerated Left Lower Extremity Weight Bearing: Weight Bearing As Tolerated Upper Extremity Weight Bearing Restrictions Right Upper Extremity Weight Bearing: Weight Bearing As Tolerated Left Upper Extremity Weight Bearing: Weight Bearing As Tolerated Position Activity Restriction Sternal Precautions: No Pushing, No Pulling, 10# Lifting Restrictions Sternal Precautions: YES- Pt able to recall 2/3 sternal precautions Vision/Hearing Cognition/Orientation Overall Cognitive Status: WFL Overall Orientation Status: Within Functional Limits Subjective Subjective Subjective: Pt seated in recliner with present upon entry- Pt pleasant and agreeable to OT TX General Comments Comments: Pt reported pain 2/10 incision site on chest- nsg informed Patient Stated Goal: Pt stated My goal is to be able to walk without any breaks, I know it will take some time for that! Objective Feeding Assistance Level: Modified independent Skilled Clinical Factors: Beverage mgmt Grooming/Oral Hygiene Assistance Level: Minimal assistance Skilled Clinical Factors: MIN A for brushing teeth, washing hands and face while standing at sink level + educated on recovery positoning to reduce fatigue in standing leaning up against wall d/t LE weakness/ decreased activity tolerance. Upper Extremity Bathing Assistance Level: Minimal assistance Skilled Clinical Factors: MIN A to reach back, sides of body and throughness of breast and abdominal folds due to pain at incision site- Good ability to maintain sternal precautions with UB ADL. Lower Extremity Bathing Assistance Level: Moderate assistance Skilled Clinical Factors: MOD A to wash below thighs- Pt educated on use of long handled sponge for increased functional reach. UE Dressing Assistance Level: Minimal assistance Skilled Clinical Factors: MIN A to doff/ kezia gown with physical assist of threading RUE into sleeve + verbal cues to not lift arms up above shoulder height. LE Dressing Assistance Level: Stand by assist Skilled Clinical Factors: SBA to doff gripper socks using exceptional student education teacher + tactile cues for increased technique & 2/2 trials for instruction/ return demo of sock aid + verbal cues for gentle pull and wiggle up towards body to don socks. Balance Sitting Balance: Modified independent Standing Balance: Contact guard assistance (CGA Progressed to SBA for static standing balance) Standing Balance Time: 2-4 Activity: Grooming & UB ADL standing at sink level Comment: F balance + verbal cues for pursed lip breathing due to decreased activity tolerance + 1 rest periods provided Functional Mobility Activity: Other Assist Level: Stand by assistance Functional Mobility Comments: CGA Progressed to SBA for ambulation from recliner chair to hallway and (more content not included)... [facility] Progress Note ----- ----- Attestation signed by Girma Lazaro MD at 11/30/2022 5:20 PM I have personally performed a face to face diagnostic evaluation on this patient. In addition, I have reviewed the resident's/SALES AGENT TRADING STAMPS/HYDROLOGIC MODELER's care plan and agree with those findings I have performed a substantive portion of the the medical decision making. My findings are as follows: Denies complaints Feels better Blood glucose readings tightly controlled yesterday and she had hypoglycemia before dinner today Vitals: BP (!) 159/76 (BP Location: Left arm, Patient Position: Sitting) Pulse 57 Temp 37.1 ?C (98.7 ?F) (Temporal) Resp 18 Ht 5' 3 (1.6 m) Wt 206 lb 8 oz (93.7 kg) SpO2 (!) 88% PF 96 L/min BMI 36.58 kg/m? Respiratory: No respiratory distress, Cardiovascular System: No lower extremity edema Abdomen: obese A/P Type 2 diabetes with hyperglycemia without long-term insulin use Status post CABG Obesity Body mass index is 34.54 kg/m?. We will try to to lower the doses of insulin Decrease Lantus to 26 units every morning starting tomorrow Decrease Humalog to 6 units before meals with medium dose correction We will plan to discharge patient on metformin 1000 mg twice a day, Jardiance 10 mg daily, and Ozempic. Today she reported to me that her brother had thyroid cancer. She will call her brother and clarify what type of cancer. If its not medullary thyroid carcinoma then we will go ahead and prescribe Ozempic She was counseled about benefits and side effects of SGLT2 inhibitor She was counseled benefits and side effects of GLP-1 receptor agonist I spent 20 minutes with the pt which involved in coordination of care, medical evaluation, review of records, and/or counseling of the pt regarding his/her condition/disease state/prognosis on the date of this note. Old records including available PCP, ED notes and or other specialists notes are reviewed. LABs and/or imaging are reviewed as detailed in the resident's/SALES AGENT TRADING STAMPS/HYDROLOGIC MODELER's note ----- Department of Internal Medicine Division of Endocrinology, Diabetes, & Metabolism Endocrinology Note Patient Name: Janessa Baron : 1950 AGE: 72 y.o. Room/Bed: T1-102/T1-102 A Admission Date: 11/26/2022 Visit Date: 11/30/2022 Reason for Endocrine Consult: post op heart Provider/Team Requesting Consult: cts PCP: KALI BACON Outpt Computer Compositor: No ASSESSMENT: CABGx3 Stress hyperglycemia DM2 with hyperglycemia without longterm insulin use HTN HLP PLAN: Continue lantus 30 units QAM lower humalog 8 TID AC Continue med S.S. humalog TID with meals FSBG to occur AC/HS/PRN Treat hypoglycemia per protocol Change to carb controlled diet ICU goal <180 GMF goal <150 ANTICIPATED ENDOCRINE HOME GOING RECOMMENDATIONS: Optimized for Discharge from Endocrine standpoint: No Home Going Endocrine Rx Recommendations-- Tbd- Will call meds to beds on coverage - would like to stop actos and Glimepiride Keep metformin Start sglt2 and glp1 Consider basal insulin as well Per meds to beds- ozempic and trulicty are both $45/mo Farxiga and arlin are both 45$ /mo Patient agreeable to costs Dm educator to teach glp1 injections Outpt Follow Up-- PCP SUBJECTIVE/HPI: CHIEF COMPLAINT: No chief complaint on file. CABGx3 Type of DM: 2 Onset of DM: over ten years Home DM Medication Regimen: metformin 500mg po bid, glimipiride 4 mg po daily, actos 30 po daily DM control (last A1c/glucose data): Lab Results Component Value Date HGBA1C 8.0 (H) 11/20/2022 BGL-189, 81, 119, 179 Resting in bed States not sleeping well here in the hospital Is eating well all meals Had breakfast at bedside Patient is agreeable to the cost of SGLT2 and GLP-1-each are $45 per month certified adapted physical educator to teach GLP-1 injections However- patient thinks brother had thyroid cancer- she will clarify and get back to us- in regarding to starting a glp1 We are hoping to not have to send home on basal insulin-however this may change Spoke with nursing Review of Systems All other systems reviewed and are negative. ROS negative except for those mentioned in HPI. OBJECTIVE: Vitals: 11/29/22 2352 11/30/22 0400 11/30/22 0537 11/30/22 0728 BP: (!) 163/68 (!) 163/76 BP Location: Right arm Right arm Patient Position: Lying Sitting Pulse: 73 78 Resp: 18 20 18 Temp: 36.4 ?C (97.5 ?F) 37.1 ?C (98.7 ?F) TempSrc: Temporal Temporal SpO2: 93% 92% Weight: 206 lb 8 oz (93.7 kg) Height: PF: Physical Exam Vitals reviewed. Constitutional: Appearance: She is ill-appearing. HENT: Head: Normocephalic. Cardiovascular: Rate and Rhythm: Normal rate. Pulmonary: Effort: Pulmonary effort is normal. Abdominal: General: Bowel sounds are normal. Musculoskeletal: Cervical back (more content not included)... Normal [facility] XR CHEST 1 VIEWon 11-30-2022 XR CHEST 1 VIEW Patient Name: JANESSA BARON : 1950 Exam Date/Time: 11/30/2022 05:21 Procedure: XR CHEST 1 VIEW Ordering Provider: PEDRAZA KYLE Reason For Exam: Shortness of breath PORTABLE CHEST: INDICATION: Shortness of breath COMPARISON: 11/29/2022 Obtained at 0502 hours. A single portable AP radiograph of the chest was obtained. The heart is enlarged. The mediastinal silhouette is normal. There is bibasal atelectasis. A small left effusion is present. There is biapical pleural thickening. Arthritic changes of the spine and shoulders are present. The patient has undergone prior open heart surgery. IMPRESSION: Cardiomegaly. Bibasal atelectasis and small left effusion. Report Dictated on Electronically Signed By: Mendez Welsh Electronically Signed Date/Time: 11/30/2022 5:48 AM EDT Normal [facility] [id number] 11-29-2022 [id number] Advisory Intern following case for Discharge Needs. Left message at [phone] to discuss home care needs [facility] CARECOORDon 11-29-2022 CARECOORD Chest tubes assessed : no air leak, subcutaneous air noted. Chest tubes removed without difficulty and dressing applied. Patient tolerated well. Patient and nurse educated on possible complications to observe for. Will continue to monitor. Normal [facility] ECG 12-LEADon 11-29-2022 ECG 12-LEAD IMPRESSION: Sinus rhythm with frequent PACs Probable LVH with secondary repol abnrm Inferior infarct, old Electronically Signed On 11-29-2022 10:11:59 EDT by Pasquale Palacio [facility] Progress Noteon 11-29-2022 Progress Note Physical Therapy Facility/Department: [facility] Physical Therapy Daily Treatment Note NAME: Janessa Baron : 1950 Date of Service: 11/29/2022 Discharge Recommendations: Home with assist PRN, Home with Home health PT PT Equipment Recommendations Other: tbd Assessment Assessment: Pt progressing towards all goals. Pt demonstrating improved independence and endurance with all functional mobility this date. Pt was able to ambulate further distance and required less assist for all functional mobility. Pt with complaints of fatigue throughout session stating she had been up in recliner since 4AM. Pt and have no concerns of returning home. Recommend discharge home with assist PRN and home health PT. Performance Deficits/Impairments: Decreased functional mobility , Decreased coordination, Decreased endurance, Increased pain, Decreased strength, Decreased posture, Decreased body mechanics, Decreased high-level IADLs Treatment Diagnosis: decreased function and mobility due to sternal precautions Decision Making: Medium Complexity Requires PT Follow-Up: Yes Patient Diagnosis(es): The primary encounter diagnosis was CAD in [place] artery. A diagnosis of Coronary 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coronary bypass graft of [place] heart, unspecified whether angina present was also pertinent to this visit. has a past medical history of Arthritis, Asthma, Carotid stenosis, Coronary artery disease, Diabetes mellitus (HCC), Hiatal hernia, Hyperlipidemia, and Hypertension. has a past surgical history that includes External ear surgery; Cholecystectomy; Tubal ligation; Oophorectomy; Breast lumpectomy (Bilateral); Cataract extraction (Bilateral); and Cardiac catheterization. Restrictions Restrictions/Precautions Restrictions/Precautions: Fall Risk, General Precautions Required Braces or Orthoses?: No Position Activity Restriction Sternal Precautions: No Pushing, No Pulling, 10# Lifting Restrictions Sternal Precautions: YES Other position/activity restrictions: 2L NC, tele Vision/Hearing Vision: Within Functional Limits Hearing: Functional/adequate for paticipation in therapy Subjective General Chart Reviewed: Yes Patient Assessed for Rehabilitation Services: Yes Response To Previous Treatment: Patient with no complaints from previous session. Family / Caregiver Present: Yes () Diagnosis: CAD in [place] artery s/p CABG x3 11/26 Follows Commands: Within Functional Limits Subjective Subjective: Pt seen seated in recliner upon entry into pt room with present. Pt had chest tube removed just prior. RN cleared pt for PT. Pain Assessment Pain Assessment: 0-10 Pain Score: 3 Pain Type: Surgical pain Pain Location: Chest Cognition/Orientation Overall Cognitive Status: WFL Overall Orientation Status: Within Functional Limits Objective Bed mobility Sit to Supine: Minimal assistance Comment: Pt transitioned from sitting EOB to lying supine requiring MIN A for BLE management as pt was able to initiate BLE into bed just required guidance. Transfers Sit to Stand: Contact guard assistance Stand to sit: Contact guard assistance Comment: Pt performed sit to stand from recliner to FWW requiring CGA for safety. Pt maintained sternal precautions with use of pillow. Ambulation Ambulation: Yes Ambulation 1 Surface 1: Level tile Device 1: Rolling walker Assistance 1: Contact guard Quality of Gait Comment 1: decreased aurea, decreased step height and length Distance (ft) 1: 100ft Comments 1: Pt ambulated 100ft with FWW requiring CGA for safety. Pt with minimal complaints of fatigue/SOB and at 94%SpO2 on 2 L NC post ambulation. Balance Posture: Fair Sitting - Static: Good Sitting - Dynamic: Good Standing - Static: Good Standing - Dynamic: Good, - Plan Times per Week: 6-7 Plan Weeks: 3 Current Treatment Recommendations: Strengthening, ROM, Balance Training, Functional Mobility Training, Transfer Training, Stair training, Gait Training Plan Comment: chest PT Safety Safety Devices Safety Devices in Place: Yes Type of Devices: Call light within reach, Left in bed, Nurse notified Restraints Restraints Initially in Place: No Outcomes Score AM-PAC Score AM-PAC Inpatient Mobility Raw Score: 14 Mobility Inpatient CMS G-Code Modifier: CL Goals Encounter Problems Encounter Problems (Active) Cardiac Patient will perform bed mobility with supervision in order to improve independence and prepare for out of bed mobility. (Progressing) Start: 11/27/22 Expected End: 12/18/22 Patient will complete sit to stand transfer with modified independence to none in order to improve safety and prepare for out of bed mobility. (Progressing) Start: 11/27/22 Expected End: 12/18/22 Patient will ambulate 600' feet or ambulate 5 minutes with modified independence with RPE of 14 or lower. (Progressing) Start: 11/27/22 Expected End: 12/18 (more content not included)... [facility] Progress Note ----- ----- Attestation signed by Girma Lazaro MD at 11/29/2022 4:19 PM I have personally performed a face to face diagnostic evaluation on this patient. In addition, I have reviewed the resident's/SALES AGENT TRADING STAMPS/HYDROLOGIC MODELER's care plan and agree with those findings I have performed a substantive portion of the the medical decision making. My findings are as follows: Denies complaints Feels better Blood glucose readings were elevated last night but improving today Patient will get all her insulin regimen today Vitals: BP 137/57 Pulse 69 Temp 36.3 ?C (97.3 ?F) (Temporal) Resp 18 Ht 5' 3 (1.6 m) Wt 210 lb 8 oz (95.5 kg) SpO2 93% PF 96 L/min BMI 37.29 kg/m? Respiratory: No respiratory distress, Cardiovascular System: No lower extremity edema Abdomen: obese A/P Type 2 diabetes with hyperglycemia without long-term insulin use Status post CABG Obesity Body mass index is 34.54 kg/m?. Recommend Lantus 30 units every morning starting tomorrow Humalog 10 units before meals with medium dose correction We will consider having patient on GLP-1 receptor agonist and/or SGLT2 inhibitor on discharge Most likely we will avoid glimepiride and pioglitazone on discharge We will consider also to have patient at least on basal insulin I spent 20 minutes with the pt which involved in coordination of care, medical evaluation, review of records, and/or counseling of the pt regarding his/her condition/disease state/prognosis on the date of this note. Old records including available PCP, ED notes and or other specialists notes are reviewed. LABs and/or imaging are reviewed as detailed in the resident's/SALES AGENT TRADING STAMPS/HYDROLOGIC MODELER's note ----- Department of Internal Medicine Division of Endocrinology, Diabetes, & Metabolism Endocrinology Note Patient Name: Janessa Baron : 1950 AGE: 72 y.o. [facility] Admission Date: 11/26/2022 Visit Date: 11/29/2022 Reason for Endocrine Consult: post op heart Provider/Team Requesting Consult: cts PCP: KALI BACON Outpt Computer Compositor: No ASSESSMENT: CABGx3 Stress hyperglycemia DM2 with hyperglycemia without longterm insulin use HTN HLP PLAN: BG elevated this AM, today will be first full day off insulin gtt. Will watch trends closely Continue lantus 30 units QAM Continue humalog 10 TID AC Continue med S.S. humalog TID with meals FSBG to occur AC/HS/PRN Treat hypoglycemia per protocol Change to carb controlled diet ICU goal <180 GMF goal <150 ANTICIPATED ENDOCRINE HOME GOING RECOMMENDATIONS: Optimized for Discharge from Endocrine standpoint: No Home Going Endocrine Rx Recommendations-- Tbd- Will call meds to beds on coverage - would like to stop actos and Glimepiride Keep metformin Start sglt2 and glp1 Consider basal insulin as well Per meds to beds- ozempic and anujty are both $45/mo Klaudia and arlin are both 45$ /mo Outpt Follow Up-- PCP SUBJECTIVE/HPI: CHIEF COMPLAINT: No chief complaint on file. CABGx3 Type of DM: 2 Onset of DM: over ten years Home DM Medication Regimen: metformin 500mg po bid, glimipiride 4 mg po daily, actos 30 po daily DM control (last A1c/glucose data): Lab Results Component Value Date HGBA1C 8.0 (H) 11/20/2022 BG last 24 hours: 174, 197, 133, 272, 189, 232, 189 Pt bridged off insulin gtt yesterday, today dwain be first whoel day on SubQ injections Resting in bed Awake Vss Tolerating diet Was up to walk already today Spoke to nursing Family at bedside Review of Systems All other systems reviewed and are negative. ROS negative except for those mentioned in HPI. OBJECTIVE: Vitals: 11/29/22 0003 11/29/22 0400 11/29/22 0600 11/29/22 0800 BP: (!) 147/67 116/55 139/71 BP Location: Right arm Right arm Patient Position: Lying Lying Pulse: 67 59 77 Resp: 18 18 Temp: 36.4 ?C (97.5 ?F) 36.8 ?C (98.3 ?F) TempSrc: Temporal Temporal SpO2: 95% 97% Weight: 210 lb 8 oz (95.5 kg) Height: PF: Physical Exam Vitals and nursing note reviewed. Constitutional: Appearance: She is ill-appearing. HENT: Head: Normocephalic and atraumatic. Cardiovascular: Rate and Rhythm: Normal rate. Pulmonary: Effort: Pulmonary effort is normal. Abdominal: Palpations: Abdomen is soft. Skin: General: Skin is warm and dry. Comments: Intact incision Neurological: Mental Status: She is alert and oriented to person, place, and time. Psychiatric: Mood and Affect: Mood normal. Behavior: Behavior is cooperative. 24 hour intake/output: Intake/Output Summary (Last 24 hours) at 11/29/2022 1222 Last data filed at 11/29/2022 0600 Gross per 24 hour Intake 2078 ml Output 1965 ml Net 113 ml Diet: Adult diet Regular; No Added Salt (3-4 gm); 4 carb choices (60 gm/meal) Medications (as per EMR): Ho (more content not included)... Normal [facility] Progress Note PATIENT NAME: Janessa suarez DATE: 11/29/22 HPI: Janessa Baron is a 72 y.o. female referred [...] SMITH-LAD, SVG-OM, SVG-RPDA, L EVH Interval History: 11/29/22, POD#3 VSS overnight - pain well controlled - I&O balanced - CXR wet - Pt is passing gas sitting up in chair eating breakfast - Review of Systems Constitutional: Positive for activity change. Negative for diaphoresis, fatigue and fever. Respiratory: Positive for chest tightness. Negative for cough, shortness of breath and wheezing. Cardiovascular: Positive for chest pain. Negative for palpitations and leg swelling. Gastrointestinal: Negative for abdominal distention, constipation and diarrhea. Endocrine: Negative for cold intolerance and heat intolerance. Skin: Negative for color change, pallor and rash. Psychiatric/Behavioral: Positive for sleep disturbance. Objective: Vitals: BP: 116/55, MAP (mmHg): 72, BP Method: Automatic Heart Rate: 59 Resp: 18 Temp: 36.4 ?C (97.5 ?F), Temp Source: Temporal BMI (Calculated): 37.3 Pacer Wires: Capped CXR: BMP Recent Labs 11/26/22 1043 11/27/22 0017 11/28/22 0011 11/29/22 0003 NA 139 137 132* 132* K 3.1* 3.5 3.4* 3.2* CL 104 106 102 98 CO2 24 22 23 24 BUN 13 11 18* 21* CREATININE 0.72 0.71 0.99 0.94 CALCIUM 9.0 8.2* 8.3* 8.1* MG 2.5* 1.5* 1.6 1.3* PHOS 3.5 -- -- -- CBC: Recent Labs 11/27/22 0017 11/28/22 0011 11/29/22 0003 WBC 8.1 9.1 9.2 HGB 9.7* 9.0* 9.5* HCT 28.8* 26.8* 28.5* PLT 201 188 226 MCV 85.6 86.0 86.5 RDW 15.0* 15.0* 14.6* INR: Recent Labs 11/26/22 1043 11/27/22 0017 11/28/22 0011 INR 1.2* 1.0 1.0 Physical Exam Cardiovascular: Rate and Rhythm: Normal rate and regular rhythm. Heart sounds: Normal heart sounds. No murmur heard. No friction rub. Pulmonary: Effort: Pulmonary effort is normal. Abdominal: General: Abdomen is flat. Bowel sounds are decreased. There is no distension. Skin: General: Skin is warm and dry. Capillary Refill: Capillary refill takes less than 2 seconds. Findings: Bruising and ecchymosis present. Neurological: Mental Status: She is alert. Psychiatric: Behavior: Behavior is cooperative. Assessment: Severe MVCAD s/p CABGx3 HTN HLD DM Asthma Carotid stenosis Hiatal hernia Post operative Pulm Management: Normal Post-operative Course Post-operative Atrial Fibrillation: []Yes [x] No Plan: Patient Status: ICU - asa, zocor, BB - Lasix 40mg BID - toradol for pain - DC chest tubes - DC reyes cath - keep reyes - Amiodarone for post Op A-fib Endo following PT/OT TBD PT recs: TBD Pulmonary hygiene: IS and Acapella GI prophy: PO protonix DVT prophy:TEDs, SCDs, and Heparin SubQ Disposition: Central Line: [x]Yes [] No Arterial Line: []Yes [x] No Reyes: [x]Yes [] No Restraints: []Yes [x] No Patient discussed and plan of day developed from multidisciplinary rounds between Cardiothoracic Surgery (Cardiothoracic Surgeon, DALY) and Critical Care Attending Cardiac Core Medications: ASA and Statin Lopressor EF: 70% Blood Conservation: None noted in post-operative period Barrel Painter: [facility] Progress Note ----- ----- Attestation signed by Isabella Cruz MD at 11/29/2022 4:47 PM I have personally performed a [id number] diagnostic evaluation on this patient on date of service 11/29/22. History, labs, imaging studies, and electronic medical record have been reviewed by me. This note documented by the []roundhouse firer/fireman [x]DALY reflects my history, exam, and medical decision making. I have reviewed and agree with the care plan. Changes were made in the orders as necessary. ROS documentation was reviewed and negative unless otherwise stated in HPI. 11/26/22: CABG x3 ([place]) - belching issue improved. Did not tolerate NGT, started Reglan (she confirmed no significant allergy, allergy documented was reportedly for agitation) -- Would still avoid PAP if able - Continue emphasizing routine postop pulmonary hygiene: Out of bed as able, ambulation as tolerated -- avoiding PAP with burping issue after NIV first night post-op -- avoid over-sedation -- keep her up during the day as much as possible - chest tubes out today - lasix 40 mg IV BID -- was ~ net even fluid balance over last 24h -- aim for improvement UOP -- SCr stable 0.99 -> 0.94 - hgb stable w/o transfusions: 9.0 -> 9.5 ----- PATIENT NAME: Janessa Baron DATE: 11/29/22 HPI: Janessa Baron is a 72 y.o. female referred by Dr. Ramiro for severe multi vessel disease. She has [...] SMITH-LAD, SVG-OM, SVG-RPDA, L EVH Interval History: 11/29/22, POD#3 - PT CO burping and gas pain overnight - VSS on amiodarone gtt - minimal CT output - CXR still edematous - Labs stable Review of Systems Constitutional: Positive for activity change. Negative for diaphoresis, fatigue and fever. Respiratory: Positive for chest tightness. Negative for cough, shortness of breath and wheezing. Cardiovascular: Positive for chest pain. Negative for palpitations and leg swelling. Gastrointestinal: Negative for abdominal distention, constipation and diarrhea. Endocrine: Negative for cold intolerance and heat intolerance. Skin: Negative for color change, pallor and rash. Psychiatric/Behavioral: Positive for sleep disturbance. Objective: Vitals: BP: 116/55, MAP (mmHg): 72, BP Method: Automatic Heart Rate: 59 Resp: 18 Temp: 36.4 ?C (97.5 ?F), Temp Source: Temporal BMI (Calculated): 37.53 CXR: BMP: Recent Labs 11/26/22 1043 11/27/22 0017 11/28/22 0011 11/29/22 0003 NA 139 137 132* 132* K 3.1* 3.5 3.4* 3.2* CL 104 106 102 98 CO2 24 22 23 24 BUN 13 11 18* 21* CREATININE 0.72 0.71 0.99 0.94 CALCIUM 9.0 8.2* 8.3* 8.1* MG 2.5* 1.5* 1.6 1.3* PHOS 3.5 -- -- -- CBC: Recent Labs 11/27/22 0017 11/28/22 0011 11/29/22 0003 WBC 8.1 9.1 9.2 HGB 9.7* 9.0* 9.5* HCT 28.8* 26.8* 28.5* PLT 201 188 226 MCV 85.6 86.0 86.5 RDW 15.0* 15.0* 14.6* INR: Recent Labs 11/26/22 1043 11/27/22 0017 11/28/22 0011 INR 1.2* 1.0 1.0 Physical Exam Cardiovascular: Rate and Rhythm: Normal rate and regular rhythm. Heart sounds: Normal heart sounds. No murmur heard. No friction rub. Pulmonary: Effort: Pulmonary effort is normal. Abdominal: General: Abdomen is flat. Bowel sounds are absent. There is no distension. Skin: General: Skin is warm and dry. Capillary Refill: Capillary refill takes less than 2 seconds. Findings: Bruising and ecchymosis present. Neurological: Mental Status: She is alert. Psychiatric: Behavior: Behavior is cooperative. Assessment: Severe MVCAD s/p CABGx3 HTN HLD DM Asthma Carotid stenosis Hiatal hernia Post operative Pulm Management: Normal Post-operative Course Post-operative Atrial Fibrillation: []Yes [x] No Plan: Patient Status: ICU - asa, zocor, add lopressor - DC amiodarone gtt start PO loading - Lasix BID today - toradol for pain - DC CT - DC reyes cath PT/OT TBD PT recs: TBD Pulmonary hygiene: IS and Acapella GI prophy: PO protonix DVT prophy:TEDs, SCDs, and Heparin SubQ Disposition: Central Line: [x]Yes [] No Arterial Line: []Yes [x] No Reyes: []Yes [x] No Restraints: []Yes [x] No Patient discussed and plan of day developed from multidisciplinary rounds between Cardiothoracic Surgery (Cardiothoracic Surgeon, DALY) and Critical Care Attending Cardiac Core Medications: ASA and Statin EF: 70% Blood Conservation: None noted in post-operative period Barrel Painter: Crys (more content not included)... Normal [facility] XR CHEST 1 VIEWon 11-29-2022 XR CHEST 1 VIEW Patient Name: JANESSA BARON : 1950 [facility]#: [id number] Exam Date/Time: 11/29/2022 05:19 Procedure: XR CHEST 1 VIEW Ordering Provider: PEDRAZA KYLE Reason For Exam: Shortness of breath CHEST - PORTABLE: CLINICAL INDICATION: Respiratory distress for follow up TECHNIQUE: Portable AP COMPARISON: One day ago FINDINGS: Life support devices: Right central venous sheath is present along with mediastinal drain and left chest tube Heart/Mediastinum: Unchanged Lungs/Pleura: No new consolidation is noted. Left hemidiaphragm is partially obscured. The right costophrenic angle is sharp but the left is obscured. IMPRESSION: Surgical changes with probable atelectasis at the left lung base. No new consolidation. Report Dictated on Electronically Signed By: Preston Dueñas Electronically Signed Date/Time: 11/29/2022 7:14 AM EDT [facility] XR Chest Single viewon 11-29 Surgical changes wit h probable atelectasis at the left lung base. No new consolidation. Report Dictated on Electronically Signed By: Preston Dueñas Electronically Signed Date/Time: 11/29/2022 7:14 AM EDT [facility] Patient Name: JANESSA BARON : 1950 Exam Date/Time: 11/29/2022 05:19 Procedure: XR CHEST 1 VIEW Ordering Provider: PEDRAZA KYLE Reason For Exam: Shortness of breath CHEST - PORTABLE: CLINICAL INDICATION: Respiratory distress for follow up TECHNIQUE: Portable AP COMPARISON: One day ago FINDINGS: Life support devices: Right central venous sheath is present along with mediastinal drain and left chest tube Heart/Mediastinum: Unchanged Lungs/Pleura: No new consolidation is noted. Left hemidiaphragm is partially obscured. The right costophrenic angle is sharp but the left is obscured. [facility] Preston Dueñas MD - 11/29/2022 Patient Name: JANESSA BARON : 1950 Exam Date/Time: 11/29/2022 05:19 Procedure: XR CHEST 1 VIEW Ordering Provider: PEDRAZA KYLE Reason For Exam: Shortness of breath CHEST - PORTABLE: CLINICAL INDICATION: Respiratory distress for follow up TECHNIQUE: Portable AP COMPARISON: One day ago FINDINGS: Life support devices: Right central venous sheath is present along with mediastinal drain and left chest tube Heart/Mediastinum: Unchanged Lungs/Pleura: No new consolidation is noted. Left hemidiaphragm is partially obscured. The right costophrenic angle is sharp but the left is obscured. IMPRESSION: Surgical changes with probable atelectasis at the left lung base. No new consolidation. Report Dictated on Electronically Signed By: Preston Dueñas Electronically Signed Date/Time: 11/29/2022 7:14 AM EDT [facility] Study observation (narrative) [facility] XR Chest Single viewOrdered By: Preston Dueñas on 11-29-2022 [facility] Work Phone: Progress Noteon 11-28-2022 Progress Note ----- ----- Attestation signed by Isabella Cruz MD at 11/28/2022 5:23 PM I have personally performed a [id number] diagnostic evaluation on this patient on date of service 11/28/22. History, labs, imaging studies, and electronic medical record have been reviewed by me. This note documented by the []roundhouse firer/fireman [x]DALY reflects my history, exam, and medical decision making. I have reviewed and agree with the care plan. Changes were made in the orders as necessary. ROS documentation was reviewed and negative unless otherwise stated in HPI. Still having issues with burping near continuously despite being off PAP and also being out of bed to the chair again today. Persistent gastric gas bubble on CXR: Attempted NGT placement to suction but patient was unable to tolerate it being in for very long. Started IV Reglan after patient confirmed with RN that her documented allergy was agitation and she was willing to give it a try in this setting. Her allergy list also includes erythromycin, suspect he may have had issues with gastric motility in the past. Continue to encourage her to be out of bed and moving around as much as possible, as this will be the best way to get this to resolve. Otherwise doing well, no further need for PAP and would avoid it for now if able. ----- PATIENT NAME: Janessa Baron DATE: 11/28/22 HPI: Janessa Baron is a 72 y.o. female referred [...] SMITH-LAD, SVG-OM, SVG-RPDA, L EVH Interval History: 11/28/22, POD#2 - Pt went into A-fib overnight started on amiodarone - pain well controlled - VSS - still requires oxygen - CXR is wet with air ileus pt is burping and passing gas - reyes in place - incisions dry and intact - Pt up in chair - labs stable Review of Systems Constitutional: Positive for activity change. Negative for diaphoresis, fatigue and fever. Respiratory: Positive for chest tightness. Negative for cough, shortness of breath and wheezing. Cardiovascular: Positive for chest pain. Negative for palpitations and leg swelling. Gastrointestinal: Negative for abdominal distention, constipation and diarrhea. Endocrine: Negative for cold intolerance and heat intolerance. Skin: Negative for color change, pallor and rash. Psychiatric/Behavioral: Positive for sleep disturbance. Objective: Vitals: BP: 110/60, MAP (mmHg): 75, BP Method: Automatic Heart Rate: 63 Resp: 20 Temp: 36.5 ?C (97.7 ?F), Temp Source: Temporal BMI (Calculated): 37.53 Pacer Wires: Capped CXR: BMP: Recent Labs 11/26/22 1043 11/27/22 0017 11/28/22 0011 NA 139 137 132* K 3.1* 3.5 3.4* CL 104 106 102 CO2 24 22 23 BUN 13 11 18* CREATININE 0.72 0.71 0.99 CALCIUM 9.0 8.2* 8.3* MG 2.5* 1.5* 1.6 PHOS 3.5 -- -- CBC: Recent Labs 11/26/22 1446 11/26/22 2045 11/27/22 0017 11/28/22 0011 WBC 11.2* -- 8.1 9.1 HGB 9.9 9.1* 10.2 9.7* 9.0* HCT 28.0* -- 28.8* 26.8* PLT 203 -- 201 188 MCV 85.8 -- 85.6 86.0 RDW 14.7* -- 15.0* 15.0* INR: Recent Labs 11/26/22 1043 11/27/22 0017 11/28/22 0011 INR 1.2* 1.0 1.0 Physical Exam Cardiovascular: Rate and Rhythm: Normal rate and regular rhythm. Heart sounds: Normal heart sounds. No murmur heard. No friction rub. Pulmonary: Effort: Pulmonary effort is normal. Abdominal: General: Abdomen is flat. Bowel sounds are absent. There is no distension. Skin: General: Skin is warm and dry. Capillary Refill: Capillary refill takes less than 2 seconds. Findings: Bruising and ecchymosis present. Neurological: Mental Status: She is alert. Psychiatric: Behavior: Behavior is cooperative. Assessment: Severe MVCAD s/p CABGx3 HTN HLD DM Asthma Carotid stenosis Hiatal hernia Post operative Pulm Management: Normal Post-operative Course Post-operative Atrial Fibrillation: []Yes [x] No Plan: Patient Status: ICU - asa, zocor, add lopressor - diuresis today lasix 40 BID then DC reyes cath - toradol for pain - keep CT one more day - keep reyes - Amiodarone for post Op A-fib PT/OT TBD PT recs: TBD Pulmonary hygiene: IS and Acapella GI prophy: PO protonix DVT prophy:TEDs, SCDs, and Heparin SubQ Disposition: Central Line: [x]Yes [] No Arterial Line: [x]Yes [] No Reyes: [x]Yes [] No Restraints: []Yes [x] No Patient discussed and plan of day develope (more content not included)... [facility] Progress Note ----- ----- Attestation signed by Girma Lazaro MD at 11/28/2022 4:16 PM I have personally performed a face to face diagnostic evaluation on this patient. In addition, I have reviewed the resident's/SALES AGENT TRADING STAMPS/HYDROLOGIC MODELER's care plan and agree with those findings I have performed a substantive portion of the the medical decision making. My findings are as follows: Denies complaints Blood glucose readings are at target but patient is on insulin drip. Rate has been between 3 units to 12 units/h She is off pressors Vitals: BP 110/60 Pulse 63 Temp 36.5 ?C (97.7 ?F) (Temporal) Resp 20 Ht 5' 3 (1.6 m) Wt 211 lb 12.8 oz (96.1 kg) SpO2 91% PF 96 L/min BMI 37.52 kg/m? Respiratory: No respiratory distress, Cardiovascular System: No lower extremity edema Abdomen: obese A/P Type 2 diabetes with hyperglycemia without long-term insulin use Status post CABG Obesity Body mass index is 34.54 kg/m?. Lantus 40 units once, discontinue insulin drip after 1 hour of administering Lantus Lantus 30 units every morning starting tomorrow Humalog 10 units before meals with medium dose correction We will consider having patient on GLP-1 receptor agonist and/or SGLT2 inhibitor on discharge Most likely we will avoid glimepiride and pioglitazone on discharge We will consider also to have patient at least on basal insulin I spent 20 minutes with the pt which involved in coordination of care, medical evaluation, review of records, and/or counseling of the pt regarding his/her condition/disease state/prognosis on the date of this note. Old records including available PCP, ED notes and or other specialists notes are reviewed. LABs and/or imaging are reviewed as detailed in the resident's/SALES AGENT TRADING STAMPS/HYDROLOGIC MODELER's note ----- Department of Internal Medicine Division of Endocrinology, Diabetes, & Metabolism Endocrinology Note Patient Name: Janessa Baron : 1950 AGE: 72 y.o. [facility] Admission Date: 11/26/2022 Visit Date: 11/28/2022 Reason for Endocrine Consult: post op heart Provider/Team Requesting Consult: cts PCP: KALI BACON Outpt Computer Compositor: No ASSESSMENT: CABGx3 Stress hyperglycemia DM2 with hyperglycemia without longterm insulin use HTN HLP PLAN: Insulin needs have been increased since diet was started and while on amio gtt Bridge off insulin gtt today and watch trends closely Start lantus 40 then discontinue insulin drip per protocol one hour after dose Start lantus 30 QAM tomorrow Start humalog 10 TID AC Start med S.S. humalog TID with meals FSBG to occur AC/HS/PRN Treat hypoglycemia per protocol Change to carb controlled diet ICU goal <180 GMF goal <150 POCT q 1 ANTICIPATED ENDOCRINE HOME GOING RECOMMENDATIONS: Optimized for Discharge from Endocrine standpoint: No Home Going Endocrine Rx Recommendations-- Tbd- Will call meds to beds on coverage - would like to stop actos and Glimepiride Keep metformin Start sglt2 and glp1 Consider basal insulin as well Per meds to beds- ozempic and trulicty are both $45/mo Farxiga and jardiance are both 45$ /mo Outpt Follow Up-- PCP SUBJECTIVE/HPI: CHIEF COMPLAINT: No chief complaint on file. CABGx3 Type of DM: 2 Onset of DM: over ten years Home DM Medication Regimen: metformin 500mg po bid, glimipiride 4 mg po daily, actos 30 po daily DM control (last A1c/glucose data): Lab Results Component Value Date HGBA1C 8.0 (H) 11/20/2022 BG last 24 hours: 157, 152, 174, 197, 179 Resting in bed Extubated, 02 nc Awake Vss Tolerating diet Was up to walk already today Spoke to nursing Family at bedside Current gtt rate 12u/hr Review of Systems All other systems reviewed and are negative. ROS negative except for those mentioned in HPI. OBJECTIVE: Vitals: 11/28/22 0515 11/28/22 0525 11/28/22 0530 11/28/22 0753 BP: 116/66 110/60 BP Location: Patient Position: Pulse: (!) 144 (!) 139 63 Resp: 20 Temp: TempSrc: SpO2: 91% Weight: 211 lb 12.8 oz (96.1 kg) Height: PF: Physical Exam Vitals and nursing note reviewed. Constitutional: Appearance: She is ill-appearing. HENT: Head: Normocephalic and atraumatic. Cardiovascular: Rate and Rhythm: Normal rate. Pulmonary: Effort: Pulmonary effort is normal. Abdominal: Palpations: Abdomen is soft. Skin: General: Skin is warm and dry. Comments: Intact incision Neurological: Mental Status: She is alert and oriented to person, place, and time. Psychiatric: Mood and Affect: Mood normal. Behavior: Behavior is cooperative. 24 hour intake/output: Intake/Output Summary (Last 24 hours) at 11/28/2022 1116 Last data filed at 11/28/2022 0415 Gross per 24 hour Intake -- Output 789 ml Net -789 ml Diet: Adult diet Regular; No Added Salt (3-4 gm); 4 (more content not included)... Normal [facility] XR ABDOMEN 1 VIEWon 11-29-19 23 XR ABDOMEN 1 VIEW Patient Name: JANESSA BARON : 1950 Exam Date/Time: 11/28/2022 16:16 Procedure: XR ABDOMEN 1 VIEW Ordering Provider: CRUZ ASHLEY Reason For Exam: NGT placement SINGLE VIEW ABDOMEN CLINICAL INDICATION: NGT placement TECHNIQUE: Single view abdomen x-ray COMPARISON: None FINDINGS: Left side of the abdomen is visualized. Incompletely visualized right side of the abdomen and pelvis. NG tube tip is in the mid stomach. Nonspecific bowel gas pattern. IMPRESSION: 1. NG tube tip in the mid stomach. Report Dictated on Electronically Signed By: Sebastián Beckwith Electronically Signed Date/Time: 11/28/2022 5:24 PM EDT [facility] XR Abdomen Single viewon 1. NG tube tip in the mid stomach. Report Dictated on Electronically Signed By: Sebastián Beckwith Electronically Signed Date/Time: 11/28/2022 5:24 PM EDT [facility] Patient Name: JANESSA BARON : 1950 Exam Date/Time: 11/28/2022 16:16 Procedure: XR ABDOMEN 1 VIEW Ordering Provider: CRUZ ASHLEY Reason For Exam: NGT placement SINGLE VIEW ABDOMEN CLINICAL INDICATION: NGT placement TECHNIQUE: Single view abdomen x-ray COMPARISON: None FINDINGS: Left side of the abdomen is visualized. Incompletely visualized right side of the abdomen and pelvis. NG tube tip is in the mid stomach. Nonspecific bowel gas pattern. [facility] Sebastián Beckwith MD - 11/28/2022 Patient Name: JANESSA BARON : 1950 Exam Date/Time: 11/28/2022 16:16 Procedure: XR ABDOMEN 1 VIEW Ordering Provider: CRUZ ASHLEY Reason For Exam: NGT placement SINGLE VIEW ABDOMEN CLINICAL INDICATION: NGT placement TECHNIQUE: Single view abdomen x-ray COMPARISON: None FINDINGS: Left side of the abdomen is visualized. Incompletely visualized right side of the abdomen and pelvis. NG tube tip is in the mid stomach. Nonspecific bowel gas pattern. IMPRESSION: 1. NG tube tip in the mid stomach. Report Dictated on Electronically Signed By: Sebastián Beckwith Electronically Signed Date/Time: 11/28/2022 5:24 PM EDT [facility] Radiology Study observation (narrative) [facility] XR Abdomen Single viewOrdere d By: Sebastián Beckwith on 11-28-2022 [facility] Work Phone: XR CHEST 1 VIEWon 11-28-2022 XR CHEST 1 VIEW Patient Name: JANESSA BARON : 1950 Exam Date/Time: 11/28/2022 05:19 Procedure: XR CHEST 1 VIEW Ordering Provider: PEDRAZA KYLE Reason For Exam: Shortness of breath Clinical History: Shortness of breath Comparison: 11/27/2022 Technique: Single AP radiograph of the chest. Findings: Right IJ [place] catheter has been removed with residual right IJ sheath in place. Median sternotomy wires are present. Mediastinal drain and left basilar chest tube are present with no sizable pneumothorax. Limited inspiration of the lungs with diffuse interstitial coarsening and basilar patchy opacities. Cardiomegaly is unchanged. IMPRESSION: Impression: Limited inspiration with probable small bilateral pleural effusions and bibasilar atelectasis. Report Dictated on Electronically Signed By: Gautam Delvalle Electronically Signed Date/Time: 11/28/2022 8:09 AM EDT Normal [facility] XR Chest Single viewon 11-28 Impression: Limited inspiration with probable small bilateral pleural effusions and bibasilar atelectasis. Report Dictated on Electronically Signed By: Gautam Delvalle Electronically Signed Date/Time: 11/28/2022 8:09 AM EDT [facility] Patient Name: JANESSA BARON : 1950 Exam Date/Time: 11/28/2022 05:19 Procedure: XR CHEST 1 VIEW Ordering Provider: PEDRAZA KYLE Reason For Exam: Shortness of breath Clinical History: Shortness of breath Comparison: 11/27/2022 Technique: Single AP radiograph of the chest. Findings: Right IJ [place] catheter has been removed with residual right IJ sheath in place. Median sternotomy wires are present. Mediastinal drain and left basilar chest tube are present with no sizable pneumothorax. Limited inspiration of the lungs with diffuse interstitial coarsening and basilar patchy opacities. Cardiomegaly is unchanged. [facility] Gautam Delvalle MD - 11/28/2022 Patient Name: JANESSA BARON : 1950 [facility]#: [id number] Exam Date/Time: 11/28/2022 05:19 Procedure: XR CHEST 1 VIEW Ordering Provider: PEDRAZA KYLE Reason For Exam: Shortness of breath Clinical History: Shortness of breath Comparison: 11/27/2022 Technique: Single AP radiograph of the chest. Findings: Right IJ [place] catheter has been removed with residual right IJ sheath in place. Median sternotomy wires are present. Mediastinal drain and left basilar chest tube are present with no sizable pneumothorax. Limited inspiration of the lungs with diffuse interstitial coarsening and basilar patchy opacities. Cardiomegaly is unchanged. IMPRESSION: Impression: Limited inspiration with probable small bilateral pleural effusions and bibasilar atelectasis. Report Dictated on Electronically Signed By: Gautam Delvalle Electronically Signed Date/Time: 11/28/2022 8:09 AM EDT [facility] Radiology Study observation (narrative) [facility] XR Chest Single viewOrdered By: Gautam Delvalle on 11-28-2022 [facility] Work Phone: [facility] 11-27-2022 [facility] Care Managment Initi al Assessment Date: 11/27/2022 Patient Name: Janessa Baron : 1950 Patient Information Source of Information: Patient Cognition/Language: WFL - Within Functional Limits Permission given to speak with patient safety representative/caregiver as indicated: Yes Confirmation of Payer with patient/family: Yes Payer Name: [facility] [facility] : No Confirmation of Primary Care Physician: Confirmed PCP Name: Dr. Bacon Seen in last 2 years?: Yes Primary Caregiver: Self If assistance needed, confirmed caregiver ready, willing and able to care for patient at discharge: Yes Confirmed with: Spouse- Ross Living Arrangements Current Residence: House Number of Floors 1 Number of Entry Steps: 2 Bed/Bath Levels: Facility: Facility Name: Plan to Return: Yes Lives with: Spouse/significant other Support Systems: Spouse/significant other Activities of Daily Living Ambulation: Independent Bathing/Dressing: Independent Elimination/Continence/To ileting: Independent Feeding: Independent Who Assists with Activities of Daily Living: Instrumental Activities of Daily Living Prescription Coverage: Yes Pharmacy Used: [facility] [place] Medication Management: Independent Transportation/Shopping: Assistance Provider Transportation/Shopping Assistance Provider Name: Spouse does most of the driving. Transportation Mode: Car Needs Assistance with Transportation at Discharge: No Meal Preparation: Independent Laundry/Cleaning: Independent Finances/Bill Paying: Independent Communication: Independent Types of Care Services/Equipment Utilized Care Services: (N/A) Dialysis Type: NA Durable Medical Equipment: Patient's Goal/Discharge Plan Patient expects to be discharged to: Home Discharge Planning Actions: Continue to follow Patient's Choice Rights and [employer] and Collaborative Relationships Disclosed as Indicated for Post-Acute Care: Yes Interdisciplinary Team Engagement: Social Work Referral for: Additional Information: POD #1 s/p CABG X 3, on an insulin gtt, Endocrinology consulted and PT/OT evaluation pending. Discharge plan home with Spouse and [facility] Care pending evaluations. Merlene Jay RN [facility] ECG 12-LEADon 11-27-2022 ECG 12-LEAD IMPRESSION: Sinus rhythm Ventricular premature complex Inferior infarct, old Electronically Signed On 11-27-2022 10:36:44 EDT by Jackson Marc [facility] Progress Noteon 11-27-2022 Progress Note Occupational Therapy Facility/Department: [facility] Occupational Therapy Initial Evaluation NAME: Janessa Baron : 1950 Date of Service: 11/27/2022 Discharge Recommendations: Continue to assess pending progress, IP Rehab, 24 hour supervision or assist, Home with Home health OT Assessment Performance deficits / Impairments: Decreased functional mobility , Decreased ADL status, Decreased strength, Decreased safe awareness, Decreased endurance, Decreased balance, Decreased high-level IADLs Assessment: 72 yo female admitted s/p CABGx3, sternal precautions. Hx of HTN, HLD, asthma, and hiatal hernia. Home with , indep with ADL at baseline and was not using device for mob SEO ASSISTANT. Home is single level with walk in shower with GBs, will need shower chair. Pt up in chair on arrival, reports chest and buttock discomfort, RN aware. Pt has multiple IVs, chest tube and reyes. Demos CGA to stand from chair, she is aware of her sternal precautions. Stood ~60 seconds, reported increasing incisional discomfort and returned to sitting. Pt able to cross LEs into fig four while seated to avoid bending with LB dressing but does require assist d/t weakness and lines. is home 24/7 and very supportive, currently pt is most appropriate for home with 24/7 assist and home therapies. Prognosis: Good Decision Making: Low Complexity REQUIRES OT FOLLOW-UP: Yes Patient Diagnosis(es): The primary encounter diagnosis was CAD in [place] artery. A diagnosis of Coronary 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coronary bypass graft of [place] heart, unspecified whether angina present was also pertinent to this visit. has a past medical history of Arthritis, Asthma, Carotid stenosis, Coronary artery disease, Diabetes mellitus (HCC), Hiatal hernia, Hyperlipidemia, and Hypertension. has a past surgical history that includes External ear surgery; Cholecystectomy; Tubal ligation; Oophorectomy; Breast lumpectomy (Bilateral); Cataract extraction (Bilateral); and Cardiac catheterization. Restrictions Restrictions/Precautions Restrictions/Precautions: Fall Risk, General Precautions, Weight Bearing Required Braces or Orthoses?: No Position Activity Restriction Sternal Precautions: No Pushing, No Pulling, 10# Lifting Restrictions Sternal Precautions: YES Vision/Hearing Cognition/Orientation Overall Cognitive Status: WFL Overall Orientation Status: Within Functional Limits Subjective General Chart Reviewed: Yes Patient Assessed for Rehabilitation Services: Yes Family / Caregiver Present: Yes Social/Functional History Social/Functional History Lives With: Spouse Type of Home: House Home Layout: One level Home Access: Stairs to enter with rails Entrance Stairs - Number of Steps: 2 Entrance Stairs - Rails: None Home Equipment: (none) Receives Help From: Family ADL Assistance: Independent Homemaking Assistance: Independent Homemaking Responsibilities: Yes Ambulation Assistance: Independent With device?: No Transfer Assistance: Independent Active Head Packager: Yes Mode of Transportation: Car Occupation: Retired Objective Gross Assessment: Yes AROM: Generally decreased, functional Coordination: Generally decreased, functional Tone: Normal ADL LE Dressing: Minimal assistance Transfers Sit to stand: Contact guard assistance Stand to sit: Contact guard assistance Sensation Overall Sensation Status: Intact Plan Times per Week: 5-7 Plan Weeks: 4 Current Treatment Recommendations: Balance Training, Functional Mobility Training, Endurance Training, Gait Training, Pain Management, Safety Education & Training, Patient/Caregiver Education & Training, Equipment Evaluation, Education, & procurement, Home Management Training, Self-Care / ADL Safety Safety Devices in place: Yes Type of devices: All fall risk precautions in place, Patient at risk for falls, Call light within reach, Left in chair, Nurse notified Outcomes Score AM-PAC Score AM-PAC Inpatient Daily Activity Raw Score: 18 ADL Inpatient CMS G-Code Modifier: CK Goals Encounter Problems Encounter Problems (Active) Balance Patient will maintain dynamic standing balance for 5 minutes with modified independence in order to demonstrate decreased risk of falling. Start: 11/27/22 Expected End: 12/25/22 Dressings Lower Extremities Patient will dress lower body with AE supervision Start: 11/27/22 Expected End: 12/25/22 Grooming Patient will complete grooming standing at sink in FWW Start: 11/27/22 Expected End: 12/25/22 Instrumental Activities of Daily Living Patient will demo use of energy conservation/work simplification techs during ADL without cues Start: 11/27/22 Expected End: 12/25/22 Safety Patient will adhere to sternal precautions during all functional mobility and ADLs in order to demonstrate improved understanding and promote healing post op. Start: 11/27/22 Expected End: 12/25/22 (more content not included)... Normal [facility] Progress Note Physical Therapy Facility/Department: [facility] Physical Therapy Initial Evaluation NAME: Janessa Baron : 1950 Date of Service: 11/27/2022 Discharge Recommendations: Continue to assess pending progress (IPR versuse home with home health.) PT Equipment Recommendations Other: tbd Assessment Assessment: Janessa Baron was admitted on 11/26/22 with CAD in [place] artery. She underwent CABG x 3. She now has sternal precautions. She lives with her in a one story home with 3 steps to enter, no railings. She exercises regularly, does not use a device at baseline. She ambulated into the reagan for the first time today. She became nauseous in standing, but did not vomit. She was taught about sternal precautions, and the involvement of PT during her hospital stay. She is currently at SNF level, but likely to progress and be able to go home upon discharge, with assist. Will continue to monitor progress and make recommendations. Performance Deficits/Impairments: Decreased functional mobility , Decreased high-level IADLs, Decreased coordination, Decreased endurance, Increased pain, Decreased strength, Decreased posture, Decreased body mechanics Treatment Diagnosis: decreased function and mobility due to sternal precautions Decision Making: Medium Complexity Barriers to Learning: pain Requires PT Follow-Up: Yes Barriers to Learning: pain Activity Tolerance Activity Tolerance: Patient limited by fatigue, Patient limited by pain, Patient limited by endurance Patient Diagnosis(es): The primary encounter diagnosis was CAD in [place] artery. A diagnosis of Coronary 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coronary bypass graft of [place] heart, unspecified whether angina present was also pertinent to this visit. has a past medical history of Arthritis, Asthma, Carotid stenosis, Coronary artery disease, Diabetes mellitus (HCC), Hiatal hernia, Hyperlipidemia, and Hypertension. has a past surgical history that includes External ear surgery; Cholecystectomy; Tubal ligation; Oophorectomy; Breast lumpectomy (Bilateral); Cataract extraction (Bilateral); and Cardiac catheterization. Restrictions Restrictions/Precautions Restrictions/Precautions: Fall Risk, General Precautions, Weight Bearing Required Braces or Orthoses?: No Position Activity Restriction Sternal Precautions: No Pushing, No Pulling, 10# Lifting Restrictions Sternal Precautions: YES Vision/Hearing Hearing: Functional/adequate for paticipation in therapy Cognition/Orientation Overall Cognitive Status: WFL Overall Orientation Status: Within Functional Limits Subjective General Chart Reviewed: Yes Patient Assessed for Rehabilitation Services: Yes Family / Caregiver Present: Yes () Follows Commands: Within Functional Limits General Comment Comments: Pt is up in the chair. Got up at 6am. Subjective Subjective: Janessa is willing to ambulate in the halls with PT. Social/Functional History Social/Functional History Lives With: Spouse Type of Home: House Home Layout: One level Home Access: Stairs to enter with rails Entrance Stairs - Number of Steps: 2 Entrance Stairs - Rails: None Home Equipment: (none) Receives Help From: Family (mostly independent prior to admission.) ADL Assistance: Independent Homemaking Assistance: Independent Homemaking Responsibilities: Yes Ambulation Assistance: Independent (She was becoming short of breath after ambulating for ~ 30 minutes.) With device?: No Transfer Assistance: Independent Active Head Packager: Yes Mode of Transportation: Car Occupation: Retired Objective Observation/Palpation Posture: Fair Observation: She was lethargic, but worked well with PT. AROM RLE (degrees) RLE AROM: WFL AROM LLE (degrees) LLE AROM : WFL Strength RLE Comment: 11/18 Strength LLE Comment: 4 Tone RLE RLE Tone: Normotonic Tone LLE LLE Tone: Normotonic Sensation Overall Sensation Status: Intact Bed mobility Scooting: Minimal assistance Transfers Sit to Stand: Moderate Assistance Stand to sit: Moderate Assistance Bed to Chair: Moderate assistance Comment: verbal cues given for hand placement, sternal precautions Ambulation Ambulation: Yes Ambulation 1 Surface 1: Level tile Device 1: (NEZZI) Assistance 1: Moderate assistance Quality of Gait 1: slow aurea, uneven step length, postural sway Quality of Gait Comment 1: Pt became nauseous while ambulating (still in room). She stood in front of the trash can but only had phlegm to spit out. Continued ambulation afterward. Distance (ft) 1: 35' x 2 Comments 1: Keeps her eyes closed while ambulating unless cued to open them. Balance Posture: Fair Sitting - Static: Good Sitting - Dynamic: Good Standing - Static: Fair Standing - Dynamic: Fair, - Comments: She required reminders about her steernal precautions. Other exercises Other exercises 1: deep breathing x 10 and coughing x 3 (more content not included)... Normal [facility] Progress Note ----- ----- Attestation signed by Girma Lazaro MD at 11/27/2022 3:31 PM I have personally performed a face to face diagnostic evaluation on this patient. In addition, I have reviewed the resident's/SALES AGENT TRADING STAMPS/HYDROLOGIC MODELER's care plan and agree with those findings I have performed a substantive portion of the the medical decision making. My findings are as follows: Extubated Denies complaints Insulin drip 3 units/h Vitals: BP 121/52 (BP Location: Right arm, Patient Position: Lying) Pulse 81 Temp 37.1 ?C (98.8 ?F) (Temporal) Resp 25 Ht 5' 3 (1.6 m) Wt 206 lb 9.1 oz (93.7 kg) SpO2 92% PF 96 L/min BMI 36.59 kg/m? Constitutional: intubated Respiratory: No respiratory distress, Cardiovascular System: No lower extremity edema Abdomen: obese A/P Type 2 diabetes with hyperglycemia without long-term insulin use Status post CABG Obesity Body mass index is 34.54 kg/m?. Continue insulin drip BG Q 1 hour per protocol Will switch insulin drip to sc insulin in 48 hrs We will consider having patient on GLP-1 receptor agonist and/or SGLT2 inhibitor on discharge Most likely we will avoid glimepiride and pioglitazone on discharge We will consider also to have patient at least on basal insulin I spent 20 minutes with the pt which involved in coordination of care, medical evaluation, review of records, and/or counseling of the pt regarding his/her condition/disease state/prognosis on the date of this note. Old records including available PCP, ED notes and or other specialists notes are reviewed. LABs and/or imaging are reviewed as detailed in the resident's/SALES AGENT TRADING STAMPS/HYDROLOGIC MODELER's note ----- Department of Internal Medicine Division of Endocrinology, Diabetes, & Metabolism Endocrinology Note Patient Name: Janessa Baron : 1950 AGE: 72 y.o. [facility] Admission Date: 11/26/2022 Visit Date: 11/27/2022 Reason for Endocrine Consult: post op heart Provider/Team Requesting Consult: cts PCP: KALI BACON Outpt Computer Compositor: No ASSESSMENT: Cabgx3 Stress hyperglycemia dm2 with hyperglycemia without longterm insulin use Htn/hld PLAN: Keep on insulin gtt per protocol ICU goal <180 GMF goal <150 POCT q 1 Hypoglycemia per protocol Carb controlled diet - when tolerates ANTICIPATED ENDOCRINE HOME GOING RECOMMENDATIONS: Optimized for Discharge from Endocrine standpoint: No Home Going Endocrine Rx Recommendations-- Tbd- Will call meds to beds on coverage - would like to stop actos and glimepiride Keep metformin Start sglt2 and glp1 Per meds to beds- ozempic and trulicty are both $45/mo Farxiga and jardiance are both 45$ /mo Outpt Follow Up-- PCP SUBJECTIVE/HPI: CHIEF COMPLAINT: No chief complaint on file. CABGx3 Per chart has hx of DM BGL 109-122- 159 Resting in bed Extubated, 02 nc Awake Vss Insulin gtt at 3/hr Tolerating liquids Confirmed home meds Discussed changing home regimen on DC Spoke to nursing Family at bedside Type of DM: 2 Onset of DM: over ten years Home DM Medication Regimen: metformin 500mg po bid, glimipiride 4 mg po daily, actos 30 po daily DM control (last A1c/glucose data): Lab Results Component Value Date HGBA1C 8.0 (H) 11/20/2022 Review of Systems All other systems reviewed and are negative. ROS negative except for those mentioned in HPI. OBJECTIVE: Vitals: 11/27/22 0400 11/27/22 0556 11/27/22 0735 11/27/22 0821 BP: BP Location: Patient Position: Pulse: 81 83 Resp: (!) 29 (!) 27 Temp: 36.9 ?C (98.4 ?F) TempSrc: Core SpO2: 93% 94% Weight: 206 lb 9.1 oz (93.7 kg) Height: 5' 3 (1.6 m) PF: 96 L/min Physical Exam Vitals and nursing note reviewed. Constitutional: Appearance: She is ill-appearing. HENT: Head: Normocephalic and atraumatic. Cardiovascular: Rate and Rhythm: Normal rate. Pulmonary: Effort: Pulmonary effort is normal. Abdominal: Palpations: Abdomen is soft. Skin: General: Skin is warm and dry. Comments: Intact incision Neurological: Mental Status: She is alert and oriented to person, place, and time. Psychiatric: Mood and Affect: Mood normal. Behavior: Behavior is cooperative. 24 hour intake/output: Intake/Output Summary (Last 24 hours) at 11/27/2022 0859 Last data filed at 11/27/2022 0700 Gross per 24 hour Intake 3857.43 ml Output 2967 ml Net 890.43 ml Diet: NPO diet Medications (as per EMR): HomeMeds: @MEDHMEDS@ Scheduled Meds:acetaminophen, 1,000 mg, Oral, q8h aspirin, 81 mg, Oral, Daily chlorhexidine, 15 mL, Mouth/Throat, BID heparin, 5,000 Units, SubCUTAneous, BID ipratropium-albuterol, 3 mL, Nebulization, q6h ketorolac, 30 mg, IntraVENous, 4 times per day Lidocaine, 1 patch, TransDERmal, Daily mometasone-formoterol, 2 puff, Inhalation, BID mupirocin, , Natalee (more content not included)... Normal [facility] Progress Note ----- ----- Attestation signed by Isabella Cruz MD at 11/27/2022 5:36 PM I have personally performed a sfez-lj-vagm diagnostic evaluation on this patient on date of service 11/27/22. History, labs, imaging studies, and electronic medical record have been reviewed by me. This note documented by the []roundhouse firer/fireman [x]DALY reflects my history, exam, and medical decision making. I have reviewed and agree with the care plan. Changes were made in the orders as necessary. ROS documentation was reviewed and negative unless otherwise stated in HPI. Required PAP overnight, shallow respirations/poor inspiratory effort and decreased mobility. Hopefully will improve being OOB to chair. Has significant c/o gas/belching, suspect may be 2/2 PAP overnight. Ok to trial nasal pillows tonight if preferable. ABG if somnolent. Emphasis on pulm hygiene w/IS hourly while awake, OOB as able ----- PATIENT NAME: Janessa Baron DATE: 11/27/22 HPI: Janessa Baron is a 72 y.o. female referred [...] SMITH-LAD, SVG-OM, SVG-RPDA, L EVH Interval History: 11/27/22, POD#1 - PT has done well overnight - VSS HTN on and off cardene - Hemodynamics stable - Positive 1.8L - CT output 708 - She has been on and off of PAP therapy that she wears at home. HGB 9.3 - Creat stable - pain poorly controlled was placed on toradol and take tramadol at home PRN chronic pain. PAP: (25-38)/(9-20) 33/17 CVP: [4 mmHg-234 mmHg] 234 mmHg CO: [3.92 L/min-5.39 L/min] 5.39 L/min CI: [2.05 L/min/m2-2.82 L/min/m2] 2.82 L/min/m2 Review of Systems Constitutional: Positive for activity change. Negative for diaphoresis, fatigue and fever. Respiratory: Positive for chest tightness. Negative for cough, shortness of breath and wheezing. Cardiovascular: Positive for chest pain. Negative for palpitations and leg swelling. Gastrointestinal: Negative for abdominal distention, constipation and diarrhea. Endocrine: Negative for cold intolerance and heat intolerance. Skin: Negative for color change, pallor and rash. Psychiatric/Behavioral: Positive for sleep disturbance. Objective: Vitals: BP: (!) 118/44, MAP (mmHg): 67, BP Method: Arterial line Heart Rate: 81 Resp: (!) 29 Temp: 36.9 ?C (98.4 ?F), Temp Source: Core BMI (Calculated): 36.6 Pacer Wires: VVI back up CXR: BMP: Recent Labs 11/26/22 1043 11/27/22 0017 NA 139 137 K 3.1* 3.5 CL 104 106 CO2 24 22 BUN 13 11 CREATININE 0.72 0.71 CALCIUM 9.0 8.2* MG 2.5* 1.5* PHOS 3.5 -- CBC: Recent Labs 11/26/22 1043 11/26/22 1045 11/26/22 1446 11/26/22 2045 11/27/22 0017 WBC 11.6* -- 11.2* -- 8.1 HGB 8.4* < > 9.9 9.1* 10.2 9.7* HCT 25.3* -- 28.0* -- 28.8* PLT 165 -- 203 -- 201 MCV 85.8 -- 85.8 -- 85.6 RDW 14.7* -- 14.7* -- 15.0* < > = values in this interval not displayed. INR: Recent Labs 11/26/22 1043 11/27/22 0017 INR 1.2* 1.0 Physical Exam Cardiovascular: Rate and Rhythm: Normal rate and regular rhythm. Heart sounds: Normal heart sounds. No murmur heard. No friction rub. Pulmonary: Effort: Pulmonary effort is normal. Abdominal: General: Abdomen is flat. Bowel sounds are absent. There is no distension. Skin: General: Skin is warm and dry. Capillary Refill: Capillary refill takes less than 2 seconds. Findings: Bruising and ecchymosis present. Neurological: Mental Status: She is alert. Psychiatric: Behavior: Behavior is cooperative. Assessment: Severe MVCAD s/p CABGx3 HTN HLD DM Asthma Carotid stenosis Hiatal hernia Post operative Pulm Management: Normal Post-operative Course Post-operative Atrial Fibrillation: []Yes [x] No Plan: Patient Status: ICU - DC swan - DC Art line - UOOB chair - restart breathing treatments - asa, zocor - PAP therapy HS - toradol for pain - DC CT suction - keep reyes - pt high risk for A-fib post op - start BB and diuresis tomorrow PT/OT TBD PT recs: TBD Pulmonary hygiene: IS and Acapella GI prophy: PO protonix DVT prophy:TEDs, SCDs, and Heparin SubQ Disposition: Central Line: [x]Yes [] No Arterial Line: [x]Yes [] No Reyes: [x]Yes [] No Restraints: []Yes [x] No Patient discussed and plan of day developed from multidisciplinary rounds between Cardiothoracic Surgery (Cardiothoracic Surgeon, DALY) and Critical Care Attending (more content not included)... Normal [facility] XR CHEST 1 VIEWon 11-27-2022 XR CHEST 1 VIEW [facility] 1950 [id number] Exam Date/Time: 11/27/2022 05:20 Procedure: XR CHEST 1 VIEW Ordering Provider: PEDRAZA KYLE Reason For Exam: Shortness of breath INDICATION: 72-year-old; shortness of breath. VIEWS: Chest portable-1 image COMPARISON: 11/26/2022 at 13:15 TIME: 5:20 on 11/27/2022 FINDINGS: Interval removal of the endotracheal tube and enteric tube. The right IJ approach [place]-Rubi catheter remains with tip overlying the right main pulmonary artery. A left chest tube mediastinal drain remain. Cardiac monitoring wires and leads are present. Median sternotomy wires and clips are present. The trachea is midline. The cardiac silhouette is enlarged. Possible left pleural effusion versus atelectasis. Mild pulmonary vascular congestion. Low lung volumes. IMPRESSION: 1. Cardiomegaly with pulmonary vascular congestion with small left pleural effusion, not significantly changed. 2. Support devices, as above. Report Dictated on Electronically Signed By: Monica Fuller Electronically Signed Date/Time: 11/27/2022 5:28 AM EDT Normal [facility] XR Chest Single viewon 11-27 1. Cardiomegaly with pulmonary vascular congestion with small left pleural effusion, not significantly changed. 2. Support devices, as above. Report Dictated on Electronically Signed By: Monica Fuller Electronically Signed Date/Time: 11/27/2022 5:28 AM EDT [facility] Name[facility]ES[facility] 1950 [id number] Exam Date/Time: 11/27/2022 05:20 Procedure: XR CHEST 1 VIEW Ordering Provider: PEDRAZA KYLE Reason For Exam: Shortness of breath INDICATION: 72-year-old; shortness of breath. VIEWS: Chest portable-1 image COMPARISON: 11/26/2022 at 13:15 TIME: 5:20 on 11/27/2022 FINDINGS: Interval removal of the endotracheal tube and enteric tube. The right IJ approach [place]-Rubi catheter remains with tip overlying the right main pulmonary artery. A left chest tube mediastinal drain remain. Cardiac monitoring wires and leads are present. Median sternotomy wires and clips are present. The trachea is midline. The cardiac silhouette is enlarged. Possible left pleural effusion versus atelectasis. Mild pulmonary vascular congestion. Low lung volumes. [facility] Monica Fuller MD - 11/27/2022 Patient Name: [facility]ANES[facility] BAR[facility] 1950 [id number] Exam Date/Time: 11/27/2022 05:20 Procedure: XR CHEST 1 VIEW Ordering Provider: PEDRAZA KYLE Reason For Exam: Shortness of breath INDICATION: 72-year-old; shortness of breath. VIEWS: Chest portable-1 image COMPARISON: 11/26/2022 at 13:15 TIME: 5:20 on 11/27/2022 FINDINGS: Interval removal of the endotracheal tube and enteric tube. The right IJ approach [place]-Rubi catheter remains with tip overlying the right main pulmonary artery. A left chest tube mediastinal drain remain. Cardiac monitoring wires and leads are present. Median sternotomy wires and clips are present. The trachea is midline. The cardiac silhouette is enlarged. Possible left pleural effusion versus atelectasis. Mild pulmonary vascular congestion. Low lung volumes. IMPRESSION: 1. Cardiomegaly with pulmonary vascular congestion with small left pleural effusion, not significantly changed. 2. Support devices, as above. Report Dictated on Electronically Signed By: Monica Fuller Electronically Signed Date/Time: 11/27/2022 5:28 AM EDT [facility] Radiology Study observation (narrative) [facility] XR Chest Single viewOrdered By: Monica Fuller on 11-27-2022 [employer] Work Phone: [phone] 11-26-2022 [id number] Advisory Intern following case for Discharge Needs. Normal [facility] Consulton 11-26-2022 Consult ----- ----- Attestation signed by Girma Lazaro MD at 11/26/2022 4:53 PM I have personally performed a face to face diagnostic evaluation on this patient. In addition, I have reviewed the resident's/SALES AGENT TRADING STAMPS/HYDROLOGIC MODELER's care plan and agree with those findings I have performed a substantive portion of the the medical decision making. My findings are as follows: S/p CABG On insulin drip 2 units/hr Patient has type 2 diabetes on metformin, glimepiride, and Actos Lab Results Component Value Date HGBA1C 8.0 (H) 11/20/2022 Vitals: BP (!) 118/44 (BP Location: Left arm, Patient Position: Sitting) Pulse 81 Temp 36.7 ?C (98.1 ?F) (Core) Resp (!) 29 Ht 5' 3 (1.6 m) Wt 195 lb (88.5 kg) SpO2 98% BMI 34.54 kg/m? Constitutional: intubated Respiratory: No respiratory distress, Cardiovascular System: No lower extremity edema Abdomen: obese A/P Type 2 diabetes with hyperglycemia without long-term insulin use Status post CABG Obesity Body mass index is 34.54 kg/m?. Continue insulin drip BG Q 1 hour per protocol Will switch insulin drip to sc insulin in 48 hrs We will consider having patient on GLP-1 receptor agonist and/or SGLT2 inhibitor on discharge Most likely we will avoid glimepiride and pioglitazone on discharge We will consider also to have patient at least on basal insulin I spent 25 minutes with the pt which involved in coordination of care, medical evaluation, review of records, and/or counseling of the pt regarding his/her condition/disease state/prognosis on the date of this note. Old records including available PCP, ED notes and or other specialists notes are reviewed. LABs and/or imaging are reviewed as detailed in the resident's/SALES AGENT TRADING STAMPS/HYDROLOGIC MODELER's note ----- Department of Internal Medicine Division of Endocrinology, Diabetes, & Metabolism Endocrinology Note Patient Name: Janessa Baron : 1950 AGE: 72 y.o. [facility] Admission Date: 11/26/2022 Visit Date: 11/26/2022 Reason for Endocrine Consult: post op heart Provider/Team Requesting Consult: cts PCP: KALI BACON Outpt Computer Compositor: No ASSESSMENT: cabgx3 dm2 with hyperglycemia without intermediate teacher insulin use Htn/hld PLAN: Keep on insulin gtt per protocol ICU goal <180 GMF goal <150 POCT q 1 Hypoglycemia per protocol Carb controlled diet - when tolerates ANTICIPATED ENDOCRINE HOME GOING RECOMMENDATIONS: Optimized for Discharge from Endocrine standpoint: No Home Going Endocrine Rx Recommendations-- tbd Outpt Follow Up-- PCP SUBJECTIVE/HPI: CHIEF COMPLAINT: No chief complaint on file. CABGx3 Per chart has hx of DM BGL 178-119-161 Resting in bed Intubated sedated Ct in place On propofol and levo Ins gtt at 2/hr Spoke with nursing and CTS Spoke to at bedside Was able to confirm some medications- will clarify more when extubated Type of DM: 2 Onset of DM: over ten years Home DM Medication Regimen: metformin 500mg po bid, glimipiride 4 mg po daily, actos 30 po daily DM control (last A1c/glucose data): Lab Results Component Value Date HGBA1C 8.0 (H) 11/20/2022 Review of Systems All other systems reviewed and are negative. ROS negative except for those mentioned in HPI. OBJECTIVE: Vitals: 11/26/22 0556 11/26/22 0914 11/26/22 1130 11/26/22 1138 BP: (!) 147/61 Pulse: 71 65 Resp: 16 15 Temp: 36.2 ?C (97.1 ?F) 35.3 ?C (95.5 ?F) TempSrc: Temporal Core SpO2: 97% 100% Weight: 195 lb (88.5 kg) 195 lb (88.5 kg) 195 lb (88.5 kg) Height: 5' 3 (1.6 m) 5' 3 (1.6 m) 5' 3 (1.6 m) Physical Exam Vitals and nursing note reviewed. Constitutional: Interventions: She is sedated and intubated. HENT: Head: Normocephalic and atraumatic. Cardiovascular: Rate and Rhythm: Normal rate. Pulmonary: Effort: Pulmonary effort is normal. She is intubated. Abdominal: Palpations: Abdomen is soft. Skin: General: Skin is warm and dry. Comments: Intact incision 24 hour intake/output: Intake/Output Summary (Last 24 hours) at 11/26/2022 1206 Last data filed at 11/26/2022 1132 Gross per 24 hour Intake 1663.43 ml Output 1305 ml Net 358.43 ml Diet: NPO diet Medications (as per EMR): HomeMeds: @MEDHMEDS@ Scheduled Meds:acetaminophen, 1,000 mg, Oral, q8h chlorhexidine, 15 mL, Mouth/Throat, BID ipratropium-albuterol, 3 mL, Nebulization, Q4H while awake Lidocaine, 1 patch, TransDERmal, Daily mupirocin, , Nasal, BID [START ON 11/27/2022] pantoprazole, 40 mg, IntraVENous, Daily polyethylene glycol (PEG) 3350, 17 g, Oral, Daily sugammadex, 4 mg/kg, IntraVENous, Once vancomycin, 1,500 mg, IntraVENous, q12h Continuous Infusions:EPINEPHrine, 0.01-0.2 mcg/kg/min insulin regular, 1-50 Units/hr, Last Rate: 2 Units/hr (11/26/22 1200) lactated ringers, 250 mL niCARdipine, 3- (more content not included)... Normal [facility] Consult ----- ----- Attestation signed by Isabella Cruz MD at 11/26/2022 7:30 PM I have personally performed a hnqy-pg-wewr diagnostic evaluation on this patient on date of service 11/26/22. History, labs, imaging studies, and electronic medical record have been reviewed by me. This note documented by the []roundhouse firer/fireman [x]DALY reflects my history, exam, and medical decision making. I have reviewed and agree with the care plan. Changes were made in the orders as necessary. ROS documentation was reviewed and negative unless otherwise stated in HPI. 72-year-old female with a history of diabetes, asthma, hypertension, hyperlipidemia, BMI 35.5. No history of RENE. Worked up for multivessel coronary disease and underwent CABG x3 today. Postop hemodynamic goals as below. No significant vasoactive drips required postop. Extubated without issues with in goal window. She does have some intermittent tachypnea, ABG was within normal limits. If continues rapid shallow breathing and has frequent desats overnight, recommend empiric AutoPap and check ABG in the morning Critical care time spent reviewing labs/films, examining patient, collaborating with other physicians but excluding procedures for life threatening organ failure is 40 minutes. ----- [facility]: Critical Care Consultation Note Date: 11/26/22 PATIENT NAME: Janessa Baron : 1950 (72 y.o.) DATE OF ADMISSION: 11/26/2022 5:17 AM Reason for Consult: Critical Care & Vent Management HPI: Janessa Baron is a 72 y.o. female referred by Dr. Ruboi for severe multi vessel disease. She has [...] OP setting. Plan was made for CABG. Patient consented and surgery was scheduled for 11/26/22. Patient arrived to the unit, intubated and sedated. Surgical hand off completed below. Review of Systems Unable to perform ROS: Intubated Surgical Hand-Off Arrival Time in HLU: 1122 Surgery: Dr. Sethi- CABGx3, SMITH-LAD, SVG-OM, SVG-RPDA, L EVH Complications/Pertinent Events: None Gtts OR report Epinephrine: Norepinephrine: Phenylephrine: Vasopressin: Nitroglycerin: Nitroprusside: Dobutamine: Milrinone: Propofol: 75mcg/kg/min Insulin: Amicar: 29 Current gtts upon arrival Epinephrine: Norepinephrine: 0.03mcg/kg/min Phenylephrine: Vasopressin: Nitroglycerin: Nitroprusside: Dobutamine: Milrinone: Propofol: 60mcg/kg/min Insulin: Amicar: 29 Devices: Epicardial wires: yes [] no [x] Type: Ventricular [] Atrial [] Mode: IABP: yes [] no [x] Mode: LVAD: yes [] no [x] Speed: Equipment: Back up controller yes [] no [x] Other: Blood Transfusions Intra Op: yes [] no [x] pRBC: FFP: Cryo: PLT: CellSaver: 240 Medications given en route: Last Paralytic: 1036 Vital Signs including Cardiac Numbers (if indicated) at Conclusion of Hand-off OR HLU CO 4.07 3.92 CI 2.1 2.05 CVP 13 9 SVR 768 734 PAP 36/20 Additional Interventions/Misc during Handoff Allergies: Cefprozil, Erythromycin, Gatifloxacin, Lincomycin, Metoclopramide, Morphine, Amoxicillin, Bactrim [sulfamethoxazole-trimeth oprim], Clavulanic acid, Dayquil severe + vapocool [cjlpaspofbiyk-zr-vt-apap ], Dextromethorphan, Doxylamine, Iodinated contrast media, Pseudoephedrine, Statins, Doxycycline, Sulfamethoxazole, and Trimethoprim Past Medical History: has a past medical history of Arthritis, Asthma, Carotid stenosis, Coronary artery disease, Diabetes mellitus (HCC), Hiatal hernia, Hyperlipidemia, and Hypertension. Past Surgical History: has a past surgical history that includes External ear surgery; Cholecystectomy; Tubal ligation; Oophorectomy; Breast lumpectomy (Bilateral); Cataract extraction (Bilateral); and Cardiac catheterization. Social History: reports that she has never smoked. She has never used smokeless tobacco. She reports that she does not drink alcohol and does not use drugs. Family History: family history includes Colon cancer in her sister; Diabetes in her sister; Heart disease in her mother; Stroke in her mother; Thyroid cancer in her brother. Medications: Prior to Admission medications Medication Sig Start Date End Date Taki (more content not included)... Normal [facility] Progress Noteon 11-26-2022 Progress Note Pt extubated per ord er w/o complications. Placed on 6 liters nasal cannula. Normal [facility] XR CHEST 1 VIEWon 11-26-2022 XR CHEST 1 VIEW [facility] 1950 [id number] Exam Date/Time: 11/26/2022 13:20 Procedure: XR CHEST 1 VIEW Ordering Provider: PEDRAZA KYLE Reason For Exam: Post op open heart surgery CLINICAL INFORMATION: Status post open heart surgery. CHEST X-RAY, PORTABLE, 1315: An AP portable view is compared to the prior examination of 11/20/2022. The patient is rotated to the left. There are new median sternotomy wires consistent with interval open heart surgery. There is an endotracheal tube with the tip appearing to be within the ehsan. There is an endogastric tube with the tip beneath the inferior margin of the radiograph but beneath the hemidiaphragm. There are mediastinal and left-sided chest tubes. There is a right internal jugular central venous catheter with the tip in the right pulmonary artery. The cardiac silhouette is enlarged. There is pulmonary vascular congestion and left pleural effusion. No right pleural effusion or pneumothorax is seen. IMPRESSION: 1. Status post interval open heart surgery. 2. Malposition of endotracheal tube as described. 2 cm of retraction is suggested. 3. Pulmonary vascular congestion and left pleural effusion consistent with congestive heart failure/fluid overload. 4. No evidence of pneumothorax. Report Dictated on Electronically Signed By: Jack Nails Electronically Signed Date/Time: 11/26/2022 1:53 PM EDT [facility] XR Chest Single viewon 11-26 1. Status post inter derick open heart surgery. 2. Malposition of endotracheal tube as described. 2 cm of retraction is suggested. 3. Pulmonary vascular congestion and left pleural effusion consistent with congestive heart failure/fluid overload. 4. No evidence of pneumothorax. Report Dictated on Electronically Signed By: Jack Nails Electronically Signed Date/Time: 11/26/2022 1:53 PM EDT [facility] Patient Name: JANESSA BARON : 1950 [facility]#: [id number] Exam Date/Time: 11/26/2022 13:20 Procedure: XR CHEST 1 VIEW Ordering Provider: PEDRAZA KYLE Reason For Exam: Post op open heart surgery CLINICAL INFORMATION: Status post open heart surgery. CHEST X-RAY, PORTABLE, 1315: An AP portable view is compared to the prior examination of 11/20/2022. The patient is rotated to the left. There are new median sternotomy wires consistent with interval open heart surgery. There is an endotracheal tube with the tip appearing to be within the ehsan. There is an endogastric tube with the tip beneath the inferior margin of the radiograph but beneath the hemidiaphragm. There are mediastinal and left-sided chest tubes. There is a right internal jugular central venous catheter with the tip in the right pulmonary artery. The cardiac silhouette is enlarged. There is pulmonary vascular congestion and left pleural effusion. No right pleural effusion or pneumothorax is seen. [facility] Jack Nails MD - 11/26/2022 Patient Name: JANESSA BARON : 1950 [facility]#: [id number] Exam Date/Time: 11/26/2022 13:20 Procedure: XR CHEST 1 VIEW Ordering Provider: PEDRAZA KYLE Reason For Exam: Post op open heart surgery CLINICAL INFORMATION: Status post open heart surgery. CHEST X-RAY, PORTABLE, 1315: An AP portable view is compared to the prior examination of 11/20/2022. The patient is rotated to the left. There are new median sternotomy wires consistent with interval open heart surgery. There is an endotracheal tube with the tip appearing to be within the ehsan. There is an endogastric tube with the tip beneath the inferior margin of the radiograph but beneath the hemidiaphragm. There are mediastinal and left-sided chest tubes. There is a right internal jugular central venous catheter with the tip in the right pulmonary artery. The cardiac silhouette is enlarged. There is pulmonary vascular congestion and left pleural effusion. No right pleural effusion or pneumothorax is seen. IMPRESSION: 1. Status post interval open heart surgery. 2. Malposition of endotracheal tube as described. 2 cm of retraction is suggested. 3. Pulmonary vascular congestion and left pleural effusion consistent with congestive heart failure/fluid overload. 4. No evidence of pneumothorax. Report Dictated on Electronically Signed By: Jack Nails Electronically Signed Date/Time: 11/26/2022 1:53 PM EDT [facility] Radiology Study observation (narrative) [facility] XR Chest Single viewOrdered By: Jack Nails on 11-26-2022 [employer] [facility] Work Phone: Laboratory - Drug toxicology Ordered By: Dr. Cohen on 11-25-2022 Amphetamines Ql (U) Negative <1000 ng/mL [facility] Benzodiazepines Ql (U) Negative < 200 ng/mL [facility] Cannabinoids Screen Ql (U) Negative < 50 ng/mL [facility] Cocaine Ql (U) Negative < 300 ng/mL [facility] Opiates Ql (U) Negative < 300 ng/mL [facility] No Panel InformationOrdered By: Dr. Cohen on 11-25-2022 MDMA (Ecstasy) Screen Negative < 500 ng/mL [facility] Miscellaneous Test See comment [facility] Comment on above: [id number] 6+OXYCODONE-B UND (ng/mL) DRUG RESULT SCREEN CUTOFF____ Amphetamines,Urine Negative ng/mL 1000 Amphetamine test includes Amphetamine and Methamphetamine.Barbiturates Negative ng/mL 200Benzodiazepines Negative ng/mL 200Cannabinoid Negative ng/mL 20Cocaine (Metab) Negative ng/mL 300Opiates Negative ng/mL 300 Opiates test includes Codeine, Morphine, Hydromorphone, Hydrocodone. Oxycodone/Oxymorphone,Urine Negative ng/mL 300 Test includes Oxydodone and Oxymorphone. TESTING PERFORMED AT [facility]. ORIGINAL REPORT ON FILE IN LAB CONTAINS ADDITIONAL TEST SITE INFORMATION. Urine Barbiturates Screen Negative < 200 ng/mL [facility] Urine Drug Screen Comment [facility] Comment on above: CONFIRMATORY TESTING FOR ALL POSITIVE URINE DRUG SCREENRESULTS WILL ONLY BE SENT OUT UPON PHYSICIAN ORDER. VISTA Urine Drug Screen methods provide only preliminaryanalytical test results. A more specific alternate chemicalmethod must be used in order to obtain a confirmedanalytical result. Gas chromatography/mass spectrometery(GC/MS) is the preferred confirmatory method. Clinicalconsideration and professional judgement should be appliedto any drug of abuse test result, particularly whenpreliminary positive results are used. URINE TCA TESTING MUST BE ORDERED SEPARATELY. USE TESTMNEMONIC: [facility] Urine Methadone Screen Negative < 300 ng/mL [facility] Urine phencyclidine (PCP) de tectionOrdered By: Dr. Cohen on 11-25-2022 Phencyclidine Ql (U) Negative < 25 ng/mL [facility] XR CHEST 2 VIEWSon XR CHEST 2 VIEWS [facility] Name[facility] 1950 [id number] Exam Date/Time: 11/20/2022 16:05 Procedure: XR CHEST 2 VIEWS Ordering Provider: PEDRAZA KYLE Reason For Exam: PRE-OP MAJOR SURGERY PA AND LATERAL CHEST CLINICAL INDICATION: Preoperative evaluation TECHNIQUE: PA and Lateral chest COMPARISON: none IMPRESSION: FINDINGS AND IMPRESSION: SUPPORT DEVICES: None OSSEOUS STRUCTURES: Degenerative changes in the thoracic spine. HEART AND MEDIASTINUM: The cardiomediastinal silhouette appears unchanged from the prior exam, including prior median sternotomy. LUNGS AND PLEURA: The lungs are clear. No sizable pleural effusion. Report Dictated on Electronically Signed By: Cody lCarke Electronically Signed Date/Time: 11/22/2022 2:35 PM EDT [facility] ECG 12-LEADon 11-21-2022 ECG 12-LEAD IMPRESSION: Sinus rhythm PVCs Borderline left axis deviation Electronically Signed On 11-21-2022 10:51:23 EDT by Carrington George [facility] [id number] 11-20-2022 [id number] Patient states she h as started two new medications for her heart and they are causing her to fill sick and vomit. Patient was instructed to call surgeons office to see what her options are for her problems taking new medications. Patient and verbalized understanding. Ekg reviewed by guera RODRIGUEZ. Instructions were given for nasal ointement, body wash and mouth wash for day of surgery. Patient was also given instructions regarding holding lisinopril 1 day prior to surgery and metformin 48 hours piror to surgery patient and voiced understanding [facility] PREPROCINSon 11-20-2022 PREPROCINS Medication List Accurate as of November 20, 2022 2:50 PM. Always use your most recent med list. albuterol 0.63 MG/3ML nebulizer solution Notes to patient: NO MEDICATION DAY OF SURGERY Alum Hydroxide-Mag Trisilicate 80-14.2 MG chewable tablet Notes to patient: NO MEDICATION DAY OF SURGERY amLODIPine 5 MG tablet Commonly known as: Norvasc Notes to patient: NO MEDICATION DAY OF SURGERY ascorbic acid 500 MG tablet Commonly known as: Vitamin C Notes to patient: NO MEDICATION DAY OF SURGERY budesonide-formoterol 160-4.5 MCG/ACT inhaler Commonly known as: Symbicort Notes to patient: NO MEDICATION DAY OF SURGERY calcium 500 MG tablet Notes to patient: NO MEDICATION DAY OF SURGERY cetirizine 10 MG tablet Commonly known as: ZyrTEC Notes to patient: NO MEDICATION DAY OF SURGERY chlorhexidine 0.12 % solution Commonly known as: Peridex Use 15 mL in the mouth or throat See administration instructions for 2 doses. Swish and spit the night before surgery and AM of surgery. coenzyme Q-10 75 MG capsule Notes to patient: NO MEDICATION DAY OF SURGERY GAVISCON PO Notes to patient: NO MEDICATION DAY OF SURGERY glimepiride 4 MG tablet Commonly known as: Amaryl Notes to patient: NO MEDICATION DAY OF SURGERY lisinopril-hydroCHLOROthi azide 20-12.5 MG tablet Notes to patient: HOLD 1 DAY BEFORE SURGERY Melatonin 5 MG capsule Notes to patient: NO MEDICATION DAY OF SURGERY metFORMIN 500 MG tablet Commonly known as: Glucophage Notes to patient: HOLD 48 HOURS PRIOR TO SURGERY metoprolol succinate XL 50 MG 24 hr tablet Commonly known as: Toprol-XL Notes to patient: NO MEDICATION DAY OF SURGERY montelukast 10 MG tablet Commonly known as: Singulair Notes to patient: NO MEDICATION DAY OF SURGERY MULTI-VITAMIN DAILY PO Notes to patient: NO MEDICATION DAY OF SURGERY mupirocin 2 % ointment Commonly known as: Bactroban Apply topically See administration instructions for 2 doses. Apply to inside of nostrils night before surgery and AM of surgery. omega-3 1000 MG capsule Commonly known as: Fish Oil Notes to patient: NO MEDICATION DAY OF SURGERY omeprazole [address] capsule Commonly known as: PriLOSEC Notes to patient: NO MEDICATION DAY OF SURGERY pioglitazone 30 MG tablet Commonly known as: Actos Notes to patient: NO MEDICATION DAY OF SURGERY simvastatin 40 MG tablet Commonly known as: Zocor Notes to patient: NO MEDICATION DAY OF SURGERY traMADol 50 MG tablet Commonly known as: Ultram Notes to patient: NO MEDICATION DAY OF SURGERY Do not eat after midnight. You may have clear liquids up to two hours prior to your surgery. Take the following medications with water NO MEDICATION DAY OF SURGERY Follow instructions on use of wipes, nasal ointment and mouth rinse as instructed. After using wipes, no makeup,lotion,powder or body spray. No hair products. Remove all jewelry and leave it at home. Do not wear contacts day of surgery. Special Instructions HOLD METFORMIN 48 HOURS PRIOR TO SURGERY LAST DOSE OF LISINOPRIL 11/24/22 (HOLD ONE DAY PRIOR TO SURGERY) If you have specific questions, please call your surgeon. You may use the [employer] parking located at the main entrance on [address] [place] [address] and take the H elevator to the first floor for same day surgery. Take a left after exiting the elevator and check in at the desk. Or- You may use the parking in the Main deck. Take the level one bridge to the H building and follow the signs for same day surgery. Check in at the desk. Additional Instructions: [facility] on 11-19-2022 36 Surg proc orders sean brady. Meds sent to [facility] in [place]. Elsie Pedraza APRN - YUL[facility] 11/19/22 [facility] 36on 11-18-2022 36 Patient is scheduled for a CABG and CHERI on 11/26/22 @ 7 am. PAT is 11/20/22 @ 2pm. Please place surg proc orders. Please e-scribe nasal ointment and mouth rinse. Thank you. [facility] Office Visiton 11-18-2022 Follow-up visit [id number] Janessa Baron 1950 F Date Provider Department Center 11/18/2022 [facility] None Family History Problem Relation Age of Onset Stroke Mother Heart disease Mother Colon cancer Sister Diabetes Sister Thyroid cancer Brother Family Status - Relation Status Age at Mother Father Sister Brother Level of Service:[id number] HI OFFICE/OUTPATIENT [facility] 60-74 MINUTES Reason for Visit and Comments: New Patient [542] Normal [facility] Progress Noteon 11-18-2022 Progress Note Pre op teaching done with patient and . Instructed to hold NSAIDS 7 days prior to surgery, hold Lisinopril 1 day prior to surgery, hold Metformin 2 days before surgery, and not to take any medications day of surgery. Pharmacy confirmed. All questions answered. Normal [facility] Progress Note error Normal [facility] Progress Note [facility] CARDIOVASCULAR & THORACIC SURGERY [address] [facility] [address] Dept: [phone] Dept Loc: [phone] Visit type: New Reason for Visit: Coronary [...] MD Cardiothoracic Surgery History of Present Illness Janessa Baron is a 72 y.o. female referred [...] every morning (before breakfast)., Disp: , Rfl: lisinopril-hydroCHLOROthi azide 20-12.5 MG tablet, Take 1 tablet by [...] montelukast (Singulair) 10 MG tablet, Take 1 table (more content not included)... Normal [facility] Absolute lymphocyte countOrd ered By: Dr. Rubio on 11-04-2022 Lymphocytes Auto (Unsp spec) [#/Vol] 3.41 10*3/uL 0.83-4.51 [facility] Basophil percentageOrdered B y: Dr. Rubio on 11-04-2022 Basophils/100 WBC (Bld) 0.2 % 0-1 [facility] Chloride [Moles/Vol] 97 mmol/L 98-107 [facility] Eosinophils/100 WBC (Bld) 0.1 % 0-5 [facility] Glucose [Mass/Vol] 218 mg/dL 74-106 [facility] Comment on above: Glucose result great er than or equal to 200 mg/dLsuggests DIABETES MELLITUS per A.D.A. criteria. Neutrophils (Bld) [#/Vol] 9.1 10*3/uL 2.0-7.7 [facility] Neutrophils/100 WBC (Bld) 67.6 % 47-70 [facility] Potassium [Moles/Vol] 4.1 mmol/L 3.5-5.1 [facility] Sodium [Moles/Vol] 135 mmol/L 136-145 [facility] WBC (Bld) [#/Vol] 13.4 10*3/uL 4.4-11.0 [facility] Blood erythrocytes count (nu mber/volume)Ordered By: Dr. Rubio on 11-04-2022 RBC (Bld) [#/Vol] 4.42 10*6/uL 4.2-5.4 [facility] Blood hemoglobin measurement (mass/volume)Ordered By: Dr. Rubio on 11-04-2022 Hemoglobin (Bld) [Mass/Vol] 12.3 g/dL 12.0-15.0 [facility] Blood lymphocytes/100 leukoc ytesOrdered By: Dr. Rubio on 11-04-2022 Lymphocytes/100 WBC (Bld) 25.4 % 19-41 [facility] Blood monocytes/100 leukocyt esOrdered By: Dr. Rubio on 11-04-2022 Monocytes/100 WBC (Bld) 6.0 % 0-10 [facility] Blood platelet mean volumeOr dered By: Dr. Rubio on 11-04-2022 Platelet mean volume (Bld) [Entitic vol] 9.6 fL 6.2-12.0 [facility] Determination of erythrocyte mean corpuscular volume (MCV)Ordered By: Dr. Rubio on 11-04-2022 MCV (RBC) [Entitic vol] 86.4 fL 81-99 [facility] Hematocrit Auto (Bld) [Volum e fraction]Ordered By: Dr. Rubio on 11-04-2022 Hematocrit (Bld) [Volume fraction] 38.2 % 37-47 [facility] Laboratory - Chemistry and C hemistry - challengeOrdered By: Dr. Rubio on 11-04-2022 CO2 [Moles/Vol] 28.0 mmol/L 21.0-32.0 [facility] Urea nitrogen/Creatinine [Mass ratio] 31.9 mg/mg 10-20 [facility] Laboratory - Hematology and Cell countsOrdered By: Dr. Rubio on 11-04-2022 Erythrocyte distribution width (RBC) [Entitic vol] 44.1 fL 35.1-43.9 [facility] Erythrocyte distribution width (RBC) [Ratio] 13.9 % 11.6-14.6 [facility] Immature granulocytes/100 WBC (Bld) 0.700 % 0.0-0.9 [facility] Comment on above: IG% - Immature Granu locytes (promyelocytes, myelocytes and metamyelocytes) > 1% indicates that a LEFT SHIFT is Present. MCH (RBC) [Entitic mass] 27.8 pg 27.0-32.0 [facility] Nucleated RBC/100 WBC (Bld) [Ratio] 0 % 0-5 [facility] MCHC Auto (RBC) [Mass/Vol]Or dered By: Dr. Rubio on 11-04-2022 MCHC (RBC) [Mass/Vol] 32.2 g/dL 32-36 [facility] No Panel InformationOrdered By: Dr. Rubio on 11-04-2022 Estimated GFR (MDRD) Amer 61 mL/min >60 [facility] Comment on above: GFR Calc Estimated GFR (MDRD) Non-Af Amer 51 mL/min >60 [facility] Comment on above: Non- GFR Calc Platelets bldOrdered By: Dr. Rubio on 11-04-2022 Platelets (Bld) [#/Vol] 367 10*3/uL 150-450 [facility] Serum or plasma calcium sandor urement (mass/volume)Ordered By: Dr. Rubio on 11-04-2022 Calcium [Mass/Vol] 9.3 mg/dL 8.5-10.1 [facility] Serum or plasma creatinine m easurement (mass/volume)Ordered By: Dr. Rubio on 11-04-2022 Creatinine [Mass/Vol] 1.13 mg/dL 0.55-1.02 [facility] Comment on above: The validity of the calculated GFR & GFRAA in patients over 70 years has not been determined. Clinical correlation is essential. Serum or plasma urea nitroge n measurement (mass/volume)Ordered By: Dr. Rubio on 11-04-2022 Urea nitrogen [Mass/Vol] 36 mg/dL 7-18 [facility] Thin prep Papanicolaou smear with manual screeningOrdered By: Dr. Rubio on 11-04-2022 Thin prep Papanicolaou smear with manual screening 10 5-15 [facility] Absolute lymphocyte countOrd ered By: Beltran Miranda on 10-08-2022 Lymphocytes Auto (Unsp spec) [#/Vol] 7.08 10*3/uL 0.83-4.51 [facility] Basophil percentageOrdered B y: Beltran Miranda on 10-08-2022 Basophils/100 WBC (Bld) 0.3 % 0-1 [facility] Chloride [Moles/Vol] 95 mmol/L 98-107 [facility] Eosinophils/100 WBC (Bld) 1.8 % 0-5 [facility] Glucose [Mass/Vol] 157 mg/dL 74-106 [facility] Comment on above: Fasting Glucose resu lt greater than or equal to 126 mg/dL suggests DIABETES MELLITUS per A.D.A. criteria. Neutrophils (Bld) [#/Vol] 5.1 10*3/uL 2.0-7.7 [facility] Neutrophils/100 WBC (Bld) 37.9 % 47-70 [facility] Potassium [Moles/Vol] 3.4 mmol/L 3.5-5.1 [facility] Sodium [Moles/Vol] 135 mmol/L 136-145 [facility] WBC (Bld) [#/Vol] 13.6 10*3/uL 4.4-11.0 [facility] Blood erythrocytes count (nu mber/volume)Ordered By: Beltran Miranda on 10-08-2022 RBC (Bld) [#/Vol] 4.72 10*6/uL 4.2-5.4 [facility] Blood hemoglobin measurement (mass/volume)Ordered By: Beltran Miranda on 10-08-2022 Hemoglobin (Bld) [Mass/Vol] 13.2 g/dL 12.0-15.0 [facility] Blood lymphocytes/100 leukoc ytesOrdered By: Beltran Miranda on 10-08-2022 Lymphocytes/100 WBC (Bld) 52.2 % 19-41 [facility] Blood manual differential co mment interpretation (narrative result)Ordered By: Beltran Miranda on 10-08-2022 Manual differential comment Lorenzo (Bld) [Interp] SCANNED [facility] Comment on above: LYMPHOCYTOSIS NOTED Blood monocytes/100 leukocyt esOrdered By: Beltran Miranda on 10-08-2022 Monocytes/100 WBC (Bld) 7.4 % 0-10 [facility] Blood platelet mean volumeOr dered By: Beltran Miranda on 10-08-2022 Platelet mean volume (Bld) [Entitic vol] 9.7 fL 6.2-12.0 [facility] Determination of erythrocyte mean corpuscular volume (MCV)Ordered By: Beltran Miranda on 10-08-2022 MCV (RBC) [Entitic vol] 87.3 fL 81-99 [facility] Hematocrit Auto (Bld) [Volum e fraction]Ordered By: Beltran Miranda on 10-08-2022 Hematocrit (Bld) [Volume fraction] 41.2 % 37-47 [facility] Laboratory - Chemistry and C hemistry - challengeOrdered By: Beltran Miranda on 10-08-2022 CO2 [Moles/Vol] 28.0 mmol/L 21.0-32.0 [facility] Magnesium [Mass/Vol] 1.1 mg/dL 1.6-2.6 [facility] Urea nitrogen/Creatinine [Mass ratio] 18.1 mg/mg 10-20 [facility] Laboratory - Hematology and Cell countsOrdered By: Beltran Miranda on 10-08-2022 Erythrocyte distribution width (RBC) [Entitic vol] 44.5 fL 35.1-43.9 [facility] Erythrocyte distribution width (RBC) [Ratio] 13.8 % 11.6-14.6 [facility] Immature granulocytes/100 WBC (Bld) 0.400 % 0.0-0.9 [facility] Comment on above: IG% - Immature Granu locytes (promyelocytes, myelocytes and metamyelocytes) > 1% indicates that a LEFT SHIFT is Present. MCH (RBC) [Entitic mass] 28.0 pg 27.0-32.0 [facility] Nucleated RBC/100 WBC (Bld) [Ratio] 0 % 0-5 [facility] MCHC Auto (RBC) [Mass/Vol]Or dered By: Beltran Miranda on 10-08-2022 MCHC (RBC) [Mass/Vol] 32.0 g/dL 32-36 [facility] No Panel InformationOrdered By: Beltran Miranda on 10-08-2022 Troponin I High Sensitivity 20 pg/mL 3.0-54.0 [facility] Comment on above: Please Note: [place] t Units and Gender Specific Reference Ranges. For more information see Policy Stat Procedure [place] High Sensitivity Troponin (TNIH) and attachments. Atypical Lymphocytes RARE % [facility] Estimated Creatinine Clearance Calc 46.07 ml/min [facility] Estimated GFR (MDRD) Amer 76 mL/min >60 [facility] Comment on above: GFR Calc Estimated GFR (MDRD) Non-Af Amer 63 mL/min >60 [facility] Comment on above: Non- GFR Calc Thyroid Stimulating Hormone (TSH) 2.08 uIU/mL 0.358-3.74 [facility] Platelets bldOrdered By: Andrew Miranda on 10-08-2022 Platelets (Bld) [#/Vol] 377 10*3/uL 150-450 [facility] Serum or plasma calcium sandor urement (mass/volume)Ordered By: Beltran Miranda on 10-08-2022 Calcium [Mass/Vol] 9.3 mg/dL 8.5-10.1 [facility] Serum or plasma creatinine m easurement (mass/volume)Ordered By: Beltran Miranda on 10-08-2022 Creatinine [Mass/Vol] 0.94 mg/dL 0.55-1.02 [facility] Comment on above: The validity of the calculated GFR & GFRAA in patients over 70 years has not been determined. Clinical correlation is essential. Serum or plasma urea nitroge n measurement (mass/volume)Ordered By: Beltran Miranda on 10-08-2022 Urea nitrogen [Mass/Vol] 17 mg/dL 7-18 [facility] Thin prep Papanicolaou smear with manual screeningOrdered By: Beltran Miranda on 10-08-2022 Thin prep Papanicolaou smear with manual screening 12 5-15 [facility] Cervical or vagninal specime n microscopic examination by cytology stain (reported asOrdered By: Chanda Sanz on 09-08-2022 Cytology report Cyto stain Doc (Cvx/Vag) Comment . [facility] Comment on above: The Pap smear is a s creening test designed to aid in thedetection of premalignant and malignant conditions of theuterine cervix. It is not a diagnostic procedure andshould not be used as the sole means of detecting cervicalcancer. Both false-positive and false-negative reports dooccur. Detection in cervical specim en of any of human papilloma virus (HPV) 16, 18, 31, 33,Ordered By: Chanda Sazn on 09-08-2022 HPV 16+18+31+33+35+39+45+ 51+52+56+58+59+66+68 DNA Probe+sig amp Ql (Cvx) Positive Negative [facility] Comment on above: This nucleic acid am plification test detects fourteen high- risk HPV types (16,18,31,33,35,39,45,51,52,56,58,59,66,68)without differentiation. Laboratory - CytologyOrdered By: Chanda Sanz on 09-08-2022 Color Maker Dyer Cyto stain Nom (Cvx/Vag) [ID] Comment . [facility] Comment on above: Joy Escamilla, Cyto technologist (ASCP) Pathologist Cyto stain Nom (Cvx/Vag) [ID] Comment . [facility] Comment on above: Micaela Gutierrez MD, Pathologist Recommended follow-up Cyto stain Nom (Cvx/Vag) Comment . [facility] Comment on above: Suggest follow up as clinically appropriate. Laboratory - Miscellaneous t estsOrdered By: Chanda Sanz on 09-08-2022 Service comment (Unsp spec) [Interp] Comment . [facility] Comment on above: This liquid based Th inPrep(R) pap test was screened withthe use of an image guided system. Service comment (Unsp spec) [Interp] . . [facility] Liquid-based cerv Pap + CT/G C by CLAUDIA w reflex to high-risk HPV for ASCUSOrdered By: Chanda Sanz on 09-08-2022 Cytology report Cyto stain.thin prep Doc (Cvx/Vag) Comment . [facility] Comment on above: Criteria not met, HP V Genotype not performed.Performed at: - [facility] [id number] Director: Micaela Gutierrez MD, Phone: [phone] at: =[facility] [id number] Director: Micaela Gutierrez MD, Phone: [phone] No Panel InformationOrdered By: Chanda Sanz on 09-08-2022 Pathology report final diagnosis Narrative Comment . [facility] Comment on above: EPITHELIAL CELL ABNO RMALITY.LOW GRADE SQUAMOUS INTRAEPITHELIAL LESION (LSIL).CELLULAR CHANGES ASSOCIATED WITH ATROPHY ARE PRESENT. R87.612 Basophil percentageOrdered B y: Dr. Bacon on 07-24-2022 Bilirubin [Mass/Vol] 0.60 mg/dL 0.20-1.00 [facility] Comment on above: For patients on eltr ombopag therapy, use of Dimension [place] TBIL is not recommended. Chloride [Moles/Vol] 95 mmol/L 98-107 [facility] Cholesterol [Mass/Vol] 221 mg/dL <200 [facility] Comment on above: <200 mg/dL Desirable 200-240 mg/dL Borderline >240 mg/dL High Risk Glucose [Mass/Vol] 142 mg/dL 74-106 [facility] Comment on above: Fasting Glucose resu lt greater than or equal to 126 mg/dL suggests DIABETES MELLITUS per A.D.A. criteria. Potassium [Moles/Vol] 3.5 mmol/L 3.5-5.1 [facility] Protein [Mass/Vol] 7.6 g/dL 6.4-8.2 [facility] Sodium [Moles/Vol] 135 mmol/L 136-145 [facility] Triglyceride [Mass/Vol] 212 mg/dL <199 [facility] Comment on above: The drugs N-Acetylcy steine and Metamizole may falsely depress this assay.Serum Triglycerides Reference Interval Normal <150 mg/dL Borderline high 150 - 199 mg/dL High 200 - 499 mg/dL Very High > or = 500 mg/dL Laboratory - Chemistry and C hemistry - challengeOrdered By: Dr. Bacon on 07-24-2022 ALP [Catalytic activity/Vol] 74 U/L 45-117 [facility] ALT [Catalytic activity/Vol] 21 U/L 13-56 [facility] CO2 [Moles/Vol] 34.0 mmol/L 21.0-32.0 [facility] Globulin (S) [Mass/Vol] 4.1 g/dL 2.2-4.2 [facility] Urea nitrogen/Creatinine [Mass ratio] 26.2 mg/mg 10-20 [facility] No Panel InformationOrdered By: Dr. Bacon on 07-24-2022 Estimated GFR (MDRD) Amer 71 mL/min >60 [facility] Comment on above: GFR Calc Estimated GFR (MDRD) Non-Af Amer 59 mL/min >60 [facility] Comment on above: Non- GFR Calc Serum or plasma albumin sandor urement (mass/volume)Ordered By: Dr. Bacon on 07-24-2022 Albumin [Mass/Vol] 3.5 g/dL 3.2-5.0 [facility] Serum or plasma albumin/glob ulin mass ratioOrdered By: Dr. Bacon on 07-24-2022 Albumin/Globulin [Mass ratio] 0.9 {ratio} 0.9-2.4 [facility] Serum or plasma calcium sandor urement (mass/volume)Ordered By: Dr. Bacon on 07-24-2022 Calcium [Mass/Vol] 9.3 mg/dL 8.5-10.1 [facility] Serum or plasma cholesterol in HDL measurement (mass/volume)Ordered By: Dr. Bacon on 07-24-2022 Cholesterol in HDL [Mass/Vol] 44 mg/dL >40 [facility] Comment on above: The drugs N-Acetylcy steine and Metamizole may falsely depress this assay. Reference Range HDL <40 mg/dL Low HDL Cholesterol HDL >or= 60 mg/dL High HDL Cholesterol Serum or plasma cholesterol in VLDL measurement (mass/volume)Ordered By: Dr. Bacon on 07-24-2022 Cholesterol in VLDL [Mass/Vol] 42 mg/dL 5-40 [facility] Serum or plasma creatinine m easurement (mass/volume)Ordered By: Dr. Bacon on 07-24-2022 Creatinine [Mass/Vol] 0.99 mg/dL 0.55-1.02 [facility] Comment on above: The validity of the calculated GFR & GFRAA in patients over 70 years has not been determined. Clinical correlation is essential. Serum or plasma low density lipoprotein (LDL) cholesterol measurement (mass/volume)Ordered By: Dr. Bacon on 07-24-2022 Cholesterol in LDL [Mass/Vol] 135 mg/dL 0-130 [facility] Serum or plasma urea nitroge n measurement (mass/volume)Ordered By: Dr. Bacon on 07-24-2022 Urea nitrogen [Mass/Vol] 26 mg/dL 7-18 [facility] Thin prep Papanicolaou smear with manual screeningOrdered By: Dr. Bacon on 07-24-2022 Thin prep Papanicolaou smear with manual screening 13 U/L 15-37 [facility] Thin prep Papanicolaou smear with manual screening 6 5-15 [facility] Whole blood hemoglobin A1c/t otal hemoglobin ratio (mass fraction)Ordered By: Dr. Bacon on 07-24-2022 HbA1c (Bld) [Mass fraction] 7.2 % 3.8-5.6 [facility] Comment on above: Normal < 5.7 % Predi abetic 5.7 - 6.4 % Diabetic >or= 6.5 % Please note range changes. Laboratory - Drug toxicology on 01-20-2022 Amphetamines Ql (U) Negative [facility] Work Phone: Benzodiazepines Ql (U) Negative [facility] Work Phone: Cannabinoids Screen Ql (U) Negative [facility] Work Phone: Cocaine Ql (U) Negative [facility] Work Phone: Opiates Ql (U) Negative [facility] Work Phone: No Panel Informationon 01-20 MDMA (Ecstasy) Screen Negative [facility] Work Phone: Urine Barbiturates Screen Negative [facility] Work Phone: Urine Drug Screen Comment [facility] Work Phone: Comment on above: CONFIRMATORY TESTING FOR ALL POSITIVE URINE DRUG SCREENRESULTS WILL ONLY BE SENT OUT UPON PHYSICIAN ORDER. VISTA Urine Drug Screen methods provide only preliminaryanalytical test results. A more specific alternate chemicalmethod must be used in order to obtain a confirmedanalytical result. Gas chromatography/mass spectrometery(GC/MS) is the preferred confirmatory method. Clinicalconsideration and professional judgement should be appliedto any drug of abuse test result, particularly whenpreliminary positive results are used. URINE TCA TESTING MUST BE ORDERED SEPARATELY. USE TESTMNEMONIC: [facility] Urine Methadone Screen Negative [facility] Work Phone: Urine phencyclidine (PCP) de tectionon 01-20-2022 Phencyclidine Ql (U) Negative [facility] Work Phone: Absolute lymphocyte counton 12-17-2021 Lymphocytes Auto (Unsp spec) [#/Vol] 4.03 10*3/uL 0.83-4.51 [facility] Work Phone: Basophil percentageon 2021 Basophils/100 WBC (Bld) 0.3 % 0-1 [facility] Work Phone: Bilirubin [Mass/Vol] 0.40 mg/dL 0.20-1.00 [facility] Work Phone: Comment on above: For patients on eltr ombopag therapy, use of Dimension [place] TBIL is not recommended. Chloride [Moles/Vol] 96 mmol/L 98-107 [facility] Work Phone: Cholesterol [Mass/Vol] 204 mg/dL High [facility] Work Phone: Comment on above: <200 mg/dL Desirable 200-240 mg/dL Borderline >240 mg/dL High Risk Eosinophils/100 WBC (Bld) 1.0 % 0-5 [facility] Work Phone: Glucose [Mass/Vol] 156 mg/dL 74-106 [facility] Work Phone: Comment on above: Fasting Glucose resu lt greater than or equal to 126 mg/dL suggests DIABETES MELLITUS per A.D.A. criteria. Neutrophils (Bld) [#/Vol] 6.4 10*3/uL 2.0-7.7 [facility] Work Phone: Neutrophils/100 WBC (Bld) 56.0 % 47-70 [facility] Work Phone: Potassium [Moles/Vol] 3.6 mmol/L 3.5-5.1 [facility] Work Phone: Protein [Mass/Vol] 7.6 g/dL 6.4 - 8.2 gm/dL [facility] Work Phone: Sodium [Moles/Vol] 135 mmol/L 136-145 [facility] Work Phone: Triglyceride [Mass/Vol] 250 mg/dL High [facility] Work Phone: Comment on above: The drugs N-Acetylcy steine and Metamizole may falsely depress this assay.Serum Triglycerides Reference Interval Normal <150 mg/dL Borderline high 150 - 199 mg/dL High 200 - 499 mg/dL Very High > or = 500 mg/dL WBC (Bld) [#/Vol] 11.5 10*3/uL 4.4-11.0 [facility] Work Phone: Blood erythrocytes count (nu mber/volume)on 12-17-2021 RBC (Bld) [#/Vol] 4.53 10*6/uL 4.2-5.4 [facility] Work Phone: Blood hemoglobin measurement (mass/volume)on 12-17-2021 Hemoglobin (Bld) [Mass/Vol] 13.1 g/dL 12.0-15.0 [facility] Work Phone: Blood lymphocytes/100 leukoc yteson 12-17-2021 Lymphocytes/100 WBC (Bld) 35.0 % 19-41 [facility] Work Phone: Blood monocytes/100 leukocyt eson 12-17-2021 Monocytes/100 WBC (Bld) 7.2 % 0-10 [facility] Work Phone: [phone] Blood platelet mean volumeon 12-17-2021 Platelet mean volume (Bld) [Entitic vol] 9.7 fL 6.2-12.0 [facility] Work Phone: CMP (EXTERNAL)on 12-17-2021 Alk Phos Total 69 U/L 45 - 117 U/L [facility] AST [Catalytic activity/Vol] 16 U/L 8 - 37 U/L [facility] Bili Total 0.40 mg/dL 0.2 - 1 mg/dL [facility] Calcium [facility] Chloride [facility] CO2 [facility] Creatinine [facility] GFR AFR AMER 80 mL/MIN [facility] GFR/1.73 sq M.predicted among non-blacks MDRD (S/P/Bld) [Vol rate/Area] 66 mL/min/{1.73_m2} [facility] Glucose [facility] K [facility] Urea nitrogen [Mass/Vol] 30.1 mg/dL Abnormal 7 - 18 MG/DL [facility] Determination of erythrocyte mean corpuscular volume (MCV)on 12-17-2021 MCV (RBC) [Entitic vol] 88.7 fL 81-99 [facility] Work Phone: [phone] Hematocrit Auto (Bld) [Volum e fraction]on 12-17-2021 Hematocrit (Bld) [Volume fraction] 40.2 % 37-47 [facility] Work Phone: [phone] LIPID PANEL (OUTSIDE)on LDL:HDL Ratio [facility] Non-HDL Cholesterol [facility] TC:HDL Ratio [facility] VLDL Cholesterol 50 High [facility] Laboratory - Chemistry and C hemistry - challengeon 12-17-2021 ALP [Catalytic activity/Vol] 69 U/L 45-117 [facility] Work Phone: ALT [Catalytic activity/Vol] 21 U/L 12 - 78 U/L [facility] Work Phone: CO2 [Moles/Vol] 31.0 mmol/L 21.0-32.0 [facility] Work Phone: [phone] Globulin (S) [Mass/Vol] 4.0 g/dL 2.2-4.2 [facility] Work Phone: [phone] Urea nitrogen/Creatinine [Mass ratio] 30.1 mg/mg 10-20 [facility] Work Phone: Laboratory - Hematology and Cell countson 12-17-2021 Erythrocyte distribution width (RBC) [Entitic vol] 43.8 fL 35.1-43.9 [facility] Work Phone: [phone] Erythrocyte distribution width (RBC) [Ratio] 13.5 % 11.6-14.6 [facility] Work Phone: Immature granulocytes/100 WBC (Bld) 0.500 % 0.0-0.9 [facility] Work Phone: Comment on above: IG% - Immature Granu locytes (promyelocytes, myelocytes and metamyelocytes) > 1% indicates that a LEFT SHIFT is Present. MCH (RBC) [Entitic mass] 28.9 pg 27.0-32.0 [facility] Work Phone: Nucleated RBC/100 WBC (Bld) [Ratio] 0 % 0-5 [facility] Work Phone: [phone] MCHC Auto (RBC) [Mass/Vol]on 12-17-2021 MCHC (RBC) [Mass/Vol] 32.6 g/dL 32-36 [facility] Work Phone: No Panel Informationon 12-17 Estimated GFR (MDRD) Amer 80 mL/min >60 [facility] Work Phone: Comment on above: GFR Calc Estimated GFR (MDRD) Non-Af Amer 66 mL/min >60 [facility] Work Phone: Comment on above: Non- GFR Calc Platelets bldon 12-17-2021 Platelets (Bld) [#/Vol] 328 10*3/uL 150-450 [facility] Work Phone: [phone] Serum or plasma albumin sandor urement (mass/volume)on 12-17-2021 Albumin [Mass/Vol] 3.6 g/dL 3.2 - 4.6 gm/dL [facility] Work Phone: [phone] Serum or plasma albumin/glob ulin mass ratioon 12-17-2021 Albumin/Globulin [Mass ratio] 0.9 {ratio} 0.9-2.4 [facility] Work Phone: [phone] Serum or plasma calcium sandor urement (mass/volume)on 12-17-2021 Calcium [Mass/Vol] 9.0 mg/dL 8.5-10.1 [facility] Work Phone: [phone] Serum or plasma cholesterol in HDL measurement (mass/volume)on 12-17-2021 Cholesterol in HDL [Mass/Vol] 38 mg/dL Low [facility] Work Phone: Comment on above: The drugs N-Acetylcy steine and Metamizole may falsely depress this assay. Reference Range HDL <40 mg/dL Low HDL Cholesterol HDL >or= 60 mg/dL High HDL Cholesterol Serum or plasma cholesterol in VLDL measurement (mass/volume)on 12-17-2021 Cholesterol in VLDL [Mass/Vol] 50 mg/dL 5-40 [facility] Work Phone: [phone] Serum or plasma creatinine m easurement (mass/volume)on 12-17-2021 Creatinine [Mass/Vol] 0.90 mg/dL 0.55-1.02 [facility] Work Phone: Comment on above: The validity of the calculated GFR & GFRAA in patients over 70 years has not been determined. Clinical correlation is essential. Serum or plasma low density lipoprotein (LDL) cholesterol measurement (mass/volume)on 12-17-2021 Cholesterol in LDL [Mass/Vol] 116 mg/dL [facility] Work Phone: Serum or plasma urea nitroge n measurement (mass/volume)on 12-17-2021 Urea nitrogen [Mass/Vol] 27 mg/dL 7-18 [facility] Work Phone: [phone] Thin prep Papanicolaou smear with manual screeningon 12-17-2021 Thin prep Papanicolaou smear with manual screening 16 U/L 15-37 [facility] Work Phone: Thin prep Papanicolaou smear with manual screening 8 5-15 [facility] Work Phone: [phone] Whole blood hemoglobin A1c/t otal hemoglobin ratio (mass fraction)on 12-17-2021 HbA1c (Bld) [Mass fraction] 6.9 % Abnormal 4.0 - 6.0 % [facility] Work Phone: Comment on above: Normal < 5.7 % Predi abetic 5.7 - 6.4 % Diabetic >or= 6.5 % Please note range changes. Laboratory - Drug toxicology on 10-28-2021 Amphetamines Ql (U) Negative [facility] Work Phone: [phone] Benzodiazepines Ql (U) Negative [facility] Work Phone: [phone] Cannabinoids Screen Ql (U) Negative [facility] Work Phone: [phone] Cocaine Ql (U) Negative [facility] Work Phone: [phone] Opiates Ql (U) Negative [facility] Work Phone: [phone] No Panel Informationon 10-28 MDMA (Ecstasy) Screen Negative [facility] Work Phone: [phone] Miscellaneous Test See comment [facility] Work Phone: [phone] Comment on above: [id number] 6+OXYCODONE-B UND (ng/mL) DRUG RESULT SCREEN CUTOFF____ Amphetamines,Urine Negative ng/mL 1000 Amphetamine test includes Amphetamine and Methamphetamine.Barbiturates Negative ng/mL 200Benzodiazepines Negative ng/mL 200Cannabinoid Negative ng/mL 20Cocaine (Metab) Negative ng/mL 300Opiates Negative ng/mL 300 Opiates test includes Codeine, Morphine, Hydromorphone, Hydrocodone. Oxycodone/Oxymorphone,Urine Negative ng/mL 300 Test includes Oxydodone and Oxymorphone. TESTING PERFORMED AT [facility]. ORIGINAL REPORT ON FILE IN LAB CONTAINS ADDITIONAL TEST SITE INFORMATION. Urine Barbiturates Screen Negative [facility] Work Phone: Urine Drug Screen Comment [facility] Work Phone: Comment on above: CONFIRMATORY TESTING FOR ALL POSITIVE URINE DRUG SCREENRESULTS WILL ONLY BE SENT OUT UPON PHYSICIAN ORDER. The results of Urine Drug Screen methods provide only preliminary analytical test results. A more specific alternate chemical method must be used in order to obtain a confirmed analytical result. Gas chromatography/mass spectrometery (GC/MS) is the preferred confirmatory method. Clinical consideration and professional judgement should be applied to any drug of abuse test result, particularly whenpreliminary positive results are used. Urine Methadone Screen Negative [facility] Work Phone: Screening buprenorphine dete ctionon 10-28-2021 Buprenorphine Screen Ql (Unsp spec) Negative [facility] Work Phone: Urine phencyclidine (PCP) de tectionon 10-28-2021 Phencyclidine Ql (U) Negative [facility] Work Phone: Lab Report: PAP I-G HPV Hi R iskon 04-07-2017 GE use only - for [employer] import when terms are not otherwise specified Positive High Negative [facility] HPV HC,HGH RISK Positive High Negative [facility] Lab Report: CT/NG [facility] BY PCR on 04-01-2017 C. trachomatis DNA CLAUDIA+probe Ql (U) Negative Negative [facility] N. gonorrhoeae DNA CLAUDIA+probe Ql (Unsp spec) Negative Negative [facility] Office Visit: new annualon 0 04-01-2017 Documentation of current medications (procedure) Done Invalid Interpretation Code [facility] Fall risk assessment [facility] Protein mass conc Done [facility] Tobacco smoking status NHIS Never [facility] Tobacco smoking status NHIS Never smoker [facility] Tobacco use [facility] Never smoker Invalid Interpretation Code [facility] Office Visit: new annualon 0 08-16-2013 Breast Mammogram screening Normal Bilateral [facility] General categories [Interpretation] of Cervical or vaginal smear or scraping by Cyto stain Normal [facility] Vital Signs Date Time Vital Sign Value Performing Clinician Facility 01-24-2025 14:03-040 Body height 160 cm Kali Bacon MD Work Phone: [facility] 01-24-2025 14:03-0400 Body mass index (BMI) [Ratio] 34.01 kg/m2 Kali Bacon MD Work Phone: [facility] 01-24-2025 14:03-0400 Body temperature 97.11 [degF] Kali Bacon MD Work Phone: [facility] 01-24-2025 14:03-0400 Body weight 87.09 kg Kali Bacon MD Work Phone: [facility] 01-24-2025 14:03-0400 Diastolic blood pressure 78 mm[Hg] Kali Bacon MD Work Phone: [facility] 01-24-2025 14:03-0400 Heart rate 80 /min Kali Bacon MD Work Phone: [facility] 01-24-2025 14:03-0400 Respiratory rate 18 /min Kali Bacon MD Work Phone: [facility] 01-24-2025 14:03-0400 SaO2% (BldA) [Mass fraction] 98 % Kali Bacon MD Work Phone: [facility] 01-24-2025 14:03-0400 Systolic blood pressure 124 mm[Hg] Kali Bacon MD Work Phone: [facility] 12-26-2024 09:24-0400 Body mass index (BMI) [Ratio] 34.54 kg/m2 [facility] Work Phone: [facility] 12-26-2024 09:24-0400 Body temperature 97.9 [degF] [facility] Work Phone: [facility] 12-26-2024 09:24-0400 Body weight 88.45 kg [facility] Work Phone: [facility] 12-26-2024 09:24-0400 Diastolic blood pressure 84 mm[Hg] [facility] Work Phone: [facility] 12-26-2024 09:24-0400 Heart rate 86 /min [facility] Work Phone: [facility] 12-26-2024 09:24-0400 SaO2% (BldA) [Mass fraction] 97 % [facility] Work Phone: [facility] 12-26-2024 09:24-0400 Systolic blood pressure 138 mm[Hg] [facility]str Work Phone: [facility] 12-25-2024 15:40-0400 Body height 160.[address] Kali Bacon MD Work Phone: [facility] 11-28-2024 13:17-0400 Body mass index (BMI) [Ratio] 34.2 kg/m2 Dr. Kali Bacon MD Work Phone: [facility] 11-28-2024 13:17-0400 Body weight 87.[address] Kali Bacon MD Work Phone: [facility] 11-28-2024 13:17-0400 Diastolic blood pressure 69 mm[Hg] Dr. Kali Bacon MD Work Phone: [facility] 11-28-2024 13:17-0400 Heart rate 78 /min Dr. Kali Bacon MD Work Phone: [facility] 11-28-2024 13:17-0400 Respiratory rate 16 /min Dr. Kali Bacon MD Work Phone: [facility] 11-28-2024 13:17-0400 Systolic blood pressure 154 mm[Hg] Dr. Kali Bacon MD Work Phone: [facility] 11-28-2024 09:48-0400 Body mass index (BMI) [Ratio] 34.01 kg/m2 [facility] Work Phone: [facility] 11-28-2024 09:48-0400 Body temperature 98.2 [degF] [facility]str Work Phone: [facility] 11-28-2024 09:48-0400 Body weight 87.09 kg In[facility]str Work Phone: [facility] 11-28-2024 09:48-0400 Diastolic blood pressure 74 mm[Hg] In[facility]str Work Phone: [facility] 11-28-2024 09:48-0400 Heart rate 91 /min In[facility]str Work Phone: [facility] 11-28-2024 09:48-0400 SaO2% (BldA) [Mass fraction] 95 % [facility] Work Phone: [facility] 11-28-2024 09:48-0400 Systolic blood pressure 158 mm[Hg] In[facility]str Work Phone: [facility] 11-20-2024 16:09-0400 Body height 160 cm Kali Bacon MD Work Phone: [facility] 11-20-2024 16:09-0400 Body mass index (BMI) [Ratio] 33.83 kg/m2 Kali Bacon MD Work Phone: [facility] 11-20-2024 16:09-0400 Body temperature 97.59 [degF] Kali Bacon MD Work Phone: [facility] 11-20-2024 16:09-0400 Body weight 86.64 kg Kali Bacon MD Work Phone: [facility] 11-20-2024 16:09-0400 Diastolic blood pressure 68 mm[Hg] Kali Bacon MD Work Phone: [facility] 11-20-2024 16:09-0400 Heart rate 80 /min Kali Bacon MD Work Phone: [facility] 11-20-2024 16:09-0400 Respiratory rate 18 /min Kali Bacon MD Work Phone: [facility] 11-20-2024 16:09-0400 SaO2% (BldA) [Mass fraction] 98 % Kali Bacon MD Work Phone: [facility] 11-20-2024 16:09-0400 Systolic blood pressure 108 mm[Hg] Kali Bacon MD Work Phone: [facility] 11-15-2024 14:10-0400 Body temperature 97.9 [degF] Marce Larkin MD Work Phone: [facility] 11-15-2024 14:10-0400 Diastolic blood pressure 61 mm[Hg] Marce Larkin MD Work Phone: [facility] 11-15-2024 14:10-0400 Heart rate 80 /min Marce Larkin MD Work Phone: [facility] 11-15-2024 14:10-0400 Respiratory rate 20 /min Marce Larkin MD Work Phone: [facility] 11-15-2024 14:10-0400 SaO2% (BldA) [Mass fraction] 98 % Marce Larkin MD Work Phone: [facility] 11-15-2024 14:10-0400 Systolic blood pressure 122 mm[Hg] Marce Larkin MD Work Phone: [facility] 11-15-2024 11:09-0400 Body height 160 cm Marce Larkin MD Work Phone: [facility] 11-15-2024 11:09-0400 Body mass index (BMI) [Ratio] 32.77 kg/m2 Marce Larkin MD Work Phone: [facility] 11-15-2024 11:09-0400 Body weight 83.92 kg Marce Larkin MD Work Phone: [facility] 11-14-2024 08:40-0400 Body temperature 97.11 [degF] Injection Wstr Work Phone: [facility] 11-14-2024 08:40-0400 Diastolic blood pressure 78 mm[Hg] Injection Wstr Work Phone: [facility] 11-14-2024 08:40-0400 Heart rate 87 /min Injection [facility]str Work Phone: [facility] 11-14-2024 08:40-0400 SaO2% (BldA) [Mass fraction] 96 % Injection [facility]str Work Phone: [facility] 11-14-2024 08:40-0400 Systolic blood pressure 147 mm[Hg] Injection Wstr Work Phone: [facility] 11-06-2024 09:13-0400 Body mass index (BMI) [Ratio] 34.54 kg/m2 Fanny Barron Work Phone: [facility] 11-06-2024 09:13-0400 Body temperature 98.4 [degF] Fanny Barron Work Phone: [facility] 11-06-2024 09:13-0400 Body weight 88.45 kg Fanny Barron Work Phone: [facility] 11-06-2024 09:13-0400 Diastolic blood pressure 79 mm[Hg] Fanny Barron Work Phone: [facility] 11-06-2024 09:13-0400 Heart rate 88 /min Fanny Barron Work Phone: [facility] 11-06-2024 09:13-0400 SaO2% (BldA) [Mass fraction] 98 % Fanny Barron Work Phone: [facility] 11-06-2024 09:13-0400 Systolic blood pressure 144 mm[Hg] Fanny Barron Work Phone: [facility] 10-25-2024 08:12-0400 Body height 160.[address] Kali Bacon MD Work Phone: [facility] 10-25-2024 08:11-0400 Body mass index (BMI) [Ratio] 34.5 kg/m2 Dr. Kali Bacon MD Work Phone: [facility] 10-25-2024 08:11-0400 Body weight 88.[address] Kali Bacon MD Work Phone: [facility] 10-25-2024 08:11-0400 Diastolic blood pressure 72 mm[Hg] Dr. Kali Bacon MD Work Phone: [facility] 10-25-2024 08:11-0400 Systolic blood pressure 163 mm[Hg] Dr. Kali Bacon MD Work Phone: [facility] 10-09-2024 10:35-0500 Body mass index (BMI) [Ratio] 34.68 kg/m2 Chula Valentine [employer] Work Phone: [facility] 10-09-2024 10:35-0500 Body temperature 97.5 [degF] Chula Valentine [employer] Work Phone: [facility] 10-09-2024 10:35-0500 Body weight 88.8 kg Chula Valentine [employer] Work Phone: [facility] 10-09-2024 10:35-0500 Diastolic blood pressure 82 mm[Hg] Chula Valentine [employer] Work Phone: [facility] 10-09-2024 10:35-0500 Heart rate 93 /min Chula Valentine [employer] Work Phone: [facility] 10-09-2024 10:35-0500 Respiratory rate 18 /min Chula Valentine [employer] Work Phone: [facility] 10-09-2024 10:35-0500 SaO2% (BldA) [Mass fraction] 100 % Chula Valentine [employer] Work Phone: [facility] 10-09-2024 10:35-0500 Systolic blood pressure 144 mm[Hg] Chula Valentine [employer] Work Phone: [facility] 10-02-2024 12:52-0500 Body height 160 cm Kali Bacon MD Work Phone: [facility] 10-02-2024 12:52-0500 Body mass index (BMI) [Ratio] 34.47 kg/m2 Kali Bacon MD Work Phone: [facility] 10-02-2024 12:52-0500 Body temperature 97.3 [degF] Kali Bacon MD Work Phone: [facility] 10-02-2024 12:52-0500 Body weight 88.27 kg Kali Bacon MD Work Phone: [facility] 10-02-2024 12:52-0500 Diastolic blood pressure 82 mm[Hg] Kali Bacon MD Work Phone: [facility] 10-02-2024 12:52-0500 Heart rate 88 /min Kali Bacon MD Work Phone: [facility] 10-02-2024 12:52-0500 Respiratory rate 18 /min Kali Bacon MD Work Phone: [facility] 10-02-2024 12:52-0500 SaO2% (BldA) [Mass fraction] 98 % Kali Bacon MD Work Phone: [facility] 10-02-2024 12:52-0500 Systolic blood pressure 128 mm[Hg] Kali Bacon MD Work Phone: [facility] 09-20-2024 13:02-0500 Body height 157.5 cm Kali Bacon MD Work Phone: [facility] 09-20-2024 13:02-0500 Body mass index (BMI) [Ratio] 35.85 kg/m2 Kali Bacon MD Work Phone: [facility] 09-20-2024 13:02-0500 Body temperature 97.59 [degF] Kali Bacon MD Work Phone: [facility] 09-20-2024 13:02-0500 Body weight 88.91 kg Kali Bacon MD Work Phone: [facility] 09-20-2024 13:02-0500 Diastolic blood pressure 84 mm[Hg] Kali Bacon MD Work Phone: [facility] 09-20-2024 13:02-0500 Heart rate 88 /min Kali Bacon MD Work Phone: [facility] 09-20-2024 13:02-0500 Respiratory rate 18 /min Kali Bacon MD Work Phone: [facility] 09-20-2024 13:02-0500 SaO2% (BldA) [Mass fraction] 97 % Kali Bacon MD Work Phone: [facility] 09-20-2024 13:02-0500 Systolic blood pressure 126 mm[Hg] Kali Bacon MD Work Phone: [facility] 09-18-2024 15:32-0500 Body height 160.[address] Kali Bacon MD Work Phone: [facility] 09-18-2024 15:24-0500 Body mass index (BMI) [Ratio] 35.1 kg/m2 Dr. Kali Bacon MD Work Phone: [facility] 09-18-2024 15:24-0500 Body weight 89.[address] Kali Bacon MD Work Phone: [facility] 09-18-2024 15:24-0500 Diastolic blood pressure 70 mm[Hg] Dr. Kali Bacon MD Work Phone: [facility] 09-18-2024 15:24-0500 Systolic blood pressure 138 mm[Hg] Dr. Kali Bacon MD Work Phone: [facility] 09-16-2024 09:12-0500 Body mass index (BMI) [Ratio] 35.93 kg/m2 Daly Fajardo MD Work Phone: [facility] 09-16-2024 09:12-0500 Body temperature 98.1 [degF] Daly Fajardo MD Work Phone: [facility] 09-16-2024 09:12-0500 Body weight 89.7 kg Daly Fajardo MD Work Phone: [facility] 09-16-2024 09:12-0500 Diastolic blood pressure 66 mm[Hg] Daly Fajardo MD Work Phone: [facility] 09-16-2024 09:12-0500 Heart rate 100 /min Daly Fajardo MD Work Phone: [facility] 09-16-2024 09:12-0500 Respiratory rate 21 /min Daly Fajardo MD Work Phone: [facility] 09-16-2024 09:12-0500 SaO2% (BldA) [Mass fraction] 97 % Daly Fajardo MD Work Phone: [facility] 09-16-2024 09:12-0500 Systolic blood pressure 142 mm[Hg] Daly Fajardo MD Work Phone: [facility] 09-14-2024 08:55-0500 Body mass index (BMI) [Ratio] 35.61 kg/m2 Halie Davin [employer] Work Phone: [facility] 09-14-2024 08:55-0500 Body weight 88.91 kg Halie Davin [employer] TENDER Work Phone: [facility] 09-14-2024 08:55-0500 Diastolic blood pressure 72 mm[Hg] Halie Davin [employer]OKE HANDLER.[employer]CE TENDER Work Phone: [facility] 09-14-2024 08:55-0500 Heart rate 89 /min Halie Davin [employer]OKE HANDLER.[employer] TENDER Work Phone: [facility] 09-14-2024 08:55-0500 SaO2% (BldA) [Mass fraction] 98 % Halie Davin [employer]OKE HANDLER.[employer]CE TENDER Work Phone: [facility] 09-14-2024 08:55-0500 Systolic blood pressure 119 mm[Hg] Halie Davin [employer]OKE HANDLER.[employer]CE TENDER Work Phone: [facility] 09-11-2024 10:00-0500 Body temperature 98.4 [degF] Treatment Wstr Work Phone: [facility] 09-11-2024 10:00-0500 Diastolic blood pressure 72 mm[Hg] Treatment Wstr Work Phone: [facility] 09-11-2024 10:00-0500 Heart rate 90 /min Treatment Wstr Work Phone: [facility] 09-11-2024 10:00-0500 Respiratory rate 20 /min Treatment Wstr Work Phone: [facility] 09-11-2024 10:00-0500 SaO2% (BldA) [Mass fraction] 96 % Treatment Wstr Work Phone: [facility] 09-11-2024 10:00-0500 Systolic blood pressure 155 mm[Hg] Treatment Wstr Work Phone: [facility] 09-06-2024 13:18-0500 Body temperature 97.81 [degF] Treatment Wstr Work Phone: [facility] 09-06-2024 13:18-0500 Diastolic blood pressure 79 mm[Hg] Treatment Wstr Work Phone: [facility] 09-06-2024 13:18-0500 Heart rate 96 /min Treatment Wstr Work Phone: [facility] 09-06-2024 13:18-0500 Respiratory rate 20 /min Treatment Wstr Work Phone: [facility] 09-06-2024 13:18-0500 SaO2% (BldA) [Mass fraction] 98 % Treatment Wstr Work Phone: [facility] 09-06-2024 13:18-0500 Systolic blood pressure 142 mm[Hg] Treatment Wstr Work Phone: [facility] 09-06-2024 11:30-0500 Body mass index (BMI) [Ratio] 35.2 kg/m2 Dr. Kali Bacon MD Work Phone: [facility] 09-06-2024 11:30-0500 Body temperature 97.5 [degF] Dr. Kali Bacon MD Work Phone: [facility] 09-06-2024 11:30-0500 Body weight 90.[address] Kali Bacon MD Work Phone: [facility] 09-06-2024 11:30-0500 Diastolic blood pressure 79 mm[Hg] Dr. Kali Bacon MD Work Phone: [facility] 09-06-2024 11:30-0500 Heart rate 99 /min Dr. Kali Bacon MD Work Phone: [facility] 09-06-2024 11:30-0500 Respiratory rate 18 /min Dr. Kali Bacon MD Work Phone: [facility] 09-06-2024 11:30-0500 SaO2% (BldA) [Mass fraction] 96 % Dr. Kali Bacon MD Work Phone: [facility] 09-06-2024 11:30-0500 Systolic blood pressure 135 mm[Hg] Dr. Kali Bacon MD Work Phone: [facility] 09-05-2024 10:47-0500 Body height 158 cm Fannytre Barron Work Phone: [facility] 09-05-2024 10:47-0500 Body mass index (BMI) [Ratio] 36.79 kg/m2 Fanny Barron Work Phone: [facility] 09-05-2024 10:47-0500 Body temperature 98.71 [degF] Fanny Barron Work Phone: [facility] 09-05-2024 10:47-0500 Body weight 91.85 kg Fanny Barron Work Phone: [facility] 09-05-2024 10:47-0500 Diastolic blood pressure 75 mm[Hg] Fanny Barron Work Phone: [facility] 09-05-2024 10:47-0500 Heart rate 92 /min Fanny Barron Work Phone: [facility] 09-05-2024 10:47-0500 SaO2% (BldA) [Mass fraction] 99 % Fanny Barron Work Phone: [facility] 09-05-2024 10:47-0500 Systolic blood pressure 159 mm[Hg] Fannytre Barron Work Phone: [facility] 09-04-2024 13:53-0500 Body height 160 cm Kali Bacon MD Work Phone: [facility] 09-04-2024 13:53-0500 Body mass index (BMI) [Ratio] 35.43 kg/m2 Kali Bacon MD Work Phone: [facility] 09-04-2024 13:53-0500 Body temperature 96.91 [degF] Kali Bacon MD Work Phone: [facility] 09-04-2024 13:53-0500 Body weight 90.72 kg Kali Bacon MD Work Phone: [facility] 09-04-2024 13:53-0500 Diastolic blood pressure 80 mm[Hg] Kali Bacon MD Work Phone: [facility] 09-04-2024 13:53-0500 Heart rate 98 /min Kali Bacon MD Work Phone: [facility] 09-04-2024 13:53-0500 Respiratory rate 18 /min Kali Bacon MD Work Phone: [facility] 09-04-2024 13:53-0500 SaO2% (BldA) [Mass fraction] 95 % Kali Bacon MD Work Phone: [facility] 09-04-2024 13:53-0500 Systolic blood pressure 128 mm[Hg] Kali Bacon MD Work Phone: [facility] 09-03-2024 08:21-0500 Body mass index (BMI) [Ratio] 35.54 kg/m2 Krislyn Aberegg PA Work Phone: [facility] 09-03-2024 08:21-0500 Body temperature 98.4 [degF] Krislyn Aberegg PA Work Phone: [facility] 09-03-2024 08:21-0500 Body weight 91 kg Krislyn Aberegg PA Work Phone: [facility] 09-03-2024 08:21-0500 Diastolic blood pressure 69 mm[Hg] Krislyn Aberegg PA Work Phone: [facility] 09-03-2024 08:21-0500 Heart rate 94 /min Krislyn Aberegg PA Work Phone: [facility] 09-03-2024 08:21-0500 Respiratory rate 20 /min Krislyn Aberegg PA Work Phone: [facility] 09-03-2024 08:21-0500 SaO2% (BldA) [Mass fraction] 95 % Krislyn Aberegg PA Work Phone: [facility] 09-03-2024 08:21-0500 Systolic blood pressure 153 mm[Hg] Krislyn Aberegg PA Work Phone: [facility] 09-01-2024 13:24-0500 Body temperature 97.11 [degF] Treatment Wstr Work Phone: [facility] 09-01-2024 13:24-0500 Diastolic blood pressure 63 mm[Hg] Treatment Wstr Work Phone: [facility] 09-01-2024 13:24-0500 Heart rate 88 /min Treatment Wstr Work Phone: [facility] 09-01-2024 13:24-0500 Respiratory rate 16 /min Treatment Wstr Work Phone: [facility] 09-01-2024 13:24-0500 SaO2% (BldA) [Mass fraction] 95 % Treatment Wstr Work Phone: [facility] 09-01-2024 13:24-0500 Systolic blood pressure 137 mm[Hg] Treatment Wstr Work Phone: [facility] 08-30-2024 14:00-0500 Diastolic blood pressure 69 mm[Hg] Treatment Wstr Work Phone: [facility] 08-30-2024 14:00-0500 Systolic blood pressure 166 mm[Hg] Treatment Wstr Work Phone: [facility] 08-30-2024 12:54-0500 Body temperature 98.4 [degF] Treatment Wstr Work Phone: [facility] 08-30-2024 12:54-0500 Heart rate 99 /min Treatment Wstr Work Phone: [facility] 08-30-2024 12:54-0500 SaO2% (BldA) [Mass fraction] 96 % Treatment Wstr Work Phone: [facility] 08-21-2024 16:32-0500 Body height 160 cm Kali Bacon MD Work Phone: [facility] 08-21-2024 16:32-0500 Body mass index (BMI) [Ratio] 35.61 kg/m2 Kali Bacon MD Work Phone: [facility] 08-21-2024 16:32-0500 Body temperature 96.91 [degF] Kali Bacon MD Work Phone: [facility] 08-21-2024 16:32-0500 Body weight 91.17 kg Kali Bacon MD Work Phone: [facility] 08-21-2024 16:32-0500 Diastolic blood pressure 76 mm[Hg] Kali Bacon MD Work Phone: [facility] 08-21-2024 16:32-0500 Heart rate 102 /min Kali Bacon MD Work Phone: [facility] 08-21-2024 16:32-0500 Respiratory rate 18 /min Kali Bacon MD Work Phone: [facility] 08-21-2024 16:32-0500 SaO2% (BldA) [Mass fraction] 96 % Kali Bacon MD Work Phone: [facility] 08-21-2024 16:32-0500 Systolic blood pressure 126 mm[Hg] Kali Bacon MD Work Phone: [facility] 02-16-2024 14:38-0400 Body height 160 cm Kali Bacon MD Work Phone: [facility] 02-16-2024 14:38-0400 Body mass index (BMI) [Ratio] 34.01 kg/m2 Kali Bacon MD Work Phone: [facility] 02-16-2024 14:38-0400 Body temperature 98.4 [degF] Kali Bacon MD Work Phone: [facility] 02-16-2024 14:38-0400 Body weight 87.09 kg Kali Bacon MD Work Phone: [facility] 02-16-2024 14:38-0400 Diastolic blood pressure 74 mm[Hg] Kali Bacon MD Work Phone: [facility] 02-16-2024 14:38-0400 Heart rate 88 /min Kali Bacon MD Work Phone: [facility] 02-16-2024 14:38-0400 Respiratory rate 21 /min Kali Bacon MD Work Phone: [facility] 02-16-2024 14:38-0400 SaO2% (BldA) [Mass fraction] 100 % Kali Bacon MD Work Phone: [facility] 02-16-2024 14:38-0400 Systolic blood pressure 138 mm[Hg] Kali Bacon MD Work Phone: [facility] 01-24-2024 13:20-0400 Body height 160 cm Kali Bacon MD Work Phone: [facility] 01-24-2024 13:20-0400 Body mass index (BMI) [Ratio] 34.81 kg/m2 Kali Bacon MD Work Phone: [facility] 01-24-2024 13:20-0400 Body temperature 98.6 [degF] Kali Bacon MD Work Phone: [facility] 01-24-2024 13:20-0400 Body weight 89.13 kg Kali Bacon MD Work Phone: [facility] 01-24-2024 13:20-0400 Diastolic blood pressure 72 mm[Hg] Kali Bacon MD Work Phone: [facility] 01-24-2024 13:20-0400 Heart rate 87 /min Kali Bacon MD Work Phone: [facility] 01-24-2024 13:20-0400 Respiratory rate 16 /min Kali Bacon MD Work Phone: [facility] 01-24-2024 13:20-0400 SaO2% (BldA) [Mass fraction] 98 % Kali Bacon MD Work Phone: [facility] 01-24-2024 13:20-0400 Systolic blood pressure 138 mm[Hg] Kali Bacon MD Work Phone: [facility] 11-01-2023 14:23-0400 Body height 160 cm Kali Bacon MD Work Phone: [facility] 11-01-2023 14:23-0400 Body temperature 96.91 [degF] Kali Bacon MD Work Phone: [facility] 11-01-2023 14:23-0400 Body weight 86.91 kg Kali Bacon MD Work Phone: [facility] 11-01-2023 14:23-0400 Diastolic blood pressure 62 mm[Hg] Kali Bacon MD Work Phone: [facility] 11-01-2023 14:23-0400 Heart rate 73 /min Kali Bacon MD Work Phone: [facility] 11-01-2023 14:23-0400 Respiratory rate 16 /min Kali Bacon MD Work Phone: [facility] 11-01-2023 14:23-0400 SaO2% (BldA) [Mass fraction] 100 % Kali Bacon MD Work Phone: [facility] 11-01-2023 14:23-0400 Systolic blood pressure 128 mm[Hg] Kali Bacon MD Work Phone: [facility] 10-27-2023 11:05-0400 Body temperature 98.2 [degF] Dr. Kali Bacon Work Phone: [facility] 10-27-2023 11:05-0400 Body weight 86.[address] Kali Bacon Work Phone: [facility] 10-27-2023 11:05-0400 Diastolic blood pressure 79 mm[Hg] Dr. Kali Bacon Work Phone: [facility] 10-27-2023 11:05-0400 Heart rate 87 /min Dr. Kali Bacon Work Phone: [facility] 10-27-2023 11:05-0400 Respiratory rate 16 /min Dr. Kali Bacon Work Phone: [facility] 10-27-2023 11:05-0400 SaO2% (BldA) [Mass fraction] 99 % Dr. Kali Bacon Work Phone: [facility] 10-27-2023 11:05-0400 Systolic blood pressure 143 mm[Hg] Dr. Kali Bacon Work Phone: [facility] 10-12-2023 13:31-0500 Body height 160.[address] Kali Bacon Work Phone: [facility] 10-12-2023 13:31-0500 Body mass index (BMI) [Ratio] 32.2 kg/m2 Dr. Kali Bacon Work Phone: [facility] 10-12-2023 13:31-0500 Body weight 82.[address] Kali Bacon Work Phone: [facility] 10-12-2023 13:31-0500 Diastolic blood pressure 74 mm[Hg] Dr. Kali Bacon Work Phone: [facility] 10-12-2023 13:31-0500 Heart rate 94 /min Dr. Kali Bacon Work Phone: [facility] 10-12-2023 13:31-0500 Respiratory rate 18 /min Dr. Kali Bacon Work Phone: [facility] 10-12-2023 13:31-0500 SaO2% (BldA) [Mass fraction] 99 % Dr. Kali Bacon Work Phone: [facility] 10-12-2023 13:31-0500 Systolic blood pressure 116 mm[Hg] Dr. Kali Bacon Work Phone: [facility] 09-17-2023 10:18-0500 Body height 160.[address] Kali Bacon Work Phone: [facility] 09-17-2023 10:11-0500 Body mass index (BMI) [Ratio] 32.5 kg/m2 Dr. Kali Bacon Work Phone: [facility] 09-17-2023 10:11-0500 Body weight 83.[address] Kali Bacon Work Phone: [facility] 09-17-2023 10:11-0500 Diastolic blood pressure 76 mm[Hg] Dr. Kali Bacon Work Phone: [facility] 09-17-2023 10:11-0500 Systolic blood pressure 133 mm[Hg] Dr. Kali Bacon Work Phone: [facility] 07-21-2023 10:38-0500 Body height 160 cm Kali Bacon MD Work Phone: [facility] 07-21-2023 10:38-0500 Body temperature 97.59 [degF] Kali Bacon MD Work Phone: [facility] 07-21-2023 10:38-0500 Body weight 82.46 kg Kali Bacon MD Work Phone: [facility] 07-21-2023 10:38-0500 Diastolic blood pressure 74 mm[Hg] Kali Bacon MD Work Phone: [facility] 07-21-2023 10:38-0500 Heart rate 68 /min Kali Bacon MD Work Phone: [facility] 07-21-2023 10:38-0500 Respiratory rate 18 /min Kali Bacon MD Work Phone: [facility] 07-21-2023 10:38-0500 SaO2% (BldA) [Mass fraction] 100 % Kali Bacon MD Work Phone: [facility] 07-21-2023 10:38-0500 Systolic blood pressure 134 mm[Hg] Kali Bacon MD Work Phone: [facility] 07-12-2023 13:35-0500 Body height 160 cm Kali Bacon MD Work Phone: [facility] 07-12-2023 13:35-0500 Body temperature 97.59 [degF] Kali Bacon MD Work Phone: [facility] 07-12-2023 13:35-0500 Body weight 82.37 kg Kali Bacon MD Work Phone: [facility] 07-12-2023 13:35-0500 Diastolic blood pressure 82 mm[Hg] Kali Bacon MD Work Phone: [facility] 07-12-2023 13:35-0500 Heart rate 74 /min Kali Bacon MD Work Phone: [facility] 07-12-2023 13:35-0500 Respiratory rate 18 /min Kali Bacon MD Work Phone: [facility] 07-12-2023 13:35-0500 SaO2% (BldA) [Mass fraction] 97 % Kali Bacon MD Work Phone: [facility] 07-12-2023 13:35-0500 Systolic blood pressure 138 mm[Hg] Kali Bacon MD Work Phone: [facility] 07-10-2023 10:48-0500 Body temperature 97.5 [degF] Marva Praisler-Wood BROKE HANDLER.[employer] F[employer]CE TENDER Work Phone: [facility] 07-10-2023 10:48-0500 Body weight 82.56 kg Marva Praisler-Wood BROKE HANDLER.[employer] F[employer]CE TENDER Work Phone: [facility] 07-10-2023 10:48-0500 Diastolic blood pressure 80 mm[Hg] Marva Praisler-Wood BROKE HANDLER.[employer] F[employer]CE TENDER Work Phone: [facility] 07-10-2023 10:48-0500 Heart rate 84 /min Marva Praisler-Wood BROKE HANDLER.[employer] F[employer]NA[employer] TENDER Work Phone: [facility] 07-10-2023 10:48-0500 Respiratory rate 18 /min Marva Praisler-Wood BROKE HANDLER.[employer] F[employer]NACE TENDER Work Phone: [facility] 07-10-2023 10:48-0500 SaO2% (BldA) [Mass fraction] 100 % Marva Praisler-Wood BROKE HANDLER.[employer] F[employer]NACE TENDER Work Phone: [facility] 07-10-2023 10:48-0500 Systolic blood pressure 170 mm[Hg] Marva Praisler-Wood BROKE HANDLER.[employer] F[employer] TENDER Work Phone: [facility] 06-24-2023 08:35-0500 Body temperature 98.2 [degF] Savita Paul BROKE HANDLER.[employer] F[employer]NACE TENDER Work Phone: [facility] 06-24-2023 08:35-0500 Body weight 80.74 kg Savita Paul BROKE HANDLER.[employer] F[employer]NA[employer] TENDER Work Phone: [facility] 06-24-2023 08:35-0500 Diastolic blood pressure 69 mm[Hg] Savita Paul BROKE HANDLER.[employer] F[employer]NACE TENDER Work Phone: [facility] 06-24-2023 08:35-0500 Heart rate 97 /min Savita Paul BROKE HANDLER.[employer] F[employer]NACE TENDER Work Phone: [facility] 06-24-2023 08:35-0500 Respiratory rate 20 /min Savita Paul BROKE HANDLER.[employer]ASS F[employer]NACE TENDER Work Phone: [facility] 06-24-2023 08:35-0500 SaO2% (BldA) [Mass fraction] 98 % Savita Paul BROKE HANDLER.[employer]ASS F[employer]NACE TENDER Work Phone: [facility] 06-24-2023 08:35-0500 Systolic blood pressure 149 mm[Hg] Savita Paul BROKE HANDLER.[employer]ASS F[employer]NACE TENDER Work Phone: [facility] 06-12-2023 08:18-0400 Body temperature 97.3 [degF] Anum Ryan BROKE HANDLER.[employer]ASS F[employer]NACE TENDER Work Phone: [facility] 06-12-2023 08:18-0400 Body weight 81.01 kg Anum Ryan BROKE HANDLER.GLASS F[employer]NACE TENDER Work Phone: [facility] 06-12-2023 08:18-0400 Diastolic blood pressure 76 mm[Hg] Anum Bronx BROKE HANDLER.[employer]ASS F[employer]NACE TENDER Work Phone: [facility] 06-12-2023 08:18-0400 Heart rate 91 /min Anum Bronx BROKE HANDLER.GLASS F[employer]NACE TENDER Work Phone: [facility] 06-12-2023 08:18-0400 Respiratory rate 21 /min Anum Bronx BROKE HANDLER.GLASS F[employer]NACE TENDER Work Phone: [facility] 06-12-2023 08:18-0400 SaO2% (BldA) [Mass fraction] 99 % Anum Ryan BROKE HANDLER.GLASS F[employer]NACE TENDER Work Phone: [facility] 06-12-2023 08:18-0400 Systolic blood pressure 144 mm[Hg] Anum Ryan BROKE HANDLER.[employer]ASS F[employer]NACE TENDER Work Phone: [facility] 05-17-2023 11:27-0400 Body temperature 97.9 [degF] Marva Praisler-Wood BROKE HANDLER.GL[employer] F[employer] TENDER Work Phone: [facility] 05-17-2023 11:27-0400 Body weight 81.92 kg Marva Praisler-Wood BROKE HANDLER.[employer] F[employer]NA[employer] TENDER Work Phone: [facility] 05-17-2023 11:27-0400 Diastolic blood pressure 84 mm[Hg] Marva Praisler-Wood BROKE HANDLER.[employer] F[employer] TENDER Work Phone: [facility] 05-17-2023 11:27-0400 Heart rate 89 /min Marva Praisler-Wood BROKE HANDLER.[employer] F[employer]CE TENDER Work Phone: [facility] 05-17-2023 11:27-0400 Respiratory rate 18 /min Marva Praisler-Wood BROKE HANDLER.GL[employer] F[employer]NACE TENDER Work Phone: [facility] 05-17-2023 11:27-0400 SaO2% (BldA) [Mass fraction] 99 % Marva Praisler-Wood BROKE HANDLER.[employer] F[employer]CE TENDER Work Phone: [facility] 05-17-2023 11:27-0400 Systolic blood pressure 179 mm[Hg] Marva Madera BROKE HANDLER.GLASS F[employer]NACE TENDER Work Phone: [facility] 04-20-2023 09:03-0400 Body weight 80.74 kg Ramses Sybil BROKE HANDLER.[employer] F[employer]CE TENDER Work Phone: [facility] 04-20-2023 09:03-0400 Diastolic blood pressure 75 mm[Hg] Ramses Sybil BROKE HANDLER.[employer] F[employer] TENDER Work Phone: [facility] 04-20-2023 09:03-0400 Heart rate 89 /min Ramses Sybil BROKE HANDLER.[employer] F[employer]NA[employer] TENDER Work Phone: [facility] 04-20-2023 09:03-0400 Systolic blood pressure 127 mm[Hg] Ramses Sybil BROKE HANDLER.[employer] F[employer]CE TENDER Work Phone: [facility] 04-14-2023 12:04-0400 Body temperature 98.01 [degF] Chula Valentine BROKE HANDLER.[employer] F[employer]CE TENDER Work Phone: [facility] 04-14-2023 12:04-0400 Body weight 81.92 kg Chula Valentine BROKE HANDLER.[employer] F[employer]CE TENDER Work Phone: [facility] 04-14-2023 12:04-0400 Diastolic blood pressure 72 mm[Hg] Chula Valentine BROKE HANDLER.[employer] F[employer]NACE TENDER Work Phone: [facility] 04-14-2023 12:04-0400 Heart rate 95 /min Chula Valentine BROKE HANDLER.[employer] F[employer] TENDER Work Phone: [facility] 04-14-2023 12:04-0400 Respiratory rate 21 /min Chula Valentine BROKE HANDLER.[employer] F[employer]NACE TENDER Work Phone: [facility] 04-14-2023 12:04-0400 SaO2% (BldA) [Mass fraction] 98 % Chula Valentine BROKE HANDLER.GL[employer] F[employer]NACE TENDER Work Phone: [facility] 04-14-2023 12:04-0400 Systolic blood pressure 140 mm[Hg] Chula Valentine BROKE HANDLER.[employer] F[employer]CE TENDER Work Phone: [facility] 04-08-2023 10:42-0400 Body mass index (BMI) [Ratio] 31.8 kg/m2 Dr. Kali Bacon Work Phone: [facility] 04-08-2023 10:42-0400 Body temperature 97.3 [degF] Dr. Kali Bacon Work Phone: [facility] 04-08-2023 10:42-0400 Diastolic blood pressure 71 mm[Hg] Dr. Kali Bacon Work Phone: [facility] 04-08-2023 10:42-0400 Heart rate 89 /min Dr. Kali Bacon Work Phone: [facility] 04-08-2023 10:42-0400 Respiratory rate 16 /min Dr. Kali Bacon Work Phone: [facility] 04-08-2023 10:42-0400 Systolic blood pressure 156 mm[Hg] Dr. Kali Bacon Work Phone: [facility] 04-07-2023 11:29-0400 Body height 160.[address] Kali Bacon Work Phone: [facility] 04-07-2023 11:25-0400 Body mass index (BMI) [Ratio] 32.1 kg/m2 Dr. Kali Bacon Work Phone: [facility] 04-07-2023 11:25-0400 Body weight 82.[address] Kali Bacon Work Phone: [facility] 04-07-2023 11:25-0400 Diastolic blood pressure 84 mm[Hg] Dr. Kali Bacon Work Phone: [facility] 04-07-2023 11:25-0400 Heart rate 90 /min Dr. Kali Bacon Work Phone: [facility] 04-07-2023 11:25-0400 Respiratory rate 20 /min Dr. Kali Bacon Work Phone: [facility] 04-07-2023 11:25-0400 SaO2% (BldA) [Mass fraction] 99 % Dr. Kali Bacon Work Phone: [facility] 04-07-2023 11:25-0400 Systolic blood pressure 155 mm[Hg] Dr. Kali Bacon Work Phone: [facility] 03-25-2023 10:52-0400 Body mass index (BMI) [Ratio] 31.8 kg/m2 Dr. Kali Bacon Work Phone: [facility] 03-25-2023 10:52-0400 Body temperature 97 [degF] Dr. Kali Bacon Work Phone: [facility] 03-25-2023 10:52-0400 Diastolic blood pressure 70 mm[Hg] Dr. Kali Bacon Work Phone: [facility] 03-25-2023 10:52-0400 Heart rate 82 /min Dr. Kali Bacon Work Phone: [facility] 03-25-2023 10:52-0400 Respiratory rate 16 /min Dr. Kali Bacon Work Phone: [facility] 03-25-2023 10:52-0400 Systolic blood pressure 151 mm[Hg] Dr. Kali Bacon Work Phone: [facility] 03-16-2023 00:43-0400 Body mass index (BMI) [Ratio] 31.8 kg/m2 Dr. Kali Bacon Work Phone: [facility] 03-16-2023 00:43-0400 Body temperature 97 [degF] Dr. Kali Bacon Work Phone: [facility] 03-16-2023 00:43-0400 Body weight 81.[address] Kali Bacon Work Phone: [facility] 03-16-2023 00:43-0400 Diastolic blood pressure 83 mm[Hg] Dr. Kali Bacon Work Phone: [facility] 03-16-2023 00:43-0400 Heart rate 87 /min Dr. Kali Bacon Work Phone: [facility] 03-16-2023 00:43-0400 Respiratory rate 16 /min Dr. Kali Bacon Work Phone: [facility] 03-16-2023 00:43-0400 Systolic blood pressure 176 mm[Hg] Dr. Kali Bacon Work Phone: [facility] 03-11-2023 10:17-0400 Body height 160.[address] Kali Bacon Work Phone: [facility] 03-11-2023 10:17-0400 Body mass index (BMI) [Ratio] 31.8 kg/m2 Dr. Kali Bacon Work Phone: [facility] 03-11-2023 10:17-0400 Body temperature 97 [degF] Dr. Kali Bacon Work Phone: [facility] 03-11-2023 10:17-0400 Body weight 81.[address] Kali Bacon Work Phone: [facility] 03-11-2023 10:17-0400 Diastolic blood pressure 83 mm[Hg] Dr. Kali Bacon Work Phone: [facility] 03-11-2023 10:17-0400 Heart rate 87 /min Dr. Kali Bacon Work Phone: [facility] 03-11-2023 10:17-0400 Respiratory rate 16 /min Dr. Kali Bacon Work Phone: [facility] 03-11-2023 10:17-0400 Systolic blood pressure 176 mm[Hg] Dr. Kali Bacon Work Phone: [facility] 02-10-2023 10:15-0400 Body height 160 cm Kali Bacon MD Work Phone: [facility] 02-10-2023 10:15-0400 Body temperature 96.91 [degF] Kali Bacon MD Work Phone: [facility] 02-10-2023 10:15-0400 Body weight 85 kg Kali Bacon MD Work Phone: [facility] 02-10-2023 10:15-0400 Diastolic blood pressure 78 mm[Hg] Kali Bacon MD Work Phone: [facility] 02-10-2023 10:15-0400 Heart rate 90 /min Kali Bacon MD Work Phone: [facility] 02-10-2023 10:15-0400 Respiratory rate 14 /min Kali Bacon MD Work Phone: [facility] 02-10-2023 10:15-0400 SaO2% (BldA) [Mass fraction] 99 % Kali Bacon MD Work Phone: [facility] 02-10-2023 10:15-0400 Systolic blood pressure 142 mm[Hg] Kali Bacon MD Work Phone: [facility] 01-25-2023 12:55-0400 Body height 160.[address] Kali Bacon Work Phone: [facility] 01-25-2023 12:55-0400 Body mass index (BMI) [Ratio] 32.2 kg/m2 Dr. Kali Bacon Work Phone: [facility] 01-25-2023 12:55-0400 Body weight 82.[address] Kali Bacon Work Phone: [facility] 01-25-2023 12:55-0400 Diastolic blood pressure 80 mm[Hg] Dr. Kali Bacon Work Phone: [facility] 01-25-2023 12:55-0400 Heart rate 92 /min Dr. Kali Bacon Work Phone: [facility] 01-25-2023 12:55-0400 Respiratory rate 18 /min Dr. Kali Bacon Work Phone: [facility] 01-25-2023 12:55-0400 SaO2% (BldA) [Mass fraction] 99 % Dr. Kali Bacon Work Phone: [facility] 01-25-2023 12:55-0400 Systolic blood pressure 140 mm[Hg] Dr. Kali Bacon Work Phone: [facility] 01-14-2023 14:50-0400 Diastolic blood pressure 67 mm[Hg] Tosin Ly DO Work Phone: [facility] 01-14-2023 14:50-0400 Heart rate 94 /min Tosin Ly DO Work Phone: [facility] 01-14-2023 14:50-0400 Respiratory rate 22 /min Tosin Ly DO Work Phone: [facility] 01-14-2023 14:50-0400 SaO2% (BldA) [Mass fraction] 100 % Tosin Ly DO Work Phone: [facility] 01-14-2023 14:50-0400 Systolic blood pressure 134 mm[Hg] Tosin Ly DO Work Phone: [facility] 01-14-2023 14:20-0400 Body temperature 97 [degF] Tosin Ly DO Work Phone: [facility] 01-04-2023 20:02-0400 Diastolic blood pressure 62 mm[Hg] Dr. Kali Bacon Work Phone: [facility] 01-04-2023 20:02-0400 Heart rate 79 /min Dr. Kali Bacon Work Phone: [facility] 01-04-2023 20:02-0400 Respiratory rate 18 /min Dr. Kali Bacon Work Phone: [facility] 01-04-2023 20:02-0400 SaO2% (BldA) [Mass fraction] 98 % Dr. Kali Bacon Work Phone: [facility] 01-04-2023 20:02-0400 Systolic blood pressure 165 mm[Hg] Dr. Kali Bacon Work Phone: [facility] 01-04-2023 19:22-0400 Body mass index (BMI) [Ratio] 34.4 kg/m2 Dr. Kali Bacon Work Phone: [facility] 01-04-2023 19:22-0400 Body weight 88.[address] Kali Bacon Work Phone: [facility] 01-04-2023 18:51-0400 Body temperature 97.2 [degF] Dr. Kali Bacon Work Phone: [facility] 12-22-2022 05:42-0400 Body mass index (BMI) [Ratio] 34.5 kg/m2 Dr. Kali Bacon Work Phone: [facility] 12-22-2022 05:42-0400 Body weight 88.[address] Kali Bacon Work Phone: [facility] 12-22-2022 03:37-0400 Body height 160.[address] Kali Bacon Work Phone: [facility] 12-22-2022 03:37-0400 Body temperature 98.2 [degF] Dr. Kali Bacon Work Phone: [facility] 12-22-2022 03:37-0400 Diastolic blood pressure 76 mm[Hg] Dr. Kali Bacon Work Phone: [facility] 12-22-2022 03:37-0400 Heart rate 88 /min Dr. Kali Bacon Work Phone: [facility] 12-22-2022 03:37-0400 Respiratory rate 18 /min Dr. Kali Bacon Work Phone: [facility] 12-22-2022 03:37-0400 SaO2% (BldA) [Mass fraction] 97 % Dr. Kali Bacon Work Phone: [facility] 12-22-2022 03:37-0400 Systolic blood pressure 156 mm[Hg] Dr. Kali Bacon Work Phone: [facility] 12-10-2022 09:44-0400 Body height 160 cm Elsie Pedraza BROKE HANDLER - GLASS FURNACE TENDER Work Phone: [facility] 12-10-2022 09:44-0400 Body mass index (BMI) [Ratio] 35.61 kg/m2 Elsie Jacksony BROKE HANDLER - [employer]ASS [employer]NACE TENDER Work Phone: [facility] 12-10-2022 09:44-0400 Body temperature 98.2 [degF] Elsie Ezrakohéctory BROKE HANDLER - GLASS FURNACE TENDER Work Phone: [facility] 12-10-2022 09:44-0400 Body weight 91.17 kg Elsie Lucysky BROKE HANDLER - GLASS F[employer]NACE TENDER Work Phone: [facility] 12-10-2022 09:44-0400 Diastolic blood pressure 79 mm[Hg] Elsie Manuely BROKE HANDLER - GLASS FURNACE TENDER Work Phone: [facility] 12-10-2022 09:44-0400 Heart rate 78 /min Elsie Ezrakohéctory BROKE HANDLER - [employer]NACE T[employer]ER Work Phone: [facility] 12-10-2022 09:44-0400 Systolic blood pressure 151 mm[Hg] Elsie Manuely [employer]OKE HANDLER - [employer] T[employer]ER Work Phone: [facility] 11-18-2022 14:53-0400 Body height 160 cm Adrianne Sethi MD Work Phone: [facility] 11-18-2022 14:53-0400 Body mass index (BMI) [Ratio] 34.9 kg/m2 Adrianne Sethi MD Work Phone: [facility] 11-18-2022 14:53-0400 Body temperature 97.3 [degF] Adrianne Sethi MD Work Phone: [facility] 11-18-2022 14:53-0400 Body weight 89.36 kg Adrianne Sethi MD Work Phone: [facility] 11-18-2022 14:53-0400 Diastolic blood pressure 64 mm[Hg] Adrianne Sethi MD Work Phone: [facility] 11-18-2022 14:53-0400 Heart rate 80 /min Adrianne Sethi MD Work Phone: [facility] 11-18-2022 14:53-0400 Systolic blood pressure 140 mm[Hg] Adrianne Sethi MD Work Phone: [facility] 11-10-2022 10:51-0400 Body height 160.[address] Kali Bacon Work Phone: [facility] 11-10-2022 10:51-0400 Body weight 92.[address] Kali Bacon Work Phone: [facility] 11-09-2022 13:09-0400 Body mass index (BMI) [Ratio] 35.9 kg/m2 Dr. Kali Bacon Work Phone: [facility] 11-04-2022 09:32-0400 Body weight 92.[address] aKli Bacon Work Phone: [facility] 11-04-2022 09:32-0400 Diastolic blood pressure 71 mm[Hg] Dr. Kali Bacon Work Phone: [facility] 11-04-2022 09:32-0400 Heart rate 83 /min Dr. Kali Bacon Work Phone: [facility] 11-04-2022 09:32-0400 Respiratory rate 18 /min Dr. Kali Bacon Work Phone: [facility] 11-04-2022 09:32-0400 Systolic blood pressure 149 mm[Hg] Dr. Kali Bacon Work Phone: [facility] 10-29-2022 15:49-0400 Body mass index (BMI) [Ratio] 36.1 kg/m2 Dr. Kali Bacon Work Phone: [facility] 10-29-2022 15:49-0400 Body weight 92.[address] Kali Bacon Work Phone: [facility] 10-29-2022 15:49-0400 Diastolic blood pressure 69 mm[Hg] Dr. Kali Bacon Work Phone: [facility] 10-29-2022 15:49-0400 Systolic blood pressure 157 mm[Hg] Dr. Kali Bacon Work Phone: [facility] 10-08-2022 05:47-0500 Diastolic blood pressure 81 mm[Hg] Dr. Kali Bacon Work Phone: [facility] 10-08-2022 05:47-0500 Heart rate 74 /min Dr. Kali Bacon Work Phone: [facility] 10-08-2022 05:47-0500 Respiratory rate 20 /min Dr. Kali Bacon Work Phone: [facility] 10-08-2022 05:47-0500 SaO2% (BldA) [Mass fraction] 96 % Dr. Kali Bacon Work Phone: [facility] 10-08-2022 05:47-0500 Systolic blood pressure 175 mm[Hg] Dr. Kali Bacon Work Phone: [facility] 10-08-2022 01:59-0500 Body height 160.[address] Kali Bacon Work Phone: [facility] 10-08-2022 01:59-0500 Body mass index (BMI) [Ratio] 38.2 kg/m2 Dr. Kali Bacon Work Phone: [facility] 10-08-2022 01:59-0500 Body temperature 97.9 [degF] Dr. Kali Bacon Work Phone: [facility] 10-08-2022 01:59-0500 Body weight 97.[address] Kali Bacon Work Phone: [facility] 09-24-2022 08:54-0500 Body temperature 96.8 [degF] Yomaira Mcelroy APRN.GLASS FURNACE TENDER Work Phone: [facility] 09-24-2022 08:54-0500 Body weight 92.9 kg Yomaira Mcelroy APRN.GLASS FURNACE TENDER Work Phone: [facility] 09-24-2022 08:54-0500 Diastolic blood pressure 84 mm[Hg] Yomaira Mcelroy APRN.GLASS FURNACE TENDER Work Phone: [facility] 09-24-2022 08:54-0500 Heart rate 88 /min Yomaira Mcelroy APRN.GLASS FURNACE TENDER Work Phone: [facility] 09-24-2022 08:54-0500 Respiratory rate 14 /min Yomaira Mcelroy APRN.GLASS FURNACE TENDER Work Phone: [facility] 09-24-2022 08:54-0500 SaO2% (BldA) [Mass fraction] 99 % Yomaira Mcelroy APRN.GLASS FURNACE TENDER Work Phone: [facility] 09-24-2022 08:54-0500 Systolic blood pressure 138 mm[Hg] Yomaira Mcelroy APRN.GLASS FURNACE TENDER Work Phone: [facility] 09-08-2022 11:01-0500 Body height 160.[address] Kali Bacon Work Phone: [facility] 09-08-2022 10:59-0500 Body mass index (BMI) [Ratio] 36.3 kg/m2 Dr. Kali Bacon Work Phone: [facility] 09-08-2022 10:59-0500 Body weight 93.[address] Kali Bacon Work Phone: [facility] 09-08-2022 10:59-0500 Diastolic blood pressure 84 mm[Hg] Dr. Kali Bacon Work Phone: [facility] 09-08-2022 10:59-0500 Systolic blood pressure 128 mm[Hg] Dr. Kali Bacon Work Phone: [facility] 07-30-2022 09:10-0500 Body height 160 cm Kali Bacon MD Work Phone: [facility] 07-30-2022 09:10-0500 Body temperature 97.11 [degF] Kali Bacon MD Work Phone: [facility] 07-30-2022 09:10-0500 Body weight 90.08 kg Kali Bacon MD Work Phone: [facility] 07-30-2022 09:10-0500 Diastolic blood pressure 76 mm[Hg] Kali Bacon MD Work Phone: [facility] 07-30-2022 09:10-0500 Heart rate 76 /min Kali Bacon MD Work Phone: [facility] 07-30-2022 09:10-0500 Respiratory rate 18 /min Kali Bacon MD Work Phone: [facility] 07-30-2022 09:10-0500 SaO2% (BldA) [Mass fraction] 98 % Kali Bacon MD Work Phone: [facility] 07-30-2022 09:10-0500 Systolic blood pressure 126 mm[Hg] Kali Bacon MD Work Phone: [facility] 04-01-2017 08:28-0400 BMI (Body Mass Index) 34.29 kg/m2 Chanda Sanz [facility] 04-01-2017 08:28-0400 Body Temperature 97.1 [degF] Chanda Sanz HYDROLOGIC MODELER [facility] 04-01-2017 08:28-0400 Body Temperature 97.11 [degF] Chanda Sanz HYDROLOGIC MODELER [facility] 04-01-2017 08:28-0400 BP Diastolic 93 mm[Hg] Chanda Sanz NP [facility] 04-01-2017 08:28-0400 BP Systolic 156 mm[Hg] Chanda Sanz HYDROLOGIC MODELER [facility] 04-01-2017 08:28-0400 Height 160.02 cm Chanda Sanz NP [facility] 04-01-2017 08:28-0400 Pulse (Heart Rate) 68 /min Chanda Sanz NP [facility] 04-01-2017 [id number] Respiratory Rate 16 /min Chanda Sanz NP [facility] 04-01-2017 [id number] Weight 87.82 kg Chanda Sanz NP [facility] Encounters Encounter Date Encounter Type Care Provider Facility Start: 01-29-2025 End: 01-29-2025 Follow-up encounter Kali Bacon MD Work Phone: [facility] Start: 01-27-2025 End: 01-27-2025 ambulatory KALI BACON Facility:[facility] Start: 01-26-2025 Encounter for other preprocedural examination Dominic Issa [facility] Start: 01-26-2025 End: 01-26-[address] Dominic Issa MD -[facility] Work Phone: Start: 01-26-2025 End: 01-26-[address] Kali Bacon MD Work Phone: [facility] Work Phone: Start: 01-25-2025 End: 01-25-2025 Refill Kali Bacon MD Work Phone: [facility] Comment on above: Refill Request Start: 01-24-2025 End: 01-24-2025 Office outpatient visit 25 minutes Kali Bacon MD Work Phone: [facility] Comment on above: Preop examination (P rimary Dx); Hypomagnesemia; Degeneration of intervertebral disc of lumbar region with discogenic back pain and lower extremity pain; Arteriosclerosis of coronary artery; Essential (primary) hypertension; Type 2 diabetes mellitus without complication, without long-term current use of insulin (HCC); Anemia due to vitamin B12 deficiency, unspecified B12 deficiency type Start: 01-24-2025 End: 01-24-2025 Preprocedural examination done Kali Bacon MD Work Phone: [facility] Work Phone: Start: 01-24-2025 End: 01-24-2025 ambulatory KALI BACON Facility:[id number] Start: 01-16-2025 Non-patient / Non-visit Dr. Sandor Gilbert MD -[facility] Start: 01-16-2025 End: 01-16-[address] Kali Bacon MD Work Phone: [facility] Work Phone: Start: 01-16-2025 End: 01-16-2025 Patient encounter procedure Genesis GRIGGS -[facility]asc[facility] Services Work Phone: Start: 01-16-2025 End: 01-16-2025 ambulatory Kali Bacon Facility:[facility] Start: 12-28-2024 End: 12-28-2024 Patient encounter procedure [facility] Provider [facility] inic Department Start: 12-26-2024 End: 12-26-2024 Telephone encounter Kali Bacon MD Work Phone: [facility] Comment on above: Patient Question Start: 12-26-2024 End: 12-26-2024 ambulatory Injection Goyo [facility] Work Phone: Hematology/Oncology Comment on above: Other dietary vitami n B12 deficiency anemia (Primary Dx) Start: 12-25-2024 End: 12-25-[address] Dominic Issa MD -[facility] Work Phone: Start: 12-25-2024 End: 12-25-2024 ambulatory Dominic Issa Facility:[facility] Start: 12-06-2024 End: 12-06-2024 Refill Kali Bacon MD Work Phone: [facility] [place] Comment on above: Refill Request Start: 11-28-2024 End: 11-29-2024 Patient encounter procedure [facility] Provider [facility] inic Department Start: 11-28-2024 End: 11-28-2024 ambulatory Leo Rubio Facility:[facility] Start: 11-28-2024 End: 11-28-2024 ambulatory Injection Goyo [facility] Work Phone: Hematology/Oncology Comment on above: Other dietary vitami n B12 deficiency anemia (Primary Dx) Start: 11-25-2024 End: 11-25-2024 ambulatory KALI BACON Facility:[facility] Start: 11-21-2024 End: 11-21-2024 Follow-up encounter Spring Shipley LPN [facility] Comment on above: Results Start: 11-21-2024 End: 11-30-2024 Telephone encounter Fanny Perezight Work Phone: Hematology/Oncology Comment on above: Patient Question Start: 11-21-2024 End: 11-21-2024 ambulatory Injection Goyo [facility] Work Phone: Hematology/Oncology Comment on above: Other dietary vitami n B12 deficiency anemia (Primary Dx) Start: 11-20-2024 End: 11-20-2024 Subsequent hospital visit by physician Marcia Patel Work Phone: [facility] Comment on above: Right arm pain [M79. 601] Start: 11-20-2024 End: 11-20-2024 Office outpatient visit 15 minutes Kali Bacon MD Work Phone: [facility] Comment on above: Right arm pain (Prim abdirashid Dx); Muscle strain of right upper arm, initial encounter; Anemia due to vitamin B12 deficiency, unspecified B12 deficiency type Start: 11-20-2024 End: 11-20-2024 ambulatory KALI BACON Facility:[id number] Start: 11-16-2024 End: 01-16-2025 Follow-up encounter Halie Jin APRN.CNP Work Phone: General Surgery Start: 11-15-2024 ambulatory MONICA BEY Facility:[facility] Start: 11-15-2024 End: 11-15-2024 Subsequent hospital visit by physician Marce Larkin MD Work Phone: [facility] End[facility] Comment on above: Iron deficiency anem ia, unspecified iron deficiency anemia type [D50.9] Start: 11-14-2024 End: 11-14-2024 ambulatory Injection Goyo c [facility] Work Phone: Hematology/Oncology Comment on above: Other dietary vitami n B12 deficiency anemia (Primary Dx) Start: 11-08-2024 End: 11-08-2024 Admission to same day surgery center [facility] Provider General Surgery Comment on above: Colonoscopy Instruct ions Start: 11-08-2024 End: 11-08-2024 E-mail encounter from caregiver [facility] Provider General Surgery Start: 11-06-2024 End: 11-21-2024 ambulatory Fanny Barron Work Phone: Hematology/Oncology Comment on above: Other dietary vitami n B12 deficiency anemia (Primary Dx); Iron deficiency anemia, unspecified iron deficiency anemia type; Other iron deficiency anemia Start: 11-06-2024 End: 11-06-2024 Patient encounter procedure Fanny Barron Work Phone: Hematology/Oncology Start: 11-04-2024 End: 11-04-2024 ambulatory FANNY BARRON Facility:[facility] Start: 11-03-2024 End: 11-03-2024 Orders Only Fanny Barron Work Phone: Hematology/Oncology Comment on above: Iron deficiency anem ia, unspecified iron deficiency anemia type (Primary Dx); Other iron deficiency anemia Start: 10-25-2024 End: 10-25-[address] Kali Bacon MD Work Phone: [facility] Work Phone: Start: 10-25-2024 End: 10-25-[address] Monica Rothman DO -Laboratory, Specimen Work Phone: Start: 10-25-2024 End: 10-25-[address] Monica Rothman DO -[facility] Work Phone: Start: 10-25-2024 End: 10-25-2024 ambulatory Kali Bacon Facility:[facility] Start: 10-24-2024 End: 10-25-2024 Patient Outreach Lovely Polk RN [facility] Comment on above: Weekly phone contact (Recurring) for Transitional Care Management Start: 10-19-2024 Encounter for other preprocedural examination Dominic Issa [facility] Start: 10-17-2024 End: 10-17-2024 Patient Outreach Lovely Polk RN [facility] Comment on above: Weekly phone contact (Recurring) for Transitional Care Management Start: 10-11-2024 End: 10-11-[address] Kali Bacon MD Work Phone: [facility] Work Phone: Start: 10-11-2024 End: 10-11-[address] Shawn Cohen MD -Laboratory Work Phone: Start: 10-10-2024 End: 10-11-2024 ambulatory Lovely Polk RN [facility] Start: 10-10-2024 End: 10-10-2024 Follow-up encounter Mike GRIGGS Work Phone: [facility] Comment on above: Weekly phone contact (Recurring) for Transitional Care Management Start: 10-09-2024 End: 10-09-2024 ambulatory KALI BACON Facility:[facility] Start: 10-09-2024 End: 10-09-2024 Patient encounter procedure Chula Valentine BROKE HANDLER.GLASS FURNACE TENDER Work Phone: [facility] Comment on above: Vaginal itching (Jesi janessa Dx); H/O pyelonephritis Start: 10-03-2024 End: 10-03-2024 ambulatory Lovely Polk RN [facility] Comment on above: Weekly phone contact (Recurring) for Transitional Care Management Start: 10-02-2024 End: 10-02-2024 Transitional care manage srvc 7 day discharge Kali Bacon MD Work Phone: [facility] [place] Comment on above: Encounter for suppor t and coordination of transition of care (Primary Dx); Acute pyelonephritis; Sepsis due to Escherichia coli without acute organ dysfunction (HCC); Type 2 diabetes mellitus without complication, without long-term current use of insulin (HCC); Visit for suture removal Start: 10-02-2024 End: 10-02-2024 Patient Outreach Lovely Polk RN [facility] Comment on above: Started Initial phon e contact for Transitional Care Management Start: 09-25-2024 End: 09-25-2024 Follow-up encounter Ramos L Will BURCIAGA [facility] Start: 09-25-2024 End: 09-29-2024 Evaluation and management of inpatient AMBAR DAVIDSON Facility:[facility] Start: 09-21-2024 End: 09-21-[address] Dominic Issa MD -Outpatient Breast Imaging Work Phone: Start: 09-20-2024 End: 09-20-2024 Patient encounter procedure Kali Bacon MD Work Phone: [facility] Comment on above: Change in mole (Prim abdirashid Dx) Start: 09-20-2024 End: 09-21-2024 ambulatory KALI BACON Facility:[id number] Start: 09-18-2024 End: 09-18-2024 Patient encounter procedure Chanda Sanz NP-C -Laboratory, Specimen Work Phone: Start: 09-18-2024 End: 09-18-2024 Patient encounter procedure Chanda Sanz NP-C -[facility] Work Phone: Start: 09-18-2024 End: 09-18-2024 Patient encounter status Chanda Sanz NP-C [facility] Start: 09-18-2024 End: 09-18-2024 Refill Kali Bacon MD Work Phone: [facility] Comment on above: Refill Request Start: 09-18-2024 End: 09-18-2024 ambulatory Kali Bacon Facility:[facility] Start: 09-16-2024 End: 09-16-2024 ambulatory KALI BACON Facility:[facility] Start: 09-16-2024 End: 09-16-2024 Office outpatient visit 25 minutes Daly Fajardo MD Work Phone: [facility] Comment on above: URI, acute (Primary Dx); Asthma with acute exacerbation, unspecified asthma severity, unspecified whether persistent Start: 09-15-2024 End: 09-15-2024 Refill Kali Bacon MD Work Phone: [facility] Comment on above: Refill Request Start: 09-15-2024 End: 12-01-2024 Telephone encounter Halie Jin APRN.GLASS FURNACE TENDER Work Phone: General Surgery Comment on above: 11-15-2024 Colon EGD Start: 09-14-2024 End: 09-14-2024 ambulatory FANNY BARRON Facility:[facility] Start: 09-14-2024 End: 09-14-2024 Patient encounter procedure Halie Jin APRN.GLASS FURNACE TENDER Work Phone: General Surgery Comment on above: Family history of co reginald cancer (Primary Dx); Iron deficiency anemia, unspecified iron deficiency anemia type Start: 09-13-2024 End: 09-13-2024 Telephone encounter Kali Bacon MD Work Phone: [facility] Start: 09-11-2024 End: 09-11-2024 ambulatory Treatment Rm 16 Goyo [facility] Work Phone: Hematology/Oncology Comment on above: Iron deficiency anem ia, unspecified iron deficiency anemia type (Primary Dx) Start: 09-11-2024 Non-patient / Non-visit Dr. Jamari Rubio MD -[facility] Work Phone: Start: 09-11-2024 End: 09-11-2024 Patient encounter procedure Migdalia GRIGGS -Pulmonary Services/Neurology Work Phone: Start: 09-11-2024 End: 09-11-2024 ambulatory Kali Bacon Facility:[facility] Start: 09-08-2024 End: 09-08-2024 ambulatory Treatment Rm 17 Goyo [facility] Work Phone: Hematology/Oncology Comment on above: Other iron deficienc y anemia (Primary Dx); Iron deficiency anemia, unspecified iron deficiency anemia type Start: 09-08-2024 End: 09-08-2024 Refill Kali Bacon MD Work Phone: [facility] Comment on above: Refill Request Start: 09-06-2024 End: 09-06-2024 ambulatory Treatment Rm 14 Goyo [facility] Work Phone: Hematology/Oncology Comment on above: Iron deficiency anem ia, unspecified iron deficiency anemia type (Primary Dx) Start: 09-06-2024 End: 09-06-2024 ambulatory Kali Bacon Facility:[facility] Start: 09-06-2024 End: 09-06-2024 Patient encounter procedure Migdalia GRIGGS -[facility] Work Phone: Start: 09-05-2024 End: 09-05-2024 Subsequent hospital visit by physician [facility] Start: 09-05-2024 End: 09-05-2024 ambulatory Fanny Barron Work Phone: Hematology/Oncology Comment on above: Iron deficiency anem ia, unspecified iron deficiency anemia type (Primary Dx); Anemia, unspecified type Start: 09-05-2024 End: 09-05-2024 Patient encounter procedure Fanny Barron Work Phone: Hematology/Oncology Start: 09-04-2024 End: 09-04-2024 Office outpatient visit 15 minutes Kali Bacon MD Work Phone: [facility] Comment on above: Diabetes mellitus ty pe 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 (HCC) (Primary Dx); Change in mole Start: 09-04-2024 End: 09-04-2024 ambulatory KALI BACON Facility:[id number] Start: 09-03-2024 End: 09-03-2024 ambulatory KALI BACON Facility:[facility] Start: 09-03-2024 End: 09-03-2024 Patient encounter procedure Mike GRIGGS Work Phone: [facility] Comment on above: Frequency of urinati on (Primary Dx) Start: 09-01-2024 End: 09-01-2024 ambulatory Treatment Rm 14 Goyo [facility] Work Phone: Hematology/Oncology Comment on above: Iron deficiency anem ia, unspecified iron deficiency anemia type (Primary Dx) Start: 09-01-2024 ambulatory Dominic Issa Facility:[facility] Start: 08-31-2024 End: 08-31-2024 Non-patient / Non-visit Dr. Yany Armendariz MD -[facility] Work Phone: Start: 08-31-2024 End: 09-01-2024 Admission to same day surgery center Dr. Dominic Issa MD -Surgical Day Care Start: 08-31-2024 End: 09-01-[address] Kali Bacon MD Work Phone: [facility] Work Phone: Start: 08-30-2024 End: 08-30-2024 ambulatory Treatment Rm 16 Goyo [facility] Work Phone: Hematology/Oncology Comment on above: Iron deficiency anem ia, unspecified iron deficiency anemia type (Primary Dx) Start: 08-25-2024 End: 08-29-2024 Refill Kali Bacon MD Work Phone: [facility] Comment on above: Refill Request Start: 2024 End: 2024 Telephone encounter Kali Bacon MD Work Phone: [facility] Start: 08-22-2024 End: 08-22-2024 Patient encounter procedure Ccf Provider [facility] in Department Start: 08-22-2024 End: 08-22-2024 Telephone encounter [facility] MD [facility] Start: 08-21-2024 End: 08-21-2024 Office outpatient visit 25 minutes Kali Bacon MD [facility] Comment on above: Preop examination (P rimary Dx); Degeneration of intervertebral disc of lumbar region with discogenic back pain; Anemia, unspecified type Start: 08-21-2024 End: 08-21-2024 Preprocedural examination done Kali Bacon MD Work Phone: [facility] Start: 08-21-2024 End: 08-21-2024 ambulatory KALI BACON Facility:[id number] Start: 08-21-2024 ambulatory Kali Bacon Facility: [facility] Start: 08-18-2024 End: 08-18-2024 Patient encounter procedure Ccf Provider [facility] in Department Start: 08-14-2024 End: 08-14-2024 Telephone encounter Kali Bacon MD Work Phone: [facility] Comment on above: Results Start: 08-13-2024 End: 08-13-2024 Telephone encounter Kali Bacon MD Work Phone: [facility] Start: 07-27-2024 End: 07-27-2024 ambulatory KALI BACON Facility:[facility] Start: 07-26-2024 End: 07-26-2024 ambulatory KALI JENNIFER BACON Facility:[id number] Start: 07-23-2024 End: 07-24-2024 Refill Kali Bacon MD Work Phone: [facility] Comment on above: Refill Request Start: 07-20-2024 End: 07-21-2024 Patient encounter procedure Ccf Provider [facility] inic Department Start: 07-20-2024 End: 07-20-2024 ambulatory Dominic Issa Facility:[facility] Start: 07-17-2024 End: 07-17-[address] Dominic Issa MD -[facility] Work Phone: Start: 07-17-2024 End: 07-17-2024 ambulatory Dominic Issa Facility:[facility] Start: 07-12-2024 ambulatory Abraham Gilbert Facility:[facility] Start: 07-12-2024 Non-patient / Non-visit Dr. Sandor Gilbert MD -[facility] Start: 07-12-2024 End: 07-12-2024 Patient encounter procedure Genesis GRIGGS -[facility]asc[facility] lar Services Work Phone: Start: 07-12-2024 End: 07-12-2024 ambulatory Genesis Carbajal Facility:[facility] Start: 05-10-2024 End: 05-10-2024 ambulatory Migdalia GRIGGS Facility:[facility] Start: 05-03-2024 End: 05-03-2024 ambulatory Kali Bacon Facility:[facility] Start: 05-03-2024 End: 05-03-2024 ambulatory Migdalia GRIGGS Facility:[facility] Start: 04-12-2024 End: 04-12-2024 ambulatory Estephania Ayon RN [facility] Ambulatory Car e Comment on above: Primary Care Coordin ator Chronic Care (Gap closure) Start: 03-14-2024 Patient encounter procedure [facility] Department Start: 02-28-2024 Patient encounter procedure [facility] Department Start: 02-23-2024 End: 02-23-2024 ambulatory Dominic Issa Facility:[facility] Start: 02-16-2024 End: 02-16-2024 Office outpatient visit 25 minutes Kali Bacon MD Work Phone: [facility] Comment on above: Hypertension, unspec ified type (Primary Dx); Type 2 diabetes mellitus without complication, without long-term current use of insulin (HCC); Pure hypercholesterolemia; 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); Arteriosclerosis of coronary artery; Paroxysmal atrial fibrillation (HCC); Stenosis of carotid artery, unspecified laterality; Internal carotid artery stent present; Side effect of medication Start: 02-16-2024 End: 02-16-2024 ambulatory KALI BACON Facility:[id number] Start: 02-15-2024 Refill Kali Smith MD Work Phone: [facility] Comment on above: Refill Request Start: 02-10-2024 End: 02-10-2024 ambulatory Kali Bacon Facility:[facility] Start: 02-09-2024 ambulatory Abraham Gilbert Facility:[facility] Start: 02-09-2024 End: 02-09-2024 ambulatory Genesis Carbajal Facility:[facility] Start: 02-07-2024 Telephone encounter Kali Bacon MD Work Phone: [facility] Comment on above: Referral Request Start: 02-03-2024 End: 02-03-2024 ambulatory Dominic Issa Facility:[facility] Start: 01-28-2024 ambulatory Kaela Carter [facility] Inside [employer] Start: 01-27-2024 Patient encounter procedure [facility] Department Start: 01-25-2024 Patient encounter procedure [facility] Department Start: 01-24-2024 End: 01-24-2024 Office outpatient visit 25 minutes Kali Baocn MD Work Phone: [facility] Comment on above: Pure hypercholestero lemia (Primary Dx); Hypertension, unspecified type; 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); Arteriosclerosis of coronary artery; Paroxysmal atrial fibrillation (HCC); Mild intermittent asthma without complication; Polyarthralgia Start: 11-12-2023 End: 11-12-[address] Kali Bacon Work Phone: [facility] Work Phone: Start: 11-12-2023 End: 11-12-[address] Kali Bacon Work Phone: [facility] Work Phone: Start: 11-01-2023 End: 11-01-2023 Office outpatient visit 15 minutes Kali Bacon MD Work Phone: [facility] Comment on above: Rash (Primary Dx) Start: 10-27-2023 End: 10-27-[address] Kali Bacon Work Phone: [facility] Work Phone: Start: 10-27-2023 End: 10-27-[address] Kali Bacon Work Phone: [facility] Work Phone: Start: 10-18-2023 Non-patient / Non-visit Dr. Ra dandy Bacon Work Phone: [facility] Start: 10-18-2023 End: 10-18-[address] Kali Bacon Work Phone: [facility] Work Phone: Start: 10-18-2023 End: 10-18-[address] Kali [facility] Work [facility] Start: 10-12-2023 End: 10-12-[address] Kali Bacon Work Phone: [facility] Work Phone: Start: 09-17-2023 End: 09-17-[address] Kali Bacon [facility] Work Phone: Start: 09-17-2023 End: 09-17-[address] Kali Bacon Work Phone: [facility] Work Phone: Start: 09-15-2023 End: 09-15-[address] Kali Bacon Work Phone: [facility] Work Phone: Start: 09-15-2023 End: 09-15-[address] Kali Bacon Work Phone: [facility]-Laboratory Work Phone: Start: 08-19-2023 End: 08-19-2023 ambulatory [facility] Work Phone: Start: 08-19-2023 End: 08-19-2023 Patient encounter procedure [facility] Work Phone: Start: 07-21-2023 End: 07-21-2023 Patient encounter procedure Kali Bacon MD Work Phone: [facility] Comment on above: Wellness examination (Primary Dx); Encounter for screening for depression; Encounter for counseling regarding advance directives; Hypertension, unspecified type; Essential (primary) hypertension; Arteriosclerosis of coronary artery; Paroxysmal atrial fibrillation (HCC); 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); Screening for deficiency anemia; Pure hypercholesterolemia Start: 07-21-2023 End: 07-21-2023 Patient encounter status Kali Bacon MD Work Phone: [facility] Work Phone: Start: 07-14-2023 Telephone encounter Lauren Bassett MA [facility] Comment on above: Orders (Kiana Londono , this pt is due for A1C labs at their next ov 07/21. ) Start: 07-12-2023 End: 07-12-2023 Office outpatient visit 15 minutes Kali Bacon MD Work Phone: [facility] Comment on above: Hypertension, essent ial (Primary Dx); Pure hypercholesterolemia Start: 07-10-2023 End: 07-10-2023 Patient encounter procedure Marva Madera BROKE HANDLER.GLASS FURNACE TENDER Work Phone: [facility] Comment on above: Hypertension, unspec ified type (Primary Dx) Start: 06-29-2023 Patient encounter procedure Ccf Prov ider [facility] Department Start: 06-24-2023 End: 06-24-2023 Patient encounter procedure Savita Miller BROKE HANDLER.GLASS FURNACE TENDER Work Phone: [facility] Comment on above: Rash (Primary Dx); Tinea cruris Start: 06-14-2023 Telephone encounter Anum louis [employer]OKE HANDLER.GLASS FURNACE TENDER Work Phone: OB/Gynecology Comment on above: Insurance Authorizat ion Start: 06-12-2023 End: 06-12-2023 Patient encounter procedure Anum Davis BROKE HANDLER.GLASS FURNACE TENDER Work Phone: [facility] Comment on above: Skin yeast infection (Primary Dx) Start: 05-25-2023 Refill Kali Smith MD Work Phone: [facility] [place] Comment on above: Refill Request Start: 05-18-2023 Telephone encounter Marva Madera BROKE HANDLER.GLASS FURNACE TENDER Work Phone: [facility] Comment on above: Results Start: 05-17-2023 End: 05-17-2023 Patient encounter procedure Marva Madera BROKE HANDLER.GLASS FURNACE TENDER Work Phone: [facility] Comment on above: Urinary frequency (P rimary Dx) Start: 04-20-2023 End: 04-20-2023 Patient encounter procedure Ramses Shukla [employer]OKE HANDLER.GLASS FURNACE TENDER Work Phone: Gastroenterology Comment on above: Belching (Primary Dx ); Bloating; Bile reflux gastritis Start: 04-16-2023 Telephone encounter Chula serna [employer]OKE HANDLER.GLASS FURNACE TENDER Work Phone: Urgent Care Comment on above: Patient Update; Medi cation Problem Start: 04-14-2023 End: 04-14-2023 Patient encounter procedure Chula Valentine [employer]OKE HANDLER.GLASS FURNACE TENDER Work Phone: [facility] Comment on above: UTI symptoms (Primar y Dx); Otitis externa of both ears, unspecified chronicity, unspecified type Start: 04-13-2023 Telephone encounter Tosin Arredondo DO Work Phone: Gastroenterology Comment on above: Patient Update Start: 04-08-2023 Non-patient / Non-visit Dr. Ra dandy Bacon Work Phone: [facility] Work Phone: Start: 04-08-2023 End: 04-15-[address] Kali Bacon Work Phone: [facility] Work Phone: Start: 04-08-2023 End: 04-15-[address] Kali Bacon Work Phone: [facility] Work Phone: Start: 04-07-2023 End: 04-07-[address] Kali Bacon Work Phone: [facility] Work Phone: Start: 04-06-2023 Refill Kali Smith MD Work Phone: [facility] Comment on above: Refill Request Start: 04-02-2023 End: 04-02-[address] Kali Bacon Work Phone: [facility] Work Phone: Start: 04-02-2023 End: 04-02-[address] Kali Bacon [facility] Work Phone: Start: 03-30-2023 Telephone encounter Kali Bacon MD Work Phone: [facility] Comment on above: Patient Question Start: 03-25-2023 Non-patient / Non-visit Dr. Ra dandy Bacon Work Phone: [facility] Work Phone: Start: 03-25-[address] Huber Bacon Work Phone: [facility] Work Phone: Start: 03-18-2023 Non-patient / Non-visit Dr. Ra dandy Bacon Work Phone: [facility] Work Phone: Start: 03-18-[address] Huber Bacon [facility] Work Phone: Start: 03-15-2023 End: 03-15-[address] Kali Bacon Work Phone: [facility] Work Phone: Start: 03-15-2023 End: 03-15-[address] Kali Bacon Work Phone: [facility]-Laboratory Work Phone: Start: 03-12-2023 End: 03-12-2023 Non-patient / Non-visit Dr. Kali Bacon Work Phone: [facility] Work Phone: Start: 03-12-2023 End: 03-12-[address] Kali Bacon Work Phone: [facility] Work Phone: Start: 03-12-2023 End: 03-12-[address] Kali Bacon Work Phone: [facility]-Pulmonary Services/Neurology Work Phone: Start: 03-11-2023 Non-patient / Non-visit Dr. Ra dandy [facility] Work Phone: Start: 03-11-2023 End: 03-15-[address] Kali Bacon Work Phone: [facility] Work Phone: Start: 03-11-2023 End: 03-15-[address] Kali Bacon Work Phone[facility] Work Phone: Start: 02-23-2023 Patient encounter procedure Ccf Prov ider [facility] Department Start: 02-23-2023 Telephone encounter Kali Bacon MD Work Phone: [facility] Comment on above: Hydrogel gel is excl uded from plan Start: 02-22-2023 Telephone encounter Kali Bacon MD Work Phone: [facility] Comment on above: Surgical Clearance Start: 02-11-2023 End: 02-11-[address] Kali Bacon Work Phone: [facility] Work Phone: Start: 02-11-2023 End: 02-11-[address] Kali Bacon Work Phone: [facility]-Cardiovascular Services Work Phone: Start: 02-10-2023 End: 02-10-2023 Office outpatient visit 15 minutes Kali Bacon MD Work Phone: [facility] Comment on above: Pressure injury of b uttock, stage 3, unspecified laterality (HCC) (Primary Dx) Start: 01-28-2023 Telephone encounter Kali Bacon MD Work Phone: [facility] Comment on above: No PA required for S ymbicort Start: 01-25-2023 End: 01-25-[address] Kali Bacon Work Phone: [facility] Work Phone: Start: 01-18-2023 Telephone encounter Kali Bacon MD Work Phone: [facility] Comment on above: Orders Results Start: 01-14-2023 ambulatory KALI BACON Facility:[facility] Start: 01-14-2023 End: 01-14-2023 Subsequent hospital visit by physician Tosin Arredondo DO Work Phone: Procedures Comment on above: Belching symptom [R1 4.2] Start: 01-06-2023 ambulatory TOSIN ARREDONDO Facility:[facility] Start: 01-06-2023 End: 01-06-2023 Subsequent hospital visit by physician [facility] Work Phone: [facility] Radiology General Comment on above: Belching symptom [R1 4.2] Start: 01-04-2023 End: 01-04-2023 Emergency department patient visit Dr. Kali Bacon Work Phone: [facility]-Emergency Department Work Phone: Start: 12-25-2022 Telephone encounter Kali Bacon MD Work Phone: [facility] Comment on above: Patient Update Start: 12-22-2022 Patient encounter procedure Ccf Prov ider [facility] Department Start: 12-22-2022 End: 12-23-2022 ambulatory [facility] AD[facility] Start: 12-22-2022 End: 12-22-2022 Subsequent hospital visit by physician Monica Bianchi BROKE HANDLER - GLASS FURNACE TENDER Work Phone: [facility] Comment on above: SOB (shortness of br eat) Start: 12-22-2022 End: 12-22-2022 Emergency department patient visit Dr. Kali Bacon Work Phone: [facility]-Emergency Department Start: 12-10-2022 End: 12-10-2022 ambulatory ELSIE PEDRAZA [facility] Start: 12-10-2022 End: 12-10-2022 Postop follow up visit related to original px Elsie AlvaradoArielle Lucyhéctorsuzie BROKE HANDLER - GLASS FURNACE TENDER Work Phone: [facility] Group Cardiovascular & Thoracic Surgery Comment on above: S/P CABG x 3 (Primar y Dx); Coronary 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[place] coronary 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 of angina pectoris (HCC) Start: 12-07-2022 Refill Kali Smith MD Work Phone: [facility] Comment on above: Refill Request Start: 12-03-2022 Orders Only Abraham Harris MD Work Phone: [facility] MA[facility] OR Start: 12-01-2022 End: 12-02-2022 [facility] Start: 11-30-2022 End: 12-01-2022 [facility] Start: 11-29-2022 End: 11-30-2022 Evaluation and management of inpatient Ach Xr Portable 1 [facility] X-[facility] Comment on above: Arrived Start: 11-28-2022 End: 11-29-2022 Evaluation and management of inpatient ISABELLA CRUZ [facility] Start: 11-28-2022 End: 11-28-2022 Evaluation and management of inpatient Ach Xr Portable 1 [facility] X-[facility] Comment on above: Arrived Start: 11-28-2022 End: 11-28-2022 Evaluation and management of inpatient Ach Xr Portable 1 [facility] X-[facility] Comment on above: Arrived Start: 11-27-2022 End: 11-28-2022 [facility] Start: 11-27-2022 End: 11-27-2022 Evaluation and management of inpatient Ach Xr Portable 1 [facility] X-[facility] Comment on above: Arrived Start: 11-26-2022 End: 11-27-2022 [facility] Start: 11-26-2022 End: 11-26-2022 Evaluation and management of inpatient Ach Xr Portable 1 [facility] Comment on above: Arrived Start: 11-26-2022 End: 12-01-2022 Evaluation and management of inpatient ADRIANNE SETHI [facility] Start: 11-25-2022 End: 11-25-[address] Kali Bacon Work Phone: [facility] Work Phone: Start: 11-25-2022 End: 11-25-[address] Kali Bacon Work Phone: [facility]-Laboratory Start: 11-20-2022 End: 11-21-2022 [facility] Start: 11-20-2022 End: 11-20-2022 Subsequent hospital visit by physician Ach Xr Exam Room 1 [facility] X-[facility] Comment on above: Arrived Start: 11-20-2022 End: 11-20-2022 ambulatory KALI BACON [facility] Start: 11-20-2022 End: 11-20-2022 Encounter for other preprocedural examination ADRIANNE SETHI [facility] Start: 11-18-2022 End: 11-19-2022 ambulatory ADRIANNE NOELLEKAY [facility] Start: 11-18-2022 End: 11-18-2022 Office outpatient new 60 minutes Adrianne Sethi MD Work Phone: [facility] Cardiovascular & Thoracic Surgery Comment on above: 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 Ra dandy Bacon Work Phone: [facility] Start: 11-10-2022 End: 11-10-2022 Admission to same day surgery center Dr. Kali Bacon Work Phone: [facility]-Learning And Development Manager/Special Procedures Start: 11-10-2022 End: 11-10-[address] Kali Bacon Work Phone: [facility] Work Phone: Start: 11-04-2022 End: 11-04-2022 Patient encounter procedure Ccf Provider [facility] in Department Start: 10-29-2022 End: 10-29-[address] aKli Bacon Work Phone: [facility] Start: 10-23-2022 Refill Kali Smith MD Work Phone: [facility] [place] Comment on above: Refill Request Start: 10-12-2022 Patient encounter procedure Ccf Prov ider [facility] Department Start: 10-08-2022 End: 10-08-2022 Emergency department patient visit Dr. Kali Bacon Work Phone: [facility]-Emergency Department Start: 10-01-2022 End: 10-01-[address] Kali Bacon Work Phone: [facility] Work Phone: Start: 10-01-2022 End: 10-01-[address] Kali Bacon Work Phone: [facility]-Radiology, [facility] Start: 09-24-2022 End: 09-24-2022 Office outpatient visit 15 minutes Yomaira Mcelroy APRN.[facility] Work Phone: [facility] Comment on above: Acute pain of left s houlder (Primary Dx) Start: 09-09-2022 Refill Kali Smith MD Work Phone: [facility] Comment on above: Refill Request Start: 09-08-2022 End: 09-08-[address] Kali Bacon Work Phone: [facility] Work Phone: Start: 09-08-2022 End: 09-08-[address] Kali Bacon Work Phone: [facility]-Laboratory, Specimen Start: 09-08-2022 End: 09-08-[address] Kali Bacon Work Phone: [facility] Start: 07-30-2022 End: 07-30-2022 Patient encounter procedure Kali Bacon MD Work Phone: [facility] Comment on above: Wellness examination (Primary Dx); Essential (primary) hypertension; Hypercholesterolemia; 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); Mild intermittent asthma without complication; Polyarthralgia Start: 07-30-2022 End: 07-30-2022 Patient encounter status Kali Bacon MD Work Phone: [facility] Start: 07-24-2022 End: 07-24-2022 ambulatory [facility] Work Phone: Start: 07-24-2022 End: 07-24-2022 [facility] Start: 07-01-2022 Chart abstracting [facility] MD [facility] Start: 06-30-2022 Chart abstracting Kali Bacon MD Work Phone: [facility] Start: 06-10-2022 End: 06-10-2022 Patient encounter procedure [facility] Start: 03-06-2022 Telephone encounter Kali Bacon MD Work Phone: [facility] Comment on above: Patient Question Start: 01-20-2022 End: 01-20-2022 Patient encounter procedure [facility] Start: 12-17-2021 End: 12-17-2021 [facility] Start: 10-28-2021 End: 10-28-2021 [facility] Start: 09-26-2021 End: 09-26-2021 Patient encounter procedure [facility], [facility] Procedures Date Procedure Procedure Detail Performing Clinician Start: 12-25-2024 X-ray of lumbosacral spine Dr. Kali bobby MD Work Phone: Start: 11-20-2024 Radex humerus minimum 2 views Kali Bacon MD Work Phone: Start: 11-15-2024 Esophagogastroduodenoscopy transoral diagnostic Halie Jin APRN.GLASS FURNACE TENDER Work Phone: Start: 11-15-2024 Colonoscopy flx dx w/collj spec when pfrmd Halie Jin APRN.GLASS FURNACE TENDER Work Phone: Start: 11-15-2024 Gluc bld gluc mntr dev cleared fda spec home use Abrahameliane Sampson BROKE HANDLER.INSPECTOR [employer]AL [employer] Work Phone: Start: 11-15-2024 Colonoscopy Marce Larkin MD Work Phone: Start: 10-25-[address] Kali Bacon MD Work Phone: Start: 10-09-2024 Urnls dip stick/tablet rgnt auto w/o microscopy Chula Valentine BROKE HANDLER.GLASS FURNACE TENDER Work Phone: Start: 09-21-[address] Kali Bacon MD Work Phone: Start: 09-05-2024 Dxa bone density study 1/> sites axial skel [facility] Provider Start: 09-03-2024 Urnls dip stick/tablet rgnt auto w/o microscopy Mike GRIGGS Work Phone: Start: 08-31-2024 Methicillin resistant Staphylococcus aureus screening test Dr. Kali Bacon MD Work Phone: Start: 07-26-2024 Adult depression screening assessment Kali Bacon MD Work Phone: Start: 07-17-2024 MRI of lumbar spine Dr. Kali Bacon MD Work Phone: Start: 11-12-2023 CT angiography of head and neck Dr. Manda Bacon Work Phone: Start: 09-17-[address] Kali Bacon Work Phone: Start: 09-17-2023 Investigation of transfusion reaction Dr. Kali Bacon Work Phone: Start: 08-19-2023 Screening mammography Start: 05-17-2023 Urnls dip stick/tablet rgnt auto w/o microscopy Marycruz Rockwell APRN.GLASS FURNACE TENDER Work Phone: Start: 04-14-2023 Urnls dip stick/tablet rgnt auto w/o microscopy Marycruz Rockwell APRN.GLASS FURNACE TENDER Work Phone: Start: 01-14-2023 End: 01-14-2023 Cytp slctv cell enhancement interpj xcpt c/v Tosin Ly DO Work Phone: Start: 01-14-2023 Esophagogastroduodenoscopy transoral diagnostic Tosin Ly DO Work Phone: Start: 01-14-2023 Gluc bld gluc mntr dev cleared fda spec home use Huey Skinner MD Start: 01-06-2023 Radiologic exam abdomen 2 views Catherin e Ly DO Work Phone: Start: 12-22-2022 Radiologic exam chest 2 views Monica Jami Bianchi BROKE HANDLER - GLASS F[employer]NACE TENDER Work Phone: Start: 12-22-2022 Diagnostic radiography of abdomen Dr. Ra dandy Bacon Work Phone: Start: 12-10-2022 Follow-up visit Follow-up ELSIE PEDRAZA Start: 11-29-2022 Radiologic exam chest single view Elsie Pedraza BROKE HANDLER - [employer] TENDER Work Phone: Start: 11-28-2022 Radiologic exam abdomen 1 view Isabella Cruz MD Start: 11-28-2022 Radiologic exam chest single view Elsie Pedraza BROKE HANDLER - [employer] TENDER Work Phone: Start: 11-27-2022 Radiologic exam chest single view Elsie Pedraza BROKE HANDLER - [employer] TENDER Work Phone: Start: 11-26-2022 Radiologic exam chest single view Elsie Pedraza BROKE HANDLER - [employer] TENDER Work Phone: Start: 11-20-2022 Lipid 1996 panel - Serum or Plasma Ach 1 Start: 11-14-2022 History of coronary artery bypass grafting History of coronary artery bypass graft x 3 Migdalia GRIGGS Comment on above: SMITH - LAD, SVG - OM, SVG - PDA Dr. Bubba thakkar @ [facility] 11/26/22 Start: 10-08-2022 Plain chest X-ray Dr. Kali Bacon Work Phone: Start: 10-01-2022 Plain X-ray of shoulder Dr. Kali ramirez Work Phone: Start: 06-10-2022 End: 06-10-2022 Screening mammography Start: 12-17-2021 Comprehensive metabolic 2000 panel - Serum or Plasma Kali Bacon MD Work Phone: Start: 12-17-2021 Hemoglobin A1c/Hemoglobin.total in Blood Kali Bacon MD Work Phone: Start: 12-17-2021 Lipid panel Kali Bacon MD Work Phone: Start: 09-26-2021 US urinary tract Start: 04-29-2020 Colonoscopy Kali Bacon MD Work Phone: Start: 04-01-2017 Gynecologic examination Routine gynecological examination Chanda Sanz HYDROLOGIC MODELER Start: 04-01-2017 Screening mammography Mammogram yearly screening Chanda Milans HYDROLOGIC MODELER Start: 04-01-2017 Venereal disease screening Std screening Chanda Kayli s HYDROLOGIC MODELER History of coronary artery bypass grafting S/P CABG x 3 Elsie Pedraza BROKE HANDLER - [employer] TENDER Work Phone: Plan of Treatment Date Care Activity Detail Author Start: 04-29-2030 Screening for malignant neoplasm of colon [facility] Start: 11-15-2029 Screening for malignant neoplasm of colon [facility] Start: 01-24-2026 Annual PCP Team Chronic Disease Visit Annual PCP Team Chronic Disease Visit [facility] Start: 11-20-2025 Annual PCP Team Chronic Disease Visit Annual PCP Team Chronic Disease Visit [facility] Start: 11-20-2025 BP Controlled (<130/80) BP Controlled (<130/80) [facility] Start: 10-02-2025 Annual PCP Team Chronic Disease Visit Annual PCP Team Chronic Disease Visit [facility] Start: 09-21-2025 Screening for malignant neoplasm of breast Mammogram Screening [facility] Start: 09-20-2025 Annual PCP Team Chronic Disease Visit Annual PCP Team Chronic Disease Visit [facility] Start: 09-14-2025 BP Controlled (<130/80) BP Controlled (<130/80) [facility] Start: 09-04-2025 Annual PCP Team Chronic Disease Visit Annual PCP Team Chronic Disease Visit [facility] Start: 08-21-2025 Annual PCP Team Chronic Disease Visit Annual PCP Team Chronic Disease Visit [facility] Start: 08-21-2025 BP Controlled (<130/80) BP Controlled (<130/80) [facility] Start: 07-30-2025 End: 07-30-2025 Patient encounter procedure 07/30/2025 1:10 PM EST [facility] [address] [place] [phone] Kali Bacon MD [address] [place] [address] [facility] Comment on above: AMW Start: 07-27-2025 Hepatitis B surface antibody level LDL Cholesterol [facility] Start: 07-26-2025 Annual PCP Team Chronic Disease Visit Annual PCP Team Chronic Disease Visit [facility] Start: 07-26-2025 Anxiety Screening Anxiety Screening [facility] Start: 07-26-2025 Depression Screening Depression Screening [facility] Start: 05-27-2025 Hemoglobin A1c measurement HbA1C [facility] Start: 04-29-2025 Colonoscopy COLONOSCOPY [facility] Start: 04-29-2025 COLORECTAL CANCER SCREENING COLORECTAL CANCER SCREENING [facility] Start: 04-29-2025 Screening for malignant neoplasm of colon [facility] Start: 03-14-2025 Glaucoma screening Dilated Retinal Exam [facility] Start: 02-15-2025 Annual PCP Team Chronic Disease Visit Annual PCP Team Chronic Disease Visit [facility] Start: 01-31-2025 ambulatory Ambulatory Facility:[facility] Start: 01-30-2025 End: 01-30-2025 ambulatory [facility] Comment on above: CBC/IRON STUDIES/B12/COPPER/ZINC* 3 MO OV/LAB EARLY* QMO B12/2-2* Start: 01-29-2025 End: 04-30-2025 Magnesium [Mass/volume] in Serum or Plasma MAGNESIUM Lab Routine Hypomagnesemia Expected: 01/29/2025, Expires: 04/30/2025 [facility] Work Phone: Comment on above: Expected: 01/29/2025, Expires: Start: 01-25-2025 Hemoglobin A1c measurement HbA1C [facility] Start: 01-24-2025 End: 01-24-2025 Patient encounter procedure [facility] [place] Comment on above: 6 Month Follow Up 6 Month Follow Up- s urgical clearance date of sx 01/31/25 Start: 01-23-2025 Annual PCP Team Chronic Disease Visit Annual PCP Team Chronic Disease Visit [facility] Start: 01-02-2025 End: 01-02-2025 ambulatory 01/02/2025 8:45 AM EDT Infusion Center Hematology/Oncology [address] [place] [address] Wstr, Injection [facility] [address] [place] [address] QMO B12/2-2* Hematology/Oncology Comment on above: QMO B12/2-2* Start: 12-26-2024 End: 12-26-2024 ambulatory 12/26/2024 9:15 AM EDT Infusion Center Hematology/Oncology [address] [place] [address] Wstr, [facility] [address] [place] [address] QMO B12/1-2* Hematology/Oncology Comment on above: QMO B12/1-2* Start: 12-05-2024 End: 12-05-2024 ambulatory 12/05/2024 8:45 AM EDT Infusion Center Hematology/Oncology [address] [place] [address] Wstr, [facility] [address] [place] [address] QMO B12/1-2* Hematology/Oncology Comment on above: QMO B12/1-2* Start: 11-28-2024 End: 11-28-2024 ambulatory Hematology/Oncology Comment on above: B12 QWK B12/4-4* THEN QM O X 2 Start: 11-21-2024 End: 11-21-2024 ambulatory Hematology/Oncology Comment on above: B12 QWK B12/3-4* THEN QM O X 2 Start: 11-15-2024 End: 11-15-2024 Patient encounter procedure [facility] Endoscopy Comment on above: Colon EGD Start: 11-14-2024 End: 11-14-2024 ambulatory 11/14/2024 8:45 AM EDT Infusion Center Hematology/Oncology [address] [place] [address] Wstr, Injection [facility] [address] [place] [address] B12 Hematology/Oncology Comment on above: B12 Start: 11-06-2024 End: 11-06-2024 ambulatory Hematology/Oncology Comment on above: 2MO OV/WALK IN LABS PER PATIENT* CBC/IRON STUDIES* Start: 11-03-2024 End: 02-02-2025 CBC W Auto Differential panel - Blood COMPLETE BLOOD COUNT AND DIFFERENTIAL Lab STAT Iron deficiency anemia, unspecified iron deficiency anemia type Other iron deficiency anemia Expected: 11/03/2024, Expires: 02/02/2025 [facility] Work Phone: Comment on above: Expected: 11/03/2024, Expires: Start: 11-03-2024 End: 02-02-2025 Ferritin [Mass/volume] in Serum or Plasma FERRITIN Lab Routine Iron deficiency anemia, unspecified iron deficiency anemia type Other iron deficiency anemia Expected: 11/03/2024, Expires: 02/02/2025 [facility] Comment on above: Expected: 11/03/2024, Expires: Start: 11-03-2024 End: 02-02-2025 Iron and Iron binding capacity panel - Serum or Plasma IRON AND TIBC Lab Routine Iron deficiency anemia, unspecified iron deficiency anemia type Other iron deficiency anemia Expected: 11/03/2024, Expires: 02/02/2025 [facility] Comment on above: Expected: 11/03/2024, Expires: Start: 10-31-2024 Annual PCP Team Chronic Disease Visit Annual PCP Team Chronic Disease Visit [facility] Start: 10-31-2024 BP Controlled (<130/80) BP Controlled (<130/80) [facility] Start: 10-31-2024 End: 01-30-2025 CBC W Auto Differential panel - Blood COMPLETE BLOOD COUNT AND DIFFERENTIAL Lab STAT Iron deficiency anemia, unspecified iron deficiency anemia type Expected: 10/31/2024 (Approximate), Expires: 01/30/2025 [facility] Comment on above: Expected: 10/31/2024 (Approximate), Expi res: 01/30/2025 Start: 10-31-2024 End: 01-30-2025 Cobalamin (Vitamin B12) [Mass/volume] in Serum or Plasma VITAMIN B12 Lab Routine Iron deficiency anemia, unspecified iron deficiency anemia type Expected: 10/31/2024 (Approximate), Expires: 01/30/2025 [facility] Comment on above: Expected: 10/31/2024 (Approximate), Expi res: 01/30/2025 Start: 10-31-2024 End: 01-30-2025 Comprehensive metabolic 2000 panel - Serum or Plasma COMPREHENSIVE METABOLIC PANEL Lab Routine Iron deficiency anemia, unspecified iron deficiency anemia type Expected: 10/31/2024 (Approximate), Expires: 01/30/2025 [facility] Comment on above: Expected: 10/31/2024 (Approximate), Expi res: 01/30/2025 Start: 10-31-2024 End: 01-30-2025 COPPER BLOOD COPPER BLOOD Lab Routine Iron deficiency anemia, unspecified iron deficiency anemia type Expected: 10/31/2024 (Approximate), Expires: 01/30/2025 [facility] Comment on above: Expected: 10/31/2024 (Approximate), Expi res: 01/30/2025 Start: 10-31-2024 End: 01-30-2025 Ferritin [Mass/volume] in Serum or Plasma FERRITIN Lab Routine Iron deficiency anemia, unspecified iron deficiency anemia type Expected: 10/31/2024 (Approximate), Expires: 01/30/2025 [facility] Work Phone: Comment on above: Expected: 10/31/2024 (Approximate), Expi res: 01/30/2025 Start: 10-31-2024 End: 01-30-2025 Folate [Mass/volume] in Serum or Plasma FOLATE, SERUM Lab Routine Iron deficiency anemia, unspecified iron deficiency anemia type Expected: 10/31/2024 (Approximate), Expires: 01/30/2025 [facility] Comment on above: Expected: 10/31/2024 (Approximate), Expi res: 01/30/2025 Start: 10-31-2024 End: 01-30-2025 Iron and Iron binding capacity panel - Serum or Plasma IRON AND TIBC Lab Routine Iron deficiency anemia, unspecified iron deficiency anemia type Expected: 10/31/2024 (Approximate), Expires: 01/30/2025 [facility] Comment on above: Expected: 10/31/2024 (Approximate), Expi res: 01/30/2025 Start: 10-31-2024 End: 01-30-2025 Methylmalonate [Moles/volume] in Serum or Plasma METHYLMALONIC ACID Lab Routine Iron deficiency anemia, unspecified iron deficiency anemia type Anemia, unspecified type Expected: 10/31/2024 (Approximate), Expires: 01/30/2025 [facility] Comment on above: Expected: 10/31/2024 (Approximate), Expi res: 01/30/2025 Start: 10-31-2024 End: 01-30-2025 Zinc [Mass/volume] in Serum or Plasma ZINC BLD Lab Routine Iron deficiency anemia, unspecified iron deficiency anemia type Expected: 10/31/2024 (Approximate), Expires: 01/30/2025 [facility] Comment on above: Expected: 10/31/2024 (Approximate), Expi res: 01/30/2025 Start: 10-29-2024 Covid-19 Vaccine ( season) Covid-19 Vaccine () [facility] Start: 10-25-2024 Bacteria identified in Urine by Culture Urine Culture [facility] Start: 10-25-2024 [facility] Start: 10-02-2024 End: 10-02-2024 Patient encounter procedure 10/02/2024 1:10 PM EST Office Visit [facility] [address] [place] [address] Kali Bacon MD [address] [place], [place] [phone] Suture Removal [facility] Comment on above: Suture Removal Start: 09-20-2024 End: 09-20-2024 Patient encounter procedure 09/20/2024 1:00 PM EST Office Visit [facility] [address] [place] [phone] Kali Bacon MD [address] [place], [place] [address] Mole Biopsy [facility] Comment on above: Mole Biopsy Start: 09-18-2024 End: 09-18-2024 Patient encounter procedure 09/18/2024 2:10 PM EST Office Visit [facility] [address] [place] [phone] Kali Bacon MD [address] [place], [place] [phone] Mole Biopsy [facility] Comment on above: Mole Biopsy Start: 09-14-2024 End: 09-14-2024 Patient encounter procedure General Surgery Comment on above: Iron deficiency anemia, unspecified iron deficiency anemia type [D50.9] Referral Hematology Due for Colonoscopy last 04/29/2020 [facility] Start: 09-11-2024 End: 09-11-2024 ambulatory 09/11/2024 11:00 AM EST Infusion Center Hematology/Oncology [address] [place] [address] 2ND Hematology/Oncology Comment on above: 2ND Start: 09-08-2024 End: 09-08-2024 ambulatory 09/08/2024 2:30 PM EST Infusion Center Hematology/Oncology [address] [place] [address] 2ND Hematology/Oncology Comment on above: 2ND Start: 09-06-2024 End: 09-06-2024 ambulatory 09/06/2024 1:30 PM EST Infusion Center Hematology/Oncology [address] [place] [address] 2ND Hematology/Oncology Comment on above: 2ND Start: 09-05-2024 End: 09-05-2024 Patient encounter procedure 09/05/2024 2:00 PM EST Appointment [facility] [address] [place] [address] bone density scan- [facility]) faxing over order [facility]IO [facility] Comment on above: bone density scan- [facility]) faxing over order Start: 09-05-2024 End: 09-05-2024 ambulatory 09/05/2024 10:30 AM EST Visit (SP) Office Hematology/Oncology [address] [place], [place] [phone] Fanny Barron [address] [place] [address] HYDROLOGIC MODELER/ ANEMIA/ ABNORMAL CBC RESULTS* PT REQUESTED DATE DUE TO SURG ON 09/11 Hematology/Oncology Comment on above: HYDROLOGIC MODELER/ ANEMIA/ ABNORMAL CBC RESULTS* PT REQ UESTED DATE DUE TO SURG ON 09/11 Start: 09-05-2024 End: 09-05-2024 FQHC visit new patient 09/05/2024 9:00 AM EST Visit (SP) Office Hematology/Oncology [address] [place] [address] [place] [address] [place] [address] NEW PATIENT Hematology/Oncology Comment on above: NEW PATIENT Start: 09-04-2024 End: 09-04-2024 Patient encounter procedure 09/04/2024 3:10 PM EST [facility] [address] [phone] Kali Bacon MD [address] [place], [place] [address] Discuss A1C [facility] Comment on above: Discuss A1C Start: 09-04-2024 End: 12-04-2024 Hemoglobin A1c in Blood HEMOGLOBIN A1C Lab Routine 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) Expected: 09/04/2024, Expires: 12/04/2024 [facility] Work Phone: Comment on above: Expected: 09/04/2024, Expires: Start: 09-04-2024 End: 09-04-2024 ambulatory 09/04/2024 1:30 PM EST Infusion Center Hematology/Oncology [address] [place] [address] 2ND Hematology/Oncology Comment on above: 2ND Start: 09-01-2024 End: 09-01-2024 ambulatory 09/01/2024 1:30 PM EST Infusion Center Hematology/Oncology [address] [place] [id number] 2ND Hematology/Oncology Comment on above: 2ND Start: 08-30-2024 End: 08-30-2024 ambulatory 08/30/2024 1:30 PM [facility] Infusion Center Hematology/Oncology [address] [place] [address] 2ND Hematology/Oncology Comment on above: 2ND Start: 08-21-2024 End: 08-21-2024 Patient encounter procedure 08/21/2024 4:40 PM EST Office Visit [facility] [address] [place] [phone] Kali Bacon MD [address] [place], [place] [phone] UBCPresurgical Clearance [facility] Comment on above: UBCPresurgical Clearance Start: 08-16-2024 Advance Directive Discussion Advance Directive Discussion [facility] Start: 08-16-2024 Medicare Advantage Annual Wellness Visit Medicare Advantage Annual Wellness Visit [facility] Start: 08-13-2024 End: 11-12-2024 Ferritin [Mass/volume] in Serum or Plasma FERRITIN Lab Routine Anemia, unspecified type Expected: 08/13/2024, Expires: 11/12/2024 [facility] Comment on above: Expected: 08/13/2024, Expires: Start: 08-13-2024 End: 11-12-2024 Iron and Iron binding capacity panel - Serum or Plasma IRON AND TIBC Lab Routine Anemia, unspecified type Expected: 08/13/2024, Expires: 11/12/2024 [facility] Work Phone: Comment on above: Expected: 08/13/2024, Expires: Start: 07-26-2024 End: 07-26-2024 Patient encounter procedure 07/26/2024 2:30 PM EST Office Visit [facility] [address] [place] [address] Kali Bacon MD [address] [place], [place] [phone] Annual Wellness [facility] Comment on above: Annual Wellness Start: 07-22-2024 Hepatitis B surface antibody level LDL Cholesterol [facility] Start: 07-21-2024 Annual PCP Team Chronic Disease Visit Annual PCP Team Chronic Disease Visit [facility] Start: 07-12-2024 Annual PCP Team Chronic Disease Visit Annual PCP Team Chronic Disease Visit [facility] Start: 05-10-2024 Annual PCP Team Chronic Disease Visit Annual PCP Team Chronic Disease Visit [facility] Start: 04-20-2024 BP CONTROLLED (<130/80) BP CONTROLLED (<130/80) [facility] Start: 04-16-2024 Covid-19 Vaccine ( season) Covid-19 Vaccine ( season) [facility] Start: 04-16-2024 Influenza vaccination Influenza Vaccine (#[facility]) [facility] Start: 02-23-2024 ANNUAL PCP TEAM CHRONIC DISEASE VISIT ANNUAL PCP TEAM CHRONIC DISEASE VISIT [facility] Start: 02-16-2024 End: 05-17-2024 Comprehensive metabolic 2000 panel - Serum or Plasma COMPREHENSIVE METABOLIC PANEL Lab Routine Hypertension, unspecified type Type 2 diabetes mellitus without complication, without long-term current use of insulin (HCC) Pure hypercholesterolemia Expected: 02/16/2024, Expires: 05/17/2024 [facility] Comment on above: Expected: 02/16/2024, Expires: Start: 02-16-2024 End: 05-17-2024 Hemoglobin A1c in Blood HEMOGLOBIN A1C Lab Routine Type 2 diabetes mellitus without complication, without long-term current use of insulin (HCC) Expected: 02/16/2024, Expires: 05/17/2024 [facility] Work Phone: Comment on above: Expected: 02/16/2024, Expires: Start: 02-16-2024 End: 05-17-2024 Lipid 1996 panel - Serum or Plasma LIPID PANEL BASIC Lab Routine Pure hypercholesterolemia Expected: 02/16/2024, Expires: 05/17/2024 [facility] Comment on above: Expected: 02/16/2024, Expires: Start: 02-11-2024 ANNUAL PCP TEAM CHRONIC DISEASE VISIT ANNUAL PCP TEAM CHRONIC DISEASE VISIT [facility] Start: 01-28-2024 ANNUAL PCP TEAM CHRONIC DISEASE VISIT ANNUAL PCP TEAM CHRONIC DISEASE VISIT [facility] Start: 01-26-2024 Hepatitis B surface antibody level LDL CHOLESTEROL [facility] Start: 01-24-2024 End: 04-24-2024 Lipid 1996 panel - Serum or Plasma LIPID PANEL BASIC Lab Routine Pure hypercholesterolemia Expected: 01/24/2024, Expires: 04/24/2024 [facility] Work Phone: Comment on above: Expected: 01/24/2024, Expires: Start: 01-24-2024 End: 01-24-2024 Patient encounter procedure 01/24/2024 2:00 PM EDT [facility] [address] [place] [phone] Kali Bacon MD [address] [place], [place] [phone] [address] [facility] Comment on above: 6 Month Follow Up Start: 01-21-2024 Hemoglobin A1c measurement HbA1C [facility] Start: 12-31-2023 ANNUAL PCP TEAM CHRONIC DISEASE VISIT ANNUAL PCP TEAM CHRONIC DISEASE VISIT [facility] Start: 11-21-2023 Hepatitis B surface antibody level LDL CHOLESTEROL [facility] Start: 11-21-2023 Lipid panel Lipid Panel [facility] Start: 10-14-2023 Covid-19 Vaccine () Covid-19 Vaccine () [facility] Start: 09-24-2023 ANNUAL PCP TEAM CHRONIC DISEASE VISIT ANNUAL PCP TEAM CHRONIC DISEASE VISIT [facility] Start: 09-24-2023 BP CONTROLLED (<130/80) BP CONTROLLED (<130/80) [facility] Start: 09-17-2023 Liquid based cervical cytology screening [facility] Start: 09-15-2023 Procedure [facility] Start: 08-16-2023 Advance Directive Discussion Advance Directive Discussion [facility] Start: 08-16-2023 Behavioral Health Screening Behavioral Health Screening [facility] Start: 08-16-2023 Depression Assessment Depression Assessment [facility] Start: 07-30-2023 ANNUAL PCP TEAM CHRONIC DISEASE VISIT ANNUAL PCP TEAM CHRONIC DISEASE VISIT [facility] Start: 07-30-2023 BP CONTROLLED (<130/80) BP CONTROLLED (<130/80) [facility] Start: 07-27-2023 Hemoglobin A1c/Hemoglobin.total in Blood HBA1C [facility] Start: 07-21-2023 End: 10-20-2023 CBC W Auto Differential panel - Blood CBC + DIFF Lab Routine Screening for deficiency anemia Expected: 07/21/2023, Expires: 10/20/2023 [facility] Work Phone: Comment on above: Expected: 07/21/2023, Expires: 4 Start: 07-21-2023 End: 10-20-2023 Comprehensive metabolic 2000 panel - Serum or Plasma COMP METABOLIC PANEL Lab Routine Hypertension, unspecified type 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) Pure hypercholesterolemia Expected: 07/21/2023, Expires: 10/20/2023 [facility] Work Phone: Comment on above: Expected: 07/21/2023, Expires: 4 Start: 07-21-2023 End: 10-20-2023 Hemoglobin A1c in Blood HGB A1C Lab Routine 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) Expected: 07/21/2023, Expires: 10/20/2023 [facility] Work Phone: Comment on above: Expected: 07/21/2023, Expires: 4 Start: 07-21-2023 End: 10-20-2023 Lipid 1996 panel - Serum or Plasma LIPID PANEL BASIC Lab Routine Pure hypercholesterolemia Expected: 07/21/2023, Expires: 10/20/2023 [facility] Work Phone: Comment on above: Expected: 07/21/2023, Expires: Start: 06-10-2023 Screening for malignant neoplasm of breast Mammogram [facility] Start: 05-22-2023 Hemoglobin A1c/Hemoglobin.total in Blood HBA1C [facility] Start: 04-16-2023 Covid-19 Vaccine () Covid-19 Vaccine () [facility] Start: 04-16-2023 Influenza vaccination [facility] Start: 02-19-2023 Hemoglobin A1c measurement Diabetes: Hemoglobin A1C [facility] Start: 12-24-2022 End: 12-24-2022 Patient encounter procedure 12/24/2022 Office Visit Cardiothoracic Surgery Elsie Pedraza APRN - GLASS FURNACE TENDER [address] [place] [id number] [facility] Thor[facility] Start: 12-17-2022 Hepatitis B surface antibody level LDL CHOLESTEROL [facility] Start: 12-10-2022 End: 12-10-2022 Patient encounter procedure 12/10/2022 Office Visit Cardiothoracic Surgery Elsie Pedraza APRN - [employer]ER [address] [place] [id number] [facility] Cardiovascular & Thoracic Surgery Start: 11-26-2022 End: 11-26-2022 Admission to same day surgery center 11/26/2022 Surgery Procedural Adrianne Sethi MD [address] [place] [address] CABG WITH CHERI [[id number] (CPT )] [facility] Comment on above: CABG WITH CHERI [[id number] (CPT )] Start: 11-26-2022 End: 11-26-2022 Anesthesia consultation 11/26/2022 Anesthesia Event Procedural Guera Stewart, BROKE HANDLER - GLASS FURNACE TENDER [address] [place] [address] [facility] MAIN OR Start: 11-26-2022 End: 11-26-2022 Cabg w/arterial graft single arterial graft CABG X1 ARTERIAL GRAFT Atherosclerotic heart disease of [place] coronary artery without angina pectoris 11/26/2022 7:00 AM EDT [facility] Operating Room Start: 11-26-2022 End: 11-26-2022 Echo transesophag r-t 2d w/prb img acquisj i&r Echocardiography transesophageal real-time Atherosclerotic heart disease of [place] coronary artery without angina pectoris 11/26/2022 7:00 AM EDT [facility] Operating Room Start: 11-26-2022 Subsequent hospital visit by physician 11/26/2022 Hospital Encounter Procedural Adrianne Sethi MD [address] [facility] [address] [place] [id number] [facility] MAIN OR Start: 11-20-2022 End: 11-20-2022 Admission to establishment 11/20/2022 Pre-Admission Testing Pre-Admission Testing [facility] Pre-Admit Testing Start: 10-16-2022 Glaucoma screening Dilated Retinal Exam [facility] Start: 10-16-2022 Hepatitis C antibody, confirmatory test DILATED RETINAL EXAM [facility] Start: 10-12-2022 COVID-19 VACCINE (6 - Moderna series) COVID-19 VACCINE (6 - Moderna series) [facility] Start: 10-08-2022 [facility] Start: 08-16-2022 ADVANCE DIRECTIVE DISCUSSION ADVANCE DIRECTIVE DISCUSSION [facility] Start: 08-16-2022 DEPRESSION ASSESSMENT DEPRESSION ASSESSMENT [facility] Start: 06-19-2022 Hemoglobin A1c/Hemoglobin.total in Blood HBA1C [facility] Start: 04-16-2022 Influenza vaccination INFLUENZA (#1) [facility] Start: 08-16-2021 ADVANCE DIRECTIVE DISCUSSION ADVANCE DIRECTIVE DISCUSSION [facility] Start: 08-16-2021 DEPRESSION ASSESSMENT DEPRESSION ASSESSMENT [facility] Start: 04-29-2021 Colonoscopy COLONOSCOPY [facility] Start: 04-29-2021 COLORECTAL CANCER SCREENING COLORECTAL CANCER SCREENING [facility] Start: 04-17-2021 COVID-19 VACCINE (3 - Booster for Moderna series) COVID-19 VACCINE (3 - Booster for Moderna series) [facility] Start: 01-10-2021 COVID-19 VACCINE (3 - Booster for Moderna series) COVID-19 VACCINE (3 - Booster for Moderna series) [facility] Start: 03-21-2020 SHINGRIX VACCINE (2 of 3) SHINGRIX VACCINE (2 of 3) [facility] Start: 2017 BONE DENSITY BONE DENSITY [facility] Start: 2017 Bone Density Screening Bone Density Screening [facility] Start: 2017 PNEUMOCOCCAL: 65+ (1 - PCV) PNEUMOCOCCAL: 65+ (1 - PCV) [facility] Start: 2017 Screening for osteoporosis Bone Density Screening [facility] Start: 04-01-2017 End: 04-01-2017 Appointment Appointment [facility] Start: 04-01-2017 End: 04-01-2017 *GC/Chlamydia *GC/Chlamydia [facility] Start: 04-01-2017 End: 04-01-2017 Mammogram, screening Mammogram, Screening, both breasts [facility] Start: 2012 Hepatitis B Vaccine (1 of 3 - Risk 3-dose series) Hepatitis B Vaccine (1 of 3 - Risk 3-dose series) [facility] Start: 2012 RSV Vaccine (1 - 1-dose 60+ series) RSV Vaccine (1 - 1-dose 60+ series) [facility] Start: 2002 SHINGRIX VACCINE (1 of 2) SHINGRIX VACCINE (1 of 2) [facility] Start: 1997 COLOGUARD (FIT-DNA) COLOGUARD (FIT-DNA) [facility] Start: [address] COLONOGRAPHY [facility] Start: 1997 DIABETES SCREEN DIABETES SCREEN [facility] Start: 1997 FECAL OCCULT BLOOD FECAL OCCULT BLOOD [facility] Start: 1997 LIPID SCREEN LIPID SCREEN [facility] Start: 1997 Screening for malignant neoplasm of colon [facility] Start: 1997 SIGMOIDOSCOPY SIGMOIDOSCOPY [facility] Start: 1992 Mammography [facility] Start: 1992 Screening for malignant neoplasm of breast Mammogram Screening [facility] Start: 1971 DTaP/Tdap/Td Vaccines (1 - Tdap) DTaP/Tdap/Td Vaccines (1 - Tdap) [facility] Start: 1971 Urine microalbumin profile [facility] Start: 1971 Urine screening for protein Diabetes: Urine Protein Screening [facility] Start: 1970 ANNUAL PCP TEAM CHRONIC DISEASE VISIT ANNUAL PCP TEAM CHRONIC DISEASE VISIT [facility] Start: 1970 Anxiety Screening Anxiety Screening [facility] Start: 1970 BP CONTROLLED (<130/80) BP CONTROLLED (<130/80) [facility] Start: 1970 Depression Screening Depression Screening [facility] Start: 1970 Hepatitis B surface antibody level LDL CHOLESTEROL [facility] Start: 1970 HEPATITIS C SCREENING HEPATITIS C SCREENING [facility] Start: 1970 Hepatitis C screening Hepatitis C Screening [facility] Start: 1970 SPIROMETRY SPIROMETRY [facility] Start: 1964 Adult depression screening assessment DEPRESSION SCREENING [facility] Start: 1962 3 comp foot exam completed DIABETIC FOOT EXAM [facility] Start: 1962 Diabetic foot examination [facility] Start: 1962 Glaucoma screening Diabetes: Retinopathy Screening [facility] Start: 1962 Hepatitis B screening URINE ALBUMIN:CREATININE RATIO [facility] Start: 1962 Preventive dental service Diabetes: Dental Exam [facility] Start: 1958 PNEUMOCOCCAL: 65+ (1 - PCV) PNEUMOCOCCAL: 65+ (1 - PCV) [facility] Start: 1957 Hemoglobin A1c/Hemoglobin.total in Blood HBA1C [facility] Start: 1952 Hemoglobin A1c measurement Diabetes: Hemoglobin A1C [facility] Start: 1952 Hepatitis B Vaccines (1 of 3 - 3-dose series) Hepatitis B Vaccines (1 of 3 - 3-dose series) [facility] Start: 01-09-1953 Lipid panel Lipid Panel [facility] Start: 1952 Screening for malignant neoplasm of colon [facility] Start: 1952 Screening for osteoporosis Bone Density Scan [facility] Start: 1952 Thyroid stimulating hormone measurement TSH Level [facility] Bacteria identified in Urine by Culture URINE CULTURE Microbiology Routine UTI symptoms 04/14/2023 12:25 PM EDT [facility] Work Phone: Bacteria identified in Urine by Culture URINE CULTURE Microbiology Routine Urinary frequency 05/17/2023 12:25 PM EDT [facility] Work Phone: Bacteria identified in Urine by Culture BACTERIAL CULTURE, URINE Microbiology Routine Frequency of urination Ordered: 09/03/2024 [facility] Work Phone: Comment on above: Ordered: 09/03/2024 Bacteria identified in Urine by Culture BACTERIAL CULTURE, URINE Microbiology Routine Vaginal itching H/O pyelonephritis 10/09/2024 11:30 AM EST [facility] BACTERIAL VAGINOSIS NAAT BACTERIAL VAGINOSIS NAAT Lab Routine Vaginal itching 10/09/2024 11:30 AM EST [facility] MADELINE/TRICHOMONAS NAAT MADELINE/TRICHOMONAS NAAT Lab Routine Vaginal itching 10/09/2024 11:30 AM EST [facility] Work Phone: Catheterization of left heart [facility] COVID & INFLUENZA A/ B & RSV PCR, ROUTINE COVID & INFLUENZA A/B & RSV PCR, ROUTINE Microbiology Routine URI, acute Asthma with acute exacerbation, unspecified asthma severity, unspecified whether persistent Ordered: 09/16/2024 [facility] Work Phone: Comment on above: Ordered: 09/16/2024 CTA Head vessels and Neck vessels W contrast IV [facility] DXA Bone [Mass/Area] Bone density [facility] End: 09-14-2025 EGD DIAGNOSTIC EGD DIAGNOSTIC Endoscopy Routine Iron deficiency anemia, unspecified iron deficiency anemia type 1 Occurrences starting 09/14/2024 until 09/14/2025 [facility] Work Phone: Comment on above: 1 Occurrences starting 09/14/2024 until 09/14/2025 End: 09-14-2025 Flexible sigmoidoscopy study COLONOSCOPY DIAGNOSTIC Endoscopy Routine Iron deficiency anemia, unspecified iron deficiency anemia type Family history of colon cancer 1 Occurrences starting 09/14/2024 until 09/14/2025 [facility] Comment on above: 1 Occurrences starting 09/14/2024 until 09/14/2025 End: 01-24-2026 Magnesium [Mass/volume] in Serum or Plasma MAGNESIUM Lab Routine Hypomagnesemia 3x per week for 6 Occurrences starting 01/24/2025 until 01/24/2026 [facility] Work Phone: Comment on above: 3x per week for 6 Occurrences starting 0 01/24/2025 until 01/24/2026 MG Breast - bilatera l Screening [facility] Path report.final Dx Spec [facility] Patient Education [facility] Work Phone: Patient referral [facility] Work Phone: SURGICAL PATHOLOGY SURGICAL PATH OLOGY Lab Routine Change in mole Ordered: 09/20/2024 [facility] Work Phone: Comment on above: Ordered: 09/20/2024 Tissue Pathology biopsy report SURGICAL PATHOLOGY Lab Routine Ordered: 10/02/2024 [facility] Work Phone: Comment on above: Ordered: 10/02/2024 Tissue Pathology biopsy report [facility] Work Phone: Comment on above: Release Upon Ordering for 1 Occurrences starting 11/15/2024, 1 completed Urine culture [facility] XR Chest 2 Views XR chest 2 view s Imaging Routine CAD in [place] artery Hyperlipidemia, unspecified hyperlipidemia type 11/20/2022 4:04 PM EDT [facility] Work Phone: [facility] Immunizations Immunization Date Immunization Notes Care Provider Ernesto castellanos 05-01-2024 influenza, high dose seasonal, preservative-free Kali Bacon MD Work Phone: [facility] 07-19-2023 respiratory syncytia l virus (RSV) vaccine, adjuvanted (AREXVY) Kali Bacon MD Work Phone: [facility] 05-17-2023 influenza (HD-IIV4) vaccine, age 65+ yr, high dose, quadrivalent, PF (FLUZONE HIGH-DOSE) Kali Bacon MD Work Phone: [facility] 05-17-2023 influenza virus vacc ine, unspecified formulation Kali Bacon MD Work Phone: [facility] 06-11-2022 COVID-19 booster vac cine, age 12+ yr, bivalent (MODERNA) Yomaira Mcelroy BROKE HANDLER.GLASS FURNACE TENDER Work Phone: [facility] 06-01-2022 influenza, high-dose , quadrivalent vaccine (FLUZONE HIGH DOSE QUADRIVALENT) Yomaira Mcelroy BROKE HANDLER.GLASS FURNACE TENDER Work Phone: [facility] 06-01-2022 influenza virus vacc ine, unspecified formulation Marva Madera BROKE HANDLER.GLASS FURNACE TENDER Work Phone: [facility] 12-02-2021 COVID-19 original vaccine, full dose, monovalent (MODERNA) Yomaira Mcelroy BROKE HANDLER.GLASS FURNACE TENDER Work Phone: [facility] 07-11-2021 COVID-19 original vaccine, full dose, monovalent (MODERNA) Yomaira Mcelroy BROKE HANDLER.GLASS FURNACE TENDER Work Phone: [facility] 05-12-2021 influenza, high-dose , quadrivalent vaccine (FLUZONE HIGH DOSE QUADRIVALENT) Yomaira Mcelroy BROKE HANDLER.GLASS FURNACE TENDER Work Phone: [facility] 11-15-2020 COVID-19 original vaccine, full dose, monovalent (MODERNA) Yomaira Mcelroy BROKE HANDLER.GLASS FURNACE TENDER Work Phone: [facility] 10-18-2020 COVID-19 original vaccine, full dose, monovalent (MODERNA) Yomaira Mcelroy BROKE HANDLER.GLASS FURNACE TENDER Work Phone: [facility] 05-22-2020 influenza nasal, unspecified formulation Yomaira Mcelroy BROKE HANDLER.GLASS FURNACE TENDER Work Phone: [facility] 05-22-2020 influenza, high-dose , quadrivalent vaccine (FLUZONE HIGH DOSE QUADRIVALENT) Yomaira Mcelroy BROKE HANDLER.GLASS FURNACE TENDER Work Phone: [facility] 01-25-2020 zoster vaccine recombinant Yomaira Mcelroy BROKE HANDLER.GLASS FURNACE TENDER Work Phone: [facility] 01-25-2020 zoster vaccine, live Yomaira Ramirez loreta BROKE HANDLER.GLASS FURNACE TENDER Work Phone: [facility] 10-26-2019 zoster vaccine recombinant Yomaira Mcelroy BROKE HANDLER.GLASS FURNACE TENDER Work Phone: [facility] 10-26-2019 zoster vaccine, live Yomaira Ramirez loreta BROKE HANDLER.GLASS FURNACE TENDER Work Phone: [facility] 06-28-2019 pneumococcal conjuga te vaccine, 13 valent Yomaira Mcelroy BROKE HANDLER.GLASS FURNACE TENDER Work Phone: [facility] 06-13-2018 pneumococcal polysaccharide vaccine, 23 valent Yomaira Mcelroy BROKE HANDLER.GLASS FURNACE TENDER Work Phone: [facility] 06-08-2018 influenza nasal, unspecified formulation Yomaira Mcelroy BROKE HANDLER.GLASS FURNACE TENDER Work Phone: [facility] Payers Date Payer Category Payer Self-pay [id number] 2020 Medicare UHC AAR MEDICAR E UHC AARP MEDICARE HMO [id number] 2020-Present [phone] [address] [address] [place] [address] [id number] 2020 Medicare [id number] 2020 Medicare (Managed Care) UHC AARP MEDICARE HMO [id number] 2020 Unknown [id number] 2016 Unknown [id number] 2016 Unknown [id number] Medicare [id number] Unknown [employer]ARE [id number] Unknown [id number] .1.789364.3.579.2. 462 Unknown [id number] .1.414408.3.579.2. 462 Unknown [id number] .1.112096.3.579.2. 462 Unknown [id number] .1.484297.3.579.2. 462 Unknown [id number] .1.875215.3.579.2. 462 Unknown [id number] .1.363015.3.579.2. 462 Unknown [id number] .1.824265.3.579.2. 462 Unknown [id number] .1.880747.3.579.2. 462 Unknown [id number] 2.16.840.1.955122.3.579.2. 462 Unknown [id number] 2.16.840.1.955380.3.579.2. 462 Unknown [id number] 2.16.840.1.462922.3.579.2. 462 Unknown [id number] 2.16.840.1.295463.3.579.2. 462 Unknown [id number] 2.16.840.1.569108.3.579.2. 462 Unknown [id number] 2.16.840.1.845563.3.579.2. 462 Unknown [id number] 2.840.1.991056.3.579.2. 462 Unknown [id number] 2.16.840.1.487966.3.579.2. 462 Unknown [id number] 2.840.1.311122.3.579.2. 462 Unknown [id number] 2.840.1.854976.3.579.2. 462 Unknown [id number] 2.840.1.962088.3.579.2. 462 Unknown [id number] 2.16.840.1.724963.3.579.2. 462 Unknown [id number] 2.16.840.1.006154.3.579.2. 462 Unknown [id number] 2.16840.1.018767.3.579.2. 462 Unknown [id number] 2.16.840.1.124551.3.579.2. 462 Unknown [id number] 2.16.840.1.608961.3.579.2. 462 Unknown [id number] 2.16.840.1.058239.3.579.2. 462 Unknown [id number] 2.16.840.1.826183.3.579.2. 462 Unknown [id number] 2.16840.1.861592.3.579.2. 462 Unknown [id number] 2.16.840.1.890135.3.579.2. 462 Unknown [id number] 2.16.840.1.494083.3.579.2. 462 Unknown [id number] 2.16.840.1.944770.3.579.2. 462 Unknown [id number] 2.16.840.1.789450.3.579.2. 462 Unknown [id number] 2.16.840.1.695286.3.579.2. 462 Unknown [id number] 2.16.840.1.367927.3.579.2. 462 Unknown [id number] 2.16.840.1.891780.3.579.2. 462 Social History Date Type Detail Facility Start: 07-16-2021 End: 10-27-2023 Tobacco smoking status MAIS Unknown if ever smoked [facility] Start: 1950 Sex Assigned At Female C [facility] Start: 04-27-2018 End: 07-30-2022 Tobacco smoking status NHIS Never smoked tobacco [facility] Work Phone: Start: 04-27-2018 End: 07-30-2022 Tobacco use and exposure Smokeless tobacco non-user [facility] Work Phone: Start: 07-30-2022 End: 01-24-2025 Alcohol intake Ex-drinker (finding) [facility] Start: 07-30-2022 History SDOH Alcohol Std Drinks 0 [facility] Start: 07-30-2022 History SDOH Social Connections Phone 5 [facility] Start: 07-30-2022 History SDOH Social Connections Evangelical 3 [facility] Start: 07-30-2022 History SDOH Social Connections Membership 2 [facility] Start: 07-30-2022 History SDOH Social Connections Meetings 1 [facility] Start: 11-18-2022 End: 12-10-2022 Alcohol intake Lifetime non-drinker (finding) [facility] Start: 1950 Sex Assigned At Not on file S [facility] Start: 11-08-2022 End: 12-22-2022 Exposure to SARS-CoV-2 (event) Not sure [facility] Start: 07-30-2022 End: 12-30-2022 History of Social function [facility] Start: 07-30-2022 End: 12-30-2022 Social connection and isolation panel [facility] Do you belong to any clubs or organizations such as protestant groups, unions, fraternal or athletic groups, or school groups? No [facility] Are you now , , , , never or living with a partner? [facility] Frequency of Alcohol Consumption Not on file [facility] Do you feel stress - tense, restless, nervous, or anxious, or unable to sleep at night because your mind is troubled all the time - these days [OSQ] Not at all [facility] (I/We) worried carlos er (my/our) food would run out before (I/we) got money to buy more. Never true [facility] Start: 05-02-2020 Gender identity Identifies as female gender (finding) [facility] Start: 05-02-2020 Sexual orientation Heterosexual (fin payton) [facility] How often to you hav e a drink containing alcohol? Never [facility] Start: 10-19-2024 End: 11-04-2024 Sex Female (finding) [facility] NEGATED: Highlighted row Not [facility] Medical Equipment Procedure Code Equipment Code Equipment Original Text Equipment Identifier Dates [id number], [id number], [id number], [id number], [id number], [id number] Start: 12-07-2022 End: 12-06-2024 Comment on above: Monitor blood sugar daily and as needed. 1 Strip before meals and at bedtime. Use as instructed 1 Each once daily. Bare-metal carotid artery stent ()[id number] FDA Start: 01-25-2024 Functional Status Date Assessment Result Facility 09-29-2024 Are you deaf, or do you have serious difficulty hearing No 09/29/2024 3:17 PM Migdalia Melton RN No [facility] 09-29-2024 Are you blind, or do you have serious difficulty seeing, even when wearing glasses No 09/29/2024 3:17 PM Migdalia Melton RN No [facility] 09-29-2024 Do you have serious difficulty walking or climbing stairs No 09/29/2024 3:17 PM Migdalia Melton RN No [facility] 09-29-2024 Do you have difficul ty dressing or bathing No 09/29/2024 3:17 PM Migdalia Melton RN No [facility] 09-29-2024 Because of a physica l, mental, or emotional condition, do you have difficulty doing errands alone such as visiting a physician's office or shopping No 09/29/2024 3:17 PM Migdalia Melton RN No [facility] Mental Status Date Assessment Result Facility 09-29-2024 Because of a physica l, mental, or emotional condition, do you have serious difficulty concentrating, remembering, or making decisions No 09/29/2024 3:17 PM Migdalia Melton RN No [facility] 01-04-2023 Cognitive function Level Of Cons ciousness Awake;Alert;Appropriate [facility] Work Phone: 10-08-2022 Cognitive function Level Of Cons ciousness Awake;Alert;Appropriate;Fol lows Commands [facility] Work Phone: Clinical Notes 03-06-2022 to 01-29-2025 Telephone Encounter - Ramos Solis LPN - 01/29/2025 8:39 AM EDTTelephone Encounter - Ramos Solis LPN - 01/29/2025 8:39 AM EDTTelephone Encounter - Spring Shipley LPN - 01/25/2025 8:57 AM EDT Note Date & Type Note Facility 01-29-2025 Telephone encounter Note Patient notified of result information on My Chart. Notification will be sent to this nurse if message has not been read within 2 days. Patient will be contacted by another form of communication if notification of not reading My Chart message is received. Ramos Solis LPN January 29, 2025 8:39 AM [facility] 01-29-2025 Miscellaneous Notes Patient notified of result information on My Chart. Notification will be sent to this nurse if message has not been read within 2 days. Patient will be contacted by another form of communication if notification of not reading My Chart message is received. Ramos Solis LPN January 29, 2025 8:39 AM ----- Message from Kali Bacon MD sent at 01/29/2025 8:11 AM EDT ----- Mg low. Restart mg. recheck in 1w Addended by: KALI BACON on: 01/29/2025 08:11 AM Modules accepted: Orders documented in this encounter [facility] 01-29-2025 Telephone encounter Note ----- Message from Kali Bacon MD sent at 01/29/2025 8:11 AM EDT ----- Mg low. Restart mg. recheck in 1w [facility] 01-29-2025 Note Addended by: KALI BACON on: 01/29/2025 08:11 AM Modules accepted: Orders [facility] 01-25-2025 Telephone encounter Note Last Office Visit: 01-24-2025 Next Scheduled Office Visit: 07-30-2025 Requested Prescriptions Pending Prescriptions Disp Refills omeprazole (PRILOSEC) 40 mg capsule [Pharmacy Med Name: omeprazole 40 mg capsule,delayed release] 180 capsule 3 Sig: TAKE 1 CAPSULE TWICE DAILY Spring Shipley LPN January 25, 2025 8:58 AM [facility] 01-25-2025 Miscellaneous Notes Last Office Visit: 01-24-2025 Next Scheduled Office Visit: 07-30-2025 Requested Prescriptions Pending Prescriptions Disp Refills omeprazole (PRILOSEC) 40 mg capsule [Pharmacy Med Name: omeprazole 40 mg capsule,delayed release] 180 capsule 3 Sig: TAKE 1 CAPSULE TWICE DAILY Spring Shipley LPN January 25, 2025 8:58 AM documented in this encounter [facility] 01-24-2025 Note HNO ID: [id number] Author: KALI BACON MD Service: ? Author Type: Physician Type: Progress Notes Filed: 01/24/2025 14:53 Note Text: Subjective Janessa Baron is a 74-year-old female with a history of DM, presenting for follow-up on recent lab results and EKG findings. EKG Abnormalities: - Recent EKG showed an inferior myocardial infarction, age undetermined. - Previous EKG in September also indicated an inferior infarct. - Denies chest pain, dyspnea, or neurological symptoms. - No known history of [place]. - Followed by cardiology; last visit was a yearly checkup with Dr. Pastor, who reported everything was okay. Magnesium Deficiency: - Recent lab work showed critically low magnesium levels. - Started taking OTC magnesium supplements two days ago. - Denies palpitations, seizures, or tetany. - Reports dizziness on two occasions, yesterday and a few days prior, which she attributes to low magnesium levels. Vitamin B12 Deficiency: - History of low vitamin B12 levels. - Receiving monthly vitamin B12 injections; missed the most recent injection scheduled the day before surgery. Iron Deficiency: - History of low iron levels, treated with infusions. - Recent recheck in October showed improved iron levels. DM: - Last A1c was 6.5. - Denies hypoglycemic episodes. Weight Management: - Weight fluctuates between 189-192 lbs. - Actively trying to maintain weight. Surgical History: - Scheduled for L4-L5 lumbar fusion surgery. - Reports difficulty waking up from anesthesia in the past, but denies any issues with hypotension during procedures. - History of carotid stenting; recent carotid artery scan was normal. Review of Systems GENERAL: No weight loss, malaise or fevers. HEENT: Negative for frequent or significant headaches, no changes in vision or hearing, no nose bleeds or other nasal problems NECK: Negative for lumps, goiter, pain and significant neck swelling RESPIRATORY: Negative for cough, dyspnea or shortness of breath CARDIOVASCULAR: Negative for chest pain, leg swelling, CHF or palpitations GI: No nausea, vomiting, diarrhea, heartburn, abdominal pain, blood in stool or black stool GENITOURINARY: No history of dysuria, frequency or incontinence MUSCULOSKELETAL: Positive for back pain and muscle pain in the arm, negative for joint pain or swelling SKIN: Negative for lesions, rash and itching PSYCH: Negative for anxiety or depression HEMATOLOGY/LYMPHOLOGY: No bleeding concerns NEURO: Positive for dizziness, negative for headaches, syncope, paralysis, seizures or tremors ENDOCRINE: No history of polydipsia, increased thirst or other endocrine symptoms. PAST SURGICAL HISTORY Procedure Laterality Date BREAST BIOPSY Bilateral benign BREAST SURGERY HX CHOLECYSTECTOMY COLONOSCOPY 05/2017 COLONOSCOPY SCREENING 2019 EGD 04/2017 EGD DIAGNOSTIC 01/2023 F SALPINGO-OOPHORECTOMY Left IR RT HEART CATH 11/10/2022 PAST SURGICAL HISTORY OF left TM repair PAST SURGICAL HISTORY OF Left 12/1991 Repair of hole in left eardrum PAST SURGICAL HISTORY OF 06/03/1998 Scalp - removal of sebaceaous cyst PAST SURGICAL HISTORY OF 11/26/2022 Triple Bypass PAST SURGICAL HISTORY OF 01/25/2024 Left carotid artery stint REMV CATARACT EXTRACAP,INSERT LENS Left REMV CATARACT EXTRACAP,INSERT LENS Right TUBAL LIGATION PAST MEDICAL HISTORY Diagnosis Date Asthma (HCC) Carotid stenosis Delayed emergence from general anesthesia deep anesthesia 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) 05/22/2022 Diabetes mellitus, type 2 (HCC) Hyperlipidemia Hypertension Sliding hiatal hernia FAMILY HISTORY Problem Relation Age of Onset Heart Mother Stroke Mother Emphysema Father Heart Father Heart Attack Father Colon Cancer Sister 67 Diabetes Sister Diabetes Sister Heart Sister Thyroid Cancer Brother Social History Tobacco Use Smoking status: Never Smokeless tobacco: Never Vaping Use Vaping status: Never Used Substance Use Topics Alcohol use: Not Currently Drug use: Not Currently ALLERGIES Allergen Reactions Empagliflozin Unknown Metoclopramide Unknown Sulfamethoxazole-Tr* Unknown Morphine Unknown Augmentin [Amoxicil* Rash Cefzil [Cefprozil] Rash Dayquil Allergy 12-* Hives Dextromethorphan Hives Doxylamine Hives Erythromycin Rash Iodinated Contrast * Hives Ivp Dye [Iodine] Unknown knot on head Lincomycin Rash Pseudoephedrine Hives Reglan [Metoclopram* Intolerance Geybuel-Gie-Wrf Red* Unknown Other reaction(s): Other Tequin [Gatifloxaci* Rash Doxycycline Unknown, Vomiting MEDICATIONS: montelukast (SINGULAIR) 10 mg tablet TAKE 1 TABLET AT BEDTIME lancets (ONE TOUCH DELICA) 33 gauge 1 each once daily. cyanocobalamin (VITAMIN B-12) 1,000 mcg tab Take 1 tablet by mouth once daily. triamcinolone acetonide (KENALOG) 0.1 % cream APPLY TO THE AFFECTED AREA(S) 1-2X DAILY OR WHEN RASH IS FLA (more content not included)... [facility] 01-24-2025 History of Presen t illness Narrative Subjective Janessa Baron is a 74-year-old female with a history of DM, presenting for follow-up on recent lab results and EKG findings. EKG Abnormalities: - Recent EKG showed an inferior myocardial infarction, age undetermined. - Previous EKG in September also indicated an inferior infarct. - Denies chest pain, dyspnea, or neurological symptoms. - No known history of TN. - Followed by cardiology; last visit was a yearly checkup with Dr. Pastor, who reported everything was okay. Magnesium Deficiency: - Recent lab work showed critically low magnesium levels. - Started taking OTC magnesium supplements two days ago. - Denies palpitations, seizures, or tetany. - Reports dizziness on two occasions, yesterday and a few days prior, which she attributes to low magnesium levels. Vitamin B12 Deficiency: - History of low vitamin B12 levels. - Receiving monthly vitamin B12 injections; missed the most recent injection scheduled the day before surgery. Iron Deficiency: - History of low iron levels, treated with infusions. - Recent recheck in October showed improved iron levels. DM: - Last A1c was 6.5. - Denies hypoglycemic episodes. Weight Management: - Weight fluctuates between 189-192 lbs. - Actively trying to maintain weight. Surgical History: - Scheduled for L4-L5 lumbar fusion surgery. - Reports difficulty waking up from anesthesia in the past, but denies any issues with hypotension during procedures. - History of carotid stenting; recent carotid artery scan was normal. Review of Systems GENERAL: No weight loss, malaise or fevers. HEENT: Negative for frequent or significant headaches, no changes in vision or hearing, no nose bleeds or other nasal problems NECK: Negative for lumps, goiter, pain and significant neck swelling RESPIRATORY: Negative for cough, dyspnea or shortness of breath CARDIOVASCULAR: Negative for chest pain, leg swelling, CHF or palpitations GI: No nausea, vomiting, diarrhea, heartburn, abdominal pain, blood in stool or black stool GENITOURINARY: No history of dysuria, frequency or incontinence MUSCULOSKELETAL: Positive for back pain and muscle pain in the arm, negative for joint pain or swelling SKIN: Negative for lesions, rash and itching PSYCH: Negative for anxiety or depression HEMATOLOGY/LYMPHOLOGY: No bleeding concerns NEURO: Positive for dizziness, negative for headaches, syncope, paralysis, seizures or tremors ENDOCRINE: No history of polydipsia, increased thirst or other endocrine symptoms. PAST SURGICAL HISTORY Procedure Laterality Date BREAST BIOPSY Bilateral benign BREAST SURGERY HX CHOLECYSTECTOMY COLONOSCOPY 05/2017 COLONOSCOPY SCREENING 2019 EGD 04/2017 EGD DIAGNOSTIC 01/2023 F SALPINGO-OOPHORECTOMY Left IR RT HEART CATH 11/10/2022 PAST SURGICAL HISTORY OF left TM repair PAST SURGICAL HISTORY OF Left 12/1991 Repair of hole in left eardrum PAST SURGICAL HISTORY OF 06/03/1998 Scalp - removal of sebaceaous cyst PAST SURGICAL HISTORY OF 11/26/2022 Triple Bypass PAST SURGICAL HISTORY OF 01/25/2024 Left carotid artery stint REMV CATARACT EXTRACAP,INSERT LENS Left REMV CATARACT EXTRACAP,INSERT LENS Right TUBAL LIGATION PAST MEDICAL HISTORY Diagnosis Date Asthma (HCC) Carotid stenosis Delayed emergence from general anesthesia deep anesthesia 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) 05/22/2022 Diabetes mellitus, type 2 (HCC) Hyperlipidemia Hypertension Sliding hiatal hernia FAMILY HISTORY Problem Relation Age of Onset Heart Mother Stroke Mother Emphysema Father Heart Father Heart Attack Father Colon Cancer Sister 67 Diabetes Sister Diabetes Sister Heart Sister Thyroid Cancer Brother Social History Tobacco Use Smoking status: Never Smokeless tobacco: Never Vaping Use Vaping status: Never Used Substance Use Topics Alcohol use: Not Currently Drug use: Not Currently ALLERGIES Allergen Reactions Empagliflozin Unknown Metoclopramide Unknown Sulfamethoxazole-Tr* Unknown Morphine Unknown Augmentin [Amoxicil* Rash Cefzil [Cefprozil] Rash Dayquil Allergy 12-* Hives Dextromethorphan Hives Doxylamine Hives Erythromycin Rash Iodinated Contrast * Hives Ivp Dye [Iodine] Unknown knot on head Lincomycin Rash Pseudoephedrine Hives Reglan [Metoclopram* Intolerance Ulhvxsn-Odu-Gdr Red* Unknown Other reaction(s): Other Tequin [Gatifloxaci* Rash Doxycycline Unknown, Vomiting MEDICATIONS: montelukast (SINGULAIR) 10 mg tablet TAKE 1 TABLET AT BEDTIME lancets (ONE TOUCH DELICA) 33 gauge 1 each once daily. cyanocobalamin (VITAMIN B-12) 1,000 mcg tab Take 1 tablet by mouth once daily. triamcinolone acetonide (KENALOG) 0.1 % cream APPLY TO THE AFFECTED AREA(S) 1-2X DAILY OR WHEN RASH IS FLARED SITagliptin phosphate (JANUVIA) 100 mg tablet Take 1 tablet by mouth once daily. hydrOXYzine HCl (ATARAX) 25 mg tablet Take 1 tablet by mouth every 12 hours as needed for anxiety. predniSONE (DELTASONE) 20 mg tablet Take 3 tablets by mouth once daily. X3d, then 2 po every day x 3d then 1 po every day x 3d, then 1/2 po every day x 4d benzonatate (TESSALON PERLE) 100 mg capsule Take 1 capsule by mouth three times a day as needed. glimepiride (AMARYL) 4 mg tablet Take 1 tablet by mouth daily with breakfast. HYDROcodone-acetaminophen (NORCO) 5-325 mg per tablet Take 1 tablet by mouth every 8 hours as needed for pain. benzocaine/benzethon Cl (DERMOPLAST ANTIBACTERIAL TOPICAL) Apply to affected area as needed. lidocaine (SALONPAS) 4 % patch Apply 1 application as directed once daily. albuterol (PROVENTIL) 2.5 mg /3 mL (0.083 %) nebulizer solution INHALE WITH 1 VIAL IN NEBULIZER EVERY SIX HOURS NEEDED rosuvastatin (CRESTOR) 10 mg tablet Take 1 tablet by mouth daily at bedtime. metFORMIN (GLUCOPHAGE) 500 mg tablet Take 2 tablets by mouth two times a day with meals. blood sugar diagnostic ([employer] ULTRA TEST) test strip Monitor blood sugar daily and as needed. pioglitazone (ACTOS) 45 mg tablet Take 1 tablet by mouth once daily. ketoconazole (NIZORAL) 2 % cream Apply to affected area once daily for 10 days. NYSTOP powder APPLY TO THE AFFECTED AREA(S) THREE TIMES DAILY sucralfate (CARAFATE) 1 gram tablet Take 1 g by mouth three times a day. 1/2 hour before meals budesonide (PULMICORT) 0.5 mg/2 mL nebulizer solution mix 2 ampules with saline and apply twice daily gel base no.41, bulk, (HYDROGEL) gel 1 Dose once daily. blood sugar diagnostic ([employer] ULTRA TEST) test strip 1 Strip before meals and at bedtime. Use as instructed aspirin, enteric coated (ASPIRIN, ENTERIC COATED) 81 mg EC tablet Take 81 mg by mouth once daily. traMADol (ULTRAM) 50 mg tablet Take 50 mg by mouth every 6 hours as needed for pain. diclofenac (VOLTAREN) 1 % topical gel Apply to affected area four times daily. mag carb/aluminum hydrox/algin (GAVISCON ORAL) Take 1 tablet by mouth as needed. cetirizine HCl (ZYRTEC ORAL) Take 1 tablet by mouth once daily. ubidecarenone (CO Q-10 ORAL) Take 1 tablet by mouth once daily. Magnesium Oxide 500 mg magnesium tab Take 1 tablet by mouth once daily. omeprazole (PRILOSEC) 40 mg capsule Take 1 capsule by mouth two times a day. lisinopril-hydroCHLOROthiazide (ZESTORETIC) 20-12.5 mg per tablet Take 1 tablet by mouth once daily. Allergies, past surgical history, family history and past medical history were reviewed per this encounter. Medications were reviewed and verified. 11/18/2024 01/17/2025 INTAKE PAIN ASSESSMENT Are you having pain associated with your visit today? Yes, Provider notified No Pain Level 4 Pain Location Arm-Right Description Aching;Tenderness Duration Units Weeks Frequency Continuous Intervention/Comfort measure Medication If pain assessment is 0, no action needed. If pain assessment is positive, please see assessment and plain. Objective Labs: (October) - Iron: Normal (recheck following previous deficiency) - Vitamin B12: Normal (recheck following previous deficiency) Magnesium: Critically low HbA1c: 6.5 Tests: Electrocardiogram (EKG) (most recent, performed Wednesday): Abnormal, findings consistent with inferior myocardial infarction (age undetermined) (September) EKG: Abnormal, findings consistent with inferior myocardial infarction (age undetermined) Imaging: Carotid artery scan: No abnormalities BP 124/78 (BP Site: Left Arm, BP Position: Sitting, BP Cuff Size: Regular Adult) Pulse 80 Temp 36.2 C (97.1 F) (Temporal) Resp 18 Ht 160 cm (5' 3) Wt 87.1 kg (192 lb) SpO2 98% BMI 34.01 kg/m Physical Exam GENERAL: NAD, alert and oriented SKIN: Unremarkable, no rash or skin lesions. HEAD: Normocephalic EYES: PERRLA, EOMI, conjunctiva clear EARS: External ears normal, canals clear, TM's normal. NOSE/SINUSES: Nares normal. Septum midline. OROPHARYNX: Lips, mucosa, and tongue normal, good dentition. No oral lesions noted. NECK: Supple, no lymphadenopathy, normal thyroid, no carotid bruits. LUNGS: Clear to auscultation bilaterally, no wheezes/rhonchi/rales. HEART: Regular rate and rhythm, no murmurs. No ectopy. EXTREMITIES: Normal, no deformities, no skin discoloration, no edema. NEURO: Awake, alert and oriented x3, cranial nerves II-XII grossly intact, normal gait, no involuntary motions. Procedures Assessment and Plan 1. Preop examination (Z01.818) - Preoperative evaluation for upcoming L4-L5 lumbar fusion. - No history of chest pain, pulmonary issues, or neurological symptoms. - No prior significant complications with anesthesia, though patient reports delayed emergence from anesthesia in past procedures. - Recent EKG indicates an inferior myocardial infarction of undetermined age; similar findings noted in previous EKGs from September and 2022. - No current cardiac symptoms; patient under regular cardiology care with Dr. Rubio. - Will sign preoperative clearance form contingent upon normalization of magnesium levels. 2. Hypomagnesemia (E83.42) - Recent lab work indicates critically low magnesium levels. - Initiated oral magnesium supplementation once daily for three days. - Ordered recheck of magnesium levels after three days; standing order placed for additional rechecks if necessary. - If levels normalize, continue supplementation for two additional days before discontinuation. - Prescription sent to [facility]. - Educated patient on potential side effects of oral magnesium, including diarrhea. 3. Degeneration of intervertebral disc of lumbar region with discogenic back pain and lower extremity pain (M51.362) - Scheduled for L4-L5 lumbar fusion. - No current changes in treatment plan; proceeding with surgical intervention. 4. Arteriosclerosis of coronary artery (I25.10) - EKG findings of inferior myocardial infarction of undetermined age; consistent with previous EKGs. - No current symptoms of chest pain or dyspnea. - Under regular follow-up with ash collector Dr. Minor; recent evaluation deemed stable. 5. Essential (primary) hypertension (I10) - Blood pressure readings stable; no recent episodes of hypotension reported. - Continue current antihypertensive regimen. 6. Type 2 diabetes mellitus without complication, without long-term current use of insulin (HCC) (E11.9) - Hemoglobin A1c at 6.5%, indicating good glycemic control. - Continue current diabetic management. 7. Anemia due to vitamin B12 deficiency, unspecified B12 deficiency type (D51.9) - Previously low B12 levels managed with monthly intramuscular B12 injections. - Missed recent scheduled injection; will resume monthly injections. - Arranged for B12 injections to be administered in-office to reduce patient cost and inconvenience. Kali Bacon MD 01/24/2025 Recording using [employer] software for draft documentation of the visit was discussed with the patient/authorized safety representative; all questions welcomed and answered. Patient/authorized safety representative agreed to proceed Patient is in office for pre surgical clearance. Patient is having 360 Lumbar fusion L4-L5 on 01-31-2025. Physician performing procedure is [facility]. Magnesium low at 0.9 per labs completed 01-22-2025 by surgeon Spring Shipley LPN January 24, 2025 2:03 PM documented in this encounter [facility] 01-24-2025 Note HNO ID: [id number] Author: SPRING SHIPLEY LPN Service: ? Author Type: LICENSED NURSE Type: Progress Notes Filed: 01/24/2025 14:53 Note Text: Patient is in office for pre surgical clearance. Patient is having 360 Lumbar fusion L4-L5 on 6-18-2025. Physician performing procedure is [facility]. Magnesium low at 0.9 per labs completed 01-22-2025 by surgeon Spring Shipley LPN January 24, 2025 2:03 PM [facility] 12-26-2024 Telephone encounter Note Patients phoned office requesting that patient be placed on Calcium with vitamin D per Dr. Issa with ortho. This nurse advised for Dr. Issa to fax our office the results of testing that indicated that patient is going to need this medication. This nurse provided fax number to Spring Shipley LPN December 26, 2024 4:25 PM [facility] 12-26-2024 Miscellaneous Notes Patients phoned office requesting that patient be placed on Calcium with vitamin D per Dr. Issa with ortho. This nurse advised for Dr. Issa to fax our office the results of testing that indicated that patient is going to need this medication. This nurse provided fax number to Spring Shipley LPN December 26, 2024 4:25 PM documented in this encounter [facility] 12-26-2024 Note HNO ID: [id number] Author: PATITO MCKEON LPN Service: ? Author Type: LICENSED NURSE Type: Progress Notes Filed: 12/26/2024 09:43 Note Text: Patient presents with: Imm/Inj Pt is identified by name and birthdate: Yes. Allergies and medications reviewed. Latex allergy? No. Does this patient have: Unplanned weight loss or gain of greater than 10 pounds, or a change of appetite over the last year? No Does the patient have any concerns about safety in the home/falls? Not at risk for falls Has the patient fallen in the past year? No Does the patient have difficulty performing or completing routine daily living activities? No Does this patient have concerns about personal safety? No Is patient having pain? Pain: No=0 (pain 0 on a scale of 0-10). Health Maintenance: Reviewed and updated. Does patient have MyChart access or Caregiver proxy: not applicable Pt/Caregiver willingness and readiness to learn assessed: Yes. Barriers: none Cyanocobalamin injection administered, tolerated well, no immediate adverse reactions noted. Patito Mckeon LPN [facility] 12-26-2024 History of Presen t illness Narrative Patient presents with: Imm/Inj Pt is identified by name and birthdate: Yes. Allergies and medications reviewed. Latex allergy? No. Does this patient have: Unplanned weight loss or gain of greater than 10 pounds, or a change of appetite over the last year? No Does the patient have any concerns about safety in the home/falls? Not at risk for falls Has the patient fallen in the past year? No Does the patient have difficulty performing or completing routine daily living activities? No Does this patient have concerns about personal safety? No Is patient having pain? Pain: No=0 (pain 0 on a scale of 0-10). Health Maintenance: Reviewed and updated. Does patient have MyChart access or Caregiver proxy: not applicable Pt/Caregiver willingness and readiness to learn assessed: Yes. Barriers: none Cyanocobalamin injection administered, tolerated well, no immediate adverse reactions noted. Patito Mckeon LPN documented in this encounter [facility] 12-06-2024 Telephone encounter Note Patient's Rody called requesting the following refill. Requested Prescriptions Pending Prescriptions Disp Refills lancets (ONE TOUCH DELICA) 33 gauge 100 each 3 Si each once daily. Patient last appointment: 11/20/2024 Next appointment 01/24/2025 Patient Phone numbers: [phone] (home) [phone] (work) Request is for script(s) to be escript to [facility] pharmacy. Ewa Mclain LPN [facility] 12-06-2024 Miscellaneous Notes Patient's Rody called requesting the following refill. Requested Prescriptions Pending Prescriptions Disp Refills lancets (ONE TOUCH DELICA) 33 gauge 100 each 3 Si each once daily. Patient last appointment: 11/20/2024 Next appointment 01/24/2025 Patient Phone numbers: [phone] (home) [phone] (work) Request is for script(s) to be escript to [facility] pharmacy. Ewa Mclain LPN documented in this encounter [facility] 11-30-2024 Telephone encounter Note Pt. Will continue coming in for her B-12 injections as directed. Patito Mckeon LPN [facility] 11-30-2024 Miscellaneous Notes Pt. Will continue coming in for her B-12 injections as directed. Patito Mckeon LPN Left message with pts. to have pt contact office concerning B-12 injections. Patito Mckeon LPN Returned call to patient. No answer. LVM to return call to office. Reaction to b12 injection is usual. Her B12 was very low (<150) so I would prefer to continue however since she has now received 3 doses would be OK with proceeding with just PO 1,000mcg daily. Rx sent to her pharmacy. Fanny Barron APRN.[employer] Patient called stating that she had B12 injection last week and felt nauseas and dizzy. She had another today and states she is feeling the same way. She is asking if there is something she should do or continue injections. Please advise. 11/05 AVS was updated on 11/07. Found notes this afternoon when checking how often QMO B12 would be given. weekly b12 x4 followed by monthly x2 - check labs 3 months OV with labs in 3 months, CBC, iron studies, b12, copper, zinc added to AVS on 11/07 and have been scheduled with patient. documented in this encounter [facility] 11-28-2024 Note HNO ID: [id number] Author: PATITO MCKEON LPN Service: ? Author Type: LICENSED NURSE Type: Progress Notes Filed: 11/28/2024 09:57 Note Text: Patient presents with: Imm/Inj Pt is identified by name and birthdate: Yes. Allergies and medications reviewed. Latex allergy? No. Does this patient have: Unplanned weight loss or gain of greater than 10 pounds, or a change of appetite over the last year? No Does the patient have any concerns about safety in the home/falls? Not at risk for falls Has the patient fallen in the past year? No Does the patient have difficulty performing or completing routine daily living activities? No Does this patient have concerns about personal safety? No Is patient having pain? Pain: No=0 (pain 0 on a scale of 0-10). Health Maintenance: Reviewed and updated. Does patient have MyChart access or Caregiver proxy: yes Pt/Caregiver willingness and readiness to learn assessed: Yes. Barriers: none cyanocobalamin injection administered, right Deltoid,tolerated well, no immediate adverse reactions noted. Patito Mckeon LPN [facility] 11-28-2024 History of Presen t illness Narrative Patient presents with: Imm/Inj Pt is identified by name and birthdate: Yes. Allergies and medications reviewed. Latex allergy? No. Does this patient have: Unplanned weight loss or gain of greater than 10 pounds, or a change of appetite over the last year? No Does the patient have any concerns about safety in the home/falls? Not at risk for falls Has the patient fallen in the past year? No Does the patient have difficulty performing or completing routine daily living activities? No Does this patient have concerns about personal safety? No Is patient having pain? Pain: No=0 (pain 0 on a scale of 0-10). Health Maintenance: Reviewed and updated. Does patient have MyChart access or Caregiver proxy: yes Pt/Caregiver willingness and readiness to learn assessed: Yes. Barriers: none cyanocobalamin injection administered, right Deltoid,tolerated well, no immediate adverse reactions noted. Patito Mckeon LPN documented in this encounter [facility] 11-27-2024 Telephone encounter Note Left message with pts. to have pt contact office concerning B-12 injections. Patito Mckeon LPN [facility] 11-27-2024 Telephone encounter Note Returned call to patient. No answer. LVM to return call to office. Reaction to b12 injection is usual. Her B12 was very low (<150) so I would prefer to continue however since she has now received 3 doses would be OK with proceeding with just PO 1,000mcg daily. Rx sent to her pharmacy. Fanny Barron APRN.[employer] TENDER [facility] 11-21-2024 Note HNO ID: [id number] Author: ANA DAWN LPN Service: ? Author Type: LICENSED NURSE Type: Progress Notes Filed: 11/21/2024 16:04 Note Text: Patient here for injection of B12. Given IM in left delt. Patient tolerated well. Ana Dawn LPN [facility] 11-21-2024 History of Presen t illness Narrative Patient here for injection of B12. Given IM in left delt. Patient tolerated well. Ana Dawn LPN documented in this encounter [facility] 11-21-2024 Telephone encounter Note Patient called stating that she had B12 injection last week and felt nauseas and dizzy. She had another today and states she is feeling the same way. She is asking if there is something she should do or continue injections. Please advise. [facility] Work Phone: 11-21-2024 Telephone encounter Note 11/05 AVS was updated on 11/07. Found notes this afternoon when checking how often QMO B12 would be given. weekly b12 x4 followed by monthly x2 - check labs 3 months OV with labs in 3 months, CBC, iron studies, b12, copper, zinc added to AVS on 11/07 and have been scheduled with patient. [facility] 11-21-2024 Telephone encounter Note Patient notified of result information on My Chart. Notification will be sent to this nurse if message has not been read within 2 days. Patient will be contacted by another form of communication if notification of not reading My Chart message is received. Spring Shipley LPN November 21, 2024 8:59 AM [facility] 11-21-2024 Miscellaneous Notes Patient notified of result information on My Chart. Notification will be sent to this nurse if message has not been read within 2 days. Patient will be contacted by another form of communication if notification of not reading My Chart message is received. Spring Shipley LPN November 21, 2024 8:59 AM ----- Message from Kali Bacon MD sent at 11/20/2024 5:46 PM EDT ----- Negative for fracture. documented in this encounter [facility] 11-21-2024 Telephone encounter Note ----- Message from Kali Bacon MD sent at 11/20/2024 5:46 PM EDT ----- Negative for fracture. [facility] 11-20-2024 History of Presen t illness Narrative Radiology Service Progress Note PATIENT NAME: Janessa Baron DATE OF SERVICE: November 20, 2024 TIME: 5:04 PM PATIENT IDENTITY VERIFICATION COMPLETED USING TWO (2) IDENTIFIERS: Name and Date of confirmed by patient verbally. FALL SCREENING: Has the patient had 2 falls in the last year or 1 fall with injury or currently using an Ambulatory Assistive Device (Walker, Cane, Wheelchair, Crutches, etc.)? No PATIENT GENDER DATA: Assigned female at . status: : No status: N/A PATIENT RELEVANT IMPLANT DATA REVIEWED: Not Applicable PATIENT PRESENTS WITH AN IMPLANTABLE OR ATTACHED PLUMBING MECHANIC: No RADIOLOGY DEPARTMENT: General X-ray: Exam(s) Completed: Upper Extremity X-Ray(s): Humerus, right PERIPHERAL IV DATA: Not applicable SIGNED BY: RT Lory(R) November 20, 2024 5:04 PM documented in this encounter [facility] 11-20-2024 Note HNO ID: [id number] Author: SUDARSHAN BOOTH RT(R) Service: ? Author Type: Technologist Type: Progress Notes Filed: 11/20/2024 17:04 Note Text: Radiology Service Progress Note PATIENT NAME: Janessa Baron DATE OF SERVICE: November 20, 2024 TIME: 5:04 PM PATIENT IDENTITY VERIFICATION COMPLETED USING TWO (2) IDENTIFIERS: Name and Date of confirmed by patient verbally. FALL SCREENING: Has the patient had 2 falls in the last year or 1 fall with injury or currently using an Ambulatory Assistive Device (Walker, Cane, Wheelchair, Crutches, etc.)? No PATIENT GENDER DATA: Assigned female at . status: : No status: N/A PATIENT RELEVANT IMPLANT DATA REVIEWED: Not Applicable PATIENT PRESENTS WITH AN IMPLANTABLE OR ATTACHED PLUMBING MECHANIC: No RADIOLOGY DEPARTMENT: General X-ray: Exam(s) Completed: Upper Extremity X-Ray(s): Humerus, right PERIPHERAL IV DATA: Not applicable SIGNED BY: RT Lory(R) November 20, 2024 5:04 PM [facility] 11-20-2024 Note HNO ID: [id number] Author: KALI BACON MD Service: ? Author Type: Physician Type: Progress Notes Filed: 11/20/2024 16:31 Note Text: Pavel Maradiaga is a 74-year-old female with a history of DM, presenting for right upper arm pain . Right Upper Arm Pain: - Sharp pain in the right upper arm, between the elbow and shoulder, x3 weeks. - Onset after moving the arm in a certain way; thought it was a muscle pull. - Pain is persistent; uses lidocaine patches for relief. - Takes acetaminophen and tramadol daily for back pain, unsure if it helps the arm pain. - Denies known trauma. Low B12 Levels: - Recent lab work showed low B12 levels, described as almost undetectable. - Takes omeprazole BID. - Receiving B12 injections; next injection scheduled for tomorrow. - Recent hospitalization with abnormal lab results. - Iron levels improved after 5 infusions. - Reports feeling better overall, with some weight loss. - Blood sugar levels have improved; A1c test scheduled for the . 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 Review of Systems GENERAL: Positive for mild weight loss, denies malaise or fevers. HEENT: Negative for frequent or significant headaches, no changes in vision or hearing, no nose bleeds or other nasal problems NECK: Negative for lumps, goiter, pain and significant neck swelling RESPIRATORY: Negative for cough, dyspnea or shortness of breath CARDIOVASCULAR: Negative for chest pain, leg swelling, CHF or palpitations GI: No nausea, vomiting, diarrhea, heartburn, abdominal pain, blood in stool or black stool GENITOURINARY: No history of dysuria, frequency or incontinence MUSCULOSKELETAL: Positive for upper arm muscle pain and back pain; negative for joint pain or swelling SKIN: Negative for lesions, rash and itching PSYCH: Negative for anxiety or depression HEMATOLOGY/LYMPHOLOGY: No bleeding concerns NEURO: No history of headaches, syncope, paralysis, seizures or tremors ENDOCRINE: No history of polydipsia, increased thirst or other endocrine symptoms PAST SURGICAL HISTORY Procedure Laterality Date BREAST BIOPSY Bilateral benign BREAST SURGERY HX CHOLECYSTECTOMY COLONOSCOPY 05/2017 COLONOSCOPY SCREENING 2019 EGD 04/2017 EGD DIAGNOSTIC 01/2023 F SALPINGO-OOPHORECTOMY Left IR RT HEART CATH 11/10/2022 PAST SURGICAL HISTORY OF left TM repair PAST SURGICAL HISTORY OF Left 12/1991 Repair of hole in left eardrum PAST SURGICAL HISTORY OF 06/03/1998 Scalp - removal of sebaceaous cyst PAST SURGICAL HISTORY OF 11/26/2022 Triple Bypass PAST SURGICAL HISTORY OF 01/25/2024 Left carotid artery stint REMV CATARACT EXTRACAP,INSERT LENS Left REMV CATARACT EXTRACAP,INSERT LENS Right TUBAL LIGATION PAST MEDICAL HISTORY Diagnosis Date Asthma (HCC) Carotid stenosis Delayed emergence from general anesthesia deep anesthesia 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) 05/22/2022 Diabetes mellitus, type 2 (HCC) Hyperlipidemia Hypertension Sliding hiatal hernia FAMILY HISTORY Problem Relation Age of Onset Heart Mother Stroke Mother Emphysema Father Heart Father Heart Attack Father Colon Cancer Sister 67 Diabetes Sister Diabetes Sister Heart Sister Thyroid Cancer Brother Social History Tobacco Use Smoking status: Never Smokeless tobacco: Never Vaping Use Vaping status: Never Used Substance Use Topics Alcohol use: Not Currently Drug use: Not Currently ALLERGIES Allergen Reactions Empagliflozin Unknown Metoclopramide Unknown Sulfamethoxazole-Tr* Unknown Morphine Unknown Augmentin [Amoxicil* Rash Cefzil [Cefprozil] Rash Dayquil Allergy 12-* Hives Dextromethorphan Hives Doxylamine Hives Erythromycin Rash Iodinated Contrast * Hives Ivp Dye [Iodine] Unknown knot on head Lincomycin Rash Pseudoephedrine Hives Reglan [Metoclopram* Intolerance Iaxobqk-Xpj-Mgq Red* Unknown Other reaction(s): Other Tequin [Gatifloxaci* Rash Doxycycline Unknown, Vomiting MEDICATIONS: triamcinolone acetonide (KENALOG) 0.1 % cream APPLY TO THE AFFECTED AREA(S) 1-2X DAILY OR WHEN RASH IS FLARED SITagliptin phosphate (JANUVIA) 100 mg tablet Take 1 tablet by mouth once daily. hydrOXYzine HCl (ATARAX) 25 mg tablet Take 1 tablet by mouth every 12 hours as needed for anxiety. predniSONE (DELTASONE) 20 mg tablet Take 3 tablets by mouth once daily. X3d, then 2 po every day x 3d then 1 po every day x 3d, then 1/2 po every day x 4d benzonatate (TESSALON PERLE) 100 mg capsule Take 1 capsule by mouth three times a day as needed. glimepiride (AMARYL) 4 mg tablet Take 1 tablet by mouth daily with breakfast. HYDROcodone-acetaminophen (NORCO) 5-325 mg per tablet Take 1 tablet by mouth every 8 hours as needed for pain. benzocaine/benzethon Cl (DERMOPLAST ANTIBACTERIAL TOPICAL) Apply to affected area as needed. lidocaine (SALONPAS) 4 % patch Apply 1 application as directed once daily. albuterol (P (more content not included)... [facility] 11-20-2024 History of Presen t illness Narrative Pavel Maradiaga is a 74-year-old female with a history of DM, presenting for right upper arm pain . Right Upper Arm Pain: - Sharp pain in the right upper arm, between the elbow and shoulder, x3 weeks. - Onset after moving the arm in a certain way; thought it was a muscle pull. - Pain is persistent; uses lidocaine patches for relief. - Takes acetaminophen and tramadol daily for back pain, unsure if it helps the arm pain. - Denies known trauma. Low B12 Levels: - Recent lab work showed low B12 levels, described as almost undetectable. - Takes omeprazole BID. - Receiving B12 injections; next injection scheduled for tomorrow. - Recent hospitalization with abnormal lab results. - Iron levels improved after 5 infusions. - Reports feeling better overall, with some weight loss. - Blood sugar levels have improved; A1c test scheduled for the . 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 Review of Systems GENERAL: Positive for mild weight loss, denies malaise or fevers. HEENT: Negative for frequent or significant headaches, no changes in vision or hearing, no nose bleeds or other nasal problems NECK: Negative for lumps, goiter, pain and significant neck swelling RESPIRATORY: Negative for cough, dyspnea or shortness of breath CARDIOVASCULAR: Negative for chest pain, leg swelling, CHF or palpitations GI: No nausea, vomiting, diarrhea, heartburn, abdominal pain, blood in stool or black stool GENITOURINARY: No history of dysuria, frequency or incontinence MUSCULOSKELETAL: Positive for upper arm muscle pain and back pain; negative for joint pain or swelling SKIN: Negative for lesions, rash and itching PSYCH: Negative for anxiety or depression HEMATOLOGY/LYMPHOLOGY: No bleeding concerns NEURO: No history of headaches, syncope, paralysis, seizures or tremors ENDOCRINE: No history of polydipsia, increased thirst or other endocrine symptoms PAST SURGICAL HISTORY Procedure Laterality Date BREAST BIOPSY Bilateral benign BREAST SURGERY HX CHOLECYSTECTOMY COLONOSCOPY 05/2017 COLONOSCOPY SCREENING 2019 EGD 04/2017 EGD DIAGNOSTIC 01/2023 F SALPINGO-OOPHORECTOMY Left IR RT HEART CATH 11/10/2022 PAST SURGICAL HISTORY OF left TM repair PAST SURGICAL HISTORY OF Left 12/1991 Repair of hole in left eardrum PAST SURGICAL HISTORY OF 06/03/1998 Scalp - removal of sebaceaous cyst PAST SURGICAL HISTORY OF 11/26/2022 Triple Bypass PAST SURGICAL HISTORY OF 01/25/2024 Left carotid artery stint REMV CATARACT EXTRACAP,INSERT LENS Left REMV CATARACT EXTRACAP,INSERT LENS Right TUBAL LIGATION PAST MEDICAL HISTORY Diagnosis Date Asthma (HCC) Carotid stenosis Delayed emergence from general anesthesia deep anesthesia 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) 05/22/2022 Diabetes mellitus, type 2 (HCC) Hyperlipidemia Hypertension Sliding hiatal hernia FAMILY HISTORY Problem Relation Age of Onset Heart Mother Stroke Mother Emphysema Father Heart Father Heart Attack Father Colon Cancer Sister 67 Diabetes Sister Diabetes Sister Heart Sister Thyroid Cancer Brother Social History Tobacco Use Smoking status: Never Smokeless tobacco: Never Vaping Use Vaping status: Never Used Substance Use Topics Alcohol use: Not Currently Drug use: Not Currently ALLERGIES Allergen Reactions Empagliflozin Unknown Metoclopramide Unknown Sulfamethoxazole-Tr* Unknown Morphine Unknown Augmentin [Amoxicil* Rash Cefzil [Cefprozil] Rash Dayquil Allergy 12-* Hives Dextromethorphan Hives Doxylamine Hives Erythromycin Rash Iodinated Contrast * Hives Ivp Dye [Iodine] Unknown knot on head Lincomycin Rash Pseudoephedrine Hives Reglan [Metoclopram* Intolerance Tpgzqrr-Mtq-Gke Red* Unknown Other reaction(s): Other Tequin [Gatifloxaci* Rash Doxycycline Unknown, Vomiting MEDICATIONS: triamcinolone acetonide (KENALOG) 0.1 % cream APPLY TO THE AFFECTED AREA(S) 1-2X DAILY OR WHEN RASH IS FLARED SITagliptin phosphate (JANUVIA) 100 mg tablet Take 1 tablet by mouth once daily. hydrOXYzine HCl (ATARAX) 25 mg tablet Take 1 tablet by mouth every 12 hours as needed for anxiety. predniSONE (DELTASONE) 20 mg tablet Take 3 tablets by mouth once daily. X3d, then 2 po every day x 3d then 1 po every day x 3d, then 1/2 po every day x 4d benzonatate (TESSALON PERLE) 100 mg capsule Take 1 capsule by mouth three times a day as needed. glimepiride (AMARYL) 4 mg tablet Take 1 tablet by mouth daily with breakfast. HYDROcodone-acetaminophen (NORCO) 5-325 mg per tablet Take 1 tablet by mouth every 8 hours as needed for pain. benzocaine/benzethon Cl (DERMOPLAST ANTIBACTERIAL TOPICAL) Apply to affected area as needed. lidocaine (SALONPAS) 4 % patch Apply 1 application as directed once daily. albuterol (PROVENTIL) 2.5 mg /3 mL (0.083 %) nebulizer solution INHALE WITH 1 VIAL IN NEBULIZER EVERY SIX HOURS NEEDED rosuvastatin (CRESTOR) 10 mg tablet Take 1 tablet by mouth daily at bedtime. metFORMIN (GLUCOPHAGE) 500 mg tablet Take 2 tablets by mouth two times a day with meals. blood sugar diagnostic ([employer] ULTRA TEST) test strip Monitor blood sugar daily and as needed. montelukast (SINGULAIR) 10 mg tablet Take 1 tablet by mouth daily at bedtime. omeprazole (PRILOSEC) 40 mg capsule Take 1 capsule by mouth two times a day. pioglitazone (ACTOS) 45 mg tablet Take 1 tablet by mouth once daily. lisinopril-hydroCHLOROthiazide (ZESTORETIC) 20-12.5 mg per tablet Take 1 tablet by mouth once daily. ketoconazole (NIZORAL) 2 % cream Apply to affected area once daily for 10 days. NYSTOP powder APPLY TO THE AFFECTED AREA(S) THREE TIMES DAILY sucralfate (CARAFATE) 1 gram tablet Take 1 g by mouth three times a day. 1/2 hour before meals budesonide (PULMICORT) 0.5 mg/2 mL nebulizer solution mix 2 ampules with saline and apply twice daily gel base no.41, bulk, (HYDROGEL) gel 1 Dose once daily. lancets (ONE TOUCH [employer]) 33 gauge 1 Each once daily. blood sugar diagnostic (ONETOUCH ULTRA TEST) test strip 1 Strip before meals and at bedtime. Use as instructed aspirin, enteric coated (ASPIRIN, ENTERIC COATED) 81 mg EC tablet Take 81 mg by mouth once daily. lancets (TRUEPLUS LANCETS) 33 gauge Monitor blood sugar daily and as needed. traMADol (ULTRAM) 50 mg tablet Take 50 mg by mouth every 6 hours as needed for pain. diclofenac (VOLTAREN) 1 % topical gel Apply to affected area four times daily. mag carb/aluminum hydrox/algin (GAVISCON ORAL) Take 1 tablet by mouth as needed. cetirizine HCl (ZYRTEC ORAL) Take 1 tablet by mouth once daily. ubidecarenone (CO Q-10 ORAL) Take 1 tablet by mouth once daily. Allergies, past surgical history, family history and past medical history were reviewed per this encounter. Medications were reviewed and verified. 11/15/2024 11/18/2024 INTAKE PAIN ASSESSMENT Are you having pain associated with your visit today? Yes, Provider notified Pain Level 0 4 Pain Location Arm-Right Description Aching;Tenderness Duration Units Weeks Frequency Continuous Intervention/Comfort measure Medication Pain Assessment Assessment If pain assessment is 0, no action needed. If pain assessment is positive, please see assessment and plain. Objective Labs: (No date) Laboratory Tests: - B12: Significantly low (almost undetectable) - RBC Indices: - MCV: 82.5 - RDW: 22.8 - Iron: Normal BP 108/68 (BP Site: Left Arm, BP Position: Sitting, BP Cuff Size: Regular Adult) Pulse 80 Temp 36.4 C (97.6 F) (Temporal) Resp 18 Ht 160 cm (5' 3) Wt 86.6 kg (191 lb) SpO2 98% BMI 33.83 kg/m Physical Exam GENERAL: NAD, alert and oriented. SKIN: Unremarkable, no rash or skin lesions. HEAD: Normocephalic. EYES: PERRLA, EOMI, conjunctiva clear. EARS: External ears normal, canals clear, TM's normal. NOSE/SINUSES: Nares normal. Septum midline. OROPHARYNX: Lips, mucosa, and tongue normal, good dentition. No oral lesions noted. NECK: Supple, no lymphadenopathy, normal thyroid, no carotid bruits. LUNGS: Clear to auscultation bilaterally, no wheezes/rhonchi/rales. HEART: Regular rate and rhythm, no murmurs. No ectopy. EXTREMITIES: Tenderness noted in the upper arm between the shoulder and elbow. No deformities, no skin discoloration, no edema. NEURO: Awake, alert and oriented x3, cranial nerves II-XII grossly intact, normal gait, no involuntary motions. Procedures Assessment and Plan 1. Right arm pain (M79.601) 2. Muscle strain of right upper arm, initial encounter (S46.911A) - Onset of pain approximately 3 weeks ago, localized between the elbow and shoulder. - Physical examination reveals tenderness and pain on specific movements; findings consistent with a muscle strain. - Ordered X-ray of the shoulder and arm to rule out other pathologies. - Continue current analgesics: acetaminophen and tramadol. - Advised rest and use of a compression sleeve for support. - Anticipated healing time may be up to 6 weeks. 3. Anemia due to vitamin B12 deficiency, unspecified B12 deficiency type (D51.9) - Recent lab results show low B12 levels, likely due to decreased absorption from chronic omeprazole use. - Refinery Process Engineer has initiated B12 injections; next injection scheduled for tomorrow, followed by another next week. - MCV is 82.5 fL, RDW is elevated at 22.8%. - Iron levels have improved following five infusions. - Discussed dietary intake and absorption issues; no dietary changes reported. - Will monitor response to B12 supplementation. Kali Bacon MD 11/20/2024 The patient consented to the use of [employer] software for draft documentation of the visit consistent with [facility] s Notice of Privacy Practices. Patient is in office with complaint of increased right arm pain. Patient states that arm has been hurting for a few weeks. Denies injury. No refills needed Spring Shipley LPN November 20, 2024 4:10 PM documented in this encounter [facility] 11-20-2024 Note HNO ID: [id number] Author: SPRING SHIPLEY LPN Service: ? Author Type: LICENSED NURSE Type: Progress Notes Filed: 11/20/2024 16:31 Note Text: Patient is in office with complaint of increased right arm pain. Patient states that arm has been hurting for a few weeks. Denies injury. No refills needed Spring Shipley LPN November 20, 2024 4:10 PM [facility] 11-15-2024 Attending History and physical note UPDATED HISTORY AND PHYSICAL EXAMINATION SERVICE DATE: 11/15/2024 SERVICE TIME: 12:56 Participation of a fellow, resident, medical student, or advanced practice provider student in performing the sensitive examination was discussed with the patient or authorized safety representative. The patient or authorized safety representative has agreed to proceed with the sensitive examination. PHYSICAL EXAM MUST BE COMPLETED ON ADMISSION The History and Physical (completed in the past 30 days) has been reviewed and the patient has been examined. The contents accurately reflect the patient's condition with the following additions or revisions since the H&P was completed. Examination indicates no changes. This H&P can be found in the Electronic Medical Record . SIGNATURE: Marce Larkin MD PATIENT NAME: Janessa aBron DATE: November 15, 2024 TIME: 12:56 PM Source Note - Marce Larkin MD - 11/15/2024 1:30 PM EDT HISTORY AND PHYSICAL Janessa Baron : 1950 REFERRING PHYSICIAN: [address] [facility] [address] CHIEF COMPLAINT: Patient presents with: colon consult HPI: Janessa is a 74 year old female referred for endoscopy. Janessa notes chronic MY. Last H&H 08/21/24 9.5 & 31.9. Plts 437. She notes 5 surgeries in the 1.5 year including: triple bypass 11/26/2022, torn meniscus, L carotid surg 01/25/24, cholecystectomy. Was due to have L4/L5 laminectomy but was postponed d/t elevated A1C. Janessa denies abdominal pain.. Janessa denies diarrhea. Janessa notes recent history of constipation. -while getting iron infusions. Completed all 5 infusions & not on oral iron -was using fiber for relief Janessa denies a change in bowel habits. Janessa denies melena. Janessa denies bright red blood per rectum. Janessa denies hemorrhoids. Janessa notes family history of colon issues. Colon cancer in sister Janessa notes occasional heartburn. Janessa denies dysphagia. Janessa denies a history of ulcers/ peptic ulcer disease. Medical history is significant for HTN, CAD, PAF, asthma, and T2DM. Follows with [facility]. Last OV 09/06/24. Hx of CABG x 3 in 2022. She also had a left carotid artery stent placed summer. Post-op A.Fib- wore a holter monitor which was turned in on 09/11/24 with no evidence of A Fib. Janessa has undergone prior endoscopy. Last colonoscopy was 04/[address] Edgar at [facility]. Sedation:Fentanyl 100 micrograms IV, Midazolam 5 mg IV Impression: - The entire examined colon is normal. Biopsied. Last EGD was at [place] with Dr. Arredondo 01/2023. Sedation: MAC Impression: - Multiple plaques in the middle third of the esophagus and in the lower third of the esophagus. Brushings performed. - Bilious gastric fluid. - Gastritis. Biopsied. - Normal examined duodenum. Biopsied. FINAL DIAGNOSIS A - ESOPHAGEAL BRUSH: Negative for malignant cells. 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 CURRENT MEDICATIONS Current Outpatient Medications Medication Sig HYDROcodone-acetaminophen (NORCO) 5-325 mg per tablet Take 1 tablet by mouth every 8 hours as needed for pain. benzocaine/benzethon Cl (DERMOPLAST ANTIBACTERIAL TOPICAL) Apply to affected area as needed. lidocaine (SALONPAS) 4 % patch Apply 1 application as directed once daily. empagliflozin (JARDIANCE) 10 mg tablet Take 1 tablet by mouth daily with breakfast. albuterol (PROVENTIL) 2.5 mg /3 mL (0.083 %) nebulizer solution INHALE WITH 1 VIAL IN NEBULIZER EVERY SIX HOURS NEEDED rosuvastatin (CRESTOR) 10 mg tablet Take 1 tablet by mouth daily at bedtime. metFORMIN (GLUCOPHAGE) 500 mg tablet Take 2 tablets by mouth two times a day with meals. blood sugar diagnostic (ONETOUCH ULTRA TEST) test strip Monitor blood sugar daily and as needed. glimepiride (AMARYL) 4 mg tablet Take 1 tablet by mouth daily with breakfast. montelukast (SINGULAIR) 10 mg tablet Take 1 tablet by mouth daily at bedtime. omeprazole (PRILOSEC) 40 mg capsule Take 1 capsule by mouth two times a day. pioglitazone (ACTOS) 45 mg tablet Take 1 tablet by mouth once daily. lisinopril-hydroCHLOROthiazide (ZESTORETIC) 20-12.5 mg per tablet Take 1 tablet by mouth once daily. ketoconazole (NIZORAL) 2 % cream Apply to affected area once daily for 10 days. NYSTOP powder APPLY TO THE AFFECTED AREA(S) THREE TIMES DAILY sucralfate (CARAFATE) 1 gram tablet Take 1 g by mouth three times a day. 1/2 hour before meals budesonide (PULMICORT) 0.5 mg/2 mL nebulizer solution mix 2 ampules with saline and apply twice daily gel base no.41, bulk, (HYDROGEL) gel 1 Dose once daily. lancets (ONE TOUCH [employer]) 33 gauge 1 Each once daily. blood sugar diagnostic (ONETOUCH ULTRA TEST) test strip 1 Strip before meals and at bedtime. Use as instructed aspirin, enteric coated (ASPIRIN, ENTERIC COATED) 81 mg EC tablet Take 81 mg by mouth once daily. lancets (TRUEPLUS LANCETS) 33 gauge Monitor blood sugar daily and as needed. traMADol (ULTRAM) 50 mg tablet Take 50 mg by mouth every 6 hours as needed for pain. diclofenac (VOLTAREN) 1 % topical gel Apply to affected area four times daily. mag carb/aluminum hydrox/algin (GAVISCON ORAL) Take 1 tablet by mouth as needed. cetirizine HCl (ZYRTEC ORAL) Take 1 tablet by mouth once daily. ubidecarenone (CO Q-10 ORAL) Take by mouth. peg 3350-Electrolytes (GOLYTELY) 236-22.74-6.74 -5.86 gram suspension Take 4,000 mL by mouth one time only for 1 dose. Refer to printed prep instructions from your provider. No current facility-administered medications for this visit. ALLERGIES: Metoclopramide, Sulfamethoxazole-Trimethoprim, Morphine, Acetaminophen, Augmentin [Amoxicillin-Pot Clavulanate], Cefzil [Cefprozil], Dayquil Allergy 12-Hr, Dextromethorphan, Doxylamine, Erythromycin, Iodinated Contrast Media, Ivp Dye [Iodine], Lincomycin, Pseudoephedrine, Reglan [Metoclopramide Hcl], Wncgvux-Joo-Zre Reductase Inhibitors, Tequin [Gatifloxacin], and Doxycycline PAST MEDICAL HISTORY PAST MEDICAL HISTORY Diagnosis Date Asthma Carotid stenosis Delayed emergence from general anesthesia deep anesthesia 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) 05/22/2022 Diabetes mellitus, type 2 (HCC) Hyperlipidemia Hypertension Sliding hiatal hernia PAST SURGICAL HISTORY PAST SURGICAL HISTORY Procedure Laterality Date BREAST BIOPSY Bilateral benign BREAST SURGERY HX CHOLECYSTECTOMY COLONOSCOPY 05/2017 COLONOSCOPY SCREENING 2019 EGD 04/2017 EGD DIAGNOSTIC 01/2023 F SALPINGO-OOPHORECTOMY Left IR RT HEART CATH 11/10/2022 PAST SURGICAL HISTORY OF left TM repair PAST SURGICAL HISTORY OF Left 12/1991 Repair of hole in left eardrum PAST SURGICAL HISTORY OF 06/03/1998 Scalp - removal of sebaceaous cyst PAST SURGICAL HISTORY OF 11/26/2022 Triple Bypass PAST SURGICAL HISTORY OF 01/25/2024 Left carotid artery stint REMV CATARACT EXTRACAP,INSERT LENS Left REMV CATARACT EXTRACAP,INSERT LENS Right TUBAL LIGATION FAMILY HISTORY FAMILY HISTORY Problem Relation Age of Onset Heart Mother Stroke Mother Emphysema Father Heart Father Heart Attack Father Colon Cancer Sister 67 Diabetes Sister Diabetes Sister Heart Sister Thyroid Cancer Brother SOCIAL HISTORY Social History Tobacco Use Smoking status: Never Smokeless tobacco: Never Vaping Use Vaping status: Never Used Substance Use Topics Alcohol use: Not Currently Drug use: Not Currently REVIEW OF SYMPTOMS: The review of systems data was entered by the nurse and reviewed by me SEE NURSING NOTE PHYSICAL EXAMINATION: General: The patient is 74 year old, female well nourished, well hydrated in no acute distress. The patient is oriented to time, place, and person. VITALS: Blood pressure 119/72, pulse 89, weight 88.9 kg (196 lb), SpO2 98%. Body mass index is 35.61 kg/m . HEENT: Normal cephalic, ataumatic, pupils are equally round, sclera are anicteric, mucous membranes are moist, oropharynx is clear. Neck has no masses, asymmetry or lymphadenopathy. Respiratory: Clear to auscultation and percussion. Normal respiratory excursion and pattern. Cardiac: Examination is regular rate and rhythm. Normal S1/S2 Abdominal exam: Soft, nontender, with no palpable masses. No hepatosplenomegaly. No palpable hernias. Extremities: no clubbing, cyanosis or edema. No adenopathy. LABORATORY VALUES: As Noted RADIOLOGIC STUDIES: As Noted Assessment IMPRESSION: MY, family history of colon cancer PLAN: I have reviewed my findings with the surgeon. Will plan for upper and lower endoscopy. We discussed the risks and benefits of the planned endoscopy. I have informed the patient that complications can occur including failure to complete the endoscopy and perforation. Janessa had the opportunity to ask questions concerning the planned endoscopy. My staff has also explained the procedure to the patient in understandable terms and has given the patient printed material concerning the procedure. Janessa freely consents to surgery. I plan to use Golytely bowel preparation Patient instructed to contact PCP for instructions regarding diabetic medication, which may require adjustment during bowel preparation and/or day of procedure. Instructed to hold Jardiance for 3 days prior to endoscopy. I have explained to the patient the difference between IV conscious sedation and MAC anesthesia - and I have offered either, according to the patient's wishes. I have explained that with IV conscious sedation there is no anesthesia provider available and therefore there is a limitation of the amount of IV medications that can be given and that the patient may wake up in the middle of the procedure and/or experience pain/discomfort during the procedure. Further discussion was done and the patient was given the opportunity to ask questions and all questions were answered. Janessa chooses MAC anesthesia. Janessa was counseled that if there are changes in his/her medical condition, to let the office know if surgery should proceed. If there are changes in patient's medical condition from time of this encounter to the day of the procedure that preclude anesthesia, patient may have procedure cancelled for patient's safety. Diagnoses: (Z80.0) Family history of colon cancer (primary encounter diagnosis) (D50.9) Iron deficiency anemia, unspecified iron deficiency anemia type Consultation requested by Fanny Barron CNP for an opinion regarding MY. My final recommendations will be communicated back to the requesting physician by way of shared Medical record or letter to requesting physician via US mail. Portions of this documentation were copied and pasted from previous office visit notes in order to provide a cohesive continuity of the history. The note has been reviewed and edited and updated as necessary. Halie Jin APRN.[employer] [facility] Work Phone: 11-15-2024 History and physical note HISTORY AND PHYSICAL Janessa Baron : 1950 REFERRING PHYSICIAN: Fanny Barron [address] [facility] [address] CHIEF COMPLAINT: Patient presents with: colon consult HPI: Janessa is a 74 year old female referred for endoscopy. Janessa notes chronic MY. Last H&H 08/21/24 9.5 & 31.9. Plts 437. She notes 5 surgeries in the 1.5 year including: triple bypass 11/26/2022, torn meniscus, L carotid surg 01/25/24, cholecystectomy. Was due to have L4/L5 laminectomy but was postponed d/t elevated A1C. Janessa denies abdominal pain.. Janessa denies diarrhea. Janessa notes recent history of constipation. -while getting iron infusions. Completed all 5 infusions & not on oral iron -was using fiber for relief Janessa denies a change in bowel habits. Janessa denies melena. Janessa denies bright red blood per rectum. Janessa denies hemorrhoids. Janessa notes family history of colon issues. Colon cancer in sister Janessa notes occasional heartburn. Janessa denies dysphagia. Janessa denies a history of ulcers/ peptic ulcer disease. Medical history is significant for HTN, CAD, PAF, asthma, and T2DM. Follows with [facility]. Last OV 09/06/24. Hx of CABG x 3 in 2022. She also had a left carotid artery stent placed summer. Post-op A.Fib- wore a holter monitor which was turned in on 09/11/24 with no evidence of A Fib. Janessa has undergone prior endoscopy. Last colonoscopy was 04/[address] Edgar at [facility]. Sedation:Fentanyl 100 micrograms IV, Midazolam 5 mg IV Impression: - The entire examined colon is normal. Biopsied. Last EGD was at [place] with Dr. Arredondo 01/2023. Sedation: MAC Impression: - Multiple plaques in the middle third of the esophagus and in the lower third of the esophagus. Brushings performed. - Bilious gastric fluid. - Gastritis. Biopsied. - Normal examined duodenum. Biopsied. FINAL DIAGNOSIS A - ESOPHAGEAL BRUSH: Negative for malignant cells. 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 CURRENT MEDICATIONS Current Outpatient Medications Medication Sig HYDROcodone-acetaminophen (NORCO) 5-325 mg per tablet Take 1 tablet by mouth every 8 hours as needed for pain. benzocaine/benzethon Cl (DERMOPLAST ANTIBACTERIAL TOPICAL) Apply to affected area as needed. lidocaine (SALONPAS) 4 % patch Apply 1 application as directed once daily. empagliflozin (JARDIANCE) 10 mg tablet Take 1 tablet by mouth daily with breakfast. albuterol (PROVENTIL) 2.5 mg /3 mL (0.083 %) nebulizer solution INHALE WITH 1 VIAL IN NEBULIZER EVERY SIX HOURS NEEDED rosuvastatin (CRESTOR) 10 mg tablet Take 1 tablet by mouth daily at bedtime. metFORMIN (GLUCOPHAGE) 500 mg tablet Take 2 tablets by mouth two times a day with meals. blood sugar diagnostic ([employer] ULTRA TEST) test strip Monitor blood sugar daily and as needed. glimepiride (AMARYL) 4 mg tablet Take 1 tablet by mouth daily with breakfast. montelukast (SINGULAIR) 10 mg tablet Take 1 tablet by mouth daily at bedtime. omeprazole (PRILOSEC) 40 mg capsule Take 1 capsule by mouth two times a day. pioglitazone (ACTOS) 45 mg tablet Take 1 tablet by mouth once daily. lisinopril-hydroCHLOROthiazide (ZESTORETIC) 20-12.5 mg per tablet Take 1 tablet by mouth once daily. ketoconazole (NIZORAL) 2 % cream Apply to affected area once daily for 10 days. NYSTOP powder APPLY TO THE AFFECTED AREA(S) THREE TIMES DAILY sucralfate (CARAFATE) 1 gram tablet Take 1 g by mouth three times a day. 1/2 hour before meals budesonide (PULMICORT) 0.5 mg/2 mL nebulizer solution mix 2 ampules with saline and apply twice daily gel base no.41, bulk, (HYDROGEL) gel 1 Dose once daily. lancets (ONE TOUCH [employer]) 33 gauge 1 Each once daily. blood sugar diagnostic (ONETOUCH ULTRA TEST) test strip 1 Strip before meals and at bedtime. Use as instructed aspirin, enteric coated (ASPIRIN, ENTERIC COATED) 81 mg EC tablet Take 81 mg by mouth once daily. lancets (TRUEPLUS LANCETS) 33 gauge Monitor blood sugar daily and as needed. traMADol (ULTRAM) 50 mg tablet Take 50 mg by mouth every 6 hours as needed for pain. diclofenac (VOLTAREN) 1 % topical gel Apply to affected area four times daily. mag carb/aluminum hydrox/algin (GAVISCON ORAL) Take 1 tablet by mouth as needed. cetirizine HCl (ZYRTEC ORAL) Take 1 tablet by mouth once daily. ubidecarenone (CO Q-10 ORAL) Take by mouth. peg 3350-Electrolytes (GOLYTELY) 236-22.74-6.74 -5.86 gram suspension Take 4,000 mL by mouth one time only for 1 dose. Refer to printed prep instructions from your provider. No current facility-administered medications for this visit. ALLERGIES: Metoclopramide, Sulfamethoxazole-Trimethoprim, Morphine, Acetaminophen, Augmentin [Amoxicillin-Pot Clavulanate], Cefzil [Cefprozil], Dayquil Allergy 12-Hr, Dextromethorphan, Doxylamine, Erythromycin, Iodinated Contrast Media, Ivp Dye [Iodine], Lincomycin, Pseudoephedrine, Reglan [Metoclopramide Hcl], [employer]-Ram-Juf Reductase Inhibitors, Tequin [Gatifloxacin], and Doxycycline PAST MEDICAL HISTORY PAST MEDICAL HISTORY Diagnosis Date Asthma Carotid stenosis Delayed emergence from general anesthesia deep anesthesia 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) 05/22/2022 Diabetes mellitus, type 2 (HCC) Hyperlipidemia Hypertension Sliding hiatal hernia PAST SURGICAL HISTORY PAST SURGICAL HISTORY Procedure Laterality Date BREAST BIOPSY Bilateral benign BREAST SURGERY HX CHOLECYSTECTOMY COLONOSCOPY 05/2017 COLONOSCOPY SCREENING 2019 EGD 04/2017 EGD DIAGNOSTIC 01/2023 F SALPINGO-OOPHORECTOMY Left IR RT HEART CATH 11/10/2022 PAST SURGICAL HISTORY OF left TM repair PAST SURGICAL HISTORY OF Left 12/1991 Repair of hole in left eardrum PAST SURGICAL HISTORY OF 06/03/1998 Scalp - removal of sebaceaous cyst PAST SURGICAL HISTORY OF 11/26/2022 Triple Bypass PAST SURGICAL HISTORY OF 01/25/2024 Left carotid artery stint REMV CATARACT EXTRACAP,INSERT LENS Left REMV CATARACT EXTRACAP,INSERT LENS Right TUBAL LIGATION FAMILY HISTORY FAMILY HISTORY Problem Relation Age of Onset Heart Mother Stroke Mother Emphysema Father Heart Father Heart Attack Father Colon Cancer Sister 67 Diabetes Sister Diabetes Sister Heart Sister Thyroid Cancer Brother SOCIAL HISTORY Social History Tobacco Use Smoking status: Never Smokeless tobacco: Never Vaping Use Vaping status: Never Used Substance Use Topics Alcohol use: Not Currently Drug use: Not Currently REVIEW OF SYMPTOMS: The review of systems data was entered by the nurse and reviewed by me SEE NURSING NOTE PHYSICAL EXAMINATION: General: The patient is 74 year old, female well nourished, well hydrated in no acute distress. The patient is oriented to time, place, and person. VITALS: Blood pressure 119/72, pulse 89, weight 88.9 kg (196 lb), SpO2 98%. Body mass index is 35.61 kg/m . HEENT: Normal cephalic, ataumatic, pupils are equally round, sclera are anicteric, mucous membranes are moist, oropharynx is clear. Neck has no masses, asymmetry or lymphadenopathy. Respiratory: Clear to auscultation and percussion. Normal respiratory excursion and pattern. Cardiac: Examination is regular rate and rhythm. Normal S1/S2 Abdominal exam: Soft, nontender, with no palpable masses. No hepatosplenomegaly. No palpable hernias. Extremities: no clubbing, cyanosis or edema. No adenopathy. LABORATORY VALUES: As Noted RADIOLOGIC STUDIES: As Noted Assessment IMPRESSION: MY, family history of colon cancer PLAN: I have reviewed my findings with the surgeon. Will plan for upper and lower endoscopy. We discussed the risks and benefits of the planned endoscopy. I have informed the patient that complications can occur including failure to complete the endoscopy and perforation. Janessa had the opportunity to ask questions concerning the planned endoscopy. My staff has also explained the procedure to the patient in understandable terms and has given the patient printed material concerning the procedure. Janessa freely consents to surgery. I plan to use Golytely bowel preparation Patient instructed to contact PCP for instructions regarding diabetic medication, which may require adjustment during bowel preparation and/or day of procedure. Instructed to hold Jardiance for 3 days prior to endoscopy. I have explained to the patient the difference between IV conscious sedation and MAC anesthesia - and I have offered either, according to the patient's wishes. I have explained that with IV conscious sedation there is no anesthesia provider available and therefore there is a limitation of the amount of IV medications that can be given and that the patient may wake up in the middle of the procedure and/or experience pain/discomfort during the procedure. Further discussion was done and the patient was given the opportunity to ask questions and all questions were answered. Janessa chooses MAC anesthesia. Janessa was counseled that if there are changes in his/her medical condition, to let the office know if surgery should proceed. If there are changes in patient's medical condition from time of this encounter to the day of the procedure that preclude anesthesia, patient may have procedure cancelled for patient's safety. Diagnoses: (Z80.0) Family history of colon cancer (primary encounter diagnosis) (D50.9) Iron deficiency anemia, unspecified iron deficiency anemia type Consultation requested by Fanny Barron CNP for an opinion regarding MY. My final recommendations will be communicated back to the requesting physician by way of shared Medical record or letter to requesting physician via US mail. Portions of this documentation were copied and pasted from previous office visit notes in order to provide a cohesive continuity of the history. The note has been reviewed and edited and updated as necessary. Halie Jin APRN.[employer] [facility] 11-15-2024 History and physical note UPDATED HISTORY AND PHYSICAL EXAMINATION SERVICE DATE: 11/15/2024 SERVICE TIME: 12:56 Participation of a fellow, resident, medical student, or advanced practice provider student in performing the sensitive examination was discussed with the patient or authorized safety representative. The patient or authorized safety representative has agreed to proceed with the sensitive examination. PHYSICAL EXAM MUST BE COMPLETED ON ADMISSION The History and Physical (completed in the past 30 days) has been reviewed and the patient has been examined. The contents accurately reflect the patient's condition with the following additions or revisions since the H&P was completed. Examination indicates no changes. This H&P can be found in the Electronic Medical Record . SIGNATURE: Marce Larkin MD PATIENT NAME: Janessa Baron DATE: November 15, 2024 TIME: 12:56 PM Source Note - Marce Larkin MD - 11/15/2024 1:30 PM EDT HISTORY AND PHYSICAL Janessa Baron : 1950 REFERRING PHYSICIAN: Fanny Barron [address] [facility] [address] CHIEF COMPLAINT: Patient presents with: colon consult HPI: Janessa is a 74 year old female referred for endoscopy. Janessa notes chronic MY. Last H&H 08/21/24 9.5 & 31.9. Plts 437. She notes 5 surgeries in the 1.5 year including: triple bypass 11/26/2022, torn meniscus, L carotid surg 01/25/24, cholecystectomy. Was due to have L4/L5 laminectomy but was postponed d/t elevated A1C. Janessa denies abdominal pain.. Janessa denies diarrhea. Janessa notes recent history of constipation. -while getting iron infusions. Completed all 5 infusions & not on oral iron -was using fiber for relief Janessa denies a change in bowel habits. Janessa denies melena. Janessa denies bright red blood per rectum. Janessa denies hemorrhoids. Janessa notes family history of colon issues. Colon cancer in sister Janessa notes occasional heartburn. Janessa denies dysphagia. Janessa denies a history of ulcers/ peptic ulcer disease. Medical history is significant for HTN, CAD, PAF, asthma, and T2DM. Follows with [facility]. Last OV 09/06/24. Hx of CABG x 3 in 2022. She also had a left carotid artery stent placed summer. Post-op A.Fib- wore a holter monitor which was turned in on 09/11/24 with no evidence of A Fib. Janessa has undergone prior endoscopy. Last colonoscopy was 04/[address] Edgar at [facility]. Sedation:Fentanyl 100 micrograms IV, Midazolam 5 mg IV Impression: - The entire examined colon is normal. Biopsied. Last EGD was at [place] with Dr. Arredondo 01/2023. Sedation: MAC Impression: - Multiple plaques in the middle third of the esophagus and in the lower third of the esophagus. Brushings performed. - Bilious gastric fluid. - Gastritis. Biopsied. - Normal examined duodenum. Biopsied. FINAL DIAGNOSIS A - ESOPHAGEAL BRUSH: Negative for malignant cells. 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 CURRENT MEDICATIONS Current Outpatient Medications Medication Sig HYDROcodone-acetaminophen (NORCO) 5-325 mg per tablet Take 1 tablet by mouth every 8 hours as needed for pain. benzocaine/benzethon Cl (DERMOPLAST ANTIBACTERIAL TOPICAL) Apply to affected area as needed. lidocaine (SALONPAS) 4 % patch Apply 1 application as directed once daily. empagliflozin (JARDIANCE) 10 mg tablet Take 1 tablet by mouth daily with breakfast. albuterol (PROVENTIL) 2.5 mg /3 mL (0.083 %) nebulizer solution INHALE WITH 1 VIAL IN NEBULIZER EVERY SIX HOURS NEEDED rosuvastatin (CRESTOR) 10 mg tablet Take 1 tablet by mouth daily at bedtime. metFORMIN (GLUCOPHAGE) 500 mg tablet Take 2 tablets by mouth two times a day with meals. blood sugar diagnostic (ONETOUCH ULTRA TEST) test strip Monitor blood sugar daily and as needed. glimepiride (AMARYL) 4 mg tablet Take 1 tablet by mouth daily with breakfast. montelukast (SINGULAIR) 10 mg tablet Take 1 tablet by mouth daily at bedtime. omeprazole (PRILOSEC) 40 mg capsule Take 1 capsule by mouth two times a day. pioglitazone (ACTOS) 45 mg tablet Take 1 tablet by mouth once daily. lisinopril-hydroCHLOROthiazide (ZESTORETIC) 20-12.5 mg per tablet Take 1 tablet by mouth once daily. ketoconazole (NIZORAL) 2 % cream Apply to affected area once daily for 10 days. NYSTOP powder APPLY TO THE AFFECTED AREA(S) THREE TIMES DAILY sucralfate (CARAFATE) 1 gram tablet Take 1 g by mouth three times a day. 1/2 hour before meals budesonide (PULMICORT) 0.5 mg/2 mL nebulizer solution mix 2 ampules with saline and apply twice daily gel base no.41, bulk, (HYDROGEL) gel 1 Dose once daily. lancets (ONE TOUCH [employer]) 33 gauge 1 Each once daily. blood sugar diagnostic (ONETOUCH ULTRA TEST) test strip 1 Strip before meals and at bedtime. Use as instructed aspirin, enteric coated (ASPIRIN, ENTERIC COATED) 81 mg EC tablet Take 81 mg by mouth once daily. lancets (TRUEPLUS LANCETS) 33 gauge Monitor blood sugar daily and as needed. traMADol (ULTRAM) 50 mg tablet Take 50 mg by mouth every 6 hours as needed for pain. diclofenac (VOLTAREN) 1 % topical gel Apply to affected area four times daily. mag carb/aluminum hydrox/algin (GAVISCON ORAL) Take 1 tablet by mouth as needed. cetirizine HCl (ZYRTEC ORAL) Take 1 tablet by mouth once daily. ubidecarenone (CO Q-10 ORAL) Take by mouth. peg 3350-Electrolytes (GOLYTELY) 236-22.74-6.74 -5.86 gram suspension Take 4,000 mL by mouth one time only for 1 dose. Refer to printed prep instructions from your provider. No current facility-administered medications for this visit. ALLERGIES: Metoclopramide, Sulfamethoxazole-Trimethoprim, Morphine, Acetaminophen, Augmentin [Amoxicillin-Pot Clavulanate], Cefzil [Cefprozil], Dayquil Allergy 12-Hr, Dextromethorphan, Doxylamine, Erythromycin, Iodinated Contrast Media, Ivp Dye [Iodine], Lincomycin, Pseudoephedrine, Reglan [Metoclopramide Hcl], Ofuhfkv-Afw-Bng Reductase Inhibitors, Tequin [Gatifloxacin], and Doxycycline PAST MEDICAL HISTORY PAST MEDICAL HISTORY Diagnosis Date Asthma Carotid stenosis Delayed emergence from general anesthesia deep anesthesia 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) 05/22/2022 Diabetes mellitus, type 2 (HCC) Hyperlipidemia Hypertension Sliding hiatal hernia PAST SURGICAL HISTORY PAST SURGICAL HISTORY Procedure Laterality Date BREAST BIOPSY Bilateral benign BREAST SURGERY HX CHOLECYSTECTOMY COLONOSCOPY 05/2017 COLONOSCOPY SCREENING 2019 EGD 04/2017 EGD DIAGNOSTIC 01/2023 F SALPINGO-OOPHORECTOMY Left IR RT HEART CATH 11/10/2022 PAST SURGICAL HISTORY OF left TM repair PAST SURGICAL HISTORY OF Left 12/1991 Repair of hole in left eardrum PAST SURGICAL HISTORY OF 06/03/1998 Scalp - removal of sebaceaous cyst PAST SURGICAL HISTORY OF 11/26/2022 Triple Bypass PAST SURGICAL HISTORY OF 01/25/2024 Left carotid artery stint REMV CATARACT EXTRACAP,INSERT LENS Left REMV CATARACT EXTRACAP,INSERT LENS Right TUBAL LIGATION FAMILY HISTORY FAMILY HISTORY Problem Relation Age of Onset Heart Mother Stroke Mother Emphysema Father Heart Father Heart Attack Father Colon Cancer Sister 67 Diabetes Sister Diabetes Sister Heart Sister Thyroid Cancer Brother SOCIAL HISTORY Social History Tobacco Use Smoking status: Never Smokeless tobacco: Never Vaping Use Vaping status: Never Used Substance Use Topics Alcohol use: Not Currently Drug use: Not Currently REVIEW OF SYMPTOMS: The review of systems data was entered by the nurse and reviewed by me SEE NURSING NOTE PHYSICAL EXAMINATION: General: The patient is 74 year old, female well nourished, well hydrated in no acute distress. The patient is oriented to time, place, and person. VITALS: Blood pressure 119/72, pulse 89, weight 88.9 kg (196 lb), SpO2 98%. Body mass index is 35.61 kg/m . HEENT: Normal cephalic, ataumatic, pupils are equally round, sclera are anicteric, mucous membranes are moist, oropharynx is clear. Neck has no masses, asymmetry or lymphadenopathy. Respiratory: Clear to auscultation and percussion. Normal respiratory excursion and pattern. Cardiac: Examination is regular rate and rhythm. Normal S1/S2 Abdominal exam: Soft, nontender, with no palpable masses. No hepatosplenomegaly. No palpable hernias. Extremities: no clubbing, cyanosis or edema. No adenopathy. LABORATORY VALUES: As Noted RADIOLOGIC STUDIES: As Noted Assessment IMPRESSION: MY, family history of colon cancer PLAN: I have reviewed my findings with the surgeon. Will plan for upper and lower endoscopy. We discussed the risks and benefits of the planned endoscopy. I have informed the patient that complications can occur including failure to complete the endoscopy and perforation. Janessa had the opportunity to ask questions concerning the planned endoscopy. My staff has also explained the procedure to the patient in understandable terms and has given the patient printed material concerning the procedure. Janessa freely consents to surgery. I plan to use Golytely bowel preparation Patient instructed to contact PCP for instructions regarding diabetic medication, which may require adjustment during bowel preparation and/or day of procedure. Instructed to hold Jardiance for 3 days prior to endoscopy. I have explained to the patient the difference between IV conscious sedation and MAC anesthesia - and I have offered either, according to the patient's wishes. I have explained that with IV conscious sedation there is no anesthesia provider available and therefore there is a limitation of the amount of IV medications that can be given and that the patient may wake up in the middle of the procedure and/or experience pain/discomfort during the procedure. Further discussion was done and the patient was given the opportunity to ask questions and all questions were answered. Janessa chooses MAC anesthesia. Janessa was counseled that if there are changes in his/her medical condition, to let the office know if surgery should proceed. If there are changes in patient's medical condition from time of this encounter to the day of the procedure that preclude anesthesia, patient may have procedure cancelled for patient's safety. Diagnoses: (Z80.0) Family history of colon cancer (primary encounter diagnosis) (D50.9) Iron deficiency anemia, unspecified iron deficiency anemia type Consultation requested by Fanny Barron CNP for an opinion regarding MY. My final recommendations will be communicated back to the requesting physician by way of shared Medical record or letter to requesting physician via US mail. Portions of this documentation were copied and pasted from previous office visit notes in order to provide a cohesive continuity of the history. The note has been reviewed and edited and updated as necessary. Halie Jin APRN.[employer] HISTORY AND PHYSICAL Janessa Baron : 1950 REFERRING PHYSICIAN: [address] [facility] [id number] CHIEF COMPLAINT: Patient presents with: colon consult HPI: Janessa is a 74 year old female referred for endoscopy. Janessa notes chronic MY. Last H&H 08/21/24 9.5 & 31.9. Plts 437. She notes 5 surgeries in the 1.5 year including: triple bypass 11/26/2022, torn meniscus, L carotid surg 01/25/24, cholecystectomy. Was due to have L4/L5 laminectomy but was postponed d/t elevated A1C. Janesas denies abdominal pain.. Janessa denies diarrhea. Janessa notes recent history of constipation. -while getting iron infusions. Completed all 5 infusions & not on oral iron -was using fiber for relief Janessa denies a change in bowel habits. Janessa denies melena. Janessa denies bright red blood per rectum. Janessa denies hemorrhoids. Janessa notes family history of colon issues. Colon cancer in sister Janessa notes occasional heartburn. Janessa denies dysphagia. Janessa denies a history of ulcers/ peptic ulcer disease. Medical history is significant for HTN, CAD, PAF, asthma, and T2DM. Follows with [facility]. Last OV 09/06/24. Hx of CABG x 3 in 2022. She also had a left carotid artery stent placed summer. Post-op A.Fib- wore a holter monitor which was turned in on 09/11/24 with no evidence of A Fib. Janessa has undergone prior endoscopy. Last colonoscopy was 04/[address] Edgar at [facility]. Sedation:Fentanyl 100 micrograms IV, Midazolam 5 mg IV Impression: - The entire examined colon is normal. Biopsied. Last EGD was at [place] with Dr. Arredondo 01/2023. Sedation: MAC Impression: - Multiple plaques in the middle third of the esophagus and in the lower third of the esophagus. Brushings performed. - Bilious gastric fluid. - Gastritis. Biopsied. - Normal examined duodenum. Biopsied. FINAL DIAGNOSIS A - ESOPHAGEAL BRUSH: Negative for malignant cells. 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 CURRENT MEDICATIONS Current Outpatient Medications Medication Sig HYDROcodone-acetaminophen (NORCO) 5-325 mg per tablet Take 1 tablet by mouth every 8 hours as needed for pain. benzocaine/benzethon Cl (DERMOPLAST ANTIBACTERIAL TOPICAL) Apply to affected area as needed. lidocaine (SALONPAS) 4 % patch Apply 1 application as directed once daily. empagliflozin (JARDIANCE) 10 mg tablet Take 1 tablet by mouth daily with breakfast. albuterol (PROVENTIL) 2.5 mg /3 mL (0.083 %) nebulizer solution INHALE WITH 1 VIAL IN NEBULIZER EVERY SIX HOURS NEEDED rosuvastatin (CRESTOR) 10 mg tablet Take 1 tablet by mouth daily at bedtime. metFORMIN (GLUCOPHAGE) 500 mg tablet Take 2 tablets by mouth two times a day with meals. blood sugar diagnostic ([employer] ULTRA TEST) test strip Monitor blood sugar daily and as needed. glimepiride (AMARYL) 4 mg tablet Take 1 tablet by mouth daily with breakfast. montelukast (SINGULAIR) 10 mg tablet Take 1 tablet by mouth daily at bedtime. omeprazole (PRILOSEC) 40 mg capsule Take 1 capsule by mouth two times a day. pioglitazone (ACTOS) 45 mg tablet Take 1 tablet by mouth once daily. lisinopril-hydroCHLOROthiazide (ZESTORETIC) 20-12.5 mg per tablet Take 1 tablet by mouth once daily. ketoconazole (NIZORAL) 2 % cream Apply to affected area once daily for 10 days. NYSTOP powder APPLY TO THE AFFECTED AREA(S) THREE TIMES DAILY sucralfate (CARAFATE) 1 gram tablet Take 1 g by mouth three times a day. 1/2 hour before meals budesonide (PULMICORT) 0.5 mg/2 mL nebulizer solution mix 2 ampules with saline and apply twice daily gel base no.41, bulk, (HYDROGEL) gel 1 Dose once daily. lancets (ONE TOUCH DELBinfire) 33 gauge 1 Each once daily. blood sugar diagnostic ([employer] ULTRA TEST) test strip 1 Strip before meals and at bedtime. Use as instructed aspirin, enteric coated (ASPIRIN, ENTERIC COATED) 81 mg EC tablet Take 81 mg by mouth once daily. lancets (TRUEPLUS LANCETS) 33 gauge Monitor blood sugar daily and as needed. traMADol (ULTRAM) 50 mg tablet Take 50 mg by mouth every 6 hours as needed for pain. diclofenac (VOLTAREN) 1 % topical gel Apply to affected area four times daily. mag carb/aluminum hydrox/algin (GAVISCON ORAL) Take 1 tablet by mouth as needed. cetirizine HCl (ZYRTEC ORAL) Take 1 tablet by mouth once daily. ubidecarenone (CO Q-10 ORAL) Take by mouth. peg 3350-Electrolytes (GOLYTELY) 236-22.74-6.74 -5.86 gram suspension Take 4,000 mL by mouth one time only for 1 dose. Refer to printed prep instructions from your provider. No current facility-administered medications for this visit. ALLERGIES: Metoclopramide, Sulfamethoxazole-Trimethoprim, Morphine, Acetaminophen, Augmentin [Amoxicillin-Pot Clavulanate], Cefzil [Cefprozil], Dayquil Allergy 12-Hr, Dextromethorphan, Doxylamine, Erythromycin, Iodinated Contrast Media, Ivp Dye [Iodine], Lincomycin, Pseudoephedrine, Reglan [Metoclopramide Hcl], Lhcxhtb-Huy-Ego Reductase Inhibitors, Tequin [Gatifloxacin], and Doxycycline PAST MEDICAL HISTORY PAST MEDICAL HISTORY Diagnosis Date Asthma Carotid stenosis Delayed emergence from general anesthesia deep anesthesia 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) 05/22/2022 Diabetes mellitus, type 2 (HCC) Hyperlipidemia Hypertension Sliding hiatal hernia PAST SURGICAL HISTORY PAST SURGICAL HISTORY Procedure Laterality Date BREAST BIOPSY Bilateral benign BREAST SURGERY HX CHOLECYSTECTOMY COLONOSCOPY 05/2017 COLONOSCOPY SCREENING 2019 EGD 04/2017 EGD DIAGNOSTIC 01/2023 F SALPINGO-OOPHORECTOMY Left IR RT HEART CATH 11/10/2022 PAST SURGICAL HISTORY OF left TM repair PAST SURGICAL HISTORY OF Left 12/1991 Repair of hole in left eardrum PAST SURGICAL HISTORY OF 06/03/1998 Scalp - removal of sebaceaous cyst PAST SURGICAL HISTORY OF 11/26/2022 Triple Bypass PAST SURGICAL HISTORY OF 01/25/2024 Left carotid artery stint REMV CATARACT EXTRACAP,INSERT LENS Left REMV CATARACT EXTRACAP,INSERT LENS Right TUBAL LIGATION FAMILY HISTORY FAMILY HISTORY Problem Relation Age of Onset Heart Mother Stroke Mother Emphysema Father Heart Father Heart Attack Father Colon Cancer Sister 67 Diabetes Sister Diabetes Sister Heart Sister Thyroid Cancer Brother SOCIAL HISTORY Social History Tobacco Use Smoking status: Never Smokeless tobacco: Never Vaping Use Vaping status: Never Used Substance Use Topics Alcohol use: Not Currently Drug use: Not Currently REVIEW OF SYMPTOMS: The review of systems data was entered by the nurse and reviewed by me SEE NURSING NOTE PHYSICAL EXAMINATION: General: The patient is 74 year old, female well nourished, well hydrated in no acute distress. The patient is oriented to time, place, and person. VITALS: Blood pressure 119/72, pulse 89, weight 88.9 kg (196 lb), SpO2 98%. Body mass index is 35.61 kg/m . HEENT: Normal cephalic, ataumatic, pupils are equally round, sclera are anicteric, mucous membranes are moist, oropharynx is clear. Neck has no masses, asymmetry or lymphadenopathy. Respiratory: Clear to auscultation and percussion. Normal respiratory excursion and pattern. Cardiac: Examination is regular rate and rhythm. Normal S1/S2 Abdominal exam: Soft, nontender, with no palpable masses. No hepatosplenomegaly. No palpable hernias. Extremities: no clubbing, cyanosis or edema. No adenopathy. LABORATORY VALUES: As Noted RADIOLOGIC STUDIES: As Noted Assessment IMPRESSION: MY, family history of colon cancer PLAN: I have reviewed my findings with the surgeon. Will plan for upper and lower endoscopy. We discussed the risks and benefits of the planned endoscopy. I have informed the patient that complications can occur including failure to complete the endoscopy and perforation. Janessa had the opportunity to ask questions concerning the planned endoscopy. My staff has also explained the procedure to the patient in understandable terms and has given the patient printed material concerning the procedure. Janessa freely consents to surgery. I plan to use Golytely bowel preparation Patient instructed to contact PCP for instructions regarding diabetic medication, which may require adjustment during bowel preparation and/or day of procedure. Instructed to hold Jardiance for 3 days prior to endoscopy. I have explained to the patient the difference between IV conscious sedation and MAC anesthesia - and I have offered either, according to the patient's wishes. I have explained that with IV conscious sedation there is no anesthesia provider available and therefore there is a limitation of the amount of IV medications that can be given and that the patient may wake up in the middle of the procedure and/or experience pain/discomfort during the procedure. Further discussion was done and the patient was given the opportunity to ask questions and all questions were answered. Janessa chooses MAC anesthesia. Janessa was counseled that if there are changes in his/her medical condition, to let the office know if surgery should proceed. If there are changes in patient's medical condition from time of this encounter to the day of the procedure that preclude anesthesia, patient may have procedure cancelled for patient's safety. Diagnoses: (Z80.0) Family history of colon cancer (primary encounter diagnosis) (D50.9) Iron deficiency anemia, unspecified iron deficiency anemia type Consultation requested by Fanny Barron CNP for an opinion regarding MY. My final recommendations will be communicated back to the requesting physician by way of shared Medical record or letter to requesting physician via [place] mail. Portions of this documentation were copied and pasted from previous office visit notes in order to provide a cohesive continuity of the history. The note has been reviewed and edited and updated as necessary. Halie Jin APRN.YULY documented in this encounter [facility] 11-14-2024 Note HNO ID: [id number] Author: PATITO MCKEON LPN Service: ? Author Type: LICENSED NURSE Type: Progress Notes Filed: 11/14/2024 08:48 Note Text: Patient presents with: Imm/Inj Pt is identified by name and birthdate: Yes. Allergies and medications reviewed. Latex allergy? No. Does this patient have: Unplanned weight loss or gain of greater than 10 pounds, or a change of appetite over the last year? No Does the patient have any concerns about safety in the home/falls? Not at risk for falls Has the patient fallen in the past year? No Does the patient have difficulty performing or completing routine daily living activities? No Does this patient have concerns about personal safety? No Is patient having pain? Pain: No=0 (pain 0 on a scale of 0-10). Health Maintenance: Reviewed and updated. Does patient have MyChart access or Caregiver proxy: yes Pt/Caregiver willingness and readiness to learn assessed: Yes. Barriers: none Cyanocobalamin injection administered, Left Deltoid, tolerated well, no immediate adverse reactions noted. Patito Mckeon LPN [facility] 11-14-2024 History of Presen t illness Narrative Patient presents with: Imm/Inj Pt is identified by name and birthdate: Yes. Allergies and medications reviewed. Latex allergy? No. Does this patient have: Unplanned weight loss or gain of greater than 10 pounds, or a change of appetite over the last year? No Does the patient have any concerns about safety in the home/falls? Not at risk for falls Has the patient fallen in the past year? No Does the patient have difficulty performing or completing routine daily living activities? No Does this patient have concerns about personal safety? No Is patient having pain? Pain: No=0 (pain 0 on a scale of 0-10). Health Maintenance: Reviewed and updated. Does patient have MyChart access or Caregiver proxy: yes Pt/Caregiver willingness and readiness to learn assessed: Yes. Barriers: none Cyanocobalamin injection administered, Left Deltoid, tolerated well, no immediate adverse reactions noted. Patito Mckeon LPN documented in this encounter [facility] 11-08-2024 Telephone encounter Note Left message with patient today. Also sent my my chart to confirm colonoscopy procedure date & bowel prep instructions with my phone number [phone]. [facility] 11-08-2024 Miscellaneous Notes Left message with patient today. Also sent my my chart to confirm colonoscopy procedure date & bowel prep instructions with my phone number [phone]. documented in this encounter [facility] 11-06-2024 Note HNO ID: [id number] Author: PATITO MCKEON LPN Service: ? Author Type: LICENSED NURSE Type: Progress Notes Filed: 11/07/2024 11:28 Note Text: cyanocoblamin injection administered, left Deltoid,tolerated well, no immediate adverse reactions noted. Patito Mckeon LPN [facility] 11-06-2024 History of Presen t illness Narrative cyanocoblamin injection administered, left Deltoid,tolerated well, no immediate adverse reactions noted. Patito Mckeon LPN Progress Note Janessa Baron 1950 Encounter date: 09/05/2024 HPI: Janessa Baron is a 74 year old female with PMHx of HTN, HLD, a-fib, CAD, asthma, T2DM, spinal stenosis and DDD. Presents today as a referral by her PCP Dr. Bacon for further management of iron deficiency anemia identified on preoperative exam. She reports fatigue today. Feels a bit overwhelmed by everything going on at the moment with appts and drs visits between her and her . Noted 5 surgeries all in 1 year, triple bypass 11/26/2022, torn meniscus, L carotid surg 01/25/24, cholecystectomy. She was started on IV iron, has received 2 doses out of 3 planned. Tolerating well thus fa but has not noticed any improvements in symptoms at this time. Has never received IV iron or blood transfusions in the past that she is aware of. No PO iron use. She is on PPI. Denies current CP, SOB, CP. No unintentional weight loss, appetite is good. Just a lot going on recently. No energy. Denies headaches or dizziness. Denies fevers. Current UTI currently on macrobid, started on Wednesday. Carpal tunnel in L hand. Endorses RLS. No PICA or ice cravings. Denies abd pains. No changes in bowel habits. Denies hematochezia, hematuria. Was supposed to have back surgery next week which was postponed due to elevated A1C. Constant pain every day L4/L5l. Limiting mobility. She is currently working to lower A1C. Due for repeat colonoscopy. Encouraged her to schedule. Sister with colon ca. Denies personal hx od cancers, blood or bleeding disorders. Interval Hx: Recent admission for urosepsis. Had no urinary symptoms or s/s of infection, which really concerns her as she does not know what to look for to prevent in the future. She was taking her to appt at [facility] Main and [facility] outside hospital. Spent 5 days admitted. Completed IV iron series, last dose on 09/11/24. Tolerated well. Improvement in Hgb.She denies bleeding. No hematuria, hematochezia. No changes in bowel or bladder habits. B12 less that 150 on latest labs. Reviewed with her today. PAST MEDICAL HISTORY Diagnosis Date Asthma Carotid stenosis Delayed emergence from general anesthesia deep anesthesia 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) 05/22/2022 Diabetes mellitus, type 2 (HCC) Hyperlipidemia Hypertension Sliding hiatal hernia PAST SURGICAL HISTORY Procedure Laterality Date BREAST BIOPSY Bilateral benign BREAST SURGERY HX CHOLECYSTECTOMY COLONOSCOPY 05/2017 COLONOSCOPY SCREENING 2019 EGD 04/2017 EGD DIAGNOSTIC 01/2023 F SALPINGO-OOPHORECTOMY Left IR RT HEART CATH 11/10/2022 PAST SURGICAL HISTORY OF left TM repair PAST SURGICAL HISTORY OF Left 12/1991 Repair of hole in left eardrum PAST SURGICAL HISTORY OF 06/03/1998 Scalp - removal of sebaceaous cyst PAST SURGICAL HISTORY OF 11/26/2022 Triple Bypass PAST SURGICAL HISTORY OF 01/25/2024 Left carotid artery stint REMV CATARACT EXTRACAP,INSERT LENS Left REMV CATARACT EXTRACAP,INSERT LENS Right TUBAL LIGATION Current Outpatient Medications Medication Sig Dispense Refill SITagliptin phosphate (JANUVIA) 100 mg tablet Take 1 tablet by mouth once daily. 90 tablet 3 hydrOXYzine HCl (ATARAX) 25 mg tablet Take 1 tablet by mouth every 12 hours as needed for anxiety. 15 tablet 0 predniSONE (DELTASONE) 20 mg tablet Take 3 tablets by mouth once daily. X3d, then 2 po every day x 3d then 1 po every day x 3d, then 1/2 po every day x 4d 20 tablet 0 benzonatate (TESSALON PERLE) 100 mg capsule Take 1 capsule by mouth three times a day as needed. 30 capsule 0 glimepiride (AMARYL) 4 mg tablet Take 1 tablet by mouth daily with breakfast. 90 tablet 3 HYDROcodone-acetaminophen (NORCO) 5-325 mg per tablet Take 1 tablet by mouth every 8 hours as needed for pain. benzocaine/benzethon Cl (DERMOPLAST ANTIBACTERIAL TOPICAL) Apply to affected area as needed. lidocaine (SALONPAS) 4 % patch Apply 1 application as directed once daily. albuterol (PROVENTIL) 2.5 mg /3 mL (0.083 %) nebulizer solution INHALE WITH 1 VIAL IN NEBULIZER EVERY SIX HOURS NEEDED 90 mL 3 rosuvastatin (CRESTOR) 10 mg tablet Take 1 tablet by mouth daily at bedtime. 90 tablet 3 metFORMIN (GLUCOPHAGE) 500 mg tablet Take 2 tablets by mouth two times a day with meals. 360 tablet 3 montelukast (SINGULAIR) 10 mg tablet Take 1 tablet by mouth daily at bedtime. 90 tablet 3 omeprazole (PRILOSEC) 40 mg capsule Take 1 capsule by mouth two times a day. 180 capsule 3 pioglitazone (ACTOS) 45 mg tablet Take 1 tablet by mouth once daily. 90 tablet 3 lisinopril-hydroCHLOROthiazide (ZESTORETIC) 20-12.5 mg per tablet Take 1 tablet by mouth once daily. 90 tablet 3 ketoconazole (NIZORAL) 2 % cream Apply to affected area once daily for 10 days. NYSTOP powder APPLY TO THE AFFECTED AREA(S) THREE TIMES DAILY sucralfate (CARAFATE) 1 gram tablet Take 1 g by mouth three times a day. 1/2 hour before meals budesonide (PULMICORT) 0.5 mg/2 mL nebulizer solution mix 2 ampules with saline and apply twice daily gel base no.41, bulk, (HYDROGEL) gel 1 Dose once daily. 100 g 1 aspirin, enteric coated (ASPIRIN, ENTERIC COATED) 81 mg EC tablet Take 81 mg by mouth once daily. traMADol (ULTRAM) 50 mg tablet Take 50 mg by mouth every 6 hours as needed for pain. diclofenac (VOLTAREN) 1 % topical gel Apply to affected area four times daily. mag carb/aluminum hydrox/algin (GAVISCON ORAL) Take 1 tablet by mouth as needed. cetirizine HCl (ZYRTEC ORAL) Take 1 tablet by mouth once daily. ubidecarenone (CO Q-10 ORAL) Take 1 tablet by mouth once daily. blood sugar diagnostic ([employer] ULTRA TEST) test strip Monitor blood sugar daily and as needed. 100 Each 3 lancets (ONE TOUCH DELICA) 33 gauge 1 Each once daily. 100 Each 3 blood sugar diagnostic ([employer]CH ULTRA TEST) test strip 1 Strip before meals and at bedtime. Use as instructed 100 Each 3 lancets (TRUEPLUS LANCETS) 33 gauge Monitor blood sugar daily and as needed. 100 Each 3 No current facility-administered medications for this visit. ALLERGIES Allergen Reactions Metoclopramide Unknown Sulfamethoxazole-Tr* Unknown Morphine Unknown Acetaminophen Unknown Augmentin [Amoxicil* Rash Cefzil [Cefprozil] Rash Dayquil Allergy 12-* Hives Dextromethorphan Hives Doxylamine Hives Erythromycin Rash Iodinated Contrast * Hives Ivp Dye [Iodine] Unknown knot on head Lincomycin Rash Pseudoephedrine Hives Reglan [Metoclopram* Intolerance Iczryes-Lbe-Aup Red* Unknown Other reaction(s): Other Tequin [Gatifloxaci* Rash Doxycycline Unknown, Vomiting FAMILY HISTORY Problem Relation Age of Onset Heart Mother Stroke Mother Emphysema Father Heart Father Heart Attack Father Colon Cancer Sister 67 Diabetes Sister Diabetes Sister Heart Sister Thyroid Cancer Brother Social History Tobacco Use Smoking status: Never Smokeless tobacco: Never Vaping Use Vaping status: Never Used Substance Use Topics Alcohol use: Not Currently Drug use: Not Currently Review of Systems: Negative except as noted in HPI reviewed 11/06/2024 Physical Exam: BP 144/79 Pulse 88 Temp (Src) 98.4 (Temporal) Wt 195 lb (88.5kg) SpO2 98% General: Age-appropriate well developed. Appears well. HEENT: Normocephalic, no sclera icterus, external ears normal, oral cavity clear. Neck: Supple, no JVD. Chest: Clear bilaterally, no wheezes, not labored. Heart: Normal S1 and S2, no abnormal sounds Abdomen: Soft, nontender, nondistended, bowel sounds present Extremities: No cyanosis, clubbing, gross deformities Neurological: Cranial nerves II through XII are intact bilaterally, no focal deficits. Skin: Warm and dry with no rashes or ulcerations. Nodes: No palpable adenopathy in the cervical, supraclavicular, infraclavicular regions. Hematologic: no bruising or petechiae. Psychiatric: Alert and oriented x3. I have performed the physical exam today (11/06/2024) and have edited the note to correlate with current findings. Lab Results Component Value Date WBC 11.43 (H) 11/04/2024 HB 12.8 11/04/2024 MCV 82.5 11/04/2024 PLT 322 11/04/2024 Lab Results Component Value Date NA 137 11/04/2024 K 3.6 (L) 11/04/2024 CO2 25 11/04/2024 BUN 22 (H) 11/04/2024 CREAT 0.82 11/04/2024 TBILI 0.3 11/04/2024 TPROT 7.4 11/04/2024 ALB 4.4 11/04/2024 ALKPHOS 72 11/04/2024 ALT 13 11/04/2024 AST 14 11/04/2024 Latest Reference Range & Units 08/21/24 17:13 11/04/24 07:47 Vitamin B12 232 - 1,245 pg/mL <150 (L) Folate >4.7 ng/mL 20.0 Ferritin 14.7 - 205.1 ng/mL 4.9 (L) 131.0 Iron 41 - 186 ug/dL 14 (L) 57 TIBC 232 - 386 ug/dL 433 313 Transferrin Saturation 15.0 - 57.0 % 3.2 (L) 18.2 (L): Data is abnormally low Assessment and Plan: Ms. Baron is a pleasant 74 year old woman presents as a new consult for iron deficiency anemia. Anemia, microcytic - iron deficiency - incidental finding on recent preoperative work up, Hgb 9.5, ferritin 4.9 - we discussed most common causes and treatments for iron deficiency anemia in detail today with patient and spouse. - Received IV iron sucrose 200 mg x5, due to low iron studies. PO iron would not adequately replace iron stores and she is unlikely to absorb as effectively due to PPI -suspect that she may have been iron deficient for some time. Mild anemia, low MCV demonstrated on labs from 07/2023. - pt notes several surgeries in 1 year. - thrombocytosis is likely reactive to MY, has since resolved - Recommend further GI workup with scope for completeness, she notes she is due for repeat scope has been waiting to schedule. - Monitor CBC, iron studies in 3 months B12 deficiency - noted on follow up labs, reviewed with patient and spouse today. - plan for weekly b12 IM x4 followed by monthly x2, pt agreeable - will start b12 injections today - potential to trial PO pending repeat labs. OV with labs in 3 months. Fanny Barron APRN.[employer]CE T[employer]ER I spent a total of 30 minutes on the date of the service which included preparing to see the patient, [id number] patient care, completing clinical documentation, obtaining and/or reviewing separately obtained history, performing a medically appropriate examination, and ordering medications, tests, or procedures. Portions of this note including HPI, ROS, impression/plan may have been copied forward as to provide important historical information essential in contributing to medical decision making. Documentation has been reviewed and edited as necessary to support clinical decision making for today's visit and to reflect my own independent evaluation of this patient. documented in this encounter [facility] 11-06-2024 Note HNO ID: [id number] Author: FANNY BARRON, ? Service: ? Author Type: Nurse Practitioner Type: Progress Notes Filed: 11/07/2024 11:28 Note Text: Progress Note Janessa Baron 1950 Encounter date: 09/05/2024 HPI: Janessa Baron is a 74 year old female with PMHx of HTN, HLD, a-fib, CAD, asthma, T2DM, spinal stenosis and DDD. Presents today as a referral by her PCP Dr. Bacon for further management of iron deficiency anemia identified on preoperative exam. She reports fatigue today. Feels a bit overwhelmed by everything going on at the moment with appts and zhang visits between her and her . Noted 5 surgeries all in 1 year, triple bypass 11/26/2022, torn meniscus, L carotid surg 01/25/24, cholecystectomy. She was started on IV iron, has received 2 doses out of 3 planned. Tolerating well thus fa but has not noticed any improvements in symptoms at this time. Has never received IV iron or blood transfusions in the past that she is aware of. No PO iron use. She is on PPI. Denies current CP, SOB, CP. No unintentional weight loss, appetite is good. Just a lot going on recently. No energy. Denies headaches or dizziness. Denies fevers. Current UTI currently on macrobid, started on Wednesday. Carpal tunnel in L hand. Endorses RLS. No PICA or ice cravings. Denies abd pains. No changes in bowel habits. Denies hematochezia, hematuria. Was supposed to have back surgery next week which was postponed due to elevated A1C. Constant pain every day L4/L5l. Limiting mobility. She is currently working to lower A1C. Due for repeat colonoscopy. Encouraged her to schedule. Sister with colon ca. Denies personal hx od cancers, blood or bleeding disorders. Interval Hx: Recent admission for urosepsis. Had no urinary symptoms or s/s of infection, which really concerns her as she does not know what to look for to prevent in the future. She was taking her to appt at [facility] Main and collapse outside hospital. Spent 5 days admitted. Completed IV iron series, last dose on 09/11/24. Tolerated well. Improvement in Hgb.She denies bleeding. No hematuria, hematochezia. No changes in bowel or bladder habits. B12 less that 150 on latest labs. Reviewed with her today. PAST MEDICAL HISTORY Diagnosis Date Asthma Carotid stenosis Delayed emergence from general anesthesia deep anesthesia 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) 05/22/2022 Diabetes mellitus, type 2 (HCC) Hyperlipidemia Hypertension Sliding hiatal hernia PAST SURGICAL HISTORY Procedure Laterality Date BREAST BIOPSY Bilateral benign BREAST SURGERY HX CHOLECYSTECTOMY COLONOSCOPY 05/2017 COLONOSCOPY SCREENING 2019 EGD 04/2017 EGD DIAGNOSTIC 01/2023 F SALPINGO-OOPHORECTOMY Left IR RT HEART CATH 11/10/2022 PAST SURGICAL HISTORY OF left TM repair PAST SURGICAL HISTORY OF Left 12/1991 Repair of hole in left eardrum PAST SURGICAL HISTORY OF 06/03/1998 Scalp - removal of sebaceaous cyst PAST SURGICAL HISTORY OF 11/26/2022 Triple Bypass PAST SURGICAL HISTORY OF 01/25/2024 Left carotid artery stint REMV CATARACT EXTRACAP,INSERT LENS Left REMV CATARACT EXTRACAP,INSERT LENS Right TUBAL LIGATION Current Outpatient Medications Medication Sig Dispense Refill SITagliptin phosphate (JANUVIA) 100 mg tablet Take 1 tablet by mouth once daily. 90 tablet 3 hydrOXYzine HCl (ATARAX) 25 mg tablet Take 1 tablet by mouth every 12 hours as needed for anxiety. 15 tablet 0 predniSONE (DELTASONE) 20 mg tablet Take 3 tablets by mouth once daily. X3d, then 2 po every day x 3d then 1 po every day x 3d, then 1/2 po every day x 4d 20 tablet 0 benzonatate (TESSALON PERLE) 100 mg capsule Take 1 capsule by mouth three times a day as needed. 30 capsule 0 glimepiride (AMARYL) 4 mg tablet Take 1 tablet by mouth daily with breakfast. 90 tablet 3 HYDROcodone-acetaminophen (NORCO) 5-325 mg per tablet Take 1 tablet by mouth every 8 hours as needed for pain. benzocaine/benzethon Cl (DERMOPLAST ANTIBACTERIAL TOPICAL) Apply to affected area as needed. lidocaine (SALONPAS) 4 % patch Apply 1 application as directed once daily. albuterol (PROVENTIL) 2.5 mg /3 mL (0.083 %) nebulizer solution INHALE WITH 1 VIAL IN NEBULIZER EVERY SIX HOURS NEEDED 90 mL 3 rosuvastatin (CRESTOR) 10 mg tablet Take 1 tablet by mouth daily at bedtime. 90 tablet 3 metFORMIN (GLUCOPHAGE) 500 mg tablet Take 2 tablets by mouth two times a day with meals. 360 tablet 3 montelukast (SINGULAIR) 10 mg tablet Take 1 tablet by mouth daily at bedtime. 90 tablet 3 omeprazole (PRILOSEC) 40 mg capsule Take 1 capsule by mouth two times a day. 180 capsule 3 pioglitazone (ACTOS) 45 mg tablet Take 1 tablet by mouth once daily. 90 tablet 3 lisinopril-hydroCHLOROthiazide (ZESTORETIC) 20-12.5 mg per tablet Take 1 tablet by mouth once daily. 90 tablet 3 ketoconazole (NIZORAL) 2 % cream Apply to affected area once daily for 10 days. NYSTOP powder APPLY TO (more content not included)... [facility] 10-25-2024 Evaluation note Diagnosis Onset Date Resolution Vulvar atrophy acute October 8:03am Carotid stenosis, left acute Ap 2024 1:11pm History of coronary artery bypass graft x 3 November, acute November 28, 2024 1:11pm Hyperlipidemia acute November 1:11pm Postoperative atrial fibrillation acute November 28, 2024 1:11pm HTN (hypertension) chronic November 28, 2024 1:11pm Osteoporosis acute December 25 3:16pm Spinal stenosis of lumbar region with neurogenic claudication acute December 3:16pm Spondylolisthesis of lumbar region acute December 25, 2024 3:16pm [facility] Work Phone: [phone]) 298-798103-11-2025 NoteHNO ID: [id number] Author: LOVELY POLK RN Service: ? Author Type: Registered Nurse Type: Progress Notes Filed: 10/24/2024 14:09 Note Text: Unable to make contact Provider Action/FYI Patient identified by name and date of : YES An attempt was made to contact: Patient Was a voicemail left? Yes including my name, role, and return number Outreach Plan: Follow up call needed:No [facility] History of Present illness Narrative* Lovely Polk RN - 10/24/2024 2:08 PM EDT Unable to make contact Provider Action/FYI Patient identified by name and date of : YES An attempt was made to contact: Patient Was a voicemail left? Yes including my name, role, and return number Outreach Plan: Follow up call needed:No Lovely Polk RN documented in this encounterW[facility] NotePatient Outreach (MRCAC) LORAINEJANESSA ([id number]) 1950 F Date Time Provider Department 10/24/24 LOVELY POLK [facility] During your visit today, we recorded the following information about you: Lovely Polk, RN 10/24/2024 2:09 PM Signed Unable to make contact Provider Action/FYI Patient identified by name and date of : YES An attempt was made to contact: Patient Was a voicemail left? Yes including my name, role, and return number Outreach Plan: Follow up call needed:No Lovely Polk RN Allergies As of Date: 10/24/2024 Noted Allergy Reaction METOCLOPRAMIDE 01/31/2017 16 - Unknown SULFAMETHOXAZOLE-TRIMETHOPRIM 04/01/2017 16 - Unknown MORPHINE 07/24/2020 16 - Unknown ACETAMINOPHEN 04/07/2023 16 - Unknown AUGMENTIN (AMOXICILLIN-POT CLAVUL*04/27/2018 2 - Rash CEFZIL (CEFPROZIL) 04/27/2018 2 - Rash DAYQUIL ALLERGY 12-HR 04/27/2018 4 - Hives DEXTROMETHORPHAN 01/31/2017 4 - Hives DOXYLAMINE 01/31/2017 4 - Hives ERYTHROMYCIN 04/27/2018 2 - Rash IODINATED CONTRAST MEDIA 05/22/2019 4 - Hives IVP DYE (IODINE) 04/27/2018 16 - Unknown Comments: knot on head LINCOMYCIN 04/27/2018 2 - Rash PSEUDOEPHEDRINE 01/31/2017 4 - Hives REGLAN (METOCLOPRAMIDE HCL) 04/27/2018 5 - Intolerance [id number] REDUCTASE INHIBIT*01/31/2017 16 - Unknown Comments: Other reaction(s): Other TEQUIN (GATIFLOXACIN) 04/27/2018 2 - Rash DOXYCYCLINE 11/28/2018 16 - Unknown 11 - Vomiting Date Reviewed: 10/09/2024 Reviewed by: Isabela Taylor - Fully Assessed Prescriptions as of 10/24/2024 - SITagliptin phosphate (JANUVIA) 100 mg tablet Take 1 tablet by mouth once daily. - hydrOXYzine HCl (ATARAX) 25 mg tablet Take 1 tablet by mouth every 12 hours as needed for anxiety. - polyethylene glycol 3350 17 gram packet Take 1 Packet by mouth once daily. Dissolve dose in 4 - 8 ounces of liquid and take as directed. - senna (SENOKOT) 8.6 mg tab Take 1 tablet by mouth two times a day. - predniSONE (DELTASONE) 20 mg tablet Take 3 tablets by mouth once daily. X3d, then 2 po every day x 3d then 1 po every day x 3d, then 1/2 po every day x 4d - benzonatate (TESSALON PERLE) 100 mg capsule Take 1 capsule by mouth three times a day as needed. - glimepiride (AMARYL) 4 mg tablet Take 1 tablet by mouth daily with breakfast. - HYDROcodone-acetaminophen (NORCO) 5-325 mg per tablet Take 1 tablet by mouth every 8 hours as needed for pain. - benzocaine/benzethon Cl (DERMOPLAST ANTIBACTERIAL TOPICAL) Apply to affected area as needed. - lidocaine (SALONPAS) 4 % patch Apply 1 application as directed once daily. - albuterol (PROVENTIL) 2.5 mg /3 mL (0.083 %) nebulizer solution INHALE WITH 1 VIAL IN NEBULIZER EVERY SIX HOURS NEEDED - rosuvastatin (CRESTOR) 10 mg tablet Take 1 tablet by mouth daily at bedtime. - metFORMIN (GLUCOPHAGE) 500 mg tablet Take 2 tablets by mouth two times a day with meals. - blood sugar diagnostic ([employer] ULTRA TEST) test strip Monitor blood sugar daily and as needed. - montelukast (SINGULAIR) 10 mg tablet Take 1 tablet by mouth daily at bedtime. - omeprazole (PRILOSEC) 40 mg capsule Take 1 capsule by mouth two times a day. - pioglitazone (ACTOS) 45 mg tablet Take 1 tablet by mouth once daily. - lisinopril-hydroCHLOROthiazide (ZESTORETIC) 20-12.5 mg per tablet Take 1 tablet by mouth once daily. - ketoconazole (NIZORAL) 2 % cream Apply to affected area once daily for 10 days. - NYSTOP powder APPLY TO THE AFFECTED AREA(S) THREE TIMES DAILY - sucralfate (CARAFATE) 1 gram tablet Take 1 g by mouth three times a day. 1/2 hour before meals - budesonide (PULMICORT) 0.5 mg/2 mL nebulizer solution mix 2 ampules with saline and apply twice daily - gel base no.41, bulk, (HYDROGEL) gel 1 Dose once daily. - lancets (ONE TOUCH DELICA) 33 gauge 1 Each once daily. - blood sugar diagnostic (ONETOUCH ULTRA TEST) test strip 1 Strip before meals and at bedtime. Use as instructed - aspirin, enteric coated (ASPIRIN, ENTERIC COATED) 81 mg EC tablet Take 81 mg by mouth once daily. - lancets (TRUEPLUS LANCETS) 33 gauge Monitor blood sugar daily and as needed. - traMADol (ULTRAM) 50 mg tablet Take 50 mg by mouth every 6 hours as needed for pain. - diclofenac (VOLTAREN) 1 % topical gel Apply to affected area four times daily. - mag carb/aluminum hydrox/algin (GAVISCON ORAL) Take 1 tablet by mouth as needed. - cetirizine HCl (ZYRTEC ORAL) Take 1 tablet by mouth once daily. - ubidecarenone (CO Q-10 ORAL) Take by mouth. Problem List As Of Date 10/24/2024 Noted Resolved Type 2 diabetes mellitus without complication, *05/22/2022 Allergic rhinitis [J30.9] 06/05/2019 Asthma [J45.909] 03/01/2017 Essential (primary) hypertension [I10] 03/01/2017 Hypercholesterolemia [E78.00] 07/24/2022 Insomnia [G47.00] 01/26/2018 Polyarthralgia [M25.50] 03/07/2018 Spinal stenosis [M48.00] 11 (more content not included)...[facility] 10-17-2024 NoteHNO ID: [id number] Author: LOVELY POLK RN Service: ? Author Type: Registered Nurse Type: Progress Notes Filed: 10/17/2024 14:53 Note Text: Unable to make contact Provider Action/FYI Patient identified by name and date of : YES An attempt was made to contact: Patient Was a voicemail left? No unable to leave a voicemail Outreach Plan: Follow up call needed:Yes Lovely Polk [facility] History of Present illness Narrative* Lovely Polk RN - 10/17/2024 2:53 PM EST Unable to make contact Provider Action/FYI Patient identified by name and date of : YES An attempt was made to contact: Patient Was a voicemail left? No unable to leave a voicemail Outreach Plan: Follow up call needed:Yes Lovely Polk RN documented in this encounterW[facility]ot [facility]03-04-2025 NotePatient Outreach (MRCAC) JANESSA BARON ([id number]) 1950 F Date Time Provider Department 10/17/24 LOVELY POLK MRCAC During your visit today, we recorded the following information about you: Lovely Polk RN 10/17/2024 2:53 PM Signed Unable to make contact Provider Action/FYI Patient identified by name and date of : YES An attempt was made to contact: Patient Was a voicemail left? No unable to leave a voicemail Outreach Plan: Follow up call needed:Yes Lovely Polk RN Allergies As of Date: 10/17/2024 Noted Allergy Reaction METOCLOPRAMIDE 01/31/2017 16 - Unknown SULFAMETHOXAZOLE-TRIMETHOPRIM 04/01/2017 16 - Unknown MORPHINE 07/24/2020 16 - Unknown ACETAMINOPHEN 04/07/2023 16 - Unknown AUGMENTIN (AMOXICILLIN-POT CLAVUL*04/27/2018 2 - Rash CEFZIL (CEFPROZIL) 04/27/2018 2 - Rash DAYQUIL ALLERGY 12-HR 04/27/2018 4 - Hives DEXTROMETHORPHAN 01/31/2017 4 - Hives DOXYLAMINE 01/31/2017 4 - Hives ERYTHROMYCIN 04/27/2018 2 - Rash IODINATED CONTRAST MEDIA 05/22/2019 4 - Hives IVP DYE (IODINE) 04/27/2018 16 - Unknown Comments: knot on head LINCOMYCIN 04/27/2018 2 - Rash PSEUDOEPHEDRINE 01/31/2017 4 - Hives REGLAN (METOCLOPRAMIDE HCL) 04/27/2018 5 - Intolerance [id number] REDUCTASE INHIBIT*01/31/2017 16 - Unknown Comments: Other reaction(s): Other TEQUIN (GATIFLOXACIN) 04/27/2018 2 - Rash DOXYCYCLINE 11/28/2018 16 - Unknown 11 - Vomiting Date Reviewed: 10/09/2024 Reviewed by: Isabela Taylor - Fully Assessed Prescriptions as of 10/17/2024 - SITagliptin phosphate (JANUVIA) 100 mg tablet Take 1 tablet by mouth once daily. - hydrOXYzine HCl (ATARAX) 25 mg tablet Take 1 tablet by mouth every 12 hours as needed for anxiety. - polyethylene glycol 3350 17 gram packet Take 1 Packet by mouth once daily. Dissolve dose in 4 - 8 ounces of liquid and take as directed. - senna (SENOKOT) 8.6 mg tab Take 1 tablet by mouth two times a day. - predniSONE (DELTASONE) 20 mg tablet Take 3 tablets by mouth once daily. X3d, then 2 po every day x 3d then 1 po every day x 3d, then 1/2 po every day x 4d - benzonatate (TESSALON PERLE) 100 mg capsule Take 1 capsule by mouth three times a day as needed. - glimepiride (AMARYL) 4 mg tablet Take 1 tablet by mouth daily with breakfast. - HYDROcodone-acetaminophen (NORCO) 5-325 mg per tablet Take 1 tablet by mouth every 8 hours as needed for pain. - benzocaine/benzethon Cl (DERMOPLAST ANTIBACTERIAL TOPICAL) Apply to affected area as needed. - lidocaine (SALONPAS) 4 % patch Apply 1 application as directed once daily. - albuterol (PROVENTIL) 2.5 mg /3 mL (0.083 %) nebulizer solution INHALE WITH 1 VIAL IN NEBULIZER EVERY SIX HOURS NEEDED - rosuvastatin (CRESTOR) 10 mg tablet Take 1 tablet by mouth daily at bedtime. - metFORMIN (GLUCOPHAGE) 500 mg tablet Take 2 tablets by mouth two times a day with meals. - blood sugar diagnostic ([employer] ULTRA TEST) test strip Monitor blood sugar daily and as needed. - montelukast (SINGULAIR) 10 mg tablet Take 1 tablet by mouth daily at bedtime. - omeprazole (PRILOSEC) 40 mg capsule Take 1 capsule by mouth two times a day. - pioglitazone (ACTOS) 45 mg tablet Take 1 tablet by mouth once daily. - lisinopril-hydroCHLOROthiazide (ZESTORETIC) 20-12.5 mg per tablet Take 1 tablet by mouth once daily. - ketoconazole (NIZORAL) 2 % cream Apply to affected area once daily for 10 days. - NYSTOP powder APPLY TO THE AFFECTED AREA(S) THREE TIMES DAILY - sucralfate (CARAFATE) 1 gram tablet Take 1 g by mouth three times a day. 1/2 hour before meals - budesonide (PULMICORT) 0.5 mg/2 mL nebulizer solution mix 2 ampules with saline and apply twice daily - gel base no.41, bulk, (HYDROGEL) gel 1 Dose once daily. - lancets (ONE TOUCH DELICA) 33 gauge 1 Each once daily. - blood sugar diagnostic (ONETOUCH ULTRA TEST) test strip 1 Strip before meals and at bedtime. Use as instructed - aspirin, enteric coated (ASPIRIN, ENTERIC COATED) 81 mg EC tablet Take 81 mg by mouth once daily. - lancets (TRUEPLUS LANCETS) 33 gauge Monitor blood sugar daily and as needed. - traMADol (ULTRAM) 50 mg tablet Take 50 mg by mouth every 6 hours as needed for pain. - diclofenac (VOLTAREN) 1 % topical gel Apply to affected area four times daily. - mag carb/aluminum hydrox/algin (GAVISCON ORAL) Take 1 tablet by mouth as needed. - cetirizine HCl (ZYRTEC ORAL) Take 1 tablet by mouth once daily. - ubidecarenone (CO Q-10 ORAL) Take by mouth. Problem List As Of Date 10/17/2024 Noted Resolved Type 2 diabetes mellitus without complication, *05/22/2022 Allergic rhinitis [J30.9] 06/05/2019 Asthma [J45.909] 03/01/2017 Essential (primary) hypertension [I10] 03/01/2017 Hypercholesterolemia [E78.00] 07/24/2022 Insomnia [G47.00] 01/26/2018 Polyarthralgia [M25.50] 03/07/2018 Spinal stenosis [M48.00] 06/24/2020 Aortic (more content not included)...[facility]02-[facility] NoteHNO ID: [id number] Author: LOVELY POLK RN Service: ? Author Type: Registered Nurse Type: Progress Notes Filed: 10/10/2024 13:43 Note Text: TRANSITION CARE MANAGEMENT (TCM) FOLLOW-UP NOTE Provider Action/FYI Patient identified by name and date of : YES Spoke to NO ANSWER. Left Message Discharge Network Status: In-Network Discharge Summary: TCM weekly call. No answer. Left message. 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 Left Message Discharge Network Status: In-Network Discharge Summary: TCM weekly call. No answer. Left message. 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 Jodie Cuba MA [facility]02-25-2025 Miscellaneous Notes* Telephone Encounter - Jodie Cuba MA - 10/10/2024 7:37 AM EST Patient given results and verbalized understanding of instructions given. Jodie Cuba MA * Telephone Encounter - Mike Chanel PA - 10/10/2024 7:14 AM EST Please let patient know she is negative for yeast, BV, trichomonas. We are still waiting urine culture and we will contact her once this returns documented in this encounterW[facility]ot [facility]02-[facility]-2025 Telephone encounter Note * Telephone Encounter - Mike Chanel PA - 10/10/2024 7:14 AM EST Please let patient know she is negative for yeast, BV, trichomonas. We are still waiting urine culture and we will contact her once this returns [facility] Work Phone: 1(301) 116-916502-25-2025 NotePatient Outreach (MRCAC) JANESSA BARON ([id number]) 1950 F Date Time Provider Department 10/10/24 LOVELY POLK [facility] During your visit today, we recorded the following information about you: Lovely Polk RN 10/10/2024 1:43 PM Signed TRANSITION CARE MANAGEMENT (TCM) FOLLOW-UP NOTE Provider Action/FYI Patient identified by name and date of : YES Spoke to NO ANSWER. Left Message Discharge Network Status: In-Network Discharge Summary: TCM weekly call. No answer. Left message. 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: Will follow up Next week [employer] Education Ordered -: No Lovely Polk RN October 10, 2024 1:42 PM Allergies As of Date: 10/10/2024 Noted Allergy Reaction METOCLOPRAMIDE 01/31/2017 16 - Unknown SULFAMETHOXAZOLE-TRIMETHOPRIM 04/01/2017 16 - Unknown MORPHINE 07/24/2020 16 - Unknown ACETAMINOPHEN 04/07/2023 16 - Unknown AUGMENTIN (AMOXICILLIN-POT CLAVUL*04/27/2018 2 - Rash CEFZIL (CEFPROZIL) 04/27/2018 2 - Rash DAYQUIL ALLERGY 12-HR 04/27/2018 4 - Hives DEXTROMETHORPHAN 01/31/2017 4 - Hives DOXYLAMINE 01/31/2017 4 - Hives ERYTHROMYCIN 04/27/2018 2 - Rash IODINATED CONTRAST MEDIA 05/22/2019 4 - Hives IVP DYE (IODINE) 04/27/2018 16 - Unknown Comments: knot on head LINCOMYCIN 04/27/2018 2 - Rash PSEUDOEPHEDRINE 01/31/2017 4 - Hives REGLAN (METOCLOPRAMIDE HCL) 04/27/2018 5 - Intolerance ZBEFKOP-DGO-FDH REDUCTASE INHIBIT*01/31/2017 16 - Unknown Comments: Other reaction(s): Other TEQUIN (GATIFLOXACIN) 04/27/2018 2 - Rash DOXYCYCLINE 11/28/2018 16 - Unknown 11 - Vomiting Date Reviewed: 10/09/2024 Reviewed by: Isabela Taylor - Fully Assessed Prescriptions as of 10/10/2024 - fluconazole (DIFLUCAN) 150 mg tablet Take 1 tablet by mouth once daily for 1 day. - SITagliptin phosphate (JANUVIA) 100 mg tablet Take 1 tablet by mouth once daily. - hydrOXYzine HCl (ATARAX) 25 mg tablet Take 1 tablet by mouth every 12 hours as needed for anxiety. - polyethylene glycol 3350 17 gram packet Take 1 Packet by mouth once daily. Dissolve dose in 4 - 8 ounces of liquid and take as directed. - senna (SENOKOT) 8.6 mg tab Take 1 tablet by mouth two times a day. - predniSONE (DELTASONE) 20 mg tablet Take 3 tablets by mouth once daily. X3d, then 2 po every day x 3d then 1 po every day x 3d, then 1/2 po every day x 4d - benzonatate (TESSALON PERLE) 100 mg capsule Take 1 capsule by mouth three times a day as needed. - glimepiride (AMARYL) 4 mg tablet Take 1 tablet by mouth daily with breakfast. - HYDROcodone-acetaminophen (NORCO) 5-325 mg per tablet Take 1 tablet by mouth every 8 hours as needed for pain. - benzocaine/benzethon Cl (DERMOPLAST ANTIBACTERIAL TOPICAL) Apply to affected area as needed. - lidocaine (SALONPAS) 4 % patch Apply 1 application as directed once daily. - albuterol (PROVENTIL) 2.5 mg /3 mL (0.083 %) nebulizer solution INHALE WITH 1 VIAL IN NEBULIZER EVERY SIX HOURS NEEDED - rosuvastatin (CRESTOR) 10 mg tablet Take 1 tablet by mouth daily at bedtime. - metFORMIN (GLUCOPHAGE) 500 mg tablet Take 2 tablets by mouth two times a day with meals. - blood sugar diagnostic (ONETOUCH ULTRA TEST) test strip Monitor blood sugar daily and as needed. - montelukast (SINGULAIR) 10 mg tablet Take 1 tablet by mouth daily at bedtime. - omeprazole (PRILOSEC) 40 mg capsule Take 1 capsule by mouth two times a day. - pioglitazone (ACTOS) 45 mg tablet Take 1 tablet by mouth once daily. - lisinopril-hydroCHLOROthiazide (ZESTORETIC) 20-12.5 mg per tablet Take 1 tablet by mouth once daily. - ketoconazole (NIZORAL) 2 % cream Apply to affected area once daily for 10 days. - NYSTOP powder APPLY TO THE AFFECTED AREA(S) THREE TIMES DAILY - sucralfate (CARAFATE) 1 gram tablet Take 1 g by mouth three times a day. 1/2 hour before meals - budesonide (PULMICORT) 0.5 mg/2 mL nebulizer solution mix 2 ampules with saline and apply twice daily - gel base no.41, bulk, (HYDROGEL) gel 1 Dose once daily. - lancets (ONE TOUCH DELICA) 33 gauge 1 Each once daily. - blood sugar diagnostic (ONETOUCH ULTRA TEST) test strip 1 Strip before meals and at bedtime. Use as instructed - aspirin, enteric coated (ASPIRIN, ENTERIC COATED) 81 mg EC tablet Take 81 mg by mouth once daily. - lancets (TRUEPLUS LANCETS) 33 gauge Monitor blood sugar daily and as needed. - traMADol (ULTRAM) 50 mg tablet Take 50 mg by mouth every 6 hours as needed for pain. - diclofenac (VOLTAREN) 1 % topical gel Apply to affected area four times daily. - mag carb/aluminum hydrox/algin (GAVISCON ORAL) Take 1 tablet by mouth as needed. - cetirizine HCl (ZYRTEC ORAL) Take 1 tablet by mouth once daily. - ubidecarenone (CO Q-10 ORAL) Take by mouth. Problem List As Of Date 10/10/2024 Noted Resolved Type 2 diabetes mellitus without complication, *05/22/2022 Allergic rhinitis (more content not included)...[facility]02-24-2025 NoteHNO ID: [id number] Author: CHULA VALENTINE APRN.YULY Service: ? Author Type: Nurse Practitioner Type: Progress Notes Filed: 10/09/2024 11:55 Note Text: CC: Patient presents with: frequrncy : Frequency and some itching x 2 weeks HPI Janessa Baron is a 74 year old female who is s/p hospitalization for pyelonephritis and sepsis 09/25/24, who presents today for vaginal itching and positive home UTI tests x 2. She is fearful another infection will occur without her knowing so she took a home test yesterday and today with positive leukocytes. She denies dysuria, frequency, discharge or hematuria.She has low back pain but this is not new. During her hospitalization she reports being treated for a yeast infection with Diflucan twice. She was sent home on miconazole vaginal inserts x 7 days and Cipro for her urinary infection. She finished miconazole yesterday and will take the last Cipro today. She was told to be cautious about any symptoms of UTI and address them ZAY if she had concerns. She has history DM II. Review of Systems Constitutional: Negative for appetite change, chills and fever. Respiratory: Negative for cough, chest tightness, shortness of breath and wheezing. Cardiovascular: Negative for chest pain and palpitations. Gastrointestinal: Negative for abdominal pain, diarrhea, nausea and vomiting. Genitourinary: Negative for difficulty urinating, dysuria, flank pain, frequency, hematuria, pelvic pain, urgency, vaginal bleeding, vaginal discharge and vaginal pain. Vulvae pruritus Musculoskeletal: Positive for back pain. Negative for myalgias. Skin: Negative for color change and rash. Neurological: Negative for dizziness, syncope, weakness, light-headedness and headaches. PAST MEDICAL HISTORY Diagnosis Date Asthma Carotid stenosis Delayed emergence from general anesthesia deep anesthesia 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) 05/22/2022 Diabetes mellitus, type 2 (HCC) Hyperlipidemia Hypertension Sliding hiatal hernia PAST SURGICAL HISTORY Procedure Laterality Date BREAST BIOPSY Bilateral benign BREAST SURGERY HX CHOLECYSTECTOMY COLONOSCOPY 05/2017 COLONOSCOPY SCREENING 2019 EGD 04/2017 EGD DIAGNOSTIC 01/2023 F SALPINGO-OOPHORECTOMY Left IR RT HEART CATH 11/10/2022 PAST SURGICAL HISTORY OF left TM repair PAST SURGICAL HISTORY OF Left 12/1991 Repair of hole in left eardrum PAST SURGICAL HISTORY OF 06/03/1998 Scalp - removal of sebaceaous cyst PAST SURGICAL HISTORY OF 11/26/2022 Triple Bypass PAST SURGICAL HISTORY OF 01/25/2024 Left carotid artery stint REMV CATARACT EXTRACAP,INSERT LENS Left REMV CATARACT EXTRACAP,INSERT LENS Right TUBAL LIGATION ALLERGIES Metoclopramide, Sulfamethoxazole-Trimethoprim, Morphine, Acetaminophen, Augmentin [Amoxicillin-Pot Clavulanate], Cefzil [Cefprozil], Dayquil Allergy 12-Hr, Dextromethorphan, Doxylamine, Erythromycin, Iodinated Contrast Media, Ivp Dye [Iodine], Lincomycin, Pseudoephedrine, Reglan [Metoclopramide Hcl], Sxxenxv-Qvd-Lwh Reductase Inhibitors, Tequin [Gatifloxacin], and Doxycycline MEDICATIONS SITagliptin phosphate (JANUVIA) 100 mg tablet Take 1 tablet by mouth once daily. hydrOXYzine HCl (ATARAX) 25 mg tablet Take 1 tablet by mouth every 12 hours as needed for anxiety. polyethylene glycol 3350 17 gram packet Take 1 Packet by mouth once daily. Dissolve dose in 4 - 8 ounces of liquid and take as directed. senna (SENOKOT) 8.6 mg tab Take 1 tablet by mouth two times a day. predniSONE (DELTASONE) 20 mg tablet Take 3 tablets by mouth once daily. X3d, then 2 po every day x 3d then 1 po every day x 3d, then 1/2 po every day x 4d benzonatate (TESSALON PERLE) 100 mg capsule Take 1 capsule by mouth three times a day as needed. glimepiride (AMARYL) 4 mg tablet Take 1 tablet by mouth daily with breakfast. HYDROcodone-acetaminophen (NORCO) 5-325 mg per tablet Take 1 tablet by mouth every 8 hours as needed for pain. benzocaine/benzethon Cl (DERMOPLAST ANTIBACTERIAL TOPICAL) Apply to affected area as needed. lidocaine (SALONPAS) 4 % patch Apply 1 application as directed once daily. albuterol (PROVENTIL) 2.5 mg /3 mL (0.083 %) nebulizer solution INHALE WITH 1 VIAL IN NEBULIZER EVERY SIX HOURS NEEDED rosuvastatin (CRESTOR) 10 mg tablet Take 1 tablet by mouth daily at bedtime. metFORMIN (GLUCOPHAGE) 500 mg tablet Take 2 tablets by mouth two times a day with meals. blood sugar diagnostic (ONETOUCH ULTRA TEST) test strip Monitor blood sugar daily and as needed. montelukast (SINGULAIR) 10 mg tablet Take 1 tablet by mouth daily at bedtime. omeprazole (PRILOSEC) 40 mg capsule Take 1 capsule by mouth two times a day. pioglitazone (ACTOS) 45 mg tablet Take 1 tablet by mouth once daily. lisinopril-hydroCHLOROthiazide (ZESTORETIC) 20-12.5 mg per tablet Take 1 tablet by mouth once daily. ketoconazole (NIZORAL) 2 % cream Apply to affected area once daily for 10 days. (more content not included)...[facility]02-24-2025 History of Present illness Narrative* Chula Valentine APRN.[employer]CE [employer]ER - 10/09/2024 11:05 AM EST CC: Patient presents with: frequrncy : Frequency and some itching x 2 weeks HPI Janessa Baron is a 74 year old female who is s/p hospitalization for pyelonephritis and sepsis 09/25/24, who presents today for vaginal itching and positive home UTI tests x 2. She is fearful another infection will occur without her knowing so she took a home test yesterday and today with positive le ukocytes. She denies dysuria, frequency, discharge or hematuria.She has low back pain but this is not new. During her hospitalization she reports being treated for a yeast infection with Diflucan twice. She was sent home on miconazole vaginal inserts x 7 days and Cipro for her urinary infection. She finished miconazole yesterday and will take the last Cipro today. She was told to be cautious about any symptoms of UTI and address them ZAY if she had concerns. She has history DM II. Review of Systems Constitutional: Negative for appetite change, chills and fever. Respiratory: Negative for cough, chest tightness, shortness of breath and wheezing. Cardiovascular: Negative for chest pain and palpitations. Gastrointestinal: Negative for abdominal pain, diarrhea, nausea and vomiting. Genitourinary: Negative for difficulty urinating, dysuria, flank pain, frequency, hematuria, pelvicpain, urgency, vaginal bleeding, vaginal discharge and vaginal pain. Vulvae pruritus Musculoskeletal: Positive for back pain. Negative for myalgias. Skin: Negative for color change and rash. Neurological: Negative for dizziness, syncope, weakness, light-headedness and headaches. PAST MEDICAL HISTORY Diagnosis Date Asthma Carotid stenosis Delayed emergence from general anesthesia deep anesthesia 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) 05/22/2022 Diabetes mellitus, type 2 (HCC) Hyperlipidemia Hypertension Sliding hiatal hernia PAST SURGICAL HISTORY Procedure Laterality Date BREAST BIOPSY Bilateral benign BREAST SURGERY HX CHOLECYSTECTOMY COLONOSCOPY 05/2017 COLONOSCOPY SCREENING 2019 EGD 04/2017 EGD DIAGNOSTIC 01/2023 F SALPINGO-OOPHORECTOMY Left IR RT HEART CATH 11/10/2022 PAST SURGICAL HISTORY OF left TM repair PAST SURGICAL HISTORY OF Left 12/1991 Repair of hole in left eardrum PAST SURGICAL HISTORY OF 06/03/1998 Scalp - removal of sebaceaous cyst PAST SURGICAL HISTORY OF 11/26/2022 Triple Bypass PAST SURGICAL HISTORY OF 01/25/2024 Left carotid artery stint REMV CATARACT EXTRACAP,INSERT LENS Left REMV CATARACT EXTRACAP,INSERT LENS Right TUBAL LIGATION ALLERGIES Metoclopramide, Sulfamethoxazole-Trimethoprim, Morphine, Acetaminophen, Augmentin [Amoxicillin-Pot Clavulanate], Cefzil [Cefprozil], Dayquil Allergy 12-Hr, Dextromethorphan, Doxylamine, Erythromycin, Iodinated Contrast Media, Ivp Dye [Iodine], Lincomycin, Pseudoephedrine, Reglan [Metoclopr amide Hcl], Mhlrykc-Xvl-Spw Reductase Inhibitors, Tequin [Gatifloxacin], and Doxycycline MEDICATIONS SITagliptin phosphate (JANUVIA) 100 mg tablet Take 1 tablet by mouth once daily. hydrOXYzine HCl (ATARAX) 25 mg tablet Take 1 tablet by mouth every 12 hours as needed for anxiety. polyethylene glycol 3350 17 gram packet Take 1 Packet by mouth once daily. Dissolve dose in 4 - 8 ounces of liquid and take as directed. senna (SENOKOT) 8.6 mg tab Take 1 tablet by mouth two times a day. predniSONE (DELTASONE) 20 mg tablet Take 3 tablets by mouth once daily. X3d, then 2 po every day x 3d then 1 po every day x 3d, then 1/2 po every day x 4d benzonatate (TESSALON PERLE) 100 mg capsule Take 1 capsule by mouth three times a day as needed. glimepiride (AMARYL) 4 mg tablet Take 1 tablet by mouth daily with breakfast. HYDROcodone-acetaminophen (NORCO) 5-325 mg per tablet Take 1 tablet by mouth every 8 hours as needed for pain. benzocaine/benzethon Cl (DERMOPLAST ANTIBACTERIAL TOPICAL) Apply to affected area as needed. lidocaine (SALONPAS) 4 % patch Apply 1 application as directed once daily. albuterol (PROVENTIL) 2.5 mg /3 mL (0.083 %) nebulizer solution INHALE WITH 1 VIAL IN NEBULIZER EVERY SIX HOURS NEEDED rosuvastatin (CRESTOR) 10 mg tablet Take 1 tablet by mouth daily at bedtime. metFORMIN (GLUCOPHAGE) 500 mg tablet Take 2 tablets by mouth two times a day with meals. blood sugar diagnostic (ONETOUCH ULTRA TEST) test strip Monitor blood sugar daily and as needed. montelukast (SINGULAIR) 10 mg tablet Take 1 tablet by mouth daily at bedtime. omeprazole (PRILOSEC) 40 mg capsule Take 1 capsule by mouth two times a day. pioglitazone (ACTOS) 45 mg tablet Take 1 tablet by mouth once daily. lisinopril-hydroCHLOROthiazide (ZESTORETIC) 20-12.5 mg per tablet Take 1 tablet by mouth once daily. ketoconazole (NIZORAL) 2 % cream Apply to affected area once daily for 10 days. NYSTOP powder APPLY TO THE AFFECTED AREA(S) THREE TIMES DAILY sucralfate (CARAFATE) 1 gram tablet Take 1 g by mouth three times a day. 1/2 hour before meals budesonide (PULMICORT) 0.5 mg/2 mL nebulizer solution mix 2 ampules with saline and apply twice daily gel base no.41, bulk, (HYDROGEL) gel 1 Dose once daily. lancets (ONE TOUCH DELICA) 33 gauge 1 Each once daily. blood sugar diagnostic (ONETOUCH ULTRA TEST) test strip 1 Strip before meals and at bedtime. Use asinstructed aspirin, enteric coated (ASPIRIN, ENTERIC COATED) 81 mg EC tablet Take 81 mg by mouth once daily. lancets (TRUEPLUS LANCETS) 33 gauge Monitor blood sugar daily and as needed. traMADol (ULTRAM) 50 mg tablet Take 50 mg by mouth every 6 hours as needed for pain. diclofenac (VOLTAREN) 1 % topical gel Apply to affected area four times daily. mag carb/aluminum hydrox/algin (GAVISCON ORAL) Take 1 tablet by mouth as needed. cetirizine HCl (ZYRTEC ORAL) Take 1 tablet by mouth once daily. ubidecarenone (CO Q-10 ORAL) Take by mouth. FAMILY HISTORY Problem Relation Age of Onset Heart Mother Stroke Mother Emphysema Father Heart Father Heart Attack Father Colon Cancer Sister 67 Diabetes Sister Diabetes Sister Heart Sister Thyroid Cancer Brother Social History Tobacco Use Smoking status: Never Smokeless tobacco: Never Vaping Use Vaping status: Never Used Substance Use Topics Alcohol use: Not Currently Drug use: Not Currently BP 144/82 Pulse 93 Temp 36.4 C (97.5 F) (Tympanic) Resp 18 Wt 88.8 kg (195 lb 12.3 oz) SpO2 100% BMI 34.68 kg/m Physical Exam Constitutional: General: She is awake. She is not in acute distress. Appearance: Normal appearance. She is not ill-appearing, toxic-appearing or diaphoretic. HENT: Head: Normocephalic and atraumatic. Right Ear: Tympanic membrane normal. Left Ear: Tympanic membrane normal. Eyes: Extraocular Movements: Extraocular movements intact. Pupils: Pupils are equal, round, and reactive to light. Cardiovascular: Rate and Rhythm: Normal rate and regular rhythm. Heart sounds: S1 normal and S2 normal. Murmur heard. Pulmonary: Effort: Pulmonary effort is normal. Breath sounds: Normal breath sounds. No decreased breath sounds, wheezing or rhonchi. Abdominal: General: Bowel sounds are normal. Palpations: Abdomen is soft. Tenderness: There is no abdominal tenderness. There is no right CVA tenderness, left CVA tenderness, guarding or rebound. Genitourinary: Comments: Deferred- Patient self swabbed Musculoskeletal: General: No swelling, tenderness, deformity or signs of injury. Normal range of motion. Lymphadenopathy: Cervical: No cervical adenopathy. Skin: General: Skin is warm. Capillary Refill: Capillary refill takes less than 2 seconds. Findings: No rash. Neurological: General: No focal deficit present. Mental Status: She is alert and oriented to person, place, and time. Cranial Nerves: No cranial nerve deficit. Sensory: No sensory deficit. Motor: No weakness. Coordination: Coordination normal. Psychiatric: Mood and Affect: Mood normal. Behavior: Behavior normal. Behavior is cooperative. ASSESSMENT/PLAN: 1. Vaginal itching - ICD9: 698.1, ICD10: N89.8 (primary diagnosis) Has experienced since hospitalization 09/25/24. Has taken diflucan x 2 and miconazole. Denies vaginal discharge, pelvic or abdominal pain. No dysuria, frequency or hematuria.Took two home tests for UTI and reports +leukocytes.Home fingerstick glucose reported 117. exam deferred-patient self swabbed. - Start taking Diflucan - Will call if urine culture positive Call with swab results, and modify treatment plan as indicated. - UA DIP, URINE (POC) - MADELINE/TRICHOMONAS NAAT - BACTERIAL VAGINOSIS NAAT - BACTERIAL CULTURE, URINE - FLUCONAZOLE 150 MG TABLET 2. H/O pyelonephritis - ICD9: V13.02, ICD10: Z87.448 Hospitalized 09/25/2024 for pyelonephritis and sepsis. Vitals stable,, afebrile, no respiratory symptoms or syncope, change in metal status or CVA tenderness. - Finish hospital discharge medications - Follow up with PCP in 3-5 days if symptoms persist or worsen - Red flag symptoms discussed - BACTERIAL CULTURE, URINE Prescription instructions reviewed with patient as applicable. Potential red flag symptoms discussed with the patient. Reviewed appropriate action plan to take if red flag symptoms occur. Patient agreeable to treatment plan. Isabela Taylor TEACHING PROVIDER (Physician/PA/BROKE HANDLER) NOTE OF PERSONAL INVOLVEMENT IN CARE: I have personally seen and examined the patient and performed the medical decision-making components. I have reviewed the Advanced Practice Registered Nurse (BROKE HANDLER) Student's documentation and verified the findings in the note as written. Any additions or changes are noted in bold/italics. Signature: Chula Valentine Date: 10/09/2024 Time: 11:53 AM documented in this [facility] NoteHNO ID: [id number] Author: LOVELY POLK RN Service: ? Author Type: Registered Nurse Type: Progress Notes Filed: 10/03/2024 14:03 Note Text: TRANSITION CARE MANAGEMENT (TCM) INITIAL CONTACT Provider Action/FYI: TCM initial call. Enrolled. Pt reports she is ok Still tired. Taking an antibiotic. Is taking in extra fluids. Appetite is fair. Had PCP follow up appt yesterday, 10/02. Pt is concerned that she had no idea that she had a UTI when she became ill. Reports was at [facility] provider the week before, urine test was completed then and it showed no UTI. Encouraged pt to contact PCP for any new concerns or symptoms. Initial contact with patient post discharge, spoke to pt. Patient identified by name and . TCM Eligibility Documentation Program: Transitional Care Management Status: Enrolled Effective Dates: 10/03/2024 - present Responsible Staff: Lovely Polk RN Discharge date: 09/29/2024 (Program start) Date of initial contact: N/A Initial contact Target status: No contact; Completed at least 2 attempts within 2 business days post-discharge SUMMARY: -Pt discharged from [facility] on 09/29. -Follow up appointment on 10/02. -Medication review done yes. -Admitted for: Pyelonephritis CONCERNS: As above NEW MEDICATIONS: Cipro Atarax Monistat Mirilax Sennakot MEDS HELD/DISCONTINUED: Arlin BRIEF HOSPITAL COURSE: Janessa Baron is a 74 year old female h/o chronic low back pain, HTN, CAD s/p CABG x 3 (11/2022), type 2 DM, carotid artery stenosis s/p stent, fibromyalgia.Apparently her had an appointment at [facility] and she accompanied him in car. After prolonged waiting in car, when she was getting out of car, felt lightheaded at which point she was helped by her and F staff. Since patient continued to feel unwell, presented to ED. [facility] Polk [facility] History of Present illness Narrative* Lovely Polk RN - 10/03/2024 1:55 PM EST TRANSITION CARE MANAGEMENT (TCM) INITIAL CONTACT Provider Action/FYI: TCM initial call. Enrolled. Pt reports she is ok Still tired. Taking an antibiotic. Is taking in extra fluids. Appetite is fair. Had PCP follow up appt yesterday, 10/02. Pt is concerned that she had no idea that she had a UTI when she became ill. Reports was at [facility] provider the week before, urine test was completed then and it showed no UTI. Encouraged pt to contact PCP for any new concerns or symptoms. Initial contact with patient post discharge, spoke to pt. Patient identified by name and . TCM Eligibility Documentation Program: Transitional Care Management Status: Enrolled Effective Dates: 10/03/2024 - present Responsible Staff: Lovely Polk RN Discharge date: 09/29/2024 (Program start) Date of initial contact: N/A Initial contact Target status: No contact; Completed at least 2 attempts within 2 business days post-discharge SUMMARY: -Pt discharged from [facility] on 09/29. -Follow up appointment on 10/02. -Medication review done yes. -Admitted for: Pyelonephritis CONCERNS: As above NEW MEDICATIONS: Cipro Atarax Monistat Mirilax Sennakot MEDS HELD/DISCONTINUED: Arlin [facility] COURSE: Janessa Baron is a 74 year old female h/o chronic low back pain, HTN, CAD s/p CABG x 3 (11/2022), type 2 DM, carotid artery stenosis s/p stent, fibromyalgia.Apparently her had an appointment at [facility] and she accompanied him in car. After prolonged waiting in car, josh was getting out of car, felt lightheaded at which point she was helped by her and F staff. Since patient continued to feel unwell, presented to ED. Lovely Polk RN documented in this encounterW[facility]ot [facility]02-18-2025 NoteHNO ID: [id number] Author: LOVELY POLK RN Service: ? Author Type: Registered Nurse Type: Progress Notes Filed: 10/03/2024 10:34 Note Text: Unable to make contact Provider Action/FYI TCM outreach attempt #2. Calls placed to all numbers provided. No answer. Left VM Patient identified by name and date of : YES An attempt was made to contact: Patient Was a voicemail left? Yes including my name, role, and return number Outreach Plan: Follow up call needed:Yes Lovely Polk [facility] History of Present illness Narrative* Lovely Polk RN - 10/03/2024 10:30 AM EST Unable to make contact Provider Action/FYI TCM outreach attempt #2. Calls placed to all numbers provided. No answer. Left VM Patient identified by name and date of : YES An attempt was made to contact: Patient Was a voicemail left? Yes including my name, role, and return number Outreach Plan: Follow up call needed:Yes Lovely Polk RN documented in this encounterWyandot [facility]02-18-2025 NotePatient Outreach (MRCAC) JANESSA BARON ([id number]) 1950 F Date Time Provider Department 10/03/24 LOVELY POLK MRCAC During your visit today, we recorded the following information about you: Lovely Polk RN 10/03/2024 10:34 AM Signed Unable to make contact Provider Action/FYI TCM outreach attempt #2. Calls placed to all numbers provided. No answer. Left VM Patient identified by name and date of : YES An attempt was made to contact: Patient Was a voicemail left? Yes including my name, role, and return number Outreach Plan: Follow up call needed:Yes Lovely Polk RN Allergies As of Date: 10/03/2024 Noted Allergy Reaction METOCLOPRAMIDE 01/31/2017 16 - Unknown SULFAMETHOXAZOLE-TRIMETHOPRIM 04/01/2017 16 - Unknown MORPHINE 07/24/2020 16 - Unknown ACETAMINOPHEN 04/07/2023 16 - Unknown AUGMENTIN (AMOXICILLIN-POT CLAVUL*04/27/2018 2 - Rash CEFZIL (CEFPROZIL) 04/27/2018 2 - Rash DAYQUIL ALLERGY 12-HR 04/27/2018 4 - Hives DEXTROMETHORPHAN 01/31/2017 4 - Hives DOXYLAMINE 01/31/2017 4 - Hives ERYTHROMYCIN 04/27/2018 2 - Rash IODINATED CONTRAST MEDIA 05/22/2019 4 - Hives IVP DYE (IODINE) 04/27/2018 16 - Unknown Comments: knot on head LINCOMYCIN 04/27/2018 2 - Rash PSEUDOEPHEDRINE 01/31/2017 4 - Hives REGLAN (METOCLOPRAMIDE HCL) 04/27/2018 5 - Intolerance QHENIRI-CBM-UTR REDUCTASE INHIBIT*01/31/2017 16 - Unknown Comments: Other reaction(s): Other TEQUIN (GATIFLOXACIN) 04/27/2018 2 - Rash DOXYCYCLINE 11/28/2018 16 - Unknown 11 - Vomiting Date Reviewed: 10/02/2024 Reviewed by: Spring Shipley LPN - Fully Assessed Prescriptions as of 10/03/2024 - SITagliptin phosphate (JANUVIA) 100 mg tablet Take 1 tablet by mouth once daily. - hydrOXYzine HCl (ATARAX) 25 mg tablet Take 1 tablet by mouth every 12 hours as needed for anxiety. - miconazole (MONISTAT) 2 % vaginal cream Use 1 Applicator vaginally daily at bedtime for 7 doses. - polyethylene glycol 3350 17 gram packet Take 1 Packet by mouth once daily. Dissolve dose in 4 - 8 ounces of liquid and take as directed. - senna (SENOKOT) 8.6 mg tab Take 1 tablet by mouth two times a day. - ciprofloxacin HCl (CIPRO) 500 mg tablet Take 1 tablet by mouth two times a day for 9 days. - predniSONE (DELTASONE) 20 mg tablet Take 3 tablets by mouth once daily. X3d, then 2 po every day x 3d then 1 po every day x 3d, then 1/2 po every day x 4d - benzonatate (TESSALON PERLE) 100 mg capsule Take 1 capsule by mouth three times a day as needed. - glimepiride (AMARYL) 4 mg tablet Take 1 tablet by mouth daily with breakfast. - HYDROcodone-acetaminophen (NORCO) 5-325 mg per tablet Take 1 tablet by mouth every 8 hours as needed for pain. - benzocaine/benzethon Cl (DERMOPLAST ANTIBACTERIAL TOPICAL) Apply to affected area as needed. - lidocaine (SALONPAS) 4 % patch Apply 1 application as directed once daily. - albuterol (PROVENTIL) 2.5 mg /3 mL (0.083 %) nebulizer solution INHALE WITH 1 VIAL IN NEBULIZER EVERY SIX HOURS NEEDED - rosuvastatin (CRESTOR) 10 mg tablet Take 1 tablet by mouth daily at bedtime. - metFORMIN (GLUCOPHAGE) 500 mg tablet Take 2 tablets by mouth two times a day with meals. - blood sugar diagnostic (ONETOUCH ULTRA TEST) test strip Monitor blood sugar daily and as needed. - montelukast (SINGULAIR) 10 mg tablet Take 1 tablet by mouth daily at bedtime. - omeprazole (PRILOSEC) 40 mg capsule Take 1 capsule by mouth two times a day. - pioglitazone (ACTOS) 45 mg tablet Take 1 tablet by mouth once daily. - lisinopril-hydroCHLOROthiazide (ZESTORETIC) 20-12.5 mg per tablet Take 1 tablet by mouth once daily. - ketoconazole (NIZORAL) 2 % cream Apply to affected area once daily for 10 days. - NYSTOP powder APPLY TO THE AFFECTED AREA(S) THREE TIMES DAILY - sucralfate (CARAFATE) 1 gram tablet Take 1 g by mouth three times a day. 1/2 hour before meals - budesonide (PULMICORT) 0.5 mg/2 mL nebulizer solution mix 2 ampules with saline and apply twice daily - gel base no.41, bulk, (HYDROGEL) gel 1 Dose once daily. - lancets (ONE TOUCH DELICA) 33 gauge 1 Each once daily. - blood sugar diagnostic (ONETOUCH ULTRA TEST) test strip 1 Strip before meals and at bedtime. Use as instructed - aspirin, enteric coated (ASPIRIN, ENTERIC COATED) 81 mg EC tablet Take 81 mg by mouth once daily. - lancets (TRUEPLUS LANCETS) 33 gauge Monitor blood sugar daily and as needed. - traMADol (ULTRAM) 50 mg tablet Take 50 mg by mouth every 6 hours as needed for pain. - diclofenac (VOLTAREN) 1 % topical gel Apply to affected area four times daily. - mag carb/aluminum hydrox/algin (GAVISCON ORAL) Take 1 tablet by mouth as needed. - cetirizine HCl (ZYRTEC ORAL) Take 1 tablet by mouth once daily. - ubidecarenone (CO Q-10 ORAL) Take by mouth. Problem List As Of Date 10/03/2024 Noted Resolved Type 2 diabetes mellitus wi (more content not included)...[facility] 10-03-[facility]24 NotePatient Outreach (MRCAC) JANESSA BARON ([id number]) 1950 F Date Time Provider Department 10/03/24 LOVELY POLK MRCAC During your visit today, we recorded the following information about you: Lovely Polk, EBER 10/03/2024 2:03 PM Signed TRANSITION CARE MANAGEMENT (TCM) INITIAL CONTACT Provider Action/FYI: TCM initial call. Enrolled. Pt reports she is ok Still tired. Taking an antibiotic. Is taking in extra fluids. Appetite is fair. Had PCP follow up appt yesterday, 10/02. Pt is concerned that she had no idea that she had a UTI when she became ill. Reports was at [facility] provider the week before, urine test was completed then and it showed no UTI. Encouraged pt to contact PCP for any new concerns or symptoms. Initial contact with patient post discharge, spoke to pt. Patient identified by name and . TCM Eligibility Documentation Program: Transitional Care Management Status: Enrolled Effective Dates: 10/03/2024 - present Responsible Staff: Lovely Polk commercial internship date: 09/29/2024 (Program start) Date of initial contact: N/A Initial contact Target status: No contact; Completed at least 2 attempts within 2 business days post-discharge SUMMARY: -Pt discharged from [facility] on 09/29. -Follow up appointment on 10/02. -Medication review done yes. -Admitted for: Pyelonephritis CONCERNS: As above NEW MEDICATIONS: Cipro Atarax Monistat Mirilax Sennakot MEDS HELD/DISCONTINUED: Arlin BRIEF HOSPITAL COURSE: Janessa Baron is a 74 year old female h/o chronic low back pain, HTN, CAD s/p CABG x 3 (11/2022), type 2 DM, carotid artery stenosis s/p stent, fibromyalgia.Apparently her had an appointment at [facility] and she accompanied him in car. After prolonged waiting in car, when she was getting out of car, felt lightheaded at which point she was helped by her and [facility] staff. Since patient continued to feel unwell, presented to ED. Lovely Polk RN Allergies As of Date: 10/03/2024 Noted Allergy Reaction METOCLOPRAMIDE 01/31/2017 16 - Unknown SULFAMETHOXAZOLE-TRIMETHOPRIM 04/01/2017 16 - Unknown MORPHINE 07/24/2020 16 - Unknown ACETAMINOPHEN 04/07/2023 16 - Unknown AUGMENTIN (AMOXICILLIN-POT CLAVUL*04/27/2018 2 - Rash CEFZIL (CEFPROZIL) 04/27/2018 2 - Rash DAYQUIL ALLERGY 12-HR 04/27/2018 4 - Hives DEXTROMETHORPHAN 01/31/2017 4 - Hives DOXYLAMINE 01/31/2017 4 - Hives ERYTHROMYCIN 04/27/2018 2 - Rash IODINATED CONTRAST MEDIA 05/22/2019 4 - Hives IVP DYE (IODINE) 04/27/2018 16 - Unknown Comments: knot on head LINCOMYCIN 04/27/2018 2 - Rash PSEUDOEPHEDRINE 01/31/2017 4 - Hives REGLAN (METOCLOPRAMIDE HCL) 04/27/2018 5 - Intolerance [id number] REDUCTASE INHIBIT*01/31/2017 16 - Unknown Comments: Other reaction(s): Other TEQUIN (GATIFLOXACIN) 04/27/2018 2 - Rash DOXYCYCLINE 11/28/2018 16 - Unknown 11 - Vomiting Date Reviewed: 10/02/2024 Reviewed by: Spring Shipley LPN - Fully Assessed Prescriptions as of 10/03/2024 - SITagliptin phosphate (JANUVIA) 100 mg tablet Take 1 tablet by mouth once daily. - hydrOXYzine HCl (ATARAX) 25 mg tablet Take 1 tablet by mouth every 12 hours as needed for anxiety. - miconazole (MONISTAT) 2 % vaginal cream Use 1 Applicator vaginally daily at bedtime for 7 doses. - polyethylene glycol 3350 17 gram packet Take 1 Packet by mouth once daily. Dissolve dose in 4 - 8 ounces of liquid and take as directed. - senna (SENOKOT) 8.6 mg tab Take 1 tablet by mouth two times a day. - ciprofloxacin HCl (CIPRO) 500 mg tablet Take 1 tablet by mouth two times a day for 9 days. - predniSONE (DELTASONE) 20 mg tablet Take 3 tablets by mouth once daily. X3d, then 2 po every day x 3d then 1 po every day x 3d, then 1/2 po every day x 4d - benzonatate (TESSALON PERLE) 100 mg capsule Take 1 capsule by mouth three times a day as needed. - glimepiride (AMARYL) 4 mg tablet Take 1 tablet by mouth daily with breakfast. - HYDROcodone-acetaminophen (NORCO) 5-325 mg per tablet Take 1 tablet by mouth every 8 hours as needed for pain. - benzocaine/benzethon Cl (DERMOPLAST ANTIBACTERIAL TOPICAL) Apply to affected area as needed. - lidocaine (SALONPAS) 4 % patch Apply 1 application as directed once daily. - albuterol (PROVENTIL) 2.5 mg /3 mL (0.083 %) nebulizer solution INHALE WITH 1 VIAL IN NEBULIZER EVERY SIX HOURS NEEDED - rosuvastatin (CRESTOR) 10 mg tablet Take 1 tablet by mouth daily at bedtime. - metFORMIN (GLUCOPHAGE) 500 mg tablet Take 2 tablets by mouth two times a day with meals. - blood sugar diagnostic (ArterisTOUCH ULTRA TEST) test strip Monitor blood sugar daily and as needed. - montelukast (SINGULAIR) 10 mg tablet Take 1 tablet by mouth daily at bedtime. - omeprazole (PRILOSEC) 40 mg capsule Take 1 capsule by mouth two times a day. - pioglitazone (ACTOS) 45 mg tablet Take 1 (more content not included)...[facility]02-17-2025 NoteHNO ID: [id number] Author: KALI BACON MD Service: ? Author Type: Physician Type: Progress Notes Filed: 10/02/2024 14:48 Note Text: Subjective Janessa Baron is a 74 year old female. Patient was also recent in [facility] from 09-25-2024 to 09-29-2024 for Pyelonephritis. In ED, vital signs stable. EKG-normal sinus rhythm. HST . Chest x-ray-no acute abnormalities WCC 15K, K3.2, COVID/influenza/RSV negative.UA suggestive of UTI. Sepsis lactate was 3.9 after which infectious workup was undertaken including blood cultures , received IV fluids and ceftriaxone. Follow-up lactic acid improved to 2.2. 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 E. coli bacteremia-urinary source 2. Urinary tract infection-urine cultures positive for E. Coli Blood and urine cultures from 09/25/2024-positive for E. coli, pansensitive except for ampicillin Patient was recommended to discontinue empagliflozin due to recurrent UTIs which is a relative contraindication for SGLT2 inhibitor. Additionally she presents for suture removal from biopsy completed. Review of Systems Constitutional: Negative. HENT: Negative. Eyes: Negative. Respiratory: Negative. Cardiovascular: Negative. Gastrointestinal: Negative. Endocrine: Negative. Genitourinary: Negative. Musculoskeletal: Negative. Skin: Negative. Allergic/Immunologic: Negative. Neurological: Negative. Hematological: Negative. Psychiatric/Behavioral: Negative. PAST SURGICAL HISTORY Procedure Laterality Date BREAST BIOPSY Bilateral benign BREAST SURGERY HX CHOLECYSTECTOMY COLONOSCOPY 05/2017 COLONOSCOPY SCREENING 2019 EGD 04/2017 EGD DIAGNOSTIC 01/2023 F SALPINGO-OOPHORECTOMY Left IR RT HEART CATH 11/10/2022 PAST SURGICAL HISTORY OF left TM repair PAST SURGICAL HISTORY OF Left 12/1991 Repair of hole in left eardrum PAST SURGICAL HISTORY OF 06/03/1998 Scalp - removal of sebaceaous cyst PAST SURGICAL HISTORY OF 11/26/2022 Triple Bypass PAST SURGICAL HISTORY OF 01/25/2024 Left carotid artery stint REMV CATARACT EXTRACAP,INSERT LENS Left REMV CATARACT EXTRACAP,INSERT LENS Right TUBAL LIGATION PAST MEDICAL HISTORY Diagnosis Date Asthma Carotid stenosis Delayed emergence from general anesthesia deep anesthesia 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) 05/22/2022 Diabetes mellitus, type 2 (HCC) Hyperlipidemia Hypertension Sliding hiatal hernia FAMILY HISTORY Problem Relation Age of Onset Heart Mother Stroke Mother Emphysema Father Heart Father Heart Attack Father Colon Cancer Sister 67 Diabetes Sister Diabetes Sister Heart Sister Thyroid Cancer Brother Social History Tobacco Use Smoking status: Never Smokeless tobacco: Never Vaping Use Vaping status: Never Used Substance Use Topics Alcohol use: Not Currently Drug use: Not Currently ALLERGIES Allergen Reactions Metoclopramide Unknown Sulfamethoxazole-Tr* Unknown Morphine Unknown Acetaminophen Unknown Augmentin [Amoxicil* Rash Cefzil [Cefprozil] Rash Dayquil Allergy 12-* Hives Dextromethorphan Hives Doxylamine Hives Erythromycin Rash Iodinated Contrast * Hives Ivp Dye [Iodine] Unknown knot on head Lincomycin Rash Pseudoephedrine Hives Reglan [Metoclopram* Intolerance Gnlzzbu-Lwo-Ogt Red* Unknown Other reaction(s): Other Tequin [Gatifloxaci* Rash Doxycycline Unknown, Vomiting MEDICATIONS: hydrOXYzine HCl (ATARAX) 25 mg tablet Take 1 tablet by mouth every 12 hours as needed for anxiety. miconazole (MONISTAT) 2 % vaginal cream Use 1 Applicator vaginally daily at bedtime for 7 doses. polyethylene glycol 3350 17 gram packet Take 1 Packet by mouth once daily. Dissolve dose in 4 - 8 ounces of liquid and take as directed. senna (SENOKOT) 8.6 mg tab Take 1 tablet by mouth two times a day. ciprofloxacin HCl (CIPRO) 500 mg tablet Take 1 tablet by mouth two times a day for 9 days. predniSONE (DELTASONE) 20 mg tablet Take 3 tablets by mouth once daily. X3d, then 2 po every day x 3d then 1 po every day x 3d, then 1/2 po every day x 4d benzonatate (TESSALON PERLE) 100 mg capsule Take 1 capsule by mouth three times a day as needed. glimepiride (AMARYL) 4 mg tablet Take 1 tablet by mouth daily with breakfast. HYDROcodone-acetaminophen (NORCO) 5-325 mg per tablet Take 1 tablet by mouth every 8 hours as needed for pain. benzocaine/benzethon Cl (DERMOPLAST ANTIBACTERIAL TOPICAL) Apply to affected area as needed. lidocaine (SALONPAS) 4 % patch Apply 1 application as directed once daily. albuterol (PROVENTIL) 2.5 mg /3 mL (0.083 %) nebulizer solution INHALE WITH 1 VIAL IN NEBULIZER EVERY SIX HOURS NEEDED rosuvastatin (CRESTOR) 10 mg tablet Take 1 tablet by mouth daily at bedtime. metFORMIN (G (more content not included)...[facility]02-17-2025 History of Present illness Narrative* Kali Bacon MD - 10/02/2024 2:40 PM EST Subjective Janessa Baron is a 74 year old female. Patient was also recent in [facility] from 09-25-2024 to 09-29-2024 for Pyelonephritis. In ED, vital signs stable. EKG-normal sinus rhythm. HST 14-16-17. Chest x-ray-no acute abnormalities WCC 15K, K3.2, COVID/influenza/RSV negative.UA suggestive of UTI. Sepsis lactate was 3.9 after which infectious workup was undertaken including blood cultures , received IV fluids and ceftriaxone. Follow-up lactic acid improved to 2.2. 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 E. coli bacteremia-urinary source 2. Urinary tract infection-urine cultures positive for E. Coli Blood and urine cultures from 09/25/2024-positive for E. coli, pansensitive except for ampicillin Patient was recommended to discontinue empagliflozin due to recurrent UTIs which is a relative contraindication for SGLT2 inhibitor. Additionally she presents for suture removal from biopsy completed. Review of Systems Constitutional: Negative. HENT: Negative. Eyes: Negative. Respiratory: Negative. Cardiovascular: Negative. Gastrointestinal: Negative. Endocrine: Negative. Genitourinary: Negative. Musculoskeletal: Negative. Skin: Negative. Allergic/Immunologic: Negative. Neurological: Negative. Hematological: Negative. Psychiatric/Behavioral: Negative. PAST SURGICAL HISTORY Procedure Laterality Date BREAST BIOPSY Bilateral benign BREAST SURGERY HX CHOLECYSTECTOMY COLONOSCOPY 05/2017 COLONOSCOPY SCREENING 2019 EGD 04/2017 EGD DIAGNOSTIC 01/2023 F SALPINGO-OOPHORECTOMY Left IR RT HEART CATH 11/10/2022 PAST SURGICAL HISTORY OF left TM repair PAST SURGICAL HISTORY OF Left 12/1991 Repair of hole in left eardrum PAST SURGICAL HISTORY OF 06/03/1998 Scalp - removal of sebaceaous cyst PAST SURGICAL HISTORY OF 11/26/2022 Triple Bypass PAST SURGICAL HISTORY OF 01/25/2024 Left carotid artery stint REMV CATARACT EXTRACAP,INSERT LENS Left REMV CATARACT EXTRACAP,INSERT LENS Right TUBAL LIGATION PAST MEDICAL HISTORY Diagnosis Date Asthma Carotid stenosis Delayed emergence from general anesthesia deep anesthesia 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) 05/22/2022 Diabetes mellitus, type 2 (HCC) Hyperlipidemia Hypertension Sliding hiatal hernia FAMILY HISTORY Problem Relation Age of Onset Heart Mother Stroke Mother Emphysema Father Heart Father Heart Attack Father Colon Cancer Sister 67 Diabetes Sister Diabetes Sister Heart Sister Thyroid Cancer Brother Social History Tobacco Use Smoking status: Never Smokeless tobacco: Never Vaping Use Vaping status: Never Used Substance Use Topics Alcohol use: Not Currently Drug use: Not Currently ALLERGIES Allergen Reactions Metoclopramide Unknown Sulfamethoxazole-Tr* Unknown Morphine Unknown Acetaminophen Unknown Augmentin [Amoxicil* Rash Cefzil [Cefprozil] Rash Dayquil Allergy 12-* Hives Dextromethorphan Hives Doxylamine Hives Erythromycin Rash Iodinated Contrast * Hives Ivp Dye [Iodine] Unknown knot on head Lincomycin Rash Pseudoephedrine Hives Reglan [Metoclopram* Intolerance Fczfzgp-Oha-Zwk Red* Unknown Other reaction(s): Other Tequin [Gatifloxaci* Rash Doxycycline Unknown, Vomiting MEDICATIONS: hydrOXYzine HCl (ATARAX) 25 mg tablet Take 1 tablet by mouth every 12 hours as needed for anxiety. miconazole (MONISTAT) 2 % vaginal cream Use 1 Applicator vaginally daily at bedtime for 7 doses. polyethylene glycol 3350 17 gram packet Take 1 Packet by mouth once daily. Dissolve dose in 4 - 8 ounces of liquid and take as directed. senna (SENOKOT) 8.6 mg tab Take 1 tablet by mouth two times a day. ciprofloxacin HCl (CIPRO) 500 mg tablet Take 1 tablet by mouth two times a day for 9 days. predniSONE (DELTASONE) 20 mg tablet Take 3 tablets by mouth once daily. X3d, then 2 po every day x 3d then 1 po every day x 3d, then 1/2 po every day x 4d benzonatate (TESSALON PERLE) 100 mg capsule Take 1 capsule by mouth three times a day as needed. glimepiride (AMARYL) 4 mg tablet Take 1 tablet by mouth daily with breakfast. HYDROcodone-acetaminophen (NORCO) 5-325 mg per tablet Take 1 tablet by mouth every 8 hours as needed for pain. benzocaine/benzethon Cl (DERMOPLAST ANTIBACTERIAL TOPICAL) Apply to affected area as needed. lidocaine (SALONPAS) 4 % patch Apply 1 application as directed once daily. albuterol (PROVENTIL) 2.5 mg /3 mL (0.083 %) nebulizer solution INHALE WITH 1 VIAL IN NEBULIZER EVERY SIX HOURS NEEDED rosuvastatin (CRESTOR) 10 mg tablet Take 1 tablet by mouth daily at bedtime. metFORMIN (GLUCOPHAGE) 500 mg tablet Take 2 tablets by mouth two times a day with meals. blood sugar diagnostic (ONETOUCH ULTRA TEST) test strip Monitor blood sugar daily and as needed. montelukast (SINGULAIR) 10 mg tablet Take 1 tablet by mouth daily at bedtime. omeprazole (PRILOSEC) 40 mg capsule Take 1 capsule by mouth two times a day. pioglitazone (ACTOS) 45 mg tablet Take 1 tablet by mouth once daily. lisinopril-hydroCHLOROthiazide (ZESTORETIC) 20-12.5 mg per tablet Take 1 tablet by mouth once daily. ketoconazole (NIZORAL) 2 % cream Apply to affected area once daily for 10 days. NYSTOP powder APPLY TO THE AFFECTED AREA(S) THREE TIMES DAILY sucralfate (CARAFATE) 1 gram tablet Take 1 g by mouth three times a day. 1/2 hour before meals budesonide (PULMICORT) 0.5 mg/2 mL nebulizer solution mix 2 ampules with saline and apply twice daily gel base no.41, bulk, (HYDROGEL) gel 1 Dose once daily. lancets (ONE TOUCH DELBinfire) 33 gauge 1 Each once daily. blood sugar diagnostic (ONETOUCH ULTRA TEST) test strip 1 Strip before meals and at bedtime. Use asinstructed aspirin, enteric coated (ASPIRIN, ENTERIC COATED) 81 mg EC tablet Take 81 mg by mouth once daily. lancets (TRUEPLUS LANCETS) 33 gauge Monitor blood sugar daily and as needed. traMADol (ULTRAM) 50 mg tablet Take 50 mg by mouth every 6 hours as needed for pain. diclofenac (VOLTAREN) 1 % topical gel Apply to affected area four times daily. mag carb/aluminum hydrox/algin (GAVISCON ORAL) Take 1 tablet by mouth as needed. cetirizine HCl (ZYRTEC ORAL) Take 1 tablet by mouth once daily. ubidecarenone (CO Q-10 ORAL) Take by mouth. SITagliptin phosphate (JANUVIA) 100 mg tablet Take 1 tablet by mouth once daily. Allergies, past surgical history, family history and past medical history were reviewed per this encounter. Medications were reviewed and verified. 09/29/2024 09/30/2024 INTAKE PAIN ASSESSMENT Are you having pain associated with your visit today? No Pain Level 2 Pain Assessment Reassessment If pain assessment is 0, no action needed. If pain assessment is positive, please see assessment and plain. Objective BP 128/82 (BP Site: Left Arm, BP Position: Sitting, BP Cuff Size: Regular Adult) Pulse 88 Temp 36.3 C (97.3 F) (Temporal) Resp 18 Ht 160 cm (5' 3) Wt 88.3 kg (194 lb 9.6 oz) SpO2 98% BMI 34.47 kg/m Physical Exam Vitals reviewed. Constitutional: Appearance: [...] and Affect: Mood normal. Behavior: Behavior normal. Procedures Assessment and Plan Encounter Diagnosis ICD-10-CM 1. Encounter for support and coordination of transition of care Z76.89 2. Acute pyelonephritis N10 Complete course of Cipro. Monitor for resolution of all symptoms 3. Sepsis due to Escherichia coli without acute organ dysfunction ([facility]) A41.51 Improved. 4. Type 2 diabetes mellitus without complication, without long-term current use of insulin (HCC) E11.9 Discontinue Jardiance due to recurrent UTI. Begin Januvia 100 mg daily. Continue other diabetes medicines. 5. Visit for suture removal Z48.02 Single suture removed without complication. Wound healing well. Kali Bacon MD October 02, 2024 10/02/2024 * Spring Shipley LPN - 10/02/2024 12:51 PM EST Patient is in office for suture removal. Patient was also recent in [facility] from 09-25-2024 to 09-29-2024 for Pyelonephritis. In ED, vital signs stable. EKG-normal sinus rhythm. HST . Chest x-ray-no acute abnormalities WCC 15K, K3.2, COVID/influenza/RSV negative.UA suggestive of UTI. Sepsis lactate was 3.9 after which infectious workup was undertaken including blood cultures , received IV fluids and ceftriaxone. Follow-up lactic acid improved to 2.2. 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 E. coli bacteremia-urinary source 2. Urinary tract infection-urine cultures positive for E. Coli Blood and urine cultures from 09/25/2024-positive for E. coli, pansensitive except for ampicillin Patient was recommended to discontinue empagliflozin due to recurrent UTIs which is a relative contraindication for SGLT2 inhibitor. START taking these medications ciprofloxacin HCl 500 mg tablet Commonly known as: CIPRO Take 1 tablet by mouth two times a day for 9 days. hydrOXYzine HCl 25 mg tablet Commonly known as: ATARAX Take 1 tablet by mouth every 12 hours as needed for anxiety. miconazole 2 % vaginal cream Commonly known as: MONISTAT Use 1 Applicator vaginally daily at bedtime for 7 doses. polyethylene glycol 3350 17 gram packet Take 1 Packet by mouth once daily. Dissolve dose in 4 - 8 ounces of liquid and take as directed. Start taking on: September 30, 2024 senna 8.6 mg Tab Commonly known as: SENOKOT Take 1 tablet by mouth two times a day. Patient states she continues to feel tired, but feeling better. Spring Shipley LPN October 02, 2024 1:01 PM documented in this encounterW[facility]02-[facility] NoteHNO ID: [id number] Author: SPRING SHIPLEY LPN Service: ? Author Type: LICENSED NURSE Type: Progress Notes Filed: 10/02/2024 14:48 Note Text: Patient is in office for suture removal. Patient was also recent in [facility] from 09-25-2024 to 09-29-2024 for Pyelonephritis. In ED, vital signs stable. EKG-normal sinus rhythm. HST . Chest x-ray-no acute abnormalities WCC 15K, K3.2, COVID/influenza/RSV negative.UA suggestive of UTI. Sepsis lactate was 3.9 after which infectious workup was undertaken including blood cultures , received IV fluids and ceftriaxone. Follow-up lactic acid improved to 2.2. 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 E. coli bacteremia-urinary source 2. Urinary tract infection-urine cultures positive for E. Coli Blood and urine cultures from 09/25/2024-positive for E. coli, pansensitive except for ampicillin Patient was recommended to discontinue empagliflozin due to recurrent UTIs which is a relative contraindication for SGLT2 inhibitor. START taking these medications ciprofloxacin HCl 500 mg tablet Commonly known as: CIPRO Take 1 tablet by mouth two times a day for 9 days. hydrOXYzine HCl 25 mg tablet Commonly known as: ATARAX Take 1 tablet by mouth every 12 hours as needed for anxiety. miconazole 2 % vaginal cream Commonly known as: MONISTAT Use 1 Applicator vaginally daily at bedtime for 7 doses. polyethylene glycol 3350 17 gram packet Take 1 Packet by mouth once daily. Dissolve dose in 4 - 8 ounces of liquid and take as directed. Start taking on: September 30, 2024 senna 8.6 mg Tab Commonly known as: SENOKOT Take 1 tablet by mouth two times a day. Patient states she continues to feel tired, but feeling better. Spring Shipley LPN October 02, 2024 1:01 [facility]02-17-2025 NoteHNO ID: [id number] Author: LOVELY POLK RN Service: ? Author Type: Registered Nurse Type: Progress Notes Filed: 10/02/2024 12:05 Note Text: Unable to make contact Provider Action/FYI TCM outreach attempt #1. (2 calls made today) LMs Patient identified by name and date of : YES An attempt was made to contact: Patient Was a voicemail left? Yes including my name, role, and return number Outreach Plan: Follow up call needed:Yes [facility]ely Polk [facility] History of Present illness Narrative* Lovely Polk RN - 10/02/2024 12:05 PM EST Unable to make contact Provider Action/FYI TCM outreach attempt #1. (2 calls made today) LMs Patient identified by name and date of : YES An attempt was made to contact: Patient Was a voicemail left? Yes including my name, role, and return number Outreach Plan: Follow up call needed:Yes Lovely Polk RN documented in this encounterWyandot [facility]02-17-2025 NotePatient Outreach ([facility]CAC) JANESSA BARON ([id number]) 1950 F Date Time Provider Department 10/02/24 LOVELY POLK [facility] During your visit today, we recorded the following information about you: Lovely Polk RN 10/02/2024 12:05 PM Signed Unable to make contact Provider Action/FYI TCM outreach attempt #1. (2 calls made today) LMs Patient identified by name and date of : YES An attempt was made to contact: Patient Was a voicemail left? Yes including my name, role, and return number Outreach Plan: Follow up call needed:Yes Lovely Polk RN Allergies As of Date: 10/02/2024 Noted Allergy Reaction METOCLOPRAMIDE 01/31/2017 16 - Unknown SULFAMETHOXAZOLE-TRIMETHOPRIM 04/01/2017 16 - Unknown MORPHINE 07/24/2020 16 - Unknown ACETAMINOPHEN 04/07/2023 16 - Unknown AUGMENTIN (AMOXICILLIN-POT CLAVUL*04/27/2018 2 - Rash CEFZIL (CEFPROZIL) 04/27/2018 2 - Rash DAYQUIL ALLERGY 12-HR 04/27/2018 4 - Hives DEXTROMETHORPHAN 01/31/2017 4 - Hives DOXYLAMINE 01/31/2017 4 - Hives ERYTHROMYCIN 04/27/2018 2 - Rash IODINATED CONTRAST MEDIA 05/22/2019 4 - Hives IVP DYE (IODINE) 04/27/2018 16 - Unknown Comments: knot on head LINCOMYCIN 04/27/2018 2 - Rash PSEUDOEPHEDRINE 01/31/2017 4 - Hives REGLAN (METOCLOPRAMIDE HCL) 04/27/2018 5 - Intolerance CEBAQHS-QOK-LTF REDUCTASE INHIBIT*01/31/2017 16 - Unknown Comments: Other reaction(s): Other TEQUIN (GATIFLOXACIN) 04/27/2018 2 - Rash DOXYCYCLINE 11/28/2018 16 - Unknown 11 - Vomiting Date Reviewed: 09/28/2024 Reviewed by: Migdalia Calzada RN - Fully Assessed Prescriptions as of 10/02/2024 - hydrOXYzine HCl (ATARAX) 25 mg tablet Take 1 tablet by mouth every 12 hours as needed for anxiety. - miconazole (MONISTAT) 2 % vaginal cream Use 1 Applicator vaginally daily at bedtime for 7 doses. - polyethylene glycol 3350 17 gram packet Take 1 Packet by mouth once daily. Dissolve dose in 4 - 8 ounces of liquid and take as directed. - senna (SENOKOT) 8.6 mg tab Take 1 tablet by mouth two times a day. - ciprofloxacin HCl (CIPRO) 500 mg tablet Take 1 tablet by mouth two times a day for 9 days. - predniSONE (DELTASONE) 20 mg tablet Take 3 tablets by mouth once daily. X3d, then 2 po every day x 3d then 1 po every day x 3d, then 1/2 po every day x 4d - benzonatate (TESSALON PERLE) 100 mg capsule Take 1 capsule by mouth three times a day as needed. - glimepiride (AMARYL) 4 mg tablet Take 1 tablet by mouth daily with breakfast. - HYDROcodone-acetaminophen (NORCO) 5-325 mg per tablet Take 1 tablet by mouth every 8 hours as needed for pain. - benzocaine/benzethon Cl (DERMOPLAST ANTIBACTERIAL TOPICAL) Apply to affected area as needed. - lidocaine (SALONPAS) 4 % patch Apply 1 application as directed once daily. - albuterol (PROVENTIL) 2.5 mg /3 mL (0.083 %) nebulizer solution INHALE WITH 1 VIAL IN NEBULIZER EVERY SIX HOURS NEEDED - rosuvastatin (CRESTOR) 10 mg tablet Take 1 tablet by mouth daily at bedtime. - metFORMIN (GLUCOPHAGE) 500 mg tablet Take 2 tablets by mouth two times a day with meals. - blood sugar diagnostic (ONETOUCH ULTRA TEST) test strip Monitor blood sugar daily and as needed. - montelukast (SINGULAIR) 10 mg tablet Take 1 tablet by mouth daily at bedtime. - omeprazole (PRILOSEC) 40 mg capsule Take 1 capsule by mouth two times a day. - pioglitazone (ACTOS) 45 mg tablet Take 1 tablet by mouth once daily. - lisinopril-hydroCHLOROthiazide (ZESTORETIC) 20-12.5 mg per tablet Take 1 tablet by mouth once daily. - ketoconazole (NIZORAL) 2 % cream Apply to affected area once daily for 10 days. - NYSTOP powder APPLY TO THE AFFECTED AREA(S) THREE TIMES DAILY - sucralfate (CARAFATE) 1 gram tablet Take 1 g by mouth three times a day. 1/2 hour before meals - budesonide (PULMICORT) 0.5 mg/2 mL nebulizer solution mix 2 ampules with saline and apply twice daily - gel base no.41, bulk, (HYDROGEL) gel 1 Dose once daily. - lancets (ONE TOUCH DELICA) 33 gauge 1 Each once daily. - blood sugar diagnostic (ONETOUCH ULTRA TEST) test strip 1 Strip before meals and at bedtime. Use as instructed - aspirin, enteric coated (ASPIRIN, ENTERIC COATED) 81 mg EC tablet Take 81 mg by mouth once daily. - lancets (TRUEPLUS LANCETS) 33 gauge Monitor blood sugar daily and as needed. - traMADol (ULTRAM) 50 mg tablet Take 50 mg by mouth every 6 hours as needed for pain. - diclofenac (VOLTAREN) 1 % topical gel Apply to affected area four times daily. - mag carb/aluminum hydrox/algin (GAVISCON ORAL) Take 1 tablet by mouth as needed. - cetirizine HCl (ZYRTEC ORAL) Take 1 tablet by mouth once daily. - ubidecarenone (CO Q-10 ORAL) Take by mouth. Problem List As Of Date 10/02/2024 Noted Resolved Type 2 diabetes mellitus without complication, *05/22/2022 Allergic rhinitis [J30.9] 06/05/2019 Asthma [J45.909] 03/01/2017 Essential (p (more content not included)...[facility]02-14-2025 Note HNO ID: [id number] Author: AMBAR MONAHAN RPh Service: Pharmacy Author Type: Pharmacist Type: Plan of Care Filed: 09/29/2024 14:03 Note Text: DISCHARGE MEDICATION REVIEW BY PHARMACY Patient Name: Janessa Baron Account #: Data Unavailable Admission Date: 09/25/2024 Date of Contact: September 29, 2024 Time of Contact: 2:02 PM Medication list was reviewed by a Pharmacist for drug interactions or drug related problems:Yes Below is a summary of pharmacist recommendations discussed with LIP: No recommendations at this time from discharge medication list. Ambar Monahan RPh Pager: [phone] 09/29/2024 2:02 PM Medication List START taking these medications ciprofloxacin HCl 500 mg tablet Commonly known as: CIPRO Take 1 tablet by mouth two times a day for 9 days. hydrOXYzine HCl 25 mg tablet Commonly known as: ATARAX Take 1 tablet by mouth every 12 hours as needed for anxiety. miconazole 2 % vaginal cream Commonly known as: MONISTAT Use 1 Applicator vaginally daily at bedtime for 7 doses. polyethylene glycol 3350 17 gram packet Take 1 Packet by mouth once daily. Dissolve dose in 4 - 8 ounces of liquid and take as directed. Start taking on: September 30, 2024 senna 8.6 mg Tab Commonly known as: SENOKOT Take 1 tablet by mouth two times a day. CONTINUE taking these medications albuterol 2.5 mg /3 mL (0.083 %) nebulizer solution Commonly known as: PROVENTIL INHALE WITH 1 VIAL IN NEBULIZER EVERY SIX HOURS NEEDED aspirin, enteric coated 81 mg EC tablet Commonly known as: ASPIRIN, ENTERIC COATED benzonatate 100 mg capsule Commonly known as: TESSALON PERLE Take 1 capsule by mouth three times a day as needed. budesonide 0.5 mg/2 mL nebulizer solution Commonly known as: PULMICORT CO Q-10 ORAL DERMOPLAST ANTIBACTERIAL TOPICAL diclofenac 1 % topical gel Commonly known as: VOLTAREN GAVISCON ORAL glimepiride 4 mg tablet Commonly known as: AmaryL Take 1 tablet by mouth daily with breakfast. HYDROcodone-acetaminophen 5-325 mg per tablet Commonly known as: NORCO HYDROGEL Gel Generic drug: gel base no.41 (bulk) 1 Dose once daily. ketoconazole 2 % cream Commonly known as: NIZORAL * lancets 33 gauge Commonly known as: TRUEPLUS LANCETS Monitor blood sugar daily and as needed. * lancets 33 gauge Commonly known as: One Touch Delica 1 Each once daily. lidocaine 4 % patch Commonly known as: SALONPAS lisinopril-hydroCHLOROthiazide 20-12.5 mg per tablet Commonly known as: ZESTORETIC Take 1 tablet by mouth once daily. metFORMIN 500 mg tablet Commonly known as: GLUCOPHAGE Take 2 tablets by mouth two times a day with meals. montelukast 10 mg tablet Commonly known as: SINGULAIR Take 1 tablet by mouth daily at bedtime. NYSTOP powder Generic drug: nystatin omeprazole 40 mg capsule Commonly known as: PriLOSEC Take 1 capsule by mouth two times a day. * ONETOUCH ULTRA TEST test strip Generic drug: blood sugar diagnostic 1 Strip before meals and at bedtime. Use as instructed * blood sugar diagnostic test strip Commonly known as: ONETOUCH ULTRA TEST Monitor blood sugar daily and as needed. pioglitazone 45 mg tablet Commonly known as: ACTOS Take 1 tablet by mouth once daily. predniSONE 20 mg tablet Commonly known as: DELTASONE Take 3 tablets by mouth once daily. X3d, then 2 po every day x 3d then 1 po every day x 3d, then 1/2 po every day x 4d rosuvastatin 10 mg tablet Commonly known as: CRESTOR Take 1 tablet by mouth daily at bedtime. sucralfate 1 gram tablet Commonly known as: CARAFATE traMADol 50 mg tablet Commonly known as: ULTRAM ZYRTEC ORAL * This list has 4 medication(s) that are the same as other medications prescribed for you. Read the directions carefully, and ask your doctor or other care provider to review them with you. STOP taking these medications empagliflozin 10 mg tablet Commonly known as: JARDIANCE Where to Get Your Medications These medications were sent to [id number] [place] [id number] - [address] - [phone] [place] [address] ciprofloxacin HCl 500 mg tablet hydrOXYzine HCl 25 mg tablet miconazole 2 % vaginal cream polyethylene glycol 3350 17 gram packet senna 8.6 [facility] NoteHNO ID: [id number] Author: BROOKE MULLEN RN Service: Care Management Author Type: Registered Nurse Type: Care Mgt Progress Note Filed: 09/29/2024 12:16 Note Text: CARE MANAGEMENT PROGRESS NOTE SERVICE DATE: 09/29/2024 SERVICE TIME: 12:14 PM LOS: 3 days Needs Prior to Discharge: None NO SKILLED NEEDS Spouse to transport home upon discharge. Monitor labs/REJI CM will continue to follow and update transitional plan as needed and appropriate through discharge. Please see Treatment Team for Care Management Weekend/Holiday coverage. Please note: Should any case management needs arise over the weekend/holiday, please contact the weekend/holiday CM. Please note, however, that NEW referrals will likely not be able to verified for insurance nor can precerts be initiated over the weekend/holiday d/t unavailability of insurance review and accepting agencies/facilities. SIGNATURE: Brooke Muleln RN PATIENT NAME: Janessa Baron DATE: September 29, 2024 TIME: 12:14 [facility]02-13-2025 NoteHNO ID: [id number] Author: LUDMILA VELAZQUEZ MD Service: General Internal Medicine Author Type: Physician Type: Progress Notes Filed: 09/28/2024 15:11 Note Text: DEPARTMENT OF HOSPITAL MEDICINE PROGRESS NOTE SERVICE DATE: 09/28/2024 SERVICE TIME: 10:35 am Hospital Medicine/Primary Attending: Ludmila Velazquez MD NIGHT AND WEEKEND COVERAGE: [facility] COVERAGE: Days: [phone], please page Ludmila Velazquez for patient issues. Nights: [phone], please page Team GIM 4: G/H 8th floor: [address]; Non 8th floor [phone] Subjective INTERVAL HPI: Appeared better today. In good spirits. Hydroxyzine helped. Still has some vaginal itching. No diarrhea with antibiotics Current Facility-Administered Medications Medication Dose Route Frequency NaCl 0.9% iv flush bag 20 mL INTRAVENOUS PRN glimepiride 4 mg tab(s) (AMARYL) 4 mg ORAL DAILY WITH BREAKFAST montelukast 10 mg tab(s) (SINGULAIR) 10 mg ORAL AT BEDTIME pantoprazole DR 40 mg tab(s) (PROTONIX) 40 mg ORAL BID AC (0600/1600) rosuvastatin 10 mg tab(s) (CRESTOR) 10 mg ORAL AT BEDTIME aspirin, enteric coated 81 mg tab(s) 81 mg ORAL DAILY lidocaine 4 % 1 Patch (SALONPAS) 1 Patch TRANSDERMAL DAILY dextrose 15 gram/32 mL 15 g (TRUEPLUS) 15 g ORAL PRN Or glucagon 1 mg injection 1 mg INTRAMUSCULAR PRN Or dextrose 10% iv bolus 12.5 g INTRAVENOUS PRN lidocaine patch - REMOVE OTHER DAILY And lidocaine - VERIFY PATCH OTHER q 8 H melatonin 6 mg tab(s) 6 mg ORAL DAILY (8 PM) insulin lispro injection (rapid acting) (HumaLOG) SUBCUTANEOUS w MEALS sodium chloride 0.9 % (flush) 2-10 mL (BD POSIFLUSH) 2-10 mL INTRAVENOUS DIRECTED PRN And perflutren lipid microspheres 1.1 mg/mL 1.3 mL injection (DEFINITY) 1.3 mL INTRAVENOUS DIRECTED PRN oxyCODONE IR 5 mg tab(s) (ROXICODONE) 5 mg ORAL q 4 H PRN cefTRIAXone iv piggyback 2 g in dextrose (iso-osmotic) 50 mL (ROCEPHIN) 2 g INTRAVENOUS q 24 H hydrOXYzine HCl 25 mg tab(s) (ATARAX) 25 mg ORAL q 12 H PRN sodium chloride 0.65 % 2 [place] 2 [place] EACH NOSTRIL PRN NaCl 0.9% iv infusion 100 mL/hr INTRAVENOUS CONTINUOUS senna 8.6 mg tab(s) (SENOKOT) 1 tablet ORAL BID polyethylene glycol 3350 17 g packet 17 g ORAL DAILY Objective PHYSICAL EXAM: BP 148/62 Pulse 88 Temp (Src) 97.7 (Oral) Resp 16 Ht 5' 3 (1.60m) Wt 190 lb 7.6 oz (86.4kg) SpO2 97% BMI 33.75 kg/(m2). O2 Therapy: Room Air General: Appeared anxious, intermittently tearful HEENT:oral cavity moist,no thrush. Heart:Normal S1,S2.No murmur.No JVD Lungs:Good bilateral air entry.No wheezing or crackles. Abdomen:Soft,non-distended and non tender. Extremities:No edema in lower extremities. Lines, Drains, and Airways Line Duration Peripheral 09/25/24 1155 Short Right Forearm 22 Gauge 3 days DATA: Diagnostic tests reviewed for today's visit: Most recent labs Most recent imaging Assessment/Plan Problem List Assessment AND Plan Pyelonephritis Type 2 diabetes mellitus without complication, without long-term current use of insulin (HCC) Essential (primary) hypertension Hypercholesterolemia Hypomagnesemia Paroxysmal atrial fibrillation (HCC) Hypokalemia Gait abnormality Urinary tract infection without hematuria E coli bacteremia REJI (acute kidney injury) (HCC) Chronic midline low back pain HOSPITAL COURSE: Janessa Baron is a 74 year old female h/o chronic low back pain, HTN, CAD s/p CABG x 3 (11/2022), type 2 DM, carotid artery stenosis s/p stent, fibromyalgia . Apparently her had an appointment at the [facility] and she accompanied him in the car. After prolonged waiting in car, when she was getting out of car, felt lightheaded at which point she was helped by her and [facility] staff. Since patient continued to feel unwell, presented to ED. In ED, vital signs stable. EKG-normal sinus rhythm. HST . Chest x-ray-no acute abnormalities WCC 15K, K3.2, COVID/influenza/RSV negative. UA suggestive of UTI. Sepsis lactate was 3.9 after which infectious workup was undertaken including blood cultures after which she received IV fluids and ceftriaxone. Follow-up lactic acid improved to 2.2. 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 1. E. coli bacteremia-urinary source 2. Urinary tract infection-urine cultures positive for E. Coli Blood cultures from 09/25/2024-positive for E. coli, sensitivities pending. Urine culture from 09/25/2024-E. coli, pansensitive except for ampicillin Overall symptoms improved. Continue ceftriaxone. E. coli sensitive to ciprofloxacin. Will plan for total 14 days of antibiotics and Cipro p.o. at discharge Sepsis lactate improved from 3.9 on admission to 1.8 Leukocytosis improving, 15K to 10k . Recommended to discontinue empagliflozin (more content not included)...[facility]02-12-2025 NoteHNO ID: [id number] Author: LUDMILA VELAZQUEZ MD Service: General Internal Medicine Author Type: Physician Type: Progress Notes Filed: 09/27/2024 21:59 Note Text: DEPARTMENT OF HOSPITAL MEDICINE PROGRESS NOTE SERVICE DATE: 09/27/2024 SERVICE TIME: 9:38 PM Hospital Medicine/Primary Attending: Ludmila Velazquez MD NIGHT AND WEEKEND COVERAGE: [facility] COVERAGE: Days: [phone], please page Ludmila Velazquez for patient issues. Nights: [phone], please page Team GIM 4: G/H 8th floor: [address]; Non 8th floor [phone] Subjective INTERVAL HPI: Patient appeared overwhelmed with hospitalization. Appeared very anxious and tearful. Complained of ongoing low back pain which is chronic. Complained of vaginal itching -she thinks it might be due to antibiotics Apparently not feeling well since she was started on empagliflozin Current Facility-Administered Medications Medication Dose Route Frequency NaCl 0.9% iv flush bag 20 mL INTRAVENOUS PRN glimepiride 4 mg tab(s) (AMARYL) 4 mg ORAL DAILY WITH BREAKFAST montelukast 10 mg tab(s) (SINGULAIR) 10 mg ORAL AT BEDTIME pantoprazole DR 40 mg tab(s) (PROTONIX) 40 mg ORAL BID AC (0600/1600) rosuvastatin 10 mg tab(s) (CRESTOR) 10 mg ORAL AT BEDTIME aspirin, enteric coated 81 mg tab(s) 81 mg ORAL DAILY lidocaine 4 % 1 Patch (SALONPAS) 1 Patch TRANSDERMAL DAILY dextrose 15 gram/32 mL 15 g (TRUEPLUS) 15 g ORAL PRN Or glucagon 1 mg injection 1 mg INTRAMUSCULAR PRN Or dextrose 10% iv bolus 12.5 g INTRAVENOUS PRN lidocaine patch - REMOVE OTHER DAILY And lidocaine - VERIFY PATCH OTHER q 8 H melatonin 6 mg tab(s) 6 mg ORAL DAILY (8 PM) insulin lispro injection (rapid acting) (HumaLOG) SUBCUTANEOUS w MEALS sodium chloride 0.9 % (flush) 2-10 mL (BD POSIFLUSH) 2-10 mL INTRAVENOUS DIRECTED PRN And perflutren lipid microspheres 1.1 mg/mL 1.3 mL injection (DEFINITY) 1.3 mL INTRAVENOUS DIRECTED PRN oxyCODONE IR 5 mg tab(s) (ROXICODONE) 5 mg ORAL q 4 H PRN cefTRIAXone iv piggyback 2 g in dextrose (iso-osmotic) 50 mL (ROCEPHIN) 2 g INTRAVENOUS q 24 H NaCl 0.9% iv infusion 100 mL/hr INTRAVENOUS CONTINUOUS hydrOXYzine HCl 25 mg tab(s) (ATARAX) 25 mg ORAL q 12 H PRN Objective PHYSICAL EXAM: BP 147/51 Pulse 87 Temp (Src) 97.9 (Oral) Resp 18 Ht 5' 3 (1.60m) Wt 190 lb 7.6 oz (86.4kg) SpO2 97% BMI 33.75 kg/(m2). O2 Therapy: Room Air General: Appeared anxious, intermittently tearful HEENT:oral cavity moist,no thrush. Heart:Normal S1,S2.No murmur.No JVD Lungs:Good bilateral air entry.No wheezing or crackles. Abdomen:Soft,non-distended and non tender. Extremities:No edema in lower extremities. Lines, Drains, and Airways Line Duration Peripheral Left Forearm 20 Gauge -- days Peripheral 09/25/24 1155 Short Right Forearm 22 Gauge 2 days DATA: Diagnostic tests reviewed for today's visit: Most recent labs Most recent imaging Assessment/Plan Problem List Assessment AND Plan Pyelonephritis Type 2 diabetes mellitus without complication, without long-term current use of insulin (HCC) Essential (primary) hypertension Hypercholesterolemia Hypomagnesemia Paroxysmal atrial fibrillation (HCC) Hypokalemia Gait abnormality HOSPITAL COURSE: Janessa Baron is a 74 year old female h/o chronic low back pain, HTN, CAD s/p CABG x 3 (11/2022), type 2 DM, carotid artery stenosis s/p stent, fibromyalgia . Apparently her had an appointment at the [facility] and she accompanied him in the car. After prolonged waiting in car, when she was getting out of car, felt lightheaded at which point she was helped by her and [facility] staff. Since patient continued to feel unwell, presented to ED. In ED, vital signs stable. EKG-normal sinus rhythm. HST . Chest x-ray-no acute abnormalities WCC 15K, K3.2, COVID/influenza/RSV negative. UA suggestive of UTI. Sepsis lactate was 3.9 after which infectious workup was undertaken including blood cultures after which she received IV fluids and ceftriaxone. Follow-up lactic acid improved to 2.2. 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 1. E. coli bacteremia-urinary source 2. Urinary tract infection-urine cultures positive for E. Coli Blood cultures from 09/25/2024-positive for E. coli, sensitivities pending. Urine culture from 09/25/2024-E. coli, pansensitive except for ampicillin Patient still not feeling well. Continue ceftriaxone. Will switch to oral antibiotics after sensitivities of E. coli in blood culture available. Sepsis lactate improved from 3.9 on admission to 1.8 Leukocytosis improving, 15K to 12k . If patient does not feel well tomorrow, will repeat blood cultures Recommended to discontinue empagliflozin due to recurrent UTIs which i (more content not included)...[facility]02-12-2025 NoteHNO ID: [id number] Author: BROOKE MULLEN RN Service: Care Management Author Type: Registered Nurse Type: Care Mgt Progress Note Filed: 09/27/2024 15:36 Note Text: CARE MANAGEMENT PROGRESS NOTE SERVICE DATE: 09/27/2024 SERVICE TIME: 3:34 PM LOS: 1 day Post-Acute Discharge Planning Patient Goal(s): Be able to go home, General wellness [place] of Choice Explained: Discharge Planning Participant(s): Patient/Family Comments: Anticipated # of Days Until Discharge: 2 Transport at Discharge: Transportation Arrangements: Car Needs Prior to Discharge: Needs Prior to Discharge: To Be Determined, OT/PT Evaluation Post-Acute Discharge Plan: Possible PT/OT evaluation rec. by Geriatrics. 6 click 18-22. IV Atbx if needed at DC will need CoPAT DC needs TBD. Spouse to transport home upon discharge. CM will continue to follow and update transitional plan as needed and appropriate through discharge. SIGNATURE: Brooke Mullen RN PATIENT NAME: Janessa Baron DATE: September 27, 2024 TIME: 3:34 [facility]02-11-2025 NoteHNO ID: [id number] Author: FABIOLA GA MD Service: Hospital Medicine Author Type: Physician Type: Plan of Care Filed: 09/26/2024 14:38 Note Text: Pt seen and evaluated in ED C/O Fatigue Good po intake No fever/chills Abdomen soft ,NT NO urinary symptoms Reviewed past cultures - no MDR Change cefepime to Rocephin Follow BC - GM neg sepsis 2/2 UTI For details refer to HnP done this am Plan of care discussed with: Provider, RN, Patient and Family/Significant Other: at bedside . Between 8AM to 5PM, page [phone] After hours 5PM to 8AM, page [phone] if patient on G80/81 H80/81, page [phone] if on other floor. Fabiola Ga MD Staff Attending Physician [facility]02-11-2025 NoteHNO ID: [id number] Author: LELA JENNINGS RT(R) Service: Radiology Author Type: Technologist Type: Progress Notes Filed: 09/26/2024 07:34 Note Text: Radiology Service Progress Note PATIENT NAME: Janessa Baron DATE OF SERVICE: September 26, 2024 TIME: 7:34 AM PATIENT IDENTITY VERIFICATION COMPLETED USING TWO (2) IDENTIFIERS: Name and Date of confirmed by patient verbally and Name and Date of confirmed by identification band. FALL SCREENING: Has the patient had 2 falls in the last year or 1 fall with injury or currently using an Ambulatory Assistive Device (Walker, Cane, Wheelchair, Crutches, etc.)? Emergency Room Patient: Screened in ED PATIENT GENDER DATA: Assigned female at . status: : No status: NO. PATIENT RELEVANT IMPLANT DATA REVIEWED: Yes PATIENT PRESENTS WITH AN IMPLANTABLE OR ATTACHED PLUMBING MECHANIC: No RADIOLOGY DEPARTMENT: CT; Exam(s) Completed: Spine PERIPHERAL IV DATA: Not applicable SIGNED BY: RT Tammi(R) September 26, 2024 7:34 [facility]02-10-2025 NoteHNO ID: [id number] Author: DALY FIERRO, SARAH Service: Emergency Medicine Author Type: Registered Resp Therapist Type: Progress Notes Filed: 09/25/2024 22:54 Note Text: RESPIRATORY THERAPY PROGRESS NOTE SERVICE DATE: 09/25/2024 SERVICE TIME: 10:21 Patient very hard to talk to. Complaining of pain. She did express that she has asthma and uses albuterol as needed and it has been al long time since used mdi. Patient is able to speak with out shortness of breath. SIGNATURE: Daly Fierro RRT PATIENT NAME: Janessa Baron DATE: September 25, 2024 TIME: 10:21 PM PAGER/CONTACT #: [id number] Note SARS-COV-2 (AGENT OF COVID-19) RNA: Not detected INFLUENZA A RNA: Not detected INFLUENZA B RNA: Not detected RESPIRATORY SYNCYTIAL VIRUS (RSV) RNA: Not detectedPremier Health Atrium Medical CenterComment on above:Performed By: #### [id number] #### [facility] CLIA [id number] [address] [place], [place] [address]K [address]02-10-2025 Telephone encounter Note* Telephone Encounter - Ramos Solis LPN - 09/25/2024 8:41 AM EST Patient notified of result information on My Chart. Notification will be sent to this nurse if message has not been read within 2 days. Patient will be contacted by another form of communication if notification of not reading My Chart message is received. Ramos Solis LPN September 25, 2024 8:41 AM [facility]02-10-2025 Miscellaneous Notes* Telephone Encounter - Ramos Solis LPN - 09/25/2024 8:41 AM EST Patient notified of result information on My Chart. Notification will be sent to this nurse if message has not been read within 2 days. Patient will be contacted by another form of communication if notification of not reading My Chart message is received. Ramos Solis LPN September 25, 2024 8:41 AM * Telephone Encounter - Ramos Solis LPN - 09/25/2024 8:40 AM EST ----- Message from Kali Bacon MD sent at 09/23/2024 6:26 PM EST ----- Biopsy will need repeated. They were unable to process due to ulcerated and necrotic epidermis layer. [facility] Telephone encounter Note * Telephone Encounter - Ramos Solis LPN - 09/25/2024 8:40 AM EST ----- Message from Kali Bacon MD sent at 09/23/2024 6:26 PM EST ----- Biopsy will need repeated. They were unable to process due to ulcerated and necrotic epidermis layer. [facility]02-05-2025 NoteHNO ID: [id number] Author: KALI BACON MD Service: ? Author Type: Physician Type: Progress Notes Filed: 09/20/2024 14:22 Note Text: Subjective Janessa Baron is a 74 year old female. Janessa presents for mole biopsy for suspicious lesion to her left upper back PAST SURGICAL HISTORY Procedure Laterality Date BREAST BIOPSY Bilateral benign BREAST SURGERY HX CHOLECYSTECTOMY COLONOSCOPY 05/2017 COLONOSCOPY SCREENING 2019 EGD 04/2017 EGD DIAGNOSTIC 01/2023 F SALPINGO-OOPHORECTOMY Left IR RT HEART CATH 11/10/2022 PAST SURGICAL HISTORY OF left TM repair PAST SURGICAL HISTORY OF Left 12/1991 Repair of hole in left eardrum PAST SURGICAL HISTORY OF 06/03/1998 Scalp - removal of sebaceaous cyst PAST SURGICAL HISTORY OF 11/26/2022 Triple Bypass PAST SURGICAL HISTORY OF 01/25/2024 Left carotid artery stint REMV CATARACT EXTRACAP,INSERT LENS Left REMV CATARACT EXTRACAP,INSERT LENS Right TUBAL LIGATION PAST MEDICAL HISTORY Diagnosis Date Asthma Carotid stenosis Delayed emergence from general anesthesia deep anesthesia 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) 05/22/2022 Diabetes mellitus, type 2 (HCC) Hyperlipidemia Hypertension Sliding hiatal hernia FAMILY HISTORY Problem Relation Age of Onset Heart Mother Stroke Mother Emphysema Father Heart Father Heart Attack Father Colon Cancer Sister 67 Diabetes Sister Diabetes Sister Heart Sister Thyroid Cancer Brother Social History Tobacco Use Smoking status: Never Smokeless tobacco: Never Vaping Use Vaping status: Never Used Substance Use Topics Alcohol use: Not Currently Drug use: Not Currently ALLERGIES Allergen Reactions Metoclopramide Unknown Sulfamethoxazole-Tr* Unknown Morphine Unknown Acetaminophen Unknown Augmentin [Amoxicil* Rash Cefzil [Cefprozil] Rash Dayquil Allergy 12-* Hives Dextromethorphan Hives Doxylamine Hives Erythromycin Rash Iodinated Contrast * Hives Ivp Dye [Iodine] Unknown knot on head Lincomycin Rash Pseudoephedrine Hives Reglan [Metoclopram* Intolerance Csqhcko-Hhe-Mqo Red* Unknown Other reaction(s): Other Tequin [Gatifloxaci* Rash Doxycycline Unknown, Vomiting MEDICATIONS: glimepiride (AMARYL) 4 mg tablet Take 1 tablet by mouth daily with breakfast. HYDROcodone-acetaminophen (NORCO) 5-325 mg per tablet Take 1 tablet by mouth every 8 hours as needed for pain. benzocaine/benzethon Cl (DERMOPLAST ANTIBACTERIAL TOPICAL) Apply to affected area as needed. lidocaine (SALONPAS) 4 % patch Apply 1 application as directed once daily. empagliflozin (JARDIANCE) 10 mg tablet Take 1 tablet by mouth daily with breakfast. albuterol (PROVENTIL) 2.5 mg /3 mL (0.083 %) nebulizer solution INHALE WITH 1 VIAL IN NEBULIZER EVERY SIX HOURS NEEDED rosuvastatin (CRESTOR) 10 mg tablet Take 1 tablet by mouth daily at bedtime. metFORMIN (GLUCOPHAGE) 500 mg tablet Take 2 tablets by mouth two times a day with meals. blood sugar diagnostic (ArterisTOUCH ULTRA TEST) test strip Monitor blood sugar daily and as needed. montelukast (SINGULAIR) 10 mg tablet Take 1 tablet by mouth daily at bedtime. omeprazole (PRILOSEC) 40 mg capsule Take 1 capsule by mouth two times a day. pioglitazone (ACTOS) 45 mg tablet Take 1 tablet by mouth once daily. lisinopril-hydroCHLOROthiazide (ZESTORETIC) 20-12.5 mg per tablet Take 1 tablet by mouth once daily. ketoconazole (NIZORAL) 2 % cream Apply to affected area once daily for 10 days. NYSTOP powder APPLY TO THE AFFECTED AREA(S) THREE TIMES DAILY sucralfate (CARAFATE) 1 gram tablet Take 1 g by mouth three times a day. 1/2 hour before meals budesonide (PULMICORT) 0.5 mg/2 mL nebulizer solution mix 2 ampules with saline and apply twice daily gel base no.41, bulk, (HYDROGEL) gel 1 Dose once daily. lancets (ONE TOUCH DELICA) 33 gauge 1 Each once daily. blood sugar diagnostic (ONETOUCH ULTRA TEST) test strip 1 Strip before meals and at bedtime. Use as instructed aspirin, enteric coated (ASPIRIN, ENTERIC COATED) 81 mg EC tablet Take 81 mg by mouth once daily. lancets (TRUEPLUS LANCETS) 33 gauge Monitor blood sugar daily and as needed. traMADol (ULTRAM) 50 mg tablet Take 50 mg by mouth every 6 hours as needed for pain. diclofenac (VOLTAREN) 1 % topical gel Apply to affected area four times daily. mag carb/aluminum hydrox/algin (GAVISCON ORAL) Take 1 tablet by mouth as needed. cetirizine HCl (ZYRTEC ORAL) Take 1 tablet by mouth once daily. ubidecarenone (CO Q-10 ORAL) Take by mouth. predniSONE (DELTASONE) 20 mg tablet Take 3 tablets by mouth once daily. X3d, then 2 po every day x 3d then 1 po every day x 3d, then 1/2 po every day x 4d benzonatate (TESSALON PERLE) 100 mg capsule Take 1 capsule by mouth three times a day as needed. Allergies, past surgical history, family history and past medical history were reviewed per this encounter. Medications were reviewed and verified. 09/13/202409/16 (more content not included)...[facility]02-05-2025 History of Present illness Narrative* Kali Bacon MD - 09/20/2024 2:16 PM EST Subjective Janessa Baron is a 74 year old female. Janessa presents for mole biopsy for suspicious lesion to her left upper back PAST SURGICAL HISTORY Procedure Laterality Date BREAST BIOPSY Bilateral benign BREAST SURGERY HX CHOLECYSTECTOMY COLONOSCOPY 05/2017 COLONOSCOPY SCREENING 2019 EGD 04/2017 EGD DIAGNOSTIC 01/2023 F SALPINGO-OOPHORECTOMY Left IR RT HEART CATH 11/10/2022 PAST SURGICAL HISTORY OF left TM repair PAST SURGICAL HISTORY OF Left 12/1991 Repair of hole in left eardrum PAST SURGICAL HISTORY OF 06/03/1998 Scalp - removal of sebaceaous cyst PAST SURGICAL HISTORY OF 11/26/2022 Triple Bypass PAST SURGICAL HISTORY OF 01/25/2024 Left carotid artery stint REMV CATARACT EXTRACAP,INSERT LENS Left REMV CATARACT EXTRACAP,INSERT LENS Right TUBAL LIGATION PAST MEDICAL HISTORY Diagnosis Date Asthma Carotid stenosis Delayed emergence from general anesthesia deep anesthesia 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) 05/22/2022 Diabetes mellitus, type 2 (HCC) Hyperlipidemia Hypertension Sliding hiatal hernia FAMILY HISTORY Problem Relation Age of Onset Heart Mother Stroke Mother Emphysema Father Heart Father Heart Attack Father Colon Cancer Sister 67 Diabetes Sister Diabetes Sister Heart Sister Thyroid Cancer Brother Social History Tobacco Use Smoking status: Never Smokeless tobacco: Never Vaping Use Vaping status: Never Used Substance Use Topics Alcohol use: Not Currently Drug use: Not Currently ALLERGIES Allergen Reactions Metoclopramide Unknown Sulfamethoxazole-Tr* Unknown Morphine Unknown Acetaminophen Unknown Augmentin [Amoxicil* Rash Cefzil [Cefprozil] Rash Dayquil Allergy 12-* Hives Dextromethorphan Hives Doxylamine Hives Erythromycin Rash Iodinated Contrast * Hives Ivp Dye [Iodine] Unknown knot on head Lincomycin Rash Pseudoephedrine Hives Reglan [Metoclopram* Intolerance Jqwpuph-Yhg-Ohj Red* Unknown Other reaction(s): Other Tequin [Gatifloxaci* Rash Doxycycline Unknown, Vomiting MEDICATIONS: glimepiride (AMARYL) 4 mg tablet Take 1 tablet by mouth daily with breakfast. HYDROcodone-acetaminophen (NORCO) 5-325 mg per tablet Take 1 tablet by mouth every 8 hours as needed for pain. benzocaine/benzethon Cl (DERMOPLAST ANTIBACTERIAL TOPICAL) Apply to affected area as needed. lidocaine (SALONPAS) 4 % patch Apply 1 application as directed once daily. empagliflozin (JARDIANCE) 10 mg tablet Take 1 tablet by mouth daily with breakfast. albuterol (PROVENTIL) 2.5 mg /3 mL (0.083 %) nebulizer solution INHALE WITH 1 VIAL IN NEBULIZER EVERY SIX HOURS NEEDED rosuvastatin (CRESTOR) 10 mg tablet Take 1 tablet by mouth daily at bedtime. metFORMIN (GLUCOPHAGE) 500 mg tablet Take 2 tablets by mouth two times a day with meals. blood sugar diagnostic ([employer] ULTRA TEST) test strip Monitor blood sugar daily and as needed. montelukast (SINGULAIR) 10 mg tablet Take 1 tablet by mouth daily at bedtime. omeprazole (PRILOSEC) 40 mg capsule Take 1 capsule by mouth two times a day. pioglitazone (ACTOS) 45 mg tablet Take 1 tablet by mouth once daily. lisinopril-hydroCHLOROthiazide (ZESTORETIC) 20-12.5 mg per tablet Take 1 tablet by mouth once daily. ketoconazole (NIZORAL) 2 % cream Apply to affected area once daily for 10 days. NYSTOP powder APPLY TO THE AFFECTED AREA(S) THREE TIMES DAILY sucralfate (CARAFATE) 1 gram tablet Take 1 g by mouth three times a day. 1/2 hour before meals budesonide (PULMICORT) 0.5 mg/2 mL nebulizer solution mix 2 ampules with saline and apply twice daily gel base no.41, bulk, (HYDROGEL) gel 1 Dose once daily. lancets (ONE TOUCH DELBinfire) 33 gauge 1 Each once daily. blood sugar diagnostic (ArterisTOUCH ULTRA TEST) test strip 1 Strip before meals and at bedtime. Use asinstructed aspirin, enteric coated (ASPIRIN, ENTERIC COATED) 81 mg EC tablet Take 81 mg by mouth once daily. lancets (TRUEPLUS LANCETS) 33 gauge Monitor blood sugar daily and as needed. traMADol (ULTRAM) 50 mg tablet Take 50 mg by mouth every 6 hours as needed for pain. diclofenac (VOLTAREN) 1 % topical gel Apply to affected area four times daily. mag carb/aluminum hydrox/algin (GAVISCON ORAL) Take 1 tablet by mouth as needed. cetirizine HCl (ZYRTEC ORAL) Take 1 tablet by mouth once daily. ubidecarenone (CO Q-10 ORAL) Take by mouth. predniSONE (DELTASONE) 20 mg tablet Take 3 tablets by mouth once daily. X3d, then 2 po every day x 3d then 1 po every day x 3d, then 1/2 po every day x 4d benzonatate (TESSALON PERLE) 100 mg capsule Take 1 capsule by mouth three times a day as needed. Allergies, past surgical history, family history and past medical history were reviewed per this encounter. Medications were reviewed and verified. 09/13/2024 09/16/2024 INTAKE PAIN ASSESSMENT Are you having pain associated with your visit today? No No If pain assessment is 0, no action needed. If pain assessment is positive, please see assessment and plain. Objective BP 126/84 (BP Site: Left Arm, BP Position: Sitting, BP Cuff Size: Regular Adult) Pulse 88 Temp 36.4 C (97.6 F) (Temporal) Resp 18 Ht 157.5 cm (5' 2) Wt 88.9 kg (196 lb) SpO2 97% BMI 35.85 kg/m Physical Exam Skin: Comments: 1.5 x 2.5 scaly pigmented lesion to her left upper back. Assessment and Plan Encounter Diagnosis ICD-10-CM 1. Change in mole D22.9 SURGICAL PATHOLOGY Skin cleansed with Betadine. Local anesthesia achieved with 1% lidocaine with epi. 4 mm punch biopsy was obtained from the lateral portion of the lesion. Wound closed using 1 interrupted suture. The patient tolerated procedure well. There was minimal bleeding. Bandage applied. Wound care explained to the patient. Specimen sent to pathology. Kali Bacon MD September 20, 2024 * Spring Shipley LPN - 09/20/2024 1:01 PM EST Patient is in office for mole excision on left shoulder. No refills needed Spring Shipley LPN September 20, 2024 1:07 PM documented in [facility] NoteHNO ID: [id number] Author: SPRING SHIPLEY LPN Service: ? Author Type: LICENSED NURSE Type: Progress Notes Filed: 09/20/2024 14:22 Note Text: Patient is in office for mole excision on left shoulder. No refills needed Spring Shipley LPN September 20, 2024 1:07 PM[facility] NotePap Smear Specimen AdequacyFebruary 2024 11:59pmComment.Satisfactory for evaluation. Endocervical and/or squamous metaplasticcells (endocervical component)are present.[facility] A#[id number] Pike Medical CenterComment on above: Satisfactory for evaluation. Endocervical and/or squamous metaplasticcells (endocervical component)are present.09-18-2024 NotePap Smear Specimen Adequacy February 2024 12:59amComment.Satisfactory for evaluation. Endocervical and/or squamous metaplasticcells (endocervical component)are present.[facility] A#[id number] County HospitalComment on above:Satisfactory for evaluation. Endocervical and/or squamous metaplasticcells (endocervical component)are present.09-18-2024 NotePap Smear Specimen AdequacyFebr2024 12:59amComment.Satisfactory for evaluation. Endocervical and/or squamous metaplasticcells (endocervical component)are present.[facility] A#[id number] County HospitalComment on above:Satisfactory for evaluation. Endocervical and/or squamous metaplasticcells (endocervical component)are present.09-18-2024 Telephone encounter Note* Telephone Encounter - Spring Shipley LPN - 09/18/2024 2:30 PM EST Last Office Visit: 09-04-2024 Next Scheduled Office Visit: 09-20-2024 Requested Prescriptions Pending Prescriptions Disp Refills glimepiride (AMARYL) 4 mg tablet 90 tablet 3 Sig: Take 1 tablet by mouth daily with breakfast. Spring Shipley LPN September 18, 2024 2:32 PM [facility]02-03-[facility] Miscellaneous Notes* Telephone Encounter - Spring Shipley LPN - 09/18/2024 2:30 PM EST Last Office Visit: 09-04-2024 Next Scheduled Office Visit: 09-20-2024 Requested Prescriptions Pending Prescriptions Disp Refills glimepiride (AMARYL) 4 mg tablet 90 tablet 3 Sig: Take 1 tablet by mouth daily with breakfast. Spring Shipley LPN September 18, 2024 2:32 PM documented in this encounterWyandot [facility]02-01-2025 NoteHNO ID: [id number] Author: DALY FAJARDO MD Service: ? Author Type: Physician Type: Progress Notes Filed: 09/16/2024 09:31 Note Text: Patient presents with: Cough: Chest congestion/burning, stuffy nose, sneezing x 2 days HPI: Feeling sick starting 2 days ago. Initial sore throat has moved to her chest. Positive symptoms: Cough, Nasal Congestion, sneezing, Shortness of breath, Chest tightness, Rhinorrhea, Fatigue, Negative symptoms: Fever, Body Aches, Headache, Nausea, Vomiting, Diarrhea, OTC: Cold Medicine, albuterol nebulizer, MEDICATIONS: Current Outpatient Medications Medication Sig HYDROcodone-acetaminophen (NORCO) 5-325 mg per tablet Take 1 tablet by mouth every 8 hours as needed for pain. benzocaine/benzethon Cl (DERMOPLAST ANTIBACTERIAL TOPICAL) Apply to affected area as needed. lidocaine (SALONPAS) 4 % patch Apply 1 application as directed once daily. empagliflozin (JARDIANCE) 10 mg tablet Take 1 tablet by mouth daily with breakfast. albuterol (PROVENTIL) 2.5 mg /3 mL (0.083 %) nebulizer solution INHALE WITH 1 VIAL IN NEBULIZER EVERY SIX HOURS NEEDED rosuvastatin (CRESTOR) 10 mg tablet Take 1 tablet by mouth daily at bedtime. metFORMIN (GLUCOPHAGE) 500 mg tablet Take 2 tablets by mouth two times a day with meals. blood sugar diagnostic (ArterisTOUCH ULTRA TEST) test strip Monitor blood sugar daily and as needed. glimepiride (AMARYL) 4 mg tablet Take 1 tablet by mouth daily with breakfast. montelukast (SINGULAIR) 10 mg tablet Take 1 tablet by mouth daily at bedtime. omeprazole (PRILOSEC) 40 mg capsule Take 1 capsule by mouth two times a day. pioglitazone (ACTOS) 45 mg tablet Take 1 tablet by mouth once daily. lisinopril-hydroCHLOROthiazide (ZESTORETIC) 20-12.5 mg per tablet Take 1 tablet by mouth once daily. ketoconazole (NIZORAL) 2 % cream Apply to affected area once daily for 10 days. NYSTOP powder APPLY TO THE AFFECTED AREA(S) THREE TIMES DAILY sucralfate (CARAFATE) 1 gram tablet Take 1 g by mouth three times a day. 1/2 hour before meals budesonide (PULMICORT) 0.5 mg/2 mL nebulizer solution mix 2 ampules with saline and apply twice daily gel base no.41, bulk, (HYDROGEL) gel 1 Dose once daily. lancets (ONE TOUCH DELICA) 33 gauge 1 Each once daily. blood sugar diagnostic (ONETOUCH ULTRA TEST) test strip 1 Strip before meals and at bedtime. Use as instructed aspirin, enteric coated (ASPIRIN, ENTERIC COATED) 81 mg EC tablet Take 81 mg by mouth once daily. lancets (TRUEPLUS LANCETS) 33 gauge Monitor blood sugar daily and as needed. traMADol (ULTRAM) 50 mg tablet Take 50 mg by mouth every 6 hours as needed for pain. diclofenac (VOLTAREN) 1 % topical gel Apply to affected area four times daily. mag carb/aluminum hydrox/algin (GAVISCON ORAL) Take 1 tablet by mouth as needed. cetirizine HCl (ZYRTEC ORAL) Take 1 tablet by mouth once daily. ubidecarenone (CO Q-10 ORAL) Take by mouth. No current facility-administered medications for this visit. ALLERGIES: ALLERGIES Allergen Reactions Metoclopramide Unknown Sulfamethoxazole-Tr* Unknown Morphine Unknown Acetaminophen Unknown Augmentin [Amoxicil* Rash Cefzil [Cefprozil] Rash Dayquil Allergy 12-* Hives Dextromethorphan Hives Doxylamine Hives Erythromycin Rash Iodinated Contrast * Hives Ivp Dye [Iodine] Unknown knot on head Lincomycin Rash Pseudoephedrine Hives Reglan [Metoclopram* Intolerance Ovormwo-Qok-Tey Red* Unknown Other reaction(s): Other Tequin [Gatifloxaci* Rash Doxycycline Unknown, Vomiting VITALS: BP 142/66 Pulse 100 Temp 36.7 ?C (98.1 ?F) Resp 21 Wt 89.7 kg (197 lb 12 oz) SpO2 97% BMI 35.93 kg/m? PHYSICAL EXAM: GEN: mildly ill appearing. Accompanied by her HEENT: PERRL, EOMI, conjunctiva clear Ears: RTM without erythema, bulge, or effusion. Left canal occluded by cerumen. Sinuses: non-tender frontal sinus, non-tender maxillary sinuses Throat: moist mucous membranes, no erythema, no exudate Neck: supple, no thyromegaly, no lymphadenopathy HEART: regular rate, regular rhythm, no murmurs LUNGS: clear to auscultation, no wheezes or crackles, no increased WOB Latest Ref Rng 07/27/2024 Hemoglobin A1C 4.3 - 5.6 % 7.2 (H) Latest Ref Rng 07/27/2024 eGFR >=60 mL/min/1.73m? 90 ASSESSMENT/PLAN: 1. URI, acute - ICD9: 465.9, ICD10: J06.9 (primary diagnosis) 2. Asthma with acute exacerbation, unspecified asthma severity, unspecified whether persistent - ICD9: 493.92, ICD10: J45.901 - suspect viral URI exacerbating asthma; differential includes COVID-19. She would like Paxlovid if positive for COVID. Interactions discussed (she would need to hold Crestor and [place]). - Discussed supportive care treatment with home isolation (fever free for 24 hours and improving symptoms), rest, cold medicine, and analgesia. - Red flags to seek further treatment include chest pain, shortness of breath, and lethargy; in the ER if severe. - COVID A (more content not included)...[facility]02-01-2025 History of Present illness Narrative* Daly Fajardo MD - 09/16/2024 9:13 AM EST Patient presents with: Cough: Chest congestion/burning, stuffy nose, sneezing x 2 days HPI: Feeling sick starting 2 days ago. Initial sore throat has moved to her chest. Positive symptoms: Cough, Nasal Congestion, sneezing, Shortness of breath, Chest tightness, Rhinorrhea, Fatigue, Negative symptoms: Fever, Body Aches, Headache, Nausea, Vomiting, Diarrhea, OTC: Cold Medicine, albuterol nebulizer, MEDICATIONS: Current Outpatient Medications Medication Sig HYDROcodone-acetaminophen (NORCO) 5-325 mg per tablet Take 1 tablet by mouth every 8 hours as needed for pain. benzocaine/benzethon Cl (DERMOPLAST ANTIBACTERIAL TOPICAL) Apply to affected area as needed. lidocaine (SALONPAS) 4 % patch Apply 1 application as directed once daily. empagliflozin (JARDIANCE) 10 mg tablet Take 1 tablet by mouth daily with breakfast. albuterol (PROVENTIL) 2.5 mg /3 mL (0.083 %) nebulizer solution INHALE WITH 1 VIAL IN NEBULIZER EVERY SIX HOURS NEEDED rosuvastatin (CRESTOR) 10 mg tablet Take 1 tablet by mouth daily at bedtime. metFORMIN (GLUCOPHAGE) 500 mg tablet Take 2 tablets by mouth two times a day with meals. blood sugar diagnostic (ONETOUCH ULTRA TEST) test strip Monitor blood sugar daily and as needed. glimepiride (AMARYL) 4 mg tablet Take 1 tablet by mouth daily with breakfast. montelukast (SINGULAIR) 10 mg tablet Take 1 tablet by mouth daily at bedtime. omeprazole (PRILOSEC) 40 mg capsule Take 1 capsule by mouth two times a day. pioglitazone (ACTOS) 45 mg tablet Take 1 tablet by mouth once daily. lisinopril-hydroCHLOROthiazide (ZESTORETIC) 20-12.5 mg per tablet Take 1 tablet by mouth once daily. ketoconazole (NIZORAL) 2 % cream Apply to affected area once daily for 10 days. NYSTOP powder APPLY TO THE AFFECTED AREA(S) THREE TIMES DAILY sucralfate (CARAFATE) 1 gram tablet Take 1 g by mouth three times a day. 1/2 hour before meals budesonide (PULMICORT) 0.5 mg/2 mL nebulizer solution mix 2 ampules with saline and apply twice daily gel base no.41, bulk, (HYDROGEL) gel 1 Dose once daily. lancets (ONE TOUCH DELICA) 33 gauge 1 Each once daily. blood sugar diagnostic (ONETOUCH ULTRA TEST) test strip 1 Strip before meals and at bedtime. Use asinstructed aspirin, enteric coated (ASPIRIN, ENTERIC COATED) 81 mg EC tablet Take 81 mg by mouth once daily. lancets (TRUEPLUS LANCETS) 33 gauge Monitor blood sugar daily and as needed. traMADol (ULTRAM) 50 mg tablet Take 50 mg by mouth every 6 hours as needed for pain. diclofenac (VOLTAREN) 1 % topical gel Apply to affected area four times daily. mag carb/aluminum hydrox/algin (GAVISCON ORAL) Take 1 tablet by mouth as needed. cetirizine HCl (ZYRTEC ORAL) Take 1 tablet by mouth once daily. ubidecarenone (CO Q-10 ORAL) Take by mouth. No current facility-administered medications for this visit. ALLERGIES: ALLERGIES Allergen Reactions Metoclopramide Unknown Sulfamethoxazole-Tr* Unknown Morphine Unknown Acetaminophen Unknown Augmentin [Amoxicil* Rash Cefzil [Cefprozil] Rash Dayquil Allergy 12-* Hives Dextromethorphan Hives Doxylamine Hives Erythromycin Rash Iodinated Contrast * Hives Ivp Dye [Iodine] Unknown knot on head Lincomycin Rash Pseudoephedrine Hives Reglan [Metoclopram* Intolerance Vcwtgxd-Svl-Wbx Red* Unknown Other reaction(s): Other Tequin [Gatifloxaci* Rash Doxycycline Unknown, Vomiting VITALS: BP 142/66 Pulse 100 Temp 36.7 C (98.1 F) Resp 21 Wt 89.7 kg (197 lb 12 oz) SpO2 97% BMI35.93 kg/m PHYSICAL EXAM: GEN: mildly ill appearing. Accompanied by her HEENT: PERRL, EOMI, conjunctiva clear Ears: RTM without erythema, bulge, or effusion. Left canal occluded by cerumen. Sinuses: non-tender frontal sinus, non-tender maxillary sinuses Throat: moist mucous membranes, no erythema, no exudate Neck: supple, no thyromegaly, no lymphadenopathy HEART: regular rate, regular rhythm, no murmurs LUNGS: clear to auscultation, no wheezes or crackles, no increased WOB Latest Ref Rng 07/27/2024 Hemoglobin A1C 4.3 - 5.6 % 7.2 (H) Latest Ref Rng 07/27/2024 eGFR >=60 mL/min/1.73m 90 ASSESSMENT/PLAN: 1. URI, acute - ICD9: 465.9, ICD10: J06.9 (primary diagnosis) 2. Asthma with acute exacerbation, unspecified asthma severity, unspecified whether persistent - ICD9: 493.92, ICD10: J45.901 - suspect viral URI exacerbating asthma; differential includes COVID-19. She would like Paxlovid ifpositive for COVID. Interactions discussed (she would need to hold Crestor and [place]). - Discussed supportive care treatment with home isolation (fever free for 24 hours and improving symptoms), rest, cold medicine, and analgesia. - Red flags to seek further treatment include chest pain, shortness of breath, and lethargy; in theER if severe. - COVID & INFLUENZA A/B & RSV PCR, ROUTINE - PREDNISONE 20 MG TABLET -low-dose burst to limit hyperglycemia with diabetes. Daly Fajardo MD documented in this encounterW[facility]01-31-[facility]25 Telephone encounter Note * Telephone Encounter - Vahe Merino - 09/15/2024 2:00 PM EST 11-15-2024 Colon EGD Justice Provider went over all prep instructions and gave patient direct numberto call with questions Vahe Merino [facility]01-31-2025 Miscellaneous Notes* Telephone Encounter - Vahe Merino - 09/15/2024 2:00 PM EST 11-15-2024 Colon EGD Justice Provider went over all prep instructions and gave patient direct numberto call with questions Vahe Merino documented in this encounterWyandot [facility]01-30-2025 NoteHNO ID: [id number] Author: BARBARA HNASEN MA Service: ? Author Type: Html Developer Type: Progress Notes Filed: 09/14/2024 09:46 Note Text: REVIEW OF SYSTEMS: General: The patient NOTES fatigue, denies weight loss, denies weight gain, denies feeling hot, and denies feelings of cold. Eyes: The patient denies glaucoma, NOTES eye injury/surgery, wears glasses or contacts. Ear/Nose/Throat: The patient NOTES allergies, denies hayfever, NOTES ear infections, and denies bloody noses. Cardiovascular: The patient denies chest pain, NOTES heart disease, NOTES high blood pressure,denies cardiac stent, denies prior heart attack, denies irregular heart beat, NOTES high cholesterol, denies poor circulation, denies heart failure, other cardiac issues, NOTES claudication, denies cold feet, denies peripheral arterial stent. Respiratory: The patient denies tuberculosis, denies pneumonia, NOTES frequent cough, denies pulmonary embolism, denies shortness of breath, and denies coughing up blood. Gastrointestinal: The patient denies difficulty swallowing, NOTES acid reflux, denies ulcers, NOTES vomiting, denies jaundice/hepatitis, NOTES gallbladder problems, denies black or tarry stools, NOTES hemorrhoids, denies bleeding from rectum, denies diverticulitis, NOTES constipation, NOTES diarrhea, denies loss of stool control, and denies hernias. Kidney/Bladder: The patient NOTES kidney stones, NOTES urine infections, and denies bloody urine. Skin: The patient denies a history of skin cancer, denies bleeding/changing moles, and NOTES a history of skin rash. Neurologic: The patient denies a history of epilepsy/convulsions, NOTES headaches, denies head/spinal injuries, and denies stroke/TIA. Psychiatric: The patient denies psychiatric medications, NOTES depression, and denies voices, denies substance abuse. Endocrine: The patient denies thyroid disorders, NOTES diabetes, and denies hormonal problems. Hematologic: The patient denies a history of bruising, denies bleeding, and NOTES anemia, denies blood clots. Infections: The patient NOTES a history of measles and mumps, denies rheumatic fever, and denies sexually transmitted diseases. Musculoskeletal: The patient NOTES back pain/injury, NOTES back problems, NOTES sciatica, denies knee/foot trouble, NOTES arthritis, or denies gout. When was patient's last Mammogram screening? [id number] Last Colonoscopy: 04/29/2020 Barbara Hansen [facility]01-30-2025 History of Present illness Narrative* Barbara Hansen MA - 09/14/2024 9:36 AM EST REVIEW OF SYSTEMS: General: The patient NOTES fatigue, denies weight loss, denies weight gain, denies feeling hot, anddenies feelings of cold. Eyes: The patient denies glaucoma, NOTES eye injury/surgery, wears glasses or contacts. Ear/Nose/Throat: The patient NOTES allergies, denies hayfever, NOTES ear infections, and denies bloody noses. Cardiovascular: The patient denies chest pain, NOTES heart disease, NOTES high blood pressure,denies cardiac stent, denies prior heart attack, denies irregular heart beat, NOTES high cholesterol, denies poor circulation, denies heart failure, other cardiac issues, NOTES claudication, denies cold feet, denies peripheral arterial stent. Respiratory: The patient denies tuberculosis, denies pneumonia, NOTES frequent cough, denies pulmonary embolism, denies shortness of breath, and denies coughing up blood. Gastrointestinal: The patient denies difficulty swallowing, NOTES acid reflux, denies ulcers, NOTESvomiting, denies jaundice/hepatitis, NOTES gallbladder problems, denies black or tarry stools, NOTES hemorrhoids, denies bleeding from rectum, denies diverticulitis, NOTES constipation, NOTES diarrhea, denies loss of stool control, and denies hernias. Kidney/Bladder: The patient NOTES kidney stones, NOTES urine infections, and denies bloody urine. Skin: The patient denies a history of skin cancer, denies bleeding/changing moles, and NOTES a history of skin rash. Neurologic: The patient denies a history of epilepsy/convulsions, NOTES headaches, denies head/spinal injuries, and denies stroke/TIA. Psychiatric: The patient denies psychiatric medications, NOTES depression, and denies voices, denies substance abuse. Endocrine: The patient denies thyroid disorders, NOTES diabetes, and denies hormonal problems. Hematologic: The patient denies a history of bruising, denies bleeding, and NOTES anemia, denies blood clots. Infections: The patient NOTES a history of measles and mumps, denies rheumatic fever, and denies sexually transmitted diseases. Musculoskeletal: The patient NOTES back pain/injury, NOTES back problems, NOTES sciatica, denies knee/foot trouble, NOTES arthritis, or denies gout. When was patient's last Mammogram screening? [id number] Last Colonoscopy: 04/29/2020 Barbara Hansen MA * Halie Jin APRN.GLASS FURNACE TENDER - 09/14/2024 9:00 AM EST HISTORY AND PHYSICAL Janessa Baron : 1950 REFERRING PHYSICIAN: Fanny [address] [facility] [address] CHIEF COMPLAINT: Patient presents with: colon consult HPI: Janessa is a 74 year old female referred for endoscopy. Janessa notes chronic MY. Last H&H 08/21/24 9.5 & 31.9. Plts 437. She notes 5 surgeries in the 1.5 year including: triple bypass 11/26/2022, torn meniscus, L carotid surg 01/25/24, cholecystectomy. Was due to have L4/L5 laminectomy but was postponed d/t elevated A1C. Janessa denies abdominal pain.. Jaenssa denies diarrhea. Janessa notes recent history of constipation. -while getting iron infusions. Completed all 5 infusions & not on oral iron -was using fiber for relief Janessa denies a change in bowel habits. Janessa denies melena. Janessa denies bright red blood per rectum. Janessa denies hemorrhoids. Janessa notes family history of colon issues. Colon cancer in sister Janessa notes occasional heartburn. Janessa denies dysphagia. Janessa denies a history of ulcers/ peptic ulcer disease. Medical history is significant for HTN, CAD, PAF, asthma, and T2DM. Follows with [facility]. Last OV 09/06/24. Hx of CABG x 3 in 2022. She also had a left carotid artery stent placed summer. Post-op A.Fib- wore a holter monitor which was turned in on 09/11/24 with noevidence of A Fib. Janessa has undergone prior endoscopy. Last colonoscopy was 04/[address] Edgar at [facility]. Sedation:Fentanyl 100 micrograms IV, Midazolam 5 mg IV Impression: - The entire examined colon is normal. Biopsied. Last EGD was at [place] with Dr. Arredondo 01/2023. Sedation: MAC Impression: - Multiple plaques in the middle third of the esophagus and in the lower third of the esophagus. Brushings performed. - Bilious gastric fluid. - Gastritis. Biopsied. - Normal examined duodenum. Biopsied. FINAL DIAGNOSIS A - ESOPHAGEAL BRUSH: Negative for malignant cells. 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 Current Outpatient Medications Medication Sig HYDROcodone-acetaminophen (NORCO) 5-325 mg per tablet Take 1 tablet by mouth every 8 hours as needed for pain. benzocaine/benzethon Cl (DERMOPLAST ANTIBACTERIAL TOPICAL) Apply to affected area as needed. lidocaine (SALONPAS) 4 % patch Apply 1 application as directed once daily. empagliflozin (JARDIANCE) 10 mg tablet Take 1 tablet by mouth daily with breakfast. albuterol (PROVENTIL) 2.5 mg /3 mL (0.083 %) nebulizer solution INHALE WITH 1 VIAL IN NEBULIZER EVERY SIX HOURS NEEDED rosuvastatin (CRESTOR) 10 mg tablet Take 1 tablet by mouth daily at bedtime. metFORMIN (GLUCOPHAGE) 500 mg tablet Take 2 tablets by mouth two times a day with meals. blood sugar diagnostic (ONETOUCH ULTRA TEST) test strip Monitor blood sugar daily and as needed. glimepiride (AMARYL) 4 mg tablet Take 1 tablet by mouth daily with breakfast. montelukast (SINGULAIR) 10 mg tablet Take 1 tablet by mouth daily at bedtime. omeprazole (PRILOSEC) 40 mg capsule Take 1 capsule by mouth two times a day. pioglitazone (ACTOS) 45 mg tablet Take 1 tablet by mouth once daily. lisinopril-hydroCHLOROthiazide (ZESTORETIC) 20-12.5 mg per tablet Take 1 tablet by mouth once daily. ketoconazole (NIZORAL) 2 % cream Apply to affected area once daily for 10 days. NYSTOP powder APPLY TO THE AFFECTED AREA(S) THREE TIMES DAILY sucralfate (CARAFATE) 1 gram tablet Take 1 g by mouth three times a day. 1/2 hour before meals budesonide (PULMICORT) 0.5 mg/2 mL nebulizer solution mix 2 ampules with saline and apply twice daily gel base no.41, bulk, (HYDROGEL) gel 1 Dose once daily. lancets (ONE TOUCH DELBinfire) 33 gauge 1 Each once daily. blood sugar diagnostic (ONETOUCH ULTRA TEST) test strip 1 Strip before meals and at bedtime. Use asinstructed aspirin, enteric coated (ASPIRIN, ENTERIC COATED) 81 mg EC tablet Take 81 mg by mouth once daily. lancets (TRUEPLUS LANCETS) 33 gauge Monitor blood sugar daily and as needed. traMADol (ULTRAM) 50 mg tablet Take 50 mg by mouth every 6 hours as needed for pain. diclofenac (VOLTAREN) 1 % topical gel Apply to affected area four times daily. mag carb/aluminum hydrox/algin (GAVISCON ORAL) Take 1 tablet by mouth as needed. cetirizine HCl (ZYRTEC ORAL) Take 1 tablet by mouth once daily. ubidecarenone (CO Q-10 ORAL) Take by mouth. peg 3350-Electrolytes (GOLYTELY) 236-22.74-6.74 -5.86 gram suspension Take 4,000 mL by mouth one time only for 1 dose. Refer to printed prep instructions from your provider. No current facility-administered medications for this visit. ALLERGIES: Metoclopramide, Sulfamethoxazole-Trimethoprim, Morphine, Acetaminophen, Augmentin [Amoxicillin-Pot Clavulanate], Cefzil [Cefprozil], Dayquil Allergy 12-Hr, Dextromethorphan, Doxylamine, Erythromycin, Iodinated Contrast Media, Ivp Dye [Iodine], Lincomycin, Pseudoephedrine, Reglan [Metoclop ramide Hcl], Iiryrsr-Wlk-Eqp Reductase Inhibitors, Tequin [Gatifloxacin], and Doxycycline PAST MEDICAL HISTORY Diagnosis Date Asthma Carotid stenosis Delayed emergence from general anesthesia deep anesthesia 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) 05/22/2022 Diabetes mellitus, type 2 (HCC) Hyperlipidemia Hypertension Sliding hiatal hernia PAST SURGICAL HISTORY Procedure Laterality Date BREAST BIOPSY Bilateral benign BREAST SURGERY HX CHOLECYSTECTOMY COLONOSCOPY 05/2017 COLONOSCOPY SCREENING 2019 EGD 04/2017 EGD DIAGNOSTIC 01/2023 F SALPINGO-OOPHORECTOMY Left IR RT HEART CATH 11/10/2022 PAST SURGICAL HISTORY OF left TM repair PAST SURGICAL HISTORY OF Left 12/1991 Repair of hole in left eardrum PAST SURGICAL HISTORY OF 06/03/1998 Scalp - removal of sebaceaous cyst PAST SURGICAL HISTORY OF 11/26/2022 Triple Bypass PAST SURGICAL HISTORY OF 01/25/2024 Left carotid artery stint REMV CATARACT EXTRACAP,INSERT LENS Left REMV CATARACT EXTRACAP,INSERT LENS Right TUBAL LIGATION FAMILY HISTORY Problem Relation Age of Onset Heart Mother Stroke Mother Emphysema Father Heart Father Heart Attack Father Colon Cancer Sister 67 Diabetes Sister Diabetes Sister Heart Sister Thyroid Cancer Brother Social History Tobacco Use Smoking status: Never Smokeless tobacco: Never Vaping Use Vaping status: Never Used Substance Use Topics Alcohol use: Not Currently Drug use: Not Currently REVIEW OF SYMPTOMS: The review of systems data was entered by the nurse and reviewed by me SEE NURSING NOTE PHYSICAL EXAMINATION: General: The patient is 74 year old, female well nourished, well hydrated in no acute distress. Thepatient is oriented to time, place, and person. VITALS: Blood pressure 119/72, pulse 89, weight 88.9 kg (196 lb), SpO2 98%. Body mass index is 35.61 kg/m . HEENT: Normal cephalic, ataumatic, pupils are equally round, sclera are anicteric, mucous membranesare moist, oropharynx is clear. Neck has no masses, asymmetry or lymphadenopathy. Respiratory: Clear to auscultation and percussion. Normal respiratory excursion and pattern. Cardiac: Examination is regular rate and rhythm. Normal S1/S2 Abdominal exam: Soft, nontender, with no palpable masses. No hepatosplenomegaly. No palpable hernias. Extremities: no clubbing, cyanosis or edema. No adenopathy. LABORATORY VALUES: As Noted RADIOLOGIC STUDIES: As Noted Assessment IMPRESSION: MY, family history of colon cancer PLAN: I have reviewed my findings with the surgeon. Will plan for upper and lower endoscopy. We discussed the risks and benefits of the planned endoscopy. I have informed the patient that complications can occur including failure to complete the endoscopy and perforation. Janessa had the opportunity to ask questions concerning the planned endoscopy. My staff has also explained the procedure to the patient in understandable terms and has given the patient printed material concerning the procedure. Janessa freely consents to surgery. I plan to use Golytely bowel preparation Patient instructed to contact PCP for instructions regarding diabetic medication, which may requireadjustment during bowel preparation and/or day of procedure. Instructed to hold Jardiance for 3 days prior to endoscopy. I have explained to the patient the difference between IV conscious sedation and MAC anesthesia - and I have offered either, according to the patient's wishes. I have explained that with IV conscioussedation there is no anesthesia provider available and therefore there is a limitation of the amount of IV medications that can be given and that the patient may wake up in the middle of the procedure and/or experience pain/discomfort during the procedure. Further discussion was done and the patient was given the opportunity to ask questions and all questions were answered. Janessa chooses MAC anesthesia. Janessa was counseled that if there are changes in his/her medical condition, to let the office know if surgery should proceed. If there are changes in patient's medical condition from time of this encounter to the day of the procedure that preclude anesthesia, patient may have procedure cancelled forpatient's safety. Diagnoses: (Z80.0) Family history of colon cancer (primary encounter diagnosis) (D50.9) Iron deficiency anemia, unspecified iron deficiency anemia type Consultation requested by Fanny Barron CNP for an opinion regarding MY. My final recommendationswill be communicated back to the requesting physician by way of shared Medical record or letter to requesting physician via US mail. Portions of this documentation were copied and pasted from previous office visit notes in order to provide a cohesive continuity of the history. The note has been reviewed and edited and updated as necessary. Halie Jin APRN.YULY documented in this encounterW[facility]01-[facility]25 NoteHNO ID: [id number] Author: HALIE JIN APRN.CNP Service: ? Author Type: Nurse Practitioner Type: Progress Notes Filed: 09/14/2024 09:46 Note Text: HISTORY AND PHYSICAL Janessa Baron : 1950 REFERRING PHYSICIAN: Fanny Barron [address] [facility] [address] CHIEF COMPLAINT: Patient presents with: colon consult HPI: Janessa is a 74 year old female referred for endoscopy. Janessa notes chronic MY. Last HANDH 08/21/24 9.5 AND 31.9. Plts 437. She notes 5 surgeries in the 1.5 year including: triple bypass 11/26/2022, torn meniscus, L carotid surg 01/25/24, cholecystectomy. Was due to have L4/L5 laminectomy but was postponed d/t elevated A1C. Janessa denies abdominal pain.. Janessa denies diarrhea. Janessa notes recent history of constipation. -while getting iron infusions. Completed all 5 infusions AND not on oral iron -was using fiber for relief Janessa denies a change in bowel habits. Janessa denies melena. Janessa denies bright red blood per rectum. Jnaessa denies hemorrhoids. Janessa notes family history of colon issues. Colon cancer in sister Janessa notes occasional heartburn. Janessa denies dysphagia. Janessa denies a history of ulcers/ peptic ulcer disease. Medical history is significant for HTN, CAD, PAF, asthma, and T2DM. Follows with [facility]. Last OV 09/06/24. Hx of CABG x 3 in 2022. She also had a left carotid artery stent placed summer. Post-op A.Fib- wore a holter monitor which was turned in on 09/11/24 with no evidence of A Fib. Janessa has undergone prior endoscopy. Last colonoscopy was 04/[address] Edgar at [facility]. Sedation:Fentanyl 100 micrograms IV, Midazolam 5 mg IV Impression: - The entire examined colon is normal. Biopsied. Last EGD was at [place] with Dr. Arredondo 01/2023. Sedation: MAC Impression: - Multiple plaques in the middle third of the esophagus and in the lower third of the esophagus. Brushings performed. - Bilious gastric fluid. - Gastritis. Biopsied. - Normal examined duodenum. Biopsied. FINAL DIAGNOSIS A - ESOPHAGEAL BRUSH: Negative for malignant cells. 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 Current Outpatient Medications Medication Sig HYDROcodone-acetaminophen (NORCO) 5-325 mg per tablet Take 1 tablet by mouth every 8 hours as needed for pain. benzocaine/benzethon Cl (DERMOPLAST ANTIBACTERIAL TOPICAL) Apply to affected area as needed. lidocaine (SALONPAS) 4 % patch Apply 1 application as directed once daily. empagliflozin (JARDIANCE) 10 mg tablet Take 1 tablet by mouth daily with breakfast. albuterol (PROVENTIL) 2.5 mg /3 mL (0.083 %) nebulizer solution INHALE WITH 1 VIAL IN NEBULIZER EVERY SIX HOURS NEEDED rosuvastatin (CRESTOR) 10 mg tablet Take 1 tablet by mouth daily at bedtime. metFORMIN (GLUCOPHAGE) 500 mg tablet Take 2 tablets by mouth two times a day with meals. blood sugar diagnostic ([employer] ULTRA TEST) test strip Monitor blood sugar daily and as needed. glimepiride (AMARYL) 4 mg tablet Take 1 tablet by mouth daily with breakfast. montelukast (SINGULAIR) 10 mg tablet Take 1 tablet by mouth daily at bedtime. omeprazole (PRILOSEC) 40 mg capsule Take 1 capsule by mouth two times a day. pioglitazone (ACTOS) 45 mg tablet Take 1 tablet by mouth once daily. lisinopril-hydroCHLOROthiazide (ZESTORETIC) 20-12.5 mg per tablet Take 1 tablet by mouth once daily. ketoconazole (NIZORAL) 2 % cream Apply to affected area once daily for 10 days. NYSTOP powder APPLY TO THE AFFECTED AREA(S) THREE TIMES DAILY sucralfate (CARAFATE) 1 gram tablet Take 1 g by mouth three times a day. 1/2 hour before meals budesonide (PULMICORT) 0.5 mg/2 mL nebulizer solution mix 2 ampules with saline and apply twice daily gel base no.41, bulk, (HYDROGEL) gel 1 Dose once daily. lancets (ONE TOUCH DELICA) 33 gauge 1 Each once daily. blood sugar diagnostic (ONETOUCH ULTRA TEST) test strip 1 Strip before meals and at bedtime. Use as instructed aspirin, enteric coated (ASPIRIN, ENTERIC COATED) 81 mg EC tablet Take 81 mg by mouth once daily. lancets (TRUEPLUS LANCETS) 33 gauge Monitor blood sugar daily and as needed. traMADol (ULTRAM) 50 mg tablet Take 50 mg by mouth every 6 hours as needed for pain. diclofenac (VOLTAREN) 1 % topical gel Apply to affected area four times daily. mag carb/aluminum hydrox/algin (GAVISCON ORAL) Take 1 tablet by mouth as needed. cetirizine HCl (ZYRTEC ORAL) Take 1 tablet by mouth once daily. ubidecarenone (CO Q-10 ORAL) Take by mouth. peg 3350-Electrolytes (GOLYTELY) 236-22.74-6.74 -5.86 gram suspension Take 4,000 mL by mouth one time only for 1 dose. Refer to printed prep instructions from your provider. No current facility-administered medications for this visit. ALLERGIES: Metoclopramide, Sulfamethoxazole-Trimethoprim, Morphine, Acetaminophen, Augmentin [Amoxicillin-Pot Clavulanate], Cefzil [Cefprozil], Dayquil Allergy 12-Hr, Dextromethorphan, Doxylamine, Erythromycin (more content not included)...[facility]01-29-2025 Telephone encounter Note* Telephone Encounter - Spring Shipley LPN - 09/13/2024 1:58 PM EST Patients phoned office stating that patient has been experiencing a rash all over body. states patient received Iron infusions at the same time she started Jardiance, and that is whenrash began. Unsure if it was Jardiance or Iron causing rash Spring Shipley LPN September 13, 2024 2:06 PM [facility]01-29-[facility] Miscellaneous Notes* Telephone Encounter - Spring Shipley LPN - 09/13/2024 1:58 PM EST Patients phoned office stating that patient has been experiencing a rash all over body. states patient received Iron infusions at the same time she started Jardiance, and that is whenrash began. Unsure if it was Jardiance or Iron causing rash Spring Shipley LPN September 13, 2024 2:06 PM documented in this encounterWyandot [facility]01-24-2025 Telephone encounter Note * Telephone Encounter - Ramos Solis LPN - 09/08/2024 10:08 AM EST Last Office Visit: 09/04/24 Next visit: 09/20/24 [facility]01-24-[facility] Miscellaneous Notes* Telephone Encounter - Ramos Solis LPN - 09/08/2024 10:08 AM EST Last Office Visit: 09/04/24 Next visit: 09/20/24 documented in this encounterWyandot [facility]01-21-2025 History of Present illness Narrative* Rashad Blake, RT(R) - 09/05/2024 2:00 PM EST Radiology Service Progress Note PATIENT NAME: Janessa Baron DATE OF SERVICE: September 05, 2024 TIME: 2:53 PM PATIENT IDENTITY VERIFICATION COMPLETED USING TWO (2) IDENTIFIERS: Name and Date of confirmedby patient verbally. FALL SCREENING: Has the patient had 2 falls in the last year or 1 fall with injury or currently using an Ambulatory Assistive Device (Walker, Cane, Wheelchair, Crutches, etc.)? Yes, Patient High Riskfor Falls What interventions were put in place to prevent falls during this visit? Increased Observations by Caregivers PATIENT GENDER DATA: Assigned female at . status: : No status:NO. PATIENT RELEVANT IMPLANT DATA REVIEWED: Not Applicable PATIENT PRESENTS WITH AN IMPLANTABLE OR ATTACHED PLUMBING MECHANIC: No RADIOLOGY DEPARTMENT: Bone Density PERIPHERAL IV DATA: Not applicable SIGNED BY: RT Yenny(Jami) September 05, 2024 2:53 PM documented in this encounterWyandot [facility]01-21-2025 NoteHNO ID: [id number] Author: RASHAD BLAKE RT(R) Service: ? Author Type: Technologist Type: Progress Notes Filed: 09/05/2024 14:54 Note Text: Radiology Service Progress Note PATIENT NAME: Janessa Baron DATE OF SERVICE: September 05, 2024 TIME: 2:53 PM PATIENT IDENTITY VERIFICATION COMPLETED USING TWO (2) IDENTIFIERS: Name and Date of confirmed by patient verbally. FALL SCREENING: Has the patient had 2 falls in the last year or 1 fall with injury or currently using an Ambulatory Assistive Device (Walker, Cane, Wheelchair, Crutches, etc.)? Yes, Patient High Risk for Falls What interventions were put in place to prevent falls during this visit? Increased Observations by Caregivers PATIENT GENDER DATA: Assigned female at . status: : No status: NO. PATIENT RELEVANT IMPLANT DATA REVIEWED: Not Applicable PATIENT PRESENTS WITH AN IMPLANTABLE OR ATTACHED PLUMBING MECHANIC: No RADIOLOGY DEPARTMENT: Bone Density PERIPHERAL IV DATA: Not applicable SIGNED BY: RT Yenny(Jami) September 05, 2024 2:53 PM[facility] History of Present illness Narrative* Fanny Barron - 09/05/2024 10:30 AM EST Progress Note Janessa Baron 1950 Encounter date: 09/05/2024 HPI: Janessa Baron is a 74 year old female with PMHx of HTN, HLD, a-fib, CAD, asthma, T2DM, spinal stenosis and DDD. Presents today as a referral by her PCP Dr. Bacon for further management of iron deficiency anemia identified on preoperative exam. She reports fatigue today. Feels a bit overwhelmed by everything going on at the moment with appts and drs visits between her and her . Noted 5 surgeries all in 1 year, triple bypass 11/26/2022, torn meniscus, L carotid surg 01/25/24, cholecystectomy. She was started on IV iron, has received 2 doses out of 3 planned. Tolerating well thus fa but has not noticed any improvements in symptoms at this time. Has never received IV iron or blood transfusions in the past that she is aware of. No PO iron use. She is on PPI. Denies current CP, SOB, CP. No unintentional weight loss, appetite is good. Just a lot going on recently. No energy. Denies headaches or dizziness. Denies fevers. Current UTI currently on macrobid, started on Wednesday. Carpal tunnel in L hand. Endorses RLS. No PICA or ice cravings. Denies abd pains. No changes in bowel habits. Denies hematochezia,hematuria. Was supposed to have back surgery next week which was postponed due to elevated A1C. Constant pain every day L4/L5l. Limiting mobility. She is currently working to lower A1C. Due for repeat colonoscopy. Encouraged her to schedule. Sister with colon ca. Denies personal hx od cancers, blood or bleeding disorders. PAST MEDICAL HISTORY Diagnosis Date Asthma Carotid stenosis Delayed emergence from general anesthesia deep anesthesia 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) 05/22/2022 Diabetes mellitus, type 2 (HCC) Hyperlipidemia Hypertension Sliding hiatal hernia PAST SURGICAL HISTORY Procedure Laterality Date BREAST BIOPSY Bilateral benign BREAST SURGERY HX CHOLECYSTECTOMY COLONOSCOPY 05/2017 COLONOSCOPY SCREENING 2019 EGD 04/2017 EGD DIAGNOSTIC 01/2023 F SALPINGO-OOPHORECTOMY Left IR RT HEART CATH 11/10/2022 PAST SURGICAL HISTORY OF left TM repair PAST SURGICAL HISTORY OF Left 12/1991 Repair of hole in left eardrum PAST SURGICAL HISTORY OF 06/03/1998 Scalp - removal of sebaceaous cyst PAST SURGICAL HISTORY OF 11/26/2022 Triple Bypass PAST SURGICAL HISTORY OF 01/25/2024 Left carotid artery stint REMV CATARACT EXTRACAP,INSERT LENS Left REMV CATARACT EXTRACAP,INSERT LENS Right TUBAL LIGATION Current Outpatient Medications Medication Sig Dispense Refill HYDROcodone-acetaminophen (NORCO) 5-325 mg per tablet Take 1 tablet by mouth every 8 hours as needed for pain. benzocaine/benzethon Cl (DERMOPLAST ANTIBACTERIAL TOPICAL) Apply to affected area as needed. lidocaine (SALONPAS) 4 % patch Apply 1 application as directed once daily. empagliflozin (JARDIANCE) 10 mg tablet Take 1 tablet by mouth daily with breakfast. 90 tablet 3 albuterol (PROVENTIL) 2.5 mg /3 mL (0.083 %) nebulizer solution INHALE WITH 1 VIAL IN NEBULIZER EVERY SIX HOURS NEEDED 90 mL 3 rosuvastatin (CRESTOR) 10 mg tablet Take 1 tablet by mouth daily at bedtime. 90 tablet 3 metFORMIN (GLUCOPHAGE) 500 mg tablet Take 2 tablets by mouth two times a day with meals. 360 tablet3 glimepiride (AMARYL) 4 mg tablet Take 1 tablet by mouth daily with breakfast. 90 tablet 3 montelukast (SINGULAIR) 10 mg tablet Take 1 tablet by mouth daily at bedtime. 90 tablet 3 omeprazole (PRILOSEC) 40 mg capsule Take 1 capsule by mouth two times a day. 180 capsule 3 pioglitazone (ACTOS) 45 mg tablet Take 1 tablet by mouth once daily. 90 tablet 3 lisinopril-hydroCHLOROthiazide (ZESTORETIC) 20-12.5 mg per tablet Take 1 tablet by mouth once daily. 90 tablet 3 NYSTOP powder APPLY TO THE AFFECTED AREA(S) THREE TIMES DAILY budesonide (PULMICORT) 0.5 mg/2 mL nebulizer solution mix 2 ampules with saline and apply twice daily aspirin, enteric coated (ASPIRIN, ENTERIC COATED) 81 mg EC tablet Take 81 mg by mouth once daily. traMADol (ULTRAM) 50 mg tablet Take 50 mg by mouth every 6 hours as needed for pain. diclofenac (VOLTAREN) 1 % topical gel Apply to affected area four times daily. mag carb/aluminum hydrox/algin (GAVISCON ORAL) Take 1 tablet by mouth as needed. cetirizine HCl (ZYRTEC ORAL) Take 1 tablet by mouth once daily. nitrofurantoin monohydrate and macrocrystal (MACROBID) 100 mg capsule Take 1 capsule by mouth two times a day for 5 days. (Patient not taking: Reported on 09/05/2024) 10 capsule 0 blood sugar diagnostic ([employer] ULTRA TEST) test strip Monitor blood sugar daily and as needed. 100 Each 3 ketoconazole (NIZORAL) 2 % cream Apply to affected area once daily for 10 days. sucralfate (CARAFATE) 1 gram tablet Take 1 g by mouth three times a day. 1/2 hour before meals gel base no.41, bulk, (HYDROGEL) gel 1 Dose once daily. 100 g 1 lancets (ONE TOUCH DELICA) 33 gauge 1 Each once daily. 100 Each 3 blood sugar diagnostic (ONETOUCH ULTRA TEST) test strip 1 Strip before meals and at bedtime. Use asinstructed 100 Each 3 lancets (TRUEPLUS LANCETS) 33 gauge Monitor blood sugar daily and as needed. 100 Each 3 ubidecarenone (CO Q-10 ORAL) Take by mouth. No current facility-administered medications for this visit. ALLERGIES Allergen Reactions Metoclopramide Unknown Sulfamethoxazole-Tr* Unknown Morphine Unknown Acetaminophen Unknown Augmentin [Amoxicil* Rash Cefzil [Cefprozil] Rash Dayquil Allergy 12-* Hives Dextromethorphan Hives Doxylamine Hives Erythromycin Rash Iodinated Contrast * Hives Ivp Dye [Iodine] Unknown knot on head Lincomycin Rash Pseudoephedrine Hives Reglan [Metoclopram* Intolerance Fzmvquz-Dmm-Ori Red* Unknown Other reaction(s): Other Tequin [Gatifloxaci* Rash Doxycycline Unknown, Vomiting FAMILY HISTORY Problem Relation Age of Onset Heart Mother Stroke Mother Emphysema Father Heart Father Heart Attack Father Colon Cancer Sister 67 Diabetes Sister Diabetes Sister Heart Sister Thyroid Cancer Brother Social History Tobacco Use Smoking status: Never Smokeless tobacco: Never Vaping Use Vaping status: Never Used Substance Use Topics Alcohol use: Not Currently Drug use: Not Currently Review of Systems: Negative except as noted in HPI reviewed 09/05/2024 Physical Exam: BP 159/75 Pulse 92 Temp (Src) 98.7 (Temporal) Ht 5' 2.205 (1.58m) Wt 202 lb 8 oz (91.9kg) SpO2 99% BMI 36.79 kg/(m^2). General: Age-appropriate well developed. Appears well. HEENT: Normocephalic, no sclera icterus, external ears normal, oral cavity clear. Neck: Supple, no JVD. Chest: Clear bilaterally, no wheezes, not labored. Heart: Normal S1 and S2, no abnormal sounds Abdomen: Soft, nontender, nondistended, bowel sounds present Extremities: No cyanosis, clubbing, gross deformities Neurological: Cranial nerves II through XII are intact bilaterally, no focal deficits. Skin: Warm and dry with no rashes or ulcerations. Nodes: No palpable adenopathy in the cervical, supraclavicular, infraclavicular regions. Hematologic: no bruising or petechiae. Psychiatric: Alert and oriented x3. Lab Results Component Value Date WBC 11.16 (H) 08/21/2024 HB 9.5 (L) 08/21/2024 MCV 71.0 (L) 08/21/2024 PLT 437 (H) 08/21/2024 Lab Results Component Value Date NA 137 07/27/2024 K 4.1 07/27/2024 CO2 26 07/27/2024 BUN 21 07/27/2024 CREAT 0.72 07/27/2024 TBILI 0.2 07/27/2024 TPROT 7.5 07/27/2024 ALB 4.1 07/27/2024 ALKPHOS 79 07/27/2024 ALT 10 07/27/2024 AST 16 07/27/2024 Latest Reference Range & Units 08/21/24 17:13 Ferritin 8.0 - 307.0 ng/mL 4.9 (L) Iron 50 - 170 ug/dL 14 (L) TIBC 221 - 481 ug/dL 433 Transferrin Saturation 22.0 - 44.0 % 3.2 (L) (L): Data is abnormally low Assessment and Plan: Ms. Baron is a pleasant 74 year old woman presents as a new consult for iron deficiency anemia. Anemia, microcytic - iron deficiency - incidental finding on recent preoperative work up, Hgb 9.5, ferritin 4.9 - we discussed most common causes and treatments for iron deficiency anemia in detail today with patient and spouse. - currently receiving IV iron sucrose 200 mg x5, for which we discussed I am in agreement with due to how low her iron studies were at the time. PO iron would not adequately replace iron stores and she is unlikely to absorb as effectively due to PPI -suspect that she may have been iron deficient for some time. Mild anemia, low MCV demonstrated on labs from 07/2023. - pt notes several surgeries in 1 year. - thrombocytosis is likely reactive to MY - Recommend further GI workup with scope for completeness, she notes she is due for repeat scope has been waiting to schedule. - plan to continue with remaining IV iron doses, tolerating well - will repeat labs about 8 weeks following IV iron administration. - will check additional labs at this time. OV in about 8 - 12 weeks. Fanny Barron APRN.[employer]ENDER I spent a total of 60 minutes on the date of the service which included preparing to see the patient, [id number] patient care, completing clinical documentation, obtaining and/or reviewing separately obtained history, performing a medically appropriate examination, and ordering medications, tests, or procedures. Portions of this note including HPI, ROS, impression/plan may have been copied forward as to provide important historical information essential in contributing to medical decision making. Documentation has been reviewed and edited as necessary to support clinical decision making for today's visit and to reflect my own independent evaluation of this patient. [facility] NoteHNO ID: [id number] Author: FANNY BARRON, ? Service: ? Author Type: Nurse Practitioner Type: Progress Notes Filed: 09/06/2024 13:37 Note Text: Progress Note Janessa Baron 1950 Encounter date: 09/05/2024 HPI: Janessa Baron is a 74 year old female with PMHx of HTN, HLD, a-fib, CAD, asthma, T2DM, spinal stenosis and DDD. Presents today as a referral by her PCP Dr. Bacon for further management of iron deficiency anemia identified on preoperative exam. She reports fatigue today. Feels a bit overwhelmed by everything going on at the moment with appts and drs visits between her and her . Noted 5 surgeries all in 1 year, triple bypass 11/26/2022, torn meniscus, L carotid surg 01/25/24, cholecystectomy. She was started on IV iron, has received 2 doses out of 3 planned. Tolerating well thus fa but has not noticed any improvements in symptoms at this time. Has never received IV iron or blood transfusions in the past that she is aware of. No PO iron use. She is on PPI. Denies current CP, SOB, CP. No unintentional weight loss, appetite is good. Just a lot going on recently. No energy. Denies headaches or dizziness. Denies fevers. Current UTI currently on macrobid, started on Wednesday. Carpal tunnel in L hand. Endorses RLS. No PICA or ice cravings. Denies abd pains. No changes in bowel habits. Denies hematochezia, hematuria. Was supposed to have back surgery next week which was postponed due to elevated A1C. Constant pain every day L4/L5l. Limiting mobility. She is currently working to lower A1C. Due for repeat colonoscopy. Encouraged her to schedule. Sister with colon ca. Denies personal hx od cancers, blood or bleeding disorders. PAST MEDICAL HISTORY Diagnosis Date Asthma Carotid stenosis Delayed emergence from general anesthesia deep anesthesia 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) 05/22/2022 Diabetes mellitus, type 2 (HCC) Hyperlipidemia Hypertension Sliding hiatal hernia PAST SURGICAL HISTORY Procedure Laterality Date BREAST BIOPSY Bilateral benign BREAST SURGERY HX CHOLECYSTECTOMY COLONOSCOPY 05/2017 COLONOSCOPY SCREENING 2019 EGD 04/2017 EGD DIAGNOSTIC 01/2023 F SALPINGO-OOPHORECTOMY Left IR RT HEART CATH 11/10/2022 PAST SURGICAL HISTORY OF left TM repair PAST SURGICAL HISTORY OF Left 12/1991 Repair of hole in left eardrum PAST SURGICAL HISTORY OF 06/03/1998 Scalp - removal of sebaceaous cyst PAST SURGICAL HISTORY OF 11/26/2022 Triple Bypass PAST SURGICAL HISTORY OF 01/25/2024 Left carotid artery stint REMV CATARACT EXTRACAP,INSERT LENS Left REMV CATARACT EXTRACAP,INSERT LENS Right TUBAL LIGATION Current Outpatient Medications Medication Sig Dispense Refill HYDROcodone-acetaminophen (NORCO) 5-325 mg per tablet Take 1 tablet by mouth every 8 hours as needed for pain. benzocaine/benzethon Cl (DERMOPLAST ANTIBACTERIAL TOPICAL) Apply to affected area as needed. lidocaine (SALONPAS) 4 % patch Apply 1 application as directed once daily. empagliflozin (JARDIANCE) 10 mg tablet Take 1 tablet by mouth daily with breakfast. 90 tablet 3 albuterol (PROVENTIL) 2.5 mg /3 mL (0.083 %) nebulizer solution INHALE WITH 1 VIAL IN NEBULIZER EVERY SIX HOURS NEEDED 90 mL 3 rosuvastatin (CRESTOR) 10 mg tablet Take 1 tablet by mouth daily at bedtime. 90 tablet 3 metFORMIN (GLUCOPHAGE) 500 mg tablet Take 2 tablets by mouth two times a day with meals. 360 tablet 3 glimepiride (AMARYL) 4 mg tablet Take 1 tablet by mouth daily with breakfast. 90 tablet 3 montelukast (SINGULAIR) 10 mg tablet Take 1 tablet by mouth daily at bedtime. 90 tablet 3 omeprazole (PRILOSEC) 40 mg capsule Take 1 capsule by mouth two times a day. 180 capsule 3 pioglitazone (ACTOS) 45 mg tablet Take 1 tablet by mouth once daily. 90 tablet 3 lisinopril-hydroCHLOROthiazide (ZESTORETIC) 20-12.5 mg per tablet Take 1 tablet by mouth once daily. 90 tablet 3 NYSTOP powder APPLY TO THE AFFECTED AREA(S) THREE TIMES DAILY budesonide (PULMICORT) 0.5 mg/2 mL nebulizer solution mix 2 ampules with saline and apply twice daily aspirin, enteric coated (ASPIRIN, ENTERIC COATED) 81 mg EC tablet Take 81 mg by mouth once daily. traMADol (ULTRAM) 50 mg tablet Take 50 mg by mouth every 6 hours as needed for pain. diclofenac (VOLTAREN) 1 % topical gel Apply to affected area four times daily. mag carb/aluminum hydrox/algin (GAVISCON ORAL) Take 1 tablet by mouth as needed. cetirizine HCl (ZYRTEC ORAL) Take 1 tablet by mouth once daily. nitrofurantoin monohydrate and macrocrystal (MACROBID) 100 mg capsule Take 1 capsule by mouth two times a day for 5 days. (Patient not taking: Reported on 09/05/2024) 10 capsule 0 blood sugar diagnostic (ONETOUCH ULTRA TEST) test strip Monitor blood sugar daily and as needed. 100 Each 3 ketoconazole (NIZORAL) 2 % cream Apply to affected area once daily for 10 days. sucralfate (CARAFATE) 1 gram tablet Take 1 g by mouth three (more content not included)...[facility]01-20-2025 History of Present illness Narrative* Spring Shipley LPN - 09/04/2024 3:10 PM EST Images from the original note were not included. Patient is in office for follow up to recent A1C results Latest Ref Rng & Units 07/27/2024 07/22/2023 01/25/2023 12/17/2021 Hemoglobin A1C Hemoglobin A1C 4.3 - 5.6 % 7.2 6.7 7.3 6.9 This result is from an external source. Patient is also currently on Macrobid for a UTI. No refills needed. Spring Shipley LPN September 04, 2024 1:57 PM * Kali Bacon MD - 09/04/2024 2:31 PM EST Subjective Janessa Baron is a 74 year old female. Janessa presents today for follow-up for her diabetes. Her mostrecent A1c obtained 07 17 was 7.2. However she states in her surgeon's office her A1c was 7.7. He has refused to do surgery until her A1c is at 7. She reports her diabetic diet has been poor recently.Additionally she complains of suspicious mole to her left shoulder. Review of Systems Constitutional: Negative. HENT: Negative. [...] Never Smokeless tobacco: Never Vaping Use Vaping status: Never Used Substance Use Topics Alcohol use: Not Currently Drug use: Not Currently ALLERGIES Allergen Reactions Metoclopramide Unknown Sulfamethoxazole-Tr* Unknown Morphine Unknown Acetaminophen Unknown Augmentin [Amoxicil* Rash Cefzil [Cefprozil] Rash Dayquil Allergy 12-* Hives Dextromethorphan Hives Doxylamine Hives Erythromycin Rash Iodinated Contrast * Hives Ivp Dye [Iodine] Unknown knot on head Lincomycin Rash Pseudoephedrine Hives Reglan [Metoclopram* Intolerance Micpgqk-Ylq-Ohx Red* Unknown Other reaction(s): Other Tequin [Gatifloxaci* Rash Doxycycline Unknown, Vomiting MEDICATIONS: nitrofurantoin monohydrate and macrocrystal (MACROBID) 100 mg capsule Take 1 capsule by mouth two times a day for 5 days. albuterol (PROVENTIL) 2.5 mg /3 mL (0.083 %) nebulizer solution INHALE WITH 1 VIAL IN NEBULIZER EVERY SIX HOURS NEEDED rosuvastatin (CRESTOR) 10 mg tablet Take 1 tablet by mouth daily at bedtime. metFORMIN (GLUCOPHAGE) 500 mg tablet Take 2 tablets by mouth two times a day with meals. blood sugar diagnostic (ONETOUCH ULTRA TEST) test strip Monitor blood sugar daily and as needed. glimepiride (AMARYL) 4 mg tablet Take 1 tablet by mouth daily with breakfast. montelukast (SINGULAIR) 10 mg tablet Take 1 tablet by mouth daily at bedtime. omeprazole (PRILOSEC) 40 mg capsule Take 1 capsule by mouth two times a day. pioglitazone (ACTOS) 45 mg tablet Take 1 tablet by mouth once daily. lisinopril-hydroCHLOROthiazide (ZESTORETIC) 20-12.5 mg per tablet Take 1 tablet by mouth once daily. ketoconazole (NIZORAL) 2 % cream Apply to affected area once daily for 10 days. NYSTOP powder APPLY TO THE AFFECTED AREA(S) THREE TIMES DAILY sucralfate (CARAFATE) 1 gram tablet Take 1 g by mouth three times a day. 1/2 hour before meals budesonide (PULMICORT) 0.5 mg/2 mL nebulizer solution mix 2 ampules with saline and apply twice daily gel base no.41, bulk, (HYDROGEL) gel 1 Dose once daily. lancets (ONE TOUCH DELICA) 33 gauge 1 Each once daily. blood sugar diagnostic (ONETOUCH ULTRA TEST) test strip 1 Strip before meals and at bedtime. Use asinstructed aspirin, enteric coated (ASPIRIN, ENTERIC COATED) 81 mg EC tablet Take 81 mg by mouth once daily. lancets (TRUEPLUS LANCETS) 33 gauge Monitor blood sugar daily and as needed. traMADol (ULTRAM) 50 mg tablet Take 50 mg by mouth every 6 hours as needed for pain. diclofenac (VOLTAREN) 1 % topical gel Apply to affected area four times daily. mag carb/aluminum hydrox/algin (GAVISCON ORAL) Take by mouth. cetirizine HCl (ZYRTEC ORAL) Take by mouth. ubidecarenone (CO Q-10 ORAL) Take by mouth. empagliflozin (JARDIANCE) 10 mg tablet Take 1 tablet by mouth daily with breakfast. Allergies, past surgical history, family history and past medical history were reviewed per this encounter. Medications were reviewed and verified. 09/03/2024 09/03/2024 INTAKE PAIN ASSESSMENT Are you having pain associated with your visit today? Yes, Provider notified No If pain assessment is 0, no action needed. If pain assessment is positive, please see assessment and plain. Objective BP 128/80 (BP Site: Left Arm, BP Position: Sitting, BP Cuff Size: Regular Adult) Pulse 98 Temp 36.1 C (96.9 F) (Temporal) Resp 18 Ht 160 cm (5' 3) Wt 90.7 kg (200 lb) SpO2 95% BMI 35.43 kg/m Physical Exam Vitals reviewed. Constitutional: Appearance: [...] and Affect: Mood normal. Behavior: Behavior normal. Procedures Assessment and Plan Encounter Diagnosis ICD-10-CM 1. 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) E11.9 HEMOGLOBIN A1C Jardiance. Continue present medications otherwise. Check A1c in 3 months 2. Change in mole D22.9 Schedule biopsy Kali Bacon MD September 04, 2024 09/04/2024 [facility] NoteHNO ID: [id number] Author: SPRING SHIPLEY LPN Service: ? Author Type: LICENSED NURSE Type: Progress Notes Filed: 09/04/2024 14:34 Note Text: Patient is in office for follow up to recent A1C results Latest Ref Rng AND Units 07/27/2024 07/22/2023 01/25/2023 12/17/2021 Hemoglobin A1C Hemoglobin A1C 4.3 - 5.6 % 7.2 6.7 7.3 6.9 This result is from an external source. Patient is also currently on Macrobid for a UTI. No refills needed. Springariane Shipley LPN September 04, 2024 1:57 [facility]01-20-2025 NoteHNO ID: [id number] Author: KALI BACON MD Service: ? Author Type: Physician Type: Progress Notes Filed: 09/04/2024 14:34 Note Text: Subjective Janessa Baron is a 74 year old female. Janessa presents today for follow-up for her diabetes. Her most recent A1c obtained 07 17 was 7.2. However she states in her surgeon's office her A1c was 7.7. He has refused to do surgery until her A1c is at 7. She reports her diabetic diet has been poor recently. Additionally she complains of suspicious mole to her left shoulder. Review of Systems Constitutional: Negative. HENT: Negative. [...] Never Smokeless tobacco: Never Vaping Use Vaping status: Never Used Substance Use Topics Alcohol use: Not Currently Drug use: Not Currently ALLERGIES Allergen Reactions Metoclopramide Unknown Sulfamethoxazole-Tr* Unknown Morphine Unknown Acetaminophen Unknown Augmentin [Amoxicil* Rash Cefzil [Cefprozil] Rash Dayquil Allergy 12-* Hives Dextromethorphan Hives Doxylamine Hives Erythromycin Rash Iodinated Contrast * Hives Ivp Dye [Iodine] Unknown knot on head Lincomycin Rash Pseudoephedrine Hives Reglan [Metoclopram* Intolerance Zcdivqb-Nhm-Hvn Red* Unknown Other reaction(s): Other Tequin [Gatifloxaci* Rash Doxycycline Unknown, Vomiting MEDICATIONS: nitrofurantoin monohydrate and macrocrystal (MACROBID) 100 mg capsule Take 1 capsule by mouth two times a day for 5 days. albuterol (PROVENTIL) 2.5 mg /3 mL (0.083 %) nebulizer solution INHALE WITH 1 VIAL IN NEBULIZER EVERY SIX HOURS NEEDED rosuvastatin (CRESTOR) 10 mg tablet Take 1 tablet by mouth daily at bedtime. metFORMIN (GLUCOPHAGE) 500 mg tablet Take 2 tablets by mouth two times a day with meals. blood sugar diagnostic ([employer]isT[employer]CH ULTRA TEST) test strip Monitor blood sugar daily and as needed. glimepiride (AMARYL) 4 mg tablet Take 1 tablet by mouth daily with breakfast. montelukast (SINGULAIR) 10 mg tablet Take 1 tablet by mouth daily at bedtime. omeprazole (PRILOSEC) 40 mg capsule Take 1 capsule by mouth two times a day. pioglitazone (ACTOS) 45 mg tablet Take 1 tablet by mouth once daily. lisinopril-hydroCHLOROthiazide (ZESTORETIC) 20-12.5 mg per tablet Take 1 tablet by mouth once daily. ketoconazole (NIZORAL) 2 % cream Apply to affected area once daily for 10 days. NYSTOP powder APPLY TO THE AFFECTED AREA(S) THREE TIMES DAILY sucralfate (CARAFATE) 1 gram tablet Take 1 g by mouth three times a day. 1/2 hour before meals budesonide (PULMICORT) 0.5 mg/2 mL nebulizer solution mix 2 ampules with saline and apply twice daily gel base no.41, bulk, (HYDROGEL) gel 1 Dose once daily. lancets (ONE TOUCH DELBinfire) 33 gauge 1 Each once daily. blood sugar diagnostic ([employer]terisTOUCH ULTRA TEST) test strip 1 Strip before meals and at bedtime. Use as instructed aspirin, enteric coated (ASPIRIN, ENTERIC COATED) 81 mg EC tablet Take 81 mg by mouth once daily. lancets (TRUEPLUS LANCETS) 33 gauge Monitor blood sugar daily and as needed. traMADol (ULTRAM) 50 mg tablet Take 50 mg by mouth every 6 hours as needed for pain. diclofenac (VOLTAREN) 1 % topical gel Apply to affected area four times daily. mag carb/aluminum hydrox/algin (GAVISCON ORAL) Take by mouth. cetirizine HCl (ZYRTEC ORAL) Take by mouth. ubidecarenone (CO Q-10 ORAL) Take by mouth. empagliflozin (JARDIANCE) 10 mg tablet Take 1 tablet by mouth daily with breakfast. Allergies, past surgical history, family history and past medical history were reviewed per this encounter. Medications were reviewed and verified. 09/03/2024 09/03/2024 INTAKE PAIN ASSESSMENT Are you having pain associated with your visit today? Yes, Provider notified No If pain assessment is 0, no action needed. If pain assessment is positive, please see assessment and plain. Objective BP 128/80 (BP Site: Left Arm, BP Position: Sitting, BP Cuff Size: Regula (more content not included)...[facility]01-19-2025 NoteHNO ID: [id number] Author: MIKE CHANEL PA Service: ? Author Type: Physician Mobile Electronics Installer Type: Progress Notes Filed: 09/03/2024 08:36 Note Text: This note was created using [employer]. Subjective Janessa Baron is a 74 year old female. HPI 74-year-old female presents for UTI symptoms. Patient states she has been having burning with urination, pressure and frequency since yesterday. She denies any abdominal pain, back pain, vomiting or fevers. She has had UTIs in the past, none recently. She denies any blood in the urine. No history of kidney stones. No other complaint. PAST MEDICAL HISTORY Diagnosis Date Asthma Carotid [...] Dye [Iodine], Lincomycin, Pseudoephedrine, Reglan [Metoclopramide Hcl], Nutdcjz-Zdo-Aua Reductase Inhibitors, Tequin [Gatifloxacin], and Doxycycline MEDICATIONS albuterol (PROVENTIL) 2.5 mg /3 mL (0.083 %) nebulizer solution INHALE WITH 1 VIAL IN NEBULIZER EVERY SIX HOURS NEEDED rosuvastatin (CRESTOR) 10 mg tablet Take 1 tablet by mouth daily at bedtime. metFORMIN (GLUCOPHAGE) 500 mg tablet Take 2 tablets by mouth two times a day with meals. blood sugar diagnostic (ArterisTOUCH ULTRA TEST) test strip Monitor blood sugar daily and as needed. glimepiride (AMARYL) 4 mg tablet Take 1 tablet by mouth daily with breakfast. montelukast (SINGULAIR) 10 mg tablet Take 1 tablet by mouth daily at bedtime. omeprazole (PRILOSEC) 40 mg capsule Take 1 capsule by mouth two times a day. pioglitazone (ACTOS) 45 mg tablet Take 1 tablet by mouth once daily. lisinopril-hydroCHLOROthiazide (ZESTORETIC) 20-12.5 mg per tablet Take 1 tablet by mouth once daily. ketoconazole (NIZORAL) 2 % cream Apply to affected area once daily for 10 days. NYSTOP powder APPLY TO THE AFFECTED AREA(S) THREE TIMES DAILY sucralfate (CARAFATE) 1 gram tablet Take 1 g by mouth three times a day. 1/2 hour before meals budesonide (PULMICORT) 0.5 mg/2 mL nebulizer solution mix 2 ampules with saline and apply twice daily gel base no.41, bulk, (HYDROGEL) gel 1 Dose once daily. lancets (ONE TOUCH DELICA) 33 gauge 1 Each once daily. blood sugar diagnostic (ArterisTOUCH ULTRA TEST) test strip 1 Strip before meals and at bedtime. Use as instructed aspirin, enteric coated (ASPIRIN, ENTERIC COATED) 81 mg EC tablet Take 81 mg by mouth once daily. lancets (TRUEPLUS LANCETS) 33 gauge Monitor blood sugar daily and as needed. traMADol (ULTRAM) 50 mg tablet Take 50 mg by mouth every 6 hours as needed for pain. diclofenac (VOLTAREN) 1 % topical gel Apply to affected area four times daily. mag carb/aluminum hydrox/algin (GAVISCON ORAL) Take by mouth. cetirizine HCl (ZYRTEC ORAL) Take by mouth. ubidecarenone (CO Q-10 ORAL) Take by mouth. FAMILY HISTORY Problem Relation Age of Onset Colon Cancer Sister 67 Thyroid Cancer Brother Cancer Sister vaginal Social History Tobacco Use Smoking status: Never Smokeless tobacco: Never Vaping Use Vaping status: Never Used Substance Use Topics Alcohol use: Not Currently Drug use: Not Currently Review of Systems Constitutional: Negative for chills and fever. HENT: Negative for congestion, ear pain and sore throat. Respiratory: Negative for cough and shortness of breath. Cardiovascular: Negative for chest pain. Gastrointestinal: Negative for diarrhea and vomiting. Genitourinary: Positive for dysuria, frequency and urgency. Objective BP 153/69 Pulse 94 Temp 36.9 ?C (98.4 ?F) Resp 20 Wt 91 kg (200 lb 9.9 oz) SpO2 95% BMI 35.54 kg/m? Physical Exam Vitals and nursing note reviewed. Constitutional: General: She is not in acute distress. Appearance: Normal appearance. She is not toxic-appearing. HENT: Nose: Nose normal. Mouth/Throat: Mouth: Mucous membranes are moist. Eyes: Conjunctiva/sclera: Conjunctivae normal. Cardiovascular: Rate and Rhythm: Normal rate and regular rhythm. Pulmonary: Effort: Pulmonary effort is normal. Breath sounds: Normal breath sounds. Abdominal: General: Abdomen is flat. Palpations: Abdomen is soft. Tenderness: There is no abdominal tenderness. There is no right CVA tenderness, left CVA tenderness, guarding or rebound. Skin: General: Ski (more content not included)...[facility]01-19-2025 History of Present illness Narrative* Mike Chanel PA - 09/03/2024 8:31 AM EST This note was created using NoteWriter. Subjective Janessa Baron is a 74 year old female. HPI 74-year-old female presents for UTI symptoms. Patient states she has been having burning with urination, pressure and frequency since yesterday. She denies any abdominal pain, back pain, vomitingor fevers. She has had UTIs in the past, none recently. She denies any blood in the urine. No history of kidney stones. No other complaint. PAST MEDICAL HISTORY Diagnosis Date Asthma Carotid [...] Media, Ivp Dye [Iodine], Lincomycin, Pseudoephedrine, Reglan [Metoclopr amide Hcl], Manaejl-Yvf-Bht Reductase Inhibitors, Tequin [Gatifloxacin], and Doxycycline MEDICATIONS albuterol (PROVENTIL) 2.5 mg /3 mL (0.083 %) nebulizer solution INHALE WITH 1 VIAL IN NEBULIZER EVERY SIX HOURS NEEDED rosuvastatin (CRESTOR) 10 mg tablet Take 1 tablet by mouth daily at bedtime. metFORMIN (GLUCOPHAGE) 500 mg tablet Take 2 tablets by mouth two times a day with meals. blood sugar diagnostic (RateItAllUCH ULTRA TEST) test strip Monitor blood sugar daily and as needed. glimepiride (AMARYL) 4 mg tablet Take 1 tablet by mouth daily with breakfast. montelukast (SINGULAIR) 10 mg tablet Take 1 tablet by mouth daily at bedtime. omeprazole (PRILOSEC) 40 mg capsule Take 1 capsule by mouth two times a day. pioglitazone (ACTOS) 45 mg tablet Take 1 tablet by mouth once daily. lisinopril-hydroCHLOROthiazide (ZESTORETIC) 20-12.5 mg per tablet Take 1 tablet by mouth once daily. ketoconazole (NIZORAL) 2 % cream Apply to affected area once daily for 10 days. NYSTOP powder APPLY TO THE AFFECTED AREA(S) THREE TIMES DAILY sucralfate (CARAFATE) 1 gram tablet Take 1 g by mouth three times a day. 1/2 hour before meals budesonide (PULMICORT) 0.5 mg/2 mL nebulizer solution mix 2 ampules with saline and apply twice daily gel base no.41, bulk, (HYDROGEL) gel 1 Dose once daily. lancets (ONE TOUCH DELBinfire) 33 gauge 1 Each once daily. blood sugar diagnostic (ArterisTOUCH ULTRA TEST) test strip 1 Strip before meals and at bedtime. Use asinstructed aspirin, enteric coated (ASPIRIN, ENTERIC COATED) 81 mg EC tablet Take 81 mg by mouth once daily. lancets (TRUEPLUS LANCETS) 33 gauge Monitor blood sugar daily and as needed. traMADol (ULTRAM) 50 mg tablet Take 50 mg by mouth every 6 hours as needed for pain. diclofenac (VOLTAREN) 1 % topical gel Apply to affected area four times daily. mag carb/aluminum hydrox/algin (GAVISCON ORAL) Take by mouth. cetirizine HCl (ZYRTEC ORAL) Take by mouth. ubidecarenone (CO Q-10 ORAL) Take by mouth. FAMILY HISTORY Problem Relation Age of Onset Colon Cancer Sister 67 Thyroid Cancer Brother Cancer Sister vaginal Social History Tobacco Use Smoking status: Never Smokeless tobacco: Never Vaping Use Vaping status: Never Used Substance Use Topics Alcohol use: Not Currently Drug use: Not Currently Review of Systems Constitutional: Negative for chills and fever. HENT: Negative for congestion, ear pain and sore throat. Respiratory: Negative for cough and shortness of breath. Cardiovascular: Negative for chest pain. Gastrointestinal: Negative for diarrhea and vomiting. Genitourinary: Positive for dysuria, frequency and urgency. Objective BP 153/69 Pulse 94 Temp 36.9 C (98.4 F) Resp 20 Wt 91 kg (200 lb 9.9 oz) SpO2 95% BMI 35.54 kg/m Physical Exam Vitals and nursing note reviewed. Constitutional: General: She is not in acute distress. Appearance: Normal appearance. She is not toxic-appearing. HENT: Nose: Nose normal. Mouth/Throat: Mouth: Mucous membranes are moist. Eyes: Conjunctiva/sclera: Conjunctivae normal. Cardiovascular: Rate and Rhythm: Normal rate and regular rhythm. Pulmonary: Effort: Pulmonary effort is normal. Breath sounds: Normal breath sounds. Abdominal: General: Abdomen is flat. Palpations: Abdomen is soft. Tenderness: There is no abdominal tenderness. There is no right CVA tenderness, left CVA tenderness, guarding or rebound. Skin: General: Skin is warm and dry. Neurological: Mental Status: She is alert. Assessment and Plan ASSESSMENT/PLAN: 1. Frequency of urination - ICD9: 788.41, ICD10: R35.0 acute - UA positive for johanny esterase and hematuria - Send urine for culture - Begin treatment with Macrobid 100 mg BID for 5 days -Reviewed labs from 07/2024. Normal kidney function. GFR 90 - Patient education for prevention given - UA DIP, URINE (POC) - BACTERIAL CULTURE, URINE Diagnosis and treatment plan were discussed and questions were answered to the patient's satisfaction. Pt acknowledged understanding of concepts and follow up plan. Specific signs and symptoms that would indicate the need for higher level of care were discussed in detail warranting prompt ER evaluation. INDU Paez [facility] Telephone encounter Note * Telephone Encounter - Spring Shipley LPN - 08/28/2024 9:02 AM EST Last Office Visit: 08-21-2024 Next Scheduled Office Visit: 01-24-2025 Requested Prescriptions Pending Prescriptions Disp Refills albuterol (PROVENTIL) 2.5 mg /3 mL (0.083 %) nebulizer solution [Pharmacy Med Name: albuterol sulfate 2.5 mg/3 mL (0.083 %) solution for nebulization] 90 mL 3 Sig: INHALE WITH 1 VIAL IN NEBULIZER EVERY SIX HOURS NEEDED Spring Shipley LPN August 28, 2024 9:02 AM [facility]01-[facility] Miscellaneous Notes* Telephone Encounter - Spring Shipley LPN - 08/28/2024 9:02 AM EST Last Office Visit: 08-21-2024 Next Scheduled Office Visit: 01-24-2025 Requested Prescriptions Pending Prescriptions Disp Refills albuterol (PROVENTIL) 2.5 mg /3 mL (0.083 %) nebulizer solution [Pharmacy Med Name: albuterol sulfate 2.5 mg/3 mL (0.083 %) solution for nebulization] 90 mL 3 Sig: INHALE WITH 1 VIAL IN NEBULIZER EVERY SIX HOURS NEEDED Spring Shipley LPN August 28, 2024 9:02 AM documented in this encounterW[facility]01-[facility] Note* Addendum Note - Kali Bacon MD - 2024 9:09 AM ESTAddended by: KALI BACON on: 2024 09:09 AM Modules accepted: Orders [facility]01-09-2025 Miscellaneous Notes* Addendum Note - Kali Bacon MD - 2024 9:09 AM ESTAddended by: KALI BACON on: 2024 09:09 AM Modules accepted: Orders documented in this encounterW[facility]01-[facility] Telephone encounter Note * Telephone Encounter - Spring Shipley LPN - 08/22/2024 10:25 AM EST Venofer is available at [facility]. Please complete the pended order Pended Orders ID Status Description Pended By When Reason [id number] Pended iron sucrose 200 mg in NaCl 0.9% 100 mL-ONCE Spring Shipley LPN 08/22/24 1026 Spring Shipley LPN August 22, 2024 10:26 AM [facility]01-[facility] Miscellaneous Notes* Telephone Encounter - Spring Shipley LPN - 08/22/2024 10:25 AM EST Venofer is available at [facility]. Please complete the pended order Pended Orders ID Status Description Pended By When Reason [id number] Pended iron sucrose 200 mg in NaCl 0.9% 100 mL-ONCE Spring Shipley LPN 08/22/24 1026 Spring Shipley LPN August 22, 2024 10:26 AM * Telephone Encounter - Spring Shipley LPN - 08/22/2024 10:24 AM EST ----- Message from Kali Bacon MD sent at 08/22/2024 8:06 AM EST ----- Anemia unchanged. Iron deficiency severe. Arrange iron transfusion in [place]. Consult hematology. documented in this encounterW[facility]01-[facility]25 Telephone encounter Note * Telephone Encounter - Spring Shipley LPN - 08/22/2024 10:24 AM EST ----- Message from Kali Bacon MD sent at 08/22/2024 8:06 AM EST ----- Anemia unchanged. Iron deficiency severe. Arrange iron transfusion in [place]. Consult hematology. [facility]01-[facility]25 NoteHNO ID: [id number] Author: KALI BACON MD Service: ? Author Type: Physician Type: Progress Notes Filed: 08/22/2024 09:45 Note Text: Subjective Janessa Baron is a 73 year old female. Janessa presents today for preop clearance for upcoming back surgery. She denies any problems with anesthesia with her last procedure. Additionally she denies any current cardiovascular, pulmonary, or neurological symptoms. She has already been cleared by her personal care service provider. She has appointment with cardiology on September 04. Her chronic medical problems have been stable. She did have recent drop in her hemoglobin. She has not yet completed iron studies. Review of Systems Constitutional: Negative. HENT: Negative. [...] Never Smokeless tobacco: Never Vaping Use Vaping status: Never Used Substance Use Topics Alcohol use: Not Currently Drug use: Not Currently ALLERGIES Allergen Reactions Metoclopramide Unknown Sulfamethoxazole-Tr* Unknown Morphine Unknown Acetaminophen Unknown Augmentin [Amoxicil* Rash Cefzil [Cefprozil] Rash Dayquil Allergy 12-* Hives Dextromethorphan Hives Doxylamine Hives Erythromycin Rash Iodinated Contrast * Hives Ivp Dye [Iodine] Unknown knot on head Lincomycin Rash Pseudoephedrine Hives Reglan [Metoclopram* Intolerance Clqpkkk-Xfg-Kkq Red* Unknown Other reaction(s): Other Tequin [Gatifloxaci* Rash Doxycycline Unknown, Vomiting MEDICATIONS: albuterol (PROVENTIL) 2.5 mg /3 mL (0.083 %) nebulizer solution INHALE WITH 1 VIAL IN NEBULIZER EVERY SIX HOURS NEEDED rosuvastatin (CRESTOR) 10 mg tablet Take 1 tablet by mouth daily at bedtime. metFORMIN (GLUCOPHAGE) 500 mg tablet Take 2 tablets by mouth two times a day with meals. blood sugar diagnostic ([employer] ULTRA TEST) test strip Monitor blood sugar daily and as needed. glimepiride (AMARYL) 4 mg tablet Take 1 tablet by mouth daily with breakfast. montelukast (SINGULAIR) 10 mg tablet Take 1 tablet by mouth daily at bedtime. omeprazole (PRILOSEC) 40 mg capsule Take 1 capsule by mouth two times a day. pioglitazone (ACTOS) 45 mg tablet Take 1 tablet by mouth once daily. lisinopril-hydroCHLOROthiazide (ZESTORETIC) 20-12.5 mg per tablet Take 1 tablet by mouth once daily. ketoconazole (NIZORAL) 2 % cream Apply to affected area once daily for 10 days. NYSTOP powder APPLY TO THE AFFECTED AREA(S) THREE TIMES DAILY sucralfate (CARAFATE) 1 gram tablet Take 1 g by mouth three times a day. 1/2 hour before meals budesonide (PULMICORT) 0.5 mg/2 mL nebulizer solution mix 2 ampules with saline and apply twice daily gel base no.41, bulk, (HYDROGEL) gel 1 Dose once daily. lancets (ONE TOUCH DELBinfire) 33 gauge 1 Each once daily. blood sugar diagnostic ([employer] ULTRA TEST) test strip 1 Strip before meals and at bedtime. Use as instructed aspirin, enteric coated (ASPIRIN, ENTERIC COATED) 81 mg EC tablet Take 81 mg by mouth once daily. lancets (TRUEPLUS LANCETS) 33 gauge Monitor blood sugar daily and as needed. traMADol (ULTRAM) 50 mg tablet Take 50 mg by mouth every 6 hours as needed for pain. diclofenac (VOLTAREN) 1 % topical gel Apply to affected area four times daily. mag carb/aluminum hydrox/algin (GAVISCON ORAL) Take by mouth. cetirizine HCl (ZYRTEC ORAL) Take by mouth. ubidecarenone (CO Q-10 ORAL) Take by mouth. Allergies, past surgical history, family history and past medical history were reviewed per this encounter. Medications were reviewed and verified. 07/26/2024 08/21/2024 INTAKE PAIN ASSESSMENT Are you having pain associated with your visit today? No Yes, Provider notified Pain Scales Verbal (Numeric Rating or Visual Analog Scale) Pain Level 8 Pain Location -- Description Aching;Shooting;Stabbing Duration Units Weeks Frequency Continuous If pain assessment is 0, no action needed. If pain assessment is positive, please see assessment an (more content not included)...[facility]01-[facility] History of Present illness Narrative * Kali Bacon MD - 08/21/2024 4:39 PM EST Subjective Janessa Baron is a 73 year old female. Janessa presents today for preop clearance for upcoming back surgery. She denies any problems with anesthesia with her last procedure. Additionally she denies any current cardiovascular, pulmonary, or neurological symptoms. She has already been cleared by her personal care service provider. She has appointment with cardiology on September 04. Her chronic medical problems have been stable. She did have recent drop in her hemoglobin. She has not yet completed iron studies. Review of Systems Constitutional: Negative. HENT: Negative. [...] Never Smokeless tobacco: Never Vaping Use Vaping status: Never Used Substance Use Topics Alcohol use: Not Currently Drug use: Not Currently ALLERGIES Allergen Reactions Metoclopramide Unknown Sulfamethoxazole-Tr* Unknown Morphine Unknown Acetaminophen Unknown Augmentin [Amoxicil* Rash Cefzil [Cefprozil] Rash Dayquil Allergy 12-* Hives Dextromethorphan Hives Doxylamine Hives Erythromycin Rash Iodinated Contrast * Hives Ivp Dye [Iodine] Unknown knot on head Lincomycin Rash Pseudoephedrine Hives Reglan [Metoclopram* Intolerance Lixnazw-Szk-Htb Red* Unknown Other reaction(s): Other Tequin [Gatifloxaci* Rash Doxycycline Unknown, Vomiting MEDICATIONS: albuterol (PROVENTIL) 2.5 mg /3 mL (0.083 %) nebulizer solution INHALE WITH 1 VIAL IN NEBULIZER EVERY SIX HOURS NEEDED rosuvastatin (CRESTOR) 10 mg tablet Take 1 tablet by mouth daily at bedtime. metFORMIN (GLUCOPHAGE) 500 mg tablet Take 2 tablets by mouth two times a day with meals. blood sugar diagnostic (ONETOUCH ULTRA TEST) test strip Monitor blood sugar daily and as needed. glimepiride (AMARYL) 4 mg tablet Take 1 tablet by mouth daily with breakfast. montelukast (SINGULAIR) 10 mg tablet Take 1 tablet by mouth daily at bedtime. omeprazole (PRILOSEC) 40 mg capsule Take 1 capsule by mouth two times a day. pioglitazone (ACTOS) 45 mg tablet Take 1 tablet by mouth once daily. lisinopril-hydroCHLOROthiazide (ZESTORETIC) 20-12.5 mg per tablet Take 1 tablet by mouth once daily. ketoconazole (NIZORAL) 2 % cream Apply to affected area once daily for 10 days. NYSTOP powder APPLY TO THE AFFECTED AREA(S) THREE TIMES DAILY sucralfate (CARAFATE) 1 gram tablet Take 1 g by mouth three times a day. 1/2 hour before meals budesonide (PULMICORT) 0.5 mg/2 mL nebulizer solution mix 2 ampules with saline and apply twice daily gel base no.41, bulk, (HYDROGEL) gel 1 Dose once daily. lancets (ONE TOUCH DELBinfire) 33 gauge 1 Each once daily. blood sugar diagnostic (ONETOUCH ULTRA TEST) test strip 1 Strip before meals and at bedtime. Use asinstructed aspirin, enteric coated (ASPIRIN, ENTERIC COATED) 81 mg EC tablet Take 81 mg by mouth once daily. lancets (TRUEPLUS LANCETS) 33 gauge Monitor blood sugar daily and as needed. traMADol (ULTRAM) 50 mg tablet Take 50 mg by mouth every 6 hours as needed for pain. diclofenac (VOLTAREN) 1 % topical gel Apply to affected area four times daily. mag carb/aluminum hydrox/algin (GAVISCON ORAL) Take by mouth. cetirizine HCl (ZYRTEC ORAL) Take by mouth. ubidecarenone (CO Q-10 ORAL) Take by mouth. Allergies, past surgical history, family history and past medical history were reviewed per this encounter. Medications were reviewed and verified. 07/26/2024 08/21/2024 INTAKE PAIN ASSESSMENT Are you having pain associated with your visit today? No Yes, Provider notified Pain Scales Verbal (Numeric Rating or Visual Analog Scale) Pain Level 8 Pain Location -- Description Aching;Shooting;Stabbing Duration Units Weeks Frequency Continuous If pain assessment is 0, no action needed. If pain assessment is positive, please see assessment and plain. Objective BP 126/76 (BP Site: Left Arm, BP Position: Sitting, BP Cuff Size: Extra Large Adult) Pulse 102 Temp 36.1 C (96.9 F) (Temporal) Resp 18 Ht 160 cm (5' 3) Wt 91.2 kg (201 lb) SpO2 96% BMI35.61 kg/m Physical Exam Vitals reviewed. Constitutional: Appearance: [...] and Affect: Mood normal. Behavior: Behavior normal. Procedures Assessment and Plan Encounter Diagnosis ICD-10-CM 1. Preop examination Z01.818 2. Degeneration of intervertebral disc of lumbar region with discogenic back pain M51.360 3. Anemia, unspecified type D64.9 COMPLETE BLOOD COUNT AND DIFFERENTIAL Patient is medically maximized for anesthesia. Recheck CBC. Clearance is pending cardiac approval. Once that is approved then patient will be cleared for surgery. Kali Bacon MD August 21, 2024 Addendum: CBC is stable but remains anemic. Iron levels very low. Iron transfusion recommended. Consult to hematology for further evaluation. Kali Bacon MD August 22, 2024 * Spring Shilpey LPN - 08/21/2024 4:24 PM EST Patient is in office for pre surgical clearance. Patient is having 360 Lumbar fusion L4-5, cement augmentation possible on 09-11-2024. Physician performing procedure is Dr. Issa of [facility]. No refills needed. Spring Shipley LPN August 21, 2024 4:32 PM documented in [facility] encounterW[facility]01-[facility]25 NoteHNO ID: [id number] Author: SPRING SHIPLEY LPN Service: ? Author Type: LICENSED NURSE Type: Progress Notes Filed: 08/22/2024 09:45 Note Text: Patient is in office for pre surgical clearance. Patient is having 360 Lumbar fusion L4-5, cement augmentation possible on 09-11-2024. Physician performing procedure is Dr. Issa of [facility]. No refills needed. Spring Shipley LPN August 21, 2024 4:32 [facility] Telephone encounter Note* Telephone Encounter - Ramos Solis LPN - 08/14/2024 9:42 AM EST Patient notified of result information on My Chart. Notification will be sent to this nurse if message has not been read within 2 days. Patient will be contacted by another form of communication if notification of not reading My Chart message is received. Ramos Solis LPN August 14, 2024 9:42 AM [facility]12-30-2024 Miscellaneous Notes* Telephone Encounter - Ramos Solis LPN - 08/14/2024 9:42 AM EST Patient notified of result information on My Chart. Notification will be sent to this nurse if message has not been read within 2 days. Patient will be contacted by another form of communication if notification of not reading My Chart message is received. Ramos Solis LPN August 14, 2024 9:42 AM * Telephone Encounter - Ramos Solis LPN - 08/14/2024 9:41 AM EST ----- Message from Kali Bacon MD sent at 08/13/2024 10:49 AM EST ----- CV is low with anemia. Check iron levels. documented in this encounterW[facility]12-30-2024 Telephone encounter Note * Telephone Encounter - Ramos Solis LPN - 08/14/2024 9:41 AM EST ----- Message from Kali Bacon MD sent at 08/13/2024 10:49 AM EST ----- CV is low with anemia. Check iron levels. [facility]12-15-2024 NoteHNO ID: [id number] Author: KALI BACON MD Service: ? Author Type: Physician Type: Progress Notes Filed: 07/30/2024 20:49 Note Text: Subjective Janessa Baron is a 73 year old female. Janessa presents today for for her Medicare wellness visit. Additionally she follows up for multiple medical problems. See list. Her chronic medical problems have been stable.She denies any cardiac symptoms. Blood pressures been under good control on her current regimen. Her A-fib has been stable without RVR. She reports her sugars have been under good control on her current medications. Review of Systems Constitutional: Negative. HENT: Negative. [...] Never Smokeless tobacco: Never Vaping Use Vaping status: Never Used Substance Use Topics Alcohol use: Not Currently Drug use: Not Currently ALLERGIES Allergen Reactions Metoclopramide Unknown Sulfamethoxazole-Tr* Unknown Morphine Unknown Acetaminophen Unknown Augmentin [Amoxicil* Rash Cefzil [Cefprozil] Rash Dayquil Allergy 12-* Hives Dextromethorphan Hives Doxylamine Hives Erythromycin Rash Iodinated Contrast * Hives Ivp Dye [Iodine] Unknown knot on head Lincomycin Rash Pseudoephedrine Hives Reglan [Metoclopram* Intolerance Hxphzeg-Ljc-Qvm Red* Unknown Other reaction(s): Other Tequin [Gatifloxaci* Rash Doxycycline Unknown, Vomiting MEDICATIONS: metFORMIN (GLUCOPHAGE) 500 mg tablet Take 2 tablets by mouth two times a day with meals. blood sugar diagnostic ([employer] ULTRA TEST) test strip Monitor blood sugar daily and as needed. ticagrelor (BRILINTA) 90 mg tablet Take 90 mg by mouth two times a day. On hold until after procedure amLODIPine (NORVASC) 5 mg tablet Take 1 tablet by mouth once daily. glimepiride (AMARYL) 4 mg tablet Take 1 tablet by mouth daily with breakfast. metoprolol tartrate, short acting, (LOPRESSOR) 25 mg tablet Take 1 tablet by mouth two times a day. montelukast (SINGULAIR) 10 mg tablet Take 1 tablet by mouth daily at bedtime. omeprazole (PRILOSEC) 40 mg capsule Take 1 capsule by mouth two times a day. pioglitazone (ACTOS) 45 mg tablet Take 1 tablet by mouth once daily. lisinopril-hydroCHLOROthiazide (ZESTORETIC) 20-12.5 mg per tablet Take 1 tablet by mouth once daily. ketoconazole (NIZORAL) 2 % cream Apply to affected area once daily for 10 days. NYSTOP powder APPLY TO THE AFFECTED AREA(S) THREE TIMES DAILY bacitracin 500 unit/gram ointment Apply to affected area two times a day. sucralfate (CARAFATE) 1 gram tablet Take 1 g by mouth three times a day. 1/2 hour before meals tiZANidine (ZANAFLEX) 2 mg tablet Take 2 tablets by mouth every 8 hours as needed. budesonide (PULMICORT) 0.5 mg/2 mL nebulizer solution mix 2 ampules with saline and apply twice daily rbocxsai-zvgybppxy-ssowtjfhergpjw (CORTISPORIN) 3.5-10,000-1 mg/mL-unit/mL-% otic suspension Use 3 Drops in both ears four times daily. gel base no.41, bulk, (HYDROGEL) gel 1 Dose once daily. lancets (ONE TOUCH DELICA) 33 gauge 1 Each once daily. blood sugar diagnostic (ONETOUCH ULTRA TEST) test strip 1 Strip before meals and at bedtime. Use as instructed aspirin, enteric coated (ASPIRIN, ENTERIC COATED) 81 mg EC tablet Take 81 mg by mouth once daily. lancets (TRUEPLUS LANCETS) 33 gauge Monitor blood [...] calcium carbonate/vitamin D3 (CALCIUM 500 + D ORAL (more content not included)...[facility]12-11-2024 NoteHNO ID: [id number] Author: RAMOS SOLIS LPN Service: ? Author Type: LICENSED NURSE Type: Progress Notes Filed: 07/30/2024 20:49 Note Text: Due health maintenance Urine Albumin:Creatinine Ratio declined Diabetic Foot Exam declined Spirometry declined Hepatitis C Screening declined DTaP,Tdap,Td Vaccine(1 - Tdap) declined Mammogram Screening scheduled Pierre 08/31/24 Bone Density Screening scheduled Pierre 08/31/24 BP Controlled (<130/80) HbA1C ordered LDL Cholesterol ordered Discuss left trigger thumb and upcoming L4-L5 surgery Ramos Solis LPN July 26, 2024 2:17 PM[facility]12-[facility] Telephone encounter Note * Telephone Encounter - Ramos Solis LPN - 07/24/2024 8:36 AM EST Last Office Visit: 02/16/24 Next visit: 07/26/24 Requested Prescriptions Pending Prescriptions Disp Refills metFORMIN (GLUCOPHAGE) 500 mg tablet [Pharmacy Med Name: metformin 500 mg tablet] 360 tablet 3 Sig: Take 2 tablets by mouth two times a day with meals. Ramos Solis LPN July 24, 2024 8:37 AM [facility]12-09-2024 Miscellaneous Notes* Telephone Encounter - Ramos Solis LPN - 07/24/2024 8:36 AM EST Last Office Visit: 02/16/24 Next visit: 07/26/24 Requested Prescriptions Pending Prescriptions Disp Refills metFORMIN (GLUCOPHAGE) 500 mg tablet [Pharmacy Med Name: metformin 500 mg tablet] 360 tablet 3 Sig: Take 2 tablets by mouth two times a day with meals. Ramos Solis LPN July 24, 2024 8:37 AM documented in this encounterWy[facility]ot [facility]12-05-2024 Evaluation note* Diagnosis Onset Date Resolution Status Admit Date Spinal stenosis of lumbar region with neurogenic claudication acute July 20 8:48am Spondylolisthesis of lumbar region acute July 20 8:48am Anemia acute September 06, 2024 11:16am Carotid stenosis, left acute Ja nuary 2024 11:16am History of coronary artery bypass graft x November, acute September 06, 2 025 11:16am Hyperlipidemia acute September 062024 11:16am Postoperative atrial fibrillation acute September 06 11:16am HTN (hypertension) chronic Januar y 2024 11:16am 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 acute September 18 3:21pm 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 2024 3:21pm Encounter for routine gynecological examination noneactive Februa 2024 3:21pm [facility] Work Phone: [phone]) 186-264112-05-2024 Evaluation note* Diagnosis Onset Date Resolution Status Admit Date Spinal stenosis of lumbar region with neurogenic claudication acute July 20 8:48am Spondylolisthesis of lumbar region acute July 20 8:48am Anemia acute September 06, 2024 11:16am Carotid stenosis, left acute Ja nuary 2024 11:16am History of coronary artery bypass graft x 3 November, acute September 06, 2 025 11:16am Hyperlipidemia acute September 062024 11:16am Postoperative atrial fibrillation acute September 06 11:16am HTN (hypertension) chronic Janua y 2024 11:16am 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 Author Type: Registered Nurse Type: Progress Notes Filed: 04/12/2024 13:20 Note Text: [facility] Chart Review Provider Action/FYI Gap closure Patient identified by name and date of :YES Outreach made: No: Outreach not necessary Patient identified for Care Coordination from: Care gap reviewed: [facility] Med Rec Post Discharge, [facility] Patient engagement after inpatient discharge, and notification of inpt and with the insurance carrier: [facility] Outreach Plan:Follow up call needed:No [facility] History of Present illness Narrative * Estephania Ayon RN - 04/12/2024 1:06 PM EDT [facility] Chart Review Provider Action/FYI Gap closure Patient identified by name and date of :YES Outreach made: No: Outreach not necessary Patient identified for Care Coordination from: Care gap reviewed: [facility] Med Rec Post Discharge, [facility] Patient engagement after inpatient discharge, and notification of inpt and with the insurance carrier: [facility] Outreach Plan:Follow up call needed:No Estephania Ayon RN documented in this encounterW[facility]ot [facility]08-28-[facility] NotePatient Outreach (MRCAC) LORAINEJANESSA ([id number]) 1950 F Date Time Provider Department 04/12/24 ESTEPHANIA AYON MRCAC During your visit today, we recorded the following information about you: Estephania Ayon RN 04/12/2024 1:20 PM Signed [facility] Chart Review Provider Action/FYI Gap closure Patient identified by name and date of :YES Outreach made: No: Outreach not necessary Patient identified for Care Coordination from: Care gap reviewed: [facility] Med Rec Post Discharge, [facility] Patient engagement after inpatient discharge, and notification of inpt and with the insurance carrier: [facility] Outreach Plan:Follow up call needed:No Estephania Ayon RN Allergies As of Date: 04/12/2024 Noted Allergy Reaction METOCLOPRAMIDE 01/31/2017 16 - Unknown SULFAMETHOXAZOLE-TRIMETHOPRIM 04/01/2017 16 - Unknown MORPHINE 07/24/2020 16 - Unknown ACETAMINOPHEN 04/07/2023 16 - Unknown AUGMENTIN (AMOXICILLIN-POT CLAVUL*04/27/2018 2 - Rash CEFZIL (CEFPROZIL) 04/27/2018 2 - Rash DAYQUIL ALLERGY 12-HR 04/27/2018 4 - Hives DEXTROMETHORPHAN 01/31/2017 4 - Hives DOXYLAMINE 01/31/2017 4 - Hives ERYTHROMYCIN 04/27/2018 2 - Rash IODINATED CONTRAST MEDIA 05/22/2019 4 - Hives IVP DYE (IODINE) 04/27/2018 16 - Unknown Comments: knot on head LINCOMYCIN 04/27/2018 2 - Rash PSEUDOEPHEDRINE 01/31/2017 4 - Hives REGLAN (METOCLOPRAMIDE HCL) 04/27/2018 5 - Intolerance RLJARNZ-YSX-VXY REDUCTASE INHIBIT*01/31/2017 16 - Unknown Comments: Other reaction(s): Other TEQUIN (GATIFLOXACIN) 04/27/2018 2 - Rash DOXYCYCLINE 11/28/2018 16 - Unknown 11 - Vomiting Date Reviewed: 02/16/2024 Reviewed by: Laura Lyons LPN - Fully Assessed Reason for Visit: Client Manager Chronic Care [[id number]] Cmt: Gap closure Prescriptions as of 04/12/2024 - blood sugar diagnostic (ArterisTOUCH ULTRA TEST) test strip Monitor blood sugar daily and as needed. - ticagrelor (BRILINTA) 90 mg tablet Take 90 mg by mouth two times a day. On hold until after procedure - amLODIPine (NORVASC) 5 mg tablet Take 1 tablet by mouth once daily. - glimepiride (AMARYL) 4 mg tablet Take 1 tablet by mouth daily with breakfast. - metFORMIN (GLUCOPHAGE) 500 mg tablet Take 2 tablets by mouth two times a day with meals. - metoprolol tartrate, short acting, (LOPRESSOR) 25 mg tablet Take 1 tablet by mouth two times a day. - montelukast (SINGULAIR) 10 mg tablet Take 1 tablet by mouth daily at bedtime. - omeprazole (PRILOSEC) 40 mg capsule Take 1 capsule by mouth two times a day. - pioglitazone (ACTOS) 45 mg tablet Take 1 tablet by mouth once daily. - lisinopril-hydroCHLOROthiazide (ZESTORETIC) 20-12.5 mg per tablet Take 1 tablet by mouth once daily. - ketoconazole (NIZORAL) 2 % cream Apply to affected area once daily for 10 days. - NYSTOP powder APPLY TO THE AFFECTED AREA(S) THREE TIMES DAILY - bacitracin 500 unit/gram ointment Apply to affected area two times a day. - fluconazole (DIFLUCAN) 150 mg tablet Take 1 tablet by mouth two times a week. - sucralfate (CARAFATE) 1 gram tablet Take 1 g by mouth three times a day. 1/2 hour before meals - tiZANidine (ZANAFLEX) 2 mg tablet Take 2 tablets by mouth every 8 hours as needed. - rosuvastatin (CRESTOR) 10 mg tablet Take 1 tablet by mouth daily at bedtime. - budesonide (PULMICORT) 0.5 mg/2 mL nebulizer solution mix 2 ampules with saline and apply twice daily - uihqilph-zymltdgzz-yhefwvjfkpuzya (CORTISPORIN) 3.5-10,000-1 mg/mL-unit/mL-% otic suspension Use 3 Drops in both ears four times daily. - gel base no.41, bulk, (HYDROGEL) gel 1 Dose once daily. - budesonide-formoterol (SYMBICORT) 160-4.5 mcg/actuation inhaler Inhale 2 Puffs as instructed twice daily. - albuterol (PROVENTIL) 2.5 mg /3 mL (0.083 %) nebulizer solution INHALE WITH 1 VIAL IN NEBULIZER EVERY SIX HOURS NEEDED - lancets (ONE TOUCH DELICA) 33 gauge 1 Each once daily. - blood sugar diagnostic ([employer] ULTRA TEST) test strip 1 Strip before meals and at bedtime. Use as instructed - aspirin, enteric coated (ASPIRIN, ENTERIC COATED) 81 mg EC tablet Take 81 mg by mouth once daily. - lancets (TRUEPLUS LANCETS) 33 gauge Monitor blood sugar daily and as needed. - ascorbic acid, vitamin C, (VITAMIN C) 500 mg tablet Take by mouth. - multivitamin tablet Take by mouth. - traMADol (ULTRAM) 50 mg tablet Take 50 mg by mouth every 6 hours as needed for pain. - methylcellulose (CITRUCEL ORAL) Take by mouth. - diclofenac (VOLTAREN) 1 % topical gel Apply to affected area four times daily. - mag carb/aluminum hydrox/algin (GAVISCON ORAL) Take by mouth. - B-complex with vitamin C (SUPER B COMPLEX-VITAMIN C ORAL) Take by mouth. - FA/mv,Ca,iron,min/lycopene/lut (MULTIVITAL ORAL) Take by mouth. - calcium carbonate/vitamin D3 (CALCIUM 500 + D ORAL) Take by mouth. - cetirizine HCl (ZYRTEC ORAL) Take by mouth. - ubideca (more content not included)...[facility]07-03-[facility]24 NoteHNO ID: [id number] Author: KALI BACON MD Service: ? Author Type: Physician Type: Progress Notes Filed: 02/16/2024 15:47 Note Text: Pavel Baron is a 73 year old female. Patient in the office today with complaints of low blood pressure and elevated glucose. Patient had carotid stent placed 01/25/24 at [facility]. Patient is taking Brillinta for 30 days post op ending on 02/24/2024. She said she is having issues breathing and increasing her glucose levels. She has 9 more days before she can stop the Brilinta. She has only been taking it once a day and taking an extra aspirin to compensate. Patient wants to discuss options. Review of Systems All other systems reviewed and are negative. PAST SURGICAL HISTORY Procedure Laterality Date BREAST [...] Unknown Augmentin [Amoxicil* Rash Cefzil [Cefprozil] Rash Dayquil Allergy 12-* Hives Dextromethorphan Hives Doxylamine Hives Erythromycin Rash Iodinated Contrast * Hives Ivp Dye [Iodine] Unknown knot on head Lincomycin Rash Pseudoephedrine Hives Reglan [Metoclopram* Intolerance Hmkjysk-Qta-Wlk Red* Unknown Other reaction(s): Other Tequin [Gatifloxaci* Rash Doxycycline Unknown, Vomiting MEDICATIONS: blood sugar diagnostic (ArterisTOUCH ULTRA TEST) test strip Monitor blood sugar daily and as needed. ticagrelor (BRILINTA) 90 mg tablet Take 90 mg by mouth two times a day. On hold until after procedure amLODIPine (NORVASC) 5 mg tablet Take 1 tablet by mouth once daily. glimepiride (AMARYL) 4 mg tablet Take 1 tablet by mouth daily with breakfast. metFORMIN (GLUCOPHAGE) 500 mg tablet Take 2 tablets by mouth two times a day with meals. metoprolol tartrate, short acting, (LOPRESSOR) 25 mg tablet Take 1 tablet by mouth two times a day. montelukast (SINGULAIR) 10 mg tablet Take 1 tablet by mouth daily at bedtime. omeprazole (PRILOSEC) 40 mg capsule Take 1 capsule by mouth two times a day. pioglitazone (ACTOS) 45 mg tablet Take 1 tablet by mouth once daily. lisinopril-hydroCHLOROthiazide (ZESTORETIC) 20-12.5 mg per tablet Take 1 tablet by mouth once daily. ketoconazole (NIZORAL) 2 % cream Apply to affected area once daily for 10 days. NYSTOP powder APPLY TO THE AFFECTED AREA(S) THREE TIMES DAILY bacitracin 500 unit/gram ointment Apply to affected area two times a day. fluconazole (DIFLUCAN) 150 mg tablet Take 1 tablet by mouth two times a week. sucralfate (CARAFATE) 1 gram tablet Take 1 g by mouth three times a day. 1/2 hour before meals tiZANidine (ZANAFLEX) 2 mg tablet Take 2 tablets by mouth every 8 hours as needed. (Patient not taking: Reported on 01/24/2024) rosuvastatin (CRESTOR) 10 mg tablet Take 1 tablet by mouth daily at bedtime. budesonide (PULMICORT) 0.5 mg/2 mL nebulizer solution mix 2 ampules with saline and apply twice daily vitidvtk-jcjfslxss-buncbbytqzmuqw (CORTISPORIN) 3.5-10,000-1 mg/mL-unit/mL-% otic suspension Use 3 Drops in both ears four times daily. gel base no.41, bulk, (HYDROGEL) gel 1 Dose once daily. budesonide-formoterol (SYMBICORT) 160-4.5 mcg/actuation inhaler Inhale 2 Puffs as instructed twice daily. albuterol (PROVENTIL) 2.5 mg /3 mL (0.083 %) nebulizer solution INHALE WITH 1 VIAL IN NEBULIZER EVERY SIX HOURS NEEDED lancets (ONE TOUCH DELICA) 33 gauge 1 Each once daily. blood sugar diagnostic (ONETOUCH ULTRA TEST) test strip 1 Strip before meals and at bedtime. Use as instructed aspirin, enteric coated (ASPIRIN, ENTERIC COATED) 81 mg EC tablet Take 81 mg by mouth once daily. lancets (TRUEPLUS LANCETS) 33 gauge Monitor blood [...] times daily. mag carb/aluminum hydrox/algin (GAVISCON ORAL) T (more content not included)... [facility]07-03-[facility] History of Present illness Narrative* Kali Bacon MD - 02/16/2024 3:41 PM EDT Subjective Janessa Baron is a 73 year old female. Patient in the office today with complaints of low blood pressure and elevated glucose. Patient had carotid stent placed 01/25/24 at [facility]. Patient is taking Brillintafor 30 days post op ending on 02/24/2024. She said she is having issues breathing and increasing her glucose levels. She has 9 more days before she can stop the Brilinta. She has only been taking it once a day and taking an extra aspirin to compensate. Patient wants to discuss options. Review of Systems All other systems reviewed and are negative. PAST SURGICAL HISTORY Procedure Laterality Date BREAST [...] Unknown Augmentin [Amoxicil* Rash Cefzil [Cefprozil] Rash Dayquil Allergy 12-* Hives Dextromethorphan Hives Doxylamine Hives Erythromycin Rash Iodinated Contrast * Hives Ivp Dye [Iodine] Unknown knot on head Lincomycin Rash Pseudoephedrine Hives Reglan [Metoclopram* Intolerance Yjumcpw-Gzv-Wld Red* Unknown Other reaction(s): Other Tequin [Gatifloxaci* Rash Doxycycline Unknown, Vomiting MEDICATIONS: blood sugar diagnostic ([employer] ULTRA TEST) test strip Monitor blood sugar daily and as needed. ticagrelor (BRILINTA) 90 mg tablet Take 90 mg by mouth two times a day. On hold until after procedure amLODIPine (NORVASC) 5 mg tablet Take 1 tablet by mouth once daily. glimepiride (AMARYL) 4 mg tablet Take 1 tablet by mouth daily with breakfast. metFORMIN (GLUCOPHAGE) 500 mg tablet Take 2 tablets by mouth two times a day with meals. metoprolol tartrate, short acting, (LOPRESSOR) 25 mg tablet Take 1 tablet by mouth two times a day. montelukast (SINGULAIR) 10 mg tablet Take 1 tablet by mouth daily at bedtime. omeprazole (PRILOSEC) 40 mg capsule Take 1 capsule by mouth two times a day. pioglitazone (ACTOS) 45 mg tablet Take 1 tablet by mouth once daily. lisinopril-hydroCHLOROthiazide (ZESTORETIC) 20-12.5 mg per tablet Take 1 tablet by mouth once daily. ketoconazole (NIZORAL) 2 % cream Apply to affected area once daily for 10 days. NYSTOP powder APPLY TO THE AFFECTED AREA(S) THREE TIMES DAILY bacitracin 500 unit/gram ointment Apply to affected area two times a day. fluconazole (DIFLUCAN) 150 mg tablet Take 1 tablet by mouth two times a week. sucralfate (CARAFATE) 1 gram tablet Take 1 g by mouth three times a day. 1/2 hour before meals tiZANidine (ZANAFLEX) 2 mg tablet Take 2 tablets by mouth every 8 hours as needed. (Patient not taking: Reported on 01/24/2024) rosuvastatin (CRESTOR) 10 mg tablet Take 1 tablet by mouth daily at bedtime. budesonide (PULMICORT) 0.5 mg/2 mL nebulizer solution mix 2 ampules with saline and apply twice daily ggaezumw-afjsnvfem-wbhrkxflycyxxh (CORTISPORIN) 3.5-10,000-1 mg/mL-unit/mL-% otic suspension Use 3 Drops in both ears four times daily. gel base no.41, bulk, (HYDROGEL) gel 1 Dose once daily. budesonide-formoterol (SYMBICORT) 160-4.5 mcg/actuation inhaler Inhale 2 Puffs as instructed twice daily. albuterol (PROVENTIL) 2.5 mg /3 mL (0.083 %) nebulizer solution INHALE WITH 1 VIAL IN NEBULIZER EVERY SIX HOURS NEEDED lancets (ONE TOUCH DELBinfire) 33 gauge 1 Each once daily. blood sugar diagnostic (ONETOUCH ULTRA TEST) test strip 1 Strip before meals and at bedtime. Use asinstructed aspirin, enteric coated (ASPIRIN, ENTERIC COATED) 81 mg EC tablet Take 81 mg by mouth once daily. lancets (TRUEPLUS LANCETS) 33 gauge Monitor blood [...] ubidecarenone (CO Q-10 ORAL) Take by mouth. Allergies, past surgical history, family history and past medical history were reviewed per this encounter. Medications were reviewed and verified. Objective BP 138/74 (BP Site: Left Arm, BP Position: Sitting, BP Cuff Size: Large Adult) Pulse 88 Temp 36.9 C (98.4 F) (Temporal) Resp 21 Ht 160 cm (5' 3) Wt 87.1 kg (192 lb) SpO2 100% BMI 34.01kg/m Physical Exam Vitals reviewed. Constitutional: Appearance: Normal [...] and Plan Encounter Diagnosis ICD-10-CM 1. Hypertension, unspecified type I10 COMPREHENSIVE METABOLIC PANEL 2. Type 2 diabetes mellitus without complication, without long-term current use of insulin ([facility]) E11.9 HEMOGLOBIN A1C COMPREHENSIVE METABOLIC PANEL 3. Pure hypercholesterolemia E78.00 LIPID PANEL BASIC COMPREHENSIVE METABOLIC PANEL 4. Diabetes mellitus type 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 ([facility]) E11.9 blood sugar diagnostic (ONETOUCH ULTRA TEST) test strip 5. Arteriosclerosis of coronary artery I25.10 6. Paroxysmal atrial fibrillation ([facility]) I48.0 7. Stenosis of carotid artery, unspecified laterality I65.29 8. Internal carotid artery stent present Z95.828 9. Side effect of medication T88.7XXA Patient is to try to get into doses of Brilinta the day. She has 9 more days of therapy to get through. Monitor sugars regularly. Monitor blood pressure regularly. She has plan to adjust the dose of her blood pressure medication as needed based upon her blood pressure readings. Follow-up in 1 month. Kali Bacon MD * Laura Lyons LPN - 02/16/2024 2:23 PM EDT Patient in the office today with complaints of low blood pressure and elevated glucose. Patient had carotid stent placed 01/25/24 at [facility]. Patient is taking Brillintafor 30 days post op ending on 02/24/2024. She said she is having issues breathing and increasing her glucose levels. Patient wants to discuss options. Refills entered. Laura Lyons LPN February 16, 2024 2:48 PM documented in this encounterW[facility]07-03-2024 NoteHNO ID: [id number] Author: LAURA LYONS LPN Service: ? Author Type: LICENSED NURSE Type: Progress Notes Filed: 02/16/2024 15:47 Note Text: Patient in the office today with complaints of low blood pressure and elevated glucose. Patient had carotid stent placed 01/25/24 at [facility]. Patient is taking Brillinta for 30 days post op ending on 02/24/2024. She said she is having issues breathing and increasing her glucose levels. Patient wants to discuss options. Refills entered. Laura Lyons LPN February 16, 2024 2:48 PMO[facility]06-[facility] Telephone encounter Note* Telephone Encounter - Ewa Mclain LPN - 02/07/2024 9:47 AM EDT Janessa Baron's Rody called today. : 1950 Allergies: Metoclopramide, Sulfamethoxazole-Trimethoprim, Morphine, Acetaminophen, Augmentin [Amoxicillin-Pot Clavulanate], Cefzil [Cefprozil], Dayquil Allergy 12-Hr, Dextromethorphan, Doxylamine, Erythromycin, Iodinated Contrast Media, Ivp Dye [Iodine], Lincomycin, Pseudoephedrine, Reglan [Metoclop ramide Hcl], Juqwfsw-Yck-Gsz Reductase Inhibitors, Tequin [Gatifloxacin], and Doxycycline (home) [phone] (work) [phone] (cell) Reason for call: Rody said Janessa was seen in the office by Dr Bacon on 01/24/24. She had a rash at that time on her arms, neck, back, and legs. The steroid medication is not working. Janessa wants to go to a Dermatologistand needs a referral. She would like to go see [facility] Dr Garrick Walters of [address], [place] [address] Patient last appointment: 01/24/2024 The patients preferred pharmacy has been captured for this encounter? no Ewa Mclain LPN [facility]06-24-[facility] Miscellaneous Notes* Telephone Encounter - Ewa Mclain LPN - 02/07/2024 9:47 AM EDT Janessa Baron's Rody called today. : 1950 Allergies: Metoclopramide, Sulfamethoxazole-Trimethoprim, Morphine, Acetaminophen, Augmentin [Amoxicillin-Pot Clavulanate], Cefzil [Cefprozil], Dayquil Allergy 12-Hr, Dextromethorphan, Doxylamine, Erythromycin, Iodinated Contrast Media, Ivp Dye [Iodine], Lincomycin, Pseudoephedrine, Reglan [Metoclop ramide Hcl], Xdtyksq-Vzk-Zax Reductase Inhibitors, Tequin [Gatifloxacin], and Doxycycline (home) [phone] (work) [phone] (cell) Reason for call: Rody said Janessa was seen in the office by Dr Bacon on 01/24/24. She had a rash at that time on her arms, neck, back, and legs. The steroid medication is not working. Janessa wants to go to a Dermatologistand needs a referral. She would like to go see [facility] Dr Garrick Walters of [address], [place] [address] Patient last appointment: 01/24/2024 The patients preferred pharmacy has been captured for this encounter? no Ewa Mclain LPN documented in this encounterWyandot [facility]06-14-2024 NoteHNO ID: [id number] Author: KAELA CARTER RN Service: ? Author Type: Registered Nurse Type: Progress Notes Filed: 01/28/2024 12:44 Note Text: TRANSITION CARE MANAGEMENT (TCM) INITIAL CONTACT Provider Action/FYI: Initial contact with patient post discharge, spoke to patient. Patient identified by name and . CALL SUMMARY: EMR reviewed. Introduced myself and my role. Reviewed patient's discharge paperwork that may include any activity restrictions, dietary instructions, follow up labs or tests, and follow up appointments. Medications reconciled. Patient was admitted electively for left carotid stenosis. 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 She is monitoring her blood pressure at home as instructed to do so per discharge instructions. She did state she restarted Metoprolol this morning. Patient has a follow up appointment with Dr. Gilbert on 02/10/24. Patient has removed the dressing over the incision and reports no issues. Encouraged to reach out to PCP or specialty provider if new or worsening symptoms. Routed to PCP: No APPOINTMENTS/SERVICES: Reviewed discharge follow up appointments per discharge summary. Yes [facility]; Dr. Abraham Gilbert MD Confirmed patient has transportation to appointments: Yes Reviewed the following services: None Reviewed SDOH: Yes Referral to SW: No DIET/ACTIVITY RESTRICTIONS: You have a small bandage over the site from which the surgical drain was removed. You may remove this bandage tomorrow. As long as there is no residual drainage, you may leave this open to air. If you do notice some continued drainage, you may re-cover with a Band-Aid. Your incision site is covered with surgical glue which will continue to protect it. The surgical glue will peel/flake off on its own over the next few weeks. Please do not pick at it. You may shower tomorrow. It is okay for soap and water to rinse over the incision site, pat to dry. Do not submerge the incision site in water such as to take a bath or go swimming etc. for 3 weeks. Do not lift greater than 20 pounds for 3 weeks. Otherwise, please continue with activity as tolerated. Do not drive until you can turn your head well enough to safely check your blind spots. EDUCATION: (Zone tools) MEDICATION REVIEW: Confirmed patient able to obtain medications (new and/or refills): Yes Reviewed medications below in detail. Patient reports compliance with appropriate medications at this time. TCM Eligibility Documentation Program: Transitional Care Management Status: Declined Uninterested Effective Dates: 01/28/2024 - 01/28/2024 Responsible Staff: Kaela Carter RN Discharge date: 01/28/2024 (Program start) Date of initial contact: N/A Initial contact Target status: Successful; Contact made within 2 business days post-discharge SUMMARY: -Pt discharged from [facility] on 01/27/24. -Follow up appointment on 02/10/24-cardiology. -Medication review done yes. -Admitted for: Occlusion and stenosis of left carotid artery CONCERNS: N/A NEW MEDICATIONS: docusate sodium 100 mg Capsule 100 mg PO BID PRN PRN (Reason: Constipation) 5 Days Qty: 10 0RF oxycodone 5 mg Tablet 5 mg PO Q8H PRN PRN (Reason: Pain Score 4-10) 3 Days Qty: 9 0RF MEDS HELD/DISCONTINUED: amlodipine [Norvasc] 5 mg tablet 5 mg PO DAILY Hold Instructions: Resume on 01/29/24. Hold until systolic BP >140 lisinopril-hydrochlorothiazide 20-12.5 mg tablet 1 tab PO DAILY Hold Instructions: Resume on 01/30/24. Hold until systolic BP >140 metoprolol tartrate 25 mg tablet 25 mg PO BID Hold Instructions: Resume on 01/28/24. Hold until systolic BP >140 BRIEF HOSPITAL COURSE: Janessa Baron is a 73 y/o female who underwent L TCAR on 01/25/24. She tolerated the procedure well. She was routinely admitted to the ICU postoperatively for hemodynamic and neurologic monitoring. Postoperatively, she was hypotensive and required levophed to maintain her pressures. She was able to be weaned off of the levophed on 01/26/24 evening. Her ROLANDO drain was removed on 01/25 without issue. She has remained neurologically intact throughout her admission without any hoarseness, tongue deviation, difficulty swallowing. The incision site has remained satisfactory in appearance. She is tolerating a normal diet, ambulatingwithout difficulty, voiding without difficulty. She has not had any unilateral BOLANOS. She is medically stable for discharge home today. Her blood pressures have remained below 140 systolic so her home BP meds have been held. She has been advised to check her BP twice daily and restart her home blood pressure medications once her systolic pressures are greater than 140. She has outpatient follow-up scheduled in the office on 02/10/24. Kaela Carter RN [phone] [place], [place] [id number] History of Present illness Narrative* Kaela Carter, RN - 01/28/2024 9:54 AM EDT TRANSITION CARE MANAGEMENT (TCM) INITIAL CONTACT Provider Action/FYI: Initial contact with patient post discharge, spoke to patient. Patient identified by name and . CALL SUMMARY: EMR reviewed. Introduced myself and my role. Reviewed patient's discharge paperwork that may include any activity restrictions, dietary instructions, follow up labs or tests, and follow up appointments. Medications reconciled. Patient was admitted electively for left carotid stenosis. 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 She did state she restarted Metoprolol this morning. Patient has a follow up appointment with Dr. Gilbert on 02/10/24. Patient has removed the dressing over the incision and reports no issues. Encouraged to reach out to PCP or specialty provider if new or worsening symptoms. Routed to PCP: No APPOINTMENTS/SERVICES: Reviewed discharge follow up appointments per discharge summary. Yes INDU [place]; Dr. Abraham Gilbert MD Confirmed patient has transportation to appointments: Yes Reviewed the following services: None Reviewed SDOH: Yes Referral to SW: No DIET/ACTIVITY RESTRICTIONS: You have a small bandage over the site from which the surgical drain was removed. You may remove this bandage tomorrow. As long as there is no residual drainage, you may leave this open to air. If you do notice some continued drainage, you may re-cover with a Band-Aid. Your incision site is covered with surgical glue which will continue to protect it. The surgical glue will peel/flake off on its own over the next few weeks. Please do not pick at it. You may shower tomorrow. It is okay for soap and water to rinse over the incision site, pat to dry. Do not submerge the incision site in water such as to take a bath or go swimming etc. for 3 weeks. Do not lift greater than 20 pounds for 3 weeks. Otherwise, please continue with activity as tolerated. Do not drive until you can turn your head well enough to safely check your blind spots. EDUCATION: (Zone tools) MEDICATION REVIEW: Confirmed patient able to obtain medications (new and/or refills): Yes Reviewed medications below in detail. Patient reports compliance with appropriate medications at this time. TCM Eligibility Documentation Program: Transitional Care Management Status: Declined Uninterested Effective Dates: 01/28/2024 - 01/28/2024 Responsible Staff: Kaela Carter RN Discharge date: 01/28/2024 (Program start) Date of initial contact: N/A Initial contact Target status: Successful; Contact made within 2 business days post-discharge SUMMARY: -Pt discharged from [facility] on 01/27/24. -Follow up appointment on 02/10/24-cardiology. -Medication review done yes. -Admitted for: Occlusion and stenosis of left carotid artery CONCERNS: N/A NEW MEDICATIONS: docusate sodium 100 mg Capsule 100 mg PO BID PRN PRN (Reason: Constipation) 5 Days Qty: 10 0RF oxycodone 5 mg Tablet 5 mg PO Q8H PRN PRN (Reason: Pain Score 4-10) 3 Days Qty: 9 0RF MEDS HELD/DISCONTINUED: amlodipine [Norvasc] 5 mg tablet 5 mg PO DAILY Hold Instructions: Resume on 01/29/24. Hold until systolic BP >140 lisinopril-hydrochlorothiazide 20-12.5 mg tablet 1 tab PO DAILY Hold Instructions: Resume on 01/30/24. Hold until systolic BP >140 metoprolol tartrate 25 mg tablet 25 mg PO BID Hold Instructions: Resume on 01/28/24. Hold until systolic BP >140 BRIEF HOSPITAL COURSE: Janessa Baron is a 73 y/o female who underwent L TCAR on 01/25/24. She tolerated the procedure well. She was routinely admitted to the ICU postoperatively for hemodynamic and neurologic monitoring. Postoperatively, she was hypotensive and required levophed to maintain her pressures. She was able to beweaned off of the levophed on 01/26/24 evening. Her ROLANDO drain was removed on 01/25 without issue. She has remained neurologically intact throughout her admission without any hoarseness, tongue deviation, difficulty swallowing. The incision site has remained satisfactory in appearance. She is tolerating a normal diet, ambulating without difficulty, voiding without difficulty. She has not had any unilateral BOLANOS. She is medically stable for discharge home today. Her blood pressures have remained [id number] systolic so her home BP meds have been held. She has been advised to check her BP twice daily and restart her home blood pressure medications once her systolic pressures are greater than 140. [facility] outpatient follow-up scheduled in the office on 02/10/24. Kaela Carter RN [phone] documented in this encounterWyandot [facility] Hospital06-10-2024 History of Present illness Narrative* Kali Bacon MD - 01/24/2024 2:10 PM EDT Subjective Janessa Baron is a 73 year old female.The patient presents today for follow-up for multiple medicalproblems. See list. Her chronic medical problems have been stable. Her blood pressure is under goodcontrol. She did add back the hydrochlorothiazide due to some lower extremity swelling. Her symptoms have improved. She has no new complaints today. She is feeling well. Recent lab work was reviewed and is normal. A1c was 6.6. She is due for lipid testing. Review of Systems Constitutional: Negative. HENT: Negative. [...] Unknown Augmentin [Amoxicil* Rash Cefzil [Cefprozil] Rash Dayquil Allergy 12-* Hives Dextromethorphan Hives Doxylamine Hives Erythromycin Rash Iodinated Contrast * Hives Ivp Dye [Iodine] Unknown knot on head Lincomycin Rash Pseudoephedrine Hives Reglan [Metoclopram* Intolerance Fedulek-Qzu-Vxt Red* Unknown Other reaction(s): Other Tequin [Gatifloxaci* Rash Doxycycline Unknown, Vomiting MEDICATIONS: ticagrelor (BRILINTA) 90 mg tablet Take 90 mg by mouth two times a day. On hold until after procedure ketoconazole (NIZORAL) 2 % cream Apply to affected area once daily for 10 days. NYSTOP powder APPLY TO THE AFFECTED AREA(S) THREE TIMES DAILY bacitracin 500 unit/gram ointment Apply to affected area two times a day. fluconazole (DIFLUCAN) 150 mg tablet Take 1 tablet by mouth two times a week. sucralfate (CARAFATE) 1 gram tablet Take 1 g by mouth three times a day. 1/2 hour before meals rosuvastatin (CRESTOR) 10 mg tablet Take 1 tablet by mouth daily at bedtime. budesonide (PULMICORT) 0.5 mg/2 mL nebulizer solution mix 2 ampules with saline and apply twice daily jaglpwar-qvmbxusdy-rwbcqjhtsgyacs (CORTISPORIN) 3.5-10,000-1 mg/mL-unit/mL-% otic suspension Use 3 Drops in both ears four times daily. gel base no.41, bulk, (HYDROGEL) gel 1 Dose once daily. budesonide-formoterol (SYMBICORT) 160-4.5 mcg/actuation inhaler Inhale 2 Puffs as instructed twice daily. albuterol (PROVENTIL) 2.5 mg /3 mL (0.083 %) nebulizer solution INHALE WITH 1 VIAL IN NEBULIZER EVERY SIX HOURS NEEDED lancets (ONE TOUCH DELICA) 33 gauge 1 Each once daily. blood sugar diagnostic (ONETOUCH ULTRA TEST) test strip 1 Strip before meals and at bedtime. Use asinstructed aspirin, enteric coated (ASPIRIN, ENTERIC COATED) 81 [...] Take 1 tablet by mouth once daily. glimepiride (AMARYL) 4 mg tablet Take 1 tablet by mouth daily with breakfast. metFORMIN (GLUCOPHAGE) 500 mg tablet Take 2 tablets by mouth two times a day with meals. metoprolol tartrate, short acting, (LOPRESSOR) 25 mg tablet Take 1 tablet by mouth two times a day. montelukast (SINGULAIR) 10 mg tablet Take 1 tablet by mouth daily at bedtime. omeprazole (PRILOSEC) 40 mg capsule Take 1 capsule by mouth two times a day. pioglitazone (ACTOS) 45 mg tablet Take 1 tablet by mouth once daily. lisinopril-hydroCHLOROthiazide (ZESTORETIC) 20-12.5 mg per tablet Take 1 tablet by mouth once daily. tiZANidine (ZANAFLEX) 2 mg tablet Take 2 tablets by mouth every 8 hours as needed. (Patient not taking: Reported on 01/24/2024) Allergies, past surgical history, family history and past medical history were reviewed per this encounter. Medications were reviewed and verified. Objective BP 138/72 (BP Site: Left Arm, BP Position: Sitting, BP Cuff Size: Large Adult) Pulse 87 Temp 37C (98.6 F) (Temporal) Resp 16 Ht 160 cm (5' 3) Wt 89.1 kg (196 lb 8 oz) SpO2 98% BMI 34.81 kg/m Physical Exam Vitals reviewed. Constitutional: Appearance: [...] Assessment and Plan Encounter Diagnosis ICD-10-CM 1. Pure hypercholesterolemia E78.00 LIPID PANEL BASIC 2. Hypertension, unspecified type I10 3. 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) E11.9 pioglitazone (ACTOS) 45 mg tablet 4. Arteriosclerosis of coronary artery I25.10 5. Paroxysmal atrial fibrillation (HCC) I48.0 6. Mild intermittent asthma without complication J45.20 7. Polyarthralgia M25.50 Continue present medications. Check labs as above. Monitor blood pressure regularly. Exercise as tolerated. Maintain good diet. Follow-up in 6 months. Kali Bacon MD * Laura Lyons LPN - 01/24/2024 2:00 PM EDT Patient in the office today for a 6 month exam. 07/21/2023: Medicare Wellness Exam Refills entered Patient restarted hydrochlorothiazide 12.5 mg due to BLE, and has been taking now for 3 weeks. She also has anther rash on her arms, neck, back and some on her legs. Having stent placed tomorrow. Laura Lyons LPN January 24, 2024 1:26 PM documented in this encounterWyandot [facility] Hospital03-18-2024 History of Present illness Narrative* Kali Bacon MD - 11/01/2023 3:55 PM EDT This note was created using [employer]. Subjective Janessa Baron is a 73 year old female. She presents today for follow-up for the rash to her left shoulder region. Rashes become scabbed over. They have not shown much improvement from previous visit.The rash to her groin region has resolved. Review of Systems Constitutional: Negative. HENT: Negative. Eyes: Negative. Respiratory: Negative. Cardiovascular: Negative. Gastrointestinal: Negative. Endocrine: Negative. Genitourinary: Negative. Musculoskeletal: Negative. Skin: Negative. Allergic/Immunologic: Negative. Neurological: Negative. Hematological: Negative. Psychiatric/Behavioral: Negative. Objective BP 128/62 (BP Site: Right Arm, BP Position: Sitting, BP Cuff Size: Large Adult) Pulse 73 Temp 36.1 C (96.9 F) (Temporal) Resp 16 Ht 160 cm (5' 3) Wt 86.9 kg (191 lb 9.6 oz) SpO2 100% BMI 33.94 kg/m Physical Exam Vitals reviewed. Constitutional: Appearance: [...] Assessment and Plan Encounter Diagnosis ICD-10-CM 1. Rash R21 Rash with soap and water. Apply bacitracin. Cover with gauze. Follow-up in 3 weeks if not resolved. Kali Bacon MD * Ewa Mclain LPN - 11/01/2023 2:16 PM EDT Janessa is here today due to a recurring rash She has round red skin lesions that are itchy on her back, mostly upper back and down on her sides there is a couple of spots and then they get scabs on them Dr Bacon gave her Ketoconazole cream in the past for this same rash which helps somewhat but not all lf it has cleared up Ewa Mclain LPN November 01, 2023 2:25 PM documented in this encounterWyandot Memorial Hospital02-02-2024 NotePap Smear Specimen AdequacyFebruary 2023 4:57pmComment.Satisfactory for evaluation. Endocervical and/or squamous metaplasticcells (endocervical component)are present.[facility] A#[id number]Commun[facility] on above: Satisfactory for evaluation. Endocervical and/or squamous metaplasticcells (endocervical component)are present.09-17-2023 NotePap Smear Specimen Adequacy September 17, 2023 5:57pmComment.Satisfactory for evaluation. Endocervical and/or squamous metaplasticcells (endocervical component)are present.[facility] INTER[facility]AC[facility] A#[id number] County HospitalComment on above:Satisfactory for evaluation. Endocervical and/or squamous metaplasticcells (endocervical component)are present.09-17-2023 NotePap Smear Specimen AdequacyFebruary 2023 5:57pmComment.Satisfactory for evaluation. Endocervical and/or squamous metaplasticcells (endocervical component)are present.[facility] INTER[facility]ACED A#[id number] County HospitalCommunson [facility] on above:Satisfactory for evaluation. Endocervical and/or squamous metaplasticcells (endocervical component)are present.07-21-2023 Instructions* Patient Instructions* Kali Bacon MD - 07/21/2023 11:09 AM EST [...] review all the medicines you take, even srjp-xco-lcpnyae medicines. As you get older, the way medicines work in your body can change. Some medicines, or combinations of medicines, can make you sleepy or dizzy andcan cause you to fall. 3. Have your [...] have certain medical conditions. documented in this encounterWyandot [facility] Hospital12-06-2023 History of Present illness Narrative* Kali Bacon MD - 07/21/2023 11:00 AM EST Subjective Janessa Baron is a 72 year old female. Janessa presents today for her Medicare wellness visit. [...] Lincomycin Rash Pseudoephedrine Hives Reglan [Metoclopram* Intolerance Dqljxia-Xjg-Zev Red* Unknown Other reaction(s): Other Tequin [Gatifloxaci* [...] hydroCHLOROthiazide 12.5 mg tablet Take by mouth. yotwrtet-slngnwtxc-ssxyphhdmswdtg (CORTISPORIN) 3.5-10,000-1 mg/mL-unit/mL-% otic suspension Use 3 [...] Strip before meals and at bedtime. Use asinstructed aspirin, enteric coated (ASPIRIN, ENTERIC COATED) 81 [...] (Temporal) Resp 18 Ht 160 cm (5' 3) Wt 82.5 kg (181 lb 12.8 oz) [...] the newest values recorded on each date aredisplayed. Opioid Medications traMADol (ULTRAM) 50 mg tablet [...] with patient, and I recommended no further interventionat this time. Cognitive screening Mini Cog Score: [...] information provided - Personalized prevention plan provided * Spring Shipley LPN - 07/21/2023 10:24 AM EST [employer]INTENANCE Urine Albumin:Creatinine Ratio declined Diabetic Foot Exam declined Spirometry declined Hepatitis C Screening declined DTaP,Tdap,Td Vaccine(1 - Tdap) declined Mammogram Screening states will schedule Bone Density Screening Dilated Retinal Exam Dr. Alex Shipley LPN July 21, 2023 10:38 AM documented in this encounterWyandot Memorial Hospital11-29-2023 Telephone encounter Note * Telephone Encounter - Spring Shipley LPN - 07/14/2023 10:12 AM EST Thank you, Dr. Bacon will order lab when he sees fit. Spring Shipley LPN July 14, 2023 10:12 AM [facility]11-29-2023 Miscellaneous Notes* Telephone Encounter - Spring Shipley LPN - 07/14/2023 10:12 AM EST Thank you, Dr. Bacon will order lab when he sees fit. Spring Shipley LPN July 14, 2023 10:12 AM * Telephone Encounter - Lauren Bassett MA - 07/14/2023 9:44 AM EST Kiana Londono This is Lauren with [facility]. Pt is due for A1C, their next ov is 07/21/2023 Thanks Lauren miller, [facility] navigator) documented in this encounterWyandot Memorial Hospital11-29-2023 Telephone encounter Note * Telephone Encounter - Lauren Bassett MA - 07/14/2023 9:44 AM EST Kiana Londono This is Lauren with [facility]. Pt is due for A1C, their next ov is 07/21/2023 Thanks Lauren miller, [facility] navigator) [facility]11-27-[facility] History of Present illness Narrative* Kali Bacon MD - 07/12/2023 1:52 PM EST Subjective Janessa Baron is a 72 year old female. Janessa presents today for elevated blood pressure readings. Her hydrochlorothiazide was stopped by her superintendent recreation due to it drying out her nose [...] Lincomycin Rash Pseudoephedrine Hives Reglan [Metoclopram* Intolerance Ckawdeu-Gjc-Eoo Red* Unknown Other reaction(s): Other Tequin [Gatifloxaci* [...] ampules with saline and apply twice daily zbldopek-lfzqldgax-blmoppvgfecryf (CORTISPORIN) 3.5-10,000-1 mg/mL-unit/mL-% otic suspension Use 3 [...] Strip before meals and at bedtime. Use asinstructed aspirin, enteric coated (ASPIRIN, ENTERIC COATED) 81 [...] (Temporal) Resp 18 Ht 160 cm (5' 3) Wt 82.4 kg (181 lb 9.6 oz) [...] to Crestor due to interaction with Norvasc. Kali Bacon MD * Spring Shipley LPN - 07/12/2023 1:20 PM EST Patient in the office today for a follow up exam after being seen at [facility] on 07/10/2023 for hypertension. Lisinopril was increased to 10 mg BID instead of once daily. Patient states her BP was 196/100. Patient states that superintendent recreation informed her to stop taking Hydrochlorothiazide because it was dryingher nose out. Patient has not been taking medication for a little over a month Patient states she has a follow up with cardiology in September. Patient also has complaint of numbness in left hand up to mid back. Patient has been seeing chiropractor, and states he manipulated it and it went away but it is now back. No refills needed Spring Shipley LPN July 12, 2023 1:35 PM documented in this encounterWyandot Memorial Hospital11-25-2023 Instructions* Patient Instructions* Marva Madera APRN.CNP - 07/10/2023 11:25 AM EST ASSESSMENT/PLAN: 1. Hypertension, unspecified type - ICD9: 401.9, ICD10: I10 - Uncontrolled - Continue current medications - Increase lisinopril to 10 mg TWICE daily instead of once daily. Follow up with PCP or ash collector for further concerns. - LISINOPRIL 10 MG TABLET - Follow-up with your PCP in 3-5 days if symptoms have not improved or sooner if symptoms worsen - Discussed red flags and need for immediate medical evaluation if any occur. - Discussed supportive care treatment with fluids, rest and analgesia. - Discussed expected course of illness Marva Madera APRN.GLASS FURNACE TENDER documented in this encounterWyandot Memorial Hospital11-25-2023 History of Present illness Narrative* Marva Madera APRN.CNP - 07/10/2023 11:19 AM EST Subjective Blood Pressure Pertinent negatives include no chest pain, orthopnea, palpitations or shortness of breath. Janessa Baron is a 72 year old female [...] syndrome. She has a PCP and a ash collector. She can see her PCP the first [...] 82.6 kg (182 lb) SpO2 100% BMI 32.24kg/m PAST MEDICAL HISTORY Diagnosis Date Asthma Carotid [...] Iodinated Contrast Media, Ivp Dye [Iodine], Lincomycin, Pseudoephedrine,Reglan [Metoclopramide Hcl], Lgjgwxv-Zhf-Aiv Reductase Inhibitors, Tequin [Gatifloxacin], Doxycycline, Sulfamethoxazole, and [...] mouth three times daily. Take on empty stomachand avoid eating or drinking for 30 mins after taking. lisinopril (ZESTRIL) 10 mg tablet Take 1 tablet by mouth every afternoon. kadhaezn-udxnicgno-ugqjqivpbjjwdh (CORTISPORIN) 3.5-10,000-1 mg/mL-unit/mL-% otic suspension Use 3 [...] Strip before meals and at bedtime. Use asinstructed aspirin, enteric coated (ASPIRIN, ENTERIC COATED) 81 [...] once daily. Follow up with PCP or ash collector for further concerns. - LISINOPRIL 10 MG TABLET - Follow-up with your PCP in 3-5 days if symptoms have not improved or sooner if symptoms worsen - Discussed red flags and need for immediate medical evaluation if any occur. - Discussed supportive care treatment with fluids, rest and analgesia. - Discussed expected course of illness Marva Madera APRN.GLASS FURNACE TENDER documented in this encounterWyandot Memorial Hospital11-14-2023 Miscellaneous Notes* Telephone Encounter - Yajaira Forbes LPN - 06/29/2023 3:26 PM EST Pt notified that medication is a non covered medication and will need to purchase out of pocket. Yajaira Forbes LPN * Telephone Encounter - Yajaira Forbes LPN - 06/14/2023 9:38 AM EDT Electronic PA submitted for Lotrisone cream. Will await further response from pt's insurance. Yajaira Forbes LPN documented in this encounterWyandot Memorial Hospital11-09-2023 Instructions* Patient Instructions* Savita Miller APRN.CNP - 06/24/2023 8:48 AM [...] dermatology if no improvment documented in this encounterWyandot Memorial Hospital11-09-2023 History of Present illness Narrative* Savita Miller APRN.CNP - 06/24/2023 8:45 AM EST Images from the original note were not included. Subjective The history is provided by the patient. No metal casket assembler was used. HPI Janessa Baron is a 72 year old female [...] have confirmed and edited as necessary, the [facility] Review of Systems Constitutional: Negative for [...] for higher level of care were discussed indetail warranting prompt ER evaluation. Savita Miller APRN.YULY documented in this encounterWyandot Memorial Hospital10-28-2023 History of Present illness Narrative* Anum Davis APRN.CNP - 06/12/2023 8:22 AM EDT This note was created using [employer]. Subjective Janessa Baron is a 72 year old female. HPI patient states last Wednesday that she had went off her allergy medicine and then started with a skin rash. For the last 3 days she started noticing a itchy red rash underneath her breast and in thegroin area. She has tried slsh-xst-vlvslej creams that are not helping her much. [...] Level: 3 - Low documented in this encounterWyandot Memorial Hospital10-10-2023 Miscellaneous Notes* Telephone Encounter - Mojgan Chen LPN - 05/25/2023 8:19 AM EDT Pharmacy faxed requesting the following refill. Requested Prescriptions Pending Prescriptions Disp Refills fluticasone (FLONASE) 50 mcg/actuation nasal spray [Pharmacy Med Name: fluticasone propionate 50 mcg/actuation nasal spray,suspension] 16 g 2 Sig: Use 2 Sprays in each nostril once daily. Patient last appointment: 05/10/2023 NOV 07/21/2023 Patient Phone numbers: [phone] (home) [phone] (work) Request is for script(s) to be escript to pharmacy. Mojgan Chen LPN documented in this encounterWyandot Memorial Hospital10-06-2023 Miscellaneous Notes* Telephone Encounter - Chula Valentine APRN.CNP - 05/21/2023 11:45 AM EDT Noted and agree with both initial provider and RN encounter today * Telephone Encounter - Kaela Melchor RN - 05/21/2023 11:32 AM EDT Pt called and is notified of providers results and instructions. Pt states she was left a message and sent a [employer] message that her urine specimen was contaminated [...] I could find, which is this one. Kaela Melchor, RN * Telephone Encounter - Venice Rothman LPN - 05/20/2023 7:42 PM EDT Left message for patient with negative results and recommendations.Venice Rothman LPN * Telephone Encounter - Venice Rothman LPN - 05/18/2023 7:26 PM EDT Left message for patient to return call for results and recommendations.Venice Rothman LPN * Telephone Encounter - Venice Rothman LPN - 05/18/2023 7:26 PM EDT ----- Message from Marva Madera APRN.CNP sent at 05/18/2023 2:25 PM EDT ----- Urine culture did not show any evidence of infection. Recommend follow up with PCP to ensure hematuria has resolved. Marva Madera CNP documented in this encounterWyandot Memorial Hospital10-02-2023 Instructions* Patient Instructions* Marva Madera APRN.CNP - 05/17/2023 11:48 AM EDT ASSESSMENT/PLAN: 1. Urinary frequency - ICD9: 788.41, ICD10: R35.0 - UA DIP, URINE (POC)- normal in office, will send for culture, no medication prescribed today. - URINE CULTURE Marva Madera APRN.GLASS FURNACE TENDER documented in this encounterWyandot Memorial Hospital10-02-2023 History of Present illness Narrative* Marva Madera APRN.CNP - 05/17/2023 11:38 AM EDT Subjective UTI Associated symptoms include frequency. Pertinent negatives include no chills, no nausea, no vomiting, no hematuria and no urgency. Janessa Baron is a 72 year old female [...] kg (180 lb 9.6 oz) SpO2 99% BMI31.99 kg/m PAST MEDICAL HISTORY Diagnosis Date Asthma [...] Iodinated Contrast Media, Ivp Dye [Iodine], Lincomycin, Pseudoephedrine,Reglan [Metoclopramide Hcl], Aouctnt-Ryc-Xab Reductase Inhibitors, Tequin [Gatifloxacin], Doxycycline, Sulfamethoxazole, and Trimethoprim MEDICATIONS sucralfate (CARAFATE) 1 gram tablet^Take 1 tablet by mouth three times daily. Take on empty stomachand avoid eating or drinking for 30 mins after taking.^Disp: 90 tablet^Rfl: 11 hydroCHLOROthiazide 12.5 mg tablet^Take by mouth.^Disp: ^Rfl: lisinopril (ZESTRIL) 10 mg tablet^Take 1 tablet by mouth every afternoon.^Disp: ^Rfl: juadfoad-jfevubdfc-kicvgkwrxphlce (CORTISPORIN) 3.5-10,000-1 mg/mL-unit/mL-% otic suspension^Use 3 Drops in both ears four times daily.^Disp: 10 mL^Rfl: 0 pioglitazone (ACTOS) 45 mg tablet^Take 1 tablet by mouth once daily.^Disp: 90 tablet^Rfl: 3 fluticasone (FLONASE ALLERGY RELIEF) 50 mcg/actuation nasal spray^Use 2 Sprays in each nostril oncedaily.^Disp: 16 g^Rfl: 2 gel base no.41, bulk, [...] Strip before meals and at bedtime. Use asinstructed^Disp: 100 Each^Rfl: 3 aspirin, enteric coated (ASPIRIN, [...] is no right CVA tenderness, left CVA tendernessor guarding. Skin: General: Skin is warm and dry. Neurological: Mental Status: She is alert. ASSESSMENT/PLAN: 1. Urinary frequency - ICD9: 788.41, ICD10: R35.0 - UA DIP, URINE (POC)- normal in office, will send for culture, no medication prescribed today. - URINE CULTURE Marva Madera APRN.GLASS FURNACE TENDER documented in this encounterWyandot Memorial Hospital09-05-2023 History of Present illness Narrative* Ramses Shukla APRN.GLASS FURNACE TENDER - 04/20/2023 9:14 AM EDT DEPARTMENT OF GASTROENTEROLOGY - FOLLOW UP REASON FOR VISIT Janessa Baron is a 72 year old female who is scheduled for follow up of upper abdominal pain. HISTORY OF PRESENT ILLNESS Janessa Baron is a 72 year old female [...] malignant cells. 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 Placed on 14 days Diflucan Colon [...] Lincomycin Rash Pseudoephedrine Hives Reglan [Metoclopram* Intolerance Gcrabyv-Rtt-Wtl Red* Unknown Comment:Other reaction(s): Other Tequin [Gatifloxaci* Rash Doxycycline Unknown, Vomiting Sulfamethoxazole Unknown Trimethoprim Unknown Current Outpatient Medications Medication Sig Dispense Refill hydroCHLOROthiazide 12.5 mg tablet Take by mouth. lisinopril (ZESTRIL) 10 mg tablet Take 1 tablet by mouth every afternoon. nitrofurantoin monohydrate and macrocrystal (MACROBID) 100 mg capsule Take 1 capsule by mouth twicedaily with meals for 7 days. 14 capsule 0 pioglitazone (ACTOS) 45 mg tablet Take 1 tablet by mouth once daily. 90 tablet 3 fluticasone (FLONASE ALLERGY RELIEF) 50 mcg/actuation nasal spray Use 2 Sprays in each nostril oncedaily. 16 g 2 gel base no.41, bulk, [...] Take 1 tablet by mouth twice daily. 180tablet 3 lancets (ONE TOUCH DELICA) 33 gauge 1 Each once daily. 100 Each 3 blood sugar diagnostic (ONETOUCH ULTRA TEST) test strip 1 Strip before meals and at bedtime. Use asinstructed 100 Each 3 aspirin, enteric coated (ASPIRIN, [...] ubidecarenone (CO Q-10 ORAL) Take by mouth. kvjzymme-fqxjmtrgz-nknhxggwlnnqbc (CORTISPORIN) 3.5-10,000-1 mg/mL-unit/mL-% otic suspension Use 3 [...] to once daily dosing -Low fat diet Ramses Shukla APRN.CNP 04/20/2023 9:15 AM documented in this encounterW[facility]09[facility]23 Miscellaneous Notes* Telephone Encounter - Savita Miller APRN.CNP - 04/16/2023 12:53 PM EDT Patient has a lot allergies, offered to change to cipro, after providing Black Box warning does notto take. Since she is not having a rash, sob, throat swelling, will continue macrobid. Savita Miller APRN.CNP * Telephone Encounter - Kaela Melchor RN - 04/16/2023 12:15 PM EDT Pt called in and reports she was in [facility] yesterday and was given Macrobid for a UTI. She states a fewhours after taking the medication her mouth and [...] will send a different medication to [facility] in [place] for her. Please call and advise. documented in this encounterWyandot [facility]08-30-2023 History of Present illness Narrative* Chula Valentine APRN.GLASS FURNACE TENDER - 04/14/2023 12:18 PM EDT This note was created using NoteWriter. Subjective Janessa Baron is a 72 year old female. [...] history is provided by the patient. No metal casket assembler was used. UTI This is a new [...] Dye [Iodine], Lincomycin, Pseudoephedrine, Reglan [Metoclopramide Hcl], Rjuqnig-Axl-Dtl Reductase Inhibitors, Tequin [Gatifloxacin], Doxycycline, Sulfamethoxazole, and Trimethoprim MEDICATIONS hydroCHLOROthiazide 12.5 mg tablet^Take by mouth.^Disp: ^Rfl: lisinopril (ZESTRIL) 10 mg tablet^Take 1 tablet by mouth every afternoon.^Disp: ^Rfl: pioglitazone (ACTOS) 45 mg tablet^Take 1 tablet by mouth once daily.^Disp: 90 tablet^Rfl: 3 fluticasone (FLONASE ALLERGY RELIEF) 50 mcg/actuation nasal spray^Use 2 Sprays in each nostril oncedaily.^Disp: 16 g^Rfl: 2 gel base no.41, bulk, [...] Strip before meals and at bedtime. Use asinstructed^Disp: 100 Each^Rfl: 3 sucralfate (CARAFATE) 100 mg/mL [...] 100 mg capsule^Take 1 capsule by mouth twicedaily with meals for 7 days.^Disp: 14 capsule^Rfl: 0 yzaxdjus-kouysqpqv-mbbobipplnsikj (CORTISPORIN) 3.5-10,000-1 mg/mL-unit/mL-% otic suspension^Use 3 Drops in both ears four times daily.^Disp: 10 mL^Rfl: 0 lisinopril (ZESTRIL) 5 mg tablet^Take 1 tablet by mouth once daily.^Disp: 90 tablet^Rfl: 3 (Patientnot taking: Reported on 04/14/2023) FAMILY HISTORY Problem [...] She is obese. She is not ill-appearing, toxic- appearing or diaphoretic. Comments: Appears uncomfortable, but non [...] ICD9: 380.10, ICD10: H60.93 RX Polytrim Chula Valentine APRN.GLASS FURNACE TENDER documented in this encounterWyandot [facility]08-29-2023 Miscellaneous Notes* Telephone Encounter - Migdalia Leija - 04/13/2023 1:50 PM EDT She took the 9:00 AM that day. Thank you! * Telephone Encounter - Monica Aburto RN - 04/13/2023 1:24 PM EDT That would be fine because she could pull together all the previous records and come up with a planfor the patient even if virtual. Monica Aburto RN * Telephone Encounter - Migdalia Leija - 04/13/2023 12:57 PM EDT Ramses would you be able to see this patient in person in a VV slot? Please advise Thank you * Telephone Encounter - Monica Aburto RN - 04/13/2023 12:14 PM EDT Discussed over the phone pt is having upper abdominal bloating. She does not feel she is having anytrouble with BM's, having BM daily with use of stool softeners. She is asking for urgent appt. Advised pt she may schedule with GLASS FURNACE TENDER and would send this to scheduling. Please try and get pt in soon with whomever is available. Thank you. Monica Aburto RN * Telephone Encounter - Yajaira Maria RN - 04/13/2023 10:52 AM EDT Patient calling for an urgent appointment with [...] leave message on voicemail) documented in this encounterWy[facility]ot [facility] Hospital2023 Progress note Author Lamine Payan [facility] April 08, 2023 12:45pm Note Date/Time April 08, 2023 12 :45pm [facility] [address] [place] [address] Progress Note - Wound Care 04/08/23 1243 MR#: [id number] Acct: [id number] Name: JANESSA BARON Rep #:[id number] : 1950 72 From: Lamine li MD PCP: Dr. Kali Bacon MD Status:REG RCR Location: History of Present Illness Date of Service: 04/08/23 Chief Complaint: Bilateral Buttock Ulcer History of Wound: Ms. Baron is a 72-year-old referred to the wound center due to nonhealing bilateral buttock ulcers. 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 Sitting a lot because she was advised not to lay in bed. She states thatshe has used several products but over the last 3 weeks, started using hydrogel which was prescribed by her PCP. Some improvement with hydrogel. She states that she has also been making extra effort to keep the area clean and avoid pressure to the area. History of diabetes mellitus and her most recent A1c was 7.4. Takes a protein supplement at least daily and tries to optimize her protein intake as well. She generally feels well. No nausea, vomiting, change in bowel habits, chills or fever. Progress of Wound: No new concerns at this time. Healed. Objective Data Objective Data Vital Signs: Vital Signs Temp Pulse Resp BP O2 Del Method 97.3 F L 89 16 156/71 H Room Air 04/08/23 10:42 04/08/23 10:42 04/08/23 10:42 04/08/23 10:42 04/08/23 10:42 Oxygen Delivery Method Room Air Weight: 180 lb Body Mass Index (BMI) 31.8 Charges/Coding Visit Charges Office Visits / Consults: 52428 OV L3 Est Physical Exam Const alert, oriented x3 and no apparent distress General Appearance: cooperative, comfortable and well kempt HEENT normocephalic and head/scalp atraumatic Eyes EOMs intact bilaterally Neck full ROM and supple General: normal visual inspection Resp normal respiratory effort Effort and Inspection: able to speak in complete sentences GI soft to palpation Extremity no pedal edema Neuro oriented x3, CN's II-XII intact bilaterally, moves all extremities and no focal motor deficits Psych mental status grossly normal, thought process normal, cooperative, affect normaland speech normal Debridement Note Debridement Note Post-Debridement Measurements and Additional Note: Post-Debridement Measurements/Treatment - Nurse 1 - General Ulcer Assessment Start: 03/18/23 11:08 Freq: Status: Active Protocol: SOM Activity Type Activity Date Activity User E-sign Co-sign Detail Recorded Client Recorded Date Recorded By Document 03/18/23 11:08 [facility] [id number] 03/18/23 11:20 [facility] Document 03/25/23 10:52 [facility] [id number] 03/25/23 11:02 [facility] Document 04/08/23 10:42 [facility] [id number] 04/08/23 10:51 [facility] 03/18/23 03/25/23 04/08/23 11:08 10:52 10:42 - Today's Visit Information Type of service Follow-up Visit Follow-up Visit Follow-up Visit (Physician/GLASS FURNACE TENDER (Physician/GLASS FURNACE TENDER (Physician/GLASS FURNACE TENDER ) ) ) Arrival Mode Ambulatory, Ambulatory, Ambulatory Walker Walker Transfer Assistance None None None Transfer Assist (Other) Accompanied by Patient Identification Verified (Name & Yes Yes Yes ) Patient Requires Transmission-Based No No No Precautions Height and Weight Body Mass Index (BMI) 31.8 31.8 31.8 BMI Classification Obese Obese Obese Vital Signs Temperature (97.8 F-99.1 F) 97.3 F L 97 F L 97.3 F L Temperature Source Temporal Temporal Temporal Pulse Rate (60-100) 90 82 89 Pulse Location Monitor Monitor Monitor Respiratory Rate (12-18) 16 16 16 Respiratory rate source Observation Observation Observation Oxygen Delivery Method Room Air Room Air Room Air Blood Pressure (90/60-120/80) 162/72 H 151/70 H 156/71 H Blood Pressure Mean (mm Hg) 102 97 99 Source Monitor Monitor Monitor Position Sitting Sitting Sitting Blood Pressure Location Right Arm Right Arm Right Arm History Since Last Visit- (Skip if this is Patient's initial visit) Have you changed medications since your No No Yes last visit? Any new allergies or adverse reactions No No No Had a fall/change in ADL's that may No No No increase risk of falls Signs or symptoms of abuse and/or No No No neglect since last visit Have you been in the hospital since your Yes No No last visit? Has dressing in place as prescribed Yes Yes Yes Has compression in place as prescribed N/A N/A N/A Has offloadiing in place as prescribed N/A N/A N/A Experienced any changes in pain level or No No No management Left Footwear Regular Shoe Regular Shoe Regular Shoe Right Footwear Regular Shoe Regular Shoe Regular Shoe Pain Scale: 0-10 Numeric Is Patient Pain Free? Yes Yes Yes WC - Nurse 1 - General Ulcer Measurement Start: 03/18/23 11:08 Freq: Status: Active Protocol: Activity Type Activity Date Activity User E-sign Co-sign Detail Recorded Client Recorded Date Recorded By Document 03/18/23 11:08 [facility] [id number] 03/18/23 11:20 [facility] Document 03/25/23 10:52 [facility] [id number] 03/25/23 11:02 [facility] Document 04/08/23 10:42 [facility] [id number] 04/08/23 10:51 [facility] 03/18/23 03/25/23 04/08/23 11:08 10:52 10:42 Wound Center Nurse 1 #2- R BUTTOCK CLUSTER -Combined with other wound No No No -Current Size (cm) - Length 1.6 0 0.1 -Current Size (cm) - Width 1.4 0 0.1 -Current Size (cm) - Depth 0.1 0 0.1 -Total Square Cm 2.24 0 0.01 -Date of Last Picture (Recall this 03/18/23 03/25/23 04/08/23 field) -Photo Taken Yes Yes Yes -Epithelialization Medium 34-66% Large 67-100% Large 67-100% -Tunneling No -Undermining/Tunneling No -Circular Undermining No -Exudate Amt Medium None Present -Exudate Type Serosanguineous -Wound Margin Flat & Intact -Granulation Amt Medium (34-66%) -Granulation Quality Red -Slough/Fibrin Yes -Necrosis Amt Medium (34-66%) -Necrotic Tissue Type Adherent Slough -Texture (Yahaira-wound Skin Appearance) Assessed, Assessed, Assessed, Scarring Scarring Scarring -Moisture (Yahaira-wound Skin Appearance) Assessed Assessed Assessed -Color (Yahaira-wound Skin Appearance) Assessed, Assessed Assessed Erythema -Temperature (Yahaira-wound Skin No Abnormality No Abnormality No Abnormality Appearance) (Pt Warm) (Pt Warm) (Pt Warm) -Tenderness on Palpation (Yahaira-wound No No No Skin Appearance) -Ulcer Cleansing Rinsed/ Rinsed/ Irrigated with Irrigated with Saline Saline -Foul Odor after Cleansing No No -Anesthetic Used 5% Lidocaine 5% Lidocaine Gel Gel #1 L BUTTOCK -Combined with other wound No No No -Current Size (cm) - Length 1.1 0.1 0.1 -Current Size (cm) - Width 0.4 0.1 0.1 -Current Size (cm) - Depth 0.1 0.1 0.1 -Total Square Cm 0.44 0.01 0.01 -Date of Last Picture (Recall this 03/18/23 03/25/23 04/08/23 field) -Photo Taken Yes Yes Yes -Epithelialization Small 1-33% Large 67-100% Large 67-100% -Tunneling No No -Undermining/Tunneling No No -Circular Undermining No No -Exudate Amt Medium None Present -Exudate Type Serosanguineous -Wound Margin Distinct, Distinct, Outline Outline Attached Attached -Granulation Amt Medium (34-66%) -Granulation Quality Red -Slough/Fibrin Yes -Necrosis Amt Medium (34-66%) -Necrotic Tissue Type Adherent Slough -Texture (Yahaira-wound Skin Appearance) Assessed, Assessed, Assessed, Scarring Scarring Scarring -Moisture (Yahaira-wound Skin Appearance) Assessed Assessed Assessed -Color (Yahaira-wound Skin Appearance) Assessed, Assessed Assessed Erythema -Temperature (Yahaira-wound Skin No Abnormality No Abnormality No Abnormality Appearance) (Pt Warm) (Pt Warm) (Pt Warm) -Tenderness on Palpation (Yahaira-wound No No No Skin Appearance) -Ulcer Cleansing Rinsed/ Rinsed/ Irrigated with Irrigated with Saline Saline -Foul Odor after Cleansing No No -Anesthetic Used 5% Lidocaine 5% Lidocaine Gel Gel WC - Nurse 2 - General Ulcer CM Notes Start: 03/18/23 11:08 Freq: Status: Active Protocol: Activity Type Activity Date Activity User E-sign Co-sign Detail Recorded Client Recorded Date Recorded By Document 03/18/23 11:34 MW [id number] 03/18/23 11:39 MW Document 03/25/23 11:10 MW [id number] 03/25/23 11:12 MW Document 04/08/23 11:02 MW Desktop 04/08/23 11:04 MW 03/18/23 03/25/23 04/08/23 11:34 11:10 11:02 Wound Center Nurse 2 #2- R BUTTOCK CLUSTER -Time 11:34 11:11 11:03 -Correct Patient Yes Yes Yes -Correct Side, Site, Position Yes Yes Yes -Correct Procedure Yes Yes Yes -Procedure Performed Yes No No -Type of Procedure Debridement -Clinical Debridement Subcutaneous -Tissue Removed Subcutaneous -Post Debridement (cm) - Length 1.1 0.1 0 -Post Debridement (cm) - Width 0.3 0.1 0 -Post Debridement (cm) - Depth 0.1 0.1 0 -Total Square (Post) (cm) 0.33 0.01 0 -Area of Debridement (cm) - Length 1.1 -Area of Debridement (cm) - Width 0.3 -Total Square (Area) (cm) 0.33 -Tunneling No No -Undermining/Tunneling No -Circular Undermining No No -Wound/Ulcer Outcome Not Healed Not Healed Healed- Epithelialized -Ulcer Cleansing Rinsed/ Irrigated with Saline -Foul Odor after Cleansing No -Bioengineered Tissue No -Bleeding Controlled with Pressure -Treatment Response Procedure Tolerated Well -Offloading No -Debridement - Subq, 1st 20sq cm Yes #1 L BUTTOCK -Time 11:35 11:11 11:03 -Correct Patient Yes Yes Yes -Correct Side, Site, Position Yes Yes Yes -Correct Procedure Yes Yes Yes -Procedure Performed Yes Yes No -Type of Procedure Debridement Debridement -Clinical Debridement Subcutaneous Epidermis / Dermis -Tissue Removed Subcutaneous Epidermis -Post Debridement (cm) - Length 1.2 0.9 0 -Post Debridement (cm) - Width 0.3 0.2 0 -Post Debridement (cm) - Depth 0.1 0.1 0 -Total Square (Post) (cm) 0.36 0.18 0 -Area of Debridement (cm) - Length 1.2 0.9 -Area of Debridement (cm) - Width 0.3 0.2 -Total Square (Area) (cm) 0.36 0.18 -Tunneling No No -Undermining/Tunneling No No -Circular Undermining No No -Wound/Ulcer Outcome Not Healed Not Healed Healed- Epithelialized -Ulcer Cleansing Rinsed/ Rinsed/ Irrigated with Irrigated with Saline Saline -Foul Odor after Cleansing No No -Bioengineered Tissue No No -Bleeding Controlled with Pressure Pressure -Treatment Response Procedure Procedure Tolerated Well Tolerated Well -Offloading No No -Debridement - Open, 1st 20sq cm Yes -Debridement - Subq, 1st 20sq cm No Pain Scale: 0-10 Numeric Is Patient Pain Free? Yes Yes Yes WC - Nurse 3 - General Ulcer D/C NN Start: 03/18/23 11:08 Freq: Status: Active Protocol: Activity Type Activity Date Activity User E-sign Co-sign Detail Recorded Client Recorded Date Recorded By Document 03/18/23 11:43 MW [id number] 03/18/23 11:44 MW Document 03/25/23 11:24 DL [id number] 03/25/23 11:25 DL Document 04/08/23 11:07 MW Desktop 04/08/23 11:08 MW 03/18/23 03/25/23 04/08/23 11:43 11:24 11:07 Wound Care Center Nurse 3 #2- R BUTTOCK CLUSTER -Ulcer Cleansing Rinsed/ Rinsed/ Irrigated with Irrigated with Saline Saline -Foul Odor after Cleansing No -Negative Pressure Wound Therapy N/A -Primary Dressing Applied Mepilex Border, Mepilex Border, Mepilex Border NonAdherent NonAdherent Contact Layer, Contact Layer Promogran -Mepilex Border 1 1 1 -Promogran 1 #1 L BUTTOCK -Ulcer Cleansing Rinsed/ Rinsed/ Irrigated with Irrigated with Saline Saline -Foul Odor after Cleansing No No -Negative Pressure Wound Therapy N/A -Primary Dressing Applied NonAdherent Contact Layer, Promogran -Other Dressing promogran, mepilex mepilex mepilex -Promogran 1 Treatment Response Procedure Procedure Procedure Tolerated Well Tolerated Well Tolerated Well Pain Scale: 0-10 Numeric Is Patient Pain Free? Yes Yes Yes Teaching: Wound Center Dressing Your Wound -Person Taught Patient,Family Patient,Family -Teaching Method Discussion, Discussion, Demonstration Demonstration -Response to teaching Verbalize Verbalize understanding understanding WC - Visit Discharge Discharge Condition Stable Stable Stable Ambulatory Status Ambulatory, Ambulatory Ambulatory,Cane Walker Transportation Private Auto Private Auto Private Auto Accompanied by Medication Reconcilliation completed & No No provided to patient/care provider Clinical Summary of Care Provided Yes Yes Notes: healed, discharged from clinic Assessment/Plan Assessment/Plan (1) Pressure ulcer of right buttock, stage 2: CODE(S): L89.312 - Pressure ulcer of right buttock, stage 2 (2) Pressure ulcer of left buttock, stage 2: CODE(S): L89.322 - Pressure ulcer of left buttock, stage 2 (3) DM type 2 (diabetes mellitus, type 2): CODE(S): E11.9 - Type 2 diabetes mellitus without complications PLAN: Plan Healed. No new concerns at this time. Moisturize adequately and cover with foam dressing x 2 weeks. Continue offloading, optimal protein intake and diabetes control. Her questions were answered and she was advised to call with any furtherquestions or concerns. Discharge from the wound center. This note was generated with Beautylish dictation software. It may contain incorrectwords, spelling, and punctuation that were not noted in checking the note beforesigning. 04/08/23 1245 <Electronically signed by Lamine Payan MD> Cosigner Signature (if applicable): CC: ~ Signed [facility] Work Phone: 1(102) 659-321108-22-2023 Miscellaneous Notes* Telephone Encounter - Ewa Mclain LPN - 04/06/2023 5:02 PM EDT Patient called requesting the following refill. Requested Prescriptions Pending Prescriptions Disp Refills pioglitazone (ACTOS) 45 mg tablet 90 tablet 3 Sig: Take 1 tablet by mouth once daily. Patient last appointment: 02/22/2023 Patient Phone numbers: [phone] (home) [phone] (work) Request is for script(s) to be escript to [facility] pharmacy. Ewa Mclain LPN documented in this encounterWy[facility]ot [facility]08-17-2023 Miscellaneous Notes* Telephone Encounter - Ewa Mclain LPN - 04/01/2023 2:47 PM EDT I left a message for patient Janessa to return call to office. Ewa Mclain LPN April 01, 2023 2:47 PM * Telephone Encounter - Kali Bacon MD - 04/01/2023 2:12 PM EDT Have patient check on the prices for Ozempic, Trulicity, bydurion, or Mounjaro * Telephone Encounter - Ewa Mclain LPN - 04/01/2023 10:15 AM EDT Patient's Ross called to report they checked with insurance and Farxiga is going to cost $160 per month , so it is basically the same cost as Jardiance. Ewa Mclain LPN April 01, 2023 10:18 AM * Telephone Encounter - Ewa Mclain LPN - 03/31/2023 11:40 AM EDT I spoke with patient Janessa. I told her what Dr Bacon said in his note below. Janessa wrote down the name Farxiga and said she will contact her insurance company to see if they cover that medication. She will call back once she gets an answer. Ewa Mclain LPN March 31, 2023 11:41 AM * Telephone Encounter - Kali Bacon MD - 03/31/2023 9:31 AM EDT Not appropriate to restart Actos. Check with insurance to see if they cover Farxiga better. * Telephone Encounter - Ewa Mclain LPN - 03/30/2023 4:00 PM EDT Janessa Baron's Rody called today. : 1950 Allergies: Metoclopramide, Sulfamethoxazole-Trimethoprim, Morphine, Augmentin [Amoxicillin-Pot Clavulanate], Cefzil [Cefprozil], Clavulanic Acid, Dayquil Allergy 12-Hr, Dextromethorphan, Doxylamine, Erythromycin, Iodinated Contrast Media, Ivp Dye [Iodine], Lincomycin, Pseudoephedrine, Reglan [Metoclopramide Hcl], Qmdltiv-Acy-Ghd Reductase Inhibitors, Tequin [Gatifloxacin], Doxycycline, Sulfamethoxazole, and Trimethoprim (home) [phone] (work) [phone] (cell) Reason for call: Rody called about Janessa's diabetic medication. Patient had triple bypass surgery at [facility] earlier this year. During that time her Actos 45 mg daily was discontinued and she was put on Jardiance 10 mg daily instead. Now the Jardiance Rx has really jumped up in chahal and is $165.00 per month. Rody is asking if Dr Bacon will switch Janessa back to the Actos? Patient last appointment: 02/22/2023 The patients preferred pharmacy has been captured for this encounter? Yes [facility]. Ewa Mclain LPN documented in this encounterWy[facility]ot [facility]08-10-2023 Progress note Author Lamine Payan [facility] March 25, 2023 1:03pm Note Date/Time March 25, 2023 1: 03pm [facility] [address] [place] [address] Progress Note - Wound Care 03/25/23 1301 MR#: [id number] Acct: [id number] Name: JANESSA BARON Rep #:[id number] : 1950 72 From: Lamine li MD PCP: Dr. Kali Bacon MD Status:REG RCR Location: History of Present Illness Date of Service: 03/25/23 Chief Complaint: Bilateral Buttock Ulcer History of Wound: Ms. Baron is a 72-year-old referred to the wound center due to nonhealing bilateral buttock ulcers. 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 Sitting a lot because she was advised not to lay in bed. She states thatshe has used several products but over the last 3 weeks, started using hydrogel which was prescribed by her PCP. Some improvement with hydrogel. She states that she has also been making extra effort to keep the area clean and avoid pressure to the area. History of diabetes mellitus and her most recent A1c was 7.4. Takes a protein supplement at least daily and tries to optimize her protein intake as well. She generally feels well. No nausea, vomiting, change in bowel habits, chills or fever. Progress of Wound: No new concerns at this time. Right is largely healed, left with minimal area left. Objective Data Objective Data Vital Signs: Vital Signs Temp Pulse Resp BP O2 Del Method 97 F L 82 16 151/70 H Room Air 03/25/23 10:52 03/25/23 10:52 03/25/23 10:52 03/25/23 10:52 03/25/23 10:52 Oxygen Delivery Method Room Air Weight: 180 lb Body Mass Index (BMI) 31.8 Charges/Coding Procedures Integumentary 111xxx-113xx: 88493 Dahlia subq tissue 20 sq cm/< Physical Exam Const alert, oriented x3 and no apparent distress General Appearance: cooperative, comfortable and well kempt HEENT normocephalic and head/scalp atraumatic Eyes EOMs intact bilaterally Neck full ROM and supple General: normal visual inspection Resp normal respiratory effort Effort and Inspection: able to speak in complete sentences Cardio regular rate and regular rhythm GI soft to palpation Extremity no pedal edema Skin Wounds: wounds noted Neuro oriented x3, CN's II-XII intact bilaterally, moves all extremities and no focal motor deficits Psych mental status grossly normal, thought process normal, cooperative, affect normaland speech normal Debridement Note Debridement Note Wound debrided: Left buttock Wound Grade/Stage: Stage II Type of Debridement: Excisional debridement Anesthesia Used: 4% Lidocaine Solution Depth: Down to and including healthy tissue and in the subcutaneous layer Percentage of wound debrided: 100 Instrument Used: 3mm curette Tissue Removed: Slough and devitalized tissue Severity: Fat Layer Exposed Amount of bleeding with debridement: Mild Bleeding Controlled with: Pressure Patient tolerated procedure: Patient tolerated procedure well Post-Debridement Measurements and Additional Note: Post-Debridement Measurements/Treatment - Nurse 1 - General Ulcer Assessment Start: 03/18/23 11:08 Freq: Status: Active Protocol: SOM Activity Type Activity Date Activity User E-sign Co-sign Detail Recorded Client Recorded Date Recorded By Document 03/18/23 11:08 [facility] [id number] 03/18/23 11:20 [facility] Document 03/25/23 10:52 [facility] [id number] 03/25/23 11:02 [facility] 03/18/23 03/25/23 11:08 10:52 - Today's Visit Information Type of service Follow-up Visit Follow-up Visit (Physician/GLASS FURNACE TENDER (Physician/GLASS FURNACE TENDER ) ) Arrival Mode Ambulatory, Ambulatory, Walker Walker Transfer Assistance None None Transfer Assist (Other) Accompanied by Patient Identification Verified (Name & Yes Yes ) Patient Requires Transmission-Based No No Precautions Height and Weight Body Mass Index (BMI) 31.8 31.8 BMI Classification Obese Obese Vital Signs Temperature (97.8 F-99.1 F) 97.3 F L 97 F L Temperature Source Temporal Temporal Pulse Rate (60-100) 90 82 Pulse Location Monitor Monitor Respiratory Rate (12-18) 16 16 Respiratory rate source Observation Observation Oxygen Delivery Method Room Air Room Air Blood Pressure (90/60-120/80) 162/72 H 151/70 H Blood Pressure Mean (mm Hg) 102 97 Source Monitor Monitor Position Sitting Sitting Blood Pressure Location Right Arm Right Arm History Since Last Visit- (Skip if this is Patient's initial visit) Have you changed medications since your No No last visit? Any new allergies or adverse reactions No No Had a fall/change in ADL's that may No No increase risk of falls Signs or symptoms of abuse and/or No No neglect since last visit Have you been in the hospital since your Yes No last visit? Has dressing in place as prescribed Yes Yes Has compression in place as prescribed N/A N/A Has offloadiing in place as prescribed N/A N/A Experienced any changes in pain level or No No management Left Footwear Regular Shoe Regular Shoe Right Footwear Regular Shoe Regular Shoe Pain Scale: 0-10 Numeric Is Patient Pain Free? Yes Yes - Nurse 1 - General Ulcer Measurement Start: 03/18/23 11:08 Freq: Status: Active Protocol: Activity Type Activity Date Activity User E-sign Co-sign Detail Recorded Client Recorded Date Recorded By Document 03/18/23 11:08 [facility] [id number] 03/18/23 11:20 [facility] Document 03/25/23 10:52 [facility] [id number] 03/25/23 11:02 BMF 03/18/23 03/25/23 11:08 10:52 Wound Center Nurse 1 #2- R BUTTOCK CLUSTER -Combined with other wound No No -Current Size (cm) - Length 1.6 0 -Current Size (cm) - Width 1.4 0 -Current Size (cm) - Depth 0.1 0 -Total Square Cm 2.24 0 -Date of Last Picture (Recall this 03/18/23 03/25/23 field) -Photo Taken Yes Yes -Epithelialization Medium 34-66% Large 67-100% -Tunneling No -Undermining/Tunneling No -Circular Undermining No -Exudate Amt Medium None Present -Exudate Type Serosanguineous -Wound Margin Flat & Intact -Granulation Amt Medium (34-66%) -Granulation Quality Red -Slough/Fibrin Yes -Necrosis Amt Medium (34-66%) -Necrotic Tissue Type Adherent Slough -Texture (Yahaira-wound Skin Appearance) Assessed, Assessed, Scarring Scarring -Moisture (Yahaira-wound Skin Appearance) Assessed Assessed -Color (Yahaira-wound Skin Appearance) Assessed, Assessed Erythema -Temperature (Yahaira-wound Skin No Abnormality No Abnormality Appearance) (Pt Warm) (Pt Warm) -Tenderness on Palpation (Yahaira-wound No No Skin Appearance) -Ulcer Cleansing Rinsed/ Rinsed/ Irrigated with Irrigated with Saline Saline -Foul Odor after Cleansing No No -Anesthetic Used 5% Lidocaine 5% Lidocaine Gel Gel #1 L BUTTOCK -Combined with other wound No No -Current Size (cm) - Length 1.1 0.1 -Current Size (cm) - Width 0.4 0.1 -Current Size (cm) - Depth 0.1 0.1 -Total Square Cm 0.44 0.01 -Date of Last Picture (Recall this 03/18/23 03/25/23 field) -Photo Taken Yes Yes -Epithelialization Small 1-33% Large 67-100% -Tunneling No No -Undermining/Tunneling No No -Circular Undermining No No -Exudate Amt Medium None Present -Exudate Type Serosanguineous -Wound Margin Distinct, Distinct, Outline Outline Attached Attached -Granulation Amt Medium (34-66%) -Granulation Quality Red -Slough/Fibrin Yes -Necrosis Amt Medium (34-66%) -Necrotic Tissue Type Adherent Slough -Texture (Yahaira-wound Skin Appearance) Assessed, Assessed, Scarring Scarring -Moisture (Yahaira-wound Skin Appearance) Assessed Assessed -Color (Yahaira-wound Skin Appearance) Assessed, Assessed Erythema -Temperature (Yahaira-wound Skin No Abnormality No Abnormality Appearance) (Pt Warm) (Pt Warm) -Tenderness on Palpation (Yahaira-wound No No Skin Appearance) -Ulcer Cleansing Rinsed/ Rinsed/ Irrigated with Irrigated with Saline Saline -Foul Odor after Cleansing No No -Anesthetic Used 5% Lidocaine 5% Lidocaine Gel Gel WC - Nurse 2 - General Ulcer CM Notes Start: 03/18/23 11:08 Freq: Status: Active Protocol: Activity Type Activity Date Activity User E-sign Co-sign Detail Recorded Client Recorded Date Recorded By Document 03/18/23 11:34 MW [id number] 03/18/23 11:39 MW Document 03/25/23 11:10 MW [id number] 03/25/23 11:12 MW 03/18/23 03/25/23 11:34 11:10 Wound Center Nurse 2 #2- R BUTTOCK CLUSTER -Time 11:11 -Correct Patient Yes Yes -Correct Side, Site, Position Yes Yes -Correct Procedure Yes Yes -Procedure Performed Yes No -Type of Procedure Debridement -Clinical Debridement Subcutaneous -Tissue Removed Subcutaneous -Post Debridement (cm) - Length 1.1 0.1 -Post Debridement (cm) - Width 0.3 0.1 -Post Debridement (cm) - Depth 0.1 0.1 -Total Square (Post) (cm) 0.33 0.01 -Area of Debridement (cm) - Length 1.1 -Area of Debridement (cm) - Width 0.3 -Total Square (Area) (cm) 0.33 -Tunneling No No -Undermining/Tunneling No -Circular Undermining No No -Wound/Ulcer Outcome Not Healed Not Healed -Ulcer Cleansing Rinsed/ Irrigated with Saline -Foul Odor after Cleansing No -Bioengineered Tissue No -Bleeding Controlled with Pressure -Treatment Response Procedure Tolerated Well -Offloading No -Debridement - Subq, 1st 20sq cm Yes #1 L BUTTOCK -Time 11:35 11:11 -Correct Patient Yes Yes -Correct Side, Site, Position Yes Yes -Correct Procedure Yes Yes -Procedure Performed Yes Yes -Type of Procedure Debridement Debridement -Clinical Debridement Subcutaneous Epidermis / Dermis -Tissue Removed Subcutaneous Epidermis -Post Debridement (cm) - Length 1.2 0.9 -Post Debridement (cm) - Width 0.3 0.2 -Post Debridement (cm) - Depth 0.1 0.1 -Total Square (Post) (cm) 0.36 0.18 -Area of Debridement (cm) - Length 1.2 0.9 -Area of Debridement (cm) - Width 0.3 0.2 -Total Square (Area) (cm) 0.36 0.18 -Tunneling No No -Undermining/Tunneling No No -Circular Undermining No No -Wound/Ulcer Outcome Not Healed Not Healed -Ulcer Cleansing Rinsed/ Rinsed/ Irrigated with Irrigated with Saline Saline -Foul Odor after Cleansing No No -Bioengineered Tissue No No -Bleeding Controlled with Pressure Pressure -Treatment Response Procedure Procedure Tolerated Well Tolerated Well -Offloading No No -Debridement - Open, 1st 20sq cm Yes -Debridement - Subq, 1st 20sq cm No Pain Scale: 0-10 Numeric Is Patient Pain Free? Yes Yes - Nurse 3 - General Ulcer D/C NN Start: 03/18/23 11:08 Freq: Status: Active Protocol: Activity Type Activity Date Activity User E-sign Co-sign Detail Recorded Client Recorded Date Recorded By Document 03/18/23 11:43 MW [id number] 03/18/23 11:44 MW Document 03/25/23 11:24 DL [id number] 03/25/23 11:25 DL 03/18/23 03/25/23 11:43 11:24 Wound Care Center Nurse 3 #2- R BUTTOCK CLUSTER -Ulcer Cleansing Rinsed/ Rinsed/ Irrigated with Irrigated with Saline Saline -Foul Odor after Cleansing No -Negative Pressure Wound Therapy N/A -Primary Dressing Applied Mepilex Border, Mepilex Border, NonAdherent NonAdherent Contact Layer, Contact Layer Promogran -Mepilex Border 1 1 -Promogran 1 #1 L BUTTOCK -Ulcer Cleansing Rinsed/ Rinsed/ Irrigated with Irrigated with Saline Saline -Foul Odor after Cleansing No No -Negative Pressure Wound Therapy N/A -Primary Dressing Applied NonAdherent Contact Layer, Promogran -Other Dressing promogran, mepilex mepilex -Promogran 1 Treatment Response Procedure Procedure Tolerated Well Tolerated Well Pain Scale: 0-10 Numeric Is Patient Pain Free? Yes Yes Teaching: Wound Center Dressing Your Wound -Person Taught Patient,Family -Teaching Method Discussion, Demonstration -Response to teaching Verbalize understanding WC - Visit Discharge Discharge Condition Stable Stable Ambulatory Status Ambulatory, Ambulatory Walker Transportation Private Auto Private Auto Accompanied by Medication Reconcilliation completed & No provided to patient/care provider Clinical Summary of Care Provided Yes Assessment/Plan Assessment/Plan (1) Pressure ulcer of right buttock, stage 2: CODE(S): L89.312 - Pressure ulcer of right buttock, stage 2 (2) Pressure ulcer of left buttock, stage 2: CODE(S): L89.322 - Pressure ulcer of left buttock, stage 2 (3) DM type 2 (diabetes mellitus, type 2): CODE(S): E11.9 - Type 2 diabetes mellitus without complications PLAN: Plan Debridement done as documented above, procedure was well-tolerated. Right is healed, left with minimal area left. Continue Promogran, cover with Adaptic andfoam dressing, change daily to twice daily depending on drainage. Continue offloading, optimal protein intake and diabetes control. Her questions were answered and she was advised to call with any further questions or concerns. Follow-up in 2 weeks or sooner if needed. This note was generated with [employer] software. It may contain incorrectwords, spelling, and punctuation that were not noted in checking the note beforesigning. 03/25/23 1303 <Electronically signed by Lamine Payan MD> Cosigner Signature (if applicable): CC: ~ Signed [facility] Work Phone: 1(354) 778-444808-03-2023 Progress note Author Lamine Payan [facility] March 18, 2023 12:35pm Note Date/Time March 18, 2023 12: 35pm [facility] [address] [place] [id number] Progress Note - Wound Care 03/18/23 1231 MR#: [id number] Acct: [id number] Name: JANESSA BARON Rep #:[id number] 1 : 1950 72 From: Lamine li MD PCP: Dr. Kali Bacon MD Status:REG R Location: History of Present Illness Date of Service: 03/18/23 Chief Complaint: Bilateral Buttock Ulcer History of Wound: Ms. Baron is a 72-year-old referred to the wound center due to nonhealing bilateral buttock ulcers. 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 Sitting a lot because she was advised not to lay in bed. She states thatshe has used several products but over the last 3 weeks, started using hydrogel which was prescribed by her PCP. Some improvement with hydrogel. She states that she has also been making extra effort to keep the area clean and avoid pressure to the area. History of diabetes mellitus and her most recent A1c was 7.4. Takes a protein supplement at least daily and tries to optimize her protein intake as well. She generally feels well. No nausea, vomiting, change in bowel habits, chills or fever. Progress of Wound: No new concerns at this time. Some improvement noted. Has been trying to offloadas much as possible. Objective Data Objective Data Vital Signs: Vital Signs Temp Pulse Resp BP O2 Del Method 97.3 F L 90 16 162/72 H Room Air 03/18/23 11:08 03/18/23 11:08 03/18/23 11:08 03/18/23 11:08 03/18/23 11:08 Oxygen Delivery Method Room Air Weight: 180 lb Body Mass Index (BMI) 31.8 Charges/Coding Procedures Integumentary 111xxx-113xx: 04254 Dahlia subq tissue 20 sq cm/< Physical Exam Const alert, oriented x3 and no apparent distress General Appearance: cooperative, comfortable and well kempt HEENT normocephalic and head/scalp atraumatic Eyes EOMs intact bilaterally Neck full ROM and supple General: normal visual inspection Resp normal respiratory effort Effort and Inspection: able to speak in complete sentences Cardio regular rate and regular rhythm GI soft to palpation Extremity no pedal edema Skin Wounds: wounds noted Neuro oriented x3, CN's II-XII intact bilaterally, moves all extremities and no focal motor deficits Psych mental status grossly normal, thought process normal, cooperative, affect normaland speech normal Debridement Note Debridement Note Wound debrided: Left buttock Wound Grade/Stage: Stage II Type of Debridement: Excisional debridement Anesthesia Used: 4% Lidocaine Solution Depth: Down to and including healthy tissue and in the subcutaneous layer Percentage of wound debrided: 100 Instrument Used: 3mm curette Tissue Removed: Slough and devitalized tissue Severity: Fat Layer Exposed Amount of bleeding with debridement: Mild Bleeding Controlled with: Pressure Patient tolerated procedure: Patient tolerated procedure well Post-Debridement Measurements and Additional Note: Post-Debridement Measurements/Treatment - Nurse 1 - General Ulcer Assessment Start: 03/18/23 11:08 Freq: Status: Active Protocol: SOM Activity Type Activity Date Activity User E-sign Co-sign Detail Recorded Client Recorded Date Recorded By Document 03/18/23 11:08 [facility] [id number] 03/18/23 11:20 [facility] 03/18/23 11:08 - Today's Visit Information Type of service Follow-up Visit (Physician/GLASS FURNACE TENDER ) Arrival Mode Ambulatory, Walker Transfer Assistance None Accompanied by Patient Identification Verified (Name & Yes ) Patient Requires Transmission-Based No Precautions Height and Weight Body Mass Index (BMI) 31.8 BMI Classification Obese Vital Signs Temperature (97.8 F-99.1 F) 97.3 F L Temperature Source Temporal Pulse Rate (60-100) 90 Pulse Location Monitor Respiratory Rate (12-18) 16 Respiratory rate source Observation Oxygen Delivery Method Room Air Blood Pressure (90/60-120/80) 162/72 H Blood Pressure Mean (mm Hg) 102 Source Monitor Position Sitting Blood Pressure Location Right Arm History Since Last Visit- (Skip if this is Patient's initial visit) Have you changed medications since your No last visit? Any new allergies or adverse reactions No Had a fall/change in ADL's that may No increase risk of falls Signs or symptoms of abuse and/or No neglect since last visit Have you been in the hospital since your Yes last visit? Has dressing in place as prescribed Yes Has compression in place as prescribed N/A Has offloadiing in place as prescribed N/A Experienced any changes in pain level or No management Left Footwear Regular Shoe Right Footwear Regular Shoe Pain Scale: 0-10 Numeric Is Patient Pain Free? Yes WC - Nurse 1 - General Ulcer Measurement Start: 03/18/23 11:08 Freq: Status: Active Protocol: Activity Type Activity Date Activity User E-sign Co-sign Detail Recorded Client Recorded Date Recorded By Document 03/18/23 11:08 [facility] [id number] 03/18/23 11:20 [facility] 03/18/23 11:08 Wound Center Nurse 1 #2- R BUTTOCK CLUSTER -Combined with other wound No -Current Size (cm) - Length 1.6 -Current Size (cm) - Width 1.4 -Current Size (cm) - Depth 0.1 -Total Square Cm 2.24 -Date of Last Picture (Recall this 03/18/23 field) -Photo Taken Yes -Epithelialization Medium 34-66% -Tunneling No -Undermining/Tunneling No -Circular Undermining No -Exudate Amt Medium -Exudate Type Serosanguineous -Wound Margin Flat & Intact -Granulation Amt Medium (34-66%) -Granulation Quality Red -Slough/Fibrin Yes -Necrosis Amt Medium (34-66%) -Necrotic Tissue Type Adherent Slough -Texture (Yahaira-wound Skin Appearance) Assessed, Scarring -Moisture (Yahaira-wound Skin Appearance) Assessed -Color (Yahaira-wound Skin Appearance) Assessed, Erythema -Temperature (Yahaira-wound Skin No Abnormality Appearance) (Pt Warm) -Tenderness on Palpation (Yahaira-wound No Skin Appearance) -Ulcer Cleansing Rinsed/ Irrigated with Saline -Foul Odor after Cleansing No -Anesthetic Used 5% Lidocaine Gel #1 L BUTTOCK -Combined with other wound No -Current Size (cm) - Length 1.1 -Current Size (cm) - Width 0.4 -Current Size (cm) - Depth 0.1 -Total Square Cm 0.44 -Date of Last Picture (Recall this 03/18/23 field) -Photo Taken Yes -Epithelialization Small 1-33% -Tunneling No -Undermining/Tunneling No -Circular Undermining No -Exudate Amt Medium -Exudate Type Serosanguineous -Wound Margin Distinct, Outline Attached -Granulation Amt Medium (34-66%) -Granulation Quality Red -Slough/Fibrin Yes -Necrosis Amt Medium (34-66%) -Necrotic Tissue Type Adherent Slough -Texture (Yahaira-wound Skin Appearance) Assessed, Scarring -Moisture (Yahaira-wound Skin Appearance) Assessed -Color (Yahaira-wound Skin Appearance) Assessed, Erythema -Temperature (Yahaira-wound Skin No Abnormality Appearance) (Pt Warm) -Tenderness on Palpation (Yahaira-wound No Skin Appearance) -Ulcer Cleansing Rinsed/ Irrigated with Saline -Foul Odor after Cleansing No -Anesthetic Used 5% Lidocaine Gel WC - Nurse 2 - General Ulcer CM Notes Start: 03/18/23 11:08 Freq: Status: Active Protocol: Activity Type Activity Date Activity User E-sign Co-sign Detail Recorded Client Recorded Date Recorded By Document 03/18/23 11:34 MW [id number] 03/18/23 11:39 MW 03/18/23 11:34 Wound Center Nurse 2 #2- R BUTTOCK CLUSTER -Time 11:34 -Correct Patient Yes -Correct Side, Site, Position Yes -Correct Procedure Yes -Procedure Performed Yes -Type of Procedure Debridement -Clinical Debridement Subcutaneous -Tissue Removed Subcutaneous -Post Debridement (cm) - Length 1.1 -Post Debridement (cm) - Width 0.3 -Post Debridement (cm) - Depth 0.1 -Total Square (Post) (cm) 0.33 -Area of Debridement (cm) - Length 1.1 -Area of Debridement (cm) - Width 0.3 -Total Square (Area) (cm) 0.33 -Tunneling No -Undermining/Tunneling No -Circular Undermining No -Wound/Ulcer Outcome Not Healed -Ulcer Cleansing Rinsed/ Irrigated with Saline -Foul Odor after Cleansing No -Bioengineered Tissue No -Bleeding Controlled with Pressure -Treatment Response Procedure Tolerated Well -Offloading No -Debridement - Subq, 1st 20sq cm Yes #1 L BUTTOCK -Time 11:35 -Correct Patient Yes -Correct Side, Site, Position Yes -Correct Procedure Yes -Procedure Performed Yes -Type of Procedure Debridement -Clinical Debridement Subcutaneous -Tissue Removed Subcutaneous -Post Debridement (cm) - Length 1.2 -Post Debridement (cm) - Width 0.3 -Post Debridement (cm) - Depth 0.1 -Total Square (Post) (cm) 0.36 -Area of Debridement (cm) - Length 1.2 -Area of Debridement (cm) - Width 0.3 -Total Square (Area) (cm) 0.36 -Tunneling No -Undermining/Tunneling No -Circular Undermining No -Wound/Ulcer Outcome Not Healed -Ulcer Cleansing Rinsed/ Irrigated with Saline -Foul Odor after Cleansing No -Bioengineered Tissue No -Bleeding Controlled with Pressure -Treatment Response Procedure Tolerated Well -Offloading No -Debridement - Subq, 1st 20sq cm No Pain Scale: 0-10 Numeric Is Patient Pain Free? Yes WC - Nurse 3 - General Ulcer D/C NN Start: 03/18/23 11:08 Freq: Status: Active Protocol: Activity Type Activity Date Activity User E-sign Co-sign Detail Recorded Client Recorded Date Recorded By Document 03/18/23 11:43 MW [id number] 03/18/23 11:44 MW 03/18/23 11:43 Wound Care Center Nurse 3 #2- R BUTTOCK CLUSTER -Ulcer Cleansing Rinsed/ Irrigated with Saline -Foul Odor after Cleansing No -Negative Pressure Wound Therapy N/A -Primary Dressing Applied Mepilex Border, NonAdherent Contact Layer, Promogran -Mepilex Border 1 -Promogran 1 #1 L BUTTOCK -Ulcer Cleansing Rinsed/ Irrigated with Saline -Foul Odor after Cleansing No -Negative Pressure Wound Therapy N/A -Other Dressing promogran, mepilex Treatment Response Procedure Tolerated Well Pain Scale: 0-10 Numeric Is Patient Pain Free? Yes Teaching: Wound Center Dressing Your Wound -Person Taught Patient,Family -Teaching Method Discussion, Demonstration -Response to teaching Verbalize understanding WC - Visit Discharge Discharge Condition Stable Ambulatory Status Ambulatory, Walker Transportation Private Auto Accompanied by Medication Reconcilliation completed & No provided to patient/care provider Clinical Summary of Care Provided Yes Additional Wound Wound debrided: Right buttock cluster Wound Grade/Stage: Stage II Type of Debridement: Excisional debridement Anesthesia Used: 5% Lidocaine Gel Depth: Down to and including healthy tissue and in the subcutaneous layer Percentage of wound debrided: 100 Instrument Used: 3mm curette Tissue Removed: Slough and devitalized tissue Severity: Fat Layer Exposed Amount of bleeding with debridement: Mild Bleeding Controlled with: Pressure Patient tolerated procedure: Patient tolerated procedure well Assessment/Plan Assessment/Plan (1) Pressure ulcer of right buttock, stage 2: CODE(S): L89.312 - Pressure ulcer of right buttock, stage 2 (2) Pressure ulcer of left buttock, stage 2: CODE(S): L89.322 - Pressure ulcer of left buttock, stage 2 (3) DM type 2 (diabetes mellitus, type 2): CODE(S): E11.9 - Type 2 diabetes mellitus without complications PLAN: Plan Debridement done as documented above, procedure was well-tolerated. Some improvement noted. Continue Promogran, cover with Adaptic and foam dressing, change daily to twice daily depending on drainage. Continue offloading, optimalprotein intake and diabetes control. Her questions were answered and she was advised to call with any further questions or concerns. Follow-up in a week or sooner if needed. 03/18/23 6595 <Electronically signed by Lamine Payan MD> Cosigner Signature (if applicable): CC: ~ Signed [facility] Work Phone: [phone] 439-293207-27-2023 History and physical note Author Lamine Payan [facility] March 11, 2023 12:38pm Note Date/Time March 11, 2023 11:3 6am [facility] [address] [place] [address] [place] [address] H&P Exam - Wound Care 03/11/23 1135 MR#: [id number] Acct: [id number] Name: JANESSA BARON Rep #:[id number] 4 : 1950 72 From: Lamine li MD PCP: Dr. Kali Bacon MD Status:REG RCR Location: History of Present Illness Date of Service: 03/11/23 Chief Complaint: Bilateral Buttock Ulcer History of Wound: Ms. Baron is a 72-year-old referred to the wound center due to nonhealing bilateral buttock ulcers. 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 Sitting a lot because she was advised not to lay in bed. She states thatshe has used several products but over the last 3 weeks, started using hydrogel which was prescribed by her PCP. Some improvement with hydrogel. She states that she has also been making extra effort to keep the area clean and avoid pressure to the area. History of diabetes mellitus and her most recent A1c was 7.4. Takes a protein supplement at least daily and tries to optimize her protein intake as well. She generally feels well. No nausea, vomiting, change in bowel habits, chills or fever. [facility] Medical History (Updated 03/11/23 @ 12:[address] Lamine Payan MD) Arthritis Asthma Carotid stenosis Diabetes Gastrointestinal problem H/o difficulty anesthesia Hiatal hernia High triglycerides Hyperlipidemia Hypertension Mass of both breasts on mammogram Postoperative atrial fibrillation Pressure ulcer of left buttock, stage 2 Pressure ulcer of right buttock, stage 2 Stomach inflammation Home Medications budesonide-formoterol HFA 160 mcg-4.5 mcg/actuation aerosol inhaler 2 puff inhalation BID PRN Asthma 05/21/16 [History Last Taken 05/21/16] montelukast 10 mg tablet 10 mg PO DAILY 05/21/16 [History Last Taken 05/21/16] simvastatin 20 mg tablet 40 mg PO DAILY 05/21/16 [History Last Taken 05/21/16] cetirizine 10 mg capsule (Zyrtec) 10 mg PO DAILY PRN allergy symptoms 05/18/18 [History Last Taken Unknown] multivitamin,ax-hwuc-owaeanpl (Complete Multivitamin tablet) 1 tab PO DAILY 05/18/18 [History Last Taken Unknown] Al hyd-Mg tr-alg ac-sod bicarb 80 mg-14.2 mg chewable tablet (Gaviscon) 1 tab PODAILY PRN GAS 05/22/19 [History Last Taken Unknown] ascorbic acid (vitamin C) 500 mg tablet 500 mg PO DAILY 05/22/19 [History Last Taken Unknown] coenzyme Q10 75 mg capsule (Ultra CoQ10) 100 mg PO DAILY 05/22/19 [History Last Taken Unknown] metformin 1,000 mg 24 hr tablet,extended release 1,000 mg PO BID 05/22/19 [History Last Taken Unknown] albuterol sulfate 90 mcg/actuation aerosol inhaler 2 puff inhalation Q6H PRN Shortness Of Breath Or Wheezing 11/04/22 [History Last Taken Unknown] omeprazole 40 mg capsule,delayed release 20 mg PO BID 11/04/22 [History Last Taken Unknown] aspirin 81 mg tablet,delayed release (Adult Low Dose Aspirin) 81 mg PO DAILY 12/21/22 [History Last Taken Unknown] empagliflozin 10 mg tablet (Jardiance) 10 mg PO DAILY 12/21/22 [History Last Taken Unknown] lisinopril 5 mg tablet 5 mg PO DAILY 12/21/22 [History Last Taken 01/04/23 16:30] metoprolol tartrate 25 mg tablet 25 mg PO BID 12/21/22 [History Last Taken 01/04/23 16:30] tramadol 50 mg tablet 50 mg PO TID PRN Pain 01/04/23 [History Last Taken Unknown] budesonide-formoterol HFA 160 mcg-4.5 mcg/actuation aerosol inhaler (Symbicort) 1 inh inhalation BID PRN SOB 03/11/23 [History Last Taken Unknown] fluticasone propionate 50 mcg/actuation nasal spray,suspension (Flonase Allergy Relief) 2 spray intranasal DAILY 03/11/23 [History Last Taken Unknown] glimepiride 4 mg tablet (Amaryl) 4 mg PO DAILY 03/11/23 [History Last Taken Unknown] melatonin 5 mg capsule 5 mg PO DAILY 03/11/23 [History Last Taken Unknown] omega 7-nll-amb-fish oil 300 mg-1,000 mg capsule (Fish Oil) 1 cap PO DAILY 03/11/23 [History Last Taken Unknown] sucralfate 1 gram tablet (Carafate) 1 g PO TID 03/11/23 [History Last Taken Unknown] Allergy/AdvReac Type Severity Reaction Status Date / Time doxycycline Allergy Mild unknown Verified 03/11/23 11:15 sulfamethoxazole Allergy Mild unknown Verified 03/11/23 11:15 [From Bactrim] trimethoprim [From Bactrim] Allergy Mild unknown Verified 03/11/23 11:15 acetaminophen [From NyQuil] Allergy Hives Verified 03/11/23 11:15 amoxicillin [From Augmentin] Allergy Hives Verified 03/11/23 11:15 cefprozil [From Cefzil] Allergy Hives Verified 03/11/23 11:15 clavulanic acid Allergy Hives Verified 03/11/23 11:15 [From Augmentin] dextromethorphan Allergy Hives Verified 03/11/23 11:15 [From NyQuil] doxylamine [From NyQuil] Allergy Hives Verified 03/11/23 11:15 erythromycin base Allergy Hives Verified 03/11/23 11:15 gatifloxacin [From Tequin] Allergy Hives Verified 03/11/23 11:15 ibuprofen Allergy Other Verified 03/11/23 11:15 [From DayQuil Sinus Pressure/Pain] Iodinated Contrast Media Allergy Hives Verified 03/11/23 11:15 [CONTRASTS] lincomycin Allergy Hives Verified 03/11/23 11:15 metoclopramide [From Reglan] Allergy Other Verified 03/11/23 11:15 pseudoephedrine [From NyQuil] Allergy Hives Verified 03/11/23 11:15 Dopwgyr-TAF-SiV Reductase Allergy Other Verified 01/25/23 12:56 Inhibitor morphine AdvReac Intermediate tachycardia Verified 01/25/23 12:56 Family History Father No problems noted. Mother CVA (cerebral vascular accident) Heart disease Sister Colon cancer Diabetes Brother Thyroid disorder Thyroid cancer Sister Cancer vaginal Diabetes Brother Diabetes Surgical History fallopian tube surgery H/O oophorectomy H/O tubal ligation History of coronary artery bypass graft x 3 (~11/26/22) History of ear surgery Hx of cholecystectomy Social History household members: spouse housing: house Smoking Status: Never smoker alcohol intake: never substance use type: does not use caffeine: Yes what type of physical activity do you participate in: walking frequency: 3-4 times per week seatbelt use: always do you feel safe at home: Yes additional social history: Rody Patient and both retired ROS Constitutional Constitutional: Denies change in weight, daytime sleepiness, fatigue, headache(s), increased appetite, lethargy, malaise or night sweats Eyes Eyes: Denies change in eye color, change in vision, discharge from eye(s), discongugate gaze, double vision, dry eyes or erythema ENT HEENT: Denies dysphagia, epistaxis, facial pain, halitosis, headache(s), hearingloss, hoarseness or lip swelling Cardiovascular Cardiovascular: Denies chest pain at rest, chest pain with activity, claudication, clubbing, cold extremities, cyanosis or dyspnea at rest Respiratory/Chest Respiratory/Chest: Denies difficulty clearing secretions, excessive phlegm production, hemoptysis, hoarseness, inability to speak or pain on inspiration Gastrointestinal Gastrointestinal: Denies change in bowel habits, chewing difficulty, cramping, diarrhea, dry heaves, dyspepsia, dysphagia or early satiety Genitourinary Genitourinary: Denies abdominal discomfort, burning urination or flank pain Musculoskeletal Musculoskeletal: Denies difficulty walking, extremity pain, muscle cramps, muscle spasms, muscle weakness or neck pain Integumentary Integumentary: Reports skin ulcer; Denies bleeding lesions, change in pigmentation, dry skin, furuncle, jaundice or skin swelling Neurologic Neurologic: Denies behavior changes, burning sensations, convulsions, focal weakness, frequent falls, lack of coordination, loss of vision or memory loss Psychiatric Psychiatric: Denies behavioral changes, change in appetite, cognitive impairment, confusion, difficulty concentrating, hallucinations, irritability ormemory loss Endocrine Endocrinology: Denies cold intolerance, deepening of the voice, excessive sweating, flushing, increase in ring/shoe/hat size, palpitations or polyphagia Allergic/Immunologic Allergic/Immunologic: Denies lip swelling, seasonal rhinorrhea, throat swelling,tongue swelling, eczemia or wheezing Vital Signs Vital Signs Vital Signs: 03/11/23 10:17 Temperature 97 F L Temperature Source Temporal Pulse Rate 87 Respiratory Rate 16 Blood Pressure 176/83 H Blood Pressure Mean 114 Blood Pressure Source Monitor Blood Pressure Position Sitting Blood Pressure Location Left Arm Oxygen Delivery Method Room Air Weight Weight: 180 lb Body Mass Index (BMI) 31.8 Physical Exam Const alert, oriented x3 and no apparent distress General Appearance: cooperative, comfortable and well kempt HEENT normocephalic and head/scalp atraumatic Eyes EOMs intact bilaterally Neck full ROM and supple General: normal visual inspection Resp normal respiratory effort and normal air movement Effort and Inspection: able to speak in complete sentences Cardio regular rate and regular rhythm GI soft to palpation, non-tender and non-distended Extremity no pedal edema Skin Wounds: wounds noted Neuro oriented x3, CN's II-XII intact bilaterally, moves all extremities and no focal motor deficits Psych mental status grossly normal, thought process normal, cooperative, affect normaland speech normal Debridement Note Debridement Note Wound debrided: Left buttock Wound Grade/Stage: Stage II Type of Debridement: Excisional debridement Anesthesia Used: 4% Lidocaine Solution Depth: Down to and including healthy tissue and in the subcutaneous layer Percentage of wound debrided: 100 Instrument Used: 3mm curette Tissue Removed: Slough and devitalized tissue Severity: Fat Layer Exposed Amount of bleeding with debridement: Mild Bleeding Controlled with: Pressure Patient tolerated procedure: Patient tolerated procedure well Post-Debridement Measurements and Additional Note: Post-Debridement Measurements/Treatment - Nurse 1 - General Ulcer Assessment Start: 03/11/23 10:15 Freq: Status: Active Protocol: SOM Activity Type Activity Date Activity User E-sign Co-sign Detail Recorded Client Recorded Date Recorded By Document 03/11/23 10:17 [facility] [id number] 03/11/23 10:35 [facility] 03/11/23 10:17 - Today's Visit Information Type of service Initial Visit Arrival Mode Ambulatory, Walker Transfer Assistance None Accompanied by Patient Identification Verified (Name & Yes ) Patient Requires Transmission-Based No Precautions Finger Stick Blood Sugar(mg/dl) (if 160's indicated): Blood Sugar Stated by Patient Height and Weight Height 5 ft 3 in Weight 180 lb Weight in Pounds 180.0 lbs Body Mass Index (BMI) 31.8 BMI Classification Obese BSA - Shania 1.85 Vital Signs Temperature (97.8 F-99.1 F) 97 F L Temperature Source Temporal Pulse Rate (60-100) 87 Pulse Location Monitor Respiratory Rate (12-18) 16 Respiratory rate source Observation Oxygen Delivery Method Room Air Blood Pressure (90/60-120/80) 176/83 H Blood Pressure Mean 114 Source Monitor Position Sitting Blood Pressure Location Left Arm History Since Last Visit- (Skip if this is Patient's initial visit) Left Footwear Regular Shoe Right Footwear Regular Shoe Pain Scale: 0-10 Numeric Is Patient Pain Free? Yes Communication Assessment Preferred language Frisian Quiller Operator Required No Able to Read Yes Able to Write Yes Communication Tools None Right Hearing Abillity Normal Left Hearing Abillity Normal Visual Assistive Devices None Teaching Assessment Preferences Verbal,Written, Audio/Visual, Demonstration Barriers to Learning None Readiness To Learn Excellent Willingness to Engage in Self Management High Activies Readiness to Engage in Self Management High Activities Anxiety Level Calm Cooperation Cooperative Perception Coherent Interest in Health Problem Asks Questions Education Importance Acknowledges Need Does Patient Smoke tobacco or other No substances Is Patient Diabetic Yes Functional Assessment Recent Decline in Ability to Perform Denies Any Declines Culture/Methodist/Cardiac Cath Technician Cultural/Methodist Needs that may affect No Treatment Plan Teaching: Wound Center *Welcome to the Wound Center -Person Taught Patient, Significant Other -Teaching Method Discussion -Response to teaching Verbalize understanding Welcome to the Wound Care Center Frisian WC - Nurse 1 - General Ulcer Measurement Start: 03/11/23 10:15 Freq: Status: Active Protocol: Activity Type Activity Date Activity User E-sign Co-sign Detail Recorded Client Recorded Date Recorded By Document 03/11/23 10:17 [facility] [id number] 03/11/23 10:35 [facility] 03/11/23 10:17 Wound Center Nurse 1 #2- R BUTTOCK CLUSTER -Combined with other wound No -Current Size (cm) - Length 1.7 -Current Size (cm) - Width 1.8 -Current Size (cm) - Depth 0.1 -Total Square Cm 3.06 -Date of Last Picture (Recall this 03/11/23 field) -Photo Taken Yes -Epithelialization None Present -Tunneling No -Undermining/Tunneling No -Circular Undermining No -Exudate Amt Medium -Exudate Type Serosanguineous -Wound Margin Distinct, Outline Attached -Granulation Amt Medium (34-66%) -Granulation Quality Red -Slough/Fibrin Yes -Necrosis Amt Medium (34-66%) -Necrotic Tissue Type Adherent Slough -Texture (Yahaira-wound Skin Appearance) Assessed -Moisture (Yahaira-wound Skin Appearance) Assessed -Color (Yahaira-wound Skin Appearance) Assessed, Erythema -Temperature (Yahaira-wound Skin No Abnormality Appearance) (Pt Warm) -Tenderness on Palpation (Yahaira-wound No Skin Appearance) -Ulcer Cleansing Rinsed/ Irrigated with Saline -Foul Odor after Cleansing No -Anesthetic Used 5% Lidocaine Gel #1 L BUTTOCK -Combined with other wound No -Current Size (cm) - Length 1.3 -Current Size (cm) - Width 0.8 -Current Size (cm) - Depth 0.1 -Total Square Cm 1.04 -Date of Last Picture (Recall this 03/11/23 field) -Photo Taken Yes -Epithelialization None Present -Tunneling No -Undermining/Tunneling No -Circular Undermining No -Exudate Amt Medium -Exudate Type Serosanguineous -Wound Margin Flat & Intact -Granulation Amt Large (67-100%) -Granulation Quality Red -Slough/Fibrin Yes -Necrosis Amt Small (1-33%) -Necrotic Tissue Type Adherent Slough -Texture (Yahaira-wound Skin Appearance) Assessed -Moisture (Yahaira-wound Skin Appearance) Assessed -Color (Yahaira-wound Skin Appearance) Assessed, Erythema -Temperature (Yahaira-wound Skin No Abnormality Appearance) (Pt Warm) -Tenderness on Palpation (Yahaira-wound No Skin Appearance) -Ulcer Cleansing Rinsed/ Irrigated with Saline -Foul Odor after Cleansing No -Anesthetic Used 5% Lidocaine Gel WC - Nurse 2 - General Ulcer CM Notes Start: 03/11/23 10:15 Freq: Status: Active Protocol: Activity Type Activity Date Activity User E-sign Co-sign Detail Recorded Client Recorded Date Recorded By Document 03/11/23 10:49 MW [id number] 03/11/23 10:57 MW 03/11/23 10:49 Wound Center Nurse 2 #2- R BUTTOCK CLUSTER -Time 10:49 -Correct Patient Yes -Correct Side, Site, Position Yes -Correct Procedure Yes -Procedure Performed Yes -Type of Procedure Debridement -Clinical Debridement Subcutaneous -Tissue Removed Subcutaneous -Post Debridement (cm) - Length 2.0 -Post Debridement (cm) - Width 2.0 -Post Debridement (cm) - Depth 0.1 -Total Square (Post) (cm) 4.00 -Area of Debridement (cm) - Length 2.0 -Area of Debridement (cm) - Width 2.0 -Total Square (Area) (cm) 4.00 -Tunneling No -Undermining/Tunneling No -Circular Undermining No -Wound/Ulcer Outcome Not Healed -Ulcer Cleansing Rinsed/ Irrigated with Saline -Foul Odor after Cleansing No -Bioengineered Tissue No -Bleeding Controlled with Pressure -Treatment Response Procedure Tolerated Well -Offloading No -Debridement - Subq, 1st 20sq cm Yes #1 L BUTTOCK -Time 10:50 -Correct Patient Yes -Correct Side, Site, Position Yes -Correct Procedure Yes -Procedure Performed Yes -Type of Procedure Debridement -Clinical Debridement Subcutaneous -Tissue Removed Subcutaneous -Post Debridement (cm) - Length 1.5 -Post Debridement (cm) - Width 0.6 -Post Debridement (cm) - Depth 0.1 -Total Square (Post) (cm) 0.90 -Area of Debridement (cm) - Length 1.5 -Area of Debridement (cm) - Width 0.6 -Total Square (Area) (cm) 0.90 -Tunneling No -Undermining/Tunneling No -Circular Undermining No -Wound/Ulcer Outcome Not Healed -Ulcer Cleansing Rinsed/ Irrigated with Saline -Foul Odor after Cleansing No -Bioengineered Tissue No -Bleeding Controlled with Pressure -Treatment Response Procedure Tolerated Well -Offloading No -Debridement - Subq, 1st 20sq cm No Pain Scale: 0-10 Numeric Is Patient Pain Free? Yes WC - Nurse 3 - General Ulcer D/C NN Start: 03/11/23 10:15 Freq: Status: Active Protocol: Activity Type Activity Date Activity User E-sign Co-sign Detail Recorded Client Recorded Date Recorded By Document 03/11/23 11:06 [facility] [id number] 03/11/23 11:08 [facility] 03/11/23 11:06 Wound Care Center Nurse 3 #2- R BUTTOCK CLUSTER -Ulcer Cleansing Rinsed/ Irrigated with Saline -Foul Odor after Cleansing No -Primary Dressing Applied Mepilex Border, NonAdherent Contact Layer, Promogran -Other Dressing PER RB RN -Mepilex Border 2 -Promogran 4 #1 L BUTTOCK -Ulcer Cleansing Rinsed/ Irrigated with Saline -Foul Odor after Cleansing No -Primary Dressing Applied Mepilex Border, NonAdherent Contact Layer, Promogran -Other Dressing DRSG PER RB RN -Mepilex Border 0 -Promogran 0 Treatment Response Procedure Tolerated Well Pain Scale: 0-10 Numeric Is Patient Pain Free? Yes WC - Visit Discharge Discharge Condition Stable Ambulatory Status Ambulatory, Walker Transportation Private Auto Accompanied by Additional Wound Wound debrided: Right buttock cluster Wound Grade/Stage: Stage II Type of Debridement: Excisional debridement Anesthesia Used: 5% Lidocaine Gel Depth: Down to and including healthy tissue and in the subcutaneous layer Percentage of wound debrided: 100 Instrument Used: 3mm curette Tissue Removed: Slough and devitalized tissue Severity: Fat Layer Exposed Amount of bleeding with debridement: Mild Bleeding Controlled with: Pressure Patient tolerated procedure: Patient tolerated procedure well Charges/Coding Visit Charges Office Visits / Consults: 99159 OV L3 New Procedures Integumentary 111xxx-113xx: [id number] Dahlia subq tissue 20 sq cm/< Assessment/Plan Assessment/Plan (1) Pressure ulcer of right buttock, stage 2: CODE(S): L89.312 - Pressure ulcer of right buttock, stage 2 (2) Pressure ulcer of left buttock, stage 2: CODE(S): L89.322 - Pressure ulcer of left buttock, stage 2 (3) DM type 2 (diabetes mellitus, type 2): CODE(S): E11.9 - Type 2 diabetes mellitus without complications PLAN: Plan Debridement done as documented above, procedure was well-tolerated. Good granulation tissue and no clinical concerns for infection. Start Promogran, cover with Adaptic and foam dressing, change daily to twice daily depending on drainage. Continue offloading, optimal protein intake and diabetes control. Her questions were answered and she was advised to call with any further questions or concerns. Follow-up in a week or sooner if needed. 03/11/23 1238 <Electronically signed by Lamine Payan MD> Cosigner Signature (if applicable): CC: ~ Signed [facility] Work Phone: [phone] 532-890007-11-2023 Miscellaneous Notes* Telephone Encounter - Genny Slater MA - 02/23/2023 12:37 PM EDT DENIED, The requested medication/product is excluded from Part D prescription coverage. Unable to notify patient, phone just rang. * Telephone Encounter - Genny Slater MA - 02/23/2023 8:50 AM EDT PENDING, Hydrogel gel [place]: [id number] INDU Cover My Meds documented in this encounterWy[facility]ot [facility]07-10-2023 Miscellaneous Notes* Telephone Encounter - Laura Lyons LPN - 02/22/2023 6:01 PM EDT Signed and dated surgical clearance along with patient's last office note successfully faxed today to [facility] at fax number [phone]. Fax confirmation received and all documentation to be scanned into patient's chart. Laura Lyons LPN February 22, 2023 6:03 PM documented in this encounterWyandot [facility]06-28-2023 History of Present illness Narrative* Kali Bacon MD - 02/10/2023 10:40 AM EDT This note was created using [employer]. Subjective Janessa Baron is a 72 year old female. Janessa presents today for pressure ulcer to her [...] (Temporal) Resp 14 Ht 160 cm (5' 3) Wt 85 kg (187 lb 6.4 oz) [...] injury of buttock, stage 3, unspecified laterality ([facility]) L89.303 Treat wound with honey/hydrocolloid dressing. Change daily. Wound care instructions given. Follow-up in 2 weeks for recheck. Kali Bacon MD * Ewa Mclain LPN - 02/10/2023 10:03 AM EDT Patient is here today for a pressure ulcer she has on her buttock She had heart surgery and November 26 2022, after that she was not aloud to sleep in her bed she hadto sleep in a recliner chair which she [...] 10, 2023 10:13 AM documented in this encounterWyandot [facility]06-15-2023 Miscellaneous Notes* Telephone Encounter - Genny Slater MA - 01/28/2023 12:50 PM EDT No PA required, plans prefers brand name. * Telephone Encounter - Genny Slater MA - 01/28/2023 6:09 AM EDT PENDING, budesonide-formoterol (SYMBICORT) 160-4.5 mcg/actuation inhaler PA Submitted via [employer] documented in this encounterWyandot [facility]06-05-2023 Miscellaneous Notes* Telephone Encounter - Monica Aburto RN - 01/18/2023 4:13 PM EDT Left detailed VM for pt regarding the results of EGD with orders placed for Diflucan. Asked for return call if any additional questions. Also, pt has viewed this result on [employer]. Monica Aburto RN * Telephone Encounter - Monica Aburto RN - 01/18/2023 4:12 PM EDT ----- Message from Tosin Arredondo DO sent at 01/18/2023 3:49 PM EDT ----- Please review path from EGD with pt which reveals normal small bowel, normal gastric, and +brushings for esophageal madeline. Will treat with diflucan x 14 days. Repeat EGD PRN Thanks cl documented in this encounterWyandot [facility]06-05-2023 Miscellaneous Notes* Telephone Encounter - Spring Shipley LPN - 01/18/2023 10:27 AM EDT Patient is coming in office on 01-27-2023 for 6 month follow up. Patient states she always has lab work drawn before visit. Patient requesting orders Spring Shipley LPN January 18, 2023 10:29 AM documented in this encounterWyandot [facility]06-01-2023 History and physical note * Tosin Arredondo DO - 01/14/2023 1:30 PM EDT HISTORY AND PHYSICAL Janessa Baron, 72 year old female Current history and physical on file: No Is a new History and Physical required for today's visit? Yes Indication for procedure: Other belching PROCEDURE(S) SCHEDULED FOR: EGD (Esophagogastroduodenoscopy) with or without biopsies, removal of polyps or lesions, dilation (any means), treatment of bleeding ( any means), [...] or organomegaly. Sedation Plan: MAC Additional Comments: David Arredondo DO documented in this encounterWyandot [facility]05-24-2023 NoteHNO ID: [id number] Author: RT Jackelyn(R) Service: Radiology Author Type: [employer] Type: Progress Notes Filed: 01/06/2023 12:04 PM Note Text: Radiology Service Progress Note PATIENT NAME: Janessa Baron DATE OF SERVICE: January 06, 2023 [...] BY: RT Jackelyn(R) January 06, 2023 12:03 [id number] History of Present illness Narrative* Paulie Hicks RT(R) - 01/06/2023 12:40 PM EDT Radiology Service Progress Note PATIENT NAME: Janessa Baron DATE OF SERVICE: January 06, 2023 TIME: 12:03 PM PATIENT IDENTITY VERIFICATION COMPLETED USING TWO (2) IDENTIFIERS: Name and Date of confirmedby patient verbally and Name and Date of [...] IV DATA: Not applicable SIGNED BY: RT Jackelyn(Jami) January 06, 2023 12:03 PM documented in this encounterWyandot [facility]05-12-2023 Telephone encounter Note * Telephone Encounter - PATRICIA Shine CNP - 12/25/2022 3:12 PM EDT Returned patient's call. Patient reportedly has been belching since this AM. This has been intermittent for the last few days. She had visited an ED but was not offered any treatment. Patient states that she drank some diet coke this AM and feels that it may have started at that point. Suggested topatient to avoid carbonated beverages and give it [...] BP medications. She has since taken both herBB and ACEi. Patient has appointment scheduled with her PCP. Suggested that patient may need a GI specialist to assess if the problem continues. PATRICIA Ramirez CNP 12/25/22 [facility] [id number] Miscellaneous Notes* Telephone Encounter - PATRICIA Shine CNP - 12/25/2022 3:12 PM EDT Returned patient's call. Patient reportedly has been belching since this AM. This has been intermittent for the last few days. She had visited an ED but was not offered any treatment. Patient states that she drank some diet coke this AM and feels that it may have started at that point. Suggested topatient to avoid carbonated beverages and give it [...] BP medications. She has since taken both herBB and ACEi. Patient has appointment scheduled with her PCP. Suggested that patient may need a GI specialist to assess if the problem continues. PATRICIA Ramirez CNP 12/25/22 documented in this encounterSOhio State Harding [id number] Miscellaneous Notes* Telephone Encounter - Spring Shipley LPN - 12/25/2022 10:37 AM EDT Patient phoned office crying to this nurse [...] she can go to. Patient thanked nurse Spring Shipley LPN December 25, 2022 10:41 AM documented in this encounterWyandot [facility] Hospital04-27-2023 History of Present illness Narrative* Elsie Pedraza APRN - GLASS FURNACE TENDER - 12/10/2022 10:00 AM EDT Images from the original note were not included. [facility]: [employer] [address] [facility] [address] Dept: [phone] Dept Loc: [phone] Visit type: Established patient Reason for Visit: Post-op and Follow-up Assessment and Plan 1. S/P CABG x 3 2. Coronary 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[place] coronary 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 of angina pectoris (HCC) 11/26/2022 Azanishn: CABG x 3 SMITH-LAD, SVG-OM, SVG-RPDA, L EVH -Patient out of oxycodone, OK for her to use home tramadol and follow up with her Pain Management doc. -Antifungal powder prescribed for under breasts. -Refill of zofran, though nausea has improved. -Doing well with Home Health PT, discussed Cardiac Rehab in [place] when Home PT signs off. -Reviewed home [...] Patient taking narcotic opioid medication. Tx plan: Continueto use narcotic/opioid analgesic medication, Over The Counter-Tylenol [...] questions or concerns arise. Treatment Team: PCP: KALI BACON Subjective HPI: Janessa Baron is a 72 y.o. female referred by Dr. Rubio for severe multi vessel disease. She has a PMHx that includes HTN, HLD, asthma, and hiatal hernia. Per note, pt presented to ED for chest discomfort work up lead to a heart catheterization on 11/10/22 which showed severe triple-vessel disease. Ech ocardiogram showed EF of 70%. She was seen by Dr. Sethi in the OP setting. Underwent CABG x3 (SMITH-LAD, SVG-OM, SVG-RPDA), LLE EVH. Her postoperative course included afib, reverted to NSR with Amio,will d/c on PO taper. Will also d/c on Lasix 40mg PO x5 days with K supp. 12/10/22: Patient presents to office today for post-op follow up. Overall doing well. Activity increasing andworking with Home Health PT. Incisions healing nicely. [...] schedule Cardiology appointment with Dr. Rubio in [place]. Patient recovery going well, only complaint is [...] Clavulanic Acid Hives Dayquil Severe + Vapocool [Nzpdycvbalbmc-Pk-Ef-Apap] Hives Dextromethorphan Hives Doxylamine Hives Iodinated Contrast [...] mouth 2 times daily for 5 days, THEN2 tablets (400 mg) daily for 7 days, [...] 2 puffs in the morning and 2 puffsin the evening. calcium 500 MG tablet Take [...] tablet (20 mEq) by mouth daily. Do notcrush or chew. 5 tablet 0 No facility-administered [...] visit PATRICIA Ramirez CNP documented in this [facility]04-24-2023 Miscellaneous Notes* Telephone Encounter - Laura Lyons LPN - 12/07/2022 10:09 AM EDT LAST OFFICE VISIT: 09/24/2022 NEXT SCHEDULED OFFICE: [...] 07, 2022 10:20 AM documented in this encounterW[facility]ot [facility]04-18-2023 NoteEducation completed [facility] with [facility]18[facility] NoteDischarge Summary: Cardiothoracic Surgery Janessa Baron, 72 y.o., 1950 ADMIT DATE: 11/26/2022 DISCHARGE DATE: 12/01/2022 DISCHARGING SURGEON: Adrianne Sethi MD, Office Number: [phone] PRIMARY CARE PHYSICIAN: KALI BACON TREATMENT TEAM: Barrel Painter: VISIT STATUS: Admission CODE STATUS: Full Code SURGERY: 11/26/2022 Jossie: CABG x 3 SMITH-LAD, SVG-OM, SVG-RPDA, L EVH HOSPITAL COURSE: Janessa Baron is a 72 y.o. female referred [...] Underwent CABG x3 (SMITH-LAD, SVG-OM, SVG-RPDA), E EV. Her postoperative course included afib, reverted to [...] kg/m? Recent Labs 11/29/22 0003 11/30/22 0000 11/30/22212112/01/22 0005 CREATININE 0.94 1.10* 1.27* 1.17* HGB [...] Your Medications These medications were sent to [facility] [address] [place] [address] Hours: Wednesday to Wednesday 10 am to [...] 500 MG tablet D (more content not included)...[facility] [id number] Note Cardiothoracic Surgery/CCM Progress Note PATIENT NAME: Janessa Baron DATE: 12/01/22 HPI: Janessa Baron is a 72 y.o. female referred [...] BMP: Recent Labs 11/29/22 0003 11/30/22 0000 11/30/22212112/01/22 0005 NA 132* 133* 134* 136 K [...] [x] No Arterial Line: []Yes [x] No Reyes: []Yes [x] No Restraints: []Yes [x] No Patient discussed and plan of day developed from multidisciplinary rounds between Cardiothoracic Surgery (Cardiothoracic Surgeon, DALY) and Critical Care Attending Cardiac Core Medications: ASA, Statin, and BB EF: 11/26/22- 55% Blood Conservation: None noted in post-operative period Barrel Painter: [facility]04-17-2023 NoteReceived referral and reviewed chart. Phase II Cardiac Rehab Referral discussed with Janessa Baron. Cardiac Rehab education provided and reviewed handout. Patient interested but prefers [place] [facility] due to location. Given [place] information. Patient will contact [place] to schedule cardiac rehab when appropriate. [facility]04-17-2023 NoteCardiothoracic Surgery/CCM Progress Note PATIENT NAME: Janessa Baron DATE: 11/30/22 HPI: Janessa Baron is a 72 y.o. female referred [...] [] No Arterial Line: []Yes [x] No Reyes: []Yes [x] No Restraints: []Yes [x] No Patient discussed and plan of day developed from multidisciplinary rounds between Cardiothoracic Surgery (Cardiothoracic Surgeon, DALY) and Critical Care Attending Cardiac Core Medications: ASA, Statin, and BB EF: 11/26/22- 55% Blood Conservation: None noted in post-operative period Barrel Painter: [facility]04-16-2023 NoteStart PACC Note Home Health Referral Educated patient and spouse on Home Care and services available. Patient offered choice of available HHC and agreeable to SN/PT services with [facility] at Home - Home Care. Care Types: [facility] Program Isolation Precautions: No active [...] is noted as yes - consider a METAL TESTER evaluation once the patient returns home. START PATIENT REGISTRATION INFORMATION Order Information Order Signing Physician: Adrianne Sethi MD Service Ordered RN ?: Yes Service Ordered PT ?: Yes Service Ordered OT ?: No Service Ordered ST ?: No Service Ordered METAL TESTER?:No Service Ordered PUBLIC ADDRESS SERVICER?: No Following Physician: Adrianne Sethi MD Following Physician Overseeing Physician: (Required for Residents only) Agreeable to Follow? Yes Date/Time of Call 11/29/22 2:02 PM, Spoke with: OFFICE CLOSED Care Coordination SOC Call from [facility] Required?: No Same Day SOC?: No Primary Care Physician: KALI BACON Primary Care Physician Primary Care Physician Address: [address] [place] [phone] Visit Instructions: N/A Service Discharge Location Type: Home with Home Health Care Service Facility Name: N/A Service Floor Facility: N/A Service Room No: N/A Demographics Patient Last Name: Loraine Patient First Name: Janessa Language/Communication Barrier:NO Service Address: [address] [place] [address] Service City: [place] Service ST: [place] Service ZIP: [address] Service (home) Other phone numbers: Telephone Information: Emergency Contact: Extended Emergency Contact Information Primary Emergency Contact: Rody Baron Relation: Spouse Admission Information Admit Date: 11/26/2022 Patient status at discharge: Inpatient Admitting Diagnosis Atherosclerotic heart disease of [place] coronary artery without angina pectoris [I25.10] CAD in [place] artery [I25.10] Caregiver Information Caregiver First Name: RODY Caregiver Last Name: LORAINE Caregiver Relationship to Patient SPOUSE Caregiver Caregiver Notes: N/A [employer] List No END PATIENT REGISTRATION INFORMATION Pt [...] Start PACC Summary General Report/ Additional Comments Janessa Baron is a 72 y.o. female referred [...] CABG. Discharge Date: 12/01/2022 Referral Source-PACC: (Hospital/Unit): [facility] / T1-102/T1-102 A End PACC [facility] [id number] [facility] Respiratory Care Department Progress Note As [...] Respiratory in the care of this patient, [facility] [id number] [facility] Respiratory Care Department Progress Note Comment [...] Respiratory in the care of this patient, [facility] [id number] NoteNutrition Assessment Type and Reason for Visit: Initial, [...] healthy and diabetes handouts at bedside with [facility] RD phone number. Will return, [...] hx) Fluid Accumulation: No significant fluid accumulation Chief Data Officer Strength: Not Performed Nutrition Assessment: Pt with [...] diabetes diet handouts on bedside table, with [facility] RD phone number Estimated Daily Nutrient Needs: Energy Requirements Based On: Kcal/kg Weight Used for Energy Requirements: [place] (25-30 kcal/kg) Weight for Energy Calculation (kg): 52.3 kg Total Energy Requirements (kcals/day): 7166-3565 Weight Used for Protein Requirements: [place] (1.2-1.5 g/kg) Weight in Kg Used for [...] Ordered Anthropometric Measures: Height: 160 cm (5' 3) Current Body Weight: 93.7 kg (206 lb 9.1 oz) Admission Body Weight: 88.5 kg (195 lb) (stated) Usual Body Weight: (203# on 11/10/22, 205# on 09/08/22, 198# on 07/30/22) [place] Body Weight (lbs) (Calculated): 115 lbs [place] Body Weight (Kg) (Calculated): 52 kg % [place] Body Weight (Calculated): 179.6 % BMI (kg/m2) [...] to determine Parris Judd RD, LD Contact: *[phone] or via [facility]EyeOhio[facility] [id number] NoteCentral Venous Line: Date/Time: 11/26/2022 7:05 AM A [...] vein.. Staffing Performed: anesthesiologist Anesthesiologist: Rainer Goyal [facility]04-13-2023 Note Patient: Janessa Baron Procedure Summary Date: 11/26/22 Room / Location: [address] Operating Room Anesthesia Start: 654 Anesthesia Stop: 1129 Procedures: CABG WITH CHERI (Chest) Echocardiography transesophageal real-time Diagnosis: Atherosclerotic heart disease of [place] coronary artery without angina pectoris (Atherosclerotic heart disease of [place] coronary artery without angina pectoris [I25.10]) Surgeons: [...] discharged once all PACU criteria has been met.[facility] [id number] NotePatient: Janessa Baron Procedure Summary Date: 11/26/22 Room / Location: [address] Operating Room Anesthesia Start: 654 Anesthesia Stop: 1129 Procedures: CABG WITH CHERI (Chest) Echocardiography transesophageal real-time Diagnosis: Atherosclerotic heart disease of [place] coronary artery without angina pectoris (Atherosclerotic heart disease of [place] coronary artery without angina pectoris [I25.10]) Surgeons: [...] Allowed opportunity for questions and acknowledgement of understanding.[facility]04-13-2023 NotePatient recently seen in clinic No changes to H and P Consent obtained. Adrianne Sethi MD Cardiothoracic SurgeryMarlette Regional Hospital04-13-2023 NoteArterial Line: Date/Time: 11/26/2022 6:55 AM An arterial [...] secured by Tegaderm and tape. Staffing Performed: SRNA Anesthesiologist: Rainer Goyal MD Resident/INSPECTOR FINAL ASSEMBLY ELECTRICAL: PATRICIA Moctezuma CRNAMarlette Regional Hospital04-13-2023 NoteAirway Date/Time: 11/26/2022 6:58 AM Urgency: scheduled Airway not difficult General Information and Staff Patient location during procedure: Procedural Anesthesiologist: Rainer Goyal MD Resident/INSPECTOR FINAL ASSEMBLY ELECTRICAL: PATRICIA Moctezuma CRNA Performed: [facility] Indications and Patient Condition Indications for airway [...] from: lips Number of attempts at approach: [address] [place], [place] [address]604-13-2023 NotePA Catheter Placement: Date/Time: 11/26/2022 7:23 AM A PA catheter [...] line secured and line sutured. Procedure was uneventful.[facility] [id number] NoteDATE OF PROCEDURE: 11/26/2022 PREOPERATIVE DIAGNOSIS: Coronary artery disease POSTOPERATIVE DIAGNOSIS: Coronary artery disease PROCEDURE: 1. Coronary artery bypass grafting x 3 - Left internal mammary artery to the left anterior descending - Saphenous vein graft to the obtuse marginal - Saphenous vein graft to the right posterior descending artery 2. Endoscopic vein harvest, left lower extremity SURGEON: Adrianne Sethi MD COMMERCIAL ENERGY AUDITOR: RUBIA Berrios COMPLICATIONS: None intra-op CONDITION: Stable DESCRIPTION OF PROCEDURE: The patient was prepped and draped in the appropriate manner, having undergone general endotracheal anesthetic in addition to [place] catheter placement, arterial line, and reyes catheter placement. An antibiotic and a beta [...] artery bypass: Bypasses were performed to the [place] arterial targets using the conduits listed above [...] CHERI: Normal EF Adrianne Sethi MD Cardiothoracic SurgeryJohn [facility]. [facility] [id number] NotePatient: Janessa Baron Procedure Information Date/Time: 11/26/22 07 Procedures: CABG WITH CHERI (Chest) Echocardiography transesophageal real-time Location: [facility] Operating Room Surgeons: Adrianne Sethi MD [...] IMPRESSION: Sinus rhythm PVCs Borderline left axis deviationSMemorial Healthcare04-07-2023 Note Comprehensive PreSurgical History and Physical ? Name: Janessa Baron : 1950 (Age-72 y.o.) Date of Service: Pt seen/examined on 11/20/2022 Procedure Information Date/Time: 11/26/22 07 Procedures: CABG WITH CHERI (Chest) Echocardiography transesophageal real-time Location: [address] Operating Room Surgeons: Adrianne Sethi MD Chief Complaint: Diagnosis: Atherosclerotic heart disease of [place] coronary artery without angina pectoris [I25.10] History Of Present Illness: 72 y.o. female who we are asked to see/evaluate by Dr. Sethi for pre-operative evaluation prior to . ? Case: [id number] Date/Time: 11/26/22 07 Procedures: CABG WITH CHERI (Chest) [97234 CPT(R)] Echocardiography transesophageal real-time [68372 CPT(R)] Anesthesia type: General Diagnosis: Atherosclerotic heart disease of [place] coronary artery without angina pectoris [I25.10] Pre-op diagnosis: Atherosclerotic heart disease of [place] coronary artery without angina pectoris [I25.10] Location: [address] Operating Room Surgeons: Adrianne Sethi MD From office visit with Dr. Sethi: Janessa Baron is a 72 y.o. female referred [...] taking her blood pressure medications. States her ash collector and surgeon are aware. Patient denies hx of CHF, TN, TIA/CVA, COPD, RENE, DVT/PE. Past Medical History: [...] No current facility-administered medi (more content not included)...[facility]04-07-2023 NoteComprehensive PreSurgical History and Physical ? Name: Janessa Baron : 1950 (Age-72 y.o.) Date of Service: Pt seen/examined on 11/20/2022 Procedure Information Date/Time: 11/26/22 07 Procedures: CABG WITH CHERI (Chest) Echocardiography transesophageal real-time Location: [facility] OR [facility] Operating Room Surgeons: Adrianne Sethi MD Chief Complaint: Diagnosis: Atherosclerotic heart disease of [place] coronary artery without angina pectoris [I25.10] History Of Present Illness: 72 y.o. female who we are asked to see/evaluate by Dr. Sethi for pre-operative evaluation prior to . ? Case: [id number] Date/Time: 11/26/22 07 Procedures: CABG WITH CHERI (Chest) [17901 CPT(R)] Echocardiography transesophageal real-time [05801 CPT(R)] Anesthesia type: General Diagnosis: Atherosclerotic heart disease of [place] coronary artery without angina pectoris [I25.10] Pre-op diagnosis: Atherosclerotic heart disease of [place] coronary artery without angina pectoris [I25.10] Location: [facility] OR Operating Room Surgeons: Adrianne Sethi MD From office visit with Dr. Sethi: Janessa Baron is a 72 y.o. female referred [...] taking her blood pressure medications. States her ash collector and surgeon are aware. Patient denies hx of CHF, TN, TIA/CVA, COPD, RENE, DVT/PE. Past Medical History: [...] No current facility-administered medi (more content not included)...[facility]04-06-2023 Telephone encounter Note* Telephone Encounter - Elsie Pedraza APRN - YULY - 11/19/2022 12:11 PM EDT Surg proc orders placed. Meds sent to [facility] in [place]. PATRICIA Ramirez CNP 11/19/22 [facility] [id number] Miscellaneous Notes* Telephone Encounter - PATRICIA Shine CNP - 11/19/2022 12:11 PM EDT Surg proc orders placed. Meds sent to [facility] in [place]. PATRICIA Ramirez CNP 11/19/22 * Telephone Encounter - Lisa Lantigua MA - 11/18/2022 3:46 PM EDT Patient is scheduled for a CABG and CHERI on 11/26/22 @ 7 am. PAT is 11/20/22 @ [address]pm. Please place surg proc orders. Please e-scribe nasal ointment and mouth rinse. Thank you. documented in this encounterSOhio State Harding [id number] Telephone encounter Note* Telephone Encounter - Lisa Lantigua MA - 11/18/2022 3:46 PM EDT Patient is scheduled for a CABG and CHERI on 11/26/22 @ 7 am. PAT is 11/20/22 @ 2pm. Please place surg proc orders. Please e-scribe nasal ointment and mouth rinse. Thank you. [facility] [id number] History of Present illness Narrative* Adrianne Sethi MD - 11/18/2022 2:30 PM EDT Images from the original note were not included. [facility] CARDIOVASCULAR & THORACIC SURGERY [address] [facility] [address] Dept: [phone] Dept Loc: [phone] Visit type: New Reason for Visit: Coronary artery disease Assessment and plan 72 F with multivessel coronary artery disease CAD: Coronary artery disease: I discussed with her and her the indications, risks, benefits, and perioperative course of a coronary artery bypass grafting. I discussed alternatives including no intervention, medical therapy only, and percutaneous coronary intervention with medications. A ellen gical revascularization is recommended in her case. On [...] MD Cardiothoracic Surgery History of Present Illness Janessa Baron is a 72 y.o. female referred [...] Position: Sitting, BP Cuff Size: Large adult) Pulse80 Temp 36.3 C (97.3 F) (Temporal) Ht 1.6 m (5' 3) Wt 89.4 kg (197 lb) BMI 34.90 [...] Long Length of Stay:3.669% Treatment Team: PCP: Kali Bacon MD Cardiology: Leo Rubio MD Disclaimer INFORMED CONSENT:The nature and purpose of the proposed treatment or procedure have been discussed.The risks and benefits of the proposed treatment [...] This note may have been dictated using [employer] Edition 2.6 and/or Sharegate Voice Recognition Feature. The document was proofread, however unrecognized voice recognition plant machinist errors may be present. documented in this [facility]04-01-2023 Evaluation note* Diagnosis Onset Date Resolution Status 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 Chest pain acute HTN (hypertension) chronic History of coronary artery bypass graft x November, acute Hyperlipidemia acute Postoperative atrial fibrillation acute HTN (hypertension) [facility] Work Phone: 1(823) 644-241604-01-2023 Evaluation note* Diagnosis Onset Date Resolution Status History of coronary artery bypass graft x November, 3 acute Hyperlipidemia acute Postoperative atrial fibrillation acute HTN (hypertension) chronic DM type 2 (diabetes mellitus, type 2) acute Pressure ulcer of left buttock, stage 2 acute Pressure ulcer of right buttock, stage 2 acute [facility] Work Phone: 1(827) 629-647204-01-2023 Evaluation note* Diagnosis Onset Date Resolution Status History of coronary artery bypass graft x 3 November, acute Hyperlipidemia acute Postoperative atrial fibrillation acute HTN (hypertension) chronic DM type 2 (diabetes mellitus, type 2) acute Pressure ulcer of left buttock, stage 2 acute Pressure ulcer of right buttock, stage 2 acute DM type 2 (diabetes mellitus, type 2) acute Pressure ulcer of left buttock, stage 2 acute Pressure ulcer of right buttock, stage 2 acute [facility] Work Phone: 1(686) 548-871104-01-2023 Evaluation note* Diagnosis Onset Date Resolution Status History of coronary artery bypass graft x 3 November, acute Hyperlipidemia acute Postoperative atrial fibrillation acute HTN (hypertension) chronic DM type 2 (diabetes mellitus, type 2) acute Pressure ulcer of left buttock, stage 2 acute Pressure ulcer of right buttock, stage 2 acute History of coronary artery bypass graft x 3 November, acute Hyperlipidemia acute Postoperative atrial fibrillation acute HTN (hypertension) chronic DM type 2 (diabetes mellitus, type 2) acute Pressure ulcer of left buttock, stage 2 acute Pressure ulcer of right buttock, stage 2 acute [facility] Work Phone: 1(293) 357-154403-10-2023 Miscellaneous Notes* Telephone Encounter - Spring Shipley LPN - 10/23/2022 2:51 PM EST Last Office Visit: 09-24-2022 Next Scheduled Office Visit: 01-27-2023 Requested Prescriptions Pending Prescriptions Disp Refills albuterol (PROVENTIL) 2.5 mg /3 mL (0.083 %) nebulizer solution 30 mL 3 Sig: INHALE WITH 1 VIAL IN NEBULIZER EVERY SIX HOURS NEEDED Spring Shipley LPN October 23, 2022 2:58 PM documented in this encounterWyandot [facility] Hospital02-09-2023 History of Present illness Narrative* Yomaira Mcelroy APRN.GLASS FURNACE TENDER - 09/24/2022 9:13 AM EST This note was created using NoteWriter. Subjective Janessa Baron is a 72 year old female [...] her pain is present all the time butis worse when she moves her arm. She [...] She states that both helped a little bit. She has been using Tylenol as well. [...] call to tell us where she wants referralsent. Janessa Baron is to follow up in 6 months. Discussed need for taking all medications as prescribed, increasing activity level as tolerated, and lowering sodium and processed food intake at today's visit. Patient is aware to call the office or send communication via Clinkedhart for questions or concerns regarding today's appointment or follow up. Yomaira Mcelroy APRN.YULY documented in this encounterWyandot Memorial Hospital01-25-2023 Miscellaneous Notes* Telephone Encounter - Laura Lyons LPN - 09/09/2022 5:30 PM EST Returned call from Rody, patient's . Rody [...] 09, 2022 6:08 PM documented in this encounterWyandot Memorial Hospital01-24-2023 NotePap Smear Specimen AdequacyJanuary 2022 1:34pmComment.Satisfactory for evaluation. Endocervical and/or squamous metaplasticcells (endocervical component)are present.[facility] A#[id number] Hospital on above: Satisfactory for evaluation. Endocervical and/or squamous metaplasticcells (endocervical component)are present.09-08-2022 NotePap Smear Specimen Adequacy September 08, 2022 1:34pmComment.Satisfactory for evaluation. Endocervical and/or squamous metaplasticcells (endocervical component)are present.[facility] A#[id number] Hospital on above:Satisfactory for evaluation. Endocervical and/or squamous metaplasticcells (endocervical component)are present.09-08-2022 NotePap Smear Specimen AdequacyJanuary 2022 1:34pmComment.Satisfactory for evaluation. Endocervical and/or squamous metaplasticcells (endocervical component)are present.[facility] INTER[facility]AC[facility] A#[id number] Community HospitalComment on above:Satisfactory for evaluation. Endocervical and/or squamous metaplasticcells (endocervical component)are present.09-08-2022 NotePap Smear Specimen AdequacyJanuary 2022 2:34pmComment.Satisfactory for evaluation. Endocervical and/or squamous metaplasticcells (endocervical component)are present.[facility] A#[id number] County HospitalComment on above:Satisfactory for evaluation. Endocervical and/or squamous metaplasticcells (endocervical component)are present.09-08-2022 NotePap Smear Specimen AdequacyJanuary 2022 2:34pmComment.Satisfactory for evaluation. Endocervical and/or squamous metaplasticcells (endocervical component)are present.[facility] INTER[facility] A#[id number] County HospitalComment on above:Satisfactory for evaluation. Endocervical and/or squamous metaplasticcells (endocervical component)are present.09-08-2022 NotePap Smear Specimen AdequacyJanuary 2022 2:34pmComment.Satisfactory for evaluation. Endocervical and/or squamous metaplasticcells (endocervical component)are present.[facility] INTER[facility]AC[facility] A#[id number] County HospitalComment on above:Satisfactory for evaluation. Endocervical and/or squamous metaplasticcells (endocervical component)are present.07-30-2022 History of Present illness Narrative* Kali Bacon MD - 07/30/2022 9:28 AM EST This note was created using NoteWriter. Subjective Janessa Baron is a 71 year old female. Janessa presents today for her Medicare wellness exam [...] (Temporal) Resp 18 Ht 160 cm (5' 3) Wt 90.1 kg (198 lb 9.6 oz) SpO2 98% BMI35.18 kg/m Physical Exam Vitals reviewed. Constitutional: Appearance: [...] normal. Behavior: Behavior normal. Assessment and Plan Janessa was seen today for medicare wellness exam. [...] 2 Sprays in each nostril once daily. * Spring Shipley LPN - 07/30/2022 9:11 AM EST Medicare Yearly Visit Current Outpatient Medications Medication [...] medications for this visit. Medications reviewed: Yes Janessa denies regular aerobic exercise. She watches her diet for sodium, low fat and low cholesterol most of the time. End of Live Planning discussed including patients advanced directive wishes: Yes I am willing to follow Janessa advanced directives. Depression screen She in the [...] oz (90.1kg) SpO2 98% BMI 35.19 kg/(m^2). Kali Bacon MD documented in this [facility]11-15-2022 Nurse Note* Nicolette Castro - 06/30/2022 7:57 AM EST Eugenie at [facility] is faxing A1C from 12-17-21 documented in this [facility]07-22-2022 Miscellaneous Notes* Telephone Encounter - Spring Shipley LPN - 03/06/2022 10:[address] Woodruff office called this nurse stating that patient is requesting a sleep assessment. This nurse left message for patient to call office Spring Shipley LPN March 06, 2022 11:00 AM documented in this [facility] CenterDischarge summary Author Beltran Andes [facility] October 08, 2022 5:46am Note Date/Time October 08, 2022 5:37am [facility] Medical Records Department [address] [place] [address] Emergency Department Summary 10/08/22 MR#: [id number] Acct: [id number] Name: JANESSA BARON Rep #:[id number] : 1950 72 From: Beltran Miranda DO PCP: Dr. Kali Bacon MD Status:REG ER Location: ED HPI History of Present Illness Chief Complaint: Chest Pain Narrative Narrative: Patient is a 72-year-old female with past medical history of hypertension and hyperlipidemia and type 2 diabetes. She states that she has severe osteoarthritis and does not sleep well. She states this evening she was up-and-down and then noticed some midsternal chest discomfort. She states that there was mild shortness of breath associated with this but no nausea vomiting or diaphoresis. She states that the pain occurred around 2 AM and withconcern this could be cardiac she presented to the hospital by approximately 230. She also reports that upon arrival she has been having spontaneous improvement of symptoms. Patient also makes note that she has been having left arm pain for approximately 1 to 2 weeks with no excessive activity or trauma. She states she was already evaluated her family doctor secondary to this and states that the pain in the left arm with this morning's chest discomfort is thesame as it has been [facility] Medical History Arthritis Asthma Carotid stenosis Diabetes Gastrointestinal problem H/o difficulty anesthesia Hiatal hernia High triglycerides Hyperlipidemia Hypertension Mass of both breasts on mammogram Stomach inflammation Home Medications budesonide-formoterol HFA 160 mcg-4.5 mcg/actuation aerosol inhaler 2 puff inhalation BID PRN Asthma 05/21/16 [History Last Taken 05/21/16] calcium carbonate 600 mg calcium (1,500 mg) tablet 600 mg PO DAILY 05/21/16 [History Last Taken 05/21/16] lisinopril 20 mg-hydrochlorothiazide 12.5 mg tablet 1 tab PO BID 05/21/16 [History Last Taken 05/21/16] montelukast 10 mg tablet 10 mg PO DAILY 05/21/16 [History Last Taken 05/21/16] simvastatin 20 mg tablet 40 mg PO DAILY 05/21/16 [History Last Taken 05/21/16] cetirizine 10 mg capsule (Zyrtec) 10 mg PO DAILY 05/18/18 [History Last Taken Unknown] multivitamin,hb-ghwh-ghoonbvu (Complete Multivitamin tablet) 1 tab PO DAILY 05/18/18 [History Last Taken Unknown] omeprazole 40 mg capsule,delayed release 40 mg PO DAILY 05/18/18 [History Last Taken Unknown] Al hyd-Mg tr-alg ac-sod bicarb 80 mg-14.2 mg chewable tablet (Gaviscon) tab PO 05/22/19 [History Last Taken Unknown] ascorbic acid (vitamin C) 500 mg tablet 500 mg PO DAILY 05/22/19 [History Last Taken Unknown] coenzyme Q10 75 mg capsule (Ultra CoQ10) 75 mg PO DAILY 05/22/19 [History Last Taken Unknown] glimepiride 4 mg tablet 4 mg PO QAM 05/22/19 [History Last Taken Unknown] metformin 1,000 mg 24 hr tablet,extended release 1,000 mg PO BID 05/22/19 [History Last Taken Unknown] pioglitazone 30 mg tablet (Actos) 30 mg PO DAILY 05/22/19 [History Last Taken Unknown] tramadol 50 mg tablet 50 mg PO BID 05/27/20 [History Last Taken Unknown] phenazopyridine 100 mg tablet (Pyridium) 100 mg PO TID PRN pain 6 doses #6 tabs 06/11/21 [Rx Last Taken Unknown] melatonin 5 mg capsule 5 mg PO QHS 09/08/22 [History Last Taken Unknown] magnesium oxide 400 mg (241.3 mg magnesium) tablet 400 mg PO DAILY 14 days #14 tabs 10/08/22 [Rx Last Taken Unknown] Allergy/AdvReac Type Severity Reaction Status Date / Time doxycycline Allergy Mild unknown Verified 09/08/22 10:54 sulfamethoxazole Allergy Mild unknown Verified 09/08/22 10:54 [From Bactrim] trimethoprim [From Bactrim] Allergy Mild unknown Verified 09/08/22 10:54 acetaminophen [From NyQuil] Allergy Hives Verified 09/08/22 10:54 amoxicillin [From Augmentin] Allergy Hives Verified 09/08/22 10:54 cefprozil [From Cefzil] Allergy Hives Verified 09/08/22 10:54 clavulanic acid Allergy Hives Verified 09/08/22 10:54 [From Augmentin] dextromethorphan Allergy Hives Verified 09/08/22 10:54 [From NyQuil] doxylamine [From NyQuil] Allergy Hives Verified 09/08/22 10:54 erythromycin base Allergy Hives Verified 09/08/22 10:54 gatifloxacin [From Tequin] Allergy Hives Verified 09/08/22 10:54 ibuprofen Allergy Other Verified 09/08/22 10:54 [From DayQuil Sinus Pressure/Pain] Iodinated Contrast Media Allergy Hives Verified 09/08/22 10:54 [CONTRASTS] lincomycin Allergy Hives Verified 09/08/22 10:54 metoclopramide [From Reglan] Allergy Other Verified 09/08/22 10:54 pseudoephedrine [From NyQuil] Allergy Hives Verified 09/08/22 10:54 morphine AdvReac Intermediate tachycardia Verified 09/08/22 10:54 CHOLESTEROL MEDS Allergy Other Uncoded 09/08/22 10:54 Family History Father No problems noted. Mother CVA (cerebral vascular accident) Heart disease Sister Colon cancer Diabetes Brother Thyroid disorder Thyroid cancer Sister Cancer vaginal Diabetes Brother Diabetes Surgical History fallopian tube surgery H/O oophorectomy H/O tubal ligation History of ear surgery Hx of cholecystectomy Social History household members: spouse housing: house Smoking Status: Never smoker alcohol intake: never substance use type: does not use caffeine: Yes what type of physical activity do you participate in: walking frequency: 3-4 times per week seatbelt use: always do you feel safe at home: Yes additional social history: [place]ody Patient and both retired ROS ROS ED Constitutional Constitutional ED: Denies chills or fever(s) ENT ENT ED: Denies sore throat Cardiovascular Cardiovascular: Reports chest pain; Denies palpitations or racing heartbeat Respiratory/Chest Respiratory/Chest: Reports dyspnea; Denies cough Gastrointestinal Gastrointestinal: Denies abdominal pain, diarrhea, nausea or vomiting Genitourinary Genitourinary ED: Denies dysuria Musculoskeletal Musculoskeletal: Reports other Details: Positive left arm pain ; Denies myalgias Integumentary Denies rash Neurologic Neurologic: Denies headache(s) Hematologic/Lymphatic Hematologic/Lymphatic: Denies easy bleeding or easy bruising EXAM Physical Exam Const Vital Signs: 10/08/22 01:59 10/08/22 01:59 10/08/22 02:07 Temperature 97.9 F Temperature Source Temporal Pulse Rate 91 Respiratory Rate 27 H 17 Blood Pressure Blood Pressure Mean Pulse Ox 99 98 Oxygen Delivery Method Room Air Room Air Room Air 10/08/22 02:45 10/08/22 02:55 10/08/22 04:08 Temperature Temperature Source Pulse Rate 75 Respiratory Rate 18 Blood Pressure 170/75 H 152/65 H 160/60 H Blood Pressure Mean 106 94 93 Pulse Ox Oxygen Delivery Method Positive well nourished, well developed and obese General Appearance ED: well developed Nutritional Appearance: obese Eyes PERRL and EOMs intact bilaterally Neck supple Neck Narrative: Carotid pulses equal and symmetric Chest Wall palpation of chest normal Chest Narrative: No bony deformity or crepitus noted Resp normal respiratory effort and clear to auscultation bilaterally Cardio regular rate and regular rhythm Rate: other Other Details: Radial pulses are plus 2 out of 4 bilaterally are equal and GI normal to inspection, nondistended, normoactive bowel sounds, non-tender, non-distended and no masses GI Narrative: No voluntary guarding or rigidity no pulsatile mass Auscultation: normoactive bowel sounds Palpation: soft Extremity Extremity Narrative: +1-2 pitting edema to the bilateral lower extremities that is equal and symmetric. Negative Homans' sign bilaterally Neuro oriented x3 and CN's II-XII intact bilaterally Sensorium / Orientation: alert Psych Psych Narrative: Patient has a nervous/anxious affect Skin no rashes or lesions noted MDM MDM MDM Narrative Medical decision making narrative: Patient presented to the ER extremely hypertensive with a blood pressure of 206 systolically. She does have a history of hypertension and is also in pain and feeling nervous/anxious so this could be a physiologic response. However with the accelerated hypertension and her report of chest discomfort this could also be vasospasm/constriction from the elevated hypertension. Secondary to this shewas given labetalol and Ativan. The blood pressure reduced by 25% to his systolic value of approximately 150. Her initial troponin was 12 and the 2-hourdelta change by 8 which is not clinically significant as we are looking for a value of greater than 20 in the delta range. Chest x-ray revealed no acute lungpathology and there are also no signs of acute kidney injury. Patient does havea decreased potassium slightly at 3.4 as well as magnesium at 1.1. These were replaced and patient did have improvement of her PVCs. Therefore at this time asunderlying lung pathology has been ruled out with x-ray patient does not have a elevation to her delta troponin by greater than 20 points and there are no signsof acute kidney injury or endorgan damage from hypertension and this has been treated and reduced appropriately she is otherwise safe for discharge. Please note the patient does report relief/resolution of her chest discomfort prior to discharge Lab Data Attestation: I reviewed the patient's lab results. Labs: Laboratory Results - last 24 hr 10/08/22 10/08/22 10/08/22 02:05 02:05 02:05 WBC 13.6 H RBC 4.72 Hgb 13.2 Hct 41.2 MCV 87.3 MCH 28.0 MCHC 32.0 RDW Std Deviation 44.5 H RDW Coeff of Deny 13.8 Plt Count 377 MPV 9.7 Immature Gran % (Auto) 0.400 Neut % (Auto) 37.9 L Lymph % (Auto) 52.2 H Nobles % (Auto) 7.4 Eos % (Auto) 1.8 Baso % (Auto) 0.3 Absolute Neuts (auto) 5.1 Absolute Lymphs (auto) 7.08 H Nucleated RBC % 0 Differential Comment SCANNED Atypical Lymphocytes RARE Sodium 135 L Potassium 3.4 L Chloride 95 L Carbon Dioxide 28.0 Anion Gap 12 BUN 17 Creatinine 0.94 Estim Creat Clear Calc 46.07 Est GFR (MDRD) Af Amer 76 Est GFR (MDRD) Non-Af 63 BUN/Creatinine Ratio 18.1 Glucose 157 H Calcium 9.3 Magnesium 1.1 L Troponin I High Sens 12 TSH 2.08 10/08/22 04:05 WBC RBC Hgb Hct MCV MCH MCHC RDW Std Deviation RDW Coeff of Deny Plt Count MPV Immature Gran % (Auto) Neut % (Auto) Lymph % (Auto) Nobles % (Auto) Eos % (Auto) Baso % (Auto) Absolute Neuts (auto) Absolute Lymphs (auto) Nucleated RBC % Differential Comment Atypical Lymphocytes Sodium Potassium Chloride Carbon Dioxide Anion Gap BUN Creatinine Estim Creat Clear Calc Est GFR (MDRD) Af Amer Est GFR (MDRD) Non-Af BUN/Creatinine Ratio Glucose Calcium Magnesium Troponin I High Sens 20 TSH Radiography Diagnostic Testing: Clinical Impression(s) from Imaging Studies Chest X-Ray 10/08/22 02:06 IMPRESSION: No acute cardiopulmonary disease. Electronically Signed: Mendez Whitehead MD at 2:43 EST Reading Location ID and State: [id number] / , Service support , Chest x-ray as interpreted by the emergency medicine physician reveals no acute infiltrate pneumothorax or pleural effusion Discharge Plan Triage Chief Complaint: Chest Pain ED Provider: Belrtan Miranda Dx/Rx/DC Orders Clinical Impression: Accelerated hypertension, DM type 2 (diabetes mellitus, type 2), Nonspecific chest pain, Hypomagnesemia, PVC (premature ventricular contraction) Instructions: Controlling High Blood Pressure, ED Chest Pain, Uncertain Cause Prescriptions: New magnesium oxide 400 mg (241.3 mg magnesium) tablet 400 mg PO DAILY 14 Days Qty: 14 0RF No Action multivitamin,dl-kwle-xcrnkjmk tablet tablet 1 tab PO DAILY omeprazole 40 mg capsule,delayed release(DR/EC) 40 mg PO DAILY Zyrtec 10 mg capsule 10 mg PO DAILY ascorbic acid (vitamin C) 500 mg tablet 500 mg PO DAILY pioglitazone [Actos] 30 mg tablet 30 mg PO DAILY Ultra CoQ10 75 mg capsule 75 mg PO DAILY Gaviscon 80-14.2 mg tablet,chewable PO glimepiride 4 mg tablet 4 mg PO QAM tramadol 50 mg tablet 50 mg PO BID phenazopyridine [Pyridium] 100 mg tablet 100 mg PO TID PRN (Reason: pain) Qty: 6 0RF melatonin 5 mg capsule 5 mg PO QHS lisinopril-hydrochlorothiazide 1 TABLET tablet 1 tab PO BID calcium carbonate 600 MG tablet 600 mg PO DAILY simvastatin 20 MG tablet 40 mg PO DAILY montelukast 10 MG tablet 10 mg PO DAILY budesonide-formoterol 1 INHALER inhaler 2 puff Inhalation BID PRN (Reason: Asthma) metformin 1,000 mg tablet,ER verito.retention 24 hr 1,000 mg PO BID Primary Care Provider: Kali Bacon Referrals: Kali Bacon MD [Primary Care Provider] - Activity Restrictions/Additional Instructions: Please continue your blood pressure medication as directed by your doctor but please keep track of it once a day to ensure you do not need any further medication added. If you have any further concerns or worsening of symptoms please return to the ER for repeat evaluation Disposition Disposition: Home, Self Care What to do if you have Problems For any increased pain, shortness of breath, bleeding, nausea or vomiting, chestpain, or any unexpected problems, contact your Primary Care Provider. Call [facility] ([phone]) or report to the closest Emergency Room. Call 911 if necessary. 10/08/22 0546 <Electronically signed by Beltran Miranda DO> Cosigner Signature (if applicable): CC: Dr. Kali Bacon MD ~ Signed [facility] Work Phone: Discharge summary Author Dr. Perez [facility] December 22, 2022 5:41am Note Date/Time December 22, 2022 4:09am [facility] Medical Records Department [address] [place] [address] Emergency Department Summary 12/22/22 MR#: [id number] Acct: [id number] Name: JANESSA BARON Rep #:[id number] : 1950 72 From: Al Perez MD PCP: Dr. Kali Bacon MD Status:REG ER Location: ED HPI History of Present Illness Chief Complaint: Abd Pain Detail of Chief Complaint: Belching Informant: patient and spouse/S.O. Onset/Context/Timing Onset: Hours (4-5) Narrative Narrative: Patient states she has been belching for 5 hours straight or more. Started about an hour after she ate dinner, she states she ate very little but it included a banana. She states she tried simethicone and then Bel[place] and she cannot stop. She feels a little bloated. She has no other symptoms. She had a CABG 4.5 weeks ago at [facility]. She states she has been recovering well. She denies any chest pain shortness of breath. She states the last couple days her asthma has been flared up a little bit, she called her heart doctor and theycalled her in some Lasix to take in case she had been developing some fluid buildup that was causing her breathing difficulty. She states she is not short of breath now. She states she has had issues with belching in the past but never not been able to stop like this. She has been having normal bowel movements and urinating normally. [facility] Medical History Arthritis Asthma Carotid stenosis Diabetes Gastrointestinal problem H/o difficulty anesthesia Hiatal hernia High triglycerides Hyperlipidemia Hypertension Mass of both breasts on mammogram Postoperative atrial fibrillation Stomach inflammation Home Medications budesonide-formoterol HFA 160 mcg-4.5 mcg/actuation aerosol inhaler 2 puff inhalation BID PRN Asthma 05/21/16 [History Last Taken 05/21/16] calcium carbonate 600 mg calcium (1,500 mg) tablet 600 mg PO DAILY 05/21/16 [History Last Taken 05/21/16] montelukast 10 mg tablet 10 mg PO DAILY 05/21/16 [History Last Taken 05/21/16] simvastatin 20 mg tablet 40 mg PO DAILY 05/21/16 [History Last Taken 05/21/16] cetirizine 10 mg capsule (Zyrtec) 10 mg PO DAILY 05/18/18 [History Last Taken Unknown] multivitamin,mg-zyfk-lcvuvmzh (Complete Multivitamin tablet) 1 tab PO DAILY 05/18/18 [History Last Taken Unknown] Al hyd-Mg tr-alg ac-sod bicarb 80 mg-14.2 mg chewable tablet (Gaviscon) tab PO 05/22/19 [History Last Taken Unknown] ascorbic acid (vitamin C) 500 mg tablet 500 mg PO DAILY 05/22/19 [History Last Taken Unknown] coenzyme Q10 75 mg capsule (Ultra CoQ10) 75 mg PO DAILY 05/22/19 [History Last Taken Unknown] glimepiride 4 mg tablet 4 mg PO QAM 05/22/19 [History Last Taken 11/10/22] metformin 1,000 mg 24 hr tablet,extended release 1,000 mg PO BID 05/22/19 [History Last Taken Unknown] melatonin 5 mg capsule 5 mg PO QHS 09/08/22 [History Last Taken Unknown] magnesium oxide 400 mg (241.3 mg magnesium) tablet 400 mg PO DAILY 14 days #14 tabs 10/08/22 [Rx Last Taken Unknown] albuterol sulfate 90 mcg/actuation aerosol inhaler 2 puff inhalation Q6H PRN Shortness Of Breath Or Wheezing 11/04/22 [History Last Taken Unknown] omeprazole 40 mg capsule,delayed release 20 mg PO BID 11/04/22 [History Last Taken Unknown] amiodarone 200 mg tablet 200 mg PO DAILY 12/21/22 [History Last Taken Unknown] aspirin 81 mg tablet,delayed release (Adult Low Dose Aspirin) 81 mg PO DAILY 12/21/22 [History Last Taken Unknown] empagliflozin 10 mg tablet (Jardiance) 10 mg PO DAILY 12/21/22 [History Last Taken Unknown] furosemide 40 mg tablet 40 mg PO DAILY 12/21/22 [History Last Taken Unknown] lisinopril 5 mg tablet 5 mg PO DAILY 12/21/22 [History Last Taken Unknown] metoprolol tartrate 25 mg tablet 25 mg PO BID 12/21/22 [History Last Taken Unknown] oxycodone 5 mg tablet 5 mg PO Q6H PRN 12/21/22 [History Last Taken Unknown] potassium chloride 20 mEq tablet,extended release 20 meq PO DAILY 12/21/22 [History Last Taken Unknown] Allergy/AdvReac Type Severity Reaction Status Date / Time doxycycline Allergy Mild unknown Verified 11/04/22 09:25 sulfamethoxazole Allergy Mild unknown Verified 11/04/22 09:25 [From Bactrim] trimethoprim [From Bactrim] Allergy Mild unknown Verified 11/04/22 09:25 acetaminophen [From NyQuil] Allergy Hives Verified 11/04/22 09:25 amoxicillin [From Augmentin] Allergy Hives Verified 11/04/22 09:25 cefprozil [From Cefzil] Allergy Hives Verified 11/04/22 09:25 clavulanic acid Allergy Hives Verified 11/04/22 09:25 [From Augmentin] dextromethorphan Allergy Hives Verified 11/04/22 09:25 [From NyQuil] doxylamine [From NyQuil] Allergy Hives Verified 11/04/22 09:25 erythromycin base Allergy Hives Verified 11/04/22 09:25 gatifloxacin [From Tequin] Allergy Hives Verified 11/04/22 09:25 ibuprofen Allergy Other Verified 11/04/22 09:25 [From DayQuil Sinus Pressure/Pain] Iodinated Contrast Media Allergy Hives Verified 11/04/22 09:25 [CONTRASTS] lincomycin Allergy Hives Verified 11/04/22 09:25 metoclopramide [From Reglan] Allergy Other Verified 11/04/22 09:25 pseudoephedrine [From NyQuil] Allergy Hives Verified 11/04/22 09:25 Vfusicx-YZE-TfH Reductase Allergy Other Verified 11/30/22 13:52 Inhibitor morphine AdvReac Intermediate tachycardia Verified 11/04/22 09:25 Family History Father No problems noted. Mother CVA (cerebral vascular accident) Heart disease Sister Colon cancer Diabetes Brother Thyroid disorder Thyroid cancer Sister Cancer vaginal Diabetes Brother Diabetes Surgical History fallopian tube surgery H/O oophorectomy H/O tubal ligation History of coronary artery bypass graft x 3 (~11/26/22) History of ear surgery Hx of cholecystectomy Social History household members: spouse housing: house Smoking Status: Never smoker alcohol intake: never substance use type: does not use caffeine: Yes what type of physical activity do you participate in: walking frequency: 3-4 times per week seatbelt use: always do you feel safe at home: Yes additional social history: [place] Patient and both retired ROS ROS ED Constitutional Constitutional ED: Denies chills or fever(s) Eyes Eyes: Denies change in vision or diplopia ENT ENT ED: Denies rhinorrhea or sore throat Cardiovascular Cardiovascular: Denies chest pain or palpitations Respiratory/Chest Respiratory/Chest: Denies cough or dyspnea Gastrointestinal Gastrointestinal: Reports as per HPI, abdominal pain, belching and bloating; Denies diarrhea, nausea or vomiting Genitourinary Genitourinary ED: Denies dysuria or hematuria Musculoskeletal Musculoskeletal: Denies back pain or neck pain Integumentary Denies abscess or rash Neurologic Neurologic: Denies headache(s), paresthesias or weakness Psychiatric Psychiatric: Denies anxiety or suicidal thoughts EXAM Physical Exam Const Vital Signs: 12/22/22 03:37 Temperature 98.2 F Temperature Source Temporal Pulse Rate 88 Respiratory Rate 18 Blood Pressure 156/76 H Blood Pressure Mean 102 Pulse Ox 97 Positive well nourished, well developed and obese General Appearance ED: well developed and NAD Nutritional Appearance: obese HEENT Reports moist mucous membranes normocephalic and atraumatic Eyes PERRL and EOMs intact bilaterally Neck full ROM and supple Resp normal respiratory effort and clear to auscultation bilaterally Cardio regular rate, regular rhythm and no murmurs GI non-tender GI Narrative: Mildly distended but soft and nontender abdomen, wire site and epigastrium are benign and well-healing. No signs of cellulitis/infection. Recurrent belching. Inspection: abdominal distention Auscultation: normoactive bowel sounds Palpation: soft Back/Spine no CVA tenderness General Back: other FROM Extremity normal to inspection General Extremety ED: Negative for edema, pulses abnormal or tenderness General Extremity: Negative for edema or pulses abnormal Neuro oriented x3, CN's II-XII intact bilaterally and no sensory deficits noted Sensorium / Orientation: awake and alert Motor Exam: strength 5/5 throughout Skin no rashes or lesions noted and no wounds MDM MDM MDM Narrative Medical decision making narrative: Given that she is a relatively elderly female with a history of coronary diseasealthough she just had a CABG, cardiac etiologies are in the differential although thought less likely to be the case here since she has no other symptoms. Her cardiac work-up is unremarkable. She does have some nonspecific T wave flattening and inversions, however she just had cardiac surgery and her last EKG was prior to that. Therefore I think those changes are insignificant in context and more likely due to the fact that she had cardiac surgery. Her troponin is negative after having 5 or 6 hours of constant belching, ruling out acute coronary syndrome from intensive purposes. I did an acute abdominal series, shows a nonspecific bowel gas pattern, no signs of an obstruction, pneumomediastinum, pneumothorax, or any other acute chest abnormality, 4 views of my interpretation. Radiology in agreement. On reevaluation she is belching less but still having some occasional belching. I gave her a teaspoon of bakingsoda dissolved in about 5 ounces of water, and she will be discharged with instructions for supportive care. My suspicion is that eating the banana because this, I gave her a list of other foods to avoid before bed. Lab Data Attestation: I reviewed the patient's lab results. Labs: Laboratory Results - last 24 hr 12/22/22 12/22/22 04:15 04:15 WBC 10.2 RBC 4.33 Hgb 11.5 L Hct 36.6 L MCV 84.5 MCH 26.6 L MCHC 31.4 L RDW Std Deviation 43.8 RDW Coeff of Deny 14.2 Plt Count 408 MPV 8.7 Immature Gran % (Auto) 0.300 Neut % (Auto) 51.2 Lymph % (Auto) 31.0 Nobles % (Auto) 10.2 H Eos % (Auto) 6.5 H Baso % (Auto) 0.8 Absolute Neuts (auto) 5.2 Absolute Lymphs (auto) 3.15 Nucleated RBC % 0 Sodium 135 L Potassium 3.6 Chloride 98 Carbon Dioxide 27.0 Anion Gap 10 BUN 24 H Creatinine 1.22 H Est GFR (MDRD) Af Amer 56 L Est GFR (MDRD) Non-Af 46 L BUN/Creatinine Ratio 19.7 Glucose 175 H Calcium 9.4 Total Bilirubin 0.30 AST 14 L ALT 20 Alkaline Phosphatase 138 H Troponin I High Sens 7 Total Protein 7.8 Albumin 3.7 Globulin 4.1 Albumin/Globulin Ratio 0.9 Radiography Diagnostic Testing: Clinical Impression(s) from Imaging Studies Acute Abdomen Series 12/22/22 04:04 IMPRESSION: Negative chest and abdominal series. Electronically Signed: Ronnie Sun MD at 5:05 EDT Reading Location ID and State: [facility] / [place] Tel , Service support , Rhythm Strip Rhythm Strip: Sinus Rhythm Rate: 80 Ectopy: None EKG Initial EKG: Attestation: I personally reviewed and interpreted this EKG as follows: Interpretation: Sinus Rhythm, No Acute Injury Pattern and Non-Specific ST Changes Prior: Changed (But latest old EKG was pre-CABG) Discharge Plan Triage Chief Complaint: Abd Pain ED Provider: Al Perez Dx/Rx/DC Orders Clinical Impression: Belching Instructions: Low-Fiber Diet Prescriptions: No Action multivitamin,rs-imtj-lstmwurc tablet tablet 1 tab PO DAILY Zyrtec 10 mg capsule 10 mg PO DAILY omeprazole 40 mg capsule,delayed release(DR/EC) 20 mg PO BID ascorbic acid (vitamin C) 500 mg tablet 500 mg PO DAILY Ultra CoQ10 75 mg capsule 75 mg PO DAILY Gaviscon 80-14.2 mg tablet,chewable PO glimepiride 4 mg tablet 4 mg PO QAM melatonin 5 mg capsule 5 mg PO QHS albuterol sulfate 90 mcg/actuation HFA aerosol inhaler 2 puff inhalation Q6H PRN (Reason: Shortness Of Breath Or Wheezing) calcium carbonate 600 MG tablet 600 mg PO DAILY simvastatin 20 MG tablet 40 mg PO DAILY montelukast 10 MG tablet 10 mg PO DAILY budesonide-formoterol 1 INHALER inhaler 2 puff Inhalation BID PRN (Reason: Asthma) metformin 1,000 mg tablet,ER verito.retention 24 hr 1,000 mg PO BID magnesium oxide 400 mg (241.3 mg magnesium) tablet 400 mg PO DAILY 14 Days Qty: 14 0RF amiodarone 200 mg tablet 200 mg PO DAILY aspirin [Adult Low Dose Aspirin] 81 mg tablet,delayed release (DR/EC) 81 mg PO DAILY Jardiance 10 mg tablet 10 mg PO DAILY furosemide 40 mg tablet 40 mg PO DAILY lisinopril 5 mg tablet 5 mg PO DAILY metoprolol tartrate 25 mg tablet 25 mg PO BID oxycodone 5 mg tablet 5 mg PO Q6H PRN potassium chloride 20 mEq tablet extended release 20 meq PO DAILY Primary Care Provider: Kali Bacon Referrals: Kali Bacon MD [Primary Care Provider] - 3-5 Days if not improving Activity Restrictions/Additional Instructions: Some foods and drinks can also cause more frequent belching. These include carbonated drinks, alcohol, and foods high in starch, sugar, or fiber that causegas. Common culprits ?include: * beans * lentils * broccoli * peas * onions * cabbage * cauliflower * bananas * raisins * whole-wheat bread Disposition Disposition: Home, Self Care What to do if you have Problems For any increased pain, shortness of breath, bleeding, nausea or vomiting, chestpain, or any unexpected problems, contact your Primary Care Provider. Call [facility] ([phone]) or report to the closest Emergency Room. Call 911 if necessary. 12/22/22 2529 <Electronically signed by Al Perez MD> Cosigner Signature (if applicable): CC: Dr. Kali Bacon MD ~ Signed [facility] Work Phone: evaluation noteNo assessment information available [facility] Work Phone: evaluation note* Diagnosis Wellness examination- Primary Essential (primary) hypertension Unspecified essential hypertension Hypercholesterolemia Pure hypercholesterolemia 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) Type II or unspecified type diabetes mellitus without mention of complication, not stated as uncontrolled Mild intermittent asthma without complication Unspecified asthma Polyarthralgia Pain in joint, multiple sites documented in this encounter [facility] note* Diagnosis Onset Date Resolution Status 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 Encounter for routine gynecological examination noneactive [facility] Work Phone: evaluation note* Diagnosis Acute pain of left shoulder- Primary documented in this encounter [facility] note* Diagnosis Onset Date Resolution Status 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 Encounter for routine gynecological examination noneactive 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 Chest pain acute HTN (hypertension) chronic [facility] Work Phone: evaluation note* Diagnosis Coronary 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[place] coronary 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 of angina pectoris (HCC)- Primary Atherosclerotic heart disease of [place] coronary artery without angina pectoris documented in this encounter [facility] note* Diagnosis 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)- Primary Type II or unspecified type diabetes mellitus without mention of complication, not stated as uncontrolled documented in this encounter [facility] note* Diagnosis S/P CABG x 3- Primary Postsurgical aortocoronary bypass status Coronary 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[place] coronary 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 of angina pectoris (HCC) documented in this encounter [facility] note* Diagnosis SOB (shortness of breath) Shortness of breath documented in this encounter [facility] note* Diagnosis Pressure injury of buttock, stage 3, unspecified laterality (HCC)- Primary [facility]* Diagnosis 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)- Primary Type II or unspecified type diabetes mellitus without mention of complication, not stated as uncontrolled documented in this encounter [facility] note* Diagnosis UTI symptoms- Primary Other symptoms involving urinary system Otitis externa of both ears, unspecified chronicity, unspecified type [facility]* Diagnosis Belching- Primary Flatulence, eructation, and gas pain Bloating Flatulence, eructation, and gas pain Bile reflux gastritis Other specified gastritis without mention of hemorrhage documented in this encounter [facility] note* Diagnosis Urinary frequency- Primary documented in this encounter [facility] note* Diagnosis Skin yeast infection- Primary Candidiasis of skin and nails [facility]* Diagnosis Belching symptom Flatulence, eructation, and gas pain [facility]* Diagnosis Belching symptom Flatulence, eructation, and gas pain [facility]* Diagnosis Rash- Primary Rash and other nonspecific skin eruption Tinea cruris Dermatophytosis of groin and perianal area [facility] Diagnosis Hypertension, unspecified type- Primary documented in this encounter [facility] note* Diagnosis Hypertension, essential- Primary Unspecified essential hypertension Pure hypercholesterolemia documented in this encounter [facility] note* Diagnosis Wellness examination- Primary Encounter for screening for depression Encounter for counseling regarding advance directives Hypertension, unspecified type Essential (primary) hypertension Unspecified essential hypertension Arteriosclerosis of coronary artery Coronary atherosclerosis of unspecified type of vessel, [place] or graft Paroxysmal atrial fibrillation (HCC) Atrial fibrillation 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) Screening for deficiency anemia Screening for other and unspecified deficiency anemia Pure hypercholesterolemia documented in this encounter [facility] note* Diagnosis Onset Date Resolution Status ASCUS with positive high risk HPV cervical acute Candidal dermatitis acute 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 OAB (overactive bladder) acu te Encounter for routine gynecological examination noneactive [facility] Work Phone: Evaluation note* Diagnosis Onset Date Resolution Status ASCUS with positive high risk HPV cervical acute Candidal dermatitis acute LGSIL (low grade squamous in traepithelial dysplasia) acute OAB (overactive bladder) acu te Encounter for routine gynecological examination noneactive History of coronary artery bypass graft x 3 November, 3 acute Hyperlipidemia acute Left carotid bruit acute Postoperative atrial fibrillation acute HTN (hypertension) chronic [facility] Work Phone: Evaluation note* Diagnosis Rash- Primary Rash and other nonspecific skin eruption [facility] Diagnosis Onset Date Resolution Status ASCUS with positive high risk HPV cervical acute Candidal dermatitis acute LGSIL (low grade squamous in traepithelial dysplasia) acute OAB (overactive bladder) acu te Encounter for routine gynecological examination noneactive History of coronary artery bypass graft x 3 November, 3 acute Hyperlipidemia acute Left carotid bruit acute Postoperative atrial fibrillation acute HTN (hypertension) chronic Carotid stenosis acute [facility] Work Phone: Evaluation note* Diagnosis Pure hypercholesterolemia- Primary Hypertension, unspecified type 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) Type II or unspecified type diabetes mellitus without mention of complication, not stated as uncontrolled Arteriosclerosis of coronary artery Coronary atherosclerosis of unspecified type of vessel, [place] or graft Paroxysmal atrial fibrillation (HCC) Atrial fibrillation Mild intermittent asthma without complication Unspecified asthma Polyarthralgia Pain in joint, multiple sites [facility] Diagnosis Type 2 diabetes mellitus without complication, without long-term current use of insulin (HCC) [facility] Diagnosis Hypertension, unspecified type- Primary Type 2 diabetes mellitus without complication, without long-term current use of insulin (HCC) Pure hypercholesterolemia 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) Type II or unspecified type diabetes mellitus without mention of complication, not stated as uncontrolled Arteriosclerosis of coronary artery Coronary atherosclerosis of unspecified type of vessel, [place] or graft Paroxysmal atrial fibrillation (HCC) Atrial fibrillation Stenosis of carotid artery, unspecified laterality Internal carotid artery stent present Side effect of medication [facility] Anemia, unspecified type- Primary [facility] Diagnosis Iron deficiency anemia, unspecified iron deficiency anemia type- Primary [facility] Diagnosis Preop examination- Primary Preoperative examination, unspecified Degeneration of intervertebral disc of lumbar region with discogenic back pain Anemia, unspecified type [facility] Diagnosis Iron deficiency anemia, unspecified iron deficiency anemia type- Primary [facility] Diagnosis Iron deficiency anemia, unspecified iron deficiency anemia type- Primary [facility] Diagnosis Iron deficiency anemia, unspecified iron deficiency anemia type- Primary [facility] Diagnosis Frequency of urination- Primary Urinary frequency [facility] Diagnosis 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)- Primary Type II or unspecified type diabetes mellitus without mention of complication, not stated as uncontrolled Change in mole [facility] Diagnosis Iron deficiency anemia, unspecified iron deficiency anemia type- Primary Anemia, unspecified type [facility] Diagnosis Iron deficiency anemia, unspecified iron deficiency anemia type- Primary [facility] Diagnosis Other iron deficiency anemia- Primary Iron deficiency anemia, unspecified iron deficiency anemia type [facility] Diagnosis Iron deficiency anemia, unspecified iron deficiency anemia type- Primary [facility] Diagnosis Family history of colon cancer- Primary Family history of malignant neoplasm of gastrointestinal tract Iron deficiency anemia, unspecified iron deficiency anemia type [facility] Diagnosis URI, acute- Primary Acute upper respiratory infections of unspecified site Asthma with acute exacerbation, unspecified asthma severity, unspecified whether persistent [facility] Diagnosis Change in mole- Primary [facility] Diagnosis Encounter for support and coordination of transition of care- Primary Acute pyelonephritis Acute pyelonephritis without lesion of renal medullary necrosis Sepsis due to Escherichia coli without acute organ dysfunction (HCC) Type 2 diabetes mellitus without complication, without long-term current use of insulin ([facility]) Visit for suture removal Encounter for removal of sutures [facility] Diagnosis Vaginal itching- Primary Pruritus of genital organs H/O pyelonephritis Personal history of urinary (tract) infection [facility] Diagnosis Iron deficiency anemia, unspecified iron deficiency anemia type- Primary Other iron deficiency anemia [facility] Diagnosis Other dietary vitamin B12 deficiency anemia- Primary Iron deficiency anemia, unspecified iron deficiency anemia type Other iron deficiency anemia [facility] Diagnosis Other dietary vitamin B12 deficiency anemia- Primary [facility] Diagnosis Iron deficiency anemia, unspecified iron deficiency anemia type Family history of colon cancer Family history of malignant neoplasm of gastrointestinal tract [facility] Diagnosis Right arm pain- Primary Pain in limb Muscle strain of right upper arm, initial encounter Anemia due to vitamin B12 deficiency, unspecified B12 deficiency type Right arm pain Pain in limb [facility]* Diagnosis Right arm pain Pain in limb [facility] Diagnosis Other dietary vitamin B12 deficiency anemia- Primary [facility] Diagnosis Other dietary vitamin B12 deficiency anemia- Primary [facility] Diagnosis Iron deficiency anemia, unspecified iron deficiency anemia type- Primary Other dietary vitamin B12 deficiency anemia [facility]* Diagnosis Type 2 diabetes mellitus without complication, without long-term current use of insulin (HCC) [facility] Diagnosis Other dietary vitamin B12 deficiency anemia- Primary [facility] Diagnosis Preop examination- Primary Preoperative examination, unspecified Hypomagnesemia 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 and lower extremity pain Arteriosclerosis of coronary artery Coronary atherosclerosis of unspecified type of vessel, [place] or graft Essential (primary) hypertension Unspecified essential hypertension Type 2 diabetes mellitus without complication, without long-term current use of insulin (HCC) Anemia due to vitamin B12 deficiency, unspecified B12 deficiency type [facility]* Diagnosis Hypomagnesemia- Primary Disorders of magnesium metabolism [facility] Additional Instructions Please continue your blood pressure medication as directed by your doctor but please keep track of it once a day to ensure you do not need any further medication added. If you have any further concerns or worsening of symptoms please return to the ER for repeat evaluation [facility] Work Phone: Hospital Discharge instructions Additional Instructions Some foods and drinks can also cause more frequent belching. These include carbonated drinks, alcohol, and foods high in starch, sugar, or fiber that cause gas. Common culprits include: beans lentils broccoli peas onions cabbage cauliflower bananas raisins whole-wheat breadWAdena Pike Medical Center Work Phone: [facility] (narrative)* Diagnostic Procedure Only (Routine) - Closed Specialty Diagnoses / Procedures Referred By Donavon t Referred To Contact XR IMAGING Diagnoses Belching symptom Procedures XR ABDOMEN 2V ROUTINE SUPINE W UPRIGHT/DECUB/CTL RADIOLOGIC EXAM [place]BDOMEN 2 [place] [address] [place] [address] [place] [address] Referral ID Status Reason Start Date Expiration Date V isits Requested Visits Authorized [id number] Closed Auto-Generate d Referral 01/06/2023 02/05/2024 1 1 [facility] for referral (narrative)* Outpatient Procedure (Routine) - Closed Specialty Diagnoses / Procedures Referred By Donavon mendoza Referred To Contact Diagnoses Belching symptom Procedures EGD DIAGNOSTIC ESOPHAGOGASTRODUODENOSCOPY [place] [address] [place] [address] Av Procedure [address] [place] [address] Referral ID Status Reason Start Date Expiration Date V isits Requested Visits Authorized [id number] Closed Auto-Generate d Referral 01/14/2023 04/14/2023 1 1 [facility] for referral (narrative)* Outpatient Procedure (Routine) - New Request Specialty Diagnoses / Procedures Referred By Donavon mendoza Referred To Contact [facility] Diagnoses Iron deficiency anemia, unspecified iron deficiency anemia type Family history of colon cancer Procedures COLONOSCOPY DIAGNOSTIC COLONOSCOPY FLX DX W/COLLJ SPEC WHEN Halie Law APRN.[employer]CE [employer]ER [address] [place] [address] [facility] [address] [place] [address] Referral ID Status Reason Start Date Expiration Date Visits Requested Visits Authorized [id number] New Request Auto-Generat ed Referral 09/14/2024 09/14/2025 1 1 * Outpatient Procedure (Routine) - New Request Specialty Diagnoses / Procedures Referred By Donavon mendoza Referred To Contact [facility] Diagnoses Iron deficiency anemia, unspecified iron deficiency anemia type Procedures EGD DIAGNOSTIC ESOPHAGOGASTRODUODENOSC OPY TRANSORAL DIAGNOSTIC Halie Jin APRN.[employer]NACE T[employer]ER [address] [place] [address] [facility] [address] [place] [address] Referral ID Status Reason Start Date Expiration Date Visits Requested Visits Authorized [id number] New Request Auto-Generat ed Referral 09/14/2024 09/14/2025 1 1 [facility]No reason for referral information availableWAdena [facility] Work Phone: Reason for visit Narrative* Outpatient Procedure (Routine) - Closed Specialty Diagnoses / Procedures Referred By Donavon t Referred To Contact Diagnoses Belching symptom Procedures EGD DIAGNOSTIC ESOPHAGOGASTRODUODENOSCOPY [place] [address] [place] [address] Av Procedure [address] [place] [address] Referral ID Status Reason Start Date Expiration Date V isits Requested Visits Authorized [id number] Closed Auto-Generate d Referral 01/14/2023 04/14/2023 1 1 [facility] N[facility]* Outpatient Procedure (Routine) - Closed Specialty Diagnoses / Procedures Referred By Donavon t Referred To Contact Diagnoses Iron deficiency anemia, unspecified iron deficiency anemia type Family history of colon cancer Procedures COLONOSCOPY DIAGNOSTIC COLONOSCOPY FLX DX W/COLLJ SPEC WHEN Halie Law APRN.[employer] T[employer]ER [address] [place] [address] Phone: tel: fax: [facility] [address] [place] [address] Referral ID Status Reason Start Date Expiration Date V isits Requested Visits Authorized [id number] Closed Auto-Generate d Referral 11/15/2024 09/14/2025 1 1 [facility]* Diagnostic Procedure Only (Routine) - Closed Specialty Diagnoses / Procedures Referred By Donavon t Referred To Contact XR IMAGING Diagnoses Right arm pain Procedures XR HUMERUS 2V AP/LAT RIGHT RADEX HUMERUS MINIMUM 2 VIEWS Kali Bacon MD [address] [place] [address] Phone: tel: fax: [place] [address] Referral ID Status Reason Start Date Expiration Date V isits Requested Visits Authorized [id number] Closed Auto-Generate d Referral 11/20/2024 12/20/2025 1 1 [facility] Chief Complaint and Reason for Visit Chief Complaint UTI, HX FREQ STONES Chief Complaint SCREENING Chief Complaint SCREENING Annual (CIGAR BANDER HAND) Unspecified abnormal cytological findings in speci Reason for Visit LGSIL (low grade squ amous intraepithelial dysplasia) Encounter for routine gynecological examination Chief Complaint SCREENING Annual (CIGAR BANDER HAND) Unspecified abnormal cytological findings in speci L SHOULDER PAIN cp Reason for Visit LGSIL (low grade squ amous intraepithelial dysplasia) Encounter for routine gynecological examination Chief Complaint Annual (CIGAR BANDER HAND) Unspecified abnormal cytological findings in speci L SHOULDER PAIN cp Reason for Visit LGSIL (low grade squ [place] intraepithelial dysplasia) Encounter for routine gynecological examination Chief Complaint Annual (CIGAR BANDER HAND) Unspecified abnormal cytological findings in speci L SHOULDER PAIN cp Colposcopy CP (JORDI) CHEST PAIN / CAD Reason for Visit LGSIL (low grade squ amous intraepithelial dysplasia) Encounter for routine gynecological examination LGSIL (low grade squamous intraepithelial dysplasia) Chest pain HTN (hypertension) Chief Complaint Annual (CIGAR BANDER HAND) Unspecified abnormal cytological findings in speci L SHOULDER PAIN cp Colposcopy CP (JORDI) CHEST PAIN / CAD URINE TOXICOLOGY Reason for Visit LGSIL (low grade squ [place] intraepithelial dysplasia) Encounter for routine gynecological examination LGSIL (low grade squamous intraepithelial dysplasia) Chest pain HTN (hypertension) Chief Complaint Annual (CIGAR BANDER HAND) Unspecified abnormal cytological findings in speci L SHOULDER PAIN cp Colposcopy CP (JORDI) CHEST PAIN / CAD URINE TOXICOLOGY abd pain Reason for Visit LGSIL (low grade [place] intraepithelial dysplasia) Encounter for routine gynecological examination LGSIL (low grade squamous intraepithelial dysplasia) Chest pain HTN (hypertension) Chief Complaint Colposcopy CP (JORDI) CHEST PAIN / CAD URINE TOXICOLOGY abd pain HYPERTENSION CABG 11/26 [facility] SWELLING LEFT LIMB Reason for Visit LGSIL (low grade squ [place] intraepithelial dysplasia) Chest pain HTN (hypertension) History of coronary artery bypass graft x 3 Hyperlipidemia Postoperative atrial fibrillation HTN (hypertension) Chief Complaint URINE TOXICOLOGY abd pain HYPERTENSION CABG 11/26 [facility] SWELLING LEFT LIMB wound wound PRE PROCEDURE DM Reason for Visit History of coronary artery bypass graft x 3 Hyperlipidemia Postoperative atrial fibrillation HTN (hypertension) DM type 2 (diabetes mellitus, type 2) Pressure ulcer of left buttock, stage 2 Pressure ulcer of right buttock, stage 2 Chief Complaint URINE TOXICOLOGY abd pain HYPERTENSION CABG 11/26 [facility] SWELLING LEFT LIMB wound wound PRE PROCEDURE DM wound Reason for Visit History of coronary artery bypass graft x 3 Hyperlipidemia Postoperative atrial fibrillation HTN (hypertension) DM type 2 (diabetes mellitus, type 2) Pressure ulcer of left buttock, stage 2 Pressure ulcer of right buttock, stage 2 Chief Complaint abd pain HYPERTENSION CABG 11/26 [facility] SWELLING LEFT LIMB wound wound PRE PROCEDURE PREOP DM wound wound wound [id number], [id number], [id number] Reason for Visit History of coronary artery bypass graft x 3 Hyperlipidemia Postoperative atrial fibrillation HTN (hypertension) DM type 2 (diabetes mellitus, type 2) Pressure ulcer of left buttock, stage 2 Pressure ulcer of right buttock, stage 2 DM type 2 (diabetes mellitus, type 2) Pressure ulcer of left buttock, stage 2 Pressure ulcer of right buttock, stage 2 Chief Complaint abd pain HYPERTENSION CABG 11/26 [facility] SWELLING LEFT LIMB wound wound PRE PROCEDURE PREOP DM wound wound [id number], [id number], [id number] 3 M FU wound wound Reason for Visit History of coronary artery bypass graft x 3 Hyperlipidemia Postoperative atrial fibrillation HTN (hypertension) DM type 2 (diabetes mellitus, type 2) Pressure ulcer of left buttock, stage 2 Pressure ulcer of right buttock, stage 2 History of coronary artery bypass graft x 3 Hyperlipidemia Postoperative atrial fibrillation HTN (hypertension) DM type 2 (diabetes mellitus, type 2) Pressure ulcer of left buttock, stage 2 Pressure ulcer of right buttock, stage 2 Chief Complaint SCREENING Annual (CIGAR BANDER HAND) Reason for Visit ASCUS with positive high risk HPV cervical Candidal dermatitis LGSIL (low grade squamous intraepithelial dysplasia) OAB (overactive bladder) Encounter for routine gynecological examination Chief Complaint SCREENING Annual (CIGAR BANDER HAND) 6 M FU LEFT BRUIT Reason for Visit ASCUS with positive high risk HPV cervical Candidal dermatitis LGSIL (low grade squamous intraepithelial dysplasia) OAB (overactive bladder) Encounter for routine gynecological examination History of coronary artery bypass graft x 3 Hyperlipidemia Left carotid bruit Postoperative atrial fibrillation HTN (hypertension) Chief Complaint SCREENING Annual (CIGAR BANDER HAND) 6 M FU LEFT BRUIT CONSULT-CAROTID E-ORDER Reason for Visit ASCUS with positive high risk HPV cervical Candidal dermatitis LGSIL (low grade squamous intraepithelial dysplasia) OAB (overactive bladder) Encounter for routine gynecological examination History of coronary artery bypass graft x 3 Hyperlipidemia Left carotid bruit Postoperative atrial fibrillation HTN (hypertension) Carotid stenosis Chief Complaint SCREENING Annual (CIGAR BANDER HAND) 6 M FU LEFT BRUIT CONSULT-CAROTID E-ORDER CARBAJAL,ALL ICA STENOSIS > 70% Reason for Visit ASCUS with positive high risk HPV cervical Candidal dermatitis LGSIL (low grade squamous intraepithelial dysplasia) OAB (overactive bladder) Encounter for routine gynecological examination History of coronary artery bypass graft x 3 Hyperlipidemia Left carotid bruit Postoperative atrial fibrillation HTN (hypertension) Carotid stenosis Chief Complaint Admit Date SURGICAL AFTERCARE July 12, 2024 9:52am BACK PAIN July 17, 2024 2 :40pm LUMBAR SPINE July 20, 2024 8 :48am 360 Lumbar Fusion L4-5 possible cement a ugmentatio August 31, 2024 9:00am PREOP August 31, 2024 9 :36am 4 M FU September 06, 2024 1 1:16am AFIB September 11, 2024 8 :25am Atrial fibrillation September 11, 2024 8 :47am Annual (CIGAR BANDER HAND) September 18, 2024 3 :21pm OSTEO September 21, 2024 9 :19am Reason for Visit Admit Date Spinal stenosis of lumbar re gion with neurogenic claudication July 20, 2024 8:48am Spondylolisthesis of lumbar region Decem 2023 8:48am Anemia September 06, 2024 1 1:16am Carotid stenosis, left September 06 11:16am History of coronary artery bypass graft x 3 September 06, 2024 11:16am Hyperlipidemia September 06, 2024 1 1:16am Postoperative atrial fibrillation Januar y 2024 11:16am HTN (hypertension) September 06, 2024 1 1:16am ASCUS with positive high risk HPV cervic al September 18, 2024 3:21pm LGSIL (low grade squamous intraepithelia l dysplasia) September 18, 2024 3:21pm Encounter for routine gynecological exam ination September 18, 2024 3:21pm Chief Complaint Admit Date SURGICAL AFTERCARE July 12, 2024 9:52am BACK PAIN July 17, 2024 2 :40pm LUMBAR SPINE July 20, 2024 8 :48am 360 Lumbar Fusion L4-5 possible cement a ugmentatio August 31, 2024 9:00am PREOP August 31, 2024 9 :36am 4 M FU September 06, 2024 1 1:16am AFIB September 11, 2024 8 :25am Atrial fibrillation September 11, 2024 8 :47am Annual (CIGAR BANDER HAND) September 18, 2024 3 :21pm OSTEO September 21, 2024 9 :19am vaginal itching and rash October 25 8:03am Reason for Visit Admit Date Spinal stenosis of lumbar re gion with neurogenic claudication July 20, 2024 8:48am Spondylolisthesis of lumbar region Decem 2023 8:48am Anemia September 06, 2024 1 1:16am Carotid stenosis, left September 06 11:16am History of coronary artery bypass graft x 3 September 06, 2024 11:16am Hyperlipidemia September 06, 2024 1 1:16am Postoperative atrial fibrillation Januar y 2024 11:16am HTN (hypertension) September 06, 2024 1 1:16am ASCUS with positive high risk HPV cervic al September 18, 2024 3:21pm LGSIL (low grade squamous intraepithelia l dysplasia) September 18, 2024 3:21pm Encounter for routine gynecological exam ination September 18, 2024 3:21pm Vulvar atrophy October 25, 2024 8:0 3am Chief Complaint Admit Date OSTEO September 21, 2024 9 :19am vaginal itching and rash October 25 8:03am 1 Y FU November 28, 2024 1:1 1pm lumbar spine December 25, 2024 3:16p m room 4 December 25, 2024 3:53p m S/P L TCAR January 16, 2025 9:47a m Reason for Visit Admit Date Vulvar atrophy October 25, 2024 8:0 3am Carotid stenosis, left November 28, 2024 1:11pm History of coronary artery bypass graft x 3 November 28, 2024 1:11pm Hyperlipidemia November 28, 2024 1:1 1pm Postoperative atrial fibrillation November 28, 2024 1:11pm HTN (hypertension) November 28, 2024 1:1 1pm Osteoporosis December 25, 2024 3:16p m Spinal stenosis of lumbar region with ne urogenic claudication December 25, 2024 3:16pm Spondylolisthesis of lumbar region December 142024 3:16pm Chief Complaint Admit Date vaginal itching and rash October 25 8:03am 1 Y FU November 28, 2024 1:1 1pm lumbar spine December 25, 2024 3:16p m room 4 December 25, 2024 3:53p m S/P L TCAR January 16, 2025 9:47a m lumbar spine January 26, 2025 12:4 3pm Family History No Family History Records Found Relationship Condition Age at Onset Recorded Date/T noam mother Cerebrovascular accident (CVA) Unknown Cardiac disease Unknown sister Malignant neoplasm of colon Unknown Diabetes mellitus Unknown brother Disorder of thyroid Unknown Malignant neoplasm of thyroid gland Unkno wn sister Malignant neoplasm Unknown brother Diabetes mellitus Unknown Advance Directives No Advanced Directives Records FoundDocuments on File Type Date Recorded 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 Advance Directive(s) 09/18/2020 7:55 AM Date Activated Date Inactivated Comments 09/26/2024 6:12 AM 09/29/2024 6:11 PM Question Answer Comments Full Code Order Discussed With: Patient Advance Directive Response Recorded Date/ Time Living Will No May 23 6:34am Power of Dairy Feed Worker No May 23 017 6:34am Documents on File Type Date Recorded 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 Advance Directive(s) 09/18/2020 7:55 AM Advance Directive(s) 04/29/2020 8:26 AM Advance Directive(s) 04/12/2020 10:04 AM Documents on File Type Date Recorded 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 Advance Directive(s) 09/18/2020 7:55 AM Advance Directive Response Recorded Date/ Time Living Will No May 23 5:34am Power of Dairy Feed Worker No May 23 017 5:34am Advance Directive Response Recorded Date/ Time Living Will No October 08 023 2:04am Power of Dairy Feed Worker No October 08, 2022 2:04am Advance Directive Response Recorded Date/ Time Advance Directives on File Yes November 10, 2022 10:51am Name of Medical Power of Dairy Feed Worker Rody Baron November 10, 2022 10:51am Advance Directives Yes November 10 023 10:51am Living Will Yes November 10, 2022 10:51am Power of Dairy Feed Worker Yes November 10 10:51am Latest Code Status on File Code Status Date Activated Date Inactivated Comments Full Code 11/26/2022 5:47 AM Latest Code Status on File Code Status Date Activated Date Inactivated Comments Full Code 11/26/2022 5:47 AM 12/01/2022 4:05 PM Documents on File Type Date Recorded 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 Advance Directives and Livin g Will 12/02/2022 10:05 AM Advance Directive Response Recorded Date/ Time Advance Directives on File Yes November 10, 2022 10:51am Name of Medical Power of Dairy Feed Worker Rody Baron November 10, 2022 10:51am Name of Medical Power of Dairy Feed Worker Rody Baron December 22, 2022 3:37am Advance Directives Yes November 10 023 10:51am Living Will Yes December 22, 2022 3: 37am Power of Dairy Feed Worker Yes December 22, 2022 3:37am Documents on File Type Date Recorded 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 Advance Directives and Livin g Will 12/02/2022 10:05 AM Latest Code Status on File Code Status Date Activated Date Inactivated Comments Full Code 11/26/2022 5:47 AM 12/01/2022 4:05 PM Advance Directive Response Recorded Date/ Time Advance Directives on File Yes November 10, 2022 10:51am Name of Medical Power of Dairy Feed Worker Rody Baron November 10, 2022 10:51am Name of Medical Power of Dairy Feed Worker Rody Baron December 22, 2022 3:37am Name of Medical Power of Dairy Feed Worker Rody baron January 04, 2023 7:22pm Advance Directives Yes November 10, 023 10:51am Living Will Yes January 04, 2023 7 :22pm Power of Dairy Feed Worker Yes January 04, 2023 7:22pm Advance Directive Response Recorded Date/ Time Name of Medical Power of Dairy Feed Worker Rody Baron December 22, 2022 3:37am Name of Medical Power of Dairy Feed Worker Rody baron January 04, 2023 7:22pm Advance Directives Yes November 10 023 10:51am Living Will Yes January 04, 2023 7 :22pm Power of Dairy Feed Worker Yes January 04, 2023 7:22pm Advance Directive Response Recorded Date/ Time Advance Directives Yes November 10 023 9:51am Living Will Yes January 04, 2023 6 :22pm Power of Dairy Feed Worker Yes January 04, 2023 6:22pm Advance Directive Response Recorded Date/ Time Advance Directives Yes November 10 10:51am Living Will Yes January 04, 2023 7 :22pm Power of Dairy Feed Worker Yes January 04, 2023 7:22pm Advance Directive Response Recorded Date/ Time Living Will No January 25, 2024 1:00pm Power of Dairy Feed Worker No January 24 1:00pm Living Will Yes August 29 9:17am Power of Dairy Feed Worker Yes August 29, 2024 9:17am Name of Medical Power of Dairy Feed Worker SPOUSE August 29, 2024 9:17am Advance Directives Yes November 10 9:51am Advance Directive Response Recorded Date/ Time Living Will No January 25, 2024 2:00pm Power of Dairy Feed Worker No January 24 2:00pm Living Will Yes August 29 10:17am Power of Dairy Feed Worker Yes August 29, 2024 10:17am Name of Medical Power of Dairy Feed Worker SPOUSE August 29, 2024 10:17am Advance Directives Yes November 10 10:51am Advance Directive Response Recorded Date/ Time Living Will No January 25, 2024 2:00pm Do you have a Healthcare Power of Dairy Feed Worker? No January 25, 2024 2:00pm Living Will Yes August 29 10:17am Do you have a Healthcare Power of Dairy Feed Worker? Yes August 29, 2024 10:17am Name of Medical Power of Dairy Feed Worker SPOUSE August 29, 2024 10:17am Advance Directives Yes November 10 10:51am Date Activated Date Inactivated Comments 09/26/2024 6:12 AM 09/29/2024 6:11 PM Question Answer Comments Full Code Order Discussed With: Patient Advance Directive Response Recorded Date/ Time Living Will Yes January 04, 2023 7 :22pm Do you have a Healthcare Power of Dairy Feed Worker? Yes January 04, 2023 7:22pm Advance Directives Yes November 10, 2 023 10:51am Reason for Referral Specialty Diagnoses / Procedures Referred By Contac t Referred To Contact Kali Bacon MD [address] [place] [address] Referral ID Status Reason Start Date Expiration Date V isits Requested Visits Authorized [id number] Pending Review 1 1 Referral ID Status Reason Start Date Expiration Date V isits Requested Visits Authorized [id number] Pending Review 1 1 Specialty Diagnoses / Procedures Referred By Contac t Referred To Contact Abraham Harris MD [address], [address] [place] [address] Referral ID Status Reason Start Date Expiration Date Visits Re quested Visits Authorized [id number] Closed 1 1 Specialty Diagnoses / Procedures Referred By Contac t Referred To Contact Elsie Pedraza, [facility] [address] [place] [address] Referral ID Status Reason Start Date Expiration Date Visits Re quested Visits Authorized [id number] Closed 1 1 Specialty Diagnoses / Procedures Referred By Contac t Referred To Contact Diagnoses Iron deficiency anemia, unspecified iron deficiency anemia type Procedures CONSULT TO HEMATOLOGY/ONCOLOGY OFFICE/[facility]IENT [facility] 60 MINUTES Kali Bacon MD [address] [place] [address] Referral ID Status Reason Start Date Expiration Date Visits Requested Visits Authorized [id number] Authorized PCP Requested Referral 08/22/2024 08/22/2025 1 1 Specialty Diagnoses / Procedures Referred By Contac t Referred To Contact General Surgery Diagnoses Iron deficiency anemia, unspecified iron deficiency anemia type Procedures CONSULT TO GENERAL SURGERY OFFICE/[facility]PATIENT [facility] [address] [place] [address] Referral ID Status Reason Start Date Expiration Date Visits Requested Visits Authorized [id number] Authorized PCP Requested Referral 09/05/2024 09/05/2025 1 1 Summary Purpose Medications Administered Section Inactive Administered Medications - up to 3 most recent administrations Medication Order MAR Action Action Date Dose Rate Site NaCl 0.9% iv infusion 30 mL/hr, INTRAVENOUS, CONTINUOUS, Starting on Odilia 01/14/23 at 1330, Until Odilia 01/14/23 at 1515, Preprocedure Restarted 01/14/2023 2:16 PM EDT Continued by Anesthesia 01/14/2023 2:07 PM EDT 30 mL/hr New Bag/Syringe/Bottle 01/14/2023 1:47 PM EDT 30 mL/hr 3 0 mL/hr Additional Source Comments Goals (unrecognized section and content) Goals may be documented in a n alternate sectionGoals may be documented in an alternate sectionGoals may be documented in an alternate sectionGoals may be documented in an alternate sectionGoals may be documented in an alternate sectionGoals may be documented in an alternate sectionGoals may be documented in an alternate sectionGoals may be documented in an alternate sectionGoals may be documented in an alternate sectionGoals may be documented in an alternate sectionGoals may be documented in an alternate sectionGoals may be documented in an alternate sectionGoals may be documented in an alternate sectionGoals may be documented in an alternate sectionGoals may be documented in an alternate sectionGoals may be documented in an alternate sectionGoals may be documented in an alternate sectionGoals may be documented in an alternate sectionGoals may be documented in an alternate sectionGoals may be documented in an alternate sectionGoals may be documented in an alternate sectionGoals may be documented in an alternate sectionGoals may be documented in an alternate sectionGoals may be documented in an alternate section Source Comments (unrecognize d section and content) In the event this informatio n is protected by the Federal Confidentiality of Alcohol and Drug Abuse Patient Records regulations: The Federal rules restrict any use of the information to criminally investigate or prosecute any alcohol or drug abuse patient.[facility] the event this information is protected by the Federal Confidentiality of Alcohol and Drug Abuse Patient Records regulations: The Federal rules restrict any use of the information to criminally investigate or prosecute any alcohol or drug abuse patient.[facility]In the event this information is protected by the Federal Confidentiality of Alcohol and Drug Abuse Patient Records regulations: The Federal rules restrict any use of the information to criminally investigate or prosecute any alcohol or drug abuse patient.[facility]In the event this information is protected by the Federal Confidentiality of Alcohol and Drug Abuse Patient Records regulations: The Federal rules restrict any use of the information to criminally investigate or prosecute any alcohol or drug abuse patient.[facility]In the event this information is protected by the Federal Confidentiality of Alcohol and Drug Abuse Patient Records regulations: The Federal rules restrict any use of the information to criminally investigate or prosecute any alcohol or drug abuse patient.[facility]In the event this information is protected by the Federal Confidentiality of Alcohol and Drug Abuse Patient Records regulations: The Federal rules restrict any use of the information to criminally investigate or prosecute any alcohol or drug abuse patient.[facility] HospitalIn the event this information is protected by the Federal Confidentiality of Alcohol and Drug Abuse Patient Records regulations: The Federal rules restrict any use of the information to criminally investigate or prosecute any alcohol or drug abuse patient.[facility] HospitalIn the event this information is protected by the Federal Confidentiality of Alcohol and Drug Abuse Patient Records regulations: The Federal rules restrict any use of the information to criminally investigate or prosecute any alcohol or drug abuse patient.[facility]In the event this information is protected by the Federal Confidentiality of Alcohol and Drug Abuse Patient Records regulations: The Federal rules restrict any use of the information to criminally investigate or prosecute any alcohol or drug abuse patient.[facility] HospitalIn the event this information is protected by the Federal Confidentiality of Alcohol and Drug Abuse Patient Records regulations: The Federal rules restrict any use of the information to criminally investigate or prosecute any alcohol or drug abuse patient.[facility] HospitalIn the event this information is protected by the Federal Confidentiality of Alcohol and Drug Abuse Patient Records regulations: The Federal rules restrict any use of the information to criminally investigate or prosecute any alcohol or drug abuse patient.[facility] HospitalIn the event this information is protected by the Federal Confidentiality of Alcohol and Drug Abuse Patient Records regulations: The Federal rules restrict any use of the information to criminally investigate or prosecute any alcohol or drug abuse patient.[facility] HospitalIn the event this information is protected by the Federal Confidentiality of Alcohol and Drug Abuse Patient Records regulations: The Federal rules restrict any use of the information to criminally investigate or prosecute any alcohol or drug abuse patient.[facility] HospitalIn the event this information is protected by the Federal Confidentiality of Alcohol and Drug Abuse Patient Records regulations: The Federal rules restrict any use of the information to criminally investigate or prosecute any alcohol or drug abuse patient.[facility] HospitalIn the event this information is protected by the Federal Confidentiality of Alcohol and Drug Abuse Patient Records regulations: The Federal rules restrict any use of the information to criminally investigate or prosecute any alcohol or drug abuse patient.[facility] HospitalIn the event this information is protected by the Federal Confidentiality of Alcohol and Drug Abuse Patient Records regulations: The Federal rules restrict any use of the information to criminally investigate or prosecute any alcohol or drug abuse patient.[facility] HospitalIn the event this information is protected by the Federal Confidentiality of Alcohol and Drug Abuse Patient Records regulations: The Federal rules restrict any use of the information to criminally investigate or prosecute any alcohol or drug abuse patient.[facility] HospitalIn the event this information is protected by the Federal Confidentiality of Alcohol and Drug Abuse Patient Records regulations: The Federal rules restrict any use of the information to criminally investigate or prosecute any alcohol or drug abuse patient.[facility] HospitalIn the event this information is protected by the Federal Confidentiality of Alcohol and Drug Abuse Patient Records regulations: The Federal rules restrict any use of the information to criminally investigate or prosecute any alcohol or drug abuse patient.[facility] HospitalIn the event this information is protected by the Federal Confidentiality of Alcohol and Drug Abuse Patient Records regulations: The Federal rules restrict any use of the information to criminally investigate or prosecute any alcohol or drug abuse patient.[facility] HospitalIn the event this information is protected by the Federal Confidentiality of Alcohol and Drug Abuse Patient Records regulations: The Federal rules restrict any use of the information to criminally investigate or prosecute any alcohol or drug abuse patient.[facility] HospitalIn the event this information is protected by the Federal Confidentiality of Alcohol and Drug Abuse Patient Records regulations: The Federal rules restrict any use of the information to criminally investigate or prosecute any alcohol or drug abuse patient.[facility] HospitalIn the event this information is protected by the Federal Confidentiality of Alcohol and Drug Abuse Patient Records regulations: The Federal rules restrict any use of the information to criminally investigate or prosecute any alcohol or drug abuse patient.[facility] HospitalIn the event this information is protected by the Federal Confidentiality of Alcohol and Drug Abuse Patient Records regulations: The Federal rules restrict any use of the information to criminally investigate or prosecute any alcohol or drug abuse patient.[facility] HospitalIn the event this information is protected by the Federal Confidentiality of Alcohol and Drug Abuse Patient Records regulations: The Federal rules restrict any use of the information to criminally investigate or prosecute any alcohol or drug abuse patient.[facility] HospitalIn the event this information is protected by the Federal Confidentiality of Alcohol and Drug Abuse Patient Records regulations: The Federal rules restrict any use of the information to criminally investigate or prosecute any alcohol or drug abuse patient.[facility] HospitalIn the event this information is protected by the Federal Confidentiality of Alcohol and Drug Abuse Patient Records regulations: The Federal rules restrict any use of the information to criminally investigate or prosecute any alcohol or drug abuse patient.[facility] HospitalIn the event this information is protected by the Federal Confidentiality of Alcohol and Drug Abuse Patient Records regulations: The Federal rules restrict any use of the information to criminally investigate or prosecute any alcohol or drug abuse patient.[facility] HospitalIn the event this information is protected by the Federal Confidentiality of Alcohol and Drug Abuse Patient Records regulations: The Federal rules restrict any use of the information to criminally investigate or prosecute any alcohol or drug abuse patient.[facility] HospitalIn the event this information is protected by the Federal Confidentiality of Alcohol and Drug Abuse Patient Records regulations: The Federal rules restrict any use of the information to criminally investigate or prosecute any alcohol or drug abuse patient.[facility] HospitalIn the event this information is protected by the Federal Confidentiality of Alcohol and Drug Abuse Patient Records regulations: The Federal rules restrict any use of the information to criminally investigate or prosecute any alcohol or drug abuse patient.[facility] HospitalIn the event this information is protected by the Federal Confidentiality of Alcohol and Drug Abuse Patient Records regulations: The Federal rules restrict any use of the information to criminally investigate or prosecute any alcohol or drug abuse patient.[facility] HospitalIn the event this information is protected by the Federal Confidentiality of Alcohol and Drug Abuse Patient Records regulations: The Federal rules restrict any use of the information to criminally investigate or prosecute any alcohol or drug abuse patient.[facility] HospitalIn the event this information is protected by the Federal Confidentiality of Alcohol and Drug Abuse Patient Records regulations: The Federal rules restrict any use of the information to criminally investigate or prosecute any alcohol or drug abuse patient.[facility] HospitalIn the event this information is protected by the Federal Confidentiality of Alcohol and Drug Abuse Patient Records regulations: The Federal rules restrict any use of the information to criminally investigate or prosecute any alcohol or drug abuse patient.[facility] HospitalIn the event this information is protected by the Federal Confidentiality of Alcohol and Drug Abuse Patient Records regulations: The Federal rules restrict any use of the information to criminally investigate or prosecute any alcohol or drug abuse patient.[facility] HospitalIn the event this information is protected by the Federal Confidentiality of Alcohol and Drug Abuse Patient Records regulations: The Federal rules restrict any use of the information to criminally investigate or prosecute any alcohol or drug abuse patient.[facility] HospitalIn the event this information is protected by the Federal Confidentiality of Alcohol and Drug Abuse Patient Records regulations: The Federal rules restrict any use of the information to criminally investigate or prosecute any alcohol or drug abuse patient.[facility] HospitalIn the event this information is protected by the Federal Confidentiality of Alcohol and Drug Abuse Patient Records regulations: The Federal rules restrict any use of the information to criminally investigate or prosecute any alcohol or drug abuse patient.[facility] HospitalIn the event this information is protected by the Federal Confidentiality of Alcohol and Drug Abuse Patient Records regulations: The Federal rules restrict any use of the information to criminally investigate or prosecute any alcohol or drug abuse patient.[facility] HospitalIn the event this information is protected by the Federal Confidentiality of Alcohol and Drug Abuse Patient Records regulations: The Federal rules restrict any use of the information to criminally investigate or prosecute any alcohol or drug abuse patient.[facility] HospitalIn the event this information is protected by the Federal Confidentiality of Alcohol and Drug Abuse Patient Records regulations: The Federal rules restrict any use of the information to criminally investigate or prosecute any alcohol or drug abuse patient.[facility] HospitalIn the event this information is protected by the Federal Confidentiality of Alcohol and Drug Abuse Patient Records regulations: The Federal rules restrict any use of the information to criminally investigate or prosecute any alcohol or drug abuse patient.[facility] HospitalIn the event this information is protected by the Federal Confidentiality of Alcohol and Drug Abuse Patient Records regulations: The Federal rules restrict any use of the information to criminally investigate or prosecute any alcohol or drug abuse patient.[facility] HospitalIn the event this information is protected by the Federal Confidentiality of Alcohol and Drug Abuse Patient Records regulations: The Federal rules restrict any use of the information to criminally investigate or prosecute any alcohol or drug abuse patient.[facility] HospitalIn the event this information is protected by the Federal Confidentiality of Alcohol and Drug Abuse Patient Records regulations: The Federal rules restrict any use of the information to criminally investigate or prosecute any alcohol or drug abuse patient.[facility] HospitalIn the event this information is protected by the Federal Confidentiality of Alcohol and Drug Abuse Patient Records regulations: The Federal rules restrict any use of the information to criminally investigate or prosecute any alcohol or drug abuse patient.[facility] HospitalIn the event this information is protected by the Federal Confidentiality of Alcohol and Drug Abuse Patient Records regulations: The Federal rules restrict any use of the information to criminally investigate or prosecute any alcohol or drug abuse patient.[facility] HospitalIn the event this information is protected by the Federal Confidentiality of Alcohol and Drug Abuse Patient Records regulations: The Federal rules restrict any use of the information to criminally investigate or prosecute any alcohol or drug abuse patient.[facility] HospitalIn the event this information is protected by the Federal Confidentiality of Alcohol and Drug Abuse Patient Records regulations: The Federal rules restrict any use of the information to criminally investigate or prosecute any alcohol or drug abuse patient.[facility] HospitalIn the event this information is protected by the Federal Confidentiality of Alcohol and Drug Abuse Patient Records regulations: The Federal rules restrict any use of the information to criminally investigate or prosecute any alcohol or drug abuse patient.[facility] HospitalIn the event this information is protected by the Federal Confidentiality of Alcohol and Drug Abuse Patient Records regulations: The Federal rules restrict any use of the information to criminally investigate or prosecute any alcohol or drug abuse patient.[facility] HospitalIn the event this information is protected by the Federal Confidentiality of Alcohol and Drug Abuse Patient Records regulations: The Federal rules restrict any use of the information to criminally investigate or prosecute any alcohol or drug abuse patient.[facility] HospitalIn the event this information is protected by the Federal Confidentiality of Alcohol and Drug Abuse Patient Records regulations: The Federal rules restrict any use of the information to criminally investigate or prosecute any alcohol or drug abuse patient.[facility] HospitalIn the event this information is protected by the Federal Confidentiality of Alcohol and Drug Abuse Patient Records regulations: The Federal rules restrict any use of the information to criminally investigate or prosecute any alcohol or drug abuse patient.[facility] HospitalIn the event this information is protected by the Federal Confidentiality of Alcohol and Drug Abuse Patient Records regulations: The Federal rules restrict any use of the information to criminally investigate or prosecute any alcohol or drug abuse patient.[facility] HospitalIn the event this information is protected by the Federal Confidentiality of Alcohol and Drug Abuse Patient Records regulations: The Federal rules restrict any use of the information to criminally investigate or prosecute any alcohol or drug abuse patient.[facility] HospitalIn the event this information is protected by the Federal Confidentiality of Alcohol and Drug Abuse Patient Records regulations: The Federal rules restrict any use of the information to criminally investigate or prosecute any alcohol or drug abuse patient.[facility] HospitalIn the event this information is protected by the Federal Confidentiality of Alcohol and Drug Abuse Patient Records regulations: The Federal rules restrict any use of the information to criminally investigate or prosecute any alcohol or drug abuse patient.[facility] HospitalIn the event this information is protected by the Federal Confidentiality of Alcohol and Drug Abuse Patient Records regulations: The Federal rules restrict any use of the information to criminally investigate or prosecute any alcohol or drug abuse patient.[facility] HospitalIn the event this information is protected by the Federal Confidentiality of Alcohol and Drug Abuse Patient Records regulations: The Federal rules restrict any use of the information to criminally investigate or prosecute any alcohol or drug abuse patient.[facility] HospitalIn the event this information is protected by the Federal Confidentiality of Alcohol and Drug Abuse Patient Records regulations: The Federal rules restrict any use of the information to criminally investigate or prosecute any alcohol or drug abuse patient.[facility] HospitalIn the event this information is protected by the Federal Confidentiality of Alcohol and Drug Abuse Patient Records regulations: The Federal rules restrict any use of the information to criminally investigate or prosecute any alcohol or drug abuse patient.[facility] HospitalIn the event this information is protected by the Federal Confidentiality of Alcohol and Drug Abuse Patient Records regulations: The Federal rules restrict any use of the information to criminally investigate or prosecute any alcohol or drug abuse patient.[facility] HospitalIn the event this information is protected by the Federal Confidentiality of Alcohol and Drug Abuse Patient Records regulations: The Federal rules restrict any use of the information to criminally investigate or prosecute any alcohol or drug abuse patient.[facility] HospitalIn the event this information is protected by the Federal Confidentiality of Alcohol and Drug Abuse Patient Records regulations: The Federal rules restrict any use of the information to criminally investigate or prosecute any alcohol or drug abuse patient.[facility] HospitalIn the event this information is protected by the Federal Confidentiality of Alcohol and Drug Abuse Patient Records regulations: The Federal rules restrict any use of the information to criminally investigate or prosecute any alcohol or drug abuse patient.[facility] HospitalIn the event this information is protected by the Federal Confidentiality of Alcohol and Drug Abuse Patient Records regulations: The Federal rules restrict any use of the information to criminally investigate or prosecute any alcohol or drug abuse patient.[facility] HospitalIn the event this information is protected by the Federal Confidentiality of Alcohol and Drug Abuse Patient Records regulations: The Federal rules restrict any use of the information to criminally investigate or prosecute any alcohol or drug abuse patient.[facility] HospitalIn the event this information is protected by the Federal Confidentiality of Alcohol and Drug Abuse Patient Records regulations: The Federal rules restrict any use of the information to criminally investigate or prosecute any alcohol or drug abuse patient.[facility] HospitalIn the event this information is protected by the Federal Confidentiality of Alcohol and Drug Abuse Patient Records regulations: The Federal rules restrict any use of the information to criminally investigate or prosecute any alcohol or drug abuse patient.[facility] HospitalIn the event this information is protected by the Federal Confidentiality of Alcohol and Drug Abuse Patient Records regulations: The Federal rules restrict any use of the information to criminally investigate or prosecute any alcohol or drug abuse patient.[facility] HospitalIn the event this information is protected by the Federal Confidentiality of Alcohol and Drug Abuse Patient Records regulations: The Federal rules restrict any use of the information to criminally investigate or prosecute any alcohol or drug abuse patient.[facility] HospitalIn the event this information is protected by the Federal Confidentiality of Alcohol and Drug Abuse Patient Records regulations: The Federal rules restrict any use of the information to criminally investigate or prosecute any alcohol or drug abuse patient.[facility] HospitalIn the event this information is protected by the Federal Confidentiality of Alcohol and Drug Abuse Patient Records regulations: The Federal rules restrict any use of the information to criminally investigate or prosecute any alcohol or drug abuse patient.[facility] HospitalIn the event this information is protected by the Federal Confidentiality of Alcohol and Drug Abuse Patient Records regulations: The Federal rules restrict any use of the information to criminally investigate or prosecute any alcohol or drug abuse patient.[facility] HospitalIn the event this information is protected by the Federal Confidentiality of Alcohol and Drug Abuse Patient Records regulations: The Federal rules restrict any use of the information to criminally investigate or prosecute any alcohol or drug abuse patient.[facility] HospitalIn the event this information is protected by the Federal Confidentiality of Alcohol and Drug Abuse Patient Records regulations: The Federal rules restrict any use of the information to criminally investigate or prosecute any alcohol or drug abuse patient.[facility] HospitalIn the event this information is protected by the Federal Confidentiality of Alcohol and Drug Abuse Patient Records regulations: The Federal rules restrict any use of the information to criminally investigate or prosecute any alcohol or drug abuse patient.[facility] HospitalIn the event this information is protected by the Federal Confidentiality of Alcohol and Drug Abuse Patient Records regulations: The Federal rules restrict any use of the information to criminally investigate or prosecute any alcohol or drug abuse patient.[facility] HospitalIn the event this information is protected by the Federal Confidentiality of Alcohol and Drug Abuse Patient Records regulations: The Federal rules restrict any use of the information to criminally investigate or prosecute any alcohol or drug abuse patient.[facility] HospitalIn the event this information is protected by the Federal Confidentiality of Alcohol and Drug Abuse Patient Records regulations: The Federal rules restrict any use of the information to criminally investigate or prosecute any alcohol or drug abuse patient.[facility] HospitalIn the event this information is protected by the Federal Confidentiality of Alcohol and Drug Abuse Patient Records regulations: The Federal rules restrict any use of the information to criminally investigate or prosecute any alcohol or drug abuse patient.[facility] HospitalIn the event this information is protected by the Federal Confidentiality of Alcohol and Drug Abuse Patient Records regulations: The Federal rules restrict any use of the information to criminally investigate or prosecute any alcohol or drug abuse patient.[facility] HospitalIn the event this information is protected by the Federal Confidentiality of Alcohol and Drug Abuse Patient Records regulations: The Federal rules restrict any use of the information to criminally investigate or prosecute any alcohol or drug abuse patient.[facility] HospitalIn the event this information is protected by the Federal Confidentiality of Alcohol and Drug Abuse Patient Records regulations: The Federal rules restrict any use of the information to criminally investigate or prosecute any alcohol or drug abuse patient.[facility] HospitalIn the event this information is protected by the Federal Confidentiality of Alcohol and Drug Abuse Patient Records regulations: The Federal rules restrict any use of the information to criminally investigate or prosecute any alcohol or drug abuse patient.[facility] HospitalIn the event this information is protected by the Federal Confidentiality of Alcohol and Drug Abuse Patient Records regulations: The Federal rules restrict any use of the information to criminally investigate or prosecute any alcohol or drug abuse patient.[facility] HospitalIn the event this information is protected by the Federal Confidentiality of Alcohol and Drug Abuse Patient Records regulations: The Federal rules restrict any use of the information to criminally investigate or prosecute any alcohol or drug abuse patient.[facility] HospitalIn the event this information is protected by the Federal Confidentiality of Alcohol and Drug Abuse Patient Records regulations: The Federal rules restrict any use of the information to criminally investigate or prosecute any alcohol or drug abuse patient.[facility] HospitalIn the event this information is protected by the Federal Confidentiality of Alcohol and Drug Abuse Patient Records regulations: The Federal rules restrict any use of the information to criminally investigate or prosecute any alcohol or drug abuse patient.[facility] HospitalIn the event this information is protected by the Federal Confidentiality of Alcohol and Drug Abuse Patient Records regulations: The Federal rules restrict any use of the information to criminally investigate or prosecute any alcohol or drug abuse patient.[facility] HospitalIn the event this information is protected by the Federal Confidentiality of Alcohol and Drug Abuse Patient Records regulations: The Federal rules restrict any use of the information to criminally investigate or prosecute any alcohol or drug abuse patient.[facility] HospitalIn the event this information is protected by the Federal Confidentiality of Alcohol and Drug Abuse Patient Records regulations: The Federal rules restrict any use of the information to criminally investigate or prosecute any alcohol or drug abuse patient.[facility] HospitalIn the event this information is protected by the Federal Confidentiality of Alcohol and Drug Abuse Patient Records regulations: The Federal rules restrict any use of the information to criminally investigate or prosecute any alcohol or drug abuse patient.[facility] HospitalIn the event this information is protected by the Federal Confidentiality of Alcohol and Drug Abuse Patient Records regulations: The Federal rules restrict any use of the information to criminally investigate or prosecute any alcohol or drug abuse patient.[facility] HospitalIn the event this information is protected by the Federal Confidentiality of Alcohol and Drug Abuse Patient Records regulations: The Federal rules restrict any use of the information to criminally investigate or prosecute any alcohol or drug abuse patient.[facility] HospitalIn the event this information is protected by the Federal Confidentiality of Alcohol and Drug Abuse Patient Records regulations: The Federal rules restrict any use of the information to criminally investigate or prosecute any alcohol or drug abuse patient.[facility] HospitalIn the event this information is protected by the Federal Confidentiality of Alcohol and Drug Abuse Patient Records regulations: The Federal rules restrict any use of the information to criminally investigate or prosecute any alcohol or drug abuse patient.[facility] HospitalIn the event this information is protected by the Federal Confidentiality of Alcohol and Drug Abuse Patient Records regulations: The Federal rules restrict any use of the information to criminally investigate or prosecute any alcohol or drug abuse patient.[facility] HospitalIn the event this information is protected by the Federal Confidentiality of Alcohol and Drug Abuse Patient Records regulations: The Federal rules restrict any use of the information to criminally investigate or prosecute any alcohol or drug abuse patient.[facility] HospitalIn the event this information is protected by the Federal Confidentiality of Alcohol and Drug Abuse Patient Records regulations: The Federal rules restrict any use of the information to criminally investigate or prosecute any alcohol or drug abuse patient.[facility] HospitalIn the event this information is protected by the Federal Confidentiality of Alcohol and Drug Abuse Patient Records regulations: The Federal rules restrict any use of the information to criminally investigate or prosecute any alcohol or drug abuse patient.[facility] HospitalIn the event this information is protected by the Federal Confidentiality of Alcohol and Drug Abuse Patient Records regulations: The Federal rules restrict any use of the information to criminally investigate or prosecute any alcohol or drug abuse patient.[facility] HospitalIn the event this information is protected by the Federal Confidentiality of Alcohol and Drug Abuse Patient Records regulations: The Federal rules restrict any use of the information to criminally investigate or prosecute any alcohol or drug abuse patient.[facility] HospitalIn the event this information is protected by the Federal Confidentiality of Alcohol and Drug Abuse Patient Records regulations: The Federal rules restrict any use of the information to criminally investigate or prosecute any alcohol or drug abuse patient.[facility] HospitalIn the event this information is protected by the Federal Confidentiality of Alcohol and Drug Abuse Patient Records regulations: The Federal rules restrict any use of the information to criminally investigate or prosecute any alcohol or drug abuse patient.[facility] HospitalIn the event this information is protected by the Federal Confidentiality of Alcohol and Drug Abuse Patient Records regulations: The Federal rules restrict any use of the information to criminally investigate or prosecute any alcohol or drug abuse patient.[facility] HospitalIn the event this information is protected by the Federal Confidentiality of Alcohol and Drug Abuse Patient Records regulations: The Federal rules restrict any use of the information to criminally investigate or prosecute any alcohol or drug abuse patient.[facility] HospitalIn the event this information is protected by the Federal Confidentiality of Alcohol and Drug Abuse Patient Records regulations: The Federal rules restrict any use of the information to criminally investigate or prosecute any alcohol or drug abuse patient.[facility] Reason for Visit (unrecogniz ed section and content) Reason Comments Patient Question Reason Comments Medicare Wellness Exam Reason Onset [...] To Contact Diagnoses 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] Procedures HI CABG W/ARTERIAL GRAFT SINGLE ARTERIAL GRAFT HI ECHO TRANSESOPHAG R-T 2D W/PRB IMG ACQUISJ I&R CABG WITH CHERI Echocardiography transesophageal real-time Adrianne Sethi MD [address] [facility] [address] [place] [address] [address] [place] [address] [place] [address] Referral ID Status Reason Start Date Expiration Date Visits Re quested Visits Authorized [id number] 1 Reason Onset Date Comments Refill [...] W UPRIGHT/DECUB/CTL RADIOLOGIC EXAM ABDOMEN 2 [place] [address] [place] [address] [place] [address] Referral ID Status Reason Start Date Expiration Date V isits Requested Visits Authorized [id number] Closed Auto-Generate d Referral 01/06/2023 02/05/2024 1 1 Reason Comments Rash On shoulders back an d sides, x 1.5 wks rash underbreasts Reason Comments Insurance Authorization Reason Comments Blood Pressure Elevated readings al l week Reason Comments Follow Up Reason Comments Medicare Wellness Exam Reason Comments Acute Visit Reason Comments Orders Kiana Londono, luis daniel p t is due for A1C labs at their next ov 07/21. Reason Comments 6 Month Exam Reason Comments Referral Request Reason Comments Hypotension Elevated Glucose Reason Onset Date Comments Client Manager Chronic Care 04/12/2024 Gap closure Reason Comments pre surgical clearance Reason Comments Non-Chemotherapy Treatment Specialty Diagnoses / Procedures Referred By Contac t Referred To Contact Diagnoses Iron deficiency anemia, unspecified iron deficiency anemia type Procedures IRON SUCROSE INJECTION PER 1 MG Kali Bacon MD [address] [place] [address] [facility] [address] [place] [address] Referral ID Status Reason Start Date Expiration Date V isits Requested Visits Authorized [id number] Authorized 2024 08/15/2025 99 99 Reason Comments Urinary Problem Pressure, frequency, x 2 days Reason Comments New Patient Specialty Diagnoses / Procedures Referred By Contac t Referred To Contact Diagnoses Iron deficiency anemia, unspecified iron deficiency anemia type Procedures CONSULT TO HEMATOLOGY/ONCOLOGY OFFICE/OUTPATIENT [facility] MDM 60 MINUTES Kali Bacon MD [address] [place] [address] Referral ID Status Reason Start Date Expiration Date V isits Requested Visits Authorized [id number] Closed PCP Requested Referral 08/22/2024 08/22/2025 1 1 Reason Comments colon consult Specialty Diagnoses / Procedures Referred By Contac t Referred To Contact General Surgery Diagnoses Iron deficiency anemia, unspecified iron deficiency anemia type Procedures CONSULT TO GENERAL SURGERY OFFICE/OUTPATIENT [facility] MDM 60 MINUTES Fanny Barron [address] [place] [address] Referral ID Status Reason Start Date Expiration Date V isits Requested Visits Authorized [id number] Closed PCP Requested Referral 09/05/2024 09/05/2025 1 1 Reason Comments Cough Chest congestion/bur lawrence, stuffy nose, sneezing x 2 days Reason Onset Date Comments Refill Request 09/18/2024 Reason Comments Procedure Reason Comments Suture Removal Reason Comments frequrncy Frequency and some i tching x 2 weeks Reason Onset Date Comments Results 10/10/2024 Reason Comments Established Patient Reason Comments Imm/Inj Reason Comments Arm Pain Reason Onset Date Comments Results 11/21/2024 Reason Comments 11-15-2024 Colon EGD Reason Onset Date Comments Refill Request 12/06/2024 Reason Comments Medical Clearance Care Teams (unrecognized sec tion and content) Broom Bundler Relationship Specialty Start Date End Date Kali Bacon MD [address] [place] [address] PCP - General Family Practice 04/27/[address] [place], [place] [address] Gastroenterology 03/12/20 Broom Bundler Relationship Specialty Start Date End Date Kali Bacon MD [address] [place], [place] 1530[address] [phone] PCP - General Family Medicine 04/27/18 [facility] Diaz [facility] [address] [place] [address] Gastroenterology 03/12/20 Broom Bundler Relationship Specialty Start Date End Date Kali Bacon MD [address] [place] [address] PCP - General Family Medicine 04/27/18 Guero Diaz [facility] [address] [place] [address] Gastroenterology 03/12/20 Broom Bundler Relationship Specialty Start Date End Date Kali Bacon MD [address] [place] [address] PCP - General Family Medicine 04/27/18 Guero Diaz [facility] [address] [place] [address] Gastroenterology 03/12/20 Broom Bundler Relationship Specialty Start Date End Date Kali Bacon MD [address] [place] [address] PCP - General Family Medicine 04/27/18 Guero Diaz [facility] [address] [place] [address] Gastroenterology 03/12/20 Team Status: Active Member Role Status Dates Dr. Kali Bacon MD Family Provider Active Dr. Kali Bacon MD Primary Care Provider Active Team Status: Inactive Member Role Status Dates Dr. Kali Bacon MD Primary Care Provider, [facility] Provider Active Chanda Sanz HYDROLOGIC MODELER, HYDROLOGIC MODELER-C Attending Provider Active Team Status: Inactive Member Role Status Dates Dr. Kali Bacon MD Primary Care Provider Active Chanda Sanz HYDROLOGIC MODELER, HYDROLOGIC MODELER-C Attending Provider Active Team Status: Inactive Member Role Status Dates Dr. Kali Bacon MD Primary Care Provider, Attendin g Provider Active Broom Bundler Relationship Specialty Start Date End Date Kali Bacon MD [address] [place] [address] PCP - General Family Medicine 04/27/18 Guero Diaz E [facility] MAT [address] [place] [address] Gastroenterology 03/12/20 Team Status: Active Member Role Status Dates Dr. Kali Bacon MD Primary Care Provider Active Dr. Shawn Cohen MD Attending Provider, Referring Pr ovider Active Team Status: Inactive Member Role Status Dates Dr. Kali Bacon MD Primary Care Provider Active Dr. Beltran Miranda , DO Emergency Provider Active Team Status: Inactive Member Role Status Dates Dr. Kali Bacon MD Primary Care Provider Active Dr. Shawn Cohen MD Attending Provider, Referring Pr ovider Active Broom Bundler Relationship Specialty Start Date End Date Kali Bacon MD [address] [place] [address] PCP - General Family Medicine 04/27/18 Guero Diaz E [facility] MAT [address] [place] [address] Gastroenterology 03/12/20 Broom Bundler Relationship Specialty Start Date End Date Kali Bacon MD [address] [place] [address] PCP - General Family Medicine 04/27/18 Guero Diaz E [facility] MAT [address] [place] [address] Gastroenterology 03/12/20 Broom Bundler Relationship Specialty Start Date End Date Kali Bacon MD [address] [place] [address] PCP - General Family Medicine 04/27/[address] [place] [address] Gastroenterology 03/12/20 Team Status: Inactive Member Role Status Dates Dr. Kali Bacon MD Primary Care Provider, Referrin g Provider Active Dr. Sarah William MD Attending Provider Active Team Status: Inactive Member Role Status Dates Dr. Kali Bacon MD Primary Care Provider, Referrin g Provider Active Dr. Leo Rubio MD Attending Provider Active Team Status: Inactive Member Role Status Dates Dr. Kali Bacon MD Primary Care Provider Active Dr. Beltran Miranda DO Attending Provider, Emergency Pr ovider Active Team Status: Inactive Member Role Status Dates Dr. Kali Bacon MD Primary Care Provider Active Dr. eLo Rubio MD Attending Provider, Referring Pro vider Active Broom Bundler Relationship Specialty Start Date End Date Kali Bacon [address] [place] [phone] PCP - General 10/26/19 Broom Bundler Relationship Specialty Start Date End Date Kali Bacon [address] [place] [phone] PCP - General 10/26/19 Broom Bundler Relationship Specialty Start Date End Date Kali Bacon [address] [place] [phone] PCP - General 10/26/19 Broom Bundler Relationship Specialty Start Date End Date Kali Bacon [address] [place] [address] PCP - General 10/26/19 Broom Bundler Relationship Specialty Start Date End Date Kali Bacon [address] [place] [address] PCP - General 10/26/19 Team Status: Active Member Role Status Dates Dr. Kali Bacon MD Primary Care Provider Active Dr. Leo Rubio MD Attending Provider Active Broom Bundler Relationship Specialty Start Date End Date Kali Bacon Keerthi [address] [place] [address] PCP - General 10/26/19 Broom Bundler Relationship Specialty Start Date End Date Kali Bacon MD [address] [place] [address] PCP - General Family Medicine 04/27/18 Guero Diaz [facility] [address] [place] [address] Gastroenterology 03/12/20 Broom Bundler Relationship Specialty Start Date End Date Kali Bacon Keerthi [address] [place] [address] PCP - General 10/26/19 Team Status: Inactive Member Role Status Dates Dr. Kali Bacon MD Primary Care Provider Active Dr. Al Perez MD Emergency Provider Active Broom Bundler Relationship Specialty Start Date End Date Kali Bacon MD [address] [place] [address] PCP - General Family Medicine 04/27/18 Guero Diaz [facility] [address] [place] [address] Gastroenterology 03/12/20 Broom Bundler Relationship Specialty Start Date End Date Kali Bacon [address] [place] [address] PCP - General 10/26/19 Broom Bundler Relationship Specialty Start Date End Date Kali Bacon MD [address] [place] [address] PCP - General Family Medicine 04/27/18 Guero Diaz [address] [place] [address] Gastroenterology 03/12/20 Broom Bundler Relationship Specialty Start Date End Date Kali Bacon [address] [place] [address] PCP - General 10/26/19 Broom Bundler Relationship Specialty Start Date End Date Kali Bacon MD [address] [place] [address] PCP - General Family Medicine 04/27/18 Guero Diaz [address] [place] [address] Gastroenterology 03/12/20 Broom Bundler Relationship Specialty Start Date End Date Kali Bacon MD [address] [facility] [place] [address] PCP - General Family Medicine 04/27/[address] [place] [address] Gastroenterology 03/12/20 Broom Bundler Relationship Specialty Start Date End Date Kali Bacon MD [address] [facility] [place] [address] PCP - General Family Medicine 04/27/18 Guero Diaz [address] [place] [address] Gastroenterology 03/12/20 Broom Bundler Relationship Specialty Start Date End Date Kali Bacon MD [address] [facility] [place] [address] PCP - General Family Medicine 04/27/18 Guero Diaz [address] [place] [address] Gastroenterology 03/12/20 Broom Bundler Relationship Specialty Start Date End Date Kali Bacon MD [address] [place] [address] PCP - General Family Medicine 04/27/18 Guero Diaz [address] [place] [address] Gastroenterology 03/12/20 Team Status: Inactive Member Role Status Dates Dr. Kali Bacon MD Primary Care Provider, [facility] Provider Active Migdalia Max PA, PA Attending Provider Active Team Status: Inactive Member Role Status Dates Dr. Kali Bacon MD Primary Care Provider Active Dr. Al Perez MD Attending Provider, Emergency Provider Active Team Status: Inactive Member Role Status Dates Dr. Kali Bacon MD Primary Care Provider Active Dr. Isai Ornelas DO Attending Provider Active Broom Bundler Relationship Specialty Start Date End Date Kali Bacon MD [address] [place] [address] PCP - General Family Medicine 04/27/18 Guero Diaz [address] [place] [address] Gastroenterology 03/12/20 Broom Bundler Relationship Specialty Start Date End Date Kali Bacon MD [address] [place] [address] PCP - General Family Medicine 04/27/18 Guero Diaz [address] [place] [address] Gastroenterology 03/12/20 Broom Bundler Relationship Specialty Start Date End Date Kali Bacon MD [address] [place] [address] PCP - General Family Medicine 04/27/18 Guero Diaz [address] [facility] [address] [place] [address] Gastroenterology 03/12/20 Team Status: Active Member Role Status Dates Dr. Kali Bacon MD Primary Care Provider, Referrin g Provider Active Dr. Lamine Payan MD Attending Provider, Other Pr ovider Active Team Status: Active Member Role Status Dates Dr. Kali Bacon MD Primary Care Provider Active Dr. Isai Ornelas DO Attending Provider, Referring Provider Active Team Status: Inactive Member Role Status Dates Dr. Kali Bacon MD Primary Care Provider, Referrin g Provider Active Dr. Lamine Payan MD Attending Provider Active Team Status: Inactive Member Role Status Dates Dr. Kali Bacon MD Primary Care Provider Active Dr. Isai Ornelas DO Attending Provider, Referring Provider Active Team Status: Active Member Role Status Dates Dr. Kali Bacon MD Primary Care Provider, Referrin g Provider Active Dr. Lamine Payan MD Attending Provider Active Broom Bundler Relationship Specialty Start Date End Date Kali Bacon MD [address] [place] [address] PCP - General Family Medicine 04/27/18 Guero Diaz [address] [facility] [address] [place] [address] Gastroenterology 03/12/20 Team Status: Active Member Role Status Dates Dr. Kali Bacon MD Primary Care Provider Active Dr. Leo Rubio MD Attending Provider Active Dr. Isai Ornelas DO Referring Provider Active Team Status: Inactive Member Role Status Dates Dr. Kali Bacon MD Primary Care Provider Active Grayson GRIGGS PA-C Attending Provider, Referring Pr ovider Active Broom Bundler Relationship Specialty Start Date End Date Kali Bacon MD [address] [place] [address] PCP - General Family Medicine 04/27/18 Guero Diaz [address] [place] [address] Gastroenterology 03/12/20 Broom Bundler Relationship Specialty Start Date End Date Kali Bacon MD [address] [place] [address] PCP - General Family Medicine 04/27/18 Guero Diaz [address] [place] [address] Gastroenterology 03/12/20 Broom Bundler Relationship Specialty Start Date End Date Kali Bacon MD [address] [place] [address] PCP - General Family Medicine 04/27/18 Guero Diaz [address] [place] [address] Gastroenterology 03/12/20 Broom Bundler Relationship Specialty Start Date End Date Kali Bacon MD [address] [place] [address] PCP - General Family Medicine 04/27/18 Guero Diaz [address] [facility] [address] [place] [address] Gastroenterology 03/12/20 Broom Bundler Relationship Specialty Start Date End Date Kali Bacon MD [address] [place] [address] PCP - General Family Medicine 04/27/18 Guero Diaz [address] [facility] [address] [place] [address] Gastroenterology 03/12/20 Broom Bundler Relationship Specialty Start Date End Date Kali Bacon MD [address] [place] [address] PCP - General Family Medicine 04/27/18 Guero Diaz MD [address] [facility] [address] [place] [address] Gastroenterology 03/12/20 Broom Bundler Relationship Specialty Start Date End Date Kali Bacon MD [address] [place] [address] PCP - General Family Medicine 04/27/18 Guero Diaz MD [address] [facility] [address] [place] [address] Gastroenterology 03/12/20 Broom Bundler Relationship Specialty Start Date End Date Kali Bacon MD [address] [place] [address] PCP - General Family Medicine 04/27/18 Guero Diaz MD [address] [facility] [address] [place] [address] Gastroenterology 03/12/20 Broom Bundler Relationship Specialty Start Date End Date Kali Bacon MD [address] [place] [address] PCP - General Family Medicine 04/27/18 Guero Diaz MD [address] [facility] [address] [place] [address] Gastroenterology 03/12/20 Broom Bundler Relationship Specialty Start Date End Date Kali Bacon MD [address] [place] [address] PCP - General Family Medicine 04/27/18 Guero Diaz MD [address] [facility] [address] [place] [address] Gastroenterology 03/12/20 Broom Bundler Relationship Specialty Start Date End Date Kali Bacon MD [address] [place] [address] PCP - General Family Medicine 04/27/18 Guero Diaz MD [address] [facility] [address] [place] [address] Gastroenterology 03/12/20 Broom Bundler Relationship Specialty Start Date End Date Kali Bacon MD [address] [place] [address] PCP - General Family Medicine 04/27/18 Guero Diaz MD [address] [facility] [address] [place] [address] Gastroenterology 03/12/20 Broom Bundler Relationship Specialty Start Date End Date Kali Bacon MD [address] [place] [address] PCP - General Family Medicine 04/27/18 Guero Diaz MD [address] [facility] [address] [place] [address] Gastroenterology 03/12/20 Broom Bundler Relationship Specialty Start Date End Date Kali Bacon MD [address] [place] [address] PCP - General Family Medicine 04/27/18 Guero Diaz MD [address] [facility] [address] [place] [address] Gastroenterology 03/12/20 Broom Bundler Relationship Specialty Start Date End Date Kali Bacon MD [address] [place] [address] PCP - General Family Medicine 04/27/18 Guero Diaz MD [address] [facility] [address] [place] [address] Gastroenterology 03/12/20 Broom Bundler Relationship Specialty Start Date End Date Kali Bacon MD [address] [place] [address] PCP - General Family Medicine 04/27/18 Guero Diaz MD [address] [facility] [address] [place] [address] Gastroenterology 03/12/20 Broom Bundler Relationship Specialty Start Date End Date Kali Bacon MD [address] [place] [address] PCP - General Family Medicine 04/27/18 Guero Diaz MD [address] [place] [address] Gastroenterology 03/12/20 Team Status: Inactive Member Role Status Dates Dr. Kali Bacon MD Primary Care Provider Active Chanda Sanz HYDROLOGIC MODELER, HYDROLOGIC MODELER-C Attending Provider, Referring Provider Active Team Status: Active Member Role Status Dates Dr. Kali Bacon MD Primary Care Provider Active Dr. Sarah William MD Attending Provider, Referr ing Provider Active Team Status: Active Member Role Status Dates Dr. Kali Bacon MD Primary Care Provider Active Dr. Abraham Gilbert MD Attending Provider Active Team Status: Inactive Member Role Status Dates Dr. Kali Bacon MD Primary Care Provider Active Dr. Sarah William MD Attending Provider, Referr ing Provider Active Team Status: Inactive Member Role Status Dates Dr. Kali Bacon MD Primary Care Provider Active Migdalia GRIGGS, PA Attending Provider, Referr ing Provider Active Broom Bundler Relationship Specialty Start Date End Date Kali Bacon MD [address] [place] [address] PCP - General Family Medicine 04/27/18 Guero Diaz MD [address] [place] [address] Gastroenterology 03/12/20 Team Status: Active Member Role Status Dates Dr. Kali Bacon MD Primary Care Provider Active Dr. Abraham Gilbert MD Attending Provider Active Migdalia GRIGGS, PA Referring Provider Active Team Status: Inactive Member Role Status Dates Dr. Kali Bacon MD Primary Care Provider, Referrin g Provider Active INDU Acuña Attending Provider Active Team Status: Inactive Member Role Status Dates Dr. Kali Bacon MD Primary Care Provider Active INDU Acuña Attending Provider, Referring Provid er Active Broom Bundler Relationship Specialty Start Date End Date Kali Bacon MD [address] [place] [address] PCP - General Family Medicine 04/27/18 Guero Diaz MD [address] [facility] [address] [place], [place] [address] Gastroenterology 03/12/20 Broom Bundler Relationship Specialty Start Date End Date Kali Bacon MD [address] [place] [address] PCP - General Family Medicine 04/27/18 Guero Diaz MD [address] [facility] [address] [place], [place] [address] Gastroenterology 03/12/20 Broom Bundler Relationship Specialty Start Date End Date Kali Bacon MD [address] [place] [address] PCP - General Family Medicine 04/27/18 Guero Diaz MD [address] [facility] [place], [place] [address] Gastroenterology 03/12/20 Kaela Carter, workforce advisor Tip Scourer 01/28/24 01/28/24 Broom Bundler Relationship Specialty Start Date End Date Kali Bacon MD [address] [place] [address] PCP - General Family Medicine 04/27/18 Guero Diaz MD [address] [place] [address] Gastroenterology 03/12/20 Kaela Carter, workforce advisor Tip Scourer 01/28/24 01/28/24 Broom Bundler Relationship Specialty Start Date End Date Kali Bacon MD [address] [place] [address] PCP - General Family Medicine 04/27/18 Guero Diaz MD [address] [place], [place] [address] Gastroenterology 03/12/20 Broom Bundler Relationship Specialty Start Date End Date Kali Bacon MD [address] [place] [address] PCP - General Family Medicine 04/27/18 Guero Diaz MD [address] [place], [place] [address] Gastroenterology 03/12/20 Broom Bundler Relationship Specialty Start Date End Date Kali Bacon MD [address] [place], [place] [address] [phone] PCP - General Family Medicine 04/27/18 Guero Diaz MD [address] [place], [place] [address] Gastroenterology 03/12/20 Joel Acuna [address] [facility] [place] [address] Ophthalmology 03/14/24 Broom Bundler Relationship Specialty Start Date End Date Kali Bacon MD [address] [facility] [place] [address] PCP - General Family Medicine 04/27/18 Guero Diaz MD [address] [facility] [address] [place] [address] Gastroenterology 03/12/20 Joel Acuna [address] [facility] [place] [address] Ophthalmology 03/14/24 Broom Bundler Relationship Specialty Start Date End Date Kali Bacon MD [address] [facility] [place] [address] PCP - General Family Medicine 04/27/18 Guero Diaz MD [address] [facility] [address] [place] [address] Gastroenterology 03/12/20 Joel Acuna [address] [facility] [place] [address] Ophthalmology 03/14/24 Broom Bundler Relationship Specialty Start Date End Date Kali Bacon MD [address] [facility] [place] [address] PCP - General Family Medicine 04/27/18 Guero Diaz MD [address] [facility] [address] [place] [address] Gastroenterology 03/12/20 Joel Acuna [address] [facility], [place] [address] Ophthalmology 03/14/24 Broom Bundler Relationship Specialty Start Date End Date Kali Bacon MD [address] [place] [address] PCP - General Family Medicine 04/27/18 Guero Diaz MD [address] [facility] [address] [place] [address] Gastroenterology 03/12/20 Joel Acuna [address] [facility] [place] [address] Ophthalmology 03/14/24 Broom Bundler Relationship Specialty Start Date End Date Kali Bacon MD [address] [place] [address] PCP - General Family Medicine 04/27/18 Guero Diaz MD [address] CINDYPUYALLUPDanyelle [facility] [address] [place] [address] Gastroenterology 03/12/20 Joel Acuna [address] [facility] [place] [address] Ophthalmology 03/14/24 Broom Bundler Relationship Specialty Start Date End Date Kali Bacon MD [address] [place] [address] PCP - General Family Medicine 04/27/18 Guero Diaz MD [address] AMEIRCA [facility] [address] [place] [address] Gastroenterology 03/12/20 Joel Acuna [address] [facility] [place] [address] Ophthalmology 03/14/24 Broom Bundler Relationship Specialty Start Date End Date Kali Bacon MD [address] [place] [address] PCP - General Family Medicine 04/27/18 Guero Diaz MD [address] [facility] [address] [place] [address] Gastroenterology 03/12/20 Joel Acuna [address] [facility] [place] [address] Ophthalmology 03/14/24 Broom Bundler Relationship Specialty Start Date End Date Kali Bacon MD [address] [place] [address] PCP - General Family Medicine 04/27/18 Guero Diaz MD [address] [facility] [address] [place] [address] Gastroenterology 03/12/20 Joel Acuna [address] [facility] [place] [address] Ophthalmology 03/14/24 Broom Bundler Relationship Specialty Start Date End Date aKli Bacon MD [address] [place] [address] PCP - General Family Medicine 04/27/18 Guero Diaz MD [address] [place] [address] Gastroenterology 03/12/20 Joel Acuna [address] [facility] [place], [place] [address] Ophthalmology 03/14/24 Broom Bundler Relationship Specialty Start Date End Date Kali Bacon MD [address] [facility] [address] PCP - General Family Medicine 04/27/18 Guero Diaz MD [address] [facility] [address] [place] [address] Gastroenterology 03/12/20 Joel Acuna [address] [place] [address] Ophthalmology 03/14/24 Broom Bundler Relationship Specialty Start Date End Date Kali Bacon MD [address] [facility] [place] [address] PCP - General Family Medicine 04/27/18 Guero Diaz MD [address] [facility] [address] [place] [address] Gastroenterology 03/12/20 Joel Acuna [address] [facility] [place] [address] Ophthalmology 03/14/24 Broom Bundler Relationship Specialty Start Date End Date Kali Bacon MD [address] [facility] [place] [address] PCP - General Family Medicine 04/27/18 Guero Diaz MD [address] [facility] [address] [place] [address] Gastroenterology 03/12/20 Joel Acuna [address] [facility] [place] [address] Ophthalmology 03/14/24 Broom Bundler Relationship Specialty Start Date End Date Kali Bacon MD [address] [place] [address] PCP - General Family Medicine 04/27/18 Guero Diaz MD [address] [facility] [address] [place] [address] Gastroenterology 03/12/20 Joel Acuna [address] [facility] [place] [address] Ophthalmology 03/14/24 Broom Bundler Relationship Specialty Start Date End Date Kali Bacon MD [address] [place] [address] PCP - General Family Medicine 04/27/18 Guero Diaz MD [address] [facility] [address] [place] [address] Gastroenterology 03/12/20 Joel Acuna [address] [facility] [place] [address] Ophthalmology 03/14/24 Broom Bundler Relationship Specialty Start Date End Date Kali Bacon MD [address] [facility] [address] PCP - General Family Medicine 04/27/18 Guero Diaz MD [address] [facility] [address] [place] [address] Gastroenterology 03/12/20 Joel Acuna [address] [facility] [place] [address] Ophthalmology 03/14/24 Lovely Polk, workforce advisor Tip Scourer 10/02/24 Broom Bundler Relationship Specialty Start Date End Date Kali Bacon MD [address] [place] [address] PCP - General Family Medicine 04/27/18 Guero Diaz MD [address] [facility] [address] [place] [address] Gastroenterology 03/12/20 Joel Acuna [address] [facility], [place] [address] Ophthalmology 03/14/24 Lovely Polk, workforce advisor Tip Scourer 10/02/24 Broom Bundler Relationship Specialty Start Date End Date Kali Bacon MD [address] [place] [place] [address] PCP - General Family Medicine 04/27/18 Guero Diaz MD [address] [facility] [address] [place] [address] Gastroenterology 03/12/20 Joel Acuna [address] [place], [place] [id number] Ophthalmology 03/14/24 Lovely Polk, workforce advisor Tip Scourer 10/02/24 Broom Bundler Relationship Specialty Start Date End Date Kali Bacon MD [address] [place] [address] PCP - General Family Medicine 04/27/18 Guero Diaz MD [address] [facility] [address] [place] [address] Gastroenterology 03/12/20 Joel Acuna [address] [place] [address] Ophthalmology 03/14/24 Lovely Polk RN Primary Care Tip Scourer 10/02/24 Broom Bundler Relationship Specialty Start Date End Date Kali Bacon MD [address] [place] [address] PCP - General Family Medicine 04/27/18 Guero Diaz MD [address] [facility] [address] [place] [address] Gastroenterology 03/12/20 Joel Acuna [address] [place], [place] [id number] Ophthalmology 03/14/24 Lovely Polk, workforce advisor Tip Scourer 10/02/24 Broom Bundler Relationship Specialty Start Date End Date Kali Bacon MD [address] [place] [address] PCP - General Family Medicine 04/27/18 Guero Diaz MD [address] [facility] [address] [place] [address] Gastroenterology 03/12/20 Joel Acuna [address] [facility], [place] [address] Ophthalmology 03/14/24 Lovely Polk, workforce advisor Tip Scourer 10/02/24 Broom Bundler Relationship Specialty Start Date End Date Kali Bacon MD [address] [place] [address] PCP - General Family Medicine 04/27/18 Guero Diaz MD [address] [facility] [address] [place] [address] Gastroenterology 03/12/20 Joel Acuna [address] [facility] [place] [address] Ophthalmology 03/14/24 Broom Bundler Relationship Specialty Start Date End Date Kali Bacon MD [address] [place] [address] PCP - General Family Medicine 04/27/18 Guero Diaz MD [address] [facility] [address] [place] [address] Gastroenterology 03/12/20 Joel Acuna [address] [facility] [place] [address] Ophthalmology 03/14/24 Broom Bundler Relationship Specialty Start Date End Date Kali Bacon MD [address] [place] [address] PCP - General Family Medicine 04/27/18 Guero Diaz MD [address] [facility] [address] [place], [place] [address] Gastroenterology 03/12/20 Joel Acuna [address] [place], [place] [id number] Ophthalmology 03/14/24 Team Status: Active Member Role Status Dates Dr. Kali Bacon MD Primary Care Provider Active Team Status: Inactive Member Role Status Dates Dr. Kali Bacon MD Primary Care Provider Active Start: July 12, 2024 End: July 12, 2024 INDU Acuña Attending Provider Active Star t: July 12, 2024 End: July 12, 2024 INDU Acuña Referring Provider Active Star t: July 12, 2024 End: July 12, 2024 Team Status: Active Member Role Status Dates Dr. Kali Bacon MD Primary Care Provider Active Start: July 12, 2024 Dr. Abraham Gilbert MD Attending Provider Active S tart: July 12, 2024 INDU Acuña Referring Provider Active Star t: July 12, 2024 Team Status: Inactive Member Role Status Dates Dr. Kali Bacon MD Primary Care Provider Active Start: July 17, 2024 End: July 17, 2024 Dr. Dominic Issa MD Attending Provider Active Start: July 17, 2024 End: July 17, 2024 Dr. Dominic Issa MD Referring Provider Active Start: July 17, 2024 End: July 17, 2024 Team Status: Inactive Member Role Status Dates Dr. Kali Bacon MD Primary Care Provider Active Start: July 20, 2024 End: July 20, 2024 Dr. Kali Bacon MD Referring Provider Active Start: July 20, 2024 End: July 20, 2024 Dr. Dominic Issa MD Attending Provider Active Start: July 20, 2024 End: July 20, 2024 Team Status: Inactive Member Role Status Dates Dr. Kali Bacon MD Primary Care Provider Active Start: August 31, 2024 End: September 01, 2024 Dr. Dominic Issa MD Attending Provider Active Start: August 31, 2024 End: September 01, 2024 Dr. Dominic Issa MD Referring Provider Active Start: August 31, 2024 End: September 01, 2024 Team Status: Active Member Role Status Dates Dr. Kali Bacon MD Primary Care Provider Active Start: August 31, 2024 End: August 31, 2024 Dr. Yany Armendariz MD Attending Provider Active Start: August 31, 2024 End: August 31, 2024 Dr. Dominic Issa MD Referring Provider Active Start: August 31, 2024 End: August 31, 2024 Team Status: Inactive Member Role Status Dates Dr. Kali Bacon MD Primary Care Provider Active Start: September 06, 2024 End: September 06, 2024 Dr. Kali Bacon MD Referring Provider Active Start: September 06, 2024 End: September 06, 2024 Migdalia GRIGGS, PA Attending Provider Active Start: September 06, 2024 End: September 06, 2024 Team Status: Inactive Member Role Status Dates Dr. Kali Bacon MD Primary Care Provider Active Start: September 11, 2024 End: September 11, 2024 Migdalia Max PA, PA Attending Provider Active Start: September 11, 2024 End: September 11, 2024 Migdalia Max PA, PA Referring Provider Active Start: September 11, 2024 End: September 11, 2024 Team Status: Active Member Role Status Dates Dr. Kali Bacon MD Primary Care Provider Active Start: September 11, 2024 Dr. Leo Rubio MD Attending Provider Active S tart: September 11, 2024 Migdalia Max PA, PA Referring Provider Active Start: September 11, 2024 Team Status: Inactive Member Role Status Dates Dr. Kali Bacon MD Primary Care Provider Active Start: September 18, 2024 End: September 18, 2024 Dr. Kali Bacon MD Referring Provider Active Start: September 18, 2024 End: September 18, 2024 Chanda Sanz HYDROLOGIC MODELER, HYDROLOGIC MODELER-C Attending Provider Active Start: September 18, 2024 End: September 18, 2024 Team Status: Inactive Member Role Status Dates Dr. Kali Bacon MD Primary Care Provider Active Start: September 18, 2024 End: September 18, 2024 Chanda Sanz HYDROLOGIC MODELER, HYDROLOGIC MODELER-C Attending Provider Active Start: September 18, 2024 End: September 18, 2024 Chanda Sanz HYDROLOGIC MODELER, HYDROLOGIC MODELER-C Referring Provider Active Start: September 18, 2024 End: September 18, 2024 Team Status: Inactive Member Role Status Dates Dr. Kali Bacon MD Primary Care Provider Active Start: September 21, 2024 End: September 21, 2024 Dr. Dominic Issa MD Attending Provider Active Start: September 21, 2024 End: September 21, 2024 Dr. Dominic Issa MD Referring Provider Active Start: September 21, 2024 End: September 21, 2024 Team Status: Active Member Role Status Dates Dr. Kali Bacon MD Primary Care Provider Active Start: October 11, 2024 Dr. Shawn Cohen MD Attending Provider Active Start: October 11, 2024 Dr. Shawn Cohen MD Referring Provider Active Start: October 11, 2024 Team Status: Inactive Member Role Status Dates Dr. Kali Bacon MD Primary Care Provider Active Start: October 11, 2024 End: October 11, 2024 Dr. Shawn Cohen MD Attending Provider Active Start: October 11, 2024 End: October 11, 2024 Dr. Shawn Cohen MD Referring Provider Active Start: October 11, 2024 End: October 11, 2024 Team Status: Inactive Member Role Status Dates Dr. Kali Bacon MD Primary Care Provider Active Start: October 25, 2024 End: October 25, 2024 Dr. Kali Bacon MD Referring Provider Active Start: October 25, 2024 End: October 25, 2024 Dr. Monica Rothman DO Attending Provider Activ e Start: October 25, 2024 End: October 25, 2024 Team Status: Active Member Role Status Dates Dr. Kali Bacon MD Primary Care Provider Active Start: October 25, 2024 Dr. Monica Rothman DO Attending Provider Activ e Start: October 25, 2024 Dr. Monica Rothman , DO Referring Provider Activ e Start: October 25, 2024 Team Status: Inactive Member Role Status Dates Dr. Kali Bacon MD Primary Care Provider Active Start: October 25, 2024 End: October 25, 2024 Dr. Monica Rothman , Attending Provider Activ e Start: October 25, 2024 End: October 25, 2024 Dr. Monica Rothman DO Referring Provider Activ e Start: October 25, 2024 End: October 25, 2024 Broom Bundler Relationship Specialty Start Date End Date Kali Bacon MD [address] [facility], [place] [address] PCP - General Family Medicine 04/27/18 Guero Diaz MD [address] [facility] [address] [place] [address] Gastroenterology 03/12/20 Joel Acuna [address] [place], [place] [address] Ophthalmology 03/14/24 Broom Bundler Relationship Specialty Start Date End Date Kali Bacon MD [address] [place] [address] PCP - General Family Medicine 04/27/18 Guero Diaz MD [address] [facility] [address] [place] [address] Gastroenterology 03/12/20 Joel Acuna [address] [place], [place] [address] Ophthalmology 03/14/24 Broom Bundler Relationship Specialty Start Date End Date Kali Bacon MD [address] [place] [address] PCP - General Family Medicine 04/27/18 Guero Diaz MD [address] [facility] [address] [place] [address] Gastroenterology 03/12/20 Joel Acuna [address] [facility] [place] [address] Ophthalmology 03/14/24 Broom Bundler Relationship Specialty Start Date End Date Kali Bacon MD [address] [facility] [place] [address] PCP - General Family Medicine 04/27/18 Guero Diaz MD [address] [facility] [address] [place] [address] Gastroenterology 03/12/20 Joel Acuna [address] [facility] [place] [address] Ophthalmology 03/14/24 Broom Bundler Relationship Specialty Start Date End Date Kali Bacon MD [address] [place] [address] PCP - General Family Medicine 04/27/18 Guero Diaz MD [address] [facility] [address] [place] [address] Gastroenterology 03/12/20 Joel Acuna [address] [facility] [place] [address] Ophthalmology 03/14/24 Broom Bundler Relationship Specialty Start Date End Date Kali Bacon MD [address] [facility] [place] [address] PCP - General Family Medicine 04/27/18 Guero Diaz MD [address] [facility] [address] [place] [address] Gastroenterology 03/12/20 Joel Acuna [address] [facility] [place] [address] Ophthalmology 03/14/24 Broom Bundler Relationship Specialty Start Date End Date Kali Bacon MD [address] [facility] [place] [address] PCP - General Family Medicine 04/27/18 Guero Diaz MD [address] [facility] [address] [place] [address] Gastroenterology 03/12/20 Joel Acuna [address] [facility] [place] [address] Ophthalmology 03/14/24 Lovely Polk, workforce advisor Tip Scourer 10/02/24 10/30/24 Broom Bundler Relationship Specialty Start Date End Date Kali Bacon MD [address] [facility] [place] [address] PCP - General Family Medicine 04/27/18 Guero Diaz MD [address] [facility] [address] [place] [address] Gastroenterology 03/12/20 Joel Acuna [address] [place] [address] Ophthalmology 03/14/24 Broom Bundler Relationship Specialty Start Date End Date Kali Bacon MD [address] [place] [address] PCP - General Family Medicine 04/27/18 Guero Diaz MD [address] [address] Gastroenterology 03/12/20 Joel Acuna [address] [place] [address] Ophthalmology 03/14/24 Team Status: Inactive Member Role Status Dates Dr. Kali Bacon MD Primary Care Provider Active Start: November 28, 2024 End: November 28, 2024 Dr. Kali Bacon MD Referring Provider Active Start: November 28, 2024 End: November 28, 2024 Dr. Leo Rubio MD Attending Provider Active S tart: November 28, 2024 End: November 28, 2024 Team Status: Inactive Member Role Status Dates Dr. Kali Baocn MD Primary Care Provider Active Start: December 25, 2024 End: December 25, 2024 Dr. Kali Bacon MD Referring Provider Active Start: December 25, 2024 End: December 25, 2024 Dr. Dominic Issa MD Attending Provider Active Start: December 25, 2024 End: December 25, 2024 Team Status: Inactive Member Role Status Dates Dr. Kali Bacon MD Primary Care Provider Active Start: December 25, 2024 End: December 25, 2024 Dr. Leo Rubio MD Attending Provider Active S tart: December 25, 2024 End: December 25, 2024 Team Status: Inactive Member Role Status Dates Dr. Kali Bacon MD Primary Care Provider Active Start: January 16, 2025 End: January 16, 2025 INDU Acuña Attending Provider Active Star t: January 16, 2025 End: January 16, 2025 INDU Acuña Referring Provider Active Star t: January 16, 2025 End: January 16, 2025 Team Status: Active Member Role Status Dates Dr. Kali Bacon MD Primary Care Provider Active Start: January 16, 2025 Dr. Abraham Gilbert MD Attending Provider Active S tart: January 16, 2025 Broom Bundler Relationship Specialty Start Date End Date Kali Bacon MD [address] [place] [address] PCP - General Family Medicine 04/27/18 Guero Diaz MD [address] [place], [place] [id number] Gastroenterology 03/12/20 Joel Acuna [address] [place], [place] [id number] Ophthalmology 03/14/24 Team Status: Inactive Member Role Status Dates Dr. Kali Bacon MD Primary Care Provider Active Start: January 26, 2025 End: January 26, 2025 Dr. Kali Bacon MD Referring Provider Active Start: January 26, 2025 End: January 26, 2025 Dr. Dominic Issa MD Attending Provider Active Start: January 26, 2025 End: January 26, 2025 INFORMATION SOURCE (unrecogn ized section and content) DATE CREATED AUTHOR 12/27/2022 [facility] DATE CREATED AUTHOR AUTHOR'S ORGANIZ ATION 01/25/2023 [facility] DATE CREATED AUTHOR AUTHOR'S ORGANIZ ATION 11/18/2024 [facility] DATE CREATED AUTHOR AUTHOR'S ORGANIZ ATION 01/27/2025 [facility] DATE CREATED AUTHOR AUTHOR'S ORGANIZ ATION 01/27/2025 [facility] DATE CREATED AUTHOR AUTHOR'S ORGANIZ ATION 01/29/2025 [facility] FOR RECORDS PERTAINING TO PATIENTS WHO ARE [...] BE BASED ON THE PRIMARY CLINICAL RECORDS. [facility] [employer] [facility]. provides no warranty or guarantee of the accuracy or completeness of information in this document.
[2025-01-31] MEDS: Lactated Ringers 1,000 ML 15 ML IV (06:41)
[2025-01-31] MEDS: Magnesium 2 GM for ERAS IV (06:41)
[2025-01-31] MEDS: Vancomycin HCl 1,250 MG in 0.9% Normal Saline (250mL Bag) 250 ML 167 MG IV ×2 (06:45→20:06)
--- NOTE | 2025-01-31 07:05 | PRE.ANES_ITS ---
ASA Classification* ASA Classification ASA Classification: 3 Assessment & Plan Anesthesia* Anesthesia Assessment Anesthesia Assessment: Discussed sedation and/or anesthesia options, risks, benefits, and alternatives with patient/parents/legal guardian/POA. Questions invited. The patient/parents/legal guardian/POA seems to understand and agrees to proceed with anesthesia plan. Reviewed the physical assessment, medical history, allergy history and patient home medications list prior to surgery/procedure/anesthetic and documented any changes. Performed airway and anesthesia risk assessments. Anesthesia Type Anesthesia Type: General (Consider Kelso scope intubation.) History Source History Obtained from:: Patient and Chart Anesthesia Focused Assessment* Temperature: 98.3 F Pulse Rate: 87 Blood Pressure: 148/56 Respiratory Rate: 16 Pulse Ox: 97 Oxygen Delivery Method: Room Air Airway Assessment Mouth opens: >3 cm Mallampati Score: IV Teeth Condition: Intact Neck Range of motion (ROM): Limited ROM (Somewhat decreased extension) Labs Anesthesia Preop lab: CBC WBC 10.9 K/mm3 (4.4-11.0) 01/22/25 07:42 01/22/25 RBC 4.25 M/mm3 (4.2-5.4) 01/22/25 07:42 01/22/25 Hgb 12.7 g/dL (12.0-15.0) 01/22/25 07:42 01/22/25 Hct 37.9 % (37-47) 01/22/25 07:42 01/22/25 Plt Count 276 K/mm3 (150-450) 01/22/25 07:42 01/22/25 CHEMISTRY Potassium 3.6 mmol/L (3.3-5.1) 01/22/25 07:42 01/22/25 Sodium 139 mmol/L (133-145) 01/22/25 07:42 01/22/25 Magnesium 0.9 mg/dL (1.5-2.2) L* 01/22/25 07:41 01/22/25 BUN 14 mg/dL (4-19) 01/22/25 07:42 01/22/25 Creatinine 0.77 mg/dL (0.70-1.20) 01/22/25 07:42 01/22/25 Glucose 139 mg/dL (70-99) H 01/22/25 07:42 01/22/25 POC Glucose 107 mg/dL (74-106) H 01/27/24 07:48 01/27/24 TSH 2.08 uIU/mL (0.358-3.74) 10/08/22 02:05 COAG PT 13.2 SECONDS (11.7-14.9) 08/31/24 09:48 Pre-Assessment Diagnosis/Proposed Procedure Planned Operative Procedure(s): 360 Lumbar Fusion L4-5, possible cement augmentation Anesthesia History 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 When Was Last Pacemaker Check QUESTION #4 FULL TEXT: You/Your Family Experience fever (hyperthermia) with Anesthesia Last Oral Intake Last Oral intake: Last Oral Intake NPO since 03:00 01/31/25 06:13 Meds taken in AM with sips of Yes 01/31/25 06:13 water? Meds patient instructed to take am of surgery Any additional information?: Yes NPO since: 03:00 (Patient took her preop Ensure at 3 AM.) Meds taken in AM with sips of water?: Yes Meds patient instructed to take am of surgery: Tramadol, acetaminophen. PONV PONV - voice data communications engineer: PONV - voice data communications engineer Female Yes 01/17/25 08:53 HX of Motion Sickness Yes 01/17/25 08:53 HX of N/V After Surgery No 01/17/25 08:53 Non-Smoker Yes 01/17/25 08:53 Duration of Surgery greater Yes 01/17/25 08:53 than 60 minutes Number of Risk Factors 4 01/17/25 08:53 PONV Score Severe Risk 01/17/25 08:53 Height & Weight Height & Weight: Anesthesia: Height & Weight Height 5 ft 3 in 01/31/25 06:13 Weight: 87.543 kg 01/31/25 06:13 Body Mass Index (BMI) 34.2 01/31/25 06:13 Respiratory Assessment Respiratory Assessment - voice data communications engineer: Respiratory Tract Infection Hx - voice data communications engineer Hx Respiratory Tract Infection No 01/17/25 08:53 STOP Sleep Apnea STOP Sleep Apnea - voice data communications engineer: STOP Sleep Apnea - voice data communications engineer Hx Hypertension Yes: on meds 01/17/25 08:53 Hx Sleep Apnea No 01/17/25 08:53 CPAP BIPAP Do you snore loudly (louder No 01/17/25 08:53 than talking or can be heard Do you often feel tired/ No 01/17/25 08:53 fatigued/ sleepy during daytime? Has anyone observed you stop No 01/17/25 08:53 breathing during sleep? STOP Results Negative 01/17/25 08:53 QUESTION #5 FULL TEXT : Do you snore loudly (louder than talking or can be heard through closed doors)? 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 Specify any problems Hx of Preganancy in last 3 No 01/17/25 08:53 Months Nurse Filling Out Transfusion SONAL 01/17/25 08:53 & Questions: Date: 01/17/25 01/17/25 08:53 Time: 08:55 01/17/25 08:53 Patient unable to answer at this time (ie. confused, unrespo /Reproduction History /Reproductive History - voice data communications engineer: /Reproductive Hx- voice data communications engineer Hx Now No 01/17/25 08:53 Gestational Age (in weeks): EDC: Hx Hx Para Hx Section SAB No 01/17/25 08:53 Active Medications Active Medications: Current Medications Generic Name Dose Route Start Last Admin Trade Name Freq PRN Reason Stop Dose Admin Acetaminophen 1,000 mg 01/31/25 07:30 01/31/25 06:20 Acetaminophen 500 Mg Tablet PO 01/31/25 07:31 Not Given PREOP ONE Magnesium Sulfate 2 gm/ 104 mls @ 208 mls/hr 01/31/25 07:30 01/31/25 06:41 Dextrose IV 01/31/25 07:59 208 mls/hr INTRAOP ONE Administration Tranexamic Acid 1,000 mg/ 110 mls @ 440 mls/hr 01/31/25 07:30 Sodium Chloride IV 01/31/25 07:44 INTRAOP ONE Tranexamic Acid 1,000 mg/ 110 mls @ 440 mls/hr 01/31/25 07:30 Sodium Chloride IV 01/31/25 07:44 INTRAOP ONE Vancomycin HCl 1,250 mg/ 275 mls @ 167 mls/hr 01/31/25 07:30 01/31/25 06:45 Sodium Chloride IV 01/31/25 09:08 167 mls/hr PREOP ONE Administration Lactated Ringer's 1,000 mls @ 15 mls/hr 01/31/25 05:45 01/31/25 06:41 IV 15 mls/hr .Q48H EDUARDO Administration Insulin Human Lispro 1 - 6 unit 01/31/25 07:30 Insulin Lispro 100 Unit/Ml Insuln.Pen SC 01/31/25 18:00 Q4H PRN PRN BG>/= 180, SEE PROTOCOL Protocol PFSH Medical History Sepsis Post-menopausal Depression Walker as ambulation aid Bladder disease Low iron Back pain Dietary restriction History of pain when walking History of transesophageal echocardiography (CHERI) Wears glasses Anxiety Restless legs History of hiatal hernia Gastric reflux History of IBS Non-smoker History of edema History of echocardiogram Cardiology follow-up encounter Left carotid bruit Postoperative atrial fibrillation H/o difficulty anesthesia Stomach inflammation Carotid stenosis Hyperlipidemia Hypertension Diabetes Asthma Arthritis Home Medications ?Medication ?Instructions ?Recorded ?Last Taken ?Type montelukast 10 mg tablet 10 mg PO QHS ASTHMA 05/21/16 01/30/25 20:00 History cetirizine 10 mg capsule (Zyrtec) 5 mg PO DAILY allerg y symptoms 05/18/18 01/30/25 08:00 History Al hyd-Mg tr-alg ac-sod bicarb 80 1 tab PO DAILY PRN G 05/22/19 01/30/25 12:00 History mg-14.2 mg chewable tablet (Gaviscon) metformin 1,000 mg 24 hr 1,000 mg PO BID DIABETES 03/0301/30/25 20:00 History tablet,extended release (gastric reten.) albuterol sulfate 90 mcg/actuation 2 puff inhalation Q 6H PRN 11/04/22 01/22/24 History aerosol inhaler Shortness Of Breath Or Wheez ing aspirin 81 mg tablet,delayed 81 mg PO DAILY HEART HEAL TH 12/21/22 01/24/25 History release (Adult Low Dose Aspirin) tramadol 50 mg tablet 50 mg PO 4X/DAY Pain 3 01/31/25 03:30 History glimepiride 4 mg tablet (Amaryl) 4 mg PO DAILY DIABETE S 03/11/23 01/30/25 06:00 History rosuvastatin 10 mg tablet (Crestor) 10 mg PO QHS HLD 0 09/17/23 01/30/25 20:00 History omeprazole 40 mg capsule,delayed 40 mg PO BID GERD 01/30/25 20:00 History release pioglitazone 45 mg tablet (Actos) 45 mg PO DAILY DIABE PITA 01/11/24 01/30/25 06:00 History lisinopril 20 1 tab PO DAILY htn 01/25/24 01/30/25 06:00 History mg-hydrochlorothiazide 12.5 mg tablet triamcinolone acetonide 0.1 % 1 applic topical QDAY CO N SKIN 05/03/24 Unknown History topical cream ipratropium 0.5 mg-albuterol 3 mg 3 ml inhalation Q20M PRN shortness 08/29/24 Unknown History (2.5 mg base)/3 mL nebulization of breath or wheezing soln nystatin 100,000 unit/gram topical 1 applic topical TI D PRN YEAST 09/18/24 01/29/25 Rx powder (Nystop) INFECTION #15 mg sitagliptin phosphate 100 mg 100 mg PO QDAY diabetic 0 10/25/24 01/30/25 06:00 History tablet (Januvia) acetaminophen 500 mg tablet 1,000 mg PO TID PRN pain 0 01/17/25 01/31/25 03:30 History (Tylenol Extra Strength) calcium carb-ergocalciferol (vit 2 tab PO BID suppleme nt 01/17/25 01/30/25 12:00 History D2) 500 mg (1,250 mg)-200 unit tablet multivitamin with minerals-folic 1 tab PO DAILY supple ment 01/17/25 01/30/25 12:00 History acid 120 mcg chewable tablet (Adult Multivitamin Gummies) magnesium 200 mg tablet 200 mg PO DAILY supplement 0 01/31/25 01/30/25 16:00 History Allergy/AdvReac Type Severity Reaction Status Date / Time doxycycline Allergy Mild unknown Verified 01/31/25 05:57 sulfamethoxazole (From Allergy Mild unknown Verified 01/31/25 05:57 Bactrim) trimethoprim (From Bactrim) Allergy Mild unknown Verified 01/31/25 05:57 amoxicillin (From Augmentin) Allergy Hives Verified 01/31/25 05:57 cefprozil (From Cefzil) Allergy Hives Verified 01/31/25 05:57 clavulanic acid (From Allergy Hives Verified 01/31/25 05:57 Augmentin) dextromethorphan (From Allergy Hives Verified 01/31/25 05:57 NyQuil) doxylamine (From NyQuil) Allergy Hives Verified 01/31/25 05:57 erythromycin base Allergy Hives Verified 01/31/25 05:57 gatifloxacin (From Tequin) Allergy Hives Verified 01/31/25 05:57 lincomycin Allergy Hives Verified 01/31/25 05:57 metoclopramide (From Reglan) Allergy Other Verified 01/31/25 07:13 pseudoephedrine (From NyQuil) Allergy Hives Verified 01/31/25 05:57 empagliflozin (From AdvReac Severe UTI/sepsis Verified 01/31/25 05:57 Jardiance) morphine AdvReac Intermediate tachycardia Verified 01/31/25 05:57 Family History Father No problems noted. Mother CVA (cerebral vascular accident) Heart disease Sister Colon cancer Diabetes Brother Thyroid disorder Thyroid cancer Sister Cancer vaginal Diabetes Brother Diabetes Surgical History Hx of vascular surgery Hx of right cataract extraction Hx of left cataract extraction History of colonoscopy History of esophagogastroduodenoscopy (EGD) History of cardiac catheterization H/O removal of cyst History of lumpectomy H/O knee surgery History of coronary artery bypass graft x 3 (~11/26/22) fallopian tube surgery Hx of cholecystectomy H/O oophorectomy H/O tubal ligation History of ear surgery Social History household members: spouse housing: house Smoking Status: Never smoker alcohol intake: never substance use type: does not use caffeine: Yes what type of physical activity do you participate in: walking frequency: 3-4 times per week seatbelt use: always do you feel safe at home: Yes additional social history: Ross Patient and both retired Review of Systems (Anesthesia) ROS Narrative System reviewed and no additional complaints, except as documented. Physical Exam Resp clear to auscultation bilaterally
[2025-01-31 07:14] LABS: Bedside Glucose 155 mg/dL (74-106)
--- NOTE | 2025-01-31 07:15 | PCM.HP.BLA ---
History and Physical Date of Admission: 01/31/25 MR#: [id number] Acct: [id number] Name: JANESSA TORREZ Rep #: [id number] : 1950 Provider: Dr. Dominic Issa MD Age/Sex: 74/F Location: [facility] [email or web address] Status: Signed Intake Vital Signs 12/25/2514:40 Height 5 ft 3 in Intake Visit Reasons: lumbar spine Chief Complaint: pre-op Accompanied by: Allergies doxycycline Allergy (Mild, Verified 01/26/25 12:55) unknownsulfamethoxazole (From Bactrim) Allergy (Mild, Verified 01/26/25 12:55) unknowntrimethoprim (From Bactrim) Allergy (Mild, Verified 01/26/25 12:55) unknownamoxicillin (From Augmentin) Allergy (Verified 01/26/25 12:55) Hivescefprozil (From Cefzil) Allergy (Verified 01/26/25 12:55) Hivesclavulanic acid (From Augmentin) Allergy (Verified 01/26/25 12:55) Hivesdextromethorphan (From NyQuil) Allergy (Verified 01/26/25 12:55) Hivesdoxylamine (From NyQuil) Allergy (Verified 01/26/25 12:55) Hiveserythromycin base Allergy (Verified 01/26/25 12:55) Hivesgatifloxacin (From Tequin) Allergy (Verified 01/26/25 12:55) Hiveslincomycin Allergy (Verified 01/26/25 12:55) Hivesmetoclopramide (From Reglan) Allergy (Verified 01/26/25 12:55) Otherpseudoephedrine (From NyQuil) Allergy (Verified 01/26/25 12:55) Hivesempagliflozin (From Jardiance) Adverse Reaction (Severe, Verified 01/26/25 12:55) UTI/sepsismorphine Adverse Reaction (Intermediate, Verified 01/26/25 12:55) tachycardia Medications ?Medication ?Instructions ?Recorded ?Confirmed ?Type montelukast 10 mg tablet 10 mg PO QHS ASTHMA 05/21/16 01/26/25 History cetirizine 10 mg capsule (Zyrtec) 5 mg PO DAILY allergy symptoms 05/18/18 01/26/25 History Al hyd-Mg tr-alg ac-sod bicarb 80 1 tab PO DAILY PRN GAS 05/22/19 01/26/25 History mg-14.2 mg chewable tablet (Gaviscon) metformin 1,000 mg 24 hr 1,000 mg PO BID DIABETES 05/22/19 01/26/25 History tablet,extended release (gastric reten.) albuterol sulfate 90 mcg/actuation 2 puff inhalation Q6H PRN 11/04/22 01/26/25 History aerosol inhaler Shortness Of Breath Or Wheezing aspirin 81 mg tablet,delayed 81 mg PO DAILY HEART HEALTH 12/21/22 01/26/25 History release (Adult Low Dose Aspirin) tramadol 50 mg tablet 50 mg PO 4X/DAY Pain 01/04/23 01/26/25 History glimepiride 4 mg tablet (Amaryl) 4 mg PO DAILY DIABETES 03/11/23 01/26/25 History rosuvastatin 10 mg tablet (Crestor) 10 mg PO QHS HLD 09/17/23 01/26/25 History omeprazole 40 mg capsule,delayed 40 mg PO BID GERD 10/12/23 01/26/25 History release pioglitazone 45 mg tablet (Actos) 45 mg PO DAILY DIABETES 01/11/24 01/26/25 History lisinopril 20 1 tab PO DAILY htn 01/25/24 01/26/25 History mg-hydrochlorothiazide 12.5 mg tablet triamcinolone acetonide 0.1 % 1 applic topical QDAY PRN SKIN 05/03/24 01/26/25 History topical cream ipratropium 0.5 mg-albuterol 3 mg 3 ml inhalation Q20M PRN shortness 08/29/24 01/26/25 History (2.5 mg base)/3 mL nebulization of breath or wheezing soln nystatin 100,000 unit/gram topical 1 applic topical TID PRN YEAST 09/18/24 01/26/25 Rx powder (Nystop) INFECTION #15 mg sitagliptin phosphate 100 mg 100 mg PO QDAY diabetic 10/25/24 01/26/25 History tablet (Januvia) acetaminophen 500 mg tablet 1,000 mg PO TID PRN pain 01/17/25 01/26/25 History (Tylenol Extra Strength) calcium carb-ergocalciferol (vit 2 tab PO BID supplement 01/17/25 01/26/25 History D2) 500 mg (1,250 mg)-200 unit tablet multivitamin with minerals-folic 1 tab PO DAILY supplement 01/17/25 01/26/25 History acid 120 mcg chewable tablet (Adult Multivitamin Gummies) Have you fallen in the past year?: No PFSH Medical History Sepsis Post-menopausal Depression Walker as ambulation aid Bladder disease Low iron Back pain Dietary restriction History of pain when walking History of transesophageal echocardiography (CHERI) Wears glasses Anxiety Restless legs History of hiatal hernia Gastric reflux History of IBS Non-smoker History of edema History of echocardiogram Cardiology follow-up encounter Left carotid bruit Postoperative atrial fibrillation H/o difficulty anesthesia Stomach inflammation Carotid stenosis Hyperlipidemia Hypertension Diabetes Asthma Arthritis Surgical History Hx of vascular surgery Hx of right cataract extraction Hx of left cataract extraction History of colonoscopy History of esophagogastroduodenoscopy (EGD) History of cardiac catheterization H/O removal of cyst History of lumpectomy H/O knee surgery History of coronary artery bypass graft x 3 (~11/26/22) fallopian tube surgery Hx of cholecystectomy H/O oophorectomy H/O tubal ligation History of ear surgery Family History Father No problems noted. Mother CVA (cerebral vascular accident) Heart diseaseSister Colon cancer DiabetesBrother Thyroid disorder Thyroid cancerSister Cancer vaginal DiabetesBrother Diabetes Social History household members: spouse housing: house Smoking Status: Never smoker alcohol intake: never substance use type: does not use caffeine: Yes what type of physical activity do you participate in: walking frequency: 3-4 times per week seatbelt use: always do you feel safe at home: Yes additional social history: Ross Patient and both retired HPI lumbar spine Details: This documentation accurately reflects the service provided and the decisions made by me, Dr. Dominic Issa MD 01/26/25 [id number]. Part of today?s visit was documented by Genna TATE, acting as scribe. JANESSA TORREZ is a 74 year old F here today for preop, lumbar spine, dos 01/31/25. Patient states that in her pre-op labs her magnesium was low so she saw her PCP Wednesday who gave her a prescription of magnesium to take for 3 days then she is going to have her blood drawn again to see if it has came up at all. 12/25/24: JANESSA TORREZ is a 74 year old F here today for lumbar spine pain. Patient is here to discuss surgery, her A1C is down now. She has an appointment coming up with pain management next Wednesday. She continues to have low back pain and difficulty walking distances which is worsening with time. She also underwent a bone scan for bone density a few months ago but does not say if she had any treatment from her PCP for her bone density. 07/20/24: JANESSA TORREZ is a 73 year old F here today for MRI review of her lumbar spine. She states that her pain has gotten worse since she was last here. Her pain is keeping her up at night and makes it very hard for her to sleep. She is on Tramadol for pain but states that it hardly touches the pain. She sees Dr. Cohen for injections and ablations but has not noticed any improvement. Says that she has nerve damage on her lateral left leg. History of diabetes, last a1c was 6.2. She was on Brilinta for carotid stenosis and cardiac bypass surgery. HPI from 02/03/24: JANESSA TORREZ is a 73 year old F here today for lumbar pain. Patient states that her back has bothered her for 5 years. Patient has no injury to her back. Patient did see Dr Mann in 2019. Patient does have severe Osteoarthritis in her back. Patient does see Dr Cohen and get injections done her last one was 11/04/23. Patient states the injections seem like they helped a while but now they don't seem to be helping and he suggest she come to us. Patient does have pain that radiates down her legs to the knee. Patient does have some numbness and tingling that goes down her left leg. Patient does have nerve damage on that leg. Patient is taking Tramadol QID, and then Tylenol 500mg she takes 6 tablets daily. Patient has tried heat and that helps. Janessa has seen Dr. Mann back in 2019 and also had an MRI back then. Since then she has had numerous epidural injections as well as radiofrequency ablations and pain management. Initially these helped but more recently these have not been giving her persistent relief. Her last injection was in October. She has difficulty walking distances. Of note she has a bandage on the left side of her neck which she says was related to her carotid surgery last week. She is also undergoing bypass surgery last year. She is on Brilinta and aspirin. Ortho Exam General General: Yes no acute distress Neurologic: Yes alert and Yes oriented x3 Spine SPINE TESTING CERVICAL THORACIC LUMBAR Musculoskeletal Strength 0=absent - 5=normal Details: Exam of the back shows midline paraspinal tenderness. Neurologic evaluation of lower extremity shows 5 x 5 power normal shows normal sensations in all dermatomes. Coding Level of Care Code Off vis,est,level 4 Diagnoses Spondylolisthesis of lumbar region M43.16 Spinal stenosis of lumbar region with neurogenic claudication M48.062 Age-related osteoporosis without current pathological fracture M81.0 Osteoporosis type: age-related Presence of current pathological fracture: without current pathological fracture Time Spent (min) 35 Assessment and Plan Assessment and Plan (1) Spondylolisthesis of lumbar region: Status: Acute (2) Spinal stenosis of lumbar region with neurogenic claudication: Status: Acute (3) Osteoporosis: Status: Acute Qualifiers: Osteoporosis type: age-related Presence of current pathological fracture: without current pathological fracture Qualified Code(s): M81.0 - Age-related osteoporosis without current pathological fracture Plan Again reviewed prior xrays which shows L4-5 spondylolisthesis which is degenerative and mildly unstable on flexion-extension views, and low bone density. MRI shows severe stenosis at L4-5. At L5-S1 there is a left paracentral disc bulge with lateral recess stenosis. At L3-4 there is mild to moderate central stenosis. DEXA scan done at [facility] shows osteoporosis. Explained imaging findings in detail. Explained to her that most of her stenosis is at L4-5 which is unstable with spondylolisthesis. She does have a left paracentral L5-S1 disc bulge with lateral recess stenosis, but the patient does not seem to endorse any radicular symptoms from this or has any asymmetry of symptoms and the 2 sides. With her multiple medical comorbidities including cardiac and vascular pathologies, I would limit the surgery to the most severe level in order to reduce the length of the surgery and rehab. Patient is at a stage where she has had numerous epidural injections as well as radiofrequency ablation and her symptoms are worsening and her claudication is making her lesser and lesser mobile. She wishes to proceed with surgical intervention. Discussed a L4-5 anterior and posterior with indirect decompression lumbar fusion. Explained the risks and benefits of surgery in detail. She has been on calcium vitamin D [id number] as per recommendation from PCP. The risks of surgery include but are not limited to infection, bleeding, injury to nerves and vessels, ileus, visceral injury, vascular injury, need for blood transfusion, persistent pain, persistent numbness and weakness, DVT, pulm embolism, pneumonia, atelectasis, hardware failure, pseudoarthrosis, need for further surgery, adjacent segment degeneration. Patient understands and agrees to proceed with surgery. Consent was signed.
[2025-01-31] MEDS: TRANEXAMIC ACID 1,000 MG in 0.9% Normal Saline (100mL Bag) 100 ML 440 MG IV ×2 (08:03→11:07)
--- NOTE | 2025-01-31 08:22 | RAD_ITS ---
PROCEDURE: LUMBAR SPINE 2 OR 3 VIEWS 01/31/2025 REASON FOR EXAM: 360 LUMBAR FUSION L4-5 TECHNIQUE: LUMBAR SPINE 2 OR 3 VIEWS COMPARISON: 12/26/2024. FINDINGS: Fluoroscopic images were performed. 80.7 seconds consent fluoroscopic time. 64.75 mGy. See procedure report for full details. RAD/Lumbar Spine 2 or 3 Views IMPRESSION: As above. Reading Location: [id number]
[2025-01-31] MEDS: Ropivacaine 0.5% 30 ML Vial (11:08)
--- NOTE | 2025-01-31 11:36 | OP.PCM_ITS ---
Procedures Musculoskeletal 20xxx-29xxx: Other Procedure See Report Operative Report (Standard) Operative Information Date of Procedure: 01/31/25 Pre-Operative Diagnosis: L4-5 spondylolisthesis, stenosis with neurogenic claudication Post-Operative Diagnosis: Same Surgery/Procedure Performed: L4-5 oblique lumbar interbody fusion supervisor channel process: Yes Certified Emergency Vehicle Technician: Lynne Miller Tasks completed by physician assistant surgery: Closing, Removing tissue, Hemostasis: Electrocautery and Retracting Type of Anesthesia: General RN Documented Start/Stop Times: Operation Date: 01/31/25 07:30 Case Time Into Pre-Op 01/31/25 05:38 Out of Pre-Op 01/31/25 07:44 Anesthesia Start 01/31/25 07:48 Into Room 01/31/25 07:48 Procedure Start 01/31/25 08:35 Procedure Start Time: 08:35 Procedure Stop Time: 11:37 Select all DRAINS/GRAFTS/IMPLANTS that apply: Graft Graft details: Medtronic infuse BMP sponge, cancellous allograft bone chips and Implanted device Implanted device details: DePuy [place] [employer] lateral lumbar interbody cage Estimated Blood Loss: 50 cc Specimen collected: No Description of surgery: Preoperative diagnosis: L4-5 spondylolisthesis, stenosis with neurogenic claudication Postoperative diagnosis: Same Name of procedures L4-5 oblique lumbar interbody fusion (OLIF), minimally invasive left sided approach, lateral decubitus: ? L4-5 anterolateral spinal fusion 64793 ? L4-5 insertion of cage 94335 ? Allograft cancellous chips [id number] Attending Surgeon: Dr. Dominic Issa Estimated blood loss: 50 mL Anesthesia: General Complications: None Indications: Patient is a 74-year-old pleasant lady who has had a long history of low back pain and bilateral lower extremity radiation, difficulty walking distances. Xrays & MRI revealed L4-5 degenerative spondylolisthesis with dynamic instability with severe stenosis. After undergoing a prolonged period of nonoperative treatment, the patient elected to undergo surgical decompression & fusion. All surgical options were discussed with the patient including anterior and posterior approaches. All risks and benefits associated with the procedure were explained to the patient. The risks include but are not limited to infection, bleeding, injury to nerves and vessels including major vessels like IVC and aorta, persistent paresthesia, persistent pain, dural tear, need for further procedures, adjacent segment degeneration, pseudoarthrosis, hardware failure, retrograde ejaculation, paralytic ileus, etc. Procedure: The patient was identified in the preoperative holding suite using Unique patient identifiers. Skin was marked, consent was reviewed, and all questions were answered. The patient was then brought back to the operative room. A surgical timeout was performed to make sure correct procedure was being done on the correct patient and all operative room staff were on the same page. General endotracheal anesthesia was then given to the patient. Fraga catheter was inserted. The patient was then carefully positioned in right lateral decubitus position with the left side up on a regular OR table. Axillary roll was placed and all bony prominences were well- padded. Hip positioners were placed in the posterior buttocks and anterior sternal area. The surgical area was prepped and draped in usual fashion. Preoperative antibiotic was injected IV as preoperative antibiotic. A final timeout was then again done just before starting the procedure. A 2 inch incision oblique was taken in the left lower quadrant of the abdomen 2 fingerbreadths away from the iliac crest and the lower ribs. Sharp dissection with Bovie was carried out up to the fascia covering the external oblique. The external oblique, internal oblique and transversus abdominis muscles were split along the muscle fibers and retroperitoneal space was entered. Sponge sticks were utilized to move the bowel and peritoneum [id number]-[id number]-way and psoas muscle was exposed staying within the retroperitoneal plane. [employer] retractor system was positioned and the retractor blade was applied onto the psoas. The interval between psoas and midline structures was developed and appropriate retractors were placed. Once adequate interval was cleared, a disc space was identified and a marker x-ray was taken. This identified the L4-5 disc level. Annulotomy was done with a long handled knife. Pituitary was used to remove disc material. Curettes were used to prepare the endplates. Disc space spreaders were utilized to distract and increase the disc height. Near complete discectomy was performed. Smaller disc distractors were also used to bluntly perform a contralateral annulotomy. Trials of serially increasing sizes were used. [employer] infuse BMP sponge along with cancellous bone chips was packed into a [employer] [place] cage of size of the 18 x 50 x 14 mm with 15 degrees lordosis. This was inserted into the L4-5 disc space. AP and lateral C-arm pictures were taken to confirm good position of the cage. Some bone chips were also packed around the cages. Screw with washer was placed into the lower L4 body with a washer partially covering the cage at L4-5. Hemostasis was confirmed. The retractor blades were removed. Closure was done in layers with a continuous strand of # 1 Vicryl in all muscle layers. 2-0 Vicryl was used for subcutaneous tissue and 4-0 for Monocryl for the skin. Steri-Strips were applied and 4 x 4 gauze and Tegaderm were applied. [employer] Lynne Miller PA-C. My physician administrative personal assistant was a vital part of this case. They were important in appropriate retraction during the case, and protection of soft tissues during the procedure. Their intimate knowledge of the case and my steps aided in safe and expedient completion of the procedure as well as appropriate position of the patient during the surgery. They were also vital in assisting with closure under my direct supervision. Surgical Findings: See operative note Complications Complications: No
--- NOTE | 2025-01-31 11:42 | PCM.OPRPT ---
Procedures Musculoskeletal 20xxx-29xxx: Other Procedure See Report Operative Report (Standard) Operative Information Date of Procedure: 01/31/25 Pre-Operative Diagnosis: L4-5 spondylolisthesis, stenosis with neurogenic claudication Post-Operative Diagnosis: Same Surgery/Procedure Performed: L4-5 posterior spinal instrumented fusion, cement augmentation of pedicle screws hospital pharmacy technician: Yes Senior Controls Analyst: Lynne Miller Tasks completed by mobile sales assistant: Closing, Removing tissue, Implanting device, Hemostasis: Electrocautery and Retracting Type of Anesthesia: General RN Documented Start/Stop Times: Operation Date: 01/31/25 07:30 Case Time Into Pre-Op 01/31/25 05:38 Out of Pre-Op 01/31/25 07:44 Anesthesia Start 01/31/25 07:48 Into Room 01/31/25 07:48 Procedure Start 01/31/25 08:35 Procedure Start Time: 08:35 Procedure Stop Time: 11:37 Select all DRAINS/GRAFTS/IMPLANTS that apply: Graft Graft details: Allograft cancellous bone chips and Implanted device Implanted device details: DePuy Viper prime pedicle screw instrumentation, cement augmentation Estimated Blood Loss: 50 cc Specimen collected: No Description of surgery: Preoperative diagnosis: L4-5 spondylolisthesis, stenosis with neurogenic claudication Postoperative diagnosis: Same Name of procedures: L4-5 posterior percutaneous pedicle screw instrumented fusion with cement augmentation, prone: ? L4-5 posterior spinal fusion 39203 ? L4-5 posterior pedicle screw instrumentation 87661 ? Allograft cancellous chips [id number] Attending Surgeon: Dr. Dominic Issa Estimated blood loss: 50 mL (total for entire case) Anesthesia: General Complications: None Description of procedure: After the anterior procedure was complete, the patient was then turned supine. The patient was then transferred to Rambo table in prone position. Back was prepped and draped in usual fashion. C-arm AP view was then taken. C-arm was positioned in a way that L4 was centralized and superior endplate of was parallel to the beam. Spinous process was centered between the pedicles. Midline was marked with skin marker and lateral borders of the pedicles were also marked. Skin marker was also utilized to sasha transversely across the middle of the pedicles at L4. 2 vertical paramedian incisions of 1 inch were placed. The fascia was incised vertically. Finger dissection was utilized to palpate the transverse process and facet joint. Viper Prime screws with towers were inserted and docked onto the transverse processes. This was then slowly moved medially to reach the superior articular process of L4. This was then confirmed on C-arm and then a mallet was utilized to drive the trocar into the pedicle going up to the medial wall of the pedicle on AP view. This was performed both sides. C-arm lateral view confirmed that the tip of the trocar was in the vertebral body, and the screw was advanced into the pedicle and vertebral body. This was repeated similarly at L5 bilaterally. Screw sizes were 7 x 50 mm at L4, L5 on both sides. Due to patient's low bone density, screw purchase was less than optimal and a decision was made to augment with cement. Through the cannulated fenestrated screws, cement was passed under C-arm control to augment purchase of the pedicle screws. 45 mm precontoured titanium 5.5 mm lordotic russel on both sides were then passed through the screw extensions and reduced down to the screws with the help of [employer] Viper instrumentation system on both sides. AP and lateral view of the C-arm showed good positioning of the screws and cages. Final tightening with the torque screwdriver was then completed. [place] was utilized to roughen the facet joint at L4-5 on the right side. Cancellous allograft bone chips mixed with bone marrow aspirate were then placed over this decorticated area. Hemostasis was achieved. Closure was done in layers with 0 Vicryls for the fascia, 2-0 Vicryls for the subcutaneous tissue, and Monocryl for the skin. Dermabond was applied. Dressings were applied covered with Tegaderm. The patient was then turned supine onto a hospital bed. The patient was extubated and taken to PACU in stable condition. The patient tolerated the procedure well and no complications occurred. Depuy [place] cage & Viper Prime minimally invasive pedicle screw instrumentation system was utilized in this case. No dural tear was identified intraoperatively. I was present for the entirety of the case and performed the surgery. System Validation Engineer Lynne Miller PA-C. My physician community program assistant was a vital part of this case. They were important in appropriate retraction during the case, and protection of soft tissues during the procedure. Their intimate knowledge of the case and my steps aided in safe and expedient completion of the procedure as well as appropriate position of the patient during the surgery. They were also vital in assisting with closure under my direct supervision. Surgical Findings: See operative note Complications Complications: No
--- NOTE | 2025-01-31 11:51 | POSTOP.ANE_ITS ---
Anesthesia: Postop Eval I Current Vital Signs Temperature: 97.2 F Pulse Rate: 78 Blood Pressure: 110/48 Respiratory Rate: 22 Pulse Ox: 95 Oxygen Delivery Method: Nasal Cannula Oxygen Flow Rate (L/min): 4 Assessment Airway patent: No Spontaneous unlabored respirations: No Mental status: Awake nausea: No Vomiting: Yes Anesthesia Complication: No Fluid Hydration Crystalloid volume administer (ml): 1,200 Total IV fluid infused: 1,200 Progress Note Post-operative progress note: VSS see pacu note for details, pt vomited after exubation while talking to this ELECTRICIAN SUBSTATION SUPERVISOR approx 20 mL yellow. Anesthesia document: Postop Eval 1 completed: Yes
--- NOTE | 2025-01-31 13:49 | SUR.PHASEI ---
family update at 1hr pacu time and 2 hr pacu time
[2025-01-31] MEDS: Acetaminophen 500 MG Tablet 1000 MG PO ×2 (15:00→22:37)
[2025-01-31] MEDS: Methocarbamol 500 MG Tablet 1000 MG PO ×3 (15:00→22:37)
[2025-01-31] MEDS: oxyCODONE 5 MG Tablet PO ×2 (15:00→19:57)
[2025-01-31] MEDS: Ketorolac 15 MG/ML Vial IV (15:01)
--- NOTE | 2025-01-31 15:15 | PCM.CONS.GEN ---
Assessment & Plan Assessment/Plan (1) Spinal stenosis of lumbar region with neurogenic claudication: PLAN: Plan Patient is a 74-year-old female who presented to [facility] on 01/31/2025 for planned lumbar fusion procedure. Medicine consulted postoperatively for medical management. 1. L4-5 spondylolisthesis with spinal stenosis and neurogenic claudication ? Orthopedic surgery primary. S/p L4-5 oblique lumbar interbody fusion procedure with Dr. Issa on 01/31. Tolerated procedure well, no intraoperative complications noted. Pain control, DVT prophylaxis and further postoperative management per orthopedics. Follow-up postoperative labs this afternoon. PT/OT/case management consulted. 2. History of CAD with CABG x 3, history of carotid stenosis with stenting, hypertension, hyperlipidemia ? History of CABG in 2022 and TCAR (transcarotid artery revascularization) procedure on 01/25/[address] Gilbert. Was on aspirin and Brilinta postoperatively but only required Brilinta for 30 days. Mildly hypertensive to the 130s postoperatively, otherwise hemodynamically stable. Continue home baby aspirin pending DVT prophylaxis recommendation as above. Continue home lisinopril?hydrochlorothiazide with hold parameters in place. Continue home statin. 3. Type 2 diabetes mellitus ? A1c 6.5% on 01/22. Postop blood glucose 155. Hold all home medications. Will treat with sliding scale insulin with meals while inpatient. 4. Recent severe hypomagnesemia ? Magnesium 0.9 on preop labs on 01/22. Potassium was normal at 3.6. Was aggressively repleted at that time. Follow-up magnesium level this afternoon. 5. History of postoperative A-fib ? History of postoperative A-fib after CABG procedure back in 2022. Resolved without recurrence. Not on anticoagulation. In normal sinus rhythm postoperatively at this time, continue cardiac monitoring. 6. GERD ? Continue home PPI. 7. Asthma with seasonal allergies ? Stable postoperatively, not in acute exacerbation. Continue home Singulair, Zyrtec and albuterol inhaler as needed. 8. Class I obesity ? BMI 34 on admit. Complicates hospital course, care and prognosis. DVT prophylaxis: Per orthopedics Total clinical time spent by myself addressing the patient's medical issues, reviewing all the data, and collaborating with patient's care team: 50 minutes. HPI Consult Data Date of Consult: 01/31/25 HPI Narrative Reason for Consultation: Postoperative medical management HPI Narrative: JANESSA TORREZ, is a 74 F who presented to [facility] on 01/31/2025 for planned lumbar fusion procedure. Medicine consulted postoperatively for medical management. Patient had L4-5 oblique lumbar interbody fusion done with Dr. Issa today. Tolerated procedure well, no intraoperative complications noted. I saw the patient at bedside this afternoon. Patient was mildly fatigued appearing and mildly uncomfortable appearing due to lower back pain. States that she currently has moderate low back pain in the area of her surgical incision site. She denies any numbness or tingling down her extremities. Denies any fevers or chills. No other acute concerns currently. [facility] Medical History Sepsis Post-menopausal Depression Walker as ambulation aid Bladder disease Low iron Back pain Dietary restriction History of pain when walking History of transesophageal echocardiography (CHERI) Wears glasses Anxiety Restless legs History of hiatal hernia Gastric reflux History of IBS Non-smoker History of edema History of echocardiogram Cardiology follow-up encounter Left carotid bruit Postoperative atrial fibrillation H/o difficulty anesthesia Stomach inflammation Carotid stenosis Hyperlipidemia Hypertension Diabetes Asthma Arthritis Home Medications ?Medication ?Instructions ?Recorded ?Last Taken ?Type montelukast 10 mg tablet 10 mg PO QHS ASTHMA 05/21/16 01/30/25 20:00 History cetirizine 10 mg capsule (Zyrtec) 5 mg PO DAILY allergy symptoms 05/18/18 01/30/25 08:00 History Al hyd-Mg tr-alg ac-sod bicarb 80 1 tab PO DAILY PRN GAS 05/22/19 01/30/25 12:00 History mg-14.2 mg chewable tablet (Gaviscon) metformin 1,000 mg 24 hr 1,000 mg PO BID DIABETES 05/22/19 01/30/25 20:00 History tablet,extended release (gastric reten.) albuterol sulfate 90 mcg/actuation 2 puff inhalation Q6H PRN 11/04/22 01/22/24 History aerosol inhaler Shortness Of Breath Or Wheezing aspirin 81 mg tablet,delayed 81 mg PO DAILY HEART HEALTH 12/21/22 01/24/25 History release (Adult Low Dose Aspirin) tramadol 50 mg tablet 50 mg PO 4X/DAY Pain 01/04/23 01/31/25 03:30 History glimepiride 4 mg tablet (Amaryl) 4 mg PO DAILY DIABETES 03/11/23 01/30/25 06:00 History rosuvastatin 10 mg tablet (Crestor) 10 mg PO QHS HLD 09/17/23 01/30/25 20:00 History omeprazole 40 mg capsule,delayed 40 mg PO BID GERD 10/12/23 01/30/25 20:00 History release pioglitazone 45 mg tablet (Actos) 45 mg PO DAILY DIABETES 01/11/24 01/30/25 06:00 History lisinopril 20 1 tab PO DAILY htn 01/25/24 01/30/25 06:00 History mg-hydrochlorothiazide 12.5 mg tablet triamcinolone acetonide 0.1 % 1 applic topical QDAY PRN SKIN 05/03/24 Unknown History topical cream ipratropium 0.5 mg-albuterol 3 mg 3 ml inhalation Q20M PRN shortness 08/29/24 Unknown History (2.5 mg base)/3 mL nebulization of breath or wheezing soln nystatin 100,000 unit/gram topical 1 applic topical TID PRN YEAST 09/18/24 01/29/25 Rx powder (Nystop) INFECTION #15 mg sitagliptin phosphate 100 mg 100 mg PO QDAY diabetic 10/25/24 01/30/25 06:00 History tablet (Januvia) acetaminophen 500 mg tablet 1,000 mg PO TID PRN pain 01/17/25 01/31/25 03:30 History (Tylenol Extra Strength) calcium carb-ergocalciferol (vit 2 tab PO BID supplement 01/17/25 01/30/25 12:00 History D2) 500 mg (1,250 mg)-200 unit tablet multivitamin with minerals-folic 1 tab PO DAILY supplement 01/17/25 01/30/25 12:00 History acid 120 mcg chewable tablet (Adult Multivitamin Gummies) magnesium 200 mg tablet 200 mg PO DAILY supplement 01/31/25 01/30/25 16:00 History Allergy/AdvReac Type Severity Reaction Status Date / Time doxycycline Allergy Mild unknown Verified 01/31/25 05:57 sulfamethoxazole (From Allergy Mild unknown Verified 01/31/25 05:57 Bactrim) trimethoprim (From Bactrim) Allergy Mild unknown Verified 01/31/25 05:57 amoxicillin (From Augmentin) Allergy Hives Verified 01/31/25 05:57 cefprozil (From Cefzil) Allergy Hives Verified 01/31/25 05:57 clavulanic acid (From Allergy Hives Verified 01/31/25 05:57 Augmentin) dextromethorphan (From Allergy Hives Verified 01/31/25 05:57 NyQuil) doxylamine (From NyQuil) Allergy Hives Verified 01/31/25 05:57 erythromycin base Allergy Hives Verified 01/31/25 05:57 gatifloxacin (From Tequin) Allergy Hives Verified 01/31/25 05:57 lincomycin Allergy Hives Verified 01/31/25 05:57 metoclopramide (From Reglan) Allergy Other Verified 01/31/25 07:13 pseudoephedrine (From NyQuil) Allergy Hives Verified 01/31/25 05:57 empagliflozin (From AdvReac Severe UTI/sepsis Verified 01/31/25 05:57 Jardiance) morphine AdvReac Intermediate tachycardia Verified 01/31/25 05:57 Family History Father No problems noted. Mother CVA (cerebral vascular accident) Heart disease Sister Colon cancer Diabetes Brother Thyroid disorder Thyroid cancer Sister Cancer vaginal Diabetes Brother Diabetes Surgical History Hx of vascular surgery Hx of right cataract extraction Hx of left cataract extraction History of colonoscopy History of esophagogastroduodenoscopy (EGD) History of cardiac catheterization H/O removal of cyst History of lumpectomy H/O knee surgery History of coronary artery bypass graft x 3 (~11/26/22) fallopian tube surgery Hx of cholecystectomy H/O oophorectomy H/O tubal ligation History of ear surgery Social History household members: spouse housing: house Smoking Status: Never smoker alcohol intake: never substance use type: does not use caffeine: Yes what type of physical activity do you participate in: walking frequency: 3-4 times per week seatbelt use: always do you feel safe at home: Yes additional social history: [place] Patient and both retired ROS Constitutional Constitutional: Reports fatigue; Denies chills, fever(s) or weakness Eyes Eyes: Denies change in vision Cardiovascular Cardiovascular: Denies chest pain Respiratory/Chest Respiratory/Chest: Denies shortness of breath at rest Gastrointestinal Gastrointestinal: Denies abdominal pain Musculoskeletal Musculoskeletal: Reports back pain Neurologic Neurologic: Denies focal weakness, numbness, paresthesias or tingling Physical Exam Const alert, oriented x3 and no apparent distress Constitutional Narrative: Elderly female, class I obesity, mildly fatigued appearing and mildly uncomfortable appearing due to low back pain, otherwise answering questions appropriately and in no acute distress. General Appearance: cooperative HEENT normocephalic, head/scalp atraumatic, hearing grossly normal bilaterally, nasal mucous membranes and turbinates normal and moist oral mucous membranes Eyes PERRL, EOMs intact bilaterally and conjunctivae normal Neck full ROM Chest inspection of chest normal Resp normal respiratory effort, normal air movement, no use of accessory muscles and clear to auscultation bilaterally Cardio regular rate, regular rhythm, no murmurs and peripheral pulses 2+ throughout GI normal to inspection, nondistended, normoactive bowel sounds, soft to palpation, non-tender and non-distended Back/Spine Back/Spine Narrative: Bandage noted over incision site. Did not attempt any movement. Extremity normal to inspection and no pedal edema Skin no rashes or lesions noted Psych mental status grossly normal Lab / Micro Data 01/22/25 07:42 01/22/25 07:42 Labs: Laboratory Results - last 24 hr 01/31/25 06:10: POC Glucose 155 H Charges/Coding Visit Charges Inpatient E&M: 23259 Subs Hosp L3
--- NOTE | 2025-01-31 16:22 | POSTOPAN2_ITS ---
Anesthesia Postop Eval I Sum Postop Eval Completion status Anesthesia document: Postop Eval 1 completed: Yes Anesthesia Postop Eval I Summary Anesthesia Postop Eval I Summary: Anesthesia Postop Eval I: Assessment Summary Airway patent No 01/31/25 11:55 FRONT DESK PERSON.DBAK Spontaneous unlabored No 01/31/25 11:55 FRONT DESK PERSON.DBAK respirations Mental status Awake 01/31/25 11:55 FRONT DESK PERSON.DBAK nausea No 01/31/25 11:55 FRONT DESK PERSON.DBAK Vomiting Yes 01/31/25 11:55 FRONT DESK PERSON.DBAK Anesthesia Postop Eval I: Fluid Summary Crystalloid volume administer 1,200 01/31/25 11:55 FRONT DESK PERSON.DBAK (ml) Colloids volume administered ( ml) Blood Product volume administered (ml) Total IV fluid infused 1,200 01/31/25 11:55 FRONT DESK PERSON.DBAK Anesthesia Postop Eval I: Summary Notes Anesthesia Complication No 01/31/25 11:55 FRONT DESK PERSON.DBAK Anesthesia Complication Comment: Post-operative progress note VSS see pacu note 01/31/25 11:55 FRONT DESK PERSON.DBAK for details, pt vomited after exubation while talking to this FRONT DESK PERSON approx 20 mL yellow. Anesthesia: Postop Eval II Evaluation Mental status: Awake Pain Level: 3 nausea: No Vomiting: No
--- NOTE | 2025-01-31 16:22 | PCM.POSTANE2 ---
Anesthesia Postop Eval I Sum Postop Eval Completion status Anesthesia document: Postop Eval 1 completed: Yes Anesthesia Postop Eval I Summary Anesthesia Postop Eval I Summary: Anesthesia Postop Eval I: Assessment Summary Airway patent No 01/31/25 11:55 [email or web address] Spontaneous unlabored No 01/31/25 11:55 [email or web address] respirations Mental status Awake 01/31/25 11:55 [email or web address] nausea No 01/31/25 11:55 [email or web address] Vomiting Yes 01/31/25 11:55 [email or web address] Anesthesia Postop Eval I: Fluid Summary Crystalloid volume administer 1,200 01/31/25 11:55 [email or web address] (ml) Colloids volume administered ( ml) Blood Product volume administered (ml) Total IV fluid infused 1,200 01/31/25 11:55 [email or web address] Anesthesia Postop Eval I: Summary Notes Anesthesia Complication No 01/31/25 11:55 [email or web address] Anesthesia Complication Comment: Post-operative progress note VSS see pacu note 01/31/25 11:55 [email or web address] for details, pt vomited after exubation while talking to this COSMETICS DEMONSTRATOR approx 20 mL yellow. Anesthesia: Postop Eval II Evaluation Mental status: Awake Pain Level: 3 nausea: No Vomiting: No
[2025-01-31 17:11] LABS: Anion Gap 17 (5-15); BUN 14 mg/dL (4-19); Calcium,Total 8.8 mg/dL (7.6-11.0); Carbon Dioxide 21.3 mmol/L (21.0-32.0); Chloride 96 mmol/L (98-108); Creatinine, Serum 0.75 mg/dL (0.70-1.20); EST Glomerular Filtration Rate 84 (>60); Estimated Creatinine Clearance 66.69 ml/min (50-250); Glucose 225 mg/dL (70-99); Magnesium 1.7 mg/dL (1.5-2.2); Phosphorus 3.5 mg/dL (2.7-4.5); Potassium 3.7 mmol/L (3.3-5.1); Sodium Level 134 mmol/L (133-145)
[2025-01-31 18:41] LABS: Absolute Lymphocyte Count 1.11 X10^3/uL (0.83-4.51); Absolute Neutrophil Count 15.7 X10^3/uL (2.0-7.7); Basophil# 0.02 X10^3/uL; Basophil% 0.1 % (0-1); Hematocrit 35.7 % (37-47); Hemoglobin 12.2 g/dL (12.0-15.0); Lymphocyte # 1.11 X10^3/ul (0.83-4.51); Lymphocyte % 6.4 % (19-41); Mean Corp Hgb Conc 34.2 g/dL (32-36); Mean Corpuscular Hgb 30.2 pg (27.0-32.0); Mean Corpuscular Volume 88.4 fL (81-99); Monocyte# 0.35 X10^3/uL; NRBC Flagged by Analyzer 0 % (0-5); Neutrophil # 15.66 X10^3/uL (2.7-7.7); Neutrophil % 90.6 % (47-70); Platelet Count 248 K/mm3 (150-450); RBC Distribution Width CV 13.5 % (11.6-14.6); RBC Distribution Width SD 43.8 fl (35.1-43.9); Red Blood Count 4.04 M/mm3 (4.2-5.4); White Blood Count 17.3 K/mm3 (4.4-11.0)
--- NOTE | 2025-01-31 19:11 | NURSING ---
Pt has reaction to morphine documented in chart. OK to dc per Issa.
[2025-01-31] MEDS: Ketorolac 15 MG/ML Vial 30 MG IV (19:57)
[2025-01-31] MEDS: Atorvastatin Calcium 20 MG Tablet PO (22:38)
[2025-01-31] MEDS: Senna/Docusate Sodium 1 Tablet 2 TABLET PO (22:38)
[2025-01-31] MEDS: Pantoprazole Sodium 40 MG Tablet PO (22:38)
[2025-01-31] MEDS: Montelukast 10 MG Tablet PO (22:38)
[2025-01-31] MEDS: Insulin Lispro 100 UNIT/ML INSULN.PEN SC (22:41)
--- OUTSIDE RECORDS SUMMARY | 2025-01-31 22:47 | XMS RPT_ITS | CCD ---
Author Organization [facility] Care Team Providers Care Private Equity Associate Name Role Phone EBER Mena RN, Judi Alvarado Unavailable Unavailabl e Yvon KILN FIREMAN, Chanda S Unavailable [phone] Yvon KILN FIREMAN, Chanda S Unavailable [phone] Sarah William [...] Provider Dr. Kali Bacon Referring Provider Mansoor GRIGGS, PA Migdalia Rose Attending Provider Kali Bacon [...] Severino Referring Provider INDU Carbajal Attending Provider 1([facility])- 10 Kali Bacon MD Primary Care Provider [...] Kali Bacon MD Referring Provider Dr. Yany Armendariz MD Attending Provider Migdalia Severino Attending Provider [phone] Migdalia Severino Referring Provider [phone] Ramiro CHANEY, Dr. Bailey Attending Provider [phone] Yvon RODRIGUEZ-CChanda Attending Provider [phone] Yvon KILN FIREMAN-C, Chanda Referring Provider Noel CHANEY, Dr. Escobar [...] Provider Ramiro CHANEY, Dr. Bailey Attending Provider [place] KILN FIREMAN-C, Chanda Attending Provider Yvon KILN FIREMAN-C, Chanda Referring Provider Noel CHANEY, Dr. Escobar Attending Provider Noel CHANEY, Dr. Escobar Referring Provider Dr. Monica Rothman DO Attending Provider Dr. Monica Rothman DO Referring Provider MONICA BEY Attending KALI Lemus Primary [facility] HALIE Guerin Referring Unavailable Felicitas RN, Lovely Bacon MD, Dr. Bass Primary Care Provider Luis Manuel CHANEY, Dr. Alfaro Attending Provider Dr. Dominic sIsa MD Referring Provider Dr. Kali Bacon MD Referring Provider Ramiro CHANEY, Dr. Bailey Attending Provider [phone] Genesis Wolf Attending Provider Genesis Wolf Referring Provider Vladimir CHANEY, Dr. Rosario Attending [...] JORDI, KALI RODRIGUEZ Primary Care Unavailab le OJRDI, KALI RODRIGUEZ Attending Unavailab le JORDI, KALI RODRIGUEZ Primary Care Unavailab le JORDI, KALI RODRIGUEZ Attending Unavailab le JORDI, KALI RODRIGUEZ Primary Care Unavailab le JORDI, KALI RODRIGUEZ Referring Unavailab le JORDI, KALI RODRIGUEZ Primary Care Unavailab le JORDI, KALI RODRIGUEZ Attending Unavailab le JORDI, KALI RODRIGUEZ Primary Care Unavailab le JORDI, KALI RODRIGUEZ Primary Care Unavailab le BARRON, FANNY Attending Unavailable JORDIKALI Primary Care Unavailab le JORDI, KALI RODRIGUEZ Referring Unavailab le JORDI, KALI RODRIGUEZ Primary Care Unavailab le ANDERSON FANNY Referring Unavailable JORDIKALI Primary Care Unavailab HALIE Guerin Attending Unavailable JORDI, KALI RODRIGUEZ Primary Care Unavailab le JORDI, KALI RODRIGUEZ Primary Care Unavailab le JORDI, KALI RODRIGUEZ Referring Unavailab le JORDI, KALI RODRIGUEZ Referring Unavailab le JORDI, KALI RODRIGUEZ Primary Care Unavailab le JORDI, KALI RODRIGUEZ Referring Unavailab le JORDI, KALI JENNIFER Primary Care Unavailab le ANDERSON, FANNY Referring Unavailable JORDI, KALI JENNIFER Primary Care Unavailab le AMBAR DAVIDSON Admitting Unavailable JORDI, KALI JENNIFER Primary Care Unavailab LUDMILA Velazco Attending Unavailabl e JORDI, KALI JENNIFER Primary Care Unavailab le JORDI, KALI JENNIFER Primary Care Unavailab le JORDI, KALI JENNIFER Primary Care Unavailab le JORDI, KALI JENNIFER Primary Care Unavailab le JORDI, KALI JENNIFER Referring Unavailab le JORDI, KALI JENNIFER Primary Care Unavailab le JORDI, KALI JENNIFER Primary Care Unavailab le JORDI, KALI JENNIFER Referring Unavailab le JORDI, KALI JENNIFER Referring Unavailab le JORDI, KALI JENNIFER Primary Care Unavailab le JORDI, KALI JENNIFER Primary Care Unavailab le JORDI, KALI JENNIFER Primary Care Unavailab le JORDI, KALI JENNIFER Referring Unavailab le LYNN BARRONNA Attending Unavailable JORDI, KALI JENNIFER Referring Unavailab le JORDI, KALI JENNIFER Primary Care Unavailab le Migdalia Severino Referring Unavail able Migdalia Severino Attending Unavail able Jordi, Kali Primary Care Unavailable Yvon KILN FIREMAN, Chanda Referring Unavailable Yvon KILN FIREMAN, Cahnda Attending Unavailable Jordi, Kali Primary Care Unavailable Basali Ayman Attending Unavailable Basali, Ayman Referring Unavailable Jordi, Kali Primary Care Unavailable Carbajal, Genesis Referring Unavailable Carbajal, Genesis Attending Unavailable Jordi, Kali Primary Care Unavailable Yvon KILN FIREMAN, Chanda Referring Unavailable Yvon KILN FIREMANChanda Attending Unavailable Jordi, Kali Primary Care Unavailable Issa, Dominic Attending Unavailable Issa, Dominic Referring Unavailable Jordi, Kali Primary Care Unavailable Issa, Dominic Admitting Unavailable Issa, Dominic Referring Unavailable Isas, Dominic Attending Unavailable Jordi, Kali Primary Care Unavailable Migdalia Severino Attending Unavail able Jordi, Kali Primary Care Unavailable Jordi, Kali Referring Unavailable Yvon KILN FIREMAN, Chanda Attending Unavailable Jordi, Kali Primary Care Unavailable Jordi, Kail Referring Unavailable Issa, Dominic Attending Unavailable Jordi, Kali Primary Care Unavailable Jordi, Kali Referring Unavailable Jordi, Kali Primary Care Unavailable Ramiro, Leo Attending Unavailable Carbajal, Genesis Attending Unavailable Jordi, Kali Primary Care Unavailable Jordi, Kali Referring Unavailable Carbajal, Genesis Referring Unavailable Carbajal, Genesis Attending Unavailable Jordi, Kali Primary Care Unavailable Issa, Dominic Attending Unavailable Issa, Dominic Referring Unavailable Jordi, Kali Primary Care Unavailable Issa, Dominic Referring Unavailable Issa, Dominic Attending Unavailable Jordi, Kali Primary Care Unavailable Carbajal, Genesis Referring Unavailable Carbajal, Genesis Attending Unavailable Jordi, Kali Primary Care Unavailable Migdalia Severino Attending Unavail able Migdalia Severino Referring Unavail able Jordi, Kali Primary Care Unavailable Ramiro, [place] Attending Unavailable Jordi, Kali Primary Care Unavailable Issa, Dominic Attending Unavailable Jordi, Kali Primary Care Unavailable Jordi, Kali Referring Unavailable Carbajal, Genesis Attending Unavailable Jordi, Kali Primary Care Unavailable Jordi, Kali Referring Unavailable Issa, Dominic Attending Unavailable Jordi, Kali Primary Care Unavailable Jordi, Kali Referring Unavailable Jeff, Abelardo Consulting Unavailable Issa, Dominic Attending Unavailable Issa, Dominic Admitting Unavailable Issa, Dmoinic Referring Unavailable Jordi, Kali Primary Care Unavailable Vande VelGabbi manningMonica Referring Unavailabl e Vandmaira MenchacadeGabbiMonica Attending Unavailabl e Jordi, Kali Primary Care Unavailable Migdalia Severino Attending Unavail able Jordi, Kali Primary Care Unavailable Jordi, Kali Referring Unavailable Vande Velde Monica Attending Unavailabl e Jordi, Kali Primary Care Unavailable Jordi, Kali Referring Unavailable Ramiro, [place] Attending Unavailable Jordi, Kali Primary Care Unavailable Jordi, Kali Referring Unavailable Issa, Dominic Attending Unavailable Jordi, Kali Referring Unavailable Jordi, Kali Primary Care Unavailable Issa, Dominic Consulting Unavailable Carbajal, Genesis Referring Unavailable Vladimir, Abraham Attending Unavailable Jordi, Kali Primary Care Unavailable Issa, Dominic Attending Unavailable Jordi, Kali Primary Care Unavailable Jordi, Kali Referring Unavailable Migdalia Severino Referring Unavail able Ramiro, Leo Attending Unavailable Jordi, Kali Primary Care Unavailable Carbajal, Genesis Referring Unavailable Vladimir, Abraham Attending Unavailable Jordi, Kali Primary Care Unavailable Carbajal, Genesis Referring Unavailable Vladimir, Abraham Attending Unavailable Jordi, Kali Primary Care Unavailable Issa, Dominic Referring Unavailable Kali Bacon Primary Care Unavailable Isai [place] Attending Unavailable Dominic Issa Referring Unavailable Yany Armendariz Attending Unavailable Kali Bacon Primary Care Unavailable Migdalia Severino Attending Unavail able Kali Bacon Primary Care Unavailable Migdalia Severino Referring Unavail able Allergies Allergy Classification Reported Allergen(s) Allergy Type Date of Onset Reaction(s) Facility Acetaminophen (2 sources) Acetaminophen Drug Allergy 04-07-20 23 Unknown [facility] Adrenergic Agonists (2 sources) Pseudoephedrine Drug Allergy 02-01-20 17 [facility] Amoxicillin / Clavulanate (2 sources) Amoxicillin / Clavulanate Drug Allergy 04-27-20 18 Rash [facility] Cephalosporins (antibiotic) (2 sources) cefprozil Drug Allergy 04-27-20 18 [facility] Chlorpheniramine / Pseudoephedrine (2 sources) Chlorpheniramine / Pseudoephedrine Drug Allergy 04-27-20 18 [facility] Dextromethorphan (2 sources) Dextromethorphan Drug Allergy 02-01-20 17 [facility] DOPamine Antagonists (4 sources) Metoclopramide Drug Allergy 02-01-20 17 Unknown, Intolerance [facility] Doxycycline (2 sources) Doxycycline Drug Allergy 11-29-19 19 Unknown, Vomiting [facility] Doxylamine (2 sources) Doxylamine Drug Allergy 02-01-20 17 [facility] Iodine (and Iodine containting drugs) (2 sources) Iodine Drug Allergy 04-27-20 18 Unknown [facility] Lincomycin (2 sources) Lincomycin Drug Allergy 04-27-20 18 Rash [facility] Macrolides (antibiotic) (2 sources) Erythromycin Drug Allergy 04-27-20 18 Rash [facility] Opioid Agonists (2 sources) Morphine Drug Allergy 07-24-20 20 Unknown [facility] Quinolones (antibiotic) (2 sources) gatifloxacin Drug Allergy 04-27-20 18 Rash [facility] Sulfamethoxazole / Trimethoprim (2 sources) Sulfamethoxazole / Trimethoprim Drug Allergy 04-01-20 17 Unknown [facility] (5 sources) amoxicillin / clavulanate drug allergy 04-01-20 17 [facility] (5 sources) cefprozil drug allergy 04-01-20 17 [facility] (5 sources) Contrast media drug allergy 04-01-20 17 [facility] (9 sources) erythromycin; Translations: [ERYTHROMYCIN] drug allergy 04-01-20 17 [facility] (5 sources) gatifloxacin drug allergy 04-01-20 17 [facility] (20 sources) lincomycin; Translations: [LINCOMYCIN] drug allergy 02-01-20 17 [facility] (5 sources) lincomycin drug allergy 04-01-20 17 [facility] (5 sources) metoclopramide drug allergy 04-01-20 17 [facility] (5 sources) sulfamethoxazole / trimethoprim drug allergy 04-01-20 17 [facility] (5 sources) VICKS DAYQUIL/NYQUIL COUGH drug allergy 04-01-20 17 [facility] (20 sources) Acetaminophen; Translations: [ACETAMINOPHEN] Drug Allergy 07-24-20 21 Unknown [facility] (20 sources) Amoxicillin Drug Allergy 02-01-20 17 [facility] (20 sources) cefprozil; Translations: [CEFPROZIL] Drug Allergy 04-27-20 18 [facility] Work Phone: (20 sources) Clavulanate; Translations: [CLAVULANIC ACID] Drug Allergy 02-01-20 17 [facility] (20 sources) Dextromethorphan; Translations: [DEXTROMETHORPHAN] Drug Allergy 02-01-20 17 [facility] (20 sources) Doxycycline; Translations: [DOXYCYCLINE] Drug Allergy 11-29-19 19 Unknown, Vomiting, Vomiting Only [facility] (20 sources) Doxylamine; Translations: [DOXYLAMINE] Drug Allergy 02-01-20 17 [facility] (20 sources) Erythromycin Drug Allergy 04-01-20 17 [facility] Work Phone: (20 sources) gatifloxacin; Translations: [GATIFLOXACIN] Drug Allergy 04-27-20 18 [facility] Work Phone: [phone] (20 sources) Ibuprofen; Translations: [IBUPROFEN] Drug Allergy 02-01-20 17 Other: See [facility] (20 sources) Metoclopramide; Translations: [METOCLOPRAMIDE] Drug Allergy 02-01-20 17 Other: See Comments, Other, Unknown [facility] (20 sources) Morphine; Translations: [MORPHINE] Drug Allergy 07-24-20 20 Other: See Comments, [facility] (20 sources) Pseudoephedrine; Translations: [PSEUDOEPHEDRINE] Drug Allergy 02-01-20 17 [facility] (20 sources) Sulfamethoxazole; Translations: [SULFAMETHOXAZOLE] Drug Allergy 05-22-[address] [facility] (20 sources) Trimethoprim; Translations: [TRIMETHOPRIM] Drug Allergy 05-22-[address] [facility] (20 sources) Iodinated Contrast Media; Translations: [IODINATED CONTRAST MEDIA] Allergy to substance 05-22-20 19 [facility] (7 sources) CHOLESTEROL MEDS Allergy to substance 07-24-20 21 Other [facility] (20 sources) Amoxicillin / Clavulanate; Translations: [AMOXICILLIN-POT CLAVULANATE] Drug Allergy 04-27-20 18 [facility] Work Phone: (20 sources) Chlorpheniramine / Pseudoephedrine; Translations: [DAYQUIL ALLERGY 12-HR] Drug Allergy 04-27-20 18 [facility] Work Phone: (20 sources) Iodine; Translations: [IODINE] Drug Allergy 04-27-20 18 Other: See Comments, [facility] Work Phone: (20 sources) Metoclopramide; Translations: [METOCLOPRAMIDE HCL] Drug Allergy 04-27-20 18 [facility] Work Phone: (20 sources) Sulfamethoxazole / Trimethoprim; Translations: [SULFAMETHOXAZOLE-T RIMETHOPRIM] Drug Allergy 04-01-20 17 Other: See Comments, [facility] (16 sources) Cefprozil Allergy to substance 02-01-20 [facility] Gat[facility] Allergy to substance [facility]-01-20 [facility] HMG-CoA reductase inhibitor Drug Allergy 02-01-20 17 [facility] (16 sources) Sulfamethoxazole Allergy to substance 05-22-20 19 Unknown [facility] (14 sources) Kuetkkubvwjfg-Qe-Fc -Apap Propensity to adverse reactions 11-21-19 [facility] (13 sources) Ocdslvp-Ctk-Tvi Reductase Inhibitor Allergy to substance 12-01-19 Other [facility] (20 sources) HMG-CoA reductase inhibitor; Translations: [JPRHRWB-KCL-TMT REDUCTASE INHIBITORS] Drug Allergy 02-01-20 Unknown [facility] (20 sources) empagliflozin; Translations: [EMPAGLIFLOZIN] Drug Allergy 10-26-19 Unknown [facility] (1 source) Amoxicillin Drug Allergy 02-01-20 [facility] Rep[facility] (1 source) cefprozil Drug Allergy 02-01-20 25 [facility] (1 source) Clavulanate Drug Allergy 02-01-20 [facility] (1 source) Dextromethorphan Drug Allergy 02-01-20 25 [facility] (1 source) Doxycycline Drug Allergy 02-01-20 25 [facility] (1 source) Doxylamine Drug Allergy 02-01-20 25 [facility] (1 source) empagliflozin Drug Allergy 02-01-20 25 [facility] (1 source) Erythromycin Drug Allergy 02-01-20 25 [facility] (1 source) gatifloxacin Drug Allergy 02-01-20 [facility] (1 source) Metoclopramide Drug Allergy 02-01-20 [facility] (1 source) Morphine Drug Allergy 02-01-20 25 [facility] (1 source) Pseudoephedrine Drug Allergy 02-01-20 [facility] (1 source) Sulfamethoxazole Drug Allergy 02-01-20 25 [facility] (1 source) Trimethoprim Drug Allergy 02-01-20 25 [facility] Rep[facility] Medications Current Medications Medication Drug Class(es) [...] 12:00am Start: 05-18-2018 take 1 capsule by [facility] once daily Cetirizine (Zyrtec) 10 mg capsule Active 10 MG PO DAILY May 18, 2018 12:00am Start: 05-18-2018 Cetirizine (Zy rtec) 10 mg capsule Active PO May 17, 2018 11:00pm Start: 04-01-2017 ZYRTEC ALLERGY 10 MG CAPS use as directed CETIRIZINE HCL [id number] Chanda Sanz KILN FIREMAN Start: 04-01-2017 ZYRTEC ALLERGY 10 MG CAPS use as directed CETIRIZINE HCL [id number] Chanda Sanz KILN FIREMAN take 1 tablet by once daily cetirizine HCl (ZYRTEC ORAL) Take 1 tablet by mouth once daily. Active cetirizine HCl ( ZYRTEC ORAL) Take by mouth. Active cetirizine HCl ( ZYRTEC ORAL) Take by mouth. 0 Active Comment on above: Take by mouth. ciprofloxacin 500 mg oral tablet (20 sources) Quinolone Antimicrobial Start: 09-29-19 End: 10-08-19 25 take 1 tablet by mouth twice daily [...] Start: 09-01-2023 take 1 tablet by [facility] two times weekly fluconazole (DIFLUCAN) 150 mg [...] on above: Take 2 tablets by [facility] once daily for 14 days. Take 1 tablet by [facility] once daily for 1 day. [facility] furosemide 40 mg [...] tablet 3 01/24/2024 Active Start: 07-30-2022 End: 01-25-2023 take 1 tablet by mouth [...] One tablet by mouth daily HYDROXYZINE PAMOATE [id number] Chanda Sanz NP Start: 01-31-2017 End: 05-22-2019 [...] topical cream (20 sources) Azole Antifungal Start: ketoconazole (NIZORAL) 2 % cream Apply to [...] mouth. magnesium oxide 500 mg oral tablet (10 sources) Start: 01-29-2025 take 1 tablet by [...] morning and one before bed METFORMIN HCL [id number] Chanda Snaz NP Start: 05-21-2016 End: 05-22-2019 take 1 tablet [...] with meals. Take 2 tablets by mo [facility] twice daily with meals. Take 2 tablets by mo [facility] two times a day with meals. methylcellulose 500 mg oral tablet (20 sources) Start: 05-18-20 18 take 1 tablet by mouth once Methylcellulose [...] {tbl} PO DAILY January 17, 2025 12:00am multivitamin,zw-godu-yjzd rals tablet (20 sources) Start: 05-18-2018 take 1 tablet by mouth once daily multivitamin,tx-iron-min erals tablet Active 1 TABLET PO DAILY May 18, 2018 9:53am Start: 05-18-2018 take 1 tablet by [facility] once daily multivitamin,ew-kkqc-bpkjbcyv tablet Act luis 1 TABLET PO DAILY May 18, 2018 12:00am Start: 05-18-2018 take 1 tablet by [facility] once daily multivitamin,bw-zivh-iqlcyqcf tablet Act luis 1 TABLET PO DAILY [...] Comment on above: Take 1 capsule by [facility] twice daily with meals for 7 days. nystatin 100 unt/mg topical powder (20 sources) Polyene Antifungal Start: 09-17-2023 NYSTOP powder APPLY TO THE AFFECTED AREA(S) THREE TIMES DAILY 10/28/2023 Active Start: 09-17-2023 End: 09-18-2024 Nystatin (Nystop) 100,000 un it/gram powder Discontinued 1 NMA TOPICAL THREE TIMES A DAY 2024 10:30am August 29, 2024 10:14am Start: 12-10-2022 End: 12-10-2023 nystatin (Mycostatin) 963387 UNIT/GM powder Apply to affected area 3 [...] once daily. Take 1 capsule by mo [facility] once daily. Take by mouth. Take 1 capsule by mo [facility] twice daily. ondansetron 4 mg oral tablet (3 sources) Serotonin-3 Receptor Antagonist Start: End: take 2 tablets by mouth every [...] Peroxisome Proliferator Receptor gamma Agonist, Thiazolidinedione Start: End: take 1 tablet by mouth once [...] mouth [facility] daily. [facility] Take by mouth. Take 45 mg by mouth once daily. polyethylene glycol 3350 21187 mg powder for oral solution (9 sources) Osmotic Laxative Start: 5 End: polyethylene glycol 3350 17 gram packet Take 1 Packet by mouth once daily. Dissolve dose in 4 - 8 ounces of liquid and take as directed. 30 Packet 09/30/2024 10/30/2024 Active polyethylene glycol 3350 386294 mg / potassium chloride 2970 mg / sodium bicarbonate 6740 mg / sodium chloride 5860 mg / sodium sulfate 90230 mg powder for oral solution (1 source) [...] by [facility] daily at bedtime. sennosides, detention 8.6 mg oral tablet (9 sources) Start: [...] mouth. vitamin b12 1 mg/ml injectable solution (16 sources) Vitamin B12 Start: 12-26-2024 inject 1 [...] 28, 2024 1:28pm take 1 tablet by [facility] th every eight hours as needed HYDROcodone-acetaminophen [...] MCG/ACT AERO use as directed BUDESONIDE-FORMOTEROL FUMARATE [id number] Chanda Sanz KILN FIREMAN Start: 04-01-2017 SYMBICORT 160- 4.5 MCG/ACT AERO use as directed BUDESONIDE-FORMOTEROL FUMARATE [id number] Chanda Sanz KILN FIREMAN Start: 05-21-2016 End: 08-29-2024 Budesonide-Formoterol 1 INHA [...] tablet by mouth daily CALCIUM CARBONATE-VITAMIN D [id number] Chanda Sanz NP Calcium Carbonate / vitamin [...] 11:17am take 45 minutes prior to MRI [place] 4-Hce-Zqs-Fish Oil (15 sources) Start: 03-11-2023 End: 01-11-2024 [place] 9-Kgh-Lyp-Fish Oil (Fi sh Oil) 300-1,000 mg capsule Discontinued 1 NMA PO DAILY March 11, 2023 12:00am January 11, 2024 8:33am Start: 03-11-2023 End: 01-11-2024 [place] 3-Uwy-Kmd-Fish Oil (Fi sh Oil) 300-1,000 mg capsule Discontinued 1 NMA PO DAILY March 10, 2023 11:00pm January 11, 2024 7:33am Start: 03-11-2023 take 300-1000 mg by mouth once daily [place] 2-Obq-Nui-Fish Oil (Fish Oil) 300-1,000 mg capsule Active 1 CAP PO DAILY March 10, 2023 11:00pm Start: 03-11-2023 take 300-1000 mg by mouth once daily [place] 6-Zxf-Sbx-Fish Oil (Fish Oil) 300-1,000 mg capsule Active [...] TWICE DAILY NEEDED as needed for Constipation 10 January 27, 2024 12:00am August 29, 2024 10:14am [...] [facility] th daily with breakfast. estrogens, conjugated (detention) 0.625 mg/ml vaginal cream (20 sources) Estrogen [...] / neomycin 3.5 mg/ml / polymyxin b 17788 unt/ml otic suspension (20 sources) Aminoglycoside Antibacterial, Polymyxin-class Antibacterial, Corticosteroid Start : 04-14 End: 08-21 ypiukgzg-focwnzniv-qdyfa cortisone (CORTISPORIN) 3.5-10,000-1 mg/mL-unit/mL-% otic suspension Use [...] Start: 09-08-2022 take 1 capsule by mo [facility] once daily as needed Melatonin 5 MG [...] One tablet by mouth daily MULTIPLE VITAMINS-MINERALS [id number] Chanda S [place] KILN FIREMAN MULTIPLE VITAMINS-MINERALS (2 sources) Start: 04-01-2017 take 1 tablet by mouth once daily CENTRUM SILVER 50+WOMEN TABS One tablet by mouth daily MULTIPLE VITAMINS-MINERALS [id number] Chanda S Yvon KILN FIREMAN multivitamin tablet (20 sources) Start: 08-16-1969 End: 08-21-2024 multivitamin tablet Take by mouth. 08/16/1969 08/21/2024 Discontinued Start: 08-16-1969 multivitamin t ablet Take by mouth. 08/16/1969 Active Start: 08-16-1969 multivitamin t ablet Take by mouth. 0 08/16/1969 Active Comment on above: Take by mouth. Multivitamin,Tx-Iron-Min erals (Complete Multivitamin) tablet (5 sources) Start: 05-18-2018 End: 01-11-2024 Multivitamin,Ar-Lwpw-Pzngxfz s (Complete Multivitamin) tablet Discontinued 1 {tbl} PO DAILY May 18, 2018 12:00am January 11, 2024 8:32am Start: 05-18-2018 End: 01-11-2024 Multivitamin,Xn-Hday-Wqeaugs s (Complete Multivitamin) tablet Discontinued 1 {tbl} PO DAILY May 17, 2018 11:00pm January 11, 2024 7:32am mupirocin 0.02 mg/mg topical ointment (10 sources) RNA Synthetase Inhibitor Antibacterial Start: 11-19-2022 mupirocin (Bactr oban) 2 % ointment Apply topically See administration instructions for 2 doses. Apply to inside of nostrils night before surgery and AM of surgery. 1 Tube 0 11/19/2022 Suspended Nqpi-Qracw0-Foopccz n Sod-Aloe (Nasogel) 0.9 % gel (9 sources) Start: 09-17-2023 End: 10-12-2023 Egbn-Pqcpi5-Dbmxyshd Sod-Aloe (Nasogel) 0.9 % gel Discontinued NMA INTRANASAL September 17, 2023 1:00am October 12, 2023 2:36pm Start: 09-17-2023 End: 10-12-2023 Jxqj-Dsoqr4-Zsietdja Sod-Parag e (Nasogel) 0.9 % gel Discontinued NMA INTRANASAL September 17, 2023 12:00am October 12, 2023 1:36pm Start: 09-17-2023 End: 10-12-2023 Rgjo-Duesi2-Ljepbpxx Sod-Parag e (Nasogel) 0.9 % gel Discontinued EACH INTRANASAL September 17, 2023 1:00am October 12, 2023 2:36pm Start: 09-17-2023 End: 10-12-2023 Yjgz-Whsvp1-Lvvdgcvk Sod-Parag e (Nasogel) 0.9 % gel Discontinued EACH INTRANASAL September 17, 2023 12:00am October 12, 2023 1:36pm Start: 09-17-2023 Pryk-Aassb6-Ji aluron Sod-Aloe (Nasogel) 0.9 % gel Active [...] MG immediate release tablet Indications: CAD in redding artery Take 1 tablet (5 mg) by [...] TIMES A DAY as needed for pain 6 October 27th, 2021 12:00am November 04, 2022 9:29am Start: [...] 90 mg oral tablet (20 sources) Start: End: take 1 tablet by mouth twice daily Ticagrelor (Brilinta) 90 mg tablet Discontinued 90 mg PO TWICE A DAY January 27, 2024 5:48pm February 23, 2024 12:56pm tiZANidine 2 mg oral capsule (20 sources) Central alpha-2 Adrenergic Agonist Start: End: take 1 capsule by mouth every [...] above: first abnormal pap e antonella, neg colp(2017). 2019 ASCUS, +HPV. Repeat pap/HPV 2020 LGSIL. [...] Coronary arteriosclerosis; Translations: [Atherosclerotic heart disease of redding coronary artery without angina pectoris] Onset: 11-18-2022 [...] Onset: 11-20-2024 Episodic Deficiency and other anemia (1 [...] Translations: [Post-op] Onset: 12-10-2022 Unclassified (1 source) Chronic bilateral low back pain without sciatica; Translations: [Chronic bilateral low back pain without sciatica] Onset: 09-25-2024 Unclassified (1 source) Low back pain, unspecified; Translations: [Low back pain, unspecified] Onset: 12-25-2024 Past or Other Problems Problem Classification Problem [...] Onset: 07-26-2024 Episodic Deficiency and other anemia (3 sources) [...] Test Name Value Interpretation Reference Range Facility Bedside Glucoseon 01-31-2025 FINGERSTICK GLU 155 mg/dL High 74-106 [facility] Comment on above: Result Comment: ZHANG CARCAMO OF PATIENT CARE PER NURSING PROTOCOL Performed By: #### L 501.080 #### [facility] Laboratory [address] [place] [address]. [place], [place], [address] Magnesium SerPl-mCncon 01-27 Magnesium [Mass/Vol] 1.3 mg/dL Low 1.7-2.3 [facility] Comment on above: Order Comment: Speci men Type: BLOOD SPECIMENOrdering Facility: [facility] Address: [address] [place] [address] Performed By: #### 1 9123-9 ####[facility] LABCLIA [id number] [place] [address] [place] Orthopedic Visit Reporton Orthopedic Visit Report [facility] [address] [place], [place] [address] OFFICE VISIT Date of Service: 01/26/25 MR#: [id number] Acct: [id number] Name: JANESSA BARON Rep #: [id number] : 1950 Provider: Dr. Dominic Issa MD Age/Sex: 74/F Location: [facility] Status: Signed Intake Vital Signs 12/25/24 15:40 [...] you fallen in the past year?: No [facility] Medical History Sepsis Post-menopausal Depression Walker as [...] knee surger (more content not included)... Normal [facility] CNOVon 01-24-2025 CNOV Office Visit (FAMMAS ) ----- JANESSA BARON ([id number]) 1950 F Date Time Provider Department 01/24/25 [...] L4-L5 on 01-31-2025. Physician performing procedure is [facility]. Magnesium low at 0.9 per labs completed 01-22-2025 by surgeon Spring Shipley LPN January 24, 2025 2:03 PM Kali Bacon MD 01/24/2025 2:53 PM Signed Subjective Janessa Bravo Loraine is a 74-year-old female with a history of DM, presenting for follow-up on recent lab results and EKG findings. EKG Abnormalities: - Recent EKG showed an inferior myocardial infarction, age undetermined. - Previous EKG in September also indicated an inferior infarct. - Denies chest pain, dyspnea, or neurological symptoms. - No known history of NM. - Followed by cardiology; last visit was [...] Hives Dextro (more content not included)... Normal [facility] Hepatitis A AB, Totalon 06- HEPATITIS A,TOT Negative Normal Negative [facility] Comment on above: Result Comment: Comm ent: The HAV total antibody assay detects both IgG and IgM but does not differentiate between them. A negative result suggests susceptibility to infection. A positive result could be due to vaccination, previously resolved infection or active infection. Testing for HAV IgM should be performed if active HAV infection is suspected. [facility] offers profiles that will automatically reflex positive HAV total antibody results to IgM (e.g., panel #[id number] HAV Antibody w/ Rfx). Performed at: [address] [id number] [place] Worker: Guero Dawson PhD, Phone: [phone] Performed By: #### L 907.6038 #### [facility] Laboratory [facility] [address] [place], [place], [address] MRSA/SAID NASAL SCREENon MRSA+SAID SCRN Reason for Exam: pre op MRSA MRSA Negative S. AUREUS S. aureus Negative Normal [facility] Comment on above: Performed By: #### L 100.0100 #### [facility] Laboratory [address] [place], [address] 12 Lead EKGon 01-22-2025 12 Lead EKG [facility] Cardiovascular Services [address] [facility] [place] [address] 12 Lead EKG 01/22/25 0753 MR#: [id number] Acct: [id number] Name: JANESSA BARON Rep #: [id number] : 1950 74 From: Isai Fairbanks MD Attending Dr: Dr. Dominic Issa MD Status: PRE IN Ordering Dr: Dominic Issa MD Date: 01/22/25 Location: [facility] Sex: F C Admitted: Test Reason : [...] now Present Confirmed by Isai Fairbanks ([id number]), scientific publications editor SHAILESH MUNOZ ([id number]) on 01/22/2025 10:43:40 AM Referred By: Dominic Issa Confirmed By: Isai Fairbanks 01/22/25 1043 Date Isai Fairbanks MD CC: Dr. Dominic Issa MD; Dr. Kali Bacon MD Signed Normal [facility] Basic Metabolic Profile (BMP )on 01-22-2025 BUN/CRE 18.6 RATIO Normal 10-20 [facility] Comment on above: Performed By: #### L 100.0100 #### [facility] Laboratory [address] [place], [address] Calcium [Mass/Vol] 9.2 mg/dL Normal 7.6-11.0 [facility] Comment on above: Performed By: #### L 100.0100 #### [facility] Laboratory [address] [place], [address] Chloride [Moles/Vol] 98 mmol/L Normal 98-108 [facility] Comment on above: Performed By: #### L 100.0100 #### [facility] Laboratory [address] [place], [address] CO2 [Moles/Vol] 25.4 mmol/L Normal 21.0-32.0 [facility] Comment on above: Performed By: #### L 100.0100 #### [facility] Laboratory [address] [place], [address] Creatinine [Mass/Vol] 0.77 mg/dL Normal 0.70-1.20 [facility] Comment on above: Performed By: #### L 100.0100 #### [facility] Laboratory [address] [place], [address] GAP 16 High 5-15 [facility] Comment on above: Performed By: #### L 100.0100 #### [facility] Laboratory [address] [place], [address] GFR/1.73 sq M.predicted among non-blacks MDRD (S/P/Bld) [Vol rate/Area] 81 mL/min/{1.73_m2} Normal >60 [facility] Comment on above: Result Comment: mL/m in/1.73m2 CKD-EPI Creatinine Equation (2020) Performed By: #### L 100.0100 #### [facility] Laboratory [address] [place], [address] Glucose [Mass/Vol] 139 mg/dL High 70-99 [facility] Comment on above: Performed By: #### L 100.0100 #### [facility] Laboratory [address] [place], [address] Potassium [Moles/Vol] 3.6 mmol/L Normal 3.3-5.1 [facility] Comment on above: Performed By: #### L 100.0100 #### [facility] Laboratory [address] [place], [address] Sodium [Moles/Vol] 139 mmol/L Normal 133-145 [facility] Comment on above: Performed By: #### L 100.0100 #### [facility] Laboratory [address] [place], [address] Urea nitrogen [Mass/Vol] 14 mg/dL Normal 4-19 [facility] Comment on above: Performed By: #### L 100.0100 #### [facility] Laboratory [address] [place], [address] CBC W/Diff, Automatedon 06-0 9-2025 Absolute Lymph 2.79 X10 3/uL Normal 0.83-4.51 [facility] Comment on above: Performed By: #### L 100.0100 #### [facility] Laboratory [address] [place], [address] Absolute Neut 7.0 X10 3/uL Normal 2.0-7.7 [facility] Comment on above: Performed By: #### L 100.0100 #### [facility] Laboratory [address] [place], [address] Basophils/100 WBC (Bld) 0.3 % Normal 0-1 [facility] Comment on above: Performed By: #### L 100.0100 #### [facility] Laboratory [address] [place], [address] Eosinophils/100 WBC (Bld) 2.0 % Normal 0-5 [facility] Comment on above: Performed By: #### L 100.0100 #### [facility] Laboratory [address] [place], [address] Erythrocyte distribution width (RBC) [Ratio] 13.7 % Normal 11.6-14.6 [facility] Comment on above: Performed By: #### L 100.0100 #### [facility] Laboratory [address] [place], [address] Hematocrit (Bld) [Volume fraction] 37.9 % Normal 37-47 [facility] Comment on above: Performed By: #### L 100.0100 #### [facility] Laboratory [address] [place], [address] Hemoglobin (Bld) [Mass/Vol] 12.7 g/dL Normal 12.0-15.0 [facility] Comment on above: Performed By: #### L 100.0100 #### [facility] Laboratory [address] [place], [address] IG% 0.600 Normal 0.0-0.9 [facility] Comment on above: Result Comment: IG% - Immature Granulocytes (promyelocytes, myelocytes and metamyelocytes) > 1% indicates that a LEFT SHIFT is Present. Performed By: #### L 100.0100 #### [facility] Laboratory [address] [place], [address] Lymphocytes/100 WBC (Bld) 25.7 % Normal 19-41 [facility] Comment on above: Performed By: #### L 100.0100 #### [facility] Laboratory [address] [place], [address] MCH (RBC) [Entitic mass] 29.9 pg Normal 27.0-32.0 [facility] Comment on above: Performed By: #### L 100.0100 #### [facility] Laboratory [address] [place], [address] MCHC (RBC) [Mass/Vol] 33.5 g/dL Normal 32-36 [facility] Comment on above: Performed By: #### L 100.0100 #### [facility] Laboratory [address] [place], [address] MCV (RBC) [Entitic vol] 89.2 fL Normal 81-99 [facility] Comment on above: Performed By: #### L 100.0100 #### [facility] Laboratory [address] [place], [address] Monocytes/100 WBC (Bld) 7.3 % Normal 0-10 [facility] Comment on above: Performed By: #### L 100.0100 #### [facility] Laboratory [address] [place], [address] Neutrophils/100 WBC (Bld) 64.1 % Normal 47-70 [facility] Comment on above: Performed By: #### L 100.0100 #### [facility] Laboratory [address] [place], [address] Nucleated RBC (Bld) [#/Vol] 0 10*3/uL Normal 0-5 [facility] Comment on above: Performed By: #### L 100.0100 #### [facility] Laboratory [address] [place], [address] Platelet mean volume (Bld) [Entitic vol] 10.2 fL Normal 6.2-12.0 [facility] Comment on above: Performed By: #### L 100.0100 #### [facility] Laboratory [address] [place], [address] Platelets (Bld) [#/Vol] 276 10*3/uL Normal 150-450 [facility] Comment on above: Performed By: #### L 100.0100 #### [facility] Laboratory [address] [place], [address] RBC (Bld) [#/Vol] 4.25 10*6/uL Normal 4.2-5.4 [facility] Comment on above: Performed By: #### L 100.0100 #### [facility] Laboratory [address] [place], [address] RDW SD 44.5 fl High 35.1-43.9 [facility] Comment on above: Performed By: #### L 100.0100 #### [facility] Laboratory [address] [place], [address] WBC (Bld) [#/Vol] 10.9 10*3/uL Normal 4.4-11.0 [facility] Comment on above: Performed By: #### L 100.0100 #### [facility] Laboratory [address] [place], [address] HIVon 01-22-2025 HIV Non-Reactive Normal Nonreactive [facility] Comment on above: Result Comment: Non- Reactive Reactive Repeatedly reactive samples must be confirmed according to CDC recommended confirmatory algorithms. The subresults for either HIVAG or AHIV can be used as an aid in the selection of the confirmation algorithm for reactive samples. Send out specimens with Reactive results to [facility] for confirmation. Order the HIV antibody detection and differentiation: lc#[id number] Performed By: #### L 100.0100 #### [facility] Laboratory [address] [place], [address] Hemoglobin A1con 01-22-2025 HbA1c (Bld) [Mass fraction] 6.5 % High <=5.6 [facility] Comment on above: Result Comment: Norm al < 5.7 % Prediabetic 5.7 - 6.4 % Diabetic >or= 6.5 % Please note range changes. Performed By: #### L 100.0100 #### [facility] Laboratory [address] [place], [address] MR/PAT.ANEon 01-22-2025 MR/PAT.ANE [facility] Medical Records Department [address] [place] [address] PAT - Anesthesia 01/22/25 1329 MR#: [id number] Acct: [id number] Name: JANESSA BARON Rep #: [id number] : 1950 74 From: Guilherme Freeman MD PCP: Dr. 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 - manufacturing process technician Female Yes 01/17/25 08:53 HX of Motion [...] 12/25/24 15:40 Respiratory Assessment Respiratory Assessment - manufacturing process technician: Respiratory Tract Infection Hx - manufacturing process technician Hx Respiratory Tract Infection No 01/17/25 08:53 STOP Sleep Apnea STOP Sleep Apnea - manufacturing process technician: STOP Sleep Apnea - manufacturing process technician Hx Hypertension Yes: on meds 01/17/25 08:53 [...] Tobacco Use History Tobacco Use History - manufacturing process technician: Tobacco Use History - manufacturing process technician Tobacco Use Smoking Status Never smoker 01/17/25 08:53 Hx Tobacco Use No 01/17/25 08:53 Years Smoking Packs Smoked per Day Smoking Cessation Date was within the last 15 years Hx Smoking Cessation Date Hx Smoking Cessation Counseling Hematologic Medial History Hematologic Hx - manufacturing process 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 Specify any problems Hx of Preganancy in last 3 No 01/17/25 08:53 Months Nurse Filling Out Transfusion JZOLLBROOKE 01/17/25 08:53 Questions: Date: 01/17/25 01/17/25 08:53 Time: 08:55 01/17/25 08:53 Patient unable to answer at this time (ie. confused, unrespo /Reproduction History /Reproductive History - manufacturing process technician: /Reproductive Hx- manufacturing process technician Hx Now No 01/17/25 08:53 Gestational Age [...] allergy symp (more content not included)... Normal [facility] Magnesiumon 01-22-2025 Magnesium [Mass/Vol] 0.9 mg/dL Invalid Interpretation Code 1.5-2.2 [facility] Comment on above: Result Comment: Crit ical Result(s) Called at 0853: by: LELA LE TO OWER. ??Results read back by same. Performed By: #### L 100.0100 #### [facility] Laboratory [address] [place], [address] Type AND Screen - PAT ONLYon 01-22-2025 Ab SCREEN GEL Negative Normal [facility] Comment on above: Order Comment: Reaso n for Laboratory Test pre [id number] FUSION Performed By: #### L 100.0100 #### [facility] Laboratory [address] [place], [address] Duplex ultrasound of carotid artery reportOrdered By: Abraham Gilbert on 01-18-2025 Study report [facility] Cardiovascular Services [address] [place] [address] Carotid Duplex Ultrasound 01/16/25 0956 MR#: [id number] Acct: [id number] Name: JANESSA BARON Rep #:[id number] : 1950 74 From: Abraham Cazares Attending Dr: INDU Acuña Stat us: REG CLI Ordering Dr: Genesis Carbajal Date: Location: [facility] Sex: F C Admitted: Reason [...] the left vertebral artery. Procedure Carotid Duplex 59393. This is a Carotid Duplex examination using [...] MD ~ Date Dictated: 01/16/25955 Date Transcribed: 01/18/251040 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: Signed [facility] Work Phone: Carotid Duplex Ultrasoundon 01-16-2025 Carotid Duplex Ultrasound [facility] Cardiovascular Services [address] [place] [address] Carotid Duplex Ultrasound 01/16/25955 MR#: [id number] Acct: [id number] Name: JANESSA BARON Rep #: [id number] : 1950 74 From: Abraham Gilbert MD Attending Dr: INDU cAuña Status: REG CLI Ordering Dr: Genesis Carbajal [...] the left vertebral artery. Procedure Carotid Duplex 38155. This is a Carotid Duplex examination using B-mode, color flow and specral Doppler. Exam performed in department. VL/Carotid Duplex Ultrasound Interpretation Summary Moderate (50-69%) stenosis right extracranial internal carotid. Mild (<70%) stenosis left extracranial internal carotid. Patent and antegrade vertebrals bilaterally. ___ Ordering Physician: Genesis Carbajal Referring Physician: Kali Bacon Performed By: Theresa Burch RVT 01/18/25 104 Date Abraham Gilbert MD CC: INDU Acuña; Dr. Kali Bacon MD Date Dictated: 01/16/2556 Date Transcribed: 01/18/25 1041 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: Signed [facility] Yadiel 12-26-2024 CNPN Telephone (FAMPLA) ----- LORAINEJANESSA ([id number]) 1950 F Date Time Provider Department 12/26/24 [facility] During your visit today, we recorded the [...] Signed Calcium plus vitamin D is an riqv-vqr-mjtuzgw medication. Spring Shipley LPN 12/29/2024 11:34 AM [...] REGLAN (METOCLOPRAMIDE HCL) 04/27/2018 5 - Intolerance YEZVIXH-GUQ-JFT REDUCTASE INHIBIT*01/31/2017 16 - Unknown Comments: Other [...] Dose once daily. - blood sugar diagnostic (ONETOUCH [...] carb/aluminum hydrox/algin (more content not included)... Normal [facility] L/S Spine Min 4 Viewson 05-2024 L/S Spine Min 4 Views [facility] Imaging Services [address] [place] [address] L/S Spine Min 4 Views MR#: [id number] Acct: [id number] Name: JANESSA BARON Rep #: [id number] : 1950 F 74 From: Rainer Campuzano MD PCP: Dr. Kali Bacon MD Status: DEP AMB Study: L/S Spine Min 4 Views Date of Exam: 12/25/24 Exam# [id number] Ordering Dr: Lynne Miller PROCEDURE: L/S SPINE MIN 4 VIEWS 12/25/2024 REASON FOR EXAM: PAIN TECHNIQUE: Four views; AP, lateral, flexion-extension COMPARISON: 02/03/2024 FINDINGS: 5 zzn-nws-qfknqrn lumbar vertebral body types identified. Mild leftward [...] left pelvic tilt again seen. Reading Location: [id number] CC: INDU Mendoza; Dr. 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 Orthopedic Visit Reporton Orthopedic Visit Report [facility] [address] [place] [address] OFFICE VISIT Date of Service: 12/25/24 MR#: [id number] Acct: [id number] Name: JANESSA BARON Rep #: [id number] : 1950 Provider: Dr. Dominic Issa MD Age/Sex: 74/F Location: [facility] Status: Signed Intake Vital Signs 11/28/24 13:17 [...] tablet 50 mg PO 4X/DAY Pain 01/04/23 05/10/10 History glimepiride 4 mg tablet (Amaryl) 4 [...] ( 11/26/22) (more content not included)... Normal [facility] Cardiology Visit Reporton Cardiology Visit Report [facility] [address] [place] [address] OFFICE VISIT Date of Service: 11/28/24 MR#: [id number] Acct: [id number] Name: JANESSA BARON Rep #: [id number] : 1950 Provider: Dr. Leo Rubio MD Age/Sex: 74/F Location: [facility] Status: Signed HPI HPI History of Present Illness Details: Janessa Baron is a 74-year-old lady with a history of coronary artery disease diagnosed in October 2022. She had undergone a Heart catheterization demonstrated severe triple-vessel disease with a very calcified LAD and circumflex and a totally occluded RCA with yort-bp-ghpna collaterals with disease noted in the proximal and mid LAD and proximal circumflex. Patient was recommended for surgical consult for coronary revascularization. 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 Normal [facility] HbA1c (Bld)on 11-25-2024 Average glucose Estimated from glycated hemoglobin (Bld) [Mass/Vol] 140 mg/dL Normal [facility] Comment on above: Order Comment: Speci men Type: BLOOD SPECIMEN Ordering Facility: [facility] Address: [address] [place] [address] Result Comment: eAG: (Estimated average glucose) is a calculated value from HgbA1c and is school admissions representative of the average blood glucose level in the last 2-3 month period. Performed By: #### 2 132-9, 2284-03 #### [facility] CLIA [id number] [address] [place] [address] [place] HbA1c (Bld) [Mass fraction] 6.5 % High 4.3-5.6 [facility] Comment on above: Order Comment: Gadiel cisneros Type: BLOOD SPECIMEN Ordering Facility: [facility] Address: [address] [place] [address] Result Comment: Carlito [place] Diabetes Association guidelines indicate that patients with HgbA1c in the range 5.7-6.4% are at increased risk for development of diabetes, and intervention by lifestyle modification may be beneficial. HgbA1c greater or equal to 6.5% is considered diagnostic of diabetes. Performed By: #### 2 132-9, 2284-03 #### [facility] CLIA [id number] [address] [place] [address] [place] Yadiel 11-21-2024 [place] Telephone (ANASTACIA) ----- JANESSA BARON ([id number]) 1950 F Date Time Provider Department 11/21/24 [...] 11/07 and have been scheduled with patient. Vince Cancino Jodie 11/21/2024 12:56 PM Signed Patient called stating [...] daily. Rx sent to her pharmacy. Fanny Barorn APRN.Patito Morales LPN 11/27/2024 3:00 PM Signed Left message [...] REGLAN (METOCLOPRAMIDE HCL) 04/27/2018 5 - Intolerance VZWEACH-YWD-OAP REDUCTASE INHIBIT*01/31/2017 16 - Unknown Comments: Other reaction(s): Other TEQUIN (GATIFLOXACIN) 04/27/2018 2 - Rash DOXYCYCLINE 11/28/2018 16 - Unknown 11 - Vomiting Date Reviewed: 11/20/2024 Reviewed by: Spring Shipley LPN - Fully Assessed Reason for Visit: Patient Question [6047] Primary Visit Diagnosis:Iron deficiency anemia, unspecified iron [...] hour before (more content not included)... Normal [facility] CNOVon 11-20-2024 [facility] Office Visit (AMIRAHIDS ) ----- JANESSA BARON ([id number]) 1950 F Date Time Provider Department 11/20/24 4:10 PM KALI BACON During your visit today, [...] Kali Bacon MD 11/20/2024 4:31 PM Signed Subjective Janessa is a 74-year-old female with a history [...] scheduled for the . 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 Review of Systems GENERAL: Positive [...] Lincomycin Rash Pseudoephedrine Hives Reglan [Metoclopram* Intolerance Ezkauws-Upf-Ejt Red* Unknown Other reaction(s): Other Tequin [Gatifloxaci* [...] by mouth once (more content not included)... [facility] XR HUMERUS 2V AP/LAT RTon XR [...] no acute fractures. IMPRESSION: No acute abnormalities. 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: L[place]IS Transcribe Date/Time: Nov 20 2024 4:51P Dictated by : HAMLET ARELLANO MD This examination was interpreted and the report reviewed and electronically signed by: HAMLET ARELLANO MD on Nov 20 2024 4:52PM EST [id number] Normal [facility] XR Humerus - right AP and La teralon 11-20-2024 IMPRESSION: No acute abnormalities. 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 Transcribe Date/Time: Nov 20 2024 4:51P Dictated by : HAMLET ARELLANO MD This examination was interpreted and the report reviewed and electronically signed by: HAMLET ARELLANO MD on Nov 20 2024 4:52PM EST [facility] * * *Final Report* * * [...] is intact. There are no acute fractures. [facility] Provider, Dee Augustin - 11/20/2024 * [...] acute fractures. IMPRESSION IMPRESSION: No acute abnormalities. 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: [facility] Transcribe Date/Time: Nov 20 2024 4:51P Dictated by : HAMLET ARELLANO MD This examination was interpreted and the report reviewed and electronically signed by: HAMLET ARELLANO MD on Nov 20 2024 4:52PM EST [facility] Radiology Study observation (narrative) [facility] XR Humerus - right AP and La teralOrdered By: [facility] Provider on 11-20-2024 [facility] ANES POSTPROC EVALon 025 ANES POSTPROC EVAL HNO ID: [id number] Author: MONICA BEY MD Service: Anesthesiology Author Type: Anesthesiologist Type: Anesthesia Postprocedure Evaluation Filed: 11/15/2024 14:15 Note Text: POST ANESTHESIA EVALUATION NOTE : 1950 Procedure Summary Date: 11/15/24 Room / Location: [facility] Endoscopy Anesthesia Start: 1256 Anesthesia Stop: 1333 Procedures: EGD DIAGNOSTIC COLONOSCOPY DIAGNOSTIC Diagnosis: Iron deficiency anemia, unspecified iron deficiency anemia type Family history of colon cancer (Iron deficiency anemia) (Iron deficiency anemia) Scheduled Providers: Marce Larkin MD; Abraham Sampson APRN.IDEA WORKER; Monica Bey MD Responsible Provider: Monica Bey [...] November 15, 2024 TIME: 2:15 PM CSN: [id number] Normal [facility] ANES PRE-OPon 11-15-2024 ANES PRE-OP HNO ID: [id number] Author: MONICA BEY MD Service: Anesthesiology Author Type: Anesthesiologist Type: Anesthesia Preprocedure Evaluation Filed: 11/15/2024 12:20 Note Text: ANESTHESIOLOGY DAY OF SURGERY NOTE : 1950 Procedure Information Date/Time: 11/15/24 1330 Scheduled providers: Marce Larkin MD; Radha Banks MD; Abraham Sampson APRN.IDEA WORKER Procedures: EGD DIAGNOSTIC COLONOSCOPY DIAGNOSTIC Location: [facility] Endoscopy Estimated body mass index is [...] and consent discussed: yes. Patient / Responsible Republican agrees to proceed: yes Patient / Surrogate [...] EVERY SIX HOURS NEEDED blood sugar diagnostic (ONETOUCH ULTRA TEST) test [...] budesonide (PUL (more content not included)... Normal [facility] Colonoscopyon 11-15-2024 Colonoscopy [facility] Gastrointestinal Endoscopy Patient Name: Janessa Baron Procedure Date: 11/15/2024 12:49 PM Date of : 1950 Admit Type: Outpatient Age: 74 Room: [facility] Gender: Female Note Status: Finalized Attending MD: Marce Larkin MD, [id number] Procedure: Colonoscopy Indications: Iron deficiency anemia Providers: [...] anesthesia care under the supervision of a IDEA WORKER was determined to be medically necessary for [...] the patient. Procedure Code(s): --- Professional --- 53565, Colonoscopy, flexible; diagnostic, including collection of specimen(s) by brushing or washing, when performed (separate procedure) Diagnosis Code(s): --- Professional --- D50.9, Iron deficiency anemia, unspecified K64.8, Other hemorrhoids CPT copyright 2020 [employer]. All rights reserved. The codes documented in this report are preliminary and upon professional benefits sales consultant review may be revised to meet current compliance requirements. Attending Participation: I personally performed the entire procedure. Scope In: 1:14:00 PM Scope Out: 1:28:19 PM MD Marce Fischer MD 11/15/2024 1:37:03 PM This report has been signed electronically by Marce Larkin MD Number of Addenda: 0 Note Initiated On: 11/15/2024 12:49 PM Estimated Blood Loss: Estimated blood loss: none. Normal [facility] EGD Study observation Heather nieto 11-15-2024 [facility] Gastrointestinal Endoscopy Patient Name: Janessa Baron Procedure Date: 11/15/2024 12:49 PM Date of : 1950 Admit Type: Outpatient Age: 74 Room: [facility] Gender: Female Note Status: Finalized Attending MD: Marce Larkin MD, [id number] Procedure: Upper GI endoscopy Indications: Iron deficiency anemia Providers: Marce Larkin MD Patient Profile: Refer to note in patient chart for documentation of history and physical. Referring Physician: Halie Jin (Referring MD) Medicines: See the Anesthesia note for documentation of the administered medications Complications: No immediate complications. Requesting Provider: Procedure: Pre-Anesthesia Assessment: - Monitored anesthesia care under the supervision of a IDEA WORKER was determined to be medically necessary for [...] pathology results Procedure Code(s): --- Professional --- 34103, Esophagogastroduodenoscop y, flexible, transoral; with biopsy, single or multiple Diagnosis Code(s): --- Professional --- D50.9, Iron deficiency anemia, unspecified K31.89, Other diseases of stomach and duodenum CPT copyright 2020 [employer]. All rights reserved. The codes documented in this report are preliminary and upon professional benefits sales consultant review may be revised to meet current compliance requirements. Attending Participation: I personally performed the entire procedure. Scope In: 1:01:27 PM Scope Out: 1:06:46 PM MD Marce Fischer MD 11/15/2024 1:11:02 PM This report has been signed electronically by Marce Larkin MD Number of Addenda: 0 Note Initiated On: 11/15/2024 12:49 PM Estimated Blood Loss: Estimated blood loss was minimal. PROVATION [facility] Radiology Study observation (narrative) [facility] Flexible sigmoidoscopy study on 11-15-2024 [facility] Gastrointestinal Endoscopy Patient Name: Janessa Baron Procedure Date: 11/15/2024 12:49 PM Date of : 1950 Admit Type: Outpatient Age: 74 Room: [facility] Gender: Female Note Status: Finalized Attending MD: Marce Larkin MD, [id number] Procedure: Colonoscopy Indications: Iron deficiency anemia Providers: [...] anesthesia care under the supervision of a IDEA WORKER was determined to be medically necessary for [...] the patient. Procedure Code(s): --- Professional --- 13813, Colonoscopy, flexible; diagnostic, including collection of specimen(s) by brushing or washing, when performed (separate procedure) Diagnosis Code(s): --- Professional --- D50.9, Iron deficiency anemia, unspecified K64.8, Other hemorrhoids CPT copyright 2020 [employer]. All rights reserved. The codes documented in this report are preliminary and upon professional benefits sales consultant review may be revised to meet current compliance requirements. Attending Participation: I personally performed the entire procedure. Scope In: 1:14:00 PM Scope Out: 1:28:19 PM MD Marce Fischer MD 11/15/2024 1:37:03 PM This report has been signed electronically by Marce Larkin MD Number of Addenda: 0 Note Initiated On: 11/15/2024 12:49 PM Estimated Blood Loss: Estimated blood loss: none. PROVATION [facility] Radiology Study observation (narrative) [facility] GLUCOSE, BLOOD (POC)on 11-15 Glucose [Mass/Vol] 133 mg/dL Abnormal 74 - 99 mg/dL [facility] Comment on above: Location:[address], [address] The Accu-Chek Inform II glucose meter has [...] Interpretation and review of laboratory results Abnormal [facility] HISTORY PHYSICALon HISTORY PHYSICAL HNO ID: [id number] Author: MARCE LARKIN MD Service: General Surgery Author Type: Physician Type: H&P Filed: 11/15/2024 11:34 Note Text: HISTORY AND PHYSICAL Janessa Baron : 1950 REFERRING PHYSICIAN: Fanny Barron [address] [facility] [address] CHIEF COMPLAINT: Patient presents with: colon consult [...] colonoscopy was 04/[address] Edgar at [facility]. Sedation:Fentanyl 100 micrograms IV, Midazolam 5 mg IV Impression: - The entire examined colon is normal. Biopsied. Last EGD was at [facility] with Dr. Arredondo 01/2023. Sedation: MAC Impression: [...] Dextromethorphan, Doxylamine, Erythro (more content not included)... [facility] Pathology biopsy report Lorenzo (Tiss)on 11-15-2024 AP DISCLAIMER [facility] Comment on above: Order Comment: Speci men Type: TISSUE SPECIMEN Ordering Facility: [facility] Address: [address] [place] [address] Result Comment: Zina taveras Developed Test (LDT) Disclaimer: Performance characteristics of immunohistochemical, immunofluorescent, and chromogenic in-situ hybridization tests have been determined by the performing laboratory within [facility]'s [facility] Pathology and Laboratory Medicine Department ([facility], [facility], [facility], [facility], [facility], [facility], or [facility]) in a manner consistent with CLIA [...] appropriately. Performed By: #### 6 6121-5 #### [facility] CLIA [id number] [address] [place] [address] [place] [facility] CLIA [id number] [address] [place] [address] [place] CASE REPORT [facility] Comment on above: Order Comment: Speci men Type: TISSUE SPECIMEN Ordering Facility: [facility] Address: [address] [place] [address] Result Comment: [facility] Pathology Report Case: [id number] Authorizing Provider: Marce Larkin MD Collected: 11/15/2024 01:05 PM Ordering Location: [facility] Endoscopy Received: 11/15/2024 03:05 PM Pathologist: Barrington Ramírez MD Specimen: Stomach, Antrum, Biopsy Performed By: #### 6 6121-5 #### [facility] CLIA [id number] [place] [address] LAB CLIA [id number] [address] [place] [address] OF [place] FINAL DIAGNOSIS Normal [facility] Comment on above: Order Comment: Speci men Type: TISSUE SPECIMEN Ordering Facility: [facility] Address: [address] [place] [address] Result Comment: A. S tomach, antrum, biopsy: - Gastric oxyntic type mucosa with no pathologic diagnostic abnormality. at 1114 EDT Performed By: #### 6 6121-5 #### [facility] CLIA [id number] [place] [address] LAB CLIA [id number] [address] [place] [address] [place] FINAL PERFORMING LAB Normal [place] Comment on above: Order Comment: Speci men Type: TISSUE SPECIMEN Ordering Facility: [facility] Address: [address] [place] [address] Result Comment: Diag nostic interpretation performed at: [facility], [place] [address] CLIA# [id number] Straight Line Press Setter: Barrington Ramírez MD Performed By: #### 6 6121-5 #### [facility] CLIA [id number] [address] STATES [place] [facility] CLIA [id number] [address] [place] [address] GROSS DESCRIPTION Normal [facility] Comment on above: Order Comment: Speci men Type: TISSUE SPECIMEN Ordering Facility: [facility] Address: [address] [place] [address] Result Comment: Sina del valle, Antrum, Biopsy Received in formalin is one piece of lewis-pink, soft tissue measuring 0.2 x 0.2 x 0.2 cm. Totally submitted in one cassette. K November 15, 2024 7:11 PM Gross examination performed at [facility], [address] [place] [address] Performed By: #### 6 6121-5 #### [facility] CLIA [id number] [address] [place] [address] STATES OF [facility] CLIA [id number] [address] [place] [address] [place] Upper GI endoscopyon 025 Upper GI endoscopy [facility] Gastrointestinal Endoscopy Patient Name: Janessa Baron Procedure Date: 11/15/2024 12:49 PM Date of : 1950 Admit Type: Outpatient Age: 74 Room: [facility] Gender: Female Note Status: Finalized Attending MD: Marce Larkin MD, [id number] Procedure: Upper GI endoscopy Indications: Iron deficiency anemia Providers: Marce Larkin MD Patient Profile: Refer to note in patient chart for documentation of history and physical. Referring Physician: Halie Jin (Referring ) Medicines: See the Anesthesia note for documentation of the administered medications Complications: No immediate complications. Requesting Provider: Procedure: Pre-Anesthesia Assessment: - Monitored anesthesia care under the supervision of a IDEA WORKER was determined to be medically necessary for [...] pathology results Procedure Code(s): --- Professional --- 14717, Esophagogastroduodenoscop y, flexible, transoral; with biopsy, single or multiple Diagnosis Code(s): --- Professional --- D50.9, Iron deficiency anemia, unspecified K31.89, Other diseases of stomach and duodenum CPT copyright 2020 [employer]. All rights reserved. The codes documented in this report are preliminary and upon professional benefits sales consultant review may be revised to meet current compliance requirements. Attending Participation: I personally performed the entire procedure. Scope In: 1:01:27 PM Scope Out: 1:06:46 PM MD Marce Fischer MD 11/15/2024 1:11:02 PM This report has been signed electronically by Marce Larkin MD Number of Addenda: 0 Note Initiated On: 11/15/2024 12:49 PM Estimated Blood Loss: Estimated blood loss was minimal. Normal [facility] 11-08-2024 [facility] Telephone (MiprotoS) ----- JANESSA BARON ([id number]) 1950 F Date Time Provider Department 11/08/24 [...] starts fasting. Okay to take metformin and Ramos Miller LPN 11/09/2024 11:51 AM Signed Patient notified [...] REGLAN (METOCLOPRAMIDE HCL) 04/27/2018 5 - Intolerance NJGTHID-KXN-TUS REDUCTASE INHIBIT*01/31/2017 16 - Unknown Comments: Other reaction(s): Other TEQUIN (GATIFLOXACIN) 04/27/2018 2 - Rash DOXYCYCLINE 11/28/2018 16 - Unknown 11 - Vomiting Date Reviewed: 11/07/2024 Reviewed by: Fanny Barron - Fully Assessed Reason for Visit: Patient Question [4776] Cmt: DM meds with COLONOSCOPY Prescriptions as [...] day with meals. - blood sugar diagnostic (WaveTech EnginesTOUCH ULTRA TEST) test strip Monitor blood sugar [...] [I10] 03/01/2017 Hypercholes (more content not included)... [facility] CNOVSPon 11-06-2024 [facility] Visit (SP) Office ([place]ST[place]) ----- JANESSA BARON ([id number]) 1950 F Date Time Provider Department 11/06/24 [...] She was taking her to appt at [facility] and collapse outside hospital. Spent 5 [...] Take 1 (more content not included)... Normal [facility] CBC W Auto Differential pane l (Bld)on 11-04-2024 Basophils (Bld) [#/Vol] 0.04 10*3/uL Normal <0.11 [facility] Comment on above: Order Comment: Speci men Type: BLOOD SPECIMEN Ordering Facility: [facility] Address: [address] [place] [address] Performed By: #### 2 132-9, 8 #### [facility] CLIA [id number] [address] [place] [address] [place] Basophils/100 WBC (Bld) 0.3 % Normal [facility] Comment on above: Order Comment: Speci men Type: BLOOD SPECIMEN Ordering Facility: [facility] Address: [address] [place] [address] Performed By: #### 2 132-9, 8 #### [facility] CLIA [id number] [address] [place] [address] [place] Differential cell count method Nom (Bld) Auto Normal [facility] Comment on above: Order Comment: Speci men Type: BLOOD SPECIMEN Ordering Facility: [facility] Address: [address] [place] [address] Performed By: #### 2 132-9, 8 #### [facility] CLIA [id number] [address] [place] [address] [place] Eosinophils (Bld) [#/Vol] 0.16 10*3/uL Normal <0.46 [facility] Comment on above: Order Comment: Speci men Type: BLOOD SPECIMEN Ordering Facility: [facility] Address: [address] [place] [address] Performed By: #### 2 132-9, 8 #### [facility] CLIA [id number] [address] [place] [address] [place] Eosinophils/100 WBC (Bld) 1.4 % Normal [facility] Comment on above: Order Comment: Speci men Type: BLOOD SPECIMEN Ordering Facility: [facility] Address: [address] [place] [address] Performed By: #### 2 132-9, 8 #### [facility] CLIA [id number] [address] [place] [address] [place] Erythrocyte distribution width (RBC) [Ratio] 22.8 % High 11.5-15.0 [facility] Comment on above: Order Comment: Speci men Type: BLOOD SPECIMEN Ordering Facility: [facility] Address: [address] [place] [address] Performed By: #### 2 132-9, 8 #### [facility] CLIA [id number] [address] [place] [address] [place] Hematocrit (Bld) [Volume fraction] 40.0 % Normal 36.0-46.0 [facility] Comment on above: Order Comment: Speci men Type: BLOOD SPECIMEN Ordering Facility: [facility] Address: [address] [place] [address] Performed By: #### 2 132-9, 8 #### [facility] CLIA [id number] [address] [place] [address] [place] Hemoglobin (Bld) [Mass/Vol] 12.8 g/dL Normal 11.5-15.5 [facility] Comment on above: Order Comment: Speci men Type: BLOOD SPECIMEN Ordering Facility: [facility] Address: [address] [place] [address] Performed By: #### 2 132-9, 8 #### [facility] CLIA [id number] [address] [place] [address] [place] Immature granulocytes (Bld) [#/Vol] 0.05 10*3/uL Normal <0.10 [facility] Comment on above: Order Comment: Speci men Type: BLOOD SPECIMEN Ordering Facility: [facility] Address: [address] [place] [address] Performed By: #### 2 132-9, 8 #### [facility] CLIA [id number] [address] [place] [address] [place] Immature granulocytes/100 WBC (Bld) 0.4 % Normal [facility] Comment on above: Order Comment: Speci men Type: BLOOD SPECIMEN Ordering Facility: [facility] Address: [address] [place] [address] Performed By: #### 2 132-9, 8 #### [facility] CLIA [id number] [address] [place] [address] [place] Lymphocytes (Bld) [#/Vol] 3.45 10*3/uL Normal 1.00-4.00 [facility] Comment on above: Order Comment: Speci men Type: BLOOD SPECIMEN Ordering Facility: [facility] Address: [address] [place] [address] Performed By: #### 2 132-9, 8 #### [facility] CLIA [id number] [address] [place] [address] [place] Lymphocytes/100 WBC (Bld) 30.2 % Normal [facility] Comment on above: Order Comment: Speci men Type: BLOOD SPECIMEN Ordering Facility: [facility] Address: [address] [place] [address] Performed By: #### 2 132-9, 8 #### [facility] CLIA [id number] [address] [place] [address] [place] MCH (RBC) [Entitic mass] 26.4 pg Normal 26.0-34.0 [facility] Comment on above: Order Comment: Speci men Type: BLOOD SPECIMEN Ordering Facility: [facility] Address: [address] [place] [address] Performed By: #### 2 132-9, 8 #### [facility] CLIA [id number] [address] [place] [address] [place] MCHC (RBC) [Mass/Vol] 32.0 g/dL Normal 30.5-36.0 [facility] Comment on above: Order Comment: Speci men Type: BLOOD SPECIMEN Ordering Facility: [facility] Address: [address] [place] [address] Performed By: #### 2 132-9, 2284-03 #### [facility] CLIA [id number] [address] [place] [address] [place] MCV (RBC) [Entitic vol] 82.5 fL Normal 80.0-100.0 [facility] Comment on above: Order Comment: Speci men Type: BLOOD SPECIMEN Ordering Facility: [facility] Address: [address] [place] [address] Performed By: #### 2 132-9, 2284-03 #### [facility] CLIA [id number] [address] [place] [address] [place] Monocytes (Bld) [#/Vol] 0.86 10*3/uL Normal <0.87 [facility] Comment on above: Order Comment: Speci men Type: BLOOD SPECIMEN Ordering Facility: [facility] Address: [address] [place] [address] Performed By: #### 2 132-9, 2284-03 #### [facility] CLIA [id number] [address] [place] [address] [place] Monocytes/100 WBC (Bld) 7.5 % Normal [facility] Comment on above: Order Comment: Speci men Type: BLOOD SPECIMEN Ordering Facility: [facility] Address: [address] [place] [address] Performed By: #### 2 132-9, 8 #### [facility] CLIA [id number] [address] [place] [address] [place] Neutrophils (Bld) [#/Vol] 6.87 10*3/uL Normal 1.45-7.50 [facility] Comment on above: Order Comment: Speci men Type: BLOOD SPECIMEN Ordering Facility: [facility] Address: [address] [place] [address] Performed By: #### 2 132-9, 8 #### [facility] CLIA [id number] [address] [place] [address] [place] Neutrophils/100 WBC (Bld) 60.2 % Normal [facility] Comment on above: Order Comment: Speci men Type: BLOOD SPECIMEN Ordering Facility: [facility] Address: [address] [place] [address] Performed By: #### 2 132-9, 8 #### [facility] CLIA [id number] [address] [place] [address] [place] Nucleated RBC (Bld) [#/Vol] 10*3/uL Normal <0.01 [facility] Comment on above: Order Comment: Speci men Type: BLOOD SPECIMEN Ordering Facility: [facility] Address: [address] [place] [address] Performed By: #### 2 132-9, 8 #### [facility] CLIA [id number] [address] [place] [address] [place] Nucleated RBC/100 WBC (Bld) [Ratio] 0.0 /100 WBC Normal [facility] Comment on above: Order Comment: Speci men Type: BLOOD SPECIMEN Ordering Facility: [facility] Address: [address] [place] [address] Performed By: #### 2 132-9, 8 #### [facility] CLIA [id number] [address] [place] [address] [place] Platelet mean volume (Bld) [Entitic vol] 10.4 fL Normal 9.0-12.7 [facility] Comment on above: Order Comment: Speci men Type: BLOOD SPECIMEN Ordering Facility: [facility] Address: [address] [place] [address] Performed By: #### 2 132-9, 2283-8 #### [facility] CLIA [id number] [address] [place] [address] [place] Platelets (Bld) [#/Vol] 322 10*3/uL Normal 150-400 [facility] Comment on above: Order Comment: Speci men Type: BLOOD SPECIMEN Ordering Facility: [facility] Address: [address] [place] [address] Performed By: #### 2 132-9, 2283-8 #### [facility] CLIA [id number] [address] [place] [address] [place] RBC (Bld) [#/Vol] 4.85 10*6/uL Normal 3.90-5.20 [facility] Comment on above: Order Comment: Speci men Type: BLOOD SPECIMEN Ordering Facility: [facility] Address: [address] [place] [address] Performed By: #### 2 132-9, 2283-8 #### [facility] CLIA [id number] [address] [place] [address] [place] WBC (Bld) [#/Vol] 11.43 10*3/uL High 3.70-11.00 [facility] Comment on above: Order Comment: Speci men Type: BLOOD SPECIMEN Ordering Facility: [facility] Address: [address] [place] [address] Performed By: #### 2 132-9, 2283-8 #### [facility] CLIA [id number] [address] [place] [address] [place] COPPER BLOODon 11-04-2024 Copper [Mass/Vol] 78 ug/dL Low 80-155 [facility] Comment on above: Order Comment: Speci men Type: BLOOD SPECIMEN Ordering Facility: [facility] Address: [address] [place] [address] Result Comment: This test was developed, and its performance characteristics determined by the [facility] Department of Pathology and Laboratory Medicine. It has not been cleared or approved by the FDA. The [facility] Department of Pathology and Laboratory Medicine is regulated under CLIA as qualified to perform high-complexity testing. This test is used for clinical purposes. It should not be regarded as investigational or for research. Performed By: #### 5 763-8, COPPER #### [facility] CLIA [id number] [address] [place] [address] [place] Comprehensive metabolic 2000 panelon 11-04-2024 Albumin [Mass/Vol] 4.4 g/dL Normal 3.9-4.9 [facility] Comment on above: Order Comment: Speci men Type: BLOOD SPECIMEN Ordering Facility: [facility] Address: [address] [place] [address] Performed By: #### 2 132-9, 2283-8 #### [facility] CLIA [id number] [address] [place], [place] [address] [place] ALP [Catalytic activity/Vol] 72 U/L Normal 34-123 [facility] Comment on above: Order Comment: Speci men Type: BLOOD SPECIMEN Ordering Facility: [facility] Address: [address] [place] [address] Performed By: #### 2 132-9, 2283-8 #### [facility] CLIA [id number] [address] [place] [address] [place] ALT [Catalytic activity/Vol] 13 U/L Normal 7-38 [facility] Comment on above: Order Comment: Speci men Type: BLOOD SPECIMEN Ordering Facility: [facility] Address: [address] [place] [address] Performed By: #### 2 132-9, 2283-8 #### [facility] CLIA [id number] [address] [place], [place] [address] [place] Anion gap [Moles/Vol] 15 mmol/L Normal 8-15 [facility] Comment on above: Order Comment: Speci men Type: BLOOD SPECIMEN Ordering Facility: [facility] Address: [address] [place] [address] Performed By: #### 2 132-9, 8 #### [facility] CLIA [id number] [address] [place] [address] [place] AST [Catalytic activity/Vol] 14 U/L Normal 13-35 [facility] Comment on above: Order Comment: Speci men Type: BLOOD SPECIMEN Ordering Facility: [facility] Address: [address] [place] [address] Performed By: #### 2 132-9, 8 #### [facility] CLIA [id number] [address] [place] [address] [place] Bilirubin [Mass/Vol] 0.3 mg/dL Normal 0.2-1.3 [facility] Comment on above: Order Comment: Speci men Type: BLOOD SPECIMEN Ordering Facility: [facility] Address: [address] [place] [address] Performed By: #### 2 132-9, 8 #### [facility] CLIA [id number] [address] [place] [address] [place] Calcium [Mass/Vol] 9.5 mg/dL Normal 8.5-10.2 [facility] Comment on above: Order Comment: Speci men Type: BLOOD SPECIMEN Ordering Facility: [facility] Address: [address] [place] [address] Performed By: #### 2 132-9, 8 #### [facility] CLIA [id number] [address] [place] [address] [place] Chloride [Moles/Vol] 97 mmol/L Low 98-107 [facility] Comment on above: Order Comment: Speci men Type: BLOOD SPECIMEN Ordering Facility: [facility] Address: [address] [place] [address] Performed By: #### 2 132-9, 4-8 #### [facility] CLIA [id number] [address] [place] [address] [place] CO2 [Moles/Vol] 25 mmol/L Normal 22-30 [facility] Comment on above: Order Comment: Speci men Type: BLOOD SPECIMEN Ordering Facility: [facility] Address: [address] [place] [address] Performed By: #### 2 132-9, 2283-8 #### [facility] CLIA [id number] [address] [place] [address] [place] Creatinine [Mass/Vol] 0.82 mg/dL Normal 0.58-0.96 [facility] Comment on above: Order Comment: Speci men Type: BLOOD SPECIMEN Ordering Facility: [facility] Address: [address] [place] [address] Performed By: #### 2 132-9, 2283-8 #### [facility] CLIA [id number] [address] [place] [address] [place] Creatinine and Glomerular filtration rate.predicted panel (S/P/Bld) 76 mL/min/1.73m??? Normal >=60 [facility] Comment on above: Order Comment: Speci men Type: BLOOD SPECIMEN Ordering Facility: [facility] Address: [address] [place] [address] Result Comment: Shauna mated Glomerular Filtration Rate [...] Performed By: #### 2 132-9, 2284-8 #### [facility] CLIA [id number] [address] [place] [address] [place] Glucose [Mass/Vol] 143 mg/dL High 74-99 [facility] Comment on above: Order Comment: Speci men Type: BLOOD SPECIMEN Ordering Facility: [facility] Address: [address] [place] [address] Result Comment: The [place] [employer] (ADA) provides guidance for cutoff [...] Standards of Medical Care in Diabetes 2016, [place] [employer]. Diabetes Care. 2016.39(Suppl 1). Performed By: #### 2 132-9, 2284-03 #### [facility] CLIA [id number] [address] [place] [address] [place] Potassium [Moles/Vol] 3.6 mmol/L Low 3.7-5.1 [facility] Comment on above: Order Comment: Juani men Type: BLOOD SPECIMEN Ordering Facility: [facility] Address: [address] [place] [address] Performed By: #### 2 132-9, 2284-03 #### [facility] CLIA [id number] [address] [place] [address] [place] Protein [Mass/Vol] 7.4 g/dL Normal 6.3-8.0 [facility] Comment on above: Order Comment: Juani men Type: BLOOD SPECIMEN Ordering Facility: [facility] Address: [address] [place] [address] Performed By: #### 2 132-9, 2284-03 #### [facility] CLIA [id number] [address] [place], [place] [address] [place] Sodium [Moles/Vol] 137 mmol/L Normal 136-144 [facility] Comment on above: Order Comment: Speci men Type: BLOOD SPECIMEN Ordering Facility: [facility] Address: [address] [place] [address] Performed By: #### 2 132-9, 2284-8 #### [facility] CLIA [id number] [address] [place] [address] [place] Urea nitrogen [Mass/Vol] 22 mg/dL High 7-21 [facility] Comment on above: Order Comment: Speci men Type: BLOOD SPECIMEN Ordering Facility: [facility] Address: [address] [place] [address] Performed By: #### 2 132-9, 228-8 #### [facility] CLIA [id number] [address] [place] [address] [place] Ferritin SerPl-mCncon 2024 Ferritin [Mass/Vol] 131.0 ng/mL Normal 14.7-205.1 [facility] Comment on above: Order Comment: Speci men Type: BLOOD SPECIMEN Ordering Facility: [facility] Address: [address] [place] [address] Performed By: #### 2 132-9, 2284-8 #### [facility] CLIA [id number] [address] [place] [address] [place] Folate SerPl-mCncon 11-05-19 25 Folate [Mass/Vol] 20.0 ng/mL Normal >4.7 [facility] Comment on above: Order Comment: Speci men Type: BLOOD SPECIMEN Ordering Facility: [facility] Address: [address] [place] [address] Performed By: #### 2 132-9, 2284-8 #### [facility] CLIA [id number] [address] [place] [address] [place] Iron and Iron binding capaci ty panelon 11-04-2024 Iron [Mass/Vol] 57 ug/dL Normal 41-186 [facility] Comment on above: Order Comment: Speci men Type: BLOOD SPECIMEN Ordering Facility: [facility] Address: [address] [place] [address] Performed By: #### 2 132-9, 2284-8 #### [facility] CLIA [id number] [address] [place] [address] Iron binding capacity [Mass/Vol] 313 ug/dL Normal 232-386 [facility] Comment on above: Order Comment: Speci men Type: BLOOD SPECIMEN Ordering Facility: [facility] Address: [address] [place] [address] Performed By: #### 2 132-9, 2284-8 #### [facility] CLIA [id number] [address] [place] [address] Iron/TIBC [Molar ratio] 18.2 % Normal 15.0-57.0 [facility] Comment on above: Order Comment: Speci men Type: BLOOD SPECIMEN Ordering Facility: [facility] Address: [address] [place] [address] Performed By: #### 2 132-9, 2284-8 #### [facility] CLIA [id number] [address] [place] [address] [place] Methylmalonate SerPl-sCncon 11-04-2024 Methylmalonate [Moles/Vol] 0.48 umol/L High <=0.40 [facility] Comment on above: Order Comment: Speci men Type: BLOOD SPECIMEN Ordering Facility: [facility] Address: [address] [place] [address] Result Comment: This test was developed, and its performance characteristics determined by the [facility] Department of Pathology and Laboratory Medicine. It has not been cleared or approved by the FDA. The [facility] Department of Pathology and Laboratory Medicine is regulated under CLIA as qualified to perform high-complexity testing. This test is used for clinical purposes. It should not be regarded as investigational or for research. Performed By: #### 1 3964-2 #### [facility] CLIA [id number] [address] [place] [address] [place] Vit B12 SerPl-mCncon 025 Cobalamin (Vitamin B12) [Mass/Vol] pg/mL Low 232-1245 [facility] Comment on above: Order Comment: Speci amelia Type: BLOOD SPECIMEN Ordering Facility: [facility] Address: [address] [place] [address] Result Comment: Resu lt rechecked. Performed By: #### 2 132-9, 2284-8 #### [facility] CLIA [id number] [address] [place] [address] [place] [facility] Zinc [Mass/Vol] 62 ug/dL Normal 60-120 [facility] Comment on above: Order Comment: Gadiel cisneros Type: BLOOD SPECIMEN Ordering Facility: [facility] Address: [address] [place] [address] Result Comment: This test was developed, and its performance characteristics determined by the [facility] Department of Pathology and Laboratory Medicine. It has not been cleared or approved by the FDA. The [facility] Department of Pathology and Laboratory Medicine is regulated under CLIA as qualified to perform high-complexity testing. This test is used for clinical purposes. It should not be regarded as investigational or for research. Performed By: #### 5 763-8, COPPER #### [facility] CLIA [id number] [address] [place] [address] [place] L3410.9998on 10-31-2024 [facility] Misc. Normal [facility] Comment on above: Order Comment: [id number] TRAMADOL Result Comment: TEST RESULTS LIMITS Tramadol, Urine Tramadol Positive Ohgxqw=227 Tramadol Conf, MS, UR >43523 ng/mL Dtufsk=199 Tramadol detected; this finding can be consistent with use of medications that include Ultram, Topalgic, Tradol, Zydol, or generic formulations. Drugs listed are school admissions representative of common sources of the compound detected and are not intended to include all possible sources. Please Note: Drug test results should be interpreted in the context of clinical information. Patient metabolic variables, specific drug chemistry, and specimen characteristics can affect test outcome. Technical consultation is available if a test result is inconsistent with an expected outcome. Email: [email or web address] TESTING PERFORMED AT [facility]. ORIGINAL REPORT ON FILE IN LAB CONTAINS ADDITIONAL TEST SITE INFORMATION. Performed By: #### L 3410.9998 #### [facility] [address] [place], [place], [address] Urine Cultureon 10-26-2024 [facility] Culture exhibits no growth. Normal [facility] Comment on above: Performed By: #### L 100.0100 #### [facility] [address] [place], [address] Laboratory - Chemistry and C hemistry - challengeOrdered By: Monica Lomeli on 10-25-2024 Bilirubin Ql (U) Negative [facility] Glucose Ql (U) Negative [facility] Ketones Ql (U) Negative [facility] pH (U) 5.0 [pH] [facility] Specific gravity (U) [Rel density] 1.010 [facility] Urobilinogen (U) [Mass/Vol] 0.6095000 mg/dL [facility] Laboratory - Hematology and Cell countsOrdered By: Monica Lomeli on 10-25-2024 Hemoglobin Ql (U) Negative [facility] - Specimen inform ationOrdered By: Monica Lomeli on 10-25-2024 Clarity (U) Clear [facility] Color (U) Yellow [facility] Laboratory - UrinalysisOrder ed By: Monica Lomeli on 10-25-2024 Nitrite Ql (U) Negative [facility] Protein Ql (U) Negative [facility] No Panel InformationOrdered By: Monica Lomeli on 10-25-2024 Urine Leukocytes Negatve [facility] Vehicle And Equipment Cleaner Office Visit Reporton 10-25-2024 Vehicle And Equipment Cleaner Office Visit Report [facility] [address], [address] [place] [address] OFFICE VISIT Date of Service: 10/25/24 MR#: [id number] Acct: [id number] Name: JANESSA BARON Rep #: [id number] : 1950 Provider: Dr. Monica Collins DO Age/Sex: 74/F Location: [facility] Status: Signed Intake Vital Signs 09/18/24 15:32 10/25/24 08:11 10/25/24 08:12 Height 5 ft 3 in 5 ft 3 in 5 ft 3 in Weight: 195 lb 4 oz BMI 34.5 BP 163/72 H Intake Visit Reasons: vaginal itching and rash Helper Maintenance Cleaning Required: No Is patient in pain?: No [...] ml inhalation Q20M PRN shortnes s 08/29/24 10/25/24 History (2.5 mg base)/3 [...] of lumpectomy (more content not included)... Normal [facility] Urine cultureOrdered By: Gabbi Lomeli on 10-25-2024 Bacteria identified Cx Nom (U) Culture exhibits no growth. [facility] L3410.9998on 10-12-2024 [facility] Misc. COMMENT Normal . [facility] Comment on above: Order Comment: [id number] URINE TOXICOLOGY Result Comment: Test Ordered: [id number] 6+Oxycodone-Bund Amphetamines, Urine Negative ng/mL UI Reference Range: Zodbsh=3914 Amphetamine test includes Amphetamine and Methamphetamine. Barbiturate Negative ng/mL UI Reference Range: Yinbxa=791 Benzodiazepines Negative ng/mL UI Reference Range: Zpuflj=240 Cannabinoids Negative ng/mL UI Reference Range: Cutoff=20 Cocaine (Metabolite) Negative ng/mL UI Reference Range: Ljyeds=393 Opiates Negative ng/mL UI Reference Range: Wtmuqp=737 Opiate test includes Codeine, Morphine, Hydromorphone, Hydrocodone. Oxycodone/Oxymorphone, Urine Negative ng/mL UI Reference Range: Tvduxp=974 Test includes Oxycodone and Oxymorphone Effective November 13, 2024, this test will be discontinued. Please contact your [facility] school admissions representative for suggested replacement test options. Performed at: [address] [id number] Bull Wheel Worker: Kathy Appiah PhD, Phone: [phone] Performed at: [address] [id number] Bull Wheel Worker: Guero Dawson PhD, Phone: [phone] Performed By: #### L 3410.9998 #### [facility] [address] [place] [address]. [place], [place], [id number] BACTERIAL VAGINOSIS NAATon 0 10-09-2024 Lactobacillus crispatus+gasseri+gabbi senii + Gardnerella vaginalis + Atopobium vaginae rRNA CLAUDIA+probe Ql (Vag fld) Not detected Normal Not detected [facility] Comment on above: Order Comment: Speci men Type: BLOOD SPECIMEN Ordering Facility: [facility] Address: [address] [place] [address] Performed By: #### 2 132-9, 2284-8 #### [facility] CLIA [id number] [address] [place] [address] [place] [address] [place] Bacteria Ur Culton 5 Bacteria identified Cx Nom (U) ORGANISM ID: 1 <10,000 CFU/ml Normal urogenital karyna Normal [facility] Comment on above: Performed By: #### 6 30-4 ####[facility] [id number] [place] [address] [place] MADELINE/TRICHOMONAS NAATon 0 10-09-2024 C. glabrata RNA CLAUDIA+probe Ql (Vag fld) Not detected Normal Not detected [facility] Comment on above: Order Comment: Speci men Type: BLOOD SPECIMEN Ordering Facility: [facility] Address: [address] [place] [address] Performed By: #### 2 132-9, 2284-8 #### [facility] CLIA [id number] [address] [place] [address] [place] Madeline sp DNA CLAUDIA+probe Ql (Vag fld) Not detected Normal Not detected [facility] Comment on above: Order Comment: Speci men Type: BLOOD SPECIMEN Ordering Facility: [facility] Address: [address] [place] [address] Result Comment: The Madeline species group target includes C. albicans, C. tropicalis, C. parapsilosis, and C. dubliniensis. Performed By: #### 2 132-9, 4-8 #### [facility] CLIA [id number] [address] [place] [address] [place] T. vaginalis DNA CLAUDIA+probe Ql (Unsp spec) Not detected Normal Not detected [facility] Comment on above: Order Comment: Speci men Type: BLOOD SPECIMEN Ordering Facility: [facility] Address: [address] [place] [address] Performed By: #### 2 132-9, 4-8 #### [facility] CLIA [id number] [address] [place] [address] [place] CNOVon 10-09-2024 CNOV Office Visit ([facility] ) ----- JANESSA BARON ([id number]) 1950 F Date Time Provider Department 10/09/24 10:30 AM CHULA VALENTINE [facility] During your visit today, we recorded the following information about you: Temperature Pulse Respiration Blood pressure 97.5 degrees 93/minute 18/minute 144/82 Weight 88.8 kg Chula Valentine, MANAGER TRUCK.LAST SAWYER 10/09/2024 11:55 AM Signed CC: Patient presents [...] anesthesia Diabetes mellitus type 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 ([facility]) 05/22/2022 Diabetes mellitus, type 2 (HCC) Hyperlipidemia [...] Dye [Iodine], Lincomycin, Pseudoephedrine, Reglan [Metoclopramide Hcl], Ucxmbqw-Xvt-Elx Reductase Inhibitors, Tequin [Gatifloxacin], and Doxycycline MEDICATIONS [...] a day with meals. blood sugar diagnostic ([employer] EnginesTOUCH ULTRA TEST) test strip Monitor blood sugar daily and as needed. montelukast (SINGULAIR) 10 mg tablet Take 1 tablet by mouth daily at bedtime. omeprazole (PRILOSEC) 40 mg capsule Take 1 c (more content not included)... Normal [facility] UA DIP, URINE (POC)on 2024 BILIRUBIN UA (POCT) Negative Negative [facility] CLARITY UA (POCT) Clear [facility] COLOR UA (POCT) Yellow [facility] GLUCOSE UA (POCT) Negative Negative mg/dL [facility] Hemoglobin Ql (U) Negative Negative [facility] KETONE UA (POCT) Negative Negative mg/dL [facility] LEUKOCYTES UA (POCT) Negative Negative [facility] NITRITE UA (POCT) Negative Negative [facility] PH UA (POCT) 5 4.5 - 8.0 [facility] Protein Ql (U) Negative Negative mg/dL [facility] SPECIFIC GRAVITY UA (POCT) 1.015 1.005 - 1.030 [facility] UROBILINOGEN UA (POCT) 0.2 Normal E.U./dL [facility] Location:[address], [place], [address] [facility] CNOVon 10-02-2024 CNOV Office Visit (FAMMAS ) ----- JANESSA BARON ([id number]) 1950 F Date Time Provider Department 10/02/24 1:10 PM KALI BACON During your visit today, we recorded the following information about you: Temperature Pulse Respiration Blood pressure 97.3 degrees 88/minute 18/minute 128/82 Weight Height 88.3 kg 1.6 m Spring Shipley LPN 10/02/2024 2:48 PM Signed Patient is in office for suture removal. Patient was also recent in [facility] from 09-25-2024 to 09-29-2024 for Pyelonephritis. In [...] old female. Patient was also recent in [facility] from 09-25-2024 to 09-29-2024 for Pyelonephritis. In [...] Cancer Sist (more content not included)... Normal [facility] Basic metabolic 2000 panelon 09-29-2024 Anion gap [Moles/Vol] 15 mmol/L Normal 8-15 [facility] Comment on above: Order Comment: Speci men Type: BLOOD SPECIMEN Ordering Facility: [facility] Address: [address] [place] [address] Performed By: #### 2 4321-2 #### [facility] CLIA [id number] [address] [place] [address] [place] Calcium [Mass/Vol] 8.3 mg/dL Low 8.5-10.2 [facility] Comment on above: Order Comment: Speci men Type: BLOOD SPECIMEN Ordering Facility: [facility] Address: [address] [place] [address] Performed By: #### 2 4321-2 #### [facility] CLIA [id number] [address] [place] [address] [place] Chloride [Moles/Vol] 105 mmol/L Normal 98-107 [facility] Comment on above: Order Comment: Speci men Type: BLOOD SPECIMEN Ordering Facility: [facility] Address: [address] [place] [address] Performed By: #### 2 4321-2 #### [facility] CLIA [id number] [address] [place] [address] [place] CO2 [Moles/Vol] 18 mmol/L Low 22-30 [facility] Comment on above: Order Comment: Speci men Type: BLOOD SPECIMEN Ordering Facility: [facility] Address: [address] [place] [address] Performed By: #### 2 4321-2 #### [facility] CLIA [id number] [address] [place] [address] [place] Creatinine [Mass/Vol] 0.94 mg/dL Normal 0.58-0.96 [facility] Comment on above: Order Comment: Gadiel cisneros Type: BLOOD SPECIMEN Ordering Facility: [facility] Address: [address] [place] [address] Performed By: #### 2 4321-2 #### [facility] CLIA [id number] [address] [place] [address] [place] Creatinine and Glomerular filtration rate.predicted panel (S/P/Bld) 65 mL/min/1.73m??? Normal >=60 [facility] Comment on above: Order Comment: Gadiel cisneros Type: BLOOD SPECIMEN Ordering Facility: [facility] Address: [address] [place] [address] Result Comment: Shauna mated Glomerular Filtration Rate [...] GFR. Performed By: #### 2 4321-2 #### [facility] CLIA [id number] [address] [place] [address] [place] Glucose [Mass/Vol] 154 mg/dL High 74-99 [facility] Comment on above: Order Comment: Gadiel cisneros Type: BLOOD SPECIMEN Ordering Facility: [facility] Address: [address] [place] [address] Result Comment: The [place] [employer] (ADA) provides guidance for cutoff [...] Standards of Medical Care in Diabetes 2016, [place] [employer]. Diabetes Care. 2016.39(Suppl 1). Performed By: #### 2 4321-2 #### [facility] CLIA [id number] [address] [place] [address] [place] Potassium [Moles/Vol] 4.0 mmol/L Normal 3.7-5.1 [facility] Comment on above: Order Comment: Speci men Type: BLOOD SPECIMEN Ordering Facility: [facility] Address: [address] [place] [address] Performed By: #### 2 4321-2 #### [facility] CLIA [id number] [address] [place] [address] [place] Sodium [Moles/Vol] 138 mmol/L Normal 136-144 [facility] Comment on above: Order Comment: Speci men Type: BLOOD SPECIMEN Ordering Facility: [facility] Address: [address] [place] [address] Performed By: #### 2 4321-2 #### [facility] CLIA [id number] [address] [place] [address] [place] Urea nitrogen [Mass/Vol] 20 mg/dL Normal 7-21 [facility] Comment on above: Order Comment: Speci men Type: BLOOD SPECIMEN Ordering Facility: [facility] Address: [address] [place] [address] Performed By: #### 2 4321-2 #### [facility] CLIA [id number] [address] [place] [address] [place] CBC panel Auto (Bld)on 09-29 Erythrocyte distribution width (RBC) [Ratio] 25.3 % High 11.5-15.0 [facility] Comment on above: Order Comment: Speci men Type: BLOOD SPECIMEN Ordering Facility: [facility] Address: [address] [place] [address] Performed By: #### 2 132-9, 2284-8 #### [facility] CLIA [id number] [address] [place] [address] [place] Hematocrit (Bld) [Volume fraction] 36.2 % Normal 36.0-46.0 [facility] Comment on above: Order Comment: Speci men Type: BLOOD SPECIMEN Ordering Facility: [facility] Address: [address] [place] [address] Performed By: #### 2 132-9, 2283-8 #### [facility] CLIA [id number] [address] [place] [address] [place] Hemoglobin (Bld) [Mass/Vol] 10.9 g/dL Low 11.5-15.5 [facility] Comment on above: Order Comment: Speci men Type: BLOOD SPECIMEN Ordering Facility: [facility] Address: [address] [place] [address] Performed By: #### 2 132-9, 2283-8 #### [facility] CLIA [id number] [address] [place] [address] [place] MCH (RBC) [Entitic mass] 24.1 pg Low 26.0-34.0 [facility] Comment on above: Order Comment: Speci men Type: BLOOD SPECIMEN Ordering Facility: [facility] Address: [address] [place] [address] Performed By: #### 2 132-9, 8 #### [facility] CLIA [id number] [address] [place] [address] [place] MCHC (RBC) [Mass/Vol] 30.1 g/dL Low 30.5-36.0 [facility] Comment on above: Order Comment: Speci men Type: BLOOD SPECIMEN Ordering Facility: [facility] Address: [address] [place] [address] Performed By: #### 2 132-9, 2283-8 #### [facility] CLIA [id number] [address] [place] [address] [place] MCV (RBC) [Entitic vol] 79.9 fL Low 80.0-100.0 [facility] Comment on above: Order Comment: Speci men Type: BLOOD SPECIMEN Ordering Facility: [facility] Address: [address] [place] [address] Performed By: #### 2 132-9, 8 #### [facility] CLIA [id number] [address] [place] [address] [place] Nucleated RBC (Bld) [#/Vol] 10*3/uL Normal <0.01 [facility] Comment on above: Order Comment: Speci men Type: BLOOD SPECIMEN Ordering Facility: [facility] Address: [address] [place] [address] Performed By: #### 2 132-9, 8 #### [facility] CLIA [id number] [address] [place] [address] [place] Platelet mean volume (Bld) [Entitic vol] 9.3 fL Normal 9.0-12.7 [facility] Comment on above: Order Comment: Speci men Type: BLOOD SPECIMEN Ordering Facility: [facility] Address: [address] [place] [address] Performed By: #### 2 132-9, 8 #### [facility] CLIA [id number] [address] [place] [address] [place] Platelets (Bld) [#/Vol] 266 10*3/uL Normal 150-400 [facility] Comment on above: Order Comment: Speci men Type: BLOOD SPECIMEN Ordering Facility: [facility] Address: [address] [place] [address] Performed By: #### 2 132-9, 8 #### [facility] CLIA [id number] [address] [place] [address] [place] RBC (Bld) [#/Vol] 4.53 10*6/uL Normal 3.90-5.20 [facility] Comment on above: Order Comment: Speci men Type: BLOOD SPECIMEN Ordering Facility: [facility] Address: [address] [place] [address] Performed By: #### 2 132-9, 2284-8 #### [facility] CLIA [id number] [address] [place], [place] [address] [place] WBC (Bld) [#/Vol] 9.22 10*3/uL Normal 3.70-11.00 [facility] Comment on above: Order Comment: Speci men Type: BLOOD SPECIMEN Ordering Facility: [facility] Address: [address] [place] [address] Performed By: #### 2 132-9, 2284-8 #### [facility] CLIA [id number] [address] [place] [address] [place] CNDSon 09-29-2024 CNDS HNO ID: [id number] Author: LUDMILA VELAZQUEZ MD Service: General Internal [...] stent, fibromyalgia.Apparently her had an appointment at [facility] and she accompanied him in car. After prolonged waiting in car, when she was getting out of car, felt lightheaded at which point she was helped by her and [facility] staff. Since patient continued to feel unwell, presented to ED. In ED, vital signs stable. EKG-normal sinus rhythm. HST 1417. Chest x-ray-no acute abnormalities WCC 15K, K3.2, [...] at dischar (more content not included)... Normal [facility] NURSING PROGon 09-29-2024 NURSING PROG HNO ID: [id number] Author: MIGDALIA CALZADA RN Service: Nursing Author Type: Registered Nurse Type: Nursing Progress Note Filed: 09/29/2024 15:18 Note Text: Pt discharged home with no skilled needs. Pt verbalized an understanding of all d/c instructions. PIV removed. Pt left unit via d/c transport with all belongings. Normal [facility] Basic metabolic 2000 panelon 09-28-2024 Anion gap [Moles/Vol] 13 mmol/L Normal 8-15 [facility] Comment on above: Order Comment: Speci men Type: BLOOD SPECIMEN Ordering Facility: [facility] Address: [address] [place] [address] Performed By: #### 2 4321-2 #### [facility] CLIA [id number] [address] [place] [address] [place] Calcium [Mass/Vol] 9.1 mg/dL Normal 8.5-10.2 [facility] Comment on above: Order Comment: Speci men Type: BLOOD SPECIMEN Ordering Facility: [facility] Address: [address] [place] [address] Performed By: #### 2 4321-2 #### [facility] CLIA [id number] [address] [place] [address] [place] Chloride [Moles/Vol] 101 mmol/L Normal 98-107 [facility] Comment on above: Order Comment: Speci men Type: BLOOD SPECIMEN Ordering Facility: [facility] Address: [address] [place] [address] Performed By: #### 2 4321-2 #### [facility] CLIA [id number] [address] [place] [address] [place] CO2 [Moles/Vol] 21 mmol/L Low 22-30 [facility] Comment on above: Order Comment: Speci men Type: BLOOD SPECIMEN Ordering Facility: [facility] Address: [address] [place] [address] Performed By: #### 2 4321-2 #### [facility] CLIA [id number] [address] [place] [address] [place] Creatinine [Mass/Vol] 1.22 mg/dL High 0.58-0.96 [facility] Comment on above: Order Comment: Speci men Type: BLOOD SPECIMEN Ordering Facility: [facility] Address: [address] [place] [address] Performed By: #### 2 4321-2 #### [facility] CLIA [id number] [address] [place] [address] [place] Creatinine and Glomerular filtration rate.predicted panel (S/P/Bld) 47 mL/min/1.73m??? Low >=60 [facility] Comment on above: Order Comment: Gadiel cisneros Type: BLOOD SPECIMEN Ordering Facility: [facility] Address: [address] [place] [address] Result Comment: Shauna mated Glomerular Filtration Rate [...] GFR. Performed By: #### 2 4321-2 #### [facility] CLIA [id number] [address] [place] [address] [place] Glucose [Mass/Vol] 179 mg/dL High 74-99 [facility] Comment on above: Order Comment: Gadiel cisneros Type: BLOOD SPECIMEN Ordering Facility: [facility] Address: [address] [place] [address] Result Comment: The [place] [employer] (ADA) provides guidance for cutoff [...] Standards of Medical Care in Diabetes 2016, [place] [employer]. Diabetes Care. 2016.39(Suppl 1). Performed By: #### 2 4321-2 #### [facility] CLIA [id number] [address] [place] [address] [place] Potassium [Moles/Vol] 4.3 mmol/L Normal 3.7-5.1 [facility] Comment on above: Order Comment: Gadiel cisneros Type: BLOOD SPECIMEN Ordering Facility: [facility] Address: [address] [place] [address] Performed By: #### 2 4321-2 #### [facility] CLIA [id number] [address] [place] [address] [place] Sodium [Moles/Vol] 135 mmol/L Low 136-144 [facility] Comment on above: Order Comment: Speci men Type: BLOOD SPECIMEN Ordering Facility: [facility] Address: [address] [place] [address] Performed By: #### 2 4321-2 #### [facility] CLIA [id number] [address] [place] [address] [place] Urea nitrogen [Mass/Vol] 31 mg/dL High 7-21 [facility] Comment on above: Order Comment: Speci men Type: BLOOD SPECIMEN Ordering Facility: [facility] Address: [address] [place] [address] Performed By: #### 2 4321-2 #### [facility] CLIA [id number] [address] [place] [address] [place] CBC panel Auto (Bld)on 09-28 Erythrocyte distribution width (RBC) [Ratio] 25.5 % High 11.5-15.0 [facility] Comment on above: Order Comment: Speci men Type: BLOOD SPECIMEN Ordering Facility: [facility] Address: [address] [place] [address] Performed By: #### 2 132-9, 8 #### [facility] CLIA [id number] [address] [place] [address] [place] Hematocrit (Bld) [Volume fraction] 39.5 % Normal 36.0-46.0 [facility] Comment on above: Order Comment: Speci men Type: BLOOD SPECIMEN Ordering Facility: [facility] Address: [address] [place] [address] Performed By: #### 2 132-9, 2283-8 #### [facility] CLIA [id number] [address] [place] [address] [place] Hemoglobin (Bld) [Mass/Vol] 12.1 g/dL Normal 11.5-15.5 [facility] Comment on above: Order Comment: Speci men Type: BLOOD SPECIMEN Ordering Facility: [facility] Address: [address] [place] [address] Performed By: #### 2 132-9, 8 #### [facility] CLIA [id number] [address] [place] [address] [place] MCH (RBC) [Entitic mass] 24.0 pg Low 26.0-34.0 [facility] Comment on above: Order Comment: Speci men Type: BLOOD SPECIMEN Ordering Facility: [facility] Address: [address] [place] [address] Performed By: #### 2 132-9, 8 #### [facility] CLIA [id number] [address] [place] [address] [place] MCHC (RBC) [Mass/Vol] 30.6 g/dL Normal 30.5-36.0 [facility] Comment on above: Order Comment: Speci men Type: BLOOD SPECIMEN Ordering Facility: [facility] Address: [address] [place] [address] Performed By: #### 2 132-9, 8 #### [facility] CLIA [id number] [address] [place] [address] [place] MCV (RBC) [Entitic vol] 78.2 fL Low 80.0-100.0 [facility] Comment on above: Order Comment: Speci men Type: BLOOD SPECIMEN Ordering Facility: [facility] Address: [address] [place] [address] Performed By: #### 2 132-9, 8 #### [facility] CLIA [id number] [address] [place] [address] [place] Nucleated RBC (Bld) [#/Vol] 10*3/uL Normal <0.01 [facility] Comment on above: Order Comment: Speci men Type: BLOOD SPECIMEN Ordering Facility: [facility] Address: [address] [place] [address] Performed By: #### 2 132-9, 8 #### [facility] CLIA [id number] [address] [place] [address] [place] Platelet mean volume (Bld) [Entitic vol] 9.0 fL Normal 9.0-12.7 [facility] Comment on above: Order Comment: Speci men Type: BLOOD SPECIMEN Ordering Facility: [facility] Address: [address] [place] [address] Performed By: #### 2 132-9, 8 #### [facility] CLIA [id number] [address] [place] [address] [place] Platelets (Bld) [#/Vol] 293 10*3/uL Normal 150-400 [facility] Comment on above: Order Comment: Speci men Type: BLOOD SPECIMEN Ordering Facility: [facility] Address: [address] [place] [address] Performed By: #### 2 132-9, 8 #### [facility] CLIA [id number] [address] [place] [address] [place] RBC (Bld) [#/Vol] 5.05 10*6/uL Normal 3.90-5.20 [facility] Comment on above: Order Comment: Speci men Type: BLOOD SPECIMEN Ordering Facility: [facility] Address: [address] [place] [address] Performed By: #### 2 132-9, 8 #### [facility] CLIA [id number] [address] [place] [address] [place] WBC (Bld) [#/Vol] 10.20 10*3/uL Normal 3.70-11.00 [facility] Comment on above: Order Comment: Speci men Type: BLOOD SPECIMEN Ordering Facility: [facility] Address: [address] [place] [address] Performed By: #### 2 132-9, 2284-8 #### [facility] CLIA [id number] [address] [place] [address] [place] Basic metabolic 2000 panelon 09-27-2024 Anion gap [Moles/Vol] 14 mmol/L Normal 8-15 [facility] Comment on above: Order Comment: Speci men Type: BLOOD SPECIMEN Ordering Facility: [facility] Address: [address] [place] [address] Performed By: #### 2 4321-2 #### [facility] CLIA [id number] [address] [place] [address] [place] Calcium [Mass/Vol] 9.3 mg/dL Normal 8.5-10.2 [facility] Comment on above: Order Comment: Speci men Type: BLOOD SPECIMEN Ordering Facility: [facility] Address: [address] [place] [address] Performed By: #### 2 4321-2 #### [facility] CLIA [id number] [address] [place] [address] [place] Chloride [Moles/Vol] 96 mmol/L Low 98-107 [facility] Comment on above: Order Comment: Speci men Type: BLOOD SPECIMEN Ordering Facility: [facility] Address: [address] [place] [address] Performed By: #### 2 4321-2 #### [facility] CLIA [id number] [address] [place] [address] [place] CO2 [Moles/Vol] 23 mmol/L Normal 22-30 [facility] Comment on above: Order Comment: Speci men Type: BLOOD SPECIMEN Ordering Facility: [facility] Address: [address] [place] [address] Performed By: #### 2 4321-2 #### [facility] CLIA [id number] [address] [place] [address] [place] Creatinine [Mass/Vol] 1.29 mg/dL High 0.58-0.96 [facility] Comment on above: Order Comment: Gadiel cisneros Type: BLOOD SPECIMEN Ordering Facility: [facility] Address: [address] [place] [address] Performed By: #### 2 4321-2 #### [facility] CLIA [id number] [address] [place] [address] [place] Creatinine and Glomerular filtration rate.predicted panel (S/P/Bld) 44 mL/min/1.73m??? Low >=60 [facility] Comment on above: Order Comment: Gadiel cisneros Type: BLOOD SPECIMEN Ordering Facility: [facility] Address: [address] [place] [address] Result Comment: Shauna mated Glomerular Filtration Rate [...] GFR. Performed By: #### 2 4321-2 #### [facility] CLIA [id number] [address] [place] [address] [place] Glucose [Mass/Vol] 151 mg/dL High 74-99 [facility] Comment on above: Order Comment: Gadiel men Type: BLOOD SPECIMEN Ordering Facility: [facility] Address: [address] [place] [address] Result Comment: The [place] [employer] (ADA) provides guidance for cutoff [...] Standards of Medical Care in Diabetes 2016, [employer] [place] [employer]. Diabetes Care. 2016.39(Suppl 1). Performed By: #### 2 4321-2 #### [facility] CLIA [id number] [address] [place] [address] [place] Potassium [Moles/Vol] 3.5 mmol/L Low 3.7-5.1 [facility] Comment on above: Order Comment: Gadiel cisneros Type: BLOOD SPECIMEN Ordering Facility: [facility] Address: [address] [place] [address] Performed By: #### 2 4321-2 #### [facility] CLIA [id number] [address] [place] [address] [place] Sodium [Moles/Vol] 133 mmol/L Low 136-144 [facility] Comment on above: Order Comment: Gadiel cisneros Type: BLOOD SPECIMEN Ordering Facility: [facility] Address: [address] [place] [address] Performed By: #### 2 4321-2 #### [facility] CLIA [id number] [address] [place] [address] [place] Urea nitrogen [Mass/Vol] 35 mg/dL High 7-21 [facility] Comment on above: Order Comment: Speci men Type: BLOOD SPECIMEN Ordering Facility: [facility] Address: [address] [place] [address] Performed By: #### 2 4321-2 #### [facility] CLIA [id number] [address] [place] [address] [place] CBC panel Auto (Bld)on 09-27 Erythrocyte distribution width (RBC) [Ratio] 25.4 % High 11.5-15.0 [facility] Comment on above: Order Comment: Speci men Type: BLOOD SPECIMEN Ordering Facility: [facility] Address: [address] [place] [address] Performed By: #### 2 132-9, 8 #### [facility] CLIA [id number] [address] [place] [address] [place] Hematocrit (Bld) [Volume fraction] 37.2 % Normal 36.0-46.0 [facility] Comment on above: Order Comment: Speci men Type: BLOOD SPECIMEN Ordering Facility: [facility] Address: [address] [place] [address] Performed By: #### 2 132-9, 8 #### [facility] CLIA [id number] [address] [place] [address] [place] Hemoglobin (Bld) [Mass/Vol] 11.4 g/dL Low 11.5-15.5 [facility] Comment on above: Order Comment: Speci men Type: BLOOD SPECIMEN Ordering Facility: [facility] Address: [address] [place] [address] Performed By: #### 2 132-9, 8 #### [facility] CLIA [id number] [address] [place] [address] [place] MCH (RBC) [Entitic mass] 23.8 pg Low 26.0-34.0 [facility] Comment on above: Order Comment: Speci men Type: BLOOD SPECIMEN Ordering Facility: [facility] Address: [address] [place], [place] [address] Performed By: #### 2 132-9, 2283-8 #### [facility] CLIA [id number] [address] [place] [address] [place] MCHC (RBC) [Mass/Vol] 30.6 g/dL Normal 30.5-36.0 [facility] Comment on above: Order Comment: Speci men Type: BLOOD SPECIMEN Ordering Facility: [facility] Address: [address] [place] [address] Performed By: #### 2 132-9, 8 #### [facility] CLIA [id number] [address] [place] [address] [place] MCV (RBC) [Entitic vol] 77.5 fL Low 80.0-100.0 [facility] Comment on above: Order Comment: Speci men Type: BLOOD SPECIMEN Ordering Facility: [facility] Address: [address] [place] [address] Performed By: #### 2 132-9, 8 #### [facility] CLIA [id number] [address] [place] [address] [place] Nucleated RBC (Bld) [#/Vol] 10*3/uL Normal <0.01 [facility] Comment on above: Order Comment: Speci men Type: BLOOD SPECIMEN Ordering Facility: [facility] Address: [address] [place] [address] Performed By: #### 2 132-9, 8 #### [facility] CLIA [id number] [address] [place] [address] [place] Platelet mean volume (Bld) [Entitic vol] 9.4 fL Normal 9.0-12.7 [facility] Comment on above: Order Comment: Speci men Type: BLOOD SPECIMEN Ordering Facility: [facility] Address: [address] [place] [address] Performed By: #### 2 132-9, 8 #### [facility] CLIA [id number] [address] [place] [address] [place] Platelets (Bld) [#/Vol] 286 10*3/uL Normal 150-400 [facility] Comment on above: Order Comment: Speci men Type: BLOOD SPECIMEN Ordering Facility: [facility] Address: [address] [place] [address] Performed By: #### 2 132-9, 8 #### [facility] CLIA [id number] [address] [place] [address] [place] RBC (Bld) [#/Vol] 4.80 10*6/uL Normal 3.90-5.20 [facility] Comment on above: Order Comment: Speci men Type: BLOOD SPECIMEN Ordering Facility: [facility] Address: [address] [place] [address] Performed By: #### 2 132-9, 2284-8 #### [facility] CLIA [id number] [address] [place] [address] [place] WBC (Bld) [#/Vol] 12.37 10*3/uL High 3.70-11.00 [facility] Comment on above: Order Comment: Speci men Type: BLOOD SPECIMEN Ordering Facility: [facility] Address: [address] [place] [address] Performed By: #### 2 132-9, 2284-8 #### [facility] CLIA [id number] [address] [place] [address] [place] US KIDNEY/BLADDERon 09-27-19 25 US KIDNEY/BLADDER * * *Final Report* * * DATE OF EXAM: Sep 27 2024 5:20PM [facility] - US KIDNEY/BLADDER / PROCEDURE REASON: [...] sonographic appearance of the kidneys and bladder. 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: [place] Transcribe Date/Time: Sep 27 2024 6:29P Dictated by : RADHA CONTE MD This examination was interpreted and the report reviewed and electronically signed by: NASIR GONGORA MD on Sep 27 2024 8:51PM EST [id number] Normal [facility] CASE MGT INIT ASSESon 2024 CASE MGT INIT ASSFE HNO ID: [id number] Author: HI WALDRON LISW Service: Emergency Medicine Author Type: Flux Core Welder Type: Care Mgt Initial Assessment Filed: 09/26/2024 11:37 Note Text: CARE MANAGEMENT: ASSESSMENT AND DISCHARGE PLAN SERVICE DATE: September 26, 2024 SERVICE TIME: 11:26 AM PCP: Kali Bacon MD Primary Contact: Extended Emergency Contact Information Primary Emergency Contact: rody baron Address: [address] [place] [address] Mobile Relation: Spouse Secondary Emergency Contact: Latrice Baron Address: [address] [place] [address] Mobile Relation: Daughter Admission Status: Inpatient Insurance Provider: [employer] A[employer] MEDICARE HMO Discharge Planning requested by: Per Department Practice Potential Transition Plans Home Advance Directives Current Advance Directive: Health Care Power of Sales Recruiting Coordinator In Chart: Yes Up To Date and [...] Be able to go home, General wellness [place] of Choice Explained: [place] of Choice Given: No Reason Not Given: [...] September 26, 2024 TIME: 11:26 AM Normal [facility] CONSULTon 09-26-2024 CONSULT HNO ID: [id number] Author: RAS PITT MD Service: Geriatrics Author [...] Transportation: I, Medications: I, Handle Finances: I (Bairdford scale): 8 Cognitive Status: Patient is able to state date, month, and year?: Yes Mini-Cog Score: 5/5 -Three-item recall score: 3/3 -Clock drawing score: 2/2 The patient's allergies, current medications, past medical history, past surgical history, social history, and family history have been reviewed with the patient and have been updated as appropriate. Please see the relevant sections in [facility] EHR for appropriate details. ALLERGIES Allergen Reactions Metoclopramide Unknown Sulfamethoxazole-Tr* Unknown Morphine Unknown Acetaminophen Unknown Augmentin [Amoxicil* Rash Cefzil [Cefprozil] Rash Dayquil Allergy 12-* Hives Dextromethorphan Hives Doxylamine Hives Erythromycin Rash Iodinated Contrast * Hives Ivp Dye [Iodine] Unknown knot on head Lincomycin Rash Pseudoephedrine Hives Reglan [Metoclopram* Intolerance Pfaduls-Oxr-Tbc Red* Unknown Other reaction(s): Other Tequin [Gatifloxaci* [...] breakfast. HY (more content not included)... Normal [facility] CT LUMBAR SPINE WO IVCONon 0 09-26-2024 CT LUMBAR SPINE WO IVCON * * *Final Report* * * DATE OF EXAM: Sep 26 2024 7:33AM [facility] 0508 - CT LUMBAR SPINE WO IVCON [...] are 5 lumbar-type vertebrae. Anatomic variant: None. Postal Delivery Officer (topogram) images: No additional findings. Alignment: Mild [...] and assume there are 5 lumbar-type vertebrae. 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: [place] Transcribe Date/Time: Sep 26 2024 7:36A Dictated by : COLIN DACOSTA MD This examination was interpreted and the report reviewed and electronically signed by: COLIN DACOSTA MD on Sep 26 2024 7:41AM EST [id number] Normal [facility] ECHOon 09-26-2024 Echocardiography Echocardiography Rep ort: Transthoracic Echo [facility] Date of service: 09/26/2024 9:24:54 AM MECHANIC Ordering physician: AMBAR DAVIDSON Indication: Syncope Technologist: [...] * * Final * * * CC [employer] [facility] : [id number] Normal [facility] ED NOTEon 09-26-2024 ED NOTE HNO ID: [id number] Author: OSKAR LOMBARDO LPN Service: Nursing Author Type: LICENSED NURSE Type: ED Notes Filed: 09/26/2024 03:09 Note Text: Pt discovered naked and screaming in room by EBER Cortez. When asked why she was naked and screaming, pt stated I'm hot and I can't get your attention any other way. Pt was reminded again of the call light functions. DARON Fernandez MD notified. Normal [facility] ED NOTE HNO ID: [id number] Author: OSKAR LOMBARDO LPN Service: Nursing Author Type: LICENSED NURSE Type: ED Notes Filed: 09/26/2024 04:58 Note Text: Pt beginning to moan loud enough that she can be heard at the nurses station. Pt has been educated repeatedly on the appropriate use of call light. Pt continues to speak in child-like manner, referred to her feet as footsie tootsies. Normal [facility] ED PROV NOTEon 09-26-2024 ED PROV NOTE HNO ID: [id number] Author: ROSIO FERNANDEZ MD Service: ? Author [...] - notified of critical lab result, preliminary 08/17 blood cultures positive for gram-negative bacilli. Discussed [...] PAGER/CONTACT #: ROSIO FERNANDEZ 09/26/24 0423 Normal [facility] HISTORY PHYSICALon HISTORY PHYSICAL HNO ID: [id number] Author: AMBAR DAVIDSON MD Service: General Internal Medicine Author Type: Physician Type: H&P Filed: 09/26/2024 06:21 Note Text: DEPARTMENT OF HOSPITAL MEDICINE HISTORY AND PHYSICAL EXAM SERVICE DATE: 09/26/2024 SERVICE TIME: 5:07 AM Primary Care Physician: Kali Bacon MD NIGHT AND WEEKEND COVERAGE: [facility] COVERAGE: Days: [phone], please page listed attending provider for patient issues. Nights: [phone], please page Team listed as covering under [...] daily for 10 days. lancets (ONE TOUCH DELBureaux A Partager) 33 gauge No No (more content not included)... Normal [facility] NURSING PROGon 09-26-2024 NURSING PROG HNO ID: [id number] Author: FLORES MELENDREZ, RN Service: Nursing Author Type: Registered Nurse Type: Nursing Progress Note Filed: 09/26/2024 18:23 Note Text: Transfer Note: PATIENT NAME: Janessa Baron Patient Location: Room: Patient transferred into room/unit in stable condition. Actions taken: Patient belongings with patient. Pt oriented to room and call light, verbalizes understanding. Normal [facility] Bacteria Bld Culton 09-25-19 25 Bacteria identified Cx Nom (Bld) ORGANISM ID: 1 Escherichia coli GRAM [...] , Intermediate >=.5 , Resistant >=1 Abnormal [facility] Comment on above: Performed By: #### I DBCGN, 600-7 ####[facility] [id number] [address] STATES OF [facility] Bacteria identified Cx Nom (Bld) ORGANISM ID: 1 Escherichia coli Refer to specimen collected on 09/25/2024 1651 ([id number]) GRAM STAIN: Gram negative bacilli Abnormal [facility] Comment on above: Performed By: #### 6 00-7 ####[facility] [id number] [address] STATES OF [facility] Bacteria Ur Culton 5 Bacteria identified Cx [place] (U) ORGANISM ID: 1 >=100,000 CFU/ml Escherichia [...] , Intermediate >32 , Resistant >64 Abnormal [facility] Comment on above: Performed By: #### 2 4321-2 #### [facility] CLIA [id number] [address] [place] [address] [place] Basic metabolic 2000 panelon 09-25-2024 Anion gap [Moles/Vol] 13 mmol/L Normal 8-15 [facility] Comment on above: Order Comment: Speci men Type: BLOOD SPECIMEN Ordering Facility: [facility] Address: [address] [place] [address] Performed By: #### 2 4321-2 #### [facility] CLIA [id number] [address] [place] [address] [place] Calcium [Mass/Vol] 8.9 mg/dL Normal 8.5-10.2 [facility] Comment on above: Order Comment: Speci men Type: BLOOD SPECIMEN Ordering Facility: [facility] Address: [address] [place] [address] Performed By: #### 2 4321-2 #### [facility] CLIA [id number] [address] [place] [address] [place] Chloride [Moles/Vol] 97 mmol/L Low 98-107 [facility] Comment on above: Order Comment: Speci men Type: BLOOD SPECIMEN Ordering Facility: [facility] Address: [address] [place] [address] Performed By: #### 2 4321-2 #### [facility] CLIA [id number] [address] [place] [address] [place] CO2 [Moles/Vol] 26 mmol/L Normal 22-30 [facility] Comment on above: Order Comment: Speci men Type: BLOOD SPECIMEN Ordering Facility: [facility] Address: [address] [place] [address] Performed By: #### 2 4321-2 #### [facility] CLIA [id number] [address] [place] [address] [place] Creatinine [Mass/Vol] 1.01 mg/dL High 0.58-0.96 [facility] Comment on above: Order Comment: Gadiel cisneros Type: BLOOD SPECIMEN Ordering Facility: [facility] Address: [address] [place] [address] Performed By: #### 2 4321-2 #### [facility] CLIA [id number] [address] [place] [address] [place] Creatinine and Glomerular filtration rate.predicted panel (S/P/Bld) 59 mL/min/1.73m??? Low >=60 [facility] Comment on above: Order Comment: Gadiel cisneros Type: BLOOD SPECIMEN Ordering Facility: [facility] Address: [address] [place] [address] Result Comment: Shauna mated Glomerular Filtration Rate [...] GFR. Performed By: #### 2 4321-2 #### [facility] CLIA [id number] [address] [place] [address] [place] Glucose [Mass/Vol] 130 mg/dL High 74-99 [facility] Comment on above: Order Comment: Gadiel cisneros Type: BLOOD SPECIMEN Ordering Facility: [facility] Address: [address] [place] [address] Result Comment: The [place] [employer] (ADA) provides guidance for cutoff [...] Standards of Medical Care in Diabetes 2016, [place] [employer]. Diabetes Care. 2016.39(Suppl 1). Performed By: #### 2 4321-2 #### [facility] CLIA [id number] [address] [place] [address] [place] Potassium [Moles/Vol] 3.2 mmol/L Low 3.7-5.1 [facility] Comment on above: Order Comment: Gadiel cisneros Type: BLOOD SPECIMEN Ordering Facility: [facility] Address: [address] [place] [address] Performed By: #### 2 4321-2 #### [facility] CLIA [id number] [address] [place] [address] [place] Sodium [Moles/Vol] 136 mmol/L Normal 136-144 [facility] Comment on above: Order Comment: Gadiel cisneros Type: BLOOD SPECIMEN Ordering Facility: [facility] Address: [address] [place] [address] Performed By: #### 2 4321-2 #### [facility] CLIA [id number] [address] [place] [address] [place] Urea nitrogen [Mass/Vol] 30 mg/dL High 7-21 [facility] Comment on above: Order Comment: Juani amelia Type: BLOOD SPECIMEN Ordering Facility: [facility] Address: [address] [place] [address] Performed By: #### 2 4321-2 #### [facility] CLIA [id number] [address] [place] [address] [place] CBC W Auto Differential pane l (Bld)on 09-25-2024 Basophils (Bld) [#/Vol] 10*3/uL Normal <0.11 [facility] Comment on above: Order Comment: Speci men Type: BLOOD SPECIMEN Ordering Facility: [facility] Address: [address] [place] [address] Performed By: #### 2 132-9, 8 #### [facility] CLIA [id number] [address] [place], [place] [address] [place] Basophils/100 WBC (Bld) 0.1 % Normal [facility] Comment on above: Order Comment: Speci men Type: BLOOD SPECIMEN Ordering Facility: [facility] Address: [address] [place] [address] Performed By: #### 2 132-9, 8 #### [facility] CLIA [id number] [address] [place] [address] [place] Differential cell count method Nom (Bld) Auto Normal [facility] Comment on above: Order Comment: Speci men Type: BLOOD SPECIMEN Ordering Facility: [facility] Address: [address] [place] [address] Performed By: #### 2 132-9, 8 #### [facility] CLIA [id number] [address] [place] [address] [place] Eosinophils (Bld) [#/Vol] 10*3/uL Normal <0.46 [facility] Comment on above: Order Comment: Speci men Type: BLOOD SPECIMEN Ordering Facility: [facility] Address: [address] [place] [address] Performed By: #### 2 132-9, 8 #### [facility] CLIA [id number] [address] [place] [address] [place] Eosinophils/100 WBC (Bld) 0.1 % Normal [facility] Comment on above: Order Comment: Speci men Type: BLOOD SPECIMEN Ordering Facility: [facility] Address: [address] [place] [address] Performed By: #### 2 132-9, 8 #### [facility] CLIA [id number] [address] [place] [address] [place] Erythrocyte distribution width (RBC) [Ratio] 25.5 % High 11.5-15.0 [facility] Comment on above: Order Comment: Speci men Type: BLOOD SPECIMEN Ordering Facility: [facility] Address: [address] [place] [address] Performed By: #### 2 132-9, 8 #### [facility] CLIA [id number] [address] [place] [address] [place] Hematocrit (Bld) [Volume fraction] 38.8 % Normal 36.0-46.0 [facility] Comment on above: Order Comment: Speci men Type: BLOOD SPECIMEN Ordering Facility: [facility] Address: [address] [place] [address] Performed By: #### 2 132-9, 8 #### [facility] CLIA [id number] [address] [place] [address] [place] Hemoglobin (Bld) [Mass/Vol] 11.9 g/dL Normal 11.5-15.5 [facility] Comment on above: Order Comment: Speci men Type: BLOOD SPECIMEN Ordering Facility: [facility] Address: [address] [place] [address] Performed By: #### 2 132-9, 8 #### [facility] CLIA [id number] [address] [place] [address] [place] Immature granulocytes (Bld) [#/Vol] 0.11 10*3/uL High <0.10 [facility] Comment on above: Order Comment: Speci men Type: BLOOD SPECIMEN Ordering Facility: [facility] Address: [address] [place] [address] Performed By: #### 2 132-9, 8 #### [facility] CLIA [id number] [address] [place] [address] [place] Immature granulocytes/100 WBC (Bld) 0.7 % Normal [facility] Comment on above: Order Comment: Speci men Type: BLOOD SPECIMEN Ordering Facility: [facility] Address: [address] [place] [address] Performed By: #### 2 132-9, 228-8 #### [facility] CLIA [id number] [address] [place] [address] [place] Lymphocytes (Bld) [#/Vol] 2.00 10*3/uL Normal 1.00-4.00 [facility] Comment on above: Order Comment: Speci men Type: BLOOD SPECIMEN Ordering Facility: [facility] Address: [address] [place] [address] Performed By: #### 2 132-9, 8 #### [facility] CLIA [id number] [address] [place] [address] [place] Lymphocytes/100 WBC (Bld) 13.1 % Normal [facility] Comment on above: Order Comment: Speci men Type: BLOOD SPECIMEN Ordering Facility: [facility] Address: [address] [place] [address] Performed By: #### 2 132-9, 8 #### [facility] CLIA [id number] [address] [place] [address] [place] MCH (RBC) [Entitic mass] 23.7 pg Low 26.0-34.0 [facility] Comment on above: Order Comment: Speci men Type: BLOOD SPECIMEN Ordering Facility: [facility] Address: [address] [place] [address] Performed By: #### 2 132-9, 8 #### [facility] CLIA [id number] [address] [place] [address] [place] MCHC (RBC) [Mass/Vol] 30.7 g/dL Normal 30.5-36.0 [facility] Comment on above: Order Comment: Speci men Type: BLOOD SPECIMEN Ordering Facility: [facility] Address: [address] [place] [address] Performed By: #### 2 132-9, 8 #### [facility] CLIA [id number] [address] [place] [address] [place] MCV (RBC) [Entitic vol] 77.1 fL Low 80.0-100.0 [facility] Comment on above: Order Comment: Speci men Type: BLOOD SPECIMEN Ordering Facility: [facility] Address: [address] [place] [address] Performed By: #### 2 132-9, 8 #### [facility] CLIA [id number] [address] [place] [address] [place] Monocytes (Bld) [#/Vol] 1.06 10*3/uL High <0.87 [facility] Comment on above: Order Comment: Speci men Type: BLOOD SPECIMEN Ordering Facility: [facility] Address: [address] [place] [address] Performed By: #### 2 132-9, 8 #### [facility] CLIA [id number] [address] [place] [address] [place] Monocytes/100 WBC (Bld) 7.0 % Normal [facility] Comment on above: Order Comment: Speci men Type: BLOOD SPECIMEN Ordering Facility: [facility] Address: [address] [place] [address] Performed By: #### 2 132-9, 8 #### [facility] CLIA [id number] [address] [place] [address] [place] Neutrophils (Bld) [#/Vol] 12.01 10*3/uL High 1.45-7.50 [facility] Comment on above: Order Comment: Speci men Type: BLOOD SPECIMEN Ordering Facility: [facility] Address: [address] [place] [address] Performed By: #### 2 132-9, 8 #### [facility] CLIA [id number] [address] [place] [address] [place] Neutrophils/100 WBC (Bld) 79.0 % Normal [facility] Comment on above: Order Comment: Speci men Type: BLOOD SPECIMEN Ordering Facility: [facility] Address: [address] [place] [address] Performed By: #### 2 132-9, 8 #### [facility] CLIA [id number] [address] [place] [address] [place] Nucleated RBC (Bld) [#/Vol] 10*3/uL Normal <0.01 [facility] Comment on above: Order Comment: Speci men Type: BLOOD SPECIMEN Ordering Facility: [facility] Address: [address] [place] [address] Performed By: #### 2 132-9, 2284-03 #### [facility] CLIA [id number] [address] [place] [address] [place] Nucleated RBC/100 WBC (Bld) [Ratio] 0.0 /100 WBC Normal [facility] Comment on above: Order Comment: Speci men Type: BLOOD SPECIMEN Ordering Facility: [facility] Address: [address] [place] [address] Performed By: #### 2 132-9, 8 #### [facility] CLIA [id number] [address] [place] [address] [place] Platelet mean volume (Bld) [Entitic vol] 8.7 fL Low 9.0-12.7 [facility] Comment on above: Order Comment: Speci men Type: BLOOD SPECIMEN Ordering Facility: [facility] Address: [address] [place] [address] Performed By: #### 2 132-9, 8 #### [facility] CLIA [id number] [address] [place] [address] [place] Platelets (Bld) [#/Vol] 296 10*3/uL Normal 150-400 [facility] Center Comment on above: Order Comment: Speci men Type: BLOOD SPECIMEN Ordering Facility: [facility] Address: [address] [place] [address] Performed By: #### 2 132-9, 2284-8 #### [facility] CLIA [id number] [address] [place] [address] [place] RBC (Bld) [#/Vol] 5.03 10*6/uL Normal 3.90-5.20 [facility] Comment on above: Order Comment: Speci men Type: BLOOD SPECIMEN Ordering Facility: [facility] Address: [address] [place] [address] Performed By: #### 2 132-9, 2284-8 #### [facility] CLIA [id number] [address] [place] [address] [place] WBC (Bld) [#/Vol] 15.21 10*3/uL High 3.70-11.00 [facility] Comment on above: Order Comment: Speci men Type: BLOOD SPECIMEN Ordering Facility: [facility] Address: [address] [place] [address] Performed By: #### 2 132-9, 2284-8 #### [facility] CLIA [id number] [address] [place] [address] [place] ABD/PEL WO IVCONon 2024 CT ABD/PEL WO IVCON * * *Final Report* * * DATE OF EXAM: Sep 25 2024 5:53PM [facility] 0531 - CT ABD/PEL WO IVCON / [...] to focal renal parenchymal abnormalities including pyelonephritis. 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: [facility] Transcribe Date/Time: Sep 25 2024 7:01P Dictated by : ANGEL WHITMAN MD This examination was interpreted and the report reviewed and electronically signed by: ANGEL WHITMAN MD on Sep 25 2024 7:07PM EST [id number] Normal [facility] CT BRAIN WO IVCONon 09-25-19 CT BRAIN WO IVCON * * *Final Report* * * DATE OF EXAM: Sep 25 2024 5:53PM [facility] 0504 - CT BRAIN WO IVCON / [...] abnormalities. Small remote right PICA territory infarct. 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 Transcribe Date/Time: Sep 25 2024 6:11P Dictated by : MILDRED MAURICIO MD This examination was interpreted and the report reviewed and electronically signed by: MILDRED MAURICIO MD on Sep 25 2024 6:12PM EST [id number] Normal [facility] ECG COMPLETEon 09-25-2024 ECG COMPLETE Ventricular Rate : 8 4 BPM Atrial Rate : 84 BPM P-R Interval : 146 ms QRS Duration : 88 ms Q-T Interval : 358 ms QTC Calculation(Bazett) : 423 ms Calculated P Monroe : 36 degrees Calculated R Monroe : -25 degrees Calculated T Monroe : 105 degrees NORMAL SINUS RHYTHM LEFT VENTRICULAR HYPERTROPHY WITH REPOLARIZATION ABNORMALITY ( R in aVL ) INFERIOR MYOCARDIAL INFARCTION , AGE UNDETERMINED ABNORMAL ECG NOTE: PLEASE SEE PHYSICIAN'S NOTE FROM E.D. VISIT Confirmed by MD ZAYAS CHRISTOPHER ([id number]), scientific publications editor AIDA MCKEON ([id number]) on 10/01/2024 1:02:07 PM NAME : JANESSA BARON PID : [id number] : 1950 Gender : Female Race : ORD : [id number] Procedure Date : Sep 25 2024 12:19:59 Edit Date : Oct 01 2024 13:02:09 Diagnosis: NORMAL SINUS RHYTHM LEFT VENTRICULAR HYPERTROPHY WITH REPOLARIZATION ABNORMALITY ( R in aVL ) INFERIOR MYOCARDIAL INFARCTION , AGE UNDETERMINED ABNORMAL ECG NOTE: PLEASE SEE PHYSICIAN'S NOTE FROM E.D. VISIT Confirmed by MD ZAYAS CHRISTOPHER ([id number]), scientific publications editor AIDA MCKEON ([id number]) on 10/01/2024 1:02:07 PM Test Reason : Chest Pain Location : 2 : EDNS E15-008 Overread By : MD ZAYAS CHRISTOPHER Edited By : AIDA MCKEON Referred By : , Acquired by : ashlyn, [facility] ED NOTEon 09-25-2024 ED NOTE HNO ID: [id number] Author: OSKAR LOMBARDO LPN Service: Nursing Author Type: LICENSED NURSE Type: ED Notes Filed: 09/25/2024 23:09 Note Text: Pt still very vocal about having joint pain. Pt endorses feelings of frustration with this UTILITY LINEMAN. 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 Responded with HEART. This nurse reminded Mrs. Baron that her behavior towards nursing staff will not be tolerated. Firm boundaries drawn with pt concerning care and communication. DARON Nugent MD notified. [facility] ED NOTE HNO ID: [id number] Author: OSKAR LOMBARDO LPN Service: Nursing Author Type: LICENSED NURSE Type: ED Notes Filed: 09/25/2024 23:04 Note Text: Pt very vocal in expressing discomfort with this nurse. Pt moaning so loudly passersby can hear her through the closed door. Upon entering the room, pt shouted help me damn it! At this UTILITY LINEMAN. When I attempted other methods of pain management, pt interrupted this nurse with intentional and repeated wailing. Eventually pt got within a couple of inches to this UTILITY LINEMAN's face and screamed Get the hell out of here until you can actually do something! Pt continues to moan and wail despite reassurances from staff. DARON Nugent MD notified. [facility] ED NOTE HNO ID: [id number] Author: ELLI PINEDA, EBER Service: Emergency Medicine Author Type: Registered Nurse Type: ED Notes Filed: 09/25/2024 22:32 Note Text: Nurse to nurse given to PATRICA Akins. [facility] ED PROV NOTEon 09-25-2024 ED PROV NOTE HNO ID: [id number] Author: GAUTAM NUGENT MD Service: Emergency Medicine Author Type: Physician Type: ED Provider Notes Filed: 09/26/2024 01:07 Note Text: ED CONTINUATION OF CARE NOTE Code Status: Full Code Assumed care from: Dr Lawrence Zayas Presentation / Findings / Interventions / Plan / Items to Follow Up: Lincoln lightheaded with syncopal episode when getting out of the car on campus for her 's outpatient appointment. She also complained of abdominal pain. She is noted to have elevated heart rate and fever. Pending CT scan head, abd. Treated as for pyelonephritis with ceftriaxone, +1 LE, > 20 WBC on UA, WBC blood 15K. ED Course as of 09/26/24 010 Others' Documentation WedSep 25, 2024 1231 EKG personally reviewed NSR 84, normal MD and QT intervals, narrow QRS, no ST/T concerning for ischemia; no prior for comparison. [CB] 1313 History: 74F CAD s/p CABG, DM2 presenting for lightheaded upon standing from car; no fall, lowered to ground by staff. No CP or SOB. Symptoms have resolved. Lincoln fine this morning. Recently started steroid taper [...] Thank you, Leo Zayas MD [facility] [place] [CB] ED Course User Index [CB] Leo [...] TIME: 5:08 PM PAGER/CONTACT #: GAUTAM NUGENT 09/26/24 0107 Normal [facility] ED PROV NOTE HNO ID: [id number] Author: LEO ZAYAS MD Service: Emergency Medicine [...] the ground. Never passed out. Ms. Janessa Baorn, a 74-year-old female, with a previous medical history of asthma, HTN, HLD, CAD s/p CABG x 3 (11/2022), type 2 DM, carotid artery stenosis s/p stent, fibromyalgia, who presents to the Emergency Department with a chief complaint of lightheadedness. Patient states that she was coming up to [facility] for her 's scheduled appointment today. Patient did not drive, and then had to wait another hour to have an wind chipper machine operator parking at the main entrance of the [facility]. Patient states that upon getting out of [...] Lincomycin Rash Pseudoephedrine Hives Reglan [Metoclopram* Intolerance Ibtykno-Xpu-Mno Red* Unknown Other reaction(s): Other Tequin [Gatifloxaci* [...] Resp SpO2 (more content not included)... Normal [facility] GRAM NEGATIVE ORGANISM ID BY MICROARRAY ([employer]on 09-25-2024 GRAM NEGATIVE ORGANISM ID BY MICROARRAY ([employer] BCID INTERPRETATION: Escherichia coli detected by microarray. Confirmation and susceptibility testing to follow. Negative for Acinetobacter spp. and Pseudomonas aeruginosa by microarray. Abnormal [facility] Comment on above: Performed By: #### I DBCGN, 600-7 ####[facility] [id number] [place] [address] [place] HIGH SENSITIVITY TROPONIN T (INITIAL)on 09-25-2024 Troponin T.cardiac High sensitivity method [Mass/Vol] 14 ng/L High <12 [facility] Comment on above: Order Comment: Speci men Type: BLOOD SPECIMEN Ordering Facility: [facility] Address: [address] [place] [address] Performed By: #### 2 4321-2 #### [facility] CLIA [id number] [address] [place] [address] [place] HIGH SENSITIVITY TROPONIN T (SECOND)on 09-25-2024 Troponin T.cardiac High sensitivity method [Mass/Vol] 16 ng/L High <12 [facility] Comment on above: Order Comment: Speci men Type: BLOOD SPECIMEN Ordering Facility: [facility] Address: [address] [place] [address] Performed By: #### L [id number] #### [facility] CLIA [id number] [address] [place] [address] [place] HIGH SENSITIVITY TROPONIN T (THIRD) 3 HRS AFTER INITIALon 09-25-2024 Troponin T.cardiac High sensitivity method [Mass/Vol] 17 ng/L High <12 [facility] Comment on above: Order Comment: Gadiel cisneros Type: BLOOD SPECIMEN Ordering Facility: [facility] Address: [address] [place] [address] Performed By: #### 2 4321-2 #### [facility] CLIA [id number] [address] [place] [address] [place] Magnesium SerPl-mCncon 09-25 Magnesium [Mass/Vol] 1.5 mg/dL Low 1.7-2.3 [facility] Comment on above: Order Comment: Gadiel cisneros Type: BLOOD SPECIMEN Ordering Facility: [facility] Address: [address] [place] [address] Performed By: #### 2 4321-2 #### [facility] CLIA [id number] [address] [place] [address] [place] PT panel Coag (PPP)on 2024 INR Coag (PPP) [Relative time] 1.0 {INR} Normal 0.9-1.3 [facility] Comment on above: Order Comment: Gadiel cisneros Type: BLOOD SPECIMENOrdering Facility: [facility] Address: [address] [place] [address] Result Comment: Marina min K Antagonist (VKA) Therapeutic Range: INR 2 to 3 (Target INR of 2.5) Note: For patients treated with VKA drugs, such as warfarin, the [employer] 2012 Guideline recommends [...] GH, et al. Chest 2012, 141:7S-47S Jamel RA et al. JACC 2017, 70: 252-289 Performed By: #### 3 4528-0, 20264-9 ####[facility] [id number] [place] [address] [place] PT Coag (PPP) [Time] 11.2 s Normal 9.7-13.0 [facility] Comment on above: Order Comment: Speci men Type: BLOOD SPECIMENOrdering Facility: [facility] Address: [address] [place] [address] Performed By: #### 3 4528-0, 41100-9 ####[facility] [id number] [place] [address] [place] SEPSIS LACTATE W/ REFLEX (IN ITIAL)on 09-25-2024 Lactate [Moles/Vol] 2.2 mmol/L High <=2.0 [facility] Comment on above: Order Comment: Speci men Type: BLOOD SPECIMEN Ordering Facility: [facility] Address: [address] [place] [address] Performed By: #### 2 4321-2 #### [facility] CLIA [id number] [address] [place] [address] [place] SEPSIS LACTATE W/ REFLEX (SE COND)on 09-25-2024 Lactate [Moles/Vol] 1.8 mmol/L Normal <=2.0 [facility] Comment on above: Order Comment: Speci men Type: BLOOD SPECIMEN Ordering Facility: [facility] Address: [address] [place] [address] Performed By: #### 2 132-9, 2284-8 #### [facility] CLIA [id number] [address] [place] [address] [place] Urinalysis complete panel (U )on 09-25-2024 BACTERIA UL >9821 High Negative [facility] Comment on above: Order Comment: Speci men Type: BLOOD SPECIMEN Ordering Facility: [facility] Address: [address] [place] [address] Performed By: #### 2 4321-2 #### [facility] CLIA [id number] [address] [place] [address] [place] Bilirubin Ql (U) Negative Normal Negative [facility] Comment on above: Order Comment: Speci men Type: BLOOD SPECIMEN Ordering Facility: [facility] Address: [address] [place] [address] Performed By: #### 2 4321-2 #### [facility] CLIA [id number] [address] [place] [address] [place] Clarity (Unsp spec) Clear Normal Clear [facility] Comment on above: Order Comment: Speci men Type: BLOOD SPECIMEN Ordering Facility: [facility] Address: [address] [place] [address] Performed By: #### 2 4321-2 #### [facility] CLIA [id number] [address] [place] [address] [place] Color (U) Yellow Normal Yellow [facility] Comment on above: Order Comment: Speci men Type: BLOOD SPECIMEN Ordering Facility: [facility] Address: [address] [place] [address] Performed By: #### 2 4321-2 #### [facility] CLIA [id number] [address] [place] [address] [place] Epithelial cells LM.HPF (Urine sed) [#/Area] None Seen Normal [facility] Comment on above: Order Comment: Speci men Type: BLOOD SPECIMEN Ordering Facility: [facility] Address: [address] [place], [place] [address] Performed By: #### 2 4321-2 #### [facility] CLIA [id number] [address] [place] [address] [place] Glucose Test strip (U) [Mass/Vol] 3+ Abnormal Negative [facility] Comment on above: Order Comment: Speci men Type: BLOOD SPECIMEN Ordering Facility: [facility] Address: [address] [place] [address] Performed By: #### 2 4321-2 #### [facility] CLIA [id number] [address] [place] [address] [place] Hemoglobin Ql (U) 1+ Abnormal Negative [facility] Comment on above: Order Comment: Speci men Type: BLOOD SPECIMEN Ordering Facility: [facility] Address: [address] [place] [address] Performed By: #### 2 4321-2 #### [facility] CLIA [id number] [address] [place] [address] [place] Hyaline casts (Urine sed) [#/Area] 1-3 /LPF Abnormal 0 /LPF [facility] Comment on above: Order Comment: Speci men Type: BLOOD SPECIMEN Ordering Facility: [facility] Address: [address] [place] [address] Performed By: #### 2 4321-2 #### [facility] CLIA [id number] [address] [place] [address] [place] Ketones Ql (U) Negative Normal Negative [facility] Comment on above: Order Comment: Speci men Type: BLOOD SPECIMEN Ordering Facility: [facility] Address: [address] [place] [address] Performed By: #### 2 4321-2 #### [facility] CLIA [id number] [address] [place] [address] [place] Leukocyte esterase Test strip Ql (U) 1+ Abnormal Negative [facility] Comment on above: Order Comment: Speci men Type: BLOOD SPECIMEN Ordering Facility: [facility] Address: [address] [place] [address] Performed By: #### 2 4321-2 #### [facility] CLIA [id number] [address] [place] [address] [place] Nitrite Ql (U) Negative Normal Negative [facility] Comment on above: Order Comment: Speci men Type: BLOOD SPECIMEN Ordering Facility: [facility] Address: [address] [place] [address] Performed By: #### 2 4321-2 #### [facility] CLIA [id number] [address] [place] [address] [place] pH (U) 6.0 [pH] Normal <8.5 [facility] Comment on above: Order Comment: Speci men Type: BLOOD SPECIMEN Ordering Facility: [facility] Address: [address] [place] [address] Performed By: #### 2 4321-2 #### [facility] CLIA [id number] [address] [place] [address] [place] Protein (U) [Mass/Vol] 1+ Abnormal Negative [facility] Comment on above: Order Comment: Speci men Type: BLOOD SPECIMEN Ordering Facility: [facility] Address: [address] [place] [address] Performed By: #### 2 4321-2 #### [facility] CLIA [id number] [address] [place] [address] [place] RBC LM.HPF (Urine sed) [#/Area] 0-2 /HPF Normal 0-2 /HPF [facility] Comment on above: Order Comment: Speci men Type: BLOOD SPECIMEN Ordering Facility: [facility] Address: [address] [place] [address] Performed By: #### 2 4321-2 #### [facility] CLIA [id number] [address] [place] [address] [place] Specific gravity (U) [Rel density] 1.024 Normal 1.005-1.030 [facility] Comment on above: Order Comment: Speci men Type: BLOOD SPECIMEN Ordering Facility: [facility] Address: [address] [place] [address] Performed By: #### 2 4321-2 #### [facility] [place] [id number] [address] [place] [address] [place] Urobilinogen Ql (U) 0.2 EU/dL Normal 0.2-1.0 EU/dL [facility] Comment on above: Order Comment: Speci men Type: BLOOD SPECIMEN Ordering Facility: [facility] Address: [address] [place] [address] Performed By: #### 2 4321-2 #### [facility] IA [id number] [address] [place] [address] [place] WBC LM.HPF (Urine sed) [#/Area] /[HPF] Abnormal 0-5 /HPF [facility] Comment on above: Order Comment: Speci men Type: BLOOD SPECIMEN Ordering Facility: [facility] Address: [address] [place] [address] Performed By: #### 2 4321-2 #### [facility] IA [id number] [address] [place] [address] [place] XR CHEST 2V [...] tissues: Unremarkable. IMPRESSION: No acute radiographic abnormality. 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 Transcribe Date/Time: Sep 25 2024 3:32P Dictated by : JUVE WILBURN MD This examination was interpreted and the report reviewed and electronically signed by: CHLOE ACEVES MD on Sep 25 2024 3:42PM EST [id number] Normal [facility] aPTT PPPon 09-25-2024 aPTT Coag (PPP) [Time] 23.7 s Normal 23.0-32.4 [facility] Comment on above: Order Comment: Speci men Type: BLOOD SPECIMENOrdering Facility: [facility] Address: [address] [place] [address] Performed By: #### 3 4528-0, 35473-2 ####[facility]IA [id number] [facility] [id number] [address] [place] PAP I-G w/rfx hrHPV-Aptimaon 09-22-2024 ADEQ Comment Normal . [facility] Comment on above: Order Comment: Speci men Comment: [id number] Comment: Source.............CervixSpecimen Comment: Other..............Post MenopausalSpecimen Comment: No. of containers..01 ThinPrep Vial Result Comment: Sati sfactory for evaluation. Endocervical and/or squamous metaplastic cells (endocervical component) are present. Performed By: #### L 503.6030 #### [facility] [address] [facility] [place], [place], [id number] COMM . Normal . [facility] Comment on above: Order Comment: Speci men Comment: [id number] Comment: Source.............CervixSpecimen Comment: Other..............Post MenopausalSpecimen Comment: No. of containers..01 ThinPrep Vial Performed By: #### L 503.6030 #### [facility] [address] [place], [place], [id number] COMMENT Comment Normal . [facility] Comment on above: Order Comment: Speci men Comment: [id number] Comment: Source.............CervixSpecimen Comment: Other..............Post MenopausalSpecimen Comment: No. of containers..01 ThinPrep Vial Result Comment: This liquid based ThinPrep(R) pap test was screened with the use of an image guided system. Performed By: #### L 503.6030 #### [facility] [address] [place], [place], [id number] DIAG Comment Normal . [facility] Comment on above: Order Comment: Speci men Comment: [id number] Comment: Source.............CervixSpecimen Comment: Other..............Post MenopausalSpecimen Comment: No. of containers..01 ThinPrep Vial Result Comment: NEGA TIVE FOR INTRAEPITHELIAL LESION OR MALIGNANCY. CELLULAR CHANGES ASSOCIATED WITH ATROPHY ARE PRESENT. Performed By: #### L 503.6030 #### [facility] [address] [place], [place], [id number] HPV RFLX Comment Normal . [facility] Comment on above: Order Comment: Speci men Comment: [id number] Comment: Source.............CervixSpecimen Comment: Other..............Post MenopausalSpecimen Comment: No. of containers..01 ThinPrep Vial Result Comment: The HPV DNA reflex criteria were not met with this specimen result therefore, no HPV testing was performed. Performed at: [address] [place] [id number] Bull Wheel Worker: Micaela Gutierrez MD, Phone: [phone] Performed By: #### L 503.6030 #### [facility] [address] [place], [place], [phone] PAPSMR Comment Normal . [facility] Comment on above: Order Comment: Speci men Comment: [id number] Comment: Source.............CervixSpecimen Comment: Other..............Post MenopausalSpecimen Comment: No. of containers..01 ThinPrep Vial Result Comment: The Pap smear is a screening test designed to aid in the detection of premalignant and malignant conditions of the uterine cervix. It is not a diagnostic procedure and should not be used as the sole means of detecting cervical cancer. Both false-positive and false-negative reports do occur. Performed By: #### L 503.6030 #### [facility] [address] [place], [place], [id number] PERFORM Comment Normal . [facility] Comment on above: Order Comment: Speci men Comment: [id number] Comment: Source.............CervixSpecimen Comment: Other..............Post MenopausalSpecimen Comment: No. of containers..01 ThinPrep Vial Result Comment: Marilynn Hobson Strategic Sourcing Manager Performed By: #### L 503.6030 #### [facility] [address] [facility] [place], [place], [id number] SCRN MAMM (CAD)W/MIRIAN BILATo n 09-21-2024 SCRN MAMM (CAD)W/MIRIAN BILAT [facility] Imaging Services [address] [place], [place] [address] SCRN MAMM (CAD)W/MIRIAN BILAT MR#: [id number] Acct: [id number] Name: JANESSA BARON Rep #: [id number] : 1950 F 74 From: Natalia Morris MD PCP: Dr. Kali Bacon MD Status: REG CLI Study: SCRN MAMM (CAD)W/MIRIAN BILAT Date of Exam: 02/07 Exam# [id number] Ordering Dr: Chanda Sanz NP, NP -C PROCEDURE: SCRN MAMM (CAD)W/MIRIAN BILAT REASON [...] of the results by letter. Reading [facility] CC: SHANKAR Sanz; Dr. Kali Bacon MD 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: Signed [facility] Office Visit (FAMMAS ) ----- JANESSA BARON ([id number]) 1950 F Date Time Provider Department 09/20/24 [...] Lincomycin Rash Pseudoephedrine Hives Reglan [Metoclopram* Intolerance Vbunplj-Kkd-Zka Red* Unknown Other reaction(s): Other Tequin [Gatifloxaci* [...] Take 1 tabl (more content not included)... [facility] Pathology biopsy report Lorenzo (Tiss)on 09-20-2024 CASE REPORT [facility] Comment on above: Order Comment: Speci men Type: TISSUE SPECIMENOrdering Facility: [facility] Address: [address] [place] [address] Result Comment: [facility] Pathology Report Case: [id number] Authorizing Provider: Kali Bacon MD Collected: 09/20/2024 01:35 PM Ordering Location: [facility] Received: 09/21/2024 07:58 AM [facility] [place] Pathologist: Wanda Gonsalves MD Specimen: Skin, Punch Biopsy, Left shoulder punch biopsy Performed By: #### 6 6121-5 ####[facility]ORY[facility] [id number] [address] CLINICAL HISTORY Suspicious mole, lef t shoulder Normal [facility] Comment on above: Order Comment: Speci men Type: TISSUE SPECIMENOrdering Facility: [facility] Address: [address] [place] [address] Performed By: #### 6 6121-5 ####[facility]ATORYCLIA [id number] [address] DIAGNOSIS COMMENT Repeat sampling from a more viable tissue from the periphery of the lesion with adjacent uninvolved skin may be recommended, if clinically indicated. Clinical correlation is required. [facility] Comment on above: Order Comment: Speci men Type: TISSUE SPECIMENOrdering Facility: [facility] Address: [address] [place] [address] Performed By: #### 6 6121-5 ####[facility]ORYCLIA [id number] [address] FINAL DIAGNOSIS [facility] Comment on above: Order Comment: Speci men Type: TISSUE SPECIMENOrdering Facility: [facility] Address: [address] [place] [address] Result Comment: A. L eft shoulder, punch biopsy: - Punch biopsy of skin showing completely ulcerated and necrotic epidermis with marked acute inflammation. Performed By: #### 6 6121-5 ####[facility]ORYCLIA [id number] [address] [place] FINAL PERFORMING LAB [facility] Comment on above: Order Comment: Speci men Type: TISSUE SPECIMENOrdering Facility: [facility] Address: [address] [place] [address] Result Comment: Diag nostic interpretation performed at: [facility], [address] [place] [address] CLIA# [id number] Straight Line Press Setter: Wanda Gonsalves MD Performed By: #### 6 6121-5 ####[facility]ORYCLIA [id number] [address] GROSS DESCRIPTION [facility] Comment on above: Order Comment: Speci men Type: TISSUE SPECIMENOrdering Facility: [facility] Address: [address] [place] [address] Result Comment: A. S kin, Punch Biopsy Received in formalin is a cylindrical segment of skin and subcutaneous tissue measuring 0.7 x 0.4 x 0.3 cm. The specimen is bisected. Totally submitted in one cassette. [place] [address] JXM 09/21/24 10:02 AM Performed By: #### 6 6121-5 ####[facility]ORYCLIA [id number] [address] MICROSCOPIC DESCRIPTION [facility] Comment on above: Order Comment: Speci men Type: TISSUE SPECIMENOrdering Facility: [facility] Address: [address] [place] [address] Result Comment: Two H&E stained slides are examined. Intradepartmental consultation with Dr. Saman Bryant. Performed By: #### 6 6121-5 ####[facility]ATORYCLIA [id number] [address] [place] [employer] Teacher Cyto stain Nom (C vx/Vag) [ID]Ordered By: Chanda Sanz on 09-18-2024 Pap Smear Performed By [facility] . [facility] Comment on above: Jamari Marte totechnologist Cytology report Cyto stain D oc (Cvx/Vag)Ordered By: Chanda Sanz on 09-18-2024 Thin Prep Pap Smear Comment . [facility] Comment on above: The Pap smear is a s creening test designed to aid in thedetection of premalignant and malignant conditions of theuterine cervix. It is not a diagnostic procedure andshould not be used as the sole means of detecting cervicalcancer. Both false-positive and false-negative reports dooccur. Image-guided ThinPrep PapOrd ered By: Chanda Sanz on 09-18-2024 Pap Smear Note Comment . [facility] Comment on above: This liquid based Th inPrep(R) pap test was screened withthe use of an image guided system. Image-guided liquid-based Pa pOrdered By: Chanda Sanz on 09-18-2024 Pap Smear Diagnosis Comment . [facility] Comment on above: NEGATIVE FOR INTRAEP ITHELIAL LESION OR MALIGNANCY.CELLULAR CHANGES ASSOCIATED WITH ATROPHY ARE PRESENT. Image-guided liquid-based ce rvical Pap w high-risk HPV+reflex to HPV 16+18Ordered By: Chanda Sanz on 09-18-2024 Human Papillomavirus Screen Comment . [facility] Comment on above: The HPV DNA reflex c danelle were not met with this specimenresult therefore, no HPV testing was performed.Performed at: [facility] [id number] Director: Micaela Gutierrez MD, Phone: [phone] Laboratory - Chemistry and C hemistry - challengeOrdered By: Chanda Sanz on 09-18-2024 Bilirubin Ql (U) Negative [facility] Glucose Ql (U) 1000 g/dL [facility] Ketones Ql (U) Negative [facility] pH (U) 5.0 [pH] [facility] Specific gravity (U) [Rel density] 1.005 [facility] Urobilinogen (U) [Mass/Vol] Negative [facility] Laboratory - Hematology and Cell countsOrdered By: Chanda Sanz on 09-18-2024 Hemoglobin Ql (U) Negative [facility] Laboratory - Specimen inform ationOrdered By: Chanda Sanz on 09-18-2024 Clarity (U) Clear [facility] Color (U) Yellow [facility] Laboratory - UrinalysisOrder ed By: Chanda Sanz on 09-18-2024 Nitrite Ql (U) Negative [facility] Protein Ql (U) Negative [facility] No Panel InformationOrdered By: Chanda Sanz on 09-18-2024 Urine Leukocytes Negatve [facility] Urine Non-Hemolyzed Blood Negative 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 Normal [facility] Service comment (Unsp spec) [Interp]Ordered By: Chanda Sanz on 09-18-2024 Pap Smear Comment (3) . . [facility] CNOVon 09-16-2024 CNOV Office Visit (UCWSTR ) ----- JANESSA BARON ([id number]) 1950 F Date Time Provider Department 09/16/24 9:00 AM [facility] During your visit today, we recorded the [...] a day with meals. blood sugar diagnostic (Card IsleUCH ULTRA TEST) test strip Monitor blood sugar [...] 1 Dose once daily. lancets (ONE TOUCH Visible World) 33 gauge 1 Each once daily. blood sugar diagnostic (Card IsleUCH ULTRA TEST) test strip 1 Strip before [...] Lincomycin Rash Pseudoephedrine Hives Reglan [Metoclopram* Intolerance Xseycok-Erb-Qpg Red* Unknown Other reaction(s): Other Tequin [Gatifloxaci* [...] need t (more content not included)... Normal [facility] COVID AND INFLUENZA A/B AND RSV PCR, ROUTINEon 09-16-2024 SARS-CoV-2 (COVID-19) RNA CLAUDIA+probe Ql (Unsp spec) SARS-COV-2 (AGENT OF COVID-19) RNA: Not detected INFLUENZA A RNA: Not detected INFLUENZA B RNA: Not detected RESPIRATORY SYNCYTIAL VIRUS (RSV) RNA: Not detected Normal [facility] Comment on above: Performed By: #### C VFS ####[facility] LABIA [id number] [address] [place] CNPTrish 09-15-2024 CNPN Telephone ([facility]) ----- JANESSA BARON ([id number]) 1950 F Date Time Provider Department 09/15/24 HALIE JIN During your visit today, we recorded the following information about you: Vahe Merino 09/15/2024 2:04 PM Signed 11-15-2024 Colon EGD Justice Provider went over [...] REGLAN (METOCLOPRAMIDE HCL) 04/27/2018 5 - Intolerance PXQFBQD-OUX-MFV REDUCTASE INHIBIT*01/31/2017 16 - Unknown Comments: Other reaction(s): Other TEQUIN (GATIFLOXACIN) 04/27/2018 2 - Rash DOXYCYCLINE 11/28/2018 16 - Unknown 11 - Vomiting Date Reviewed: 09/14/2024 Reviewed by: Halie Jin APRN.LAST SAWYER - Fully Assessed Reason for Visit: 11-15-2024 [...] day with meals. - blood sugar diagnostic (NewsMaven ULTRA TEST) test strip Monitor blood sugar [...] 11/23/2018 Abnormal (more content not included)... [facility] ) ----- JANESSA BARON ([id number]) 1950 F Date Time Provider Department 09/14/24 9:00 AM HALIE JINS During your visit today, we recorded the following information about you: Pulse Blood pressure Weight 89/minute 119/72 88.9 kg Halie Jin, PATRICIA.LAST SAWYER 09/14/2024 9:46 AM Signed HISTORY AND PHYSICAL Janessa Baron : 1950 REFERRING PHYSICIAN: Fanny Barron [address] [facility] [address] CHIEF COMPLAINT: Patient presents with: colon consult [...] colonoscopy was 04/[address] Edgar at [facility]. Sedation:Fentanyl 100 micrograms IV, Midazolam 5 mg IV Impression: - The entire examined colon is normal. Biopsied. Last EGD was at [facility] with Dr. Arredondo 01/2023. Sedation: MAC Impression: [...] a day with meals. blood sugar diagnostic (WaveTech EnginesTOUCH ULTRA TEST) test strip Monitor blood sugar [...] facility-administered m (more content not included)... Normal [facility] Yadiel 09-13-2024 CHEVY Telephone (MiprotoS) ----- JANESSA BARON ([id number]) 1950 F Date Time Provider Department 09/13/24 KALI BACON During your visit today, we [...] REGLAN (METOCLOPRAMIDE HCL) 04/27/2018 5 - Intolerance SCZWUKP-IHS-EBJ REDUCTASE INHIBIT*01/31/2017 16 - Unknown Comments: Other [...] day with meals. - blood sugar diagnostic (Card IsleUCH ULTRA TEST) test strip Monitor blood sugar [...] Each once daily. - blood sugar diagnostic (WaveTech EnginesTOUCH ULTRA TEST) test strip 1 Strip before [...] [N32.81] 05 (more content not included)... Normal [facility] Cardiology Visit Reporton Cardiology Visit Report [facility] [address] [place] [address] OFFICE VISIT Date of Service: 09/06/24 MR#: [id number] Acct: [id number] Name: JANESSA BARON Rep #: [id number] : 1950 Provider: INDU Lan Age/Sex: 74/F Location[facility] Status: Signed HPI HPI History of Present [...] to her arm when she walks around [facility]. Her last lipid profile demonstrated total [...] circumflex and a totally occluded RCA with crtn-ks-xlrjk collaterals with disease noted in the proximal and mid LAD and proximal circumflex. Patient was recommended for surgical consult for coronary revascularization. On November 26, 2022 at [facility], she underwent bypass surgery with [...] sodium 100 m (more content not included)... Normal [facility] BD DXA - AXIAL SKELETONon BD DXA [...] years, Gender: Female SCANNER INFORMATION: DXA Model: Flatter World Mobile B - Ovelin Horizon [id number] Date Scanned: 09/05/2024 2:50 PM CLINICAL HISTORY: [...] had a previous bone density in the [facility] or the previous bone density was performed on a different DXA machine (new, updated model or different location) within the [facility]. VERTEBRAL FRACTURE ASSESSMENT Not performed. TRABECULAR BONE [...] MORE INFORMATION ABOUT DIAGNOSIS AND TREATMENT: [facility] for Osteoporosis and Metabolic Bone Disease:? www.ccf.org/arthritis/ost eo National Osteoporosis Foundation:? www.nof.org International Society of Clinical Densitometry www.iscd.org 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: [place] Transcribe Date/Time: Sep 05 2024 3:20P Dictated by : CAIT MACIAS MD This examination was interpreted and the report reviewed and electronically signed by: CAIT MACIAS MD on Sep 05 2024 3:26PM EST [id number] -2.6 [facility] CNOVSPon 09-05-2024 CNOVSP Visit (SP) Office (HEMAWS) ----- JANESSA BARON ([id number]) 1950 F Date Time Provider Department 09/05/24 10:30 AM FANNY BARRON During your visit today, we recorded the following information about you: Temperature Pulse Blood pressure Weight 98.7 degrees 92/minute 159/75 91.9 kg Height 1.58 m Fanny Barron 09/06/2024 1:37 PM Signed Progress Note Janessa Bravo Loraine 1950 Encounter date: 09/05/2024 HPI: Janessa Baron [...] taking: Reported (more content not included)... Normal [facility] DXA Skeletal system.axial Vi ews for bone densityOrdered By: Ccf Provider on 09-05-2024 LOWEST T-SCORE -2.6 [facility] DXA Skeletal system.axial Vi ews for bone [...] MORE INFORMATION ABOUT DIAGNOSIS AND TREATMENT: [facility] Osteoporosis and Metabolic Bone Disease:? www.ccf.org/arthritis/ost eo National Osteoporosis Foundation:? www.nof.org International Society of Clinical Densitometry www.iscd.org 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: [place] Transcribe Date/Time: Sep 05 2024 3:20P Dictated by : CAIT MACIAS MD This examination was interpreted and the report reviewed and electronically signed by: CAIT MACIAS MD on Sep 05 2024 3:26PM [facility] * * *Final Report* * * DATE OF EXAM: Sep 05 2024 2:50PM RMB 0804 - BD DXA - AXIAL SKELETON B / PROCEDURE REASON: M81.0 * * * * Physician Interpretation * * * * EXAMINATION: DXA BONE DENSITOMETRY BD DXA - AXIAL SKELETON PATIENT DEMOGRAPHICS: Age: 74 years, Gender: Female SCANNER INFORMATION: DXA Model: Flatter World Mobile B - Hologic Horizon [id number] Date Scanned: 09/05/2024 2:50 PM CLINICAL HISTORY: [...] had a previous bone density in the [facility] or the previous bone density was performed on a different DXA machine (new, updated model or different location) within the [facility]. VERTEBRAL FRACTURE ASSESSMENT Not performed. TRABECULAR BONE ASSESSMENT TBS not performed: not ordered [facility] Provider, Dee Augustin - 09/05/2024 * * *Final Report* * * DATE OF EXAM: Sep 05 2024 2:50PM RMB 0804 - BD DXA - AXIAL SKELETON B / PROCEDURE REASON: M81.0 * * * * Physician Interpretation * * * * EXAMINATION: DXA BONE DENSITOMETRY BD DXA - AXIAL SKELETON PATIENT DEMOGRAPHICS: Age: 74 years, Gender: Female SCANNER INFORMATION: DXA Model: Flatter World Mobile B - Hologic Horizon [id number] Date Scanned: 09/05/2024 2:50 PM CLINICAL HISTORY: [...] had a previous bone density in the [facility] or the previous bone density was performed on a different DXA machine (new, updated model or different location) within the [facility]. VERTEBRAL FRACTURE ASSESSMENT Not performed. TRABECULAR BONE [...] MORE INFORMATION ABOUT DIAGNOSIS AND TREATMENT: [facility] for Osteoporosis and Metabolic Bone Disease:? www.ccf.org/arthritis/ost eo National Osteoporosis Foundation:? www.nof.org International Society of Clinical Densitometry www.iscd.org 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: [place] Transcribe Date/Time: Sep 05 2024 3:20P Dictated by : CAIT MACIAS MD This examination was interpreted and the report reviewed and electronically signed by: CAIT MACIAS MD on Sep 05 2024 3:26PM EST [facility] Radiology Study observation (narrative) [facility] CNOVon 09-04-2024 [facility]OV [facility] ----- JANESSA BARON ([id number]) 1950 F Date Time Provider Department 09/04/24 3:10 PM KALI BACON During your visit today, we recorded the following information about you: Temperature Pulse Respiration Blood pressure 96.9 degrees 98/minute 18/minute 128/80 Weight Height 90.7 kg 1.6 m Kail Bacon MD 09/04/2024 2:34 PM Signed Subjective Janessa [...] Lincomycin Rash Pseudoephedrine Hives Reglan [Metoclopram* Intolerance Pluzeet-Kes-Kll Red* Unknown Other reaction(s): Other Tequin [Gatifloxaci* [...] a day with meals. blood sugar diagnostic (WaveTech EnginesTOUCH ULTRA TEST) test strip Monitor blood sugar [...] 1 Each once daily. blood sugar diagnostic (WaveTech EnginesTOUCH ULTRA TEST) test strip 1 Strip before [...] reviewed and verified. (more content not included)... [facility] Bacteria Ur Culton 5 Bacteria identified [...] , Intermediate >32 , Resistant >64 Abnormal [facility] Comment on above: Performed By: #### 6 30-4 ####[facility] LABCLIA [id number] [place] [id number] [place] CNOVon 09-03-2024 CNOV Office Visit (UCWSTR ) ----- JANESSA BARON ([id number]) 1950 F Date Time Provider Department 09/03/24 8:15 AM MIKE CHANEL WSTR During your visit today, we recorded the following information about you: Temperature Pulse Respiration Blood pressure 98.4 degrees 94/minute 20/minute 153/69 Weight 91 kg Mike Chanel PA 09/03/2024 8:36 AM Signed This note was created using NoteWriter. Subjective [...] Dye [Iodine], Lincomycin, Pseudoephedrine, Reglan [Metoclopramide Hcl], Ebkckzb-Tzp-Oqv Reductase Inhibitors, Tequin [Gatifloxacin], and Doxycycline MEDICATIONS albuterol (PROVENTIL) 2.5 mg /3 mL (0.083 %) nebulizer solution INHALE WITH 1 VIAL IN NEBULIZER EVERY SIX HOURS NEEDED rosuvastatin (CRESTOR) 10 mg tablet Take 1 tablet by mouth daily at bedtime. metFORMIN (GLUCOPHAGE) 500 mg tablet Take 2 tablets by mouth two times a day with meals. blood sugar diagnostic (NewsMaven ULTRA TEST) test strip Monitor blood sugar [...] Pulmonary: E (more content not included)... Normal [facility] UA DIP, URINE (POC)on 2024 BILIRUBIN UA (POCT) Negative Negative [facility] CLARITY UA (POCT) Turbid [facility] COLOR UA (POCT) Yellow [facility] GLUCOSE UA (POCT) Negative Negative mg/dL [facility] Hemoglobin Ql (U) Trace-intact Abnormal Negative [facility] Interpretation and review of laboratory results Abnormal [facility] KETONE UA (POCT) Negative Negative mg/dL [facility] LEUKOCYTES UA (POCT) Small Abnormal Negative [facility] NITR[facility] (POCT) Negative Negative [facility] PH UA (POCT) 5.5 4.5 - 8.0 [facility] Protein Ql (U) Negative Negative mg/dL [facility] SPECIFIC GRAVITY UA (POCT) 1.010 1.005 - 1.030 [facility] UROBILINOGEN UA (POCT) 0.2 Normal E.U./dL [facility] Location:[address], [place], [place], [address] [place] [address] POINT OF CARE [facility] Hepatitis A AB, Totalon 08-16 HEPATITIS A,TOT Negative Normal Negative [facility] Comment on above: Result Comment: Comm ent: The HAV total antibody assay detects both IgG and IgM but does not differentiate between them. A negative result suggests susceptibility to infection. A positive result could be due to vaccination, previously resolved infection or active infection. Testing for HAV IgM should be performed if active HAV infection is suspected. [facility] offers profiles that will automatically reflex positive HAV total antibody results to IgM (e.g., panel #[id number] HAV Antibody w/ Rfx). Performed at: [address] [id number] [place] Worker: Guero Dawson PhD, Phone: [phone] Performed By: #### L 503.6030 #### [facility] Laboratory [address] [place], [place], [id number] MRSA/SAID NASAL SCREENon MRSA+SAID SCRN Reason for Exam: Ellen angely MRSA MRSA Negative S. AUREUS S. aureus Negative Normal [facility] Comment on above: Performed By: #### L 503.6030 #### [facility] [address] [place], [address] Absolute neutrophil countOrd ered By: Dominic Issa on 08-31-2024 Neutrophils (Bld) [#/Vol] 7.1 10*3/uL 2.0-7.7 [facility] Basic Metabolic Profile (BMP )on 08-31-2024 BUN/CRE 30.0 RATIO High 10-20 [facility] Comment on above: Performed By: #### L 691.6030 #### [facility] Laboratory [address] [place], [address] CA,Total 9.5 mg/dL Normal 8.5-10.1 [facility] Comment on above: Performed By: #### L 503.6030 #### [facility] Laboratory [address] [place], [address] Chloride [Moles/Vol] 97 mmol/L Low 98-107 [facility] Comment on above: Performed By: #### L [id number] #### [facility] Laboratory [address] [place], [address] CO2 [Moles/Vol] 26.0 mmol/L Normal 21.0-32.0 [facility] Comment on above: Performed By: #### L 896.6030 #### [facility] Laboratory [address] [place], [address] Creatinine [Mass/Vol] 0.90 mg/dL Normal 0.55-1.02 [facility] Comment on above: Result Comment: The validity of the calculated GFR GFRAA in patients over 70 years has not been determined. Clinical correlation is essential. Performed By: #### L 661.6030 #### [facility] [address] [place], [address] EST GFR - AA 79 mL/min Normal >60 [facility] Comment on above: Result Comment: Afri can [facility] GFR Calc Performed By: #### L 416.3630 #### [facility] Laboratory [address] [place], [address] GAP 9 Normal 5-15 [facility] Comment on above: Performed By: #### L 403.6030 #### [facility] Laboratory [address] [place], [address] GFR/1.73 sq M.predicted among non-blacks MDRD (S/P/Bld) [Vol rate/Area] 65 mL/min/{1.73_m2} Normal >60 [facility] Comment on above: Result Comment: Non- GFR Calc Performed By: #### L 503.6030 #### [facility] Laboratory [address] [place], [address] Glucose [Mass/Vol] 163 mg/dL High 74-106 [facility] Comment on above: Result Comment: Fast ing Glucose result greater than or equal to 126 mg/dL suggests DIABETES MELLITUS per A.D.A. criteria. Performed By: #### L 503.6030 #### [facility] [address] [place], [address] Potassium [Moles/Vol] 3.7 mmol/L Normal 3.5-5.1 [facility] Comment on above: Performed By: #### L 503.6030 #### [facility] [address] [place], [address] Sodium [Moles/Vol] 132 mmol/L Low 136-145 [facility] Comment on above: Performed By: #### L 503.6030 #### [facility] [address] [place], [address] Urea nitrogen [Mass/Vol] 27 mg/dL High 7-18 [facility] Comment on above: Performed By: #### L 503.6030 #### [facility] Laboratory [address] [place], [address] Basophil percentageOrdered B y: Dominic Issa on 08-31-2024 Basophils/100 WBC (Bld) 0.5 % 0-1 [facility] Blood urea nitrogen (BUN)/cr eatinine ratioOrdered By: Dominic Issa on 08-31-2024 Urea nitrogen/Creatinine [Mass ratio] 30.0 mg/mg High 10-20 [facility] CBC W/Diff, Automatedon 01-08 21-2024 Absolute Lymph 2.62 X10 3/uL Normal 0.83-4.51 [facility] Comment on above: Performed By: #### L 3890.6200, L3100.0300, L100.0100, M100.651, L3890.6005, BTSPAT, L500.2500, L3890.6300 #### [facility] Laboratory [address] [place], [address] Absolute Neut 7.1 X10 3/uL Normal 2.0-7.7 [facility] Comment on above: Performed By: #### L 3890.6200, L3100.0300, L100.0100, M100.651, L3890.6005, BTSPAT, L500.2500, L3890.6300 #### [facility] Laboratory [address] [place], [address] Basophils/100 WBC (Bld) 0.5 % Normal 0-1 [facility] Comment on above: Performed By: #### L 3890.6200, L3100.0300, L100.0100, M100.651, L3890.6005, BTSPAT, L500.2500, L3890.6300 #### [facility] Laboratory [address] [place], [address] Eosinophils/100 WBC (Bld) 1.7 % Normal 0-5 [facility] Comment on above: Performed By: #### L 3890.6200, L3100.0300, L100.0100, M100.651, L3890.6005, BTSPAT, L500.2500, L3890.6300 #### [facility] Laboratory [address] [place], [address] Erythrocyte distribution width (RBC) [Ratio] 16.6 % High 11.6-14.6 [facility] Comment on above: Performed By: #### L 3890.6200, L3100.0300, L100.0100, M100.651, L3890.6005, BTSPAT, L500.2500, L3890.6300 #### [facility] Laboratory [address] [place], [address] Hematocrit (Bld) [Volume fraction] 32.5 % Low 37-47 [facility] Comment on above: Performed By: #### L 3890.6200, L3100.0300, L100.0100, M100.651, L3890.6005, BTSPAT, L500.2500, L3890.6300 #### [facility] Laboratory [address] [place], [address] Hemoglobin (Bld) [Mass/Vol] 9.4 g/dL Low 12.0-15.0 [facility] Comment on above: Performed By: #### L 3890.6200, L3100.0300, L100.0100, M100.651, L3890.6005, BTSPAT, L500.2500, L3890.6300 #### [facility] Laboratory [address] [place], [address] IG% 0.400 Normal 0.0-0.9 [facility] Comment on above: Result Comment: IG% - Immature Granulocytes (promyelocytes, myelocytes and metamyelocytes) > 1% indicates that a LEFT SHIFT is Present. Performed By: #### L 3890.6200, L3100.0300, L100.0100, M100.651, L3890.6005, BTSPAT, L500.2500, L3890.6300 #### [facility] Laboratory [address] [place], [address] Lymphocytes/100 WBC (Bld) 24.1 % Normal 19-41 [facility] Comment on above: Performed By: #### L 3890.6200, L3100.0300, L100.0100, M100.651, L3890.6005, BTSPAT, L500.2500, L3890.6300 #### [facility] Laboratory [address] [place], [address] MCH (RBC) [Entitic mass] 20.4 pg Low 27.0-32.0 [facility] Comment on above: Performed By: #### L 3890.6200, L3100.0300, L100.0100, M100.651, L3890.6005, BTSPAT, L500.2500, L3890.6300 #### [facility] Laboratory [address] [place], [address] MCHC (RBC) [Mass/Vol] 28.9 g/dL Low 32-36 [facility] Comment on above: Performed By: #### L 3890.6200, L3100.0300, L100.0100, M100.651, L3890.6005, BTSPAT, L500.2500, L3890.6300 #### [facility] Laboratory [address] [place], [address] MCV (RBC) [Entitic vol] 70.7 fL Low 81-99 [facility] Comment on above: Performed By: #### L 3890.6200, L3100.0300, L100.0100, M100.651, L3890.6005, BTSPAT, L500.2500, L3890.6300 #### [facility] Laboratory [address] [place], [address] Monocytes/100 WBC (Bld) 7.9 % Normal 0-10 [facility] Comment on above: Performed By: #### L 3890.6200, L3100.0300, L100.0100, M100.651, L3890.6005, BTSPAT, L500.2500, L3890.6300 #### [facility] Laboratory [address] [place], [address] Neutrophils/100 WBC (Bld) 65.4 % Normal 47-70 [facility] Comment on above: Performed By: #### L 3890.6200, L3100.0300, L100.0100, M100.651, L3890.6005, BTSPAT, L500.2500, L3890.6300 #### [facility] Laboratory [address] [place], [address] Nucleated RBC (Bld) [#/Vol] 0 10*3/uL Normal 0-5 [facility] Comment on above: Performed By: #### L 3890.6200, L3100.0300, L100.0100, M100.651, L3890.6005, BTSPAT, L500.2500, L3890.6300 #### [facility] Laboratory [address] [place], [address] Platelet mean volume (Bld) [Entitic vol] 9.2 fL Normal 6.2-12.0 [facility] Comment on above: Performed By: #### L 3890.6200, L3100.0300, L100.0100, M100.651, L3890.6005, BTSPAT, L500.2500, L3890.6300 #### [facility] Laboratory [address] [place], [address] Platelets (Bld) [#/Vol] 517 10*3/uL High 150-450 [facility] Comment on above: Performed By: #### L 3890.6200, L3100.0300, L100.0100, M100.651, L3890.6005, BTSPAT, L500.2500, L3890.6300 #### [facility] Laboratory [address] [place], [address] RBC (Bld) [#/Vol] 4.60 10*6/uL Normal 4.2-5.4 [facility] Comment on above: Performed By: #### L 3890.6200, L3100.0300, L100.0100, M100.651, L3890.6005, BTSPAT, L500.2500, L3890.6300 #### [facility] Laboratory [address] [place], [address] RDW SD 41.8 fl Normal 35.1-43.9 [facility] Comment on above: Performed By: #### L 3890.6200, L3100.0300, L100.0100, M100.651, L3890.6005, BTSPAT, L500.2500, L3890.6300 #### [facility] Laboratory [address] [place], [address] WBC (Bld) [#/Vol] 10.9 10*3/uL Normal 4.4-11.0 [facility] Comment on above: Performed By: #### L 3890.6200, L3100.0300, L100.0100, M100.651, L3890.6005, BTSPAT, L500.2500, L3890.6300 #### [facility] Laboratory [address] [place], [address] Carbon dioxide measurementOr dered By: Dominic Issa on 08-31-2024 CO2 [Moles/Vol] 26.0 mmol/L 21.0-32.0 [facility] Chloride measurementOrdered By: Dominic Issa on 08-31-2024 Chloride [Moles/Vol] 97 mmol/L Low 98-107 [facility] Eosinophil percentageOrdered By: Dominic Issa on 08-31-2024 Eosinophils/100 WBC (Bld) 1.7 % 0-5 [facility] Erythrocyte distribution wid th ratioOrdered By: Dominic Issa on 08-31-2024 Erythrocyte distribution width (RBC) [Ratio] 16.6 % High 11.6-14.6 [facility] Erythrocyte distribution wid th standard deviationOrdered By: Dominic Issa on 08-31-2024 Erythrocyte distribution width (RBC) [Entitic vol] 41.8 fL 35.1-43.9 [facility] Estimated glomerular filtrat ion rate (GFR) AmericanOrdered By: Dominic Issa on 08-31-2024 Estimated GFR (MDRD) Amer 79 mL/min >60 [facility] Comment on above: GFR Calc Glomerular filtration rate ( GFR) estimationOrdered By: Dominic Issa on 08-31-2024 Estimated GFR (MDRD) Non-Af Amer 65 mL/min >60 [facility] Comment on above: Non- GFR Calc Glucose measurementOrdered B y: Dominic Issa on 08-31-2024 Glucose [Mass/Vol] 163 mg/dL High 74-106 [facility] Comment on above: Fasting Glucose resu lt greater than or equal to 126 mg/dL suggests DIABETES MELLITUS per A.D.A. criteria. HBV surface IgG Ql (S)Ordere d By: Dominic Issa on 08-31-2024 Hepatitis B Surface Antibody Reactive [facility] Comment on above: Non Reactive: Incons istent with immunity less than <10 mIU/mL Reactive: Consistent with immunity greater than or equal to 10 mIU/mL HIV - WCHon 08-31-2024 HIV Non-Reactive Normal Nonreactive [facility] Comment on above: Order Comment: Reaso n for Exam: PREOP Performed By: #### L 503.6020 #### [facility] Laboratory [address] [place], [address] HIV 1+2 Ab+HIV1 p24 Ag IA Ql Ordered By: Dominic Isas on 08-31-2024 HIV (1&2) Antibody Non-Reactive Nonreactive [facility] Hematocrit Auto (Bld) [Volum e fraction]Ordered By: Dominic Issa on 08-31-2024 Hematocrit (Bld) [Volume fraction] 32.5 % Low 37-47 [facility] Hemoglobin A1con 08-31-2024 HbA1c (Bld) [Mass fraction] 7.7 % High 3.8-5.6 [facility] Comment on above: Result Comment: Norm al < 5.7 % Prediabetic 5.7 - 6.4 % Diabetic >or= 6.5 % Please note range changes. Performed By: #### L 300.4310, L501.5200, L300.3900, L501.9985 #### [facility] Laboratory [address] [place], [address] Hemoglobin A1c percentageOrd ered By: Alexx Felder on 08-31-2024 HbA1c (Bld) [Mass fraction] 7.7 % High 3.8-5.6 [facility] Comment on above: Normal < 5.7 % Predi abetic 5.7 - 6.4 % Diabetic >or= 6.5 % Please note range changes. Hemoglobin measurementOrdere d By: Dominic Issa on 08-31-2024 Hemoglobin (Bld) [Mass/Vol] 9.4 g/dL Low 12.0-15.0 [facility] Hepatitis A virus total anti body assayOrdered By: Dominic Issa on 08-31-2024 Hepatitis A Antibody Total Negative Negative [facility] Comment on above: Comment: The HAV tot [...] HAVtotal antibody results to IgM (e.g., panel #[id number] HAVAntibody w/ Rfx).Performed at: [facility] [id number] Director: Guero Dawson PhD, Phone: [phone] Hepatitis B Surface Antibody on 08-31-2024 HEP B Surf Ab Reactive Normal [facility] Comment on above: Order Comment: Reaso n for Exam: PREOP Result Comment: Non Reactive: Inconsistent with immunity less than <10 mIU/mL Reactive: Consistent with immunity greater than or equal to 10 mIU/mL Performed By: #### L 503.6030 #### [facility] Laboratory [address] [place], [address] Hepatitis C Antibodyon 08-31 Hepatitis C AB Non-Reactive Normal Nonreactive [facility] Comment on above: Order Comment: Reaso n for Exam: PREOP Result Comment: Non Reactive: < 0.8 Equivocal: >/= 0.8 to < 1.0 Reactive: >/= 1.0 The CDC requires that a reactive/equivocal HCV antibody result be sent out for confirmation. HCV Quant by PCR testing. Performed By: #### L 503.6030 #### [facility] Laboratory [address] [place], [address] Hepatitis C virus antibody a ssayOrdered By: Dominic Issa on 08-31-2024 Hepatitis C Antibody Non-Reactive Nonreactive [facility] Comment on above: Non Reactive: < 0.8 Equivocal: >/= 0.8 to < 1.0 Reactive: >/= 1.0The CDC requires that a reactive/equivocal HCV antibody result be sent out for confirmation. HCV Quant by PCR testing. Immature granulocytes/100 WB C Auto (Bld)Ordered By: Dominic Issa on 08-31-2024 Immature granulocytes/100 WBC (Bld) 0.400 % 0.0-0.9 [facility] Comment on above: IG% - Immature Granu locytes (promyelocytes, myelocytes and metamyelocytes) > 1% indicates that a LEFT SHIFT is Present. International normalized rat io (INR) calculationOrdered By: Alexx Felder on 08-31-2024 INR Coag (Bld) [Relative time] 1.0 {INR} [facility] Lymphocytes Auto (Unsp spec) [#/Vol]Ordered By: Dominic Issa on 08-31-2024 Lymphocytes (Bld) [#/Vol] 2.62 10*3/uL 0.83-4.51 [facility] Lymphocytes/100 WBC Auto (Un sp spec)Ordered By: Dominic Issa on 08-31-2024 Lymphocytes/100 WBC (Bld) 24.1 % 19-41 [facility] MCV (mean corpuscular volume ) determinationOrdered By: Dominic Issa on 08-31-2024 MCV (RBC) [Entitic vol] 70.7 fL Low 81-99 [facility] MRSA screenOrdered By: Andrei Issa on 08-31-2024 Nasal Screen MRSA/MSSA [facility] Nasal Screen MRSA/MSSA [facility] Magnesiumon 08-31-2024 Magnesium [Mass/Vol] 1.4 mg/dL Low 1.6-2.6 [facility] Comment on above: Performed By: #### L 300.4310, L501.5200, L300.3900, L501.9985 #### [facility] Laboratory [address] [place], [place], [address] Magnesium measurementOrdered By: Alexx Felder on 08-31-2024 Magnesium [Mass/Vol] 1.4 mg/dL Low 1.6-2.6 [facility] Mean corpuscular hemoglobin (MCH) determinationOrdered By: Dominic Issa on 08-31-2024 MCH (RBC) [Entitic mass] 20.4 pg Low 27.0-32.0 [facility] Mean corpuscular hemoglobin concentration (MCHC) determinationOrdered By: Dominic Issa on 08-31-2024 MCHC (RBC) [Mass/Vol] 28.9 g/dL Low 32-36 [facility] Mean platelet volume determi nationOrdered By: Dominic Issa on 08-31-2024 Platelet mean volume (Bld) [Entitic vol] 9.2 fL 6.2-12.0 [facility] Monocyte percentageOrdered B y: Dominic Issa on 08-31-2024 Monocytes/100 WBC (Bld) 7.9 % 0-10 [facility] Neutrophil percentageOrdered By: Dominic Issa on 08-31-2024 Neutrophils/100 WBC (Bld) 65.4 % 47-70 [facility] Nucleated red blood cell per centageOrdered By: Dominic Issa on 08-31-2024 Nucleated RBC/100 WBC (Bld) [Ratio] 0 % 0-5 [facility] Partial Thromboplast Timeon 08-31-2024 aPTT Coag (Bld) [Time] 26.8 s Normal 24.1-36.2 [facility] Comment on above: Performed By: #### L 300.4310, L501.5200, L300.3900, L501.9985 #### [facility] Laboratory [address] [place], [place], [address] Platelet countOrdered By: Ricci Issa on 08-31-2024 Platelets (Bld) [#/Vol] 517 10*3/uL High 150-450 [facility] Potassium measurementOrdered By: Dominic Issa on 08-31-2024 Potassium [Moles/Vol] 3.7 mmol/L 3.5-5.1 [facility] Prothrombin Time w/INRon INR Coag (PPP) [Relative time] 1.0 {INR} Normal [facility] Comment on above: Performed By: #### L 300.4310, L501.5200, L300.3900, L501.9985 #### [facility] Laboratory [address] [place], [address] PT Coag (PPP) [Time] 13.2 s Normal 11.7-14.9 [facility] Comment on above: Performed By: #### L 300.4310, L501.5200, L300.3900, L501.9985 #### [facility] Laboratory [address] [place], [address] Prothrombin timeOrdered By: Alexx Felder on 08-31-2024 PT Coag (PPP) [Time] 13.2 s 11.7-14.9 [facility] RBC Auto (Bld) [#/Vol]Ordere d By: Dominic Issa on 08-31-2024 RBC (Bld) [#/Vol] 4.60 10*6/uL 4.2-5.4 [facility] Serum anion gap measurementO rdered By: Dominic Issa on 08-31-2024 Anion gap [Moles/Vol] 9 mmol/L 5-15 [facility] Serum or plasma calcium sandor urement (mass/volume)Ordered By: Dominic Issa on 08-31-2024 Calcium [Mass/Vol] 9.5 mg/dL 8.5-10.1 [facility] Serum or plasma creatinine m easurement (mass/volume)Ordered By: Dominic Issa on 08-31-2024 Creatinine [Mass/Vol] 0.90 mg/dL 0.55-1.02 [facility] Comment on above: The validity of the calculated GFR & GFRAA in patients over 70 years has not been determined. Clinical correlation is essential. Serum or plasma urea nitroge n measurement (mass/volume)Ordered By: Dominic Issa on 08-31-2024 Urea nitrogen [Mass/Vol] 27 mg/dL High 7-18 [facility] Sodium levelOrdered By: Serenity Issa on 08-31-2024 Sodium [Moles/Vol] 132 mmol/L Low 136-145 [facility] Type AND Screen - PAT ONLYon 08-31-2024 ABO and Rh group Nom (Bld) Blood group A Rh(D) positive Normal [facility] Comment on above: Order Comment: Surge ry Date: 09/11/24Reason for Laboratory Test [id number] LUMBAR FUSION L4-5 Performed By: #### L 503.6030 #### [facility] Laboratory [address] [place], [address] White blood cell (WBC) count Ordered By: Dominic Issa on 08-31-2024 WBC (Bld) [#/Vol] 10.9 10*3/uL 4.4-11.0 [facility] aPTT Coag (PPP) [Time]Ordere d By: Alexx Felder on 08-31-2024 aPTT Coag (Bld) [Time] 26.8 s 24.1-36.2 [facility] CNPNon 2024 CNPN Telephone (NIKKIA) ----- JANESSA BARON ([id number]) 1950 F Date Time Provider Department 08/24/24 KALI BACON During your visit today, we [...] REGLAN (METOCLOPRAMIDE HCL) 04/27/2018 5 - Intolerance [id number]-[id number] REDUCTASE INHIBIT*01/31/2017 16 - Unknown Comments: Other [...] day with meals. - blood sugar diagnostic ([employer] ULTRA TEST) test strip Monitor blood sugar [...] Each once daily. - blood sugar diagnostic ([employer] ULTRA TEST) test strip 1 Strip before [...] Status:Closed by PATRICA SHIPLEY LAUREN on 08/24/24 [facility] Yadiel 08-22-2024 [place] Telephone (AMIRAHVollyS) ----- JANESSA BARON ([id number]) 1950 F Date Time Provider Department 08/22/24 KALI BACON During your visit today, we recorded the following information about you: Spring Shipley LPN 08/22/2024 1:34 PM Signed This nurse phoned patient to inform of Hematology and Oncology referral. Patient stated she is scheduled on 09-05-2024 for appointment. This nurse faxed transfusion order to [facility] as well. Patient notified Spring Shipley LPN [...] BY DR. JORDI Mcgowan And, please move KILN FIREMAN appointment to Fanny Barron CNP. Can be before or after she starts IRON. EBER Villarreal Melissa 2024 10:56 AM Signed Scheduled iron with patient Start email sent Rescheduled KILN FIREMAN with Fanny. Patient requested date during treatments [...] REGLAN (METOCLOPRAMIDE HCL) 04/27/2018 5 - Intolerance [id number] REDUCTASE INHIBIT*01/31/2017 16 - Unknown Comments: Other reaction(s): Other TEQUIN (GATIFLOXACIN) 04/27/2018 2 - Rash DOXYCYCLINE 11/28/2018 16 - Unknown 11 - Vomiting Date Reviewed: 08/21/2024 Reviewed by: Spring Shipley LPN - Fully Assessed Reason for Visit: Patient Update [1234] Primary Visit Diagnosis:Iron deficiency anemia, unspecified iron deficiency anemia type [D50.9] Order(s):CONSULT TO HEMATOLOGY/ONCOLOGY [19990816] Order #: [id number]: 1 FUTURE Prescriptions as of 2024 - albuterol (PROVENTIL) 2.5 mg /3 mL (0.083 %) nebulizer solution INHALE WITH 1 VIAL IN NEBULIZER EVERY SIX HOURS NEEDED - rosuvastatin (CRESTOR) 10 mg tablet Take 1 tablet by mouth daily at bedtime. - metFORMIN (GLUCOPHAGE) 500 mg tablet Take 2 tablets by mouth two times a day with meals. - blood sugar diagnostic ([employer] ULTRA TEST) test strip Monitor blood sugar [...] 50 m (more content not included)... Normal [facility] CBC W Auto Differential pane l (Bld)on 08-21-2024 Anisocytosis Ql (Bld) Present [facility] Basophils (Bld) [#/Vol] 0.00 10*3/uL [facility] Basophils/100 WBC (Bld) 0.0 % [facility] Differential cell count method Nom (Bld) Manual [facility] Eosinophils (Bld) [#/Vol] 0.45 10*3/uL [facility] Eosinophils/100 WBC (Bld) 4.0 % [facility] Erythrocyte distribution width (RBC) [Ratio] 16.4 % High 11.5 - 15.0 % [facility] Hematocrit (Bld) [Volume fraction] 31.9 % Low 36.0 - 46.0 % [facility] Hemoglobin (Bld) [Mass/Vol] 9.5 g/dL Low 11.5 - 15.5 g/dL [facility] Interpretation and review of laboratory results Abnormal [facility] Lymphocytes (Bld) [#/Vol] 4.02 10*3/uL High [facility] Lymphocytes/100 WBC (Bld) 36.0 % [facility] MCH (RBC) [Entitic mass] 21.2 pg Low 26.0 - 34.0 pg [facility] MCHC (RBC) [Mass/Vol] 29.8 g/dL Low 30.5 - 36.0 g/dL [facility] MCV (RBC) [Entitic vol] 71.0 fL Low 80.0 - 100.0 fL [facility] Monocytes (Bld) [#/Vol] 0.56 10*3/uL [facility] Monocytes/100 WBC (Bld) 5.0 % [facility] Neutrophils (Bld) [#/Vol] 6.14 10*3/uL [facility] Neutrophils/100 WBC (Bld) 55.0 % [facility] Nucleated RBC (Bld) [#/Vol] NINF [facility] Nucleated RBC/100 WBC (Bld) [Ratio] 0.0 % /100 WBC [facility] Platelet mean volume (Bld) [Entitic vol] 8.7 fL Low 9.0 - 12.7 fL [facility] Platelets (Bld) [#/Vol] 437 10*3/uL High [facility] Platelets Estimate (Bld) [#/Vol] Increased [facility] Polychromasia LM Ql (Bld) Slight [facility] RBC (Bld) [#/Vol] 4.49 10*6/uL 3.90 - 5.2 0 m/uL [facility] Red Cell Morph Reviewed: see result s of individual morphologies [facility] WBC (Bld) [#/Vol] 11.16 10*3/uL High [facility] This is an appended report. These results have been appended to a previously verified report. [facility] Anisocytosis Ql (Bld) Present Normal [facility] Comment on above: Order Comment: Speci men Type: BLOOD SPECIMENOrdering Facility: [facility] Address: [address] [place] [address] Performed By: #### 5 7021-8 ####[facility] [id number] [place] [address] [place] Basophils (Bld) [#/Vol] 0.00 10*3/uL Normal <0.11 [facility] Comment on above: Order Comment: Speci men Type: BLOOD SPECIMENOrdering Facility: [facility] Address: [address] [place] [address] Performed By: #### 5 7021-8 ####[facility] [id number] [address] [place] Basophils/100 WBC (Bld) 0.0 % Normal [facility] Comment on above: Order Comment: Speci men Type: BLOOD SPECIMENOrdering Facility: [facility] Address: [address] [place] [address] Performed By: #### 5 7021-8 ####[facility] [id number] [address] [place] Differential cell count method Nom (Bld) Manual Normal [facility] Comment on above: Order Comment: Speci men Type: BLOOD SPECIMENOrdering Facility: [facility] Address: [address] [place] [address] Performed By: #### 5 7021-8 ####[facility]ORY[facility] [id number] [place] [address] [place] Eosinophils (Bld) [#/Vol] 0.45 10*3/uL Normal <0.46 [facility] Comment on above: Order Comment: Speci men Type: BLOOD SPECIMENOrdering Facility: [facility] Address: [address] [place] [address] Performed By: #### 5 7021-8 ####[facility] [id number] [address] [place] Eosinophils/100 WBC (Bld) 4.0 % Normal [facility] Comment on above: Order Comment: Speci men Type: BLOOD SPECIMENOrdering Facility: [facility] Address: [address] [place] [address] Performed By: #### 5 7021-8 ####[facility]ORY[facility] [id number] [address] [place] Erythrocyte distribution width (RBC) [Ratio] 16.4 % High 11.5-15.0 [facility] Comment on above: Order Comment: Speci men Type: BLOOD SPECIMENOrdering Facility: [facility] Address: [address] [place] [address] Performed By: #### 5 7021-8 ####[facility]ORYCL[facility] [id number] [address] [place] Hematocrit (Bld) [Volume fraction] 31.9 % Low 36.0-46.0 [facility] Comment on above: Order Comment: Speci men Type: BLOOD SPECIMENOrdering Facility: [facility] Address: [address] [place] [address] Performed By: #### 5 7021-8 ####[facility]ORYCLIA [id number] [place] [address] [place] Hemoglobin (Bld) [Mass/Vol] 9.5 g/dL Low 11.5-15.5 [facility] Comment on above: Order Comment: Speci men Type: BLOOD SPECIMENOrdering Facility: [facility] Address: [address] [place] [address] Performed By: #### 5 7021-8 ####[facility]ATORYCLIA [id number] [place] [address] [place] Lymphocytes (Bld) [#/Vol] 4.02 10*3/uL High 1.00-4.00 [facility] Comment on above: Order Comment: Speci men Type: BLOOD SPECIMENOrdering Facility: [facility] Address: [address] [place] [address] Performed By: #### 5 7021-8 ####[facility]ATORYCLIA [id number] [place] [address] [place] Lymphocytes/100 WBC (Bld) 36.0 % Normal [facility] Comment on above: Order Comment: Speci men Type: BLOOD SPECIMENOrdering Facility: [facility] Address: [address] [place] [address] Performed By: #### 5 7021-8 ####[facility]ORYCLIA [id number] [place] [address] [place] MCH (RBC) [Entitic mass] 21.2 pg Low 26.0-34.0 [facility] Comment on above: Order Comment: Speci men Type: BLOOD SPECIMENOrdering Facility: [facility] Address: [address] [place] [address] Performed By: #### 5 7021-8 ####[facility]ATORYCLIA [id number] [place] [address] [place] MCHC (RBC) [Mass/Vol] 29.8 g/dL Low 30.5-36.0 [facility] Comment on above: Order Comment: Speci men Type: BLOOD SPECIMENOrdering Facility: [facility] Address: [address] [place] [address] Performed By: #### 5 7021-8 ####[facility]ATORYCLIA [id number] [place] [address] [place] MCV (RBC) [Entitic vol] 71.0 fL Low 80.0-100.0 [facility] Comment on above: Order Comment: Speci men Type: BLOOD SPECIMENOrdering Facility: [facility] Address: [address] [place] [address] Performed By: #### 5 7021-8 ####[facility]ORYCLIA [id number] [place] [address] [place] Monocytes (Bld) [#/Vol] 0.56 10*3/uL Normal <0.87 [facility] Comment on above: Order Comment: Speci men Type: BLOOD SPECIMENOrdering Facility: [facility] Address: [address] [place] [address] Performed By: #### 5 7021-8 ####[facility]ORYCLIA [id number] [address] [place] Monocytes/100 WBC (Bld) 5.0 % Normal [facility] Comment on above: Order Comment: Speci men Type: BLOOD SPECIMENOrdering Facility: [facility] Address: [address] [place] [address] Performed By: #### 5 7021-8 ####[facility]ATORYCLIA [id number] [place] [address] [place] Neutrophils (Bld) [#/Vol] 6.14 10*3/uL Normal 1.45-7.50 [facility] Comment on above: Order Comment: Speci men Type: BLOOD SPECIMENOrdering Facility: [facility] Address: [address] [place] [address] Performed By: #### 5 7021-8 ####[facility]ATORYCLIA [id number] [place] [address] [place] Neutrophils/100 WBC (Bld) 55.0 % Normal [facility] Comment on above: Order Comment: Speci men Type: BLOOD SPECIMENOrdering Facility: [facility] Address: [address] [place] [address] Performed By: #### 5 7021-8 ####[facility]ATORYCLIA [id number] [place] [address] [place] Nucleated RBC (Bld) [#/Vol] 10*3/uL Normal <0.01 [facility] Comment on above: Order Comment: Speci men Type: BLOOD SPECIMENOrdering Facility: [facility] Address: [address] [place] [address] Performed By: #### 5 7021-8 ####[facility]ATORYCLIA [id number] [place] [address] [place] Nucleated RBC/100 WBC (Bld) [Ratio] 0.0 /[address] [facility] Comment on above: Order Comment: Speci men Type: BLOOD SPECIMENOrdering Facility: [facility] Address: [address] [place] [address] Performed By: #### 5 7021-8 ####[facility]ATORYCLIA [id number] [place] [address] [place] Platelet mean volume (Bld) [Entitic vol] 8.7 fL Low 9.0-12.7 [facility] Comment on above: Order Comment: Speci men Type: BLOOD SPECIMENOrdering Facility: [facility] Address: [address] [place] [address] Performed By: #### 5 7021-8 ####[facility]ATORYCLIA [id number] [place] [address] [place] Platelets (Bld) [#/Vol] 437 10*3/uL High 150-400 [facility] Comment on above: Order Comment: Speci men Type: BLOOD SPECIMENOrdering Facility: [facility] Address: [address] [place] [address] Performed By: #### 5 7021-8 ####[facility]ATORYCLIA [id number] [place] [address] [facility] [place] Platelets Estimate (Bld) [#/Vol] Increased Normal [facility] Comment on above: Order Comment: Speci men Type: BLOOD SPECIMENOrdering Facility: [facility] Address: [address] [place] [address] Performed By: #### 5 7021-8 ####[facility]ATORYCLIA [id number] [address] [place] Polychromasia LM Ql (Bld) Slight Normal [facility] Comment on above: Order Comment: Speci men Type: BLOOD SPECIMENOrdering Facility: [facility] Address: [address] [place] [address] Performed By: #### 5 7021-8 ####[facility]ORYCLIA [id number] [address] [place] RBC (Bld) [#/Vol] 4.49 10*6/uL Normal 3.90-5.20 [facility] Comment on above: Order Comment: Speci men Type: BLOOD SPECIMENOrdering Facility: [facility] Address: [address] [place] [address] Performed By: #### 5 7021-8 ####[facility]ATORYCLIA [id number] [address] RED CELL MORPH Reviewed: see result s of individual morphologies Normal [facility] Comment on above: Order Comment: Speci men Type: BLOOD SPECIMENOrdering Facility: [facility] Address: [address] [place] [address] Performed By: #### 5 7021-8 ####[facility]ORYCLIA [id number] [address] [place] WBC (Bld) [#/Vol] 11.16 10*3/uL High 3.70-11.00 [facility] Comment on above: Order Comment: Speci men Type: BLOOD SPECIMENOrdering Facility: [facility] Address: [address], [place] [address] Performed By: #### 5 7021-8 ####[facility]ORATORYCLIA [id number] [place] [address] [place] CNOVon 08-21-2024 CNOV Office Visit (FAMMAS ) ----- JANESSA BARON ([id number]) 1950 F Date Time Provider Department 08/21/24 [...] Physician performing procedure is Dr. Issa of [facility]. No refills needed. Spring Shipley LPN August 21, 2024 4:32 PM Kali Bacon MD 08/22/2024 9:45 AM Signed Subjective Janessa aBron is a 73 year old female. Janessa presents today for preop clearance for upcoming back surgery. She denies any problems with anesthesia with her last procedure. Additionally she denies any current cardiovascular, pulmonary, or neurological symptoms. 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 She has appointment with cardiology on September [...] Lincomycin Rash Pseudoephedrine Hives Reglan [Metoclopram* Intolerance Crzulxi-Dir-Lhh Red* Unknown Other reaction(s): Other Tequin [Gatifloxaci* [...] a day with meals. blood sugar diagnostic (Card IsleUCH ULTRA TEST) test strip Monitor blood sugar [...] 1 Each once daily. blood sugar diagnostic (WaveTech EnginesTOUCH ULTRA TEST) test strip 1 Strip before [...] mouth. ce (more content not included)... Normal [facility] Ferritin SerPl-mCncon 2024 Ferritin [Mass/Vol] 4.9 ng/mL Low 8.0-307.0 [facility] Comment on above: Order Comment: Gadiel cisneros Type: BLOOD SPECIMENOrdering Facility: [facility] Address: [address] [place] [address] Performed By: #### 2 276-4, 84507-7 ####[facility]ATORYCLIA [id number] [place] [address] [place] Iron and Iron binding capaci ty panelon 08-21-2024 Iron [Mass/Vol] 14 ug/dL Low 50-170 [facility] Comment on above: Order Comment: Gadiel cisneros Type: BLOOD SPECIMENOrdering Facility: [facility] Address: [address] [place] [address] Result Comment: Mary Jane ents treated with metal-binding drugs (e.g.deferoxamine) may have depressed iron values, as chelated iron may not properly react in the Siemens iron assay. Performed By: #### 2 276-4, 26317-7 ####[facility]ATORYCLIA [id number] [address] Iron binding capacity [Mass/Vol] 433 ug/dL Normal 221-481 [facility] Comment on above: Order Comment: Speci amelia Type: BLOOD SPECIMENOrdering Facility: [facility] Address: [address] [place] [address] Performed By: #### 2 276-4, 61289-1 ####[facility]ATORYCLIA [id number] [address] Iron/TIBC [Molar ratio] 3.2 % Low 22.0-44.0 [facility] Comment on above: Order Comment: Speci men Type: BLOOD SPECIMENOrdering Facility: [facility] Address: [address] [place] [address] Performed By: #### 2 276-4, 82428-0 ####[facility]ORYCLIA [id number] [address] CNPNon 08-17-2024 CNPN Telephone (4CQ) ----- JANESSA BARON ([id number]) 1950 F Date Time Provider Department 08/17/24 [...] REGLAN (METOCLOPRAMIDE HCL) 04/27/2018 5 - Intolerance YXISTQS-NCA-ULJ REDUCTASE INHIBIT*01/31/2017 16 - Unknown Comments: Other [...] day with meals. - blood sugar diagnostic (WaveTech EnginesTOUCH ULTRA TEST) test strip Monitor blood sugar [...] with saline and apply twice daily - plrcjcck-zddrfttyn-rkedgi ortisone (CORTISPORIN) 3.5-10,000-1 mg/mL-unit/mL-% otic suspension Use 3 Drops in both ears four times daily. - gel base no.41, bulk, (HYDROGEL) gel 1 Dose once daily. - lancets (ONE TOUCH DELICA) 33 gauge 1 Each once daily. - blood sugar diagnostic (WaveTech EnginesTOUCH ULTRA TEST) test strip 1 Strip before [...] neoplasm of (more content not included)... [facility] C[facility] Tele[facility] (NIKKIA) ----- LORAINEJANESSA Lawrence ([id number]) 1950 F Date Time Provider Department 08/14/24 [...] REGLAN (METOCLOPRAMIDE HCL) 04/27/2018 5 - Intolerance SCSDAKJ-WHQ-PQH REDUCTASE INHIBIT*01/31/2017 16 - Unknown Comments: Other [...] day with meals. - blood sugar diagnostic (NewsMaven ULTRA TEST) test strip Monitor blood sugar [...] with saline and apply twice daily - cihdtbji-vqeryrnae-umywgz ortisone (CORTISPORIN) 3.5-10,000-1 mg/mL-unit/mL-% otic suspension Use 3 Drops in both ears four times daily. - gel base no.41, bulk, (HYDROGEL) gel 1 Dose once daily. - lancets (ONE TOUCH DELICA) 33 gauge 1 Each once daily. - blood sugar diagnostic (WaveTech EnginesTOUCH ULTRA TEST) test strip 1 Strip before [...] HCl (ZYRTEC ORAL) (more content not included)... [facility] 08-13-2024 YULYN Telephone (NIKKIA) ----- JANESSA BARON ([id number]) 1950 F Date Time Provider Department 08/13/24 KALI BACON During your visit today, we [...] REGLAN (METOCLOPRAMIDE HCL) 04/27/2018 5 - Intolerance FNEHHJP-PLJ-GIF REDUCTASE INHIBIT*01/31/2017 16 - Unknown Comments: Other reaction(s): Other TEQUIN (GATIFLOXACIN) 04/27/2018 2 - Rash DOXYCYCLINE 11/28/2018 16 - Unknown 11 - Vomiting Date Reviewed: 07/26/2024 Reviewed by: Ramos Solis LPN - Fully Assessed Primary Visit Diagnosis:Anemia, unspecified type [D64.9] Order(s):IRON AND TIBC [SQIRON] Order #: [id number] FUTURE FERRITIN [SQFERR] Order #: [id number] FUTURE Prescriptions as of 08/13/2024 - albuterol (PROVENTIL) 2.5 mg /3 mL (0.083 %) nebulizer solution INHALE WITH 1 VIAL IN NEBULIZER EVERY SIX HOURS NEEDED - rosuvastatin (CRESTOR) 10 mg tablet Take 1 tablet by mouth daily at bedtime. - metFORMIN (GLUCOPHAGE) 500 mg tablet Take 2 tablets by mouth two times a day with meals. - blood sugar diagnostic (NewsMaven ULTRA TEST) test strip Monitor blood sugar [...] with saline and apply twice daily - hlrogjtc-wcxpuwggb-kfascy ortisone (CORTISPORIN) 3.5-10,000-1 mg/mL-unit/mL-% otic suspension Use 3 Drops in both ears four times daily. - gel base no.41, bulk, (HYDROGEL) gel 1 Dose once daily. - lancets (ONE TOUCH DELICA) 33 gauge 1 Each once daily. - blood sugar diagnostic ([employer] ULTRA TEST) test strip 1 Strip before [...] 12/30/2022 Burping [R14 (more content not included)... Normal [facility] CBC W Auto Differential pane l (Bld)on 07-27-2024 Basophils (Bld) [#/Vol] 0.05 10*3/uL Normal <0.11 [facility] Comment on above: Order Comment: Speci men Type: BLOOD SPECIMEN [facility] Address: [address] [place] [address] Performed By: #### 2 132-9, 8 #### [facility] CLIA [id number] [address] [place] [address] [place] Basophils/100 WBC (Bld) 0.4 % Normal [facility] Comment on above: Order Comment: Speci men Type: BLOOD SPECIMEN [facility] Address: [address] [place] [address] Performed By: #### 2 132-9, 8 #### [facility] CLIA [id number] [address] [place] [address] [place] Differential cell count method Nom (Bld) Auto Normal [facility] Comment on above: Order Comment: Speci men Type: BLOOD SPECIMEN [facility] Address: [address] [place] [address] Performed By: #### 2 132-9, 8 #### [facility] CLIA [id number] [address] [place] [address] [place] Eosinophils (Bld) [#/Vol] 0.25 10*3/uL Normal <0.46 [facility] Comment on above: Order Comment: Speci men Type: BLOOD SPECIMEN [facility] Address: [address] [place] [address] Performed By: #### 2 132-9, 8 #### [facility] CLIA [id number] [address] [place] [address] [place] Eosinophils/100 WBC (Bld) 2.2 % Normal [facility] Comment on above: Order Comment: Speci men Type: BLOOD SPECIMEN [facility] Address: [address] [place] [address] Performed By: #### 2 132-9, 8 #### [facility] CLIA [id number] [address] [place] [address] [place] Erythrocyte distribution width (RBC) [Ratio] 17.1 % High 11.5-15.0 [facility] Comment on above: Order Comment: Speci men Type: BLOOD SPECIMEN [facility] Address: [address] [place] [address] Performed By: #### 2 132-9, 8 #### [facility] CLIA [id number] [address] [place] [address] [place] Hematocrit (Bld) [Volume fraction] 34.1 % Low 36.0-46.0 [facility] Comment on above: Order Comment: Speci men Type: BLOOD SPECIMEN [facility] Address: [address] [place] [address] Performed By: #### 2 132-9, 8 #### [facility] CLIA [id number] [address] [place] [address] [place] Hemoglobin (Bld) [Mass/Vol] 9.7 g/dL Low 11.5-15.5 [facility] Comment on above: Order Comment: Speci men Type: BLOOD SPECIMEN [facility] Address: [address] [place] [address] Performed By: #### 2 132-9, 2284-8 #### [facility] CLIA [id number] [address] [place] [address] [place] Immature granulocytes (Bld) [#/Vol] 0.05 10*3/uL Normal <0.10 [facility] Comment on above: Order Comment: Speci men Type: BLOOD SPECIMEN [facility] Address: [address] [place] [address] Performed By: #### 2 132-9, 8 #### [facility] CLIA [id number] [address] [place] [address] [place] Immature granulocytes/100 WBC (Bld) 0.4 % Normal [facility] Comment on above: Order Comment: Speci men Type: BLOOD SPECIMEN [facility] Address: [address] [place] [address] Performed By: #### 2 1329, 8 #### [facility] CLIA [id number] [address] [place] [address] [place] Lymphocytes (Bld) [#/Vol] 3.60 10*3/uL Normal 1.00-4.00 [facility] Comment on above: Order Comment: Speci men Type: BLOOD SPECIMEN [facility] Address: [address] [place] [address] Performed By: #### 2 132-9, 2284-03 #### [facility] CLIA [id number] [address] [place] [address] [place] Lymphocytes/100 WBC (Bld) 32.0 % Normal [facility] Comment on above: Order Comment: Speci men Type: BLOOD SPECIMEN [facility] Address: [address] [place] [address] Performed By: #### 2 132-9, 8 #### [facility] CLIA [id number] [address] [place] [address] [place] MCH (RBC) [Entitic mass] 21.7 pg Low 26.0-34.0 [facility] Comment on above: Order Comment: Speci men Type: BLOOD SPECIMEN [facility] Address: [address] [place] [address] Performed By: #### 2 132-9, 8 #### [facility] CLIA [id number] [address] [place] [address] [place] MCHC (RBC) [Mass/Vol] 28.4 g/dL Low 30.5-36.0 [facility] Comment on above: Order Comment: Speci men Type: BLOOD SPECIMEN [facility] Address: [address] [place] [address] Performed By: #### 2 132-9, 8 #### [facility] CLIA [id number] [address] [place] [address] [place] MCV (RBC) [Entitic vol] 76.1 fL Low 80.0-100.0 [facility] Comment on above: Order Comment: Speci men Type: BLOOD SPECIMEN [facility] Address: [address] [place] [address] Performed By: #### 2 132-9, 8 #### [facility] CLIA [id number] [address] [place] [address] [place] Monocytes (Bld) [#/Vol] 1.00 10*3/uL High <0.87 [facility] Comment on above: Order Comment: Speci men Type: BLOOD SPECIMEN [facility] Address: [address] [place] [address] Performed By: #### 2 132-9, 8 #### [facility] CLIA [id number] [address] [place] [address] [place] Monocytes/100 WBC (Bld) 8.9 % Normal [facility] Comment on above: Order Comment: Speci men Type: BLOOD SPECIMEN [facility]: [facility] Address: [address] [place] [address] Performed By: #### 2 132-9, 8 #### [facility] CLIA [id number] [address] [place] [address] [place] Neutrophils (Bld) [#/Vol] 6.31 10*3/uL Normal 1.45-7.50 [facility] Comment on above: Order Comment: Speci men Type: BLOOD SPECIMEN [facility] Address: [address] [place] [address] Performed By: #### 2 132-9, 8 #### [facility] CLIA [id number] [address] [place] [address] [place] Neutrophils/100 WBC (Bld) 56.1 % Normal [facility] Comment on above: Order Comment: Speci men Type: BLOOD SPECIMEN [facility] Address: [address] [place] [address] Performed By: #### 2 132-9, 8 #### [facility] CLIA [id number] [address] [place] [address] [place] Nucleated RBC (Bld) [#/Vol] 10*3/uL Normal <0.01 [facility] Comment on above: Order Comment: Speci men Type: BLOOD SPECIMEN [facility]: [facility] Address: [address] [place] [address] Performed By: #### 2 132-9, 8 #### [facility] CLIA [id number] [address] [place] [address] [place] Nucleated RBC/100 WBC (Bld) [Ratio] 0.0 /100 WBC Normal [facility] Comment on above: Order Comment: Speci men Type: BLOOD SPECIMEN [facility]: [facility] Address: [address] [place] [address] Performed By: #### 2 132-9, 2283-8 #### [facility] CLIA [id number] [address] [place] [address] [place] Platelet mean volume (Bld) [Entitic vol] 9.6 fL Normal 9.0-12.7 [facility] Comment on above: Order Comment: Speci men Type: BLOOD SPECIMEN [facility]ing Facility: [facility] Address: [address] [place] [address] Performed By: #### 2 132-9, 8 #### [facility] CLIA [id number] [address] [place] [address] [place] Platelets (Bld) [#/Vol] 404 10*3/uL High 150-400 [facility] Comment on above: Order Comment: Speci men Type: BLOOD SPECIMEN [facility]ing Facility: [facility] Address: [address] [place] [address] Performed By: #### 2 132-9, 8 #### [facility] CLIA [id number] [address] [place] [address] [place] RBC (Bld) [#/Vol] 4.48 10*6/uL Normal 3.90-5.20 [facility] Comment on above: Order Comment: Speci men Type: BLOOD SPECIMEN Ordering Facility: [facility] Address: [address] [place], [place] [id number] Performed By: #### 2 132-9, 8 #### [facility] CLIA [id number] [address] [place], [place] [address] [place] WBC (Bld) [#/Vol] 11.26 10*3/uL High 3.70-11.00 [facility] Comment on above: Order Comment: Speci men Type: BLOOD SPECIMEN [facility] Facility: [facility] Address: [address] [place] [address] Performed By: #### 2 132-9, 8 #### [facility] CLIA [id number] [address] [place], [place] [address] [place] Comprehensive metabolic 2000 panelon 07-27-2024 Albumin [Mass/Vol] 4.1 g/dL Normal 3.9-4.9 [facility] Comment on above: Order Comment: Speci men Type: BLOOD SPECIMEN [facility]ing Facility: [facility] Address: [address] [place] [address] Performed By: #### 2 132-9, 8 #### [facility] CLIA [id number] [address] [place], [place] [address] [place] ALP [Catalytic activity/Vol] 79 U/L Normal 34-123 [facility] Comment on above: Order Comment: Speci men Type: BLOOD SPECIMEN [facility]ing Facility: [facility] Address: [address] [place] [address] Performed By: #### 2 132-9, 8 #### [facility] CLIA [id number] [address] [place] [address] [place] ALT [Catalytic activity/Vol] 10 U/L Normal 7-38 [facility] Comment on above: Order Comment: Speci men Type: BLOOD SPECIMEN Ordering Facility: [facility] Address: [address] [place] [address] Performed By: #### 2 132-9, 8 #### [facility] CLIA [id number] [address] [place], [place] [address] [place] Anion gap [Moles/Vol] 15 mmol/L Normal 8-15 [facility] Comment on above: Order Comment: Speci men Type: BLOOD SPECIMEN Ordering Facility: [facility] Address: [address] [place] [address] Performed By: #### 2 132-9, 2283-8 #### [facility] CLIA [id number] [address] [place], [place] [address] [place] AST [Catalytic activity/Vol] 16 U/L Normal 13-35 [facility] Comment on above: Order Comment: Speci men Type: BLOOD SPECIMEN Ordering Facility: [facility] Address: [address] [place] [address] Performed By: #### 2 132-9, 8 #### [facility] CLIA [id number] [address] [place] [address] [place] Bilirubin [Mass/Vol] 0.2 mg/dL Normal 0.2-1.3 [facility] Comment on above: Order Comment: Speci men Type: BLOOD SPECIMEN Ordering Facility: [facility] Address: [address] [place] [address] Performed By: #### 2 132-9, 8 #### [facility] CLIA [id number] [address] [place] [address] [place] Calcium [Mass/Vol] 9.6 mg/dL Normal 8.5-10.2 [facility] Comment on above: Order Comment: Speci men Type: BLOOD SPECIMEN Ordering Facility: [facility] Address: [address] [place] [address] Performed By: #### 2 132-9, 8 #### [facility] CLIA [id number] [address] [place] [address] [place] Chloride [Moles/Vol] 96 mmol/L Low 98-107 [facility] Comment on above: Order Comment: Speci men Type: BLOOD SPECIMEN Ordering Facility: [facility] Address: [address] [place] [address] Performed By: #### 2 132-9, 8 #### [facility] CLIA [id number] [address] [place] [address] [place] CO2 [Moles/Vol] 26 mmol/L Normal 22-30 [facility] Comment on above: Order Comment: Speci men Type: BLOOD SPECIMEN Ordering Facility: [facility] Address: [address] [place] [address] Performed By: #### 2 132-9, 4-8 #### [facility] CLIA [id number] [address] [place] [address] [place] Creatinine [Mass/Vol] 0.72 mg/dL Normal 0.58-0.96 [facility] Comment on above: Order Comment: Specmarleni men Type: BLOOD SPECIMEN Ordering Facility: [facility] Address: [address] [place] [address] Performed By: #### 2 132-9, 2283-8 #### [facility] IA [id number] [address] [place] [address] [place] Creatinine and Glomerular filtration rate.predicted panel (S/P/Bld) 90 mL/min/1.73m??? Normal >=60 [facility] Comment on above: Order Comment: Gadiel cisneros Type: BLOOD SPECIMEN Ordering Facility: [facility] Address: [address] [place] [address] Result Comment: Shauna mated Glomerular Filtration Rate [...] Performed By: #### 2 132-9, 2283-8 #### [facility] CLIA [id number] [address] [place] [address] [place] Glucose [Mass/Vol] 151 mg/dL High 74-99 [facility] Comment on above: Order Comment: Juani men Type: BLOOD SPECIMEN Ordering Facility: [facility] Address: [address] [place] [address] Result Comment: The [place] [employer] (ADA) provides guidance for cutoff [...] Standards of Medical Care in Diabetes 2016, [place] [employer]. Diabetes Care. 2016.39(Suppl 1). Performed By: #### 2 132-9, 2284-03 #### [facility] CLIA [id number] [address] [place] [address] [place] Potassium [Moles/Vol] 4.1 mmol/L Normal 3.7-5.1 [facility] Comment on above: Order Comment: Speci men Type: BLOOD SPECIMEN Ordering Facility: [facility] Address: [address] [place] [address] Performed By: #### 2 1329, 2284-03 #### [facility] CLIA [id number] [address] [place] [address] [place] Protein [Mass/Vol] 7.5 g/dL Normal 6.3-8.0 [facility] Comment on above: Order Comment: Juani amelia Type: BLOOD SPECIMEN Ordering Facility: [facility] Address: [address] [place] [address] Performed By: #### 2 1329, 2284-03 #### [facility] CLIA [id number] [address] [place], [place] [address] [place] Sodium [Moles/Vol] 137 mmol/L Normal 136-144 [facility] Comment on above: Order Comment: Juani men Type: BLOOD SPECIMEN Ordering Facility: [facility] Address: [address] [place] [address] Performed By: #### 2 132-9, 2284-03 #### [facility] CLIA [id number] [address] [place] [address] [place] Urea nitrogen [Mass/Vol] 21 mg/dL Normal 7-21 [facility] Comment on above: Order Comment: Gadiel cisneros Type: BLOOD SPECIMEN Ordering Facility: [facility] Address: [address] [place] [address] Performed By: #### 2 132-9, 2284-8 #### [facility] CLIA [id number] [address] [place] [address] [place] HbA1c (Bld)on 07-27-2024 Average glucose Estimated from glycated hemoglobin (Bld) [Mass/Vol] 160 mg/dL Normal [facility] Comment on above: Order Comment: Gadiel cisneros Type: BLOOD SPECIMEN Ordering Facility: [facility] Address: [address] [place] [address] Result Comment: eAG: (Estimated average glucose) is a calculated value from HgbA1c and is school admissions representative of the average blood glucose level in the last 2-3 month period. Performed By: #### 2 4321-2 #### [facility] CLIA [id number] [address] [place] [address] [place] HbA1c (Bld) [Mass fraction] 7.2 % High 4.3-5.6 [facility] Comment on above: Order Comment: Gadiel cisneros Type: BLOOD SPECIMEN Ordering Facility: [facility] Address: [address] [place] [address] Result Comment: [place] Diabetes Association guidelines indicate that patients with HgbA1c in the range 5.7-6.4% are at increased risk for development of diabetes, and intervention by lifestyle modification may be beneficial. HgbA1c greater or equal to 6.5% is considered diagnostic of diabetes. Performed By: #### 2 4321-2 #### [facility] CLIA [id number] [address] [place] [address] [place] Lipid 1996 panelon 4 Cholesterol [Mass/Vol] 209 mg/dL High <200 [facility] Comment on above: Order Comment: Speci men Type: BLOOD SPECIMEN Ordering Facility: [facility] Address: [address] [place] [address] Result Comment: <200 mg/dL, Desirable 200-239 mg/dL, Borderline high >239 mg/dL, High Performed By: #### 2 132-9, 8 #### [facility] CLIA [id number] [address] [place] [address] [place] Cholesterol in HDL [Mass/Vol] 40 mg/dL Normal >39 [facility] Comment on above: Order Comment: Speci men Type: BLOOD SPECIMEN Ordering Facility: [facility] Address: [address] [place] [address] Result Comment: 40-5 9 mg/dL, Acceptable >59 mg/dL, High: Negative risk factor for coronary heart disease <40 mg/dL, Low: Positive risk factor for coronary heart disease Performed By: #### 2 132-9, 8 #### [facility] CLIA [id number] [address] [place] [address] [place] Cholesterol in LDL [Mass/Vol] 112 mg/dL High <100 [facility] Comment on above: Order Comment: Juani men Type: BLOOD SPECIMEN Ordering Facility: [facility] Address: [address] [place] [address] Result Comment: <100 mg/dL, Optimal 100-129 mg/dL, Near optimal/above optimal 130-159 mg/dL, Borderline high 160-189 mg/dL, High >189 mg/dL, Very high Secondary prevention optimal LDL Cholesterol levels are recommended to be < 70 mg/dL Performed By: #### 2 132-9, 8 #### [facility] CLIA [id number] [address] [place] [address] [place] Cholesterol in LDL/Cholesterol in HDL [Mass ratio] 2.80 {ratio} High <2.54 [facility] Comment on above: Order Comment: Speci men Type: BLOOD SPECIMEN Ordering Facility: [facility] Address: [address] [place] [address] Result Comment: Valentín funez: 1. National Cholesterol Education Program ATP III Guideline At-A-Glance Quick Desk Reference: National Heart, Lung, and Blood [place]. National Institutes of Health. 2001: NIH Publication No. 01-3305. 2. An International Atherosclerosis Society position paper: global recommendations for the management of dyslipidemia: executive summary, Atherosclerosis. 2014: 232(2):410-413. Performed By: #### 2 132-9, 8 #### [facility] CLIA [id number] [address] [place] [address] [place] Cholesterol in VLDL [Mass/Vol] 57 mg/dL High <30 [facility] Comment on above: Order Comment: Gadiel cisneros Type: BLOOD SPECIMEN Ordering Facility: [facility] Address: [address] [place] [address] Performed By: #### 2 132-9, 8 #### [facility] CLIA [id number] [address] [place] [address] [place] Cholesterol non HDL [Mass/Vol] 169 mg/dL High <130 [facility] Comment on above: Order Comment: Gadiel cisneros Type: BLOOD SPECIMEN Ordering Facility: [facility] Address: [address] [place] [address] Result Comment: <130 mg/dL, Optimal 130-159 mg/dL, Near optimal/above optimal 160-189 mg/dL, Borderline high 190-219 mg/dL, High >219 mg/dL, Very high Secondary prevention optimal non HDL Cholesterol levels are recommended to be <100 mg/dL Performed By: #### 2 132-9, 8 #### [facility] CLIA [id number] [address] [place] [address] [place] Cholesterol.total/Cho lesterol in HDL [Mass ratio] 5.23 {ratio} High <5.10 [facility] Comment on above: Order Comment: Gadiel cisneros Type: BLOOD SPECIMEN Ordering Facility: [facility] Address: [address] [place] [address] Performed By: #### 2 132-9, 2284-8 #### [facility] CLIA [id number] [address] [place] [address] [place] FASTING TIME 12 hrs Normal [facility] Comment on above: Order Comment: Speci men Type: BLOOD SPECIMEN Ordering Facility: [facility] Address: [address] [place] [address] Performed By: #### 2 132-9, 8 #### [facility] CLIA [id number] [address] [place] [address] [place] Triglyceride [Mass/Vol] 285 mg/dL High <150 [facility] Comment on above: Order Comment: Speci men Type: BLOOD SPECIMEN Ordering Facility: [facility] Address: [address] [place] [address] Result Comment: <150 mg/dL, Normal 150-199 mg/dL, Borderline high 200-499 mg/dL, High >499 mg/dL, Very high Performed By: #### 2 132-9, 2284-03 #### [facility] CLIA [id number] [address] [place] [address] [place] CNOVon 07-26-2024 CNOV Office Visit (ESPERANZAS ) ----- JANESSA BARON ([id number]) 1950 F Date Time Provider Department 07/26/24 [...] scheduled [place] 08/31/24 Bone Density Screening scheduled [place] 08/31/24 BP Controlled (<130/80) HbA1C ordered LDL Cholesterol ordered Discuss left trigger thumb and upcoming L4-L5 surgery Ramos Márquez PATRICA Solis July 26, 2024 2:17 PM Kali Bacon [...] Lincomycin Rash Pseudoephedrine Hives Reglan [Metoclopram* Intolerance Brgwngb-Nhp-Pie Red* Unknown Other reaction(s): Other Tequin [Gatifloxaci* [...] ampules with saline and apply twice daily birlnqis-bzmrajxsa-tysqxv ortisone (CORTISPORIN) 3.5-10,000-1 mg/mL-unit/mL-% otic suspension Use 3 Drops in both ears four times daily. gel base no.41, bulk, (HYDROGEL) gel 1 Dose once daily. lancets (ONE TOUCH DELICA) 33 gauge 1 Each once daily. blood sugar diagnostic (ONETOU (more content not included)... Normal [facility] Orthopedic Visit Reporton Orthopedic Visit Report [facility] [address] [place] [address] OFFICE VISIT Date of Service: 07/20/24 MR#: [id number] Acct: [id number] Name: JANESSA BARON Rep #: [id number] : 1950 Provider: Dr. Dominic Issa MD Age/Sex: 73/F Location: [facility] Status: Signed Intake Vital Signs 05/03/24 14:23 Height 5 ft 3 in Intake [...] Cancer vag (more content not included)... Normal [facility] Spine Lumbar (Routine)on Spine Lumbar (Routine) [facility] Imaging Services [address] [place] [address] [id number] Spine Lumbar (Routine) MR#: [id number] Acct: [id number] Name: JANESSA BARON Rep #: [id number] : 1950 F 73 From: Tosin ramirez MD PCP: Dr. Kali Bacon MD Status: REG CLI Study: Spine Lumbar (Routine) Date of Exam: 07/17/24 Exam# [id number] Ordering Dr: Dominic Issa MD [id number] HISTORY: back pain into buttocks, legs and [...] Signed: Tosin King MD at 9:38 EST , CC: Dr. Dominic Issa MD; Dr. 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 Carotid Duplex Ultrasoundon 07-12-2024 Carotid Duplex Ultrasound [facility] [address] [place] [address] Carotid Duplex Ultrasound 07/12/24 1013 MR#: [id number] Acct: [id number] Name: JANESSA BARON Rep #: [id number] : 1950 73 From: Abraham Gilbert MD Attending Dr: INDU Aucña Status: REG CLI Ordering Dr: Genesis Carbajal [...] the left vertebral artery. Procedure Carotid Duplex 58460. This is a Carotid Duplex examination using [...] Acuña; Dr. 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 CBC W/Diff, Automatedon - Absolute Lymph 3.56 X10 3/uL Normal 0.83-4.51 [facility] Comment on above: Performed By: #### L 100.0100 #### [facility] [address] [place], [address] Absolute Neut 4.3 X10 3/uL Normal 2.0-7.7 [facility] Comment on above: Performed By: #### L 100.0100 #### [facility] [address] [place], [address] Basophils/100 WBC (Bld) 0.5 % Normal 0-1 [facility] Comment on above: Performed By: #### L 100.0100 #### [facility] [address] [place], [address] Eosinophils/100 WBC (Bld) 1.6 % Normal 0-5 [facility] Comment on above: Performed By: #### L 100.0100 #### [facility] [address] [place], [address] Erythrocyte distribution width (RBC) [Ratio] 16.3 % High 11.6-14.6 [facility] Comment on above: Performed By: #### L 100.0100 #### [facility] [address] [place], [address] Hematocrit (Bld) [Volume fraction] 33.7 % Low 37-47 [facility] Comment on above: Performed By: #### L 100.0100 #### [facility] [address] [place], [address] Hemoglobin (Bld) [Mass/Vol] 9.8 g/dL Low 12.0-15.0 [facility] Comment on above: Performed By: #### L 100.0100 #### [facility] [address] [place], [address] IG% 0.200 Normal 0.0-0.9 [facility] Comment on above: Result Comment: IG% - Immature Granulocytes (promyelocytes, myelocytes and metamyelocytes) > 1% indicates that a LEFT SHIFT is Present. Performed By: #### L 100.0100 #### [facility] [address] [place], [address] Lymphocytes/100 WBC (Bld) 41.0 % Normal 19-41 [facility] Comment on above: Performed By: #### L 100.0100 #### [facility] [address] [place], [address] MCH (RBC) [Entitic mass] 22.1 pg Low 27.0-32.0 [facility] Comment on above: Performed By: #### L 100.0100 #### [facility] [address] [place], [address] MCHC (RBC) [Mass/Vol] 29.1 g/dL Low 32-36 [facility] Comment on above: Performed By: #### L 100.0100 #### [facility] [address] [place], [address] MCV (RBC) [Entitic vol] 75.9 fL Low 81-99 [facility] Comment on above: Performed By: #### L 100.0100 #### [facility] [address] [place], [address] Monocytes/100 WBC (Bld) 7.1 % Normal 0-10 [facility] Comment on above: Performed By: #### L 100.0100 #### [facility] [address] [place], [address] Neutrophils/100 WBC (Bld) 49.6 % Normal 47-70 [facility] Comment on above: Performed By: #### L 100.0100 #### [facility] [address] [place], [address] Nucleated RBC (Bld) [#/Vol] 0 10*3/uL Normal 0-5 [facility] Comment on above: Performed By: #### L 100.0100 #### [facility] [address] [place], [address] Platelet mean volume (Bld) [Entitic vol] 8.4 fL Normal 6.2-12.0 [facility] Comment on above: Performed By: #### L 100.0100 #### [facility] [address] [place], [address] Platelets (Bld) [#/Vol] 399 10*3/uL Normal 150-450 [facility] Comment on above: Performed By: #### L 100.0100 #### [facility] [address] [place], [address] RBC (Bld) [#/Vol] 4.44 10*6/uL Normal 4.2-5.4 [facility] Comment on above: Performed By: #### L 100.0100 #### [facility] [address] [place], [address] RDW SD 44.5 fl High 35.1-43.9 [facility] Comment on above: Performed By: #### L 100.0100 #### [facility] [address] [place], [address] WBC (Bld) [#/Vol] 8.7 10*3/uL Normal 4.4-11.0 [facility] Comment on above: Performed By: #### L 100.0100 #### [facility] [address] [place], [address] Iron+Iron Binding Capacityon 05-05-2024 IRON Normal 50-170 [facility] Comment on above: Result Comment: DONT HAVE GREEN TOP Performed By: #### L 667.3330 #### [facility] [address] [place], [address] IRON SATURATION Normal 15.0-55.0 [facility] Comment on above: Result Comment: DONT HAVE GREEN TOP Performed By: #### L 030.7651 #### [facility] [address] [place], [address] TIBC Normal 250-450 [facility] Comment on above: Result Comment: DONT HAVE GREEN TOP Performed By: #### L 562.5414 #### [facility] [address] [place], [address] CBC W/Diff, Automatedon 09- Absolute Lymph 2.27 X10 3/uL Normal 0.83-4.51 [facility] Comment on above: Performed By: #### L 503.6030 #### [facility] [address] [place], [address] Absolute Neut 3.6 X10 3/uL Normal 2.0-7.7 [facility] Comment on above: Performed By: #### L 503.6030 #### [facility] [address] [place], [address] Basophils/100 WBC (Bld) 0.6 % Normal 0-1 [facility] Comment on above: Performed By: #### L 503.6030 #### [facility] [address] [place], [address] Eosinophils/100 WBC (Bld) 2.0 % Normal 0-5 [facility] Comment on above: Performed By: #### L 503.6030 #### [facility] [address] [place], [address] Erythrocyte distribution width (RBC) [Ratio] 16.3 % High 11.6-14.6 [facility] Comment on above: Performed By: #### L 503.6030 #### [facility] [address] [place], [address] Hematocrit (Bld) [Volume fraction] 34.5 % Low 37-47 [facility] Comment on above: Performed By: #### L 503.6030 #### [facility] [address] [place], [address] Hemoglobin (Bld) [Mass/Vol] 9.9 g/dL Low 12.0-15.0 [facility] Comment on above: Performed By: #### L 5036030 #### [facility] [address] [place], [address] IG% 0.300 Normal 0.0-0.9 [facility] Comment on above: Result Comment: IG% - Immature Granulocytes (promyelocytes, myelocytes and metamyelocytes) > 1% indicates that a LEFT SHIFT is Present. Performed By: #### L 346.6024 #### [facility] [address] [place], [address] Lymphocytes/100 WBC (Bld) 32.3 % Normal 19-41 [facility] Comment on above: Performed By: #### L 503.6030 #### [facility] [address] [place], [address] MCH (RBC) [Entitic mass] 21.7 pg Low 27.0-32.0 [facility] Comment on above: Performed By: #### L 503.6030 #### [facility] [address] [place], [address] MCHC (RBC) [Mass/Vol] 28.7 g/dL Low 32-36 [facility] Comment on above: Performed By: #### L 503.6030 #### [facility] [address] [place], [address] MCV (RBC) [Entitic vol] 75.7 fL Low 81-99 [facility] Comment on above: Performed By: #### L 503.6030 #### [facility] [address] [place], [address] Monocytes/100 WBC (Bld) 13.2 % High 0-10 [facility] Comment on above: Performed By: #### L 5036030 #### [facility] [address] [place], [address] Neutrophils/100 WBC (Bld) 51.6 % Normal 47-70 [facility] Comment on above: Performed By: #### L 452.6030 #### [facility] [address] [place], [address] Nucleated RBC (Bld) [#/Vol] 0 10*3/uL Normal 0-5 [facility] Comment on above: Performed By: #### L 5036067 #### [facility] [facility] [address] [place], [address] Platelet mean volume (Bld) [Entitic vol] 9.8 fL Normal 6.2-12.0 [facility] Comment on above: Performed By: #### L [id number] #### [facility] [address] [place], [address] Platelets (Bld) [#/Vol] 386 10*3/uL Normal 150-450 [facility] Comment on above: Performed By: #### L [id number] #### [facility] [address] [place], [address] RBC (Bld) [#/Vol] 4.56 10*6/uL Normal 4.2-5.4 [facility] Comment on above: Performed By: #### L [id number] #### [facility] [address] [place], [address] RDW SD 44.3 fl High 35.1-43.9 [facility] Comment on above: Performed By: #### L [id number] #### [facility] [address] [place], [address] WBC (Bld) [#/Vol] 7.0 10*3/uL Normal 4.4-11.0 [facility] Comment on above: Performed By: #### L [id number] #### [facility] [address] [place], [address] Cardiology Visit Reporton Cardiology Visit Report [facility] [address] [place] [address] OFFICE VISIT Date of Service: 05/03/24 MR#: [id number] Acct: [id number] Name: JANESSA BARON Rep #: [id number] : 1950 Provider: INDU Lan Age/Sex: 73/F Location: [facility] Status: Signed HPI [facility] History of Present Illness Details: Janessa Baron [...] to her arm when she walks around [facility]. Her last lipid profile demonstrated total [...] circumflex and a totally occluded RCA with wwcm-vo-omuvw collaterals with disease noted in the proximal and mid LAD and proximal circumflex. Patient was recommended for surgical consult for coronary revascularization. 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 Normal [facility] Surgery Visit Reporton 02-22 Surgery Visit Report [facility] [address] [place] [address] OFFICE VISIT Date of Service: 02/23/24 MR#: [id number] Acct: [id number] Name: JANESSA BARON Rep #: [id number] : 1950 Provider: INDU Acuña Age/Sex: 73/F Location: [facility] Status: Signed Intake Vital Signs 02/03/24 14:29 [...] focal swelling (more content not included)... Normal [facility] CNOVon 02-16-2024 CNOV Office Visit (FAMMAS ) ----- JANESSA BARON ([id number]) 1950 F Date Time Provider Department 02/16/24 2:40 PM KALI BACON During your visit today, we recorded the following information about you: Temperature Pulse Respiration Blood pressure 98.4 degrees 88/minute 21/minute 138/74 Weight Height 87.1 kg 1.6 m Laura Lyons LPN 02/16/2024 3:47 PM Signed Patient in the office today with complaints of low blood pressure and elevated glucose. Patient had carotid stent placed 01/25/24 at [facility]. Patient is taking Brillinta for 30 days post op ending on 02/24/2024. She said she is having issues breathing and increasing her glucose levels. Patient wants to discuss options. Refills entered. Laura Lyons LPN February 16, 2024 2:48 PM Kali Bacon MD 02/16/2024 3:47 PM Signed Subjective Janessa Bravo Loraine is a 73 year old female. Patient in the office today with complaints of low blood pressure and elevated glucose. Patient had carotid stent placed 01/25/24 at [facility]. Patient is taking Brillinta for 30 days [...] Lincomycin Rash Pseudoephedrine Hives Reglan [Metoclopram* Intolerance Owiuyrh-Rbn-Cov Red* Unknown Other reaction(s): Other Tequin [Gatifloxaci* Rash Doxycycline Unknown, Vomiting MEDICATIONS: blood sugar diagnostic ([employer] ULTRA TEST) test strip Monitor blood sugar [...] ampules with saline and apply twice daily esujmpio-iirgvblpq-yjfgpo ortisone (CORTISPORIN) 3.5-10,000-1 mg/mL-unit/mL-% otic suspension Use 3 Drops in both ears four times daily. gel base no.41, bulk, (HYDROGEL) gel 1 Dose once daily. budesonide-formoterol (SYMBICORT) 160-4.5 mcg/actuation inhaler Inhale 2 Puffs as instructed twice daily. albuterol (PROVENTIL) 2.5 mg /3 mL (0.083 %) nebulizer solution INHALE W (more content not included)... Normal [facility] Surgery Visit Reporton 02-09 Surgery Visit Report [facility] [address] [place] [address] OFFICE VISIT Date of Service: 02/10/24 MR#: [id number] Acct: [id number] Name: JANESSA BARON Rep #: [id number] : 1950 Provider: INDU Acuña Age/Sex: 73/F Location: [facility] Status: Signed Intake Vital Signs 10/12/23 13:31 02/03/24 14:29 02/10/24 11:19 Height 5 ft 3 in 5 ft 3 in Weight: 197 lb BP 168/77 H Blood Pressure Location Lt brachial Position Sitting Respiration 16 Pulse 84 Pulse Source Monitor Temp 97.1 F L Temp Source Temporal Pulse Oximetry (%) 99 Oxygen Delivery Method room air 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 Normal [facility] Carotid Duplex Ultrasoundon 02-09-2024 Carotid Duplex Ultrasound [facility] [address] [place] [place] [address] Carotid Duplex Ultrasound 02/09/24 0809 MR#: [id number] Acct: [id number] Name: JANESSA BARON Rep #: [id number] : 1950 73 From: Abraham Gilbert MD Attending Dr: INDU Acuña Status: REG CLI Ordering Dr: Genesis Carbajal Date: 02/09/24 Location: [facility] Sex: F C Admitted: Reason For Study: [...] the left vertebral artery. Procedure Carotid Duplex 86584. This is a Carotid Duplex examination using B-mode, color flow and specral Doppler. The exam was diagnostic. Exam performed in department. VL/Carotid Duplex Ultrasound Interpretation Summary Moderate (50-69%) stenosis right extracranial internal carotid. Mild (<70%) stenosis left extracranial internal carotid. Patent and antegrade vertebrals bilaterally. ___ Ordering Physician: Genesis Carbajal Referring Physician: Genesis Carbajal Performed By: Gege Bernabe RVT 02/14/2445 Date Abraham Gilbert MD CC: INDU Acuña; Dr. 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 Yadiel 02-07-2024 CNPN Telephone (FAMMAS) ----- JANESSA BARON ([id number]) 1950 F Date Time Provider Department 02/07/24 KALI BACON FAMMAS During your visit today, we recorded the following information about you: Ewa Mclain LPN 02/07/2024 10:00 AM Signed Janessa Baron's Rody called today. : 1950 Allergies: Metoclopramide, Sulfamethoxazole-Trimetho prim, Morphine, Acetaminophen, Augmentin [Amoxicillin-Pot Clavulanate], Cefzil [Cefprozil], Dayquil Allergy 12-Hr, Dextromethorphan, Doxylamine, Erythromycin, Iodinated Contrast Media, Ivp Dye [Iodine], Lincomycin, Pseudoephedrine, Reglan [Metoclopramide Hcl], Ggtypbc-Hqa-Wjo Reductase Inhibitors, Tequin [Gatifloxacin], and Doxycycline (home) [phone] (work) [phone] (cell) Reason for call: Rody said Janessa was seen in the office by Dr Bacon on 01/24/24. She had a rash at that time on her arms, neck, back, and legs. The steroid medication is not working. Janessa wants to go to a Communication Coordinator and needs a referral. She would like to go see Communication Coordinator Dr Garrick Walters of [address], [place] [address] Patient last appointment: 01/24/2024 The patients preferred pharmacy has been captured for this encounter? no PATRICA Zendejas Raymond Gregory, MD 02/08/2024 3:31 PM Signed Addended by: KALI BACON on: 02/08/2024 03:31 PM Modules accepted: Orders Kali Bacon MD 02/08/2024 3:43 PM Signed Referral still placed please forward to Dr. Walters's office Ewa Mclain LPN 02/09/2024 2:29 PM Signed Referral faxed to: Communication Coordinator Dr Garrick Walters of [address], [place] [address] . Patient's Ross notified and he thanked me for the notification. Ewa Mclain LPN February 09, 2024 2:29 PM [...] REGLAN (METOCLOPRAMIDE HCL) 04/27/2018 5 - Intolerance FFWENTX-IRM-HQY REDUCTASE INHIBIT*01/31/2017 16 - Unknown Comments: Other reaction(s): Other TEQUIN (GATIFLOXACIN) 04/27/2018 2 - Rash DOXYCYCLINE 11/28/2018 16 - Unknown 11 - Vomiting Date Reviewed: 01/24/2024 Reviewed by: Laura Lyons LPN - Fully Assessed Reason for Visit: Referral Request [124] Primary Visit Diagnosis:Rash [R21] Order(s):CONSULT TO DERMATOLOGY [9006] Order #: [id number]: 1 FUTURE Prescriptions as of 02/09/2024 - [...] with saline and apply twice daily - ofqpqnfg-symotqrsz-cilpqr ortisone (CORTISPORIN) 3.5-10,000-1 mg/mL-unit/mL-% otic suspension Use 3 Drops in both ears four times daily. - gel base no.41, bulk, (HYDROGEL) gel 1 Dose once daily. - budesonide-formoterol (SYMBICORT) 160-4.5 mcg/actuation inhaler Inhale 2 Puffs as instructed twice serena (more content not included)... Normal [facility] L/S Spine Min 4 Viewson 01-15 L/S Spine Min 4 Views [facility] [address] [place] [address] L/S Spine Min 4 Views MR#: [id number] Acct: [id number] Name: JANESSA BARNO Rep #: [id number] : 1950 F 73 From: Galen Layton MD PCP: Dr. Kali Bacon MD Status: DEP AMB Study: L/S Spine Min 4 Views Date of Exam: 02/03/24 Exam# [id number] Ordering Dr: Dominic Issa MD [id number] STUDY: X-RAY - LUMBAR SPINE REASON FOR [...] Dominic Issa MD; Dr. 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 Orthopedic Visit Reporton Orthopedic Visit Report [facility] [address] [place] [address] [address] [place] [address] OFFICE VISIT Date of Service: 02/03/24 MR#: [id number] Acct: [id number] Name: JANESSA BARON Rep #: [id number] : 1950 Provider: Dr. Dominic Issa MD Age/Sex: 73/F Location: [facility] Status: Signed Intake Vital Signs 01/25/24 06:18 [...] 81 mg PO DAILY HEART HEALTH 12/21/22 02/03/24 History release (Adult Low [...] tablet (Brilinta) 90 mg PO BID HEART [employer] #60 tabs 01/27/24 02/03/24 Rx PFSH Medical [...] Thyroid diso (more content not included)... Normal [facility] No Panel InformationOrdered By: Genesis Carbajal on 10-27-2023 Estimated GFR (MDRD) Amer 85 mL/min >60 [facility] Comment on above: GFR Calc Estimated GFR (MDRD) Non-Af Amer 70 mL/min >60 [facility] Comment on above: Non- GFR Calc Serum or plasma creatinine m easurement (mass/volume)Ordered By: Genesis Carbajal on 10-27-2023 Creatinine [Mass/Vol] 0.85 mg/dL 0.55-1.02 [facility] Comment on above: The validity of the calculated GFR & GFRAA in patients over 70 years has not been determined. Clinical correlation is essential. Cervical or vaginal specimen microscopic examination by liquid based cytology (reportOrdered By: Sarah William on 09-17-2023 Cytology report Cyto stain.thin prep Doc (Cvx/Vag) Comment . [facility] Comment on above: Criteria not met, HP V Genotype not performed.Performed at: [facility] - [facility] [id number] Director: Micaela Gutierrez MD, Phone: [phone] at: =G - [facility] [address] [id number] Director: Micaela Gutierrez MD, Phone: [phone] Cervical or vagninal specime n microscopic examination by cytology stain (reported asOrdered By: Sarah William on 09-17-2023 Cytology report Cyto stain Doc (Cvx/Vag) Comment . [facility] Comment on above: The Pap smear [...] DNA Probe+sig amp Ql (Cvx) Negative Negative [facility] Comment on above: This nucleic acid am plification test detects fourteen high- risk HPV types (16,18,31,33,35,39,45,51,52,56,58,59,66,68)without differentiation. Gram stain for investigation of transfusion reactionOrdered By: Sarah William on 09-17-2023 Microscopic observation Gram stain Nom (Unsp spec) [facility] Microscopic observation Gram stain Nom (Unsp spec) [facility] Laboratory - CytologyOrdered By: Sarah William on 09-17-2023 [employer] Teacher Cyto stain Nom (Cvx/Vag) [ID] Comment . [facility] Comment on above: Paulie Chandler Cytot echnologist (ASCP) Laboratory - Miscellaneous t estsOrdered By: Sarah William on 09-17-2023 Service comment (Unsp spec) [Interp] . . [facility] No Panel InformationOrdered By: Sarah William on 09-17-2023 Genital Culture [facility] Genital Culture [facility] Thin prep Papanicolaou smear with manual screeningOrdered By: Sarah William on 09-17-2023 Thin prep Papanicolaou smear with manual screening Comment . [facility] Comment on above: NEGATIVE FOR INTRAEP ITHELIAL LESION OR MALIGNANCY. This liquid based Th inPrep(R) pap test was screened withthe use of an image guided system. Laboratory - Drug toxicology Ordered By: Shawn Cohen on 09-15-2023 Amphetamines Ql (U) Negative <1000 ng/mL [facility] Benzodiazepines Ql (U) Negative < 200 ng/mL [facility] Cannabinoids Screen Ql (U) Negative < 50 ng/mL [facility] Cocaine Ql (U) Negative < 300 ng/mL [facility] Opiates Ql (U) Negative < 300 ng/mL [facility] No Panel InformationOrdered By: Shawn Cohen on 09-15-2023 MDMA (Ecstasy) Screen Negative < 500 ng/mL [facility] Miscellaneous Test See comment [facility] Comment on above: TEST RESULTS LIMITST ramadol Positive Lmdewx=601 Tramadol Conf, [place], [place] >[address] Uzbvhj=977 TESTING PERFORMED AT [facility] ORIGINAL REPORT ON FILE IN LAB CONTAINS ADDITIONAL TEST SITE INFORMATION. Urine Barbiturates Screen Negative < 200 ng/mL [facility] Urine Drug Screen Comment [facility] Comment on above: CONFIRMATORY TESTING FOR ALL [...] Urine Methadone Screen Negative < 300 ng/mL [facility] Urine phencyclidine (PCP) de tectionOrdered By: Shawn Cohen on 09-15-2023 Phencyclidine Ql (U) Negative < 25 ng/mL [facility] UA DIP, URINE (POC)on 2022 BILIRUBIN UA (POCT) Negative Negative [facility] CLARITY UA (POCT) Clear [facility] COLOR UA (POCT) Yellow [facility] GLUCOSE UA (POCT) Negative Negative mg/dL [facility] Hemoglobin Ql (U) Negative Negative [facility] KETONE UA (POCT) Negative Negative mg/dL [facility] LEUKOCYTES UA (POCT) Negative Negative [facility] NITRITE UA (POCT) Negative Negative [facility] PH UA (POCT) 5.5 4.5 - 8.0 [facility] Protein Ql (U) Negative Negative mg/dL [facility] SPECIFIC GRAVITY UA (POCT) <=1.005 Abnormal 1.005 - 1.030 [facility] UROBILINOGEN UA (POCT) 0.2 E.U./dL Normal E.U./dL [facility] UA DIP, URINE (POC)on 2022 BILIRUBIN UA (POCT) Negative Negative [facility] CLARITY UA (POCT) Cloudy [facility] COLOR UA (POCT) Yellow [facility] GLUCOSE UA (POCT) Negative Negative mg/dL [facility] Hemoglobin Ql (U) Trace-intact Abnormal Negative [facility] KETONE UA (POCT) Negative Negative mg/dL [facility] LEUKOCYTES UA (POCT) Moderate Abnormal Negative [facility] NITRITE UA (POCT) Negative Negative [facility] PH UA (POCT) 6.5 4.5 - 8.0 [facility] Protein Ql (U) Negative Negative mg/dL [facility] SPECIFIC GRAVITY UA (POCT) 1.010 1.005 - 1.030 [facility] UROBILINOGEN UA (POCT) 0.2 E.U./dL Normal E.U./dL [facility] Whole blood hemoglobin A1c/t otal hemoglobin ratio (mass fraction)Ordered By: Isai Ornelas on 03-15-2023 HbA1c (Bld) [Mass fraction] 7.5 % 3.8-5.6 [facility] Comment on above: Normal < 5.7 % Predi abetic 5.7 - 6.4 % Diabetic >or= 6.5 % Please note range changes. Basophil percentageOrdered B y: Isai Ornelas on 03-12-2023 Chloride [Moles/Vol] 102 mmol/L 98-107 [facility] Glucose [Mass/Vol] 151 mg/dL 74-106 [facility] Comment on above: Fasting Glucose resu lt greater than or equal to 126 mg/dL suggests DIABETES MELLITUS per A.D.A. criteria. Potassium [Moles/Vol] 3.8 mmol/L 3.5-5.1 [facility] Sodium [Moles/Vol] 138 mmol/L 136-145 [facility] WBC (Bld) [#/Vol] 9.6 10*3/uL 4.4-11.0 [facility] Blood erythrocytes count (nu mber/volume)Ordered By: Isai Ornelas on 03-12-2023 RBC (Bld) [#/Vol] 4.98 10*6/uL 4.2-5.4 [facility] Blood hemoglobin measurement (mass/volume)Ordered By: Isai Ornelas on 03-12-2023 Hemoglobin (Bld) [Mass/Vol] 11.7 g/dL 12.0-15.0 [facility] Blood platelet mean volumeOr dered By: Isai Ornelas on 03-12-2023 Platelet mean volume (Bld) [Entitic vol] 9.6 fL 6.2-12.0 [facility] Determination of erythrocyte mean corpuscular volume (MCV)Ordered By: Isai Ornelas on 03-12-2023 MCV (RBC) [Entitic vol] 77.5 fL 81-99 [facility] Hematocrit Auto (Bld) [Volum e fraction]Ordered By: Isai Ornelas on 03-12-2023 Hematocrit (Bld) [Volume fraction] 38.6 % 37-47 [facility] Laboratory - Chemistry and C hemistry - challengeOrdered By: Isai Ornelas on 03-12-2023 CO2 [Moles/Vol] 28.0 mmol/L 21.0-32.0 [facility] Urea nitrogen/Creatinine [Mass ratio] 23.9 mg/mg 10-20 [facility] Laboratory - Hematology and Cell countsOrdered By: Isai Ornelas on 03-12-2023 Erythrocyte distribution width (RBC) [Entitic vol] 45.8 fL 35.1-43.9 [facility] Erythrocyte distribution width (RBC) [Ratio] 16.3 % 11.6-14.6 [facility] MCH (RBC) [Entitic mass] 23.5 pg 27.0-32.0 [facility] MCHC Auto (RBC) [Mass/Vol]Or dered By: Isai Ornelas on 03-12-2023 MCHC (RBC) [Mass/Vol] 30.3 g/dL 32-36 [facility] No Panel InformationOrdered By: Isai Ornelas on 03-12-2023 Estimated GFR (MDRD) Amer 86 mL/min >60 [facility] Comment on above: GFR Calc Estimated GFR (MDRD) Non-Af Amer 71 mL/min >60 [facility] Comment on above: Non- GFR Calc Platelets bldOrdered By: Ottoniel Ornelas on 03-12-2023 Platelets (Bld) [#/Vol] 444 10*3/uL 150-450 [facility] Serum or plasma calcium sandor urement (mass/volume)Ordered By: Isai Ornelas on 03-12-2023 Calcium [Mass/Vol] 9.1 mg/dL 8.5-10.1 [facility] Serum or plasma creatinine m easurement (mass/volume)Ordered By: Isai Ornelas on 03-12-2023 Creatinine [Mass/Vol] 0.84 mg/dL 0.55-1.02 [facility] Comment on above: The validity of the calculated GFR & GFRAA in patients over 70 years has not been determined. Clinical correlation is essential. Serum or plasma urea nitroge n measurement (mass/volume)Ordered By: Isai Ornelas on 03-12-2023 Urea nitrogen [Mass/Vol] 20 mg/dL 7-18 [facility] Thin prep Papanicolaou smear with manual screeningOrdered By: Isai Ornelas on 03-12-2023 Thin prep Papanicolaou smear with manual screening 8 5-15 [facility] Whole blood hemoglobin A1c/t otal hemoglobin ratio (mass fraction)Ordered By: Isai Ornelas on 03-12-2023 HbA1c (Bld) [Mass fraction] 7.6 % 3.8-5.6 [facility] Comment on above: Normal < 5.7 % Predi abetic 5.7 - 6.4 % Diabetic >or= 6.5 % Please note range changes. SURGICAL PATHOLOGYon 023 Case Report Surgical Pathology R eport Case: [id number] Authorizing Provider: Tosin Arredondo DO Collected: 01/14/2023 02:13 PM Ordering Location: Procedures Received: 01/14/2023 02:50 PM Pathologist: Mary Joy MD Specimens: A) - DUODENUM BIOPSY B) - STOMACH BIOPSY [facility] FINAL DIAGNOSIS A. Duodenum, biopsy - Duodenal mucosa with no significant diagnostic alteration. - No evidence of celiac disease or duodenitis. B. Stomach, biopsy: - Oxyntic mucosa with no significant diagnostic alteration. - No morphologic evidence of Helicobacter pylori organisms. [facility] Gross Description A. DUODENUM BIOPSY Received in formalin are two pieces of lewis-red, soft tissue aggregating to 0.6 x 0.2 x 0.2 cm. Totally submitted in one cassette. B. STOMACH BIOPSY Received in formalin is one piece of lewis, soft tissue measuring 0.8 x 0.2 x 0.2 cm. Totally submitted in one cassette. Gross examination performed at [facility], [facility] [place] [id number] [place] January 14, 2023 9:32 PM [facility] Performing Lab Diagnostic interpret ation performed at [facility], [facility] [place] [id number] CLIA# [id number] Straight Line Press Setter: Jordan Kiser M.D. [facility] CYTOLOGY NON-GYNon Case Report Medical Cytology Rep ort Case: [id number] Authorizing Provider: Tosin Arredondo DO Collected: 01/14/2023 02:14 PM Ordering Location: Procedures Received: 01/14/2023 02:50 PM Pathologist: Jose Fuentes MD Specimen: ESOPHAGEAL BRUSH [facility] FINAL DIAGNOSIS A - ESOPHAGEAL BRUSH : Negative for malignant cells. 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 [facility] Gross Description A. ESOPHAGEAL BRUSH 30 cc hazy colorless CytoLyt with brush with particles. ThinPrep prepared. [facility] Performing Lab Technical component, accounting support specialist screening performed at [facility], [address], [facility] [address] CLIA# [id number] Diagnostic interpretation performed at [facility], [address], [facility] [address] CLIA# [id number] Straight Line Press Setter: Jordan Kiser M.D. [facility] ANES POSTPROC EVALon 023 ANES POSTPROC EVAL HNO ID: [id number] Author: Huey Skinner MD Service: Anesthesiology Author [...] January 14, 2023 TIME: 2:28 PM CSN: [id number] [facility] ANES PRE-OPon 01-14-2023 ANES PRE-OP HNO ID: [id number] Author: Huey Skinner MD Service: Anesthesiology Author [...] and consent discussed: yes. Patient / Responsible Republican agrees to proceed: yes Patient / Surrogate [...] mouth once daily. - blood sugar diagnostic (Card [employer]CH ULTRA TEST) test strip Monitor blood sugar [...] of 01/14 (more content not included)... Normal [facility] CYTOLOGY NON-GYNon 3 CASE REPORT [facility] Comment on above: Order Comment: Speci men Type: BRONCHIAL BRUSHINGS SPECIMEN Ordering Facility: [facility] Address: [address] [place] [address] Result Comment: [facility] Cytology Report Case: [id number] Authorizing Provider: Tosin Arredondo DO Collected: 01/14/2023 02:14 PM Ordering Location: Procedures Received: 01/14/2023 02:50 PM Pathologist: Jose Fuentes MD Specimen: ESOPHAGEAL BRUSH Performed By: #### C KIRK #### [facility] CLIA [id number] [address] [facility] [place] [address] [place] [facility] CLIA [id number] [address] [facility] [address] FINAL DIAGNOSIS [facility] Comment on above: Order Comment: Speci men Type: BRONCHIAL BRUSHINGS SPECIMEN Ordering Facility: [facility] Address: [address] [place] [address] Result Comment: A - ESOPHAGEAL BRUSH: Negative for malignant cells. 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 Performed By: #### C YTONON #### [facility] CLIA [id number] [address] LABORATORY CLIA [id number] [address] [place] [address] FINAL PERFORMING LAB [facility] Comment on above: Order Comment: Speci men Type: BRONCHIAL BRUSHINGS SPECIMEN Ordering Facility: [facility] Address: [address] [place] [address] Result Comment: Tech nical component, accounting support specialist screening performed at [facility], [address] [place], [place] [address] CLIA# [id number] Diagnostic interpretation performed at [facility], [address] [place], [place] [address] CLIA# [id number] Straight Line Press Setter: Jordan Kiser M.D. Performed By: #### C YTONON #### [facility] CLIA [id number] [address] [place] [address] LABORATORY CLIA [id number] GROSS DESCRIPTION [facility] Comment on above: Order Comment: Speci men Type: BRONCHIAL BRUSHINGS SPECIMEN Ordering Facility: [facility] Address: [address] [place] [address] Result Comment: A. E SOPHAGEAL BRUSH 30 cc hazy colorless CytoLyt with brush with particles. ThinPrep prepared. Performed By: #### C YTONON #### [facility] CLIA [id number] [address] [place] [address] [place] [facility] CLIA [id number] [address] [place] [address] [facility] EGD DIAGNOSTICon 01-14-2023 [facility] GLUCOSE, BLOOD (POC)on 01-14 Glucose [Mass/Vol] 140 mg/dL Abnormal 74 - 99 mg/dL [facility] HISTORY PHYSICALon HISTORY PHYSICAL HNO ID: [id number] Author: Tosin Arredondo DO Service: Gastroenterology Author [...] MAC Additional Comments: None Tosin Arredondo DO [facility] SURGICAL PATHOLOGYon 023 CASE REPORT [facility] Comment on above: Order Comment: Speci men Type: TISSUE SPECIMEN Ordering Facility: [facility] Address: [address] [facility] [place] [address] Result Comment: Surg ica Pathology Report Case: [id number] Authorizing Provider: Tosin Arredondo DO Collected: 01/14/2023 02:13 PM Ordering Location: Procedures Received: 01/14/2023 02:50 PM Pathologist: Mary Joy MD Specimens: A) - DUODENUM BIOPSY B) - STOMACH BIOPSY Performed By: #### S #### [facility] CLIA [id number] [address] [place] [place] [address] FINAL DIAGNOSIS [facility] Comment on above: Order Comment: Speci men Type: TISSUE SPECIMEN Ordering Facility: [facility] Address: [address] [place] [address] Result Comment: A. D uodenum, biopsy - Duodenal mucosa with no significant diagnostic alteration. - No evidence of celiac disease or duodenitis. B. Stomach, biopsy: - Oxyntic mucosa with no significant diagnostic alteration. - No morphologic evidence of Helicobacter pylori organisms. Performed By: #### S #### [facility] CLIA [id number] [address] [place] [address] OF [facility] FINAL PERFORMING LAB [facility] Comment on above: Order Comment: Speci men Type: TISSUE SPECIMEN Ordering Facility: [facility] Address: [address] [place] [address] Result Comment: Diag nostic interpretation performed at [facility], [address] [place] [address] CLIA# [id number] Straight Line Press Setter: Jordan Kiser M.D. Performed By: #### S #### [facility] CLIA [id number] [address] [place] [address] OF [place] GROSS DESCRIPTION [facility] Comment on above: Order Comment: Speci men Type: TISSUE SPECIMEN Ordering Facility: [facility] Address: [address] [place] [address] Result Comment: A. D UODENUM BIOPSY Received in formalin are two pieces of lewis-red, soft tissue aggregating to 0.6 x 0.2 x 0.2 cm. Totally submitted in one cassette. B. STOMACH BIOPSY Received in formalin is one piece of lewis, soft tissue measuring 0.8 x 0.2 x 0.2 cm. Totally submitted in one cassette. Gross examination performed at [facility], [address] [place] [address] January 14, 2023 9:32 PM Performed By: #### S #### [facility] CLIA [id number] [address] [place] [address] [place] Upper GI endoscopyon 023 Upper GI endoscopy [facility] Gastrointestinal Endoscopy Patient Name: Janessa Baron Procedure Date: 01/14/2023 1:58 PM Date of : 1950 Admit Type: Outpatient Age: 72 Room: [place] [address] Gender: Female Note Status: Finalized Attending MD: [...] referring physician. Procedure Code(s): --- Professional --- 13710, Esophagogastroduodenoscop y, flexible, transoral; with biopsy, single or multiple Diagnosis Code(s): --- Professional --- K22.89, Other specified disease of esophagus K29.70, Gastritis, unspecified, without bleeding R14.2, Eructation CPT copyright 2020 [employer]. All rights reserved. The codes documented in this report are preliminary and upon professional benefits sales consultant review may be revised to meet current compliance requirements. Attending Participation: I personally performed the entire procedure. Scope In: 2:11:18 PM Scope Out: 2:16:26 PM DO Tosin Ames DO 01/14/2023 2:20:32 PM This report has been signed electronically by Tosin Arredondo DO Number of Addenda: 0 Note Initiated On: 01/14/2023 1:58 PM Estimated Blood Loss: Estimated blood loss was minimal. [facility] XR ABD 2V SUPINE W UPR/DECUB [...] IMPRESSION: No obstruction or free air seen 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: LOUIS Transcribe Date/Time: Jan 07 2023 7:08A Dictated by : DELILAH NY MD This examination was interpreted and the report reviewed and electronically signed by: DELILAH NY MD on Jan 07 2023 7:08AM EST [id number] [facility] XR ABDOMEN 2V ROUTINE SUPINE W UPRIGHT/DECUB/CTLon 01-06-2023 [facility] Glucose Glucometer (dC) [M ass/Vol]Ordered By: Al Perez on 01-04-2023 Glucose [Mass/Vol] 144 mg/dL 74-106 [facility] Comment on above: MANAGEMENT OF PATIEN T CARE PER NURSING PROTOCOL 36on 12-25-2022 36 Called patient. Documented in separate encounter. Elsie Pedraza, PATRICIA - LAST SAWYER 12/25/22 [facility] 36 Returned patient's c all. Patient reportedly [...] specialist to assess if the problem continues. Elsie Pedraza APRN - LAST SAWYER 12/25/22 [facility] 36 Home care nurse also calling in and patient blood pressure is 168/88 and does mention about her continuing burping and that the reglan is making patient anxious Please advise [facility] 36 Patient is calling in and patient is having bad gas bubbles ever since surgery. I do see that PATRICIA Batres addressed this on 12/22/22 but says nothing is working and wondering if any other suggestions? They are going to GI doctor on 12/30 Per Medardo note below - Advised she avoid high gas producing food - Added Simethicone - Added Reglan - Recommend she eat and follow with her known GI doctor Please advise [phone] [facility] Absolute lymphocyte countOrd ered By: Dr. Perez on 12-22-2022 Lymphocytes Auto (Unsp spec) [#/Vol] 3.15 10*3/uL 0.83-4.51 [facility] Basophil percentageOrdered B y: Dr. Perez on 12-22-2022 Basophils/100 WBC (Bld) 0.8 % 0-1 [facility] Bilirubin [Mass/Vol] 0.30 mg/dL 0.20-1.00 [facility] Comment on above: For patients on eltr ombopag therapy, use of Dimension [place] TBIL is not recommended. Chloride [Moles/Vol] 98 mmol/L 98-107 [facility] Eosinophils/100 WBC (Bld) 6.5 % 0-5 [facility] Glucose [Mass/Vol] 175 mg/dL 74-106 [facility] Comment on above: Fasting Glucose resu lt greater than or equal to 126 mg/dL suggests DIABETES MELLITUS per A.D.A. criteria. Neutrophils (Bld) [#/Vol] 5.2 10*3/uL 2.0-7.7 [facility] Neutrophils/100 WBC (Bld) 51.2 % 47-70 [facility] Potassium [Moles/Vol] 3.6 mmol/L 3.5-5.1 [facility] Protein [Mass/Vol] 7.8 g/dL 6.4-8.2 [facility] Sodium [Moles/Vol] 135 mmol/L 136-145 [facility] WBC (Bld) [#/Vol] 10.2 10*3/uL 4.4-11.0 [facility] Blood erythrocytes count (nu mber/volume)Ordered By: Dr. Perez on 12-22-2022 RBC (Bld) [#/Vol] 4.33 10*6/uL 4.2-5.4 [facility] Blood hemoglobin measurement (mass/volume)Ordered By: Dr. Perez on 12-22-2022 Hemoglobin (Bld) [Mass/Vol] 11.5 g/dL 12.0-15.0 [facility] Blood lymphocytes/100 leukoc ytesOrdered By: Dr. Perez on 12-22-2022 Lymphocytes/100 WBC (Bld) 31.0 % 19-41 [facility] Blood monocytes/100 leukocyt esOrdered By: Dr. Perez on 12-22-2022 Monocytes/100 WBC (Bld) 10.2 % 0-10 [facility] Blood platelet mean volumeOr dered By: Dr. Perez on 12-22-2022 Platelet mean volume (Bld) [Entitic vol] 8.7 fL 6.2-12.0 [facility] Determination of erythrocyte mean corpuscular volume (MCV)Ordered By: Dr. Perez on 12-22-2022 MCV (RBC) [Entitic vol] 84.5 fL 81-99 [facility] Hematocrit Auto (Bld) [Volum e fraction]Ordered By: Dr. Perez on 12-22-2022 Hematocrit (Bld) [Volume fraction] 36.6 % 37-47 [facility] Laboratory - Chemistry and C hemistry - challengeOrdered By: Dr. Perez on 12-22-2022 ALP [Catalytic activity/Vol] 138 U/L 45-117 [facility] ALT [Catalytic activity/Vol] 20 U/L 13-56 [facility] CO2 [Moles/Vol] 27.0 mmol/L 21.0-32.0 [facility] Globulin (S) [Mass/Vol] 4.1 g/dL 2.2-4.2 [facility] Urea nitrogen/Creatinine [Mass ratio] 19.7 mg/mg 10-20 [facility] Laboratory - Hematology and Cell countsOrdered By: Dr. Perez on 12-22-2022 Erythrocyte distribution width (RBC) [Entitic vol] 43.8 fL 35.1-43.9 [facility] Erythrocyte distribution width (RBC) [Ratio] 14.2 % 11.6-14.6 [facility] Immature granulocytes/100 WBC (Bld) 0.300 % 0.0-0.9 [facility] Comment on above: IG% - Immature Granu locytes (promyelocytes, myelocytes and metamyelocytes) > 1% indicates that a LEFT SHIFT is Present. MCH (RBC) [Entitic mass] 26.6 pg 27.0-32.0 [facility] Nucleated RBC/100 WBC (Bld) [Ratio] 0 % 0-5 [facility] MCHC Auto (RBC) [Mass/Vol]Or dered By: Dr. Perez on 12-22-2022 MCHC (RBC) [Mass/Vol] 31.4 g/dL 32-36 [facility] No Panel InformationOrdered By: Dr. Perez on 12-22-2022 Estimated GFR (MDRD) Amer 56 mL/min >60 [facility] Comment on above: GFR Calc Estimated GFR (MDRD) Non-Af Amer 46 mL/min >60 [facility] Comment on above: Non- GFR Calc Troponin I High Sensitivity 7 pg/mL 3.0-54.0 [facility] Comment on above: Please Note: [place] t Units and Gender Specific Reference Ranges. For more information see Policy Stat Procedure [place] High Sensitivity Troponin (TNIH) and attachments. Office Visiton 12-22-2022 Follow-up visit [id number] Janessa Baron 1950 F Date Provider Department Center 12/22/2022 [id number]-[facility]WBIALEJANDRA [facility] CT None Family History Problem Relation Age of Onset Stroke Mother Heart disease Mother Colon cancer Sister Diabetes Sister Thyroid cancer Brother Family Status - Relation Status Age at Mother Father Sister Brother Level of Service:[id number] MD POSTOP FOLLOW UP VISIT RELATED TO ORIGINAL PX Reason for Visit and Comments: Follow-up [007883] Normal [facility] Platelets bldOrdered By: Dr. Perez on 12-22-2022 Platelets (Bld) [#/Vol] 408 10*3/uL 150-450 [facility] Progress Noteon 12-22-2022 Progress Note [facility] Medical Group: CT [facility] [address] [facility] [address] Dept: [phone] Dept Loc: [phone] Visit type: Established patient Reason for Visit: Follow-up Assessment and Plan 1. SOB (shortness of breath) 2. CAD in redding artery 3. Belching - Advised she avoid [...] to her SOB. She went to the [place] ED yesterday and had a full work [...] Clavulanic Acid Hives Dayquil Severe + Vapocool [Hpwframdtmqxt-Gv-Ks-Apap ] Hives Dextromethorphan Hives Doxylamine Hives Iodinated [...] 1 tablet by mouth daily. nystatin (Mycostatin) 985439 UNIT/GM powder Apply to affected area 3 times daily 15 g 0 omega-3 (Fish Oil) 1000 MG capsule Take 1,000 mg by mouth daily. om (more content not included)... [facility] Serum or plasma albumin sandor urement (mass/volume)Ordered By: Dr. Perez on 12-22-2022 Albumin [Mass/Vol] 3.7 g/dL 3.2-5.0 [facility] Serum or plasma albumin/glob ulin mass ratioOrdered By: Dr. Perez on 12-22-2022 Albumin/Globulin [Mass ratio] 0.9 {ratio} 0.9-2.4 [facility] Serum or plasma calcium sandor urement (mass/volume)Ordered By: Dr. Perez on 12-22-2022 Calcium [Mass/Vol] 9.4 mg/dL 8.5-10.1 [facility] Serum or plasma creatinine m easurement (mass/volume)Ordered By: Dr. Perez on 12-22-2022 Creatinine [Mass/Vol] 1.22 mg/dL 0.55-1.02 [facility] Comment on above: The validity of the calculated GFR & GFRAA in patients over 70 years has not been determined. Clinical correlation is essential. Serum or plasma urea nitroge n measurement (mass/volume)Ordered By: Dr. Perez on 12-22-2022 Urea nitrogen [Mass/Vol] 24 mg/dL 7-18 [facility] Thin prep Papanicolaou smear with manual screeningOrdered By: Dr. Perez on 12-22-2022 Thin prep Papanicolaou smear with manual screening 14 U/L 15-37 [facility] Thin prep Papanicolaou smear with manual screening 10 5-15 [facility] XR Chest 2 Viewson 3 No acute cardiopulmonary disease. Report Dictated on Electronically Signed By: Sachin Lowe Electronically Signed Date/Time: 12/22/2022 4:29 PM EDT [facility] Patient Name: JANESSA BARON : 1950 [...] are noted. Sternotomy wires are again noted. [facility] Sachin Lowe MD - 12/22/2022 Patient [...] Electronically Signed Date/Time: 12/22/2022 4:29 PM EDT [employer] [facility] Radiology Study observation (narrative) [employer] XR Chest 2 ViewsOrdered By: Sachin Lowe on 12-22-2022 [employer] Work Phone: 36on 12-21-2022 36 Spoke with [...] go to the ED. She verbalized understanding. [facility] 36 Pt states she is hav [...] post op on 12/24/22 with FERNANDO Ramirez. [facility] 36on 12-14-2022 36 Sent 14 day course o f Diflucan - Also I sent the requested refills [facility] 36 Patient also states she seen PATRICIA Tyler on 12/10 and patient has a yeast infection under breast and nystatin was called in for her and it is not working- she says it is getting worse not better. It is spreading and getting more red and irritated. Patient is calling in and states she needs refills called into [facility] in [place] Lisinopril 5MG Metoprolol 25 MG Jardiance 10 MG Please advise [phone] [facility] Office Visiton 12-10-2022 Follow-up visit [id number] Janessa Baron 1950 F Date Provider Department Center 12/10/2022 82665-LXUZNISBELSIE PEDRAZA [facility] None Family History Problem Relation Age of Onset Stroke Mother Heart disease Mother Colon cancer Sister Diabetes Sister Thyroid cancer Brother Family Status - Relation Status Age at Mother Father Sister Brother Level of Service:59346 MD POSTOP FOLLOW UP VISIT RELATED TO ORIGINAL PX Reason for Visit and Comments: Post-op [483] Follow-up [[id number]] Normal [facility] Progress Noteon 12-10-2022 Progress Note [facility] Medical Group: CT [facility] [address] [facility] [address] Dept: [phone] Dept Loc: [phone] Visit type: Established patient Reason for Visit: Post-op and Follow-up Assessment and Plan 1. S/P CABG x 3 2. 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 Ramiro in [place]. Patient recovery going well, only complaint is [...] Clavulanic Acid Hives Dayquil Severe + Vapocool [Oiovplypapyho-Bl-Kv-Apap ] Hives Dextromethorphan Hives Doxylamine Hives Iodinated Contrast Media Hives Pseudoephedrine Hives Statins Other reaction(s): Other D (more content not included)... [facility] 12-08-2022 36 Instructed to call o valeriaice in am. [place] [id number] 36 Pt states she is fee ling [...] office with any additional questions or concerns. [facility] 36 Left voicemail for p t to call office. Just wanted to see how pt is feeling. [place] [id number] 36 Spoke to pt to check on [...] Wednesday to see how she is doing. [facility] 36on 12-03-2022 36 Name of caller reque sting page:Rody Phone Number of caller: [phone] Facility requesting page: n/a Reason for Page: Has been trying to get a prescription of Zofran called in, patient is nauseous. Provider paged: Dr Harris Practice Name of paged provider: Cardiothoracic Surgery Time Page was sent or provider contacted: 8:08 pm Page Content: Please call Rody of Janessa Baron 54 at [phone] zoivis was supposed to have been called in earlier but has not, patient is very nauseated [facility] 36 Name of caller reque sting page:Rody Phone Number of caller: [phone] Facility requesting page: Reason for Page: Pt is out of zofran Provider paged: Practice Name of paged provider: Cardiothoracic Surgery Page Placed to #: score caller finder Time Page was sent or provider contacted: 6:48 Page Content: Pt called into the office today due to being very nauseated and having dry heaves she was told the Zofran was being called in but it was not [facility] 36 Called and talked wi th pt- c/o being very nauseated and having dry heaves. Pt is able to keep Ensure and water down but has no appetite for solid food. Pt states Zoivis worked for her after surgery while in hospital and is requesting for prescription to be called into her pharmacy. Verified pharmacy [facility] on [place], [place]. [facility] 36 Lisa from [facility] called in and the patient has been nauseated and vomitting for a couple days. She has taken over the counter meds, but not working. She would like zofran or similar called in to the [facility] in [place] if possible. [facility] 12-02-2022 [facility] Patient Choice Patient Name: JANESSA BARON Date of : 1950 [facility] 12-01-2022 JODEE Spoke with patient a nd at bedside, notified [facility] will be able to accept. No further discharge needs expressed. [facility] liaison aware of dc today. [facility] Progress Noteon 12-01-2022 Progress Note Physical Therapy [...] The primary encounter diagnosis was CAD in redding artery. A diagnosis of Coronary 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coronary bypass graft of redding heart, unspecified whether angina present was also [...] Caregiver Present: Yes () Diagnosis: CAD in redding artery s/p CABG x3 11/26 Follows Commands: [...] Good Sitting (more content not included)... [facility] Progress Note ----- ----- Attestation signed [...] Requesting Consult: cts PCP: KALI BACON Outpt Bill Distributor: No ASSESSMENT: CABGx3 Stress hyperglycemia DM2 with hyperglycemia without group home insulin use HTN HLP PLAN: Continue lantus [...] injections Outpt Follow Up-- PCP- lives in [place] SUBJECTIVE/HPI: CHIEF COMPLAINT: No chief complaint on [...] mg, Oral, (more content not included)... [facility] XR CHEST 1 VIEWon 12-01-2022 XR [...] Signed Date/Time: 12/01/2022 7:47 AM EDT [facility] [id number] 11-30-2022 [id number] Received notice that [facility] will be unable to [...] service location. Referrals have been sent via [employer]. Liaison to discuss available agencies to accept case with patient upon receiving responses. [facility] Progress Noteon 11-30-2022 Progress Note Nutrition Assessment [...] muscle mass loss Fluid Accumulation: Mild Extremities Childhood Teacher Strength: Not Performed Nutrition Assessment: Pt remains [...] copy of heart healthy diet handout with [facility] [address] phone number and reviewed recommendations. Also provided plate method handout and reviewed recommendation for up to 60 g/meal carb diet, showed pt where portion sizes per serving can be found on handout and reviewed which foods contain carb. Pt and spouse verbalizedunderstanding. No questions at this time. Estimated Daily Nutrient Needs: Energy Requirements Based On: Kcal/kg Weight Used for Energy Requirements: [place] (25-30 kcal/kg) Weight for Energy Calculation (kg): 52.3 kg Total Energy Requirements (kcals/day): 6296-2818 Weight Used for Protein Requirements: [place]vere (1.2-1.5 g/kg) Weight in Kg Used for [...] 3.2* 3.5 CL 102 98 98 CO2 24 28 BUN 18* 21* 21* CREATININE 0.99 0.94 1.10* GLUCOSE 160* 189* 149* CALCIUM 8.3* 8.1* 8.3* MG 1.6 1.3* 1.7 Recent Labs 11/29/22 0751 11/29/22 1152 11/29/22 1641 11/29/22 2028 11/30/22 0724 11/30/22 1144 POCGLU 232* 189* 81 [...] 11/10/22, 205# on 09/08/22, 198# on 07/30/22) [place] Body Weight (lbs) (Calculated): 115 lbs [place] Body Weight (Kg) (Calculated): 52 kg % [place] Body Weight (Calculated): 179.6 % BMI (kg/m2) (Calculated): 36.6 BMI Categories: Obese Class 2 (BMI 35.0 -39.9) Wt Readings from Last 10 Encounters: 11/30/22 93.7 kg (206 lb 8 oz) 11/20/22 88.8 (more content not included)... [facility] Progress Note ----- ----- Attestation signed by Girma Lazaro MD at 11/30/2022 5:12 PM I have personally performed a face to face diagnostic evaluation on this patient. In addition, I have reviewed the resident's/TRAVEL SERVICES PROFESSIONAL/KILN FIREMAN's care plan and agree with those findings [...] imaging are reviewed as detailed in the resident's/TRAVEL SERVICES PROFESSIONAL/KILN FIREMAN's note ----- Per meds to beds- lantus pen 35$ / mo Priced just in case needed on DC Aminah Ly, MANAGER TRUCK - LAST SAWYER [facility] Progress Note Physical Therapy Facility/Department: 1T Physical [...] throughout Tx. Pt was able to ambulate ~208aix3 without an AD this Tx and completed stair training at [employer]. Pt took x1 seated rest break after [...] The primary encounter diagnosis was CAD in redding artery. A diagnosis of Coronary 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coronary bypass graft of redding heart, unspecified whether angina present was also [...] Caregiver Present: Yes () Diagnosis: CAD in redding artery s/p CABG x3 11/26 Follows Commands: [...] guard N (more content not included)... [facility] Progress Note Occupational Therapy Facility/Department: T1 Occupational [...] The primary encounter diagnosis was CAD in redding artery. A diagnosis of Coronary 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coronary bypass graft of redding heart, unspecified whether angina present was also [...] [place] General Comments Comments: Pt reported pain /10 incision site on chest- nsg informed Patient [...] Factors: SBA to doff gripper socks using display card writer + tactile cues for increased technique & [...] to hallway and (more content not included)... Normal [facility] Progress Note ----- ----- Attestation signed by Girma Lazaro MD at 11/30/2022 5:20 PM I have personally performed a face to face diagnostic evaluation on this patient. In addition, I have reviewed the resident's/TRAVEL SERVICES PROFESSIONAL/KILN FIREMAN's care plan and agree with those findings [...] imaging are reviewed as detailed in the resident's/TRAVEL SERVICES PROFESSIONAL/KILN FIREMAN's note ----- Department of Internal Medicine Division of Endocrinology, Diabetes, & Metabolism Endocrinology Note Patient Name: Janessa Baron : 1950 AGE: 72 y.o. Room[facility]Bed: [facility] A Admission Date: 11/26/2022 Visit Date: 11/30/2022 Reason for Endocrine Consult: post op heart Provider/Team Requesting Consult: cts PCP: KALI BACON Outpt Bill Distributor: No ASSESSMENT: CABGx3 Stress hyperglycemia DM2 with hyperglycemia without group home insulin use HTN HLP PLAN: Continue lantus [...] Farxiga and jardiance are both 45$ /mo Patient agreeable [...] SGLT2 and GLP-1-each are $45 per month diabetes educator to teach GLP-1 injections However- patient [...] Cervical back (more content not included)... Normal [facility] XR CHEST 1 VIEWon 11-30-2022 XR [...] Signed Date/Time: 11/30/2022 5:48 AM EDT Normal [facility] [id number] 11-29-2022 [id number] Coach following case for Discharge Needs. Left message at [phone] to discuss home care needs Normal [facility] CARECOORDon 11-29-2022 CARECOORD Chest tubes assessed : no air leak, subcutaneous air noted. Chest tubes removed without difficulty and dressing applied. Patient tolerated well. Patient and nurse educated on possible complications to observe for. Will continue to monitor. Normal [facility] ECG 12-LEADon 11-29-2022 ECG 12-LEAD IMPRESSION: Sinus rhythm with frequent PACs Probable LVH with secondary repol abnrm Inferior infarct, old Electronically Signed On 11-29-2022 10:11:59 EDT by Pasquale Palacio [facility] Progress Noteon 11-29-2022 Progress Note Physical Therapy Facility/Department: U Physical Therapy Daily Treatment Note NAME: Janessa [...] The primary encounter diagnosis was CAD in redding artery. A diagnosis of Coronary 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coronary bypass graft of redding heart, unspecified whether angina present was also [...] Caregiver Present: Yes () Diagnosis: CAD in redding artery s/p CABG x3 11/26 Follows Commands: [...] Inpatient Mobility Raw Score: 14 Mobility Inpatient [facility] G-Code Modifier: CL Goals Encounter Problems Encounter [...] Expected End: 12/18 (more content not included)... Normal [facility] Progress Note ----- ----- Attestation signed by Girma Lazaro MD at 11/29/2022 4:19 PM I have personally performed a face to face diagnostic evaluation on this patient. In addition, I have reviewed the resident's/TRAVEL SERVICES PROFESSIONAL/KILN FIREMAN's care plan and agree with those findings [...] imaging are reviewed as detailed in the resident's/TRAVEL SERVICES PROFESSIONAL/KILN FIREMAN's note ----- Department of Internal Medicine Division of Endocrinology, Diabetes, & Metabolism Endocrinology Note Patient Name: Jaenssa Baron : 1950 AGE: 72 y.o. 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 Normal [facility] Progress Note PATIENT NAME: Janessa suarez [...] Blood Conservation: None noted in post-operative period C Web Developer: [facility] Progress Note ----- ----- Attestation signed by Isabella Cruz MD at 11/29/2022 4:47 PM I have personally performed a slpd-uh-sigp diagnostic evaluation on this patient on date of service 11/29/22. History, labs, imaging studies, and electronic medical record have been reviewed by me. This note documented by the []warehouse order filler [x]DALY reflects my history, exam, and medical [...] Blood Conservation: None noted in post-operative period C Web Developer: Crys (more content not included)... Normal [facility] XR CHEST 1 VIEWon 11-29-2022 XR [...] Electronically Signed Date/Time: 11/29/2022 7:14 AM EDT [facility] XR Chest Single viewon 11-29 Surgical changes wit h probable atelectasis at the left lung base. No new consolidation. Report Dictated on Electronically Signed By: Preston Dueñas Electronically Signed Date/Time: 11/29/2022 7:14 AM EDT [facility] Patient Name: JANESSA BARON : 1950 [...] is sharp but the left is obscured. [facility] Preston Dueñas MD - 11/29/2022 [facility] 1950 [id number] Exam Date/Time: 11/29/2022 05:19 Procedure: XR CHEST [...] Electronically Signed Date/Time: 11/29/2022 7:14 AM EDT [employer] Radiology Study observation (narrative) [employer] XR Chest Single viewOrdered By: Preston Dueñas on 11-29-2022 [employer] Work Phone: Progress Noteon 11-28-2022 Progress Note ----- ----- Attestation signed by Isabella Cruz MD at 11/28/2022 5:23 PM I have personally performed a thjm-lf-qlxr diagnostic evaluation on this patient on date of service 11/28/22. History, labs, imaging studies, and electronic medical record have been reviewed by me. This note documented by the []warehouse order filler [x]DALY reflects my history, exam, and medical [...] of day develope (more content not included)... [facility] Progress Note ----- ----- Attestation signed by Girma Lazaro MD at 11/28/2022 4:16 PM I have personally performed a face to face diagnostic evaluation on this patient. In addition, I have reviewed the resident's/TRAVEL SERVICES PROFESSIONAL/KILN FIREMAN's care plan and agree with those findings [...] imaging are reviewed as detailed in the resident's/TRAVEL SERVICES PROFESSIONAL/KILN FIREMAN's note ----- Department of Internal Medicine Division of Endocrinology, Diabetes, & Metabolism Endocrinology Note Patient Name: Janessa Baron : 1950 AGE: 72 y.o. 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 Normal [facility] XR ABDOMEN 1 VIEWon 11-29-19 XR ABDOMEN 1 VIEW Patient Name: JANESSA [...] Electronically Signed Date/Time: 11/28/2022 5:24 PM EDT [facility] XR Abdomen Single viewon 1. NG tube tip in the mid stomach. Report Dictated on Electronically Signed By: Sebastián Beckwith Electronically Signed Date/Time: 11/28/2022 5:24 PM EDT [facility] Patient Name: JANESSA BARON : 1950 [...] the mid stomach. Nonspecific bowel gas pattern. [facility] Sebastián Beckwith MD - 11/28/2022 Patient [...] Electronically Signed Date/Time: 11/28/2022 5:24 PM EDT [facility] Radiology Study observation (narrative) [employer] XR Abdomen Single viewOrdere d By: Sebastián Beckwith on 11-28-2022 [employer] Work Phone: XR CHEST 1 VIEWon 11-28-2022 XR CHEST 1 VIEW Patient Name: JANESSA BARON : 1950 Exam Date/Time: 11/28/2022 05:19 Procedure: XR CHEST 1 VIEW Ordering Provider: PEDRAZA KYLE Reason For Exam: Shortness of breath Clinical History: Shortness of breath Comparison: 11/27/2022 Technique: Single AP radiograph of the chest. Findings: Right IJ Milford-Rubi catheter has been removed with residual right [...] Signed Date/Time: 11/28/2022 8:09 AM EDT Normal [facility] XR Chest Single viewon 11-28 Impression: Limited inspiration with probable small bilateral pleural effusions and bibasilar atelectasis. Report Dictated on Electronically Signed By: Gautam Delvalle Electronically Signed Date/Time: 11/28/2022 8:09 AM EDT [facility] Patient Name: JANESSA BARON : 1950 Exam Date/Time: 11/28/2022 05:19 Procedure: XR CHEST 1 VIEW Ordering Provider: PEDRAZA KYLE Reason For Exam: Shortness of breath Clinical History: Shortness of breath Comparison: 11/27/2022 Technique: Single AP radiograph of the chest. Findings: Right IJ Milford-Rubi catheter has been removed with residual right IJ sheath in place. Median sternotomy wires are present. Mediastinal drain and left basilar chest tube are present with no sizable pneumothorax. Limited inspiration of the lungs with diffuse interstitial coarsening and basilar patchy opacities. Cardiomegaly is unchanged. [facility] Mook, Gautam Alvarado MD - 11/28/2022 Patient Name: JANESSA BARON : 1950 [id number] Exam Date/Time: 11/28/2022 05:19 Procedure: XR CHEST 1 VIEW Ordering Provider: PEDRAZA KYLE Reason For Exam: Shortness of breath Clinical History: Shortness of breath Comparison: 11/27/2022 Technique: Single AP radiograph of the chest. Findings: Right IJ Milford-Rubi catheter has been removed with residual right [...] Electronically Signed Date/Time: 11/28/2022 8:09 AM EDT [facility] Radiology Study observation (narrative) [employer] XR Chest Single viewOrdered By: Gautam Delvalle on 11-28-2022 [employer] Work Phone: CARECOORDon 11-27-2022 [facility] Care Managment Initi al Assessment Date: 11/27/2022 Patient Name: Janessa Baron : 1950 Patient Information Source of Information: Patient Cognition/Language: WFL - Within Functional Limits Permission given to speak with patient school admissions representative/caregiver as indicated: Yes Confirmation of Payer with patient/family: Yes Payer Name: [facility] : No Confirmation of Primary Care Physician: [...] Living Prescription Coverage: Yes Pharmacy Used: [facility] [place] [place] Medication Management: Independent Transportation/Shopping: Assistance Provider Transportation/Shopping [...] pending. Discharge plan home with Spouse and [facility] pending evaluations. 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 Home is single level with walk in [...] The primary encounter diagnosis was CAD in redding artery. A diagnosis of Coronary 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coronary bypass graft of redding heart, unspecified whether angina present was also [...] With device?: No Transfer Assistance: Independent Active Shell Molder: Yes Mode of Transportation: Car Occupation: Retired [...] End: 12/25/22 (more content not included)... Normal [facility] Progress Note Physical Therapy Facility/Department: U Physical Therapy Initial Evaluation NAME: Janessa Baron : 1950 Date of Service: 11/27/2022 Discharge Recommendations: Continue to assess pending progress (IPR versuse home with home health.) PT Equipment Recommendations Other: tbd Assessment Assessment: Janessa Baron was admitted on 11/26/22 with CAD in redding artery. She underwent CABG x 3. She [...] The primary encounter diagnosis was CAD in redding artery. A diagnosis of Coronary 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coronary bypass graft of redding heart, unspecified whether angina present was also [...] With device?: No Transfer Assistance: Independent Active Shell Molder: Yes Mode of Transportation: Car Occupation: Retired Objective Observation/Palpation Posture: Fair Observation: She was lethargic, but worked well with PT. AROM RLE (degrees) RLE AROM: WFL AROM LLE (degrees) LLE AROM : WFL Strength RLE Comment: 11/18 Strength LLE Comment: 11/18 Tone RLE RLE Tone: Normotonic Tone LLE [...] x 3 (more content not included)... Normal [facility] Progress Note ----- ----- Attestation signed by Girma Lazaro MD at 11/27/2022 3:31 PM I have personally performed a face to face diagnostic evaluation on this patient. In addition, I have reviewed the resident's/TRAVEL SERVICES PROFESSIONAL/KILN FIREMAN's care plan and agree with those findings [...] imaging are reviewed as detailed in the resident's/TRAVEL SERVICES PROFESSIONAL/KILN FIREMAN's note ----- Department of Internal Medicine Division of Endocrinology, Diabetes, & Metabolism Endocrinology Note Patient Name: Janessa Baron : 1950 AGE: 72 y.o. 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 Normal [facility] Progress Note ----- ----- Attestation signed by Isabella Cruz MD at 11/27/2022 5:36 PM I have personally performed a muiu-wu-nrbc diagnostic evaluation on this patient on date of service 11/27/22. History, labs, imaging studies, and electronic medical record have been reviewed by me. This note documented by the []warehouse order filler [x]DALY reflects my history, exam, and medical [...] Critical Care Attending (more content not included)... [facility] XR CHEST 1 VIEWon 11-27-2022 XR CHEST 1 VIEW Patient Name: JANESSA BARON : 1950 Exam Date/Time: 11/27/2022 05:20 Procedure: XR CHEST 1 VIEW Ordering Provider: PEDRAZA KYLE Reason For Exam: Shortness of breath INDICATION: 72-year-old; shortness of breath. VIEWS: Chest portable-1 image COMPARISON: 11/26/2022 at 13:15 TIME: 5:20 on 11/27/2022 FINDINGS: Interval removal of the endotracheal tube and enteric tube. The right IJ approach Milford-Rubi catheter remains with tip overlying the right [...] Electronically Signed Date/Time: 11/27/2022 5:28 AM EDT [facility] XR Chest Single viewon 11-27 1. Cardiomegaly with pulmonary vascular congestion with small left pleural effusion, not significantly changed. 2. Support devices, as above. Report Dictated on Electronically Signed By: Monica Fuller Electronically Signed Date/Time: 11/27/2022 5:28 AM EDT [facility] Name: [facility]ANESSA BARON : 1950 [id number] Exam Date/Time: 11/27/2022 05:20 Procedure: XR CHEST 1 VIEW Ordering Provider: PEDRAZA KYLE Reason For Exam: Shortness of breath INDICATION: 72-year-old; shortness of breath. VIEWS: Chest portable-1 image COMPARISON: 11/26/2022 at 13:15 TIME: 5:20 on 11/27/2022 FINDINGS: Interval removal of the endotracheal tube and enteric tube. The right IJ approach Milford-Rubi catheter remains with tip overlying the right main pulmonary artery. A left chest tube mediastinal drain remain. Cardiac monitoring wires and leads are present. Median sternotomy wires and clips are present. The trachea is midline. The cardiac silhouette is enlarged. Possible left pleural effusion versus atelectasis. Mild pulmonary vascular congestion. Low lung volumes. [facility] Monica Fuller MD - 11/27/2022 Patient Name: JANESSA BARON : 1950 Exam Date/Time: 11/27/2022 05:20 Procedure: XR CHEST 1 VIEW Ordering Provider: PEDRAZA KYLE Reason For Exam: Shortness of breath INDICATION: 72-year-old; shortness of breath. VIEWS: Chest portable-1 image COMPARISON: 11/26/2022 at 13:15 TIME: 5:20 on 11/27/2022 FINDINGS: Interval removal of the endotracheal tube and enteric tube. The right IJ approach Milford-Rubi catheter remains with tip overlying the right [...] Electronically Signed Date/Time: 11/27/2022 5:28 AM EDT [employer] Radiology Study observation (narrative) [employer] XR Chest Single viewOrdered By: Monica Fuller on 11-27-2022 [employer] Work Phone: [phone] 11-26-2022 [id number] Coach following case for Discharge Needs. Normal [facility] Consulton 11-26-2022 Consult ----- ----- Attestation signed by Girma Lazaro MD at 11/26/2022 4:53 PM I have personally performed a face to face diagnostic evaluation on this patient. In addition, I have reviewed the resident's/TRAVEL SERVICES PROFESSIONAL/KILN FIREMAN's care plan and agree with those findings [...] imaging are reviewed as detailed in the resident's/TRAVEL SERVICES PROFESSIONAL/KILN FIREMAN's note ----- Department of Internal Medicine Division of Endocrinology, Diabetes, & Metabolism Endocrinology Note Patient Name: Janessa Baron : 1950 AGE: 72 y.o. Room/Bed: [facility] A Admission Date: 11/26/2022 Visit Date: 11/26/2022 Reason for Endocrine Consult: post op heart Provider/Team Requesting Consult: cts PCP: KALI BACON Outpt Bill Distributor: No ASSESSMENT: cabgx3 dm2 with hyperglycemia without group home insulin use Htn/hld PLAN: Keep on insulin [...] niCARdipine, 3- (more content not included)... Normal [facility] Consult ----- ----- Attestation signed by Isabella Cruz MD at 11/26/2022 7:30 PM I have personally performed a quwt-va-ppiz diagnostic evaluation on this patient on date of service 11/26/22. History, labs, imaging studies, and electronic medical record have been reviewed by me. This note documented by the []warehouse order filler [x]DALY reflects my history, exam, and medical [...] threatening organ failure is 40 minutes. ----- [facility]: Critical Care Consultation Note Date: 11/26/22 [...] oprim], Clavulanic acid, Dayquil severe + vapocool [uqbeytiyafumv-qs-wb-apap ], Dextromethorphan, Doxylamine, Iodinated contrast media, Pseudoephedrine, [...] Date Taki (more content not included)... Normal [facility] Progress Noteon 11-26-2022 Progress Note Pt extubated per ord er w/o complications. Placed on 6 liters nasal cannula. Normal [facility] XR CHEST 1 VIEWon 11-26-2022 XR CHEST 1 VIEW Patient Name: JANESSA BARON : 1950 Exam Date/Time: 11/26/2022 13:20 Procedure: XR CHEST [...] Electronically Signed Date/Time: 11/26/2022 1:53 PM EDT [facility] XR Chest Single viewon 11-26 1. Status post inter derick open heart surgery. 2. Malposition of endotracheal tube as described. 2 cm of retraction is suggested. 3. Pulmonary vascular congestion and left pleural effusion consistent with congestive heart failure/fluid overload. 4. No evidence of pneumothorax. Report Dictated on Electronically Signed By: Jack Nails Electronically Signed Date/Time: 11/26/2022 1:53 PM EDT [facility] Patient Name: JANESSA BARON : 1950 [facility]#: [id number] Exam Date/Time: 11/26/2022 13:20 Procedure: XR CHEST [...] right pleural effusion or pneumothorax is seen. [facility] Jack Nails MD - 11/26/2022 Patient Name: JANESSA BARON : 1950 [id number] Exam Date/Time: 11/26/2022 13:20 Procedure: XR CHEST [...] Electronically Signed Date/Time: 11/26/2022 1:53 PM EDT [employer] Radiology Study observation (narrative) [employer] XR Chest Single viewOrdered By: Jack Nails on 11-26-2022 [employer] Work Phone: Laboratory - Drug toxicology Ordered By: Dr. Cohen on 11-25-2022 Amphetamines Ql (U) Negative <1000 ng/mL [facility] Benzodiazepines Ql (U) Negative < 200 ng/mL [facility] Cannabinoids Screen Ql (U) Negative < 50 ng/mL [facility] Cocaine Ql (U) Negative < 300 ng/mL [facility] Opiates Ql (U) Negative < 300 ng/mL [facility] No Panel InformationOrdered By: Dr. Cohen on 11-25-2022 MDMA (Ecstasy) Screen Negative < 500 ng/mL [facility] Miscellaneous Test See comment [facility] Comment on above: [id number] 6+OXYCODONE-B UND (ng/mL) DRUG RESULT SCREEN CUTOFF____ Amphetamines,Urine Negative ng/mL 1000 Amphetamine test includes Amphetamine and Methamphetamine.Barbiturates Negative ng/mL 200Benzodiazepines Negative ng/mL 200Cannabinoid Negative ng/mL 20Cocaine (Metab) Negative ng/mL 300Opiates Negative ng/mL 300 Opiates test includes Codeine, Morphine, Hydromorphone, Hydrocodone. Oxycodone/Oxymorphone,Urine Negative ng/mL 300 Test includes Oxydodone and Oxymorphone. TESTING PERFORMED AT [facility]. ORIGINAL REPORT ON FILE IN LAB CONTAINS ADDITIONAL TEST SITE INFORMATION. Urine Barbiturates Screen Negative < 200 ng/mL [facility] Urine Drug Screen Comment [facility] Comment on above: CONFIRMATORY TESTING FOR ALL [...] Urine Methadone Screen Negative < 300 ng/mL [facility] Urine phencyclidine (PCP) de tectionOrdered By: Dr. Cohen on 11-25-2022 Phencyclidine Ql (U) Negative < 25 ng/mL [facility] XR CHEST 2 VIEWSon 3 XR CHEST 2 VIEWS Patient Name: JANESSA BARON : 1950 Exam Date/Time: 11/20/2022 16:05 Procedure: XR CHEST [...] Report Dictated on Electronically Signed By: Cody Clarke Electronically Signed Date/Time: 11/22/2022 2:35 PM EDT [facility] ECG 12-LEADon 11-21-2022 ECG 12-LEAD IMPRESSION: Sinus rhythm PVCs Borderline left axis deviation Electronically Signed On 11-21-2022 10:51:23 EDT by Carrington George [facility] [id number] 11-20-2022 [id number] Patient states she h as started two new medications for her heart and they are causing her to fill sick and vomit. Patient was instructed to call surgeons office to see what her options are for her problems taking new medications. Patient and verbalized understanding. Ekg reviewed by guera KILN FIREMAN. Instructions were given for nasal ointement, body wash and mouth wash for day of surgery. Patient was also given instructions regarding holding lisinopril 1 day prior to surgery and metformin 48 hours piror to surgery patient and voiced understanding [facility] PREPROCINSon 11-20-2022 PREPROCINS Medication List Accurate as [...] call your surgeon. You may use the [employer] parking located at the main entrance on [address] [place] [address] and take the H elevator to the first floor for same day surgery. Take a left after exiting the elevator and check in at the desk. Or- You may use the parking in the Main deck. Take the level one bridge to the H building and follow the signs for same day surgery. Check in at the desk. Additional Instructions: [facility] 36on 11-19-2022 36 Surg proc orders sean brady. Meds sent to [facility] in [place]. PATRICIA Ramirez CNP 11/19/22 [facility] 36on 11-18-2022 36 Patient is scheduled for a CABG and CHERI on 11/26/22 @ 7 am. PAT is 11/20/22 @ [address]pm. Please place surg proc orders. Please e-scribe nasal ointment and mouth rinse. Thank you. [facility] [facility] Office Visiton 11-18-2022 Follow-up visit [id number] Janessa Baron 1950 Date Provider Department Center 11/18/[address] None Family History Problem Relation Age of Onset Stroke Mother Heart disease Mother Colon cancer Sister Diabetes Sister Thyroid cancer Brother Family Status - Relation Status Age at Mother Father Sister Brother Level of Service:50858 MD OFFICE/OUTPATIENT NEW [facility] 60-74 MINUTES Reason for Visit and Comments: New Patient [542] Normal [facility] Progress Noteon 11-18-2022 Progress Note Pre op teaching done with patient and . Instructed to hold NSAIDS 7 days prior to surgery, hold Lisinopril 1 day prior to surgery, hold Metformin 2 days before surgery, and not to take any medications day of surgery. Pharmacy confirmed. All questions answered. Normal [facility] Progress Note error Normal [facility] Progress Note [facility] [address] [facility] [address] Dept: [phone] Dept Loc: [phone] Visit type: New Reason for Visit: Coronary [...] 1 table (more content not included)... Normal [facility] Absolute lymphocyte countOrd ered By: Dr. Rubio on 11-04-2022 Lymphocytes Auto (Unsp spec) [#/Vol] 3.41 10*3/uL 0.83-4.51 [facility] Basophil percentageOrdered B y: Dr. Rubio on 11-04-2022 Basophils/100 WBC (Bld) 0.2 % 0-1 [facility] Chloride [Moles/Vol] 97 mmol/L 98-107 [facility] Eosinophils/100 WBC (Bld) 0.1 % 0-5 [facility] Glucose [Mass/Vol] 218 mg/dL 74-106 [facility] Comment on above: Glucose result great er than or equal to 200 mg/dLsuggests DIABETES MELLITUS per A.D.A. criteria. Neutrophils (Bld) [#/Vol] 9.1 10*3/uL 2.0-7.7 [facility] Neutrophils/100 WBC (Bld) 67.6 % 47-70 [facility] Potassium [Moles/Vol] 4.1 mmol/L 3.5-5.1 [facility] Sodium [Moles/Vol] 135 mmol/L 136-145 [facility] WBC (Bld) [#/Vol] 13.4 10*3/uL 4.4-11.0 [facility] Blood erythrocytes count (nu mber/volume)Ordered By: Dr. Rubio on 11-04-2022 RBC (Bld) [#/Vol] 4.42 10*6/uL 4.2-5.4 [facility] Blood hemoglobin measurement (mass/volume)Ordered By: Dr. Rubio on 11-04-2022 Hemoglobin (Bld) [Mass/Vol] 12.3 g/dL 12.0-15.0 [facility] Blood lymphocytes/100 leukoc ytesOrdered By: Dr. Rubio on 11-04-2022 Lymphocytes/100 WBC (Bld) 25.4 % 19-41 [facility] Blood monocytes/100 leukocyt esOrdered By: Dr. Rubio on 11-04-2022 Monocytes/100 WBC (Bld) 6.0 % 0-10 [facility] Blood platelet mean volumeOr dered By: Dr. Rubio on 11-04-2022 Platelet mean volume (Bld) [Entitic vol] 9.6 fL 6.2-12.0 [facility] Determination of erythrocyte mean corpuscular volume (MCV)Ordered By: Dr. Rubio on 11-04-2022 MCV (RBC) [Entitic vol] 86.4 fL 81-99 [facility] Hematocrit Auto (Bld) [Volum e fraction]Ordered By: Dr. Rubio on 11-04-2022 Hematocrit (Bld) [Volume fraction] 38.2 % 37-47 [facility] Laboratory - Chemistry and C hemistry - challengeOrdered By: Dr. Rubio on 11-04-2022 CO2 [Moles/Vol] 28.0 mmol/L 21.0-32.0 [facility] Urea nitrogen/Creatinine [Mass ratio] 31.9 mg/mg 10-20 [facility] Laboratory - Hematology and Cell countsOrdered By: Dr. Rubio on 11-04-2022 Erythrocyte distribution width (RBC) [Entitic vol] 44.1 fL 35.1-43.9 [facility] Erythrocyte distribution width (RBC) [Ratio] 13.9 % 11.6-14.6 [facility] Immature granulocytes/100 WBC (Bld) 0.700 % 0.0-0.9 [facility] Comment on above: IG% - Immature Granu locytes (promyelocytes, myelocytes and metamyelocytes) > 1% indicates that a LEFT SHIFT is Present. MCH (RBC) [Entitic mass] 27.8 pg 27.0-32.0 [facility] Nucleated RBC/100 WBC (Bld) [Ratio] 0 % 0-5 [facility] MCHC Auto (RBC) [Mass/Vol]Or dered By: Dr. Rubio on 11-04-2022 MCHC (RBC) [Mass/Vol] 32.2 g/dL 32-36 [facility] No Panel InformationOrdered By: Dr. Rubio on 11-04-2022 Estimated GFR (MDRD) Amer 61 mL/min >60 [facility] Comment on above: GFR Calc Estimated GFR (MDRD) Non-Af Amer 51 mL/min >60 [facility] Comment on above: Non- GFR Calc Platelets bldOrdered By: Dr. Rubio on 11-04-2022 Platelets (Bld) [#/Vol] 367 10*3/uL 150-450 [facility] Serum or plasma calcium sandor urement (mass/volume)Ordered By: Dr. Rubio on 11-04-2022 Calcium [Mass/Vol] 9.3 mg/dL 8.5-10.1 [facility] Serum or plasma creatinine m easurement (mass/volume)Ordered By: Dr. Rubio on 11-04-2022 Creatinine [Mass/Vol] 1.13 mg/dL 0.55-1.02 [facility] Comment on above: The validity of the calculated GFR & GFRAA in patients over 70 years has not been determined. Clinical correlation is essential. Serum or plasma urea nitroge n measurement (mass/volume)Ordered By: Dr. Rubio on 11-04-2022 Urea nitrogen [Mass/Vol] 36 mg/dL 7-18 [facility] Thin prep Papanicolaou smear with manual screeningOrdered By: Dr. Rubio on 11-04-2022 Thin prep Papanicolaou smear with manual screening 10 5-15 [facility] Absolute lymphocyte countOrd ered By: Beltran Miranda on 10-08-2022 Lymphocytes Auto (Unsp spec) [#/Vol] 7.08 10*3/uL 0.83-4.51 [facility] Basophil percentageOrdered B y: Beltran Miranda on 10-08-2022 Basophils/100 WBC (Bld) 0.3 % 0-1 [facility] Chloride [Moles/Vol] 95 mmol/L 98-107 [facility] Eosinophils/100 WBC (Bld) 1.8 % 0-5 [facility] Glucose [Mass/Vol] 157 mg/dL 74-106 [facility] Comment on above: Fasting Glucose resu lt greater than or equal to 126 mg/dL suggests DIABETES MELLITUS per A.D.A. criteria. Neutrophils (Bld) [#/Vol] 5.1 10*3/uL 2.0-7.7 [facility] Neutrophils/100 WBC (Bld) 37.9 % 47-70 [facility] Potassium [Moles/Vol] 3.4 mmol/L 3.5-5.1 [facility] Sodium [Moles/Vol] 135 mmol/L 136-145 [facility] WBC (Bld) [#/Vol] 13.6 10*3/uL 4.4-11.0 [facility] Blood erythrocytes count (nu mber/volume)Ordered By: Beltran Miranda on 10-08-2022 RBC (Bld) [#/Vol] 4.72 10*6/uL 4.2-5.4 [facility] Blood hemoglobin measurement (mass/volume)Ordered By: Beltran Miranda on 10-08-2022 Hemoglobin (Bld) [Mass/Vol] 13.2 g/dL 12.0-15.0 [facility] Blood lymphocytes/100 leukoc ytesOrdered By: Beltran Miranda on 10-08-2022 Lymphocytes/100 WBC (Bld) 52.2 % 19-41 [facility] Blood manual differential co mment interpretation (narrative result)Ordered By: Beltran Miranda on 10-08-2022 Manual differential comment Lorenzo (Bld) [Interp] SCANNED [facility] Comment on above: LYMPHOCYTOSIS NOTED Blood monocytes/100 leukocyt esOrdered By: Beltran Miranda on 10-08-2022 Monocytes/100 WBC (Bld) 7.4 % 0-10 [facility] Blood platelet mean volumeOr dered By: Beltran Miranad on 10-08-2022 Platelet mean volume (Bld) [Entitic vol] 9.7 fL 6.2-12.0 [facility] Determination of erythrocyte mean corpuscular volume (MCV)Ordered By: Beltran Miranda on 10-08-2022 MCV (RBC) [Entitic vol] 87.3 fL 81-99 [facility] Hematocrit Auto (Bld) [Volum e fraction]Ordered By: Beltran Miranda on 10-08-2022 Hematocrit (Bld) [Volume fraction] 41.2 % 37-47 [facility] Laboratory - Chemistry and C hemistry - challengeOrdered By: Beltran Miranda on 10-08-2022 CO2 [Moles/Vol] 28.0 mmol/L 21.0-32.0 [facility] Magnesium [Mass/Vol] 1.1 mg/dL 1.6-2.6 [facility] Urea nitrogen/Creatinine [Mass ratio] 18.1 mg/mg 10-20 [facility] Laboratory - Hematology and Cell countsOrdered By: Beltran Miranda on 10-08-2022 Erythrocyte distribution width (RBC) [Entitic vol] 44.5 fL 35.1-43.9 [facility] Erythrocyte distribution width (RBC) [Ratio] 13.8 % 11.6-14.6 [facility] Immature granulocytes/100 WBC (Bld) 0.400 % 0.0-0.9 [facility] Comment on above: IG% - Immature Granu locytes (promyelocytes, myelocytes and metamyelocytes) > 1% indicates that a LEFT SHIFT is Present. MCH (RBC) [Entitic mass] 28.0 pg 27.0-32.0 [facility] Nucleated RBC/100 WBC (Bld) [Ratio] 0 % 0-5 [facility] MCHC Auto (RBC) [Mass/Vol]Or dered By: Beltran Miranda on 10-08-2022 MCHC (RBC) [Mass/Vol] 32.0 g/dL 32-36 [facility] No Panel InformationOrdered By: Beltran Miranda on 10-08-2022 Troponin I High Sensitivity 20 pg/mL 3.0-54.0 [facility] Comment on above: Please Note: [place] t Units and Gender Specific Reference Ranges. For more information see Policy Stat Procedure [place] High Sensitivity Troponin (TNIH) and attachments. Atypical Lymphocytes RARE % [facility] Estimated Creatinine Clearance Calc 46.07 ml/min [facility] Estimated GFR (MDRD) Amer 76 mL/min >60 [facility] Comment on above: GFR Calc Estimated GFR (MDRD) Non-Af Amer 63 mL/min >60 [facility] Comment on above: Non- GFR Calc Thyroid Stimulating Hormone (TSH) 2.08 uIU/mL 0.358-3.74 [facility] Platelets bldOrdered By: Andrew Miranda on 10-08-2022 Platelets (Bld) [#/Vol] 377 10*3/uL 150-450 [facility] Serum or plasma calcium sandor urement (mass/volume)Ordered By: Beltran Miranda on 10-08-2022 Calcium [Mass/Vol] 9.3 mg/dL 8.5-10.1 [facility] Serum or plasma creatinine m easurement (mass/volume)Ordered By: Beltran Miranda on 10-08-2022 Creatinine [Mass/Vol] 0.94 mg/dL 0.55-1.02 [facility] Comment on above: The validity of the calculated GFR & GFRAA in patients over 70 years has not been determined. Clinical correlation is essential. Serum or plasma urea nitroge n measurement (mass/volume)Ordered By: Beltran Miranda on 10-08-2022 Urea nitrogen [Mass/Vol] 17 mg/dL 7-18 [facility] Thin prep Papanicolaou smear with manual screeningOrdered By: Beltran Miranda on 10-08-2022 Thin prep Papanicolaou smear with manual screening 12 5-15 [facility] Cervical or vagninal specime n microscopic examination by cytology stain (reported asOrdered By: Chanda Sanz on 09-08-2022 Cytology report Cyto stain Doc (Cvx/Vag) Comment . [facility] Comment on above: The Pap smear [...] (HPV) 16, 18, 31, 33,Ordered By: Chanda Sanz on 09-08-2022 HPV 16+18+31+33+35+39+45+ 51+52+56+58+59+66+68 DNA Probe+sig amp Ql (Cvx) Positive Negative [facility] Comment on above: This nucleic acid am plification test detects fourteen high- risk HPV types (16,18,31,33,35,39,45,51,52,56,58,59,66,68)without differentiation. Laboratory - CytologyOrdered By: Chanda Sanz on 09-08-2022 [employer] Teacher Cyto stain Nom (Cvx/Vag) [ID] Comment . [facility] Comment on above: Joy Escamilla, Cyto technologist (ASCP) Pathologist Cyto stain Nom (Cvx/Vag) [ID] Comment . [facility] Comment on above: Micaela Gutierrez MD, Pathologist Recommended follow-up Cyto stain Nom (Cvx/Vag) Comment . [facility] Comment on above: Suggest follow up as clinically appropriate. Laboratory - Miscellaneous t estsOrdered By: Chanda Sanz on 09-08-2022 Service comment (Unsp spec) [Interp] Comment . [facility] Comment on above: This liquid based Th inPrep(R) pap test was screened withthe use of an image guided system. Service comment (Unsp spec) [Interp] . . [facility] Liquid-based cerv Pap + CT/G C by CLAUDIA w reflex to high-risk HPV for ASCUSOrdered By: Chanda Sanz on 09-08-2022 Cytology report Cyto stain.thin prep Doc (Cvx/Vag) Comment . [facility] Comment on above: Criteria not met, HP V Genotype not performed.Performed at: - [address] [id number] Director: Micaela Gutierrez MD, Phone: [phone] at: = - [facility] [id number] Director: Micaela Gutierrez MD, Phone: [phone] No Panel InformationOrdered By: Chanda Sanz on 09-08-2022 Pathology report final diagnosis Narrative Comment . [facility] Comment on above: EPITHELIAL CELL ABNO RMALITY.LOW GRADE SQUAMOUS INTRAEPITHELIAL LESION (LSIL).CELLULAR CHANGES ASSOCIATED WITH ATROPHY ARE PRESENT. R87.612 Basophil percentageOrdered B y: Dr. Bacon on 07-24-2022 Bilirubin [Mass/Vol] 0.60 mg/dL 0.20-1.00 [facility] Comment on above: For patients on eltr ombopag therapy, use of Dimension [place] TBIL is not recommended. Chloride [Moles/Vol] 95 mmol/L 98-107 [facility] Cholesterol [Mass/Vol] 221 mg/dL <200 [facility] Comment on above: <200 mg/dL Desirable 200-240 mg/dL Borderline >240 mg/dL High Risk Glucose [Mass/Vol] 142 mg/dL 74-106 [facility] Comment on above: Fasting Glucose resu lt greater than or equal to 126 mg/dL suggests DIABETES MELLITUS per A.D.A. criteria. Potassium [Moles/Vol] 3.5 mmol/L 3.5-5.1 [facility] Protein [Mass/Vol] 7.6 g/dL 6.4-8.2 [facility] Sodium [Moles/Vol] 135 mmol/L 136-145 [facility] Triglyceride [Mass/Vol] 212 mg/dL <199 [facility] Comment on above: The drugs N-Acetylcy steine and Metamizole may falsely depress this assay.Serum Triglycerides Reference Interval Normal <150 mg/dL Borderline high 150 - 199 mg/dL High 200 - 499 mg/dL Very High > or = 500 mg/dL Laboratory - Chemistry and C hemistry - challengeOrdered By: Dr. Bacon on 07-24-2022 ALP [Catalytic activity/Vol] 74 U/L 45-117 [facility] ALT [Catalytic activity/Vol] 21 U/L 13-56 [facility] CO2 [Moles/Vol] 34.0 mmol/L 21.0-32.0 [facility] Globulin (S) [Mass/Vol] 4.1 g/dL 2.2-4.2 [facility] Urea nitrogen/Creatinine [Mass ratio] 26.2 mg/mg 10-20 [facility] No Panel InformationOrdered By: Dr. Bacon on 07-24-2022 Estimated GFR (MDRD) Amer 71 mL/min >60 [facility] Comment on above: GFR Calc Estimated GFR (MDRD) Non-Af Amer 59 mL/min >60 [facility] Comment on above: Non- GFR Calc Serum or plasma albumin sandor urement (mass/volume)Ordered By: Dr. Bacon on 07-24-2022 Albumin [Mass/Vol] 3.5 g/dL 3.2-5.0 [facility] Serum or plasma albumin/glob ulin mass ratioOrdered By: Dr. Bacon on 07-24-2022 Albumin/Globulin [Mass ratio] 0.9 {ratio} 0.9-2.4 [facility] Serum or plasma calcium sandor urement (mass/volume)Ordered By: Dr. Bacon on 07-24-2022 Calcium [Mass/Vol] 9.3 mg/dL 8.5-10.1 [facility] Serum or plasma cholesterol in HDL measurement (mass/volume)Ordered By: Dr. Bacon on 07-24-2022 Cholesterol in HDL [Mass/Vol] 44 mg/dL >40 [facility] Comment on above: The drugs N-Acetylcy steine and Metamizole may falsely depress this assay. Reference Range HDL <40 mg/dL Low HDL Cholesterol HDL >or= 60 mg/dL High HDL Cholesterol Serum or plasma cholesterol in VLDL measurement (mass/volume)Ordered By: Dr. Bacon on 07-24-2022 Cholesterol in VLDL [Mass/Vol] 42 mg/dL 5-40 [facility] Serum or plasma creatinine m easurement (mass/volume)Ordered By: Dr. Bacon on 07-24-2022 Creatinine [Mass/Vol] 0.99 mg/dL 0.55-1.02 [facility] Comment on above: The validity of the calculated GFR & GFRAA in patients over 70 years has not been determined. Clinical correlation is essential. Serum or plasma low density lipoprotein (LDL) cholesterol measurement (mass/volume)Ordered By: Dr. Bacon on 07-24-2022 Cholesterol in LDL [Mass/Vol] 135 mg/dL 0-130 [facility] Serum or plasma urea nitroge n measurement (mass/volume)Ordered By: Dr. Bacon on 07-24-2022 Urea nitrogen [Mass/Vol] 26 mg/dL 7-18 [facility] Thin prep Papanicolaou smear with manual screeningOrdered By: Dr. Bacon on 07-24-2022 Thin prep Papanicolaou smear with manual screening 13 U/L 15-37 [facility] Thin prep Papanicolaou smear with manual screening 6 5-15 [facility] Whole blood hemoglobin A1c/t otal hemoglobin ratio (mass fraction)Ordered By: Dr. Bacon on 07-24-2022 HbA1c (Bld) [Mass fraction] 7.2 % 3.8-5.6 [facility] Comment on above: Normal < 5.7 % Predi abetic 5.7 - 6.4 % Diabetic >or= 6.5 % Please note range changes. Laboratory - Drug toxicology on 01-20-2022 Amphetamines Ql (U) Negative [facility] Work Phone: Benzodiazepines Ql (U) Negative [facility] Work Phone: Cannabinoids Screen Ql (U) Negative [facility] Work Phone: Cocaine Ql (U) Negative [facility] Work Phone: Opiates Ql (U) Negative [facility] Work Phone: No Panel Informationon 01-20 MDMA (Ecstasy) Screen Negative [facility] Work Phone: Urine Barbiturates Screen Negative [facility] Work Phone: Urine Drug Screen Comment [facility] Work Phone: Comment on above: CONFIRMATORY TESTING [...] USE TESTMNEMONIC: [facility] Urine Methadone Screen Negative [facility] Work Phone: Urine phencyclidine (PCP) de tectionon 01-20-2022 Phencyclidine Ql (U) Negative [facility] Work Phone: Absolute lymphocyte counton 12-17-2021 Lymphocytes Auto (Unsp spec) [#/Vol] 4.03 10*3/uL 0.83-4.51 [facility] Work Phone: Basophil percentageon 2021 Basophils/100 WBC (Bld) 0.3 % 0-1 [facility] Work Phone: Bilirubin [Mass/Vol] 0.40 mg/dL 0.20-1.00 [facility] Work Phone: Comment on above: For patients on eltr ombopag therapy, use of Dimension [place] TBIL is not recommended. Chloride [Moles/Vol] 96 mmol/L 98-107 [facility] Work Phone: Cholesterol [Mass/Vol] 204 mg/dL High [facility] Work Phone: Comment on above: <200 mg/dL Desirable 200-240 mg/dL Borderline >240 mg/dL High Risk Eosinophils/100 WBC (Bld) 1.0 % 0-5 [facility] Work Phone: Glucose [Mass/Vol] 156 mg/dL 74-106 [facility] Work Phone: Comment on above: Fasting Glucose resu lt greater than or equal to 126 mg/dL suggests DIABETES MELLITUS per A.D.A. criteria. Neutrophils (Bld) [#/Vol] 6.4 10*3/uL 2.0-7.7 [facility] Work Phone: Neutrophils/100 WBC (Bld) 56.0 % 47-70 [facility] Work Phone: Potassium [Moles/Vol] 3.6 mmol/L 3.5-5.1 [facility] Work Phone: [phone] Protein [Mass/Vol] 7.6 g/dL 6.4 - 8.2 gm/dL [facility] Work Phone: [phone] Sodium [Moles/Vol] 135 mmol/L 136-145 [facility] Work Phone: [phone] Triglyceride [Mass/Vol] 250 mg/dL High [facility] Work Phone: [phone] Comment on above: The drugs N-Acetylcy steine and Metamizole may falsely depress this assay.Serum Triglycerides Reference Interval Normal <150 mg/dL Borderline high 150 - 199 mg/dL High 200 - 499 mg/dL Very High > or = 500 mg/dL WBC (Bld) [#/Vol] 11.5 10*3/uL 4.4-11.0 [facility] Work Phone: [phone] Blood erythrocytes count (nu mber/volume)on 12-17-2021 RBC (Bld) [#/Vol] 4.53 10*6/uL 4.2-5.4 [facility] Work Phone: [phone] Blood hemoglobin measurement (mass/volume)on 12-17-2021 Hemoglobin (Bld) [Mass/Vol] 13.1 g/dL 12.0-15.0 [facility] Work Phone: Blood lymphocytes/100 leukoc yteson 12-17-2021 Lymphocytes/100 WBC (Bld) 35.0 % 19-41 [facility] Work Phone: [phone] Blood monocytes/100 leukocyt eson 12-17-2021 Monocytes/100 WBC (Bld) 7.2 % 0-10 [facility] Work Phone: [phone] Blood platelet mean volumeon 12-17-2021 Platelet mean volume (Bld) [Entitic vol] 9.7 fL 6.2-12.0 [facility] Work Phone: [phone] CMP (EXTERNAL)on 12-17-2021 Alk Phos Total 69 U/L 45 - 117 U/L [facility] AST [Catalytic activity/Vol] 16 U/L 8 - 37 U/L [facility] Bili Total 0.40 mg/dL 0.2 - 1 mg/dL [facility] Calcium [facility] Chloride [facility] CO2 [facility] Creatinine [facility] GFR AFR AMER 80 mL/MIN [facility] GFR/1.73 sq M.predicted among non-blacks MDRD (S/P/Bld) [Vol rate/Area] 66 mL/min/{1.73_m2} [facility] Glucose [facility] K [facility] Urea nitrogen [Mass/Vol] 30.1 mg/dL Abnormal 7 - 18 MG/DL [facility] Determination of erythrocyte mean corpuscular volume (MCV)on 12-17-2021 MCV (RBC) [Entitic vol] 88.7 fL 81-99 [facility] Work Phone: Hematocrit Auto (Bld) [Volum e fraction]on 12-17-2021 Hematocrit (Bld) [Volume fraction] 40.2 % 37-47 [facility] Work Phone: LIPID PANEL (OUTSIDE)on LDL:HDL Ratio [facility] Non-HDL Cholesterol [facility] TC:HDL Ratio [facility] VLDL Cholesterol [address] [facility] Laboratory - Chemistry and C hemistry - challengeon 12-17-2021 ALP [Catalytic activity/Vol] 69 U/L 45-117 [facility] Work Phone: ALT [Catalytic activity/Vol] 21 U/L 12 - 78 U/L [facility] Work Phone: CO2 [Moles/Vol] 31.0 mmol/L 21.0-32.0 [facility] Work Phone: Globulin (S) [Mass/Vol] 4.0 g/dL 2.2-4.2 [facility] Work Phone: Urea nitrogen/Creatinine [Mass ratio] 30.1 mg/mg 10-20 [facility] Work Phone: Laboratory - Hematology and Cell countson 12-17-2021 Erythrocyte distribution width (RBC) [Entitic vol] 43.8 fL 35.1-43.9 [facility] Work Phone: Erythrocyte distribution width (RBC) [Ratio] 13.5 % 11.6-14.6 [facility] Work Phone: [phone] Immature granulocytes/100 WBC (Bld) 0.500 % 0.0-0.9 [facility] Work Phone: Comment on above: IG% - Immature Granu locytes (promyelocytes, myelocytes and metamyelocytes) > 1% indicates that a LEFT SHIFT is Present. MCH (RBC) [Entitic mass] 28.9 pg 27.0-32.0 [facility] Work Phone: [phone] Nucleated RBC/100 WBC (Bld) [Ratio] 0 % 0-5 [facility] Work Phone: [phone] MCHC Auto (RBC) [Mass/Vol]on 12-17-2021 MCHC (RBC) [Mass/Vol] 32.6 g/dL 32-36 [facility] Work Phone: [phone] No Panel Informationon 12-17 Estimated GFR (MDRD) Amer 80 mL/min >60 [facility] Work Phone: [phone] Comment on above: GFR Calc Estimated GFR (MDRD) Non-Af Amer 66 mL/min >60 [facility] Work Phone: Comment on above: Non- GFR Calc Platelets bldon 12-17-2021 Platelets (Bld) [#/Vol] 328 10*3/uL 150-450 [facility] Work Phone: [phone] Serum or plasma albumin sandor urement (mass/volume)on 12-17-2021 Albumin [Mass/Vol] 3.6 g/dL 3.2 - 4.6 gm/dL [facility] Work Phone: [phone] Serum or plasma albumin/glob ulin mass ratioon 12-17-2021 Albumin/Globulin [Mass ratio] 0.9 {ratio} 0.9-2.4 [facility] Work Phone: [phone] Serum or plasma calcium sandor urement (mass/volume)on 12-17-2021 Calcium [Mass/Vol] 9.0 mg/dL 8.5-10.1 [facility] Work Phone: Serum or plasma cholesterol in HDL measurement (mass/volume)on 12-17-2021 Cholesterol in HDL [Mass/Vol] 38 mg/dL Low [facility] Work Phone: Comment on above: The drugs N-Acetylcy steine and Metamizole may falsely depress this assay. Reference Range HDL <40 mg/dL Low HDL Cholesterol HDL >or= 60 mg/dL High HDL Cholesterol Serum or plasma cholesterol in VLDL measurement (mass/volume)on 12-17-2021 Cholesterol in VLDL [Mass/Vol] 50 mg/dL 5-40 [facility] Work Phone: [phone] Serum or plasma creatinine m easurement (mass/volume)on 12-17-2021 Creatinine [Mass/Vol] 0.90 mg/dL 0.55-1.02 [facility] Work Phone: Comment on above: The validity of the calculated GFR & GFRAA in patients over 70 years has not been determined. Clinical correlation is essential. Serum or plasma low density lipoprotein (LDL) cholesterol measurement (mass/volume)on 12-17-2021 Cholesterol in LDL [Mass/Vol] 116 mg/dL [facility] Work Phone: Serum or plasma urea nitroge n measurement (mass/volume)on 12-17-2021 Urea nitrogen [Mass/Vol] 27 mg/dL 7-18 [facility] Work Phone: [phone] Thin prep Papanicolaou smear with manual screeningon 12-17-2021 Thin prep Papanicolaou smear with manual screening 16 U/L 15-37 [facility] Work Phone: [phone] Thin prep Papanicolaou smear with manual screening 8 5-15 [facility] Work Phone: [phone] Whole blood hemoglobin A1c/t otal hemoglobin ratio (mass fraction)on 12-17-2021 HbA1c (Bld) [Mass fraction] 6.9 % Abnormal 4.0 - 6.0 % [facility] Work Phone: Comment on above: Normal < 5.7 % Predi abetic 5.7 - 6.4 % Diabetic >or= 6.5 % Please note range changes. Laboratory - Drug toxicology on 10-28-2021 Amphetamines Ql (U) Negative [facility] Work Phone: Benzodiazepines Ql (U) Negative [facility] Work Phone: Cannabinoids Screen Ql (U) Negative [facility] Work Phone: [phone] Cocaine Ql (U) Negative [facility] Work Phone: [phone] Opiates Ql (U) Negative [facility] Work Phone: No Panel Informationon 10-28 MDMA (Ecstasy) Screen Negative [facility] Work Phone: Miscellaneous Test See comment [facility] Work Phone: Comment on above: [phone] 6+OXYCODONE-B UND (ng/mL) DRUG RESULT SCREEN CUTOFF____ Amphetamines,Urine Negative ng/mL 1000 Amphetamine test includes Amphetamine and Methamphetamine.Barbiturates Negative ng/mL 200Benzodiazepines Negative ng/mL 200Cannabinoid Negative ng/mL 20Cocaine (Metab) Negative ng/mL 300Opiates Negative ng/mL 300 Opiates test includes Codeine, Morphine, Hydromorphone, Hydrocodone. Oxycodone/Oxymorphone,Urine Negative ng/mL 300 Test includes Oxydodone and Oxymorphone. TESTING PERFORMED AT [facility]. ORIGINAL REPORT ON FILE IN LAB CONTAINS ADDITIONAL TEST SITE INFORMATION. Urine Barbiturates Screen Negative [facility] Work Phone: Urine Drug Screen Comment [facility] Work Phone: Comment on above: CONFIRMATORY TESTING [...] results are used. Urine Methadone Screen Negative [facility] Work Phone: Screening buprenorphine dete ctionon 10-28-2021 Buprenorphine Screen Ql (Unsp spec) Negative [facility] Work Phone: Urine phencyclidine (PCP) de tectionon 10-28-2021 Phencyclidine Ql (U) Negative [facility] Work Phone: Lab Report: PAP I-G HPV Hi R iskon 04-07-2017 GE use only - for [employer] import when terms are not otherwise specified Positive High Negative [facility] HPV HC,HGH RISK Positive High Negative [facility] Lab Report: CT/NG [facility] BY PCR on 04-01-2017 C. trachomatis DNA CLAUDIA+probe Ql (U) Negative Negative [facility] N. gonorrhoeae DNA CLAUDIA+probe Ql (Unsp spec) Negative Negative [facility] Office Visit: new annualon 0 04-01-2017 Documentation of current medications (procedure) Done Invalid Interpretation Code [facility] [place] Fall risk assessment [facility] [place] Protein mass conc Done [facility] [place] Tobacco smoking status NHIS Never [facility] Tobacco smoking status NHIS Never smoker [facility] Tobacco use CPHS Never smoker Invalid Interpretation Code [facility] Office Visit: new annualon 0 08-16-2013 Breast Mammogram screening Normal Bilateral [facility] General categories [Interpretation] of Cervical or vaginal smear or scraping by Cyto stain Normal [facility] Vital Signs Date Time Vital Sign Value Performing Clinician Facility 01-24-2025 14:03-0400 Body height 160 cm Kali Bacon MD Work Phone: [facility] 01-24-2025 14:03-0400 Body mass index (BMI) [Ratio] 34.01 kg/m2 Kali Bacon MD Work Phone: [facility] 01-24-2025 14:03-0400 Body temperature 97.11 [degF] Kali Bacon MD Work Phone: [facility] 01-24-2025 14:03-0400 Body weight 87.09 kg Kali Bacon MD Work Phone: [facility] 01-24-2025 14:03-0400 Diastolic blood pressure 78 mm[Hg] Kali Bacon MD Work Phone: [facility] 01-24-2025 14:03-0400 Heart rate 80 /min Kali Bacon MD Work Phone: [facility] 01-24-2025 14:03-0400 Respiratory rate 18 /min Kali Bacon MD Work Phone: [facility] 01-24-2025 14:03-0400 SaO2% (BldA) [Mass fraction] 98 % Kali Bacon MD Work Phone: [facility] 01-24-2025 14:03-0400 Systolic blood pressure 124 mm[Hg] Kali Bacon MD Work Phone: [facility] 12-26-2024 09:24-0400 Body mass index (BMI) [Ratio] 34.54 kg/m2 [facility] Work Phone: [facility] 12-26-2024 09:24-0400 Body temperature 97.9 [degF] [facility] Work Phone: [facility] 12-26-2024 09:24-0400 Body weight 88.45 kg [facility] Work Phone: [facility] 12-26-2024 09:24-0400 Diastolic blood pressure 84 mm[Hg] [facility] Work Phone: [facility] 12-26-2024 09:24-0400 Heart rate 86 /min [facility] Work Phone: [facility] 12-26-2024 09:24-0400 SaO2% (BldA) [Mass fraction] 97 % [facility] Work Phone: [facility] 12-26-2024 09:24-0400 Systolic blood pressure 138 mm[Hg] [facility] Work Phone: [facility] 12-25-2024 15:40-0400 Body height 160.[address] Kali Bacon MD Work Phone: [facility] 11-28-2024 13:17-0400 Body mass index (BMI) [Ratio] 34.2 kg/m2 Dr. Kali Bacon MD Work Phone: [facility] 11-28-2024 13:17-0400 Body weight 87.[address] Kali Bacon MD Work Phone: [facility] 11-28-2024 13:17-0400 Diastolic blood pressure 69 mm[Hg] Dr. Kali Bacon MD Work Phone: [facility] 11-28-2024 13:17-0400 Heart rate 78 /min Dr. Kali Bacon MD Work Phone: [facility] 11-28-2024 13:17-0400 Respiratory rate 16 /min Dr. Kali Bacon MD Work Phone: [facility] 11-28-2024 13:17-0400 Systolic blood pressure 154 mm[Hg] Dr. Kali Bacon MD Work Phone: [facility] 11-28-2024 09:48-0400 Body mass index (BMI) [Ratio] 34.01 kg/m2 [facility] Work Phone: [facility] 11-28-2024 09:48-0400 Body temperature 98.2 [degF] [facility] Work Phone: [facility] 11-28-2024 09:48-0400 Body weight 87.09 kg [facility] Work Phone: [facility] 11-28-2024 09:48-0400 Diastolic blood pressure 74 mm[Hg] [facility] Work Phone: [facility] 11-28-2024 09:48-0400 Heart rate 91 /min [facility] Work Phone: [facility] 11-28-2024 09:48-0400 SaO2% (BldA) [Mass fraction] 95 % [facility] Work Phone: [facility] 11-28-2024 09:48-0400 Systolic blood pressure 158 mm[Hg] [facility] Work Phone: [facility] 11-20-2024 16:09-0400 Body height 160 cm Kali Bacon MD Work Phone: [facility] 11-20-2024 16:09-0400 Body mass index (BMI) [Ratio] 33.83 kg/m2 Kali Bacon MD Work Phone: [facility] 11-20-2024 16:09-0400 Body temperature 97.59 [degF] Kali Bacon MD Work Phone: [facility] 11-20-2024 16:09-0400 Body weight 86.64 kg Kali Bacon MD Work Phone: [facility] 11-20-2024 16:09-0400 Diastolic blood pressure 68 mm[Hg] Kali Bacon MD Work Phone: [facility] 11-20-2024 16:09-0400 Heart rate 80 /min Kali Bacon MD Work Phone: [facility] 11-20-2024 16:09-0400 Respiratory rate 18 /min Kali Bacon MD Work Phone: [facility] 11-20-2024 16:09-0400 SaO2% (BldA) [Mass fraction] 98 % Kali Bacon MD Work Phone: [facility] 11-20-2024 16:09-0400 Systolic blood pressure 108 mm[Hg] Kali Bacon MD Work Phone: [facility] 11-15-2024 14:10-0400 Body temperature 97.9 [degF] Marce Larkin MD Work Phone: [facility] 11-15-2024 14:10-0400 Diastolic blood pressure 61 mm[Hg] Marce Larkin MD Work Phone: [facility] 11-15-2024 14:10-0400 Heart rate 80 /min Marce Larkin MD Work Phone: [facility] 11-15-2024 14:10-0400 Respiratory rate 20 /min Marce Larkin MD Work Phone: [facility] 11-15-2024 14:10-0400 SaO2% (BldA) [Mass fraction] 98 % Marce Larkin MD Work Phone: [facility] 11-15-2024 14:10-0400 Systolic blood pressure 122 mm[Hg] Marce Larkin MD Work Phone: [facility] 11-15-2024 11:09-0400 Body height 160 cm Marce Larkin MD Work Phone: [facility] 11-15-2024 11:09-0400 Body mass index (BMI) [Ratio] 32.77 kg/m2 Marce Larkin MD Work Phone: [facility] 11-15-2024 11:09-0400 Body weight 83.92 kg Marce Larkin MD Work Phone: [facility] 11-14-2024 08:40-0400 Body temperature 97.11 [degF] Injection [facility]str Work Phone: [facility] 11-14-2024 08:40-0400 Diastolic blood pressure 78 mm[Hg] In[facility]str Work Phone: [facility] 11-14-2024 08:40-0400 Heart rate 87 /min In[facility] Work Phone: [facility] 11-14-2024 08:40-0400 SaO2% (BldA) [Mass fraction] 96 % [facility] Work Phone: [facility] 11-14-2024 08:40-0400 Systolic blood pressure 147 mm[Hg] Injection [facility]str Work Phone: [facility] 11-06-2024 09:13-0400 Body mass index (BMI) [Ratio] 34.54 kg/m2 Fanny Barron Work Phone: [facility] 11-06-2024 09:13-0400 Body temperature 98.4 [degF] Fanny Barron Work Phone: [facility] 11-06-2024 09:13-0400 Body weight 88.45 kg Fanny Barron Work Phone: [facility] 11-06-2024 09:13-0400 Diastolic blood pressure 79 mm[Hg] Fanny Barron Work Phone: [facility] 11-06-2024 09:13-0400 Heart rate 88 /min Fanny Barron Work Phone: [facility] 11-06-2024 09:13-0400 SaO2% (BldA) [Mass fraction] 98 % Fanny Barron Work Phone: [facility] 11-06-2024 09:13-0400 Systolic blood pressure 144 mm[Hg] Fanny Barron Work Phone: [facility] 10-25-2024 08:12-0400 Body height 160.[address] Kali Bacon MD Work Phone: [facility] 10-25-2024 08:11-0400 Body mass index (BMI) [Ratio] 34.5 kg/m2 Dr. Kali Bacon MD Work Phone: [facility] 10-25-2024 08:11-0400 Body weight 88.[address] Kali Bacon MD Work Phone: [facility] 10-25-2024 08:11-0400 Diastolic blood pressure 72 mm[Hg] Dr. Kali Bacon MD Work Phone: [facility] 10-25-2024 08:11-0400 Systolic blood pressure 163 mm[Hg] Dr. Kali Bacon MD Work Phone: [facility] 10-09-2024 10:35-0500 Body mass index (BMI) [Ratio] 34.68 kg/m2 Chula Valentine [employer] Work Phone: [facility] 10-09-2024 10:35-0500 Body temperature 97.5 [degF] Chula Valentine [employer] Work Phone: [facility] 10-09-2024 10:35-0500 Body weight 88.8 kg Chula Valentine [employer] Work Phone: [facility] 10-09-2024 10:35-0500 Diastolic blood pressure 82 mm[Hg] Chula Valentine [employer] Work Phone: [facility] 10-09-2024 10:35-0500 Heart rate 93 /min Chula Valentine [employer] Work Phone: [facility] 10-09-2024 10:35-0500 Respiratory rate 18 /min Chula Valentine [employer] Work Phone: [facility] 10-09-2024 10:35-0500 SaO2% (BldA) [Mass fraction] 100 % Chula Valentine [employer] Work Phone: [facility] 10-09-2024 10:35-0500 Systolic blood pressure 144 mm[Hg] Chula Valentine [employer] Work Phone: [facility] 10-02-2024 12:52-0500 Body height 160 cm Kali Bacon MD Work Phone: [facility] 10-02-2024 12:52-0500 Body mass index (BMI) [Ratio] 34.47 kg/m2 Kali Bacon MD Work Phone: [facility] 10-02-2024 12:52-0500 Body temperature 97.3 [degF] Kali Bacon MD Work Phone: [facility] 10-02-2024 12:52-0500 Body weight 88.27 kg Kali Bacon MD Work Phone: [facility] 10-02-2024 12:52-0500 Diastolic blood pressure 82 mm[Hg] Kali Bacon MD Work Phone: [facility] 10-02-2024 12:52-0500 Heart rate 88 /min Kali Bacon MD Work Phone: [facility] 10-02-2024 12:52-0500 Respiratory rate 18 /min Kali Bacon MD Work Phone: [facility] 10-02-2024 12:52-0500 SaO2% (BldA) [Mass fraction] 98 % Kali Bacon MD Work Phone: [facility] 10-02-2024 12:52-0500 Systolic blood pressure 128 mm[Hg] Kali Bacon MD Work Phone: [facility] 09-20-2024 13:02-0500 Body height 157.5 cm Kali Bacon MD Work Phone: [facility] 09-20-2024 13:02-0500 Body mass index (BMI) [Ratio] 35.85 kg/m2 Kali Bacon MD Work Phone: [facility] 09-20-2024 13:02-0500 Body temperature 97.59 [degF] Kali Bacon MD Work Phone: [facility] 09-20-2024 13:02-0500 Body weight 88.91 kg Kali Bacon MD Work Phone: [facility] 09-20-2024 13:02-0500 Diastolic blood pressure 84 mm[Hg] Kali Bacon MD Work Phone: [facility] 09-20-2024 13:02-0500 Heart rate 88 /min Kali Bacon MD Work Phone: [facility] 09-20-2024 13:02-0500 Respiratory rate 18 /min Kali Bacon MD Work Phone: [facility] 09-20-2024 13:02-0500 SaO2% (BldA) [Mass fraction] 97 % Kali Bacon MD Work Phone: [facility] 09-20-2024 13:02-0500 Systolic blood pressure 126 mm[Hg] Kali Bacon MD Work Phone: [facility] 09-18-2024 15:32-0500 Body height 160.[address] Kali Bacon MD Work Phone: [facility] 09-18-2024 15:24-0500 Body mass index (BMI) [Ratio] 35.1 kg/m2 Dr. Kali Bacon MD Work Phone: [facility] 09-18-2024 15:24-0500 Body weight 89.[address] Kali Bacon MD Work Phone: [facility] 09-18-2024 15:24-0500 Diastolic blood pressure 70 mm[Hg] Dr. Kali Bacon MD Work Phone: [facility] 09-18-2024 15:24-0500 Systolic blood pressure 138 mm[Hg] Dr. Kali Bacon MD Work Phone: [facility] 09-16-2024 09:12-0500 Body mass index (BMI) [Ratio] 35.93 kg/m2 Daly Fajardo MD Work Phone: [facility] 09-16-2024 09:12-0500 Body temperature 98.1 [degF] Daly Fajardo MD Work Phone: [facility] 09-16-2024 09:12-0500 Body weight 89.7 kg Daly Fajardo MD Work Phone: [facility] 09-16-2024 09:12-0500 Diastolic blood pressure 66 mm[Hg] Daly Fajardo MD Work Phone: [facility] 09-16-2024 09:12-0500 Heart rate 100 /min Daly Fajardo MD Work Phone: [facility] 09-16-2024 09:12-0500 Respiratory rate 21 /min Daly Fajardo MD Work Phone: [facility] 09-16-2024 09:12-0500 SaO2% (BldA) [Mass fraction] 97 % Daly Fajardo MD Work Phone: [facility] 09-16-2024 09:12-0500 Systolic blood pressure 142 mm[Hg] Daly Fajardo MD Work Phone: [facility] 09-14-2024 08:55-0500 Body mass index (BMI) [Ratio] 35.61 kg/m2 Halie Davin [employer] Work Phone: [facility] 09-14-2024 08:55-0500 Body weight 88.91 kg Halie Davin [employer] Work Phone: [facility] 09-14-2024 08:55-0500 Diastolic blood pressure 72 mm[Hg] Halie Davin [employer] Work Phone: [facility] 09-14-2024 08:55-0500 Heart rate 89 /min Halie Davin [employer] Work Phone: [facility] 09-14-2024 08:55-0500 SaO2% (BldA) [Mass fraction] 98 % Halie Davin [employer] Work Phone: [facility] 09-14-2024 08:55-0500 Systolic blood pressure 119 mm[Hg] Halie Davin [employer] Work Phone: [facility] 09-11-2024 10:00-0500 Body temperature 98.4 [degF] Treatment [facility] Work Phone: [facility] 09-11-2024 10:00-0500 Diastolic blood pressure 72 mm[Hg] Treatment [facility] Work Phone: [facility] 09-11-2024 10:00-0500 Heart rate 90 /min Treatment [facility]str Work Phone: [facility] 09-11-2024 10:00-0500 Respiratory rate 20 /min Treatment [facility]str Work Phone: [facility] 09-11-2024 10:00-0500 SaO2% (BldA) [Mass fraction] 96 % Treatment [facility]str Work Phone: [facility] 09-11-2024 10:00-0500 Systolic blood pressure 155 mm[Hg] Treatment [facility] Work Phone: [facility] 09-06-2024 13:18-0500 Body temperature 97.81 [degF] Treatment [facility] Work Phone: [facility] 09-06-2024 13:18-0500 Diastolic blood pressure 79 mm[Hg] Treatment [facility]str Work Phone: [facility] 09-06-2024 13:18-0500 Heart rate 96 /min Treatment [facility]str Work Phone: [facility] 09-06-2024 13:18-0500 Respiratory rate 20 /min Treatment [facility] Work Phone: [facility] 09-06-2024 13:18-0500 SaO2% (BldA) [Mass fraction] 98 % [facility] Work Phone: [facility] 09-06-2024 13:18-0500 Systolic blood pressure 142 mm[Hg] Treatment [facility]str Work Phone: [facility] 09-06-2024 11:30-0500 Body mass index (BMI) [Ratio] 35.2 kg/m2 Dr. Kali Bacon MD Work Phone: [facility] 09-06-2024 11:30-0500 Body temperature 97.5 [degF] Dr. Kali Bacon MD Work Phone: [facility] 09-06-2024 11:30-0500 Body weight 90.[address] Kali Bacon MD Work Phone: [facility] 09-06-2024 11:30-0500 Diastolic blood pressure 79 mm[Hg] Dr. Kali aBcon MD Work Phone: [facility] 09-06-2024 11:30-0500 Heart rate 99 /min Dr. Kali Bacon MD Work Phone: [facility] 09-06-2024 11:30-0500 Respiratory rate 18 /min Dr. Kali Bacon MD Work Phone: [facility] 09-06-2024 11:30-0500 SaO2% (BldA) [Mass fraction] 96 % Dr. Kali Bacon MD Work Phone: [facility] 09-06-2024 11:30-0500 Systolic blood pressure 135 mm[Hg] Dr. Kali Bacon MD Work Phone: [facility] 09-05-2024 10:47-0500 Body height 158 cm Fanny Barron Work Phone: [facility] 09-05-2024 10:47-0500 Body mass index (BMI) [Ratio] 36.79 kg/m2 Fanny Barron Work Phone: [facility] 09-05-2024 10:47-0500 Body temperature 98.71 [degF] Fanny Barron Work Phone: [facility] 09-05-2024 10:47-0500 Body weight 91.85 kg Fanny Barron Work Phone: [facility] 09-05-2024 10:47-0500 Diastolic blood pressure 75 mm[Hg] Fanny Barron Work Phone: [facility] 09-05-2024 10:47-0500 Heart rate 92 /min Fanny Barron Work Phone: [facility] 09-05-2024 10:47-0500 SaO2% (BldA) [Mass fraction] 99 % Fanny Barron Work Phone: [facility] 09-05-2024 10:47-0500 Systolic blood pressure 159 mm[Hg] Fanny Barron Work Phone: [facility] 09-04-2024 13:53-0500 Body height 160 cm Kali Bacon MD Work Phone: [facility] 09-04-2024 13:53-0500 Body mass index (BMI) [Ratio] 35.43 kg/m2 Kali Bacon MD Work Phone: [facility] 09-04-2024 13:53-0500 Body temperature 96.91 [degF] Kali Bacon MD Work Phone: [facility] 09-04-2024 13:53-0500 Body weight 90.72 kg Kali Bacon MD Work Phone: [facility] 09-04-2024 13:53-0500 Diastolic blood pressure 80 mm[Hg] Kali Bacon MD Work Phone: [facility] 09-04-2024 13:53-0500 Heart rate 98 /min Kali Bacon MD Work Phone: [facility] 09-04-2024 13:53-0500 Respiratory rate 18 /min Kali Bacon MD Work Phone: [facility] 09-04-2024 13:53-0500 SaO2% (BldA) [Mass fraction] 95 % Kali Bacon MD Work Phone: [facility] 09-04-2024 13:53-0500 Systolic blood pressure 128 mm[Hg] Kali Bacon MD Work Phone: [facility] 09-03-2024 08:21-0500 Body mass index (BMI) [Ratio] 35.54 kg/m2 Krislyn Aberegg PA Work Phone: [facility] 09-03-2024 08:21-0500 Body temperature 98.4 [degF] Krislyn Aberegg PA Work Phone: [facility] 09-03-2024 08:21-0500 Body weight 91 kg Krislyn Aberegg PA Work Phone: [facility] 09-03-2024 08:21-0500 Diastolic blood pressure 69 mm[Hg] Krislyn Aberegg PA Work Phone: [facility] 09-03-2024 08:21-0500 Heart rate 94 /min Krislyn Aberegg PA Work Phone: [facility] 09-03-2024 08:21-0500 Respiratory rate 20 /min Krislyn Aberegg PA Work Phone: [facility] 09-03-2024 08:21-0500 SaO2% (BldA) [Mass fraction] 95 % Krislyn Aberegg PA Work Phone: [facility] 09-03-2024 08:21-0500 Systolic blood pressure 153 mm[Hg] Krislyn Aberegg PA Work Phone: [facility] 09-01-2024 13:24-0500 Body temperature 97.11 [degF] Treatment [facility]str Work Phone: [facility] 09-01-2024 13:24-0500 Diastolic blood pressure 63 mm[Hg] Treatment [facility]str Work Phone: [facility] 09-01-2024 13:24-0500 Heart rate 88 /min Treatment [facility]str Work Phone: [facility] 09-01-2024 13:24-0500 Respiratory rate 16 /min Treatment [facility]str Work Phone: [facility] 09-01-2024 13:24-0500 SaO2% (BldA) [Mass fraction] 95 % Treatment [facility]str Work Phone: [facility] 09-01-2024 13:24-0500 Systolic blood pressure 137 mm[Hg] Treatment [facility]str Work Phone: [facility] 08-30-2024 14:00-0500 Diastolic blood pressure 69 mm[Hg] Treatment [facility]str Work Phone: [facility] 08-30-2024 14:00-0500 Systolic blood pressure 166 mm[Hg] Treatment [facility]str Work Phone: [facility] 08-30-2024 12:54-0500 Body temperature 98.4 [degF] Treatment [facility]str Work Phone: [facility] 08-30-2024 12:54-0500 Heart rate 99 /min Treatment Wstr Work Phone: [facility] 08-30-2024 12:54-0500 SaO2% (BldA) [Mass fraction] 96 % Treatment Wstr Work Phone: [facility] 08-21-2024 16:32-0500 Body height 160 cm Kali Bacon MD Work Phone: [facility] 08-21-2024 16:32-0500 Body mass index (BMI) [Ratio] 35.61 kg/m2 Kali Bacon MD Work Phone: [facility] 08-21-2024 16:32-0500 Body temperature 96.91 [degF] Kali Bacon MD Work Phone: [facility] 08-21-2024 16:32-0500 Body weight 91.17 kg Kali Bacon MD Work Phone: [facility] 08-21-2024 16:32-0500 Diastolic blood pressure 76 mm[Hg] Kali Bacon MD Work Phone: [facility] 08-21-2024 16:32-0500 Heart rate 102 /min Kali Bacon MD Work Phone: [facility] 08-21-2024 16:32-0500 Respiratory rate 18 /min Kali Bacon MD Work Phone: [facility] 08-21-2024 16:32-0500 SaO2% (BldA) [Mass fraction] 96 % Kali Bacon MD Work Phone: [facility] 08-21-2024 16:32-0500 Systolic blood pressure 126 mm[Hg] Kali Bacon MD Work Phone: [facility] 02-16-2024 14:38-0400 Body height 160 cm Kali Bacon MD Work Phone: [facility] 02-16-2024 14:38-0400 Body mass index (BMI) [Ratio] 34.01 kg/m2 Kali Bacon MD Work Phone: [facility] 02-16-2024 14:38-0400 Body temperature 98.4 [degF] Kali Bacon MD Work Phone: [facility] 02-16-2024 14:38-0400 Body weight 87.09 kg Kali Bacon MD Work Phone: [facility] 02-16-2024 14:38-0400 Diastolic blood pressure 74 mm[Hg] Kali Bacon MD Work Phone: [facility] 02-16-2024 14:38-0400 Heart rate 88 /min Kali Bacon MD Work Phone: [facility] 02-16-2024 14:38-0400 Respiratory rate 21 /min Kali Bacon MD Work Phone: [facility] 02-16-2024 14:38-0400 SaO2% (BldA) [Mass fraction] 100 % Kali Bacon MD Work Phone: [facility] 02-16-2024 14:38-0400 Systolic blood pressure 138 mm[Hg] Kali Bacon MD Work Phone: [facility] 01-24-2024 13:20-0400 Body height 160 cm Kali Bacon MD Work Phone: [facility] 01-24-2024 13:20-0400 Body mass index (BMI) [Ratio] 34.81 kg/m2 Kali Bacon MD Work Phone: [facility] 01-24-2024 13:20-0400 Body temperature 98.6 [degF] Kali Bacon MD Work Phone: [facility] 01-24-2024 13:20-0400 Body weight 89.13 kg Kali Bacon MD Work Phone: [facility] 01-24-2024 13:20-0400 Diastolic blood pressure 72 mm[Hg] Kali Bacon MD Work Phone: [facility] 01-24-2024 13:20-0400 Heart rate 87 /min Kali Bacon MD Work Phone: [facility] 01-24-2024 13:20-0400 Respiratory rate 16 /min Kali Bacon MD Work Phone: [facility] 01-24-2024 13:20-0400 SaO2% (BldA) [Mass fraction] 98 % Kali Bacon MD Work Phone: [facility] 01-24-2024 13:20-0400 Systolic blood pressure 138 mm[Hg] Kali Bacon MD Work Phone: [facility] 11-01-2023 14:23-0400 Body height 160 cm Kali Bacon MD Work Phone: [facility] 11-01-2023 14:23-0400 Body temperature 96.91 [degF] Kali Bacon MD Work Phone: [facility] 11-01-2023 14:23-0400 Body weight 86.91 kg Kali Bacon MD Work Phone: [facility] 11-01-2023 14:23-0400 Diastolic blood pressure 62 mm[Hg] Kali Bacon MD Work Phone: [facility] 11-01-2023 14:23-0400 Heart rate 73 /min Kali Bacon MD Work Phone: [facility] 11-01-2023 14:23-0400 Respiratory rate 16 /min Kali Bacon MD Work Phone: [facility] 11-01-2023 14:23-0400 SaO2% (BldA) [Mass fraction] 100 % Kali Bacon MD Work Phone: [facility] 11-01-2023 14:23-0400 Systolic blood pressure 128 mm[Hg] Kali Bacon MD Work Phone: [facility] 10-27-2023 11:05-0400 Body temperature 98.2 [degF] Dr. Kali Bacon Work Phone: [facility] 10-27-2023 11:05-0400 Body weight 86.[address] Kali Bacon Work Phone: [facility] 10-27-2023 11:05-0400 Diastolic blood pressure 79 mm[Hg] Dr. Kali Bacon Work Phone: [facility] 10-27-2023 11:05-0400 Heart rate 87 /min Dr. Kali Bacon Work Phone: [facility] 10-27-2023 11:05-0400 Respiratory rate 16 /min Dr. Kali Bacon Work Phone: [facility] 10-27-2023 11:05-0400 SaO2% (BldA) [Mass fraction] 99 % Dr. Kali Bacon Work Phone: [facility] 10-27-2023 11:05-0400 Systolic blood pressure 143 mm[Hg] Dr. Kali Bacon Work Phone: [facility] 10-12-2023 13:31-0500 Body height 160.[address] Kali Bacon Work Phone: [facility] 10-12-2023 13:31-0500 Body mass index (BMI) [Ratio] 32.2 kg/m2 Dr. Kali Bacon Work Phone: [facility] 10-12-2023 13:31-0500 Body weight 82.[address] Kali Bacon Work Phone: [facility] 10-12-2023 13:31-0500 Diastolic blood pressure 74 mm[Hg] Dr. Kali Bacon Work Phone: [facility] 10-12-2023 13:31-0500 Heart rate 94 /min Dr. Kali Bacon Work Phone: [facility] 10-12-2023 13:31-0500 Respiratory rate 18 /min Dr. Kali Bacon Work Phone: [facility] 10-12-2023 13:31-0500 SaO2% (BldA) [Mass fraction] 99 % Dr. Kali Bacon Work Phone: [facility] 10-12-2023 13:31-0500 Systolic blood pressure 116 mm[Hg] Dr. Kali Bacon Work Phone: [facility] 09-17-2023 10:18-0500 Body height 160.[address] Kali Bacon Work Phone: [facility] 09-17-2023 10:11-0500 Body mass index (BMI) [Ratio] 32.5 kg/m2 Dr. Kali Bacon Work Phone: [facility] 09-17-2023 10:11-0500 Body weight 83.[address] Kali Bacon Work Phone: [facility] 09-17-2023 10:11-0500 Diastolic blood pressure 76 mm[Hg] Dr. Kali Bacon Work Phone: [facility] 09-17-2023 10:11-0500 Systolic blood pressure 133 mm[Hg] Dr. Kali Bacon Work Phone: [facility] 07-21-2023 10:38-0500 Body height 160 cm Kali Bacon MD Work Phone: [facility] 07-21-2023 10:38-0500 Body temperature 97.59 [degF] Kali Bacon MD Work Phone: [facility] 07-21-2023 10:38-0500 Body weight 82.46 kg Kali Bacon MD Work Phone: [facility] 07-21-2023 10:38-0500 Diastolic blood pressure 74 mm[Hg] Kali Bacon MD Work Phone: [facility] 07-21-2023 10:38-0500 Heart rate 68 /min Kali Bacon MD Work Phone: [facility] 07-21-2023 10:38-0500 Respiratory rate 18 /min Kali Bacon MD Work Phone: [facility] 07-21-2023 10:38-0500 SaO2% (BldA) [Mass fraction] 100 % Kali Bacon MD Work Phone: [facility] 07-21-2023 10:38-0500 Systolic blood pressure 134 mm[Hg] Kali Bacon MD Work Phone: [facility] 07-12-2023 13:35-0500 Body height 160 cm Kali Bacon MD Work Phone: [facility] 07-12-2023 13:35-0500 Body temperature 97.59 [degF] Kali Bacon MD Work Phone: [facility] 07-12-2023 13:35-0500 Body weight 82.37 kg Kali Bacon MD Work Phone: [facility] 07-12-2023 13:35-0500 Diastolic blood pressure 82 mm[Hg] Kali Bacon MD Work Phone: [facility] 07-12-2023 13:35-0500 Heart rate 74 /min Klai Bacon MD Work Phone: [facility] 07-12-2023 13:35-0500 Respiratory rate 18 /min Kali Bacon MD Work Phone: [facility] 07-12-2023 13:35-0500 SaO2% (BldA) [Mass fraction] 97 % Kali Bacon MD Work Phone: [facility] 07-12-2023 13:35-0500 Systolic blood pressure 138 mm[Hg] Kali Bacon MD Work Phone: [facility] 07-10-2023 10:48-0500 Body temperature 97.5 [degF] Marva Madera APRN.[employer] Work Phone: [facility] 07-10-2023 10:48-0500 Body weight 82.56 kg Marva Madera APRN.[employer] Work Phone: [facility] 07-10-2023 10:48-0500 Diastolic blood pressure 80 mm[Hg] Marva Praisler-Wood MANAGER [employer] Work Phone: [facility] 07-10-2023 10:48-0500 Heart rate 84 /min Marva Praisler-Wood MANAGER [employer] Work Phone: [facility] 07-10-2023 10:48-0500 Respiratory rate 18 /min Marva Praisler-Wood MANAGER [employer] Work Phone: [facility] 07-10-2023 10:48-0500 SaO2% (BldA) [Mass fraction] 100 % Marva Praisler-Wood MANAGER [employer] Work Phone: [facility] 07-10-2023 10:48-0500 Systolic blood pressure 170 mm[Hg] Marva Praisler-Wood MANAGER [employer] Work Phone: [facility] 06-24-2023 08:35-0500 Body temperature 98.2 [degF] Savita Paul MANAGER [employer] Work Phone: [facility] 06-24-2023 08:35-0500 Body weight 80.74 kg Savita Paul MANAGER [employer] Work Phone: [facility] 06-24-2023 08:35-0500 Diastolic blood pressure 69 mm[Hg] Savita Paul MANAGER [employer] Work Phone: [facility] 06-24-2023 08:35-0500 Heart rate 97 /min Savita Paul MANAGER [employer] Work Phone: [facility] 06-24-2023 08:35-0500 Respiratory rate 20 /min Savita Paul MANAGER [employer] Work Phone: [facility] 06-24-2023 08:35-0500 SaO2% (BldA) [Mass fraction] 98 % Savita Paul MANAGER [employer] Work Phone: [facility] 06-24-2023 08:35-0500 Systolic blood pressure 149 mm[Hg] Savita Paul MANAGER [employer] Work Phone: [facility] 06-12-2023 08:18-0400 Body temperature 97.3 [degF] Anum Cos Cob MANAGER [employer] Work Phone: [facility] 06-12-2023 08:18-0400 Body weight 81.01 kg Anum Ryan MANAGER [employer] Work Phone: [facility] 06-12-2023 08:18-0400 Diastolic blood pressure 76 mm[Hg] Anum Ryan MANAGER [employer] Work Phone: [facility] 06-12-2023 08:18-0400 Heart rate 91 /min Anum Ryan MANAGER [employer] Work Phone: [facility] 06-12-2023 08:18-0400 Respiratory rate 21 /min Anum Ryan MANAGER [employer] Work Phone: [facility] 06-12-2023 08:18-0400 SaO2% (BldA) [Mass fraction] 99 % Anum Cos Cob MANAGER [employer] Work Phone: [facility] 06-12-2023 08:18-0400 Systolic blood pressure 144 mm[Hg] Anum Ryan MANAGER [employer] Work Phone: [facility] 05-17-2023 11:27-0400 Body temperature 97.9 [degF] Marva Praisler-Wood MANAGER [employer] Work Phone: [facility] 05-17-2023 11:27-0400 Body weight 81.92 kg Marva Praisler-Wood MANAGER [employer] Work Phone: [facility] 05-17-2023 11:27-0400 Diastolic blood pressure 84 mm[Hg] Marva Praisler-Wood MANAGER [employer] Work Phone: [facility] 05-17-2023 11:27-0400 Heart rate 89 /min Marva Praisler-Wood MANAGER [employer] Work Phone: [facility] 05-17-2023 11:27-0400 Respiratory rate 18 /min Marva Praisler-Wood MANAGER [employer] Work Phone: [facility] 05-17-2023 11:27-0400 SaO2% (BldA) [Mass fraction] 99 % Marva Praisler-Wood MANAGER [employer] Work Phone: [facility] 05-17-2023 11:27-0400 Systolic blood pressure 179 mm[Hg] Marva Praisler-Wood MANAGER [employer] Work Phone: [facility] 04-20-2023 09:03-0400 Body weight 80.74 kg Ramses Sybil MANAGER [employer] Work Phone: [facility] 04-20-2023 09:03-0400 Diastolic blood pressure 75 mm[Hg] Ramses Sybil MANAGER [employer] Work Phone: [facility] 04-20-2023 09:03-0400 Heart rate 89 /min Ramses Sybil MANAGER [employer] Work Phone: [facility] 04-20-2023 09:03-0400 Systolic blood pressure 127 mm[Hg] Ramses Sybil MANAGER [employer] Work Phone: [facility] 04-14-2023 12:04-0400 Body temperature 98.01 [degF] Chula Valentine MANAGER [employer] Work Phone: [facility] 04-14-2023 12:04-0400 Body weight 81.92 kg Chula Valentine MANAGER [employer] Work Phone: [facility] 04-14-2023 12:04-0400 Diastolic blood pressure 72 mm[Hg] Chula Valentine MANAGER [employer] Work Phone: [facility] 04-14-2023 12:04-0400 Heart rate 95 /min Chula Valentine MANAGER [employer] Work Phone: [facility] 04-14-2023 12:04-0400 Respiratory rate 21 /min Chula Valentine MANAGER [employer] Work Phone: [facility] 04-14-2023 12:04-0400 SaO2% (BldA) [Mass fraction] 98 % Chula Valentine MANAGER [employer] Work Phone: [facility] 04-14-2023 12:04-0400 Systolic blood pressure 140 mm[Hg] Chula Valentine MANAGER [employer] Work Phone: [facility] 04-08-2023 10:42-0400 Body mass index (BMI) [Ratio] 31.8 kg/m2 Dr. Kali Bacon Work Phone: [facility] 04-08-2023 10:42-0400 Body temperature 97.3 [degF] Dr. Kali Bacon Work Phone: [facility] 04-08-2023 10:42-0400 Diastolic blood pressure 71 mm[Hg] Dr. Kali Bacon Work Phone: [facility] 04-08-2023 10:42-0400 Heart rate 89 /min Dr. Kali Bacon Work Phone: [facility] 04-08-2023 10:42-0400 Respiratory rate 16 /min Dr. Kali aBcon Work Phone: [facility] 04-08-2023 10:42-0400 Systolic blood pressure 156 mm[Hg] Dr. Kali Bacon Work Phone: [facility] 04-07-2023 11:29-0400 Body height 160.[address] Kali Bacon Work Phone: [facility] 04-07-2023 11:25-0400 Body mass index (BMI) [Ratio] 32.1 kg/m2 Dr. Kali Bacon Work Phone: [facility] 04-07-2023 11:25-0400 Body weight 82.[address] Kali Bacon Work Phone: [facility] 04-07-2023 11:25-0400 Diastolic blood pressure 84 mm[Hg] Dr. Kali Bacon Work Phone: [facility] 04-07-2023 11:25-0400 Heart rate 90 /min Dr. Kali Bacon Work Phone: [facility] 04-07-2023 11:25-0400 Respiratory rate 20 /min Dr. Kali Bacon Work Phone: [facility] 04-07-2023 11:25-0400 SaO2% (BldA) [Mass fraction] 99 % Dr. Kali Bacon Work Phone: [facility] 04-07-2023 11:25-0400 Systolic blood pressure 155 mm[Hg] Dr. Kali Bacon Work Phone: [facility] 03-25-2023 10:52-0400 Body mass index (BMI) [Ratio] 31.8 kg/m2 Dr. Kali Bacon Work Phone: [facility] 03-25-2023 10:52-0400 Body temperature 97 [degF] Dr. Kali Bacon Work Phone: [facility] 03-25-2023 10:52-0400 Diastolic blood pressure 70 mm[Hg] Dr. Kali Bacon Work Phone: [facility] 03-25-2023 10:52-0400 Heart rate 82 /min Dr. Kali Bacon Work Phone: [facility] 03-25-2023 10:52-0400 Respiratory rate 16 /min Dr. Kali Bacon Work Phone: [facility] 03-25-2023 10:52-0400 Systolic blood pressure 151 mm[Hg] Dr. Kali Bacon Work Phone: [facility] 03-16-2023 00:43-0400 Body mass index (BMI) [Ratio] 31.8 kg/m2 Dr. Kali Bacon Work Phone: [facility] 03-16-2023 00:43-0400 Body temperature 97 [degF] Dr. Kali Bacon Work Phone: [facility] 03-16-2023 00:43-0400 Body weight 81.[address] Kali Bacon Work Phone: [facility] 03-16-2023 00:43-0400 Diastolic blood pressure 83 mm[Hg] Dr. Kali Bacon Work Phone: [facility] 03-16-2023 00:43-0400 Heart rate 87 /min Dr. Kali Bacon Work Phone: [facility] 03-16-2023 00:43-0400 Respiratory rate 16 /min Dr. Kali Bacon Work Phone: [facility] 03-16-2023 00:43-0400 Systolic blood pressure 176 mm[Hg] Dr. Kali Bacon Work Phone: [facility] 03-11-2023 10:17-0400 Body height 160.[address] Kali Bacon Work Phone: [facility] 03-11-2023 10:17-0400 Body mass index (BMI) [Ratio] 31.8 kg/m2 Dr. Kali Bacon Work Phone: [facility] 03-11-2023 10:17-0400 Body temperature 97 [degF] Dr. Kali Bacon Work Phone: [facility] 03-11-2023 10:17-0400 Body weight 81.[address] Kali Bacon Work Phone: [facility] 03-11-2023 10:17-0400 Diastolic blood pressure 83 mm[Hg] Dr. Kali Bacon Work Phone: [facility] 03-11-2023 10:17-0400 Heart rate 87 /min Dr. Kali Bacon Work Phone: [facility] 03-11-2023 10:17-0400 Respiratory rate 16 /min Dr. Kali Bacon Work Phone: [facility] 03-11-2023 10:17-0400 Systolic blood pressure 176 mm[Hg] Dr. Kali Bacon Work Phone: [facility] 02-10-2023 10:15-0400 Body height 160 cm Kali Bacon MD Work Phone: [facility] 02-10-2023 10:15-0400 Body temperature 96.91 [degF] Kali Bacon MD Work Phone: [facility] 02-10-2023 10:15-0400 Body weight 85 kg Kali Bacon MD Work Phone: [facility] 02-10-2023 10:15-0400 Diastolic blood pressure 78 mm[Hg] Kali Bacon MD Work Phone: [facility] 02-10-2023 10:15-0400 Heart rate 90 /min Kali Bacon MD Work Phone: [facility] 02-10-2023 10:15-0400 Respiratory rate 14 /min Kali Bacon MD Work Phone: [facility] 02-10-2023 10:15-0400 SaO2% (BldA) [Mass fraction] 99 % Kali Bacon MD Work Phone: [facility] 02-10-2023 10:15-0400 Systolic blood pressure 142 mm[Hg] Kali Baocn MD Work Phone: [facility] 01-25-2023 12:55-0400 Body height 160.[address] Kali Bacon Work Phone: [facility] 01-25-2023 12:55-0400 Body mass index (BMI) [Ratio] 32.2 kg/m2 Dr. Kali Bacon Work Phone: [facility] 01-25-2023 12:55-0400 Body weight 82.[address] Kali Bacon Work Phone: [facility] 01-25-2023 12:55-0400 Diastolic blood pressure 80 mm[Hg] Dr. Kali Bacon Work Phone: [facility] 01-25-2023 12:55-0400 Heart rate 92 /min Dr. Kali Bacon Work Phone: [facility] 01-25-2023 12:55-0400 Respiratory rate 18 /min Dr. Kali Bacon Work Phone: [facility] 01-25-2023 12:55-0400 SaO2% (BldA) [Mass fraction] 99 % Dr. Kali Bacon Work Phone: [facility] 01-25-2023 12:55-0400 Systolic blood pressure 140 mm[Hg] Dr. Kali Bacon Work Phone: [facility] 01-14-2023 14:50-0400 Diastolic blood pressure 67 mm[Hg] Tosin Ly DO Work Phone: [facility] 01-14-2023 14:50-0400 Heart rate 94 /min Tosin Ly DO Work Phone: [facility] 01-14-2023 14:50-0400 Respiratory rate 22 /min Tosin Ly DO Work Phone: [facility] 01-14-2023 14:50-0400 SaO2% (BldA) [Mass fraction] 100 % Tosin Ly DO Work Phone: [facility] 01-14-2023 14:50-0400 Systolic blood pressure 134 mm[Hg] Tosin Ly DO Work Phone: [facility] 01-14-2023 14:20-0400 Body temperature 97 [degF] Tosin Ly DO Work Phone: [facility] 01-04-2023 20:02-0400 Diastolic blood pressure 62 mm[Hg] Dr. Kali Bacon Work Phone: [facility] 01-04-2023 20:02-0400 Heart rate 79 /min Dr. Kali Bacon Work Phone: [facility] 01-04-2023 20:02-0400 Respiratory rate 18 /min Dr. Kali Bacon Work Phone: [facility] 01-04-2023 20:02-0400 SaO2% (BldA) [Mass fraction] 98 % Dr. Kali Bacon Work Phone: [facility] 01-04-2023 20:02-0400 Systolic blood pressure 165 mm[Hg] Dr. Kali Bacon Work Phone: [facility] 01-04-2023 19:22-0400 Body mass index (BMI) [Ratio] 34.4 kg/m2 Dr. Kali Bacon Work Phone: [facility] 01-04-2023 19:22-0400 Body weight 88.[address] Kali Bacon Work Phone: [facility] 01-04-2023 18:51-0400 Body temperature 97.2 [degF] Dr. Kali Bacon Work Phone: [facility] 12-22-2022 05:42-0400 Body mass index (BMI) [Ratio] 34.5 kg/m2 Dr. Kali Bacon Work Phone: [facility] 12-22-2022 05:42-0400 Body weight 88.[address] Kali Bacon Work Phone: [facility] 12-22-2022 03:37-0400 Body height 160.[address] Kali Bacon Work Phone: [facility] 12-22-2022 03:37-0400 Body temperature 98.2 [degF] Dr. Kali Bacon Work Phone: [facility] 12-22-2022 03:37-0400 Diastolic blood pressure 76 mm[Hg] Dr. Kali Bacon Work Phone: [facility] 12-22-2022 03:37-0400 Heart rate 88 /min Dr. Kali Bacon Work Phone: [facility] 12-22-2022 03:37-0400 Respiratory rate 18 /min Dr. Kali Bacon Work Phone: [facility] 12-22-2022 03:37-0400 SaO2% (BldA) [Mass fraction] 97 % Dr. Kali Bacon Work Phone: [facility] 12-22-2022 03:37-0400 Systolic blood pressure 156 mm[Hg] Dr. Kali Bacon Work Phone: [facility] 12-10-2022 09:44-0400 Body height 160 cm Elsie Pedraza MANAGER [employer] Work Phone: [facility] 12-10-2022 09:44-0400 Body mass index (BMI) [Ratio] 35.61 kg/m2 Elsie Pedraza [employer]NAGER [employer] Work Phone: [facility] 12-10-2022 09:44-0400 Body temperature 98.2 [degF] Elsie Manuely MANAGER [employer] Work Phone: [facility] [employer] 12-10-2022 09:44-0400 Body weight 91.17 kg Elsie Pedraza MANAGER [employer] Work Phone: [facility] [employer] 12-10-2022 09:44-0400 Diastolic blood pressure 79 mm[Hg] Elsie Pedraza MANAGER [employer] Work Phone: [facility] [employer] 12-10-2022 09:44-0400 Heart rate 78 /min Elsie Pedraza MANAGER [employer] Work Phone: [facility] [employer] 12-10-2022 09:44-0400 Systolic blood pressure 151 mm[Hg] Elsie Pedraza MANAGER [employer] Work Phone: [facility] [employer] 11-18-2022 14:53-0400 Body height 160 cm Adrianne Sethi MD Work Phone: [facility] [employer] 11-18-2022 14:53-0400 Body mass index (BMI) [Ratio] 34.9 kg/m2 Adrianne Sethi MD Work Phone: [facility] [employer] 11-18-2022 14:53-0400 Body temperature 97.3 [degF] Adrianne Sethi MD Work Phone: [facility] 11-18-2022 14:53-0400 Body weight 89.36 kg Adrianne Sethi MD Work Phone: [facility] 11-18-2022 14:53-0400 Diastolic blood pressure 64 mm[Hg] Adrianne Sethi MD Work Phone: [facility] 11-18-2022 14:53-0400 Heart rate 80 /min Adrianne Sethi MD Work Phone: [facility] 11-18-2022 14:53-0400 Systolic blood pressure 140 mm[Hg] Adrianne Sethi MD Work Phone: [facility] 11-10-2022 10:51-0400 Body height 160.[address] Kali Bacon Work Phone: [facility] 11-10-2022 10:51-0400 Body weight 92.[address] Kali Bacon Work Phone: [facility] 11-09-2022 13:09-0400 Body mass index (BMI) [Ratio] 35.9 kg/m2 Dr. Kali Bacon Work Phone: [facility] 11-04-2022 09:32-0400 Body weight 92.[address] Kali Bacon Work Phone: [facility] 11-04-2022 09:32-0400 Diastolic blood pressure 71 mm[Hg] Dr. Kali Bacon Work Phone: [facility] 11-04-2022 09:32-0400 Heart rate 83 /min Dr. Kali Bacon Work Phone: [facility] 11-04-2022 09:32-0400 Respiratory rate 18 /min Dr. Kali Bacon Work Phone: [facility] 11-04-2022 09:32-0400 Systolic blood pressure 149 mm[Hg] Dr. Kali Bacon Work Phone: [facility] 10-29-2022 15:49-0400 Body mass index (BMI) [Ratio] 36.1 kg/m2 Dr. Kali Bacon Work Phone: [facility] 10-29-2022 15:49-0400 Body weight 92.[address] Kali Bacon Work Phone: [facility] 10-29-2022 15:49-0400 Diastolic blood pressure 69 mm[Hg] Dr. Kali Bacon Work Phone: [facility] 10-29-2022 15:49-0400 Systolic blood pressure 157 mm[Hg] Dr. Kali Bacon Work Phone: [facility] 10-08-2022 05:47-0500 Diastolic blood pressure 81 mm[Hg] Dr. Kali Bacon Work Phone: [phone] [place] [address] 10-08-2022 05:47-0500 Heart rate 74 /min Dr. Kali Bacon Work Phone: [facility] 10-08-2022 05:47-0500 Respiratory rate 20 /min Dr. Kali Bacon Work Phone: [facility] 10-08-2022 05:47-0500 SaO2% (BldA) [Mass fraction] 96 % Dr. Kali Bacon Work Phone: [facility] 10-08-2022 05:47-0500 Systolic blood pressure 175 mm[Hg] Dr. Kali Bacon Work Phone: [facility] 10-08-2022 01:59-0500 Body height 160.[address] Kali Bacon Work Phone: [facility] 10-08-2022 01:59-0500 Body mass index (BMI) [Ratio] 38.2 kg/m2 Dr. Kali Bacon Work Phone: [facility] 10-08-2022 01:59-0500 Body temperature 97.9 [degF] Dr. Kali Bacon Work Phone: [facility] 10-08-2022 01:59-0500 Body weight 97.[address] Kali Bacon Work Phone: [facility] 09-24-2022 08:54-0500 Body temperature 96.8 [degF] Yomaira Mcelroy MANAGER TRUCK.LAST SAWYER Work Phone: [facility] 09-24-2022 08:54-0500 Body weight 92.9 kg Yomaira Mcelroy MANAGER TRUCK[employer]ER Work Phone: [facility] 09-24-2022 08:54-0500 Diastolic blood pressure 84 mm[Hg] Yomaira Mcelroy MANAGER TRUCK.LAST SAWYER Work Phone: [facility] 09-24-2022 08:54-0500 Heart rate 88 /min Yomaira Mcelroy MANAGER TRUCK.LAST SAWYER Work Phone: [facility] 09-24-2022 08:54-0500 Respiratory rate 14 /min Yomaira Mcelroy MANAGER TRUCK.LAST SAWYER Work Phone: [facility] 09-24-2022 08:54-0500 SaO2% (BldA) [Mass fraction] 99 % Yomaira Mcelroy MANAGER TRUCK.LAST SAWYER Work Phone: [facility] 09-24-2022 08:54-0500 Systolic blood pressure 138 mm[Hg] Yomaira Mcelroy MANAGER TRUCK.LAST SAWYER Work Phone: [facility] 09-08-2022 11:01-0500 Body height 160.[address] Kali Bacon Work Phone: [facility] 09-08-2022 10:59-0500 Body mass index (BMI) [Ratio] 36.3 kg/m2 Dr. Kali Bacon Work Phone: [facility] 09-08-2022 10:59-0500 Body weight 93.[address] Kali Bacon Work Phone: [facility] 09-08-2022 10:59-0500 Diastolic blood pressure 84 mm[Hg] Dr. Kali Bacon Work Phone: [facility] 09-08-2022 10:59-0500 Systolic blood pressure 128 mm[Hg] Dr. Kali Bacon Work Phone: [facility] 07-30-2022 09:10-0500 Body height 160 cm Kali Bacon MD Work Phone: [facility] 07-30-2022 09:10-0500 Body temperature 97.11 [degF] Kali Bacon MD Work Phone: [facility] 07-30-2022 09:10-0500 Body weight 90.08 kg Kali Bacon MD Work Phone: [facility] 07-30-2022 09:10-0500 Diastolic blood pressure 76 mm[Hg] Kali Bacon MD Work Phone: [facility] 07-30-2022 09:10-0500 Heart rate 76 /min Kali Bacon MD Work Phone: [facility] 07-30-2022 09:10-0500 Respiratory rate 18 /min Kali Bacon MD Work Phone: [facility] 07-30-2022 09:10-0500 SaO2% (BldA) [Mass fraction] 98 % Kali Bacon MD Work Phone: [facility] 07-30-2022 09:10-0500 Systolic blood pressure 126 mm[Hg] Kali Bacon MD Work Phone: [facility] 04-01-2017 08:28-0400 BMI (Body Mass Index) 34.29 kg/m2 Chanda Sanz NP [facility] [place] 04-01-2017 08:28-0400 Body Temperature 97.1 [degF] Chanda Sanz NP [facility] 04-01-2017 08:28-0400 Body Temperature 97.11 [degF] Chanda Sanz NP [facility] 04-01-2017 08:28-0400 BP Diastolic 93 mm[Hg] Chanda Sanz NP [facility] 04-01-2017 08:[id number] BP Systolic 156 mm[Hg] Chanda Sanz KILN FIREMAN [facility] 04-01-2017 [id number]:[id number] Height 160.02 cm Chanda Sanz KILN FIREMAN [facility] 04-01-2017 08:28-0400 Pulse (Heart Rate) 68 /min Chanda Sanz KILN FIREMAN [facility] 04-01-2017 08:28-0400 Respiratory Rate 16 /min Chanda Sanz KILN FIREMAN [facility] 04-01-2017 08:280400 Weight 87.82 kg Chanda Sanz KILN FIREMAN [facility] Encounters Encounter Date Encounter Type Care Provider Facility Start: 01-31-2025 End: 01-31-2025 Follow-up encounter Ramos Solis LPN [facility] Start: 01-31-2025 Encounter for other preprocedural examination Dominic [facility] Start: 01-31-2025 ambulatory Dominic [place] Facility:[facility] Start: 01-31-2025 Evaluation and manag ement of inpatient Abelardo Aguilar Facility:[facility] Start: 01-29-2025 End: 01-29-2025 Follow-up encounter Kali Bacon MD Work Phone: [facility] Start: 01-27-2025 End: 01-27-2025 ambulatory KALI BACON Facility:[facility] Start: 01-26-2025 End: 01-26-[address] Dominic Issa MD -[facility] Work Phone: Start: 01-26-2025 End: 01-26-[address] Kali Bacon MD Work Phone: [facility] Work Phone: Start: 01-25-2025 End: 01-25-2025 Refill Kali Bacon MD Work Phone: [facility] Comment on above: Refill Request Start: 01-24-2025 End: 01-24-2025 Office outpatient visit 25 minutes Kali Bacon MD Work Phone: [facility] [place] Comment on above: Preop examination (P rimary [...] examination done Kali Bacon MD Work Phone: [facility] Work Phone: Start: 01-24-2025 End: 01-24-2025 ambulatory KALI BACON Facility:[id number] Start: 01-22-2025 End: 01-22-2025 ambulatory Dominic Issa Facility:[facility] Start: 01-16-2025 Non-patient / Non-visit Dr. Sandor Gilbert MD -[facility] Start: 01-16-2025 End: 01-16-[address] Kali Bacon MD Work Phone: [facility] Work Phone: Start: 01-16-2025 End: 01-16-2025 Patient encounter procedure Genesis GRIGGS -Cardiovascu lar Services Work Phone: Start: 01-16-2025 End: 01-16-2025 ambulatory Genesis Carbajal Facility:[facility] Start: 12-28-2024 End: 12-28-2024 Patient encounter procedure Ccf Provider [facility] inic Department Start: 12-26-2024 End: 12-26-2024 Telephone encounter Kali Bacon MD Work Phone: [facility] [place] Comment on above: Patient Question Start: 12-26-2024 End: 12-26-2024 ambulatory Injection [facility] Work Phone: Hematology/Oncology Comment on above: Other dietary vitami n B12 deficiency anemia (Primary Dx) Start: 12-25-2024 End: 12-25-[address] Dominic Issa MD -[facility] Work Phone: Start: 12-25-2024 End: 12-25-2024 ambulatory Dominic Issa Facility:[facility] Start: 12-06-2024 End: 12-06-2024 Refill Kali Bacon MD Work Phone: [facility] [place] Comment on above: Refill Request Start: 11-28-2024 End: 11-29-2024 Patient encounter procedure Ccf Provider [facility] inic Department Start: 11-28-2024 End: 11-28-2024 ambulatory North Dighton Ramiro Facility:[facility] Start: 11-28-2024 End: 11-28-2024 ambulatory Injection Goyo [facility] Work Phone: Hematology/Oncology Comment on above: Other dietary vitami n B12 deficiency anemia (Primary Dx) Start: 11-25-2024 End: 11-25-2024 ambulatory KALI BACON Facility:[facility] Start: 11-21-2024 End: 11-21-2024 Follow-up encounter Spring Shipley LPN [facility] [place] Comment on above: Results Start: 11-21-2024 End: 11-30-2024 Telephone encounter Fanny Anderson Work Phone: Hematology/Oncology Comment on above: Patient Question Start: 11-21-2024 End: 11-21-2024 ambulatory Injection [facility] Work Phone: Hematology/Oncology Comment on above: Other dietary vitami n B12 deficiency anemia (Primary Dx) Start: 11-20-2024 End: 11-20-2024 Subsequent hospital visit by physician [facility] [place] Work Phone: [facility] Comment on above: Right arm pain [M79. 601] Start: 11-20-2024 End: 11-20-2024 Office outpatient visit 15 minutes Kali Bacon MD Work Phone: [facility] [place] Comment on above: Right arm pain (Prim abdirashid Dx); Muscle strain of right upper arm, initial encounter; Anemia due to vitamin B12 deficiency, unspecified B12 deficiency type Start: 11-20-2024 End: 11-20-2024 ambulatory KALI BACON Facility:[id number] Start: 11-16-2024 End: 01-16-2025 Follow-up encounter Halie Jin APRN.CNP Work Phone: General Surgery Start: 11-15-2024 ambulatory MONICA BEY Facility:[facility] Start: 11-15-2024 End: 11-15-2024 Subsequent hospital visit by physician Marce Larkin MD Work Phone: [facility] Endoscopy Comment on above: Iron deficiency anem ia, unspecified iron deficiency anemia type [D50.9] Start: 11-14-2024 End: 11-14-2024 ambulatory Injection Goyo [facility] Work Phone: Hematology/Oncology Comment on [...] Start: 11-04-2024 End: 11-04-2024 ambulatory FANNY BARRON Facility:[facility] Start: 11-03-2024 End: 11-03-2024 Orders Only Fanny Barron Work Phone: Hematology/Oncology Comment on above: Iron deficiency anem ia, unspecified iron deficiency anemia type (Primary Dx); Other iron deficiency anemia Start: 10-25-2024 End: 10-25-[address] Kali Bacon MD Work Phone: [facility] Work Phone: Start: 10-25-2024 End: 10-25-[address] Monica Rothman DO -Laboratory, Specimen Work Phone: Start: 10-25-2024 End: 10-25-[address] Monica Rothman DO -[facility] Work Phone: Start: 10-25-2024 End: 10-25-2024 ambulatory Monica Rothman Facility:[facility] Start: 10-24-2024 End: 10-25-2024 Patient Outreach Lovely Polk RN [facility] [employer] Comment on above: Weekly phone contact (Recurring) for Transitional Care Management Start: 10-19-2024 Encounter for other preprocedural examination Dominic Issa [facility] Start: 10-17-2024 End: 10-17-2024 Patient Outreach Lovely Polk RN [facility] Comment on above: Weekly phone contact (Recurring) for Transitional Care Management Start: 10-11-2024 End: 10-11-[address] Kali Bacon MD Work Phone: [facility] Work Phone: Start: 10-11-2024 End: 10-11-[address] Shawn Cohen MD -Laboratory Work Phone: Start: 10-10-2024 End: 10-11-2024 ambulatory Lovely Polk RN [facility] Start: 10-10-2024 End: 10-10-2024 Follow-up encounter Mike GRIGGS Work Phone: [facility] Comment on above: Weekly phone contact (Recurring) for Transitional Care Management Start: 10-09-2024 End: 10-09-2024 ambulatory KALI BACON Facility:[facility] Start: 10-09-2024 End: 10-09-2024 Patient encounter procedure Chula Valentine MANAGER TRUCK.[employer]ER Work Phone: [facility] Comment on above: Vaginal itching (Jesi janessa Dx); H/O pyelonephritis Start: 10-03-2024 End: 10-03-2024 ambulatory Lovely Polk RN [facility] Comment on above: Weekly phone contact (Recurring) for Transitional Care Management Start: 10-02-2024 End: 10-02-2024 Transitional care manage srvc 7 day discharge Kali Bacon MD Work Phone: [facility] Comment on above: Encounter for suppor t and coordination of transition of care (Primary Dx); Acute pyelonephritis; Sepsis due to Escherichia coli without acute organ dysfunction (HCC); Type 2 diabetes mellitus without complication, without long-term current use of insulin (HCC); Visit for suture removal Start: 10-02-2024 End: 10-02-2024 Patient Outreach Lovely Polk RN [facility] [employer] [facility] Comment on above: Started Initial phon e contact for Transitional Care Management Start: 09-25-2024 End: 09-25-2024 Follow-up encounter Ramos Solis LPN [facility] [place] Start: 09-25-2024 End: 09-29-2024 Evaluation and management of inpatient AMBAR DAVIDSON Facility:[facility] Start: 09-21-2024 End: 09-21-[address] Dominic Issa MD -Outpatient Breast Imaging Work Phone: Start: 09-20-2024 End: 09-20-2024 Patient encounter procedure Kali Bacon MD Work Phone: [facility] Comment on above: Change in mole (Prim abdirashid Dx) Start: 09-20-2024 End: 09-21-2024 ambulatory KALI BACON Facility:[id number] Start: 09-18-2024 End: 09-18-2024 Patient encounter procedure Chanda CHAPARRO -Laboratory, Specimen Work Phone: Start: 09-18-2024 End: 09-18-2024 Patient encounter procedure Chanda CHAPARRO -[facility] [place] Work Phone: Start: 09-18-2024 End: 09-18-2024 Patient encounter status Chanda Sanz KILN FIREMAN-C [facility] Start: 09-18-2024 End: 09-18-2024 Refill Kali Bacon MD Work Phone: [facility] Comment on above: Refill Request Start: 09-18-2024 End: 09-18-2024 ambulatory Chanda Sanz NP Facility:[facility] Start: 09-16-2024 End: 09-16-2024 ambulatory KALI BACON Facility[facility] Start: 09-16-2024 End: 09-16-2024 Office outpatient visit 25 minutes Daly Fajardo MD Work Phone: [facility] Comment on above: URI, acute (Primary Dx); Asthma with acute exacerbation, unspecified asthma severity, unspecified whether persistent Start: 09-15-2024 End: 09-15-2024 Refill Kali Bacon MD Work Phone: [facility] Comment on above: Refill Request Start: 09-15-2024 End: 12-01-2024 Telephone encounter Halie Jin APRN.LAST SAWYER Work Phone: General Surgery Comment on above: 11-15-2024 Colon EGD Start: 09-14-2024 End: 09-14-2024 ambulatory FANNY BARRON Facility:[facility] Start: 09-14-2024 End: 09-14-2024 Patient encounter procedure Halie Jin APRN.LAST SAWYER Work Phone: General Surgery Comment on above: Family history of co reginald cancer (Primary Dx); Iron deficiency anemia, unspecified iron deficiency anemia type Start: 09-13-2024 End: 09-13-2024 Telephone encounter Kali Bacon MD Work Phone: [facility] Start: 09-11-2024 End: 09-11-2024 ambulatory Treatment Rm 16 [facility] Work Phone: Hematology/Oncology Comment on above: Iron deficiency anem ia, unspecified iron deficiency anemia type (Primary Dx) Start: 09-11-2024 Non-patient / Non-visit Dr. Jamari Rubio MD -[facility] Work Phone: Start: 09-11-2024 End: 09-11-2024 Patient encounter procedure Migdalia GRIGGS -Pulmonary Services/Neurology Work Phone: Start: 09-11-2024 End: 09-11-2024 ambulatory Migdalia GRIGGS Facility:[facility] Start: 09-08-2024 End: 09-08-2024 ambulatory Treatment Rm 17 G[facility] Work Phone: Hematology/Oncology Comment on above: Other iron deficienc y anemia (Primary Dx); Iron deficiency anemia, unspecified iron deficiency anemia type Start: 09-08-2024 End: 09-08-2024 Refill Kali Bacon MD Work Phone: [facility] [place] Comment on above: Refill Request Start: 09-06-2024 End: 09-06-2024 ambulatory Treatment Rm 14 [facility] Work Phone: Hematology/Oncology Comment on above: Iron deficiency anem ia, unspecified iron deficiency anemia type (Primary Dx) Start: 09-06-2024 End: 09-06-2024 ambulatory Migdalia GRIGGS Facility:[facility] Start: 09-06-2024 End: 09-06-2024 Patient encounter procedure Migdalia GRIGGS -[facility] Work Phone: Start: 09-05-2024 End: 09-05-2024 Subsequent hospital visit by physician [facility] [place] [facility] Start: 09-05-2024 End: 09-05-2024 ambulatory Fanny Barron Work Phone: Hematology/Oncology Comment on above: Iron deficiency anem ia, unspecified iron deficiency anemia type (Primary Dx); Anemia, unspecified type Start: 09-05-2024 End: 09-05-2024 Patient encounter procedure Fanny Barron Work Phone: Hematology/Oncology Start: 09-04-2024 End: 09-04-2024 Office outpatient visit 15 minutes Kali Bacon MD Work Phone: [facility] [place] Comment on above: Diabetes mellitus ty pe 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 (HCC) (Primary Dx); Change in mole Start: 09-04-2024 End: 09-04-2024 ambulatory KALI BACON Facility:[id number] Start: 09-03-2024 End: 09-03-2024 ambulatory KALI BACON Facility[facility] Start: 09-03-2024 End: 09-03-2024 Patient encounter procedure Mike GRIGGS Work Phone: [facility] Comment on above: Frequency of urinati on (Primary Dx) Start: 09-01-2024 End: 09-01-2024 ambulatory Treatment Rm 14 [facility] Work Phone: Hematology/Oncology Comment on above: Iron deficiency anem ia, unspecified iron deficiency anemia type (Primary Dx) Start: 09-01-2024 ambulatory Dominic Issa [facility] Start: 08-31-2024 End: 08-31-2024 Non-patient / Non-visit Dr. Yany Armendariz MD -[facility] Work Phone: Start: 08-31-2024 End: 09-01-2024 Admission to same day surgery center Dr. Dominic Issa MD -Surgical Day Care Start: 08-31-2024 End: 09-01-[address] Kali Bacon MD Work Phone: [facility] Work Phone: Start: 08-30-2024 End: 08-30-2024 ambulatory Treatment Rm 16 [facility] Work Phone: Hematology/Oncology Comment on above: Iron deficiency anem ia, unspecified iron deficiency anemia type (Primary Dx) Start: 08-25-2024 End: 08-29-2024 Refill Kali Bacon MD Work Phone: [facility] Comment on above: Refill Request Start: 2024 End: 2024 Telephone encounter Kali Bacon MD Work Phone: [facility] [place] Start: 08-22-2024 End: 08-22-2024 Patient encounter procedure Ccf Provider [facility] inic Department Start: 08-22-2024 End: 08-22-2024 Telephone encounter Kali Bacon MD Work Phone: [facility] Start: 08-21-2024 End: 08-21-2024 Office outpatient visit 25 minutes Kali Bacon MD Work Phone: [facility] Comment on above: Preop examination (P rimary Dx); Degeneration of intervertebral disc of lumbar region with discogenic back pain; Anemia, unspecified type Start: 08-21-2024 End: 08-21-2024 Preprocedural examination done Kali Bacon MD Work Phone: [facility] Start: 08-21-2024 End: 08-21-2024 ambulatory KALI BACON Facility:[id number] Start: 08-21-2024 ambulatory Chanda Yvon Facil it:[facility] Start: 08-18-2024 End: 08-18-2024 Patient encounter procedure Ccf Provider [facility] inic Department Start: 08-14-2024 End: 08-14-2024 Telephone encounter Kali Bacon MD Work Phone: [facility] [place] Comment on above: Results Start: 08-13-2024 End: 08-13-2024 Telephone encounter Kali Bacon MD Work Phone: [facility] [place] Start: 07-27-2024 End: 07-27-2024 ambulatory KALI BACON Facility[facility] Start: 07-26-2024 End: 07-26-2024 ambulatory KALI BACON Facility:[id number] Start: 07-23-2024 End: 07-24-2024 Refill Kali Bacon MD Work Phone: [facility] [place] Comment on above: Refill Request Start: 07-20-2024 End: 07-21-2024 Patient encounter procedure Ccf Provider [facility] in Department Start: 07-20-2024 End: 07-20-2024 ambulatory Dominic Issa Facility:[facility] Start: 07-17-2024 End: 07-17-[address] Dominic Issa MD -[facility] Work Phone: Start: 07-17-2024 End: 07-17-2024 ambulatory Dominic Issa Facility:[facility] Start: 07-12-2024 ambulatory Genesis Carbajal [facility] Start: 07-12-2024 Non-patient / Non-visit Dr. Sandor Gilbert MD -[facility] Start: 07-12-2024 End: 07-12-2024 Patient encounter procedure Genesis Carbajal PA -Cardiovascu lar Services Work Phone: Start: 07-12-2024 End: 07-12-2024 ambulatory Genesis Carbajal Facility:[facility] Start: 05-10-2024 End: 05-10-2024 ambulatory Migdalia GRIGGS Facility:[facility] Start: 05-03-2024 End: 05-03-2024 ambulatory Migdalia GRIGGS Facility:[facility] Start: 05-03-2024 End: 05-03-2024 ambulatory Migdalia Max PA Facility:[facility] Start: 04-12-2024 End: 04-12-2024 ambulatory Estephania Ayon RN [facility] Comment on above: Primary Care Coordin ator Chronic Care (Gap closure) Start: 03-14-2024 Patient encounter procedure Ccf [facility] Department Start: 02-28-2024 Patient encounter procedure Ccf [facility] Start: 02-23-2024 End: 02-23-2024 ambulatory Dominic Issa Facility:[facility] Start: 02-16-2024 End: 02-16-2024 Office outpatient visit 25 minutes Kali Bacon MD Work Phone: [facility] Comment on above: Hypertension, unspec ified type (Primary Dx); Type 2 diabetes mellitus without complication, without long-term current use of insulin (HCC); Pure hypercholesterolemia; 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); Arteriosclerosis of coronary artery; Paroxysmal atrial fibrillation (HCC); Stenosis of carotid artery, unspecified laterality; Internal carotid artery stent present; Side effect of medication Start: 02-16-2024 End: 02-16-2024 ambulatory KALI BACON Facility:[id number] Start: 02-15-2024 Refill Kali Smith MD Work Phone: [facility] Comment on above: Refill Request Start: 02-10-2024 End: 02-10-2024 [facility] Facility:[facility] Start: 02-09-2024 ambulatory [facility] Facility:[facility] Start: 02-09-2024 End: 02-09-2024 ambulatory [facility] Facility:[facility] Start: 02-07-2024 Telephone encounter Kali Bacon MD Work Phone: [facility] Comment on above: Referral Request Start: 02-03-2024 End: 02-03-2024 ambulatory Dominic Issa Facility:[facility] Start: 01-28-2024 ambulatory Kaela Carter [facility] Care Start: 01-27-2024 Patient encounter procedure [facility] Department Start: 01-25-2024 [facility] Start: 01-24-2024 End: 01-24-2024 Office outpatient visit 25 minutes Kali Bacon MD Work Phone: [facility] Comment on above: Pure hypercholestero lemia (Primary Dx); Hypertension, unspecified type; 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); Arteriosclerosis of coronary artery; Paroxysmal atrial fibrillation (HCC); Mild intermittent asthma without complication; Polyarthralgia Start: 11-12-2023 End: 11-12-[address] Kali Bacon Work Phone: [facility] Work Phone: Start: 11-12-2023 End: 11-12-[address] Kali Bacon Work Phone: [facility]-Cat Scan, [facility] Work Phone: Start: 11-01-2023 End: 11-01-2023 Office outpatient visit 15 minutes Kali Bacon MD Work Phone: [facility] [place] Comment on above: Rash (Primary Dx) Start: 10-27-2023 End: 10-27-[address] Kali Bacon Work Phone: [facility] Work Phone: Start: 10-27-2023 End: 10-27-[address] Kali Bacon Work Phone: [facility] Work Phone: Start: 10-18-2023 Non-patient / Non-visit Dr. Ra dandy Bacon Work Phone: [facility] Start: 10-18-2023 End: 10-18-[address] Kali Bacon Work Phone: [facility] Work Phone: Start: 10-18-2023 End: 10-18-[address] [facility] Start: 10-12-2023 End: 10-12-[address] Kali Bacon Work Phone: [facility] Work Phone: Start: 09-17-2023 End: 09-17-[address] Kali Bacon Work Phone: [facility]-Laboratory, Specimen Work Phone: Start: 09-17-2023 End: 09-17-[address] Kali Bacon Work Phone: [facility] Work Phone: Start: 09-15-2023 End: 09-15-[address] Kali Bacon Work Phone: [facility] Work Phone: Start: 09-15-2023 End: 09-15-[address] Kali Bacon Work Phone: [facility]-Laboratory Work Phone: Start: 08-19-2023 End: 08-19-2023 ambulatory [facility] Work Phone: Start: 08-19-2023 End: 08-19-2023 Patient encounter procedure [facility] Work Phone: Start: 07-21-2023 End: 07-21-2023 Patient encounter procedure Kali Bacon MD Work Phone: [facility] Comment on above: Wellness examination (Primary Dx); Encounter for screening for depression; Encounter for counseling regarding advance directives; Hypertension, unspecified type; Essential (primary) hypertension; Arteriosclerosis of coronary artery; Paroxysmal atrial fibrillation (HCC); Diabetes beginning in adulthood (type 2/adult onset) ([facility]); Screening for deficiency anemia; Pure hypercholesterolemia Start: 07-21-2023 End: 07-21-2023 Patient encounter status Kali Bacon MD Work Phone: [facility] Work Phone: Start: 07-14-2023 Telephone encounter Lauren Bassett MA [facility] Comment on above: Orders (Kiana Londono , this pt is due for A1C labs at their next ov 07/21. ) Start: 07-12-2023 End: 07-12-2023 Office outpatient visit 15 minutes Kali Bacon MD Work Phone: [facility] Comment on above: Hypertension, essent ial (Primary Dx); Pure hypercholesterolemia Start: 07-10-2023 End: 07-10-2023 Patient encounter procedure Marva Madera MANAGER TRUCK.[employer]ER Work Phone: [facility] Comment on above: Hypertension, unspec ified type (Primary Dx) Start: 06-29-2023 Patient encounter procedure [facility] Prov ider [facility] Department Start: 06-24-2023 End: 06-24-2023 Patient encounter procedure Savita Esquivelk MANAGER TRUCK.LAST [employer]ER Work Phone: [facility] Comment on above: Rash (Primary Dx); Tinea cruris Start: 06-14-2023 Telephone encounter Anum louis MANAGER TRUCK.[employer] Work Phone: OB/Gynecology Comment on above: Insurance Authorizat ion Start: 06-12-2023 End: 06-12-2023 Patient encounter procedure Anum Davis MANAGER TRUCK.[employer]ER Work Phone: [facility] Comment on above: Skin yeast infection (Primary Dx) Start: 05-25-2023 Refill Kali Smith MD Work Phone: [facility] Comment on above: Refill Request Start: 05-18-2023 Telephone encounter Marva Madera MANAGER TRUCK.[employer]ER Work Phone: [facility] Comment on above: Results Start: 05-17-2023 End: 05-17-2023 Patient encounter procedure Marva Madera MANAGER TRUCK.LAST [employer]ER Work Phone: [facility] Comment on above: Urinary frequency (P rimary Dx) Start: 04-20-2023 End: 04-20-2023 Patient encounter procedure Ramses Shukla MANAGER TRUCK.LAST [employer]ER Work Phone: Gastroenterology Comment on above: Belching (Primary Dx ); Bloating; Bile reflux gastritis Start: 04-16-2023 Telephone encounter Chula serna MANAGER TRUCK.[employer]ER Work Phone: Urgent Care Comment on above: Patient Update; Medi cation Problem Start: 04-14-2023 End: 04-14-2023 Patient encounter procedure Chula Valentine MANAGER TRUCK.[employer]ER Work Phone: [facility] Comment on above: UTI symptoms (Primar y Dx); Otitis externa of both ears, unspecified chronicity, unspecified type Start: 04-13-2023 Telephone encounter Tosin Arredondo Work Phone: Gastroenterology Comment on above: Patient Update Start: 04-08-2023 Non-patient / Non-visit Dr. Ra dandy Bacon Work Phone: [facility] Work Phone: Start: 04-08-2023 End: 04-15-[address] Kali Bacon Work Phone: [facility] Work Phone: Start: 04-08-2023 End: 04-15-[address] Kali Bacon [facility] Work Phone: Start: 04-07-2023 End: 04-07-[address] Kali Bacon Work Phone: [facility] Work Phone: Start: 04-06-2023 Refill Kali Smith MD Work Phone: [facility] Comment on above: Refill Request Start: 04-02-2023 End: 04-02-[address] Kali Bacon Work Phone: [facility] Work Phone: Start: 04-02-2023 End: 04-02-[address] [facility] Work [facility]: Start: 03-30-2023 Telephone encounter Kali Bacon MD Work Phone: [facility] Comment on above: Patient Question Start: 03-25-2023 Non-patient / Non-visit Dr. Ra dandy Bacon Work Phone: [facility] Work Phone: Start: 03-25-[address] Huber Bacon Work Phone: [facility] Work Phone: Start: 03-18-2023 Non-patient / Non-visit Dr. Ra dandy Bacon Work Phone: [facility] Work Phone: Start: 03-18-[address] Huber Bacon Work Phone: [facility] Work Phone: Start: 03-15-2023 End: 03-15-[address] Kali Bacon Work Phone: [facility] Work Phone: Start: 03-15-2023 End: 03-15-[address] [facility] Start: 03-12-2023 End: 03-12-2023 Non-patient / Non-visit Dr. Kali Bacon Work Phone: [facility] Work Phone: Start: 03-12-2023 End: 03-12-[address] Kali Bacon Work Phone: [facility] Work Phone: Start: 03-12-2023 End: 03-12-[address] Kali [facility] Work Phone: Start: 03-11-2023 Non-patient / Non-visit Dr. Ra dandy Bacon Work Phone: [facility] Work Phone: Start: 03-11-2023 End: 03-15-[address] Kali Bacon Work Phone: [facility] Work Phone: Start: 03-11-2023 End: 03-15-[address] Kali Bacon [facility] Work Phone: Start: 02-23-2023 Patient encounter procedure [facility] Prov ider [facility] Department Start: 02-23-2023 Telephone encounter Kali Bacon MD Work Phone: [facility] Comment on above: Hydrogel gel is excl uded from plan Start: 02-22-2023 Telephone encounter Kali Bacon MD Work Phone: [facility] Comment on above: Surgical Clearance Start: 02-11-2023 End: 02-11-[address] Kali Bacon Work Phone: [facility] Work Phone: Start: 02-11-2023 End: 02-11-[address] Kali [facility] Work [facility]: Start: 02-10-2023 End: 02-10-2023 Office outpatient visit 15 minutes Kali Bacon MD Work Phone: [facility] Comment on above: Pressure injury of b uttock, stage 3, unspecified laterality (HCC) (Primary Dx) Start: 01-28-2023 Telephone encounter Kali Bacon MD Work Phone: [facility] Comment on above: No PA required for S ymbicort Start: 01-25-2023 End: 01-25-[address] Kali Bacon Work Phone: [facility] Work Phone: Start: 01-18-2023 Telephone encounter Kali Bacon MD Work Phone: [facility] Comment on above: Orders Results Start: 01-14-2023 ambulatory KALI BACON Facility:[facility] Start: 01-14-2023 End: 01-14-2023 Subsequent hospital visit by physician Tosin Arredondo DO Work Phone: Procedures Comment on above: Belching symptom [R1 4.2] Start: 01-06-2023 ambulatory TOSIN LY Facility:[facility] Start: 01-06-2023 End: 01-06-2023 Subsequent hospital visit by physician [facility] Work Phone: [facility] Comment on above: Belching symptom [R1 4.2] Start: 01-04-2023 End: 01-04-2023 Emergency department patient visit Dr. Kali Bacon Work Phone: [facility]-Emergency Department Work Phone: Start: 12-25-2022 Telephone encounter Kali Bacon MD Work Phone: [facility] Comment on above: Patient Update Start: 12-22-2022 Patient encounter procedure [facility] Prov ider [facility] Department Start: 12-22-2022 End: 12-23-2022 ambulatory MONICA BIANCHI [facility] Start: 12-22-2022 End: 12-22-2022 Subsequent hospital visit by physician Monica Bianchi MANAGER TRUCK - [employer] Work Phone: [facility] Comment on above: SOB (shortness of br eath) Start: 12-22-2022 End: 12-22-2022 Emergency department patient visit Dr. Kali Bacon Work Phone: 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) Start: 12-07-2022 Refill Kali Smith MD Work Phone: [facility] [place] Comment on above: Refill Request Start: 12-03-2022 Orders Only Abraham Harris MD Work Phone: [facility] OR Start: 12-01-2022 End: 12-02-2022 [facility] Start: 11-30-2022 End: 12-01-2022 [facility] Start: 11-29-2022 End: 11-30-2022 Evaluation and management of inpatient Ach Xr Portable 1 [facility] Comment on above: Arrived Start: 11-28-2022 End: 11-29-2022 [facility] Start: 11-28-2022 End: 11-28-2022 Evaluation and management of inpatient Ach Xr Portable 1 [facility] Comment on above: Arrived Start: 11-28-2022 End: 11-28-2022 Evaluation and management of inpatient Ach Xr Portable 1 [facility] Comment on above: Arrived Start: 11-27-2022 End: 11-28-2022 [facility] Start: 11-27-2022 End: 11-27-2022 Evaluation and management of inpatient Ach Xr Portable 1 [facility] Comment on above: Arrived Start: 11-26-2022 End: 11-27-2022 [facility] Start: 11-26-2022 End: 11-26-2022 Evaluation and management of inpatient Ach Xr Portable 1 [facility] Comment on above: Arrived Start: 11-26-2022 End: 12-01-2022 Evaluation and management of inpatient [facility] Start: 11-25-2022 End: 11-25-[address] Kali Bacon Work Phone: [facility] Work Phone: Start: 11-25-2022 End: 11-25-[address] Kali Bacon Work Phone: [facility]-Laboratory Start: 11-20-2022 End: 11-21-2022 ambulatory ELSIE [facility]ON[facility]ALEZMartha [facility] Start: 11-20-2022 End: 11-20-2022 Subsequent hospital visit by physician Ach Xr Exam Room 1 [facility] Comment on above: Arrived Start: 11-20-2022 End: 11-20-2022 ambulatory KALI JORDI [facility] Start: 11-20-2022 End: 11-20-2022 Encounter for other preprocedural examination [facility] Start: 11-18-2022 End: 11-19-2022 ambulatory [facility] Start: 11-18-2022 End: 11-18-2022 Office outpatient new 60 minutes Adrianne Sethi MD Work Phone: [facility] Comment on above: Coronary artery dise ase involving redding coronary artery of redding heart with other form of angina pectoris (HCC) (Primary Dx) Start: 11-18-2022 Telephone encounter Adrianne ramirez MD Work Phone: [facility] Comment on above: Surgery Scheduling Start: 11-10-2022 Non-patient / Non-visit Dr. Ra dandy Bacon Work Phone: [facility] Start: 11-10-2022 End: 11-10-2022 Admission to same day surgery center Dr. Kali Bacon Work Phone: [facility]-Turn Down Attendant/Special Procedures Start: 11-10-2022 End: 11-10-[address] Kali Bacon Work Phone: [facility] Work Phone: Start: 11-04-2022 End: 11-04-2022 Patient encounter procedure [facility]cf Provider [facility] Department Start: 10-29-2022 End: 10-29-[address] Kali Bacon Work Phone: [facility] Start: 10-23-2022 Refill Kali Smith MD Work Phone: [facility] Comment on above: Refill Request Start: 10-12-2022 Patient encounter procedure [facility] Prov ider [facility] Department Start: 10-08-2022 End: 10-08-2022 Emergency department patient visit Dr. Kali Bacon Work Phone: [facility]-Emergency Department Start: 10-01-2022 End: 10-01-[address] Kali Bacon Work Phone: [facility] Work Phone: Start: 10-01-2022 End: 10-01-[address] Kali Bacon Work Phone: [facility] Start: 09-24-2022 End: 09-24-2022 Office outpatient visit 15 minutes Yomaira Mcelroy APRN.LAST [employer]WYER Work Phone: [facility] Comment on above: Acute pain of left s houlder (Primary Dx) Start: 09-09-2022 Refill Kali Smith MD Work Phone: [facility] Comment on above: Refill Request Start: 09-08-2022 End: 09-08-[address] Kali Bacon Work Phone: [facility] Work Phone: Start: 09-08-2022 End: 01-24-[address] [facility] Start: 09-08-2022 End: 09-08-[address] Kali Bacon Work Phone: [facility] Start: 07-30-2022 End: 07-30-2022 Patient encounter procedure Kali Bacon MD Work Phone: [facility] Comment on above: Wellness examination (Primary Dx); Essential (primary) hypertension; Hypercholesterolemia; 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); Mild intermittent asthma without complication; Polyarthralgia Start: 07-30-2022 End: 07-30-2022 Patient encounter status Kali Bacon MD Work Phone: [facility] Start: 07-24-2022 End: 07-24-2022 ambulatory [facility] Work Phone: Start: 07-24-2022 End: 07-24-2022 Patient encounter procedure [facility] Start: 07-01-2022 Chart abstracting Kali Bacon MD Work Phone: [facility] [place] Start: 06-30-2022 Chart abstracting Kali Bacon MD Work Phone: [facility] Start: 06-10-2022 End: 06-10-2022 Patient encounter procedure [facility] Start: 03-06-2022 Telephone encounter Kali Bacon MD Work Phone: [facility] Comment on above: Patient Question Start: 01-20-2022 End: 01-20-2022 Patient encounter procedure [facility] Start: 12-17-2021 End: 12-17-2021 Patient encounter procedure [facility] Start: 10-28-2021 End: 10-28-2021 Patient encounter procedure [facility] Start: 09-26-2021 End: 09-26-2021 Patient encounter procedure [facility], [facility] Procedures Date Procedure Procedure Detail Performing Clinician Start: 12-25-2024 X-ray of lumbosacral spine Dr. Kali bobby MD Work Phone: Start: 11-20-2024 Radex humerus minimum 2 views Kali Bacon MD Work Phone: Start: 11-15-2024 Esophagogastroduodenoscopy transoral diagnostic Halie Jin MANAGER TRUCK.[employer] Work Phone: Start: 11-15-2024 Colonoscopy flx dx w/collj spec when pfrmd Halie Jin MANAGER TRUCK.[employer] Work Phone: Start: 11-15-2024 Gluc bld gluc mntr dev cleared fda spec home use Abraham Sampson MANAGER TRUCK.IDEA WORKER Work Phone: Start: 11-15-2024 Colonoscopy Marce Larkin MD Work Phone: Start: 10-25-[address] Kali Bacon MD Work Phone: Start: 10-09-2024 Urnls dip stick/tablet rgnt auto w/o microscopy Chula Valentine MANAGER TRUCK.[employer] Work Phone: Start: 09-21-[address] [...] stick/tablet rgnt auto w/o microscopy Marycruz Rockwell MANAGER TRUCK.[employer]ER Work Phone: Start: 04-14-2023 Urnls dip stick/tablet rgnt auto w/o microscopy Marycruz Rockwell MANAGER TRUCK.[employer]ER Work Phone: Start: 01-14-2023 End: 01-14-2023 Cytp [...] 12-22-2022 Radiologic exam chest 2 views Monica Bianchi MANAGER TRUCK - [employer] Work Phone: Start: 12-22-2022 Diagnostic radiography of abdomen Dr. Ra dandy Bacon Work Phone: Start: 12-10-2022 Follow-up visit Follow-up ELSIE PEDRAZA Start: 11-29-2022 Radiologic exam chest single view Elsie Pedraza MANAGER TRUCK - [employer] Work Phone: Start: 11-28-2022 Radiologic exam abdomen 1 view Isabella Cruz MD Start: 11-28-2022 Radiologic exam chest single view Elsie Pedraza MANAGER TRUCK - [employer] Work Phone: Start: 11-27-2022 Radiologic exam chest single view Elsie Pedraza MANAGER TRUCK - [employer] Work Phone: Start: 11-26-2022 Radiologic exam chest single view Elsie Pedrzaa MANAGER TRUCK - [employer] Work Phone: Start: 11-20-2022 Lipid 1996 panel - Serum or Plasma Ach 1 Start: 11-14-2022 History of coronary artery bypass grafting History of coronary artery bypass graft x 3 Migdalia GRIGGS Comment on above: SMITH - LAD, SVG - OM, SVG - PDA Dr. Bubba thakkar @ [facility] 11/26/22 Start: 10-08-2022 Plain chest X-ray [...] Gynecologic examination Routine gynecological examination Chanda Sanz [employer] Start: 04-01-2017 Screening mammography Mammogram yearly screening Chanda Sanz [employer] Start: 04-01-2017 Venereal disease screening Std screening Chanda Milan s [employer] History of coronary artery bypass grafting S/P CABG x 3 Elsie AArielle Pedraza MANAGER TRUCK - [employer] Work Phone: Plan of Treatment Date Care Activity Detail Author Start: 04-29-2030 Screening for malignant neoplasm of colon [facility] Start: 11-15-2029 Screening for malignant neoplasm of colon [facility] Start: 01-24-2026 Annual PCP Team Chronic Disease Visit Annual PCP Team Chronic Disease Visit [facility] Start: 11-20-2025 Annual PCP Team Chronic Disease Visit Annual PCP Team Chronic Disease Visit [facility] Start: 11-20-2025 BP Controlled (<130/80) BP Controlled (<130/80) [facility] Start: 10-02-2025 Annual PCP Team Chronic Disease Visit Annual PCP Team Chronic Disease Visit [facility] Start: 09-21-2025 Screening for malignant neoplasm of breast Mammogram Screening [facility] Start: 09-20-2025 Annual PCP Team Chronic Disease Visit Annual PCP Team Chronic Disease Visit [facility] Start: 09-14-2025 BP Controlled (<130/80) BP Controlled (<130/80) [facility] Start: 09-04-2025 Annual PCP Team Chronic Disease Visit Annual PCP Team Chronic Disease Visit [facility] Start: 08-21-2025 Annual PCP Team Chronic Disease Visit Annual PCP Team Chronic Disease Visit [facility] Start: 08-21-2025 BP Controlled (<130/80) BP Controlled (<130/80) [facility] Start: 07-30-2025 End: 07-30-2025 Patient encounter procedure 07/30/2025 1:10 PM EST [facility] [address] [place] [id number] Kali Bacon MD [address] [place], [place] [id number] AMW [facility] Comment on above: AM Start: 07-27-2025 Hepatitis B surface antibody level LDL Cholesterol [facility] Start: 07-26-2025 Annual PCP Team Chronic Disease Visit Annual PCP Team Chronic Disease Visit [facility] Start: 07-26-2025 Anxiety Screening Anxiety Screening [facility] Start: 07-26-2025 Depression Screening Depression Screening [facility] Start: 05-27-2025 Hemoglobin A1c measurement HbA1C [facility] Start: 04-29-2025 Colonoscopy COLONOSCOPY [facility] Start: 04-29-2025 COLORECTAL CANCER SCREENING COLORECTAL CANCER SCREENING [facility] Start: 04-29-2025 Screening for malignant neoplasm of colon [facility] Start: 03-14-2025 Glaucoma screening Dilated Retinal Exam [facility] Start: 02-15-2025 Annual PCP Team Chronic Disease Visit Annual PCP Team Chronic Disease Visit [facility] Start: 01-30-2025 End: 01-30-2025 ambulatory [facility] Laboratory Comment on above: CBC/IRON STUDIES/B12/COPPER/ZINC* 3 MO OV/LAB EARLY* QMO B12/2-2* Start: 01-29-2025 End: 04-30-2025 Magnesium [Mass/volume] in Serum or Plasma MAGNESIUM Lab Routine Hypomagnesemia Expected: 01/29/2025, Expires: 04/30/2025 [facility] Work Phone: Comment on above: Expected: 01/29/2025, Expires: Start: 01-25-2025 Hemoglobin A1c measurement HbA1C [facility] Start: 01-24-2025 End: 01-24-2025 Patient encounter procedure [facility] [place] Comment on above: 6 Month Follow Up 6 Month Follow Up- s urgical clearance date of sx 01/31/25 Start: 01-23-2025 Annual PCP Team Chronic Disease Visit Annual PCP Team Chronic Disease Visit [facility] Start: 01-02-2025 End: 01-02-2025 ambulatory 01/02/2025 8:45 AM EDT Infusion Center Hematology/Oncology [address] [place] [address] Wstr, Injection Goyo [facility] [address] [place] [address] QMO B12/2-2* Hematology/Oncology Comment on above: QMO B12/2-2* Start: 12-26-2024 End: 12-26-2024 ambulatory 12/26/2024 9:15 AM EDT Infusion Center Hematology/Oncology [address] [place] [address] Wstr, Injection Goyo [facility] [address] [place] [address] QMO B12/1-2* Hematology/Oncology Comment on above: QMO B12/1-2* Start: 12-05-2024 End: 12-05-2024 ambulatory 12/05/2024 8:45 AM EDT Infusion Center Hematology/Oncology [address] [place] [address] Wstr, Injection Goyo [facility] [address] [place] [address] QMO B12/1-2* Hematology/Oncology Comment on above: QMO B12/1-2* Start: 11-28-2024 End: 11-28-2024 ambulatory Hematology/Oncology Comment on above: B12 QWK B12/4-4* THEN QM O X 2 Start: 11-21-2024 End: 11-21-2024 ambulatory Hematology/Oncology Comment on above: B12 QWK B12/3-4* THEN QM O X 2 Start: 11-15-2024 End: 11-15-2024 Patient encounter procedure [facility] Endoscopy Comment on above: Colon EGD Start: 11-14-2024 End: 11-14-2024 ambulatory 11/14/2024 8:45 AM EDT [facility] Hematology/Oncology [address] [place] [address] Wstr, Injection Goyo [facility] [address] [place] [address] B12 Hematology/Oncology Comment on above: B12 Start: 11-06-2024 End: 11-06-2024 ambulatory Hematology/Oncology Comment on above: 2MO OV/WALK IN LABS PER PATIENT* CBC/IRON STUDIES* Start: 11-03-2024 End: 02-02-2025 CBC W Auto Differential panel - Blood COMPLETE BLOOD COUNT AND DIFFERENTIAL Lab STAT Iron deficiency anemia, unspecified iron deficiency anemia type Other iron deficiency anemia Expected: 11/03/2024, Expires: 02/02/2025 [facility] Work Phone: Comment on above: Expected: 11/03/2024, Expires: Start: 11-03-2024 End: 02-02-2025 Ferritin [Mass/volume] in Serum or Plasma FERRITIN Lab Routine Iron deficiency anemia, unspecified iron deficiency anemia type Other iron deficiency anemia Expected: 11/03/2024, Expires: 02/02/2025 [facility] Comment on above: Expected: 11/03/2024, Expires: Start: 11-03-2024 End: 02-02-2025 Iron and Iron binding capacity panel - Serum or Plasma IRON AND TIBC Lab Routine Iron deficiency anemia, unspecified iron deficiency anemia type Other iron deficiency anemia Expected: 11/03/2024, Expires: 02/02/2025 [facility] Comment on above: Expected: 11/03/2024, Expires: Start: 10-31-2024 Annual PCP Team Chronic Disease Visit Annual PCP Team Chronic Disease Visit [facility] Start: 10-31-2024 BP Controlled (<130/80) BP Controlled (<130/80) [facility] Start: 10-31-2024 End: 01-30-2025 CBC W Auto Differential panel - Blood COMPLETE BLOOD COUNT AND DIFFERENTIAL Lab STAT Iron deficiency anemia, unspecified iron deficiency anemia type Expected: 10/31/2024 (Approximate), Expires: 01/30/2025 [facility] Comment on above: Expected: 10/31/2024 (Approximate), Expi res: 01/30/2025 Start: 10-31-2024 End: 01-30-2025 Cobalamin (Vitamin B12) [Mass/volume] in Serum or Plasma VITAMIN B12 Lab Routine Iron deficiency anemia, unspecified iron deficiency anemia type Expected: 10/31/2024 (Approximate), Expires: 01/30/2025 [facility] Comment on above: Expected: 10/31/2024 (Approximate), Expi res: 01/30/2025 Start: 10-31-2024 End: 01-30-2025 Comprehensive metabolic 2000 panel - Serum or Plasma COMPREHENSIVE METABOLIC PANEL Lab Routine Iron deficiency anemia, unspecified iron deficiency anemia type Expected: 10/31/2024 (Approximate), Expires: 01/30/2025 [facility] Comment on above: Expected: 10/31/2024 (Approximate), Expi res: 01/30/2025 Start: 10-31-2024 End: 01-30-2025 COPPER BLOOD COPPER BLOOD Lab Routine Iron deficiency anemia, unspecified iron deficiency anemia type Expected: 10/31/2024 (Approximate), Expires: 01/30/2025 [facility] Comment on above: Expected: 10/31/2024 (Approximate), Expi res: 01/30/2025 Start: 10-31-2024 End: 01-30-2025 Ferritin [Mass/volume] in Serum or Plasma FERRITIN Lab Routine Iron deficiency anemia, unspecified iron deficiency anemia type Expected: 10/31/2024 (Approximate), Expires: 01/30/2025 [facility] Work Phone: Comment on above: Expected: 10/31/2024 (Approximate), Expi res: 01/30/2025 Start: 10-31-2024 End: 01-30-2025 Folate [Mass/volume] in Serum or Plasma FOLATE, SERUM Lab Routine Iron deficiency anemia, unspecified iron deficiency anemia type Expected: 10/31/2024 (Approximate), Expires: 01/30/2025 [facility] Comment on above: Expected: 10/31/2024 (Approximate), Expi res: 01/30/2025 Start: 10-31-2024 End: 01-30-2025 Iron and Iron binding capacity panel - Serum or Plasma IRON AND TIBC Lab Routine Iron deficiency anemia, unspecified iron deficiency anemia type Expected: 10/31/2024 (Approximate), Expires: 01/30/2025 [facility] Comment on above: Expected: 10/31/2024 (Approximate), Expi res: 01/30/2025 Start: 10-31-2024 End: 01-30-2025 Methylmalonate [Moles/volume] in Serum or Plasma METHYLMALONIC ACID Lab Routine Iron deficiency anemia, unspecified iron deficiency anemia type Anemia, unspecified type Expected: 10/31/2024 (Approximate), Expires: 01/30/2025 [facility] Comment on above: Expected: 10/31/2024 (Approximate), Expi res: 01/30/2025 Start: 10-31-2024 End: 01-30-2025 Zinc [Mass/volume] in Serum or Plasma ZINC BLD Lab Routine Iron deficiency anemia, unspecified iron deficiency anemia type Expected: 10/31/2024 (Approximate), Expires: 01/30/2025 [facility] Comment on above: Expected: 10/31/2024 (Approximate), Expi res: 01/30/2025 Start: 10-29-2024 Covid-19 Vaccine () Covid-19 Vaccine ( season) [facility] Start: 10-25-2024 Bacteria identified in Urine by Culture Urine Culture [facility] Start: 10-25-2024 [facility] Start: 10-02-2024 End: 10-02-2024 Patient encounter procedure 10/02/2024 1:10 PM EST Office Visit [facility] [address] [place] [phone] Kali Bacon MD [address] [place], [place] [id number] Suture Removal [facility] Comment on above: Suture Removal Start: 09-20-2024 End: 09-20-2024 Patient encounter procedure 09/20/2024 1:00 PM EST Office Visit [facility] [address] [place] [phone] Kali Bacon MD [address] [place], [place] [phone] Mole Biopsy [facility] Comment on above: Mole Biopsy Start: 09-18-2024 End: 09-18-2024 Patient encounter procedure 09/18/2024 2:10 PM EST Office Visit [facility] [address] [place] [phone] Kali Bacon MD [address] [place], [place] [phone] Mole Biopsy [facility] Comment on above: Mole Biopsy Start: 09-14-2024 End: 09-14-2024 Patient encounter procedure General Surgery Comment on above: Iron deficiency anemia, unspecified iron deficiency anemia type [D50.9] Referral Hematology Due for Colonoscopy last 04/29/2020 [facility] Start: 09-11-2024 End: 09-11-2024 ambulatory 09/11/2024 11:00 AM EST Infusion Center Hematology/Oncology [address] [place] [address] 2ND Hematology/Oncology Comment on above: 2ND Start: 09-08-2024 End: 09-08-2024 ambulatory 09/08/2024 2:30 PM EST Infusion Center Hematology/Oncology [address] [place] [address] 2ND Hematology/Oncology Comment on above: 2ND Start: 09-06-2024 End: 09-06-2024 ambulatory 09/06/2024 1:30 PM EST Infusion Center Hematology/Oncology [address] [place] [address] 2ND Hematology/Oncology Comment on above: 2ND Start: 09-05-2024 End: 09-05-2024 Patient encounter procedure 09/05/2024 2:00 PM EST Appointment [facility] [address] [facility] [place] [address] bone density scan- [facility]) faxing over order [facility] Comment on above: bone density scan- [facility]) faxing over order Start: 09-05-2024 End: 09-05-2024 ambulatory 09/05/2024 10:30 AM EST Visit (SP) Office Hematology/Oncology [address] [place] [address] Fanny Barron [address] [place] [address] KILN FIREMAN/ ANEMIA/ ABNORMAL CBC RESULTS* PT REQUESTED DATE DUE TO SURG ON 09/11 Hematology/Oncology Comment on above: KILN FIREMAN/ ANEMIA/ ABNORMAL CBC RESULTS* PT REQ UESTED DATE DUE TO SURG ON 09/11 Start: 09-05-2024 End: 09-05-2024 FQ visit new patient 09/05/2024 9:00 AM EST Visit (SP) Office Hematology/Oncology [address] [place] [address] [place] [address] [place] [address] NEW PATIENT Hematology/Oncology Comment on above: NEW PATIENT Start: 09-04-2024 End: 09-04-2024 Patient encounter procedure 09/04/2024 3:10 PM EST Office Visit [facility] [address] [place] [phone] Kali Bacon MD [address] [place], [place] [address] Discuss A1C [facility] Comment on above: Discuss A1C Start: 09-04-2024 End: 12-04-2024 Hemoglobin A1c in Blood HEMOGLOBIN A1C Lab Routine 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) Expected: 09/04/2024, Expires: 12/04/2024 [facility] Work Phone: Comment on above: Expected: 09/04/2024, Expires: Start: 09-04-2024 End: 09-04-2024 ambulatory 09/04/2024 1:30 PM EST Infusion Center Hematology/Oncology [address] [place] [address] 2ND Hematology/Oncology Comment on above: 2ND Start: 09-01-2024 End: 09-01-2024 ambulatory 09/01/2024 1:30 PM EST Infusion Center Hematology/Oncology [address] [place] [address] 2ND Hematology/Oncology Comment on above: 2ND Start: 08-30-2024 End: 08-30-2024 ambulatory 08/30/2024 1:30 PM EST Infusion Center Hematology/Oncology [address] [place] [address] 2ND Hematology/Oncology Comment on above: 2ND Start: 08-21-2024 End: 08-21-2024 Patient encounter procedure 08/21/2024 4:40 PM EST Office Visit [facility] [address] [place] [phone] Kali Bacon MD [address] [place], [place] [phone] UBCPresurgical Clearance [facility] Comment on above: UBCPresurgical Clearance Start: 08-16-2024 Advance Directive Discussion Advance Directive Discussion [facility] Start: 08-16-2024 Medicare [facility] Annual Wellness Visit Medicare Advantage Annual Wellness Visit [facility] Start: 08-13-2024 End: 11-12-2024 Ferritin [Mass/volume] in Serum or Plasma FERRITIN Lab Routine Anemia, unspecified type Expected: 08/13/2024, Expires: 11/12/2024 [facility] Comment on above: Expected: 08/13/2024, Expires: Start: 08-13-2024 End: 11-12-2024 Iron and Iron binding capacity panel - Serum or Plasma IRON AND TIBC Lab Routine Anemia, unspecified type Expected: 08/13/2024, Expires: 11/12/2024 [facility] Work Phone: Comment on above: Expected: 08/13/2024, Expires: Start: 07-26-2024 End: 07-26-2024 Patient encounter procedure 07/26/2024 2:30 PM EST Office Visit [facility] [address] [place] [phone] Kali Bacon MD [address] [place], [place] [phone] Annual Wellness [facility] Comment on above: Annual Wellness Start: 07-22-2024 Hepatitis B surface antibody level LDL Cholesterol [facility] Start: 07-21-2024 Annual PCP Team Chronic Disease Visit Annual PCP Team Chronic Disease Visit [facility] Start: 07-12-2024 Annual PCP Team Chronic Disease Visit Annual PCP Team Chronic Disease Visit [facility] Start: 05-10-2024 Annual PCP Team Chronic Disease Visit Annual PCP Team Chronic Disease Visit [facility] Start: 04-20-2024 BP CONTROLLED (<130/80) BP CONTROLLED (<130/80) [facility] Start: 04-16-2024 Covid-19 Vaccine () Covid-19 Vaccine () [facility] Start: 04-16-2024 Influenza vaccination Influenza Vaccine (#1) [facility] Start: 02-23-2024 ANNUAL PCP TEAM CHRONIC DISEASE VISIT ANNUAL PCP TEAM CHRONIC DISEASE VISIT [facility] Start: 02-16-2024 End: 05-17-2024 Comprehensive metabolic 2000 panel - Serum or Plasma COMPREHENSIVE METABOLIC PANEL Lab Routine Hypertension, unspecified type Type 2 diabetes mellitus without complication, without long-term current use of insulin (HCC) Pure hypercholesterolemia Expected: 02/16/2024, Expires: 05/17/2024 [facility] Comment on above: Expected: 02/16/2024, Expires: Start: 02-16-2024 End: 05-17-2024 Hemoglobin A1c in Blood HEMOGLOBIN A1C Lab Routine Type 2 diabetes mellitus without complication, without long-term current use of insulin (HCC) Expected: 02/16/2024, Expires: 05/17/2024 [facility] Work Phone: Comment on above: Expected: 02/16/2024, Expires: Start: 02-16-2024 End: 05-17-2024 Lipid 1996 panel - Serum or Plasma LIPID PANEL BASIC Lab Routine Pure hypercholesterolemia Expected: 02/16/2024, Expires: 05/17/2024 [facility] Comment on above: Expected: 02/16/2024, Expires: Start: 02-11-2024 ANNUAL PCP TEAM CHRONIC DISEASE VISIT ANNUAL PCP TEAM CHRONIC DISEASE VISIT [facility] Start: 01-28-2024 ANNUAL PCP TEAM CHRONIC DISEASE VISIT ANNUAL PCP TEAM CHRONIC DISEASE VISIT [facility] Start: 01-26-2024 Hepatitis B surface antibody level LDL CHOLESTEROL [facility] Start: 01-24-2024 End: 04-24-2024 Lipid 1996 panel - Serum or Plasma LIPID PANEL BASIC Lab Routine Pure hypercholesterolemia Expected: 01/24/2024, Expires: 04/24/2024 [facility] Work Phone: Comment on above: Expected: 01/24/2024, Expires: Start: 01-24-2024 End: 01-24-2024 Patient encounter procedure 01/24/2024 2:00 PM EDT Office Visit [facility] [address] [place] [phone] Kali Bacon MD [address] [place] [place], [place] [address] 6 Month Follow Up [facility] Comment on above: 6 Month Follow Up Start: 01-21-2024 Hemoglobin A1c measurement HbA1C [facility] Start: 12-31-2023 ANNUAL PCP TEAM CHRONIC DISEASE VISIT ANNUAL PCP TEAM CHRONIC DISEASE VISIT [facility] Start: 11-21-2023 Hepatitis B surface antibody level LDL CHOLESTEROL [facility] Start: 11-21-2023 Lipid panel Lipid Panel [facility] Start: 10-14-2023 Covid-19 Vaccine () Covid-19 Vaccine () [facility] Start: 09-24-2023 ANNUAL PCP TEAM CHRONIC DISEASE VISIT ANNUAL PCP TEAM CHRONIC DISEASE VISIT [facility] Start: 09-24-2023 BP CONTROLLED (<130/80) BP CONTROLLED (<130/80) [facility] Start: 09-17-2023 Liquid based cervical cytology screening [facility] Start: 09-15-2023 Procedure [facility] Start: 08-16-2023 Advance Directive Discussion Advance Directive Discussion [facility] Start: 08-16-2023 Behavioral Health Screening Behavioral Health Screening [facility] Start: 08-16-2023 Depression Assessment Depression Assessment [facility] Start: 07-30-2023 ANNUAL PCP TEAM CHRONIC DISEASE VISIT ANNUAL PCP TEAM CHRONIC DISEASE VISIT [facility] Start: 07-30-2023 BP CONTROLLED (<130/80) BP CONTROLLED (<130/80) [facility] Start: 07-27-2023 Hemoglobin A1c/Hemoglobin.total in Blood HBA1C [facility] Start: 07-21-2023 End: 10-20-2023 CBC W Auto Differential panel - Blood CBC + DIFF Lab Routine Screening for deficiency anemia Expected: 07/21/2023, Expires: 10/20/2023 [facility] Work Phone: Comment on above: Expected: 07/21/2023, Expires: 4 Start: 07-21-2023 End: 10-20-2023 Comprehensive metabolic 2000 panel - Serum or Plasma COMP METABOLIC PANEL Lab Routine Hypertension, unspecified type Diabetes beginning in adulthood (type 2/adult onset) ([facility]) Pure hypercholesterolemia Expected: 07/21/2023, Expires: 10/20/2023 [facility] Work Phone: Comment on above: Expected: 07/21/2023, Expires: 4 Start: 07-21-2023 End: 10-20-2023 Hemoglobin A1c in Blood HGB A1C Lab Routine 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) Expected: 07/21/2023, Expires: 10/20/2023 [facility] Work Phone: Comment on above: Expected: 07/21/2023, Expires: 4 Start: 07-21-2023 End: 10-20-2023 Lipid 1996 panel - Serum or Plasma LIPID PANEL BASIC Lab Routine Pure hypercholesterolemia Expected: 07/21/2023, Expires: 10/20/2023 [facility] Work Phone: Comment on above: Expected: 07/21/2023, Expires: 4 Start: 06-10-2023 Screening for malignant neoplasm of breast Mammogram [facility] Start: 05-22-2023 Hemoglobin A1c/Hemoglobin.total in Blood HBA1C [facility] Start: 04-16-2023 Covid-19 Vaccine ( season) Covid-19 Vaccine () [facility] Start: 04-16-2023 Influenza vaccination [facility] Start: 02-19-2023 Hemoglobin A1c measurement Diabetes: Hemoglobin A1C [facility] Start: 12-24-2022 End: 12-24-2022 Patient encounter procedure 12/24/2022 Office Visit Cardiothoracic Surgery Elsie Pedraza, MANAGER [employer] [address] [address] [facility] Cardiovascular [facility] Thor[facility] Start: 12-17-2022 Hepatitis B surface antibody level LDL CHOLESTEROL [facility] Start: 12-10-2022 End: 12-10-2022 Patient encounter procedure 12/10/2022 Office Visit Cardiothoracic Surgery Elsie Pedraza [employer] [address] [place] [address] [facility] Cardiovascular & Thoracic Surgery Start: 11-26-2022 End: 11-26-2022 Admission to same day surgery center 11/26/2022 Surgery Procedural Adrianne Sethi MD [address] [facility] [address] [place] [address] CABG WITH CHERI [75403 (CPT )] [facility] MAIN OR Comment on above: CABG WITH CHERI [52460 (CPT )] Start: 11-26-2022 End: 11-26-2022 Anesthesia consultation 11/26/2022 Anesthesia Event Procedural Dl Stewarty, MANA[employer] [address] [place] [address] [facility] MAIN OR Start: 11-26-2022 End: 11-26-2022 Cabg w/arterial graft single arterial graft CABG X1 ARTERIAL 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 11/26/2022 7:00 AM EDT [facility] Operating Room Start: 11-26-2022 End: 11-26-2022 Echo transesophag r-t 2d w/prb img acquisj i&r Echocardiography transesophageal real-time Atherosclerotic heart disease of redding coronary artery without angina pectoris 11/26/2022 7:00 AM EDT [facility] Operating Room Start: 11-26-2022 Subsequent hospital visit by physician 11/26/2022 Hospital Encounter Procedural Adrianne Sethi MD [address] [facility] [address] [place] [address] [facility] MAIN OR Start: 11-20-2022 End: 11-20-2022 Admission to establishment 11/20/2022 Pre-Admission Testing Pre-Admission Testing [facility] Pre-Admit Testing Start: 10-16-2022 Glaucoma screening Dilated Retinal Exam [facility] Start: 10-16-2022 Hepatitis C antibody, confirmatory test DILATED RETINAL EXAM [facility] Start: 10-12-2022 COVID-19 VACCINE (6 - Moderna series) COVID-19 VACCINE (6 - Moderna series) [facility] Start: 10-08-2022 [facility] Start: 08-16-2022 ADVANCE DIRECTIVE DISCUSSION ADVANCE DIRECTIVE DISCUSSION [facility] Start: 08-16-2022 DEPRESSION ASSESSMENT DEPRESSION ASSESSMENT [facility] Start: 06-19-2022 Hemoglobin A1c/Hemoglobin.total in Blood HBA1C [facility] Start: 04-16-2022 Influenza vaccination INFLUENZA (#1) [facility] Start: 08-16-2021 ADVANCE DIRECTIVE DISCUSSION ADVANCE DIRECTIVE DISCUSSION [facility] Start: 08-16-2021 DEPRESSION ASSESSMENT DEPRESSION ASSESSMENT [facility] Start: 04-29-2021 Colonoscopy COLONOSCOPY [facility] Start: 04-29-2021 COLORECTAL CANCER SCREENING COLORECTAL CANCER SCREENING [facility] Start: 04-17-2021 COVID-19 VACCINE (3 - Booster for Moderna series) COVID-19 VACCINE (3 - Booster for Moderna series) [facility] Start: 01-10-2021 COVID-19 VACCINE (3 - Booster for Moderna series) COVID-19 VACCINE (3 - Booster for Moderna series) [facility] Start: 03-21-2020 SHINGRIX VACCINE (2 of 3) SHINGRIX VACCINE (2 of 3) [facility] Start: 2017 BONE DENSITY BONE DENSITY [facility] Start: 2017 Bone Density Screening Bone Density Screening [facility] Start: 2017 PNEUMOCOCCAL: 65+ (1 - PCV) PNEUMOCOCCAL: 65+ (1 - PCV) [facility] Start: 2017 Screening for osteoporosis Bone Density Screening [facility] Start: 04-01-2017 End: 04-01-2017 Appointment Appointment [facility] Start: 04-01-2017 End: 04-01-2017 *GC/Chlamydia *GC/Chlamydia [facility] Start: 04-01-2017 End: 04-01-2017 Mammogram, screening Mammogram, Screening, both breasts [facility] Start: 2012 Hepatitis B Vaccine (1 of 3 - Risk 3-dose series) Hepatitis B Vaccine (1 of 3 - Risk 3-dose series) [facility] Start: 2012 RSV Vaccine (1 - 1-dose 60+ series) RSV Vaccine (1 - 1-dose 60+ series) [facility] Start: 2002 SHINGRIX VACCINE (1 of 2) SHINGRIX VACCINE (1 of 2) [facility] Start: 1997 COLOGUARD (FIT-DNA) COLOGUARD (FIT-DNA) [facility] Start: [address] COLONOGRAPHY [facility] Start: 1997 DIABETES SCREEN DIABETES SCREEN [facility] Start: 1997 FECAL OCCULT BLOOD FECAL OCCULT BLOOD [facility] Start: 1997 LIPID SCREEN LIPID SCREEN [facility] Start: 1997 Screening for malignant neoplasm of colon [facility] Start: 1997 SIGMOIDOSCOPY SIGMOIDOSCOPY [facility] Start: 1992 Mammography [facility] Start: 1992 Screening for malignant neoplasm of breast Mammogram Screening [facility] Start: 1971 DTaP/Tdap/Td Vaccines (1 - Tdap) DTaP/Tdap/Td Vaccines (1 - Tdap) [facility] Start: 1971 Urine microalbumin profile [facility] Start: 1971 Urine screening for protein Diabetes: Urine Protein Screening [facility] Start: 1970 ANNUAL PCP TEAM CHRONIC DISEASE VISIT ANNUAL PCP TEAM CHRONIC DISEASE VISIT [facility] Start: 1970 Anxiety Screening Anxiety Screening [facility] Start: 1970 BP CONTROLLED (<130/80) BP CONTROLLED (<130/80) [facility] Start: 1970 Depression Screening Depression Screening [facility] Start: 1970 Hepatitis B surface antibody level LDL CHOLESTEROL [facility] Start: 1970 HEPATITIS C SCREENING HEPATITIS C SCREENING [facility] Start: 1970 Hepatitis C screening Hepatitis C Screening [facility] Start: 1970 SPIROMETRY SPIROMETRY [facility] Start: 1964 Adult depression screening assessment DEPRESSION SCREENING [facility] Start: 1962 3 comp foot exam completed DIABETIC FOOT EXAM [facility] Start: 1962 Diabetic foot examination [facility] Start: 1962 Glaucoma screening Diabetes: Retinopathy Screening [facility] Start: 1962 Hepatitis B screening URINE ALBUMIN:CREATININE RATIO [facility] Start: 1962 Preventive dental service Diabetes: Dental Exam [facility] Start: 1958 PNEUMOCOCCAL: 65+ (1 - PCV) PNEUMOCOCCAL: 65+ (1 - PCV) [facility] Start: 1957 Hemoglobin A1c/Hemoglobin.total in Blood HBA1C [facility] Start: 1952 Hemoglobin A1c measurement Diabetes: Hemoglobin A1C [facility] Start: 1952 Hepatitis B Vaccines (1 of 3 - 3-dose series) Hepatitis B Vaccines (1 of 3 - 3-dose series) [facility] Start: 1950 Lipid panel Lipid Panel [facility] Start: 1950 Screening for malignant neoplasm of colon [facility] Start: 1950 Screening for osteoporosis Bone Density Scan [facility] Start: 1950 Thyroid stimulating hormone measurement TSH Level [facility] Bacteria identified in Urine by Culture URINE CULTURE Microbiology Routine UTI symptoms 04/14/2023 12:25 PM EDT [facility] Work Phone: Bacteria identified in Urine by Culture URINE CULTURE Microbiology Routine Urinary frequency 05/17/2023 12:25 PM T [facility] Work Phone: Bacteria identified in Urine by Culture BACTERIAL CULTURE, URINE Microbiology Routine Frequency of urination Ordered: 09/03/2024 [facility] Work Phone: Comment on above: Ordered: 09/03/2024 Bacteria identified in Urine by Culture BACTERIAL CULTURE, URINE Microbiology Routine Vaginal itching H/O pyelonephritis 10/09/2024 11:30 AM EST [facility] BACTERIAL VAGINOSIS NAAT BACTERIAL VAGINOSIS NAAT Lab Routine Vaginal itching 10/09/2024 11:30 AM EST [facility] MADELINE/TRICHOMONAS NAAT MADELINE/TRICHOMONAS NAAT Lab Routine Vaginal itching 10/09/2024 11:30 AM EST [facility] Work Phone: Catheterization of left heart [facility] COVID & INFLUENZA A/ B & RSV PCR, ROUTINE COVID & INFLUENZA A/B & RSV PCR, ROUTINE Microbiology Routine URI, acute Asthma with acute exacerbation, unspecified asthma severity, unspecified whether persistent Ordered: 09/16/2024 [facility] Work Phone: Comment on above: Ordered: 09/16/2024 CTA Head vessels and Neck vessels W contrast IV [facility] DXA Bone [Mass/Area] Bone density [facility] End: 09-14-2025 EGD DIAGNOSTIC EGD DIAGNOSTIC Endoscopy Routine Iron deficiency anemia, unspecified iron deficiency anemia type 1 Occurrences starting 09/14/2024 until 09/14/2025 [facility] Work Phone: Comment on above: 1 Occurrences starting 09/14/2024 until 09/14/2025 End: 09-14-2025 Flexible sigmoidoscopy study COLONOSCOPY DIAGNOSTIC Endoscopy Routine Iron deficiency anemia, unspecified iron deficiency anemia type Family history of colon cancer 1 Occurrences starting 09/14/2024 until 09/14/2025 [facility] Comment on above: 1 Occurrences starting 09/14/2024 until 09/14/2025 End: 01-24-2026 Magnesium [Mass/volume] in Serum or Plasma MAGNESIUM Lab Routine Hypomagnesemia 3x per week for 6 Occurrences starting 01/24/2025 until 01/24/2026 [facility] Work Phone: Comment on above: 3x per week for 6 Occurrences starting 0 01/24/2025 until 01/24/2026 MG Breast - bilatera l Screening [facility] Path report.final Dx Spec [facility] Patient Education [facility] Work Phone: Patient referral [facility] Work Phone: SURGICAL PATHOLOGY SURGICAL PATH OLOGY Lab Routine Change in mole Ordered: 09/20/2024 [facility] Work Phone: Comment on above: Ordered: 09/20/2024 Tissue Pathology biopsy report SURGICAL PATHOLOGY Lab Routine Ordered: 10/02/2024 [facility] Work Phone: Comment on above: Ordered: 10/02/2024 Tissue Pathology biopsy report [facility] Work Phone: Comment on above: Release Upon Ordering for 1 Occurrences starting 11/15/2024, 1 completed Urine culture [facility] XR Chest 2 Views XR chest 2 view s Imaging Routine CAD in redding artery Hyperlipidemia, unspecified hyperlipidemia type 11/20/2022 4:04 PM EDT [facility] Work Phone: [facility] Immunizations Immunization Date Immunization Notes Care Provider Fa dante 05-01-2024 influenza, high dose seasonal, preservative-free Kali Bacon MD Work Phone: [facility] 07-19-2023 respiratory syncytia l virus (RSV) vaccine, adjuvanted (AREXVY) Kali Bacon MD Work Phone: [facility] 05-17-2023 influenza (HD-IIV4) vaccine, age 65+ yr, high dose, quadrivalent, PF (FLUZONE HIGH-DOSE) Kali Bacon MD Work Phone: [facility] 05-17-2023 influenza virus vacc ine, unspecified formulation Kali Bacon MD Work Phone: [facility] 06-11-2022 COVID-19 booster vac cine, age 12+ yr, bivalent (MODERNA) Yomaira Mcelroy [employer]GER [employer] Work Phone: [facility] 06-01-2022 influenza, high-dose , quadrivalent vaccine (FLUZONE HIGH DOSE QUADRIVALENT) Yomaira Mcelroy [employer]GER [employer] Work Phone: [facility] 06-01-2022 influenza virus vacc ine, unspecified formulation Marva Madera [employer]NAGER [employer] Work Phone: [facility] 12-02-2021 COVID-19 original vaccine, full dose, monovalent (MODERNA) Yomaira Mcelroy [employer]NAGER [employer] Work Phone: [facility] 07-11-2021 COVID-19 original vaccine, full dose, monovalent (MODERNA) Yomaira Mcelroy [employer]NAGER [employer] Work Phone: [facility] 05-12-2021 influenza, high-dose , quadrivalent vaccine (FLUZONE HIGH DOSE QUADRIVALENT) Yomaira Mcelroy [employer]NAGER [employer] Work Phone: [facility] 11-15-2020 COVID-19 original vaccine, full dose, monovalent (MODERNA) Yomaira Lilibeth [employer]NAGER [employer] Work Phone: [facility] 10-18-2020 COVID-19 original vaccine, full dose, monovalent (MODERNA) Yomaira Lilibeth [employer]NAGER [employer] Work Phone: [facility] 05-22-2020 influenza nasal, unspecified formulation Yomaira Lilibeth [employer]NAGER [employer] Work Phone: [facility] 05-22-2020 influenza, high-dose , quadrivalent vaccine (FLUZONE HIGH DOSE QUADRIVALENT) Yomaira Mcelroy [employer]NAGER [employer] Work Phone: [facility] 01-25-2020 zoster vaccine recombinant Yomaira Lilibeth [employer]GER [employer] Work Phone: [facility] 01-25-2020 zoster vaccine, live Yomaira S zymanski [employer]GER [employer] Work Phone: [facility] 10-26-2019 zoster vaccine recombinant Yomaira Lilibeth [employer]GER [employer] Work Phone: [facility] 10-26-2019 zoster vaccine, live Yomaira S zymanski [employer]GER [employer] Work Phone: [facility] 06-28-2019 pneumococcal conjuga te vaccine, 13 valent Yomaira Lilibeth [employer]GER [employer] Work Phone: [facility] 06-13-2018 pneumococcal polysaccharide vaccine, 23 valent Yomaira Lilibeth [employer]GER [employer] Work Phone: [facility] 06-08-2018 influenza nasal, unspecified formulation Yomaira Lilibeth [employer]GER [employer] Work Phone: [facility] Payers Date Payer Category Payer Self-pay [id number] 2020 Medicare UHC AAR MEDICAR E [facility] MEDICARE O [id number] 2020-Present [phone] [address] [address] [place] [address] HMO [id number] 2020 Medicare [id number] 2020 Medicare (Managed Care) [facility] MEDICARE HMO [id number] 2020 Unknown [id number] 2016 Unknown [id number] 2016 Unknown [id number] Medicare [id number] Unknown AULTCARE [id number] Unknown [id number] 2.840.1.910069.3.579.2. 462 Unknown [id number] 2.840.1.638095.3.579.2. 462 Unknown [id number] 2.16.840.1.451862.3.579.2. 462 Unknown [id number] 2.16.840.1.317443.3.579.2. 462 Unknown [id number] 2.16.840.1.465495.3.579.2. 462 Unknown [id number] 2.16.840.1.232451.3.579.2. 462 Unknown [id number] 2.16.840.1.071038.3.579.2. 462 Unknown [id number] 2.16.840.1.649131.3.579.2. 462 Unknown [id number] 2.16.840.1.137191.3.579.2. 462 Unknown [id number] 2.16.840.1.765096.3.579.2. 462 Unknown [id number] 2.16.840.1.370461.3.579.2. 462 Unknown [id number] 2.16.840.1.419373.3.579.2. 462 Unknown [id number] 2.16.840.1.543869.3.579.2. 462 Unknown [id number] 2.16.840.1.771962.3.579.2. 462 Unknown [id number] 2.16.840.1.788688.3.579.2. 462 Unknown [id number] 2.16.840.1.825707.3.579.2. 462 Unknown [id number] 2.16.840.1.408892.3.579.2. 462 Unknown [id number] 2.16.840.1.307411.3.579.2. 462 Unknown [id number] 2.16.840.1.376732.3.579.2. 462 Unknown [id number] 2.16.840.1.746265.3.579.2. 462 Unknown [id number] 2.16.840.1.157488.3.579.2. 462 Unknown [id number] 2.16.840.1.268103.3.579.2. 462 Unknown [id number] 2.16.840.1.572878.3.579.2. 462 Unknown [id number] 2.16.840.1.323152.3.579.2. 462 Unknown [id number] 2.16.840.1.962675.3.579.2. 462 Unknown [id number] 2.16.840.1.133427.3.579.2. 462 Unknown [id number] 2.16.840.1.478157.3.579.2. 462 Unknown [id number] 2.16.840.1.437036.3.579.2. 462 Unknown [id number] 2.16.840.1.406582.3.579.2. 462 Unknown [id number] 2.16.840.1.171185.3.579.2. 462 Unknown [id number] 2.16.840.1.305255.3.579.2. 462 Unknown [id number] 2.16.840.1.539778.3.579.2. 462 Unknown [id number] 2.16.840.1.184125.3.579.2. 462 Unknown [id number] 2.16840.1.036670.3.579.2. 462 Unknown [id number] 2.16840.1.601634.3.579.2. 462 Unknown [id number] 2.16840.1.779137.3.579.2. 462 Social History Date Type Detail Facility Start: 07-16-2021 End: 10-27-2023 Tobacco smoking status MEIS Unknown if ever smoked [facility] Start: 1950 Sex Assigned At Female C [facility] Start: 04-27-2018 End: 07-30-2022 Tobacco smoking status MEIS Never smoked tobacco [facility] Work Phone: Start: 04-27-2018 End: 07-30-2022 Tobacco use and exposure Smokeless tobacco non-user [facility] Work Phone: Start: 07-30-2022 End: 01-24-2025 Alcohol intake Ex-drinker (finding) [facility] Start: 07-30-2022 History SDOH Alcohol Std Drinks 0 [facility] Start: 07-30-2022 History SDOH Social Connections Phone 5 [facility] Start: 07-30-2022 History SDOH Social Connections Religion 3 [facility] Start: 07-30-2022 History SDOH Social Connections Membership 2 [facility] Start: 07-30-2022 History SDOK Social Connections Meetings 1 [facility] Start: 11-18-2022 End: 12-10-2022 Alcohol intake Lifetime non-drinker (finding) [facility] Start: 1950 Sex Assigned At Not on file [facility] Start: 11-08-2022 End: 12-22-2022 Exposure to SARS-CoV-2 (event) Not sure [facility] Start: 07-30-2022 End: 12-30-2022 History of Social function [facility] Start: 07-30-2022 End: 12-30-2022 Social connection and isolation panel [facility] Do you belong to any clubs or organizations such as congregation groups, unions, fraternal or athletic groups, or school groups? No [facility] Are you now , , , , never or living with a partner? [facility] Frequency of Alcohol Consumption Not on file [facility] Do you feel stress - tense, restless, nervous, or anxious, or unable to sleep at night because your mind is troubled all the time - these days [OSQ] Not at all [facility] (I/We) worried whejose luis er (my/our) food would run out before (I/we) got money to buy more. Never true [facility] Start: 05-02-2020 Gender identity Identifies as female gender (finding) [facility] Start: 05-02-2020 Sexual orientation Heterosexual (jessee cain) [facility] How often to you hav e a drink containing alcohol? Never [facility] Start: 10-19-2024 End: 11-04-2024 Sex Female (finding) [facility] NEGATED: Highlighted row Not [facility] Medical Equipment Procedure Code Equipment Code Equipment Original Text Equipment Identifier Dates [id number], [id number], [id number], [id number], [id number], [id number] Start: 12-07-2022 End: 12-06-2024 Comment on above: Monitor blood sugar daily and as needed. 1 Strip before meals and at bedtime. Use as instructed 1 Each once daily. Bare-metal carotid artery stent ()[id number] [facility] Start: 01-25-2024 Functional Status Date Assessment Result Facility 09-29-2024 Are you deaf, or do you have serious difficulty hearing No 09/29/2024 3:17 PM Migdalia Melton RN No [facility] 09-29-2024 Are you blind, or do you have serious difficulty seeing, even when wearing glasses No 09/29/2024 3:17 PM Migdalia Melton RN No [facility] 09-29-2024 Do you have serious difficulty walking or climbing stairs No 09/29/2024 3:17 PM Migdalia Melton RN No [facility] 09-29-2024 Do you have difficul ty dressing or bathing No 09/29/2024 3:17 PM Migdalia Melton, EBER No [facility] 09-29-2024 Because of a physica l, mental, or emotional condition, do you have difficulty doing errands alone such as visiting a physician's office or shopping No 09/29/2024 3:17 PM Migdalia Melton RN No [facility] Mental Status Date Assessment Result Facility 09-29-2024 Because of a physica l, mental, or emotional condition, do you have serious difficulty concentrating, remembering, or making decisions No 09/29/2024 3:17 PM Migdalia Melton RN No [facility] 01-04-2023 Cognitive function Level Of Cons ciousness Awake;Alert;Appropriate [facility] Work Phone: 10-08-2022 Cognitive function Level Of Cons ciousness Awake;Alert;Appropriate;Fol lows Commands [facility] Work Phone: Clinical Notes 03-06-2022 to 01-31-2025 Telephone Encounter - Ramos Solis LPN - 01/31/2025 1:12 PM EDTTelephone Encounter - Ramos Solis LPN - 01/31/2025 1:12 PM EDTTelephone Encounter - Spring Shipley LPN - 01/25/2025 8:57 AM EDT Note Date & Type Note Facility 01-31-2025 Telephone encounter Note Message left for patient to phone office at earliest convenience in regards to results. Ramos Solis LPN January 31, 2025 1:12 PM [facility] 01-31-2025 Telephone encounter Note ----- Message from Kali Bacon MD sent at 01/31/2025 1:07 PM EDT ----- Check to see if she is taking magnesium. If not she needs to. If she is double it to twice a day. Recheck in 1 week, not 3 days [facility] 01-31-2025 Miscellaneous Notes Message left for patient to phone office at earliest convenience in regards to results. Ramos Solis LPN January 31, 2025 1:12 PM ----- Message from Kali Bacon MD sent at 01/31/2025 1:07 PM EDT ----- Check to see if she is taking magnesium. If not she needs to. If she is double it to twice a day. Recheck in 1 week, not 3 days documented in this encounter [facility] 01-31-2025 Note [facility] Medical Records Department [address] [place] [address] History Physical Exam 01/31/25 0715 MR#: [id number] Acct: [id number] Name: JANESSA BARON Rep #: [id number] : 1950 74 From: Dominic Issa MD PCP: Dr. Kali Bacon MD Status:ADM IN Location: [facility] History and Physical Date of Admission: 01/31/25 MR#: [id number] Acct: [id number] Name: JANESSA BARON Rep #: [id number] : 1950 Provider: Dr. Dominic Issa MD Age/Sex: 74/F Location: [facility] Status: Signed Intake Vital Signs 12/25/2514:40 Height 5 ft 3 in Intake Visit Reasons: lumbar spine Chief Complaint: pre-op Accompanied by: Allergies doxycycline Allergy (Mild, Verified 01/26/25 12:55) unknownsulfamethoxazole (From Bactrim) Allergy (Mild, Verified 01/26/25 12:55) unknowntrimethoprim (From Bactrim) Allergy (Mild, Verified 01/26/25 12:55) unknownamoxicillin (From Augmentin) Allergy (Verified 01/26/25 12:55) Hivescefprozil (From Cefzil) Allergy (Verified 01/26/25 12:55) Hivesclavulanic acid (From Augmentin) Allergy (Verified 01/26/25 12:55) Hivesdextromethorphan (From NyQuil) Allergy (Verified 01/26/25 12:55) Hivesdoxylamine (From NyQuil) Allergy (Verified 01/26/25 12:55) Hiveserythromycin base Allergy (Verified 01/26/25 12:55) Hivesgatifloxacin (From Tequin) Allergy (Verified 01/26/25 12:55) Hiveslincomycin Allergy (Verified 01/26/25 12:55) Hivesmetoclopramide (From Reglan) Allergy (Verified 01/26/25 12:55) Otherpseudoephedrine (From NyQuil) Allergy (Verified 01/26/25 12:55) Hivesempagliflozin (From Jardiance) Adverse Reaction (Severe, Verified 01/26/25 12:55) UTI/sepsismorphine Adverse Reaction (Intermediate, Verified 01/26/25 12:55) tachycardia Medications ???Medication ???Instructions ???Recorded ???Confirmed ???Type montelukast 10 mg tablet 10 mg PO QHS ASTHMA 05/21/16 01/26/25 History cetirizine 10 mg capsule (Zyrtec) 5 mg PO DAILY allergy symptoms 05/18/18 01/26/25 H istory Al hyd-Mg tr-alg ac-sod bicarb 80 1 tab PO DAILY PRN GAS 05/22/19 01/26/25 History mg-14.2 mg chewable tablet (Gaviscon) metformin 1,000 mg 24 hr 1,000 mg PO BID DIABETES 05/22/19 01/26/25 History tablet,extended release (gastric reten.) albuterol sulfate 90 mcg/actuation 2 puff inhalation Q6H PRN 11/04/22 01/26/25 Histor y aerosol inhaler Shortness Of Breath Or Wheezing aspirin 81 mg tablet,delayed 81 mg PO DAILY HEART HEALTH 12/21/22 01/26/25 Hist ory release (Adult Low Dose Aspirin) tramadol 50 mg tablet 50 mg PO 4X/DAY Pain 01/04/23 01/26/25 History glimepiride 4 mg tablet (Amaryl) 4 mg PO DAILY DIABETES 03/11/23 01/26/25 History rosuvastatin 10 mg tablet (Crestor) 10 mg PO QHS HLD 09/17/23 01/26/25 History omeprazole 40 mg capsule,delayed 40 mg PO BID GERD 10/12/23 01/26/25 History release pioglitazone 45 mg tablet (Actos) 45 mg PO DAILY DIABETES 01/11/24 01/26/25 History lisinopril 20 1 tab PO DAILY htn 01/25/24 01/26/25 History mg-hydrochlorothiazide 12.5 mg tablet triamcinolone acetonide 0.1 % 1 applic topical QDAY PRN SKIN 05/03/24 01/26/25 H istory topical cream ipratropium 0.5 mg-albuterol 3 mg 3 ml inhalation Q20M PRN shortness 08/29/24 History (2.5 mg base)/3 mL nebulization of breath or wheez ing soln nystatin 100,000 unit/gram topical 1 applic topical TID PRN YEAST 09/18/24 01/26/25 R x powder (Nystop) INFECTION #15 mg sitagliptin phosphate 100 mg 100 mg PO QDAY diabetic 10/25/24 01/26/25 History tablet (Januvia) acetaminophen 500 mg tablet 1,000 mg PO TID PRN pain 01/17/25 01/26/25 History (Tylenol Extra Strength) calcium carb-ergocalciferol (vit 2 tab PO BID supplement 01/17/25 01/26/25 History D2) 500 mg (1,250 mg)-200 unit tablet multivitamin with minerals-folic 1 tab PO DAILY supplement 01/17/25 01/26/25 Histor y acid 120 mcg chewable tablet (Adult Multivitamin [...] Hyperlipidemia Hypertension Diabetes Asthma Arthritis Surgical History (Reviewe (more content not included)... [facility] 01-29-2025 Telephone encounter Note Patient notified of result information on My Chart. Notification will be sent to this nurse if message has not been read within 2 days. Patient will be contacted by another form of communication if notification of not reading My Chart message is received. Ramos Solis LPN January 29, 2025 8:39 AM [facility] 01-29-2025 Miscellaneous Notes Patient notified of [...] Modules accepted: Orders documented in this encounter [facility] 01-29-2025 Telephone encounter Note ----- Message from Kali Bacon MD sent at 01/29/2025 8:11 AM EDT ----- Mg low. Restart mg. recheck in 1w [facility] 01-29-2025 Note Addended by: KALI BACON on: 01/29/2025 08:11 AM Modules accepted: Orders [facility] 01-25-2025 Telephone encounter Note Last Office Visit: 01-24-2025 Next Scheduled Office Visit: 07-30-2025 Requested Prescriptions Pending Prescriptions Disp Refills omeprazole (PRILOSEC) 40 mg capsule [Pharmacy Med Name: omeprazole 40 mg capsule,delayed release] 180 capsule 3 Sig: TAKE 1 CAPSULE TWICE DAILY Spring Shipley LPN January 25, 2025 8:58 AM [facility] 01-25-2025 Miscellaneous Notes Last Office Visit: 01-24-2025 Next Scheduled Office Visit: 07-30-2025 Requested Prescriptions Pending Prescriptions Disp Refills omeprazole (PRILOSEC) 40 mg capsule [Pharmacy Med Name: omeprazole 40 mg capsule,delayed release] 180 capsule 3 Sig: TAKE 1 CAPSULE TWICE DAILY Spring Shipley LPN January 25, 2025 8:58 AM documented in this encounter [facility] 01-24-2025 Note HNO ID: [id number] Author: KALI BACON MD Service: ? Author [...] neurological symptoms. - No known history of NM. - Followed by cardiology; last visit was [...] Lincomycin Rash Pseudoephedrine Hives Reglan [Metoclopram* Intolerance Godwfqz-Ksq-Uet Red* Unknown Other reaction(s): Other Tequin [Gatifloxaci* [...] RASH IS FLA (more content not included)... [facility] 01-24-2025 History of Presen t illness Narrative [...] neurological symptoms. - No known history of NM. - Followed by cardiology; last visit was [...] Lincomycin Rash Pseudoephedrine Hives Reglan [Metoclopram* Intolerance Fckoblw-Uvu-Vxs Red* Unknown Other reaction(s): Other Tequin [Gatifloxaci* [...] a day with meals. blood sugar diagnostic ([employer] ULTRA TEST) test strip Monitor blood sugar [...] 1 Dose once daily. blood sugar diagnostic (ONETOUCH ULTRA [...] days before discontinuation. - Prescription sent to [facility]. - Educated patient on potential side effects [...] or dyspnea. - Under regular follow-up with stars coordinator Dr. Minor; recent evaluation deemed stable. 5. [...] inconvenience. Kali Bacon MD 01/24/2025 Recording using [employer] software for draft documentation of the visit was discussed with the patient/authorized school admissions representative; all questions welcomed and answered. Patient/authorized school admissions representative agreed to proceed Patient is in office for pre surgical clearance. Patient is having 360 Lumbar fusion L4-L5 on 01-31-2025. Physician performing procedure is [facility]. Magnesium low at 0.9 per labs completed 01-22-2025 by surgeon Spring Shipley LPN January 24, 2025 2:03 PM documented in this encounter [facility] 01-24-2025 Note HNO ID: [id number] Author: SPRING SHIPLEY LPN Service: ? Author Type: LICENSED NURSE Type: Progress Notes Filed: 01/24/2025 14:53 Note Text: Patient is in office for pre surgical clearance. Patient is having 360 Lumbar fusion L4-L5 on 01-31-2025. Physician performing procedure is [facility]. Magnesium low at 0.9 per labs completed 01-22-2025 by surgeon Spring Shipley LPN January 24, 2025 2:[address] [facility] 12-26-2024 Telephone encounter Note Patients phoned office requesting that patient be placed on Calcium with vitamin D per Dr. Issa with ortho. This nurse advised for Dr. Issa to fax our office the results of testing that indicated that patient is going to need this medication. This nurse provided fax number to Spring Shipley LPN December 26, 2024 4:25 PM [facility] 12-26-2024 Miscellaneous Notes Patients phoned office [...] 2024 4:25 PM documented in this encounter [facility] 12-26-2024 Note HNO ID: [id number] Author: PATITO MCKEON LPN Service: ? Author [...] immediate adverse reactions noted. Patito Mckeon LPN [facility] 12-26-2024 History of Presen t [...] Patito Mckeon LPN documented in this encounter [facility] 12-06-2024 Telephone encounter Note Patient's Rody called requesting the following refill. Requested Prescriptions Pending Prescriptions Disp Refills lancets (ONE TOUCH DELICA) 33 gauge 100 each 3 Si each once daily. Patient last appointment: 11/20/2024 Next appointment 01/24/2025 Patient Phone numbers: [phone] (home) [phone] (work) Request is for script(s) to be escript to [facility] pharmacy. Ewa Mclain LPN [facility] 12-06-2024 Miscellaneous Notes Patient's Rody called requesting the following refill. Requested Prescriptions Pending Prescriptions Disp Refills lancets (ONE TOUCH DELICA) 33 gauge 100 each 3 Si each once daily. Patient last appointment: 11/20/2024 Next appointment 01/24/2025 Patient Phone numbers: [phone] (home) [phone] (work) Request is for script(s) to be escript to [facility] pharmacy. Ewa Mclain LPN documented in this encounter [facility] 11-30-2024 Telephone encounter Note Pt. Will continue coming in for her B-12 injections as directed. Patito Mckeon LPN [facility] 11-30-2024 Miscellaneous Notes Pt. Will continue [...] Rx sent to her pharmacy. Fanny Barron APRN.LAST SAWYER Patient called stating that she had B12 [...] scheduled with patient. documented in this encounter [facility] 11-28-2024 Note HNO ID: [id number] Author: PATITO MCKEON LPN Service: ? Author [...] immediate adverse reactions noted. Patito Mckeon LPN [facility] 11-28-2024 History of Presen t [...] Patito Mckeon LPN documented in this encounter [facility] 11-27-2024 Telephone encounter Note Left message with pts. to have pt contact office concerning B-12 injections. Patito Mckeon LPN [facility] 11-27-2024 Telephone encounter Note Returned call to patient. No answer. LVM to return call to office. Reaction to b12 injection is usual. Her B12 was very low (<150) so I would prefer to continue however since she has now received 3 doses would be OK with proceeding with just PO 1,000mcg daily. Rx sent to her pharmacy. Fanny Barron APRN.LAST SAWYER [facility] 11-21-2024 Note HNO ID: [id number] Author: ANA DAWN LPN Service: ? Author Type: LICENSED NURSE Type: Progress Notes Filed: 11/21/2024 16:04 Note Text: Patient here for injection of B12. Given IM in left delt. Patient tolerated well. Ana Dawn LPN [facility] 11-21-2024 History of Presen t illness Narrative Patient here for injection of B12. Given IM in left delt. Patient tolerated well. Ana Dawn LPN documented in this encounter [facility] 11-21-2024 Telephone encounter Note Patient called stating that she had B12 injection last week and felt nauseas and dizzy. She had another today and states she is feeling the same way. She is asking if there is something she should do or continue injections. Please advise. [facility] Work Phone: 11-21-2024 Telephone encounter Note 11/05 AVS was updated on 11/07. Found notes this afternoon when checking how often QMO B12 would be given. weekly b12 x4 followed by monthly x2 - check labs 3 months OV with labs in 3 months, CBC, iron studies, b12, copper, zinc added to AVS on 11/07 and have been scheduled with patient. [facility] 11-21-2024 Telephone encounter Note Patient notified of result information on My Chart. Notification will be sent to this nurse if message has not been read within 2 days. Patient will be contacted by another form of communication if notification of not reading My Chart message is received. Spring Shipley LPN November 21, 2024 8:59 AM [facility] 11-21-2024 Miscellaneous Notes Patient notified of [...] Negative for fracture. documented in this encounter [facility] 11-21-2024 Telephone encounter Note ----- Message from Kali Bacon MD sent at 11/20/2024 5:46 PM EDT ----- Negative for fracture. [facility] 11-20-2024 History of Presen t illness [...] PATIENT PRESENTS WITH AN IMPLANTABLE OR ATTACHED HEAD OF OPERATION AND LOGISTICS: No RADIOLOGY DEPARTMENT: General X-ray: Exam(s) Completed: Upper Extremity X-Ray(s): Humerus, right PERIPHERAL IV DATA: Not applicable SIGNED BY: RT Lory(Jami) November 20, 2024 5:04 PM documented in this encounter [facility] 11-20-2024 Note HNO ID: [id number] Author: SUDARSHAN BOOTH RT(Jami) Service: ? Author Type: Technologist Type: Progress [...] PATIENT PRESENTS WITH AN IMPLANTABLE OR ATTACHED HEAD OF OPERATION AND LOGISTICS: No RADIOLOGY DEPARTMENT: General X-ray: Exam(s) Completed: Upper Extremity X-Ray(s): Humerus, right PERIPHERAL IV DATA: Not applicable SIGNED BY: Sudarshan Booth, (R) November 20, 2024 5:[address] [facility] 11-20-2024 Note HNO ID: [id number] Author: KALI BACON MD Service: ? Author Type: Physician Type: Progress Notes Filed: 11/20/2024 16:31 Note Text: Pvael Maradiaga is a 74-year-old female with a [...] scheduled for the . 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 Review of Systems GENERAL: Positive [...] Lincomycin Rash Pseudoephedrine Hives Reglan [Metoclopram* Intolerance Jlbtseo-Ldi-Leh Red* Unknown Other reaction(s): Other Tequin [Gatifloxaci* [...] daily. albuterol (P (more content not included)... [facility] 11-20-2024 History of Presen t illness Narrative [...] scheduled for the . 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 Review of Systems GENERAL: Positive [...] Lincomycin Rash Pseudoephedrine Hives Reglan [Metoclopram* Intolerance Xftgoxo-Mhw-Uik Red* Unknown Other reaction(s): Other Tequin [Gatifloxaci* [...] a day with meals. blood sugar diagnostic (WaveTech EnginesTOUCH ULTRA TEST) test strip Monitor blood sugar [...] strain of right upper arm, initial encounter (S46.321A) - Onset of pain approximately 3 weeks [...] decreased absorption from chronic omeprazole use. - Chart Calculator has initiated B12 injections; next injection scheduled for tomorrow, followed by another next week. - MCV is 82.5 fL, RDW is elevated at 22.8%. - Iron levels have improved following five infusions. - Discussed dietary intake and absorption issues; no dietary changes reported. - Will monitor response to B12 supplementation. Kali Bacon MD 11/20/2024 The patient consented to the use of [employer] software for draft documentation of the visit consistent with [facility] s Notice of Privacy Practices. Patient is in office with complaint of increased right arm pain. Patient states that arm has been hurting for a few weeks. Denies injury. No refills needed Spring Shipley LPN November 20, 2024 4:10 PM documented in this encounter [facility] 11-20-2024 Note HNO ID: [id number] Author: SPRING SHIPLEY LPN Service: ? Author Type: LICENSED NURSE Type: Progress Notes Filed: 11/20/2024 16:31 Note Text: Patient is in office with complaint of increased right arm pain. Patient states that arm has been hurting for a few weeks. Denies injury. No refills needed Spring Shipley LPN November 20, 2024 4:[address] [facility] 11-15-2024 Attending History and physical note UPDATED HISTORY AND PHYSICAL EXAMINATION SERVICE DATE: 11/15/2024 SERVICE TIME: 12:56 Participation of a fellow, resident, medical student, or advanced practice provider student in performing the sensitive examination was discussed with the patient or authorized school admissions representative. The patient or authorized school admissions representative has agreed to proceed with the [...] PHYSICIAN: Fanny Barron [address] [facility] [address] CHIEF COMPLAINT: Patient presents with: colon consult [...] colonoscopy was 04/[address] Edgar at [facility]. Sedation:Fentanyl 100 micrograms IV, Midazolam 5 mg IV Impression: - The entire examined colon is normal. Biopsied. Last EGD was at [facility] with Dr. Arredondo 01/2023. Sedation: MAC Impression: [...] a day with meals. blood sugar diagnostic ([employer]Maven ULTRA TEST) test strip Monitor blood sugar [...] 1 Dose once daily. lancets (ONE TOUCH DELBureaux A Partager) 33 gauge 1 Each once daily. blood sugar diagnostic (WaveTech EnginesTOUCH ULTRA TEST) test strip 1 Strip before [...] Dye [Iodine], Lincomycin, Pseudoephedrine, Reglan [Metoclopramide Hcl], Ksqjcxp-Ajo-Zoh Reductase Inhibitors, Tequin [Gatifloxacin], and Doxycycline PAST [...] edited and updated as necessary. Halie Jin APRN.LAST SAWYER [facility] Work Phone: 11-15-2024 History and physical note HISTORY AND PHYSICAL Janessa Baron : 1950 REFERRING PHYSICIAN: Fanny Barron [address] [facility] [address] CHIEF COMPLAINT: Patient presents with: colon consult [...] colonoscopy was 04/[address] Edgar at [facility]. Sedation:Fentanyl 100 micrograms IV, Midazolam 5 mg IV Impression: - The entire examined colon is normal. Biopsied. Last EGD was at [facility] with Dr. Arredondo 01/2023. Sedation: MAC Impression: [...] 1 Dose once daily. lancets (ONE TOUCH [employer]) 33 gauge 1 Each once daily. blood [...] Dye [Iodine], Lincomycin, Pseudoephedrine, Reglan [Metoclopramide Hcl], Vhsjfnz-Djj-Ymv Reductase Inhibitors, Tequin [Gatifloxacin], and Doxycycline PAST [...] edited and updated as necessary. Halie Jin APRN.LAST SAWYER [facility] 11-15-2024 History and physical note UPDATED HISTORY AND PHYSICAL EXAMINATION SERVICE DATE: 11/15/2024 SERVICE TIME: 12:56 Participation of a fellow, resident, medical student, or advanced practice provider student in performing the sensitive examination was discussed with the patient or authorized school admissions representative. The patient or authorized school admissions representative has agreed to proceed with the [...] PHYSICIAN: Fanny Barron [address] [facility] [address] CHIEF COMPLAINT: Patient presents with: colon consult [...] colonoscopy was 04/[address] Edgar at [facility]. Sedation:Fentanyl 100 micrograms IV, Midazolam 5 mg IV Impression: - The entire examined colon is normal. Biopsied. Last EGD was at [facility] with Dr. Arredondo 01/2023. Sedation: MAC Impression: [...] a day with meals. blood sugar diagnostic (WaveTech EnginesTOUCH ULTRA TEST) test strip Monitor blood sugar [...] 1 Each once daily. blood sugar diagnostic (WaveTech EnginesTOUCH ULTRA TEST) test strip 1 Strip before [...] Dye [Iodine], Lincomycin, Pseudoephedrine, Reglan [Metoclopramide Hcl], Zgpuiqj-Gst-Urn Reductase Inhibitors, Tequin [Gatifloxacin], and Doxycycline PAST [...] edited and updated as necessary. Halie Jin APRN.LAST SAWYER HISTORY AND PHYSICAL Janessa Baron : 1950 REFERRING PHYSICIAN: Fanny Al[address] [facility] [address] CHIEF COMPLAINT: Patient presents with: colon consult [...] colonoscopy was 04/[address] Edgar at [facility]. Sedation:Fentanyl 100 micrograms IV, Midazolam 5 mg IV Impression: - The entire examined colon is normal. Biopsied. Last EGD was at [facility] with Dr. Arredondo 01/2023. Sedation: MAC Impression: [...] a day with meals. blood sugar diagnostic (WaveTech EnginesTOUCH ULTRA TEST) test strip Monitor blood sugar [...] 1 Dose once daily. lancets (ONE TOUCH DELBureaux A Partager) 33 gauge 1 Each once daily. blood sugar diagnostic (WaveTech EnginesTOUCH ULTRA TEST) test strip 1 Strip before [...] Dye [Iodine], Lincomycin, Pseudoephedrine, Reglan [Metoclopramide Hcl], Lcajmzj-Qkb-Epn Reductase Inhibitors, Tequin [Gatifloxacin], and Doxycycline PAST [...] edited and updated as necessary. Halie Jin APRN.LAST SAWYER documented in this encounter [facility] 11-14-2024 Note HNO ID: [id number] Author: PATITO MCKEON LPN Service: ? Author [...] immediate adverse reactions noted. Patito Mckeon LPN [facility] 11-14-2024 History of Presen t [...] Patito Mckeon LPN documented in this encounter [facility] 11-08-2024 Telephone encounter Note Left message with patient today. Also sent my my chart to confirm colonoscopy procedure date & bowel prep instructions with my phone number [phone]. [facility] 11-08-2024 Miscellaneous Notes Left message with patient today. Also sent my my chart to confirm colonoscopy procedure date & bowel prep instructions with my phone number [phone]. documented in this encounter [facility] 11-06-2024 Note HNO ID: [id number] Author: PATITO MCKEON LPN Service: ? Author Type: LICENSED NURSE Type: Progress Notes Filed: 11/07/2024 11:28 Note Text: cyanocoblamin injection administered, left Deltoid,tolerated well, no immediate adverse reactions noted. Patito Mckeon LPN [facility] 11-06-2024 History of Presen t [...] She was taking her to appt at [facility] and collapse outside hospital. Spent 5 [...] Lincomycin Rash Pseudoephedrine Hives Reglan [Metoclopram* Intolerance Rmjhffy-Hck-Rnr Red* Unknown Other reaction(s): Other Tequin [Gatifloxaci* [...] OV with labs in 3 months. Fanny Barron, PATRICIA.LAST SAWYER I spent a total of 30 minutes on the date of the service which included preparing to see the patient, xdpn-gb-htpu patient care, completing clinical documentation, obtaining and/or [...] of this patient. documented in this encounter [facility] 11-06-2024 Note HNO ID: [id number] Author: FANNY BARRON, ? Service: ? Author [...] She was taking her to appt at [facility] and collapse outside hospital. Spent 5 [...] powder APPLY TO (more content not included)... [facility] 10-25-2024 Evaluation note Diagnosis Onset Date Resolution Vulvar atrophy acute October 8:03am Carotid stenosis, left acute Ap ril 2024 1:11pm History of coronary artery bypass graft x 3 November, acute November 28, 2024 1:11pm Hyperlipidemia acute November 1:11pm Postoperative atrial fibrillation acute November 28, 2024 1:11pm HTN (hypertension) chronic November 28, 2024 1:11pm Osteoporosis acute December 25 3:16pm Spinal stenosis of lumbar region with neurogenic claudication acute December 3:16pm Spondylolisthesis of lumbar region acute December 25, 2024 3:16pm [facility] Work Phone: 1(338) 447-266603-11-2025 NoteHNO ID: [id number] Author: LOVELY POLK RN Service: ? Author Type: Registered Nurse Type: Progress Notes Filed: 10/24/2024 14:09 Note Text: Unable to make contact Provider Action/FYI Patient identified by name and date of : YES An attempt was made to contact: Patient Was a voicemail left? Yes including my name, role, and return number Outreach Plan: Follow up call needed:No [facility] History of Present illness Narrative* Lovely Polk RN - 10/24/2024 2:08 PM EDT Unable to make contact Provider Action/FYMarleni Patient identified by name and date of : YES An attempt was made to contact: Patient Was a voicemail left? Yes including my name, role, and return number Outreach Plan: Follow up call needed:No Lovely Polk RN [facility] NotePatient Outreach (MRCAC) JANESSA BARON ([id number]) 1950 F Date Time Provider Department 10/24/24 LOVELY POLK [facility] During your visit today, we recorded the following information about you: Lovely Polk RN 10/24/2024 2:09 PM Signed Unable to [...] REGLAN (METOCLOPRAMIDE HCL) 04/27/2018 5 - Intolerance RHZXMLE-GYY-PRS REDUCTASE INHIBIT*01/31/2017 16 - Unknown Comments: Other [...] Spinal stenosis [M48.00] 11 (more content not included)...[facility] 10-17-2024 NoteHNO ID: [id number] Author: LOVELY POLK RN Service: ? Author Type: Registered Nurse Type: Progress Notes Filed: 10/17/2024 14:53 Note Text: Unable to make contact Provider Action/FYI Patient identified by name and date of : YES An attempt was made to contact: Patient Was a voicemail left? No unable to leave a voicemail Outreach Plan: Follow up call needed:Yes [facility]ely Pol[facility] History of Present illness Narrative* Lovely Polk RN - 10/17/2024 2:53 PM EST Unable to make contact Provider Action/FYI Patient identified by name and date of : YES An attempt was made to contact: Patient Was a voicemail left? No unable to leave a voicemail Outreach Plan: Follow up call needed:Yes Lovely Polk RN [facility] NotePatient Outreach (MRCAC) LORAINEJANESSA ([id number]) 1950 F Date Time Provider Department 10/17/24 [...] REGLAN (METOCLOPRAMIDE HCL) 04/27/2018 5 - Intolerance RSDVGHH-ULR-ZXM REDUCTASE INHIBIT*01/31/2017 16 - Unknown Comments: Other [...] day with meals. - blood sugar diagnostic (NewsMaven ULTRA TEST) test strip Monitor blood sugar [...] Each once daily. - blood sugar diagnostic (WaveTech EnginesTOUCH ULTRA TEST) test strip 1 Strip before [...] stenosis [M48.00] 06/24/2020 Aortic (more content not included)...[facility]02-25-2025 NoteHNO ID: [id number] Author: LOVELY POLK RN Service: ? Author Type: Registered Nurse Type: Progress Notes Filed: 10/10/2024 13:43 Note Text: TRANSITION CARE MANAGEMENT (TCM) FOLLOW-UP NOTE Provider Action/FYI Patient identified by name and date of : YES Spoke to NO ANSWER. Left Message Discharge Network Status: In-Network Discharge Summary: TCM weekly call. No answer. Left message. Concerns: None Telephone Service Representative plan for next outreach: Will follow up Next week [employer] Ordered -: No Lovely Polk RN October 10, 2024 1:42 PM[facility] History of Present illness Narrative* Lovely Polk RN - 10/10/2024 1:41 PM EST TRANSITION CARE MANAGEMENT (TCM) FOLLOW-UP NOTE Provider Action/FYI Patient identified by name and date of : YES Spoke to NO ANSWER. Left Message Discharge Network Status: In-Network Discharge Summary: TCM weekly call. No answer. Left message. Concerns: None Telephone Service Representative plan for next outreach: Will follow up Next week [employer] Ordered -: No Lovely Polk RN October 10, 2024 1:42 PM [facility] Telephone encounter Note * Telephone Encounter - Jodie Cuba MA - 10/10/2024 7:37 AM EST Patient given results and verbalized understanding of instructions given. Jodie Cuba MA [facility]02-25-2025 Miscellaneous Notes* Telephone Encounter - Jodie [...] her once this returns [facility] Telephone encounter Note * Telephone Encounter - Mike Chanel PA - 10/10/2024 7:14 AM EST Please let patient know she is negative for yeast, BV, trichomonas. We are still waiting urine culture and we will contact her once this returns [facility] Work Phone: 1(426) 813-417602-25-2025 NotePatient Outreach (MRCAC) JANESSA BARON ([id number]) 1950 F Date Time Provider Department 10/10/24 LOVELY POLK [facility] During your visit today, we recorded the following information about you: Lovely Polk RN 10/10/2024 1:43 PM Signed TRANSITION CARE MANAGEMENT (TCM) FOLLOW-UP NOTE Provider Action/FYI Patient identified by name and date of : YES Spoke to NO ANSWER. Left Message Discharge Network Status: In-Network Discharge Summary: TCM weekly call. No answer. Left message. Concerns: None Telephone Service Representative plan for next outreach: Will follow up [...] REGLAN (METOCLOPRAMIDE HCL) 04/27/2018 5 - Intolerance GIOBRPY-ZIO-MGC REDUCTASE INHIBIT*01/31/2017 16 - Unknown Comments: Other [...] complication, *05/22/2022 Allergic rhinitis (more content not included)...[facility]02-24-2025 NoteHNO ID: [id number] Author: CHULA VALENTINE APRN.LAST SAWYER Service: ? Author Type: Nurse Practitioner Type: [...] Dye [Iodine], Lincomycin, Pseudoephedrine, Reglan [Metoclopramide Hcl], Oobsolb-Wph-Duy Reductase Inhibitors, Tequin [Gatifloxacin], and Doxycycline MEDICATIONS [...] daily for 10 days. (more content not included)...[facility]02-24-2025 History of Present illness Narrative* Chula Valentine APRN.[facility] - 10/09/2024 11:05 AM EST CC: Patient [...] [Iodine], Lincomycin, Pseudoephedrine, Reglan [Metoclopr amide Hcl], Wsmoizk-Ufm-Tdh Reductase Inhibitors, Tequin [Gatifloxacin], and Doxycycline MEDICATIONS [...] to treatment plan. Isabela Taylor TEACHING PROVIDER (Physician/PA/MANAGER TRUCK) NOTE OF PERSONAL INVOLVEMENT IN CARE: I have personally seen and examined the patient and performed the medical decision-making components. I have reviewed the Advanced Practice Registered Nurse (MANAGER TRUCK) Student's documentation and verified the findings in the note as written. Any additions or changes are noted in bold/italics. Signature: Chula Valentine Date: 10/09/2024 Time: 11:53 AM documented in [facility] encounter[facility]-2025 NoteHNO ID: [id number] Author: LOVELY POLK RN Service: ? Author [...] when she became ill. Reports was at [employer] provider the week before, urine test was [...] business days post-discharge SUMMARY: -Pt discharged from [facility] on 09/29. -Follow up appointment on 10/02. -Medication review done yes. -Admitted for: Pyelonephritis CONCERNS: As above NEW MEDICATIONS: Cipro Atarax Monistat Mirilax Sennakot MEDS HELD/DISCONTINUED: Jardiance BRIEF HOSPITAL COURSE: Janessa Baron is a 74 year old female h/o chronic low back pain, HTN, CAD s/p CABG x 3 (11/2022), type 2 DM, carotid artery stenosis s/p stent, fibromyalgia.Apparently her had an appointment at [facility] and she accompanied him in car. After prolonged waiting in car, when she was getting out of car, felt lightheaded at which point she was helped by her and [facility] staff. Since patient continued to feel unwell, presented to ED. Lovely Polk RN[facility] History of Present illness Narrative* Lovely Polk [...] when she became ill. Reports was at [facility] provider the week before, urine test was [...] business days post-discharge SUMMARY: -Pt discharged from [facility] on 09/29. -Follow up appointment on 10/02. -Medication review done yes. -Admitted for: Pyelonephritis CONCERNS: As above NEW MEDICATIONS: Cipro Atarax Monistat Mirilax Sennakot MEDS HELD/DISCONTINUED: Arlin BRIEF [facility] COURSE: Janessa Baron is a 74 year old female h/o chronic low back pain, HTN, CAD s/p CABG x 3 (11/2022), type 2 DM, carotid artery stenosis s/p stent, fibromyalgia.Apparently her had an appointment at [facility] and she accompanied him in car. After prolonged waiting in car, josh was getting out of car, felt lightheaded at which point she was helped by her and [facility] staff. Since patient continued to feel unwell, presented to ED. Lovely Polk RN documented in this encounter[facility]02-18-2025 NoteHNO ID: [id number] Author: LOVELY POLK RN Service: ? Author [...] Plan: Follow up call needed:Yes Lovely Polk RNSt. [facility] History of Present illness Narrative* Lovely Polk [...] needed:Yes Lovely Polk RN documented in this encounter[facility]02-[facility]-2025 NotePatient Outreach (MRCAC) JANESSA BARON ([id number]) 1950 F Date Time Provider Department 10/03/24 [...] REGLAN (METOCLOPRAMIDE HCL) 04/27/2018 5 - Intolerance OXHKJWA-MFC-LEE REDUCTASE INHIBIT*01/31/2017 16 - Unknown Comments: Other [...] 2 diabetes mellitus wi (more content not included)...[facility] 10-03-2024 NotePatient Outreach ([facility] JANESSA BARON ([id number]) 1950 F Date Time Provider Department 10/03/24 LOVELY POLK MRCAC During your visit today, we recorded the following information about you: Lovely Polk RN 10/03/2024 2:03 PM Signed TRANSITION CARE MANAGEMENT (TCM) INITIAL CONTACT Provider Action/FYI: TCM initial call. Enrolled. Pt reports she is ok Still tired. Taking an antibiotic. Is taking in extra fluids. Appetite is fair. Had PCP follow up appt yesterday, 10/02. Pt is concerned that she had no idea that she had a UTI when she became ill. Reports was at [facility] provider the week before, urine test was [...] business days post-discharge SUMMARY: -Pt discharged from [facility] on 09/29. -Follow up appointment on 10/02. [...] stent, fibromyalgia.Apparently her had an appointment at [facility] and she accompanied him in car. [...] REGLAN (METOCLOPRAMIDE HCL) 04/27/2018 5 - Intolerance TYUNXJU-XXN-XTA REDUCTASE INHIBIT*01/31/2017 16 - Unknown Comments: Other [...] day with meals. - blood sugar diagnostic (WaveTech EnginesTOUCH ULTRA TEST) test strip Monitor blood sugar daily and as needed. - montelukast (SINGULAIR) 10 mg tablet Take 1 tablet by mouth daily at bedtime. - omeprazole (PRILOSEC) 40 mg capsule Take 1 capsule by mouth two times a day. - pioglitazone (ACTOS) 45 mg tablet Take 1 (more content not included)...[facility]02-17-2025 NoteHNO ID: [id number] Author: KALI BACON MD Service: ? Author Type: Physician Type: Progress Notes Filed: 10/02/2024 14:48 Note Text: Subjective Janessa Baron is a 74 year old female. Patient was also recent in [facility] from 09-25-2024 to 09-29-2024 for Pyelonephritis. In [...] Lincomycin Rash Pseudoephedrine Hives Reglan [Metoclopram* Intolerance Rupfmgb-Rje-Yhx Red* Unknown Other reaction(s): Other Tequin [Gatifloxaci* [...] at bedtime. metFORMIN (G (more content not included)...[facility]02-17-2025 History of Present illness Narrative* Kali Bacon MD - 10/02/2024 2:40 PM EST Subjective Janessa Baron is a 74 year old female. Patient was also recent in [facility] from 09-25-2024 to 09-29-2024 for Pyelonephritis. In [...] Lincomycin Rash Pseudoephedrine Hives Reglan [Metoclopram* Intolerance Lakkuqa-Hln-Nvs Red* Unknown Other reaction(s): Other Tequin [Gatifloxaci* [...] a day with meals. blood sugar diagnostic (NewsMaven ULTRA TEST) test strip Monitor blood sugar [...] 1 Dose once daily. lancets (ONE TOUCH DELBureaux A Partager) 33 gauge 1 Each once daily. blood sugar diagnostic (WaveTech EnginesTOUCH ULTRA TEST) test strip 1 Strip before [...] Escherichia coli without acute organ dysfunction (HCC) A41.51 Improved. 4. Type 2 diabetes mellitus [...] suture removal. Patient was also recent in [facility] from 09-25-2024 to 09-29-2024 for Pyelonephritis. In [...] 02, 2024 1:01 PM documented in this encounterHenry [facility] Hospital02-17-2025 NoteHNO ID: [id number] Author: SPRING SHIPLEY LPN Service: ? Author Type: LICENSED NURSE Type: Progress Notes Filed: 10/02/2024 14:48 Note Text: Patient is in office for suture removal. Patient was also recent in [facility] from 09-25-2024 to 09-29-2024 for Pyelonephritis. In [...] Spring Shipley LPN October 02, 2024 1:01 [facility]02-17-2025 NoteHNO ID: [id number] Author: LOVELY POLK RN Service: ? Author [...] Plan: Follow up call needed:Yes Lovely Polk RNSt[facility] History of Present illness Narrative* Lovely Polk [...] needed:Yes Lovely Polk RN documented in this encounterHenry County Hospital02-17-2025 NotePatient Outreach (MRCAC) JANESSA BARON ([id number]) 1950 F Date Time Provider Department 10/02/24 [...] REGLAN (METOCLOPRAMIDE HCL) 04/27/2018 5 - Intolerance LIQIDYP-QGJ-SMS REDUCTASE INHIBIT*01/31/2017 16 - Unknown Comments: Other [...] [J45.909] 03/01/2017 Essential (p (more content not included)...[facility]02-14-2025 Note HNO ID: [id number] Author: AMBAR MONAHAN RPh Service: Pharmacy Author [...] time from discharge medication list. Ambar Monahan [facility] Pager: [phone] 09/29/2024 2:02 PM Medication List START taking [...] Your Medications These medications were sent to [facility] - [place] [address] - [address] - [phone] [address] [place] [address] ciprofloxacin HCl 500 mg tablet hydrOXYzine HCl 25 mg tablet miconazole 2 % vaginal cream polyethylene glycol 3350 17 gram packet senna 8.6 mg [facility]02-14-2025 NoteHNO ID: [id number] Author: BROOKE MULLEN RN Service: Care Management [...] insurance review and accepting agencies/facilities. SIGNATURE: Brooke Mullen RN PATIENT NAME: Janessa Baron DATE: September 29, 2024 TIME: 12:[address] [facility]02-13-2025 NoteHNO ID: [id number] Author: LUDMILA VELAZQUEZ MD Service: General Internal Medicine Author Type: Physician Type: Progress Notes Filed: 09/28/2024 15:11 Note Text: DEPARTMENT OF HOSPITAL MEDICINE PROGRESS NOTE SERVICE DATE: 09/28/2024 SERVICE TIME: 10:35 am Hospital Medicine/Primary Attending: Ludmila Velazquez MD NIGHT AND WEEKEND COVERAGE: [facility]: Days: [phone], please page Ludmila Velazquez for patient issues. Nights: [phone], please page Team GI 4: G/H 8th floor: [address]7591; Non 8th floor [phone] Subjective INTERVAL HPI: Appeared better today. In [...] H PRN sodium chloride 0.65 % 2 [place] 2 [place] EACH NOSTRIL PRN NaCl 0.9% iv infusion [...] Apparently her had an appointment at the [facility] and she accompanied him in the [...] Recommended to discontinue empagliflozin (more content not included)...[facility]02-12-2025 NoteHNO ID: [id number] Author: LUDMILA VELAZQUEZ MD Service: General Internal Medicine Author Type: Physician Type: Progress Notes Filed: 09/27/2024 21:59 Note Text: DEPARTMENT OF HOSPITAL MEDICINE PROGRESS NOTE SERVICE DATE: 09/27/2024 SERVICE TIME: 9:38 PM Hospital Medicine/Primary Attending: Ludmila Velazquez MD NIGHT AND WEEKEND COVERAGE: [facility]: Days: [phone], please page Ludmila Velazquez for patient issues. Nights: [phone], please page Team GIM 4: G/H 8th floor: 13766; Non 8th floor [phone] Subjective INTERVAL HPI: Patient appeared overwhelmed with [...] Apparently her had an appointment at the [facility] and she accompanied him in the [...] recurrent UTIs which i (more content not included)...[facility]02-12-2025 NoteHNO ID: [id number] Author: BROOKE MULLEN RN Service: Care Management Author Type: Registered Nurse Type: Care Mgt Progress Note Filed: 09/27/2024 15:36 Note Text: CARE MANAGEMENT PROGRESS NOTE SERVICE DATE: 09/27/2024 SERVICE TIME: 3:34 PM LOS: 1 day Post-Acute Discharge Planning Patient Goal(s): Be able to go home, General wellness [place] of Choice Explained: Discharge Planning Participant(s): Patient/Family [...] Baron DATE: September 27, 2024 TIME: 3:[address] [facility]02-11-2025 NoteHNO ID: [id number] Author: FABIOLA GA MD Service: Hospital Medicine [...] bedside . Between 8AM to 5PM, page [phone] After hours 5PM to 8AM, page [phone] if patient on G80/81 H80/81, page [phone] if on other floor. Fabiola Ga MD Staff Attending Physician [facility]02-11-2025 NoteHNO ID: [id number] Author: LELA JENNINGS RT(R) Service: Radiology Author [...] PATIENT PRESENTS WITH AN IMPLANTABLE OR ATTACHED HEAD OF OPERATION AND LOGISTICS: No RADIOLOGY DEPARTMENT: CT; Exam(s) Completed: Spine PERIPHERAL IV DATA: Not applicable SIGNED BY: RT Tammi(R) September 26, 2024 7:34 [facility]02-10-2025 NoteHNO ID: [id number] Author: DALY FIERRO, SARAH Service: Emergency Medicine [...] 25, 2024 TIME: 10:21 PM PAGER/CONTACT #: [phone] [facility]ayette Medical Center02-10-20[facility] Note SARS-COV-2 (AGENT OF COVID-19) RNA: Not detected INFLUENZA A RNA: Not detected INFLUENZA B RNA: Not detected RESPIRATORY SYNCYTIAL VIRUS (RSV) RNA: Not detectedAdena Fayette Medical CenterComment on above:Performed By: #### [id number] #### [facility] CLIA [id number] [place], [place] [address]K [address]02-10-2025 Telephone encounter Note* Telephone Encounter - [...] Solis LPN September 25, 2024 8:41 AM [facility]02-10-[facility] Miscellaneous Notes* Telephone Encounter - Ramos [...] and necrotic epidermis layer. documented in this encounterHenry County Hospital02-10-2025 Telephone encounter Note * Telephone Encounter - Ramos Solis LPN - 09/25/2024 8:40 AM EST ----- Message from Kali Bacon MD sent at 09/23/2024 6:26 PM EST ----- Biopsy will need repeated. They were unable to process due to ulcerated and necrotic epidermis layer. [facility]02-05-2025 NoteHNO ID: [id number] Author: KALI BACON MD Service: ? Author [...] Lincomycin Rash Pseudoephedrine Hives Reglan [Metoclopram* Intolerance Kxtxxah-Fdx-Oul Red* Unknown Other reaction(s): Other Tequin [Gatifloxaci* [...] a day with meals. blood sugar diagnostic (NewsMaven ULTRA TEST) test strip Monitor blood sugar [...] reviewed and verified. 09/13/202409/16 (more content not included)...[facility]02-05-2025 History of Present illness Narrative* Kali Bacon [...] Lincomycin Rash Pseudoephedrine Hives Reglan [Metoclopram* Intolerance Zbpaefq-Jcf-Sih Red* Unknown Other reaction(s): Other Tequin [Gatifloxaci* [...] a day with meals. blood sugar diagnostic (NewsMaven ULTRA TEST) test strip Monitor blood sugar [...] 1 Dose once daily. lancets (ONE TOUCH DELBureaux A Partager) 33 gauge 1 Each once daily. blood sugar diagnostic (NewsMaven ULTRA TEST) test strip 1 Strip before [...] 20, 2024 1:07 PM documented in this encounterHenry County Hospital02-05-2025 NoteHNO ID: [id number] Author: SPRING SHIPLEY LPN Service: ? Author Type: LICENSED NURSE Type: Progress Notes Filed: 09/20/2024 14:22 Note Text: Patient is in office for mole excision on left shoulder. No refills needed Spring Shipley LPN September 20, 2024 1:07 PMSt[facility] NotePap Smear Specimen AdequacyFebruary 2024 11:59pmComment.Satisfactory for evaluation. Endocervical and/or squamous metaplasticcells (endocervical component)are present.[facility] INTERFACED A#[id number] Arthur G.H. Bing, Md, Cancer CenterComment on above: Satisfactory for evaluation. Endocervical and/or squamous metaplasticcells (endocervical component)are present.09-18-2024 NotePap Smear Specimen Adequacy September 19, 2024 12:59amComment.Satisfactory for evaluation. Endocervical and/or squamous metaplasticcells (endocervical component)are present.[facility] INTER[facility]ACED A#[id number] Medical [facility] [place] on above:Satisfactory for evaluation. Endocervical and/or squamous metaplasticcells (endocervical component)are present.09-18-2024 NotePap Smear Specimen AdequacyFebruary 2024 12:59amComment.Satisfactory for evaluation. Endocervical and/or squamous metaplasticcells (endocervical component)are present.[facility] INTERFACED A#[id number] Arthur G.H. Bing, Md, Cancer CenterComhawthorn center on above:Satisfactory for evaluation. Endocervical and/or squamous [...] Shipley LPN September 18, 2024 2:32 PM [facility]02-03-[facility] Miscellaneous Notes* Telephone Encounter - Spring Shipley LPN - 09/18/2024 2:30 PM EST Last Office Visit: 09-04-2024 Next Scheduled Office Visit: 09-20-2024 Requested Prescriptions Pending Prescriptions Disp Refills glimepiride (AMARYL) 4 mg tablet 90 tablet 3 Sig: Take 1 tablet by mouth daily with breakfast. Spring Shipley LPN September 18, 2024 2:32 PM documented in this encounterHenry County Hospital02-01-2025 NoteHNO ID: [id number] Author: DALY FAJARDO MD Service: ? Author [...] 1 Dose once daily. lancets (ONE TOUCH DELBureaux A Partager) 33 gauge 1 Each once daily. blood [...] Lincomycin Rash Pseudoephedrine Hives Reglan [Metoclopram* Intolerance Uffmhqn-Pcm-Gzc Red* Unknown Other reaction(s): Other Tequin [Gatifloxaci* [...] (she would need to hold Crestor and Odd). - Discussed supportive care treatment with home isolation (fever free for 24 hours and improving symptoms), rest, cold medicine, and analgesia. - Red flags to seek further treatment include chest pain, shortness of breath, and lethargy; in the ER if severe. - COVID A (more content not included)...[facility]02-01-2025 History of Present illness Narrative* [...] Lincomycin Rash Pseudoephedrine Hives Reglan [Metoclopram* Intolerance Klclpss-Oml-Djc Red* Unknown Other reaction(s): Other Tequin [Gatifloxaci* [...] (she would need to hold Crestor and Odd). - Discussed supportive care treatment with home [...] diabetes. Daly Fajardo MD documented in this encounterHenry County Hospital01-31-2025 Telephone encounter Note * Telephone Encounter - Vahe Merino - 09/15/2024 2:00 PM EST 11-15-2024 Colon EGD Justice Provider went over all prep instructions and gave patient direct numberto call with questions Vahe Merino [facility]01-31-2025 Miscellaneous Notes* Telephone Encounter - Vahe Merino - 09/15/2024 2:00 PM EST 11-15-2024 Colon EGD Justice Provider went over all prep instructions and gave patient direct numberto call with questions Vahe Merino documented in this encounterHenry County Hospital01-30-2025 NoteHNO ID: [id number] Author: BARBARA HANSEN MA Service: ? Author Type: Esthetician Facialist Type: Progress Notes Filed: 09/14/2024 09:46 Note [...] gout. When was patient's last Mammogram screening? [id number] Last Colonoscopy: 04/29/2020 Barbara Hansen [facility]01-30-2025 History of Present illness Narrative* Barbara Hansen ID - 09/14/2024 9:36 AM EST REVIEW OF [...] gout. When was patient's last Mammogram screening? [id number] Last Colonoscopy: 04/29/2020 Barbara Hansen MA * Halie Jin APRN.LAST SAWYER - 09/14/2024 9:00 AM EST HISTORY AND PHYSICAL Janessa Baron : 1950 REFERRING PHYSICIAN: Fanny Barron [address] [facility] [address] CHIEF COMPLAINT: Patient presents with: colon consult [...] colonoscopy was 04/[address] Edgar at [facility]. Sedation:Fentanyl 100 micrograms IV, Midazolam 5 mg IV Impression: - The entire examined colon is normal. Biopsied. Last EGD was at [facility] with Dr. Arredondo 01/2023. Sedation: MAC Impression: [...] a day with meals. blood sugar diagnostic (NewsMaven ULTRA TEST) test strip Monitor blood sugar [...] 1 Dose once daily. lancets (ONE TOUCH DELBureaux A Partager) 33 gauge 1 Each once daily. blood sugar diagnostic (WaveTech EnginesTOUCH ULTRA TEST) test strip 1 Strip before [...] [Iodine], Lincomycin, Pseudoephedrine, Reglan [Metoclop ramide Hcl], Txiuwji-Fww-Ghi Reductase Inhibitors, Tequin [Gatifloxacin], and Doxycycline PAST [...] edited and updated as necessary. Halie Jin APRN.LAST SAWYER documented in this encounterHenry County Hospital01-30-2025 NoteHNO ID: [id number] Author: HALIE JIN APRN.YULY Service: ? Author Type: Nurse Practitioner Type: Progress Notes Filed: 09/14/2024 09:46 Note Text: HISTORY AND PHYSICAL Janessa Baron : 1950 REFERRING PHYSICIAN: Fanny [address] [facility] [address] CHIEF COMPLAINT: Patient presents with: colon consult [...] colonoscopy was 04/[address] Edgar at [facility]. Sedation:Fentanyl 100 micrograms IV, Midazolam 5 mg IV Impression: - The entire examined colon is normal. Biopsied. Last EGD was at [facility] with Dr. Arredondo 01/2023. Sedation: MAC Impression: [...] 1 Dose once daily. lancets (ONE TOUCH DELBureaux A Partager) 33 gauge 1 Each once daily. blood [...] 12-Hr, Dextromethorphan, Doxylamine, Erythromycin (more content not included)...[facility]01-29-2025 Telephone encounter Note* Telephone Encounter [...] Shipley LPN September 13, 2024 2:06 PM [facility]01-29-20[facility] Miscellaneous Notes* Telephone Encounter - Spring [...] 13, 2024 2:06 PM documented in this encounterHenry County Hospital01-24-2025 Telephone encounter Note * Telephone Encounter - Ramos Solis LPN - 09/08/2024 10:08 AM EST Last Office Visit: 09/04/24 Next visit: 09/20/24 [facility]01-24-2025 Miscellaneous Notes* Telephone Encounter - Ramos Solis LPN - 09/08/2024 10:08 AM EST Last Office Visit: 09/04/24 Next visit: 09/20/24 documented in this encounterHenry County Hospital01-21-2025 History of Present illness Narrative* Rashad Blake RT(R) - 09/05/2024 2:00 PM EST Radiology [...] PATIENT PRESENTS WITH AN IMPLANTABLE OR ATTACHED HEAD OF OPERATION AND LOGISTICS: No RADIOLOGY DEPARTMENT: Bone Density PERIPHERAL IV DATA: Not applicable SIGNED BY: RT Yenny(R) September 05, 2024 2:53 PM documented in this encounterHenry County Hospital01-21-2025 NoteHNO ID: [id number] Author: RASHAD BLAKE RT(Jami) Service: ? Author Type: Technologist Type: Progress [...] PATIENT PRESENTS WITH AN IMPLANTABLE OR ATTACHED HEAD OF OPERATION AND LOGISTICS: No RADIOLOGY DEPARTMENT: Bone Density PERIPHERAL IV DATA: Not applicable SIGNED BY: RT Yenny(R) September 05, 2024 2:53 PMSt[facility] History of Present illness Narrative* Fanny Barron [...] Lincomycin Rash Pseudoephedrine Hives Reglan [Metoclopram* Intolerance Ttyzhhd-Owe-Bwm Red* Unknown Other reaction(s): Other Tequin [Gatifloxaci* [...] about 8 - 12 weeks. Fanny Barron APRN.LAST SAWYER I spent a total of 60 minutes on the date of the service which included preparing to see the patient, ciwi-bi-gcjw patient care, completing clinical documentation, obtaining and/or [...] evaluation of this patient. documented in this encounterHenry County Hospital01-21-2025 NoteHNO ID: [id number] Author: FANNY BARRON, ? Service: ? Author [...] 09/05/2024) 10 capsule 0 blood sugar diagnostic (WaveTech EnginesTOUCH ULTRA TEST) test strip Monitor blood sugar daily and as needed. 100 Each 3 ketoconazole (NIZORAL) 2 % cream Apply to affected area once daily for 10 days. sucralfate (CARAFATE) 1 gram tablet Take 1 g by mouth three (more content not included)...[facility]01-20-2025 History of Present illness Narrative* [...] for her diabetes. Her mostrecent A1c obtained 12 2 was 7.2. However she states in her [...] Lincomycin Rash Pseudoephedrine Hives Reglan [Metoclopram* Intolerance Zauffur-Urt-Cgk Red* Unknown Other reaction(s): Other Tequin [Gatifloxaci* [...] September 04, 2024 09/04/2024 documented in this encounterHenry County Hospital01-20-2025 NoteHNO ID: [id number] Author: SPRING SHIPLEY LPN Service: ? Author [...] for a UTI. No refills needed. Spring ShipleyPATRICA September 04, 2024 1:57 [facility]01-20-2025 NoteHNO ID: [id number] Author: KALI BACON MD Service: ? Author [...] Lincomycin Rash Pseudoephedrine Hives Reglan [Metoclopram* Intolerance Xlbkgck-Rsx-Ssz Red* Unknown Other reaction(s): Other Tequin [Gatifloxaci* [...] a day with meals. blood sugar diagnostic (WaveTech EnginesTOUCH ULTRA TEST) test strip Monitor blood sugar [...] 1 Each once daily. blood sugar diagnostic (WaveTech EnginesTOUCH ULTRA TEST) test strip 1 Strip before [...] BP Cuff Size: Regula (more content not included)...[facility]01-19-2025 NoteHNO ID: [id number] Author: MIKE CHANEL PA Service: ? Author Type: Physician Vb Net Programmer Type: Progress Notes Filed: 09/03/2024 08:36 Note Text: This note was created using Triad Semiconductorriter. Subjective Janessa Baron is a 74 year [...] Dye [Iodine], Lincomycin, Pseudoephedrine, Reglan [Metoclopramide Hcl], Dfqbxmq-Hks-Obq Reductase Inhibitors, Tequin [Gatifloxacin], and Doxycycline MEDICATIONS [...] rebound. Skin: General: Ski (more content not included)...[facility]01-19-2025 History of Present illness Narrative* Mike Chanel PA - 09/03/2024 8:31 AM EST This note was created using [employer] Semicon[employer]riter. Subjective Janessa Baron is a 74 year [...] [Iodine], Lincomycin, Pseudoephedrine, Reglan [Metoclopr amide Hcl], Yazyivm-Rqy-Qnv Reductase Inhibitors, Tequin [Gatifloxacin], and Doxycycline MEDICATIONS albuterol (PROVENTIL) 2.5 mg /3 mL (0.083 %) nebulizer solution INHALE WITH 1 VIAL IN NEBULIZER EVERY SIX HOURS NEEDED rosuvastatin (CRESTOR) 10 mg tablet Take 1 tablet by mouth daily at bedtime. metFORMIN (GLUCOPHAGE) 500 mg tablet Take 2 tablets by mouth two times a day with meals. blood sugar diagnostic (NewsMaven ULTRA TEST) test strip Monitor blood sugar [...] discussed in detail warranting prompt ER evaluation. NIDU Paez documented in this encounterHenry County Hospital01-13-2025 Telephone encounter Note * Telephone Encounter [...] Shipley LPN August 28, 2024 9:02 AM [facility]01-13-2025 Miscellaneous Notes* Telephone Encounter - Spring [...] 28, 2024 9:02 AM documented in this encounterHenry County Hospital01-09-2025 Note* Addendum Note - Kali Bacon MD - 2024 9:09 AM ESTAddended by: KALI BACON on: 2024 09:09 AM Modules accepted: Orders [facility]01-09-2025 Miscellaneous Notes* Addendum Note - Kali Bacon MD - 2024 9:09 AM ESTAddended by: KALI BACON on: 2024 09:09 AM Modules accepted: Orders documented in this encounterHenry County Hospital01-07-2025 Telephone encounter Note * Telephone Encounter - Spring Shipley LPN - 08/22/2024 10:25 AM EST Venofer is available at [facility]. Please complete the pended order Pended Orders ID Status Description Pended By When Reason [id number] Pended iron sucrose 200 mg in NaCl 0.9% 100 mL-ONCE Spring Shipley LPN 08/22/24 1026 Spring Shipley LPN August 22, 2024 10:26 AM [facility]01-07-2025 Miscellaneous Notes* Telephone Encounter - Spring Shipley LPN - 08/22/2024 10:25 AM EST Venofer is available at [facility]. Please complete the pended order Pended Orders ID Status Description Pended By When Reason [id number] Pended iron sucrose 200 mg in NaCl 0.9% 100 mL-ONCE Spring Shipley LPN 08/22/24 1026 Spring PATRICA Shipley August 22, 2024 10:26 AM * Telephone Encounter - Spring Shipley LPN - 08/22/2024 10:24 AM EST ----- Message from Kali Bacon MD sent at 08/22/2024 8:06 AM EST ----- Anemia unchanged. Iron deficiency severe. Arrange iron transfusion in [place]. Consult hematology. documented in this encounterHenry County Hospital01-07-2025 Telephone encounter Note * Telephone Encounter - Spring Shipley LPN - 08/22/2024 10:24 AM EST ----- Message from Kali Bacon MD sent at 08/22/2024 8:06 AM EST ----- Anemia unchanged. Iron deficiency severe. Arrange iron transfusion in [place]. Consult hematology. [facility]01-06-2025 NoteHNO ID: [id number] Author: KALI BACON MD Service: ? Author Type: Physician Type: Progress Notes Filed: 08/22/2024 09:45 Note Text: Subjective Janessa Baron is a 73 year old female. Janessa presents today for preop clearance for upcoming back surgery. She denies any problems with anesthesia with her last procedure. Additionally she denies any current cardiovascular, pulmonary, or neurological symptoms. 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 She has appointment with cardiology on September [...] Lincomycin Rash Pseudoephedrine Hives Reglan [Metoclopram* Intolerance Yxucpth-Hbh-Wck Red* Unknown Other reaction(s): Other Tequin [Gatifloxaci* [...] a day with meals. blood sugar diagnostic (Card IsleUCH ULTRA TEST) test strip Monitor blood sugar [...] 1 Each once daily. blood sugar diagnostic (WaveTech EnginesTOUCH ULTRA TEST) test strip 1 Strip before [...] please see assessment an (more content not included)...[facility]01-06-2025 History of Present illness Narrative * Kali Bacon MD - 08/21/2024 4:39 PM EST Subjective Janessa Baron is a 73 year old female. Janessa presents today for preop clearance for upcoming back surgery. She denies any problems with anesthesia with her last procedure. Additionally she denies any current cardiovascular, pulmonary, or neurological symptoms. 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 She has appointment with cardiology on September [...] Lincomycin Rash Pseudoephedrine Hives Reglan [Metoclopram* Intolerance Ubxmsyx-Pjk-Ytf Red* Unknown Other reaction(s): Other Tequin [Gatifloxaci* [...] a day with meals. blood sugar diagnostic (NewsMaven ULTRA TEST) test strip Monitor blood sugar [...] 1 Dose once daily. lancets (ONE TOUCH DELBureaux A Partager) 33 gauge 1 Each once daily. blood [...] Bacon MD August 22, 2024 * Spring Shipley LPN - 08/21/2024 4:24 PM EST Patient is in office for pre surgical clearance. Patient is having 360 Lumbar fusion L4-5, cement augmentation possible on 09-11-2024. Physician performing procedure is Dr. Issa of [facility]. No refills needed. Spring Shipley LPN August 21, 2024 4:32 PM documented in this encounterHenry County Hospital01-06-2025 NoteHNO ID: [id number] Author: SPRING SHIPLEY LPN Service: ? Author Type: LICENSED NURSE Type: Progress Notes Filed: 08/22/2024 09:45 Note Text: Patient is in office for pre surgical clearance. Patient is having 360 Lumbar fusion L4-5, cement augmentation possible on 09-11-2024. Physician performing procedure is Dr. Issa of [facility]. No refills needed. Spring Shipley LPN August 21, 2024 4:32 [facility]12-30-2024 Telephone encounter Note* Telephone Encounter - [...] Solis LPN August 14, 2024 9:42 AM [facility] Miscellaneous Notes* Telephone Encounter - Ramos [...] anemia. Check iron levels. documented in this [facility] Telephone encounter Note * Telephone Encounter - Ramos Solis LPN - 08/14/2024 9:41 AM EST ----- Message from Kali Bacon MD sent at 08/13/2024 10:49 AM EST ----- CV is low with anemia. Check iron levels. [facility]12-15-2024 NoteHNO ID: [id number] Author: KALI BACON MD Service: ? Author [...] Lincomycin Rash Pseudoephedrine Hives Reglan [Metoclopram* Intolerance Ogbqxde-Bfj-Azk Red* Unknown Other reaction(s): Other Tequin [Gatifloxaci* Rash Doxycycline Unknown, Vomiting MEDICATIONS: metFORMIN (GLUCOPHAGE) 500 mg tablet Take 2 tablets by mouth two times a day with meals. blood sugar diagnostic (NewsMaven ULTRA TEST) test strip Monitor blood sugar [...] ampules with saline and apply twice daily eydosxmm-gafmlswzz-adasdsqzwodwsh (CORTISPORIN) 3.5-10,000-1 mg/mL-unit/mL-% otic suspension Use 3 [...] 500 + D ORAL (more content not included)...[facility]12-11-2024 NoteHNO ID: [id number] Author: RAMOS SOLIS LPN Service: ? Author Type: LICENSED NURSE Type: Progress Notes Filed: 07/30/2024 20:49 Note Text: Due health maintenance Urine Albumin:Creatinine Ratio declined Diabetic Foot Exam declined Spirometry declined Hepatitis C Screening declined DTaP,Tdap,Td Vaccine(1 - Tdap) declined Mammogram Screening scheduled [place] 08/31/24 Bone Density Screening scheduled [place] 08/31/24 BP Controlled (<130/80) HbA1C ordered LDL Cholesterol ordered Discuss left trigger thumb and upcoming L4-L5 surgery Ramos Solis LPN July 26, 2024 2:17 PM[facility] Telephone encounter Note * Telephone Encounter - Ramos Solis LPN - 07/24/2024 8:36 AM EST Last Office Visit: 02/16/24 Next visit: 07/26/24 Requested Prescriptions Pending Prescriptions Disp Refills metFORMIN (GLUCOPHAGE) 500 mg tablet [Pharmacy Med Name: metformin 500 mg tablet] 360 tablet 3 Sig: Take 2 tablets by mouth two times a day with meals. Ramos Solis LPN July 24, 2024 8:37 AM [facility]12-09-2024 Miscellaneous Notes* Telephone Encounter - Ramos [...] 24, 2024 8:37 AM documented in this encounterHenry County Hospital12-05-2024 Evaluation note* Diagnosis Onset Date Resolution Status Admit Date Spinal stenosis of lumbar region with neurogenic claudication acute July 20 8:48am Spondylolisthesis of lumbar region acute July 20 8:48am Anemia acute September 06, 2024 11:16am Carotid stenosis, left acute Ja [facility] 2024 11:16am History of coronary artery bypass graft x 3 November, acute September 06, 2 025 11:16am Hyperlipidemia acute September 062024 11:16am Postoperative atrial fibrillation acute September 06 11:16am HTN (hypertension) chronic Januar y 2024 11:16am 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 Work Phone: 1(264) 210-985112-05-2024 Evaluation note* Diagnosis Onset Date Resolution Status Admit Date Spinal stenosis of lumbar region with neurogenic claudication acute July 20 8:48am Spondylolisthesis of lumbar region acute Dipka 5th, 20 24 8:48am Anemia acute September 06, 2024 11:16am [...] 2024 3:21pm Vulvar atrophy acute October 8:03am [facility] Work Phone: 1(533) 188-307608-28-2024 NoteHNO ID: [id number] Author: ESTEPHANIA AYON RN Service: ? Author Type: Registered Nurse Type: Progress Notes Filed: 04/12/2024 13:20 Note Text: [facility] Chart Review Provider Action/FYI Gap closure Patient identified by name and date of :YES Outreach made: No: Outreach not necessary Patient identified for Care Coordination from: Care gap reviewed: [facility] Med Rec Post Discharge, TR Patient engagement after inpatient discharge, and notification of inpt and with the insurance carrier: [facility] Outreach Plan:Follow up call needed:No Estephania Ayon [facility]08-28-2024 History of Present illness Narrative * Estephania Ayon, RN - 04/12/2024 1:06 PM EDT [facility] Chart Review Provider Action/FYI Gap closure Patient identified by name and date of :YES Outreach made: No: Outreach not necessary Patient identified for Care Coordination from: Care gap reviewed: [facility] Med Rec Post Discharge, TRC Patient engagement after inpatient discharge, and notification of inpt and with the insurance carrier: [facility] Outreach Plan:Follow up call needed:No Estephania Ayon RN documented in this encounterHenry [facility] Hospital08-28-2024 NotePatient Outreach (MRCAC) JANESSA BARON ([id number]) 1950 F Date Time Provider Department 04/12/24 ESTEPHANIA AYON MRCNIHARIKA During your visit today, we recorded the following information about you: Estephania Ayon RN 04/12/2024 1:20 PM Signed [facility] Chart Review Provider Action/FYI Gap closure Patient identified by name and date of :YES Outreach made: No: Outreach not necessary Patient identified for Care Coordination from: Care gap reviewed: [facility] Med Rec Post Discharge, TRC Patient engagement after inpatient discharge, and notification of inpt and with the insurance carrier: [facility] Outreach Plan:Follow up call needed:No Estephania Ayon [...] REGLAN (METOCLOPRAMIDE HCL) 04/27/2018 5 - Intolerance EAWLEWF-WGU-EZR REDUCTASE INHIBIT*01/31/2017 16 - Unknown Comments: Other reaction(s): Other TEQUIN (GATIFLOXACIN) 04/27/2018 2 - Rash DOXYCYCLINE 11/28/2018 16 - Unknown 11 - Vomiting Date Reviewed: 02/16/2024 Reviewed by: Laura Lyons LPN - Fully Assessed Reason for Visit: [employer] Chronic Care [3612] Cmt: Gap closure Prescriptions as of 04/12/2024 - blood sugar diagnostic (ONETOUCH ULTRA TEST) [...] with saline and apply twice daily - msywojpq-kpsdbnbsh-gubipzrkqpfjik (CORTISPORIN) 3.5-10,000-1 mg/mL-unit/mL-% otic suspension Use 3 [...] by mouth. - ubideca (more content not included)...[facility]07-03-2024 NoteHNO ID: [id number] Author: KALI BACON MD Service: ? Author Type: Physician Type: Progress Notes Filed: 02/16/2024 15:47 Note Text: Subjective Janessa Baron is a 73 year old female. Patient in the office today with complaints of low blood pressure and elevated glucose. Patient had carotid stent placed 01/25/24 at [facility]. Patient is taking Brillinta for 30 days [...] Lincomycin Rash Pseudoephedrine Hives Reglan [Metoclopram* Intolerance Qgofbhy-Ina-Mkt Red* Unknown Other reaction(s): Other Tequin [Gatifloxaci* Rash Doxycycline Unknown, Vomiting MEDICATIONS: blood sugar diagnostic (WaveTech EnginesTOUCH ULTRA TEST) test strip Monitor blood sugar [...] ampules with saline and apply twice daily uxqkdkdm-tqsxtzmlc-bwthjeqnxhqrhg (CORTISPORIN) 3.5-10,000-1 mg/mL-unit/mL-% otic suspension Use 3 [...] (GAVISCON ORAL) T (more content not included)... [facility]07-03-2024 History of Present illness Narrative* Kali Bacon MD - 02/16/2024 3:41 PM EDT Subjective Janessa Baron is a 73 year old female. Patient in the office today with complaints of low blood pressure and elevated glucose. Patient had carotid stent placed 01/25/24 at [facility]. Patient is taking Brillintafor 30 days post [...] Lincomycin Rash Pseudoephedrine Hives Reglan [Metoclopram* Intolerance Tikgesj-Dix-Gxk Red* Unknown Other reaction(s): Other Tequin [Gatifloxaci* Rash Doxycycline Unknown, Vomiting MEDICATIONS: blood sugar diagnostic (NewsMaven ULTRA TEST) test strip Monitor blood sugar [...] ampules with saline and apply twice daily kyjarewq-kfvshxjgv-bhuewoeexyacnw (CORTISPORIN) 3.5-10,000-1 mg/mL-unit/mL-% otic suspension Use 3 [...] without long-term current use of insulin ([facility]) E11.9 HEMOGLOBIN A1C COMPREHENSIVE METABOLIC PANEL 3. Pure hypercholesterolemia E78.00 LIPID PANEL BASIC COMPREHENSIVE METABOLIC PANEL 4. Diabetes mellitus type 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 ([facility]) E11.9 blood sugar diagnostic (ONETOUCH ULTRA TEST) test strip 5. Arteriosclerosis of coronary artery I25.10 6. Paroxysmal atrial fibrillation ([facility]) I48.0 7. Stenosis of carotid artery, unspecified [...] Patient had carotid stent placed 01/25/24 at [facility]. Patient is taking Brillintafor 30 days post op ending on 02/24/2024. She said she is having issues breathing and increasing her glucose levels. Patient wants to discuss options. Refills entered. Laura Lyons LPN February 16, 2024 2:48 PM documented in this encounterHenry County Hospital07-03-2024 NoteHNO ID: [id number] Author: LAURA LYONS LPN Service: ? Author Type: LICENSED NURSE Type: Progress Notes Filed: 02/16/2024 15:47 Note Text: Patient in the office today with complaints of low blood pressure and elevated glucose. Patient had carotid stent placed 01/25/24 at [facility]. Patient is taking Brillinta for 30 days post op ending on 02/24/2024. She said she is having issues breathing and increasing her glucose levels. Patient wants to discuss options. Refills entered. Laura Lyons LPN February 16, 2024 2:48 PM[facility] Telephone encounter Note* Telephone Encounter - Ewa Mclian LPN - 02/07/2024 9:47 AM EDT aJnessa Baron's Rody called today. : 1950 Allergies: Metoclopramide, Sulfamethoxazole-Trimethoprim, Morphine, Acetaminophen, Augmentin [Amoxicillin-Pot Clavulanate], Cefzil [Cefprozil], Dayquil Allergy 12-Hr, Dextromethorphan, Doxylamine, Erythromycin, Iodinated Contrast Media, Ivp Dye [Iodine], Lincomycin, Pseudoephedrine, Reglan [Metoclop ramide Hcl], Toiijfi-Yqv-Cqr Reductase Inhibitors, Tequin [Gatifloxacin], and Doxycycline (home) [phone] (work) [phone] (cell) Reason for call: Rody said Janessa was seen in the office by Dr Bacon on 01/24/24. She had a rash at that time on her arms, neck, back, and legs. The steroid medication is not working. Janessa wants to go to a Dermatologistand needs a referral. She would like to go see Communication Coordinator Dr Garrick Walters of [place] [address], [place] [address] Patient last appointment: 01/24/2024 The patients preferred pharmacy has been captured for this encounter? ally Mclain LPN [facility]06-[facility] Miscellaneous Notes* Telephone Encounter - Ewa Mclain LPN - 02/07/2024 9:47 AM EDT Janessa Baron's Rody called today. : 1950 Allergies: Metoclopramide, Sulfamethoxazole-Trimethoprim, Morphine, Acetaminophen, Augmentin [Amoxicillin-Pot Clavulanate], Cefzil [Cefprozil], Dayquil Allergy 12-Hr, Dextromethorphan, Doxylamine, Erythromycin, Iodinated Contrast Media, Ivp Dye [Iodine], Lincomycin, Pseudoephedrine, Reglan [Metoclop ramide Hcl], Mduazrq-Ucq-Bcy Reductase Inhibitors, Tequin [Gatifloxacin], and Doxycycline (home) [phone] (work) [phone] (cell) Reason for call: Rody said Janessa was seen in the office by Dr Bacon on 01/24/24. She had a rash at that time on her arms, neck, back, and legs. The steroid medication is not working. Janessa wants to go to a Dermatologistand needs a referral. She would like to go see Communication Coordinator Dr Garrick Walters [address] [place] [phone] Patient last appointment: 01/24/2024 The patients preferred pharmacy has been captured for this encounter? no Ewa Mclain LPN documented in this encounterHenry County Hospital06-14-2024 NoteHNO ID: [id number] Author: KAELA CARTER RN Service: ? Author [...] business days post-discharge SUMMARY: -Pt discharged from [facility] on 01/27/24. -Follow up appointment on 02/10/24-cardiology. [...] the office on 02/10/24. Kaela Carter RN [phone] [place], [place] [address]709206-14-2024 History of Present illness Narrative* Kaela Carter RN - 01/28/2024 9:54 AM EDT TRANSITION [...] business days post-discharge SUMMARY: -Pt discharged from [facility] on 01/27/24. -Follow up appointment on 02/10/24-cardiology. [...] home today. Her blood pressures have remained gblwy370 systolic so her home BP meds have been held. She has been advised to check her BP twice daily and restart her home blood pressure medications once her systolic pressures are greater than 140. [facility] outpatient follow-up scheduled in the office on 02/10/24. Kaela Carter RN [phone] x [phone] documented in this encounterHenry County Hospital06-10-2024 History of Present illness Narrative* Kali [...] Lincomycin Rash Pseudoephedrine Hives Reglan [Metoclopram* Intolerance Evcyycv-Qxf-Azi Red* Unknown Other reaction(s): Other Tequin [Gatifloxaci* [...] ampules with saline and apply twice daily znvahtlx-jepyxuwwe-zgciosgesaqtrs (CORTISPORIN) 3.5-10,000-1 mg/mL-unit/mL-% otic suspension Use 3 [...] 24, 2024 1:26 PM documented in this encounterHenry County Hospital03-18-2024 History of Present illness Narrative* Kali Bacon MD - 11/01/2023 3:55 PM EDT This note was created using Triad Semiconductorriter. Subjective Janessa Baron is a 73 year [...] 01, 2023 2:25 PM documented in this encounterHenry County Hospital02-02-2024 NotePap Smear Specimen AdequacyFebruary 2023 4:57pmComment.Satisfactory for evaluation. Endocervical and/or squamous metaplasticcells (endocervical component)are present.[facility] INTERFACED A#[id number] Arthur G.[facility]. [facility], Md, Cancer CenterComment on above: Satisfactory for evaluation. Endocervical and/or squamous metaplasticcells (endocervical component)are present.09-17-2023 NotePap Smear Specimen Adequacy September 17, 2023 5:57pmComment.Satisfactory for evaluation. Endocervical and/or squamous metaplasticcells (endocervical component)are present.[facility] INTER[facility]ACED A#[id number] Arthur G.H. Bing, Md, Cancer CenterComment on above:Satisfactory for evaluation. Endocervical and/or squamous metaplasticcells (endocervical component)are present.09-17-2023 NotePap Smear Specimen AdequacyFebruary 2023 5:57pmComment.Satisfactory for evaluation. Endocervical and/or squamous metaplasticcells (endocervical component)are present.[facility] INTER[facility]ACED A#[id number] Arthur G.H. Bing, Md, Cancer CenterComment on above:Satisfactory for evaluation. Endocervical and/or squamous [...] review all the medicines you take, even bckw-fwz-lkyueof medicines. As you get older, the way [...] have certain medical conditions. documented in this encounterHenry County Hospital12-06-2023 History of Present illness Narrative* Kali [...] Lincomycin Rash Pseudoephedrine Hives Reglan [Metoclopram* Intolerance Kikxnid-Acu-Jcs Red* Unknown Other reaction(s): Other Tequin [Gatifloxaci* [...] hydroCHLOROthiazide 12.5 mg tablet Take by mouth. sokikumy-xwbyhzkkp-ptitrmshfqbuwd (CORTISPORIN) 3.5-10,000-1 mg/mL-unit/mL-% otic suspension Use 3 [...] by mouth twice daily. lancets (ONE TOUCH DELBureaux A Partager) 33 gauge 1 Each once daily. blood [...] Density Screening Dilated Retinal Exam Dr. Alex hSipley LPN July 21, 2023 10:38 AM documented in this encounterHenry County Hospital11-29-2023 Telephone encounter Note * Telephone Encounter - Spring Shipley LPN - 07/14/2023 10:12 AM EST Thank you, Dr. Bacon will order lab when he sees fit. Spring Shipley LPN July 14, 2023 10:12 AM [facility]11-29-[facility] Miscellaneous Notes* Telephone Encounter - Spring Shipley LPN - 07/14/2023 10:12 AM EST Thank you, Dr. Bacon will order lab when he sees fit. Spring Shipley LPN July 14, 2023 10:12 AM * Telephone Encounter - Lauren Bassett MA - 07/14/2023 9:44 AM EST Kiana Londono This is Lauren with [employer]. Pt is due for A1C, their next ov is 07/21/2023 Thanks Lauren Bassett (gayatri, [employer] navigator) documented in this encounterHenry County Hospital11-29-2023 Telephone encounter Note * Telephone Encounter - Lauren Bassett MA - 07/14/2023 9:44 AM EST Kiana Londono This is Lauren with [employer]. Pt is due for A1C, their next ov is 07/21/2023 Thanks Lauren Bassett (gayatri, [employer] navigator) [facility]11-27-[facility] History of Present illness Narrative* Kali Bacon MD - 07/12/2023 1:52 PM EST Subjective Janessa Baron is a 72 year old female. Janessa presents today for elevated blood pressure readings. Her hydrochlorothiazide was stopped by her lacing presser due to it drying out her nose [...] Lincomycin Rash Pseudoephedrine Hives Reglan [Metoclopram* Intolerance Cqffasn-Rcc-Wju Red* Unknown Other reaction(s): Other Tequin [Gatifloxaci* [...] ampules with saline and apply twice daily avncjygs-mtcwfitko-akirobsvpekste (CORTISPORIN) 3.5-10,000-1 mg/mL-unit/mL-% otic suspension Use 3 [...] by mouth twice daily. lancets (ONE TOUCH DELBureaux A Partager) 33 gauge 1 Each once daily. blood sugar diagnostic (NewsMaven ULTRA TEST) test strip 1 Strip before [...] follow up exam after being seen at [facility] on 07/10/2023 for hypertension. Lisinopril was increased to 10 mg BID instead of once daily. Patient states her BP was 196/100. Patient states that lacing presser informed her to stop taking Hydrochlorothiazide because [...] 12, 2023 1:35 PM documented in this encounterHenry County Hospital11-25-2023 Instructions* Patient Instructions* Marva Madera APRN.CNP - 07/10/2023 11:25 AM EST ASSESSMENT/PLAN: 1. Hypertension, unspecified type - ICD9: 401.9, ICD10: I10 - Uncontrolled - Continue current medications - Increase lisinopril to 10 mg TWICE daily instead of once daily. Follow up with PCP or stars coordinator for further concerns. - LISINOPRIL 10 MG TABLET - Follow-up with your PCP in 3-5 days if symptoms have not improved or sooner if symptoms worsen - Discussed red flags and need for immediate medical evaluation if any occur. - Discussed supportive care treatment with fluids, rest and analgesia. - Discussed expected course of illness Marva Madera APRN.CNP documented in this encounterHenry County Hospital11-25-2023 History of Present illness Narrative* Marva [...] syndrome. She has a PCP and a stars coordinator. She can see her PCP the first [...] Ivp Dye [Iodine], Lincomycin, Pseudoephedrine,Reglan [Metoclopramide Hcl], Vmtulci-Hzy-Gks Reductase Inhibitors, Tequin [Gatifloxacin], Doxycycline, Sulfamethoxazole, and [...] Take 1 tablet by mouth every afternoon. xqapvdcc-zhsxbvynq-iqshktysowojff (CORTISPORIN) 3.5-10,000-1 mg/mL-unit/mL-% otic suspension Use 3 [...] once daily. Follow up with PCP or stars coordinator for further concerns. - LISINOPRIL 10 MG TABLET - Follow-up with your PCP in 3-5 days if symptoms have not improved or sooner if symptoms worsen - Discussed red flags and need for immediate medical evaluation if any occur. - Discussed supportive care treatment with fluids, rest and analgesia. - Discussed expected course of illness Marva Madera APRN.LAST SAWYER documented in this encounterHenry County Hospital11-14-2023 Miscellaneous Notes* Telephone Encounter - Yajaira [...] insurance. Yajaira Forbes LPN documented in this encounterHenry County Hospital11-09-2023 Instructions* Patient Instructions* Savita Miller APRN.CNP [...] dermatology if no improvment documented in this encounterHenry County Hospital11-09-2023 History of Present illness Narrative* Savita Miller APRN.CNP - 06/24/2023 8:45 AM EST Images from the original note were not included. Subjective The history is provided by the patient. No high school foreign language teacher was used. HPI Janessa Baron is a [...] have confirmed and edited as necessary, the [facility] Review of Systems Constitutional: Negative for [...] indetail warranting prompt ER evaluation. Savita Miller APRN.LAST SAWYER documented in this encounterHenry County Hospital10-28-2023 History of Present illness Narrative* Anum Davis APRN.LAST SAWYER - 06/12/2023 8:22 AM EDT This note was created using Triad Semiconductorriter. Subjective Janessa Baron is a 72 year old female. HPI patient states last Wednesday that she had went off her allergy medicine and then started with a skin rash. For the last 3 days she started noticing a itchy red rash underneath her breast and in thegroin area. She has tried yqqw-dtx-fwwtovs creams that are not helping her much. [...] Level: 3 - Low documented in this encounterHenry County Hospital10-10-2023 Miscellaneous Notes* Telephone Encounter - Mojgan Chen LPN - 05/25/2023 8:19 AM EDT Pharmacy faxed requesting the following refill. Requested Prescriptions Pending Prescriptions Disp Refills fluticasone (FLONASE) 50 mcg/actuation nasal spray [Pharmacy Med Name: fluticasone propionate 50 mcg/actuation nasal spray,suspension] 16 g 2 Sig: Use 2 Sprays in each nostril once daily. Patient last appointment: 05/10/2023 NOV 07/21/2023 Patient Phone numbers: [phone] (home) [phone] (work) Request is for script(s) to be escript to pharmacy. Mojgan Chen LPN documented in this encounterHenry County Hospital10-06-2023 Miscellaneous Notes* Telephone Encounter - Chula [...] for patient with negative results and recommendations.Venice Rothmna LPN * Telephone Encounter - Venice Rothman [...] resolved. Marva Madera CNP documented in this encounterHenry County Hospital10-02-2023 Instructions* Patient Instructions* Marva Madera APRN.CNP - 05/17/2023 11:48 AM EDT ASSESSMENT/PLAN: 1. Urinary frequency - ICD9: 788.41, ICD10: R35.0 - UA DIP, URINE (POC)- normal in office, will send for culture, no medication prescribed today. - URINE CULTURE Marva Madera APRN.CNP documented in this encounterHenry County Hospital10-02-2023 History of Present illness Narrative* Marva [...] Ivp Dye [Iodine], Lincomycin, Pseudoephedrine,Reglan [Metoclopramide Hcl], Vorxfbp-Aze-Xbz Reductase Inhibitors, Tequin [Gatifloxacin], Doxycycline, Sulfamethoxazole, and Trimethoprim MEDICATIONS sucralfate (CARAFATE) 1 gram tablet^Take 1 tablet by mouth three times daily. Take on empty stomachand avoid eating or drinking for 30 mins after taking.^Disp: 90 tablet^Rfl: 11 hydroCHLOROthiazide 12.5 mg tablet^Take by mouth.^Disp: ^Rfl: lisinopril (ZESTRIL) 10 mg tablet^Take 1 tablet by mouth every afternoon.^Disp: ^Rfl: rsiofhus-hcmzujxrx-knylbmlspdjzdp (CORTISPORIN) 3.5-10,000-1 mg/mL-unit/mL-% otic suspension^Use 3 Drops [...] prescribed today. - URINE CULTURE Marva Madera APRN.LAST SAWYER documented in this encounterHenry County Hospital09-05-2023 History of Present illness Narrative* Ramses Shukla APRN.CNP - 04/20/2023 9:14 AM EDT DEPARTMENT OF [...] Lincomycin Rash Pseudoephedrine Hives Reglan [Metoclopram* Intolerance Iwtdota-Pyw-Nzv Red* Unknown Comment:Other reaction(s): Other Tequin [Gatifloxaci* [...] ubidecarenone (CO Q-10 ORAL) Take by mouth. xixbjqfw-qlfueazzs-xkbmqmtnutceff (CORTISPORIN) 3.5-10,000-1 mg/mL-unit/mL-% otic suspension Use 3 [...] APRN.CNP 04/20/2023 9:15 AM documented in this encounterHenry County Hospital09-01-2023 Miscellaneous Notes* Telephone Encounter - Savita [...] will send a different medication to [facility] in [place] for her. Please call and advise. documented in this encounterHenry County Hospital08-30-2023 History of Present illness Narrative* Chula Valentine, PATRICIA.LAST SAWYER - 04/14/2023 12:18 PM EDT This note was created using Triad Semiconductorriter. Subjective Janessa Baron is a 72 year [...] history is provided by the patient. No high school foreign language teacher was used. UTI This is a new [...] Dye [Iodine], Lincomycin, Pseudoephedrine, Reglan [Metoclopramide Hcl], Ockkuyd-Gax-Enc Reductase Inhibitors, Tequin [Gatifloxacin], Doxycycline, Sulfamethoxazole, and [...] meals for 7 days.^Disp: 14 capsule^Rfl: 0 mnuqkwkg-fjgesuygf-xnxvfnsrhbadgj (CORTISPORIN) 3.5-10,000-1 mg/mL-unit/mL-% otic suspension^Use 3 Drops [...] 380.10, ICD10: H60.93 RX Polytrim Chula Valentine APRN.LAST SAWYER documented in this encounterHenry County Hospital08-29-2023 Miscellaneous Notes* Telephone Encounter - Migdalia [...] Migdalia Leija - 04/13/2023 12:57 PM EDT Ramess would you be able to see this [...] appt. Advised pt she may schedule with LAST SAWYER and would send this to scheduling. Please [...] leave message on voicemail) documented in this encounterHenry County Hospital2023 Progress note Author Lamine Payan [facility] April 08, 2023 12:45pm Note Date/Time April 08, 2023 12 :45pm [facility] [address] [place] [address] Progress Note - Wound Care 04/08/23 1243 MR#: [id number] Acct: [id number] Name: JANESSA BARON Rep #:[id number] : 1950 72 From: Lamine li [...] Charges/Coding Visit Charges Office Visits / Consults: 90826 OV L3 Est Physical Exam Const alert, [...] Start: 03/18/23 11:08 Freq: Status: Active Protocol: JUAN JOSÉ.BRITNEY Activity Type Activity Date Activity User E-sign Co-sign Detail Recorded Client Recorded Date Recorded By Document 03/18/23 11:08 [facility] [id number] 03/18/23 11:20 [facility] Document 03/25/23 10:52 [facility] [id number] 03/25/23 11:02 [facility] Document 04/08/23 10:42 [facility] [id number] 04/08/23 10:51 [facility] 03/18/23 03/25/23 04/08/23 11:08 10:52 10:42 - Today's Visit Information Type of service Follow-up Visit Follow-up Visit Follow-up Visit (Physician/LAST SAWYER (Physician/LAST SAWYER (Physician/LAST SAWYER ) ) ) Arrival Mode Ambulatory, Ambulatory, [...] Recorded Date Recorded By Document 03/18/23 11:08 [facility] [id number] 03/18/23 11:20 [facility] Document 03/25/23 10:52 [facility] [id number] 03/25/23 11:02 [facility] Document 04/08/23 10:42 [facility] [id number] 04/08/23 10:51 [facility] 03/18/23 03/25/23 04/08/23 11:08 10:52 10:42 [...] Date Recorded By Document 03/18/23 11:34 MW [id number] 03/18/23 11:39 MW Document 03/25/23 11:10 MW [id number] 03/25/23 11:12 MW Document 04/08/23 11:02 MW [...] Date Recorded By Document 03/18/23 11:43 MW [id number] 03/18/23 11:44 MW Document 03/25/23 11:24 DL [id number] 03/25/23 11:25 DL Document 04/08/23 11:07 MW [...] wound center. This note was generated with [facility] dictation software. It may contain incorrectwords, spelling, and punctuation that were not noted in checking the note beforesigning. 04/08/23 1245 <Electronically signed by Lamine Payan MD> Cosigner Signature (if applicable): CC: ~ Signed [facility] Work Phone: 1(822) 156-942308-22-2023 Miscellaneous Notes* Telephone Encounter - Ewa Mclain LPN - 04/06/2023 5:02 PM EDT Patient called requesting the following refill. Requested Prescriptions Pending Prescriptions Disp Refills pioglitazone (ACTOS) 45 mg tablet 90 tablet 3 Sig: Take 1 tablet by mouth once daily. Patient last appointment: 02/22/2023 Patient Phone numbers: [phone] (home) [phone] (work) Request is for script(s) to be escript to [facility] pharmacy. Ewa Mclain LPN documented in this encounterHenry County Hospital08-17-2023 Miscellaneous Notes* Telephone Encounter - Ewa [...] to report they checked with insurance and Klaudia is going to cost $160 per month , so it is basically the same cost as Jardiance. Ewa Mclain LPN April 01, 2023 10:18 AM * Telephone Encounter - Ewa Mclain LPN - 03/31/2023 11:40 AM EDT I spoke with patient Janessa. I told her what Dr Bacon said in his note below. Janessa wrote down the name Klaudia and said she will contact her insurance [...] Dye [Iodine], Lincomycin, Pseudoephedrine, Reglan [Metoclopramide Hcl], Kejhpff-Ela-Yiw Reductase Inhibitors, Tequin [Gatifloxacin], Doxycycline, Sulfamethoxazole, and Trimethoprim (home) [phone] (work) [phone] (cell) Reason for call: Rody called about Janessa's diabetic medication. Patient had triple bypass surgery at [facility] earlier this year. During that time her [...] been captured for this encounter? Yes [facility] [place]. Ewa Mclain LPN documented in this encounterCleveland [id number] Progress note Author Lamine Payan [facility] March 25, 2023 1:03pm Note Date/Time March 25, 2023 1: 03pm [facility] [address] [place] [address] Progress Note - Wound Care 03/25/23 1301 MR#: [id number] Acct: [id number] Name: JANESSA BARON Rep #:[id number] : 1950 72 From: Lamine li [...] Index (BMI) 31.8 Charges/Coding Procedures Integumentary 111xxx-113xx: 75162 Dahlia subq tissue 20 sq cm/< Physical [...] Recorded Date Recorded By Document 03/18/23 11:08 [facility] [id number] 03/18/23 11:20 [facility] Document 03/25/23 10:52 [facility] [id number] 03/25/23 11:02 [facility] 03/18/23 03/25/23 11:08 10:52 - Today's Visit Information Type of service Follow-up Visit Follow-up Visit (Physician/LAST SAWYER (Physician/LAST SAWYER ) ) Arrival Mode Ambulatory, Ambulatory, Walker [...] Numeric Is Patient Pain Free? Yes Yes WC - Nurse 1 - General Ulcer Measurement Start: 03/18/23 11:08 Freq: Status: Active Protocol: Activity Type Activity Date Activity User E-sign Co-sign Detail Recorded Client Recorded Date Recorded By Document 03/18/23 11:08 [facility] [id number] 03/18/23 11:20 [facility] Document 03/25/23 10:52 [facility] [id number] 03/25/23 11:02 [facility] 03/18/23 03/25/23 11:08 10:52 Wound Center Nurse [...] Date Recorded By Document 03/18/23 11:34 MW [id number] 03/18/23 11:39 MW Document 03/25/23 11:10 MW [id number] 03/25/23 11:12 MW 03/18/23 03/25/23 11:34 11:10 Wound Center Nurse 2 #2- R BUTTOCK CLUSTER -Time 11:34 11:11 -Correct Patient Yes Yes -Correct Side, [...] Numeric Is Patient Pain Free? Yes Yes WC - Nurse 3 - General Ulcer D/C NN Start: 03/18/23 11:08 Freq: Status: Active Protocol: Activity Type Activity Date Activity User E-sign Co-sign Detail Recorded Client Recorded Date Recorded By Document 03/18/23 11:43 MW [id number] 03/18/23 11:44 MW Document 03/25/23 11:24 DL [id number] 03/25/23 11:25 DL 03/18/23 03/25/23 11:43 11:24 [...] if needed. This note was generated with [facility] dictation software. It may contain incorrectwords, spelling, and punctuation that were not noted in checking the note beforesigning. 03/25/23 1303 <Electronically signed by Lamine Payan MD> Cosigner Signature (if applicable): CC: ~ Signed [facility] Work Phone: 1(235) 536-876008-03-2023 Progress note Author miles Payan [facility] March 18, 2023 12:35pm Note Date/Time March 18, 2023 12: 35pm [facility] [address] [place] [address] Progress Note - Wound Care 03/18/23 1231 MR#: [id number] Acct: [id number] Name: JANESSA BARON Rep #:[id number] : 1950 72 From: Lamine li [...] Index (BMI) 31.8 Charges/Coding Procedures Integumentary 111xxx-113xx: 24577 Dahlia subq tissue 20 sq cm/< Physical [...] Recorded Date Recorded By Document 03/18/23 11:08 [facility] [id number] 03/18/23 11:20 [facility] 03/18/23 11:08 - Today's Visit Information Type of service Follow-up Visit (Physician/LAST SAWYER ) Arrival Mode Ambulatory, Walker Transfer Assistance [...] Recorded Date Recorded By Document 03/18/23 11:08 [facility] [id number] 03/18/23 11:20 [facility] 03/18/23 11:08 Wound Center Nurse 1 [...] Date Recorded By Document 03/18/23 11:34 MW [id number] 03/18/23 11:39 MW 03/18/23 11:34 Wound Center [...] Date Recorded By Document 03/18/23 11:43 MW [id number] 03/18/23 11:44 MW 03/18/23 11:43 Wound Care [...] a week or sooner if needed. 03/18/23 1235 <Electronically signed by Lamine Payan MD> Cosigner Signature (if applicable): CC: ~ Signed [facility] Work Phone: 1(796) 836-708207-27-2023 History and physical note Author Lamine Payan [facility] March 11, 2023 12:38pm Note Date/Time March 11, 2023 11:3 6am [facility] [address] [place] [address] H&P Exam - Wound Care 03/11/23 1135 MR#: [id number] Acct: [id number] Name: JANESSA BARON Rep #:[id number] : 1950 72 From: Lamine li [...] change in bowel habits, chills or fever. [facility] Medical History (Updated 03/11/23 @ 12:34 [...] allergy symptoms 05/18/18 [History Last Taken Unknown] multivitamin,gt-fzqn-hcrvdmha (Complete Multivitamin tablet) 1 tab PO DAILY [...] DAILY 03/11/23 [History Last Taken Unknown] omega 9-zvh-ksz-fish oil 300 mg-1,000 mg capsule (Fish Oil) [...] [From NyQuil] Allergy Hives Verified 03/11/23 11:15 Kwkfkkv-CJN-MdQ Reductase Allergy Other Verified 01/25/23 12:56 Inhibitor [...] Recorded Date Recorded By Document 03/11/23 10:17 [facility] [id number] 03/11/23 10:35 [facility] 03/11/23 10:17 - Today's Visit Information [...] Pain Free? Yes Communication Assessment Preferred language Yemeni Helper Maintenance Cleaning Required No Able to Read Yes Able [...] in Ability to Perform Denies Any Declines Culture/Rastafari/Geoscience Laboratory Technician Cultural/Rastafari Needs that may affect No Treatment Plan Teaching: Wound Center *Welcome to the Wound Center -Person Taught Patient, Significant Other -Teaching Method Discussion -Response to teaching Verbalize understanding Welcome to the Wound Care Center Yemeni WC - Nurse 1 - General Ulcer Measurement Start: 03/11/23 10:15 Freq: Status: Active Protocol: Activity Type Activity Date Activity User E-sign Co-sign Detail Recorded Client Recorded Date Recorded By Document 03/11/23 10:17 [facility] [id number] 03/11/23 10:35 [facility] 03/11/23 10:17 Wound Center Nurse 1 [...] Date Recorded By Document 03/11/23 10:49 MW [id number] 03/11/23 10:57 MW 03/11/23 10:49 Wound Center [...] 0-10 Numeric Is Patient Pain Free? Yes - Nurse 3 - General Ulcer D/C NN Start: 03/11/23 10:15 Freq: Status: Active Protocol: Activity Type Activity Date Activity User E-sign Co-sign Detail Recorded Client Recorded Date Recorded By Document 03/11/23 11:06 [facility] [id number] 03/11/23 11:08 [facility] 03/11/23 11:06 Wound Care Center Nurse [...] Charges/Coding Visit Charges Office Visits / Consults: 88418 OV L3 New Procedures Integumentary 111xxx-113xx: 44584 Dahlia subq tissue 20 sq cm/< Assessment/Plan [...] Cosigner Signature (if applicable): CC: ~ Signed [facility] Work Phone: 1(655) 255-497607-11-2023 Miscellaneous Notes* Telephone Encounter - Genny Slater MA - 02/23/2023 12:37 PM EDT DENIED, The requested medication/product is excluded from Part D prescription coverage. Unable to notify patient, phone just rang. * Telephone Encounter - Genny Slater MA - 02/23/2023 8:50 AM EDT PENDING, Hydrogel gel [place]: [id number] INDU Cover My Meds documented in this encounterHenry County Hospital07-10-2023 Miscellaneous Notes* Telephone Encounter - Laura Lyons LPN - 02/22/2023 6:01 PM EDT Signed and dated surgical clearance along with patient's last office note successfully faxed today to [facility] at fax number [phone]. Fax confirmation received and all documentation to be scanned into patient's chart. Laura Lyons LPN February 22, 2023 6:03 PM documented in this encounterHenry County Hospital06-28-2023 History of Present illness Narrative* Kali Bacon MD - 02/10/2023 10:40 AM EDT This note was created using Evomailter. Subjective Janessa Baron is a 72 year [...] of buttock, stage 3, unspecified laterality ([facility]) L89.303 Treat wound with honey/hydrocolloid [...] 10, 2023 10:13 AM documented in this encounterHenry County Hospital06-15-2023 Miscellaneous Notes* Telephone Encounter - Genny Slater MA - 01/28/2023 12:50 PM EDT No PA required, plans prefers brand name. * Telephone Encounter - Genny Slater MA - 01/28/2023 6:09 AM EDT PENDING, budesonide-formoterol (SYMBICORT) 160-4.5 mcg/actuation inhaler PA Submitted via [employer] documented in this encounterHenry County Hospital06-05-2023 Miscellaneous Notes* Telephone Encounter - Monica Aburto RN - 01/18/2023 4:13 PM EDT Left detailed VM for pt regarding the results of EGD with orders placed for Diflucan. Asked for return call if any additional questions. Also, pt has viewed this result on [employer]. Monica Aburto RN * Telephone Encounter - Monica Aburto RN - 01/18/2023 4:12 PM EDT ----- Message from Tosin Arredondo DO sent at 01/18/2023 3:49 PM EDT ----- Please review path from EGD with pt which reveals normal small bowel, normal gastric, and +brushings for esophageal madeline. Will treat with diflucan x 14 days. Repeat EGD PRN Thanks cl documented in this encounterHenry County Hospital06-05-2023 Miscellaneous Notes* Telephone Encounter - Spring Shipley LPN - 01/18/2023 10:27 AM EDT Patient is coming in office on 01-27-2023 for 6 month follow up. Patient states she always has lab work drawn before visit. Patient requesting orders Spring Shipley LPN January 18, 2023 10:29 AM documented in this encounterHenry County Hospital06-01-2023 History and physical note * Tosin [...] MAC Additional Comments: None Tosin Arredondo DO documented in this encounterHenry County Hospital05-24-2023 NoteHNO ID: [id number] Author: RT Jackelyn(R) Service: Radiology Author Type: Glass Robot Operator Type: Progress Notes Filed: 01/06/2023 12:04 [...] BY: RT Jackelyn(R) January 06, 2023 12:03 [id number] History of Present illness Narrative* Paulie Hicks [...] 06, 2023 12:03 PM documented in this encounterHenry County Hospital05-12-2023 Telephone encounter Note * Telephone Encounter - Elsie Pedraza APRN - LAST SAWYER - 12/25/2022 3:12 PM EDT Returned patient's [...] the problem continues. PATRICIA Ramirez CNP 12/25/22 [facility] [id number] Miscellaneous Notes* Telephone Encounter - PATRICIA Shine [...] PATRICIA Ramirez CNP 12/25/22 documented in this encounterSSelect Medical TriHealth Rehabilitation [id number] Miscellaneous Notes* Telephone Encounter - Spring Shipley LPN - 12/25/2022 10:37 AM EDT Patient phoned office crying to this nurse that her stomach pain is so bad that she doesn't know what to due, she went to the ER and is unable to get into Dr. Bacon until next Wednesday. Patient stated that [facility] did nothing for her. This nurse [...] 25, 2022 10:41 AM documented in this encounterHenry County Hospital04-27-2023 History of Present illness Narrative* Elsie Pedraza, PATRICIA - LAST SAWYER - 12/10/2022 10:00 AM EDT Images from the original note were not included. [facility]: [facility] [employer] [place] [address] [facility] [address] Dept: [phone] Dept Loc: [phone] Visit type: Established patient Reason for Visit: Post-op and Follow-up Assessment and Plan 1. S/P CABG x 3 2. 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 -Antifungal powder prescribed for under breasts. -Refill of zofran, though nausea has improved. -Doing well with Home Health PT, discussed Cardiac Rehab in [place] when Home PT signs off. -Reviewed home [...] schedule Cardiology appointment with Dr. Rubio in [place]. Patient recovery going well, only complaint is [...] Clavulanic Acid Hives Dayquil Severe + Vapocool [Ofbtziyxgygrq-En-Ag-Apap] Hives Dextromethorphan Hives Doxylamine Hives Iodinated Contrast [...] visit PATRICIA Ramirez CNP documented in this [facility]04-24-2023 Miscellaneous Notes* Telephone Encounter - Laura Lyons [...] 07, 2022 10:20 AM documented in this encounterHenry County Hospital04-18-2023 NoteEducation completed yesterday with [facility]04-18-[facility]23 NoteDischarge Summary: Cardiothoracic Surgery Janessa Baron, 72 y.o., 1950 ADMIT DATE: 11/26/2022 DISCHARGE DATE: 12/01/2022 DISCHARGING SURGEON: Adrianne Sethi MD, Office Number: [phone] PRIMARY CARE PHYSICIAN: KALI BACON TREATMENT TEAM: C Web Developer: VISIT STATUS: Admission CODE STATUS: Full Code SURGERY: 11/26/2022 [place]: CABG x 3 SMITH-LAD, SVG-OM, SVG-RPDA, L [facility] COURSE: Janessa Baron is a 72 [...] Underwent CABG x3 (SMITH-LAD, SVG-OM, SVG-RPDA), E [facility]. Her postoperative course included afib, reverted to [...] kg/m? Recent Labs 11/29/22 0003 11/30/22 0000 04212112/01/22 0005 CREATININE 0.94 1.10* 1.27* 1.17* HGB [...] Your Medications These medications were sent to [facility] [address] [place] [address] Hours: Wednesday to Wednesday 10 am to [...] 500 MG tablet D (more content not included)...[facility]04-18-2023 Note Cardiothoracic Surgery/CCM Progress Note PATIENT NAME: [...] Blood Conservation: None noted in post-operative period C Web Developer: [facility]04-17-2023 NoteReceived referral and reviewed chart. Phase II Cardiac Rehab Referral discussed with Janessa Baron. Cardiac Rehab education provided and reviewed handout. Patient interested but prefers [facility] due to location. Given [facility] information. Patient will contact [facility] to schedule cardiac rehab when appropriate. [facility]04-17-2023 NoteCardiothoracic Surgery/CCM Progress Note PATIENT NAME: [...] Blood Conservation: None noted in post-operative period C Web Developer: [facility] [id number] NoteStart PACC Note Home Health Referral Educated patient and spouse on Home Care and services available. Patient offered choice of available HHC and agreeable to SN/PT services with [facility]. Care Types: [facility] Program Isolation Precautions: No active isolations [...] is noted as yes - consider a MANAGER IT SECURITY evaluation once the patient returns home. START PATIENT REGISTRATION INFORMATION Order Information Order Signing Physician: Adrianne Sethi MD Service Ordered RN ?: Yes Service Ordered PT ?: Yes Service Ordered OT ?: No Service Ordered ST ?: No Service Ordered MANAGER IT SECURITY?:No Service Ordered SENIOR AUDIT MANAGER?: No Following Physician: Adrianne Sethi MD Following Physician Overseeing Physician: (Required for Residents only) Agreeable to Follow? Yes Date/Time of Call 11/29/22 2:02 PM, Spoke with: OFFICE CLOSED Care Coordination SOC Call from [facility] Required?: No Same Day SOC?: No Primary Care Physician: KALI ABCON Primary Care Physician Primary Care Physician Address: [address] [place] [phone] Visit Instructions: N/A Service Discharge Location Type: Home with Home Health Care Service Facility Name: N/A Service Floor Facility: N/A Service Room No: N/A Demographics Patient Last Name: Loraine Patient First Name: Janessa Language/Communication Barrier:NO Service Address: [address] [place] [address] Service City: 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 Discharge Date: 12/01/2022 Referral Source-PACC: (Hospital/Unit): [facility] / T1-102/T1102 A End PACC [facility] [id number] [facility] Respiratory Care Department Progress Note As part [...] Respiratory in the care of this patient, [facility]04-15-2023 [facility] Respiratory Care Department Progress Note Comment or [...] Respiratory in the care of this patient, [facility]04-14-2023 NoteNutrition Assessment Type and Reason for Visit: [...] healthy and diabetes handouts at bedside with [facility] RD phone number. Will return, as able, [...] hx) Fluid Accumulation: No significant fluid accumulation Childhood Teacher Strength: Not Performed Nutrition Assessment: Pt with [...] diabetes diet handouts on bedside table, with [facility] RD phone number Estimated Daily Nutrient Needs: Energy Requirements Based On: Kcal/kg Weight Used for Energy Requirements: [place]vere (25-30 kcal/kg) Weight for Energy Calculation (kg): 52.3 kg Total Energy Requirements (kcals/day): 7031-1734 Weight Used for Protein Requirements: [place]vere (1.2-1.5 g/kg) Weight in Kg Used for [...] 11/10/22, 205# on 09/08/22, 198# on 07/30/22) [place]vere Body Weight (lbs) (Calculated): 115 lbs [place] Body Weight (Kg) (Calculated): 52 kg % [place] Body Weight (Calculated): 179.6 % BMI (kg/m2) [...] to determine Parris Judd RD, LD Contact: *[phone] or via StereotypesLUMOback Ellis Fischel Cancer [id number] NoteCentral Venous Line: Date/Time: 11/26/2022 7:05 AM [...] site was prepped with Chlorhexidine. Size: 8 Polish Length: 16 Catheter type: introducer Number of [...] internal jugular vein.. 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]) Surgeons: [...] discharged once all PACU criteria has been met.[facility] [id number] NotePatient: Janessa Baron Procedure Summary Date: 11/26/22 Room / Location: [address] Operating Room Anesthesia Start: 654 Anesthesia Stop: 1130 Procedures: CABG WITH CHERI (Chest) Echocardiography transesophageal real-time Diagnosis: Atherosclerotic heart disease of redding coronary artery without angina pectoris (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 Adrianne Sethi MD Cardiothoracic SurgeryHutzel Women's Hospital04-13-2023 NoteArterial Line: Date/Time: 11/26/2022 6:55 AM [...] Staffing Performed: SRNA Anesthesiologist: Rainer Goyal MD Resident/IDEA WORKER: PATRICIA Moctezuma CRNAHutzel Women's Hospital04-13-2023 NoteAirway Date/Time: 11/26/2022 6:58 AM Urgency: scheduled Airway not difficult General Information and Staff Patient location during procedure: Procedural Anesthesiologist: Rainer Goyal MD Resident/IDEA WORKER: PATRICIA Moctezuma CRNA Performed: SRNA Indications and Patient Condition Indications [...] from: lips Number of attempts at approach: [address] [place], [place] 4524404-13-2023 NotePA Catheter Placement: Date/Time: 11/26/2022 7:23 AM [...] line secured and line sutured. Procedure was uneventful.[facility]04-13-2023 NoteDATE OF PROCEDURE: 11/26/2022 PREOPERATIVE DIAGNOSIS: Coronary artery disease POSTOPERATIVE DIAGNOSIS: Coronary artery disease PROCEDURE: 1. Coronary artery bypass grafting x 3 - Left internal mammary artery to the left anterior descending - Saphenous vein graft to the obtuse marginal - Saphenous vein graft to the right posterior descending artery 2. Endoscopic vein harvest, left lower extremity SURGEON: Adrianne Sethi MD LEARNING COORDINATOR: RUBIA Berrios COMPLICATIONS: None intra-op CONDITION: Stable DESCRIPTION OF PROCEDURE: The patient was prepped and draped in the appropriate manner, having undergone general endotracheal anesthetic in addition to [place]-Rubi catheter placement, arterial line, and reyes catheter [...] artery bypass: Bypasses were performed to the redding arterial targets using the conduits listed above [...] CHERI: Normal EF Adrianne Sethi MD Cardiothor[facility]Core[facility] [id number] NotePatient: Janessa Baron Procedure Information Date/Time: 11/26/22 0700 Procedures: CABG WITH CHERI (Chest) Echocardiography transesophageal real-time Location: [facility] Operating Room Surgeons: Adrianne Sethi MD [...] IMPRESSION: Sinus rhythm PVCs Borderline left axis deviationSChildren's Hospital of [facility] [id number] Note Comprehensive PreSurgical History and Physical ? 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 female who we are asked to see/evaluate by Dr. Sethi for pre-operative evaluation prior to . ? 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 States her stars coordinator and surgeon are aware. Patient denies hx of CHF, NM, TIA/CVA, COPD, RENE, DVT/PE. Past Medical History: [...] No current facility-administered medi (more content not included)...[place] [id number] NoteComprehensive PreSurgical History and Physical ? 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 female who we are asked to see/evaluate by Dr. Sethi for pre-operative evaluation prior to . ? 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 States her stars coordinator and surgeon are aware. Patient denies hx of CHF, NM, TIA/CVA, COPD, RENE, DVT/PE. Past Medical History: [...] No current facility-administered medi (more content not included)...[facility]04-06-2023 Telephone encounter Note* Telephone Encounter - PATRICIA Shine CNP - 11/19/2022 12:11 PM EDT Surg proc orders placed. Meds sent to [facility] in [place]. PATRICIA Ramirez CNP 11/19/22 [facility] [id number] Miscellaneous Notes* Telephone Encounter - PATRICIA Shine CNP - 11/19/2022 12:11 PM EDT Surg proc orders placed. Meds sent to [facility] in [place]. PATRICIA Ramirez CNP 11/19/22 * Telephone Encounter - Lisa Lantigua MA - 11/18/2022 3:46 PM EDT Patient is scheduled for a CABG and CHERI on 11/26/22 @ 7 am. PAT is 11/20/22 @ [address]pm. Please place surg proc orders. Please e-scribe nasal ointment and mouth rinse. Thank you. documented in this encounterSSelect Medical TriHealth Rehabilitation [id number] Telephone encounter Note* Telephone Encounter - Lisa Lantigua MA - 11/18/2022 3:46 PM EDT Patient is scheduled for a CABG and CHERI on 11/26/22 @ 7 am. PAT is 11/20/22 @ 2pm. Please place surg proc orders. Please e-scribe nasal ointment and mouth rinse. Thank you. [address] [id number] History of Present illness Narrative* Adrianne Sethi MD - 11/18/2022 2:30 PM EDT Images from the original note were not included. [facility] SURGERY [address] [facility] [address] Dept: [phone] Dept Loc: [phone] Visit type: New Reason for Visit: Coronary [...] This note may have been dictated using [employer] Practice Edition 2.6 and/or [employer] Voice Recognition Feature. The document was proofread, however unrecognized voice recognition pipelines superintendent errors may be present. documented in this [facility]04-01-2023 Evaluation note* Diagnosis Onset Date Resolution Status 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 Chest pain acute HTN (hypertension) chronic History of coronary artery bypass graft x November, 3 acute Hyperlipidemia acute Postoperative atrial fibrillation acute HTN (hypertension) chronic [facility] Work Phone: [phone]) 872-243104-01-2023 Evaluation note* Diagnosis Onset Date Resolution Status History of coronary artery bypass graft x November, 3 acute Hyperlipidemia acute Postoperative atrial fibrillation acute HTN (hypertension) chronic DM type 2 (diabetes mellitus, type 2) acute Pressure ulcer of left buttock, stage 2 acute Pressure ulcer of right buttock, stage 2 acute [facility] Work Phone: 1([phone]) 526-940104-01-2023 Evaluation note* Diagnosis Onset Date Resolution Status History of coronary artery bypass graft x 3 Felicity, 202 3 acute Hyperlipidemia acute Postoperative atrial fibrillation acute HTN (hypertension) chronic DM type 2 (diabetes mellitus, type 2) acute Pressure ulcer of left buttock, stage 2 acute Pressure ulcer of right buttock, stage 2 acute DM type 2 (diabetes mellitus, type 2) acute Pressure ulcer of left buttock, stage 2 acute Pressure ulcer of right buttock, stage 2 acute [facility] Work Phone: 1(541) 278-812604-01-2023 Evaluation note* Diagnosis Onset Date Resolution Status History of coronary artery bypass graft x 3 November, acute Hyperlipidemia acute Postoperative atrial fibrillation acute HTN (hypertension) chronic DM type 2 (diabetes mellitus, type 2) acute Pressure ulcer of left buttock, stage 2 acute Pressure ulcer of right buttock, stage 2 acute History of coronary artery bypass graft x 3 November, 3 acute Hyperlipidemia acute Postoperative atrial fibrillation acute HTN (hypertension) chronic DM type 2 (diabetes mellitus, type 2) acute Pressure ulcer of left buttock, stage 2 acute Pressure ulcer of right buttock, stage 2 acute [facility] Work Phone: 1(540) 701-835103-10-2023 Miscellaneous Notes* Telephone Encounter - Spring Shipley LPN - 10/23/2022 2:51 PM EST Last Office Visit: 09-24-2022 Next Scheduled Office Visit: 01-27-2023 Requested Prescriptions Pending Prescriptions Disp Refills albuterol (PROVENTIL) 2.5 mg /3 mL (0.083 %) nebulizer solution 30 mL 3 Sig: INHALE WITH 1 VIAL IN NEBULIZER EVERY SIX HOURS NEEDED Spring Shipley LPN October 23, 2022 2:58 PM documented in this encounterHenry County Hospital02-09-2023 History of Present illness Narrative* Yomaira Mcelroy APRN.YULY - 09/24/2022 9:13 AM EST This note was created using [employer]. Subjective Janessa Baron is a 72 year [...] call the office or send communication via Decoholict for questions or concerns regarding today's appointment or follow up. Yomaira Mcelroy APRN.YULY documented in this encounterHenry County Hospital01-25-2023 Miscellaneous Notes* Telephone Encounter - Laura [...] 09, 2022 6:08 PM documented in this encounterHenry County Hospital01-24-2023 NotePap Smear Specimen AdequacyJanuary 2022 1:34pmComment.Satisfactory for evaluation. Endocervical and/or squamous metaplasticcells (endocervical component)are present.[facility] INTERFACED A#[id number] Medical [facility] [place] on above: Satisfactory for evaluation. Endocervical and/or squamous metaplasticcells (endocervical component)are present.09-08-2022 NotePap Smear Specimen Adequacy September 08, 2022 1:34pmComment.Satisfactory for evaluation. Endocervical and/or squamous metaplasticcells (endocervical component)are present.[facility] INTERFACED A#[id number] Arthur G[facility], Cancer CenterComhawthorn center on above:Satisfactory for evaluation. Endocervical and/or squamous metaplasticcells (endocervical component)are present.09-08-2022 NotePap Smear Specimen AdequacyJanuary 2022 1:34pmComment.Satisfactory for evaluation. Endocervical and/or squamous metaplasticcells (endocervical component)are present.[facility] INTERFACED A#[id number] Arthur [facility], Cancer CenterComhawthorn center on above:Satisfactory for evaluation. Endocervical and/or squamous metaplasticcells (endocervical component)are present.09-08-2022 NotePap Smear Specimen AdequacyJanuary 2022 2:34pmComment.Satisfactory for evaluation. Endocervical and/or squamous metaplasticcells (endocervical component)are present.[facility] INTER[facility]ACED A#[id number] Arthur G.H. Bing, Md, Cancer CenterComment on above:Satisfactory for evaluation. Endocervical and/or squamous metaplasticcells (endocervical component)are present.09-08-2022 NotePap Smear Specimen AdequacyJanuary 2022 2:34pmComment.Satisfactory for evaluation. Endocervical and/or squamous metaplasticcells (endocervical component)are present.[facility] INTERFACED A#[id number] Arthur G.H. [facility], Cancer CenterComhawthorn center on above:Satisfactory for evaluation. Endocervical and/or squamous metaplasticcells (endocervical component)are present.09-08-2022 NotePap Smear Specimen AdequacyJanuary 2022 2:34pmComment.Satisfactory for evaluation. Endocervical and/or squamous metaplasticcells (endocervical component)are present.[facility] INTERFACED A#[id number] Arthur G.[facility]. [facility], Cancer CenterComhawthorn center on above:Satisfactory for evaluation. Endocervical and/or squamous metaplasticcells (endocervical component)are present.07-30-2022 History of Present illness Narrative* Kali Bacon MD - 07/30/2022 9:28 AM EST This note was created using [employer]. Subjective Janessa Baron is a 71 year [...] kg/(m^2). Kali Bacon MD documented in this encounterHenry County Hospital11-15-2022 Nurse Note* Nicolette Castro - 06/30/2022 7:57 AM EST Eugenie at [facility] is faxing A1C from 12-17-21 documented in this encounterHenry County Hospital07-22-2022 Miscellaneous Notes* Telephone Encounter - Spring Shipley LPN - 03/06/2022 10:[address] Woodruff office called this nurse stating that patient is requesting a sleep assessment. This nurse left message for patient to call office Spring Shipley LPN March 06, 2022 11:00 AM documented in this [facility] HospitalDis[facility] Author Beltran Miranda [facility] October 08, 2022 5:46am Note Date/Time October 08, 2022 5:37am [facility] Medical Records Department [address] [place] [address] Emergency Department Summary 10/08/22 MR#: [id number] Acct: [id number] Name: JANESSA BARON Rep #:[id number] 8 : 1950 72 From: Beltran Miranda [...] discomfort is thesame as it has been [facility] Medical History Arthritis Asthma Carotid [...] PO DAILY 05/18/18 [History Last Taken Unknown] multivitamin,yf-xnkp-izhsrftu (Complete Multivitamin tablet) 1 tab PO DAILY [...] 37.9 L Lymph % (Auto) 52.2 H [place] % (Auto) 7.4 Eos % (Auto) 1.8 [...] (Auto) Neut % (Auto) Lymph % (Auto) [place] % (Auto) Eos % (Auto) Baso % [...] Triage Chief Complaint: Chest Pain ED Provider: Beltran Miranda Dx/Rx/DC Orders Clinical Impression: Accelerated hypertension, DM type 2 (diabetes mellitus, type 2), Nonspecific chest pain, Hypomagnesemia, PVC (premature ventricular contraction) Instructions: Controlling High Blood Pressure, ED Chest Pain, Uncertain Cause Prescriptions: New magnesium oxide 400 mg (241.3 mg magnesium) tablet 400 mg PO DAILY 14 Days Qty: 14 0RF No Action multivitamin,ji-chsu-ftzkfatp tablet tablet 1 tab PO DAILY omeprazole [...] your Primary Care Provider. Call [facility] ([phone]) or report to the closest Emergency Room. Call 911 if necessary. 10/08/22 0546 <Electronically signed by Beltran Miranda DO> Cosigner Signature (if applicable): CC: Dr. Kali Bacon MD ~ Signed [facility] Work Phone: Discharge summary Author Dr. Perez [facility] December 22, 2022 5:41am Note Date/Time December 22, 2022 4:09am [facility] Medical Records Department [address] [place] [address] Emergency Department Summary 12/22/22 MR#: [id number] Acct: [id number] Name: JANESSA BARON Rep #:[id number] 1 : 1950 72 From: Al Perez [...] She states she tried simethicone and then Belia-Mears and she cannot stop. She feels a little bloated. She has no other symptoms. She had a CABG 4.5 weeks ago at [facility]. She states she has been recovering well. [...] having normal bowel movements and urinating normally. [facility] Medical History Arthritis Asthma Carotid stenosis [...] PO DAILY 05/18/18 [History Last Taken Unknown] multivitamin,qe-vucr-wvsfnoru (Complete Multivitamin tablet) 1 tab PO DAILY [...] [From NyQuil] Allergy Hives Verified 11/04/22 09:25 Pwdgwap-GDF-BnY Reductase Allergy Other Verified 11/30/22 13:52 Inhibitor [...] % (Auto) 51.2 Lymph % (Auto) 31.0 [place] % (Auto) 10.2 H Eos % (Auto) [...] Signed: Ronnie Sun MD at 5:05 EDT , Rhythm Strip Rhythm Strip: Sinus Rhythm [...] Belching Instructions: Low-Fiber Diet Prescriptions: No Action multivitamin,ey-yvjo-zklxktvb tablet tablet 1 tab PO DAILY Zyrtec [...] your Primary Care Provider. Call [facility] ([phone]) or report to the closest Emergency Room. Call 911 if necessary. 12/22/22 0507 <Electronically signed by Al Perez MD> Cosigner Signature (if applicable): CC: Dr. Kali Bacon MD ~ Signed [facility] Work Phone: Evaluation noteNo assessment information available [facility] Work Phone: evaluation note* Diagnosis Wellness examination- Primary Essential (primary) hypertension Unspecified essential hypertension Hypercholesterolemia Pure hypercholesterolemia 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) Type II or unspecified type diabetes mellitus without mention of complication, not stated as uncontrolled Mild intermittent asthma without complication Unspecified asthma Polyarthralgia Pain in joint, multiple sites documented in this encounter [facility] note* Diagnosis Onset Date Resolution Status 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 Encounter for routine gynecological examination noneactive [facility] Work Phone: evaluation note* Diagnosis Acute pain of left shoulder- Primary documented in this encounter [facility] note* Diagnosis Onset Date Resolution Status 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 Encounter for routine gynecological examination noneactive 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 Chest pain acute HTN (hypertension) chronic [facility] Work Phone: evaluation note* Diagnosis Coronary 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redding coronary artery of redding heart with other form of angina pectoris (HCC)- Primary Atherosclerotic heart disease of redding coronary artery without angina pectoris documented in this encounter [facility] note* Diagnosis 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)- Primary Type II or unspecified type diabetes mellitus without mention of complication, not stated as uncontrolled documented in this encounter [facility] note* Diagnosis S/P CABG x 3- Primary Postsurgical aortocoronary bypass status Coronary 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redding coronary artery of redding heart with other form of angina pectoris (HCC) documented in this encounter [facility] note* Diagnosis SOB (shortness of breath) Shortness of breath documented in this encounter [facility] note* Diagnosis Pressure injury of buttock, stage 3, unspecified laterality (HCC)- Primary documented in this encounter [facility] note* Diagnosis 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)- Primary Type II or unspecified type diabetes mellitus without mention of complication, not stated as uncontrolled documented in this encounter [facility] note* Diagnosis UTI symptoms- Primary Other symptoms involving urinary system Otitis externa of both ears, unspecified chronicity, unspecified type documented in this encounter [facility] note* Diagnosis Belching- Primary Flatulence, eructation, and gas pain Bloating Flatulence, eructation, and gas pain Bile reflux gastritis Other specified gastritis without mention of hemorrhage documented in this encounter [facility]* Diagnosis Urinary frequency- Primary [facility]* Diagnosis Skin yeast infection- Primary Candidiasis of skin and nails documented in this encounter [facility] note* Diagnosis Belching symptom Flatulence, eructation, and gas pain [facility]* Diagnosis Belching symptom Flatulence, eructation, and gas pain [facility]* Diagnosis Rash- Primary Rash and other nonspecific skin eruption Tinea cruris Dermatophytosis of groin and perianal area [facility]* Diagnosis Hypertension, unspecified type- Primary [facility]* Diagnosis Hypertension, essential- Primary Unspecified essential hypertension Pure hypercholesterolemia documented in this encounter [facility] note* Diagnosis Wellness examination- Primary Encounter for screening for depression Encounter for counseling regarding advance directives Hypertension, unspecified type Essential (primary) hypertension Unspecified essential hypertension Arteriosclerosis of coronary artery Coronary atherosclerosis of unspecified type of vessel, redding or graft Paroxysmal atrial fibrillation (HCC) Atrial fibrillation 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) Screening for deficiency anemia Screening for other and unspecified deficiency anemia Pure hypercholesterolemia documented in this encounter [facility]* Diagnosis Onset Date Resolution Status ASCUS with positive high risk HPV cervical acute Candidal dermatitis acute 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 OAB (overactive bladder) acu te Encounter for routine gynecological examination noneactive [facility] Work Phone: Evaluation note* Diagnosis Onset Date Resolution Status ASCUS with positive high risk HPV cervical acute Candidal dermatitis acute LGSIL (low grade squamous in traepithelial dysplasia) acute OAB (overactive bladder) acu te Encounter for routine gynecological examination noneactive History of coronary artery bypass graft x 3 November, 3 acute Hyperlipidemia acute Left carotid bruit acute Postoperative atrial fibrillation acute HTN (hypertension) chronic [facility] Work Phone: Evaluation note* Diagnosis Rash- Primary Rash and other nonspecific skin eruption documented in this encounter [facility]* Diagnosis Onset Date Resolution [...] acute HTN (hypertension) chronic Carotid stenosis acute 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) Type II or unspecified type diabetes mellitus without mention of complication, not stated as uncontrolled Arteriosclerosis of coronary artery Coronary atherosclerosis of unspecified type of vessel, redding or graft Paroxysmal atrial fibrillation (HCC) Atrial fibrillation Mild intermittent asthma without complication Unspecified asthma Polyarthralgia Pain in joint, multiple sites documented [facility] this encounter [facility]* Diagnosis Type 2 diabetes mellitus without complication, without long-term current use of insulin (HCC) documented in this encounter [facility]* Diagnosis Hypertension, unspecified type- Primary Type 2 diabetes mellitus without complication, without long-term current use of insulin (HCC) Pure hypercholesterolemia 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) Type II or unspecified type diabetes mellitus without mention of complication, not stated as uncontrolled Arteriosclerosis of coronary artery Coronary atherosclerosis of unspecified type of vessel, redding or graft Paroxysmal atrial fibrillation (HCC) Atrial fibrillation Stenosis of carotid artery, unspecified laterality Internal carotid artery stent present Side effect of medication documented [facility] this encounter [facility]* Diagnosis Anemia, unspecified type- Primary [facility] Iron deficiency anemia, unspecified iron deficiency anemia type- Primary [facility]* Diagnosis Preop examination- Primary Preoperative examination, unspecified Degeneration of intervertebral disc of lumbar region with discogenic back pain Anemia, unspecified type documented in this encounter [facility]* Diagnosis Iron deficiency anemia, unspecified iron deficiency anemia type- Primary [facility] Diagnosis Iron deficiency anemia, unspecified iron deficiency anemia type- Primary [facility]* Diagnosis Iron deficiency anemia, unspecified iron deficiency anemia type- Primary documented [facility] this encounter [facility]* Diagnosis Frequency of urination- Primary Urinary frequency [facility]* Diagnosis 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)- Primary Type II or unspecified type diabetes mellitus without mention of complication, not stated as uncontrolled Change in mole documented [facility] this encounter [facility]* Diagnosis Iron deficiency anemia, unspecified iron deficiency anemia type- Primary Anemia, unspecified type documented [facility] this encounter [facility]* Diagnosis Iron deficiency anemia, unspecified iron deficiency anemia type- Primary [facility] Diagnosis Other iron deficiency anemia- Primary Iron deficiency anemia, unspecified iron deficiency anemia type [facility] Diagnosis Iron deficiency anemia, unspecified iron deficiency anemia type- Primary [facility] Diagnosis Family history of colon cancer- Primary Family history of malignant neoplasm of gastrointestinal tract Iron deficiency anemia, unspecified iron deficiency anemia type [facility] Diagnosis URI, acute- Primary Acute upper respiratory infections of unspecified site Asthma with acute exacerbation, unspecified asthma severity, unspecified whether persistent [facility] Diagnosis Change in mole- Primary [facility] Diagnosis Encounter for support and coordination of transition of care- Primary Acute pyelonephritis Acute pyelonephritis without lesion of renal medullary necrosis Sepsis due to Escherichia coli without acute organ dysfunction (HCC) Type 2 diabetes mellitus without complication, without long-term current use of insulin ([facility]) Visit for suture removal Encounter for removal of sutures [facility] Diagnosis Vaginal itching- Primary Pruritus of genital organs H/O pyelonephritis Personal history of urinary (tract) infection [facility] Diagnosis Iron deficiency anemia, unspecified iron deficiency anemia type- Primary Other iron deficiency anemia [facility] Diagnosis Other dietary vitamin B12 deficiency anemia- Primary Iron deficiency anemia, unspecified iron deficiency anemia type Other iron deficiency anemia [facility] Diagnosis Other dietary vitamin B12 deficiency anemia- Primary [facility] Diagnosis Iron deficiency anemia, unspecified iron deficiency anemia type Family history of colon cancer Family history of malignant neoplasm of gastrointestinal tract [facility] Diagnosis Right arm pain- Primary Pain in limb Muscle strain of right upper arm, initial encounter Anemia due to vitamin B12 deficiency, unspecified B12 deficiency type Right arm pain Pain in limb [facility] Diagnosis Right arm pain Pain in limb [facility] Diagnosis Other dietary vitamin B12 deficiency anemia- Primary [facility] Diagnosis Other dietary vitamin B12 deficiency anemia- Primary [facility] Diagnosis Iron deficiency anemia, unspecified iron deficiency anemia type- Primary Other dietary vitamin B12 deficiency anemia [facility] Diagnosis Type 2 diabetes mellitus without complication, without long-term current use of insulin (HCC) [facility] Diagnosis Other dietary vitamin B12 deficiency anemia- Primary [facility] Diagnosis Preop examination- Primary Preoperative examination, unspecified Hypomagnesemia 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 and lower extremity pain Arteriosclerosis of coronary artery Coronary atherosclerosis of unspecified type of vessel, redding or graft Essential (primary) hypertension Unspecified essential hypertension Type 2 diabetes mellitus without complication, without long-term current use of insulin (HCC) Anemia due to vitamin B12 deficiency, unspecified B12 deficiency type [facility] Diagnosis Hypomagnesemia- Primary Disorders of magnesium metabolism [facility] Additional Instructions Please continue your blood pressure medication as directed by your doctor but please keep track of it once a day to ensure you do not need any further medication added. If you have any further concerns or worsening of symptoms please return to the ER for repeat evaluation [facility] Work Phone: Hospital Discharge instructions Additional Instructions Some foods and drinks can also cause more frequent belching. These include carbonated drinks, alcohol, and foods high in starch, sugar, or fiber that cause gas. Common culprits include: beans lentils broccoli peas onions cabbage cauliflower bananas raisins whole-wheat breadOhiohealth Arthur [facility], [facility] Work Phone: Reason for referral (narrative)* Diagnostic Procedure Only (Routine) - Closed Specialty Diagnoses / Procedures Referred By Donavon t Referred To Contact XR IMAGING Diagnoses Belching symptom Procedures XR ABDOMEN 2V ROUTINE SUPINE W UPRIGHT/DECUB/CTL RADIOLOGIC EXAM ABDOMEN 2 [place] [address] [place] [address] [place] [address] Referral ID Status Reason Start Date Expiration Date V isits Requested Visits Authorized [id number] Closed Auto-Generate d Referral 01/06/2023 02/05/2024 1 1 [facility] for referral (narrative)* Outpatient Procedure (Routine) - Closed Specialty Diagnoses / Procedures Referred By Gwenac t Referred To Contact Diagnoses Belching symptom Procedures EGD DIAGNOSTIC ESOPHAGOGASTRODUODENOSCOPY TR[place] [address] [place] [address] Av Procedure [address] [place] [address] Referral ID Status Reason Start Date Expiration Date V isits Requested Visits Authorized [id number] Closed Auto-Generate d Referral 01/14/2023 04/14/2023 1 1 [facility] for referral (narrative)* Outpatient Procedure (Routine) - New Request Specialty Diagnoses / Procedures Referred By Contac t Referred To Contact [facility] Diagnoses Iron deficiency anemia, unspecified iron deficiency anemia type Family history of colon cancer Procedures COLONOSCOPY DIAGNOSTIC COLONOSCOPY FLX DX W/COLLJ SPEC WHEN Halie Law APRN.CNP [address] [place] [address] [facility] [address] [place] [address] Referral ID Status Reason Start Date Expiration Date Visits Requested Visits Authorized [id number] New Request Auto-Generat ed Referral 09/14/2024 09/14/2025 1 1 * Outpatient Procedure (Routine) - New Request Specialty Diagnoses / Procedures Referred By Contac t Referred To Contact [facility] Diagnoses Iron deficiency anemia, unspecified iron deficiency anemia type Procedures EGD DIAGNOSTIC ESOPHAGOGASTRODUODENOSC OPY TRANSORAL DIAGNOSTIC Halie Jin APRN.LAST [employer] [address] [place] [address] [facility] [address] [place] [address] Referral ID Status Reason Start Date Expiration Date Visits Requested Visits Authorized [id number] New Request Auto-Generat ed Referral 09/14/2024 09/14/2025 1 1 [facility] for referral (narrative)No reason for referral information availableWTwin City [facility] Work Phone: Reason for visit Narrative* Outpatient Procedure (Routine) - Closed Specialty Diagnoses / Procedures Referred By Contac t Referred To Contact Diagnoses Belching symptom Procedures EGD DIAGNOSTIC ESOPHAGOGASTRODUODENOSCOPY [place] [address] [place] [address] Av Procedure [address] [place] [address] Referral ID Status Reason Start Date Expiration Date V isits Requested Visits Authorized [id number] Closed Auto-Generate d Referral 01/14/2023 04/14/2023 1 1 [facility] for visit Narrative* Outpatient Procedure (Routine) - Closed Specialty Diagnoses / Procedures Referred By Contac t Referred To Contact Diagnoses Iron deficiency anemia, unspecified iron deficiency anemia type Family history of colon cancer Procedures COLONOSCOPY DIAGNOSTIC COLONOSCOPY FLX DX W/COLLJ SPEC WHEN PFRMHalie Brown APRN.LAST [employer]WYER [address] [place] [address] Phone: tel: fax: [facility] [address] [place] [address] Referral ID Status Reason Start Date Expiration Date V isits Requested Visits Authorized [id number] Closed Auto-Generate d Referral 11/15/2024 09/14/2025 1 1 [facility] for visit Narrative* Diagnostic Procedure Only (Routine) - Closed Specialty Diagnoses / Procedures Referred By Contac t Referred To Contact XR IMAGING Diagnoses Right arm pain Procedures XR HUMERUS 2V AP/LAT RIGHT RADEX HUMERUS MINIMUM 2 VIEWS Kali Bacon MD [address] [place] [address] Phone: tel: fax: [place] [address] Referral ID Status Reason Start Date Expiration Date V isits Requested Visits Authorized [id number] Closed Auto-Generate d Referral 11/20/2024 12/20/2025 1 1 [facility] Chief Complaint and Reason for Visit Chief Complaint UTI, HX FREQ STONES Chief Complaint SCREENING Chief Complaint SCREENING 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) Unspecified abnormal cytological findings in speci Reason for Visit LGSIL (low grade squ amous intraepithelial dysplasia) Encounter for routine gynecological examination Chief Complaint SCREENING 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) Unspecified abnormal cytological findings in speci L SHOULDER PAIN cp Reason for Visit LGSIL (low grade squ amous intraepithelial dysplasia) Encounter for routine gynecological examination Chief Complaint 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) Unspecified abnormal cytological findings in speci L SHOULDER PAIN cp Reason for Visit LGSIL (low grade squ amous intraepithelial dysplasia) Encounter for routine gynecological examination Chief Complaint 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) Unspecified abnormal cytological findings in speci L SHOULDER PAIN cp Colposcopy CP (JORDI) CHEST PAIN / CAD Reason for Visit LGSIL (low grade squ amous intraepithelial dysplasia) Encounter for routine gynecological examination LGSIL (low grade squamous intraepithelial dysplasia) Chest pain HTN (hypertension) Chief Complaint 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) Unspecified abnormal cytological findings in speci L SHOULDER PAIN cp Colposcopy CP (JORDI) CHEST PAIN / CAD URINE TOXICOLOGY Reason for Visit LGSIL (low grade squ amous intraepithelial dysplasia) Encounter for routine gynecological examination LGSIL (low grade squamous intraepithelial dysplasia) Chest pain HTN (hypertension) Chief Complaint 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) Unspecified abnormal cytological findings in speci L [...] PRE PROCEDURE PREOP DM wound wound wound [id number], [id number], [id number] Reason for Visit History of coronary artery [...] wound PRE PROCEDURE PREOP DM wound wound [id number], [id number], [id number] 3 M FU wound wound Reason for [...] buttock, stage 2 Chief Complaint SCREENING 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) Reason for Visit ASCUS with positive high risk HPV cervical Candidal dermatitis LGSIL (low grade squamous intraepithelial dysplasia) OAB (overactive bladder) Encounter for routine gynecological examination Chief Complaint SCREENING 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) 6 M FU LEFT BRUIT Reason for Visit ASCUS with positive high risk HPV cervical Candidal dermatitis LGSIL (low grade squamous intraepithelial dysplasia) OAB (overactive bladder) Encounter for routine gynecological examination History of coronary artery bypass graft x 3 Hyperlipidemia Left carotid bruit Postoperative atrial fibrillation HTN (hypertension) Chief Complaint SCREENING 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) 6 M FU LEFT BRUIT CONSULT-CAROTID E-ORDER Reason for Visit ASCUS with positive high risk HPV cervical Candidal dermatitis LGSIL (low grade squamous intraepithelial dysplasia) OAB (overactive bladder) Encounter for routine gynecological examination History of coronary artery bypass graft x 3 Hyperlipidemia Left carotid bruit Postoperative atrial fibrillation HTN (hypertension) Carotid stenosis Chief Complaint SCREENING 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) 6 M FU LEFT BRUIT CONSULT-CAROTID E-ORDER [...] fibrillation September 11, 2024 8 :47am 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) September 18, 2024 3 :21pm OSTEO September [...] fibrillation September 11, 2024 8 :47am 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) September 18, 2024 3 :21pm OSTEO September [...] January 26, 2025 12:4 3pm Family History Relationship Condition Age at Onset Recorded Date/T noam mother Cerebrovascular accident (CVA) Unknown Cardiac disease Unknown sister Malignant neoplasm of colon Unknown Diabetes mellitus Unknown brother Disorder of thyroid Unknown Malignant neoplasm of thyroid gland Unkno wn sister Malignant neoplasm Unknown brother Diabetes mellitus Unknown Advance Directives Documents on File Type Date Recorded Patient Web Analytics Developer Expl anation Advance Directive(s) 09/18/2020 7:55 AM Date Activated Date Inactivated Comments 09/26/2024 6:12 AM 09/29/2024 6:11 PM Question Answer Comments Full Code Order Discussed With: Patient Advance Directive Response Recorded Date/ Time Living Will No May 23 6:34am Power of Sales Recruiting Coordinator No May 23 017 6:34am Documents on File Type Date Recorded Patient Web Analytics Developer Expl anation Advance Directive(s) 09/18/2020 7:55 AM Advance Directive(s) 04/29/2020 8:26 AM Advance Directive(s) 04/12/2020 10:04 AM Documents on File Type Date Recorded Patient Web Analytics Developer Expl anation Advance Directive(s) 09/18/2020 7:55 AM Advance Directive Response Recorded Date/ Time Living Will No May 23 5:34am Power of Sales Recruiting Coordinator No May 23 017 5:34am Advance Directive Response Recorded Date/ Time Living Will No October 08 023 2:04am Power of Sales Recruiting Coordinator No October 08, 2022 2:04am Advance Directive Response Recorded Date/ Time Advance Directives on File Yes November 10, 2022 10:51am Name of Medical Power of Sales Recruiting Coordinator Rody Baron November 10, 2022 10:51am Advance Directives Yes November 10, 023 10:51am Living Will Yes November 10, 2022 10:51am Power of Sales Recruiting Coordinator Yes November 10 10:51am Latest Code Status on File Code Status Date Activated Date Inactivated Comments Full Code 11/26/2022 5:47 AM Latest Code Status on File Code Status Date Activated Date Inactivated Comments Full Code 11/26/2022 5:47 AM 12/01/2022 4:05 PM Documents on File Type Date Recorded Patient Web Analytics Developer Expl anation Advance Directives and Livin g Will 12/02/2022 10:05 AM Advance Directive Response Recorded Date/ Time Advance Directives on File Yes November 10, 2022 10:51am Name of Medical Power of Sales Recruiting Coordinator Rody Baron November 10, 2022 10:51am Name of Medical Power of Sales Recruiting Coordinator Rody Baron December 22, 2022 3:37am Advance Directives Yes November 10 023 10:51am Living Will Yes December 22, 2022 3: 37am Power of Sales Recruiting Coordinator Yes December 22, 2022 3:37am Documents on File Type Date Recorded Patient Web Analytics Developer Expl anation Advance Directives and Livin g Will 12/02/2022 10:05 AM Latest Code Status on File Code Status Date Activated Date Inactivated Comments Full Code 11/26/2022 5:47 AM 12/01/2022 4:05 PM Advance Directive Response Recorded Date/ Time Advance Directives on File Yes November 10, 2022 10:51am Name of Medical Power of Sales Recruiting Coordinator Rody Baron November 10, 2022 10:51am Name of Medical Power of Sales Recruiting Coordinator Rody Baron December 22, 2022 3:37am Name of Medical Power of Sales Recruiting Coordinator Rody baron January 04, 2023 7:22pm Advance Directives Yes November 10, 023 10:51am Living Will Yes January 04, 2023 7 :22pm Power of Sales Recruiting Coordinator Yes January 04, 2023 7:22pm Advance Directive Response Recorded Date/ Time Name of Medical Power of Sales Recruiting Coordinator Rody Baron December 22, 2022 3:37am Name of Medical Power of Sales Recruiting Coordinator Rody baron January 04, 2023 7:22pm Advance Directives Yes November 10 023 10:51am Living Will Yes January 04, 2023 7 :22pm Power of Sales Recruiting Coordinator Yes January 04, 2023 7:22pm Advance Directive Response Recorded Date/ Time Advance Directives Yes November 10 9:51am Living Will Yes January 04, 2023 6 :22pm Power of Sales Recruiting Coordinator Yes January 04, 2023 6:22pm Advance Directive Response Recorded Date/ Time Advance Directives Yes November 10 10:51am Living Will Yes January 04, 2023 7 :22pm Power of Sales Recruiting Coordinator Yes January 04, 2023 7:22pm Advance Directive Response Recorded Date/ Time Living Will No January 25, 2024 1:00pm Power of Sales Recruiting Coordinator No January 24 1:00pm Living Will Yes August 29 9:17am Power of Sales Recruiting Coordinator Yes August 29, 2024 9:17am Name of Medical Power of Sales Recruiting Coordinator SPOUSE August 29, 2024 9:17am Advance Directives Yes November 10 9:51am Advance Directive Response Recorded Date/ Time Living Will No January 25, 2024 2:00pm Power of Sales Recruiting Coordinator No January 24 2:00pm Living Will Yes August 29 10:17am Power of Sales Recruiting Coordinator Yes August 29, 2024 10:17am Name of Medical Power of Sales Recruiting Coordinator SPOUSE August 29, 2024 10:17am Advance Directives Yes November 10 10:51am Advance Directive Response Recorded Date/ Time Living Will No January 25, 2024 2:00pm Do you have a Healthcare Power of Sales Recruiting Coordinator? No January 25, 2024 2:00pm Living Will Yes August 29 10:17am Do you have a Healthcare Power of Sales Recruiting Coordinator? Yes August 29, 2024 10:17am Name of Medical Power of Sales Recruiting Coordinator SPOUSE August 29, 2024 10:17am Advance Directives Yes November 10 10:51am Date Activated Date Inactivated Comments 09/26/2024 6:12 AM 09/29/2024 6:11 PM Question Answer Comments Full Code Order Discussed With: Patient Advance Directive Response Recorded Date/ Time Living Will Yes January 04, 2023 7 :22pm Do you have a Healthcare Power of Sales Recruiting Coordinator? Yes January 04, 2023 7:22pm Advance Directives Yes November 10 10:51am Reason for Referral Specialty Diagnoses / Procedures Referred By Contac t Referred To Contact Kali Bacon MD [address] [place] [address] Referral ID Status Reason Start Date Expiration Date V isits Requested Visits Authorized [id number] Pending Review 1 1 Referral ID Status Reason Start Date Expiration Date V isits Requested Visits Authorized [id number] Pending Review 1 1 Specialty Diagnoses / Procedures Referred By Contac t Referred To Contact Abraham Harris MD [address] [facility], [address] [place] [address] Referral ID Status Reason Start Date Expiration Date Visits Re quested Visits Authorized [id number] Closed 1 1 Specialty Diagnoses / Procedures Referred By Contac t Referred To Contact Elsie Pedraza, MANAGER TRUCK - [employer] [address] [facility] [place] [address] Referral ID Status Reason Start Date Expiration Date Visits Re quested Visits Authorized [id number] Closed 1 1 Specialty Diagnoses / Procedures Referred By Contac t Referred To Contact Diagnoses Iron deficiency anemia, unspecified iron deficiency anemia type Procedures CONSULT TO HEMATOLOGY/ONCOLOGY OFFICE/OUTPATIENT [facility] 60 MINUTES Kali Bacon MD [address] [place] [address] Referral ID Status Reason Start Date Expiration Date Visits Requested Visits Authorized [id number] Authorized PCP Requested Referral 08/22/2024 08/22/2025 1 1 Specialty Diagnoses / Procedures Referred By Contac t Referred To Contact General Surgery Diagnoses Iron deficiency anemia, unspecified iron deficiency anemia type Procedures CONSULT TO GENERAL SURGERY OFFICE/OUTPATIENT [facility] 60 [address]UTES [address] [place] [address] Referral ID Status Reason Start Date Expiration Date Visits Requested Visits Authorized [id number] Authorized PCP Requested Referral 09/05/2024 09/05/2025 1 [...] or prosecute any alcohol or drug abuse patient.[facility] the event this information is protected by the Federal Confidentiality of Alcohol and Drug Abuse Patient Records regulations: The Federal rules restrict any use of the information to criminally investigate or prosecute any alcohol or drug abuse patient.[facility] the event this information is protected by the Federal Confidentiality of Alcohol and Drug Abuse Patient Records regulations: The Federal rules restrict any use of the information to criminally investigate or prosecute any alcohol or drug abuse patient.[facility] the event this information is protected by the Federal Confidentiality of Alcohol and Drug Abuse Patient Records regulations: The Federal rules restrict any use of the information to criminally investigate or prosecute any alcohol or drug abuse patient.[facility] the event this information is protected by the Federal Confidentiality of Alcohol and Drug Abuse Patient Records regulations: The Federal rules restrict any use of the information to criminally investigate or prosecute any alcohol or drug abuse patient.[facility] the event this information is protected by the Federal Confidentiality of Alcohol and Drug Abuse Patient Records regulations: The Federal rules restrict any use of the information to criminally investigate or prosecute any alcohol or drug abuse patient.[facility] the event this information is protected by the Federal Confidentiality of Alcohol and Drug Abuse Patient Records regulations: The Federal rules restrict any use of the information to criminally investigate or prosecute any alcohol or drug abuse patient.[facility] the event this information is protected by the Federal Confidentiality of Alcohol and Drug Abuse Patient Records regulations: The Federal rules restrict any use of the information to criminally investigate or prosecute any alcohol or drug abuse patient.[facility] the event this information is protected by the Federal Confidentiality of Alcohol and Drug Abuse Patient Records regulations: The Federal rules restrict any use of the information to criminally investigate or prosecute any alcohol or drug abuse patient.[facility] the event this information is protected by the Federal Confidentiality of Alcohol and Drug Abuse Patient Records regulations: The Federal rules restrict any use of the information to criminally investigate or prosecute any alcohol or drug abuse patient.[facility] the event this information is protected by the Federal Confidentiality of Alcohol and Drug Abuse Patient Records regulations: The Federal rules restrict any use of the information to criminally investigate or prosecute any alcohol or drug abuse patient.[facility] the event this information is protected by the Federal Confidentiality of Alcohol and Drug Abuse Patient Records regulations: The Federal rules restrict any use of the information to criminally investigate or prosecute any alcohol or drug abuse patient.[facility] the event this information is protected by the Federal Confidentiality of Alcohol and Drug Abuse Patient Records regulations: The Federal rules restrict any use of the information to criminally investigate or prosecute any alcohol or drug abuse patient.[facility] the event this information is protected by the Federal Confidentiality of Alcohol and Drug Abuse Patient Records regulations: The Federal rules restrict any use of the information to criminally investigate or prosecute any alcohol or drug abuse patient.[facility] the event this information is protected by the Federal Confidentiality of Alcohol and Drug Abuse Patient Records regulations: The Federal rules restrict any use of the information to criminally investigate or prosecute any alcohol or drug abuse patient.[facility] HospitalIn the event this information is protected by the Federal Confidentiality of Alcohol and Drug Abuse Patient Records regulations: The Federal rules restrict any use of the information to criminally investigate or prosecute any alcohol or drug abuse patient.[facility] HospitalIn the event this information is protected by the Federal Confidentiality of Alcohol and Drug Abuse Patient Records regulations: The Federal rules restrict any use of the information to criminally investigate or prosecute any alcohol or drug abuse patient.[facility] HospitalIn the event this information is protected by the Federal Confidentiality of Alcohol and Drug Abuse Patient Records regulations: The Federal rules restrict any use of the information to criminally investigate or prosecute any alcohol or drug abuse patient.[facility] HospitalIn the event this information is protected by the Federal Confidentiality of Alcohol and Drug Abuse Patient Records regulations: The Federal rules restrict any use of the information to criminally investigate or prosecute any alcohol or drug abuse patient.[facility] HospitalIn the event this information is protected by the Federal Confidentiality of Alcohol and Drug Abuse Patient Records regulations: The Federal rules restrict any use of the information to criminally investigate or prosecute any alcohol or drug abuse patient.[facility] HospitalIn the event this information is protected by the Federal Confidentiality of Alcohol and Drug Abuse Patient Records regulations: The Federal rules restrict any use of the information to criminally investigate or prosecute any alcohol or drug abuse patient.[facility] HospitalIn the event this information is protected by the Federal Confidentiality of Alcohol and Drug Abuse Patient Records regulations: The Federal rules restrict any use of the information to criminally investigate or prosecute any alcohol or drug abuse patient.[facility] HospitalIn the event this information is protected by the Federal Confidentiality of Alcohol and Drug Abuse Patient Records regulations: The Federal rules restrict any use of the information to criminally investigate or prosecute any alcohol or drug abuse patient.[facility] HospitalIn the event this information is protected by the Federal Confidentiality of Alcohol and Drug Abuse Patient Records regulations: The Federal rules restrict any use of the information to criminally investigate or prosecute any alcohol or drug abuse patient.[facility] HospitalIn the event this information is protected by the Federal Confidentiality of Alcohol and Drug Abuse Patient Records regulations: The Federal rules restrict any use of the information to criminally investigate or prosecute any alcohol or drug abuse patient.[facility] HospitalIn the event this information is protected by the Federal Confidentiality of Alcohol and Drug Abuse Patient Records regulations: The Federal rules restrict any use of the information to criminally investigate or prosecute any alcohol or drug abuse patient.[facility] HospitalIn the event this information is protected by the Federal Confidentiality of Alcohol and Drug Abuse Patient Records regulations: The Federal rules restrict any use of the information to criminally investigate or prosecute any alcohol or drug abuse patient.[facility] HospitalIn the event this information is protected by the Federal Confidentiality of Alcohol and Drug Abuse Patient Records regulations: The Federal rules restrict any use of the information to criminally investigate or prosecute any alcohol or drug abuse patient.[facility] HospitalIn the event this information is protected by the Federal Confidentiality of Alcohol and Drug Abuse Patient Records regulations: The Federal rules restrict any use of the information to criminally investigate or prosecute any alcohol or drug abuse patient.[facility] HospitalIn the event this information is protected by the Federal Confidentiality of Alcohol and Drug Abuse Patient Records regulations: The Federal rules restrict any use of the information to criminally investigate or prosecute any alcohol or drug abuse patient.[facility] HospitalIn the event this information is protected by the Federal Confidentiality of Alcohol and Drug Abuse Patient Records regulations: The Federal rules restrict any use of the information to criminally investigate or prosecute any alcohol or drug abuse patient.[facility] HospitalIn the event this information is protected by the Federal Confidentiality of Alcohol and Drug Abuse Patient Records regulations: The Federal rules restrict any use of the information to criminally investigate or prosecute any alcohol or drug abuse patient.[facility] HospitalIn the event this information is protected by the Federal Confidentiality of Alcohol and Drug Abuse Patient Records regulations: The Federal rules restrict any use of the information to criminally investigate or prosecute any alcohol or drug abuse patient.[facility] HospitalIn the event this information is protected by the Federal Confidentiality of Alcohol and Drug Abuse Patient Records regulations: The Federal rules restrict any use of the information to criminally investigate or prosecute any alcohol or drug abuse patient.[facility] HospitalIn the event this information is protected by the Federal Confidentiality of Alcohol and Drug Abuse Patient Records regulations: The Federal rules restrict any use of the information to criminally investigate or prosecute any alcohol or drug abuse patient.[facility] HospitalIn the event this information is protected by the Federal Confidentiality of Alcohol and Drug Abuse Patient Records regulations: The Federal rules restrict any use of the information to criminally investigate or prosecute any alcohol or drug abuse patient.[facility] HospitalIn the event this information is protected by the Federal Confidentiality of Alcohol and Drug Abuse Patient Records regulations: The Federal rules restrict any use of the information to criminally investigate or prosecute any alcohol or drug abuse patient.[facility] HospitalIn the event this information is protected by the Federal Confidentiality of Alcohol and Drug Abuse Patient Records regulations: The Federal rules restrict any use of the information to criminally investigate or prosecute any alcohol or drug abuse patient.[facility] HospitalIn the event this information is protected by the Federal Confidentiality of Alcohol and Drug Abuse Patient Records regulations: The Federal rules restrict any use of the information to criminally investigate or prosecute any alcohol or drug abuse patient.[facility] HospitalIn the event this information is protected by the Federal Confidentiality of Alcohol and Drug Abuse Patient Records regulations: The Federal rules restrict any use of the information to criminally investigate or prosecute any alcohol or drug abuse patient.[facility] HospitalIn the event this information is protected by the Federal Confidentiality of Alcohol and Drug Abuse Patient Records regulations: The Federal rules restrict any use of the information to criminally investigate or prosecute any alcohol or drug abuse patient.[facility] HospitalIn the event this information is protected by the Federal Confidentiality of Alcohol and Drug Abuse Patient Records regulations: The Federal rules restrict any use of the information to criminally investigate or prosecute any alcohol or drug abuse patient.[facility] HospitalIn the event this information is protected by the Federal Confidentiality of Alcohol and Drug Abuse Patient Records regulations: The Federal rules restrict any use of the information to criminally investigate or prosecute any alcohol or drug abuse patient.[facility] HospitalIn the event this information is protected by the Federal Confidentiality of Alcohol and Drug Abuse Patient Records regulations: The Federal rules restrict any use of the information to criminally investigate or prosecute any alcohol or drug abuse patient.[facility] HospitalIn the event this information is protected by the Federal Confidentiality of Alcohol and Drug Abuse Patient Records regulations: The Federal rules restrict any use of the information to criminally investigate or prosecute any alcohol or drug abuse patient.[facility] HospitalIn the event this information is protected by the Federal Confidentiality of Alcohol and Drug Abuse Patient Records regulations: The Federal rules restrict any use of the information to criminally investigate or prosecute any alcohol or drug abuse patient.[facility] HospitalIn the event this information is protected by the Federal Confidentiality of Alcohol and Drug Abuse Patient Records regulations: The Federal rules restrict any use of the information to criminally investigate or prosecute any alcohol or drug abuse patient.[facility] HospitalIn the event this information is protected by the Federal Confidentiality of Alcohol and Drug Abuse Patient Records regulations: The Federal rules restrict any use of the information to criminally investigate or prosecute any alcohol or drug abuse patient.[facility] HospitalIn the event this information is protected by the Federal Confidentiality of Alcohol and Drug Abuse Patient Records regulations: The Federal rules restrict any use of the information to criminally investigate or prosecute any alcohol or drug abuse patient.[facility] HospitalIn the event this information is protected by the Federal Confidentiality of Alcohol and Drug Abuse Patient Records regulations: The Federal rules restrict any use of the information to criminally investigate or prosecute any alcohol or drug abuse patient.[facility] HospitalIn the event this information is protected by the Federal Confidentiality of Alcohol and Drug Abuse Patient Records regulations: The Federal rules restrict any use of the information to criminally investigate or prosecute any alcohol or drug abuse patient.[facility] HospitalIn the event this information is protected by the Federal Confidentiality of Alcohol and Drug Abuse Patient Records regulations: The Federal rules restrict any use of the information to criminally investigate or prosecute any alcohol or drug abuse patient.[facility] HospitalIn the event this information is protected by the Federal Confidentiality of Alcohol and Drug Abuse Patient Records regulations: The Federal rules restrict any use of the information to criminally investigate or prosecute any alcohol or drug abuse patient.[facility] HospitalIn the event this information is protected by the Federal Confidentiality of Alcohol and Drug Abuse Patient Records regulations: The Federal rules restrict any use of the information to criminally investigate or prosecute any alcohol or drug abuse patient.[facility] HospitalIn the event this information is protected by the Federal Confidentiality of Alcohol and Drug Abuse Patient Records regulations: The Federal rules restrict any use of the information to criminally investigate or prosecute any alcohol or drug abuse patient.[facility] HospitalIn the event this information is protected by the Federal Confidentiality of Alcohol and Drug Abuse Patient Records regulations: The Federal rules restrict any use of the information to criminally investigate or prosecute any alcohol or drug abuse patient.[facility] HospitalIn the event this information is protected by the Federal Confidentiality of Alcohol and Drug Abuse Patient Records regulations: The Federal rules restrict any use of the information to criminally investigate or prosecute any alcohol or drug abuse patient.[facility] HospitalIn the event this information is protected by the Federal Confidentiality of Alcohol and Drug Abuse Patient Records regulations: The Federal rules restrict any use of the information to criminally investigate or prosecute any alcohol or drug abuse patient.[facility] HospitalIn the event this information is protected by the Federal Confidentiality of Alcohol and Drug Abuse Patient Records regulations: The Federal rules restrict any use of the information to criminally investigate or prosecute any alcohol or drug abuse patient.[facility] HospitalIn the event this information is protected by the Federal Confidentiality of Alcohol and Drug Abuse Patient Records regulations: The Federal rules restrict any use of the information to criminally investigate or prosecute any alcohol or drug abuse patient.[facility] HospitalIn the event this information is protected by the Federal Confidentiality of Alcohol and Drug Abuse Patient Records regulations: The Federal rules restrict any use of the information to criminally investigate or prosecute any alcohol or drug abuse patient.[facility] HospitalIn the event this information is protected by the Federal Confidentiality of Alcohol and Drug Abuse Patient Records regulations: The Federal rules restrict any use of the information to criminally investigate or prosecute any alcohol or drug abuse patient.[facility] HospitalIn the event this information is protected by the Federal Confidentiality of Alcohol and Drug Abuse Patient Records regulations: The Federal rules restrict any use of the information to criminally investigate or prosecute any alcohol or drug abuse patient.[facility] HospitalIn the event this information is protected by the Federal Confidentiality of Alcohol and Drug Abuse Patient Records regulations: The Federal rules restrict any use of the information to criminally investigate or prosecute any alcohol or drug abuse patient.[facility] HospitalIn the event this information is protected by the Federal Confidentiality of Alcohol and Drug Abuse Patient Records regulations: The Federal rules restrict any use of the information to criminally investigate or prosecute any alcohol or drug abuse patient.[facility] HospitalIn the event this information is protected by the Federal Confidentiality of Alcohol and Drug Abuse Patient Records regulations: The Federal rules restrict any use of the information to criminally investigate or prosecute any alcohol or drug abuse patient.[facility] HospitalIn the event this information is protected by the Federal Confidentiality of Alcohol and Drug Abuse Patient Records regulations: The Federal rules restrict any use of the information to criminally investigate or prosecute any alcohol or drug abuse patient.[facility] HospitalIn the event this information is protected by the Federal Confidentiality of Alcohol and Drug Abuse Patient Records regulations: The Federal rules restrict any use of the information to criminally investigate or prosecute any alcohol or drug abuse patient.[facility] HospitalIn the event this information is protected by the Federal Confidentiality of Alcohol and Drug Abuse Patient Records regulations: The Federal rules restrict any use of the information to criminally investigate or prosecute any alcohol or drug abuse patient.[facility] HospitalIn the event this information is protected by the Federal Confidentiality of Alcohol and Drug Abuse Patient Records regulations: The Federal rules restrict any use of the information to criminally investigate or prosecute any alcohol or drug abuse patient.[facility] HospitalIn the event this information is protected by the Federal Confidentiality of Alcohol and Drug Abuse Patient Records regulations: The Federal rules restrict any use of the information to criminally investigate or prosecute any alcohol or drug abuse patient.[facility] HospitalIn the event this information is protected by the Federal Confidentiality of Alcohol and Drug Abuse Patient Records regulations: The Federal rules restrict any use of the information to criminally investigate or prosecute any alcohol or drug abuse patient.[facility] HospitalIn the event this information is protected by the Federal Confidentiality of Alcohol and Drug Abuse Patient Records regulations: The Federal rules restrict any use of the information to criminally investigate or prosecute any alcohol or drug abuse patient.[facility] HospitalIn the event this information is protected by the Federal Confidentiality of Alcohol and Drug Abuse Patient Records regulations: The Federal rules restrict any use of the information to criminally investigate or prosecute any alcohol or drug abuse patient.[facility] HospitalIn the event this information is protected by the Federal Confidentiality of Alcohol and Drug Abuse Patient Records regulations: The Federal rules restrict any use of the information to criminally investigate or prosecute any alcohol or drug abuse patient.[facility] HospitalIn the event this information is protected by the Federal Confidentiality of Alcohol and Drug Abuse Patient Records regulations: The Federal rules restrict any use of the information to criminally investigate or prosecute any alcohol or drug abuse patient.[facility] HospitalIn the event this information is protected by the Federal Confidentiality of Alcohol and Drug Abuse Patient Records regulations: The Federal rules restrict any use of the information to criminally investigate or prosecute any alcohol or drug abuse patient.[facility] HospitalIn the event this information is protected by the Federal Confidentiality of Alcohol and Drug Abuse Patient Records regulations: The Federal rules restrict any use of the information to criminally investigate or prosecute any alcohol or drug abuse patient.[facility] HospitalIn the event this information is protected by the Federal Confidentiality of Alcohol and Drug Abuse Patient Records regulations: The Federal rules restrict any use of the information to criminally investigate or prosecute any alcohol or drug abuse patient.[facility] HospitalIn the event this information is protected by the Federal Confidentiality of Alcohol and Drug Abuse Patient Records regulations: The Federal rules restrict any use of the information to criminally investigate or prosecute any alcohol or drug abuse patient.[facility] HospitalIn the event this information is protected by the Federal Confidentiality of Alcohol and Drug Abuse Patient Records regulations: The Federal rules restrict any use of the information to criminally investigate or prosecute any alcohol or drug abuse patient.[facility] HospitalIn the event this information is protected by the Federal Confidentiality of Alcohol and Drug Abuse Patient Records regulations: The Federal rules restrict any use of the information to criminally investigate or prosecute any alcohol or drug abuse patient.[facility] HospitalIn the event this information is protected by the Federal Confidentiality of Alcohol and Drug Abuse Patient Records regulations: The Federal rules restrict any use of the information to criminally investigate or prosecute any alcohol or drug abuse patient.[facility] HospitalIn the event this information is protected by the Federal Confidentiality of Alcohol and Drug Abuse Patient Records regulations: The Federal rules restrict any use of the information to criminally investigate or prosecute any alcohol or drug abuse patient.[facility] HospitalIn the event this information is protected by the Federal Confidentiality of Alcohol and Drug Abuse Patient Records regulations: The Federal rules restrict any use of the information to criminally investigate or prosecute any alcohol or drug abuse patient.[facility] HospitalIn the event this information is protected by the Federal Confidentiality of Alcohol and Drug Abuse Patient Records regulations: The Federal rules restrict any use of the information to criminally investigate or prosecute any alcohol or drug abuse patient.[facility] HospitalIn the event this information is protected by the Federal Confidentiality of Alcohol and Drug Abuse Patient Records regulations: The Federal rules restrict any use of the information to criminally investigate or prosecute any alcohol or drug abuse patient.[facility] HospitalIn the event this information is protected by the Federal Confidentiality of Alcohol and Drug Abuse Patient Records regulations: The Federal rules restrict any use of the information to criminally investigate or prosecute any alcohol or drug abuse patient.[facility] HospitalIn the event this information is protected by the Federal Confidentiality of Alcohol and Drug Abuse Patient Records regulations: The Federal rules restrict any use of the information to criminally investigate or prosecute any alcohol or drug abuse patient.[facility] HospitalIn the event this information is protected by the Federal Confidentiality of Alcohol and Drug Abuse Patient Records regulations: The Federal rules restrict any use of the information to criminally investigate or prosecute any alcohol or drug abuse patient.[facility] HospitalIn the event this information is protected by the Federal Confidentiality of Alcohol and Drug Abuse Patient Records regulations: The Federal rules restrict any use of the information to criminally investigate or prosecute any alcohol or drug abuse patient.[facility] HospitalIn the event this information is protected by the Federal Confidentiality of Alcohol and Drug Abuse Patient Records regulations: The Federal rules restrict any use of the information to criminally investigate or prosecute any alcohol or drug abuse patient.[facility] HospitalIn the event this information is protected by the Federal Confidentiality of Alcohol and Drug Abuse Patient Records regulations: The Federal rules restrict any use of the information to criminally investigate or prosecute any alcohol or drug abuse patient.[facility] HospitalIn the event this information is protected by the Federal Confidentiality of Alcohol and Drug Abuse Patient Records regulations: The Federal rules restrict any use of the information to criminally investigate or prosecute any alcohol or drug abuse patient.[facility]In the event this information is protected by the Federal Confidentiality of Alcohol and Drug Abuse Patient Records regulations: The Federal rules restrict any use of the information to criminally investigate or prosecute any alcohol or drug abuse patient.[facility] HospitalIn the event this information is protected by the Federal Confidentiality of Alcohol and Drug Abuse Patient Records regulations: The Federal rules restrict any use of the information to criminally investigate or prosecute any alcohol or drug abuse patient.[facility] HospitalIn the event this information is protected by the Federal Confidentiality of Alcohol and Drug Abuse Patient Records regulations: The Federal rules restrict any use of the information to criminally investigate or prosecute any alcohol or drug abuse patient.[facility] HospitalIn the event this information is protected by the Federal Confidentiality of Alcohol and Drug Abuse Patient Records regulations: The Federal rules restrict any use of the information to criminally investigate or prosecute any alcohol or drug abuse patient.[facility] HospitalIn the event this information is protected by the Federal Confidentiality of Alcohol and Drug Abuse Patient Records regulations: The Federal rules restrict any use of the information to criminally investigate or prosecute any alcohol or drug abuse patient.[facility] HospitalIn the event this information is protected by the Federal Confidentiality of Alcohol and Drug Abuse Patient Records regulations: The Federal rules restrict any use of the information to criminally investigate or prosecute any alcohol or drug abuse patient.[facility] HospitalIn the event this information is protected by the Federal Confidentiality of Alcohol and Drug Abuse Patient Records regulations: The Federal rules restrict any use of the information to criminally investigate or prosecute any alcohol or drug abuse patient.[facility] HospitalIn the event this information is protected by the Federal Confidentiality of Alcohol and Drug Abuse Patient Records regulations: The Federal rules restrict any use of the information to criminally investigate or prosecute any alcohol or drug abuse patient.[facility] HospitalIn the event this information is protected by the Federal Confidentiality of Alcohol and Drug Abuse Patient Records regulations: The Federal rules restrict any use of the information to criminally investigate or prosecute any alcohol or drug abuse patient.[facility] HospitalIn the event this information is protected by the Federal Confidentiality of Alcohol and Drug Abuse Patient Records regulations: The Federal rules restrict any use of the information to criminally investigate or prosecute any alcohol or drug abuse patient.[facility] HospitalIn the event this information is protected by the Federal Confidentiality of Alcohol and Drug Abuse Patient Records regulations: The Federal rules restrict any use of the information to criminally investigate or prosecute any alcohol or drug abuse patient.[facility] HospitalIn the event this information is protected by the Federal Confidentiality of Alcohol and Drug Abuse Patient Records regulations: The Federal rules restrict any use of the information to criminally investigate or prosecute any alcohol or drug abuse patient.[facility] HospitalIn the event this information is protected by the Federal Confidentiality of Alcohol and Drug Abuse Patient Records regulations: The Federal rules restrict any use of the information to criminally investigate or prosecute any alcohol or drug abuse patient.[facility] HospitalIn the event this information is protected by the Federal Confidentiality of Alcohol and Drug Abuse Patient Records regulations: The Federal rules restrict any use of the information to criminally investigate or prosecute any alcohol or drug abuse patient.[facility] HospitalIn the event this information is protected by the Federal Confidentiality of Alcohol and Drug Abuse Patient Records regulations: The Federal rules restrict any use of the information to criminally investigate or prosecute any alcohol or drug abuse patient.[facility] HospitalIn the event this information is protected by the Federal Confidentiality of Alcohol and Drug Abuse Patient Records regulations: The Federal rules restrict any use of the information to criminally investigate or prosecute any alcohol or drug abuse patient.[facility] HospitalIn the event this information is protected by the Federal Confidentiality of Alcohol and Drug Abuse Patient Records regulations: The Federal rules restrict any use of the information to criminally investigate or prosecute any alcohol or drug abuse patient.[facility] Reason for Visit (unrecogniz ed section [...] To Contact Diagnoses 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] Procedures MD CABG W/ARTERIAL GRAFT SINGLE ARTERIAL GRAFT MD ECHO TRANSESOPHAG R-T 2D W/PRB IMG ACQUISJ I&R CABG WITH CHERI Echocardiography transesophageal real-time Adrianne Sethi MD [address] [place] [address] [address] [place] [address] Referral ID Status Reason Start Date Expiration Date Visits Re quested Visits Authorized [id number] 1 Reason Onset Date Comments Refill [...] RMP Specialty Diagnoses / Procedures Referred By Donavon t Referred To Contact XR IMAGING Diagnoses Belching symptom Procedures XR ABDOMEN 2V ROUTINE SUPINE W UPRIGHT/DECUB/CTL RADIOLOGIC EXAM ABDOMEN 2 VIEWS Tosin Arredondo, [address] [place] [address] [place] [address] Referral ID Status Reason Start Date Expiration Date V isits Requested Visits Authorized [id number] Closed Auto-Generate d Referral 01/06/2023 02/05/2024 1 [...] Hypotension Elevated Glucose Reason Onset Date Comments Electronics Lead Chronic Care 04/12/2024 Gap closure Reason Comments pre surgical clearance Reason Comments Non-Chemotherapy Treatment Specialty Diagnoses / Procedures Referred By Contniharika t Referred To Contact Diagnoses Iron deficiency anemia, unspecified iron deficiency anemia type Procedures IRON SUCROSE INJECTION PER 1 MG Kali Bacon MD [address] [place] [address] Goyo [facility] [address] [place] [address] Referral ID Status Reason Start Date Expiration Date V isits Requested Visits Authorized [id number] Authorized 2024 08/15/2025 99 99 Reason Comments Urinary Problem Pressure, frequency, x 2 days Reason Comments New Patient Specialty Diagnoses / Procedures Referred By Contac t Referred To Contact Diagnoses Iron deficiency anemia, unspecified iron deficiency anemia type Procedures CONSULT TO HEMATOLOGY/ONCOLOGY OFFICE/OUTPATIENT [facility] 60 MINUTES Kali Bacon MD [address] [place] [address] Referral ID Status Reason Start Date Expiration Date V isits Requested Visits Authorized [id number] Closed PCP Requested Referral 08/22/2024 08/22/2025 1 1 Reason Comments colon consult Specialty Diagnoses / Procedures Referred By Contac t Referred To Contact General Surgery Diagnoses Iron deficiency anemia, unspecified iron deficiency anemia type Procedures CONSULT TO GENERAL SURGERY OFFICE/OUTPATIENT [facility] 60 MINUTES Fanny Barron [address] [place] [address] Referral ID Status Reason Start Date Expiration Date V isits Requested Visits Authorized [id number] Closed PCP Requested Referral 09/05/2024 09/05/2025 1 [...] Care Teams (unrecognized sec tion and content) Private Equity Associate Relationship Specialty Start Date End Date Kali Bacon MD [address] [place] [address] PCP - General Family Practice 04/27/18 Guero Diaz [address] [place] [address] Gastroenterology 03/12/20 Private Equity Associate Relationship Specialty Start Date End Date Kali Bacon MD [address] [place] [address] PCP - General Family Medicine 04/27/18 [address] [place] [address] Gastroenterology 03/12/20 Private Equity Associate Relationship Specialty Start Date End Date Kali Bacon MD [address] [place] [address] PCP - General Family Medicine 04/27/18 Guero Diaz [facility] [address] [place] [address] Gastroenterology 03/12/20 Private Equity Associate Relationship Specialty Start Date End Date Kali Bacon MD [address] [place] [address] PCP - General Family Medicine 04/27/18 Guero Diaz [facility] [address] [place] [address] Gastroenterology 03/12/20 Private Equity Associate Relationship Specialty Start Date End Date Kali Bacon MD [address] [place] [address] PCP - General Family Medicine 04/27/18 Gu[facility] [address] [place] [address] Gastroenterology 03/12/20 Team Status: Active Member Role Status Dates Dr. Kali Bacon MD Family Provider Active Dr. Kali Bacon MD Primary Care Provider Active Team Status: Inactive Member Role Status Dates Dr. Kali Bacon MD Primary Care Provider, Referrin g Provider Active Chanda Sanz KILN FIREMAN, KILN FIREMAN-C Attending Provider Active Team Status: Inactive Member Role Status Dates Dr. Kali Bacon MD Primary Care Provider Active Chanda Sanz KILN FIREMAN, KILN FIREMAN-C Attending Provider Active Team Status: Inactive Member Role Status Dates Dr. Kali Bacon MD Primary Care Provider, Attendin g Provider Active Private Equity Associate Relationship Specialty Start Date End Date Kali Bacon MD [address] [place] [address] PCP - General Family Medicine 04/27/18 Gu[facility] Diaz [facility] [address] [place] [address] Gastroenterology 03/12/20 Team Status: Active Member Role Status Dates Dr. Kali Bacon MD Primary Care Provider Active Dr. Shawn Cohen MD Attending Provider, Referring Pr ovider Active Team Status: Inactive Member Role Status Dates Dr. Kali Bacon MD Primary Care Provider Active Dr. Beltran Miranda , Emergency Provider Active Team Status: Inactive Member Role Status Dates Dr. Kali Bacon MD Primary Care Provider Active Dr. Shawn Choen MD Attending Provider, Referring Pr ovider Active Private Equity Associate Relationship Specialty Start Date End Date Kali Bacon MD [address] [place] [address] PCP - General Family Medicine 04/27/[address] [place] [address] Gastroenterology 03/12/20 Private Equity Associate Relationship Specialty Start Date End Date Kali Bacon MD [address] [place] [address] PCP - General Family Medicine 04/27/[address] [place] [address] Gastroenterology 03/12/20 Private Equity Associate Relationship Specialty Start Date End Date Kali Bacon MD [address] [place], [place] [address] PCP - General Family Medicine 04/27/[address] [place], [place] [address] Gastroenterology 03/12/20 Team Status: Inactive Member Role [...] Provider Active Dr. Leo Rubio MD Attending Provider, Referring Pro vider Active Private Equity Associate Relationship Specialty Start Date End Date Kali Bacon [address] [place] [id number] PCP - General 10/26/19 Private Equity Associate Relationship Specialty Start Date End Date Kali Bacon [address] [place] [address] PCP - General 10/26/19 Private Equity Associate Relationship Specialty Start Date End Date JordiKali juárez [address] [place] [address] PCP - General 10/26/19 Private Equity Associate Relationship Specialty Start Date End Date Kali Bacon [address] [place] [address] PCP - General 10/26/19 Private Equity Associate Relationship Specialty Start Date End Date Kali Bacon Keerthi [address] [place] [address] PCP - General 10/26/19 Team Status: Active Member Role Status Dates Dr. Kali Bacon MD Primary Care Provider Active Dr. Leo Rubio MD Attending Provider Active Private Equity Associate Relationship Specialty Start Date End Date Kali Bacon Keerthi [address] [place] [address] PCP - General 10/26/19 Private Equity Associate Relationship Specialty Start Date End Date Kali Bacon MD [address] [place] [address] PCP - General Family Medicine 04/27/18 Guero Diaz [facility] [address] [place] [address] Gastroenterology 03/12/20 Private Equity Associate Relationship Specialty Start Date End Date Kali Bacon [address] [place] [address] PCP - General 10/26/19 Team Status: Inactive Member Role Status Dates Dr. Kali Bacon MD Primary Care Provider Active Dr. Al Perez MD Emergency Provider Active Private Equity Associate Relationship Specialty Start Date End Date Kali Bacon MD [address] [place] [address] PCP - General Family Medicine 04/27/18 Guero Diaz E [facility] [address] [place] [address] Gastroenterology 03/12/20 Private Equity Associate Relationship Specialty Start Date End Date Kali Bacon [address] [place] [address] PCP - General 10/26/19 Private Equity Associate Relationship Specialty Start Date End Date Kali Bacon MD [address] [place] [address] PCP - General Family Medicine 04/27/18 Guero Diaz [address] [place] [address] Gastroenterology 03/12/20 Private Equity Associate Relationship Specialty Start Date End Date Kali Bacon [address] [place] [address] PCP - General 10/26/19 Private Equity Associate Relationship Specialty Start Date End Date Kali Bacon MD [address] [place] [address] PCP - General Family Medicine 04/27/18 Guero Diaz [address] [place] [address] Gastroenterology 03/12/20 Private Equity Associate Relationship Specialty Start Date End Date Kali Bacon MD [address] [place] [address] PCP - General Family Medicine 04/27/18 Guero Diaz [address] [place] [address] Gastroenterology 03/12/20 Private Equity Associate Relationship Specialty Start Date End Date Kali Bacon MD [address] [place] [address] PCP - General Family Medicine 04/27/18 Guero Diaz E [facility] [address] [place] [address] Gastroenterology 03/12/20 Private Equity Associate Relationship Specialty Start Date End Date Kali Bacon MD [address] [place] [address] PCP - General Family Medicine 04/27/18 Guero Diaz [address] [facility] [address] [place] [address] Gastroenterology 03/12/20 Private Equity Associate Relationship Specialty Start Date End Date Kali Bacon MD [address] [place] [address] PCP - General Family Medicine 04/27/18 Guero Diaz [address] [facility] [address] [place] [address] Gastroenterology 03/12/20 Team Status: Inactive Member Role Status Dates Dr. Kali Bacon MD Primary Care Provider, Referrin g Provider Active Migdalia Max PA, PA Attending Provider Active Team Status: Inactive Member Role Status Dates Dr. Kali Bacon MD Primary Care Provider Active Dr. Al Perez MD Attending Provider, Emergency Provider Active Team Status: Inactive Member Role Status Dates Dr. Kali Bacon MD Primary Care Provider Active Dr. Isai Ornelas DO Attending Provider Active Private Equity Associate Relationship Specialty Start Date End Date Kali Bacon MD [address] [place] [address] PCP - General Family Medicine 04/27/18 Guero Diaz [address] [facility] [address] [place] [address] Gastroenterology 03/12/20 Private Equity Associate Relationship Specialty Start Date End Date Kali Bacon MD [address] [place] [address] PCP - General Family Medicine 04/27/18 Guero Diaz [address] [place] [address] Gastroenterology 03/12/20 Private Equity Associate Relationship Specialty Start Date End Date Kali Bacon MD [address] [place] [address] PCP - General Family Medicine 04/27/18 Guero iDaz [address] [place] [address] Gastroenterology 03/12/20 Team Status: Active Member Role [...] Dr. Lamine Payan MD Attending Provider Active Private Equity Associate Relationship Specialty Start Date End Date Kali Bacon MD [address] [place] [address] PCP - General Family Medicine 04/27/18 Guero Diaz [address] [place] [address] Gastroenterology 03/12/20 Team Status: Active Member Role Status Dates Dr. Kali Bacon MD Primary Care Provider Active Dr. Leo Rubio MD Attending Provider Active Dr. Isai Ornelas DO Referring Provider Active Team Status: Inactive Member Role Status Dates Dr. Kali Bacon MD Primary Care Provider Active Grayson GRIGGS PA-C Attending Provider, Referring Pr ovider Active Private Equity Associate Relationship Specialty Start Date End Date Kali Bacon MD [address] [place], [place] [address] PCP - General Family Medicine 04/27/18 Guero Diaz [address] [facility] [address] [place], [place] [address] Gastroenterology 03/12/20 Private Equity Associate Relationship Specialty Start Date End Date Kali Bacon MD [address] [place] [address] PCP - General Family Medicine 04/27/18 Guero Diaz [address] [facility] [address] [place], [place] [address] Gastroenterology 03/12/20 Private Equity Associate Relationship Specialty Start Date End Date Kali Bacon MD [address] [place], [place] [address] PCP - General Family Medicine 04/27/18 Guero Diaz [address] [place] [address] Gastroenterology 03/12/20 Private Equity Associate Relationship Specialty Start Date End Date Kali Bacon MD [address] [place] [address] PCP - General Family Medicine 04/27/18 Guero Diaz [address] [place] [address] Gastroenterology 03/12/20 Private Equity Associate Relationship Specialty Start Date End Date Kali Bacon MD [address] [place] [address] PCP - General Family Medicine 04/27/18 Guero Diaz [address] [place] [address] Gastroenterology 03/12/20 Private Equity Associate Relationship Specialty Start Date End Date Kali Bacon MD [address] [place] [address] PCP - General Family Medicine 04/27/18 Guero Diaz MD [address] [place], [place] [address] Gastroenterology 03/12/20 Private Equity Associate Relationship Specialty Start Date End Date Kali Bacon MD [address] [place] [address] PCP - General Family Medicine 04/27/18 Guero Diaz MD [address] [place] [address] Gastroenterology 03/12/20 Private Equity Associate Relationship Specialty Start Date End Date Kali Bacon MD [address] [place], [place] [address] PCP - General Family Medicine 04/27/18 Guero Diaz MD [address] [facility] [address] [place] [address] Gastroenterology 03/12/20 Private Equity Associate Relationship Specialty Start Date End Date Kali Bacon MD [address] [place], [place] [address] PCP - General Family Medicine 04/27/18 Guero Diaz MD [address] [facility] [address] [place] [address] Gastroenterology 03/12/20 Private Equity Associate Relationship Specialty Start Date End Date Kali Bacon MD [address] [place] [address] PCP - General Family Medicine 04/27/18 Guero Diaz MD [address] [facility] [address] [place], [place] [address] Gastroenterology 03/12/20 Private Equity Associate Relationship Specialty Start Date End Date Kali Bacon MD [address] [place] [address] PCP - General Family Medicine 04/27/18 Guero Diaz MD [address] [facility] [address] [place] [address] Gastroenterology 03/12/20 Private Equity Associate Relationship Specialty Start Date End Date Kali Bacon MD [address] [place], [place] [address] PCP - General Family Medicine 04/27/18 Guero Diaz MD [address] [facility] [address] [place] [address] Gastroenterology 03/12/20 Private Equity Associate Relationship Specialty Start Date End Date Kali Bacon MD [address] [place], [place] [address] PCP - General Family Medicine 04/27/18 Guero Diaz MD [address] [facility] [address] [place] [address] Gastroenterology 03/12/20 Private Equity Associate Relationship Specialty Start Date End Date Kali Bacon MD [address] [place] [address] PCP - General Family Medicine 04/27/18 Guero Diaz MD [address] [facility] [address] [place], [place] [address] Gastroenterology 03/12/20 Private Equity Associate Relationship Specialty Start Date End Date Kali Bacon MD [address] [place] [address] PCP - General Family Medicine 04/27/18 Guero Diaz MD [address] [facility] [address] [place] [address] Gastroenterology 03/12/20 Private Equity Associate Relationship Specialty Start Date End Date Kali Bacon MD [address] [place] [address] PCP - General Family Medicine 04/27/18 Guero Diaz MD [address] [place] [address] Gastroenterology 03/12/20 Private Equity Associate Relationship Specialty Start Date End Date Kali Bacon MD [address] [place] [address] PCP - General Family Medicine 04/27/18 Guero Diaz MD [address] [place] [address] Gastroenterology 03/12/20 Team Status: Inactive Member Role Status Dates Dr. Kali Bacon MD Primary Care Provider Active Chanda Sanz KILN FIREMAN, KILN FIREMAN-C Attending Provider, Referring Provider Active Team Status: [...] Bacon MD Primary Care Provider Active Migdalia Max PA, PA Attending Provider, Referr ing Provider Active Private Equity Associate Relationship Specialty Start Date End Date Kali Bacon MD [address] [place] [address] PCP - General Family Medicine 04/27/18 Guero Diaz MD [address] [facility] [address] [place] [address] Gastroenterology 03/12/20 Team Status: Active Member Role [...] Acuña Attending Provider, Referring Provid er Active Private Equity Associate Relationship Specialty Start Date End Date Kali Bacon MD [address] [place] [address] PCP - General Family Medicine 04/27/18 Guero Diaz MD [address] [facility] [address] [place] [address] Gastroenterology 03/12/20 Private Equity Associate Relationship Specialty Start Date End Date Kali Bacon MD [address] [place] [address] PCP - General Family Medicine 04/27/18 Guero Diaz MD [address] [facility] [address] [place] [address] Gastroenterology 03/12/20 Private Equity Associate Relationship Specialty Start Date End Date Kali Bacon MD [address] [place] [address] PCP - General Family Medicine 04/27/18 Guero Diaz MD [address] [facility] [address] [place] [address] Gastroenterology 03/12/20 Kaela Carter, forklift technician Stroboroma Operator 01/28/24 01/28/24 Private Equity Associate Relationship Specialty Start Date End Date Kali Bacon MD [address] [place] [address] PCP - General Family Medicine 04/27/18 Guero Diaz MD [address] [place] [address] Gastroenterology 03/12/20 Kaela Carter RN Primary Care Stroboroma Operator 01/28/24 01/28/24 Private Equity Associate Relationship Specialty Start Date End Date Kali Bacon MD [address] [place] [address] PCP - General Family Medicine 04/27/18 Guero Diaz MD [address] [place] [address] Gastroenterology 03/12/20 Private Equity Associate Relationship Specialty Start Date End Date Kali Bacon MD [address] [place] [address] PCP - General Family Medicine 04/27/18 Guero Diaz MD [address] [place] [address] Gastroenterology 03/12/20 Private Equity Associate Relationship Specialty Start Date End Date Kali Bacon MD [address] [place] [address] PCP - General Family Medicine 04/27/18 Guero Diaz MD [address] [place] [address] Gastroenterology 03/12/20 Joel Acuna [address] [facility] [place], [place] [address] Ophthalmology 03/14/24 Private Equity Associate Relationship Specialty Start Date End Date Kali Bacon MD [address] [place] [address] PCP - General Family Medicine 04/27/18 Guero Diaz MD [address] [facility] [address] [place] [address] Gastroenterology 03/12/20 Joel Acuna [address] [facility], [place] [address] Ophthalmology 03/14/24 Private Equity Associate Relationship Specialty Start Date End Date Kali Bacon MD [address] [place] [address] PCP - General Family Medicine 04/27/18 Guero Diaz MD [address] [facility] [address] [place] [address] Gastroenterology 03/12/20 Joel Acuna [address] [place] [address] Ophthalmology 03/14/24 Private Equity Associate Relationship Specialty Start Date End Date Kali Bacon MD [address] [place] [address] PCP - General Family Medicine 04/27/18 Guero Diaz MD [address] [facility] [address] [place] [address] Gastroenterology 03/12/20 Joel Acuna [address] [place] [address] Ophthalmology 03/14/24 Private Equity Associate Relationship Specialty Start Date End Date Kali Bacon MD [address] [place] [address] PCP - General Family Medicine 04/27/18 Guero Diaz MD [address] [facility] [address] [place] [address] Gastroenterology 03/12/20 Joel Acuna [address] [place] [address] Ophthalmology 03/14/24 Private Equity Associate Relationship Specialty Start Date End Date Kali Bacon MD [address] [place] [address] PCP - General Family Medicine 04/27/18 Guero Diaz MD [address] [facility] [address] [place] [address] Gastroenterology 03/12/20 Joel Acuna [address] [place] [address] Ophthalmology 03/14/24 Private Equity Associate Relationship Specialty Start Date End Date Kali Bacon MD [address] [place] [address] PCP - General Family Medicine 04/27/18 Guero Diaz MD [address] [facility] [address] [place] [address] Gastroenterology 03/12/20 Joel Acuna [address] [place] [address] Ophthalmology 03/14/24 Private Equity Associate Relationship Specialty Start Date End Date Kali Bacon MD [address] [place] [address] PCP - General Family Medicine 04/27/18 Guero Diaz MD [address] [facility] [address] [place] [address] Gastroenterology 03/12/20 Joel Acuna [address] [place] [address] Ophthalmology 03/14/24 Private Equity Associate Relationship Specialty Start Date End Date Kali Bacon MD [address] [place] [address] PCP - General Family Medicine 04/27/18 Guero Diaz MD [address] [facility] [address] [place] [address] Gastroenterology 03/12/20 Joel Acuna [address] [place] [address] Ophthalmology 03/14/24 Private Equity Associate Relationship Specialty Start Date End Date Kali Bacon MD [address] [place] [address] PCP - General Family Medicine 04/27/18 Guero Diaz MD [address] [place] [address] Gastroenterology 03/12/20 Joel Acuna [facility] [address] Ophthalmology 03/14/24 Private Equity Associate Relationship Specialty Start Date End Date Kali Bacon MD [address] [place] [address] PCP - General Family Medicine 04/27/18 Guero Diaz MD [address] [place] [address] Gastroenterology 03/12/20 Joel Acuna [address] [facility], [place] [address] Ophthalmology 03/14/24 Private Equity Associate Relationship Specialty Start Date End Date aKli Bacon MD [address] [place] [place] [address] PCP - General Family Medicine 04/27/18 Guero Diaz MD [address] [place] [address] Gastroenterology 03/12/20 Joel Acuna [address] [facility] [address] Ophthalmology 03/14/24 Private Equity Associate Relationship Specialty Start Date End Date Kali Bacon MD [address] [place] [address] PCP - General Family Medicine 04/27/18 Guero Diaz MD [address] [facility] [address] [place] [address] Gastroenterology 03/12/20 Joel Acuna [address] [facility] [address] Ophthalmology 03/14/24 Private Equity Associate Relationship Specialty Start Date End Date Kali Bacon MD [address] [place] [address] PCP - General Family Medicine 04/27/18 Guero Diaz MD [address] [facility] [address] [place] [address] Gastroenterology 03/12/20 Joel Acuna [address] [facility] [address] Ophthalmology 03/14/24 Private Equity Associate Relationship Specialty Start Date End Date Kali Bacon MD [address] [place] [address] PCP - General Family Medicine 04/27/18 Guero Diaz MD [address] [facility] [address] [place] [address] Gastroenterology 03/12/20 Joel Acuna [address] [place], [place] [address] Ophthalmology 03/14/24 Private Equity Associate Relationship Specialty Start Date End Date Kali Bacon MD [address] [place] [address] PCP - General Family Medicine 04/27/18 Guero Diaz MD [address] [facility] [address] [place] [address] Gastroenterology 03/12/20 Joel Acuna [address] [place], [place] [address]37[address] Ophthalmology 03/14/24 Lovely Polk, forklift technician Stroboroma Operator 10/02/24 Private Equity Associate Relationship Specialty Start Date End Date Kali Bacon MD [address] [place] [address] PCP - General Family Medicine 04/27/18 Guero Diaz MD [address] [address] Gastroenterology 03/12/20 Joel Acuna [address] [place], [place] [id number] Ophthalmology 03/14/24 Lovely Polk, forklift technician Stroboroma Operator 10/02/24 Private Equity Associate Relationship Specialty Start Date End Date Kali Bacon MD [address] [place] [address] PCP - General Family Medicine 04/27/18 Guero Diaz MD [address] [facility] [address] [place], [place] [address] Gastroenterology 03/12/20 Joel Acuna [address] [facility], [place] [address] Ophthalmology 03/14/24 Lovely Polk, forklift technician Stroboroma Operator 10/02/24 Private Equity Associate Relationship Specialty Start Date End Date Kali Bacon MD [address] [place], [place] [address] PCP - General Family Medicine 04/27/18 Guero Diaz MD [address] [facility] [facility] [facility] [address] [place] [address] Gastroenterology 03/12/20 Joel Acuna [address] [facility], [place] [address] Ophthalmology 03/14/24 Lovely Polk, forklift technician Stroboroma Operator 10/02/24 Private Equity Associate Relationship Specialty Start Date End Date Kali Bacon MD [address] [place] [address] PCP - General Family Medicine 04/27/18 Guero Diaz MD [address] [facility] [facility] [address] [place] [address] Gastroenterology 03/12/20 Joel Acuna [address] [facility], [place] [id number] Ophthalmology 03/14/24 Lovely Polk, forklift technician Stroboroma Operator 10/02/24 Private Equity Associate Relationship Specialty Start Date End Date Kali Bacon MD [address] [place] [address] PCP - General Family Medicine 04/27/18 Guero Diaz MD [address] [facility] [address] [place] [address] Gastroenterology 03/12/20 Joel Acuna [address] [place], [place] [address] Ophthalmology 03/14/24 Lovely Polk RN Primary Care Stroboroma Operator 10/02/24 Private Equity Associate Relationship Specialty Start Date End Date Kali Bacon MD [address] [place] [address] PCP - General Family Medicine 04/27/18 Guero Diaz MD [address] [facility] [address] [place] [address] Gastroenterology 03/12/20 Joel Acuna [facility] [place] [address] Ophthalmology 03/14/24 Private Equity Associate Relationship Specialty Start Date End Date Kali Bacon MD [address] [place] [address] PCP - General Family Medicine 04/27/18 Guero Diaz MD [address] [facility] [address] [place], [place] [address] Gastroenterology 03/12/20 Joel Acuna [address] [place], [place] [id number] Ophthalmology 03/14/24 Private Equity Associate Relationship Specialty Start Date End Date Kali Bacon MD [address] [place] [address] PCP - General Family Medicine 04/27/18 Guero Diaz MD [address] [id number] Gastroenterology 03/12/20 Joel Acuna [address] [place], [place] [address] Ophthalmology 03/14/24 Team Status: Active Member Role [...] 06, 2024 End: September 06, 2024 Migdalia GRIGGS PA Attending Provider Active Start: September 06, [...] 2024 End: September 18, 2024 Chanda Sanz KILN FIREMAN, KILN FIREMAN-C Attending Provider Active Start: September 18, 2024 End: September 18, 2024 Team Status: Inactive Member Role Status Dates Dr. Kali Bacon MD Primary Care Provider Active Start: September 18, 2024 End: September 18, 2024 Chanda Sanz KILN FIREMAN, KILN FIREMAN-C Attending Provider Active Start: September 18, 2024 End: September 18, 2024 Chanda Sanz KILN FIREMAN, KILN FIREMAN-C Referring Provider Active Start: September 18, 2024 [...] 2024 End: October 25, 2024 Dr. Monica Vande Velde , DO Attending Provider Activ e Start: October [...] October 25, 2024 End: October 25, 2024 Private Equity Associate Relationship Specialty Start Date End Date Kali Bacon MD [address] [facility], [place] [address] PCP - General Family Medicine 04/27/18 Guero Diaz MD [address] [facility] [address] [place], [place] [address] Gastroenterology 03/12/20 Joel Acuna [address] [facility], [place] [address] Ophthalmology 03/14/24 Private Equity Associate Relationship Specialty Start Date End Date Kali Bacon MD [address] [place] [address] PCP - General Family Medicine 04/27/18 Guero Diaz MD [address] [facility] [address] [place] [address] Gastroenterology 03/12/20 Joel Acuna [address] [place] [address] Ophthalmology 03/14/24 Private Equity Associate Relationship Specialty Start Date End Date Kali Bacon MD [address] [place] [address] PCP - General Family Medicine 04/27/18 Guero Diaz MD [address] [facility] [address] [place] [address] Gastroenterology 03/12/20 Joel Acuna [address] [place] [address] Ophthalmology 03/14/24 Private Equity Associate Relationship Specialty Start Date End Date Kali Bacon MD [address] [place] [address] PCP - General Family Medicine 04/27/18 Guero Diaz MD [address] [facility] [address] [place] [address] Gastroenterology 03/12/20 Joel Acuna [address] [place] [address] Ophthalmology 03/14/24 Private Equity Associate Relationship Specialty Start Date End Date Kali Bacon MD [address] [place] [address] PCP - General Family Medicine 04/27/18 Guero Diaz MD [address] [facility] [address] [place] [address] Gastroenterology 03/12/20 Joel Acuna [address] [facility], [place] [address] Ophthalmology 03/14/24 Private Equity Associate Relationship Specialty Start Date End Date Kali Bacon MD [address] [place], [place] [address] [phone] PCP - General Family Medicine 04/27/18 Guero Diaz MD [address] [facility] [address] [place] [address] Gastroenterology 03/12/20 Joel Acuna [address] [place] [address] Ophthalmology 03/14/24 Private Equity Associate Relationship Specialty Start Date End Date Kali Bacon MD [address] [place], [place] [address] [phone] PCP - General Family Medicine 04/27/18 Guero Diaz MD [address] [facility] [address] [place] [address] Gastroenterology 03/12/20 Joel Acuna [address] [place] [address] Ophthalmology 03/14/24 Lovely Polk, forklift technician Stroboroma Operator 10/02/24 10/30/24 Private Equity Associate Relationship Specialty Start Date End Date Kali Bacon MD [address] [place] [address] PCP - General Family Medicine 04/27/18 Guero Diaz MD [address] [facility] [address] [place], [place] [address] Gastroenterology 03/12/20 Joel Acuna [address] [facility], [place] [address] Ophthalmology 03/14/24 Private Equity Associate Relationship Specialty Start Date End Date Kali Bacon MD [address] [place] [address] PCP - General Family Medicine 04/27/18 Guero Diaz MD [address] [facility] [address] [place] [address] Gastroenterology 03/12/20 Joel Acuna [address] [facility], [place] [address] Ophthalmology 03/14/24 Team Status: Inactive Member Role [...] Provider Active S tart: January 16, 2025 Private Equity Associate Relationship Specialty Start Date End Date Kali Bacon MD [address] [place] [address] PCP - General Family Medicine 04/27/18 Guero Diaz MD [address] [facility] [address] [place] [address] Gastroenterology 03/12/20 Joel Acuna [address] [place], [place] [id number] Ophthalmology 03/14/24 Team Status: Inactive Member Role [...] section and content) DATE CREATED AUTHOR 12/27/2022 [facility] DATE CREATED AUTHOR AUTHOR'S ORGANIZ ATION 01/25/2023 [facility] DATE CREATED AUTHOR AUTHOR'S ORGANIZ ATION 11/18/2024 [facility] DATE CREATED AUTHOR AUTHOR'S ORGANIZ ATION 01/27/2025 [facility] DATE CREATED AUTHOR AUTHOR'S ORGANIZ ATION 01/29/2025 [facility] DATE CREATED AUTHOR AUTHOR'S ORGANIZ ATION 01/31/2025 [facility] FOR RECORDS PERTAINING TO PATIENTS WHO ARE [...] BE BASED ON THE PRIMARY CLINICAL RECORDS. [employer] [facility]. provides no warranty or guarantee of the accuracy or completeness of information in this document.
[2025-01-31 22:58] LABS: Bedside Glucose 421 mg/dL (74-106)
[2025-02-01] MEDS: oxyCODONE 5 MG Tablet PO ×4 (00:48→16:20)
[2025-02-01] MEDS: Ketorolac 15 MG/ML Vial 30 MG IV (04:42)
[2025-02-01] MEDS: Acetaminophen 500 MG Tablet 1000 MG PO ×2 (04:42→13:15)
[2025-02-01 05:03] VITALS: BP 146/69; PULSE 78; RESP 16; TEMP 36.8; O2SAT 97
--- NOTE | 2025-02-01 05:32 | RAD_ITS ---
PROCEDURE: LUMBAR SPINE 2 OR 3 VIEWS 02/01/2025 REASON FOR EXAM: S/P LUMBAR FUSION TECHNIQUE: LUMBAR SPINE 2 OR 3 VIEWS COMPARISON: 01/31/2025. FINDINGS: Unremarkable lumbar fusion metallic hardware at L4-L5. Grade 1 anterolisthesis of L4 on L5 measuring 4.6 mm. Unremarkable disc spacer at L4-L5. Calcified atheromatous plaques are noted. Mild degenerative levoscoliosis apex at L3. There are diffuse spondylotic changes. Findings are demonstrated to by diffuse disc space narrowing, osteophyte formation and degenerative endplate sclerosis. There is diffuse facet joint arthropathy with secondary bilateral neural foramina narrowing. No fracture or dislocation is seen. No aggressive lytic or blastic bony lesion is noted. RAD/Lumbar Spine 2 or 3 Views IMPRESSION: No evidence for acute abnormality. Diffuse spondylosis. Reading Location: [facility]
[2025-02-01 06:41] LABS: Bedside Glucose 135 mg/dL (74-106)
[2025-02-01 07:52] VITALS: BP 159/62; PULSE 88; RESP 18; TEMP 37.3; O2SAT 96
[2025-02-01] MEDS: Methocarbamol 500 MG Tablet 1000 MG PO ×2 (07:56→13:55)
[2025-02-01] MEDS: Loratadine 10 MG Tablet 5 MG PO (07:56)
[2025-02-01] MEDS: hydroCHLOROthiazide 12.5mg 12.5 MG PO (07:56)
[2025-02-01] MEDS: Senna/Docusate Sodium 1 Tablet 2 TABLET PO (07:56)
[2025-02-01] MEDS: Lisinopril 20 MG Tablet PO (07:56)
[2025-02-01] MEDS: Pantoprazole Sodium 40 MG Tablet PO (07:56)
[2025-02-01] MEDS: Meloxicam 15 MG Tablet PO (08:01)
--- NOTE | 2025-02-01 10:09 | PN.HOSP_ITS ---
Subjective Subjective Doing well, no issues overnight. Her back pain is now from the surgical incision states that her pain that was shooting down her legs has resolved. No bowel movement today but she is passing gas Objective Data Objective Data Vital Signs: Vital Signs Temp Pulse Resp BP Pulse Ox O2 Del Method O2 Flow Rate 99.1 F 88 18 159/62 H 96 Room Air 3 02/01/25 07:52 02/01/25 07:52 02/01/25 07:52 02/01/25 07:52 02/01/25 07:52 02/01/25 07:52 01/31/25 14:30 Oxygen Flow Rate (L/min) 3 Oxygen Delivery Method Room Air Weight: 193 lb Body Mass Index (BMI) 34.2 Intake & Output: Intake and Output for Last 24 Hours 01/31/25 02/01/25 02/02/25 03:59 03:59 03:59 Intake Total 1252.5 / 1252.5 99.25 / 99.25 Output Total 1550 / 1550 Balance -297.5 / -297.5 99.25 / 99.25 Lab / Micro Data 01/31/25 18:25 01/31/25 16:33 Labs: Laboratory Results - last 24 hr 01/31/25 16:33: Sodium 134, Potassium 3.7, Chloride 96 L, Carbon Dioxide 21.3, A nion Gap 17 H, BUN 14, Creatinine 0.75, Estim Creat Clear Calc 66.69, Est GFR (MDRD) Non-Af 84, BUN/Creatinine Ratio 18.0, Glucose 225 H, Calcium 8.8, Phosphorus 3.5, Magnesium 1.7 01/31/25 18:25: WBC 17.3 H, RBC 4.04 L, Hgb 12.2, Hct 35.7 L, MCV 88.4, MCH 30.2, MCHC 34.2, RDW Std Deviation 43.8, RDW Coeff of Deny 13.5, Plt Count 248, MPV 10.0, Immature Gran % (Auto) 0.900, Neut % (Auto) 90.6 H, Lymph % (Auto) 6.4 L, [place] % (Auto) 2.0, Eos % (Auto) 0.0, Baso % (Auto) 0.1, Absolute Neuts (auto) 15.7 H, Absolute Lymphs (auto) 1.11, Nucleated RBC % 0 01/31/25 22:38: POC Glucose 421 H 02/01/25 06:24: POC Glucose 135 H Micro: Microbiology 01/22/25 07:42 Nasal Secretion Nasal Screen MRSA/MSSA - Final Radiography Diagnostic Testing: Radiology Impression Lumbar Spine X-Ray 01/31/25 08:22 IMPRESSION: As above. Reading Location: [id number] Lumbar Spine X-Ray 02/01/25 05:32 IMPRESSION: No evidence for acute abnormality. Diffuse spondylosis. Reading Location: [place] [address] Physical Exam Narrative General: Alert, Oriented x3, Cooperative, No apparent distress HEENT: Atraumatic, PERRLA, EOMI, Normocephalic Oral: Moist Mucosa Neck: Supple, No JVD Lungs: Diminished, Normal air movement, No rhonchi, No wheeze, No rales Cardiovascular: Regular rate, Regular Rhythm, Normal S1, Normal S2, No murmurs Abdomen: Soft, Non Tender, Non-Distended, No Hepato-splenomegaly Extremities: No edema, Capillary Refill Less than 3 Seconds Skin: No rashes, No breakdown Musculoskeletal: Back incision dressing CDI Neurological: No focal neurological deficits, Motor Exam 5/5 strength throughout, Sensory exam intact to light touch and pain Psych/Mental Status: Normal Affect, Appropriate Assessment & Plan Assessment/Plan (1) Spinal stenosis of lumbar region with neurogenic claudication: PLAN: Plan 1. L4-5 spondylolisthesis with spinal stenosis and neurogenic claudication status postrepair on 01/31/2025 ? PT/OT ? Pain management per primary ? She has a reactive leukocytosis, will confirm with repeat labs today ? Medically stable for discharge ? Will sign off 2. CAD status post CABG/carotid stenosis status post stenting/essential HTN/HLD ? CABG in 2022 with transcarotid artery revascularization in 01/25/2024 with vascular surgery ? Blood pressure stable ? Can resume all of her home medications if okay with surgery ? No changes to medications on discharge ? She did have a previous history of postoperative A-fib, does not require anticoagulation and has not recurred this admission 3. DM2 ? A1c of 6.5 ? Sliding scale insulin ? Accu-Cheks ACHS ? Will monitor and make adjustments ? She can resume her home medications on discharge 4. GERD ? Stable ? Continue with PPI DVT: Per Ortho Charges/Coding Visit Charges Inpatient E&M: 67875 Subs Hosp L2
--- NOTE | 2025-02-01 11:24 | CASEMGMT ---
EBER BASSETT Assessment: Face to Face with pt for initial transition planning/care coordination assessment. EBER BASSETT introduced self and role at [facility], pt voices understanding and consents to assessment. Pt is A&O x4 and answers all questions appropriately at this time. Pt lying in bed in no distress. Lab just tried to get blood and was unsuccessful. Pt present at bedside. Care providers, pharmacy, and demographics verified/updated. Admitting Dx: s/p lumbar fusion Strata Score: 2 PCP:[facility] Specialists:Luis Manuel, ortho; Ramiro, cardio; ever Gilbert; [facility], [employer]; artem Walters Preferred Pharmacy: [facility] Insurance: [facility] Prescription Benefit: yes LNOK: Lambert Baron, ; Latrice Baron, dtr Living Arrangements: Pt lives with in a single story home with 1+1 step to enter. Pt reports she is I in ADL/IADLs typically at home and denies concerns. Pt is able to assist. Transportation: Pt drives self and denies concerns with transportation. Pt will transport her until she can drive. DME:pox, w/c, shower chair, grab bar in shower, rollator, cane, BP cuff, BGM with sufficient strips and lancets HHC/SNF: Pt has had HHC in the past, she is unsure of the name of the agency but did not have a good experience. Pt denies SNF stays. Pt states no concerns with going home at time of dc. Pt states no further concerns/needs. CM to follow. Advised pt to ask CM if any further questions/concerns/needs arise, voices understanding. Pt Goal: Home Plan: Home Jose VELÁZQUEZ CM
[2025-02-01 11:52] LABS: Absolute Neutrophil Count 11.8 X10^3/uL (2.0-7.7); Basophil# 0.03 X10^3/uL; Basophil% 0.2 % (0-1); Eosinophil# 0.01 X10^3/uL; Eosinophils% 0.1 % (0-5); Hematocrit 31.2 % (37-47); Hemoglobin 10.5 g/dL (12.0-15.0); Lymphocyte % 13.4 % (19-41); Mean Corp Hgb Conc 33.7 g/dL (32-36); Mean Corpuscular Hgb 29.8 pg (27.0-32.0); Mean Corpuscular Volume 88.6 fL (81-99); Mean Platelet Vol. 10.1 fl (6.2-12.0); Monocyte# 0.97 X10^3/uL; Monocyte% 6.5 % (0-10); NRBC Flagged by Analyzer 0 % (0-5); Neutrophil # 11.83 X10^3/uL (2.7-7.7); Neutrophil % 79.1 % (47-70); POSITIVE COUNT YES; Platelet Count 203 K/mm3 (150-450); RBC Distribution Width CV 13.6 % (11.6-14.6); RBC Distribution Width SD 43.9 fl (35.1-43.9); Red Blood Count 3.52 M/mm3 (4.2-5.4); White Blood Count 14.9 K/mm3 (4.4-11.0)
[2025-02-01 12:32] LABS: Anion Gap 15 (5-15); BUN 16 mg/dL (4-19); BUN/Creat Ratio 18.9 RATIO (10-20); Carbon Dioxide 21.6 mmol/L (21.0-32.0); Chloride 97 mmol/L (98-108); Creatinine, Serum 0.85 mg/dL (0.70-1.20); EST Glomerular Filtration Rate 73 (>60); Estimated Creatinine Clearance 62.77 ml/min (50-250); Glucose 252 mg/dL (70-99); Potassium 3.6 mmol/L (3.3-5.1); Sodium Level 133 mmol/L (133-145)
--- NOTE | 2025-02-01 12:41 | PCM.PN.ORT ---
Subjective Subjective Postop day 1 L4-5 fusion. Patient is doing relatively well postoperatively. She says that her pain has gotten more tolerable since yesterday. The patient has passed gas and has tolerated a solid meal. The patient has walked with therapy who is cleared her for home discharge. The patient was seen at the bedside this morning which she reports she has been up to the bathroom several times. This afternoon though the patient reported an increase in her pain and that she has not been given any recent pain medications. Patient reports that her sciatic pain that she was having prior to the surgery has resolved. Seen with Dr. Issa. Objective Data Objective Data Vital Signs: Vital Signs Temp Pulse Resp BP Pulse Ox O2 Del Method O2 Flow Rate 99.1 F 88 18 159/62 H 96 Room Air 3 02/01/25 07:52 02/01/25 07:52 02/01/25 07:52 02/01/25 07:52 02/01/25 07:52 02/01/25 07:52 01/31/25 14:30 Oxygen Flow Rate (L/min) 3 Oxygen Delivery Method Room Air Weight: 193 lb Body Mass Index (BMI) 34.2 Intake & Output: Intake and Output for Last 24 Hours 01/30/25 01/31/25 02/01/25 23:59 23:59 23:59 Intake Total 1252.5 / 1252.5 99.25 / 99.25 Output Total 1550 / 1550 Balance -297.5 / -297.5 99.25 / 99.25 Lab / Micro Data 02/01/25 11:37 02/01/25 11:37 Labs: Laboratory Results - last 24 hr 01/31/25 16:33: Sodium 134, Potassium 3.7, Chloride 96 L, Carbon Dioxide 21.3, Anion Gap 17 H, BUN 14, Creatinine 0.75, Estim Creat Clear Calc 66.69, Est GFR (MDRD) Non-Af 84, BUN/Creatinine Ratio 18.0, Glucose 225 H, Calcium 8.8, Phosphorus 3.5, Magnesium 1.7 01/31/25 18:25: WBC 17.3 H, RBC 4.04 L, Hgb 12.2, Hct 35.7 L, MCV 88.4, MCH 30.2, MCHC 34.2, RDW Std Deviation 43.8, RDW Coeff of Deny 13.5, Plt Count 248, MPV 10.0, Immature Gran % (Auto) 0.900, Neut % (Auto) 90.6 H, Lymph % (Auto) 6.4 L, [place] % (Auto) 2.0, Eos % (Auto) 0.0, Baso % (Auto) 0.1, Absolute Neuts (auto) 15.7 H, Absolute Lymphs (auto) 1.11, Nucleated RBC % 0 01/31/25 22:38: POC Glucose 421 H 02/01/25 06:24: POC Glucose 135 H 02/01/25 11:37: WBC 14.9 H, RBC 3.52 L, Hgb 10.5 L, Hct 31.2 L, MCV 88.6, MCH 29.8, MCHC 33.7, RDW Std Deviation 43.9, RDW Coeff of Deny 13.6, Plt Count 203, MPV 10.1, Immature Gran % (Auto) 0.700, Neut % (Auto) 79.1 H, Lymph % (Auto) 13.4 L, [place] % (Auto) 6.5, Eos % (Auto) 0.1, Baso % (Auto) 0.2, Absolute Neuts (auto) 11.8 H, Absolute Lymphs (auto) 2.00, Nucleated RBC % 0, Sodium 133, Potassium 3.6, Chloride 97 L, Carbon Dioxide 21.6, Anion Gap 15, BUN 16, Creatinine 0.85, Estim Creat Clear Calc 62.77, Est GFR (MDRD) Non-Af 73, BUN/Creatinine Ratio 18.9, Glucose 252 H, Calcium 8.0 Micro: Microbiology 01/22/25 07:42 Nasal Secretion Nasal Screen MRSA/MSSA - Final Radiography Diagnostic Testing: Radiology Impression Lumbar Spine X-Ray 01/31/25 08:22 IMPRESSION: As above. Reading Location: [id number] Lumbar Spine X-Ray 02/01/25 05:32 IMPRESSION: No evidence for acute abnormality. Diffuse spondylosis. Reading [facility] Physical Exam Narrative Neurological examination of the lower extremity shows 5X5 power. Normal sensation across all dermatomes. Physical examination of the back and belly shows surgical dressings CDI. Const alert, oriented x3 and no apparent distress Assessment & Plan Assessment/Plan (1) Status post lumbar spinal fusion: PLAN: Plan Postop day 1 L4-5 fusion. Obtained reviewed x-rays today which show hardware and bone graft in good position. Patient has walked with PT/OT who has cleared her for home discharge. Reviewed restrictions of no bending, lifting, twisting. Educated and reviewed on the use of the incentive spirometer. The patient has passed gas and has tolerated a solid meal. Home meds include oxycodone, acetaminophen, meloxicam, methocarbamol, senna. OARRS reviewed. Dilaudid has been ordered by Dr. Issa for the patient in place of IV morphine. If patient is able to have pain control with this medication then we can potentially proceed with the home discharge today however if the patient's pain is uncontrolled she may have to stay another day. She will follow-up in 2 weeks in the clinic. Patient is in agreement.
[2025-02-01 12:50] LABS: Bedside Glucose 262 mg/dL (74-106)
[2025-02-01] MEDS: HYDROmorphone 0.5 MG/0.5 ML SYRINGE IV (13:14)
[2025-02-01] MEDS: Insulin Lispro 100 UNIT/ML INSULN.PEN SC (13:24)
[2025-02-01 15:11] VITALS: BP 162/57; PULSE 94; RESP 18; TEMP 36.8; O2SAT 95
[2025-02-01 15:32] VITALS: O2SAT 94
== END 2025-02-01 16:33 | disposition home or self-care (01) | DRG 402 ==
LOC: ACINP 15:16 → MS3 16:37
PROVIDERS: Family Medicine; Hospitalist; Student in an Organized Health Care Education/Training Program; Admitting Provider Orthopaedic Surgery Orthopaedic Surgery of the Spine; PCP Family Medicine; Referring Provider Orthopaedic Surgery Orthopaedic Surgery of the Spine; Visit Provider Orthopaedic Surgery Orthopaedic Surgery of the Spine
PROC: 0SG00A0 Fusion of Lumbar Vertebral Joint with Interbody Fusion Device, Anterior Approach, Anterior Column, Open Approach (ICD-10-PCS; principal; 2025-01-31 07:00)
DX: M48.062 Spinal stenosis, lumbar region with neurogenic claudication (principal); E11.9 Type 2 diabetes mellitus without complications; I10 Essential (primary) hypertension; J45.909 Unspecified asthma, uncomplicated; Z68.34 Body mass index [BMI] 34.0-34.9, adult; M43.16 Spondylolisthesis, lumbar region; M19.90 Unspecified osteoarthritis, unspecified site; E78.5 Hyperlipidemia, unspecified; I25.10 Atherosclerotic heart disease of native coronary artery without angina pectoris; K21.9 Gastro-esophageal reflux disease without esophagitis; Z83.3 Family history of diabetes mellitus; Z79.84 Long term (current) use of oral hypoglycemic drugs; M81.0 Age-related osteoporosis without current pathological fracture; E66.811 Obesity, class 1; Z79.2 Long term (current) use of antibiotics; Z79.82 Long term (current) use of aspirin; M85.80 Other specified disorders of bone density and structure, unspecified site; M51.379 Other intervertebral disc degeneration, lumbosacral region without mention of lumbar back pain or lower extremity pain; Z79.02 Long term (current) use of antithrombotics/antiplatelets
CPT/HCPCS: 36415; 72100; 76000; 80048; 82962; 83036; 83735; 84100; 85025; 86703; 86708; 86850; 86900; 86901; 87081; 93005; 94668; 97162; 97166; C1713; J2405

== ENCOUNTER 2025-04-12 08:30 | Outpatient (RCR) | payer MEDICARE, SELFPAY ==
[2025-04-05 08:26] VITALS: BP 153/66; PULSE 75; RESP 18; TEMP 35.9
--- NOTE | 2025-04-05 09:12 | HP.PCM_ITS ---
History of Present Illness Date of Service: 04/05/25 Chief Complaint: Bilateral Buttock Ulcer History of Wound: Ms. Baron is a 74-year-old referred to the wound center due to nonhealing bilateral buttock ulcers. History of spine surgery in January and since then, has had difficulty laying flat in bed and so has been sleeping in a recliner. Noted the area of ulceration a few weeks ago and since then, following a visit with her PCP a week ago has been applying Medihoney without significant improvement. Denies incontinent bowel movements. History of diabetes and last A1c was at 6.5. Appetite is good. Has been attempting to offload since she noted the ulceration. Feels well otherwise. [facility] Medical History Sepsis Post-menopausal Depression Walker as ambulation aid Bladder disease Low iron Back pain Dietary restriction History of pain when walking History of transesophageal echocardiography (CHERI) Wears glasses Anxiety Restless legs History of hiatal hernia Gastric reflux History of IBS Non-smoker History of edema History of echocardiogram Cardiology follow-up encounter Left carotid bruit Postoperative atrial fibrillation H/o difficulty anesthesia Stomach inflammation Carotid stenosis Hyperlipidemia Hypertension Diabetes Asthma Arthritis Home Medications Medication Instructions Recorded Last Taken Type montelukast 10 mg tablet 10 mg PO QHS ASTHMA 05/21/16 01/30/25 20:00 History cetirizine 10 mg capsule (Zyrtec) 5 mg PO DAILY allerg y symptoms 05/18/18 01/30/25 08:00 History Al hyd-Mg tr-alg ac-sod bicarb 80 1 tab PO DAILY PRN G 05/22/19 01/30/25 12:00 History mg-14.2 mg chewable tablet (Gaviscon) metformin 1,000 mg 24 hr 1,000 mg PO BID DIABETES 03/0301/30/25 20:00 History tablet,extended release (gastric reten.) albuterol sulfate 90 mcg/actuation 2 puff inhalation Q 6H PRN 11/04/22 01/22/24 History aerosol inhaler Shortness Of Breath Or Wheez ing aspirin 81 mg tablet,delayed 81 mg PO DAILY HEART HEAL TH 12/21/22 01/24/25 History release (Adult Low Dose Aspirin) glimepiride 4 mg tablet (Amaryl) 4 mg PO DAILY DIABETE S 03/11/23 01/30/25 06:00 History rosuvastatin 10 mg tablet (Crestor) 10 mg PO QHS HLD 0 09/17/23 01/30/25 20:00 History omeprazole 40 mg capsule,delayed 40 mg PO BID GERD 01/30/25 20:00 History
--- NOTE | 2025-04-05 09:12 | PCM.WC.HP ---
History of Present Illness Date of Service: 04/05/25 Chief Complaint: Bilateral Buttock Ulcer History of Wound: Ms. Baron is a 74-year-old referred to the wound center due to nonhealing bilateral buttock ulcers. History of spine surgery in January and since then, has had difficulty laying flat in bed and so has been sleeping in a recliner. Noted the area of ulceration a few weeks ago and since then, following a visit with her PCP a week ago has been applying Medihoney without significant improvement. Denies incontinent bowel movements. History of diabetes and last A1c was at 6.5. Appetite is good. Has been attempting to offload since she noted the ulceration. Feels well otherwise. [facility] Medical History Sepsis Post-menopausal Depression Walker as ambulation aid Bladder disease Low iron Back pain Dietary restriction History of pain when walking History of transesophageal echocardiography (CHERI) Wears glasses Anxiety Restless legs History of hiatal hernia Gastric reflux History of IBS Non-smoker History of edema History of echocardiogram Cardiology follow-up encounter Left carotid bruit Postoperative atrial fibrillation H/o difficulty anesthesia Stomach inflammation Carotid stenosis Hyperlipidemia Hypertension Diabetes Asthma Arthritis Home Medications Medication Instructions Recorded Last Taken Type montelukast 10 mg tablet 10 mg PO QHS ASTHMA 05/21/16 01/30/25 20:00 History cetirizine 10 mg capsule (Zyrtec) 5 mg PO DAILY allergy symptoms 05/18/18 01/30/25 08:00 History Al hyd-Mg tr-alg ac-sod bicarb 80 1 tab PO DAILY PRN GAS 05/22/19 01/30/25 12:00 History mg-14.2 mg chewable tablet (Gaviscon) metformin 1,000 mg 24 hr 1,000 mg PO BID DIABETES 05/22/19 01/30/25 20:00 History tablet,extended release (gastric reten.) albuterol sulfate 90 mcg/actuation 2 puff inhalation Q6H PRN 11/04/22 01/22/24 History aerosol inhaler Shortness Of Breath Or Wheezing aspirin 81 mg tablet,delayed 81 mg PO DAILY HEART HEALTH 12/21/22 01/24/25 History release (Adult Low Dose Aspirin) glimepiride 4 mg tablet (Amaryl) 4 mg PO DAILY DIABETES 03/11/23 01/30/25 06:00 History rosuvastatin 10 mg tablet (Crestor) 10 mg PO QHS HLD 09/17/23 01/30/25 20:00 History omeprazole 40 mg capsule,delayed 40 mg PO BID GERD 10/12/23 01/30/25 20:00 History release pioglitazone 45 mg tablet (Actos) 45 mg PO DAILY DIABETES 01/11/24 01/30/25 06:00 History lisinopril 20 1 tab PO DAILY htn 01/25/24 01/30/25 06:00 History mg-hydrochlorothiazide 12.5 mg tablet triamcinolone acetonide 0.1 % 1 applic topical QDAY PRN SKIN 05/03/24 Unknown History topical cream ipratropium 0.5 mg-albuterol 3 mg 3 ml inhalation Q20M PRN shortness 08/29/24 Unknown History (2.5 mg base)/3 mL nebulization of breath or wheezing soln nystatin 100,000 unit/gram topical 1 applic topical TID PRN YEAST 09/18/24 01/29/25 Rx powder (Nystop) INFECTION #15 mg sitagliptin phosphate 100 mg 100 mg PO QDAY diabetic 10/25/24 01/30/25 06:00 History tablet (Januvia) calcium carb-ergocalciferol (vit 2 tab PO BID supplement 01/17/25 01/30/25 12:00 History D2) 500 mg (1,250 mg)-200 unit tablet multivitamin with minerals-folic 1 tab PO DAILY supplement 01/17/25 01/30/25 12:00 History acid 120 mcg chewable tablet (Adult Multivitamin Gummies) magnesium 200 mg tablet 200 mg PO DAILY supplement 01/31/25 01/30/25 16:00 History acetaminophen 500 mg tablet 500 mg PO Q6H #30 tabs 02/01/25 Unknown Rx oxycodone 5 mg tablet 5 mg PO TID 03/02/25 Unknown History tizanidine 2 mg capsule 2 mg PO BID 03/02/25 Unknown History gabapentin 300 mg capsule 300 mg PO TID #21 caps 03/30/25 Unknown Rx Allergy/AdvReac Type Severity Reaction Status Date / Time doxycycline Allergy Mild unknown Verified 03/15/25 13:06 sulfamethoxazole (From Allergy Mild RED Verified 04/05/25 08:21 Bactrim) FACE/FLUSHED trimethoprim (From Bactrim) Allergy Mild RED Verified 04/05/25 08:21 FACE/FLUSHED amoxicillin (From Augmentin) Allergy Hives Verified 03/15/25 13:06 cefprozil (From Cefzil) Allergy Hives Verified 03/15/25 13:06 clavulanic acid (From Allergy Hives Verified 03/15/25 13:06 Augmentin) dextromethorphan (From Allergy RED Verified 04/05/25 08:21 NyQuil) FACE/FLUSHED doxylamine (From NyQuil) Allergy RED Verified 04/05/25 08:21 FACE/FLUSHED erythromycin base Allergy Hives Verified 03/15/25 13:06 gatifloxacin (From Tequin) Allergy RED Verified 04/05/25 08:21 FACE/FLUSHED lincomycin Allergy RED Verified 04/05/25 08:21 FACE/FLUSHED metoclopramide (From Reglan) Allergy AGITATION Verified 04/05/25 08:21 pseudoephedrine (From NyQuil) Allergy RED FACE Verified 04/05/25 08:21 empagliflozin (From AdvReac Severe UTI/sepsis Verified 03/15/25 13:06 Jardiance) morphine AdvReac Intermediate tachycardia Verified 03/15/25 13:06 gabapentin AdvReac Swelling le Verified 04/05/25 08:21 Family History Father No problems noted. Mother CVA (cerebral vascular accident) Heart disease Sister Colon cancer Diabetes Brother Thyroid disorder Thyroid cancer Sister Cancer vaginal Diabetes Brother Diabetes Surgical History Hx of vascular surgery Hx of right cataract extraction Hx of left cataract extraction History of colonoscopy History of esophagogastroduodenoscopy (EGD) History of cardiac catheterization H/O removal of cyst History of lumpectomy H/O knee surgery History of coronary artery bypass graft x 3 (~11/26/22) fallopian tube surgery Hx of cholecystectomy H/O oophorectomy H/O tubal ligation History of ear surgery Social History household members: spouse housing: house Smoking Status: Never smoker alcohol intake: never substance use type: does not use caffeine: Yes what type of physical activity do you participate in: walking frequency: 3-4 times per week seatbelt use: always do you feel safe at home: Yes additional social history: [place] Patient and both retired ROS Constitutional Constitutional: Denies change in weight, daytime sleepiness, fatigue, headache(s), increased appetite, lethargy, malaise or night sweats Eyes Eyes: Denies change in eye color, change in vision, discharge from eye(s), discongugate gaze, double vision, dry eyes or erythema ENT HEENT: Denies dysphagia, epistaxis, facial pain, halitosis, headache(s), hearing loss, hoarseness or lip swelling Cardiovascular Cardiovascular: Denies chest pain at rest, chest pain with activity, claudication, clubbing, cold extremities, cyanosis or dyspnea at rest Respiratory/Chest Respiratory/Chest: Denies difficulty clearing secretions, excessive phlegm production, hemoptysis, hoarseness, inability to speak or pain on inspiration Gastrointestinal Gastrointestinal: Denies change in bowel habits, chewing difficulty, cramping, diarrhea, dry heaves, dyspepsia, dysphagia or early satiety Genitourinary Genitourinary: Denies abdominal discomfort, burning urination or flank pain Musculoskeletal Musculoskeletal: Denies difficulty walking, extremity pain, muscle cramps, muscle spasms, muscle weakness or neck pain Integumentary Integumentary: Reports skin ulcer; Denies bleeding lesions, change in pigmentation, dry skin, furuncle, jaundice or skin swelling Neurologic Neurologic: Denies behavior changes, burning sensations, convulsions, focal weakness, frequent falls, lack of coordination, loss of vision or memory loss Psychiatric Psychiatric: Denies behavioral changes, change in appetite, cognitive impairment, confusion, difficulty concentrating, hallucinations, irritability or memory loss Endocrine Endocrinology: Denies cold intolerance, deepening of the voice, excessive sweating, flushing, increase in ring/shoe/hat size, palpitations or polyphagia Allergic/Immunologic Allergic/Immunologic: Denies lip swelling, seasonal rhinorrhea, throat swelling, tongue swelling, eczemia or wheezing Vital Signs Vital Signs Vital Signs: 04/05/25 08:26 Temperature 96.7 F L Temperature Source Temporal Pulse Rate 75 Respiratory Rate 18 Blood Pressure 153/66 H Blood Pressure Mean 95 Blood Pressure Source Monitor Blood Pressure Position Sitting Blood Pressure Location Left Arm Oxygen Delivery Method Room Air Physical Exam Const alert, oriented x3 and no apparent distress General Appearance: cooperative, comfortable and well kempt HEENT normocephalic and head/scalp atraumatic Eyes EOMs intact bilaterally Neck full ROM and supple General: normal visual inspection Resp normal respiratory effort and normal air movement Effort and Inspection: able to speak in complete sentences Cardio regular rate and regular rhythm GI soft to palpation, non-tender and non-distended Skin Wounds: wounds noted size Size: See clinical note, bed with slough, margins well approximated, no odor and surrounding erythema Neuro oriented x3, CN's II-XII intact bilaterally, moves all extremities and no focal motor deficits Psych mental status grossly normal, thought process normal, cooperative, affect normal and speech normal Debridement Note Debridement Note Wound debrided: Left buttock Wound Grade/Stage: Stage II Type of Debridement: Excisional debridement Anesthesia Used: 5% Lidocaine Gel Depth: Down to and including healthy tissue and in the subcutaneous layer Percentage of wound debrided: 100 Instrument Used: 5mm curette Tissue Removed: Slough and vitalized tissue Severity: Fat Layer Exposed Amount of bleeding with debridement: Mild Bleeding Controlled with: Pressure Patient tolerated procedure: Patient tolerated procedure well Post-Debridement Measurements and Additional Note: Post-Debridement Measurements/Treatment JUAN JOSÉ - Nurse 1 - General Ulcer Assessment Start: 04/05/25 08:12 Freq: Status: Active Protocol: SOM Activity Type Activity Date Activity User E-sign Co-sign Detail Recorded Client Recorded Date Recorded By Document 04/05/25 08:26 KAREN [id number] 04/05/25 08:30 DS 04/05/25 08:26 - Today's Visit Information Type of service Initial Visit Arrival Mode Ambulatory, Walker Accompanied by DANIEL Patient Identification Verified (Name & Yes ) Vital Signs Temperature (97.8 F-99.1 F) 96.7 F L Temperature Source Temporal Pulse Rate (60-100) 75 Pulse Location Monitor Respiratory Rate (12-18) 18 Respiratory rate source Observation Oxygen Delivery Method Room Air Blood Pressure (90/60-120/80) 153/66 H Blood Pressure Mean 95 Source Monitor Position Sitting Blood Pressure Location Left Arm Pain Scale: 0-10 Numeric Is Patient Pain Free? No COCCYX -Description Dull,Aching -Intensity 3 -Duration (hours) Chronic -Pain Behavior No Change in Behavior -Pain Aggravating Factors ADL's -Alleviating Factors/Interventions Turning/ Repositioning Communication Assessment Preferred language [place] Able to Read Yes Able to Write Yes Right Hearing Abillity Normal Left Hearing Abillity Normal Visual Assistive Devices Glasses Teaching Assessment Preferences Verbal Barriers to Learning None Readiness To Learn Good Willingness to Engage in Self Management High Activies Readiness to Engage in Self Management High Activities Anxiety Level Calm Cooperation Cooperative Perception Coherent Interest in Health Problem Asks Questions Education Importance Acknowledges Need Does Patient Smoke tobacco or other No substances Is Patient Diabetic Yes Functional Assessment Recent Decline in Ability to Perform Ambulation Assistive Device With Patient Yes List Device(s) with Patient WALKER 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 Cultural/Religion Needs that may affect No Treatment Plan Teaching: Wound Center *Welcome to the Wound Center -Person Taught Patient, Significant Other -Teaching Method Discussion -Response to teaching Verbalize Understanding WC - Nurse 1 - General Ulcer Measurement Start: 04/05/25 08:12 Freq: Status: Active Protocol: Activity Type Activity Date Activity User E-sign Co-sign Detail Recorded Client Recorded Date Recorded By Document 04/05/25 08:32 DS [id number] 04/05/25 08:40 DS 04/05/25 08:32 Wound Center Nurse 1 #2- R BUTTOCK CLUSTER -Current Size (cm) - Length 2.5 -Current Size (cm) - Width 1.0 -Current Size (cm) - Depth 0.1 -Total Square Cm 2.50 -Date of Last Picture (Recall this 04/05/25 field) -Photo Taken Yes -Texture (Yahaira-wound Skin Appearance) Assessed -Moisture (Yahaira-wound Skin Appearance) Assessed -Color (Yahaira-wound Skin Appearance) Assessed -Temperature (Yahaira-wound Skin No Abnormality Appearance) (Pt Warm) -Tenderness on Palpation (Yahaira-wound No Skin Appearance) -Ulcer Cleansing Rinsed/ Irrigated with Saline -Foul Odor after Cleansing No -Anesthetic Used 5% Lidocaine Gel #1 L BUTTOCK CLUSTER -Current Size (cm) - Length 2.2 -Current Size (cm) - Width 1.0 -Current Size (cm) - Depth 0.1 -Total Square Cm 2.20 -Date of Last Picture (Recall this 04/05/25 field) -Photo Taken Yes -Texture (Yahaira-wound Skin Appearance) Assessed -Moisture (Yahaira-wound Skin Appearance) Assessed -Color (Yahaira-wound Skin Appearance) Assessed -Temperature (Yahaira-wound Skin No Abnormality Appearance) (Pt Warm) -Tenderness on Palpation (Yahaira-wound No Skin Appearance) -Ulcer Cleansing Soap and Water -Anesthetic Used 5% Lidocaine Gel WC - Nurse 2 - General Ulcer CM Notes Start: 04/05/25 08:12 Freq: Status: Active Protocol: Activity Type Activity Date Activity User E-sign Co-sign Detail Recorded Client Recorded Date Recorded By Document 04/05/25 08:48 GM [id number] 04/05/25 08:53 GM 04/05/25 08:48 Wound Center Nurse 2 #2- R BUTTOCK CLUSTER -Time 08:48 -Correct Patient Yes -Correct Side, Site, Position Yes -Correct Procedure Yes -Procedure Performed Yes -Type of Procedure Debridement -Clinical Debridement Subcutaneous -Tissue Removed Subcutaneous -Post Debridement (cm) - Length 2.5 -Post Debridement (cm) - Width 1.0 -Post Debridement (cm) - Depth 0.1 -Total Square (Post) (cm) 2.50 -Area of Debridement (cm) - Length 2.5 -Area of Debridement (cm) - Width 1.0 -Total Square (Area) (cm) 2.50 -Tunneling No -Undermining/Tunneling No -Circular Undermining No -Wound/Ulcer Outcome Not Healed -Ulcer Cleansing Rinsed/ Irrigated with Saline -Foul Odor after Cleansing No -Bioengineered Tissue No -Bleeding Controlled with Pressure -Treatment Response Procedure Tolerated Well -Offloading No -Debridement - Subq, 1st 20sq cm No #1 L BUTTOCK CLUSTER -Time 08:48 -Correct Patient Yes -Correct Side, Site, Position Yes -Correct Procedure Yes -Procedure Performed Yes -Type of Procedure Debridement -Clinical Debridement Subcutaneous -Tissue Removed Subcutaneous -Post Debridement (cm) - Length 2.0 -Post Debridement (cm) - Width 1.0 -Post Debridement (cm) - Depth 0.1 -Total Square (Post) (cm) 2.00 -Area of Debridement (cm) - Length 2.0 -Area of Debridement (cm) - Width 1.0 -Total Square (Area) (cm) 2.00 -Tunneling No -Undermining/Tunneling No -Circular Undermining No -Wound/Ulcer Outcome Not Healed -Ulcer Cleansing Rinsed/ Irrigated with Saline -Foul Odor after Cleansing No -Bioengineered Tissue No -Bleeding Controlled with Pressure -Treatment Response Procedure Tolerated Well -Offloading No -Debridement - Subq, 1st 20sq cm Yes Pain Scale: 0-10 Numeric Is Patient Pain Free? Yes Additional Wound Wound debrided: Right buttock Wound Grade/Stage: Stage II Type of Debridement: Excisional debridement Depth: Down to and including healthy tissue and in the subcutaneous layer Percentage of wound debrided: 100 Instrument Used: 5mm curette Tissue Removed: Slough and vitalized tissue Severity: Fat Layer Exposed Amount of bleeding with debridement: Mild Bleeding Controlled with: Pressure Patient tolerated procedure: Patient tolerated procedure well Charges/Coding Visit Charges Office Visits / Consults: [id number] OV L3 Est 20min Procedures Integumentary [id number]: [id number] Dahlia subq tissue 20 sq cm/< Assessment/Plan Assessment/Plan (1) Pressure ulcer of right buttock, stage 2: CODE(S): L89.312 - Pressure ulcer of right buttock, stage 2 (2) Pressure ulcer of left buttock, stage 2: CODE(S): L89.322 - Pressure ulcer of left buttock, stage 2 (3) DM type 2 (diabetes mellitus, type 2): CODE(S): E11.9 - Type 2 diabetes mellitus without complications PLAN: Plan Debridement done as documented above, procedure was well-tolerated. No clinical concerns for infection. No cultures taken at this time however, if no significant improvement or if worsening is noted at next visit, we will culture. Had done well in Promogran in the past so we will start lightly moistened Promogran, cover with Adaptic and foam dressing, change daily to twice daily depending on drainage. Continue offloading, optimal protein intake and diabetes control. As above, recent A1c was at 6.5. Her questions were answered and she was advised to call with any further questions or concerns. Follow-up in a week or sooner if needed. This note was generated with [employer] software. It may contain incorrect words, spelling, and punctuation that were not noted in checking the note before signing.
--- NOTE | 2025-04-06 08:24 | WC ---
PHOTO-RIGHT BUTTOCKS 04/05/25
--- NOTE | 2025-04-06 08:30 | WC ---
PHOTO-LEFT BUTTOCK 04/05/25
[2025-04-12 08:31] VITALS: BP 139/74; PULSE 82; RESP 18; TEMP 36.4
--- NOTE | 2025-04-12 09:09 | PCM.WC.PN ---
History of Present Illness Date of Service: 04/12/25 Chief Complaint: Bilateral Buttock Ulcer History of Wound: Ms. Baron is a 74-year-old referred to the wound center due to nonhealing bilateral buttock ulcers. History of spine surgery in January and since then, has had difficulty laying flat in bed and so has been sleeping in a recliner. Noted the area of ulceration a few weeks ago and since then, following a visit with her PCP a week ago has been applying Medihoney without significant improvement. Denies incontinent bowel movements. History of diabetes and last A1c was at 6.5. Appetite is good. Has been attempting to offload since she noted the ulceration. Feels well otherwise. Progress of Wound: No acute concerns reported at this time. Still unable to lay in bed due to significant spasms. Still awaiting insurance approval for cushion for her chair/recliner. Objective Data Objective Data Vital Signs: Vital Signs Temp Pulse Resp BP O2 Del Method 97.5 F L 82 18 139/74 H Room Air 04/12/25 08:31 04/12/25 08:31 04/12/25 08:31 04/12/25 08:31 04/12/25 08:31 Oxygen Delivery Method Room Air Charges/Coding Procedures Integumentary 111xxx-113xx: [id number] Dahlia subq tissue 20 sq cm/< Physical Exam Const alert, oriented x3 and no apparent distress General Appearance: cooperative, comfortable and well kempt HEENT normocephalic and head/scalp atraumatic Eyes EOMs intact bilaterally Neck full ROM and supple General: normal visual inspection Resp normal respiratory effort Effort and Inspection: able to speak in complete sentences Skin Wounds: wounds noted size Size: See clinical note, bed with slough, margins well approximated, no odor and surrounding erythema Neuro oriented x3, CN's II-XII intact bilaterally, moves all extremities and no focal motor deficits Psych mental status grossly normal, thought process normal, cooperative, affect normal and speech normal Debridement Note Debridement Note Wound debrided: Left buttock Wound Grade/Stage: Stage II Type of Debridement: Excisional debridement Anesthesia Used: 4% Lidocaine Solution Depth: Down to and including healthy tissue Percentage of wound debrided: 100 Instrument Used: 3mm curette Tissue Removed: Slough and devitalized tissue Severity: Fat Layer Exposed Amount of bleeding with debridement: Mild Bleeding Controlled with: Pressure Patient tolerated procedure: Patient tolerated procedure well Post-Debridement Measurements and Additional Note: Post-Debridement Measurements/Treatment - Nurse 1 - General Ulcer Assessment Start: 04/05/25 08:12 Freq: Status: Active Protocol: SOM Activity Type Activity Date Activity User E-sign Co-sign Detail Recorded Client Recorded Date Recorded By Document 04/05/25 08:26 DS [id number] 04/05/25 08:30 DS Document 04/12/25 08:31 DS [id number] 04/12/25 08:43 DS 04/05/25 04/12/25 08:26 08:31 - Today's Visit Information Type of service Initial Visit Follow-up Visit (Physician/[employer] ) Arrival Mode Ambulatory, Ambulatory, Walker Walker Accompanied by DANIEL Patient Identification Verified (Name & Yes Yes ) Patient Requires Transmission-Based No Precautions Safety Precautions Fall Prevention Vital Signs Temperature (97.8 F-99.1 F) 96.7 F L 97.5 F L Temperature Source Temporal Temporal Pulse Rate (60-100) 75 82 Pulse Location Monitor Monitor Respiratory Rate (12-18) 18 18 Respiratory rate source Observation Observation Oxygen Delivery Method Room Air Room Air Blood Pressure (90/60-120/80) 153/66 H 139/74 H Blood Pressure Mean (mm Hg) 95 95 Source Monitor Monitor Position Sitting Sitting Blood Pressure Location Left Arm Left Arm History Since Last Visit- (Skip if this is Patient's initial visit) Have you changed medications since your No last visit? Any new allergies or adverse reactions No Had a fall/change in ADL's that may No increase risk of falls Signs or symptoms of abuse and/or No neglect since last visit Have you been in the hospital since your No last visit? Has dressing in place as prescribed Yes Has compression in place as prescribed N/A Has offloadiing in place as prescribed N/A Experienced any changes in pain level or No management Left Footwear Regular Shoe Right Footwear Regular Shoe Pain Scale: 0-10 Numeric Is Patient Pain Free? No No COCCYX -Description Dull,Aching Throbbing -Intensity 3 6 -Duration (hours) Chronic -Pain Behavior No Change in No Change in Behavior Behavior -Pain Aggravating Factors ADL's -Alleviating Factors/Interventions Turning/ Will continue Repositioning to monitor Communication Assessment Preferred language Kiswahili Able to Read Yes Able to Write Yes Right Hearing Abillity Normal Left Hearing Abillity Normal Visual Assistive Devices Glasses Teaching Assessment Preferences Verbal Barriers to Learning None Readiness To Learn Good Willingness to Engage in Self Management High Activies Readiness to Engage in Self Management High Activities Anxiety Level Calm Cooperation Cooperative Perception Coherent Interest in Health Problem Asks Questions Education Importance Acknowledges Need Does Patient Smoke tobacco or other No substances Is Patient Diabetic Yes Functional Assessment Recent Decline in Ability to Perform Ambulation Assistive Device With Patient Yes List Device(s) with Patient WALKER Culture/Yarsanism/Manager Reimbursement Cultural/Yarsanism Needs that may affect No Treatment Plan Teaching: Wound Center *Welcome to the Wound Center -Person Taught Patient, Significant Other -Teaching Method Discussion -Response to teaching Verbalize Understanding WC - Nurse 1 - General Ulcer Measurement Start: 04/05/25 08:12 Freq: Status: Active Protocol: Activity Type Activity Date Activity User E-sign Co-sign Detail Recorded Client Recorded Date Recorded By Document 04/05/25 08:32 DS [id number] 04/05/25 08:40 DS Document 04/12/25 08:31 DS [id number] 04/12/25 08:43 DS 04/05/25 04/12/25 08:32 08:31 Wound Center Nurse 1 #2- R BUTTOCK CLUSTER -Current Size (cm) - Length 2.5 2.5 -Current Size (cm) - Width 1.0 0.7 -Current Size (cm) - Depth 0.1 0.1 -Total Square Cm 2.50 1.75 -Date of Last Picture (Recall this 04/05/25 04/05/25 field) -Photo Taken Yes -Tunneling No -Undermining/Tunneling No -Circular Undermining No -Exudate Amt None Present -Wound Margin Distinct, Outline Attached -Granulation Amt Medium (34-66%) -Granulation Quality [place] -Necrosis Amt Medium (34-66%) -Necrotic Tissue Type Adherent Slough -Texture (Yahaira-wound Skin Appearance) Assessed Assessed -Moisture (Yahaira-wound Skin Appearance) Assessed Assessed -Color (Yahaira-wound Skin Appearance) Assessed Assessed -Temperature (Yahaira-wound Skin No Abnormality No Abnormality Appearance) (Pt Warm) (Pt Warm) -Tenderness on Palpation (Yahaira-wound No No Skin Appearance) -Ulcer Cleansing Rinsed/ Soap and Water Irrigated with Saline -Foul Odor after Cleansing No -Anesthetic Used 5% Lidocaine 5% Lidocaine Gel Gel #1 L BUTTOCK CLUSTER -Current Size (cm) - Length 2.2 1.8 -Current Size (cm) - Width 1.0 1.0 -Current Size (cm) - Depth 0.1 0.1 -Total Square Cm 2.20 1.80 -Date of Last Picture (Recall this 04/05/25 04/05/25 field) -Photo Taken Yes -Tunneling No -Undermining/Tunneling No -Circular Undermining No -Exudate Amt None Present -Wound Margin Distinct, Outline Attached -Granulation Amt Small (1-33%) -Granulation Quality [place] -Necrosis Amt Medium (34-66%) -Necrotic Tissue Type Adherent Slough -Texture (Yahaira-wound Skin Appearance) Assessed Assessed -Moisture (Yahaira-wound Skin Appearance) Assessed Assessed -Color (Yahaira-wound Skin Appearance) Assessed Assessed -Temperature (Yahaira-wound Skin No Abnormality No Abnormality Appearance) (Pt Warm) (Pt Warm) -Tenderness on Palpation (Yahaira-wound No No Skin Appearance) -Ulcer Cleansing Soap and Water Soap and Water -Foul Odor after Cleansing No -Anesthetic Used 5% Lidocaine 5% Lidocaine Gel Gel WC - Nurse 2 - General Ulcer CM Notes Start: 04/05/25 08:12 Freq: Status: Active Protocol: Activity Type Activity Date Activity User E-sign Co-sign Detail Recorded Client Recorded Date Recorded By Document 04/05/25 08:48 [id number] 04/05/25 08:53 Document 04/12/25 08:57 [id number] 04/12/25 09:00 04/05/25 04/12/25 08:48 08:57 Wound Center Nurse 2 #2- R BUTTOCK CLUSTER -Time 08:48 08:57 -Correct Patient Yes Yes -Correct Side, Site, Position Yes Yes -Correct Procedure Yes Yes -Procedure Performed Yes Yes -Type of Procedure Debridement Debridement -Clinical Debridement Subcutaneous Subcutaneous -Tissue Removed Subcutaneous Subcutaneous -Post Debridement (cm) - Length 2.5 1.5 -Post Debridement (cm) - Width 1.0 0.6 -Post Debridement (cm) - Depth 0.1 0.1 -Total Square (Post) (cm) 2.50 0.90 -Area of Debridement (cm) - Length 2.5 1.5 -Area of Debridement (cm) - Width 1.0 0.6 -Total Square (Area) (cm) 2.50 0.90 -Tunneling No No -Undermining/Tunneling No No -Circular Undermining No No -Wound/Ulcer Outcome Not Healed Not Healed -Ulcer Cleansing Rinsed/ Rinsed/ Irrigated with Irrigated with Saline Saline -Foul Odor after Cleansing No No -Bioengineered Tissue No No -Bleeding Controlled with Pressure Pressure -Treatment Response Procedure Procedure Tolerated Well Tolerated Well -Offloading No No -Debridement - Subq, 1st 20sq cm No No #1 L BUTTOCK CLUSTER -Time 08:48 08:57 -Correct Patient Yes Yes -Correct Side, Site, Position Yes Yes -Correct Procedure Yes Yes -Procedure Performed Yes Yes -Type of Procedure Debridement Debridement -Clinical Debridement Subcutaneous Subcutaneous -Tissue Removed Subcutaneous Subcutaneous -Post Debridement (cm) - Length 2.0 2.2 -Post Debridement (cm) - Width 1.0 0.2 -Post Debridement (cm) - Depth 0.1 0.1 -Total Square (Post) (cm) 2.00 0.44 -Area of Debridement (cm) - Length 2.0 2.2 -Area of Debridement (cm) - Width 1.0 0.2 -Total Square (Area) (cm) 2.00 0.44 -Tunneling No No -Undermining/Tunneling No No -Circular Undermining No No -Wound/Ulcer Outcome Not Healed Not Healed -Ulcer Cleansing Rinsed/ Rinsed/ Irrigated with Irrigated with Saline Saline -Foul Odor after Cleansing No No -Bioengineered Tissue No No -Bleeding Controlled with Pressure Pressure -Treatment Response Procedure Procedure Tolerated Well Tolerated Well -Offloading No No -Debridement - Subq, 1st 20sq cm Yes Yes Pain Scale: 0-10 Numeric Is Patient Pain Free? Yes Yes - Nurse 3 - General Ulcer D/C NN Start: 04/05/25 08:12 Freq: Status: Active Protocol: Activity Type Activity Date Activity User E-sign Co-sign Detail Recorded Client Recorded Date Recorded By Document 04/05/25 09:11 [email or web address] [id number] 04/05/25 09:12 [email or web address] 04/05/25 09:11 Wound Care Center Nurse 3 #2- R BUTTOCK CLUSTER -Primary Dressing Applied NonAdherent Contact Layer, Promogran, Silicone Border Foam 4x4 -Promogran 1 -Silicone Border Foam 4x4 1 #1 L BUTTOCK CLUSTER -Primary Dressing Applied Silicone Border Foam 4x4 -Other Dressing PROMOGRAN WITH ADAPTIC -Silicone Border Foam 4x4 1 Pain Scale: 0-10 Numeric Is Patient Pain Free? Yes WC - Visit Discharge Discharge Condition Stable Ambulatory Status Ambulatory, Walker Transportation Private Auto Accompanied by Medication Reconcilliation completed & No provided to patient/care provider Clinical Summary of Care Provided Yes Additional Wound Wound debrided: Right buttock Wound Grade/Stage: Stage II Type of Debridement: Excisional debridement Anesthesia Used: 4% Lidocaine Solution Depth: Down to and including healthy tissue Percentage of wound debrided: 100 Instrument Used: 3mm curette Tissue Removed: Slough and devitalized tissue Severity: Fat Layer Exposed Amount of bleeding with debridement: Mild Bleeding Controlled with: Pressure Patient tolerated procedure: Patient tolerated procedure well Assessment/Plan Assessment/Plan (1) Pressure ulcer of right buttock, stage 2: CODE(S): L89.312 - Pressure ulcer of right buttock, stage 2 (2) Pressure ulcer of left buttock, stage 2: CODE(S): L89.322 - Pressure ulcer of left buttock, stage 2 (3) DM type 2 (diabetes mellitus, type 2): CODE(S): E11.9 - Type 2 diabetes mellitus without complications PLAN: Plan Debridement done as documented above, procedure was well-tolerated. Some improvement noted since her last visit. As above, still sitting a lot due to significant back pain, spasms and inability to lay in bed. Still awaiting insurance approval for offloading cushion. Significant limitation to healing due to pressure/high risk for reoccurrence. Continue lightly moistened Promogran, cover with Adaptic and foam dressing, change daily to twice daily depending on drainage. Continue offloading as best as possible, optimal protein intake and diabetes control. Her questions were answered and she was advised to call with any further questions or concerns. Follow-up in 2 weeks due to inconvenience with visits and back pain. This note was generated with [employer] software. It may contain incorrect words, spelling, and punctuation that were not noted in checking the note before signing.
== END 2025-04-15 23:59 | disposition home or self-care (01) ==
LOC: WC 08:30
PROVIDERS: PCP Family Medicine; Referring Provider Family Medicine; Visit Provider Internal Medicine
DX: L89.312 Pressure ulcer of right buttock, stage 2 (principal); L89.322 Pressure ulcer of left buttock, stage 2; E11.9 Type 2 diabetes mellitus without complications
CPT/HCPCS: 11042; 99213; G0463

== ENCOUNTER 2025-05-10 08:30 | Outpatient (RCR) | payer MEDICARE, SELFPAY ==
[2025-04-26 08:52] VITALS: BP 141/74; PULSE 93; RESP 18; TEMP 36.3
--- NOTE | 2025-04-26 09:18 | PCM.WC.PN ---
History of Present Illness Date of Service: 04/26/25 Chief Complaint: Bilateral Buttock Ulcer History of Wound: Ms. Baron is a 74-year-old referred to the wound center due to nonhealing bilateral buttock ulcers. History of spine surgery in January and since then, has had difficulty laying flat in bed and so has been sleeping in a recliner. Noted the area of ulceration a few weeks ago and since then, following a visit with her PCP a week ago has been applying Medihoney without significant improvement. Denies incontinent bowel movements. History of diabetes and last A1c was at 6.5. Appetite is good. Has been attempting to offload since she noted the ulceration. Feels well otherwise. Progress of Wound: No acute concerns at this time. Recently restarted physical therapy and had a session yesterday during which session she was able to lay somewhat. Ordered a hospital bed and she is hopeful that she can get to lay down and offload her buttock area. Objective Data Objective Data Vital Signs: Vital Signs Temp Pulse Resp BP 97.4 F L 93 18 141/74 H 04/26/25 08:52 04/26/25 08:52 04/26/25 08:52 04/26/25 08:52 Charges/Coding Procedures Integumentary [id number]: [id number] Dahlia subq tissue 20 sq cm/< Physical Exam Const alert, oriented x3 and no apparent distress General Appearance: cooperative, comfortable and well kempt HEENT normocephalic and head/scalp atraumatic Eyes EOMs intact bilaterally Neck full ROM and supple General: normal visual inspection Resp normal respiratory effort Effort and Inspection: able to speak in complete sentences Skin Wounds: wounds noted size Size: See clinical note, bed with slough, margins well approximated, no odor and surrounding erythema Neuro oriented x3, CN's II-XII intact bilaterally, moves all extremities and no focal motor deficits Psych mental status grossly normal, thought process normal, cooperative, affect normal and speech normal Debridement Note Debridement Note Wound debrided: Left buttock Wound Grade/Stage: Stage II Type of Debridement: Excisional debridement Anesthesia Used: 5% Lidocaine Gel Depth: Down to and including healthy tissue and in the subcutaneous layer Percentage of wound debrided: 100 Instrument Used: 3mm curette Tissue Removed: Slough and devitalized tissue Severity: Fat Layer Exposed Amount of bleeding with debridement: Mild Bleeding Controlled with: Pressure Patient tolerated procedure: Patient tolerated procedure well Post-Debridement Measurements and Additional Note: Post-Debridement Measurements/Treatment - Nurse 1 - General Ulcer Assessment Start: 04/26/25 08:52 Freq: Status: Active Protocol: SOM Activity Type Activity Date Activity User E-sign Co-sign Detail Recorded Client Recorded Date Recorded By Document 04/26/25 08:52 [email or web address] [id number] 04/26/25 08:59 04/26/25 08:52 - Today's Visit Information Type of service Follow-up Visit (Physician/[facility] ) Arrival Mode Wheelchair Patient Identification Verified (Name & Yes ) Vital Signs Temperature (97.8 F-99.1 F) 97.4 F L Temperature Source Temporal Pulse Rate (60-100) 93 Pulse Location Monitor Respiratory Rate (12-18) 18 Blood Pressure (90/60-120/80) 141/74 H Blood Pressure Mean (mm Hg) 96 Source Monitor Position Sitting Blood Pressure Location Right Arm History Since Last Visit- (Skip if this is Patient's initial visit) Have you changed medications since your No last visit? Any new allergies or adverse reactions No Had a fall/change in ADL's that may No increase risk of falls Signs or symptoms of abuse and/or No neglect since last visit Have you been in the hospital since your No last visit? Has dressing in place as prescribed Yes Has compression in place as prescribed N/A Has offloadiing in place as prescribed N/A Experienced any changes in pain level or No management Left Footwear Regular Shoe Right Footwear Regular Shoe Pain Scale: 0-10 Numeric Is Patient Pain Free? Yes - Nurse 1 - General Ulcer Measurement Start: 04/26/25 08:52 Freq: Status: Active Protocol: Activity Type Activity Date Activity User E-sign Co-sign Detail Recorded Client Recorded Date Recorded By Document 04/26/25 08:52 [email or web address] [id number] 04/26/25 08:59 04/26/25 08:52 Wound Center Nurse 1 #2- R BUTTOCK CLUSTER -Current Size (cm) - Length 0.2 -Current Size (cm) - Width 0.2 -Current Size (cm) - Depth 0.1 -Total Square Cm 0.04 -Exudate Amt Small -Exudate Type Serosanguineous -Wound Margin Distinct, Outline Attached -Granulation Amt Large (67-100%) -Granulation Quality [place] -Texture (Yahaira-wound Skin Appearance) Assessed -Moisture (Yahaira-wound Skin Appearance) Assessed -Color (Yahaira-wound Skin Appearance) Assessed -Temperature (Yahaira-wound Skin No Abnormality Appearance) (Pt Warm) -Tenderness on Palpation (Yahaira-wound No Skin Appearance) -Ulcer Cleansing Rinsed/ Irrigated with Saline -Foul Odor after Cleansing No -Anesthetic Used 5% Lidocaine Gel #1 L BUTTOCK CLUSTER -Current Size (cm) - Length 0.5 -Current Size (cm) - Width 0.5 -Current Size (cm) - Depth 0.1 -Total Square Cm 0.25 -Date of Last Picture (Recall this 04/26/25 field) -Exudate Amt Small -Exudate Type Serosanguineous -Wound Margin Distinct, Outline Attached -Granulation Amt Medium (34-66%) -Granulation Quality Red -Necrosis Amt Small (1-33%) -Necrotic Tissue Type Adherent Slough -Texture (Yahaira-wound Skin Appearance) Assessed -Moisture (Yahaira-wound Skin Appearance) Assessed -Color (Yahaira-wound Skin Appearance) Assessed -Temperature (Yahaira-wound Skin No Abnormality Appearance) (Pt Warm) -Tenderness on Palpation (Yahaira-wound No Skin Appearance) -Ulcer Cleansing Rinsed/ Irrigated with Saline -Foul Odor after Cleansing No -Anesthetic Used 5% Lidocaine Gel WC - Nurse 2 - General Ulcer CM Notes Start: 04/26/25 08:52 Freq: Status: Active Protocol: Activity Type Activity Date Activity User E-sign Co-sign Detail Recorded Client Recorded Date Recorded By Document 04/26/25 09:10 [id number] 04/26/25 09:15 04/26/25 09:10 Wound Center Nurse 2 #2- R BUTTOCK CLUSTER -Time 09:11 -Correct Patient Yes -Correct Side, Site, Position Yes -Correct Procedure Yes -Procedure Performed Yes -Type of Procedure Debridement -Clinical Debridement Subcutaneous -Tissue Removed Subcutaneous -Post Debridement (cm) - Length 0.3 -Post Debridement (cm) - Width 0.2 -Post Debridement (cm) - Depth 0.1 -Total Square (Post) (cm) 0.06 -Area of Debridement (cm) - Length 0.3 -Area of Debridement (cm) - Width 0.2 -Total Square (Area) (cm) 0.06 -Tunneling No -Undermining/Tunneling No -Circular Undermining No -Wound/Ulcer Outcome Not Healed -Ulcer Cleansing Rinsed/ Irrigated with Saline -Foul Odor after Cleansing No -Bioengineered Tissue No -Bleeding Controlled with Pressure -Treatment Response Procedure Tolerated Well -Offloading No -Debridement - Subq, 1st 20sq cm No #1 L BUTTOCK CLUSTER -Time 09:11 -Correct Patient Yes -Correct Side, Site, Position Yes -Correct Procedure Yes -Procedure Performed Yes -Type of Procedure Debridement -Clinical Debridement Subcutaneous -Tissue Removed Subcutaneous -Post Debridement (cm) - Length 0.5 -Post Debridement (cm) - Width 0.5 -Post Debridement (cm) - Depth 0.1 -Total Square (Post) (cm) 0.25 -Area of Debridement (cm) - Length 0.5 -Area of Debridement (cm) - Width 0.5 -Total Square (Area) (cm) 0.25 -Tunneling No -Undermining/Tunneling No -Circular Undermining No -Wound/Ulcer Outcome Not Healed -Ulcer Cleansing Rinsed/ Irrigated with Saline -Foul Odor after Cleansing No -Bioengineered Tissue No -Bleeding Controlled with Pressure -Treatment Response Procedure Tolerated Well -Offloading No -Debridement - Subq, 1st 20sq cm Yes Pain Scale: 0-10 Numeric Is Patient Pain Free? Yes Additional Wound Wound debrided: Right buttock Wound Grade/Stage: Stage II Type of Debridement: Excisional debridement Anesthesia Used: 5% Lidocaine Gel Depth: Down to and including healthy tissue and in the subcutaneous layer Percentage of wound debrided: 100 Instrument Used: 3mm curette Tissue Removed: Slough and devitalized tissue Amount of bleeding with debridement: Mild Bleeding Controlled with: Pressure Patient tolerated procedure: Patient tolerated procedure well Assessment/Plan Assessment/Plan (1) Pressure ulcer of right buttock, stage 2: CODE(S): L89.312 - Pressure ulcer of right buttock, stage 2 (2) Pressure ulcer of left buttock, stage 2: CODE(S): L89.322 - Pressure ulcer of left buttock, stage 2 (3) DM type 2 (diabetes mellitus, type 2): CODE(S): E11.9 - Type 2 diabetes mellitus without complications PLAN: Plan Debridement done as documented above, procedure was well-tolerated. As above, recently restarted physical therapy and she is hopeful that she could lay somewhat. Has ordered a hospital bed which should arrive shortly. Continue lightly moistened Promogran, cover with Adaptic and foam dressing, change daily to twice daily depending on drainage. Continue offloading as best as possible, optimal protein intake and diabetes control. Her questions were answered and she was advised to call with any further questions or concerns. Follow-up in 2 weeks due to inconvenience with visits and back pain. This note was generated with [employer] dictation software. It may contain incorrect words, spelling, and punctuation that were not noted in checking the note before signing.
[2025-05-10 08:33] VITALS: BP 179/78; PULSE 91; RESP 16; TEMP 36.3; O2SAT 100
--- NOTE | 2025-05-10 09:09 | PN.PCM_ITS ---
History of Present Illness Date of Service: 05/10/25 Chief Complaint: Bilateral Buttock Ulcer History of Wound: Ms. Baron is a 74-year-old referred to the wound center due to nonhealing bilateral buttock ulcers. History of spine surgery in January and since then, has had difficulty laying flat in bed and so has been sleeping in a recliner. Noted the area of ulceration a few weeks ago and since then, following a visit with her PCP a week ago has been applying Medihoney without significant improvement. Denies incontinent bowel movements. History of diabetes and last A1c was at 6.5. Appetite is good. Has been attempting to offload since she noted the ulceration. Feels well otherwise. Progress of Wound: No acute concerns at this time. Right buttock with minimal area left and left with no significant change. Still not able to lay in bed and sits most of the time. Appetite is good. Objective Data Objective Data Vital Signs: Vital Signs Temp Pulse Resp BP Pulse Ox O2 Del Method 97.3 F L 91 16 179/78 H 100 Room Air 05/10/25 08:33 05/10/25 08:33 05/10/25 08:33 05/10/25 08:33 05/10/25 08:33 05/10/25 08:33 Oxygen Delivery Method Room Air Charges/Coding Procedures Integumentary 111xxx-113xx: [id number] Dahlia subq tissue 20 sq cm/< Physical Exam Const alert, oriented x3 and no apparent distress General Appearance: cooperative, comfortable and well kempt HEENT normocephalic and head/scalp atraumatic Eyes EOMs intact bilaterally Neck full ROM and supple General: normal visual inspection Resp normal respiratory effort Effort and Inspection: able to speak in complete sentences Skin Wounds: wounds noted size Size: See clinical note, bed granulating well, margins well approximated, no odor and surrounding erythema Neuro oriented x3, CN's II-XII intact bilaterally, moves all extremities and no focal motor deficits Psych mental status grossly normal, thought process normal, cooperative, affect normal and speech normal Debridement Note Debridement Note Wound debrided: Left buttock Wound Grade/Stage: Stage II Type of Debridement: Excisional debridement Anesthesia Used: 4% Lidocaine Solution Depth: Down to and including healthy tissue and in the subcutaneous layer Percentage of wound debrided: 100 Instrument Used: 3mm curette Tissue Removed: Devitalized tissue Severity: Fat Layer Exposed Amount of bleeding with debridement: Mild Bleeding Controlled with: Pressure Patient tolerated procedure: Patient tolerated procedure well Post-Debridement Measurements and Additional Note: Post-Debridement Measurements/Treatment - Nurse 1 - General Ulcer Assessment Start: 04/26/25 08:52 Freq: Status: Active Protocol: JUAN [email or web address].LOWEXT Activity Type Activity Date Activity User E-sign Co-sign Detail Recorded Client Recorded Date Recorded By Document 04/26/25 08:52 KW [id number] 04/26/25 08:59 KW Document 05/10/25 08:33 LOUIS [id number] 05/10/25 08:51 LOUIS 04/26/25 05/10/25 08:52 08:33 WC - Today's Visit Information Type of service Follow-up Visit Follow-up Visit (Physician/INTERNATIONAL LOGISTICS MANAGER (Physician/INTERNATIONAL LOGISTICS MANAGER ) ) Arrival Mode Wheelchair Walker Transfer Assistance None Patient Identification Verified (Name & Yes Yes ) Patient Requires Transmission-Based No Precautions Safety Precautions Fall Prevention Vital Signs Temperature (97.8 F-99.1 F) 97.4 F L 97.3 F L Temperature Source Temporal Temporal Pulse Rate (60-100) 93 91 Pulse Location Monitor Monitor Respiratory Rate (12-18) 18 16 Respiratory rate source Observation Pulse Oximetry 100 Oxygen Delivery Method Room Air Blood Pressure (90/60-120/80) 141/74 H 179/78 H Blood Pressure Mean (mm Hg) 96 111 Source Monitor Monitor Position Sitting Sitting Blood Pressure Location Right Arm Left Arm History Since Last Visit- (Skip if this is Patient's initial visit) Have you changed medications since your No No last visit? Any new allergies or adverse reactions No No Had a fall/change in ADL's that may No No increase risk of falls Signs or symptoms of abuse and/or No No neglect since last visit Have you been in the hospital since your No No last visit? Has dressing in place as prescribed Yes Yes Has compression in place as prescribed N/A N/A Has offloadiing in place as prescribed N/A N/A Experienced any changes in pain level or No No management Left Footwear Regular Shoe Regular Shoe Right Footwear Regular Shoe Regular Shoe Pain Scale: 0-10 Numeric Is Patient Pain Free? Yes No lt buttock -Description Aching -Intensity 5 -Duration (hours) Chronic -Pain Behavior No Change in Behavior -Alleviating Factors/Interventions Turning/ Repositioning - Nurse 1 - General Ulcer Measurement Start: 04/26/25 08:52 Freq: Status: Active Protocol: Activity Type Activity Date Activity User E-sign Co-sign Detail Recorded Client Recorded Date Recorded By Document 04/26/25 08:52 KW [id number] 04/26/25 08:59 Document 05/10/25 08:33 LOUIS [id number] 05/10/25 08:51 LOUIS 04/26/25 05/10/25 08:52 08:33 Wound Center Nurse 1 #2- R BUTTOCK CLUSTER -Current Size (cm) - Length 0.2 0.2 -Current Size (cm) - Width 0.2 0.2 -Current Size (cm) - Depth 0.1 0.1 -Total Square Cm 0.04 0.04 -Date of Last Picture (Recall this 05/10/25 field) -Photo Taken Yes -Tunneling No -Undermining/Tunneling No -Circular Undermining No -Exudate Amt Small None Present -Exudate Type Serosanguineous -Wound Margin Distinct, Distinct, Outline Outline Attached Attached -Granulation Amt Large (67-100%) None Present (0 %) -Granulation Quality [place] -Slough/Fibrin No -Necrosis Amt None Present (0 %) -Structure Exposed None/Limited to Skin Breakdown -Texture (Yahaira-wound Skin Appearance) Assessed No Abnormality, Assessed -Moisture (Yahaira-wound Skin Appearance) Assessed No Abnormality, Assessed -Color (Yahaira-wound Skin Appearance) Assessed No Abnormality, Assessed -Temperature (Yahaira-wound Skin No Abnormality No Abnormality Appearance) (Pt Warm) (Pt Warm) -Tenderness on Palpation (Yahaira-wound No No Skin Appearance) -Ulcer Cleansing Rinsed/ Rinsed/ Irrigated with Irrigated with Saline Saline -Foul Odor after Cleansing No No -Anesthetic Used 5% Lidocaine 5% Lidocaine Gel Gel #1 L BUTTOCK CLUSTER -Current Size (cm) - Length 0.5 0.5 -Current Size (cm) - Width 0.5 0.5 -Current Size (cm) - Depth 0.1 0.1 -Total Square Cm 0.25 0.25 -Date of Last Picture (Recall this 04/26/25 05/10/25 field) -Photo Taken Yes -Tunneling No -Undermining/Tunneling No -Circular Undermining No -Exudate Amt Small Small -Exudate Type Serosanguineous Sanguineous -Wound Margin Distinct, Distinct, Outline Outline Attached Attached -Granulation Amt Medium (34-66%) Large (67-100%) -Granulation Quality [place] -Slough/Fibrin No -Necrosis Amt Small (1-33%) Small (1-33%) -Necrotic Tissue Type Adherent Slough Adherent Slough -Structure Exposed None/Limited to Skin Breakdown -Texture (Yahaira-wound Skin Appearance) Assessed Localized Edema -Moisture (Yahaira-wound Skin Appearance) Assessed No Abnormality, Assessed -Color (Yahaira-wound Skin Appearance) Assessed No Abnormality, Assessed -Temperature (Yahaira-wound Skin No Abnormality No Abnormality Appearance) (Pt Warm) (Pt Warm) -Tenderness on Palpation (Yahaira-wound No No Skin Appearance) -Ulcer Cleansing Rinsed/ Rinsed/ Irrigated with Irrigated with Saline Saline -Foul Odor after Cleansing No No -Anesthetic Used 5% Lidocaine 5% Lidocaine Gel Gel Lower Limb Edema Present NA WC - Nurse 2 - General Ulcer CM Notes Start: 04/26/25 08:52 Freq: Status: Active Protocol: Activity Type Activity Date Activity User E-sign Co-sign Detail Recorded Client Recorded Date Recorded By Document 04/26/25 09:10 [id number] 04/26/25 09:15 04/26/25 09:10 Wound Center Nurse 2 #2- R BUTTOCK CLUSTER -Time 09:11 -Correct Patient Yes -Correct Side, Site, Position Yes -Correct Procedure Yes -Procedure Performed Yes -Type of Procedure Debridement -Clinical Debridement Subcutaneous -Tissue Removed Subcutaneous -Post Debridement (cm) - Length 0.3 -Post Debridement (cm) - Width 0.2 -Post Debridement (cm) - Depth 0.1 -Total Square (Post) (cm) 0.06 -Area of Debridement (cm) - Length 0.3 -Area of Debridement (cm) - Width 0.2 -Total Square (Area) (cm) 0.06 -Tunneling No -Undermining/Tunneling No -Circular Undermining No -Wound/Ulcer Outcome Not Healed -Ulcer Cleansing Rinsed/ Irrigated with Saline -Foul Odor after Cleansing No -Bioengineered Tissue No -Bleeding Controlled with Pressure -Treatment Response Procedure Tolerated Well -Offloading No -Debridement - Subq, 1st 20sq cm No #1 L BUTTOCK CLUSTER -Time 09:11 -Correct Patient Yes -Correct Side, Site, Position Yes -Correct Procedure Yes -Procedure Performed Yes -Type of Procedure Debridement -Clinical Debridement Subcutaneous -Tissue Removed Subcutaneous -Post Debridement (cm) - Length 0.5 -Post Debridement (cm) - Width 0.5 -Post Debridement (cm) - Depth 0.1 -Total Square (Post) (cm) 0.25 -Area of Debridement (cm) - Length 0.5 -Area of Debridement (cm) - Width 0.5 -Total Square (Area) (cm) 0.25 -Tunneling No -Undermining/Tunneling No -Circular Undermining No -Wound/Ulcer Outcome Not Healed -Ulcer Cleansing Rinsed/ Irrigated with Saline -Foul Odor after Cleansing No -Bioengineered Tissue No -Bleeding Controlled with Pressure -Treatment Response Procedure Tolerated Well -Offloading No -Debridement - Subq, 1st 20sq cm Yes Pain Scale: 0-10 Numeric Is Patient Pain Free? Yes - Nurse 3 - General Ulcer D/C NN Start: 04/26/25 08:52 Freq: Status: Active Protocol: Activity Type Activity Date Activity User E-sign Co-sign Detail Recorded Client Recorded Date Recorded By Document 04/26/25 09:30 [id number] 04/26/25 09:31 04/26/25 09:30 Wound Care Center Nurse 3 #2- R BUTTOCK CLUSTER -Ulcer Cleansing Not Cleansed -Foul Odor after Cleansing No -Primary Dressing Applied NonAdherent Contact Layer, Promogran, Silicone Border Foam 4x4 -Promogran 1 -Silicone Border Foam 4x4 1 #1 L BUTTOCK CLUSTER -Ulcer Cleansing Not Cleansed -Primary Dressing Applied Silicone Border Foam 4x4 -Other Covering used part of the promogran -Silicone Border Foam 4x4 1 Pain Scale: 0-10 Numeric Is Patient Pain Free? Yes - Visit Discharge Discharge Condition Stable Ambulatory Status Ambulatory Transportation Private Auto Assessment/Plan Assessment/Plan (1) Pressure ulcer of right buttock, stage 2: CODE(S): L89.312 - Pressure ulcer of right buttock, stage 2 (2) Pressure ulcer of left buttock, stage 2: CODE(S): L89.322 - Pressure ulcer of left buttock, stage 2 (3) DM type 2 (diabetes mellitus, type 2): CODE(S): E11.9 - Type 2 diabetes mellitus without complications PLAN: Plan Debridement done as documented above, procedure was well-tolerated. Right with minimal area left. Left buttock with no significant change since the last visit. Still not able to lay in bed as above. Continues to work with physical therapy and overall, feels stronger. Continue lightly moistened Promogran, cover with Adaptic and foam dressing, change daily to twice daily depending on drainage. To the right buttock, Adaptic and foam dressing. Continue offloading as best as possible, optimal protein intake and diabetes control. Her questions were answered and she was advised to call with any further questions or concerns. Follow-up in 2 weeks due to inconvenience with visits and back pa in. This note was generated with [employer] dictation software. It may contain incorrect words, spelling, and punctuation that were not noted in checking the note before signing.
--- NOTE | 2025-05-10 14:48 | WC ---
PHOTO-RIGHT BUTTOCK/LEFT BUTTOCK 05/10/25
--- NOTE | 2025-05-10 14:54 | WC ---
PHOTO-R/L BUTTOCK 05/10/25
== END 2025-05-15 23:59 | disposition home or self-care (01) ==
LOC: WC 08:30
PROVIDERS: PCP Family Medicine; Referring Provider Family Medicine; Visit Provider Internal Medicine
DX: E11.622 Type 2 diabetes mellitus with other skin ulcer (principal); L89.322 Pressure ulcer of left buttock, stage 2; L89.312 Pressure ulcer of right buttock, stage 2
CPT/HCPCS: 11042

== ENCOUNTER 2025-06-07 08:26 | Outpatient (RCR) | payer MEDICARE, SELFPAY ==
[2025-06-07 08:45] VITALS: BP 197/70; PULSE 85; RESP 16; TEMP 36.6
--- NOTE | 2025-06-07 09:32 | PCM.WC.PN ---
History of Present Illness Date of Service: 06/07/25 Chief Complaint: Bilateral Buttock Ulcer History of Wound: Ms. Baron is a 74-year-old referred to the wound center due to nonhealing bilateral buttock ulcers. History of spine surgery in January and since then, has had difficulty laying flat in bed and so has been sleeping in a recliner. Noted the area of ulceration a few weeks ago and since then, following a visit with her PCP a week ago has been applying Medihoney without significant improvement. Denies incontinent bowel movements. History of diabetes and last A1c was at 6.5. Appetite is good. Has been attempting to offload since she noted the ulceration. Feels well otherwise. Progress of Wound: Healed, no new concerns reported at this time. Has been able to sleep in a bed for at least 4-1/2 hours. Physical therapy said to be going really well with overall less spasms. Objective Data Objective Data Vital Signs: Vital Signs Temp Pulse Resp BP 97.8 F 85 16 197/70 H 06/07/25 08:45 06/07/25 08:45 06/07/25 08:45 06/07/25 08:45 Charges/Coding Visit Charges Office Visits / Consults: [id number] OV L3 Est 20min Physical Exam Const alert, oriented x3 and no apparent distress General Appearance: cooperative, comfortable and well kempt HEENT normocephalic and head/scalp atraumatic Eyes EOMs intact bilaterally Neck full ROM and supple General: normal visual inspection Resp normal respiratory effort Effort and Inspection: able to speak in complete sentences Skin General Skin Exam: erythema Neuro oriented x3, CN's II-XII intact bilaterally, moves all extremities and no focal motor deficits Psych mental status grossly normal, thought process normal, cooperative, affect normal and speech normal Debridement Note Debridement Note Post-Debridement Measurements and Additional Note: Post-Debridement Measurements/Treatment WC - Nurse 1 - General Ulcer Assessment Start: 06/07/25 08:45 Freq: Status: Active Protocol: SOM Activity Type Activity Date Activity User E-sign Co-sign Detail Recorded Client Recorded Date Recorded By Document 06/07/25 08:45 TS [id number] 06/07/25 08:49 TS 06/07/25 08:45 - Today's Visit Information Type of service Follow-up Visit (Physician/CD STORAGE AND MATERIALS MAKE UP HELPER ) Arrival Mode Ambulatory Transfer Assistance None Patient Identification Verified (Name & Yes ) Patient Requires Transmission-Based No Precautions Vital Signs Temperature (97.8 F-99.1 F) 97.8 F Temperature Source Temporal Pulse Rate (60-100) 85 Pulse Location Monitor Respiratory Rate (12-18) 16 Respiratory rate source Observation Blood Pressure (90/60-120/80) 197/70 H Blood Pressure Mean (mm Hg) 112 Source Monitor Position Sitting Blood Pressure Location Right Arm History Since Last Visit- (Skip if this is Patient's initial visit) Have you changed medications since your No last visit? Any new allergies or adverse reactions No Had a fall/change in ADL's that may No increase risk of falls Signs or symptoms of abuse and/or No neglect since last visit Has dressing in place as prescribed Yes Has compression in place as prescribed N/A Has offloadiing in place as prescribed N/A Experienced any changes in pain level or No management Left Footwear Regular Shoe Right Footwear Regular Shoe Pain Scale: 0-10 Numeric Is Patient Pain Free? Yes WC - Nurse 1 - General Ulcer Measurement Start: 06/07/25 08:45 Freq: Status: Active Protocol: Activity Type Activity Date Activity User E-sign Co-sign Detail Recorded Client Recorded Date Recorded By Document 06/07/25 08:45 TS [id number] 06/07/25 08:49 TS 06/07/25 08:45 Wound Center Nurse 1 #2- R BUTTOCK CLUSTER -Combined with other wound No -Current Size (cm) - Length 0.1 -Current Size (cm) - Width 0.1 -Current Size (cm) - Depth 0.1 -Total Square Cm 0.01 -Photo Taken Yes -Epithelialization Large 67-100% -Tunneling No -Undermining/Tunneling No -Exudate Amt None Present -Wound Margin Indistinct, Non -Visible -Granulation Amt Large (67-100%) -Granulation Quality [place] -Slough/Fibrin No -Necrosis Amt None Present (0 %) -Structure Exposed None/Limited to Skin Breakdown -Texture (Yahaira-wound Skin Appearance) No Abnormality -Moisture (Yahaira-wound Skin Appearance) No Abnormality -Color (Yahaira-wound Skin Appearance) No Abnormality -Temperature (Yahaira-wound Skin No Abnormality Appearance) (Pt Warm) -Ulcer Cleansing Rinsed/ Irrigated with Saline -Anesthetic Used 5% Lidocaine Gel #1 L BUTTOCK CLUSTER -Combined with other wound No -Current Size (cm) - Length 0.1 -Current Size (cm) - Width 0.1 -Current Size (cm) - Depth 0.1 -Total Square Cm 0.01 -Photo Taken Yes -Epithelialization Large 67-100% -Tunneling No -Undermining/Tunneling No -Exudate Amt None Present -Wound Margin Indistinct, Non -Visible -Granulation Amt None Present (0 %) -Slough/Fibrin No -Necrosis Amt None Present (0 %) -Structure Exposed None/Limited to Skin Breakdown -Texture (Yahaira-wound Skin Appearance) No Abnormality -Moisture (Yahaira-wound Skin Appearance) No Abnormality -Color (Yahaira-wound Skin Appearance) No Abnormality -Temperature (Yahaira-wound Skin No Abnormality Appearance) (Pt Warm) -Tenderness on Palpation (Yahaira-wound No Skin Appearance) -Ulcer Cleansing Rinsed/ Irrigated with Saline -Anesthetic Used 5% Lidocaine Gel WC - Nurse 2 - General Ulcer CM Notes Start: 06/07/25 08:45 Freq: Status: Active Protocol: Activity Type Activity Date Activity User E-sign Co-sign Detail Recorded Client Recorded Date Recorded By Document 06/07/25 09:02 [id number] 06/07/25 09:06 06/07/25 09:02 Wound Center Nurse 2 #2- R BUTTOCK CLUSTER -Time 09:03 -Correct Patient Yes -Correct Side, Site, Position Yes -Correct Procedure No -Procedure Performed No -Tunneling No -Undermining/Tunneling No -Circular Undermining No -Wound/Ulcer Outcome Healed- Epithelialized -Ulcer Cleansing Not Cleansed -Foul Odor after Cleansing No -Bioengineered Tissue No -Bleeding Controlled with Pressure -Treatment Response Procedure Tolerated Well -Offloading No #1 L BUTTOCK CLUSTER -Time 09:02 -Correct Patient Yes -Correct Side, Site, Position Yes -Correct Procedure No -Procedure Performed No -Tunneling No -Undermining/Tunneling No -Circular Undermining No -Wound/Ulcer Outcome Healed- Epithelialized -Ulcer Cleansing Rinsed/ Irrigated with Saline -Foul Odor after Cleansing No -Bioengineered Tissue No Pain Scale: 0-10 Numeric Is Patient Pain Free? Yes JUAN JOSÉ - Nurse 3 - General Ulcer D/C NN Start: 06/07/25 08:45 Freq: Status: Active Protocol: Activity Type Activity Date Activity User E-sign Co-sign Detail Recorded Client Recorded Date Recorded By Document 06/07/25 09:19 [id number] 06/07/25 09:23 TS 06/07/25 09:19 Wound Care Center Nurse 3 #2- R BUTTOCK CLUSTER -Ulcer Cleansing Rinsed/ Irrigated with Saline -Primary Dressing Applied NonAdherent Contact Layer, Silicone Border Foam 4x4 -Silicone Border Foam 4x4 1 #1 L BUTTOCK CLUSTER -Ulcer Cleansing Rinsed/ Irrigated with Saline -Primary Dressing Applied NonAdherent Contact Layer -Other Dressing border foam Treatment Response Procedure Tolerated Well Pain Scale: 0-10 Numeric Is Patient Pain Free? Yes WC - Visit Discharge Discharge Condition Stable Ambulatory Status Ambulatory Transportation Private Auto Accompanied by Medication Reconcilliation completed & No provided to patient/care provider Clinical Summary of Care Provided Yes Assessment/Plan Assessment/Plan (1) Pressure ulcer of right buttock, stage 2: CODE(S): L89.312 - Pressure ulcer of right buttock, stage 2 (2) Pressure ulcer of left buttock, stage 2: CODE(S): L89.322 - Pressure ulcer of left buttock, stage 2 (3) DM type 2 (diabetes mellitus, type 2): CODE(S): E11.9 - Type 2 diabetes mellitus without complications PLAN: Plan Essentially healed, very very minimal area left. Some surrounding erythema. As above, able to sleep for at least 1/2-hour in bed now. Moisturize adequately with Vaseline or Aquaphor, cover both areas with Adaptic and foam dressing for offloading/protection. Continue offloading as best as possible, optimal protein intake and diabetes control. Her questions were answered and she was advised to call with any further questions or concerns. Discharged from the wound center This note was generated with [employer] software. It may contain incorrect words, spelling, and punctuation that were not noted in checking the note before signing.
--- NOTE | 2025-06-08 10:04 | WC ---
PHOTO-L/R [email or web address] 06/07/25
== END 2025-06-15 23:59 | disposition home or self-care (01) ==
LOC: WC 08:26
PROVIDERS: PCP Family Medicine; Referring Provider Family Medicine; Visit Provider Internal Medicine
DX: L89.312 Pressure ulcer of right buttock, stage 2 (principal); L89.322 Pressure ulcer of left buttock, stage 2; E11.9 Type 2 diabetes mellitus without complications
CPT/HCPCS: 99213; G0463

== ENCOUNTER 2025-07-09 14:30 | Outpatient (RCR) | payer MEDICARE, SELFPAY ==
--- NOTE | 2025-02-26 10:41 | HP.PTEVAL_ITS ---
Patient's Visit Information Visit Information Visit Information: JANESSA TORREZ is a 74 year old F referred to Physical Therapy by Dr. Dominic Issa MD with a diagnosis of L4/L5 instrumented lumbar fusion. DOS: 01/31/25. Date of Evaluation: 02/22/25 Physical Therapist: Jonathan Melgoza DPT Visit Plan Frequency: 2x /Week Duration: 6 Weeks Plan: Pt. has high levels of pain currently. Pt. was unable to lie down today during eval. Our first goal is to reduce pain with use of modalities and slight progression of mobility. 1) IFC, ice to lumbar spine. Pt. does have a home unit, if using at home progr ess to home. 2) progress walking routine 3) light lumbar strengthening, may need to start standing/seated vs lying down due to pain. Subjective Subjective: Pt. is here today for her initial evaluation with diagnosis of L4/L5 instrumented lumbar fusion. DOS: 01/31/25. Pt. reports overall still having some sciatic pain down both legs L worse than R. Pt. reports reports the pain goes to level of knee at times. Pt. is still having some issues with sleeping. She typically lies on her side (R side). Pt. reports no falls since surgery. Pt. reports leg weakness. No changes changes in B/E at this point in time. Pt. is taking some oxy as well for a few weeks to reduce symptoms. Pt. to follow back up with physician in 3 weeks or so. Pt. 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 Pt. would like to get back and ready for grand daughter wedding in May. Pain Lumbar spine: Pain Intensity (Out of 10): 8 Objective Objective: POSTURE: Pt. has general slight flexed posture. Normal SUZETTE in stance. Pt. has increased pain in stance as well. PALPATION: Pt. has healing incisions, R side incision is a little red, but pt. reports being better than before. NEURO: normal sensation and normal DTR of BLEs. ROM: Limited lumbar spine ROM secondary to pain. Pt. has decreased HS ROM and decreased B hip ROM. MMT: Pt. has normal distal LEs strength bilaterally. Pt. was in a lot of pain and was unable to lie down today, unable to check hip strength. GAIT: Pt. ambulates with cane with good tolerance. She can ambulate without as well, but more cautious with her movement. Balance/Special Test Scores Oswestry Low Back Score: 26 TUG Test Time Seconds: 18 30 Second Chair Rise Test Seconds: 4 Goals Goal 1:: LTG: Pt. to be I with HEP. Goal Time Frame: 4-6 Weeks Goal 2:: LTG: Pt. to have pain decreased to 2/10 throughout lumbar spine abd BLEs. Goal Time Frame: 2-4 Weeks Goal 3:: LTG: Pt. to report no distal LE symptoms. Goal Time Frame: 2-4 Weeks Goal 4:: LTG: pt. to have 5/5 BLE strength and hip/core strength. Goal Time Frame: 4-6 Weeks Goal 5:: LTG: Pt to be able to walk without increase in symptoms. Goal Time Frame: 4-6 Weeks Goal 6:: LTG: Pt. to sleep without increase in low back pain. Goal Time Frame: 4-6 Weeks Rehabilitation Potential Physical Therapy Diagnosis: Pt. has signs and symptoms consistent with L4/L5 instrumented lumbar fusion. DOS: 01/31/25. Pt. has marked hypomobility, weakness, but currently she has marked pain limiting her with most of her activities. Rehabilitation Potential: Good Anticipated Interventions Patient/Client Instruction: Educate patient on: Condition, Plan of Care, Risk Factors and Benefits of Fitness Program For the Purpose of:: To improve health and function, To foster healthy habits, To improve decision making, To facilitate caregiver knowledge, To improve self management, To prevent re-injury and To improve ability to perform tasks related to life management Therapeutic Exercise to Include: Strength training, Power training, Postural training, Flexibilty training, Passive ROM and Active ROM For the Purpose of:: To decrease pain, To decrease swelling/inflammation, To increase ROM, To improve nutrient delivery to tissue, To increase oxygenation perfusion and To improve muscle performance and motor function IF ES: Yes Cryotherapy (ice pack, ice massage): Yes For the Purpose of:: To decrease pain, To decrease swelling/inflammation, To increase ROM, To improve nutrient delivery to tissue, To increase oxygenation perfusion and To improve muscle performance and motor function Text: Thank you for the opportunity to evaluate your patient. For Medicare and Medicare HMO plans, please review the plan of care and approve it. It will need to be FAXED BACK to us at [phone] for Medicare purposes. For Medicare only, by signing this I certify the plan of care. Please let me know if there are questions or concerns regarding this plan of care. Physician Signature: Date:
--- NOTE | 2025-04-09 15:01 | HP.PTREVAL ---
Re-Evaluation Intro: Dr. Dominic Issa MD, It has been my pleasure to treat JANESSA TORREZ over the last 7 visits for L4/L5 instrumented lumbar fusion. DOS: 01/31/25. Please see the progress note below for an update on the physical therapy plan of care! Subjective Subjective: Pt. is here today for her reheck. Pt. reports overall still having a lot of pain. She is getting around better. Pt. is c/o increased buttock pain. Spouse reports having some skin issues. It is being treated by physician, no wound center yet. Pt. is still having a very tough time trying to lie down. Objective Objective/Function: LUMBAR SPINE: flexion mod/max loss, extension mod/max loss. Pt. reports increased back pain limiting further ROM. Pt. is able to ambulate with rollator. She has better tolerance, but still very apprehensive with her movements. She has a little but better upright posture with gait. Pt. reports walking tends to be better than sitting. Pt. fatigues quickly with gait. She was able to ambulate 175' with rollator today. Sit to stands heavy use of UEs, but no increase in LBP. Pts. incision is doing well, she does have some slight skin breakdown at lower sacrum. This is being addressed by her physician. She still can not lie down at all due to large amounts of pain. This is her largest complaint currently. She continues to have marked muscle spasming in her lumbar erector spinae. LE strength: ankle/knee 4+/5 throughout; hip: 3+/5 increase in symptoms. Core strength: poor. Overall she is very limited with her mobility. She is sitting alot at home due to pain, and unable to lie down due to her pain. I would like to continue with Pt to work on her mobility and reduce the muscle spasming in her lumbar spine. Plan Plan Plan: I am asking for more visits x2 a week for 4 weeks. Focus on Lumbar erector spinae muscle spams, core strengthening, general mobility. Balance/Gait/Functional tests Balance/Special Test Scores Oswestry Low Back Score: 26 TUG Test Time Seconds: 18 Tug Test: <20 sec.=mostly independent 30 Second Chair Rise Test Seconds: 4 Goals Goals Goal 1:: LTG: Pt. to be I with HEP. Goal Time Frame: 4-6 Weeks Goal Progress: Progressing Goal 2:: LTG: Pt. to have pain decreased to 2/10 throughout lumbar spine abd BLEs. Goal Time Frame: 2-4 Weeks Goal Progress: Progressing Goal 3:: LTG: Pt. to report no distal LE symptoms. Goal Time Frame: 2-4 Weeks Goal Progress: Goal Met Goal 4:: LTG: pt. to have 5/5 BLE strength and hip/core strength. Goal Time Frame: 4-6 Weeks Goal Progress: Progressing Goal 5:: LTG: Pt to be able to walk without increase in symptoms. Goal Time Frame: 4-6 Weeks Goal Progress: Progressing Goal 6:: LTG: Pt. to sleep without increase in low back pain. Goal Time Frame: 4-6 Weeks Goal Progress: Not Progressing Anticipated Interventions Anticipated Interventions Patient/Client Instruction: Educate patient on: Condition, Plan of Care, Risk Factors and Benefits of Fitness Program For the Purpose of:: To improve health and function, To foster healthy habits, To improve decision making, To facilitate caregiver knowledge, To improve self management, To prevent re-injury and To improve ability to perform tasks related to life management Therapeutic Exercise to Include: Strength training, Power training, Postural training, Flexibilty training, Passive ROM and Active ROM For the Purpose of:: To decrease pain, To decrease swelling/inflammation, To increase ROM, To improve nutrient delivery to tissue, To increase oxygenation perfusion and To improve muscle performance and motor function IF ES: Yes Cryotherapy (ice pack, ice massage): Yes For the Purpose of:: To decrease pain, To decrease swelling/inflammation, To increase ROM, To improve nutrient delivery to tissue, To increase oxygenation perfusion and To improve muscle performance and motor function Re-Evaluation Ending Re-evaluation ending: Please do not hesitate to contact me at [phone] by phone or if you have questions or concerns regarding this new plan of care! Sincerely, Jonathan Melgoza DPT
--- NOTE | 2025-05-08 15:10 | HP.PTREVAL ---
Re-Evaluation Intro: Dr. Dominic Issa MD, It has been my pleasure to treat JANESSA TORREZ over the last 13 visits for L4/L5 instrumented lumbar fusion. DOS: 01/31/25. Please see the progress note below for an update on the physical therapy plan of care! Subjective Subjective: Pt. reports overall doing better. Pt. was able to lie down for 45' this morning with good tolerance, but at that time she had to get back up has she was standing to increase increased pain. Pt. reports most pain in in her legs and buttock. Not much pain in her back. Objective Objective/Function: ROM: Lumbar spine: flexion mod loss, ext mod loss decrease in symptoms with trunk extension. GAIT: pt. continues to ambulate with SPC. She does have much gaurded posture with minimal arm swing. She is doing well with SPC. Pt. has tight hip flexors and tight HS as well. She is moving much better than she was at her last recheck. She is doing better with lying down, but is still limited. Pt. is improving, but is still limited with her pain and overall mobility. MMT: 4+/5 BLEs distally, hip flex 4/5, abd 4/5. Core strength: poor. Plan Plan Plan: I would recommend that she continue with PT to work on BLE, core strengthening then work on ROM exercises to increase tolerance to all activities, including lying down and ADls. I am asking for 12 more visits to progress her general mobility and strengthening. Balance/Gait/Functional tests Balance/Special Test Scores Oswestry Low Back Score: 19 TUG Test Time Seconds: 18 Tug Test: <20 sec.=mostly independent 30 Second Chair Rise Test Seconds: 4 Goals Goals Goal 1:: LTG: Pt. to be I with HEP. Goal Time Frame: 4-6 Weeks Goal Progress: Progressing Goal 2:: LTG: Pt. to have pain decreased to 2/10 throughout lumbar spine abd BLEs. Goal Time Frame: 2-4 Weeks Goal Progress: Progressing Goal 3:: LTG: Pt. to report no distal LE symptoms. Goal Time Frame: 2-4 Weeks Goal Progress: Goal Met Goal 4:: LTG: pt. to have 5/5 BLE strength and hip/core strength. Goal Time Frame: 4-6 Weeks Goal Progress: Progressing Goal 5:: LTG: Pt to be able to walk without increase in symptoms. Goal Time Frame: 4-6 Weeks Goal Progress: Progressing Goal 6:: LTG: Pt. to sleep without increase in low back pain. Goal Time Frame: 4-6 Weeks Goal Progress: Progressing Anticipated Interventions Anticipated Interventions Patient/Client Instruction: Educate patient on: Condition, Plan of Care, Risk Factors and Benefits of Fitness Program For the Purpose of:: To improve health and function, To foster healthy habits, To improve decision making, To facilitate caregiver knowledge, To improve self management, To prevent re-injury and To improve ability to perform tasks related to life management Therapeutic Exercise to Include: Strength training, Power training, Postural training, Flexibilty training, Passive ROM and Active ROM For the Purpose of:: To decrease pain, To decrease swelling/inflammation, To increase ROM, To improve nutrient delivery to tissue, To increase oxygenation perfusion and To improve muscle performance and motor function IF ES: Yes Cryotherapy (ice pack, ice massage): Yes For the Purpose of:: To decrease pain, To decrease swelling/inflammation, To increase ROM, To improve nutrient delivery to tissue, To increase oxygenation perfusion and To improve muscle performance and motor function Re-Evaluation Ending Re-evaluation ending: Please do not hesitate to contact me at [phone] by phone or if you have questions or concerns regarding this new plan of care! Sincerely, Jonathan Melgoza DPT
--- NOTE | 2025-06-11 08:41 | HP.PTREVAL ---
Re-Evaluation Intro: Dr. Dominic Issa MD, It has been my pleasure to treat JANESSA TORREZ over the last 20 visits for L4/L5 instrumented lumbar fusion. DOS: 01/31/25. Please see the progress note below for an update on the physical therapy plan of care! Subjective Subjective: Pt. is here today for her recheck. Overall patient reports she is turning the corner. She did have increased pain over the past few days, but believes this is due to the weather changes. Pt. has been able to sleep in her bed upto 4-5 hours now. Previously she has only been able to sleep for an hour or so. Pt. reports being 50% better overall. She still has muscle spasming but reports walking much jose antonio.r Objective Objective/Function: ROM: LUMBAR SPINE: flexion min loss increase NW, ext mod mild increase NW, SB min loss NE bilat, rotation min loss NE bilat. Pt. has tightness in B HS as well. MMT: Pt. had 4/5 strength throughout BLEs. Pt. has poor core strength. GAIT: pt. is ambulating with SPC with good tolerance. No LOB noted. Pt. was able to ambulate 500'+ with decent posture, but did have increased pain with her lumbar spine and BLEs to 6/10 bilaterally. STAIRS: PT. is able to complete with 2 HR with methodical pattern. Pt. has no myotomal issues noted today. Pt. is overall starting to progress more and more, but is still limited with her functional mobility. She has increased pain with any standing/walking greater than ~5 minutes. Now that she is able to lie down she is finally getting more rest. She is also tolerating all exercises and ambulation better. I has in the last few weeks started tolerating more LE and core strengthening exercises. I would like her to continue with PT to work on further core strengthening and mobility. She is also looking at getting an injection for her pain with pain management. Plan Plan Plan: Asking for 8 more visits to work on core and BLE strengthening allowing for more stability and tolerance with walking in community. Focus on BLE strength, core strength. Progressing to functional strengthening in order to get back to all recreational activities without limitations. Balance/Gait/Functional tests Balance/Special Test Scores Oswestry Low Back Score: 12 TUG Test Time Seconds: 18 Tug Test: <20 sec.=mostly independent 30 Second Chair Rise Test Seconds: 4 Goals Goals Goal 1:: LTG: Pt. to be I with HEP. Goal Time Frame: 4-6 Weeks Goal Progress: Goal Met Goal 2:: LTG: Pt. to have pain decreased to 2/10 throughout lumbar spine abd BLEs. Goal Time Frame: 2-4 Weeks Goal Progress: Progressing Goal 3:: NEW GOAL- LTG: Pt. to negotiate steps with 1 HR with reciprocal pattern with 3/10 lumbar spine pain allowing for increased safety entering/exiting homes and to allow for ease of travel. Goal Time Frame: 2-4 Weeks Goal Progress: Goal Met Goal 4:: LTG: pt. to have 5/5 BLE strength and hip/core strength in order to complete all stair negotiation and ADls with less lumbar spine pain. Goal Time Frame: 4-6 Weeks Goal Progress: Progressing Goal 5:: LTG: Pt to be able to walk without increase in symptoms for 20 minutes without increase symptoms less than 3/10 allowing for ability to tolerate grocery shopping. Goal Time Frame: 4-6 Weeks Goal Progress: Progressing Goal 6:: LTG: Pt. to sleep without increase in low back pain. Goal Time Frame: 4-6 Weeks Goal Progress: Progressing Anticipated Interventions Anticipated Interventions Patient/Client Instruction: Educate patient on: Condition, Plan of Care, Risk Factors and Benefits of Fitness Program For the Purpose of:: To improve health and function, To foster healthy habits, To improve decision making, To facilitate caregiver knowledge, To improve self management, To prevent re-injury and To improve ability to perform tasks related to life management Therapeutic Exercise to Include: Strength training, Power training, Postural training, Flexibilty training, Passive ROM and Active ROM For the Purpose of:: To decrease pain, To decrease swelling/inflammation, To increase ROM, To improve nutrient delivery to tissue, To increase oxygenation perfusion and To improve muscle performance and motor function IF ES: Yes Cryotherapy (ice pack, ice massage): Yes For the Purpose of:: To decrease pain, To decrease swelling/inflammation, To increase ROM, To improve nutrient delivery to tissue, To increase oxygenation perfusion and To improve muscle performance and motor function Re-Evaluation Ending Re-evaluation ending: Please do not hesitate to contact me at [phone] by phone or if you have questions or concerns regarding this new plan of care! Sincerely, ALEJANDRO AngelT
--- NOTE | 2025-07-10 10:17 | HP.PTDCSUM_ITS ---
Discharge Summary D/C summary: It has been my pleasure to treat JANESSA TORREZ referred by Dr. Dominic Issa MD, with the diagnosis of L4/L5 instrumented lumbar fusion. DOS: 01/31/25 for a total of 23 visit(s). Discharge Date: Please see the following information for a summary of their discharge status. Subjective Subjective: Pt. reports overall doing much better. Pt. reports being 75% better overall. She plans on going to local gym and walking and doing light core strengthening exercises. Pt. reports still having some pain, but much reduced. She is sleeping well Pain Lumbar spine: Pain Intensity (Out of 10): 5 bilat HS: Pain Intensity (Out of 10): 0 LE: Pain Intensity (Out of 10): 0 Overall Improvement % Improvement: 75 Objective Objective/Function: Pt. has close to full ROM of spine with out increase in s ymptoms. PT. has 5/5 strength throughout BLEs. Pt. get some increased pain with prolonged walking, but has much improved. Pt. also has some pain with increased prolonged sitting. Overall doing much better. She plans on easing back to into walking/gym program. I advised her to go slow. Pt. consents. Pt. will be DC from PT this date. Goals Goal 1:: LTG: Pt. to be I with HEP. Goal Progress: Goal Met Goal 2:: LTG: Pt. to have pain decreased to 2/10 throughout lumbar spine abd BLEs. Goal Progress: Goal Met Goal 3:: NEW GOAL- LTG: Pt. to negotiate steps with 1 HR with reciprocal pattern with 3/10 lumbar spine pain allowing for increased safety entering/exiting homes and to allow for ease of travel. Goal Progress: Goal Met Goal 4:: LTG: pt. to have 5/5 BLE strength and hip/core strength in order to complete all stair negotiation and ADls with less lumbar spine pain. Goal Progress: Progressing Goal 5:: LTG: Pt to be able to walk without increase in symptoms for 20 minutes without increase symptoms less than 3/10 allowing for ability to tolerate grocery shopping. Goal Progress: Goal Met Goal 6:: LTG: Pt. to sleep without increase in low back pain. Goal Progress: Progressing Plan Plan: Pt. will be DC from PT at this point in time. D/C Information d/c sentence: If there are questions or concerns regarding this patient's physical therapy, please feel free to call me at [phone]. Thank you for the referral of this patient. Sincerely, Jonathan Melgoza, DPT Balance/Gait/Functional tests Balance/Special Test Scores Oswestry Low Back Score: 20 TUG Test Time Seconds: 18 Tug Test: <20 sec.=mostly independent 30 Second Chair Rise Test Seconds: 4 Improvement % Improvement: 75
== END 2025-07-09 19:00 | disposition home or self-care (01) ==
LOC: PT 14:30
PROVIDERS: PCP Family Medicine; Referring Provider Orthopaedic Surgery Orthopaedic Surgery of the Spine; Visit Provider Orthopaedic Surgery Orthopaedic Surgery of the Spine
DX: Z98.1 Arthrodesis status (principal)
CPT/HCPCS: 97014; 97035; 97110; 97140; 97161; 97530; G0283